=== PATIENT | male | born 1945 | race Two or more races ===

== ENCOUNTER → 2020-08-01 10:05 | Outpatient (BNVA) | payer MEDICARE, SELFPAY | PROVIDERS: PCP Family Medicine; Referring Provider Family Medicine; Visit Provider Surgery | DX: K42.9 Umbilical hernia without obstruction or gangrene (principal) | CPT/HCPCS: 99203; 99214 ==

== ENCOUNTER 2020-08-23 08:37 | Day surgery (SDC) | payer MEDICARE, SELFPAY ==
[2020-08-21 21:08] VITALS: BMI 26.6
--- NOTE | 2020-08-22 12:29 | HO.ANESPROP2 ---
Documented by User: Melani Agrawal 08/22/20 13:40 HPI - Anesthesia Eval Consult details Narrative: 74yo M for Umbilical hernia repair [facility] Past Medical History Medical History (Updated 08/22/20 @ 13:40 by Melani Agrawal) Arthritis Asthma COPD (chronic obstructive pulmonary disease) GERD (gastroesophageal reflux disease) History of prostate cancer HTN (hypertension) Family History Family History Mother History of breast cancer, Onset Age: 87 Father History of asthma Surgical History Surgical History History of arthroscopy of left shoulder History of colonoscopy History of prostate surgery History of removal of cyst History of tonsillectomy and adenoidectomy Social History Social History (Updated 08/23/20 @ 09:55 by Michelle Elizabeth) Alcohol intake: former Smoking Status: Current every day smoker Packs Per Day: 0.33 Cigarettes Per Day: 6.6 Smoked in Last 30 Days: Yes Patient Interested in Nicotine Replacement: No Use of substances other than those prescribed or required for medical reasons: No Advance Directives: No Advance Directives Information Provided: No Advance Directives on File: No Meds Allergies Allergy/AdvReac Type Severity Reaction Status Date / Time lisinopril [LISINOPRIL] Allergy Severe Angioedema Verified 08/23/20 09:46 leflunomide Allergy Unknown Unknown Verified 08/23/20 09:46 LAITH inhibitors AdvReac Unknown angioedema Uncoded 08/23/20 09:46 Home Medications Medication Instructions Recorded Confirmed Type albuterol sulfate 90 mcg/actuation 2 puff INHALATION Q4H PRN 08/01/20 08/21/20 History aerosol inhaler amlodipine 5 mg tablet 5 mg PO DAILY 08/01/20 08/21/20 History atorvastatin 40 mg tablet 40 mg PO BEDTIME 08/01/20 08/21/20 History cholecalciferol (vitamin D3) 25 25 mcg PO DAILY 08/01/20 08/21/20 History mcg (1,000 unit) tablet docusate sodium 100 mg capsule 100 mg PO BID 08/01/20 08/21/20 History fluticasone propionate 220 2 puff INHALATION BID 08/01/20 08/21/20 History mcg/actuation HFA aerosol inhaler hydroxychloroquine 200 mg tablet 200 mg PO BID 08/01/20 08/21/20 History melatonin 3 mg tablet 3 mg PO BEDTIME PRN 08/01/20 08/21/20 History omeprazole 20 mg capsule,delayed 20 mg PO QAM 08/01/20 08/21/20 History release oxycodone 5 mg tablet 5 mg PO BID PRN 08/01/20 08/21/20 History prednisone 5 mg tablet 5 mg PO DAILY 08/01/20 08/21/20 History sennosides 8.6 mg tablet 17.2 mg PO BEDTIME PRN 08/01/20 08/21/20 History sulfasalazine 500 mg 1,000 mg PO BID 08/01/20 08/21/20 History tablet,delayed release tofacitinib 10 mg tablet 10 mg PO BID 08/01/20 08/21/20 History umeclidinium 62.5 mcg/actuation 1 inh INHALATION BEDTIME 08/01/20 08/21/20 History blister powder for inhalation Exam Exam Date and Time: August 22, 2020 1229 Height,Weight and Vital Signs: Height 5 ft 6 in Weight 74.843 kg Assessment and Plan Assessment Anesthesia Assessment: Chart Reviewed Documented by User: Michelle Elizabeth 08/23/20 10:36 [facility] Past Medical History Medical History (Updated 08/22/20 @ 13:40 by Melani Agrawal) Arthritis Asthma COPD (chronic obstructive pulmonary disease) GERD (gastroesophageal reflux disease) History of prostate cancer HTN (hypertension) Family History Family History Mother History of breast cancer, Onset Age: 87 Father History of asthma Family history of problems with anesthesia: No Surgical History Surgical History History of arthroscopy of left shoulder History of colonoscopy History of prostate surgery History of removal of cyst History of tonsillectomy and adenoidectomy History of Problems with Anesthesia: No Social History Social History (Updated 08/23/20 @ 09:55 by Michelle Elizabeth) Alcohol intake: former Smoking Status: Current every day smoker Packs Per Day: 0.33 Cigarettes Per Day: 6.6 Smoked in Last 30 Days: Yes Patient Interested in Nicotine Replacement: No Use of substances other than those prescribed or required for medical reasons: No Advance Directives: No Advance Directives Information Provided: No Advance Directives on File: No Meds Allergies Allergy/AdvReac Type Severity Reaction Status Date / Time lisinopril [LISINOPRIL] Allergy Severe Angioedema Verified 08/23/20 09:46 leflunomide Allergy Unknown Unknown Verified 08/23/20 09:46 LAITH inhibitors AdvReac Unknown angioedema Uncoded 08/23/20 09:46 Home Medications Medication Instructions Recorded Confirmed Type albuterol sulfate 90 mcg/actuation 2 puff INHALATION Q4H PRN 08/01/20 08/21/20 History aerosol inhaler amlodipine 5 mg tablet 5 mg PO DAILY 08/01/20 08/21/20 History atorvastatin 40 mg tablet 40 mg PO BEDTIME 08/01/20 08/21/20 History cholecalciferol (vitamin D3) 25 25 mcg PO DAILY 08/01/20 08/21/20 History mcg (1,000 unit) tablet docusate sodium 100 mg capsule 100 mg PO BID 08/01/20 08/21/20 History fluticasone propionate 220 2 puff INHALATION BID 08/01/20 08/21/20 History mcg/actuation HFA aerosol inhaler hydroxychloroquine 200 mg tablet 200 mg PO BID 08/01/20 08/21/20 History melatonin 3 mg tablet 3 mg PO BEDTIME PRN 08/01/20 08/21/20 History omeprazole 20 mg capsule,delayed 20 mg PO QAM 08/01/20 08/21/20 History release oxycodone 5 mg tablet 5 mg PO BID PRN 08/01/20 08/21/20 History prednisone 5 mg tablet 5 mg PO DAILY 08/01/20 08/21/20 History sennosides 8.6 mg tablet 17.2 mg PO BEDTIME PRN 08/01/20 08/21/20 History sulfasalazine 500 mg 1,000 mg PO BID 08/01/20 08/21/20 History tablet,delayed release tofacitinib 10 mg tablet 10 mg PO BID 08/01/20 08/21/20 History umeclidinium 62.5 mcg/actuation 1 inh INHALATION BEDTIME 08/01/20 08/21/20 History blister powder for inhalation Exam Height,Weight and Vital Signs: Vital Signs Temp Pulse Resp BP Pulse Ox 08/23/20 08:57 98.6 F 71 16 132/75 96 Airway Mallampati Class: II TM Dist: >3cm Neck ROM: Full Loose/Missing/Broken Teeth: Yes (Only few teeth-mostly broken) Heart: RRR+?systolic murmur Lungs: CTAB Assessment and Plan Assessment Anesthesia Assessment: Anesthesia Plan Discussed and Chart Reviewed Final Anesthetic Review NPO: Yes ASA Class: III Final Preanesthetic Review: No Changes in Pt Med Stat, Meds/Allgs Chart Reviewed, Consent Obtained/Reviewed and Anes Risks/Benef Reviewed Patient Risk: Intermediate Procedure Risk: Low Anesthetic Plan Disposition: Standard PACU
[2020-08-23] VITALS (15 sets, daily range): BP systolic 124–159; BP diastolic 73–95; PULSE 68–76; RESP 14–16; TEMP 36.9–37; O2SAT 93–96
[2020-08-23] MEDS: ceFAZolin Sodium/Dextrose,Iso 2 GM/50 ML PIGGYBACK IV (09:38)
[2020-08-23] MEDS: Lactated Ringers 1,000 ML 100 ML IVCONT (09:39)
--- NOTE | 2020-08-23 10:01 | MHC.SHP ---
Pre-Procedural Eval Section B Chief Complaint: Umbilical Hernia Without Obstruction or Gangrene Allergies: Allergies Allergy/AdvReac Type Severity Reaction Status Date / Time lisinopril [LISINOPRIL] Allergy Severe Angioedema Verified 08/23/20 09:46 leflunomide Allergy Unknown Unknown Verified 08/23/20 09:46 LAITH inhibitors AdvReac Unknown angioedema Uncoded 08/23/20 09:46 Plan Patient has been examined and remains a candidate for the planned procedure
--- NOTE | 2020-08-23 10:57 | PM.OP ---
Brief Operative Note Date of procedure: 08/23/20 Pre-op diagnosis: umbilical hernia Post-op diagnosis: same Procedure: repair of umbilical hernia with mesh Surgeon: Fantasma Neves MD Anesthesia: [facility] Medical Management Trainer: Aga Silva Estimated blood loss (mL): 5 Pathology: none sent Condition: stable Disposition: PACU
[2020-08-23] MEDS: fentaNYL citrate/PF 100 MCG/2 ML VIAL 25 MCG IVPUSH ×4 (11:12→11:40)
[2020-08-23] MEDS: Acetaminophen 325 MG TABLET 650 MG PO (11:41)
[2020-08-23] MEDS: oxyCODONE HCl Immed Release 5 MG TABLET PO ×2 (11:42→12:53)
--- NOTE | 2020-08-23 11:59 | OP_ITS ---
SURGEON: Fantasma Neves MD INDICATIONS: The patient is a 74-year-old male with a large reducible mass in the umbilicus, consistent with an umbilical hernia. The defect measured about almost 3 cm. He wanted to proceed with repair because of symptoms. He understood technique of repair with mesh and he was aware of the risks, benefits, and alternatives. PREOPERATIVE DIAGNOSIS: Umbilical hernia. POSTOPERATIVE DIAGNOSIS: Umbilical hernia. PROCEDURE PERFORMED: Repair of umbilical hernia with Ventralex mesh. ESTIMATED BLOOD LOSS: COMPLICATIONS: ANESTHESIA: ASSISTANTS: Aga Silva PA-C. SPECIMENS: DESCRIPTION OF PROCEDURE: He was brought to the operating room and placed supine on the table under general anesthesia via laryngeal mask airway. The abdomen was prepped and draped in usual sterile fashion. A surgical time-out was done. The patient received cefazolin 2 g IV preoperatively. A small supraumbilical curvilinear incision was made in the skin using blade #15 after infiltrated using lidocaine 1%. This was carried down to full-thickness skin and subcutaneous fat down to the fascia. We then proceeded to gently dissect the umbilicus off the hernia sac with sharp dissection using Metzenbaum scissors. We lifted the umbilicus as a flap and continued to separate the entire hernia off this. The entire sac visualized, proceeded to dissect down to the fascial defect. This was a circular defect about 3 cm in diameter. We continued to separate the entire sac and its contents off the fascial edges until I was able to completely reduce this. The underside of the fascial defect was clear of any adhesions. I therefore used a medium-sized Ventralex mesh. This was positioned under the abdominal wall and was flattened. It was secured to the fascial edge using Prolene straps on each side with Prolene 2-0 sutures. The Prolene straps were trimmed. I closed the fascial defect with a running Maxon 1 stitch. The umbilicus was tacked down to the fascia using Dexon 3-0 stitch to re-create the dimple. The subcutaneous layer was reapposed with Dexon 3-0 sutures. The skin closure achieved with Dexon 4-0 subcuticular running stitch. Steri-Strips and dressings were applied. The incision was infiltrated with Marcaine 0.5% for postop analgesia. The procedure was completed. The patient tolerated procedure well. There were no complications noted. Initial and final counts of sponges and instruments were correct. Estimated blood loss was minimal. The patient was extubated without difficulty and transferred to recovery room with stable vital signs. MD SIDDHARTH Shelton/MARYA / [phone]
[2020-08-23] MEDS: fentaNYL citrate/PF 100 MCG/2 ML VIAL 50 MCG IVPUSH ×2 (12:26→12:31)
--- NOTE | 2020-08-23 13:44 | HO.POSTANES ---
Post Anesthesia Evaluation Post Anesthesia Evaluation Vital Signs: Vital Signs Temp Pulse Resp BP Pulse Ox 08/23/20 13:06 75 16 150/81 H 95 08/23/20 12:51 76 16 152/83 H 95 08/23/20 12:36 75 16 139/75 95 08/23/20 12:31 73 16 146/85 H 94 08/23/20 12:26 70 16 150/91 H 94 08/23/20 12:09 68 16 142/88 H 94 08/23/20 11:55 69 16 159/95 H 94 08/23/20 11:35 16 08/23/20 11:27 14 08/23/20 11:21 70 15 141/80 H 93 08/23/20 11:17 70 14 138/79 94 08/23/20 11:12 14 08/23/20 11:11 68 16 133/73 93 08/23/20 11:01 98.4 F 72 15 124/77 93 08/23/20 08:57 98.6 F 71 16 132/75 96 Anesthesia: General LMA Mental Status: Awake Pain Control: Satisfactory Nausea/Vomiting: None Hydration: Adequate Anesthesia-Related Issues: No Anes. Related Issues
== END 2020-08-23 13:50 | disposition home or self-care (01) ==
PROVIDERS: PCP Family Medicine; Visit Provider Surgery
PROC: (CPT 49585; principal; 2020-08-23 10:30)
DX: K42.9 Umbilical hernia without obstruction or gangrene (principal); I10 Essential (primary) hypertension; J44.9 Chronic obstructive pulmonary disease, unspecified; E78.5 Hyperlipidemia, unspecified; K21.9 Gastro-esophageal reflux disease without esophagitis; Z79.51 Long term (current) use of inhaled steroids; Z79.52 Long term (current) use of systemic steroids; Z79.899 Other long term (current) drug therapy; F17.210 Nicotine dependence, cigarettes, uncomplicated; Z85.46 Personal history of malignant neoplasm of prostate; Z88.8 Allergy status to other drugs, medicaments and biological substances
CPT/HCPCS: 49585; C1781; J0690; J1100; J2250; J2405; J3010

== ENCOUNTER → 2020-09-02 09:05 | Outpatient (BNVA) | payer MEDICARE, SELFPAY | PROVIDERS: PCP Family Medicine; Visit Provider Surgery | DX: Z09 Encounter for follow-up examination after completed treatment for conditions other than malignant neoplasm (principal); Z87.19 Personal history of other diseases of the digestive system | CPT/HCPCS: 99212 ==

== ENCOUNTER 2020-09-09 09:57 | Emergency (ER) | payer MEDICARE, SELFPAY ==
[2020-09-09 11:25] VITALS: BP 141/83; PULSE 89; RESP 16; O2SAT 97; BMI 24.7
[2020-09-09 11:31] VITALS: TEMP 36.7
--- NOTE | 2020-09-09 11:35 | ED_ITS ---
HPI - Extremity Problem General Chief complaint: Extremity Problem Stated complaint: shoulder pain,no inj Time Seen by Provider: 09/09/20 11:24 Source: patient Mode of arrival: ambulatory Limitations: no limitations History of Present Illness HPI Narrative: 74-year-old male with a past history of arthritis on daily 5 mg of prednisone, asthma, COPD, GERD, history of prostate cancer, hypertension here with left shoulder pain for the last 2 days. The patient tells me he has chronic left shoulder pain secondary to arthritis. He has oxycodone 5 mg at home which he takes as needed for pain. He tells me he took a dose this morning but continued to have pain. 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 He tells me he is here for a coritsone injection which typically helps his pain. No injury or trauma MD Complaint: extremity pain Onset (ago): day(s) Pain Consistency: constant Location: left Quality: aching Radiation: none Relieving factors: nothing Exacerbating factors: nothing Associated symptoms: denies other symptoms Related Data Home Medications Medication Instructions Recorded Confirmed albuterol sulfate 90 mcg/actuation 2 puff INHALATION Q4H PRN 08/01/20 08/21/20 aerosol inhaler amlodipine 5 mg tablet 5 mg PO DAILY 08/01/20 08/21/20 atorvastatin 40 mg tablet 40 mg PO BEDTIME 08/01/20 08/21/20 cholecalciferol (vitamin D3) 25 25 mcg PO DAILY 08/01/20 08/21/20 mcg (1,000 unit) tablet docusate sodium 100 mg capsule 100 mg PO BID 08/01/20 08/21/20 fluticasone propionate 220 2 puff INHALATION BID 08/01/20 08/21/20 mcg/actuation HFA aerosol inhaler hydroxychloroquine 200 mg tablet 200 mg PO BID 08/01/20 08/21/20 melatonin 3 mg tablet 3 mg PO BEDTIME PRN 08/01/20 08/21/20 omeprazole 20 mg capsule,delayed 20 mg PO QAM 08/01/20 08/21/20 release prednisone 5 mg tablet 5 mg PO DAILY 08/01/20 08/21/20 sennosides 8.6 mg tablet 17.2 mg PO BEDTIME PRN 10/01/20 10/21/20 sulfasalazine 500 mg 1,000 mg PO BID 08/01/20 08/21/20 tablet,delayed release tofacitinib 10 mg tablet 10 mg PO BID 08/01/20 08/21/20 umeclidinium 62.5 mcg/actuation 1 inh INHALATION BEDTIME 08/01/20 08/21/20 blister powder for inhalation Previous Rx's Medication Instructions Recorded alendronate 70 mg tablet 70 mg PO QWEEK #12 tab 08/20/20 oxycodone-acetaminophen [Percocet] 1 - 2 tab PO Q4-6H PRN #30 tab 08/23/20 cyclobenzaprine 10 mg PO TID PRN #10 tab 09/09/20 Allergies Allergy/AdvReac Type Severity Reaction Status Date / Time lisinopril [LISINOPRIL] Allergy Severe Angioedema Verified 08/23/20 09:46 leflunomide Allergy Unknown Unknown Verified 08/23/20 09:46 LAITH inhibitors AdvReac Unknown angioedema Uncoded 08/23/20 09:46 Review of Systems Review of Systems: Yes all other systems are reviewed and are negative Constitutional: Constitutional: Reports no additional constitutional complaints, Denies body ache(s), Denies chills, Denies fever(s), Denies headache(s) and Denies weakness Eyes: Eyes: Reports no additional eye complaints and Denies change in vision ENT: Reports system reviewed and no additional complaints, except as documented, Denies dizziness, Denies headache(s), Denies nasal congestion, Denies nasal discharge and Denies neck pain Cardiovascular: Cardiovascular: Reports no additional cardiovascular complaints, Denies chest pain, Denies leg edema and Denies dyspnea Respiratory: Respiratory: Reports no additional respiratory complaints, Denies cough and Denies dyspnea Gastrointestinal: Gastrointestinal: Reports no additional gastrointestinal complaints, Denies abdominal pain, Denies diarrhea, Denies nausea and Denies vomiting Genitourinary: Genitourinary: Denies urinary incontinence Musculoskeletal: Musculoskeletal: Reports no additional musculoskeletal complaints, Denies back pain, Reports arthralgias, Reports joint swelling, Reports limited range of motion, Denies neck pain, Denies numbness and Denies tingling Integumentary/Breasts: Skin/Breast: Reports system reviewed and no additional complaints, except as docu and Denies rash Neurologic: Reports system reviewed and no additional complaints, except as documented, Denies Abnormal speech present, Denies dizziness, Denies headache(s), Denies numbness, Denies tingling and Denies weakness PMFSH Past Medical History Attestation statement: The following information was validated with the patient. Source: obtained from family and nursing notes reviewed Medical History Arthritis Asthma COPD (chronic obstructive pulmonary disease) GERD (gastroesophageal reflux disease) History of prostate cancer HTN (hypertension) Surgical History History of arthroscopy of left shoulder History of colonoscopy History of prostate surgery History of removal of cyst History of tonsillectomy and adenoidectomy Family History Family History Mother History of breast cancer, Onset Age: 87 Father History of asthma Social History Social History Alcohol intake: former Smoking Status: Current every day smoker Packs Per Day: 0.33 Cigarettes Per Day: 6.6 Smoked in Last 30 Days: No Use of substances other than those prescribed or required for medical reasons: No Advance Directives: No Advance Directives Information Provided: Yes Physical Exam Vital Signs: Vital Signs: Last Vital Signs Temp 98.1 F 09/09/20 11:31 Pulse 89 09/09/20 11:25 Resp 16 09/09/20 11:25 BP 141/83 H 09/09/20 11:25 Pulse Ox 97 09/09/20 11:25 Body Mass Index 24.7 Const: General: cooperative, healthy appearing, comfortable and no acute distress Orientation/consciousness: patient oriented x3 Limitations: no limitations HENMT: Head: Yes normal to inspection Ears: hearing grossly normal bilaterally General nose exam: Normal external nose present Face and sinus: Yes normal facial exam Mouth: Normal oral and palatal mucosa present Throat: Yes posterior oropharynx normal Eyes: General: appearance normal, both eyes and all related structures Pupils: Equal, round and reactive pupils present Neck: Neck: Yes normal visual inspection Chest: Chest palpation & inspection: normal inspection of the chest Resp: Effort & Inspection: normal respiratory effort Auscultation: clear to auscultation bilaterally Cardio: Rate: regular rate Rhythm: regular rhythm Peripheral pulses: Peripheral pulses 2+ throughout GI: Inspection: Yes normal to inspection Palpation (GI): Soft to palpation and nontender Auscultation: normal bowel sounds Back/Spine/Pelvis: Thoracic/Lumbar Spine: thoracic and lumbar spine normal to inspection Skin: General skin exam: no rashes or lesions noted Neuro: General: patient oriented x3, no focal motor deficits and normal sensation to monofilament Cranial nerves: Yes Equal, round and reactive pupils present Cognition (Neuro): normal cognition Speech: No Abnormal speech present Gait exam (Neuro): Normal gait present Motor exam (neuro): 5/5 motor strength present throughout Extrem: Other: anterior left shoulder pain with no obvious swelling, warmth or redness. The patient has pain with abduction of the left shoulder. No weakness. No reports of numbness or tingling. Neurovascularly intact distally General: Yes normal to inspection Course Course Course Narrative: exam is consistent with arthritic flare of the left shoulder. There is no injury or trauma the patient has pain with palpation and movement of the extremity. Unrelieved with his prednisone and oxycodone at home. Patient is here seeking a cortisone injection. I did explain to him that we cannot do that here in the emergency department. He already has an outpatient appointment this week with rheumatology for an injection. I discussed with him that he can take 2 tablets of his oxycodone at home as he has enough supply. Will add Flexeril. We discussed supportive care at home. Reviewed worrisome signs and symptoms of when to return to the emergency department. Comfortable with discharge home. Discharge Plan Discharge Clinical Impression: Arthritis Patient Disposition: Home, Self-Care Instructions: Arthritis (ED) Additional Instructions: ice the area Gentle stretching You may take 2 tablets of her oxycodone at home every 4-6 hours. We will start to also on some Flexeril. Keep your appointment this Wednesday with your process control board operator Prescriptions: New cyclobenzaprine 10 mg tablet 10 mg PO TID PRN (Reason: muscle spasm) Qty: 10 RF: 0 No Action alendronate 70 mg tablet 70 mg PO QWEEK Qty: 12 RF: 1 oxycodone-acetaminophen [Percocet] 5-325 mg tablet 1 - 2 tab PO Q4-6H PRN (Reason: pain) Qty: 30 RF: 0 Referrals: Daisha Crane MD [Primary Care Provider] - 2 days Interventions: ED Discharge Assessment Last Done: 09/09/20 11:52 Discharge Date/Time: 09/09/20 12:05
== END 2020-09-09 12:05 | disposition home or self-care (01) ==
PROVIDERS: Emergency Provider Emergency Medicine; PCP Family Medicine
DX: M19.012 Primary osteoarthritis, left shoulder (principal); M25.512 Pain in left shoulder; I10 Essential (primary) hypertension; Z79.899 Other long term (current) drug therapy
CPT/HCPCS: 99283; 99284

== ENCOUNTER → 2020-09-13 09:06 | Outpatient (BNVA) | payer MEDICARE, SELFPAY | PROVIDERS: PCP Family Medicine; Referring Provider Family Medicine; Visit Provider Student in an Organized Health Care Education/Training Program | DX: M05.9 Rheumatoid arthritis with rheumatoid factor, unspecified (principal); M25.512 Pain in left shoulder; M10.9 Gout, unspecified; M81.0 Age-related osteoporosis without current pathological fracture; Z79.52 Long term (current) use of systemic steroids; Z79.899 Other long term (current) drug therapy | CPT/HCPCS: 20610; 99212 ==

== ENCOUNTER 2020-09-24 09:44 | Outpatient (REF) | payer MEDICARE, SELFPAY ==
--- NOTE | 2020-09-24 09:50 | XR_ITS ---
EXAMINATION: XR SHOULDER, LEFT CLINICAL INFORMATION: Rheumatoid arthritis COMPARISON: Previous x-ray September 2010 TECHNIQUE: AP external rotation, Grashey, scapular Y, and axillary views of the left shoulder. FINDINGS: The bones are osteopenic. No fracture or dislocation is seen. There are small osteophytes at the glenohumeral joint. There is joint space narrowing and osteophyte formation at the acromioclavicular joint. The humeral head appears slightly high with respect to the glenoid and there are cystic changes in the greater tuberosity questionable for for rotator cuff disease. Findings are similar to September 2010 exam. Soft tissues are unremarkable. XR/XR shoulder LT min 2V IMPRESSION: Mild arthritis. High humeral head questionable for rotator cuff disease.
== END 2020-09-24 09:45 | disposition home or self-care (01) ==
LOC: HO.XRAY 09:44
PROVIDERS: PCP Family Medicine; Visit Provider Student in an Organized Health Care Education/Training Program
DX: M05.9 Rheumatoid arthritis with rheumatoid factor, unspecified (principal)
CPT/HCPCS: 73030

== ENCOUNTER → 2020-10-23 13:51 | Outpatient (BNVA) | payer MEDICARE, SELFPAY | PROVIDERS: PCP Family Medicine; Visit Provider Surgery | DX: L02.31 Cutaneous abscess of buttock (principal) | CPT/HCPCS: 10061; 99212 ==

== ENCOUNTER 2020-10-31 08:50 | Outpatient (REF) | payer MEDICARE, SELFPAY ==
--- NOTE | 2020-10-31 08:52 | MR_ITS ---
EXAMINATION: MRI LEFT SHOULDER WITHOUT CONTRAST CLINICAL INFORMATION: Left shoulder pain. COMPARISON: Radiograph dated 09/24/2020 TECHNIQUE: MR images of the shoulder were obtained on a 1.5 Shantal high-field strength scanner without intravenous contrast material. FINDINGS: ROTATOR CUFF: An insertional tear of the supraspinatus tendon measures 1.3 cm AP, involving its posterior fibers to a greater extent. This tear is likely articular sided with delamination and retraction of the articular sided fibers up to 1.3 cm . The tear involves up to three quarters of the tendon thickness. There is mild infraspinatus tendinosis without a discrete tear. Intramuscular edema signal infraspinatus at the myotendinous junction. Teres minor is normal. A chronic, articular sided partial tear of the subscapularis tendon is estimated to measure 1.3 x 1.0 cm in area and involves approximately one third to one half of the overall tendon cross-section. There is mild atrophy of the subscapularis muscle with grade 1 fatty replacement. Grade 1 fatty replacement is also present at the infraspinatus and supraspinatus myotendinous junctions. As noted above, there is intramuscular edema signal within the infraspinatus near the level of the glenohumeral joint line. BICEPS: Chronically torn and distally retracted. CORACOACROMIAL ARCH: The undersurface of the acromion is remodeled as result of prior acromioplasty. Scar tissue is present in the subacromial subdeltoid bursa. There is mild to moderate and acromioclavicular osteoarthritis. No subacromial spur. LABRUM/CAPSULE: Capsule undersurface fraying is present at the superior labrum. No tears. GLENOHUMERAL JOINT/MARROW: Small marginal osteophytes are present at the humeral head and glenoid, more pronounced inferiorly. There is mild nonuniform chondral thinning at the glenoid superiorly. Subcortical cystic change and cortical irregularity are present humeral head superiorly and posteriorly. MR/MR shoulder LT wo con IMPRESSION: 1. A 1.3 x 1.3 cm partial-thickness articular sided tear of the supraspinatus tendon involving three quarters of the tendon thickness. 2. 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 3. Mild edema signal within the infraspinatus muscle along the margin of the myotendinous junction, potentially due to a strain. 4. Chronically torn and distally retracted biceps tendon 4. Mild to moderate acromioclavicular osteoarthritis and more mild glenohumeral osteoarthritis
== END 2020-10-31 08:51 | disposition home or self-care (01) ==
LOC: HO.MRI 08:50
PROVIDERS: Visit Provider Student in an Organized Health Care Education/Training Program
DX: M67.912 Unspecified disorder of synovium and tendon, left shoulder (principal)
CPT/HCPCS: 73221

== ENCOUNTER → 2020-11-15 10:41 | Outpatient (BNVA) | payer MEDICARE, SELFPAY | PROVIDERS: PCP Family Medicine; Visit Provider Orthopaedic Surgery | DX: M75.42 Impingement syndrome of left shoulder (principal) | CPT/HCPCS: 99202 ==

== ENCOUNTER → 2020-11-20 08:54 | Outpatient (BNVA) | payer MEDICARE, SELFPAY | PROVIDERS: PCP Family Medicine; Visit Provider Surgery | DX: L02.91 Cutaneous abscess, unspecified (principal) | CPT/HCPCS: 99212 ==

== ENCOUNTER 2020-12-31 09:00 | Outpatient (RCR) | payer MEDICARE, SELFPAY ==
--- NOTE | 2020-12-05 11:32 | MHC.PT.EP ---
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 FUNCTIONAL LIMITATIONS INCLUDE DECR PERF OF > SH HEIGHT ADLs, LIFTING, CARRYING, SLEEPING, AND MORE PHYS DEMANDING ADLs. Pt WOULD BENEFIT FROM PT TO ADDRESS THE ABOVE OBJECTIVE FINDINGS AND IMPROVE SELF-SX MGMT. Frequency and Duration: The patient will be seen 2 x wk X 4 wks Short Term Goals: Pt'S PAIN DECR TO 2-3/10 W REG ADLs IN 2 WKS Pt DEMON INDEP SELF CORRECT OF POSTURE IN 2 WKS Outpatient Phlebotomist Goals: Pt INDEP W HEP ADDRESSING ROM AND STRENGTH AND SELF-SX MGMT TECHN IN 4 WKS Pt DEMON INCR ADL AND ACTIVITY BRANDI EVIDENT IN IMPROVED SPADI SCORE BY 15 POINTS (AT EVAL 88/130) IN 4 WKS Treatment Plan: Modalities to reduce pain, spasms and effusion. Manual therapy to restore motion and function. Therapeutic exercise to improve strength and flexibility. Neuromuscular re-education for posture and balance. Therapeutic activities to return to functional activities of daily living. Electronically signed by: Mariah Blount, PT Please sign and return to therapist. Thank you for your referral.
== END 2021-06-02 08:30 | disposition home or self-care (01) ==
LOC: HO.PT 09:00
PROVIDERS: PCP Family Medicine; Visit Provider Orthopaedic Surgery
DX: M75.42 Impingement syndrome of left shoulder (principal)
CPT/HCPCS: 97110; 97162

== ENCOUNTER 2020-12-31 10:05 | Outpatient (REF) | payer MEDICARE, SELFPAY ==
--- NOTE | ~2020-12-31 | XR_ITS ---
EXAMINATION: XR SHOULDER, RIGHT CLINICAL INFORMATION: Rheumatoid arthritis with rheumatoid factor COMPARISON: None TECHNIQUE: AP external rotation, Grashey, scapular Y, and axillary views of the right shoulder. FINDINGS: There is mild hypertrophic changes along the lateral humeral head and enthesophytes along the acromion hypertrophic spurring along the AC joint. No loose bodies, acute fracture or dislocation seen. There are several disease seen on the humeral head and neck right the osteopenia. XR/XR shoulder RT min 2V IMPRESSION: Mild degenerative changes along the AC joint spur lateral acromion and lateral humeral head.
== END 2020-12-31 10:06 | disposition home or self-care (01) ==
LOC: HO.XRAY 10:05
PROVIDERS: PCP Family Medicine; Visit Provider Student in an Organized Health Care Education/Training Program
DX: M05.9 Rheumatoid arthritis with rheumatoid factor, unspecified (principal)
CPT/HCPCS: 73030

== ENCOUNTER 2021-01-02 09:04 | Outpatient (REF) | payer MEDICARE, SELFPAY ==
[2021-01-02 09:51] LABS: MANUAL DIFF FLAG NO
[2021-01-02 09:57] LABS: Basophils Percent Auto 0.4 % (0-2); Eosinophils Absolute Auto 0.1 X10*3/uL (0.0-0.4); Eosinophils Percent Auto 0.9 % (0-4); Hematocrit 39.5 % (42-52); Hemoglobin 12.6 g/dl (14.0-18.0); Imm Gran Abs Auto 0.05 X10*3/uL (0.00-0.03); Imm Gran Pct Auto 0.5 % (0.0-0.4); Lymphocytes Absolute Auto 1.2 X10*3/uL (1.2-4.9); Lymphocytes Percent Auto 11.6 % (20-40); Mean Corpuscular HGB Conc 31.9 g/dl (31.0-36.0); Mean Corpuscular Hemoglobin 28.3 pg (27.0-33.0); Mean Corpuscular Volume 88.6 fL (80-98); Mean Platelet Volume 9.3 fL (9.4-12.4); Monocytes Absolute Auto 0.7 X10*3/uL (0.1-1.2); Monocytes Percent Auto 6.5 % (2-11); Neutrophils Absolute Auto 8.4 X10*3/uL (2.0-8.3); Neutrophils Percent Auto 80.1 % (45-73); Platelet Count 305 X10*3/uL (160-400); Red Blood Count 4.46 X10*6/uL (4.60-5.80); Red Cell Distribution Width 18.2 % (11.0-16.0); White Blood Count 10.5 X10*3/uL (4.8-10.8)
[2021-01-02 10:25] LABS: Alanine Aminotransferase 18 U/L (0-40); Albumin Level 4.3 g/dL (3.5-5.0); Alkaline Phosphatase 123 U/L (39-117); Anion Gap 13 (12-20); Aspartate Amino Transferase 13 U/L (5-37); Bilirubin Total 0.4 mg/dL (0.0-1.0); Blood Urea Nitrogen 7 mg/dL (9-16); C Reactive Protein 4.83 mg/dL (< or = 0.50); Calcium 9.4 mg/dL (8.4-10.2); Carbon Dioxide 23 mmol/L (22-29); Chloride 106 mmol/L (96-108); Estimated Glomerular Filt Rate > 60; Glucose Random 144 mg/dL (60-115); Potassium 3.8 mmol/L (3.3-5.1); Sodium 138 mmol/L (135-145); Total Protein 7.2 g/dL (6.5-8.0)
[2021-01-02 10:53] LABS: Erythrocyte Sedimentation Rate 51 MM/HR (0-15)
== END 2021-01-02 09:05 | disposition home or self-care (01) ==
LOC: HO.LAB 09:04
PROVIDERS: PCP Family Medicine; Visit Provider Student in an Organized Health Care Education/Training Program
DX: M05.9 Rheumatoid arthritis with rheumatoid factor, unspecified (principal)
CPT/HCPCS: 36415; 80053; 85025; 85652; 86140

== ENCOUNTER 2021-01-21 08:45 | Day surgery (SDC) | payer MEDICARE, SELFPAY ==
--- NOTE | 2021-01-20 08:56 | P.CONAN_ITS ---
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) Osteoporosis (Acute) Seropositive rheumatoid arthritis (Acute) Umbilical hernia (Acute) Past Medical History Medical History Abscess Arthritis Asthma COPD (chronic obstructive pulmonary disease) GERD (gastroesophageal reflux disease) History of prostate cancer HTN (hypertension) 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 Osteoporosis Seropositive rheumatoid arthritis Family History Family History Mother History of breast cancer, Onset Age: 87 Father History of asthma Surgical History Surgical History History of arthroscopy of left shoulder History of back surgery History of colonoscopy History of prostate surgery History of removal of cyst History of tonsillectomy and adenoidectomy Hx of eye surgery Social History Social History (Updated 01/21/21 @ 10:31 by Michelle Elizabeth) Alcohol intake: former Smoking Status: Current every day smoker Packs Per Day: 0.33 Cigarettes Per Day: 6.6 Smoked in Last 30 Days: Yes Use of substances other than those prescribed or required for medical reasons: No Advance Directives: No Advance Directives Information Provided: Yes Meds Allergies Allergy/AdvReac Type Severity Reaction Status Date / Time lisinopril [LISINOPRIL] Allergy Severe Angioedema Verified 01/21/21 10:24 leflunomide Allergy Unknown Unknown Verified 01/21/21 10:24 LAITH inhibitors AdvReac Unknown angioedema Uncoded 08/23/20 09:46 Home Medications Medication Instructions Recorded Confirmed Last Taken Type albuterol sulfate 90 mcg/actuation 2 puff INHALATION Q4H PRN 08/01/20 11/20/20 08/23/20 07:30 History aerosol inhaler atorvastatin 40 mg tablet 40 mg PO BEDTIME 08/01/20 11/20/20 Unknown History cholecalciferol (vitamin D3) 25 25 mcg PO DAILY 10/01/20 01/20/21 Unknown History mcg (1,000 unit) tablet docusate sodium 100 mg capsule 100 mg PO BID 08/01/20 11/20/20 Unknown History fluticasone propionate 220 2 puff INHALATION BID 08/01/20 11/20/20 Unknown History mcg/actuation HFA aerosol inhaler melatonin 3 mg tablet 3 mg PO BEDTIME PRN 08/01/20 11/20/20 Unknown History omeprazole 20 mg capsule,delayed 20 mg PO QAM 08/01/20 11/20/20 08/23/20 07:30 History release sennosides 8.6 mg tablet 17.2 mg PO BEDTIME PRN 08/01/20 11/20/20 Unknown History umeclidinium 62.5 mcg/actuation 1 inh INHALATION BEDTIME 08/01/20 11/20/20 Unknown History blister powder for inhalation amlodipine 5 mg tablet 10 mg PO DAILY tab 12/04/20 Unknown History Exam Exam Date and Time: January 20, 2021 0856 Pertinent Lab Results Pertinent Lab Results: Laboratory Tests 01/02/21 01/02/21 09:25 09:25 WBC 10.5 Hgb 12.6 L Hct 39.5 L Plt Count 305 Sodium 138 Potassium 3.8 Chloride 106 Carbon Dioxide 23 BUN 7 L Creatinine 0.67 Assessment and Plan Assessment Anesthesia Assessment: Chart Reviewed Documented by User: Michelle Elizabeth 01/21/21 10:34 [facility] Past Medical History Medical History Abscess Arthritis Asthma COPD (chronic obstructive pulmonary disease) GERD (gastroesophageal reflux disease) History of prostate cancer HTN (hypertension) 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 Osteoporosis Seropositive rheumatoid arthritis Family History Family History Mother History of breast cancer, Onset Age: 87 Father History of asthma Family history of problems with anesthesia: No Surgical History Surgical History History of arthroscopy of left shoulder History of back surgery History of colonoscopy History of prostate surgery History of removal of cyst History of tonsillectomy and adenoidectomy Hx of eye surgery History of Problems with Anesthesia: No Social History Social History (Updated 01/21/21 @ 10:31 by Michelle Elizabeth) Alcohol intake: former Smoking Status: Current every day smoker Packs Per Day: 0.33 Cigarettes Per Day: 6.6 Smoked in Last 30 Days: Yes Use of substances other than those prescribed or required for medical reasons: No Advance Directives: No Advance Directives Information Provided: Yes Meds Allergies Allergy/AdvReac Type Severity Reaction Status Date / Time lisinopril [LISINOPRIL] Allergy Severe Angioedema Verified 01/21/21 10:24 leflunomide Allergy Unknown Unknown Verified 01/21/21 10:24 LAITH inhibitors AdvReac Unknown angioedema Uncoded 08/23/20 09:46 Home Medications Medication Instructions Recorded Confirmed Last Taken Type albuterol sulfate 90 mcg/actuation 2 puff INHALATION Q4H PRN 08/01/20 11/20/20 08/23/20 07:30 History aerosol inhaler atorvastatin 40 mg tablet 40 mg PO BEDTIME 08/01/20 11/20/20 Unknown History cholecalciferol (vitamin D3) 25 25 mcg PO DAILY 08/01/20 11/20/20 Unknown History mcg (1,000 unit) tablet docusate sodium 100 mg capsule 100 mg PO BID 08/01/20 11/20/20 Unknown History fluticasone propionate 220 2 puff INHALATION BID 08/01/20 11/20/20 Unknown History mcg/actuation HFA aerosol inhaler melatonin 3 mg tablet 3 mg PO BEDTIME PRN 08/01/20 11/20/20 Unknown History omeprazole 20 mg capsule,delayed 20 mg PO QAM 08/01/20 11/20/20 08/23/20 07:30 History release sennosides 8.6 mg tablet 17.2 mg PO BEDTIME PRN 08/01/20 11/20/20 Unknown History umeclidinium 62.5 mcg/actuation 1 inh INHALATION BEDTIME 08/01/20 11/20/20 Unknown History blister powder for inhalation amlodipine 5 mg tablet 10 mg PO DAILY tab 12/04/20 Unknown History Exam Airway Mallampati Class: II TM Dist: >3cm Neck ROM: Full Loose/Missing/Broken Teeth: Yes (Most missing. Only 5 teeth on top) Heart: RRR Lungs: Occ wheeze Assessment and Plan Assessment Anesthesia Assessment: Anesthesia Plan Discussed and Chart Reviewed Final Anesthetic Review NPO: Yes ASA Class: II Final Preanesthetic Review: No Changes in Pt Med Stat, Meds/Allgs Chart Reviewed, Consent Obtained/Reviewed and Anes Risks/Benef Reviewed Patient Risk: Intermediate Procedure Risk: Low Assessment/Block/Sedation in SS: Assess/Block/Sedation-SS Anesthetic Plan Anesthetic Plan: MAC: Disposition: Standard PACU
[2021-01-20 11:05] VITALS: BMI 27.6
[2021-01-21 10:30] VITALS: BP 135/80; PULSE 77; RESP 16; TEMP 37; O2SAT 97; BMI 27.6
--- NOTE | 2021-01-21 10:36 | P.CONAN_ITS ---
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) Osteoporosis (Acute) Seropositive rheumatoid arthritis (Acute) Past Medical History Medical History Abscess Arthritis Asthma COPD (chronic obstructive pulmonary disease) GERD (gastroesophageal reflux disease) History of prostate cancer HTN (hypertension) 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 user Osteoporosis Seropositive rheumatoid arthritis Family History Family History Mother History of breast cancer, Onset Age: 87 Father History of asthma Family history of problems with anesthesia: No Surgical History Surgical History History of arthroscopy of left shoulder History of back surgery History of colonoscopy History of prostate surgery History of removal of cyst History of tonsillectomy and adenoidectomy Hx of eye surgery History of Problems with Anesthesia: No Social History Social History (Updated 01/21/21 @ 10:31 by Michelle Elizabeth) Alcohol intake: former Smoking Status: Current every day smoker Packs Per Day: 0.33 Cigarettes Per Day: 6.6 Smoked in Last 30 Days: Yes Use of substances other than those prescribed or required for medical reasons: No Advance Directives: No Advance Directives Information Provided: Yes Meds Allergies Allergy/AdvReac Type Severity Reaction Status Date / Time lisinopril [LISINOPRIL] Allergy Severe Angioedema Verified 01/21/21 10:24 leflunomide Allergy Unknown Unknown Verified 01/21/21 10:24 LAITH inhibitors AdvReac Unknown angioedema Uncoded 08/23/20 09:46 Active Medications: Current Medications Generic Name Dose Route Start Last Admin Trade Name Freq PRN Reason Stop Dose Admin Albuterol Sulfate 2.5 mg 01/21/21 10:13 Albuterol Sulfate (0.083%) 2.5 Mg/3 Ml Vial.Neb INHALE ONCE PRN Shortness of Breath/Wheezing Lactated Ringer's 1,000 mls @ 100 mls/hr 03/23/21 10:15 Lr IVCONT .Q10H RHYS Home Medications Medication Instructions Recorded Confirmed Last Taken Type albuterol sulfate 90 mcg/actuation 2 puff INHALATION Q4H PRN 08/01/20 11/20/20 08/23/20 07:30 History aerosol inhaler atorvastatin 40 mg tablet 40 mg PO BEDTIME 08/01/20 11/20/20 Unknown History cholecalciferol (vitamin D3) 25 25 mcg PO DAILY 08/01/20 11/20/20 Unknown History mcg (1,000 unit) tablet docusate sodium 100 mg capsule 100 mg PO BID 08/01/20 11/20/20 Unknown History fluticasone propionate 220 2 puff INHALATION BID 08/01/20 11/20/20 Unknown History mcg/actuation HFA aerosol inhaler melatonin 3 mg tablet 3 mg PO BEDTIME PRN 08/01/20 11/20/20 Unknown History omeprazole 20 mg capsule,delayed 20 mg PO QAM 08/01/20 11/20/20 08/23/20 07:30 History release sennosides 8.6 mg tablet 17.2 mg PO BEDTIME PRN 08/01/20 11/20/20 Unknown History umeclidinium 62.5 mcg/actuation 1 inh INHALATION BEDTIME 08/01/20 11/20/20 Unknown History blister powder for inhalation amlodipine 5 mg tablet 10 mg PO DAILY tab 12/04/20 01/21/21 07:30 History Exam Exam Date and Time: January 21, 2021 1036 Height,Weight and Vital Signs: Height 5 ft 6 in Weight 77.564 kg Last Vital Signs Temp 98.6 F 01/21/21 10:30 Pulse 77 01/21/21 10:30 Resp 16 01/21/21 10:30 BP 135/80 01/21/21 10:30 Pulse Ox 97 01/21/21 10:30 Airway Mallampati Class: II TM Dist: >3cm Neck ROM: Full Loose/Missing/Broken Teeth: Yes (Most missing. Only 5 teeth on top) Heart: RRR Lungs: Occ wheeze Assessment and Plan Assessment Anesthesia Assessment: Anesthesia Plan Discussed and Chart Reviewed Final Anesthetic Review NPO: Yes ASA Class: II Final Preanesthetic Review: No Changes in Pt Med Stat, Meds/Allgs Chart Reviewed, Consent Obtained/Reviewed and Anes Risks/Benef Reviewed Patient Risk: Intermediate Procedure Risk: Low Assessment/Block/Sedation in SS: Assess/Block/Sedation-SS Anesthetic Plan Anesthetic Plan: MAC: Disposition: Standard PACU
[2021-01-21] MEDS: Lactated Ringers 1,000 ML 100 ML IVCONT (10:42)
--- NOTE | 2021-01-21 11:10 | MHC.SHP ---
Pre-Procedural Eval Section A The patient is an INPATIENT: No Changes since office visit: No Cold of Flu in the past 2 weeks, No New Medical Problems, No Changes in Medication and No Patient answered all questions The History & Physical has been completed within 30 days and I have reviewed it.: Yes Section B Chief Complaint: polyps Allergies: Allergies Allergy/AdvReac Type Severity Reaction Status Date / Time lisinopril [LISINOPRIL] Allergy Severe Angioedema Verified 01/21/21 10:24 leflunomide Allergy Unknown Unknown Verified 01/21/21 10:24 LAITH inhibitors AdvReac Unknown angioedema Uncoded 08/23/20 09:46 Plan I have reviewed the history and physical and performed a pertinent physical examination on my patient. No changes have occurred unless specified.
[2021-01-21 11:41] VITALS: BP 99/61; PULSE 78; RESP 14; TEMP 36.4; O2SAT 94
--- NOTE | 2021-01-21 11:43 | PM.OP ---
Brief Operative Note Date of Service: 01/21/21 Pre-op diagnosis: screening Post-op diagnosis: same (colon polyps) Surgeon: Og Rodríguez Anesthesia: MAC Estimated blood loss (mL): 2 Condition: stable Disposition: PACU
[2021-01-21 11:56] VITALS: BP 122/69; PULSE 73; RESP 16; O2SAT 94
[2021-01-21 12:11] VITALS: BP 126/72; PULSE 66; RESP 18; O2SAT 96
--- NOTE | 2021-01-21 12:25 | OP_ITS ---
SURGEON: Og Rodríguez MD INDICATIONS: Personal history of colon polyps, colon cancer screening. PREOPERATIVE DIAGNOSIS: POSTOPERATIVE DIAGNOSIS: PROCEDURE PERFORMED: Colonoscopy to the terminal ileum with snare polypectomy and biopsy. ESTIMATED BLOOD LOSS: COMPLICATIONS: ANESTHESIA: ASSISTANTS: SPECIMENS: MEDICATIONS: Monitored anesthesia care. DESCRIPTION OF PROCEDURE: History and physical performed. The risks and benefits of the procedure were explained to the patient. Informed consent was obtained. The patient was placed in the left lateral decubitus position. A digital rectal exam was performed and was found to be normal. The Olympus pediatric video colonoscope was introduced into the rectum and advanced to the cecum without difficulty. The cecum was identified by transillumination, palpation, and identification of ileocecal valve. Examination was performed and the scope was removed. He tolerated the procedure well and was taken to recovery area in stable condition. FINDINGS: The terminal ileum was not examined. There was some liquid stool in the cecum, limiting the examination. This was washed and suctioned. Abdominal wall pressure was used to assist in advancement of the scope due to looping in the sigmoid. At the splenic flexure, was a 6 mm polyp, which was removed with a snare and recovered via suction. A second polyp at about 25 cm, measured less than 5 mm and was removed with biopsy forceps. There were multiple hyperplastic appearing polyps in the rectum, which were not biopsied. IMPRESSION: Colon polyps. RECOMMENDATION: Follow up biopsy results. MD MISSY Greco/MARYA / [id number]
[2021-01-21 12:26] VITALS: BP 137/76; PULSE 71; RESP 20; TEMP 36.7; O2SAT 98
== END 2021-01-21 12:54 | disposition home or self-care (01) ==
PROVIDERS: PCP Family Medicine; Visit Provider Internal Medicine Gastroenterology
PROC: 0DJD8ZZ Inspection of Lower Intestinal Tract, Via Natural or Artificial Opening Endoscopic (ICD-10-PCS; CPT 45378; principal; 2021-01-21 10:20)
DX: Z12.11 Encounter for screening for malignant neoplasm of colon (principal); Z86.010 Personal history of colon polyps; D12.3 Benign neoplasm of transverse colon; K63.5 Polyp of colon; K59.00 Constipation, unspecified; K21.9 Gastro-esophageal reflux disease without esophagitis; J44.9 Chronic obstructive pulmonary disease, unspecified; I10 Essential (primary) hypertension; M81.0 Age-related osteoporosis without current pathological fracture; M05.9 Rheumatoid arthritis with rheumatoid factor, unspecified; Z79.51 Long term (current) use of inhaled steroids; Z79.899 Other long term (current) drug therapy; Z88.8 Allergy status to other drugs, medicaments and biological substances; F17.210 Nicotine dependence, cigarettes, uncomplicated; Z85.46 Personal history of malignant neoplasm of prostate
CPT/HCPCS: 45385; 45380; 88305

== ENCOUNTER → 2021-02-11 09:46 | Outpatient (BNVA) | payer MEDICARE, SELFPAY | PROVIDERS: PCP Family Medicine; Visit Provider Orthopaedic Surgery | DX: M75.42 Impingement syndrome of left shoulder (principal) | CPT/HCPCS: 20610; 99212; J1040 ==

== ENCOUNTER 2021-04-18 12:23 | Outpatient (REF) | payer MEDICARE, SELFPAY ==
[2021-04-18 14:48] LABS: MANUAL DIFF FLAG NO
[2021-04-18 14:57] LABS: Basophils Absolute Auto 0.1 X10*3/uL (0.0-0.2); Basophils Percent Auto 0.4 % (0-2); Eosinophils Percent Auto 0.1 % (0-4); Hematocrit 40.7 % (42-52); Hemoglobin 13.1 g/dl (14.0-18.0); Imm Gran Abs Auto 0.05 X10*3/uL (0.00-0.03); Imm Gran Pct Auto 0.4 % (0.0-0.4); Lymphocytes Absolute Auto 1.6 X10*3/uL (1.2-4.9); Lymphocytes Percent Auto 11.2 % (20-40); Mean Corpuscular HGB Conc 32.2 g/dl (31.0-36.0); Mean Corpuscular Hemoglobin 27.6 pg (27.0-33.0); Mean Corpuscular Volume 85.9 fL (80-98); Mean Platelet Volume 9.9 fL (9.4-12.4); Monocytes Absolute Auto 0.6 X10*3/uL (0.1-1.2); Monocytes Percent Auto 4.4 % (2-11); Neutrophils Absolute Auto 11.7 X10*3/uL (2.0-8.3); Neutrophils Percent Auto 83.5 % (45-73); Platelet Count 349 X10*3/uL (160-400); Red Blood Count 4.74 X10*6/uL (4.60-5.80); Red Cell Distribution Width 17.7 % (11.0-16.0)
[2021-04-18 15:27] LABS: Alanine Aminotransferase 30 U/L (0-40); Albumin Level 4.5 g/dL (3.5-5.0); Alkaline Phosphatase 142 U/L (39-117); Anion Gap 16 (12-20); Aspartate Amino Transferase 20 U/L (5-37); Bilirubin Total 0.6 mg/dL (0.0-1.0); Blood Urea Nitrogen 10 mg/dL (9-16); C Reactive Protein 2.29 mg/dL (< or = 0.50); Carbon Dioxide 23 mmol/L (22-29); Chloride 105 mmol/L (96-108); Estimated Glomerular Filt Rate > 60; Glucose Random 119 mg/dL (60-115); Potassium 4.2 mmol/L (3.3-5.1); Sodium 140 mmol/L (135-145); Total Protein 7.5 g/dL (6.5-8.0)
[2021-04-18 15:37] LABS: Erythrocyte Sedimentation Rate 28 MM/HR (0-15)
[2021-04-22 20:37] LABS: Vitamin D 25-OH, D2 <4 ng/mL; Vitamin D 25-OH, D3 27 ng/mL; Vitamin D 25-OH, Total 27 ng/mL (30-100)
== END 2021-04-18 12:24 | disposition home or self-care (01) ==
LOC: HO.LAB 12:23
PROVIDERS: PCP Family Medicine; Visit Provider Student in an Organized Health Care Education/Training Program
DX: M05.9 Rheumatoid arthritis with rheumatoid factor, unspecified (principal); M81.0 Age-related osteoporosis without current pathological fracture; F17.210 Nicotine dependence, cigarettes, uncomplicated; Z79.899 Other long term (current) drug therapy; Z79.891 Long term (current) use of opiate analgesic; Z79.52 Long term (current) use of systemic steroids
CPT/HCPCS: 36415; 80053; 82306; 84550; 85025; 85652; 86140; 99212

== ENCOUNTER → 2021-06-20 10:17 | Outpatient (BNVA) | payer MEDICARE, SELFPAY | PROVIDERS: PCP Family Medicine; Visit Provider Nurse Practitioner Family | DX: M05.9 Rheumatoid arthritis with rheumatoid factor, unspecified (principal); M81.0 Age-related osteoporosis without current pathological fracture; R01.1 Cardiac murmur, unspecified; R07.9 Chest pain, unspecified; Z79.52 Long term (current) use of systemic steroids | CPT/HCPCS: 99212 ==

== ENCOUNTER 2021-07-20 11:44 | Emergency (ER) | payer MEDICARE, SELFPAY ==
--- NOTE | 2021-07-20 | ECG_ITS ---
Test Reason : CP Blood Pressure : / mmHG Vent. Rate : 075 BPM Atrial Rate : 075 BPM P-R Int : 154 ms QRS Dur : 088 ms QT Int : 402 ms P-R-T Axes : 026 011 081 degrees QTc Int : 448 ms Normal sinus rhythm Nonspecific T wave abnormality Abnormal ECG When compared with ECG of 15-MAR-2018 10:32, Premature atrial complexes are no longer Present Referred By: Generic ED Physician Electronically Signed By:ASAD DANIELS
--- NOTE | ~2021-07-20 | US_ITS ---
EXAMINATION: US VENOUS ULTRASOUND WITH DOPPLER LOWER EXTREMITY, BILATERAL CLINICAL INFORMATION: Bilateral leg swelling. COMPARISON: None TECHNIQUE: Ultrasound of the deep veins is performed from the hip to the calf with compression sonography and color and pulse Doppler assessment. Spectral analysis with color-flow imaging is performed. FINDINGS: RIGHT: There is normal venous compression and respiratory variation and augmented flow. The visualized common femoral vein, superficial femoral vein, profunda femoral vein, popliteal vein, and the trifurcation region shows no evidence of deep venous thrombosis. There is no significant popliteal fossa cyst. Right peroneal vein is not visualized. LEFT: There is normal venous compression and respiratory variation and augmented flow. The visualized common femoral vein, superficial femoral vein, profunda femoral vein, popliteal vein, and the trifurcation region shows no evidence of deep venous thrombosis. There is no significant popliteal fossa cyst. If the patient's symptoms persist, followup ultrasound in 5 days 7 days might be of value to exclude proximal propagation from a non-visualized calf vein. US/US venous duplex LE BI IMPRESSION: No DVT demonstrated in bilateral lower extremity.
--- NOTE | ~2021-07-20 | CT_ITS ---
EXAMINATION: CT CHEST PE STUDY CLINICAL INFORMATION: Shortness of breath. Chest pain. Elevated d-dimer. Rule out PE COMPARISON: Bilateral lower extremity venous Doppler ultrasound dated 07/20/2021. Chest x-ray dated 07/20/2021. CT scan of the chest dated 08/20/2011. TECHNIQUE: Prior to contrast administration, localization images were obtained. After the administration of 65 and mL of intravenous Omnipaque 350, multidetector CT volume acquisition of the chest was performed. 3-D postprocessing was performed with multiplanar reconstructions and MIP images obtained at the acquisition workstation under concurrent physician supervision. This CT examination was performed using dose optimization techniques as appropriate, variously including the following: *Automated exposure control *Adjustment of mA and/or kV according to patient size (this includes techniques or standardized protocols for targeted exams where dose is matched to indication/reason for exam; i.e. extremities or head) *Use of iterative reconstruction technique DLP: 300 mGy-cm. FINDINGS: Pulmonary arteries: The bolus timing on this study was acceptable for visualization of the pulmonary arterial tree. There are no intraluminal pulmonary arterial filling defects present to suggest pulmonary embolism in the main pulmonary artery, right and left main pulmonary artery, lobar and segmental branches. Lungs: Mild biapical pleural-based reticular nodular opacities consistent with scarring noted. Scattered areas of predominantly dependent atelectasis seen in both lungs, predominantly in the lower lobes. No significant pulmonary nodules, masses, pleural effusion or pneumothorax. The central airways are patent. Aorta and heart: The heart is normal in size. No evidence of elevated right heart pressures seen. 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 Descending aorta at the same level measures 3.1 cm and the aortic arch just beyond the takeoff of the left subclavian artery measures 3.3 cm. There is mild atherosclerotic calcification of the aorta and branch vessels, including coronary arteries. There is no pericardial effusion Lymphatic structures: There is no lymphadenopathy. Upper abdomen: Limited evaluation of the upper abdominal viscera demonstrates bilateral benign-appearing thin-walled fluid attenuation measuring renal cysts, incompletely included, measuring 3.4 x 3.3 cm on the left side and 1.7 cm in diameter on the right side. Small 1.3 cm accessory splenule is seen along the inferior margin of the splenic hilum. Included portions of the pancreatic body and tail are mildly atrophic. There is a 1.5 x 1.1 cm low-attenuation mass in the right adrenal gland with mean attenuation values of -42 Hounsfield units, consistent with a benign myelolipoma or lipid rich adenoma. Included portions of solid organs in the upper abdomen otherwise unremarkable. There is some fullness at the GE junction, likely representing a small hiatal hernia. Bones: Moderate vertebral spondylosis is seen in the thoracolumbar spine. No suspicious focal findings. CT/CT angio chest PE protocol IMPRESSION: 1. No evidence of pulmonary embolism. 2. Mildly aneurysmal ascending aorta with maximal AP diameter of 4.4 cm. 3. Bilateral renal cysts, incompletely included. 4. 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 VTE: Negative
--- NOTE | ~2021-07-20 | XR_ITS ---
EXAMINATION: XR CHEST CLINICAL INFORMATION: Chest pain COMPARISON: Previous chest x-ray March 2018 TECHNIQUE: 2 views of the chest were obtained. FINDINGS: The cardiac and mediastinal contours are stable. There is biapical pleural thickening that is stable. The lungs are otherwise clear. There is no pleural effusion or pneumothorax. There are degenerative changes of the spine. XR/XR chest 2V IMPRESSION: No evidence for acute disease in the chest.
[2021-07-20 12:10] VITALS: BP 132/74; PULSE 83; RESP 16; TEMP 36.4; O2SAT 98; BMI 27.6
[2021-07-20 12:10] LABS: MANUAL DIFF FLAG NO
[2021-07-20 12:11] LABS: Basophils Percent Auto 0.3 % (0-2); Eosinophils Absolute Auto 0.1 X10*3/uL (0.0-0.4); Eosinophils Percent Auto 0.7 % (0-4); Hematocrit 43.1 % (42-52); Hemoglobin 13.5 g/dl (14.0-18.0); Imm Gran Abs Auto 0.04 X10*3/uL (0.00-0.03); Imm Gran Pct Auto 0.3 % (0.0-0.4); Lymphocytes Absolute Auto 1.9 X10*3/uL (1.2-4.9); Lymphocytes Percent Auto 15.8 % (20-40); Mean Corpuscular HGB Conc 31.3 g/dl (31.0-36.0); Mean Corpuscular Hemoglobin 27.1 pg (27.0-33.0); Mean Corpuscular Volume 86.4 fL (80-98); Mean Platelet Volume 9.6 fL (9.4-12.4); Monocytes Absolute Auto 0.6 X10*3/uL (0.1-1.2); Monocytes Percent Auto 4.8 % (2-11); Neutrophils Absolute Auto 9.6 X10*3/uL (2.0-8.3); Neutrophils Percent Auto 78.1 % (45-73); Platelet Count 285 X10*3/uL (160-400); Red Blood Count 4.99 X10*6/uL (4.60-5.80); Red Cell Distribution Width 18.8 % (11.0-16.0); White Blood Count 12.2 X10*3/uL (4.8-10.8)
[2021-07-20 12:36] LABS: Anion Gap 15 (12-20); Blood Urea Nitrogen 9 mg/dL (9-16); Calcium 9.9 mg/dL (8.4-10.2); Carbon Dioxide 25 mmol/L (22-29); Chloride 105 mmol/L (96-108); Creatinine Clr Calc Pharmacy 85.9; Estimated Glomerular Filt Rate > 60; Glucose Random 143 mg/dL (60-115); Potassium 4.3 mmol/L (3.3-5.1); Sodium 141 mmol/L (135-145)
[2021-07-20 12:42] LABS: Troponin-I High Sensitivity < 3.5 ng/L (<3.5-35.0)
--- NOTE | 2021-07-20 12:47 | ED_ITS ---
HPI - General Adult General Chief complaint: Back Pain/Injury Stated complaint: UPPER SIDE AND CHEST PAIN Time Seen by Provider: 07/20/21 12:33 Source: patient Mode of arrival: ambulatory Limitations: no limitations History of Present Illness HPI narrative: 75 yo male with past medical history of RA (on plaquenil, rasuvo, sulfasalazine and oral prednisone 5mg daily), COPD, GERD, HTN, osteoporosis here with complaints of left upper back pain for 2 weeks now radiating to left chest x 1 week. Intermittent. Occurs at rest and with movement, worsened with deep breathing and movement of left arm. No SOB, cough, fevers, chills, abdominal pain, vomiting, diarrhea. Does reports bilateral leg swelling with pain. Related Data Home Medications Medication Instructions Recorded Confirmed albuterol sulfate 90 mcg/actuation 2 puff INHALATION Q4H PRN 08/01/20 04/18/21 aerosol inhaler atorvastatin 40 mg tablet 40 mg PO BEDTIME 08/01/20 04/18/21 cholecalciferol (vitamin D3) 25 25 mcg PO DAILY 08/01/20 04/18/21 mcg (1,000 unit) tablet docusate sodium 100 mg capsule 100 mg PO BID 08/01/20 04/18/21 (Colace) fluticasone propionate 220 2 puff INHALATION BID 08/01/20 04/18/21 mcg/actuation HFA aerosol inhaler melatonin 3 mg tablet 3 mg PO BEDTIME PRN 08/01/20 04/18/21 omeprazole 20 mg capsule,delayed 20 mg PO QAM 08/01/20 04/18/21 release sennosides 8.6 mg tablet 17.2 mg PO BEDTIME PRN 08/01/20 04/18/21 umeclidinium 62.5 mcg/actuation 1 inh INHALATION BEDTIME 08/01/20 04/18/21 blister powder for inhalation (Incruse Ellipta) amlodipine 5 mg tablet 10 mg PO DAILY tab 12/04/20 04/18/21 Previous Rx's Medication Instructions Recorded oxycodone-acetaminophen 5 mg-325 1 - 2 tab PO Q4-6H PRN #30 tab 08/23/20 mg tablet (Percocet) cyclobenzaprine 10 mg tablet 10 mg PO TID PRN #10 tab 09/09/20 sulfasalazine 500 mg 1,000 mg PO Q12H #120 tab 12/12/20 tablet,delayed release alendronate 70 mg tablet 70 mg PO QWEEK #12 tab 02/04/21 prednisone 5 mg tablet 5 mg PO DAILY #30 tab 04/18/21 hydroxychloroquine 200 mg tablet 200 mg PO BID #60 tab 05/27/21 methotrexate (PF) 25 mg/0.5 mL 25 mg SUBCUT QWEEK #2 ml 07/01/21 subcutaneous auto-injector (Rasuvo (PF)) cyclobenzaprine 5 mg tablet 5 mg PO TID PRN #10 tab 07/20/21 lidocaine 5 % topical patch 1 patch TOPICAL DAILY #15 ea 07/20/21 (Lidoderm) Allergies Allergy/AdvReac Type Severity Reaction Status Date / Time lisinopril [LISINOPRIL] Allergy Severe Angioedema Verified 06/20/21 11:36 LAITH inhibitors AdvReac Unknown angioedema Uncoded 06/20/21 11:36 Review of Systems Review of Systems: Yes all other systems are reviewed and are negative Constitutional: Constitutional: Reports no additional constitutional complaints, Denies body ache(s), Denies chills, Denies fever(s), Denies headache(s) and Denies weakness Eyes: Eyes: Reports no additional eye complaints and Denies change in vision ENT: Reports system reviewed and no additional complaints, except as documented, Denies dizziness, Denies headache(s), Denies nasal congestion, Denies nasal discharge and Denies neck pain Cardiovascular: Cardiovascular: Reports no additional cardiovascular complaints, Reports chest pain, Reports leg edema and Denies dyspnea Respiratory: Respiratory: Reports no additional respiratory complaints, Denies cough and Denies dyspnea Gastrointestinal: Gastrointestinal: Reports no additional gastrointestinal complaints, Denies abdominal pain, Denies diarrhea, Denies nausea and Denies vomiting Genitourinary: Genitourinary: Denies urinary incontinence Musculoskeletal: Musculoskeletal: Reports no additional musculoskeletal complaints, Reports back pain, Denies arthralgias, Denies joint swelling, Denies neck pain, Denies numbness and Denies tingling Integumentary/Breasts: Skin/Breast: Reports system reviewed and no additional complaints, except as docu and Denies rash Neurologic: Reports system reviewed and no additional complaints, except as documented, Denies Abnormal speech present, Denies dizziness, Denies headache(s), Denies numbness, Denies tingling and Denies weakness [facility] Past Medical History Attestation statement: The following information was validated with the patient. 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 Osteoporosis Seropositive rheumatoid arthritis Surgical History History of arthroscopy of left shoulder History of back surgery History of colonoscopy History of prostate surgery History of removal of cyst History of tonsillectomy and adenoidectomy Hx of eye surgery Family History Family History Mother History of breast cancer, Onset Age: 87 Father History of asthma Social History Social History Alcohol intake: former Cigarette Packs Per Day: 0.33 Cigarettes Per Day: 6.6 Years Smoked: 58 e-Cigarette/Vaping Use: Never Used Advance Directives: No Advance Directives Information Provided: No Gender identity: Male Physical Exam Vital Signs: Vital Signs: Last Vital Signs Temp 97.6 F 07/20/21 12:10 Pulse 83 07/20/21 12:10 Resp 16 07/20/21 12:10 BP 132/74 07/20/21 12:10 Pulse Ox 98 07/20/21 12:10 Body Mass Index 27.6 Const: General: cooperative, healthy appearing, comfortable and no acute distress Orientation/consciousness: patient oriented x3 Limitations: no limitations HENMT: Head: Yes normal to inspection Ears: hearing grossly normal bilaterally General nose exam: Normal external nose present Face and sin us: Yes normal facial exam Mouth: Normal oral and palatal mucosa present Throat: Yes posterior oropharynx normal Eyes: General: appearance normal, both eyes and all related structures Pupils: Equal, round and reactive pupils present Neck: Neck: Yes normal visual inspection Chest: Other: left chest tender to palp, left posterior tender to palp with no deformity, swelling or pain Chest palpation & inspection: normal inspection of the chest Resp: Effort & Inspection: normal respiratory effort Auscultation: clear to auscultation bilaterally Cardio: Rate: regular rate Rhythm: regular rhythm Peripheral pulses: Peripheral pulses 2+ throughout GI: Inspection: Yes normal to inspection Palpation (GI): Soft to palpation and nontender Auscultation: normal bowel sounds Back/Spine/Pelvis: Thoracic/Lumbar Spine: thoracic and lumbar spine normal to inspection Skin: General skin exam: no rashes or lesions noted Neuro: General: patient oriented x3, no focal motor deficits and normal sensation to monofilament Cranial nerves: Yes Equal, round and reactive pupils present Cognition (Neuro): normal cognition Speech: No Abnormal speech present Gait exam (Neuro): Normal gait present Motor exam (neuro): 5/5 motor strength present throughout Extrem: Other: bilateral 2+ pitting edema with no warmth or redness, +pain General: Yes normal to inspection Course Course Course Narrative: 75 yo male here with complaints of left-sided back and posterior shoulder pain with radiation to the left chest for several weeks. No other complaints with the exception of bilateral lower extremity swelling which is pitting and painful. Will check chest x-ray, labs, EKG, COVID screen, venous ultrasound bilateral. 1640-labs are unremarkable with the exception of a mildly elevated D-dimer. Chronic leukocytosis due to prednisone use. a CT scan of the chest was done which was unremarkable. Ultrasound negative. All other labs unremarkable. Likely musculoskeletal. Patient had improvement with a low-dose muscle relaxant, medicated patch and Tylenol. Reviewed worrisome signs and symptoms of when to return to the emergency department. Comfortable discharge home. Medical Decision Making MDM Narrative Medical decision making narrative: ACS, PE, MStrain -less likely ACS with negative troponin and EKG with symptoms greater than 2 weeks Medical Records Medical records reviewed: Yes I reviewed the patient's medical records. Lab Data Lab results reviewed: Yes I reviewed the patient's lab results. Result diagrams: 07/20/21 12:05 07/20/21 12:05 Labs: Lab Results 07/20/21 07/20/21 07/20/21 Range/Units 12:05 12:05 12:05 WBC 12.2 H (4.8-10.8) X10*3/uL RBC 4.99 (4.60-5.80) X10*6/uL Hgb 13.5 L (14.0-18.0) g/dl Hct 43.1 (42-52) % MCV 86.4 (80-98) fL MCH 27.1 (27.0-33.0) pg MCHC 31.3 (31.0-36.0) g/dl RDW 18.8 H (11.0-16.0) % Plt Count 285 (160-400) X10*3/uL MPV 9.6 (9.4-12.4) fL Immature Gran % (Auto) 0.3 (0.0-0.4) % Neut % (Auto) 78.1 H (45-73) % Lymph % (Auto) 15.8 L (20-40) % [place] % (Auto) 4.8 (2-11) % Eos % (Auto) 0.7 (0-4) % Baso % (Auto) 0.3 (0-2) % Lymph # (Auto) 1.9 (1.2-4.9) X10*3/uL [place] # (Auto) 0.6 (0.1-1.2) X10*3/uL Eos # (Auto) 0.1 (0.0-0.4) X10*3/uL Baso # (Auto) 0.0 (0.0-0.2) X10*3/uL Abs Immat Gran (auto) 0.04 H (0.00-0.03) X10*3/uL Absolute Neuts (auto) 9.6 H (2.0-8.3) X10*3/uL Absolute Nucleated RBC 0.000 (0.0-0.012) X10*3/uL Nucleated RBC % (auto) 0.0 (0.0-0.2) /100WBC PT (9.9-13.0) SEC INR (0.9-1.1) D-Dimer NG/ML Sodium 141 (135-145) mmol/L Potassium 4.3 (3.3-5.1) mmol/L Chloride 105 (96-108) mmol/L Carbon Dioxide 25 (22-29) mmol/L Anion Gap 15 (12-20) BUN 9 (9-16) mg/dL Creatinine 0.75 (0.5-1.4) mg/dL Estim Creat Clear Calc 85.9 Estimated GFR > 60 Random Glucose 143 H (60-115) mg/dL Calcium 9.9 (8.4-10.2) mg/dL Total Bilirubin 0.5 (0.0-1.0) mg/dL Direct Bilirubin 0.2 (0.0-0.5) mg/dL AST 26 (5-37) U/L ALT 45 H (0-40) U/L Alkaline Phosphatase 121 H (39-117) U/L Troponin I High Sens < 3.5 (<3.5-35.0) ng/L Total Protein 7.2 (6.5-8.0) g/dL Albumin 4.5 (3.5-5.0) g/dL Lipase 17 (8-78) U/L COVID-19 (SHAHRIAR) (Negative) COVID-19 Clin Com 07/20/21 07/20/21 Range/Units 12:34 13:00 WBC (4.8-10.8) X10*3/uL RBC (4.60-5.80) X10*6/uL Hgb (14.0-18.0) g/dl Hct (42-52) % MCV (80-98) fL MCH (27.0-33.0) pg MCHC (31.0-36.0) g/dl RDW (11.0-16.0) % Plt Count (160-400) X10*3/uL MPV (9.4-12.4) fL Immature Gran % (Auto) (0.0-0.4) % Neut % (Auto) (45-73) % Lymph % (Auto) (20-40) % [place] % (Auto) (2-11) % Eos % (Auto) (0-4) % Baso % (Auto) (0-2) % Lymph # (Auto) (1.2-4.9) X10*3/uL [place] # (Auto) (0.1-1.2) X10*3/uL Eos # (Auto) (0.0-0.4) X10*3/uL Baso # (Auto) (0.0-0.2) X10*3/uL Abs Immat Gran (auto) (0.00-0.03) X10*3/uL Absolute Neuts (auto) (2.0-8.3) X10*3/uL Absolute Nucleated RBC (0.0-0.012) X10*3/uL Nucleated RBC % (auto) (0.0-0.2) /100WBC PT 12.1 (9.9-13.0) SEC INR 1.1 (0.9-1.1) D-Dimer 1037 NG/ML Sodium (135-145) mmol/L Potassium (3.3-5.1) mmol/L Chloride (96-108) mmol/L Carbon Dioxide (22-29) mmol/L Anion Gap (12-20) BUN (9-16) mg/dL Creatinine (0.5-1.4) mg/dL Estim Creat Clear Calc Estimated GFR Random Glucose (60-115) mg/dL Calcium (8.4-10.2) mg/dL Total Bilirubin (0.0-1.0) mg/dL Direct Bilirubin (0.0-0.5) mg/dL AST (5-37) U/L ALT (0-40) U/L Alkaline Phosphatase (39-117) U/L Troponin I High Sens (<3.5-35.0) ng/L Total Protein (6.5-8.0) g/dL Albumin (3.5-5.0) g/dL Lipase (8-78) U/L COVID-19 ([facility]AHRIAR) Negative (Negative) COVID-19 Clin Com See Note Imaging Data Chest x-ray: Attestation: I personally reviewed and interpreted this imaging study as follows: Radiologist's impression: [place] [id number] XRay Report Signed Patient: Patrice Jenkins MR#: [id number] : 1945 Acct:[id number] Age/Sex: 75 / M ADM Date: 07/20/21 Loc: HO.ED Attending Dr: Ordering Physician: Paradise Phelps MD Date of Service: 07/20/21 Procedure(s): XR chest 2V Accession Number(s): [id number] cc: Paradise Phelps MD~ EXAMINATION: XR CHEST CLINICAL INFORMATION: Chest pain COMPARISON: Previous chest x-ray March 2018 TECHNIQUE: 2 views of the chest were obtained. FINDINGS: The cardiac and mediastinal contours are stable. There is biapical pleural thickening that is stable. The lungs are otherwise clear. There is no pleural effusion or pneumothorax. There are degenerative changes of the spine. XR/XR chest 2V IMPRESSION: No evidence for acute disease in the chest. Venous US: Attestation: I personally reviewed and interpreted this imaging study as follows: Radiologist's impression: [address] [id number] Ultrasound Report Signed Patient: Patrice Jenkins MR#: [id number] : 1945 Acct:[id number] Age/Sex: 75 / M ADM Date: 07/20/21 Loc: HO.ED Attending Dr: Ordering Physician: Lissy Phelps NP Date of Service: 07/20/21 Procedure(s): US venous duplex [facility] Accession Number(s): [id number] cc: Lissy Phelps NP~ EXAMINATION:? US VENOUS ULTRASOUND WITH DOPPLER LOWER EXTREMITY, BILATERAL CLINICAL INFORMATION:? Bilateral leg swelling. COMPARISON:? None TECHNIQUE: Ultrasound of the deep veins is performed from the hip to the calf with compression sonography and color and pulse Doppler assessment. Spectral analysis with color-flow imaging is performed. FINDINGS: RIGHT: There is normal venous compression and respiratory variation and augmented flow. The visualized common femoral vein, superficial femoral vein, profunda femoral vein, popliteal vein, and the trifurcation region shows no evidence of deep venous thrombosis. ? There is no significant popliteal fossa cyst. Right peroneal vein is not visualized. LEFT: There is normal venous compression and respiratory variation and augmented flow. The visualized common femoral vein, superficial femoral vein, profunda femoral vein, popliteal vein, and the trifurcation region shows no evidence of deep venous thrombosis. ? There is no significant popliteal fossa cyst. If the patient's symptoms persist, followup ultrasound in 5 days 7 days might be of value to exclude proximal propagation from a non-visualized calf vein. US/US venous duplex LE IMPRESSION: No DVT demonstrated in bilateral lower extremity. CT scan - chest: Attestation: I personally reviewed and interpreted this imaging study as follows: Radiologist's impression: FINDINGS: Pulmonary arteries: The bolus timing on this study was acceptable for visualization of the pulmonary arterial tree. There are no intraluminal pulmonary arterial filling defects present to suggest pulmonary embolism in the main pulmonary artery, right and left main pulmonary artery, lobar and segmental branches. Lungs: Mild biapical pleural-based reticular nodular opacities consistent with scarring noted. Scattered areas of predominantly dependent atelectasis seen in both lungs, predominantly in the lower lobes. No significant pulmonary nodules, masses, pleural effusion or pneumothorax. The central airways are patent. Aorta and heart: The heart is normal in size. No evidence of elevated right heart pressures seen. 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 Descending aorta at the same level measures 3.1 cm and the aortic arch just beyond the takeoff of the left subclavian artery measures 3.3 cm. There is mild atherosclerotic calcification of the aorta and branch vessels, including coronary arteries. There is no pericardial effusion Lymphatic structures: There is no lymphadenopathy. Upper abdomen: Limited evaluation of the upper abdominal viscera demonstrates bilateral benign-appearing thin-walled fluid attenuation measuring renal cysts, incompletely included, measuring 3.4 x 3.3 cm on the left side and 1.7 cm in diameter on the right side. Small 1.3 cm accessory splenule is seen along the inferior margin of the splenic hilum. Included portions of the pancreatic body and tail are mildly atrophic. There is a 1.5 x 1.1 cm low-attenuation mass in the right adrenal gland with mean attenuation values of -42 Hounsfield units, consistent with a benign myelolipoma or lipid rich adenoma. Included portions of solid organs in the upper abdomen otherwise unremarkable. There is some fullness at the GE junction, likely representing a small hiatal hernia. Bones: Moderate vertebral spondylosis is seen in the thoracolumbar spine. No suspicious focal findings. CT/CT angio chest PE protocol IMPRESSION: ? 1. No evidence of pulmonary embolism. 2. Mildly aneurysmal ascending aorta with maximal AP diameter of 4.4 cm. 3. Bilateral renal cysts, incompletely included. 4. 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 ? VTE: Negative ECG Data Attestation: I personally reviewed and interpreted this ECG as follows: Interpretation: Normal sinus rhythm with a rate of 75, normal IL, normal QRS, QTC 448 Discharge Plan Discharge Clinical Impression: Chest pain, atypical Patient Disposition: Home, Self-Care Instructions: Chest Wall Pain (ED) Additional Instructions: Heat or ice Gentle stretching Follow-up with primary care doctor as needed Your CT scan showed a dilated aorta and several kidney cyst. You can discuss this with your primary care Prescriptions: New cyclobenzaprine 5 mg tablet 5 mg PO TID PRN (Reason: muscle spasm) Qty: 10 RF: 0 lidocaine [Lidoderm] 5 % adhesive patch,medicated 1 patch topical DAILY Qty: 15 RF: 0 No Action amlodipine 5 mg tablet 10 mg PO DAILY RF: 0 sulfasalazine 500 mg tablet,delayed release (DR/EC) 1,000 mg PO Q12H Qty: 120 RF: 3 alendronate 70 mg tablet 70 mg PO QWEEK Qty: 12 RF: 1 hydroxychloroquine 200 mg tablet 200 mg PO BID Qty: 60 RF: 5 Rasuvo (PF) 25 mg/0.5 mL auto-injector 25 mg subcut QWEEK Qty: 2 RF: 2 oxycodone-acetaminophen [Percocet] 5-325 mg tablet 1 - 2 tab PO Q4-6H PRN (Reason: pain) Qty: 30 RF: 0 cyclobenzaprine 10 mg tablet 10 mg PO TID PRN (Reason: muscle spasm) Qty: 10 RF: 0 atorvastatin 40 mg tablet 40 mg PO BEDTIME RF: 0 cholecalciferol (vitamin D3) 25 mcg (1,000 unit) tablet 25 mcg PO DAILY RF: 0 albuterol sulfate 90 mcg/actuation HFA aerosol inhaler 2 puff inhalation Q4H PRN (Reason: dyspnea) RF: 0 omeprazole 20 mg capsule,delayed release(DR/EC) 20 mg PO QAM RF: 0 melatonin 3 mg tablet 3 mg PO BEDTIME PRN (Reason: insomnia) RF: 0 sennosides 8.6 mg tablet 17.2 mg PO BEDTIME PRN (Reason: constipation) RF: 0 fluticasone propionate 220 mcg/actuation HFA aerosol inhaler 2 puff inhalation BID RF: 0 Incruse Ellipta 62.5 mcg/actuation blister with device 1 inh inhalation BEDTIME RF: 0 docusate sodium [Colace] 100 mg capsule 100 mg PO BID RF: 0 prednisone 5 mg tablet 5 mg PO DAILY Qty: 30 RF: 4 Referrals: Daisha Crane MD [Primary Care Provider] - 2 days Print Language: Vietnamese
[2021-07-20 12:54] LABS: COVID-19 Test Negative (Negative)
[2021-07-20 13:07] LABS: Alanine Aminotransferase 45 U/L (0-40); Albumin Level 4.5 g/dL (3.5-5.0); Alkaline Phosphatase 121 U/L (39-117); Aspartate Amino Transferase 26 U/L (5-37); Bilirubin Direct 0.2 mg/dL (0.0-0.5); Bilirubin Total 0.5 mg/dL (0.0-1.0); Lipase 17 U/L (8-78); Total Protein 7.2 g/dL (6.5-8.0)
[2021-07-20 13:14] LABS: INTERNATIONAL NORM RATIO 1.1 (0.9-1.1); Prothrombin Time 12.1 SEC (9.9-13.0)
[2021-07-20 13:17] LABS: D Dimer 1037 NG/ML
[2021-07-20] MEDS: iohexoL 350 MG/ML 100 ML INFUS..BTL IV (15:28)
[2021-07-20 16:00] VITALS: BP 113/78; PULSE 89; RESP 18; O2SAT 98
[2021-07-20] MEDS: Cyclobenzaprine HCl 5 MG TABLET PO (16:49)
[2021-07-20] MEDS: Acetaminophen 325 MG TABLET 650 MG PO (16:49)
[2021-07-20] MEDS: Lidocaine 4 % Patch ADH..PATCH 1 PATCH TRANSDERMA (16:49)
== END 2021-07-20 16:57 | disposition home or self-care (01) ==
PROVIDERS: Nurse Practitioner Family; Emergency Provider Emergency Medicine Emergency Medical Services; PCP Family Medicine
DX: R07.89 Other chest pain (principal); R60.0 Localized edema; Z20.822 Contact with and (suspected) exposure to COVID-19; Z79.899 Other long term (current) drug therapy; F17.210 Nicotine dependence, cigarettes, uncomplicated; Z71.6 Tobacco abuse counseling
CPT/HCPCS: 36415; 71046; 71275; 80048; 80076; 83690; 84484; 85025; 85379; 85610; 87635; 93005; 93970; 99284; Q9967

== ENCOUNTER → 2021-08-08 08:49 | Outpatient (BNVA) | payer MEDICARE, SELFPAY | PROVIDERS: PCP Family Medicine; Visit Provider Nurse Practitioner Family | DX: M05.9 Rheumatoid arthritis with rheumatoid factor, unspecified (principal); R07.9 Chest pain, unspecified; R01.1 Cardiac murmur, unspecified; Z79.52 Long term (current) use of systemic steroids | CPT/HCPCS: 99212 ==

== ENCOUNTER 2021-08-19 10:36 | Outpatient (REF) | payer MEDICARE, SELFPAY ==
[2021-08-19 10:44] LABS: MANUAL DIFF FLAG NO
[2021-08-19 11:28] LABS: Basophils Percent Auto 0.2 % (0-2); Eosinophils Absolute Auto 0.1 X10*3/uL (0.0-0.4); Eosinophils Percent Auto 0.3 % (0-4); Hematocrit 41.5 % (42-52); Hemoglobin 13.1 g/dl (14.0-18.0); Imm Gran Abs Auto 0.15 X10*3/uL (0.00-0.03); Imm Gran Pct Auto 0.9 % (0.0-0.4); Lymphocytes Absolute Auto 2.2 X10*3/uL (1.2-4.9); Lymphocytes Percent Auto 14.1 % (20-40); Mean Corpuscular HGB Conc 31.6 g/dl (31.0-36.0); Mean Corpuscular Hemoglobin 27.2 pg (27.0-33.0); Mean Corpuscular Volume 86.3 fL (80-98); Mean Platelet Volume 9.7 fL (9.4-12.4); Monocytes Absolute Auto 0.5 X10*3/uL (0.1-1.2); Monocytes Percent Auto 3.3 % (2-11); Neutrophils Absolute Auto 12.9 X10*3/uL (2.0-8.3); Neutrophils Percent Auto 81.2 % (45-73); Platelet Count 295 X10*3/uL (160-400); Red Blood Count 4.81 X10*6/uL (4.60-5.80); Red Cell Distribution Width 19.3 % (11.0-16.0); White Blood Count 15.9 X10*3/uL (4.8-10.8)
[2021-08-19 11:49] LABS: Alanine Aminotransferase 27 U/L (0-40); Albumin Level 4.5 g/dL (3.5-5.0); Alkaline Phosphatase 128 U/L (39-117); Anion Gap 20 (12-20); Aspartate Amino Transferase 13 U/L (5-37); Bilirubin Total 0.5 mg/dL (0.0-1.0); Blood Urea Nitrogen 9 mg/dL (9-16); C Reactive Protein 0.11 mg/dL (< or = 0.50); Calcium 10.2 mg/dL (8.4-10.2); Carbon Dioxide 22 mmol/L (22-29); Chloride 101 mmol/L (96-108); Estimated Glomerular Filt Rate > 60; Glucose Random 192 mg/dL (60-115); Potassium 4.2 mmol/L (3.3-5.1); Sodium 139 mmol/L (135-145); Total Protein 7.5 g/dL (6.5-8.0); Uric Acid 4.7 mg/dL (3.4-7.0)
[2021-08-19 12:17] LABS: Erythrocyte Sedimentation Rate 12 MM/HR (0-15)
== END 2021-08-19 10:37 | disposition home or self-care (01) ==
LOC: HO.LAB 10:36
PROVIDERS: PCP Family Medicine; Visit Provider Nurse Practitioner Family
DX: M05.9 Rheumatoid arthritis with rheumatoid factor, unspecified (principal)
CPT/HCPCS: 36415; 80053; 84550; 85025; 85652; 86140

== ENCOUNTER → 2021-08-25 13:18 | Outpatient (BNVA) | payer MEDICARE, SELFPAY | PROVIDERS: PCP Family Medicine; Visit Provider Nurse Practitioner Family | DX: M05.9 Rheumatoid arthritis with rheumatoid factor, unspecified (principal); M81.0 Age-related osteoporosis without current pathological fracture; R00.1 Bradycardia, unspecified; I10 Essential (primary) hypertension; F17.210 Nicotine dependence, cigarettes, uncomplicated; Z88.8 Allergy status to other drugs, medicaments and biological substances; Z79.52 Long term (current) use of systemic steroids; Z79.899 Other long term (current) drug therapy | CPT/HCPCS: 99212 ==

== ENCOUNTER 2021-08-27 11:35 | Outpatient (REF) | payer MEDICARE, SELFPAY ==
[2021-08-27 13:57] LABS: Erythrocyte Sedimentation Rate 32 MM/HR (0-15)
[2021-08-28 09:33] LABS: HBS Num1 2.21 mIU/mL (0-7.99); HBc Num1 0.09 S/CO (0.00-0.79); HBsAGNum1 0.14 S/CO (0.00-0.99); Hepatitis B Core Antibody Nonreactive (Nonreactive); Hepatitis B Surface Antigen Negative (Negative); ~HepC Num1 0.12 S/CO (0.00-0.79); ~Hepatitis B Surface Antibody NONREACTIVE (Nonreactive); ~Hepatitis C Antibody Nonreactive (Nonreactive)
[2021-08-29 06:51] LABS: Hepatitis A Antibody IgM 0.25 Index (0-0.79); ~Hepatitis A Antibody IgM Nonreactive (Nonreactive)
[2021-08-29 18:22] LABS: TS Negative Control Passed; TS Panel A 0; TS Panel B 0; TS Positive Control Passed; TSpotTB Negative (Negative)
== END 2021-08-27 11:36 | disposition home or self-care (01) ==
LOC: HO.LAB 11:35
PROVIDERS: PCP Student in an Organized Health Care Education/Training Program; Visit Provider Nurse Practitioner Family
DX: M05.9 Rheumatoid arthritis with rheumatoid factor, unspecified (principal)
CPT/HCPCS: 36415; 85652; 86140; 86481; 86704; 86706; 86709; 86803; 87340

== ENCOUNTER → 2021-09-04 09:06 | Outpatient (BNVA) | payer MEDICARE, SELFPAY | PROVIDERS: PCP Family Medicine; Referring Provider Nurse Practitioner Family; Visit Provider Internal Medicine Cardiovascular Disease | DX: R07.9 Chest pain, unspecified (principal); R01.1 Cardiac murmur, unspecified | CPT/HCPCS: 99202 ==

== ENCOUNTER 2021-09-05 23:56 | Emergency (ER) | payer MEDICARE, SELFPAY ==
--- NOTE | ~2021-09-05 | XR_ITS ---
EXAMINATION: XR SHOULDER, RIGHT XR ELBOW, RIGHT XR FOREARM, RIGHT XR HAND WRIST, RIGHT CLINICAL INFORMATION: FOOSH pain to forearm, shoulder, elbow, hand COMPARISON: Shoulder radiograph dated 12/31/2020. TECHNIQUE: 3 views of the right shoulder. AP and lateral views of the right elbow. AP and lateral views of the right forearm. 3 views of the right hand and wrist. FINDINGS: Right shoulder: Moderate acromioclavicular and glenohumeral osteoarthritis. There is cephalad migration of the humeral head which suggests a chronic rotator cuff tear. Bones are osteopenic. No acute fracture or malalignment. Punctate focus of calcific tendinitis in the region of the pectoralis major insertion on the proximal humerus. Degenerative spondylosis in the cervical spine. Right elbow: Minimal osteoarthritis is characterized by small marginal osteophytes. Joint are spaces well-preserved. No fracture or malalignment. No joint effusion. Soft tissues are unremarkable. Right forearm: There is a transverse, comminuted distal radial fracture at the level of metaphysis with dorsal displacement of the distal fragments. No appreciable ulnar fracture. Remainder of the radius and ulna are intact. Soft tissues are swollen at the wrist. Right hand and wrist: Again seen is the mild comminuted transverse distal radial metaphyseal fracture with dorsal displacement and foreshortening of the distal fracture fragments. There is posttraumatic positive ulnar variance. No additional acute fractures are identified. Old healed fifth metacarpal fracture. Minimal osteoarthritis in the interphalangeal joints. XR/XR hand wrist RT IMPRESSION: Transverse distal radial metaphyseal fracture with dorsal displacement of the distal fracture fragments. No additional fractures in the right shoulder, elbow, forearm and hand/wrist. Moderate acromioclavicular and glenohumeral osteoarthrosis. Relative cephalad migration of the humeral head raises the possibility of a chronic rotator cuff tear.
--- NOTE | ~2021-09-05 | XR_ITS ---
EXAMINATION: XR WRIST, RIGHT CLINICAL INFORMATION: R WRIST POST REDUCTION COMPARISON: 09/06/2021 TECHNIQUE: PA, lateral, and oblique views of the right wrist. FINDINGS: Alignment of the comminuted transverse distal radial metaphyseal fracture is markedly improved status post splinting and reduction. There is slight persistent dorsal tilt of the distal radial articular surface. There has been estimation of mild positive ulnar variance. No appreciable ulnar fractures. Soft tissues are swollen. XR/XR wrist RT min 3V IMPRESSION: Markedly improved alignment of the distal radial fracture status post splinting and closed reduction.
--- NOTE | ~2021-09-05 | XR_ITS ---
EXAMINATION: XR SHOULDER, RIGHT XR ELBOW, RIGHT XR FOREARM, RIGHT XR HAND WRIST, RIGHT CLINICAL INFORMATION: FOOSH pain to forearm, shoulder, elbow, hand COMPARISON: Shoulder radiograph dated 12/31/2020. TECHNIQUE: 3 views of the right shoulder. AP and lateral views of the right elbow. AP and lateral views of the right forearm. 3 views of the right hand and wrist. FINDINGS: Right shoulder: Moderate acromioclavicular and glenohumeral osteoarthritis. There is cephalad migration of the humeral head which suggests a chronic rotator cuff tear. Bones are osteopenic. No acute fracture or malalignment. Punctate focus of calcific tendinitis in the region of the pectoralis major insertion on the proximal humerus. Degenerative spondylosis in the cervical spine. Right elbow: Minimal osteoarthritis is characterized by small marginal osteophytes. Joint are spaces well-preserved. No fracture or malalignment. No joint effusion. Soft tissues are unremarkable. Right forearm: There is a transverse, comminuted distal radial fracture at the level of metaphysis with dorsal displacement of the distal fragments. No appreciable ulnar fracture. Remainder of the radius and ulna are intact. Soft tissues are swollen at the wrist. Right hand and wrist: Again seen is the mild comminuted transverse distal radial metaphyseal fracture with dorsal displacement and foreshortening of the distal fracture fragments. There is posttraumatic positive ulnar variance. No additional acute fractures are identified. Old healed fifth metacarpal fracture. Minimal osteoarthritis in the interphalangeal joints. XR/XR shoulder RT min 2V IMPRESSION: Transverse distal radial metaphyseal fracture with dorsal displacement of the distal fracture fragments. No additional fractures in the right shoulder, elbow, forearm and hand/wrist. Moderate acromioclavicular and glenohumeral osteoarthrosis. Relative cephalad migration of the humeral head raises the possibility of a chronic rotator cuff tear.
--- NOTE | ~2021-09-05 | XR_ITS ---
EXAMINATION: XR SHOULDER, RIGHT XR ELBOW, RIGHT XR FOREARM, RIGHT XR HAND WRIST, RIGHT CLINICAL INFORMATION: FOOSH pain to forearm, shoulder, elbow, hand COMPARISON: Shoulder radiograph dated 12/31/2020. TECHNIQUE: 3 views of the right shoulder. AP and lateral views of the right elbow. AP and lateral views of the right forearm. 3 views of the right hand and wrist. FINDINGS: Right shoulder: Moderate acromioclavicular and glenohumeral osteoarthritis. There is cephalad migration of the humeral head which suggests a chronic rotator cuff tear. Bones are osteopenic. No acute fracture or malalignment. Punctate focus of calcific tendinitis in the region of the pectoralis major insertion on the proximal humerus. Degenerative spondylosis in the cervical spine. Right elbow: Minimal osteoarthritis is characterized by small marginal osteophytes. Joint are spaces well-preserved. No fracture or malalignment. No joint effusion. Soft tissues are unremarkable. Right forearm: There is a transverse, comminuted distal radial fracture at the level of metaphysis with dorsal displacement of the distal fragments. No appreciable ulnar fracture. Remainder of the radius and ulna are intact. Soft tissues are swollen at the wrist. Right hand and wrist: Again seen is the mild comminuted transverse distal radial metaphyseal fracture with dorsal displacement and foreshortening of the distal fracture fragments. There is posttraumatic positive ulnar variance. No additional acute fractures are identified. Old healed fifth metacarpal fracture. Minimal osteoarthritis in the interphalangeal joints. XR/XR forearm RT 2V IMPRESSION: Transverse distal radial metaphyseal fracture with dorsal displacement of the distal fracture fragments. No additional fractures in the right shoulder, elbow, forearm and hand/wrist. Moderate acromioclavicular and glenohumeral osteoarthrosis. Relative cephalad migration of the humeral head raises the possibility of a chronic rotator cuff tear.
[2021-09-06] VITALS (12 sets, daily range): BP systolic 133–157; BP diastolic 82–92; PULSE 83–105; RESP 14–18; TEMP 36.7; O2SAT 96–99; BMI 27.4
--- NOTE | 2021-09-06 00:08 | ED.EXTPRO ---
HPI - Extremity Problem General Chief complaint: Extremity Problem Stated complaint: wrist pain Time Seen by Provider: 09/06/21 00:03 Source: patient Mode of arrival: ambulatory Limitations: no limitations History of Present Illness HPI Narrative: 75-year-old male past history of arthritis on daily 5 mg of prednisone, asthma, COPD, GERD, history of prostate cancer, hypertension presents to emergency department with right-sided hand pain, elbow pain, shoulder pain x1 hour. Patient states he got into a verbal altercation with a neighbor, he states that he tripped and fell back onto an open hand. He states he immediately started having pain to his right upper extremity. He states that the pain is a 10/10, he describes as constant, and throbbing. He states he has never had pain like this before. He states he is unable to move his right hand, or wrist. When he fell, he did not hit his head. He is right-hand dominant. Patient is not on blood thinners. Patient denies chest pain, shortness of breath, fevers, chills, paresthesias, numbness, tingling. MD Complaint: extremity pain, extremity swelling and joint swelling Onset (ago): hour(s) (1) Pain Consistency: constant Location: right Severity scale (1-10): >10 Quality: stabbing Radiation: none Relieving factors: nothing Exacerbating factors: range of motion Associated symptoms: denies other symptoms Related Data Home Medications Medication Instructions Recorded Confirmed albuterol sulfate 90 mcg/actuation 2 puff INHALATION Q4H PRN 08/01/20 09/04/21 aerosol inhaler atorvastatin 40 mg tablet 40 mg PO BEDTIME 08/01/20 09/04/21 cholecalciferol (vitamin D3) 25 25 mcg PO DAILY 08/01/20 09/04/21 mcg (1,000 unit) tablet docusate sodium 100 mg capsule 100 mg PO BID 08/01/20 09/04/21 (Colace) fluticasone propionate 220 2 puff INHALATION BID 08/01/20 09/04/21 mcg/actuation HFA aerosol inhaler melatonin 3 mg tablet 3 mg PO BEDTIME PRN 08/01/20 09/04/21 omeprazole 20 mg capsule,delayed 20 mg PO QAM 08/01/20 09/04/21 release sennosides 8.6 mg tablet 17.2 mg PO BEDTIME PRN 08/01/20 09/04/21 umeclidinium 62.5 mcg/actuation 1 inh INHALATION BEDTIME 08/01/20 09/04/21 blister powder for inhalation (Incruse Ellipta) amlodipine 5 mg tablet 10 mg PO DAILY tab 12/04/20 09/04/21 Previous Rx's Medication Instructions Recorded oxycodone-acetaminophen 5 mg-325 1 - 2 tab PO Q4-6H PRN #30 tab 08/23/20 mg tablet (Percocet) cyclobenzaprine 10 mg tablet 10 mg PO TID PRN #10 tab 09/09/20 prednisone 5 mg tablet 5 mg PO DAILY #30 tab 04/18/21 cyclobenzaprine 5 mg tablet 5 mg PO TID PRN #10 tab 07/20/21 lidocaine 5 % topical patch 1 patch TOPICAL DAILY #15 ea 07/20/21 (Lidoderm) alendronate 70 mg tablet 70 mg PO QWEEK #12 tab 07/21/21 folic acid 1 mg tablet 1 mg PO DAILY #90 tab 08/08/21 adalimumab 40 mg/0.4 mL See Rx Instructions SUBCUT 09/02/21 subcutaneous pen kit (Humira(CF) .COMPLEX #2 ea Pen) methotrexate (PF) 25 mg/0.5 mL 25 mg (0.5 mL) SUBCUT QWEEK #2 ml 09/03/21 subcutaneous auto-injector (Rasuvo (PF)) morphine 15 mg immediate release 15 mg PO Q6H PRN #10 tab 09/06/21 tablet Allergies Allergy/AdvReac Type Severity Reaction Status Date / Time lisinopril [LISINOPRIL] Allergy Severe Angioedema Verified 08/25/21 13:35 LAITH inhibitors AdvReac Unknown angioedema Uncoded 08/25/21 13:35 Review of Systems Review of Systems: Constitutional : No Weight loss, No Fever, No Chills, No Fatigue, No Malaise Eyes: No Eye Pain, No Swelling, No Redness Cardiovascular : No Chest Pain, No SOB, No Dyspnea on Exertion, No Orthopnea, No Edema, No Palpitations Respiratory : No Cough, No Sputum, No Wheezing Gastrointestinal : No Nausea, No Vomiting, No Diarrhea, No Constipation, No abdominal Pain, No Hematochezia, No Melena Genitourinary : No Dysuria, No Urinary Frequency, No Hematuria, Musculoskeletal : + joint pain, No Myalgias, + Joint Swelling, + right wrist deformity Skin : No Skin Lesions, No rash Neuro : No Weakness, No Numbness, No Dizziness, No Headache All other systems reviewed and are negative [facility] Past Medical History Attestation statement: The following information was validated with the patient. 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 Osteoporosis Seropositive rheumatoid arthritis Surgical History History of arthroscopy of left shoulder History of back surgery History of colonoscopy History of prostate surgery History of removal of cyst History of tonsillectomy and adenoidectomy Hx of eye surgery Family History Family History Mother History of breast cancer, Onset Age: 87 Father History of asthma Social History Social History Alcohol intake: former Cigarette Packs Per Day: 0.33 Cigarettes Per Day: 6.6 Years Smoked: 58 e-Cigarette/Vaping Use: Never Used Advance Directives: No Advance Directives Information Provided: No Gender identity: Male Physical Exam Vital Signs: Vital Signs: Last Vital Signs Temp 98.0 F 09/06/21 00:11 Pulse 91 09/06/21 03:18 Resp 14 09/06/21 03:18 BP 138/85 09/06/21 03:18 Pulse Ox 96 09/06/21 03:18 Oxygen Flow Rate 4 09/06/21 03:18 Body Mass Index 27.4 Appearance: Alert.? Oriented X3.? No acute distress.? Head: Atraumatic, normocephalic, no step-offs or deformities. Eyes: Pupils equal, round and reactive to light.? ENT: Pharynx normal.? Neck: Normal inspection.? Neck supple.? CVS: Normal heart rate and rhythm.? Pulses normal.? Respiratory: No respiratory distress.? Breath sounds normal.? Abdomen: Soft and nontender.? Skin: Skin warm and dry.? Normal skin color.? Normal skin turgor.? Extremities: No lower extremity edema.? + pain to palpation over right hand, wrist, elbow, shoulder + Swelling and dorsal angulation to right wrist. + limited range of motion to right hand, wrist, elbow, shoulder due to pain. Bilateral radial pulses 2+ equal and bilateral. Capillary refill less than 2 seconds. Neuro: Oriented X 3.? No motor deficit.? No sensory deficit. Sensation, and motor intact to bilateral upper and lower extremities. Course Reevaluation(s) Reevaluation #1: Lab show no acute infection, baseline normocytic anemia is noted, no acute electrolyte abnormalities, coags normal. Xrays show a transverse distal radial metaphyseal fracture with dorsal displacement. A hematoma block will be attempted, as well as manual reduction at the bedside. Time: 01:03 Reevaluation #2: Patient did not tolerate hematoma block, conscious sedation will be done at the bedside using propofol. Time: 02:37 Reevaluation #3: A time out was done at the bedside followed by conscious sedation at the bedside with using propafol 60 mg. Respiratory and nursing at the bedside. Fx were hyperexageratted with traction and counter traction was able to reduce. Patient tolerated procedure well. Vital signs were stable throughout the entire procedure. Patient was placed in a right sugar-tong splint. Post reduction film ordered. Post reduction patients sensory and motor intact, capillary refill <2, patient able to wiggle fingers Time: 03:00 Additional Reevaluation(s): 0426 TT to Miracle PAIZ who states post reduction films look good. She would like him to have outpatient ortho follow up. He is safe for DC home with Ortho follow up this week. He has been advised to return to the emergency department with new or worsening symptoms. MDM - Extremity (Nontraumatic) MDM Narrative Medical decision making narrative: 0008 75-year-old male past history of arthritis on daily 5 mg of prednisone, asthma, COPD, GERD, hx of prostate cancer, HTN presents to emergency department with 10/10 right-sided wrist, hand, elbow, shoulder pain status post fall an hour prior to his arrival. Patient states he fell on an open outstretched hand. He did not hit his head, or lose consciousness when he fell. Patient is not on blood thinners. Patient denies numbness, tingling, chest pain, shortness of breath. Upon physical examination there is pain to palpation over right hand, wrist, elbow, shoulder. There is also swelling and dorsal angulation to right wrist. Limited range of motion to right hand, wrist, elbow, shoulder due to pain. Bilateral radial pulses 2+ equal and bilateral. Capillary refill less than 2 seconds. Sensory and motor intact to bilateral upper extremities. Head is normocephalic, atraumatic. Lungs are clear to auscultation. S1-S2 appreciated. Abdomen soft nontender nondistended. Plan at this time is to obtain plain films to rule out fracture. Patient will be medicated with morphine for pain. Lab Data Result diagrams: 09/06/21 00:20 09/06/21 00:20 Labs: Lab Results 09/06/21 09/06/21 09/06/21 Range/Units 00:20 00:20 00:20 WBC 11.8 H (4.8-10.8) X10*3/uL RBC 4.86 (4.60-5.80) X10*6/uL Hgb 13.1 L (14.0-18.0) g/dl Hct 41.4 L (42.0-52.0) % MCV 85.2 (80.0-98.0) fL MCH 27.0 (27.0-33.0) pg MCHC 31.6 (31.0-36.0) g/dl RDW 18.7 H (11.0-16.0) % Plt Count 309 (160-400) X10*3/uL MPV 9.7 (9.4-12.4) fL Immature Gran % (Auto) 0.6 H (0.0-0.4) % Neut % (Auto) 60.3 (45-73) % Lymph % (Auto) 30.7 (20-40) % [place] % (Auto) 7.4 (2-11) % Eos % (Auto) 0.8 (0-4) % Baso % (Auto) 0.2 (0-2) % Lymph # (Auto) 3.6 (1.2-4.9) X10*3/uL [place] # (Auto) 0.9 (0.1-1.2) X10*3/uL Eos # (Auto) 0.1 (0.0-0.4) X10*3/uL Baso # (Auto) 0.0 (0.0-0.2) X10*3/uL Abs Immat Gran (auto) 0.07 H (0.00-0.03) X10*3/uL Absolute Neuts (auto) 7.1 (2.0-8.3) x10*3/uL Absolute Nucleated RBC 0.000 (0.0-0.012) X10*3/uL Nucleated RBC % (auto) 0.0 (0.0-0.2) /100WBC PT 10.6 (9.9-13.0) SEC INR 0.9 (0.9-1.1) Sodium 141 (135-145) mmol/L Potassium 3.7 (3.3-5.1) mmol/L Chloride 105 (96-108) mmol/L Carbon Dioxide 24 (22-29) mmol/L Anion Gap 16 (12-20) BUN 14 D (9-16) mg/dL Creatinine 0.76 (0.5-1.4) mg/dL Estim Creat Clear Calc 84.6 Estimated GFR > 60 Random Glucose 120 H D (60-115) mg/dL Calcium 9.9 (8.4-10.2) mg/dL Total Bilirubin 0.6 (0.0-1.0) mg/dL AST 13 (5-37) U/L ALT 21 (0-40) U/L Alkaline Phosphatase 117 (39-117) U/L Total Protein 7.4 (6.5-8.0) g/dL Albumin 4.4 (3.5-5.0) g/dL Imaging Data Right hand/wrist, forearm, elbow, shoulder xray: Attestation: I personally reviewed and interpreted this imaging study as follows: Radiologist's impression: XR/XR elbow RT 2V IMPRESSION: Transverse distal radial metaphyseal fracture with dorsal displacement of the distal fracture fragments. ? No additional fractures in the right shoulder, elbow, forearm and hand/wrist. ? Moderate acromioclavicular and glenohumeral osteoarthrosis. Relative cephalad migration of the humeral head raises the possibility of a chronic rotator cuff tear. Discharge Plan Discharge Clinical Impression: Colles' fracture Qualifiers: Encounter type: initial encounter Fracture type: closed Laterality: right Qualified Code(s): S52.531A - Colles' fracture of right radius, initial encounter for closed fracture Elbow pain Qualifiers: Laterality: right Qualified Code(s): M25.521 - Pain in right elbow Shoulder pain Qualifiers: Chronicity: acute Laterality: right Qualified Code(s): M25.511 - Pain in right shoulder Fall Qualifiers: Encounter type: initial encounter Qualified Code(s): W19.XXXA - Unspecified fall, initial encounter Patient Disposition: Home, Self-Care Instructions: Wrist Fracture in Adults (ED), Fall Prevention (ED), Shoulder Pain (ED) Additional Instructions: Take your medications as prescribed. You may also take tylenol extra strength (2 pills every 4-6 hours) as needed for pain Follow-up with your primary care provider this week and orthopedics Return to the emergency department with new or worsening symptoms. In case of emergency call 911 [place] rolando medicamentos seg?n lo prescrito. Puedes tambien gopi tylenol Seguimiento con freeman proveedor de atenci?n primaria esta semana y ortopedia Regrese al departamento de emergencias con s?ntomas nuevos o que empeoran. En ivis de emergencia llame al 911 Prescriptions: New morphine 15 mg tablet 15 mg PO Q6H PRN (Reason: pain) Qty: 10 RF: 0 No Action amlodipine 5 mg tablet 10 mg PO DAILY RF: 0 alendronate 70 mg tablet 70 mg PO QWEEK Qty: 12 RF: 1 Humira(CF) Pen 40 mg/0.4 mL pen injector kit See Rx Instructions subcut .COMPLEX Qty: 2 RF: 2 Rasuvo (PF) 25 mg/0.5 mL auto-injector 25 mg subcut QWEEK Qty: 2 RF: 2 oxycodone-acetaminophen [Percocet] 5-325 mg tablet 1 - 2 tab PO Q4-6H PRN (Reason: pain) Qty: 30 RF: 0 cyclobenzaprine 10 mg tablet 10 mg PO TID PRN (Reason: muscle spasm) Qty: 10 RF: 0 cyclobenzaprine 5 mg tablet 5 mg PO TID PRN (Reason: muscle spasm) Qty: 10 RF: 0 lidocaine [Lidoderm] 5 % adhesive patch,medicated 1 patch topical DAILY Qty: 15 RF: 0 atorvastatin 40 mg tablet 40 mg PO BEDTIME RF: 0 cholecalciferol (vitamin D3) 25 mcg (1,000 unit) tablet 25 mcg PO DAILY RF: 0 albuterol sulfate 90 mcg/actuation HFA aerosol inhaler 2 puff inhalation Q4H PRN (Reason: dyspnea) RF: 0 omeprazole 20 mg capsule,delayed release(DR/EC) 20 mg PO QAM RF: 0 melatonin 3 mg tablet 3 mg PO BEDTIME PRN (Reason: insomnia) RF: 0 sennosides 8.6 mg tablet 17.2 mg PO BEDTIME PRN (Reason: constipation) RF: 0 fluticasone propionate 220 mcg/actuation HFA aerosol inhaler 2 puff inhalation BID RF: 0 Incruse Ellipta 62.5 mcg/actuation blister with device 1 inh inhalation BEDTIME RF: 0 docusate sodium [Colace] 100 mg capsule 100 mg PO BID RF: 0 prednisone 5 mg tablet 5 mg PO DAILY Qty: 30 RF: 4 folic acid 1 mg tablet 1 mg PO DAILY Qty: 90 RF: 1 Referrals: Cedric Lujan MD [Physician] - 2 days Stand Alone Forms: Work/School Release Print Language: Tajik
[2021-09-06] MEDS: Morphine Sulfate 4 MG/ML CARTRIDGE IVPUSH ×2 (00:17→01:38)
[2021-09-06 00:25] LABS: MANUAL DIFF FLAG NO
--- NOTE | 2021-09-06 00:34 | PC.NURSE ---
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 PT C/O RIGHT ARM/WRIST/HAND PAIN. IV PLACED TO LAC, LABS DRAWN TO LAB AND X-RAY IN ROOM FOR EVAL. PT MEDICATED WITH MORPHINE PER EMAR FOR PAIN. WILL CONTINUE TO MONITOR PT.
[2021-09-06 00:36] LABS: Basophils Percent Auto 0.2 % (0-2); Eosinophils Absolute Auto 0.1 X10*3/uL (0.0-0.4); Eosinophils Percent Auto 0.8 % (0-4); Hematocrit 41.4 % (42.0-52.0); Hemoglobin 13.1 g/dl (14.0-18.0); Imm Gran Abs Auto 0.07 X10*3/uL (0.00-0.03); Imm Gran Pct Auto 0.6 % (0.0-0.4); Lymphocytes Absolute Auto 3.6 X10*3/uL (1.2-4.9); Lymphocytes Percent Auto 30.7 % (20-40); Mean Corpuscular HGB Conc 31.6 g/dl (31.0-36.0); Mean Corpuscular Volume 85.2 fL (80.0-98.0); Mean Platelet Volume 9.7 fL (9.4-12.4); Monocytes Absolute Auto 0.9 X10*3/uL (0.1-1.2); Monocytes Percent Auto 7.4 % (2-11); Neutrophils Absolute Auto 7.1 x10*3/uL (2.0-8.3); Neutrophils Percent Auto 60.3 % (45-73); Platelet Count 309 X10*3/uL (160-400); Red Blood Count 4.86 X10*6/uL (4.60-5.80); Red Cell Distribution Width 18.7 % (11.0-16.0); White Blood Count 11.8 X10*3/uL (4.8-10.8)
[2021-09-06 00:46] LABS: INTERNATIONAL NORM RATIO 0.9 (0.9-1.1); Prothrombin Time 10.6 SEC (9.9-13.0)
[2021-09-06 00:48] LABS: Alanine Aminotransferase 21 U/L (0-40); Albumin Level 4.4 g/dL (3.5-5.0); Alkaline Phosphatase 117 U/L (39-117); Anion Gap 16 (12-20); Aspartate Amino Transferase 13 U/L (5-37); Bilirubin Total 0.6 mg/dL (0.0-1.0); Blood Urea Nitrogen 14 mg/dL (9-16); Calcium 9.9 mg/dL (8.4-10.2); Carbon Dioxide 24 mmol/L (22-29); Chloride 105 mmol/L (96-108); Creatinine Clr Calc Pharmacy 84.6; Estimated Glomerular Filt Rate > 60; Glucose Random 120 mg/dL (60-115); Potassium 3.7 mmol/L (3.3-5.1); Sodium 141 mmol/L (135-145); Total Protein 7.4 g/dL (6.5-8.0)
[2021-09-06] MEDS: Lidocaine HCl 1 % 20 ML VIAL 5 ML SUBCUT ×2 (01:15→01:16)
--- NOTE | 2021-09-06 02:45 | PC.NURSE ---
PROCEDURE STARTED AT THIS TIME. PT RECEIVED 60MG OF DIPROVAN IVP PER EMAR. MD WAS ABLE TO REDUCE THE ARM BACK IN PLACE. PT TOLERATED WELL. VS OBTAINED. SEE PROCEDURE INFORMATION. SPLINT APPLIED TO ARM. PT TOLERATED PROCEDURE WELL. PT REMAINS ON MONITOR. PT IN NAD.
[2021-09-06] MEDS: propofoL 200 MG/20 ML VIAL 80 MG IVPUSH (02:58)
== END 2021-09-06 05:08 | disposition home or self-care (01) ==
PROVIDERS: Physician Assistant; Emergency Provider Emergency Medicine Emergency Medical Services
DX: S52.531A Colles' fracture of right radius, initial encounter for closed fracture (principal); M25.521 Pain in right elbow; M25.511 Pain in right shoulder; M79.601 Pain in right arm; I10 Essential (primary) hypertension; F17.210 Nicotine dependence, cigarettes, uncomplicated; W01.0XXA Fall on same level from slipping, tripping and stumbling without subsequent striking against object, initial encounter; Y93.9 Activity, unspecified; Y92.9 Unspecified place or not applicable; Y99.9 Unspecified external cause status; Z71.6 Tobacco abuse counseling; Z79.899 Other long term (current) drug therapy
CPT/HCPCS: 36415; 73030; 73070; 73090; 73110; 73130; 80053; 85025; 85610; 96374; 96375; 96376; 99152; 99284; 99285; J2270

== ENCOUNTER 2021-09-09 07:23 | Outpatient (REF) | payer MEDICARE, SELFPAY ==
--- NOTE | ~2021-09-09 | XR_ITS ---
EXAMINATION: XR WRIST, RIGHT CLINICAL INFORMATION: Wrist pain COMPARISON: 09/06/2021 TECHNIQUE: PA, lateral, and oblique views of the right wrist. FINDINGS: The osseous detail is partially obscured by overlying splint. Again noted is markedly improved positioning of radial fracture fragments compared to 09/06/2021 at 12:23 AM. There is mild residual displacement of the distal radial fragments with approximately 0.3 cm of cortical bone offset noted anteriorly. There is 20 degrees dorsal tilt of the radial articular surface. Carpal bones are intact and have normal alignment on the PA view. The alignment is more difficult to evaluate on the lateral due to slight oblique positioning on this projection. There is an old, healed fracture of the fifth metacarpal. XR/XR wrist RT min 3V IMPRESSION: Currently, no evidence of healing of the mildly displaced transverse fracture of the distal radial metaphysis. There is no significant change in positioning of fragments compared to the postreduction radiographs from 09/06/2021.
== END 2021-09-09 07:24 | disposition home or self-care (01) ==
LOC: HO.HOSX 07:23
PROVIDERS: Visit Provider Physician Assistant
DX: S52.501A Unspecified fracture of the lower end of right radius, initial encounter for closed fracture (principal)
CPT/HCPCS: 73110; 99202

== ENCOUNTER → 2021-09-15 06:56 | Outpatient (REF) | payer MEDICARE, SELFPAY ==
--- NOTE | 2021-09-15 07:09 | CA_ITS ---
Transthoracic Echocardiogram Patient (Last, First, Middle): Patrice Jenkins, Gender: Male Date of : 1945 Age: 75 Procedure Date: 09/15/2021 Procedure Type: Transthoracic Echocardiogram Location: OP Height: 167.64 cm Weight: 77.57 kg BSA: 1.87 m2 Heart Rate: bpm BP: 120 / 80 mmHg Cvt Rn: VH/CP Referring MD: Judah Gregorio MD Symptoms: R01.1 - Cardiac murmur, unspecified Study Quality: Fair ECG Rhythm: Sinus Conclusions: - The left ventricular systolic function is normal. The visually estimated ejection fraction is between 60-65%. - Suspect bicuspid aortic valve with fusion of left and non coronary cusps. No significant stenosis or regurgitation. - There is mild aortic annular dilatation measuring 4.00 cm and mild dilatation of the ascending aorta measuring 4.30 cm. Findings Left Ventricle Normal left ventricular cavity size. There is mildly increased left ventricular wall thickness. The left ventricular systolic function is normal. The visually estimated ejection fraction is between 60-65%. There is no evidence of regional wall motion abnormalities. E/E prime ratio is between 8 and 15 consistent with indeterminate filling pressures. Evidence suggests grade I (mild) diastolic dysfunction. Right Ventricle Normal right ventricular cavity size and systolic function. Atria Both atria are normal in size. Aortic Valve There is no aortic valve stenosis. The peak aortic velocity is 2.27 m/s with a calculated peak gradient of 21 mmHg. The mean gradient is 12 mmHg. The aortic valve area is 2.65 cm2. There is no aortic valve regurgitation. Suspect bicuspid aortic valve with fusion of left and non-coronary cusps. Mitral Valve The mitral valve appears normal. There is trace mitral valve regurgitation. There is no mitral valve stenosis. Pulmonic Valve The pulmonic valve was not well visualized. Tricuspid Valve Normal tricuspid valve structure. There is trace tricuspid valve regurgitation. The pulmonary artery systolic pressure is normal. Great Vessels There is mild aortic annular dilatation measuring 4.00 cm and mild dilatation of the ascending aorta measuring 4.30 cm. Aortic arch measures 3.4cm. Venous The inferior vena cava is normal in size and collapses greater than 50% with inspiration. Pericardium/Pleural There is no evidence of pericardial effusion. Prior Study Comparison No prior study available for comparison. Measurements 2D Linear Measurements IVSd: 1.08 0.6-0.9/0.6-1.0 cm LVIDd: 4.76 3.9-5.3/4.2-5.9 cm LVIDd Index: 2.55 2.4-3.2/2.2-3.1 cm/m2 LVIDs: 3.49 2.0-3.6 cm LVPWd: 1.00 0.7-1.1 cm Ao Root: 4.00 2.1-3.5 cm LA Diam: 3.20 2.7-3.8/3.0-4.0 cm LAIDs Index: 1.71 1.5-2.3 cm/m2 LV Mass: 220.65 67-162/88-224 g LV Mass Index: 117.99 43-95/49-115 g/m2 LVOT Diam: 2.80 3.0+(-)1.3 cm Mitral Valve MV Pk E: 0.81 MV PK A: 1.15 MV Decel Time: 277.00 E/A: 0.70 E'Lateral: 6.31 E'Medial: 5.44 E/E' Med: 14.90 E/E' Lat: 12.80 PHT: 81.00 MVA PHT: 2.72 Decel Haines: 2.93 Aortic Valve AoV Pk Aston: 2.27 AoV Mn Aston: 1.64 AoV VTI: 0.46 AoV Pk Grad: 21.00 Aov Mn Grad: 12.00 RANULFO Cont.VTI: 2.65 LVOT LVOT Pk Aston: 0.93 LVOT Mn Aston: 0.65 LVOT VTI: 0.20 LVOT Pk Grad: 3.00 LVOT Mn Grad: 2.00 LVOT Diam: 2.80 LVOT Area: 6.16 Diastolic Function MV Pk E: 0.81 MV Pk A: 1.15 E/A: 0.70 E'Medial: 5.44 E/E' Med: 14.90 E' Laterial: 6.31 E/E' Lat: 12.80 Right Ventricle TAPSE (mm): 20.00 TVS' Aston: 14.00 Tricuspid Valve TR Pk Aston: 2.13 TR Pk Grad: 18.00 Great Vessels Aorta Ao Root-2D: 4.00 2.0-3.7 cm Ao Annulus: 4.00 1.4-2.6 cm Ao Asc: 4.30 2.1-3.4 cm Ao Arch: 3.40 Updated in Other Vendor System with Status of Final Volodymyr Curran MD electronically signed on 09/15/2021 9:33:28 AM with status of Final
== END ==
LOC: HO.CARD 06:56
PROVIDERS: PCP Family Medicine; Visit Provider Internal Medicine Cardiovascular Disease
DX: R01.1 Cardiac murmur, unspecified (principal)
CPT/HCPCS: 93306

== ENCOUNTER 2021-09-15 12:10 | Day surgery (SDC) | payer MEDICARE, SELFPAY ==
[2021-09-15] VITALS (8 sets, daily range): BP systolic 111–121; BP diastolic 64–74; PULSE 77–85; RESP 16–22; TEMP 36.7–37.2; O2SAT 92–98; BMI 27.6
--- NOTE | ~2021-09-15 | FL_ITS ---
EXAMINATION: XR FLUOROSCOPY WITH IMAGES CLINICAL INFORMATION: Open reduction internal fixation right radius. COMPARISON: 09/09/2021 wrist films. TECHNIQUE: Fluoroscopy performed by Dr. Nanette Canchola Fluoroscopy time: 38.9 seconds DAP: 65545.6 uGy Images: 3 FINDINGS: Imaging shows placement of a plate and screw device overlying the distal radial fracture with 8 screws present. FL/FL guidance in OR IMPRESSION: Fluoroscopy and spot films provided during open reduction internal fixation.
--- NOTE | 2021-09-15 13:02 | MHC.SHP ---
Pre-Procedural Eval Section A Date of Service: 09/15/21 The patient is an INPATIENT: No Changes since office visit: No Cold of Flu in the past 2 weeks, No New Medical Problems, No Changes in Medication and No Patient answered all questions The History & Physical has been completed within 30 days and I have reviewed it.: Yes Section B Chief Complaint: radius fx Allergies: Allergies Allergy/AdvReac Type Severity Reaction Status Date / Time lisinopril [LISINOPRIL] Allergy Severe Angioedema Verified 09/15/21 12:48 LAITH inhibitors AdvReac Unknown angioedema Uncoded 08/25/21 13:35 Exam Surgical H&P Exam: Significant Findings: Neurological Exam Comment: He has numbness in all the fingers of the right hand. Plan Diagnosis/Plan: Change (Patient with numbness in the fingers of the right hand. Indicated procedures: Right distal radius fracture ORIF and right carpal tunnel release) I have reviewed the history and physical and performed a pertinent physical examination on my patient. No changes have occurred unless specified.
--- NOTE | 2021-09-15 13:30 | MHC.SHP ---
Pre-Procedural Eval Section A Date of Service: 09/15/21 The patient is an INPATIENT: No Changes since office visit: No Cold of Flu in the past 2 weeks, No New Medical Problems, No Changes in Medication and No Patient answered all questions The History & Physical has been completed within 30 days and I have reviewed it.: Yes Section B Chief Complaint: radius fx Allergies: Allergies Allergy/AdvReac Type Severity Reaction Status Date / Time lisinopril [LISINOPRIL] Allergy Severe Angioedema Verified 09/15/21 12:48 LAITH inhibitors AdvReac Unknown angioedema Uncoded 08/25/21 13:35 Plan I have reviewed the history and physical and performed a pertinent physical examination on my patient. No changes have occurred unless specified.
--- NOTE | 2021-09-15 13:31 | P.OP_ITS ---
Operative Note Operative Note Date of Service: 09/15/21 Narrative: Operative Note Narrative: Preop diagnosis: 1. Right Distal radius fracture 2. Right carpal tunnel syndrome Postop diagnosis: Same Procedure: 1. Right Distal radius fracture open reduction internal fixation, extra- articular 2. Right carpal tunnel release Surgeon: Nanette Canchola MD Anesthesia: General plus regional block Findings: Distal radius fracture, extra-articular with dorsal comminution Implants: A 3 hole Accu Med standard volar locking plate, with 5 X 2.3 mm locking pegs/screws, and 3 3.5 mm cortical screws Tourniquet time: 74 minutes EBL: 5.0 ml Specimen: None Drains: None Complications: None Disposition: Brought to the recovery room in stable condition Plan: Follow-up in 10-14 days for wound check, suture removal and postop radiographs The patient will be placed in either a short-arm cast or a volar wrist splint. Encouraged no lifting of anything heavier than a cell phone. Please encourage active and passive range of motion of the digits. Follow-up at 4-5 weeks postop for repeat radiographs. Indications: The patient is a 75 year old man with a right distal radius fracture and dense numbness in all of the digits of his right hand consistent with carpal tunnel syndrome. The risks and benefits of operative treatment, including but not limited to risk of damage to blood vessels, nerves, tendons, infection, recurrence, persistent pain or numbness, incomplete resolution of preoperative symptoms, or need for further surgery were discussed with the patient and they wished to proceed with surgery. Procedure: Once consent was obtained patient was brought back to the operating suite and placed in the operating table in a supine position. A regional block was performed by the anesthesia team. Perioperative antibiotics and anesthesia was administered by the anesthesia team. A tourniquet was applied to the proximal aspect of the right upper extremity and the limb was prepped and draped in a standard surgical fashion. The limb was elevated exsanguinated with Esmarch bandage and the tourniquet inflated to 250 mm of mercury for a total tourniquet time of 74minutes. A 1.5 cm longitudinal incision was made centered over the right carpal tunnel. The incision was made through the skin to the subcutaneous tissues using a #15 blade. Dissection was made down to the level of the transverse carpal ligament with care being taken to protect the palmar cutaneous nerve. Once the transverse carpal ligament was clearly visualized, a longitudinal incision was made in the transverse carpal ligament 1st using a #15 blade, then using tenotomy scissors under direct visualization. Care was taken to look for and protect the motor branch of the median nerve when seen in this area. Once satisfied with our carpal tunnel release the wound was irrigated with normal saline. The skin edges were then reapproximated with some 5 0 Prolene suture material. Our attention was then turned to our distal radius fracture. The FluoroScan was used throughout the case to assess our reduction, and facilitate implant placement. He was noted to have a bit of a rash circumferential that was beneath his preoperative dressing and splint. No evidence of infection. Due to a longitudinal area of the rash right over the FCR tendon, I made an 8 cm longitudinal incision about a cm ulnar to and in line with the distal aspect of the flexor carpi radialis tendon. The incision was made through the skin to the subcutaneous tissue using a 15. Blade. Then carefully dissected down to flexor carpi radialis tendon she tenotomy scissors. The FCR tendon sheath was then incised longitudinally using tenotomy scissors under direct visualization. The FCR tendon was then retracted ulnarly. I then made a longitudinal incision in the volar forearm fascia through the floor of FCR tendon sheath using tenotomy scissors under direct visualization. I identified the interval between the radial artery and the flexor tendons. This interval was developed further with my index finger, releasing some of the muscular fibers of the flexor pollicis longus. A dull weatlander retractor was then placed. I then created an ulnarly based flap of the pronator quadratus by releasing the radial and distal edges using a 15. Blade. A Raymond elevator was used to elevate the pronator quadratus from the volar surface of the distal radius. This then revealed to us our distal radius fracture. An open reduction was then performed on our distal radius fracture. I then placed a short standard 3 hole Accu Med volar locking plate on the volar surface of the distal radius. I placed a single K-wire through the distal aspect of the plate and into the distal radius. This was assessed using fluoroscopic images. I was satisfied with the placement of our plate. I then placed 5 X 2.3 mm locking screws/pegs in the distal aspect of the plate and distal radius by 1st drilling bicortically with a 1.8 mm drill bit, measuring with a depth gauge, and placing the appropriate length locking screws/pegs. The placement of our plate and screws was then assessed again using fluoroscopic images. The once satisfied with the placement of the volar locking plate and screws on the distal aspect of the distal radius, the plate was then reduced to the shaft of the radius. I then placed 3 3.5 mm cortical screws to the proximal aspect of the plate and into the shaft of the radius. This was done by 1st drilling bicortically with a 2.8 mm drill bit, measuring with a depth gauge, and placing the appropriate length screw. Final radiographs were then obtained. The DRUJ was assessed and found to be stable on exam. I was satisfied with our reduction and placement of all implants. At this point the wound was irrigated with normal saline. The pronator quadratus was reduced back over the volar locking plate using some 4-0 Vicryl suture material. The tourniquet was then deflated and hemostasis was obtained with a brief period of local pressure and bipolar monopolar electrocautery. The subcutaneous layer was then reapproximated using some 4-0 Vicryl suture, and the skin edges were reapproximated using some 5 0 Prolene suture. The wound was then infiltrated with some 1% lidocaine with epinephrine postop pain control. A sterile dressing and a short dorsal splint allowing for active flexion and extension of the digits was applied. The patient appears to have tolerated the procedure well and with no complications. All digits were well vascularized conclusion of the case.
--- NOTE | 2021-09-15 13:40 | HO.ANESPROP2 ---
HPI - Anesthesia Eval Consult details Narrative: 75 yo male patient for ORIF Right radial fracture PMFSH Active Problems Active Problems: All Active Problems (Updated 09/09/21 @ 13:17 by Miracle Mccall PA-C) Fracture of right distal radius (Acute) Chest pain (Acute) Cardiac murmur (Acute) Umbilical hernia (Acute) Rotator cuff impingement syndrome of left shoulder (Acute) Abscess (Acute) [facility] systemic steroid user (Acute) Osteoporosis (Acute) Seropositive rheumatoid arthritis (Acute) Past Medical History Medical History Abscess Arthritis Asthma COPD (chronic obstructive pulmonary disease) GERD (gastroesophageal reflux disease) History of prostate cancer 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 Osteoporosis Seropositive rheumatoid arthritis Family History Family History Mother History of breast cancer, Onset Age: 87 Father History of asthma Family history of problems with anesthesia: No Surgical History Surgical History History of arthroscopy of left shoulder History of back surgery History of colonoscopy History of prostate surgery History of removal of cyst History of tonsillectomy and adenoidectomy Hx of eye surgery History of Problems with Anesthesia: No Social History Social History Alcohol intake: former Patient Tobacco Use Status: Current everyday Tobacco user Tobacco use type: Cigarette Cigarette Packs Per Day: 0.33 Cigarettes Per Day: 7 Years Smoked: 60 Smoked in Last 30 Days: Yes e-Cigarette/Vaping Use: Never Used Use of substances other than those prescribed or required for medical reasons: No Are you DNR?: No Advance Directives: No Advance Directives Information Provided: Yes Gender identity: Male Meds Allergies Allergy/AdvReac Type Severity Reaction Status Date / Time lisinopril [LISINOPRIL] Allergy Severe Angioedema Verified 09/15/21 12:48 LAITH inhibitors AdvReac Unknown angioedema Uncoded 08/25/21 13:35 Home Medications Medication Instructions Recorded Confirmed Last Taken Type albuterol sulfate 90 mcg/actuation 2 puff INHALATION Q4H PRN 08/01/20 09/04/21 08/23/20 07:30 History aerosol inhaler atorvastatin 40 mg tablet 40 mg PO BEDTIME 08/01/20 09/04/21 Unknown History cholecalciferol (vitamin D3) 25 25 mcg PO DAILY 08/01/20 09/04/21 Unknown History mcg (1,000 unit) tablet docusate sodium 100 mg capsule 100 mg PO BID 08/01/20 09/04/21 Unknown History (Colace) fluticasone propionate 220 2 puff INHALATION BID 08/01/20 09/04/21 Unknown History mcg/actuation HFA aerosol inhaler melatonin 3 mg tablet 3 mg PO BEDTIME PRN 08/01/20 09/04/21 Unknown History omeprazole 20 mg capsule,delayed 20 mg PO QAM 08/01/20 09/04/21 09/15/21 11:30 History release sennosides 8.6 mg tablet 17.2 mg PO BEDTIME PRN 08/01/20 09/04/21 Unknown History umeclidinium 62.5 mcg/actuation 1 inh INHALATION BEDTIME 08/01/20 09/04/21 Unknown History blister powder for inhalation (Incruse Ellipta) amlodipine 5 mg tablet 10 mg PO DAILY tab 12/04/20 09/04/21 09/15/21 11:30 History Exam Exam Date and Time: September 15, 2021 1340 Height,Weight and Vital Signs: Height 5 ft 6 in Weight 77.564 kg Last Vital Signs Temp 98.9 F 09/15/21 13:11 Pulse 84 09/15/21 13:11 Resp 16 09/15/21 13:11 BP 115/64 09/15/21 13:11 Pulse Ox 97 09/15/21 13:11 Pertinent Lab Results Pertinent Lab Results: Labs reviewed Narrative Narrative: Date of Service: 07/20/21 Procedure(s): XR chest 2V EXAMINATION: XR CHEST FINDINGS: The cardiac and mediastinal contours are stable. There is biapical pleural thickening that is stable. The lungs are otherwise clear. There is no pleural effusion or pneumothorax. There are degenerative changes of the spine. IMPRESSION: No evidence for acute disease in the chest. Date of Service: 07/20/21 Procedure(s): ECG 12 lead EKG Test Reason : CP ? Normal sinus rhythm.75 Nonspecific T wave abnormality Abnormal ECG When compared with ECG of 15-MAR-2018 10:32, Premature atrial complexes are no longer Present Airway Mallampati Class: III TM Dist: >3cm Neck ROM: Full Loose/Missing/Broken Teeth: Yes (Only 4 teeth top. Somebroken) Heart: RRR + murmur Lungs: CTAB Assessment and Plan Assessment Anesthesia Assessment: Anesthesia Plan Discussed and Chart Reviewed Final Anesthetic Review Family History of Problems with Anesthesia: No History of Problems with Anesthesia: No NPO: Yes ASA Class: III Final Preanesthetic Review: No Changes in Pt Med Stat, Meds/Allgs Chart Reviewed, Consent Obtained/Reviewed and Anes Risks/Benef Reviewed Patient Risk: Intermediate Procedure Risk: Low Assessment/Block/Sedation in SS: Assess/Block/Sedation-SS Anesthetic Plan Anesthetic Plan: GA and Regional Block (Right supraclavicular brachial plexus block) Disposition: Standard PACU
[2021-09-15] MEDS: Lactated Ringers 1,000 ML 50 ML IVCONT (14:00)
--- NOTE | 2021-09-15 19:02 | PC.NURSE ---
09/15/2021 DR Canchola called and she spoke with Josemanuel Schuster Tasia-Op Director. to send prescription to [facility].
== END 2021-09-15 17:45 | disposition home or self-care (01) ==
PROVIDERS: Visit Provider Orthopaedic Surgery
PROC: (CPT 25607; principal; 2021-09-15 13:10)
DX: S52.551A Other extraarticular fracture of lower end of right radius, initial encounter for closed fracture (principal); W03.XXXA Other fall on same level due to collision with another person, initial encounter; Y93.89 Activity, other specified; Y92.038 Other place in apartment as the place of occurrence of the external cause; Y99.8 Other external cause status; G56.01 Carpal tunnel syndrome, right upper limb; I10 Essential (primary) hypertension; J44.9 Chronic obstructive pulmonary disease, unspecified; M81.0 Age-related osteoporosis without current pathological fracture; M05.9 Rheumatoid arthritis with rheumatoid factor, unspecified; Z79.52 Long term (current) use of systemic steroids; Z88.8 Allergy status to other drugs, medicaments and biological substances; F17.210 Nicotine dependence, cigarettes, uncomplicated; Z79.899 Other long term (current) drug therapy
CPT/HCPCS: 25607; 64721; C1713; C1769; J0690; J2250; J2405; J3010

== ENCOUNTER 2021-09-30 08:51 | Outpatient (REF) | payer MEDICARE, SELFPAY ==
--- NOTE | ~2021-09-30 | XR_ITS ---
EXAMINATION: XR WRIST, RIGHT CLINICAL INFORMATION: Pain in the right wrist. COMPARISON: Right wrist 09/09/2021. TECHNIQUE: Three views of the right wrist. FINDINGS: Orthopedic plate and screw transfixing fracture of the distal radius. Fracture line remains partially radiolucent at the dorsum of the bone. There is endosteal healing at the volar side of the radius.There is improved alignment of fracture fragments since prior study 09/09/2020 which was a preoperative exam of the wrist. XR/XR wrist RT min 3V IMPRESSION: Status post ORIF distal radial fracture. Fracture line remains partially radiolucent. There is evidence of partial endosteal healing .
== END 2021-09-30 08:52 | disposition home or self-care (01) ==
LOC: HO.HOSX 08:51
PROVIDERS: Visit Provider Orthopaedic Surgery
DX: S52.501D Unspecified fracture of the lower end of right radius, subsequent encounter for closed fracture with routine healing (principal)
CPT/HCPCS: 73110; 99212

== ENCOUNTER → 2021-10-13 07:07 | Outpatient (REF) | payer MEDICARE, SELFPAY ==
--- NOTE | ~2021-10-13 | NM_ITS ---
Myocardial perfusion study Indication: Chest pain to evaluate for myocardial ischemia Technique: The patient was brought in for a Lexiscan perfusion study on 10/13/2021. Patient performed low-level exercise and was injected 0.4 mg of Lexiscan intravenously. Within a minute of injection, 25 mCi of sestamibi was given intravenously. Images were obtained using the SPECT gamma camera interlaced with the gating device. Images were obtained in supine position. Resting perfusion study was performed on 10/15/2021. Patient was administered 25 mCi of sestamibi intravenously at rest. Images were then obtained in supine position. Images obtained with and without the DLP 92 mGy-cm. Images were processed with the software and compared side to side in short axis, horizontal long axis and vertical long axis views. Findings: Images were suboptimal due to arms down during imaging The stress perfusion study showed non attenuated images show nonspecific reduction uptake in the basal septum which is small and mild intensity in mildly reduced uptake in the basal lateral wall of the LV is mildly reduced uptake in the basal inferior wall of the LV with moderate intensity attenuation corrected images show normal uptake of radiotracer in all segments of myocardium. The gated study shows normal LV systolic function with calculated LVEF of 71%. LV cavity is normal in size. The gated study shows normal systolic wall thickening and contraction of segments. Resting study shows attenuated corrected images show normal uptake of radiotracer in all segments of LV myocardium. Gating at rest reveals normal systolic wall motion with ejection fraction at 63%. The findings are consistent with likely normal myocardial perfusion. NM/NM cardiolite stress test Impression: 1. Myocardial perfusion imaging study shows likely normal myocardial perfusion 2. Gated LVEF is 63% 3. Transient ischemic dilatation not present EKG is nondiagnostic for ischemia
--- NOTE | 2021-10-13 08:18 | CA_ITS ---
Acquisition Time: 2021-10-13 08:22:18 Total Exercise Time: 00:02:00 Test Indications: Chest Pain Medications: Protocol: LEXISCAN Max HR: 090 BPM 61% of Pred: 146 BPM Max BP: 130/070 mmHG Max Work Load: 1.0 METS Pharmacological stress test with Lexiscan injection, while sitting and kicking his legs, without anginal symptoms, without arrythmia, with normotensive response to injection, with nondiagnostic EKG for ischemia. In recovery he reported having abdominal cramping that was treated with Aminophylline 75mg IVP to reverse Lexiscan with resolution of symptom. Nuclear images pending. Test reviewed with Dr Silver. Referred By: Judah Gregorio Overread By: AARON HURST
== END ==
LOC: HO.CARD 07:07
PROVIDERS: Visit Provider Internal Medicine Cardiovascular Disease
DX: R07.9 Chest pain, unspecified (principal)
CPT/HCPCS: 78452; 93017; A9500; J0280; J2785

== ENCOUNTER → 2021-11-06 10:24 | Outpatient (BNVA) | payer MEDICARE, SELFPAY | PROVIDERS: PCP Family Medicine; Visit Provider Nurse Practitioner Family | DX: M05.9 Rheumatoid arthritis with rheumatoid factor, unspecified (principal); S52.501A Unspecified fracture of the lower end of right radius, initial encounter for closed fracture; R01.1 Cardiac murmur, unspecified; Z79.52 Long term (current) use of systemic steroids | CPT/HCPCS: 99212 ==

== ENCOUNTER 2021-11-11 07:18 | Outpatient (REF) | payer MEDICARE, SELFPAY ==
--- NOTE | ~2021-11-11 | XR_ITS ---
EXAMINATION: XR WRIST, RIGHT CLINICAL INFORMATION: Right wrist pain COMPARISON: Right wrist 09/09/2021. TECHNIQUE: PA, lateral, and oblique views of the right wrist. FINDINGS: There is volar plate and screws for an old healed distal radial fracture. The fracture fragment is in alignment and still visualized. Callus formation is seen along the volar aspect of volar plate distal radius.. XR/XR wrist RT min 3V IMPRESSION: ORIF for distal radial fracture. The fracture line is still visualized. There is a hypertrophic bone formation volar aspect volar plate of distal radius.
== END 2021-11-11 07:19 | disposition home or self-care (01) ==
LOC: HO.HOSX 07:18
PROVIDERS: Visit Provider Physician Assistant
DX: S52.501D Unspecified fracture of the lower end of right radius, subsequent encounter for closed fracture with routine healing (principal)
CPT/HCPCS: 73110; 99212

== ENCOUNTER 2021-12-09 07:41 | Outpatient (REF) | payer MEDICARE, SELFPAY ==
--- NOTE | ~2021-12-09 | XR_ITS ---
EXAMINATION: XR WRIST, RIGHT CLINICAL INFORMATION: Right wrist pain. COMPARISON: 09/09/2021 TECHNIQUE: PA, lateral, oblique, and scaphoid views of the right wrist. FINDINGS: Volar plate and screw fixation construct is unchanged. There is increased osseous bridging at the distal radial fracture with increased callus formation. Hypertrophic bone is again seen at the volar aspect of the fixation plate. Posttraumatic positive ulnar variance (5 mm). Soft tissues are swollen at the wrist. Alignment is unchanged. Mild osteoarthritis at the 1st CMC joint. Old healed 5th metacarpal fracture. XR/XR wrist RT min 3V IMPRESSION: Progressive healing of the distal radial fracture without significant change in alignment.
== END 2021-12-09 07:42 | disposition home or self-care (01) ==
LOC: HO.HOSX 07:41
PROVIDERS: Visit Provider Physician Assistant
DX: S52.501D Unspecified fracture of the lower end of right radius, subsequent encounter for closed fracture with routine healing (principal); F17.210 Nicotine dependence, cigarettes, uncomplicated; X58.XXXD Exposure to other specified factors, subsequent encounter
CPT/HCPCS: 73110; 99212

== ENCOUNTER 2021-12-17 08:54 | Outpatient (REF) | payer MEDICARE, SELFPAY ==
[2021-12-17 09:13] LABS: MANUAL DIFF FLAG NO
[2021-12-17 09:33] LABS: Basophils Absolute Auto 0.1 X10*3/uL (0.0-0.2); Basophils Percent Auto 0.5 % (0-2); Eosinophils Absolute Auto 0.3 X10*3/uL (0.0-0.4); Hematocrit 38.4 % (42.0-52.0); Hemoglobin 12.1 g/dl (14.0-18.0); Imm Gran Abs Auto 0.07 X10*3/uL (0.00-0.03); Imm Gran Pct Auto 0.5 % (0.0-0.4); Lymphocytes Absolute Auto 2.9 X10*3/uL (1.2-4.9); Lymphocytes Percent Auto 21.8 % (20-40); Mean Corpuscular HGB Conc 31.5 g/dl (31.0-36.0); Mean Corpuscular Hemoglobin 27.4 pg (27.0-33.0); Mean Corpuscular Volume 86.9 fL (80.0-98.0); Mean Platelet Volume 9.9 fL (9.4-12.4); Monocytes Absolute Auto 0.9 X10*3/uL (0.1-1.2); Monocytes Percent Auto 6.8 % (2-11); Neutrophils Absolute Auto 9.1 x10*3/uL (2.0-8.3); Neutrophils Percent Auto 68.4 % (45-73); Platelet Count 282 X10*3/uL (160-400); Red Blood Count 4.42 X10*6/uL (4.60-5.80); White Blood Count 13.4 X10*3/uL (4.8-10.8)
[2021-12-17 09:55] LABS: Alanine Aminotransferase 9 U/L (0-40); Albumin Level 4.3 g/dL (3.5-5.0); Alkaline Phosphatase 108 U/L (39-117); Anion Gap 13 (12-20); Aspartate Amino Transferase 11 U/L (5-37); Bilirubin Total 0.4 mg/dL (0.0-1.0); Blood Urea Nitrogen 7 mg/dL (9-16); C Reactive Protein 0.15 mg/dL (< or = 0.50); Calcium 9.8 mg/dL (8.4-10.2); Carbon Dioxide 25 mmol/L (22-29); Chloride 105 mmol/L (96-108); Estimated Glomerular Filt Rate > 60; Glucose Random 108 mg/dL (60-115); Potassium 3.7 mmol/L (3.3-5.1); Sodium 139 mmol/L (135-145); Total Protein 7.4 g/dL (6.5-8.0)
[2021-12-17 10:17] LABS: Erythrocyte Sedimentation Rate 23 MM/HR (0-15)
== END 2021-12-17 08:55 | disposition home or self-care (01) ==
LOC: HO.LAB 08:54
PROVIDERS: PCP Family Medicine; Visit Provider Nurse Practitioner Family
DX: M05.9 Rheumatoid arthritis with rheumatoid factor, unspecified (principal)
CPT/HCPCS: 36415; 80053; 85025; 85652; 86140

== ENCOUNTER → 2021-12-24 13:44 | Outpatient (BNVA) | payer MEDICARE, SELFPAY | PROVIDERS: PCP Family Medicine; Visit Provider Orthopaedic Surgery | DX: Z13.89 Encounter for screening for other disorder (principal) ==

== ENCOUNTER 2022-01-09 08:59 | Outpatient (REF) | payer MEDICARE, SELFPAY ==
--- NOTE | ~2022-01-09 | CT_ITS ---
EXAMINATION: CT WRIST WITHOUT CONTRAST, RIGHT CLINICAL INFORMATION: Pain. Right wrist fracture. COMPARISON: Multiple priors, most recent right wrist radiographs dated 12/09/2021. TECHNIQUE: Contiguous axial CT images of the right wrist were obtained without contrast. Multiplanar reformats were provided and reviewed. This CT examination was performed using dose optimization techniques as appropriate, variously including the following: *Automated exposure control *Adjustment of mA and/or kV according to patient size (this includes techniques or standardized protocols for targeted exams where dose is matched to indication/reason for exam; i.e. extremities or head) *Use of iterative reconstruction technique DLP: 107.00 mGy-cm. FINDINGS: Redemonstration of a volar stabilization plate with fixation screws at the distal radius. No hardware fracture. No perihardware lucency to suggest loosening or infection. Redemonstration of a comminuted and mildly displaced distal radial fracture in unchanged anatomic alignment. The dominant fracture line is predominantly transverse within the distal radial metaphysis. There is persistent cortical step off along the ulnar aspect of the fracture line measuring up to 0.3 cm. The fracture line is predominantly persistent with areas of partial osseous bridging along the radial and posterior cortical surface. Osseous bridging involves approximately 10% of the fracture line. The persistent fracture gap measures up to 0.2 cm. There is surrounding new bone/callus formation. No new fracture or dislocation. Mild widening of the scapholunate interval, which could indicate an underlying scapholunate ligament injury. No concerning lytic or blastic osseous lesion. No abnormal soft tissue mass or fluid collection. The visualized flexor and extensor tendons are grossly intact, evaluation is limited on CT examination. CT/CT wrist RT wo con IMPRESSION: Redemonstration of a distal radial volar stabilization plate and fixation screws without evidence of hardware complication. Distal radial fracture in unchanged anatomic alignment with minimal osseous bridging along the radial and posterior aspect of the fracture. This likely involves approximately 10% of the fracture line. The persistent fracture gap measures up to 0.2 cm. Mild widening of the scapholunate interval, which could indicate an underlying scapholunate ligament injury.
== END 2022-01-09 09:00 | disposition home or self-care (01) ==
LOC: HO.CT 08:59
PROVIDERS: Visit Provider Physician Assistant
DX: S52.501A Unspecified fracture of the lower end of right radius, initial encounter for closed fracture (principal)
CPT/HCPCS: 73200

== ENCOUNTER → 2022-02-04 11:04 | Outpatient (BNVA) | payer OTHER, SELFPAY | PROVIDERS: PCP Family Medicine; Visit Provider Nurse Practitioner Family | DX: M05.9 Rheumatoid arthritis with rheumatoid factor, unspecified (principal); M81.0 Age-related osteoporosis without current pathological fracture; R01.1 Cardiac murmur, unspecified; Z79.52 Long term (current) use of systemic steroids; S52.501D Unspecified fracture of the lower end of right radius, subsequent encounter for closed fracture with routine healing | CPT/HCPCS: 99212 ==

== ENCOUNTER 2022-03-04 08:18 | Outpatient (REF) | payer MEDICARE, SELFPAY ==
[2022-03-04 08:34] LABS: MANUAL DIFF FLAG NO
[2022-03-04 09:08] LABS: Basophils Absolute Auto 0.1 X10*3/uL (0.0-0.2); Basophils Percent Auto 0.6 % (0-2); Eosinophils Absolute Auto 0.2 X10*3/uL (0.0-0.4); Eosinophils Percent Auto 1.9 % (0-4); Hematocrit 37.4 % (42.0-52.0); Hemoglobin 11.3 g/dl (14.0-18.0); Imm Gran Abs Auto 0.05 X10*3/uL (0.00-0.03); Imm Gran Pct Auto 0.5 % (0.0-0.4); Lymphocytes Percent Auto 28.5 % (20-40); Mean Corpuscular HGB Conc 30.2 g/dl (31.0-36.0); Mean Corpuscular Hemoglobin 25.8 pg (27.0-33.0); Mean Corpuscular Volume 85.4 fL (80.0-98.0); Mean Platelet Volume 9.7 fL (9.4-12.4); Monocytes Absolute Auto 0.8 X10*3/uL (0.1-1.2); Neutrophils Absolute Auto 6.3 x10*3/uL (2.0-8.3); Neutrophils Percent Auto 60.5 % (45-73); Platelet Count 281 X10*3/uL (160-400); Red Blood Count 4.38 X10*6/uL (4.60-5.80); White Blood Count 10.5 X10*3/uL (4.8-10.8)
[2022-03-04 09:28] LABS: Alanine Aminotransferase 14 U/L (0-40); Albumin Level 4.5 g/dL (3.5-5.0); Alkaline Phosphatase 102 U/L (39-117); Anion Gap 15 (12-20); Aspartate Amino Transferase 13 U/L (5-37); Bilirubin Total 0.6 mg/dL (0.0-1.0); Blood Urea Nitrogen 9 mg/dL (9-16); C Reactive Protein 0.11 mg/dL (< or = 0.50); Calcium 10.2 mg/dL (8.4-10.2); Carbon Dioxide 23 mmol/L (22-29); Chloride 105 mmol/L (96-108); Estimated Glomerular Filt Rate > 60; Glucose Random 106 mg/dL (60-115); Potassium 4.1 mmol/L (3.3-5.1); Sodium 139 mmol/L (135-145); Total Protein 7.7 g/dL (6.5-8.0)
[2022-03-04 09:55] LABS: Erythrocyte Sedimentation Rate 22 MM/HR (0-15)
== END 2022-03-04 08:19 | disposition home or self-care (01) ==
LOC: HO.LAB 08:18
PROVIDERS: PCP Family Medicine; Visit Provider Nurse Practitioner Family
DX: M05.9 Rheumatoid arthritis with rheumatoid factor, unspecified (principal)
CPT/HCPCS: 36415; 80053; 85025; 85652; 86140

== ENCOUNTER → 2022-03-11 10:22 | Outpatient (BNVA) | payer MEDICARE, SELFPAY | PROVIDERS: PCP Family Medicine; Referring Provider Family Medicine; Visit Provider Internal Medicine Cardiovascular Disease | DX: I77.810 Thoracic aortic ectasia (principal); I10 Essential (primary) hypertension; Q23.1 Congenital insufficiency of aortic valve | CPT/HCPCS: 99212 ==

== ENCOUNTER 2022-03-17 08:52 | Outpatient (REF) | payer MEDICARE, SELFPAY ==
--- NOTE | ~2022-03-17 | MM_ITS ---
EXAMINATION: BONE DENSITOMETRY CLINICAL INDICATION: Age-related osteoporosis without current pathological fracture. COMPARISON: Previous BD dated 11/20/2019 and baseline BD dated 10/21/2017. TECHNIQUE: Using a [employer] DXA System (software version: 13.1) manufactured by [employer], dual-energy x-ray absorptiometry was performed of the lumbar spine and left hip. The images are of good technical quality. Summary results are attached. FINDINGS: AP SPINE L1-L3 (excluding L4): The data of L1-L4 has been changed to exclude the L3 and L4 vertebral bodies, because degenerative changes at this level may cause overestimation of lumbar spine density. Current: BMD 1.155 g/cm2, Z-score 0.2, T-score -0.5, normal, 4.1% increase from previous, 2.8% increase from baseline (<5% change is not significant). Prior: BMD 1.110 g/cm2. Baseline: BMD 1.123 g/cm2. LEFT FEMUR, NECK: Current: BMD 0.847 g/cm2, Z-score -0.3, T-score -1.7, osteopenia. Prior: BMD 0.835 g/cm2. Baseline: BMD 0.856 g/cm2. LEFT FEMUR, TOTAL: Current: BMD 0.956 g/cm2, Z-score -0.1, T-score -1.0, normal, 3.7% increase from previous, 2.6% increase from baseline (<5% change is not significant). Prior: BMD 0.922 g/cm2. Baseline: BMD 0.932 g/cm2. IDENTIFIED RISK FACTORS: Rheumatoid arthritis, tobacco use (current smoker), history of fracture (adult), glucocorticoids (chronic), thiazide. HISTORY OF FRACTURE: Wrist. MEDICATIONS: Calcium supplements or multivitamin, vitamin D. MM/XR DEXA axial skeleton IMPRESSION: 1. DIAGNOSIS: Osteopenia based on the lowest T-score value of -1.7 in the femoral neck applying World Health Organization criteria. 2. 10-YEAR FRACTURE RISK PREDICTION, FRAX: Major osteoporotic fracture (clinical spine, forearm, hip or shoulder) 13.6%. Hip fracture 6.5%. 3. Treatment Recommendations: NOF guidelines recommend consideration for treatment in postmenopausal women and men age 50 and older presenting with the following: -A hip or vertebral (clinical or morphometric) fracture. -T-score less than or equal to -2.5 at the femoral neck or spine after appropriate evaluation to exclude secondary causes. -Low bone mass at the hip or spine and a 10-year fracture probability by FRAX of greater than or equal to 3% for hip fracture or greater than or equal to 20% for major osteoporotic fracture based on the [place] adapted WHO algorithm. 4. Other Recommendations: All treatment decisions require clinical judgment and consideration of individual patient factors, including patient preferences, comorbidities, previous drug use, risk factors not captured in the FRAX model (e.g. frailty, falls, vitamin D deficiency, increased bone turnover, interval significant decline in bone density) and possible under or overestimation of fracture risk by FRAX. Additional medical evaluation for secondary cause of low bone mineral density may be appropriate. FUTURE SCAN RECOMMENDATION: People with diagnosed cases of osteoporosis or at high risk for fracture should have regular bone mineral density tests. For patients eligible for Medicare, routine testing is allowed once every 2 years. The testing frequency can be increased to one year for patients who have rapidly progressing disease, those who are receiving or discontinuing medical therapy to restore bone mass, or have additional risk factors.
== END 2022-03-17 08:53 | disposition home or self-care (01) ==
LOC: HO.MAMMO 08:52
PROVIDERS: PCP Family Medicine; Visit Provider Nurse Practitioner Family
DX: Z13.820 Encounter for screening for osteoporosis (principal); M85.859 Other specified disorders of bone density and structure, unspecified thigh; M81.0 Age-related osteoporosis without current pathological fracture; Z79.899 Other long term (current) drug therapy; F17.200 Nicotine dependence, unspecified, uncomplicated; M06.9 Rheumatoid arthritis, unspecified; E27.49 Other adrenocortical insufficiency; Z87.81 Personal history of (healed) traumatic fracture
CPT/HCPCS: 77080

== ENCOUNTER → 2022-04-08 10:44 | Outpatient (BNVA) | payer MEDICARE, SELFPAY | PROVIDERS: PCP Family Medicine; Visit Provider Surgery | DX: L72.0 Epidermal cyst (principal) | CPT/HCPCS: 99212 ==

== ENCOUNTER → 2022-04-15 12:39 | Outpatient (BNVA) | payer OTHER, SELFPAY | PROVIDERS: PCP Family Medicine; Visit Provider Nurse Practitioner Family | DX: M05.9 Rheumatoid arthritis with rheumatoid factor, unspecified (principal); M81.0 Age-related osteoporosis without current pathological fracture; R01.1 Cardiac murmur, unspecified; Z79.52 Long term (current) use of systemic steroids; Z79.899 Other long term (current) drug therapy; Z87.81 Personal history of (healed) traumatic fracture | CPT/HCPCS: 99212 ==

== ENCOUNTER 2022-04-30 11:22 | Outpatient (REF) | payer OTHER, SELFPAY | END 2022-04-30 11:23 | disposition home or self-care (01) | LOC: HO.LAB 11:22 | PROVIDERS: PCP Family Medicine; Visit Provider Surgery | DX: L72.0 Epidermal cyst (principal) | CPT/HCPCS: 11403; 88304 ==

== ENCOUNTER 2022-06-08 07:49 | Outpatient (REF) | payer OTHER, SELFPAY ==
--- NOTE | ~2022-06-08 | XR_ITS ---
EXAMINATION: XR WRIST, RIGHT CLINICAL INFORMATION: Pain. COMPARISON: CT wrist dated 01/09/2022 and radiographs dated 12/09/2021. TECHNIQUE: PA, lateral, and oblique views of the right wrist. FINDINGS: There is bony demineralization. There is a healed fracture of the distal right radius, with intact orthopedic fixator plate and fixator screws. There is chronic periosteal thickening at the lateral aspect of the distal right radius. No acute fracture or dislocation is seen. The proximal and distal carpal rows are intact. A degenerative calcification is again seen adjacent to the triquetrum. There is stable flattening of the ulnar styloid. No soft tissue swelling, gas or foreign body is seen. XR/XR wrist RT min 3V IMPRESSION: The previously demonstrated distal right radial fracture appears healed in the interim. No hardware failure or loosening is noted.
== END 2022-06-08 07:50 | disposition home or self-care (01) ==
LOC: HO.HOSX 07:49
PROVIDERS: Visit Provider Physician Assistant
DX: S52.501A Unspecified fracture of the lower end of right radius, initial encounter for closed fracture (principal)
CPT/HCPCS: 73110; 99212

== ENCOUNTER 2022-06-12 07:45 | Outpatient (REF) | payer OTHER, SELFPAY ==
[2022-06-12 07:59] LABS: MANUAL DIFF FLAG NO
[2022-06-12 08:10] LABS: Basophils Absolute Auto 0.1 X10*3/uL (0.0-0.2); Basophils Percent Auto 0.5 % (0-2); Eosinophils Absolute Auto 0.3 X10*3/uL (0.0-0.4); Eosinophils Percent Auto 3.1 % (0-4); Hematocrit 36.8 % (42.0-52.0); Hemoglobin 11.6 g/dl (14.0-18.0); Imm Gran Abs Auto 0.04 X10*3/uL (0.00-0.03); Imm Gran Pct Auto 0.4 % (0.0-0.4); Lymphocytes Absolute Auto 2.7 X10*3/uL (1.2-4.9); Lymphocytes Percent Auto 26.8 % (20-40); Mean Corpuscular HGB Conc 31.5 g/dl (31.0-36.0); Mean Corpuscular Hemoglobin 25.9 pg (27.0-33.0); Mean Corpuscular Volume 82.1 fL (80.0-98.0); Mean Platelet Volume 9.5 fL (9.4-12.4); Monocytes Percent Auto 9.8 % (2-11); Neutrophils Absolute Auto 6.1 x10*3/uL (2.0-8.3); Neutrophils Percent Auto 59.4 % (45-73); Platelet Count 261 X10*3/uL (160-400); Red Blood Count 4.48 X10*6/uL (4.60-5.80); White Blood Count 10.2 X10*3/uL (4.8-10.8)
[2022-06-12 08:22] LABS: Alanine Aminotransferase 12 U/L (0-40); Albumin Level 4.3 g/dL (3.5-5.0); Alkaline Phosphatase 124 U/L (39-117); Anion Gap 14 (12-20); Aspartate Amino Transferase 14 U/L (5-37); Bilirubin Total 0.5 mg/dL (0.0-1.0); Blood Urea Nitrogen 8 mg/dL (9-16); C Reactive Protein 0.32 mg/dL (< or = 0.50); Calcium 9.2 mg/dL (8.4-10.2); Carbon Dioxide 24 mmol/L (22-29); Chloride 105 mmol/L (96-108); Estimated Glomerular Filt Rate > 60; Glucose Random 99 mg/dL (60-115); Potassium 3.8 mmol/L (3.3-5.1); Sodium 139 mmol/L (135-145); Total Protein 7.3 g/dL (6.5-8.0)
[2022-06-12 08:50] LABS: Erythrocyte Sedimentation Rate 22 MM/HR (0-15)
== END 2022-06-12 07:46 | disposition home or self-care (01) ==
LOC: HO.LAB 07:45
PROVIDERS: PCP Family Medicine; Visit Provider Nurse Practitioner Family
DX: M05.9 Rheumatoid arthritis with rheumatoid factor, unspecified (principal)
CPT/HCPCS: 36415; 80053; 85025; 85652; 86140

== ENCOUNTER 2022-06-13 10:09 | Emergency (ER) | payer OTHER, SELFPAY ==
--- NOTE | ~2022-06-13 | CT_ITS ---
EXAMINATION: CT cervical spine wo con, CT head/brain wo con INDICATION INFORMATION: Reason for Exam Neck pain COMPARISON: CT brain 08/09/2017 TECHNIQUE: Separate noncontrast CT examinations of the head and cervical spine were performed. Coronal and sagittal images were created for each examination at the technologist workstation. This CT examination was performed using dose optimization techniques as appropriate, variously including the following: *Automated exposure control *Adjustment of mA and/or kV according to patient size (this includes techniques or standardized protocols for targeted exams where dose is matched to indication/reason for exam; i.e. extremities or head) *Use of iterative reconstruction technique DLP: 1037 mGy-cm FINDINGS: Head: No acute osseous or soft tissue abnormality. The mastoid air cells and visualized portions of the paranasal sinuses are well aerated. There is no evidence of acute intracranial hemorrhage or territorial infarction. No abnormal mass effect or midline shift is seen. Lim to white matter differentiation is well preserved. No extra-axial fluid collections are identified. No hydrocephalus. Proportional prominence of the ventricles and sulcal spaces is consistent with mild volume loss. Patchy periventricular and deep white matter hypoattenuation is consistent with moderate small vessel ischemic changes. Cervical spine: There is no evidence of acute cervical spine fracture. Congenital nonunion of the posterior arch of C1. Vertebral bodies remain normal in height. Alignment is maintained. Moderate multilevel degenerative disc disease with loss of disc space height and facet arthropathy. No pre- or paravertebral soft tissue abnormality is identified. Biapical pleural-parenchymal scarring. The thyroid gland is unremarkable. CT/CT cervical spine wo con IMPRESSION: 1. No acute intracranial abnormality. 2. No cervical spine fracture or traumatic malalignment.
[2022-06-13 10:12] VITALS: BP 132/69; PULSE 78; RESP 18; TEMP 36.6; O2SAT 97; BMI 26.8
--- NOTE | 2022-06-13 12:46 | ECG_ITS ---
Test Reason : cp Blood Pressure : / mmHG Vent. Rate : 078 BPM Atrial Rate : 078 BPM P-R Int : 192 ms QRS Dur : 084 ms QT Int : 384 ms P-R-T Axes : 024 010 037 degrees QTc Int : 437 ms Sinus rhythm with Premature atrial complexes Nonspecific ST abnormality Abnormal ECG When compared with ECG of 20-JUL-2021 11:55, Premature atrial complexes are now Present Referred By: Sherrill Winter Electronically Signed By:ASAD DANIELS
[2022-06-13] MEDS: diazePAM 2 MG TABLET 5 MG PO (12:59)
--- NOTE | 2022-06-13 13:07 | ED.GENADULT ---
HPI - General Adult General Chief complaint: Headache Stated complaint: severe migraines Time Seen by Provider: 06/13/22 12:24 Source: patient Mode of arrival: ambulatory History of Present Illness HPI narrative: 76-year-old male with past medical history arthritis, asthma, COPD, GERD, HTN, osteoporosis, rheumatoid arthritis, presenting to the ED complaining of posterior head/neck pain since last night at 03:00AM. Reports woke up with the pain which then prohibited him from sleeping. States pain worse with movement and palpation. Also reports intermittent left-sided chest pain radiating down LUE yesterday, denies symptoms at present. Denies taking anticoagulation. Denies vision change/loss, nausea, vomiting, fall/head trauma, back pain, numbness, tingling, weakness Onset (ago): hour(s) Related Data Home Medications Medication Instructions Recorded Confirmed albuterol sulfate 90 mcg/actuation 2 puff inhalation Q4H PRN dyspnea 08/01/20 04/15/22 aerosol inhaler atorvastatin 40 mg tablet 40 mg PO BEDTIME 08/01/20 04/15/22 cholecalciferol (vitamin D3) 25 25 mcg PO DAILY 08/01/20 04/15/22 mcg (1,000 unit) tablet docusate sodium 100 mg capsule 100 mg PO BID 08/01/20 04/15/22 (Colace) fluticasone propionate 220 2 puff inhalation BID 08/01/20 04/15/22 mcg/actuation HFA aerosol inhaler melatonin 3 mg tablet 3 mg PO BEDTIME PRN insomnia 08/01/20 04/15/22 omeprazole 20 mg capsule,delayed 20 mg PO QAM 08/01/20 04/15/22 release sennosides 8.6 mg tablet 17.2 mg PO BEDTIME PRN constipation 08/01/20 04/15/22 umeclidinium 62.5 mcg/actuation 1 inh inhalation BEDTIME 08/01/20 04/15/22 blister powder for inhalation (Incruse Ellipta) amlodipine 5 mg tablet 10 mg PO DAILY 12/04/20 04/15/22 olopatadine 0.1 % eye drops 1 drp ophthalmic (eye) QID 03/11/22 04/15/22 Previous Rx's Medication Instructions Recorded oxycodone-acetaminophen 5 mg-325 1 tab PO Q4H PRN pain (scale score 09/15/21 mg tablet (Percocet) 7-10) #30 tabs alendronate 70 mg tablet 70 mg PO QWEEK #12 tabs 01/12/22 folic acid 1 mg tablet 1 mg PO DAILY #90 tabs 01/19/22 carvedilol 3.125 mg tablet 3.125 mg PO BID #60 tabs 03/11/22 adalimumab 40 mg/0.4 mL See Rx Instructions subcut 05/07/22 subcutaneous pen kit (Humira(CF) .COMPLEX #2 ea Pen) prednisone 1 mg tablet 1 mg PO DAILY #30 tabs 05/13/22 methotrexate (PF) 25 mg/0.5 mL 25 mg (0.5 mL) subcut QWEEK #2 mL 06/10/22 subcutaneous auto-injector (Rasuvo (PF)) acetaminophen 500 mg tablet 500 mg PO Q6H PRN fever or pain 06/13/22 (Tylenol Extra Strength) #14 tabs cyclobenzaprine 5 mg tablet 5 mg PO Q8H PRN pain (scale score 06/13/22 7-10) 5 days #14 tabs lidocaine 5 % topical patch 1 patch topical DAILY PRN pain #30 06/13/22 (Lidoderm) ea Allergies Allergy/AdvReac Type Severity Reaction Status Date / Time lisinopril [LISINOPRIL] Allergy Severe Angioedema Verified 06/08/22 11:01 LIATH inhibitors AdvReac Unknown angioedema Uncoded 06/08/22 11:01 Review of Systems Review of Systems: Constitutional: No Fever, No Chills, No Night Sweats, No Fatigue, No Malaise ENT/Mouth: No Hearing loss, No Ear Pain, No Nasal Congestion, No sore throat, No Rhinorrhea, No Swallowing Difficulty Eyes: No Eye Pain, No Swelling, No Redness, No Discharge, No Vision Changes Cardiovascular: + Chest Pain (yesterday), No SOB, No Edema, No Palpitations Respiratory: No Cough, No Sputum, No Dyspnea Gastrointestinal: No Nausea, No Vomiting, No Diarrhea, No Constipation, No Abdominal pain Genitourinary: No Dysuria, No Urinary Frequency, No Hematuria, No Urinary Incontinence/retention, No Flank Pain, No Urinary Flow Changes Musculoskeletal: + neck pain, No Myalgias, No Joint Swelling Skin: No Skin Lesions, No rash Neuro: No Weakness, No Numbness, No Paresthesias, No Loss of Consciousness, No Dizziness, + Headache Yes all other systems are reviewed and are negative Constitutional: Constitutional: Reports as per HPI Neurologic: Denies Abnormal speech present FOR[facility]LY [facility] Past Medical History Attestation statement: The following information was validated with the patient. Medical History Abscess Arthritis Asthma COPD (chronic obstructive pulmonary disease) Epidermal inclusion cyst GERD (gastroesophageal reflux disease) History of prostate cancer HTN (hypertension) detention systemic steroid user Osteoporosis Seropositive rheumatoid arthritis Surgical History History of arthroscopy of left shoulder History of back surgery History of colonoscopy History of prostate surgery History of removal of cyst History of tonsillectomy and adenoidectomy Hx of eye surgery Family History Family History Mother History of breast cancer, Onset Age: 87 Father History of asthma Social History Social History Alcohol intake: former Patient Tobacco Use Status: Current everyday Tobacco user Tobacco use type: Cigarette Cigarette Packs Per Day: 0.33 Cigarettes Per Day: 7 Years Smoked: 60 +/- e-Cigarette/Vaping Use: Never Used Advance Directives: No Advance Directives Information Provided: No Current occupational status: retired Current occupation: [employer] Gender identity: Male Physical Exam ED Vital Signs: Vital Signs - 24 hr 06/13/22 10:12 06/13/22 15:49 Temperature 97.9 F Pulse Rate 78 85 Respiratory Rate 18 16 Blood Pressure 132/69 136/76 Pulse Oximetry 97 96 Oxygen Delivery Method Room Air Room Air BMI result Body Mass Index 26.8 Const General: cooperative, healthy appearing and no acute distress Orientation/consciousness: patient oriented x3 Limitations: no limitations HENMT Head: Yes normal to inspection and Yes atraumatic Ears: hearing grossly normal bilaterally General nose exam: Normal external nose present Face and sinus: Yes normal facial exam Mouth: Normal oral and palatal mucosa present Throat: Yes posterior oropharynx normal, Yes tonsils normal, Yes uvula midline, No peritonsillar mass and No uvular edema Eyes General: appearance normal, both eyes and all related structures EOM: EOMs intact bilaterally Neck Other: No midline cervical spinous tenderness/step-off. Bilateral paraspinal tenderness and trapezius muscle tenderness. Limited neck ROM secondary to pain Neck: Yes normal visual inspection, Yes no meningeal signs, Yes supple and No anterior neck swelling Resp Effort & Inspection: normal respiratory effort, no respiratory distress and no stridor Auscultation: clear to auscultation bilaterally, no crackles and no wheezes Cardio Rate: regular rate Heart sounds: S1 normal heart sound present and S2 normal heart sound present Peripheral pulses: Peripheral pulses 2+ throughout GI Inspection: Yes normal to inspection Palpation (GI): Soft to palpation, nontender, no guarding and not rigid Back/Spine/Pelvis Other: No midline thoracic/lumbar spinous tenderness/step-off or deformity Skin Rashes: no rashes Wounds: no wounds Neuro General: patient oriented x3, tone normal, moves all extremities, no meningeal signs, no focal motor deficits and CN's II-XI intact bilaterally Cranial nerves: Yes CN's II-XII intact bilaterally and Yes Bilaterally intact EOM present Cognition (Neuro): normal cognition Speech: No Abnormal speech present Gait exam (Neuro): Normal gait present Motor exam (neuro): 5/5 motor strength present throughout, Pronator motor function not present and no tremor noted Extrem General: Yes normal to inspection Course Course Course Narrative: -1554--no leukocytosis. H&H at baseline. Labs otherwise reassuring, troponin negative CT head/brain wo con/CT cervical spine wo con IMPRESSION: 1.? No acute intracranial abnormality. ? 2.? No cervical spine fracture or traumatic malalignment. -on re-evaluation patient reports minimal improvement after p.o. Valium, reports he has a high pain tolerance, will give Tylenol, Lidoderm patch, and Flexeril -1700--on re-evaluation patient reports symptomatic improvement after medications given. Feels comfortable for discharge home at this time Medical Decision Making MDM Narrative Medical decision making narrative: 76-year-old male with past medical history arthritis, asthma, COPD, GERD, HTN, osteoporosis, rheumatoid arthritis, presenting to the ED complaining of posterior head/neck pain since last night at 03:00AM. On exam vital signs stable, NAD, nontoxic appearing, no midline spinous tenderness or red flag symptoms, no focal neuro deficits. + paraspinal tenderness. Concern for occult fracture vs MSK pain/spasming. Rule out ACS. Lower suspicion for cervical dissection/aneurysm or SAH Plan: EKG, labs, head/C-spine CT, p.o. Valium, re-evaluate Medical Records Medical records reviewed: Yes I reviewed the patient's medical records. Lab Data Lab results reviewed: Yes I reviewed the patient's lab results. Result diagrams: 06/13/22 13:58 06/13/22 13:58 Labs: Lab Results 06/13/22 06/13/22 06/13/22 Range/Units 13:58 13:58 13:58 WBC 10.8 (4.8-10.8) X10*3/uL RBC 4.52 L (4.60-5.80) X10*6/uL Hgb 11.8 L (14.0-18.0) g/dl Hct 37.2 L (42.0-52.0) % MCV 82.3 (80.0-98.0) fL MCH 26.1 L (27.0-33.0) pg MCHC 31.7 (31.0-36.0) g/dl RDW 20.3 H (11.0-16.0) % Plt Count 228 (160-400) X10*3/uL MPV 9.5 (9.4-12.4) fL Immature Gran % (Auto) 0.3 (0.0-0.4) % Neut % (Auto) 70.0 (45-73) % Lymph % (Auto) 19.8 L (20-40) % Dade % (Auto) 7.9 (2-11) % Eos % (Auto) 1.6 (0-4) % Baso % (Auto) 0.4 (0-2) % Lymph # (Auto) 2.1 (1.2-4.9) X10*3/uL Dade # (Auto) 0.9 (0.1-1.2) X10*3/uL Eos # (Auto) 0.2 (0.0-0.4) X10*3/uL Baso # (Auto) 0.0 (0.0-0.2) X10*3/uL Abs Immat Gran (auto) 0.03 (0.00-0.03) X10*3/uL Absolute Neuts (auto) 7.6 (2.0-8.3) x10*3/uL Absolute Nucleated RBC 0.000 (0.0-0.012) X10*3/uL Nucleated RBC % (auto) 0.0 (0.0-0.2) /100WBC Sodium 140 (135-145) mmol/L Potassium 4.0 (3.3-5.1) mmol/L Chloride 105 (96-108) mmol/L Carbon Dioxide 23 (22-29) mmol/L Anion Gap 16 (12-20) BUN 11 (9-16) mg/dL Creatinine 0.68 (0.5-1.4) mg/dL Estim Creat Clear Calc 86.0 Estimated GFR > 60 Random Glucose 93 (60-115) mg/dL Calcium 9.2 (8.4-10.2) mg/dL Magnesium 1.9 (1.6-2.6) mg/dL Total Bilirubin 0.7 (0.0-1.0) mg/dL Direct Bilirubin 0.3 (0.0-0.5) mg/dL AST 13 (5-37) U/L ALT 13 (0-40) U/L Alkaline Phosphatase 134 H (39-117) U/L Troponin I High Sens < 3.5 (<3.5-35.0) ng/L Total Protein 7.3 (6.5-8.0) g/dL Albumin 4.3 (3.5-5.0) g/dL COVID-19 ([facility]) (Negative) COVID-19 Clin Com 06/13/22 Range/Units 13:58 WBC (4.8-10.8) X10*3/uL RBC (4.60-5.80) X10*6/uL Hgb (14.0-18.0) g/dl Hct (42.0-52.0) % MCV (80.0-98.0) fL MCH (27.0-33.0) pg MCHC (31.0-36.0) g/dl RDW (11.0-16.0) % Plt Count (160-400) X10*3/uL MPV (9.4-12.4) fL Immature Gran % (Auto) (0.0-0.4) % Neut % (Auto) (45-73) % Lymph % (Auto) (20-40) % Dade % (Auto) (2-11) % Eos % (Auto) (0-4) % Baso % (Auto) (0-2) % Lymph # (Auto) (1.2-4.9) X10*3/uL Dade # (Auto) (0.1-1.2) X10*3/uL Eos # (Auto) (0.0-0.4) X10*3/uL Baso # (Auto) (0.0-0.2) X10*3/uL Abs Immat Gran (auto) (0.00-0.03) X10*3/uL Absolute Neuts (auto) (2.0-8.3) x10*3/uL Absolute Nucleated RBC (0.0-0.012) X10*3/uL Nucleated RBC % (auto) (0.0-0.2) /100WBC Sodium (135-145) mmol/L Potassium (3.3-5.1) mmol/L Chloride (96-108) mmol/L Carbon Dioxide (22-29) mmol/L Anion Gap (12-20) BUN (9-16) mg/dL Creatinine (0.5-1.4) mg/dL Estim Creat Clear Calc Estimated GFR Random Glucose (60-115) mg/dL Calcium (8.4-10.2) mg/dL Magnesium (1.6-2.6) mg/dL Total Bilirubin (0.0-1.0) mg/dL Direct Bilirubin (0.0-0.5) mg/dL AST (5-37) U/L ALT (0-40) U/L Alkaline Phosphatase (39-117) U/L Troponin I High Sens (<3.5-35.0) ng/L Total Protein (6.5-8.0) g/dL Albumin (3.5-5.0) g/dL COVID-19 ([facility]) Negative (Negative) COVID-19 Clin Com See Note ECG Data Attestation: I personally reviewed and interpreted this ECG as follows: Interpretation: EKG sinus rhythm with PACs at a rate of 78. QTC 437. No STEMI Discharge Plan Discharge Clinical Impression: Acute neck pain, Atypical chest pain Patient Disposition: Home, Self-Care Instructions: Noncardiac Chest Pain (ED), Acute Neck Pain (ED) Additional Instructions: Your blood work and imaging studies were reassuring today in the emergency department. Your pain is likely musculoskeletal Flexeril is a muscle relaxer, take at night as it makes you drowsy, do not drive, drink alcohol, or operate machinery while taking it Lidoderm patches are numbing patches, apply to painful area In addition take Tylenol at home If symptoms persist or worsen, pain becomes unbearable, you developed urinary retention or incontinence, or weakness return to the ED Dinah an?lisis de merlin y estudios de im?genes fueron tranquilizadores hoy en el departamento de emergencias. Es probable que freeman dolor sea musculoesquel?servando Flexeril es un relajante muscular, t?bello por la noche ya que te adormece, no conduzcas, bebas alcohol ni operes maquinaria mientras lo vane. Los parches de Lidoderm son parches anest?sicos, se aplican en el ?dayami dolorida Adem?s jasen Tylenol en casa Si los s?ntomas persisten o empeoran, el dolor se vuelve insoportable, desarroll? retenci?n urinaria o incontinencia, o debilidad, regrese al servicio de urgencias. Prescriptions: New acetaminophen [Tylenol Extra Strength] 500 mg tablet 500 mg PO Q6H PRN (Reason: fever or pain) Qty: 14 0RF lidocaine [Lidoderm] 5 % adhesive patch,medicated 1 patch topical DAILY MDD remove after 12 hours PRN (Reason: pain) Qty: 30 0RF Rx Instructions: leave on most painful area for up to 12 hrs cyclobenzaprine 5 mg tablet 5 mg PO Q8H PRN (Reason: pain (scale score 7-10)) 5 Days Qty: 14 0RF No Action amlodipine 5 mg tablet 10 mg PO DAILY alendronate 70 mg tablet 70 mg PO QWEEK Qty: 12 1RF Hold Instructions: Doctor's Order folic acid 1 mg tablet 1 mg PO DAILY Qty: 90 1RF Humira(CF) Pen 40 mg/0.4 mL pen injector kit See Rx Instructions subcut .COMPLEX Qty: 2 1RF Hold Instructions: Doctor's Order Rx Instructions: inject one - 40 mg/0.4 mL pen every 2 weeks subcut prednisone 1 mg tablet 1 mg PO DAILY Qty: 30 0RF Rasuvo (PF) 25 mg/0.5 mL auto-injector 25 mg subcut QWEEK Qty: 2 1RF Hold Instructions: Doctor's Order oxycodone-acetaminophen [Percocet] 5-325 mg tablet 1 tab PO Q4H PRN (Reason: pain (scale score 7-10)) Qty: 30 0RF atorvastatin 40 mg tablet 40 mg PO BEDTIME cholecalciferol (vitamin D3) 25 mcg (1,000 unit) tablet 25 mcg PO DAILY albuterol sulfate 90 mcg/actuation HFA aerosol inhaler 2 puff inhalation Q4H PRN (Reason: dyspnea) omeprazole 20 mg capsule,delayed release(DR/EC) 20 mg PO QAM melatonin 3 mg tablet 3 mg PO BEDTIME PRN (Reason: insomnia) sennosides 8.6 mg tablet 17.2 mg PO BEDTIME PRN (Reason: constipation) fluticasone propionate 220 mcg/actuation HFA aerosol inhaler 2 puff inhalation BID Incruse Ellipta 62.5 mcg/actuation blister with device 1 inh inhalation BEDTIME docusate sodium [Colace] 100 mg capsule 100 mg PO BID olopatadine 0.1 % drops 1 drp ophthalmic (eye) QID carvedilol 3.125 mg tablet 3.125 mg PO BID Qty: 60 4RF Rx Instructions: must administer with a meal/food Referrals: Daisha Crane MD [Primary Care Provider] - Print Language: [place] African
[2022-06-13 14:06] LABS: MANUAL DIFF FLAG NO
[2022-06-13 14:08] LABS: Basophils Percent Auto 0.4 % (0-2); Eosinophils Absolute Auto 0.2 X10*3/uL (0.0-0.4); Eosinophils Percent Auto 1.6 % (0-4); Hematocrit 37.2 % (42.0-52.0); Hemoglobin 11.8 g/dl (14.0-18.0); Imm Gran Abs Auto 0.03 X10*3/uL (0.00-0.03); Imm Gran Pct Auto 0.3 % (0.0-0.4); Lymphocytes Absolute Auto 2.1 X10*3/uL (1.2-4.9); Lymphocytes Percent Auto 19.8 % (20-40); Mean Corpuscular HGB Conc 31.7 g/dl (31.0-36.0); Mean Corpuscular Hemoglobin 26.1 pg (27.0-33.0); Mean Corpuscular Volume 82.3 fL (80.0-98.0); Mean Platelet Volume 9.5 fL (9.4-12.4); Monocytes Absolute Auto 0.9 X10*3/uL (0.1-1.2); Monocytes Percent Auto 7.9 % (2-11); Neutrophils Absolute Auto 7.6 x10*3/uL (2.0-8.3); Platelet Count 228 X10*3/uL (160-400); Red Blood Count 4.52 X10*6/uL (4.60-5.80); Red Cell Distribution Width 20.3 % (11.0-16.0); White Blood Count 10.8 X10*3/uL (4.8-10.8)
[2022-06-13 14:22] LABS: Alanine Aminotransferase 13 U/L (0-40); Albumin Level 4.3 g/dL (3.5-5.0); Alkaline Phosphatase 134 U/L (39-117); Anion Gap 16 (12-20); Aspartate Amino Transferase 13 U/L (5-37); Bilirubin Direct 0.3 mg/dL (0.0-0.5); Bilirubin Total 0.7 mg/dL (0.0-1.0); Blood Urea Nitrogen 11 mg/dL (9-16); Calcium 9.2 mg/dL (8.4-10.2); Carbon Dioxide 23 mmol/L (22-29); Chloride 105 mmol/L (96-108); Estimated Glomerular Filt Rate > 60; Glucose Random 93 mg/dL (60-115); Magnesium 1.9 mg/dL (1.6-2.6); Sodium 140 mmol/L (135-145); Total Protein 7.3 g/dL (6.5-8.0)
[2022-06-13 14:23] LABS: COVID-19 Test Negative (Negative)
[2022-06-13 14:29] LABS: Troponin-I High Sensitivity < 3.5 ng/L (<3.5-35.0)
[2022-06-13] MEDS: Cyclobenzaprine HCl 10 MG TABLET PO (15:46)
[2022-06-13] MEDS: Acetaminophen 325 MG TABLET 650 MG PO (15:46)
[2022-06-13] MEDS: Lidocaine 4 % Patch ADH..PATCH 1 PATCH TRANSDERMA (15:47)
[2022-06-13 15:49] VITALS: BP 136/76; PULSE 85; RESP 16; O2SAT 96
== END 2022-06-13 17:19 | disposition home or self-care (01) ==
PROVIDERS: Physician Assistant; Emergency Provider Student in an Organized Health Care Education/Training Program; PCP Family Medicine
DX: M54.2 Cervicalgia (principal); R07.89 Other chest pain; I10 Essential (primary) hypertension; M05.9 Rheumatoid arthritis with rheumatoid factor, unspecified; F17.210 Nicotine dependence, cigarettes, uncomplicated; Z79.899 Other long term (current) drug therapy; Z79.52 Long term (current) use of systemic steroids; Z20.822 Contact with and (suspected) exposure to COVID-19
CPT/HCPCS: 36415; 70450; 72125; 80048; 80076; 83735; 84484; 85025; 87635; 93005; 99284

== ENCOUNTER 2022-07-15 08:24 | Outpatient (REF) | payer OTHER, SELFPAY ==
--- NOTE | ~2022-07-15 | XR_ITS ---
EXAMINATION: XR WRIST, RIGHT CLINICAL INFORMATION: Pain in the right wrist COMPARISON: Prior examinations most recent 06/08/2022 TECHNIQUE: PA, lateral, and oblique views of the right wrist. FINDINGS: Screw fixation again noted over the volar aspect of the distal radius. Hardware intact There is persistent deformity of the distal radius related to prior fracture. Fracture line remains faintly visible on the AP projection. XR/XR wrist RT min 3V IMPRESSION: Stable appearance of the right wrist status post orthopedic fixation for distal radius fracture. No change in appearance of the fracture.
== END 2022-07-15 08:25 | disposition home or self-care (01) ==
LOC: HO.HOSX 08:24
PROVIDERS: Visit Provider Orthopaedic Surgery
DX: S52.501D Unspecified fracture of the lower end of right radius, subsequent encounter for closed fracture with routine healing (principal)
CPT/HCPCS: 20550; 73110; 99212; J1100

== ENCOUNTER → 2022-07-16 11:31 | Outpatient (BNVA) | payer OTHER, SELFPAY | PROVIDERS: PCP Family Medicine; Visit Provider Student in an Organized Health Care Education/Training Program | DX: M05.9 Rheumatoid arthritis with rheumatoid factor, unspecified (principal); M81.0 Age-related osteoporosis without current pathological fracture; D64.9 Anemia, unspecified; F17.210 Nicotine dependence, cigarettes, uncomplicated; Z79.52 Long term (current) use of systemic steroids | CPT/HCPCS: 99212 ==

== ENCOUNTER 2022-07-17 08:17 | Outpatient (REF) | payer OTHER, SELFPAY ==
--- NOTE | ~2022-07-17 | XR_ITS ---
EXAMINATION: XR ANKLE, RIGHT XR FOOT, RIGHT CLINICAL INFORMATION: Pain and swelling. COMPARISON: None TECHNIQUE: AP, lateral, and mortise views of the right ankle. AP, lateral, and oblique views of the right foot. FINDINGS: There is bony demineralization. The ankle mortise is intact. No fracture, dislocation or right ankle joint effusion is seen. Boehler's angle is normal. There is a small posterior calcaneal spur. No focal soft tissue swelling, gas or foreign body is seen. XR/XR foot LT 2V IMPRESSION: 1. No fracture, dislocation or right ankle joint effusion is seen. 2. There is a small posterior calcaneal spur. EXAMINATION: XR ANKLE, LEFT XR FOOT, LEFT CLINICAL INFORMATION: Pain and swelling. COMPARISON: Radiographs dated 11/20/2016 and 10/09/2014. TECHNIQUE: AP, lateral, and mortise views of the left ankle. AP, lateral, and oblique views of the left foot. FINDINGS: There is bony demineralization. The ankle mortise is intact. No fracture, dislocation or left ankle joint effusion is seen. There is a small posterior calcaneal spur. There is mild osteoarthritic change of the first metatarsophalangeal joint. There is mild bunion and bunionette formation. No focal soft tissue swelling, gas or foreign body is seen. IMPRESSION: 1. No fracture, dislocation or left ankle joint effusion is seen. 2. 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 3. There is mild left bunion and bunionette formation.
--- NOTE | ~2022-07-17 | XR_ITS ---
EXAMINATION: XR ANKLE, RIGHT XR FOOT, RIGHT CLINICAL INFORMATION: Pain and swelling. COMPARISON: None TECHNIQUE: AP, lateral, and mortise views of the right ankle. AP, lateral, and oblique views of the right foot. FINDINGS: There is bony demineralization. The ankle mortise is intact. No fracture, dislocation or right ankle joint effusion is seen. Boehler's angle is normal. There is a small posterior calcaneal spur. No focal soft tissue swelling, gas or foreign body is seen. XR/XR ankle RT min 3V IMPRESSION: 1. No fracture, dislocation or right ankle joint effusion is seen. 2. There is a small posterior calcaneal spur. EXAMINATION: XR ANKLE, LEFT XR FOOT, LEFT CLINICAL INFORMATION: Pain and swelling. COMPARISON: Radiographs dated 11/20/2016 and 10/09/2014. TECHNIQUE: AP, lateral, and mortise views of the left ankle. AP, lateral, and oblique views of the left foot. FINDINGS: There is bony demineralization. The ankle mortise is intact. No fracture, dislocation or left ankle joint effusion is seen. There is a small posterior calcaneal spur. There is mild osteoarthritic change of the first metatarsophalangeal joint. There is mild bunion and bunionette formation. No focal soft tissue swelling, gas or foreign body is seen. IMPRESSION: 1. No fracture, dislocation or left ankle joint effusion is seen. 2. 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 3. There is mild left bunion and bunionette formation.
--- NOTE | ~2022-07-17 | XR_ITS ---
EXAMINATION: XR ANKLE, RIGHT XR FOOT, RIGHT CLINICAL INFORMATION: Pain and swelling. COMPARISON: None TECHNIQUE: AP, lateral, and mortise views of the right ankle. AP, lateral, and oblique views of the right foot. FINDINGS: There is bony demineralization. The ankle mortise is intact. No fracture, dislocation or right ankle joint effusion is seen. Boehler's angle is normal. There is a small posterior calcaneal spur. No focal soft tissue swelling, gas or foreign body is seen. XR/XR foot RT 2V IMPRESSION: 1. No fracture, dislocation or right ankle joint effusion is seen. 2. There is a small posterior calcaneal spur. EXAMINATION: XR ANKLE, LEFT XR FOOT, LEFT CLINICAL INFORMATION: Pain and swelling. COMPARISON: Radiographs dated 11/20/2016 and 10/09/2014. TECHNIQUE: AP, lateral, and mortise views of the left ankle. AP, lateral, and oblique views of the left foot. FINDINGS: There is bony demineralization. The ankle mortise is intact. No fracture, dislocation or left ankle joint effusion is seen. There is a small posterior calcaneal spur. There is mild osteoarthritic change of the first metatarsophalangeal joint. There is mild bunion and bunionette formation. No focal soft tissue swelling, gas or foreign body is seen. IMPRESSION: 1. No fracture, dislocation or left ankle joint effusion is seen. 2. 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 3. There is mild left bunion and bunionette formation.
--- NOTE | ~2022-07-17 | XR_ITS ---
EXAMINATION: XR ANKLE, RIGHT XR FOOT, RIGHT CLINICAL INFORMATION: Pain and swelling. COMPARISON: None TECHNIQUE: AP, lateral, and mortise views of the right ankle. AP, lateral, and oblique views of the right foot. FINDINGS: There is bony demineralization. The ankle mortise is intact. No fracture, dislocation or right ankle joint effusion is seen. Boehler's angle is normal. There is a small posterior calcaneal spur. No focal soft tissue swelling, gas or foreign body is seen. XR/XR ankle LT min 3V IMPRESSION: 1. No fracture, dislocation or right ankle joint effusion is seen. 2. There is a small posterior calcaneal spur. EXAMINATION: XR ANKLE, LEFT XR FOOT, LEFT CLINICAL INFORMATION: Pain and swelling. COMPARISON: Radiographs dated 11/20/2016 and 10/09/2014. TECHNIQUE: AP, lateral, and mortise views of the left ankle. AP, lateral, and oblique views of the left foot. FINDINGS: There is bony demineralization. The ankle mortise is intact. No fracture, dislocation or left ankle joint effusion is seen. There is a small posterior calcaneal spur. There is mild osteoarthritic change of the first metatarsophalangeal joint. There is mild bunion and bunionette formation. No focal soft tissue swelling, gas or foreign body is seen. IMPRESSION: 1. No fracture, dislocation or left ankle joint effusion is seen. 2. 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 3. There is mild left bunion and bunionette formation.
[2022-07-17 08:45] LABS: MANUAL DIFF FLAG NO
[2022-07-17 09:07] LABS: Basophils Absolute Auto 0.1 X10*3/uL (0.0-0.2); Basophils Percent Auto 0.4 % (0-2); Eosinophils Absolute Auto 0.1 X10*3/uL (0.0-0.4); Eosinophils Percent Auto 0.8 % (0-4); Hematocrit 36.7 % (42.0-52.0); Hemoglobin 11.4 g/dl (14.0-18.0); Imm Gran Abs Auto 0.08 X10*3/uL (0.00-0.03); Imm Gran Pct Auto 0.6 % (0.0-0.4); Lymphocytes Absolute Auto 3.1 X10*3/uL (1.2-4.9); Lymphocytes Percent Auto 24.1 % (20-40); Mean Corpuscular HGB Conc 31.1 g/dl (31.0-36.0); Mean Corpuscular Volume 83.6 fL (80.0-98.0); Mean Platelet Volume 9.5 fL (9.4-12.4); Monocytes Percent Auto 7.8 % (2-11); Neutrophils Absolute Auto 8.6 x10*3/uL (2.0-8.3); Neutrophils Percent Auto 66.3 % (45-73); Platelet Count 301 X10*3/uL (160-400); Red Blood Count 4.39 X10*6/uL (4.60-5.80); Red Cell Distribution Width 20.3 % (11.0-16.0)
[2022-07-17 09:20] LABS: Appearance Urine Clear; Color Urine Dark Yellow; Glucose Urine UA Negative (Negative); Leukocyte Esterase Urine Small (1+) (Negative); Nitrite Urine Positive (Negative); Specific Gravity - Urine 1.015 (1.005-1.025); UMIC TRIGGER UA YES; Urine Blood Negative (Negative); Urine Ketones Trace mg/dL (Negative); Urine Protein Negative (Neg-Trace)
[2022-07-17 09:26] LABS: Bacteria Urine 4+ (None Seen); Hyaline Casts Urine 0-2 /LPF (0-2); RBC Urine 0-2 /HPF (0-2); Squamous Epithelial Cell Urine 0-2 /HPF (0-2)
[2022-07-17 09:37] LABS: Alanine Aminotransferase 14 U/L (0-40); Albumin Level 4.5 g/dL (3.5-5.0); Alkaline Phosphatase 122 U/L (39-117); Anion Gap 18 (12-20); Aspartate Amino Transferase 14 U/L (5-37); Bilirubin Total 0.5 mg/dL (0.0-1.0); Blood Urea Nitrogen 12 mg/dL (9-16); C Reactive Protein 0.68 mg/dL (< or = 0.50); Calcium 9.5 mg/dL (8.4-10.2); Carbon Dioxide 24 mmol/L (22-29); Chloride 104 mmol/L (96-108); Estimated Glomerular Filt Rate > 60; Glucose Random 95 mg/dL (60-115); Iron 48 mcg/dL (45-160); Percent Iron Saturation 11 % (15-50); Potassium 3.8 mmol/L (3.3-5.1); Sodium 142 mmol/L (135-145); Total Iron Binding Capacity 434 mcg/dL (228-428); Total Protein 7.5 g/dL (6.5-8.0); Unsaturated Iron Binding 386 ug/dL; Uric Acid 4.4 mg/dL (3.4-7.0)
[2022-07-17 09:39] LABS: Creatinine Urine 127.27 mg/dL; Protein/Creatinine Ratio, Ur 0.13 (<0.2); Total Protein Urine Random 16 mg/dL (<12)
[2022-07-17 09:47] LABS: Erythrocyte Sedimentation Rate 25 MM/HR (0-15)
[2022-07-17 09:52] LABS: Ferritin 8 ng/mL (20-250)
[2022-07-17 10:27] LABS: Folate 9.9 ng/mL (> or = 4.0); Vitamin B12 371 pg/mL (200-900)
[2022-07-20 11:17] LABS: Complement C3 154 mg/dL (82-185)
[2022-07-20 23:21] LABS: Anti DNA DS Antibody <1 IU/mL; Antibody to SS-A Antigen <1.0 NEG AI (<1.0 NEG); Antibody to SS-B Antigen <1.0 NEG AI (<1.0 NEG); SM/Ribonucleoprotein Ab <1.0 NEG AI (<1.0 NEG); Smith Protein <1.0 NEG AI (<1.0 NEG)
[2022-07-21 02:57] LABS: Transferrin 328 mg/dL (188-341)
[2022-07-21 13:46] LABS: Prot Elec - Albumin 4.1 g/dL (3.8-4.8); Prot Elec - Alpha1 0.3 g/dL (0.2-0.3); Prot Elec - Beta 1 0.6 g/dL (0.4-0.6); Prot Elec - Beta 2 0.6 g/dL (0.2-0.5); Prot Elec - Gamma 0.9 g/dL (0.8-1.7); Prot Elec - Total Protein 7.4 g/dL (6.1-8.1)
[2022-07-21 15:21] LABS: Anti Nuclear Antibody Screen NEGATIVE (NEGATIVE)
[2022-07-22 07:52] LABS: IgA 481 mg/dL (70-320); IgG 960 mg/dL (600-1540); IgM 64 mg/dL (50-300)
[2022-07-22 14:16] LABS: Histone Antibody <1.0 U (<1.0)
[2022-08-02 03:17] LABS: Adalimumab Drug Level 8.5 mcg/mL; Anti-Adalimumab Antibody <10 AU (<10)
== END 2022-07-17 08:18 | disposition home or self-care (01) ==
LOC: HO.LAB 08:17
PROVIDERS: PCP Family Medicine; Visit Provider Student in an Organized Health Care Education/Training Program
DX: M25.572 Pain in left ankle and joints of left foot (principal); M25.571 Pain in right ankle and joints of right foot; D64.9 Anemia, unspecified; Z79.899 Other long term (current) drug therapy
CPT/HCPCS: 73610; 73620; 80053; 80145; 81001; 82607; 82728; 82746; 82784; 83516; 83520; 83540; 84156; 84165; 84466; 84550; 85025; 85652; 86038; 86039; 86140; 86160; 86225; 86235; 86334

== ENCOUNTER → 2022-08-04 08:03 | Outpatient (BNVA) | payer OTHER, SELFPAY | PROVIDERS: PCP Family Medicine; Visit Provider Student in an Organized Health Care Education/Training Program | DX: M05.9 Rheumatoid arthritis with rheumatoid factor, unspecified (principal); M81.0 Age-related osteoporosis without current pathological fracture; D64.9 Anemia, unspecified; M25.471 Effusion, right ankle; M25.472 Effusion, left ankle; Z79.52 Long term (current) use of systemic steroids; F17.210 Nicotine dependence, cigarettes, uncomplicated | CPT/HCPCS: 99212 ==

== ENCOUNTER → 2022-08-05 13:44 | Outpatient (BNVA) | payer OTHER, SELFPAY | PROVIDERS: PCP Family Medicine; Referring Provider Family Medicine; Visit Provider Nurse Practitioner Family | DX: Q23.1 Congenital insufficiency of aortic valve (principal); R01.1 Cardiac murmur, unspecified; I10 Essential (primary) hypertension; I77.810 Thoracic aortic ectasia | CPT/HCPCS: 99212 ==

== ENCOUNTER → 2022-08-28 09:51 | Outpatient (REF) | payer OTHER, SELFPAY ==
[2022-08-28 10:12] LABS: MANUAL DIFF FLAG NO
--- NOTE | 2022-08-28 10:13 | CA_ITS ---
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 Normal LV systolic function with impaired relaxation filling pattern 2. Bicuspid aortic valve with trivial aortic regurgitation 3. Moderately dilated ascending aorta at 4.6 cm 4. Normal RV systolic pressure 5. No gross pericardial effusion Findings Left Ventricle Normal left ventricular size, thickness, and systolic function. The visually estimated ejection fraction is between 55-60%. Spectral Doppler is indicative of an impaired relaxation filling pattern. E/E prime ratio is between 8 and 15 consistent with indeterminate filling pressures. Right Ventricle Normal right ventricular cavity size and systolic function. Atria The left atrium is likely dilated. There is no evidence of interatrial shunt. The right atrium is normal in size. Aortic Valve There is a bicuspid aortic valve. There is mild thickening of the aortic valve. There is no aortic valve stenosis. There is trace (trivial) aortic valve regurgitation. Mitral Valve Normal mitral valve structure and function. There is no mitral valve regurgitation. There is no mitral valve stenosis. Pulmonic Valve The pulmonic valve is likely normal. There is trace pulmonic valve regurgitation. Tricuspid Valve Normal tricuspid valve structure. There is trace tricuspid valve regurgitation. The right ventricular systolic pressure is normal. The right ventricular systolic pressure is 25 mmHg. Normal right atrial pressure. There is no evidence of pulmonary hypertension. Great Vessels The pulmonary artery was not well visualized. There is moderate dilatation of the ascending aorta measuring 4.60 cm. Venous The inferior vena cava is normal in size and collapses greater than 50% with inspiration. Pericardium/Pleural There is no evidence of pericardial effusion. Prior Study Comparison Changes noted compared to prior study dated: 09/15/2021. Ascending aorta is further dilated at 4.6 cm. Consider thoracic CTA to evaluate ascending aorta Measurements 2D Linear Measurements IVSd: 1.21 0.6-0.9/0.6-1.0 cm LVIDd: 4.67 3.9-5.3/4.2-5.9 cm LVIDd Index: 2.50 2.4-3.2/2.2-3.1 cm/m2 LVIDs: 3.18 2.0-3.6 cm LVPWd: 0.95 0.7-1.1 cm LA Diam: 2.40 2.7-3.8/3.0-4.0 cm LAIDs Index: 1.28 1.5-2.3 cm/m2 LV Mass: 225.73 67-162/88-224 g LV Mass Index: 120.71 43-95/49-115 g/m2 LVOT Diam: 2.60 3.0+(-)1.3 cm 2D Systolic Function EF 4C: 58.00 >55% EF 2C: 55.00 >55% EF BiP: 56.20 >55% Mitral Valve MV Pk E: 0.61 MV PK A: 0.87 MV Decel Time: 294.00 E/A: 0.70 E'Lateral: 5.55 E'Medial: 3.81 E/E' Med: 16.00 E/E' Lat: 11.00 PHT: 86.00 MVA PHT: 2.56 Decel White: 2.07 Aortic Valve AoV Pk Aston: 1.91 AoV Mn Aston: 1.25 AoV VTI: 0.40 AoV Pk Grad: 15.00 Aov Mn Grad: 7.00 RANULFO Cont.VTI: 2.59 LVOT LVOT Pk Aston: 0.92 LVOT Mn Aston: 0.60 LVOT VTI: 0.20 LVOT Pk Grad: 3.00 LVOT Mn Grad: 2.00 LVOT Diam: 2.60 LVOT Area: 5.31 Diastolic Function MV Pk E: 0.61 MV Pk A: 0.87 E/A: 0.70 E'Medial: 3.81 E/E' Med: 16.00 E' Laterial: 5.55 E/E' Lat: 11.00 Right Ventricle TAPSE (mm): 21.60 TVS' Aston: 9.03 Tricuspid Valve TR Pk Aston: 2.36 TR Pk Grad: 22.00 RA Press: 3.00 RVSP: 25.00 Great Vessels Aorta Sinus of Valsalva: 4.41 2.0-3.5 cm Ao Asc: 4.60 2.1-3.4 cm Updated in Other Vendor System with Status of Final Washington Silver MD electronically signed on 08/29/2022 12:10:12 PM with status of Final
[2022-08-28 10:34] LABS: Basophils Percent Auto 0.3 % (0-2); Eosinophils Percent Auto 0.3 % (0-4); Hematocrit 37.2 % (42.0-52.0); Hemoglobin 11.6 g/dl (14.0-18.0); Imm Gran Abs Auto 0.05 X10*3/uL (0.00-0.03); Imm Gran Pct Auto 0.5 % (0.0-0.4); Lymphocytes Absolute Auto 1.7 X10*3/uL (1.2-4.9); Lymphocytes Percent Auto 16.9 % (20-40); Mean Corpuscular HGB Conc 31.2 g/dl (31.0-36.0); Mean Corpuscular Hemoglobin 25.8 pg (27.0-33.0); Mean Corpuscular Volume 82.9 fL (80.0-98.0); Mean Platelet Volume 9.5 fL (9.4-12.4); Monocytes Absolute Auto 0.3 X10*3/uL (0.1-1.2); Monocytes Percent Auto 3.2 % (2-11); Neutrophils Absolute Auto 7.7 x10*3/uL (2.0-8.3); Neutrophils Percent Auto 78.8 % (45-73); Platelet Count 304 X10*3/uL (160-400); Red Blood Count 4.49 X10*6/uL (4.60-5.80); White Blood Count 9.8 X10*3/uL (4.8-10.8)
[2022-08-28 10:40] LABS: Estimated Average Glucose 140 mg/dL; Hemoglobin A1c % 6.5 %
[2022-08-28 11:02] LABS: Alanine Aminotransferase 15 U/L (0-40); Albumin Level 4.6 g/dL (3.5-5.0); Alkaline Phosphatase 112 U/L (39-117); Anion Gap 17 (12-20); Aspartate Amino Transferase 15 U/L (5-37); Bilirubin Total 0.5 mg/dL (0.0-1.0); Blood Urea Nitrogen 9 mg/dL (9-16); C Reactive Protein 0.05 mg/dL (< or = 0.50); Calcium 10.1 mg/dL (8.4-10.2); Carbon Dioxide 21 mmol/L (22-29); Chloride 105 mmol/L (96-108); Cholesterol 161 mg/dL; Estimated Glomerular Filt Rate > 60; Glucose Random 183 mg/dL (60-115); HDL Cholesterol 62 mg/dL; LDL Cholesterol Calculated 70 mg/dl; Potassium 4.2 mmol/L (3.3-5.1); Sodium 139 mmol/L (135-145); Total Protein 7.6 g/dL (6.5-8.0); Triglycerides 145 mg/dL
[2022-08-28 11:24] LABS: Erythrocyte Sedimentation Rate 16 MM/HR (0-15)
[2022-08-31 21:27] LABS: Immunoglobulin A 463 mg/dL (70-320)
[2022-08-31 22:17] LABS: Transglutaminase Ab IgG <1.0 U/mL
[2022-09-02 14:26] LABS: Endomysial IgA Antibody Negative (Negative)
== END ==
LOC: HO.CARD 09:51
PROVIDERS: Absent Provider Student in an Organized Health Care Education/Training Program; PCP Family Medicine; Visit Provider Nurse Practitioner Family
DX: R01.1 Cardiac murmur, unspecified (principal); Q23.1 Congenital insufficiency of aortic valve; D64.9 Anemia, unspecified; E11.9 Type 2 diabetes mellitus without complications; E78.5 Hyperlipidemia, unspecified; Z79.52 Long term (current) use of systemic steroids
CPT/HCPCS: 36415; 80053; 80061; 82784; 83036; 85025; 85652; 86140; 86231; 86364; 93306; 99211

== ENCOUNTER → 2022-09-04 08:28 | Outpatient (BNVA) | payer OTHER, SELFPAY | PROVIDERS: PCP Family Medicine; Visit Provider Student in an Organized Health Care Education/Training Program | DX: M05.9 Rheumatoid arthritis with rheumatoid factor, unspecified (principal); M81.0 Age-related osteoporosis without current pathological fracture; D64.9 Anemia, unspecified; F17.210 Nicotine dependence, cigarettes, uncomplicated; Z51.81 Encounter for therapeutic drug level monitoring; Z79.899 Other long term (current) drug therapy; Z79.52 Long term (current) use of systemic steroids | CPT/HCPCS: 99212 ==

== ENCOUNTER 2022-10-01 07:21 | Outpatient (REF) | payer OTHER, SELFPAY ==
--- NOTE | ~2022-10-01 | MR_ITS ---
EXAMINATION: MR WRIST WITHOUT AND WITH CONTRAST, RIGHT CLINICAL INFORMATION: Right wrist pain and swelling. Fracture with subsequent surgery. COMPARISON: Multiple priors, most recent right wrist radiographs dated 07/15/[address] dated 01/09/2022. TECHNIQUE: MRI of the wrist was performed before and after the intravenous administration of 8 mL Gadavist on a high-field scanner. FINDINGS: TRIANGULAR FIBROCARTILAGE: Diffuse attenuation of the triangular fibrocartilage complex with near complete absence of the ulnar attachments, consistent with chronic full-thickness tearing. Moderate distal radial ulnar joint effusion with synovitis. INTRINSIC LIGAMENTS: Probable focal full-thickness tear through the scapholunate ligament with minimal joint space widening. Intact lunotriquetral ligament. TENDONS/MEDIAN NERVE: Fluid within the extensor carpi ulnaris tendon sheath as well as increased intrasubstance T2 signal and slight irregularity, consistent with tendinosis, longitudinal partial tearing, and tenosynovitis. No transverse tendon tear or tendon retraction. ARTICULAR CARTILAGE/BONE: Prominent artifact within the distal radius consistent with the volar stabilization plate and fixation screws. Healed distal radial fracture in near anatomic alignment. No significant marrow edema or enhancement to suggest hardware complication. Borderline ulnar positive variance with widening of the distal radial ulnar joint, likely posttraumatic. Degenerative cystic change within the ulnar styloid. No evidence of acute fracture. Degenerative cysts scattered throughout the carpal bones. Articular cartilage thinning with tiny marginal osteophytes at the triscaphe and 1st carpometacarpal joints. JOINT FLUID/SOFT TISSUES: Moderate distal radial ulnar joint effusion with synovitis. Small pisotriquetral joint effusion. MR/MR wrist RT wo/w con IMPRESSION: 1. Post-surgical change consistent with volar stabilization of the distal radius. No evidence of hardware complication. Borderline ulnar positive variance with widening of the distal radial ulnar joint, likely posttraumatic. 2. 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 Moderate distal radial ulnar joint effusion with synovitis. 3. Probable focal full-thickness tear through the scapholunate ligament with minimal joint space widening. 4. Extensor carpi ulnaris tendinosis, tenosynovitis, and longitudinal partial tearing. No transverse tendon tear or tendon retraction. 5. 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 Small pisotriquetral joint effusion.
== END 2022-10-01 07:22 | disposition home or self-care (01) ==
LOC: HO.MRI 07:21
PROVIDERS: Visit Provider Student in an Organized Health Care Education/Training Program
DX: M65.9 Synovitis and tenosynovitis, unspecified (principal)
CPT/HCPCS: 73223; A9585

== ENCOUNTER 2022-10-06 06:49 | Outpatient (REF) | payer OTHER, SELFPAY ==
[2022-10-06 07:46] LABS: Anion Gap 14 (12-20); Blood Urea Nitrogen 9 mg/dL (9-16); Calcium 9.5 mg/dL (8.4-10.2); Carbon Dioxide 23 mmol/L (22-29); Chloride 104 mmol/L (96-108); Estimated Glomerular Filt Rate > 60; Glucose Random 113 mg/dL (60-115); Potassium 4.1 mmol/L (3.3-5.1); Sodium 137 mmol/L (135-145)
== END 2022-10-06 06:50 | disposition home or self-care (01) ==
LOC: HO.LAB 06:49
PROVIDERS: PCP Family Medicine; Visit Provider Nurse Practitioner Family
DX: R07.9 Chest pain, unspecified (principal); I10 Essential (primary) hypertension; I77.810 Thoracic aortic ectasia
CPT/HCPCS: 36415; 80048

== ENCOUNTER 2022-10-08 08:27 | Outpatient (REF) | payer OTHER, SELFPAY ==
--- NOTE | ~2022-10-08 | CT_ITS ---
EXAMINATION: CT ANGIOGRAM CHEST CLINICAL INFORMATION: Thoracic aortic ectasia. COMPARISON: CT angiogram chest 07/20/2021. TECHNIQUE: Multiple axial images were obtained through the chest after the administration of 70 mL of Omnipaque 350 intravenous contrast. Additional 2-D coronal and sagittal reformatted images and axial 3-D maximum intensity projection MIP images are generated on the CT workstation. This CT examination was performed using dose optimization techniques as appropriate, variously including the following: *Automated exposure control *Adjustment of mA and/or kV according to patient size (this includes techniques or standardized protocols for targeted exams where dose is matched to indication/reason for exam; i.e. extremities or head) *Use of iterative reconstruction technique DLP: 139 mGy-cm FINDINGS: VASCULAR FINDINGS: Once again seen is mild aneurysmal dilatation of the ascending aorta with maximal transverse dimension of 4.3 cm (previously 4.4 cm). When measurements are made perpendicular to a center line, the maximal dimension at the sinuses of Valsalva is 4.7 cm and maximal dimension of the ascending aorta is 4.2 cm. No aortic dissection is seen. Tricuspid aortic valve is present. Coronary artery calcifications are seen. Three-vessel normal branching pattern of the great vessels is seen which are widely patent. Although not carried out for evaluation of the pulmonary arteries or pulmonary veins, no abnormality is seen. The small visualized portion of the abdominal aorta is unremarkable with some minimal calcific plaque. Celiac and SMA are patent. Ostial calcification noted right renal artery. Left renal artery widely patent. NONVASCULAR FINDINGS: Lungs: The lungs are clear with no evidence of inflammation or nodules. Mediastinum: Heart size normal. Coronary calcifications are seen. No mediastinal or hilar lymphadenopathy. Pleura: There is no pleural effusion. No pleural mass or thickening. Axilla: No lymphadenopathy. Upper Abdomen: Benign bilateral small Bosniak class I renal cysts are present which need no further imaging or follow-up. There is a small 9 mm fat density benign right adrenal adenoma versus benign myelolipoma, unchanged. Left adrenal gland appears normal. Osseous Structures: Unremarkable. CT/CT angio chest aorta IMPRESSION: There is aneurysmal dilatation of the ascending aorta with dimensions at the sinuses of Valsalva of 4.7 cm and in the ascending aorta of about 4.2 cm. No significant interval change when compared to the July 2021. Other incidental findings as described above. Fleischner guidelines were followed.
[2022-10-08] MEDS: iohexoL 350 MG/ML 100 ML INFUS..BTL IV (09:18)
== END 2022-10-08 08:28 | disposition home or self-care (01) ==
LOC: HO.CT 08:27
PROVIDERS: PCP Family Medicine; Visit Provider Nurse Practitioner Family
DX: I77.810 Thoracic aortic ectasia (principal)
CPT/HCPCS: 71275; Q9967

== ENCOUNTER → 2022-10-28 10:00 | Outpatient (BNVA) | payer OTHER, SELFPAY | PROVIDERS: PCP Family Medicine; Visit Provider Orthopaedic Surgery | DX: M05.70 Rheumatoid arthritis with rheumatoid factor of unspecified site without organ or systems involvement (principal); M81.0 Age-related osteoporosis without current pathological fracture; S52.501A Unspecified fracture of the lower end of right radius, initial encounter for closed fracture; X58.XXXA Exposure to other specified factors, initial encounter; Y93.9 Activity, unspecified; Y92.9 Unspecified place or not applicable; Y99.8 Other external cause status; I10 Essential (primary) hypertension; Z79.899 Other long term (current) drug therapy | CPT/HCPCS: 99212 ==

== ENCOUNTER → 2022-10-30 07:53 | Outpatient (BNVA) | payer OTHER, SELFPAY | PROVIDERS: PCP Family Medicine; Visit Provider Student in an Organized Health Care Education/Training Program | DX: M05.9 Rheumatoid arthritis with rheumatoid factor, unspecified (principal); Z51.81 Encounter for therapeutic drug level monitoring; M81.0 Age-related osteoporosis without current pathological fracture; F17.210 Nicotine dependence, cigarettes, uncomplicated; Z79.52 Long term (current) use of systemic steroids; Z79.899 Other long term (current) drug therapy | CPT/HCPCS: 20610; 99202 ==

== ENCOUNTER 2022-11-16 09:13 | Emergency (ER) | payer OTHER, SELFPAY ==
--- NOTE | ~2022-11-16 | XR_ITS ---
EXAMINATION: XR WRIST, RIGHT CLINICAL INFORMATION: Wrist pain COMPARISON: Wrist radiographs 07/15/2022 TECHNIQUE: 4 view of the right wrist. FINDINGS: Again noted is a plate and screw device overlying the distal radius on its ventral surface with associated distal radial fracture. Hardware appears intact. No new fractures are seen. Mild degenerative changes present at the radiocarpal joint XR/XR wrist RT 2V IMPRESSION: Unchanged appearance of distal radial fracture with plate and screw device.
[2022-11-16 09:35] VITALS: BP 163/112; PULSE 75; RESP 18; TEMP 36.6; O2SAT 98; BMI 28.4
--- NOTE | 2022-11-16 10:19 | ED.EXTPRO ---
HPI - Extremity Problem General Chief complaint: Extremity Injury, Upper Stated complaint: r hand swelling pain Time Seen by Provider: 11/16/22 10:18 Source: patient and digital marketing assistant Mode of arrival: ambulatory Limitations: language barrier History of Present Illness HPI Narrative: Patient is a 77 year old assigned male at with a history of RA presenting to the emergency department today with right wrist pain. Patient states that his right wrist has been hurting since last night. Patient denies any dizziness, lightheadedness, abdominal pain, nausea, vomiting, fever, chills, blurry vision, double vision, loss of vision, chest pain, difficulty breathing, shortness of breath, back pain, night sweats, pain with urination, increased urinary frequency, increased urinary urgency, blood in his urine or stool, syncope or a near syncopal episode, recent trauma or falls, bowel incontinence, bladder incontinence, bowel retention, bladder retention, or any other complaints at this time. MD Complaint: extremity pain Onset (ago): day(s) (1) Pain Consistency: constant Location: right and upper extremity Severity scale (1-10): 3 Relieving factors: nothing Exacerbating factors: nothing Associated symptoms: denies other symptoms Related Data Home Medications Medication Instructions Recorded Confirmed albuterol sulfate 90 mcg/actuation 2 puff inhalation Q4H PRN dyspnea 08/01/20 08/05/22 aerosol inhaler atorvastatin 40 mg tablet 40 mg PO BEDTIME 08/01/20 08/05/22 cholecalciferol (vitamin D3) 25 25 mcg PO DAILY 08/01/20 08/05/22 mcg (1,000 unit) tablet docusate sodium 100 mg capsule 100 mg PO BID 08/01/20 08/05/22 (Colace) fluticasone propionate 220 2 puff inhalation BID 08/01/20 08/05/22 mcg/actuation HFA aerosol inhaler melatonin 3 mg tablet 3 mg PO BEDTIME PRN insomnia 08/01/20 08/05/22 omeprazole 20 mg capsule,delayed 20 mg PO QAM 08/01/20 08/05/22 release sennosides 8.6 mg tablet 17.2 mg PO BEDTIME PRN constipation 08/01/20 08/05/22 umeclidinium 62.5 mcg/actuation 1 inh inhalation BEDTIME 08/01/20 08/05/22 blister powder for inhalation (Incruse Ellipta) olopatadine 0.1 % eye drops 1 drp ophthalmic (eye) QID 03/11/22 08/05/22 oxycodone 5 mg tablet 5 mg PO Q12H PRN pain 08/04/22 08/05/22 folic acid 1 mg tablet 1 mg PO DAILY 10/30/22 loteprednol etabonate 0.5 % eye 0 drp ophthalmic (eye) 10/30/22 drops,suspension Previous Rx's Medication Instructions Recorded acetaminophen 500 mg tablet 500 mg PO Q6H PRN fever or pain 06/13/22 (Tylenol Extra Strength) #14 tabs lidocaine 5 % topical patch 1 patch topical DAILY PRN pain #30 06/13/22 (Lidoderm) ea carvedilol 3.125 mg tablet 3.125 mg PO BID #60 tabs 07/01/22 tocilizumab 162 mg/0.9 mL 162 mg (0.9 mL) subcut Q2W #1.8 mL 08/04/22 subcutaneous pen injector (Actemra ACTPen) amlodipine 5 mg tablet 5 mg PO DAILY #30 tabs 08/05/22 alendronate 70 mg tablet 70 mg PO QWEEK #12 tabs 09/04/22 prednisone 5 mg tablet 10 mg PO DAILY #60 tabs 10/13/22 methotrexate (PF) 25 mg/0.5 mL 25 mg (0.5 mL) subcut QWEEK #2 mL 10/15/22 subcutaneous auto-injector (Rasuvo (PF)) Allergies Allergy/AdvReac Type Severity Reaction Status Date / Time lisinopril [LISINOPRIL] Allergy Severe Angioedema Verified 10/30/22 08:09 MARLO inhibitors AdvReac Unknown angioedema Uncoded 10/30/22 08:09 Review of Systems Constitutional: Constitutional: Reports no additional constitutional complaints, Denies chills, Denies fever(s) and Denies night sweats Eyes: Eyes: Reports no additional eye complaints, Denies blurry vision, Denies change in vision, Denies diplopia, Denies eye discharge, Denies loss of vision and Denies eye pain ENT: Denies dizziness Cardiovascular: Cardiovascular: Reports no additional cardiovascular complaints, Denies chest pain, Denies lightheadedness, Denies Loss of Consciousness and Denies dyspnea Respiratory: Respiratory: Reports no additional respiratory complaints and Denies dyspnea Gastrointestinal: Gastrointestinal: Reports no additional gastrointestinal complaints, Denies abdominal pain, Denies melena, Denies hematochezia, Denies change in bowel habits and Denies change in stool character Genitourinary: Genitourinary: Reports no additional male genitourinary complaints, Denies hematuria, Denies oliguria, Denies difficulty urinating, Denies dysuria, Denies urinary frequency, Denies urinary hesitancy, Denies urinary incontinence and Denies urinary urgency Musculoskeletal: Musculoskeletal: Reports no additional musculoskeletal complaints, Denies numbness and Denies tingling Comments: right wrist pain Neurologic: Denies dizziness, Denies loss of vision, Denies numbness and Denies tingling Psychiatric: Psychiatric: Reports no additional psychiatric complaints Endocrine: Endocrine: Reports no additional endocrine complaints Hematologic/Lymphatic: Hematologic/Lymphatic: Reports no additional hematologic/lymphatic complaints Allergic/Immunologic: Allergic/Immunologic: Reports no additional allergic/immunologic complaints PMF Past Medical History Attestation statement: The following information was validated with the patient. 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 Osteoporosis Seropositive rheumatoid arthritis Surgical History History of arthroscopy of left shoulder History of back surgery History of colonoscopy History of prostate surgery History of removal of cyst History of tonsillectomy and adenoidectomy Hx of eye surgery Family History Family History Mother History of breast cancer, Onset Age: 87 Father History of asthma Social History Social History Alcohol intake: never Patient Tobacco Use Status: Current everyday Tobacco user Tobacco use type: Cigarette Cigarette Packs Per Day: 0.33 Cigarettes Per Day: 7 Years Smoked: 60 +/- e-Cigarette/Vaping Use: Never Used Current occupational status: retired Current occupation: Rt handed Gender identity: Male Physical Exam Vital Signs: Vital Signs: Last Vital Signs Temp 98.2 F 11/16/22 10:40 Pulse 75 11/16/22 10:40 Resp 18 11/16/22 09:35 BP 159/94 H 11/16/22 10:40 Pulse Ox 97 11/16/22 10:40 O2 Del Method 11/16/22 10:40 BMI result Body Mass Index 28.4 Const: General: cooperative, no acute distress, alert and awake Nutritional Appearance: well nourished Orientation/consciousness: patient oriented x3 Limitations: no limitations HEENT: Head: Yes normal to inspection and Yes atraumatic Ears: hearing grossly normal bilaterally and external ears normal General nose exam: Normal external nose present, no nasal discharge noted and no epistaxis Face and sinus: Yes normal facial exam, No abrasion and No laceration Mouth: Normal oral and palatal mucosa present, no drooling and no muffled voice Eyes: General: appearance normal, both eyes and all related structures Periorbital: periorbital findings normal Eyelids: Yes eyelids normal Conjunctivae: conjunctivae normal Pupils: Equal, round and reactive pupils present EOM: EOMs intact bilaterally Neck: Neck: Yes normal visual inspection, Yes full ROM and Yes no lymphadenopathy Chest: Chest palpation & inspection: normal inspection of the chest Resp: Effort & Inspection: normal respiratory effort and able to speak in complete sentences Auscultation: clear to auscultation bilaterally Cardio: Rate: regular rate Rhythm: regular rhythm GI: Inspection: Yes normal to inspection Neuro: General: patient oriented x3 and moves all extremities Cranial nerves: Yes Equal, round and reactive pupils present Cognition (Neuro): normal cognition Motor exam (neuro): 5/5 motor strength present throughout Sensory Exam: Normal double simultaneous stimulation for sensation Coordination: [id number] test normal Extrem: General: Yes normal to inspection, Yes full ROM and Yes capillary refill normal Psych: Appearance: grossly normal Mental Status: mental status grossly normal Affect: normal affect Attitude: cooperative Thought process: Normal thought process present Thought content: Normal thought content present Insight: Good insight present (Psych) Medications Administered Discontinued Medications Generic Name Dose Route Start Last Admin Trade Name Freq PRN Reason Stop Dose Admin Ketorolac Tromethamine 15 mg 11/16/22 10:31 11/16/22 10:44 Ketorolac Tromethamine 15 Mg/Ml Vial IM 11/16/22 10:32 15 mg ONCE ONE Administration Medical Decision Making Medical Decision Making MDM Narrative: Patient is a 77 year old assigned male at with a history of RA presenting to the emergency department today with right wrist pain. Patient's physical exam was unremarkable. Patient's right wrist x-ray showed no acute process. Patient's current presentation is most consistent with an RA flare. I explained my physical exam findings as well as all test results to the patient. I answered all questions asked by the patient. Patient received IM toradol and his right wrist was wrapped with an marlo bandage which he stated helped his symptoms significantly. I stressed the importance of the patient taking his medication as prescribed. I stressed the importance of the patient following up with his primary care provider. I stressed the importance of the patient returning to the emergency department immediately if his symptoms were to worsen or if he were to develop any dizziness, shortness of breath, difficulty breathing, chest pain, blurry vision, loss of vision, nausea, vomiting, abdominal pain, fever, chills, back pain, or any other complaints. Patient verbalized agreement and understanding with this treatment plan and discharge. Differential Diagnosis Differential Diagnoses: The differential diagnosis associated with the presentation includes right wrist pain, RA flare Radiology Impression Discussion of test interpretation with radiology: I have reviewed the radiologist's reading. Radiologist Impression: My interpretation is in agreement with the radiologist's impression of this imaging study. EXAMINATION: XR WRIST, RIGHT CLINICAL INFORMATION: Wrist pain? COMPARISON: Wrist radiographs 07/15/2022? TECHNIQUE: 4 view of the right wrist. FINDINGS: Again noted is a plate and screw device overlying the distal radius on its ventral surface with associated distal radial fracture. Hardware appears intact. No new fractures are seen. Mild degenerative changes present at the radiocarpal joint? XR/XR wrist RT 2V IMPRESSION: Unchanged appearance of distal radial fracture with plate and screw device. Dictated By: Vikash Estrada MD Signed By: Electronically signed by Vikash Estrada MD 11/16/22 1057 Procedures Orthopedic Splinting/Casting Injury #1: Side: right Upper Extremity Injury Location: wrist Upper Extremity Immobilizer: Marlo wrap Discharge Plan Discharge Clinical Impression: Arthritis Patient Disposition: Home, Self-Care Instructions: Rheumatoid Arthritis (ED) Additional Instructions: Follow up with your primary care provider and your private duty nurse. Return to the emergency department immediately if your symptoms worsen or if you develop any dizziness, shortness of breath, difficulty breathing, chest pain, blurry vision, loss of vision, nausea, vomiting, abdominal pain, fever, chills, back pain, or any other complaints. Prescriptions: No Action carvedilol 3.125 mg tablet 3.125 mg PO BID Qty: 60 4RF Rx Instructions: must administer with a meal/food prednisone 5 mg tablet 10 mg PO DAILY Qty: 60 1RF Rasuvo (PF) 25 mg/0.5 mL auto-injector 25 mg subcut QWEEK Qty: 2 1RF Hold Instructions: Doctor's Order acetaminophen [Tylenol Extra Strength] 500 mg tablet 500 mg PO Q6H PRN (Reason: fever or pain) Qty: 14 0RF lidocaine [Lidoderm] 5 % adhesive patch,medicated 1 patch topical DAILY MDD remove after 12 hours PRN (Reason: pain) Qty: 30 0RF Rx Instructions: leave on most painful area for up to 12 hrs atorvastatin 40 mg tablet 40 mg PO BEDTIME cholecalciferol (vitamin D3) 25 mcg (1,000 unit) tablet 25 mcg PO DAILY albuterol sulfate 90 mcg/actuation HFA aerosol inhaler 2 puff inhalation Q4H PRN (Reason: dyspnea) omeprazole 20 mg capsule,delayed release(DR/EC) 20 mg PO QAM melatonin 3 mg tablet 3 mg PO BEDTIME PRN (Reason: insomnia) sennosides 8.6 mg tablet 17.2 mg PO BEDTIME PRN (Reason: constipation) fluticasone propionate 220 mcg/actuation HFA aerosol inhaler 2 puff inhalation BID Incruse Ellipta 62.5 mcg/actuation blister with device 1 inh inhalation BEDTIME docusate sodium [Colace] 100 mg capsule 100 mg PO BID olopatadine 0.1 % drops 1 drp ophthalmic (eye) QID amlodipine 5 mg tablet 5 mg PO DAILY Qty: 30 5RF loteprednol etabonate 0.5 % drops,suspension 0 drp ophthalmic (eye) folic acid 1 mg tablet 1 mg PO DAILY oxycodone 5 mg tablet 5 mg PO Q12H PRN (Reason: pain) Actemra ACTPen 162 mg/0.9 mL pen injector 162 mg subcut Q2W Qty: 1.8 3RF alendronate 70 mg tablet 70 mg PO QWEEK Qty: 12 1RF Hold Instructions: Doctor's Order Referrals: Daisha Crane MD [Primary Care Provider] - Interventions: ED Discharge Assessment Last Done: 11/16/22 10:48 Discharge Date/Time: 11/16/22 10:56 Print Language: Japanese
[2022-11-16 10:40] VITALS: BP 159/94; PULSE 75; TEMP 36.8; O2SAT 97
--- NOTE | 2022-11-16 10:42 | PC.NURSE ---
THE PT IS NOT HAVING A CVA. THIS RN WAS UNABLE TO GET OUT OF THE CHART.
[2022-11-16] MEDS: Ketorolac Tromethamine 15 MG/ML VIAL IM (10:44)
== END 2022-11-16 10:56 | disposition home or self-care (01) ==
PROVIDERS: Emergency Provider Emergency Medicine; PCP Family Medicine
DX: M05.731 Rheumatoid arthritis with rheumatoid factor of right wrist without organ or systems involvement (principal); I10 Essential (primary) hypertension; E78.5 Hyperlipidemia, unspecified; Z79.52 Long term (current) use of systemic steroids; Z79.02 Long term (current) use of antithrombotics/antiplatelets; Z79.899 Other long term (current) drug therapy
CPT/HCPCS: 73100; 96372; 99284; J1885

== ENCOUNTER 2022-11-16 11:05 | Outpatient (REF) | payer OTHER, SELFPAY ==
[2022-11-16 11:22] LABS: MANUAL DIFF FLAG NO
[2022-11-16 12:11] LABS: Basophils Percent Auto 0.3 % (0-2); Eosinophils Absolute Auto 0.1 X10*3/uL (0.0-0.4); Eosinophils Percent Auto 0.5 % (0-4); Hemoglobin 12.4 g/dl (14.0-18.0); Imm Gran Abs Auto 0.08 X10*3/uL (0.00-0.03); Imm Gran Pct Auto 0.6 % (0.0-0.4); Lymphocytes Absolute Auto 1.6 X10*3/uL (1.2-4.9); Lymphocytes Percent Auto 11.8 % (20-40); Mean Corpuscular Hemoglobin 25.6 pg (27.0-33.0); Mean Corpuscular Volume 82.6 fL (80.0-98.0); Mean Platelet Volume 9.6 fL (9.4-12.4); Monocytes Absolute Auto 0.4 X10*3/uL (0.1-1.2); Monocytes Percent Auto 3.3 % (2-11); Neutrophils Percent Auto 83.5 % (45-73); Platelet Count 275 X10*3/uL (160-400); Red Blood Count 4.84 X10*6/uL (4.60-5.80); Red Cell Distribution Width 21.1 % (11.0-16.0); White Blood Count 13.2 X10*3/uL (4.8-10.8)
[2022-11-16 12:48] LABS: Alanine Aminotransferase 28 U/L (0-40); Albumin Level 4.8 g/dL (3.5-5.0); Alkaline Phosphatase 67 U/L (39-117); Anion Gap 13 (12-20); Aspartate Amino Transferase 17 U/L (5-37); Bilirubin Total 0.9 mg/dL (0.0-1.0); Blood Urea Nitrogen 10 mg/dL (9-16); C Reactive Protein < 0.04 mg/dL (< or = 0.50); Calcium 9.8 mg/dL (8.4-10.2); Carbon Dioxide 25 mmol/L (22-29); Chloride 104 mmol/L (96-108); Cholesterol 177 mg/dL; Estimated Glomerular Filt Rate > 60; Glucose Random 128 mg/dL (60-115); HDL Cholesterol 69 mg/dL; LDL Cholesterol Calculated 75 mg/dl; Potassium 4.1 mmol/L (3.3-5.1); Sodium 138 mmol/L (135-145); Total Protein 7.4 g/dL (6.5-8.0); Triglycerides 168 mg/dL
[2022-11-16 13:05] LABS: Erythrocyte Sedimentation Rate 4 MM/HR (0-15)
== END 2022-11-16 11:06 | disposition home or self-care (01) ==
LOC: HO.LAB 11:05
PROVIDERS: PCP Family Medicine; Visit Provider Student in an Organized Health Care Education/Training Program
DX: M05.9 Rheumatoid arthritis with rheumatoid factor, unspecified (principal); E78.5 Hyperlipidemia, unspecified
CPT/HCPCS: 36415; 80053; 80061; 85025; 85652; 86140

== ENCOUNTER → 2022-12-11 12:43 | Outpatient (BNVA) | payer OTHER, SELFPAY | PROVIDERS: PCP Family Medicine; Visit Provider Nurse Practitioner Family | DX: Z01.810 Encounter for preprocedural cardiovascular examination (principal); M05.70 Rheumatoid arthritis with rheumatoid factor of unspecified site without organ or systems involvement; I10 Essential (primary) hypertension; Q23.1 Congenital insufficiency of aortic valve; I77.810 Thoracic aortic ectasia | CPT/HCPCS: 93005; 99212 ==

== ENCOUNTER → 2023-01-06 13:41 | Outpatient (BNVA) | payer OTHER, SELFPAY | PROVIDERS: Visit Provider Orthopaedic Surgery | DX: M65.9 Synovitis and tenosynovitis, unspecified (principal) | CPT/HCPCS: 99212 ==

== ENCOUNTER 2023-02-15 08:24 | Outpatient (REF) | payer OTHER, SELFPAY ==
[2023-02-15 08:37] LABS: MANUAL DIFF FLAG NO
[2023-02-15 08:51] LABS: Basophils Absolute Auto 0.1 X10*3/uL (0.0-0.2); Basophils Percent Auto 0.6 % (0-2); Eosinophils Absolute Auto 0.2 X10*3/uL (0.0-0.4); Eosinophils Percent Auto 2.5 % (0-4); Hematocrit 39.9 % (42.0-52.0); Imm Gran Abs Auto 0.06 X10*3/uL (0.00-0.03); Imm Gran Pct Auto 0.6 % (0.0-0.4); Lymphocytes Absolute Auto 2.4 X10*3/uL (1.2-4.9); Mean Corpuscular HGB Conc 30.1 g/dl (31.0-36.0); Mean Corpuscular Hemoglobin 25.6 pg (27.0-33.0); Mean Corpuscular Volume 85.1 fL (80.0-98.0); Mean Platelet Volume 9.1 fL (9.4-12.4); Monocytes Absolute Auto 0.5 X10*3/uL (0.1-1.2); Monocytes Percent Auto 5.7 % (2-11); Neutrophils Percent Auto 64.6 % (45-73); Platelet Count 237 X10*3/uL (160-400); Red Blood Count 4.69 X10*6/uL (4.60-5.80); Red Cell Distribution Width 20.9 % (11.0-16.0); White Blood Count 9.3 X10*3/uL (4.8-10.8)
[2023-02-15 09:28] LABS: Alanine Aminotransferase 26 U/L (0-40); Albumin Level 4.6 g/dL (3.5-5.0); Alkaline Phosphatase 65 U/L (39-117); Anion Gap 13 (12-20); Aspartate Amino Transferase 16 U/L (5-37); Bilirubin Total 0.8 mg/dL (0.0-1.0); Blood Urea Nitrogen 9 mg/dL (9-16); C Reactive Protein < 0.10 mg/dL (< or = 0.50); Calcium 9.6 mg/dL (8.4-10.2); Carbon Dioxide 24 mmol/L (22-29); Chloride 107 mmol/L (96-108); Estimated Glomerular Filt Rate > 60; Glucose Random 165 mg/dL (60-115); Sodium 140 mmol/L (135-145); Total Protein 6.9 g/dL (6.5-8.0)
[2023-02-15 09:31] LABS: Erythrocyte Sedimentation Rate 2 MM/HR (0-15)
== END 2023-02-15 08:25 | disposition home or self-care (01) ==
LOC: HO.LAB 08:24
PROVIDERS: Visit Provider Student in an Organized Health Care Education/Training Program
DX: Z51.81 Encounter for therapeutic drug level monitoring (principal); Z79.899 Other long term (current) drug therapy
CPT/HCPCS: 36415; 80053; 85025; 85652; 86140

== ENCOUNTER → 2023-02-19 10:50 | Outpatient (BNVA) | payer OTHER, SELFPAY | PROVIDERS: PCP Family Medicine; Visit Provider Student in an Organized Health Care Education/Training Program | DX: M10.09 Idiopathic gout, multiple sites (principal); M05.9 Rheumatoid arthritis with rheumatoid factor, unspecified; M81.0 Age-related osteoporosis without current pathological fracture; Z79.52 Long term (current) use of systemic steroids; Z72.0 Tobacco use; Z51.81 Encounter for therapeutic drug level monitoring; Z79.899 Other long term (current) drug therapy | CPT/HCPCS: 20610; 99212 ==

== ENCOUNTER 2023-04-01 04:26 | Emergency (ER) | payer OTHER, SELFPAY ==
--- NOTE | ~2023-04-01 | CT_ITS ---
EXAMINATION: CT ABDOMEN AND PELVIS WITHOUT CONTRAST CLINICAL INFORMATION: Right-sided pain COMPARISON: 08/09/2017 TECHNIQUE: Multidetector volumetric imaging was performed from the superior aspect of the liver through the pubic symphysis. Sagittal and coronal reformatted images were obtained on the technologist's workstation. This CT examination was performed using dose optimization techniques as appropriate, variously including the following: *Automated exposure control *Adjustment of mA and/or kV according to patient size (this includes techniques or standardized protocols for targeted exams where dose is matched to indication/reason for exam; i.e. extremities or head) *Use of iterative reconstruction technique DLP: 551 mGy-cm FINDINGS: LUNG BASES: The visualized lung bases are unremarkable. LIVER, GALLBLADDER, AND BILIARY TREE: The liver is normal in size, shape, and attenuation. No focal hepatic lesion or biliary ductal dilatation is identified on this noncontrast exam. The gallbladder is unremarkable with no evidence of radiopaque gallstones, gallbladder wall thickening, or obvious pericholecystic inflammatory changes. PANCREAS: Unremarkable. SPLEEN: Unremarkable. ADRENAL GLANDS: Small low-density right adrenal nodule favors a lipid rich adenoma. Left adrenal gland is unremarkable. KIDNEYS AND URETERS: No hydronephrosis or obstructing calculus bilaterally. Bilateral renal cysts noted; no follow-up recommended. BLADDER: Unremarkable. GASTROINTESTINAL TRACT: Mild colonic diverticulosis. No evidence of bowel obstruction. There is prominent submucosal fat within some segments of the colon which may be seen as sequelae of prior inflammation. The appendix is unremarkable. No free fluid or free air is seen. ABDOMINAL WALL: No significant hernia is appreciated. LYMPH NODES: Normal. VASCULAR: There is atherosclerotic calcification along the aorta and iliac arteries. PELVIC VISCERA: Unremarkable. OSSEOUS STRUCTURES: Degenerative changes are present in the spine. 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 CT/CT abdomen pelvis wo IV con IMPRESSION: No acute findings identified in the abdomen/pelvis.
[2023-04-01 04:46] VITALS: BMI 28.4
[2023-04-01 04:54] LABS: Basophils Percent Auto 0.5 % (0-2); Eosinophils Absolute Auto 0.1 X10*3/uL (0.0-0.4); Eosinophils Percent Auto 1.9 % (0-4); Hematocrit 39.3 % (42.0-52.0); Hemoglobin 12.2 g/dl (14.0-18.0); Imm Gran Abs Auto 0.02 X10*3/uL (0.00-0.03); Imm Gran Pct Auto 0.5 % (0.0-0.4); Lymphocytes Absolute Auto 2.3 X10*3/uL (1.2-4.9); Lymphocytes Percent Auto 52.6 % (20-40); MANUAL DIFF FLAG SCAN; Mean Corpuscular Hemoglobin 25.8 pg (27.0-33.0); Mean Corpuscular Volume 83.1 fL (80.0-98.0); Mean Platelet Volume 8.4 fL (9.4-12.4); Monocytes Absolute Auto 0.9 X10*3/uL (0.1-1.2); Monocytes Percent Auto 20.3 % (2-11); Neutrophils Percent Auto 24.2 % (45-73); Platelet Count 134 X10*3/uL (160-400); Red Blood Count 4.73 X10*6/uL (4.60-5.80); Red Cell Distribution Width 20.5 % (11.0-16.0); SCAN SMEAR FLAG 1; White Blood Count 4.3 X10*3/uL (4.8-10.8)
[2023-04-01 05:00] VITALS: BP 130/79; PULSE 82; RESP 16; TEMP 37.3; O2SAT 98
[2023-04-01 05:03] LABS: Appearance Urine Clear; Color Urine Yellow; Glucose Urine UA Negative (Negative); Leukocyte Esterase Urine Small (1+) (Negative); Nitrite Urine Negative (Negative); UMIC TRIGGER UACC YES; Urine Blood Negative (Negative); Urine Ketones Negative (Negative); Urine Protein Trace mg/dL (Neg-Trace)
[2023-04-01 05:14] LABS: Bacteria Urine None Seen (None Seen); Hyaline Casts Urine 0-2 /LPF (0-2); RBC Urine 0-2 /HPF (0-2); Squamous Epithelial Cell Urine 0-2 /HPF (0-2); UACC Culture Trigger YES; WBC Urine 0-5 /HPF (0-5)
[2023-04-01 05:16] LABS: SLIDE REVIEW VERIFIED
[2023-04-01 05:17] LABS: Alanine Aminotransferase 29 U/L (0-40); Albumin Level 4.2 g/dL (3.5-5.0); Alkaline Phosphatase 55 U/L (39-117); Anion Gap 14 (12-20); Aspartate Amino Transferase 17 U/L (5-37); Bilirubin Direct 0.3 mg/dL (0.0-0.5); Blood Urea Nitrogen 5 mg/dL (9-16); Calcium 9.7 mg/dL (8.4-10.2); Carbon Dioxide 22 mmol/L (22-29); Chloride 107 mmol/L (96-108); Creatinine Clr Calc Pharmacy 90.5; Estimated Glomerular Filt Rate > 60; Glucose Random 112 mg/dL (60-115); Lipase 21 U/L (8-78); Potassium 3.5 mmol/L (3.3-5.1); Sodium 139 mmol/L (135-145); Total Protein 6.5 g/dL (6.5-8.0)
[2023-04-01 06:11] VITALS: BP 125/66; PULSE 85; RESP 16; TEMP 37.6; O2SAT 97
--- NOTE | 2023-04-01 06:40 | ED.ABDPAIN ---
HPI - Abdominal Pain General Chief Complaint: Abdominal Pain Stated Complaint: rlq pain,since yesterday per ems Time Seen by Provider: 04/01/23 06:32 Source: patient Mode of arrival: ambulatory Limitations: no limitations History of Present Illness HPI narrative: 77 yo male with history of rheumatoid arthritis, HTN, iron deficiency, hyperlipidemia, umbilical hernia, gout presents to the ER for evaluation of worsening right-sided abdominal pain that started yesterday. He states the pain is his entire abdomen but more on the right side. It comes and goes. It is cramping in nature. He states it is at maximum severity and 9/10 and can also be sharp. He denies any associated nausea, vomiting, diarrhea. He states his last bowel movement was yesterday morning and he had to strain to have a bowel movement. He is on Colace at home. He denies any urinary symptoms, including burning, frequency, urgency, hematuria. No fever or chills. No chest pain or shortness of breath. MD elicited complaint: abdominal pain Onset (ago): day(s) (1) Pain Consistency: intermittent Location: RUQ and RLQ Severity: severe Pain scale (0-10): 9 Quality: cramping and sharp Radiation: none Migration to: no migration Exacerbating factors: nothing Relieving factors: nothing Associated symptoms: constipation Related Data Home Medications Medication Instructions Recorded Confirmed albuterol sulfate 90 mcg/actuation 2 puff inhalation Q4H PRN dyspnea 08/01/20 01/06/23 aerosol inhaler atorvastatin 40 mg tablet 40 mg PO BEDTIME 08/01/20 01/06/23 cholecalciferol (vitamin D3) 25 25 mcg PO DAILY 08/01/20 01/06/23 mcg (1,000 unit) tablet docusate sodium 100 mg capsule 100 mg PO BID 08/01/20 01/06/23 (Colace) fluticasone propionate 220 2 puff inhalation BID 08/01/20 01/06/23 mcg/actuation HFA aerosol inhaler melatonin 3 mg tablet 3 mg PO BEDTIME PRN insomnia 08/01/20 01/06/23 omeprazole 20 mg capsule,delayed 20 mg PO QAM 08/01/20 01/06/23 release sennosides 8.6 mg tablet 17.2 mg PO BEDTIME PRN constipation 08/01/20 01/06/23 umeclidinium 62.5 mcg/actuation 1 inh inhalation BEDTIME 08/01/20 01/06/23 blister powder for inhalation (Incruse Ellipta) olopatadine 0.1 % eye drops 1 drp ophthalmic (eye) QID 03/11/22 01/06/23 oxycodone 5 mg tablet 5 mg PO Q12H PRN pain 08/04/22 01/06/23 loteprednol etabonate 0.5 % eye 1 drp ophthalmic (eye) TID 10/30/22 01/06/23 drops,suspension Previous Rx's Medication Instructions Recorded acetaminophen 500 mg tablet 500 mg PO Q6H PRN fever or pain 06/13/22 (Tylenol Extra Strength) #14 tabs lidocaine 5 % topical patch 1 patch topical DAILY PRN pain #30 06/13/22 (Lidoderm) ea carvedilol 6.25 mg tablet 6.25 mg PO BID #60 tabs 12/11/22 folic acid 1 mg tablet 1 mg PO QAM #90 tabs 12/22/22 amlodipine 5 mg tablet 5 mg PO DAILY 90 days #90 tabs 01/13/23 alendronate 70 mg tablet 70 mg PO QWEEK #12 tabs 02/09/23 prednisone 10 mg tablet See Rx Instructions PO .COMPLEX 02/19/23 #30 tabs methotrexate (PF) 25 mg/0.5 mL 25 mg (0.5 mL) subcut QWEEK #2 mL 02/25/23 subcutaneous auto-injector (Rasuvo (PF)) dicyclomine 10 mg capsule 10 mg PO QID PRN abdominal pain 04/01/23 #20 caps polyethylene glycol 3350 17 gram 17 g PO DAILY PRN constipation #30 04/01/23 oral powder packet (Miralax) ea tocilizumab 162 mg/0.9 mL 162 mg (0.9 mL) subcut Q2W #1.8 mL 04/01/23 subcutaneous pen injector (Actemra ACTPen) Allergies Allergy/AdvReac Type Severity Reaction Status Date / Time lisinopril [LISINOPRIL] Allergy Severe Angioedema Verified 04/01/23 04:48 LAITH Inhibitors AdvReac Severe Angioedema Verified 04/01/23 04:48 Review of Systems Review of Systems Yes all other systems are reviewed and are negative PMFSH Past Medical History Medical History Abscess Arthritis Ascending aorta dilation Asthma COPD (chronic obstructive pulmonary disease) Epidermal inclusion cyst GERD (gastroesophageal reflux disease) History of prostate cancer 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 Osteoporosis Seropositive rheumatoid arthritis Surgical History History of arthroscopy of left shoulder History of back surgery History of colonoscopy History of open reduction and internal fixation (ORIF) procedure History of prostate surgery History of removal of cyst History of tonsillectomy and adenoidectomy Hx of eye surgery Hx of umbilical hernia repair Family History Family History Mother History of breast cancer, Onset Age: 87 Father History of asthma Social History Social History Alcohol intake: never Patient Tobacco Use Status: Current everyday Tobacco user Tobacco use type: Cigarette Cigarette Packs Per Day: 0.5 Cigarettes Per Day: 10 Years Smoked: 60 +/- e-Cigarette/Vaping Use: Never Used Advance Directives: No Advance Directives Information Provided: Yes Current occupational status: retired Current occupation: Rt handed Gender identity: Male Physical Exam ED Vital Signs: Vital Signs - 24 hr 04/01/23 05:00 04/01/23 06:11 04/01/23 08:07 Temperature 99.2 F 99.6 F 99.3 F Pulse Rate 82 85 78 Respiratory Rate 16 16 16 Blood Pressure 130/79 125/66 120/71 Pulse Oximetry 98 97 95 Oxygen Delivery Method Room Air Room Air Room Air BMI result Body Mass Index 28.4 Appearance: Alert. Oriented X3. No acute distress, awoken from sleep Head: normocephalic, atraumatic. Eyes: Pupils equal, round and reactive to light. ENT: Pharynx normal. No tonsillar swelling or exudate. Neck: Normal inspection. Neck supple. CVS: Normal heart rate and rhythm. Pulses normal. Respiratory: No respiratory distress. Breath sounds normal. Abdomen: Soft with tenderness of the RUQ and RLQ, no rebound or guarding, normal active +BS x4 Skin: Skin warm and dry. Normal skin color. Normal skin turgor. No rashes. Extremities: No lower extremity edema. No joint swelling. Neuro/psych: Oriented X 3. No motor deficit. No sensory deficit. CN II-XII intact. Normal speech and cognition. Medical Decision Making Medical Decision Making [facility] Narrative: 77 yo male with history of rheumatoid arthritis, HTN, iron deficiency, hyperlipidemia, umbilical hernia, gout presents to the ER for evaluation of worsening right-sided abdominal pain that started yesterday. He has some tenderness on the right side of his abdomen that the upper and lower quadrants but has no rebound or guarding. His bowel sounds are normal. His abdomen is soft. Lab workup today is unremarkable. His CT scan today was normal. Given his history of constipation and straining to have bowel yesterday, his pain is most likely constipation. interpreter for the deaf used to discuss results and impression. Will start him on Bentyl for abdominal pain and MiraLax for constipation. He was encouraged follow-up with primary care doctor, increase oral hydration and fiber intake. He is stable for discharge home Differential Diagnosis Differential Diagnoses: The differential diagnosis associated with the presentation includes Acute cholecystitis, acute appendicitis, constipation, diverticulitis, colitis Admission/Observation Consideration of admission/observation: Escalation of care including admission/observation considered 77-year-old with right-sided abdominal pain and tenderness, initial concern for cholecystitis and/or appendicitis Lab Data [facility] Lab Attestation statement: I reviewed the patient's lab results. Stable anemia, leukopenia, thrombocytopenia, normal renal function, LFTs are normal. 04/01/23 04:50 04/01/23 04:50 Labs: Lab Results 04/01/23 04/01/23 04/01/23 Range/Units 04:50 04:50 04:56 WBC 4.3 L (4.8-10.8) X10*3/uL RBC 4.73 (4.60-5.80) X10*6/uL Hgb 12.2 L (14.0-18.0) g/dl Hct 39.3 L (42.0-52.0) % MCV 83.1 (80.0-98.0) fL MCH 25.8 L (27.0-33.0) pg MCHC 31.0 (31.0-36.0) g/dl RDW 20.5 H (11.0-16.0) % Plt Count 134 L D (160-400) X10*3/uL MPV 8.4 L (9.4-12.4) fL Immature Gran % (Auto) 0.5 H (0.0-0.4) % Neut % (Auto) 24.2 L (45-73) % Lymph % (Auto) 52.6 H (20-40) % Routt % (Auto) 20.3 H (2-11) % Eos % (Auto) 1.9 (0-4) % Baso % (Auto) 0.5 (0-2) % Lymph # (Auto) 2.3 (1.2-4.9) X10*3/uL Routt # (Auto) 0.9 (0.1-1.2) X10*3/uL Eos # (Auto) 0.1 (0.0-0.4) X10*3/uL Baso # (Auto) 0.0 (0.0-0.2) X10*3/uL Abs Immat Gran (auto) 0.02 (0.00-0.03) X10*3/uL Absolute Neuts (auto) 1.0 L (2.0-8.3) x10*3/uL Absolute Nucleated RBC 0.000 (0.0-0.012) X10*3/uL Nucleated RBC % (auto) 0.0 (0.0-0.2) /100WBC Smear Tech's Comments VERIFIED Sodium 139 (135-145) mmol/L Potassium 3.5 (3.3-5.1) mmol/L Chloride 107 (96-108) mmol/L Carbon Dioxide 22 (22-29) mmol/L Anion Gap 14 (12-20) BUN 5 L (9-16) mg/dL Creatinine 0.70 (0.5-1.4) mg/dL Estim Creat Clear Calc 90.5 Estimated GFR > 60 Random Glucose 112 (60-115) mg/dL Calcium 9.7 (8.4-10.2) mg/dL Total Bilirubin 1.0 (0.0-1.0) mg/dL Direct Bilirubin 0.3 (0.0-0.5) mg/dL AST 17 (5-37) U/L ALT 29 (0-40) U/L Alkaline Phosphatase 55 (39-117) U/L Total Protein 6.5 (6.5-8.0) g/dL Albumin 4.2 (3.5-5.0) g/dL Lipase 21 (8-78) U/L Urine Color Yellow Urine Appearance Clear Urine pH 7.0 (5.0-9.0) Ur Specific Foley 1.010 (1.005-1.025) Urine Protein Trace (Neg-Trace) mg/dL Urine Glucose (UA) Negative (Negative) mg/dL Urine Ketones Negative (Negative) mg/dL Urine Blood Negative (Negative) Urine Nitrite Negative (Negative) Ur Leukocyte Esterase Small (1+) H (Negative) Urine RBC 0-2 (0-2) /HPF Urine WBC 0-5 (0-5) /HPF Ur Squamous Epith Cells 0-2 (0-2) /HPF Urine Bacteria None Seen (None Seen) Hyaline Casts 0-2 (0-2) /LPF Independent Interpretation I performed an independent interpretation of an: CT Scan Interpretation: CT scan without any evidence of acute appendicitis or cholecystitis, agree with radiologist read. Radiology Impression Discussion of test interpretation with radiology: I have reviewed the radiologist's reading. Radiologist Impression: CT/CT abdomen pelvis wo IV con IMPRESSION: No acute findings identified in the abdomen/pelvis. External Record Review External record reviewed: Office record, Outpatient record, Prior outpatient labs and Prior outpatient radiology Prescription Management I considered prescription management with: Pain Medication Chronic Conditions Patient?s care impacted by: Hypertension Medications Administered Discontinued Medications Generic Name Dose Route Start Last Admin Trade Name Freq PRN Reason Stop Dose Admin Ketorolac Tromethamine 30 mg 04/01/23 07:45 04/01/23 08:08 Ketorolac Tromethamine 30 Mg/Ml Vial IM 04/01/23 07:46 30 mg ONCE ONE Administration Critical Care Time Critical Care Time Critical Care Time: No Discharge Plan Discharge Clinical Impression: Constipation Patient Disposition: Home, Self-Care Instructions: Constipation (DC) Additional Instructions: Your lab workup today was normal. Your CT scan was normal. Your pain is most likely due to constipation. Recommend taking the prescribed medication as needed for cramping pains. Start the prescribed Miralax once per day Continue colace as you are Follow up with your PCP as well as GI doctor if pain persists. If you develop new or worsening symptoms call 911 or come back to the ER for further evaluation. Freeman an?lisis de laboratorio de hoy fue normal. Freeman tomograf?a computarizada fue normal. Lo m?s probable es que freeman dolor se deba al estre?imiento. Recomiende gopi el medicamento recetado seg?n sea necesario para los tremaine de calambres. Comience el Miralax recetado brian vez al d?a sigue colace anh estas Rinku un seguimiento con freeman PCP y con freeman m?dico gastrointestinal si el dolor persiste. Si desarrolla s?ntomas nuevos o que empeoran, llame al 911 o regrese a la holley de emergencias para brian evaluaci?n adicional. Prescriptions: New dicyclomine 10 mg capsule 10 mg PO QID PRN (Reason: abdominal pain) Qty: 20 0RF polyethylene glycol 3350 [Miralax] 17 gram powder in packet 17 g PO DAILY PRN (Reason: constipation) Qty: 30 0RF No Action folic acid 1 mg tablet 1 mg PO QAM Qty: 90 1RF amlodipine 5 mg tablet 5 mg PO DAILY 90 Days Qty: 90 3RF alendronate 70 mg tablet 70 mg PO QWEEK Qty: 12 1RF Hold Instructions: Doctor's Order Rasuvo (PF) 25 mg/0.5 mL auto-injector 25 mg subcut QWEEK Qty: 2 2RF Hold Instructions: Doctor's Order Actemra ACTPen 162 mg/0.9 mL pen injector 162 mg subcut Q2W Qty: 1.8 2RF acetaminophen [Tylenol Extra Strength] 500 mg tablet 500 mg PO Q6H PRN (Reason: fever or pain) Qty: 14 0RF lidocaine [Lidoderm] 5 % adhesive patch,medicated 1 patch topical DAILY MDD remove after 12 hours PRN (Reason: pain) Qty: 30 0RF Rx Instructions: leave on most painful area for up to 12 hrs atorvastatin 40 mg tablet 40 mg PO BEDTIME cholecalciferol (vitamin D3) 25 mcg (1,000 unit) tablet 25 mcg PO DAILY albuterol sulfate 90 mcg/actuation HFA aerosol inhaler 2 puff inhalation Q4H PRN (Reason: dyspnea) omeprazole 20 mg capsule,delayed release(DR/EC) 20 mg PO QAM melatonin 3 mg tablet 3 mg PO BEDTIME PRN (Reason: insomnia) sennosides 8.6 mg tablet 17.2 mg PO BEDTIME PRN (Reason: constipation) fluticasone propionate 220 mcg/actuation HFA aerosol inhaler 2 puff inhalation BID Incruse Ellipta 62.5 mcg/actuation blister with device 1 inh inhalation BEDTIME docusate sodium [Colace] 100 mg capsule 100 mg PO BID olopatadine 0.1 % drops 1 drp ophthalmic (eye) QID loteprednol etabonate 0.5 % drops,suspension 1 drp ophthalmic (eye) TID carvedilol 6.25 mg tablet 6.25 mg PO BID Qty: 60 5RF Rx Instructions: must administer with a meal/food prednisone 10 mg tablet See Rx Instructions PO .COMPLEX Qty: 30 1RF Rx Instructions: Take 4 tabs by mouth once daily with breakfast for 3 days then 3 tabs daily for 3 days then 2 tabs daily for 3 days and 1 tab daily for 3 days then stop oxycodone 5 mg tablet 5 mg PO Q12H PRN (Reason: pain) Referrals: Daisha Crane MD [Primary Care Provider] - Interventions: ED Discharge Assessment Last Done: 04/01/23 08:28 Discharge Date/Time: 04/01/23 08:28 Print Language: Kosovan
[2023-04-01 08:07] VITALS: BP 120/71; PULSE 78; RESP 16; TEMP 37.4; O2SAT 95
[2023-04-01] MEDS: Ketorolac Tromethamine 30 MG/ML VIAL IM (08:08)
== END 2023-04-01 08:28 | disposition home or self-care (01) ==
PROVIDERS: Emergency Provider Emergency Medicine Emergency Medical Services; PCP Family Medicine
DX: K59.00 Constipation, unspecified (principal); R07.81 Pleurodynia; F17.210 Nicotine dependence, cigarettes, uncomplicated; Z71.6 Tobacco abuse counseling; Z79.899 Other long term (current) drug therapy
CPT/HCPCS: 36415; 74176; 80048; 80076; 81001; 83690; 85025; 87086; 87088; 87186; 96372; 99283; 99284; J1885

== ENCOUNTER 2023-05-18 11:24 | Emergency (ER) | payer OTHER, SELFPAY ==
[2023-05-18 11:32] VITALS: BP 140/70; PULSE 60; O2SAT 94
[2023-05-18 11:34] VITALS: BP 136/77; PULSE 58; RESP 13; TEMP 36.6; O2SAT 96
[2023-05-18 11:37] VITALS: BMI 29.1
--- NOTE | 2023-05-18 14:06 | ED_ITS ---
HPI - General Adult General Chief complaint: Wound/Laceration Stated complaint: umbilical hernia per ems Time Seen by Provider: 05/18/23 13:08 Source: patient Mode of arrival: ambulatory History of Present Illness HPI narrative: 77-year-old male who comes in with complaint of daily a.m. drainage of umbilical area without nausea, vomiting, fever, chills and continues to pass flatus and have stools. Patient states that he had an umbilical hernia repair at the site. He denies having followed up with surgery. Related Data Home Medications Medication Instructions Recorded Confirmed albuterol sulfate 90 mcg/actuation 2 puff inhalation Q4H PRN dyspnea 08/01/20 01/06/23 aerosol inhaler atorvastatin 40 mg tablet 40 mg PO BEDTIME 08/01/20 01/06/23 cholecalciferol (vitamin D3) 25 25 mcg PO DAILY 08/01/20 01/06/23 mcg (1,000 unit) tablet docusate sodium 100 mg capsule 100 mg PO BID 08/01/20 01/06/23 (Colace) fluticasone propionate 220 2 puff inhalation BID 08/01/20 01/06/23 mcg/actuation HFA aerosol inhaler melatonin 3 mg tablet 3 mg PO BEDTIME PRN insomnia 08/01/20 01/06/23 omeprazole 20 mg capsule,delayed 20 mg PO QAM 08/01/20 01/06/23 release sennosides 8.6 mg tablet 17.2 mg PO BEDTIME PRN constipation 08/01/20 01/06/23 umeclidinium 62.5 mcg/actuation 1 inh inhalation BEDTIME 08/01/20 01/06/23 blister powder for inhalation (Incruse Ellipta) olopatadine 0.1 % eye drops 1 drp ophthalmic (eye) QID 03/11/22 01/06/23 oxycodone 5 mg tablet 5 mg PO Q12H PRN pain 08/04/22 01/06/23 loteprednol etabonate 0.5 % eye 1 drp ophthalmic (eye) TID 10/30/22 01/06/23 drops,suspension Previous Rx's Medication Instructions Recorded acetaminophen 500 mg tablet 500 mg PO Q6H PRN fever or pain 06/13/22 (Tylenol Extra Strength) #14 tabs lidocaine 5 % topical patch 1 patch topical DAILY PRN pain #30 06/13/22 (Lidoderm) ea folic acid 1 mg tablet 1 mg PO QAM #90 tabs 12/22/22 amlodipine 5 mg tablet 5 mg PO DAILY 90 days #90 tabs 01/13/23 alendronate 70 mg tablet 70 mg PO QWEEK #12 tabs 02/09/23 methotrexate (PF) 25 mg/0.5 mL 25 mg (0.5 mL) subcut QWEEK #2 mL 02/25/23 subcutaneous auto-injector (Rasuvo (PF)) dicyclomine 10 mg capsule 10 mg PO QID PRN abdominal pain 04/01/23 #20 caps polyethylene glycol 3350 17 gram 17 g PO DAILY PRN constipation #30 04/01/23 oral powder packet (Miralax) ea tocilizumab 162 mg/0.9 mL 162 mg (0.9 mL) subcut Q2W #1.8 mL 04/01/23 subcutaneous pen injector (Actemra ACTPen) cefuroxime axetil 250 mg tablet 250 mg PO BID #14 tabs 04/05/23 carvedilol 6.25 mg tablet 6.25 mg PO BID 90 days #180 tabs 05/07/23 prednisone 10 mg tablet See Rx Instructions PO .COMPLEX 05/17/23 #30 tabs Allergies Allergy/AdvReac Type Severity Reaction Status Date / Time lisinopril [LISINOPRIL] Allergy Severe Angioedema Verified 04/01/23 04:48 LAITH Inhibitors AdvReac Severe Angioedema Verified 04/01/23 04:48 Review of Systems Review of Systems: Pertinent positives and negatives as stated in the [facility] Past Medical History Source: nursing notes reviewed Medical History Abscess Arthritis Ascending aorta dilation Asthma COPD (chronic obstructive pulmonary disease) Epidermal inclusion cyst GERD (gastroesophageal reflux disease) History of prostate cancer 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 Osteoporosis Seropositive rheumatoid arthritis Surgical History History of arthroscopy of left shoulder History of back surgery History of colonoscopy History of open reduction and internal fixation (ORIF) procedure History of prostate surgery History of removal of cyst History of tonsillectomy and adenoidectomy Hx of eye surgery Hx of umbilical hernia repair Family History Family History Mother History of breast cancer, Onset Age: 87 Father History of asthma Social History Social History Alcohol intake: never Patient Tobacco Use Status: Current everyday Tobacco user Tobacco use type: Cigarette Cigarette Packs Per Day: 0.5 Cigarettes Per Day: 10 Years Smoked: 60 +/- e-Cigarette/Vaping Use: Never Used Advance Directives: No Advance Directives Information Provided: No Current occupational status: retired Current occupation: Rt handed Gender identity: Male Physical Exam ED Vital Signs: Vital Signs - 24 hr 05/18/23 11:34 Temperature 97.9 F Pulse Rate 58 Respiratory Rate 13 Blood Pressure 136/77 Pulse Oximetry 96 Oxygen Delivery Method Room Air BMI result Body Mass Index 29.1 VITAL SIGNS: Reviewed. GENERAL: Well developed, well nourished, in no acute distress. HEAD: Normocephalic/atraumatic EYES: PERRLA, EOMI EARS: Ext canals without abnormality NOSE: Nares patent bilateral OROPHARYNX: no oral lesions noted, posterior pharynx clear NECK: Supple, no adenopathy LUNGS: Normal breath sounds. No adventitious sounds or accessory muscle use. SpO2<96> CARDIOVASCULAR: Regular rate and rhythm without noted murmurs ABDOMEN: Soft, there is a small eschar which overlies an area that feels then but not fluctuant, there is no surrounding erythema or induration, non-distended with bowel sounds. MUSCULOSKELETAL: No tenderness, deformities, or effusions noted on gross inspection. EXTREMITIES: No cyanosis, clubbing or edema. SKIN: Inspection of the skin reveals no rashes NEUROLOGIC: Alert and oriented x 4. Strength and sensation to light touch were grossly intact x 4. Medical Decision Making Medical Decision Making MDM Narrative: 77-year-old male with history and clinical presentation consistent with possible eschar over prior surgical site does not appear to be a hernia, no obstructive symptoms, patient appears well, I did review patient's visit history with surgery and it appears that he had an umbilical hernia on 09/2020. There is no clinical findings to suggest cellulitis or infection at this site but patient states he has what appears to be poop that comes out in the morning. This suggests the possibility of fistula as patient is already hemodynamically stable, afebrile I will refer him over to the general surgery office. Discharge Plan Discharge Clinical Impression: Umbilical abnormality Patient Disposition: Home, Self-Care Instructions: Chronic Wounds (ED), Warm Compress or Soak (ED) Additional Instructions: 1. Reanudar todos los medicamentos caseros seg?n lo prescrito. 2. Llame a la derivaci?n de cirug?a general que se le proporcion? esta tarde para programar brian liz para brian reevaluaci?n. 3. Rinku un seguimiento con freeman proveedor de atenci?n primaria tambi?n esta tarde. Regrese a la holley de emergencias si los s?ntomas empeoran. 1. Resume all home medications as prescribed. 2. Please call the general surgery referral that you have been provided this afternoon to schedule an appointment for re-evaluation. 3. Follow-up with your primary care provider this afternoon as well. Return to the ER for any worsening symptoms. Prescriptions: No Action folic acid 1 mg tablet 1 mg PO QAM Qty: 90 1RF amlodipine 5 mg tablet 5 mg PO DAILY 90 Days Qty: 90 3RF alendronate 70 mg tablet 70 mg PO QWEEK Qty: 12 1RF Hold Instructions: Doctor's Order Rasuvo (PF) 25 mg/0.5 mL auto-injector 25 mg subcut QWEEK Qty: 2 2RF Hold Instructions: Doctor's Order Actemra ACTPen 162 mg/0.9 mL pen injector 162 mg subcut Q2W Qty: 1.8 2RF carvedilol 6.25 mg tablet 6.25 mg PO BID 90 Days Qty: 180 3RF Rx Instructions: must administer with a meal/food prednisone 10 mg tablet See Rx Instructions PO .COMPLEX Qty: 30 0RF Rx Instructions: 4 daily for 3 days, 3 daily for 3 days, 2 daily for 3 days, then one daily for 3 days acetaminophen [Tylenol Extra Strength] 500 mg tablet 500 mg PO Q6H PRN (Reason: fever or pain) Qty: 14 0RF lidocaine [Lidoderm] 5 % adhesive patch,medicated 1 patch topical DAILY MDD remove after 12 hours PRN (Reason: pain) Qty: 30 0RF Rx Instructions: leave on most painful area for up to 12 hrs dicyclomine 10 mg capsule 10 mg PO QID PRN (Reason: abdominal pain) Qty: 20 0RF polyethylene glycol 3350 [Miralax] 17 gram powder in packet 17 g PO DAILY PRN (Reason: constipation) Qty: 30 0RF cefuroxime axetil 250 mg tablet 250 mg PO BID Qty: 14 0RF atorvastatin 40 mg tablet 40 mg PO BEDTIME cholecalciferol (vitamin D3) 25 mcg (1,000 unit) tablet 25 mcg PO DAILY albuterol sulfate 90 mcg/actuation HFA aerosol inhaler 2 puff inhalation Q4H PRN (Reason: dyspnea) omeprazole 20 mg capsule,delayed release(DR/EC) 20 mg PO QAM melatonin 3 mg tablet 3 mg PO BEDTIME PRN (Reason: insomnia) sennosides 8.6 mg tablet 17.2 mg PO BEDTIME PRN (Reason: constipation) fluticasone propionate 220 mcg/actuation HFA aerosol inhaler 2 puff inhalation BID Incruse Ellipta 62.5 mcg/actuation blister with device 1 inh inhalation BEDTIME docusate sodium [Colace] 100 mg capsule 100 mg PO BID olopatadine 0.1 % drops 1 drp ophthalmic (eye) QID loteprednol etabonate 0.5 % drops,suspension 1 drp ophthalmic (eye) TID oxycodone 5 mg tablet 5 mg PO Q12H PRN (Reason: pain) Referrals: Daisha Crane MD [Primary Care Provider] - Abdiel Corea MD [Physician] - (77M had umbilical hernia surgery and now complains of drainage. No cellulitis, no drainage I noted, no obstructive symptoms.......?cutaneous fistula) Print Language: Amharic
== END 2023-05-18 14:38 | disposition home or self-care (01) ==
PROVIDERS: Emergency Provider Student in an Organized Health Care Education/Training Program; PCP Family Medicine
DX: K42.9 Umbilical hernia without obstruction or gangrene (principal)
CPT/HCPCS: 99283

== ENCOUNTER 2023-05-19 11:37 | Outpatient (REF) | payer OTHER, SELFPAY | END 2023-05-19 11:38 | disposition home or self-care (01) | LOC: HO.HHCLNP 11:37 | PROVIDERS: Visit Provider Internal Medicine | DX: L02.216 Cutaneous abscess of umbilicus (principal) | CPT/HCPCS: 87070; 87073; 87077; 87186; 87205 ==

== ENCOUNTER 2023-05-25 08:12 | Outpatient (REF) | payer OTHER, SELFPAY ==
[2023-05-25 08:37] LABS: MANUAL DIFF FLAG NO
[2023-05-25 08:52] LABS: Basophils Percent Auto 0.3 % (0-2); Eosinophils Absolute Auto 0.1 X10*3/uL (0.0-0.4); Eosinophils Percent Auto 1.3 % (0-4); Hematocrit 39.3 % (42.0-52.0); Imm Gran Abs Auto 0.09 X10*3/uL (0.00-0.03); Imm Gran Pct Auto 0.9 % (0.0-0.4); Lymphocytes Absolute Auto 4.3 X10*3/uL (1.2-4.9); Lymphocytes Percent Auto 42.7 % (20-40); Mean Corpuscular HGB Conc 30.5 g/dl (31.0-36.0); Mean Corpuscular Hemoglobin 26.3 pg (27.0-33.0); Mean Corpuscular Volume 86.2 fL (80.0-98.0); Mean Platelet Volume 8.9 fL (9.4-12.4); Monocytes Absolute Auto 0.7 X10*3/uL (0.1-1.2); Monocytes Percent Auto 6.8 % (2-11); NRBC Pct Auto 0.2 /100WBC (0.0-0.2); Neutrophils Absolute Auto 4.8 x10*3/uL (2.0-8.3); Platelet Count 178 X10*3/uL (160-400); Red Blood Count 4.56 X10*6/uL (4.60-5.80); Red Cell Distribution Width 20.2 % (11.0-16.0)
[2023-05-25 09:28] LABS: Alanine Aminotransferase 29 U/L (0-40); Albumin Level 3.5 g/dL (3.5-5.0); Alkaline Phosphatase 60 U/L (39-117); Anion Gap 10 (12-20); Aspartate Amino Transferase 19 U/L (5-37); Bilirubin Total 0.6 mg/dL (0.0-1.0); Blood Urea Nitrogen 9 mg/dL (9-16); C Reactive Protein < 0.04 mg/dL (< or = 0.50); Calcium 9.8 mg/dL (8.4-10.2); Carbon Dioxide 27 mmol/L (22-29); Chloride 105 mmol/L (96-108); Estimated Glomerular Filt Rate > 60; Glucose Random 136 mg/dL (60-115); Potassium 3.4 mmol/L (3.3-5.1); Sodium 139 mmol/L (135-145); Total Protein 6.6 g/dL (6.5-8.0); Uric Acid 4.2 mg/dL (3.4-7.0)
[2023-05-25 09:37] LABS: Erythrocyte Sedimentation Rate 2 MM/HR (0-15)
== END 2023-05-25 08:13 | disposition home or self-care (01) ==
LOC: HO.LAB 08:12
PROVIDERS: PCP Family Medicine; Visit Provider Student in an Organized Health Care Education/Training Program
DX: M05.9 Rheumatoid arthritis with rheumatoid factor, unspecified (principal)
CPT/HCPCS: 36415; 80053; 84550; 85025; 85652; 86140

== ENCOUNTER 2023-05-27 08:47 | Outpatient (AMB) | payer OTHER, SELFPAY ==
--- NOTE | 2023-05-27 08:51 | A.OFFVIS_ITS ---
Intake Vital Signs 05/27/23 08:53 Height 5 ft 6 in Weight 175 lb BMI 28.2 BP 138/76 Blood Pressure Location Lt brachial Position Sitting Respiration 14 Pulse 62 Pulse Source Pulse Oximeter Temp 98.1 F Temp Source Temporal Artery Scan Pulse Oximetry (%) 99 Oxygen Delivery Method Room Air Intake Visit Reasons: RA/gout Sports Therapist Required: Yes Sports Therapist Name: Luigi [id number] Allergies lisinopril [LISINOPRIL] Allergy (Severe, Verified 05/27/23 08:56) Angioedema LAITH Inhibitors Adverse Reaction (Severe, Verified 05/27/23 08:56) Angioedema Medication List - Last Reconciled 05/27/23 by Minnie Santillan MD acetaminophen (Tylenol Extra Strength) 500 mg PO Q6H PRN albuterol sulfate 90 mcg/actuation 2 puffs inhalation Q4H PRN alendronate 70 mg PO QWEEK amlodipine 5 mg PO DAILY 90 days atorvastatin 40 mg PO BEDTIME carvedilol 6.25 mg PO BID 90 days cefuroxime axetil 250 mg PO BID cholecalciferol (vitamin D3) 25 mcg PO DAILY dicyclomine 10 mg PO QID PRN docusate sodium (Colace) 100 mg PO BID fluticasone propionate 220 mcg/actuation 2 puffs inhalation BID folic acid 1 mg PO QAM lidocaine 5% (Lidoderm) 1 patch topical DAILY PRN MDD remove after 12 hours loteprednol etabonate 0.5% 1 drp ophthalmic (eye) TID melatonin 3 mg PO BEDTIME PRN methotrexate (PF) (Rasuvo (PF)) 25 mg (0.5 mL) subcut QWEEK olopatadine 0.1% 1 drp ophthalmic (eye) QID omeprazole 20 mg PO QAM oxycodone 5 mg PO Q12H PRN polyethylene glycol 3350 (Miralax) 17 grams PO DAILY PRN prednisone 4 daily for 3 days, 3 daily for 3 days, 2 daily for 3 days, then one daily for 3 days sennosides 17.2 mg PO BEDTIME PRN tocilizumab (Actemra ACTPen) 162 mg (0.9 mL) subcut Q2W umeclidinium 62.5 mcg/actuation (Incruse Ellipta) 1 inh inhalation BEDTIME HPI HPI Comments History of Present Illness Details 77yoM presents for follow up seropositive rheumatoid arthritis (RF++ CCP++) who presents for follow-up. 1-2 weeks ago he started having pain and swelling of his ankles. He started a prednisone taper with resolution of his symptoms. He is currently on prednisone 10 mg daily. Compliant with his other meds. 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5 Cigarettes Per Day: 10 Years Smoked: 60 +/- e-Cigarette/Vaping Use: Never Used Current occupational status: retired Current occupation: Rt handed Gender identity: Male Review of Systems Musc Denies arthralgias, Denies joint swelling, Denies limited range of motion and Denies stiffness Physical Exam Vital Signs: Last Vital Signs Temp 98.1 F 05/27/23 08:53 Pulse 62 05/27/23 08:53 Resp 14 05/27/23 08:53 BP 138/76 05/27/23 08:53 Pulse Ox 99 05/27/23 08:53 Oxygen Delivery Method Room Air 05/27/23 08:53 BMI result Body Mass Index 28.2 Const General: cooperative, healthy appearing and acute distress moderate Nutritional Appearance: average body habitus Orientation/consciousness: patient oriented x3 Limitations: ambulation with cane HEENT Head: Yes normocephalic and Yes atraumatic Resp Effort & Inspection: normal respiratory effort and able to speak in complete sentences Cardio Rhythm: regular rhythm Skin General skin exam: no rashes or lesions noted Neuro General: patient oriented x3 Extrem Other: Unchanged Swelling of his right wrist ulnar styloid without tenderness or limitation of movement Normal range of motion of both shoulders No active synovitis Negative MCP and MTP squeeze test bilaterally Assessment & Plan Assessment & Plan (1) Seropositive rheumatoid arthritis: Comment: Plaquenil - June 2016- July 2020 Oral methotrexate 2017, GI upset Arava- July 2018- November 2018, ineffective Xeljanz- June 2018- November 2018, unclear what happened Sulfasalazine- November 2018- July 2020 Rasuvo- March 2020- present Humira -August 2021- August 2022 (secondary nonresponse) Actemra September 2022 Prednisone throughout Code(s): M05.9 - Rheumatoid arthritis with rheumatoid factor, unspecified Plan: Seropositive rheumatoid arthritis (RF++ CCP++) recent flare well controlled with prednisone taper. No active synovitis on exam today. Continue Rasuvo 25 mg weekly + Actemra every other week. Keep prednisone 10 mg daily until next visit. Will consider further tapering next visit Chest CTA 10/2022 showed no evidence of ILD T-spot and Hepatitis panel -ve 2020,. 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 Advised on the risk factor of steroids including but not limited to gastric irritation, elevated blood pressure, elevated blood sugar, weight gain, osteoporosis, risk of GI hemorrhage, cushingoid features. Patient was advised to follow-up with her PCP routinely regarding monitoring blood pressure and blood sugar as well as to take an OTC proton pump inhibitor to prevent gastric irritation. (3) Osteoporosis: Code(s): M81.0 - Age-related osteoporosis without current pathological fracture Qualifiers: Osteoporosis type: age-related Presence of current pathological fracture: without current pathological fracture Qualified Code(s): M81.0 - Age- related osteoporosis without current pathological fracture Plan: DEXA from November 2019 with osteopenia but high FRAX score. Patient started on Fosamax in November 2019, tolerating medications. His repeat DEXA scan in 2021 shows mild insignificant improvement.?This was stopped sometime this year in preparation for his dental implants. Patient already has his dental implants. Fosamax restarted 09/2022. Will repeat DEXA in the fall of 2023 (4) Tobacco abuse disorder: Code(s): Z72.0 - Tobacco use Plan: Patient has been smoking since age 16. Currently he smokes half a pack a day. He denies any respiratory symptoms. 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 Patient fully aware. Advised patient to seek medical care vance if patient has an infection and advised patient to stop the medication until the infection is resolved.? Side effects of methotrexate were discussed with the patient in detail including oral ulcers, elevated LFTs, abdominal discomfort, and possible pancytopenia is. Will monitor patient for side effects with frequent lab work. Advised patient to take folic acid daily to prevent complications of methotrexate. Plan I spent 26 minutes reviewing patient's chart, evaluating patient, ordering diagnostic workup, counseling patient and documenting in the chart Orders: Orders Comprehensive Met. Panel 3 Months M05.9 - Rheumatoid arthritis with rheumatoid factor, unspecified C Reactive Protein 3 Months M05.9 - Rheumatoid arthritis with rheumatoid factor, unspecified Complete Blood Count Auto Diff 3 Months M05.9 - Rheumatoid arthritis with rheumatoid factor, unspecified Erythrocyte Sedimentation Rate 3 Months M05.9 - Rheumatoid arthritis with rheumatoid factor, unspecified Uric Acid 3 Months M10.9 - Gout, unspecified Medications: Changed From prednisone 4 daily for 3 days, 3 daily for 3 days, 2 daily for 3 days, then one daily for 3 days 30 tabs 0RF M10.09 - Idiopathic gout, multiple sites To prednisone 10 mg PO DAILY 90 tabs 0RF M10.09 - Idiopathic gout, multiple sites Coding Level of Care Code Est Pt Level 4 (48247) Diagnoses Seropositive rheumatoid arthritis 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
[2023-05-27 08:53] VITALS: BP 138/76; PULSE 62; RESP 14; TEMP 36.7; O2SAT 99; BMI 28.2
== END 2023-05-27 09:31 | disposition home or self-care (01) ==
PROVIDERS: PCP Family Medicine; Visit Provider Student in an Organized Health Care Education/Training Program
DX: M05.79 Rheumatoid arthritis with rheumatoid factor of multiple sites without organ or systems involvement (principal); M81.0 Age-related osteoporosis without current pathological fracture; Z79.899 Other long term (current) drug therapy
CPT/HCPCS: 99214

== ENCOUNTER → 2023-05-27 08:47 | Outpatient (BNVA) | payer OTHER, SELFPAY | PROVIDERS: Visit Provider Student in an Organized Health Care Education/Training Program | DX: M05.9 Rheumatoid arthritis with rheumatoid factor, unspecified (principal); M81.0 Age-related osteoporosis without current pathological fracture; Z79.52 Long term (current) use of systemic steroids; Z72.0 Tobacco use; Z51.81 Encounter for therapeutic drug level monitoring; Z79.899 Other long term (current) drug therapy | CPT/HCPCS: 99212 ==

== ENCOUNTER 2023-06-09 09:43 | Outpatient (AMB) | payer OTHER, SELFPAY ==
--- NOTE | 2023-06-09 09:46 | MHC.OFFVIS ---
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 Operator Required: Yes Dumper Bailer Operator Language: Emr Implementation Specialist Name: Minnie Information Interpreted: non-clinical & clinical Accompanied by: Self / Same As Patient Allergies lisinopril [LISINOPRIL] Allergy (Severe, Verified 06/09/23 10:02) Angioedema LAITH Inhibitors Adverse Reaction (Severe, Verified 06/09/23 10:02) Angioedema Medication List - Last Reconciled 06/09/23 by Fantasma Neves MD acetaminophen (Tylenol Extra Strength) 500 mg PO Q6H PRN albuterol sulfate 90 mcg/actuation 2 puffs inhalation Q4H PRN alendronate 70 mg PO QWEEK amlodipine 5 mg PO DAILY 90 days atorvastatin 40 mg PO BEDTIME carvedilol 6.25 mg PO BID 90 days cefuroxime axetil 250 mg PO BID cholecalciferol (vitamin D3) 25 mcg PO DAILY dicyclomine 10 mg PO QID PRN docusate sodium (Colace) 100 mg PO BID fluticasone propionate 220 mcg/actuation 2 puffs inhalation BID folic acid 1 mg PO QAM lidocaine 5% (Lidoderm) 1 patch topical DAILY PRN MDD remove after 12 hours loteprednol etabonate 0.5% 1 drp ophthalmic (eye) TID melatonin 3 mg PO BEDTIME PRN methotrexate (PF) (Rasuvo (PF)) 25 mg (0.5 mL) subcut QWEEK olopatadine 0.1% 1 drp ophthalmic (eye) QID omeprazole 20 mg PO QAM oxycodone 5 mg PO Q12H PRN polyethylene glycol 3350 (Miralax) 17 grams PO DAILY PRN prednisone 10 mg PO DAILY sennosides 17.2 mg PO BEDTIME PRN tocilizumab (Actemra ACTPen) 162 mg (0.9 mL) subcut Q2W umeclidinium 62.5 mcg/actuation (Incruse Ellipta) 1 inh inhalation BEDTIME HPI Umbilical abscess HPI Details 77 year old male referred for an umbilical abscess. He says that he had noticed some scanty drainage on the area along with some pain about a month ago. He says he went to the ER at some point because of this. He says that he was prescribed antibiotics. He says the area may have dried up already. He denies any GI complaints He does have a history of skin abscess in various areas of his body. He also has history of hernia repair on the umbilicus with a mesh in 2019. 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5 Cigarettes Per Day: 10 Years Smoked: 60 +/- e-Cigarette/Vaping Use: Never Used Current occupational status: retired Current occupation: Rt handed Gender identity: Male Review of Systems Const Denies chills and Denies fever(s) Resp Denies cough GI Denies abdominal pain Denies difficulty urinating Musc Details: Describes pain on both feet and swelling, difficulty with movement and walking Reports abnormal gait and Reports limited range of motion Neuro Reports abnormal gait Physical Exam Vital Signs: Last Vital Signs BP 140/74 H 06/09/23 09:56 Const General: comfortable and no acute distress Orientation/consciousness: patient oriented x3 Neck Neck: Yes no lymphadenopathy Resp Auscultation: clear to auscultation bilaterally Cardio Rhythm: regular rhythm GI Other: No fluctuant area on the umbilicus, no cellulitis, no recurrent hernia although there is note of crusting within the umbilicus along with what appears to be an old non absorbable stitch with a knot Palpation (GI): Soft to palpation, nontender and no guarding Neuro General: patient oriented x3 Assessment & Plan Assessment & Plan (1) Abscess, umbilical: Code(s): L02.216 - Cutaneous abscess of umbilicus Plan: He apparently had drainage on the umbilicus along with pain and he had been on antibiotics. This seems to have dried up Examination shows a not absorbable stitch along with a large knot. I was able to cut this with scissors and removed this. He may have had a suture granuloma from this. I told him that he can change his bandage every day. I can see him in the office in about a month to see how this is healing. There is no drainable abscess or any if drainage at this time. Coding Level of Care Code Est Pt Level 3 (70480) Diagnoses Abscess, umbilical L02.216
[2023-06-09 09:56] VITALS: BP 140/74
== END 2023-06-09 10:04 | disposition home or self-care (01) ==
PROVIDERS: PCP Family Medicine; Referring Provider Internal Medicine; Visit Provider Surgery
DX: L02.216 Cutaneous abscess of umbilicus (principal)
CPT/HCPCS: 99213

== ENCOUNTER → 2023-06-09 09:43 | Outpatient (BNVA) | payer OTHER, SELFPAY | PROVIDERS: PCP Family Medicine; Referring Provider Internal Medicine; Visit Provider Surgery | DX: Z18.89 Other specified retained foreign body fragments (principal); L98.8 Other specified disorders of the skin and subcutaneous tissue | CPT/HCPCS: 99212 ==

== ENCOUNTER 2023-06-17 08:43 | Outpatient (REF) | payer OTHER, SELFPAY ==
[2023-06-17 11:11] LABS: MANUAL DIFF FLAG NO
[2023-06-17 11:34] LABS: Basophils Percent Auto 0.3 % (0-2); Eosinophils Absolute Auto 0.2 X10*3/uL (0.0-0.4); Eosinophils Percent Auto 2.4 % (0-4); Hematocrit 39.9 % (42.0-52.0); Hemoglobin 12.2 g/dl (14.0-18.0); Imm Gran Abs Auto 0.06 X10*3/uL (0.00-0.03); Imm Gran Pct Auto 0.6 % (0.0-0.4); Lymphocytes Absolute Auto 3.6 X10*3/uL (1.2-4.9); Lymphocytes Percent Auto 36.6 % (20-40); Mean Corpuscular HGB Conc 30.6 g/dl (31.0-36.0); Mean Corpuscular Hemoglobin 26.8 pg (27.0-33.0); Mean Corpuscular Volume 87.7 fL (80.0-98.0); Mean Platelet Volume 10.3 fL (9.4-12.4); Monocytes Absolute Auto 0.9 X10*3/uL (0.1-1.2); Monocytes Percent Auto 9.3 % (2-11); Neutrophils Absolute Auto 4.9 x10*3/uL (2.0-8.3); Neutrophils Percent Auto 50.8 % (45-73); Platelet Count 198 X10*3/uL (160-400); Red Blood Count 4.55 X10*6/uL (4.60-5.80); White Blood Count 9.7 X10*3/uL (4.8-10.8)
[2023-06-17 11:58] LABS: Alanine Aminotransferase 26 U/L (0-40); Albumin Level 4.4 g/dL (3.5-5.0); Alkaline Phosphatase 74 U/L (39-117); Anion Gap 13 (12-20); Aspartate Amino Transferase 18 U/L (5-37); Bilirubin Direct 0.3 mg/dL (0.0-0.5); Bilirubin Total 0.7 mg/dL (0.0-1.0); Blood Urea Nitrogen 9 mg/dL (9-16); Calcium 9.7 mg/dL (8.4-10.2); Carbon Dioxide 27 mmol/L (22-29); Chloride 107 mmol/L (96-108); Cholesterol 155 mg/dL; Estimated Glomerular Filt Rate > 60; Glucose Random 98 mg/dL (60-115); HDL Cholesterol 55 mg/dL; LDL Cholesterol Calculated 67 mg/dl; Potassium 3.8 mmol/L (3.3-5.1); Sodium 143 mmol/L (135-145); Total Protein 6.9 g/dL (6.5-8.0); Triglycerides 166 mg/dL
[2023-06-17 12:13] LABS: Vitamin B12 502 pg/mL (200-900)
[2023-06-17 12:16] LABS: Ferritin 18 ng/mL (20-250)
[2023-06-17 13:10] LABS: Creatinine Urine 35.17 mg/dL
== END 2023-06-17 08:44 | disposition home or self-care (01) ==
LOC: HO.HHCL 08:43
PROVIDERS: Visit Provider Family Medicine
DX: D64.9 Anemia, unspecified (principal); E78.5 Hyperlipidemia, unspecified; E11.9 Type 2 diabetes mellitus without complications
CPT/HCPCS: 36415; 80048; 80061; 80076; 82043; 82607; 82728; 85025

== ENCOUNTER 2023-07-07 09:15 | Outpatient (AMB) | payer OTHER, SELFPAY ==
[2023-07-07 09:16] VITALS: BP 142/68; PULSE 77
--- NOTE | 2023-07-07 09:16 | MHC.OFFVIS ---
Intake Vital Signs 07/07/23 09:16 Height 5 ft 6 in BP 142/68 H Blood Pressure Location Lt brachial Position Sitting Pulse 77 Intake Visit Reasons: one month follow-up umbilical abscess Intake Note: This patient presents for a one month follow-up assessment for umbilical abscess. Patient c/o; reports no redness or drainage at this time. Flat Examiner Required: Yes Flat Examiner Language: Safety And Skill Based Pay Manager Name: Minnie Information Interpreted: non-clinical & clinical Accompanied by: Self / Same As Patient Allergies lisinopril [LISINOPRIL] Allergy (Severe, Verified 07/07/23 09:17) Angioedema LAITH Inhibitors Adverse Reaction (Severe, Verified 07/07/23 09:17) Angioedema Medication List - Last Reconciled 07/07/23 by Fantasma Neves MD acetaminophen (Tylenol Extra Strength) 500 mg PO Q6H PRN albuterol sulfate 90 mcg/actuation 2 puffs inhalation Q4H PRN alendronate 70 mg PO QWEEK amlodipine 5 mg PO DAILY 90 days atorvastatin 40 mg PO BEDTIME carvedilol 6.25 mg PO BID 90 days cefuroxime axetil 250 mg PO BID cholecalciferol (vitamin D3) 25 mcg PO DAILY dicyclomine 10 mg PO QID PRN docusate sodium (Colace) 100 mg PO BID fluticasone propionate 220 mcg/actuation 2 puffs inhalation BID folic acid 1 mg PO QAM lidocaine 5% (Lidoderm) 1 patch topical DAILY PRN MDD remove after 12 hours loteprednol etabonate 0.5% 1 drp ophthalmic (eye) TID melatonin 3 mg PO BEDTIME PRN methotrexate (PF) (Rasuvo (PF)) 25 mg (0.5 mL) subcut QWEEK olopatadine 0.1% 1 drp ophthalmic (eye) QID omeprazole 20 mg PO QAM oxycodone 5 mg PO Q12H PRN polyethylene glycol 3350 (Miralax) 17 grams PO DAILY PRN prednisone 10 mg PO DAILY sennosides 17.2 mg PO BEDTIME PRN tocilizumab (Actemra ACTPen) 162 mg (0.9 mL) subcut Q2W umeclidinium 62.5 mcg/actuation (Incruse Ellipta) 1 inh inhalation BEDTIME HPI one month follow-up umbilical abscess HPI Details He is here for follow-up for umbilical discharge. I had seen him last month and was noted to have what appeared to be a suture granuloma. I had cut a stitch that was sticking out from his umbilicus from a previous umbilical hernia repair in 2019. He says that this umbilical discharge and redness had resolved. He denies any complaints with this at this time. [facility] Medical History Abscess Abscess, umbilical Arthritis Ascending aorta dilation Asthma COPD (chronic obstructive pulmonary disease) Epidermal inclusion cyst GERD (gastroesophageal reflux disease) History of prostate cancer HTN (hypertension) long-term systemic steroid user Osteoporosis Seropositive rheumatoid arthritis Surgical History History of arthroscopy of left shoulder History of back surgery History of colonoscopy History of open reduction and internal fixation (ORIF) procedure History of prostate surgery History of removal of cyst History of tonsillectomy and adenoidectomy Hx of eye surgery Hx of umbilical hernia repair Family History Mother History of breast cancer, Onset Age: 87 Father History of asthma Social History Alcohol intake: never Patient Tobacco Use Status: Current everyday Tobacco user Tobacco use type: Cigarette Cigarette Packs Per Day: 0.5 Cigarettes Per Day: 10 Years Smoked: 60 +/- e-Cigarette/Vaping Use: Never Used Current occupational status: retired Current occupation: [employer] Gender identity: Male Review of Systems Const Denies chills and Denies fever(s) Card Denies chest pain, Denies dyspnea and Reports dyspnea on exertion Resp Denies cough, Denies dyspnea and Reports dyspnea on exertion GI Denies hematochezia and Denies change in bowel habits Denies hematuria and Denies difficulty urinating Musc Reports back pain, Reports myalgias, Reports arthralgias and Reports limited range of motion Neuro Denies focal weakness and Denies convulsions Psych Denies depression and Denies mood swings Physical Exam Const General: comfortable and no acute distress Orientation/consciousness: patient oriented x3 Neck Neck: Yes no lymphadenopathy Resp Auscultation: clear to auscultation bilaterally Cardio Rhythm: regular rhythm GI Other: No redness, no drainage, no induration on the umbilicus Palpation (GI): Soft to palpation, nontender and no guarding Neuro General: patient oriented x3 Assessment & Plan Assessment & Plan (1) Abscess, umbilical: Code(s): L02.216 - Cutaneous abscess of umbilicus Plan: The redness and discharge have resolved. He feels well and denies any problems with this umbilicus at this time. He does have multiple medical problems including severe arthritis. He can follow up on a p.r.n. basis. Coding Level of Care Code Est Pt Level 2 (05599) Diagnoses Abscess, umbilical L02.216
== END 2023-07-07 09:26 | disposition home or self-care (01) ==
PROVIDERS: PCP Family Medicine; Visit Provider Surgery
DX: L02.216 Cutaneous abscess of umbilicus (principal)
CPT/HCPCS: 99212

== ENCOUNTER → 2023-07-07 09:15 | Outpatient (BNVA) | payer OTHER, SELFPAY | PROVIDERS: PCP Family Medicine; Visit Provider Surgery | DX: Z48.817 Encounter for surgical aftercare following surgery on the skin and subcutaneous tissue (principal); Z87.2 Personal history of diseases of the skin and subcutaneous tissue | CPT/HCPCS: 99212 ==

== ENCOUNTER 2023-08-11 08:24 | Outpatient (REF) | payer OTHER, SELFPAY | END 2023-08-11 08:25 | disposition home or self-care (01) | LOC: HO.LAB 08:24 | PROVIDERS: PCP Family Medicine; Visit Provider Student in an Organized Health Care Education/Training Program | DX: M05.9 Rheumatoid arthritis with rheumatoid factor, unspecified (principal); M10.9 Gout, unspecified | CPT/HCPCS: 36415; 80053; 84550; 85025; 85652; 86140 ==

== ENCOUNTER 2023-08-12 10:10 | Outpatient (AMB) | payer OTHER, SELFPAY ==
[2023-08-12 10:18] VITALS: BP 116/74; PULSE 65; TEMP 36.3; O2SAT 95; BMI 28.9
--- NOTE | 2023-08-12 10:18 | MHC.OFFVIS ---
Intake Vital Signs 08/12/23 10:18 Height 5 ft 6 in Weight 178 lb 12.718 oz BMI 28.9 BP 116/74 Blood Pressure Location Rt brachial Position Sitting Pulse 65 Pulse Source Pulse Oximeter Temp 97.3 F Temp Source Skin Pulse Oximetry (%) 95 Oxygen Delivery Method Room Air Intake Visit Reasons: RA Intake Note: Pt seen today for RA follow up and test results. c/o francine wrist pain and swelling Loan Underwriter Required: Yes Loan Underwriter Language: Forging Operator Name: Philly Aguilarfrancisco COOL Information Interpreted: clinical only Accompanied by: Self / Same As Patient Allergies lisinopril [LISINOPRIL] Allergy (Severe, Verified 08/12/23 10:24) Angioedema LAITH Inhibitors Adverse Reaction (Severe, Verified 08/12/23 10:24) Angioedema Medication List - Last Reconciled 08/12/23 by Minnie Santillan MD acetaminophen (Tylenol Extra Strength) 500 mg PO Q6H PRN albuterol sulfate 90 mcg/actuation 2 puffs inhalation Q4H PRN alendronate 70 mg PO QWEEK amlodipine 5 mg PO DAILY 90 days atorvastatin 40 mg PO BEDTIME carvedilol 6.25 mg PO BID 90 days cefuroxime axetil 250 mg PO BID cholecalciferol (vitamin D3) 25 mcg PO DAILY dicyclomine 10 mg PO QID PRN docusate sodium (Colace) 100 mg PO BID fluticasone propionate 220 mcg/actuation 2 puffs inhalation BID folic acid 1 mg PO QAM lidocaine 5% (Lidoderm) 1 patch topical DAILY PRN MDD remove after 12 hours loteprednol etabonate 0.5% 1 drp ophthalmic (eye) TID melatonin 3 mg PO BEDTIME PRN metformin ER 500 mg PO DAILY methotrexate (PF) (Rasuvo (PF)) 25 mg (0.5 mL) subcut QWEEK olopatadine 0.1% 1 drp ophthalmic (eye) QID omeprazole 20 mg PO QAM oxycodone 5 mg PO Q12H PRN polyethylene glycol 3350 (Miralax) 17 grams PO DAILY PRN prednisone 10 mg PO DAILY sennosides 17.2 mg PO BEDTIME PRN tocilizumab (Actemra ACTPen) 162 mg (0.9 mL) subcut Q2W umeclidinium 62.5 mcg/actuation (Incruse Ellipta) 1 inh inhalation BEDTIME HPI HPI Comments History of Present Illness Details 77yoM presents for follow up seropositive rheumatoid arthritis (RF++ CCP++) who presents for follow-up. On Rasuvo 25 mg every week and Actemra 162 mg every other week. On prednisone 10 mg daily. States that last week he had 4 days of bilateral wrist pain and swelling that self-resolved. He did not increase the prednisone dose. 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 Osteoporosis Seropositive rheumatoid arthritis History of prostate cancer Arthritis GERD (gastroesophageal reflux disease) COPD (chronic obstructive pulmonary disease) Asthma HTN (hypertension) Surgical History History of open reduction and internal fixation (ORIF) procedure Hx of umbilical hernia repair Hx of eye surgery History of back surgery History of colonoscopy History of removal of cyst History of tonsillectomy and adenoidectomy History of arthroscopy of left shoulder History of prostate surgery Family History Mother History of breast cancer, Onset Age: 87 Father History of asthma Social History Alcohol intake: never Patient Tobacco Use Status: Current everyday Tobacco user Tobacco use type: Cigarette Cigarettes Per Day: 7 Years Smoked: 60 +/- e-Cigarette/Vaping Use: Never Used Current occupational status: retired Current occupation: Rt handed Gender identity: Male Review of Systems [facility] Denies arthralgias, Denies joint swelling, Denies limited range of motion and Denies stiffness Physical Exam Vital Signs: Last Vital Signs Temp 97.3 F 08/12/23 10:18 Pulse 65 08/12/23 10:18 BP 116/74 08/12/23 10:18 Pulse Ox 95 08/12/23 10:18 Oxygen Delivery Method Room Air 08/12/23 10:18 BMI result Body Mass Index 28.9 Const Other: Highly cushingoid General: cooperative, healthy appearing and comfortable Nutritional Appearance: average body habitus Orientation/consciousness: patient oriented x3 Limitations: ambulation with cane HEENT Head: Yes normocephalic and Yes atraumatic Resp Effort & Inspection: normal respiratory effort and able to speak in complete sentences Cardio Rhythm: regular rhythm Skin General skin exam: no rashes or lesions noted Neuro General: patient oriented x3 Extrem Other: Unchanged Swelling of his right wrist ulnar styloid without tenderness or limitation of movement Normal range of motion of both shoulders No active synovitis Negative MCP and MTP squeeze test bilaterally Bilateral lower limb pitting edema Assessment & Plan Assessment & Plan (1) Seropositive rheumatoid arthritis: Comment: ++RF++CCP Plaquenil - June 2016- July 2020 Oral methotrexate 2017, GI upset Arava- July 2018- November 2018, ineffective Xeljanz- June 2018- November 2018, unclear what happened Sulfasalazine- November 2018- July 2020 Rasuvo- March 2020- present Humira -August 2021- August 2022 (secondary nonresponse) Actemra September 2022 effective Prednisone throughout Code(s): M05.9 - Rheumatoid arthritis with rheumatoid factor, unspecified Plan: This is a 77-year-old male with seropositive RA who presents for follow up. On Actemra 162 mg every other week, Rasuvo 25 mg subcutaneously once weekly and prednisone 10 mg daily. On exam today patient is doing well with no active synovitis. States however that last week he was having bilateral wrist pain and swelling that self-resolved. Continue Rasuvo 25 mg weekly + Actemra every other week. Reduce prednisone to 7.5 mg daily for 1 month then remain on 5 mg daily. If patient gets recurrent joint pain and swelling, will consider adding other CsDMARDs Chest CTA 10/2022 showed no evidence of ILD T-spot and Hepatitis panel -ve 2020,. Labs before next visit in 3 months (2) intermediate systemic steroid user: Code(s): Z79.52 - terminal make up operator (current) use of systemic steroids Plan: Patient on long-term steroid therapy. Advised on the risk factor of steroids including but not limited to gastric irritation, elevated blood pressure, elevated blood sugar, weight gain, osteoporosis, risk of GI hemorrhage, cushingoid features. Patient was advised to follow-up with her PCP routinely regarding monitoring blood pressure and blood sugar as well as to take an OTC proton pump inhibitor to prevent gastric irritation. (3) Osteoporosis: Code(s): M81.0 - Age-related osteoporosis without current pathological fracture Qualifiers: Osteoporosis type: age-related Presence of current pathological fracture: without current pathological fracture Qualified Code(s): M81.0 - Age-related osteoporosis without current pathological fracture Plan: DEXA from November 2019 with osteopenia but high FRAX score. Patient started on Fosamax in November 2019, tolerating medications. His repeat DEXA scan in 2021 shows mild insignificant improvement.?This was stopped sometime this year in preparation for his dental implants. Patient already has his dental implants. Fosamax restarted 09/2022. Will repeat DEXA in the fall of 2023 (4) Tobacco abuse disorder: Code(s): Z72.0 - Tobacco use Plan: Patient has been smoking since age 16. Currently he smokes half a pack a day. He denies any respiratory symptoms. Chest CTA showed no evidence of lung nodules or fibrosis. I discussed with patient the association of smoking with high rheumatoid arthritis disease activity. Patient continues to smoke (5) Encounter for monitoring tocilizumab therapy: Code(s): Z51.81 - Encounter for therapeutic drug level monitoring; Z79.899 - Other prison (current) drug therapy Plan: Side effects of tocilizumab were discussed with the patient in detail including increased risk of infection, ?possible increased risk of solid and skin tumors. Patient fully aware. Advised patient to seek medical care vance if patient has an infection and advised patient to stop the medication until the infection is resolved.? Side effects of methotrexate were discussed with the patient in detail including oral ulcers, elevated LFTs, abdominal discomfort, and possible pancytopenia is. Will monitor patient for side effects with frequent lab work. Advised patient to take folic acid daily to prevent complications of methotrexate. (6) Immunization counseling: Code(s): Z71.85 - Encounter for immunization safety counseling Plan: Advised patient to get the new COVID booster and flu vaccines for this season. Advised patient to hold Rasuvo 1 dose after vaccination and continue Actemra throughout Plan I spent 38 minutes reviewing patient's chart, evaluating patient, ordering diagnostic workup, counseling patient and documenting in the chart Orders: Orders Complete Blood Count Auto Diff 3 Months M05.9 - Rheumatoid arthritis with rheumatoid factor, unspecified Hepatitis A,B,C Profile 3 Months Z11.59 - Encounter for screening for other viral diseases C Reactive Protein 3 Months M05.9 - Rheumatoid arthritis with rheumatoid factor, unspecified Comprehensive Met. 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
== END 2023-08-12 10:48 | disposition home or self-care (01) ==
PROVIDERS: PCP Family Medicine; Visit Provider Student in an Organized Health Care Education/Training Program
DX: M05.79 Rheumatoid arthritis with rheumatoid factor of multiple sites without organ or systems involvement (principal); Z79.52 Long term (current) use of systemic steroids; M81.0 Age-related osteoporosis without current pathological fracture; Z51.81 Encounter for therapeutic drug level monitoring; Z79.899 Other long term (current) drug therapy
CPT/HCPCS: 99214

== ENCOUNTER → 2023-08-12 10:10 | Outpatient (BNVA) | payer OTHER, SELFPAY | PROVIDERS: PCP Family Medicine; Visit Provider Student in an Organized Health Care Education/Training Program | DX: M05.9 Rheumatoid arthritis with rheumatoid factor, unspecified (principal); M81.0 Age-related osteoporosis without current pathological fracture; F17.210 Nicotine dependence, cigarettes, uncomplicated; Z79.52 Long term (current) use of systemic steroids; Z79.899 Other long term (current) drug therapy | CPT/HCPCS: 99212 ==

== ENCOUNTER → 2023-08-25 09:24 | Outpatient (REF) | payer OTHER, SELFPAY ==
--- NOTE | 2023-08-25 09:28 | CA_ITS ---
Transthoracic Echocardiogram Patient (Last, First, Middle): Patrice Jenkins, Gender: Male Date of : 1945 Age: 77 Procedure Date: 08/25/2023 Procedure Type: Transthoracic Echocardiogram Location: OP Height: 167.64 cm Weight: 80.74 kg BSA: 1.90 m2 Heart Rate: bpm BP: 136 / 67 mmHg Caustic Room Operator: MARIO ALBERTO Referring MD: Sharon Guardado LIME KILN TENDER-C Aprn: Washington Silver MD Symptoms: I77.810 - Thoracic aortic ectasia Study Quality: Fair ECG Rhythm: Sinus Conclusions: - 1. Normal LV ejection fraction of 60 65% with mild LVH with impaired relaxation filling pattern 2. Fibrocalcific aortic valve changes noted 3. Moderately dilated ascending aorta at 4.6 cm 4. Normal RV systolic pressure 5. No gross pericardial effusion Findings Left Ventricle Normal left ventricular size and systolic function. There is mildly increased left ventricular wall thickness. The visually estimated ejection fraction is between 60-65%. Spectral Doppler is indicative of an impaired relaxation filling pattern. E/E prime ratio is between 8 and 15 consistent with indeterminate filling pressures. Right Ventricle Normal right ventricular cavity size and systolic function. Atria The left atrium is normal in size. Interatrial shunt cannot be excluded. The right atrium is normal in size. Aortic Valve The aortic valve was not well visualized. There is mild calcification of the aortic valve. There is no aortic valve stenosis. There is no aortic valve regurgitation. Mitral Valve The mitral valve was not well visualized. There is trace mitral valve regurgitation. There is no mitral valve stenosis. Pulmonic Valve The pulmonic valve was not well visualized. Tricuspid Valve Likely normal tricuspid valve structure and function. There is trace tricuspid valve regurgitation. The right ventricular systolic pressure is normal. The right ventricular systolic pressure is 20 mmHg. Normal right atrial pressure. There is no evidence of pulmonary hypertension. Great Vessels The pulmonary artery was not well visualized. There is moderate dilatation of the ascending aorta measuring 4.60 cm. Venous The inferior vena cava is normal in size and collapses greater than 50% with inspiration. Pericardium/Pleural There is no evidence of pericardial effusion. Prior Study Comparison No significant change compared to prior study dated: 08/28/2022. Measurements 2D Linear Measurements IVSd: 1.30 0.6-0.9/0.6-1.0 cm LVIDd: 4.34 3.9-5.3/4.2-5.9 cm LVIDd Index: 2.28 2.4-3.2/2.2-3.1 cm/m2 LVIDs: 2.84 2.0-3.6 cm LVPWd: 1.12 0.7-1.1 cm LA Diam: 2.50 2.7-3.8/3.0-4.0 cm LAIDs Index: 1.32 1.5-2.3 cm/m2 LV Mass: 236.26 67-162/88-224 g LV Mass Index: 124.35 43-95/49-115 g/m2 LVOT Diam: 2.60 3.0+(-)1.3 cm 2D Systolic Function EF 4C: 61.80 >55% EF 2C: 61.60 >55% EF BiP: 61.90 >55% Mitral Valve MV Pk E: 0.59 MV PK A: 0.95 MV Decel Time: 334.00 E/A: 0.60 E'Lateral: 4.35 E'Medial: 3.05 E/E' Med: 19.40 E/E' Lat: 13.60 PHT: 98.00 MVA PHT: 2.24 Decel Yates: 1.77 Aortic Valve AoV Pk Aston: 2.07 AoV Mn Aston: 1.35 AoV VTI: 0.48 AoV Pk Grad: 17.00 Aov Mn Grad: 9.00 RANULFO Cont.VTI: 2.35 LVOT LVOT Pk Aston: 0.82 LVOT Mn Aston: 0.56 LVOT VTI: 0.21 LVOT Pk Grad: 3.00 LVOT Mn Grad: 1.00 LVOT Diam: 2.60 LVOT Area: 5.31 Diastolic Function MV Pk E: 0.59 MV Pk A: 0.95 E/A: 0.60 E'Medial: 3.05 E/E' Med: 19.40 E' Laterial: 4.35 E/E' Lat: 13.60 Right Ventricle TAPSE (mm): 22.10 TVS' Aston: 10.80 Tricuspid Valve TR Pk Aston: 2.08 TR Pk Grad: 17.00 RA Press: 3.00 RVSP: 20.00 Great Vessels Aorta Sinus of Valsalva: 4.40 2.0-3.5 cm Ao Asc: 4.60 2.1-3.4 cm Updated in Other Vendor System with Status of Final Washington Silver MD electronically signed on 08/25/2023 4:54:59 PM with status of Final
== END ==
LOC: HO.CARD 09:24
PROVIDERS: PCP Family Medicine; Visit Provider Nurse Practitioner Family
DX: I77.810 Thoracic aortic ectasia (principal); Q23.1 Congenital insufficiency of aortic valve
CPT/HCPCS: 93306

== ENCOUNTER → 2023-08-25 09:28 | Outpatient (BNV) | payer OTHER, SELFPAY | PROVIDERS: PCP Family Medicine; Visit Provider Internal Medicine Cardiovascular Disease | DX: I35.8 Other nonrheumatic aortic valve disorders (principal) | CPT/HCPCS: 93306 ==

== ENCOUNTER 2023-09-10 08:44 | Outpatient (AMB) | payer OTHER, SELFPAY ==
[2023-09-10 09:02] VITALS: BP 114/72; PULSE 70; BMI 28.0
--- NOTE | 2023-09-10 09:02 | MHC.OFFVIS ---
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 Shoes Required: No Allergies lisinopril [LISINOPRIL] Allergy (Severe, Verified 09/10/23 09:05) Angioedema LAITH Inhibitors Adverse Reaction (Severe, Verified 09/10/23 09:05) Angioedema Medication List - Last Reconciled 09/10/23 by DEBBIE Mckenzie acetaminophen (Tylenol Extra Strength) 500 mg PO Q6H PRN albuterol sulfate 90 mcg/actuation 2 puffs inhalation Q4H PRN alendronate 70 mg PO QWEEK amlodipine 5 mg PO DAILY 90 days atorvastatin 40 mg PO BEDTIME carvedilol 6.25 mg PO BID 90 days cholecalciferol (vitamin D3) 25 mcg PO DAILY dicyclomine 10 mg PO QID PRN docusate sodium (Colace) 100 mg PO BID fluticasone propionate 220 mcg/actuation 2 puffs inhalation BID folic acid 1 mg PO QAM loteprednol etabonate 0.5% 1 drp ophthalmic (eye) TID melatonin 3 mg PO BEDTIME PRN metformin ER 500 mg PO DAILY olopatadine 0.1% 1 drp ophthalmic (eye) QID omeprazole 20 mg PO QAM oxycodone 5 mg PO Q12H PRN polyethylene glycol 3350 (Miralax) 17 grams PO DAILY PRN prednisone Take 3 tabs by mouth once daily for 1 month, then remain on 2 tabs daily Rasuvo (PF) (methotrexate (PF)) 25 mg (0.5 mL) subcut QWEEK NS sennosides 17.2 mg PO BEDTIME PRN tocilizumab (Actemra ACTPen) 162 mg (0.9 mL) subcut Q2W umeclidinium 62.5 mcg/actuation (Incruse Ellipta) 1 inh inhalation BEDTIME HPI f/u after echo HPI Details Patrice is a 77-year-old male with past medical history of hypertension, smoking, rheumatoid arthritis, bicuspid aortic valve without stenosis or regurgitation, dilated ascending aorta presents for follow-up after recent echo. Today he reports that he has been feeling well since his last visit in December 2022. He denies having any chest discomfort at rest or with activity. No shortness of breath, palpitations, presyncope, syncope, PND, orthopnea or edema. He is taking his meds as directed. He says he does only light physical activity.. 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 Osteoporosis Seropositive rheumatoid arthritis History of prostate cancer Arthritis GERD (gastroesophageal reflux disease) COPD (chronic obstructive pulmonary disease) Asthma HTN (hypertension) Surgical History History of open reduction and internal fixation (ORIF) procedure Hx of umbilical hernia repair Hx of eye surgery History of back surgery History of colonoscopy History of removal of cyst History of tonsillectomy and adenoidectomy History of arthroscopy of left shoulder History of prostate surgery Family History Mother History of breast cancer, Onset Age: 87 Father History of asthma Social History Alcohol intake: never Patient Tobacco Use Status: Current everyday Tobacco user Tobacco use type: Cigarette Cigarettes Per Day: 7 Years Smoked: 60 +/- e-Cigarette/Vaping Use: Never Used Current occupational status: retired Current occupation: Rt handed Gender identity: Male Review of Systems Const All systems reviewed & are unremarkable except as noted in HPI and below ENT Denies dizziness Card Denies chest pain, Denies chest pain at rest, Denies chest pain with activity, Denies rapid heart rate, Denies pedal edema, Denies edema, Denies leg edema, Denies lightheadedness, Denies palpitations, Denies dyspnea, Denies dyspnea on exertion and Denies orthopnea Resp Denies cough, Denies dyspnea and Denies dyspnea on exertion GI Denies hematochezia and Denies change in stool character Musc Denies abnormal gait, Denies limited range of motion, Denies muscle cramps, Denies muscle weakness, Denies numbness, Denies radiating pain into limb, Denies stiffness and Denies tingling Neuro Denies abnormal gait, Denies dizziness, Denies numbness and Denies tingling Endo Denies palpitations Physical Exam Vital Signs: Last Vital Signs Pulse 70 09/10/23 09:02 BP 114/72 09/10/23 09:02 BMI result Body Mass Index 28.0 Const General: cooperative, healthy appearing, comfortable and no acute distress Orientation/consciousness: patient oriented x3 Neck Neck: Yes normal visual inspection Resp Effort & Inspection: normal respiratory effort Auscultation: clear to auscultation bilaterally, no crackles, no rales, no rhonchi and no wheezes Cardio Jugular venous distension: no JVD Rate: regular rate Rhythm: regular rhythm Heart sounds: S1 normal heart sound present, S2 normal heart sound present, no murmurs and no rubs Skin General skin exam: no rashes or lesions noted Neuro General: patient oriented x3 Extrem General: Yes normal to inspection and No no pedal edema Psych Appearance: grossly normal Mental Status: mental status grossly normal Speech and movement: Normal speech and movement present Assessment & Plan Assessment & Plan (1) Ascending aorta dilatation: Code(s): I77.810 - Thoracic aortic ectasia Plan: Hx of dilated ascending aorta. Echo done 08/28/22 shows moderate dilation of ascending aorta at 4.6 cm. He then had a CTA of chest showing sinus of valsalva dilated at 4.7 cm and ascending aorta dilated at 4.2 cm. Repeat echocardiogram done 08/25/2023 shows EF 60-65%, dilated ascending aorta 4.6 cm. Overall no change in the last year. Today he reports feeling well with no concerning symptoms. Instructed on no heavy lifting. BP well controlled. No med changes made today. Plan for repeat echo 1 yr from last. Cardiology follow-up after echo results are available (2) Bicuspid aortic valve: Code(s): Q23.1 - Congenital insufficiency of aortic valve Plan: Known hx of Bicuspid aortic valve without stenosis or regurgitation. Followed by echocardiograms. Last echo 08/25/2023 shows mild calcification of the aortic valve, no regurgitation or stenosis. Repeat echo as above (3) Edema of both ankles: Code(s): M25.471 - Effusion, right ankle; M25.472 - Effusion, left ankle Plan: Leg edema resolved with reduction in amlodipine dose. (4) HTN (hypertension): Code(s): I10 - Essential (primary) hypertension Plan: Well controlled at this time. Continue amlodipine and carvedilol. Orders: Orders CA echo transthoracic complete 11 Months I77.810 - Thoracic aortic ectasia, Q23.1 - Congenital insufficiency of aortic valve Coding Level of Care Code Est Pt Level 3 (69663) Diagnoses Ascending aorta dilatation I77.810 Bicuspid aortic valve Q23.1 Edema of both ankles M25.471; M25.472 HTN (hypertension) I10 Time Spent (min) 22
== END 2023-09-10 09:22 | disposition home or self-care (01) ==
PROVIDERS: PCP Family Medicine; Visit Provider Nurse Practitioner Family
DX: I77.810 Thoracic aortic ectasia (principal); Q23.1 Congenital insufficiency of aortic valve; M25.471 Effusion, right ankle; M25.472 Effusion, left ankle; I10 Essential (primary) hypertension
CPT/HCPCS: 99213

== ENCOUNTER → 2023-09-10 08:44 | Outpatient (BNVA) | payer OTHER, SELFPAY | PROVIDERS: PCP Family Medicine; Visit Provider Nurse Practitioner Family | DX: I77.810 Thoracic aortic ectasia (principal); I10 Essential (primary) hypertension; Q23.1 Congenital insufficiency of aortic valve; M25.471 Effusion, right ankle; M25.472 Effusion, left ankle | CPT/HCPCS: 99212 ==

== ENCOUNTER 2023-11-11 10:20 | Outpatient (REF) | payer OTHER, SELFPAY ==
[2023-11-11 10:40] LABS: MANUAL DIFF FLAG NO
[2023-11-11 11:02] LABS: Basophils Percent Auto 0.5 % (0-2); Eosinophils Absolute Auto 0.2 X10*3/uL (0.0-0.4); Eosinophils Percent Auto 2.4 % (0-4); Hematocrit 37.1 % (42.0-52.0); Hemoglobin 11.7 g/dl (14.0-18.0); Imm Gran Abs Auto 0.04 X10*3/uL (0.00-0.03); Imm Gran Pct Auto 0.5 % (0.0-0.4); Lymphocytes Absolute Auto 1.7 X10*3/uL (1.2-4.9); Lymphocytes Percent Auto 19.6 % (20-40); Mean Corpuscular HGB Conc 31.5 g/dl (31.0-36.0); Mean Corpuscular Hemoglobin 26.8 pg (27.0-33.0); Mean Corpuscular Volume 85.1 fL (80.0-98.0); Mean Platelet Volume 10.3 fL (9.4-12.4); Monocytes Absolute Auto 0.8 X10*3/uL (0.1-1.2); Monocytes Percent Auto 9.3 % (2-11); Neutrophils Absolute Auto 5.8 x10*3/uL (2.0-8.3); Neutrophils Percent Auto 67.7 % (45-73); Platelet Count 190 X10*3/uL (160-400); Red Blood Count 4.36 X10*6/uL (4.60-5.80); Red Cell Distribution Width 19.6 % (11.0-16.0); White Blood Count 8.6 X10*3/uL (4.8-10.8)
[2023-11-11 11:29] LABS: Alanine Aminotransferase 21 U/L (0-40); Albumin Level 4.3 g/dL (3.5-5.0); Alkaline Phosphatase 57 U/L (39-117); Anion Gap 14 (12-20); Aspartate Amino Transferase 24 U/L (5-37); Bilirubin Total 0.9 mg/dL (0.0-1.0); Blood Urea Nitrogen 10 mg/dL (9-16); C Reactive Protein < 0.04 mg/dL (< or = 0.50); Calcium 9.8 mg/dL (8.4-10.2); Carbon Dioxide 24 mmol/L (22-29); Chloride 106 mmol/L (96-108); Estimated Glomerular Filt Rate > 60; Glucose Random 138 mg/dL (60-115); Potassium 3.8 mmol/L (3.3-5.1); Sodium 140 mmol/L (135-145); Total Protein 6.9 g/dL (6.5-8.0)
[2023-11-11 11:41] LABS: Erythrocyte Sedimentation Rate 2 MM/HR (0-15)
[2023-11-11 11:58] LABS: HBS Num1 0.47 mIU/mL (0-7.99); HBc Num1 0.07 S/CO (0.00-0.79); Hepatitis B Core Antibody Nonreactive (Nonreactive); Hepatitis B Surface Antigen Negative (Negative); ~HepC Num1 0.09 S/CO (0.00-0.79); ~Hepatitis A Antibody IgM Nonreactive (Nonreactive); ~Hepatitis B Surface Antibody NONREACTIVE (Nonreactive); ~Hepatitis C Antibody Nonreactive (Nonreactive)
[2023-11-13 21:33] LABS: TS Negative Control Passed; TS Panel A 0; TS Panel B 3; TS Positive Control Passed; TSpotTB Negative (Negative)
== END 2023-11-11 10:21 | disposition home or self-care (01) ==
LOC: HO.LAB 10:20
PROVIDERS: PCP Family Medicine; Visit Provider Student in an Organized Health Care Education/Training Program
DX: M05.9 Rheumatoid arthritis with rheumatoid factor, unspecified (principal); Z11.7 Encounter for testing for latent tuberculosis infection; Z11.59 Encounter for screening for other viral diseases; Z72.89 Other problems related to lifestyle
CPT/HCPCS: 36415; 80053; 85025; 85652; 86140; 86481; 86704; 86706; 86709; 86803; 87340

== ENCOUNTER 2023-11-18 09:31 | Outpatient (AMB) | payer OTHER, SELFPAY ==
[2023-11-18 09:35] VITALS: BP 100/60; PULSE 70; BMI 26.9
--- NOTE | 2023-11-18 09:35 | A.OFFVIS_ITS ---
Intake Vital Signs 11/18/23 09:35 Height 5 ft 6 in Weight 166 lb 10.711 oz BMI 26.9 BP 100/60 Blood Pressure Location Rt brachial Position Sitting Pulse 70 Pulse Source Pulse Oximeter Intake Visit Reasons: RA Intake Note: Pt last seen 08/12/23 presents today for follow up and test results. Patient reports left wrist is inflamed for a few days and reports pain and the right wrist gets inflamed and has been going on for a few weeks. Shingle Carrier Required: No Shingle Carrier Name: Refusal signed Accompanied by: Daughter Allergies lisinopril [LISINOPRIL] Allergy (Severe, Verified 11/18/23 09:41) Angioedema LAITH Inhibitors Adverse Reaction (Severe, Verified 11/18/23 09:41) Angioedema Medication List - Last Reconciled 11/18/23 by Minnie Santillan MD acetaminophen (Tylenol Extra Strength) 500 mg PO Q6H PRN albuterol sulfate 90 mcg/actuation 2 puffs inhalation Q4H PRN amlodipine 5 mg PO DAILY 90 days atorvastatin 40 mg PO BEDTIME carvedilol 6.25 mg PO BID 90 days cholecalciferol (vitamin D3) 25 mcg PO DAILY dicyclomine 10 mg PO QID PRN docusate sodium (Colace) 100 mg PO BID fluticasone propionate 220 mcg/actuation 2 puffs inhalation BID folic acid 1 mg PO QAM loteprednol etabonate 0.5% 1 drp ophthalmic (eye) TID melatonin 3 mg PO BEDTIME PRN metformin ER 500 mg PO DAILY olopatadine 0.1% 1 drp ophthalmic (eye) QID omeprazole 20 mg PO QAM oxycodone 5 mg PO Q12H PRN polyethylene glycol 3350 (Miralax) 17 grams PO DAILY PRN prednisone Take 3 tabs daily x5 days then 2 tabs daily for 2 weeks then remain on 1 tab day Rasuvo (PF) (methotrexate (PF)) 25 mg (0.5 mL) subcut QWEEK NS sennosides 17.2 mg PO BEDTIME PRN tocilizumab (Actemra ACTPen) 162 mg (0.9 mL) subcut Q2W umeclidinium 62.5 mcg/actuation (Incruse Ellipta) 1 inh inhalation BEDTIME HPI HPI Comments History of Present Illness Details 78yoM presents for follow up seropositive rheumatoid arthritis (RF++ CCP++) who presents for follow-up. On Rasuvo 25 mg every week and Actemra 162 mg every other week. Patient tapered down to prednisone to 5 mg daily but as soon as he did that he started having bilateral wrist swelling and pain. He called our office and I asked patient to bump it up to 10 mg daily with resolution of his left wrist pain and swelling but he continues to have right wrist swelling. He self discontinued alendronate due to GI upset. 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 Osteoporosis Seropositive rheumatoid arthritis History of prostate cancer Arthritis GERD (gastroesophageal reflux disease) COPD (chronic obstructive pulmonary disease) Asthma HTN (hypertension) Surgical History History of open reduction and internal fixation (ORIF) procedure Hx of umbilical hernia repair Hx of eye surgery History of back surgery History of colonoscopy History of removal of cyst History of tonsillectomy and adenoidectomy History of arthroscopy of left shoulder History of prostate surgery Family History Mother History of breast cancer, Onset Age: 87 Father History of asthma Social History Alcohol intake: never Patient Tobacco Use Status: Current everyday Tobacco user Tobacco use type: Cigarette Cigarettes Per Day: 7 Years Smoked: 60 +/- e-Cigarette/Vaping Use: Never Used Current occupational status: retired Current occupation: Rt handed Gender identity: Male Review of Systems [facility] [place] Reports arthralgias, Reports joint swelling and Reports stiffness Physical Exam Vital Signs: Last Vital Signs Pulse 70 11/18/23 09:35 BP 100/60 11/18/23 09:35 BMI result Body Mass Index 26.9 Const General: cooperative, healthy appearing and comfortable Nutritional Appearance: average body habitus Orientation/consciousness: patient oriented x3 Limitations: ambulation with cane HEENT Head: Yes normocephalic and Yes atraumatic Resp Effort & Inspection: normal respiratory effort and able to speak in complete sentences Cardio Rhythm: regular rhythm Skin General skin exam: no rashes or lesions noted Neuro General: patient oriented x3 Extrem Other: Significant right ulnar styloid swelling with some erythema, exquisitely tender to palpation Bilateral ankle tenderness without significant swelling No active synovitis otherwise Negative MCP and MTP squeeze test bilaterally Bilateral lower limb pitting edema Assessment & Plan Assessment & Plan (1) Seropositive rheumatoid arthritis: Comment: ++RF++CCP Plaquenil - June 2016- July 2020 Oral methotrexate 2017, GI upset Arava- July 2018- November 2018, ineffective Xeljanz- June 2018- November 2018, unclear what happened Sulfasalazine- November 2018- July 2020 Rasuvo- March 2020- present Humira -August 2021- August 2022 (secondary nonresponse) Actemra September 2022 effective Prednisone throughout Code(s): M05.9 - Rheumatoid arthritis with rheumatoid factor, unspecified Plan: This is a 77-year-old male with seropositive RA who presents for follow up. On Actemra 162 mg every other week, Rasuvo 25 mg subcutaneously once weekly. Once prednisone was lowered to 5 mg daily he started having bilateral wrist swelling. Left wrist swelling improved with increasing prednisone to 10 mg daily but he continues to have significant right ECU tenosynovitis. Increase prednisone to 30 mg daily for 5 days then 20 mg daily for 2 weeks then remain on 10 mg daily. Advised patient to follow-up with hand surgeon if the right ECU swelling does not improve I would like to restart hydroxychloroquine, will refer patient to Ophthalmology for a baseline hydroxychloroquine screening. If patient is cleared. Will start hydroxychloroquine Continue Rasuvo 25 mg weekly + Actemra every other week. Chest CTA 10/2022 showed no evidence of ILD T-spot and Hepatitis panel -ve 11/2023,. Labs before next visit in 3 months (2) MCC systemic steroid user: Code(s): Z79.52 - MCC (current) use of systemic steroids Plan: Patient on long-term steroid therapy. Advised on the risk factor of steroids including but not limited to gastric irritation, elevated blood pressure, elevated blood sugar, weight gain, osteoporosis, risk of GI hemorrhage, cushingoid features. Patient was advised to follow-up with her PCP routinely regarding monitoring blood pressure and blood sugar. (3) Osteoporosis: Code(s): M81.0 - Age-related osteoporosis without current pathological fracture Qualifiers: Osteoporosis type: age-related Presence of current pathological fracture: without current pathological fracture Qualified Code(s): M81.0 - Age- related osteoporosis without current pathological fracture Plan: DEXA from November 2019 with osteopenia but high FRAX score. Patient started on Fosamax in November 2019, tolerating medications. His repeat DEXA scan in 2021 shows mild insignificant improvement.? Alendronate was stopped sometime 2021 in preparation for his dental implants. Patient already has his dental implants. Fosamax restarted 09/2022. Discontinue 11/2023 due to GI upset.. Will repeat DEXA in 03/2024 (4) Tobacco abuse disorder: Code(s): Z72.0 - Tobacco use Plan: Patient has been smoking since age 16. Currently he smokes half a pack a day. He denies any respiratory symptoms. Chest CTA showed no evidence of lung nodules or fibrosis. I discussed with patient the association of smoking with high rheumatoid arthritis disease activity. 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 Patient fully aware. Advised patient to seek medical care vance if patient has an infection and advised patient to stop the medication until the infection is resolved.? Side effects of methotrexate were discussed with the patient in detail including oral ulcers, elevated LFTs, abdominal discomfort, and possible pancytopenia is. Will monitor patient for side effects with frequent lab work. Advised patient to take folic acid daily to prevent complications of methotrexate. Plan I spent 38 minutes reviewing patient's chart, evaluating patient, ordering diagnostic workup, counseling patient and documenting in the chart Orders: Orders XR DEXA axial skeleton 03/01/24 M81.0 - Age-related osteoporosis without current pathological fracture Complete Blood Count Auto Diff 3 Months M05.9 - Rheumatoid arthritis with rheumatoid factor, unspecified Comprehensive Met. 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 Medications: New prednisone Take 3 tabs daily x5 days then 2 tabs daily for 2 weeks then remain on 1 tab day 100 tabs 1RF Discontinued prednisone Discontinued Reason: Doctor's Order Take 3 tabs by mouth once daily for 1 month, then remain on 2 tabs daily 210 tabs 1RF prednisone Discontinued Reason: Doctor's Order 10 mg (2 x 5 mg) PO DAILY 60 tabs 1RF Coding Level of Care Code Est Pt Level 5 (16492) Diagnoses 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
== END 2023-11-18 10:15 | disposition home or self-care (01) ==
PROVIDERS: PCP Family Medicine; Visit Provider Student in an Organized Health Care Education/Training Program
DX: M05.79 Rheumatoid arthritis with rheumatoid factor of multiple sites without organ or systems involvement (principal); Z79.52 Long term (current) use of systemic steroids; M81.0 Age-related osteoporosis without current pathological fracture; Z72.0 Tobacco use; Z51.81 Encounter for therapeutic drug level monitoring; Z79.899 Other long term (current) drug therapy
CPT/HCPCS: 99214

== ENCOUNTER → 2023-11-18 09:31 | Outpatient (BNVA) | payer OTHER, SELFPAY | PROVIDERS: PCP Family Medicine; Visit Provider Student in an Organized Health Care Education/Training Program | DX: M05.9 Rheumatoid arthritis with rheumatoid factor, unspecified (principal); M81.0 Age-related osteoporosis without current pathological fracture; Z79.52 Long term (current) use of systemic steroids; Z72.0 Tobacco use; Z51.81 Encounter for therapeutic drug level monitoring; Z79.899 Other long term (current) drug therapy | CPT/HCPCS: 99212 ==

== ENCOUNTER 2024-02-16 09:55 | Outpatient (REF) | payer OTHER, SELFPAY ==
[2024-02-16 10:10] LABS: MANUAL DIFF FLAG NO
[2024-02-16 10:45] LABS: Basophils Percent Auto 0.2 % (0-2); Eosinophils Absolute Auto 0.1 X10*3/uL (0.0-0.4); Eosinophils Percent Auto 0.6 % (0-4); Hematocrit 36.9 % (42.0-52.0); Hemoglobin 11.4 g/dl (14.0-18.0); Imm Gran Abs Auto 0.07 X10*3/uL (0.00-0.03); Imm Gran Pct Auto 0.6 % (0.0-0.4); Lymphocytes Absolute Auto 2.1 X10*3/uL (1.2-4.9); Lymphocytes Percent Auto 18.7 % (20-40); Mean Corpuscular HGB Conc 30.9 g/dl (31.0-36.0); Mean Corpuscular Volume 84.1 fL (80.0-98.0); Monocytes Absolute Auto 0.6 X10*3/uL (0.1-1.2); Monocytes Percent Auto 5.1 % (2-11); Neutrophils Absolute Auto 8.4 x10*3/uL (2.0-8.3); Neutrophils Percent Auto 74.8 % (45-73); Platelet Count 205 X10*3/uL (160-400); Red Blood Count 4.39 X10*6/uL (4.60-5.80); Red Cell Distribution Width 20.5 % (11.0-16.0); White Blood Count 11.2 X10*3/uL (4.8-10.8)
[2024-02-16 11:20] LABS: Alanine Aminotransferase 40 U/L (0-40); Alkaline Phosphatase 83 U/L (39-117); Anion Gap 12 (12-20); Aspartate Amino Transferase 19 U/L (5-37); Bilirubin Total 0.6 mg/dL (0.0-1.0); Blood Urea Nitrogen 13 mg/dL (9-16); C Reactive Protein < 0.04 mg/dL (< or = 0.50); Calcium 9.6 mg/dL (8.4-10.2); Carbon Dioxide 21 mmol/L (22-29); Chloride 104 mmol/L (96-108); Cholesterol 115 mg/dL (<200); Estimated Glomerular Filt Rate > 60; Glucose Random 204 mg/dL (60-115); HDL Cholesterol 41 mg/dL (>40); LDL Cholesterol Calculated 33 mg/dL (<100); Potassium 3.7 mmol/L (3.3-5.1); Sodium 133 mmol/L (135-145); Total Protein 6.4 g/dL (6.5-8.0); Triglycerides 205 mg/dL (<150)
[2024-02-16 11:43] LABS: Erythrocyte Sedimentation Rate 2 MM/HR (0-15)
== END 2024-02-16 09:56 | disposition home or self-care (01) ==
LOC: HO.LAB 09:55
PROVIDERS: Absent Provider Family Medicine; PCP Family Medicine; Visit Provider Student in an Organized Health Care Education/Training Program
DX: E11.9 Type 2 diabetes mellitus without complications (principal); M05.9 Rheumatoid arthritis with rheumatoid factor, unspecified
CPT/HCPCS: 36415; 80053; 80061; 85025; 85652; 86140

== ENCOUNTER 2024-02-23 09:51 | Outpatient (AMB) | payer OTHER, SELFPAY ==
--- NOTE | 2024-02-23 09:52 | MHC.OFFVIS ---
Vital Signs 02/23/24 09:55 Height 5 ft 6 in Weight 166 lb 10.711 oz BMI 26.9 BP 134/78 Blood Pressure Location Rt brachial Position Sitting Pulse 96 Pulse Source Pulse Oximeter Pulse Oximetry (%) 99 Oxygen Delivery Method Room Air Intake Visit Reasons: Follow up RA, RA Allergies lisinopril [LISINOPRIL] Allergy (Severe, Verified 11/18/23 09:41) Angioedema LAITH Inhibitors Adverse Reaction (Severe, Verified 11/18/23 09:41) Angioedema Medication List - Last Reconciled 02/23/24 by Minnie Santillan MD acetaminophen (Tylenol Extra Strength) 500 mg PO Q6H PRN albuterol sulfate 90 mcg/actuation 2 puffs inhalation Q4H PRN amlodipine 5 mg PO QPM atorvastatin 40 mg PO BEDTIME carvedilol 6.25 mg PO BID 90 days cholecalciferol (vitamin D3) 25 mcg PO DAILY docusate sodium (Colace) 100 mg PO BID fluticasone propionate 220 mcg/actuation 2 puffs inhalation BID folic acid 1 mg PO QAM loteprednol etabonate 0.5% 1 drp ophthalmic (eye) TID melatonin 3 mg PO BEDTIME PRN metformin ER 500 mg PO DAILY olopatadine 0.1% 1 drp ophthalmic (eye) QID omeprazole 20 mg PO QAM oxycodone 5 mg PO Q12H PRN polyethylene glycol 3350 (Miralax) 17 grams PO DAILY PRN prednisone 10 mg PO DAILY Rasuvo (PF) (methotrexate (PF)) 25 mg (0.5 mL) subcut QWEEK NS sennosides 17.2 mg PO BEDTIME PRN tocilizumab (Actemra ACTPen) 162 mg (0.9 mL) subcut Q2W umeclidinium 62.5 mcg/actuation (Incruse Ellipta) 1 inh inhalation BEDTIME HPI Comments Details: 78yoM presents for follow up seropositive rheumatoid arthritis (RF++ CCP++) who presents for follow-up. On Rasuvo 25 mg every week and Actemra 162 mg every other week. He is on prednisone 10 mg daily. Lowering prednisone to 5 mg resulted in a flare. He has been doing well with no active synovitis. 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 steroid user Osteoporosis Seropositive rheumatoid arthritis History of prostate cancer Arthritis GERD (gastroesophageal reflux disease) COPD (chronic obstructive pulmonary disease) Asthma HTN (hypertension) Surgical History History of open reduction and internal fixation (ORIF) procedure Hx of umbilical hernia repair Hx of eye surgery History of back surgery History of colonoscopy History of removal of cyst History of tonsillectomy and adenoidectomy History of arthroscopy of left shoulder History of prostate surgery Family History Mother History of breast cancer, Onset Age: 87 Father History of asthma Social History Alcohol intake: never Patient Tobacco Use Status: Current everyday Tobacco user Tobacco use type: Cigarette Cigarettes Per Day: 7 Years Smoked: 60 +/- e-Cigarette/Vaping Use: Never Used Current occupational status: retired Current occupation: Rt handed Gender identity: Male Review of Systems [facility] Reports back pain, Denies arthralgias and Denies stiffness Physical Exam Vital Signs: Last Vital Signs Pulse 96 02/23/24 09:55 BP 134/78 02/23/24 09:55 Pulse Ox 99 02/23/24 09:55 Oxygen Delivery Method Room Air 02/23/24 09:55 BMI result Body Mass Index 26.9 Const Other: Mildly cushingoid General: cooperative, healthy appearing and comfortable Nutritional Appearance: average body habitus Orientation/consciousness: patient oriented x3 Limitations: ambulation with cane HEENT Head: Yes normocephalic and Yes atraumatic Resp Effort & Inspection: normal respiratory effort and able to speak in complete sentences Cardio Rhythm: regular rhythm Skin General skin exam: no rashes or lesions noted Neuro General: patient oriented x3 Extrem Other: Mild boggy swelling of right ulnar styloid but no erythema warmth or tenderness No active synovitis otherwise Bilateral pitting edema of legs Assessment & Plan Assessment & Plan (1) Seropositive rheumatoid arthritis: Comment: ++RF++CCP Plaquenil - June 2016- July 2020 Oral methotrexate 2017, GI upset Arava- July 2018- November 2018, ineffective Xeljanz- June 2018- November 2018, unclear what happened Sulfasalazine- November 2018- July 2020 Rasuvo- March 2020- present Humira -August 2021- August 2022 (secondary nonresponse) Actemra September 2022 effective Prednisone throughout Code(s): M05.9 - Rheumatoid arthritis with rheumatoid factor, unspecified Category: Medical Plan: This is a 78-year-old male with seropositive RA who presents for follow up. On Actemra 162 mg every other week, Rasuvo 25 mg subcutaneously once weekly, and prednisone 10 mg daily. He is doing quite well on this combination with no active synovitis. Inflammatory markers are normal. Medications are well tolerated with no side effects. There were multiple attempts to try and for the prednisone however lowering it below 10 mg results in a flare. I would like to restart hydroxychloroquine, will refer patient to Ophthalmology for a baseline hydroxychloroquine screening. If patient is cleared. Will start hydroxychloroquine Continue Rasuvo 25 mg weekly + Actemra every other week. Prednisone 10 mg daily Chest CTA 10/2022 showed no evidence of ILD T-spot and Hepatitis panel -ve 11/2023,. 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 Advised on the risk factor of steroids including but not limited to gastric irritation, elevated blood pressure, elevated blood sugar, weight gain, osteoporosis, risk of GI hemorrhage, cushingoid features. Patient was advised to follow-up with her PCP routinely regarding monitoring blood pressure and blood sugar. (3) Osteoporosis: Code(s): M81.0 - Age-related osteoporosis without current pathological fracture Category: Medical Qualifiers: Osteoporosis type: age-related Presence of current pathological fracture: without current pathological fracture Qualified Code(s): M81.0 - Age-related osteoporosis without current pathological fracture Plan: DEXA from November 2019 with osteopenia but high FRAX score. Patient started on Fosamax in November 2019, tolerating medications. His repeat DEXA scan in 2021 shows mild insignificant improvement.? Alendronate was stopped sometime 2021 in preparation for his dental implants. Patient already has his dental implants. Fosamax restarted 09/2022. Discontinue 11/2023 due to GI upset.. Will repeat DEXA in 03/2024 (4) Tobacco abuse disorder: Code(s): Z72.0 - Tobacco use Category: Medical Plan: Patient has been smoking since age 16. Currently he smokes half a pack a day. He denies any respiratory symptoms. Chest CTA showed no evidence of lung nodules or fibrosis. I discussed with patient the association of smoking with high rheumatoid arthritis disease activity. Patient continues to smoke (5) Encounter for monitoring tocilizumab therapy: Code(s): Z51.81 - Encounter for therapeutic drug level monitoring; Z79.899 - Other terminal clerk (current) drug therapy Category: Medical Plan: Side effects of tocilizumab were discussed with the patient in detail including increased risk of infection, ?possible increased risk of solid and skin tumors. Patient fully aware. Advised patient to seek medical care vance if patient has an infection and advised patient to stop the medication until the infection is resolved.? Side effects of methotrexate were discussed with the patient in detail including oral ulcers, elevated LFTs, abdominal discomfort, and possible pancytopenia is. Will monitor patient for side effects with frequent lab work. Advised patient to take folic acid daily to prevent complications of methotrexate. Plan I spent 38 minutes reviewing patient's chart, evaluating patient, ordering diagnostic workup, counseling patient and documenting in the chart Orders: Orders Complete Blood Count Auto Diff 3 Months M05.9 - Rheumatoid arthritis with rheumatoid factor, unspecified Erythrocyte Sedimentation Rate 3 Months M05.9 - Rheumatoid arthritis with rheumatoid factor, unspecified Comprehensive Met. Panel 3 Months M05.9 - Rheumatoid arthritis with rheumatoid factor, unspecified C Reactive Protein 3 Months M05.9 - Rheumatoid arthritis with rheumatoid factor, unspecified Coding Level of Care Code Est Pt Level 5 (41107) Complex EM visit Add On G2211 Diagnoses Seropositive rheumatoid arthritis M05.9 senior living systemic steroid user Z79.52 Age-related osteoporosis without current pathological fracture M81.0 Osteoporosis type: age-related Presence of current pathological fracture: without current pathological fracture Tobacco abuse disorder Z72.0 Encounter for monitoring tocilizumab therapy Z51.81; Z79.899
[2024-02-23 09:55] VITALS: BP 134/78; PULSE 96; O2SAT 99; BMI 26.9
== END 2024-02-23 10:15 | disposition home or self-care (01) ==
PROVIDERS: PCP Family Medicine; Visit Provider Student in an Organized Health Care Education/Training Program
DX: M05.79 Rheumatoid arthritis with rheumatoid factor of multiple sites without organ or systems involvement (principal); Z79.52 Long term (current) use of systemic steroids; M81.0 Age-related osteoporosis without current pathological fracture; Z72.0 Tobacco use; Z51.81 Encounter for therapeutic drug level monitoring; Z79.899 Other long term (current) drug therapy
CPT/HCPCS: 99214; G2211

== ENCOUNTER → 2024-02-23 09:51 | Outpatient (BNVA) | payer OTHER, SELFPAY | PROVIDERS: PCP Family Medicine; Visit Provider Student in an Organized Health Care Education/Training Program | DX: M05.9 Rheumatoid arthritis with rheumatoid factor, unspecified (principal); M81.0 Age-related osteoporosis without current pathological fracture; Z51.81 Encounter for therapeutic drug level monitoring; F17.210 Nicotine dependence, cigarettes, uncomplicated; Z79.52 Long term (current) use of systemic steroids; Z79.899 Other long term (current) drug therapy | CPT/HCPCS: 99212 ==

== ENCOUNTER 2024-03-30 09:42 | Outpatient (REF) | payer OTHER, SELFPAY ==
--- NOTE | ~2024-03-30 | MM_ITS ---
EXAMINATION: BONE DENSITOMETRY CLINICAL INDICATION: Age-related osteoporosis without current pathological fracture. COMPARISON: Previous BD dated 03/17/2022 and baseline BD dated 10/21/2017. TECHNIQUE: Using a [employer] DXA System (software version: 13.1) manufactured by [employer], dual-energy x-ray absorptiometry was performed of the lumbar spine and left hip. The images are of good technical quality. Summary results are attached. FINDINGS: LEFT FEMUR, NECK: Current: BMD 0.849 g/cm2, Z-score -0.2, T-score -1.7, osteopenia. Prior: BMD 0.847 g/cm2. Baseline: BMD 0.856 g/cm2. LEFT FEMUR, TOTAL: Current: BMD 0.944 g/cm2, Z-score -0.1, T-score -1.1, osteopenia, 1.3% decrease from previous, 1.3% increase from baseline (<5% change is not significant). Prior: BMD 0.956 g/cm2. Baseline: BMD 0.932 g/cm2. AP SPINE L1-L2 (excluding L3 and L4): The data of L1-L4 has been changed to exclude the L3 and L4 vertebral bodies, because degenerative sclerosis at these levels may cause overestimation of lumbar spine density. Current: BMD 1.093 g/cm2, Z-score -0.1, T-score -0.9, normal, 2.1% increase from previous, 1.0% increase from baseline (<5% change is not significant). Prior: BMD 1.071 g/cm2. Baseline: BMD 1.082 g/cm2. IDENTIFIED RISK FACTORS: Rheumatoid arthritis, current smoker, history of fracture (adult), glucocorticoids. HISTORY OF FRACTURE: Wrist. MEDICATIONS: Multivitamin. MM/XR DEXA axial skeleton IMPRESSION: 1. DIAGNOSIS: Osteopenia based on the lowest T-score value of -1.7 in the femoral neck applying World Health Organization criteria. 2. 10-YEAR FRACTURE RISK PREDICTION, FRAX: Major osteoporotic fracture (clinical spine, forearm, hip or shoulder) 14.2%. Hip fracture 7.2%. 3. Treatment Recommendations: NOF guidelines recommend consideration for treatment in postmenopausal women and men age 50 and older presenting with the following: -A hip or vertebral (clinical or morphometric) fracture. -T-score less than or equal to -2.5 at the femoral neck or spine after appropriate evaluation to exclude secondary causes. -Low bone mass at the hip or spine and a 10-year fracture probability by FRAX of greater than or equal to 3% for hip fracture or greater than or equal to 20% for major osteoporotic fracture based on the [place] adapted WHO algorithm. 4. Other Recommendations: All treatment decisions require clinical judgment and consideration of individual patient factors, including patient preferences, comorbidities, previous drug use, risk factors not captured in the FRAX model (e.g. frailty, falls, vitamin D deficiency, increased bone turnover, interval significant decline in bone density) and possible under or overestimation of fracture risk by FRAX. Additional medical evaluation for secondary cause of low bone mineral density may be appropriate. FUTURE SCAN RECOMMENDATION: People with diagnosed cases of osteoporosis or at high risk for fracture should have regular bone mineral density tests. For patients eligible for Medicare, routine testing is allowed once every 2 years. The testing frequency can be increased to one year for patients who have rapidly progressing disease, those who are receiving or discontinuing medical therapy to restore bone mass, or have additional risk factors.
== END 2024-03-30 09:43 | disposition home or self-care (01) ==
LOC: HO.MAMMO 09:42
PROVIDERS: PCP Internal Medicine; Visit Provider Student in an Organized Health Care Education/Training Program
DX: Z13.820 Encounter for screening for osteoporosis (principal); M81.0 Age-related osteoporosis without current pathological fracture
CPT/HCPCS: 77080

== ENCOUNTER 2024-05-19 08:04 | Outpatient (REF) | payer OTHER, SELFPAY ==
[2024-05-19 09:39] LABS: MANUAL DIFF FLAG NO
[2024-05-19 10:24] LABS: Basophils Percent Auto 0.3 % (0-2); Eosinophils Absolute Auto 0.1 X10*3/uL (0.0-0.4); Eosinophils Percent Auto 1.1 % (0-4); Hematocrit 36.7 % (42.0-52.0); Imm Gran Abs Auto 0.04 X10*3/uL (0.00-0.03); Imm Gran Pct Auto 0.6 % (0.0-0.4); Lymphocytes Absolute Auto 2.3 X10*3/uL (1.2-4.9); Lymphocytes Percent Auto 31.3 % (20-40); Mean Corpuscular Hemoglobin 26.1 pg (27.0-33.0); Mean Platelet Volume 9.4 fL (9.4-12.4); Monocytes Absolute Auto 0.4 X10*3/uL (0.1-1.2); Monocytes Percent Auto 6.1 % (2-11); Neutrophils Absolute Auto 4.4 x10*3/uL (2.0-8.3); Neutrophils Percent Auto 60.6 % (45-73); Platelet Count 170 X10*3/uL (160-400); Red Blood Count 4.22 X10*6/uL (4.60-5.80); Red Cell Distribution Width 20.9 % (11.0-16.0); White Blood Count 7.2 X10*3/uL (4.8-10.8)
[2024-05-19 11:02] LABS: Erythrocyte Sedimentation Rate 2 MM/HR (0-15)
[2024-05-19 11:52] LABS: Sodium 140 mmol/L (135-145)
[2024-05-19 11:53] LABS: Alanine Aminotransferase 35 U/L (0-40); Anion Gap 15 (12-20); Aspartate Amino Transferase 24 U/L (5-37); Bilirubin Total 0.8 mg/dL (0.0-1.0); Blood Urea Nitrogen 7 mg/dL (9-16); C Reactive Protein < 0.04 mg/dL (< or = 0.50); Calcium 9.3 mg/dL (8.4-10.2); Carbon Dioxide 23 mmol/L (22-29); Chloride 106 mmol/L (96-108); Estimated Glomerular Filt Rate > 60; Glucose Random 113 mg/dL (60-115); Total Protein 5.9 g/dL (6.5-8.0)
[2024-05-19 11:54] LABS: Albumin Level 3.9 g/dL (3.5-5.0); Alkaline Phosphatase 78 U/L (39-117)
== END 2024-05-19 08:05 | disposition home or self-care (01) ==
LOC: HO.LAB 08:04
PROVIDERS: PCP Family Medicine; Visit Provider Student in an Organized Health Care Education/Training Program
DX: M05.9 Rheumatoid arthritis with rheumatoid factor, unspecified (principal)
CPT/HCPCS: 36415; 80053; 85025; 85652; 86140

== ENCOUNTER 2024-05-23 09:53 | Outpatient (AMB) | payer OTHER, SELFPAY ==
[2024-05-23 10:07] VITALS: BP 132/62; PULSE 65; O2SAT 97; BMI 27.0
--- NOTE | 2024-05-23 10:07 | MHC.OFFVIS ---
Vital Signs 05/23/24 10:07 Height 5 ft 6 in Weight 167 lb 1.766 oz BMI 27.0 BP 132/62 Blood Pressure Location Rt brachial Position Sitting Pulse 65 Pulse Source Pulse Oximeter Pulse Oximetry (%) 97 Oxygen Delivery Method Room Air Intake Visit Reasons: RA/cm Intake Note: Patient last seen on 02/23/24 present today for follow up and test results. Accompanied by: QUALITY ASSURANCE INTERN Allergies lisinopril [LISINOPRIL] Allergy (Severe, Verified 05/23/24 10:10) Angioedema LAITH Inhibitors Adverse Reaction (Severe, Verified 05/23/24 10:10) Angioedema Medication List - Last Reconciled 05/23/24 by Minnie Santillan MD acetaminophen (Tylenol Extra Strength) 500 mg PO Q6H PRN albuterol sulfate 90 mcg/actuation 2 puffs inhalation Q4H PRN amlodipine 5 mg PO QPM atorvastatin 40 mg PO BEDTIME carvedilol 6.25 mg PO BID 90 days cholecalciferol (vitamin D3) 25 mcg PO DAILY docusate sodium (Colace) 100 mg PO BID fluticasone propionate 220 mcg/actuation 2 puffs inhalation BID folic acid 1 mg PO QAM loteprednol etabonate 0.5% 1 drp ophthalmic (eye) TID melatonin 3 mg PO BEDTIME PRN metformin ER 500 mg PO DAILY olopatadine 0.1% 1 drp ophthalmic (eye) QID omeprazole 20 mg PO QAM oxycodone 5 mg PO Q12H PRN polyethylene glycol 3350 (Miralax) 17 grams PO DAILY PRN prednisone Take 2 tabs daily for 1 week then remain on 1 tab daily Rasuvo (PF) (methotrexate (PF)) 25 mg (0.5 mL) subcut QWEEK NS sennosides 17.2 mg PO BEDTIME PRN tocilizumab (Actemra ACTPen) 162 mg (0.9 mL) subcut Q2W umeclidinium 62.5 mcg/actuation (Incruse Ellipta) 1 inh inhalation BEDTIME HPI Comments Details: 78yoM presents for follow up seropositive rheumatoid arthritis (RF++ CCP++) who presents for follow-up. On Rasuvo 25 mg every week and Actemra 162 mg every other week. And prednisone 10 mg daily. A few weeks ago patient started having flare-up of his RA that necessitated increasing his prednisone to 30 mg daily. He is now down to 10 mg daily. He states that he has significant swelling of both his legs. He has bilateral shoulder stiffness worse on the right, he is also having low back pain that is nonradiating. 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 Osteoporosis Seropositive rheumatoid arthritis History of prostate cancer Arthritis GERD (gastroesophageal reflux disease) COPD (chronic obstructive pulmonary disease) Asthma HTN (hypertension) Surgical History History of open reduction and internal fixation (ORIF) procedure Hx of umbilical hernia repair Hx of eye surgery History of back surgery History of colonoscopy History of removal of cyst History of tonsillectomy and adenoidectomy History of arthroscopy of left shoulder History of prostate surgery Family History Mother History of breast cancer, Onset Age: 87 Father History of asthma Social History Alcohol intake: never Patient Tobacco Use Status: Current everyday Tobacco user Tobacco use type: Cigarette Cigarettes Per Day: 7 Years Smoked: 60 +/- e-Cigarette/Vaping Use: Never Used Current occupational status: retired Current occupation: Rt handed Gender identity: Male Review of Systems [facility] [place] Reports back pain, Denies arthralgias, Reports joint swelling, Reports limited range of motion and Denies stiffness Physical Exam Vital Signs: Last Vital Signs Pulse 65 05/23/24 10:07 BP 132/62 05/23/24 10:07 Pulse Ox 97 05/23/24 10:07 Oxygen Delivery Method Room Air 05/23/24 10:07 BMI result Body Mass Index 27.0 Const Other: Mildly cushingoid General: cooperative, healthy appearing and comfortable Nutritional Appearance: average body habitus Orientation/consciousness: patient oriented x3 Limitations: ambulation with cane HEENT Head: Yes normocephalic and Yes atraumatic Resp Effort & Inspection: normal respiratory effort and able to speak in complete sentences Cardio Rhythm: regular rhythm Skin General skin exam: no rashes or lesions noted Neuro General: patient oriented x3 Extrem Other: Mild boggy swelling of right ulnar styloid but no erythema warmth or tenderness Mild bilateral shoulder pain and stiffness with full abduction, slightly worse on the right No active synovitis otherwise Bilateral 3+ pitting edema of the legs all the way up to the mid palmer Office Procedures Joint Injection/Drain Joint Injection/Drain Primary Site: right shoulder Prep: site was prepped using sterile technique and ethochloride spray was applied Injected: 40 mg of, Kenalog, with 1 mL of, 1% plain lidocaine and in the subcromial space Approach Used: posterolateral Procedure: The patient tolerated the procedure well Coding Details: With patient's consent. The right shoulder was prepped ChloraPrep and alcohol. The subacromial space was injected with 40 mg of triamcinolone and 1 cc of lidocaine. Patient tolerated the procedure well no apparent immediate side effects. - Large joint Procedure code (CPT) selection complete Assessment & Plan Assessment & Plan (1) Seropositive rheumatoid arthritis: Comment: ++RF++CCP Plaquenil - June 2016- July 2020 Oral methotrexate 2017, GI upset Arava- July 2018- November 2018, ineffective Xeljanz- June 2018- November 2018, unclear what happened Sulfasalazine- November 2018- July 2020 Rasuvo- March 2020- present Humira -August 2021- August 2022 (secondary nonresponse) Actemra September 2022 effective Prednisone throughout Code(s): M05.9 - Rheumatoid arthritis with rheumatoid factor, unspecified Category: Medical Plan: This is a 78-year-old male with seropositive RA who presents for follow up. On Actemra 162 mg every other week, Rasuvo 25 mg subcutaneously once weekly, and prednisone 10 mg daily. He is doing quite well on this combination with no active synovitis. Inflammatory markers are normal. Medications are well tolerated with no side effects. His symptoms today are more related to degenerative arthritis. Mostly affecting his right shoulder. With patient's consent, right shoulder was injected with Kenalog today. Advised patient to monitor his blood sugars closely the coming 2-3 days There were multiple attempts to try and for the prednisone however lowering it below 10 mg results in a flare. I would like to restart hydroxychloroquine, will refer patient to Ophthalmology for a baseline hydroxychloroquine screening. If patient is cleared. Will start hydroxychloroquine. It does not look like patient was scheduled. We will re-attempt to schedule him with Ophthalmology Continue Rasuvo 25 mg weekly + Actemra every other week. Prednisone 10 mg daily Chest CTA 10/2022 showed no evidence of ILD T-spot and Hepatitis panel -ve 11/2023,. 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 Advised on the risk factor of steroids including but not limited to gastric irritation, elevated blood pressure, elevated blood sugar, weight gain, osteoporosis, risk of GI hemorrhage, cushingoid features. Patient was advised to follow-up with her PCP routinely regarding monitoring blood pressure and blood sugar. (3) Osteoporosis: Code(s): M81.0 - Age-related osteoporosis without current pathological fracture Category: Medical Qualifiers: Osteoporosis type: age-related Presence of current pathological fracture: without current pathological fracture Qualified Code(s): M81.0 - Age-related osteoporosis without current pathological fracture Plan: DEXA from November 2019 with osteopenia but high FRAX score. Patient started on Fosamax in November 2019, tolerating medications. His repeat DEXA scan in 2021 shows mild insignificant improvement.? Alendronate was stopped sometime 2021 in preparation for his dental implants. Patient already has his dental implants. Fosamax restarted 09/2022. Discontinued 11/2023 due to GI upset.. Repeat DEXA/2023 did not show any significant improvement. Patient needs a stronger antiresorptive such as Reclast or Fosamax. Check borne turnover markers and vitamin-D level. We will discuss further next visit. (4) Tobacco abuse disorder: Code(s): Z72.0 - Tobacco use Category: Medical Plan: Patient has been smoking since age 16. Currently he smokes half a pack a day. He denies any respiratory symptoms. Chest CTA showed no evidence of lung nodules or fibrosis. I discussed with patient the association of smoking with high rheumatoid arthritis disease activity. Patient continues to smoke (5) Encounter for monitoring tocilizumab therapy: Code(s): Z51.81 - Encounter for therapeutic drug level monitoring; Z79.899 - Other intermediate (current) drug therapy Category: Medical Plan: Side effects of tocilizumab were discussed with the patient in detail including increased risk of infection, ?possible increased risk of solid and skin tumors. Patient fully aware. Advised patient to seek medical care vance if patient has an infection and advised patient to stop the medication until the infection is resolved.? Side effects of methotrexate were discussed with the patient in detail including oral ulcers, elevated LFTs, abdominal discomfort, and possible pancytopenia is. Will monitor patient for side effects with frequent lab work. Advised patient to take folic acid daily to prevent complications of methotrexate. (6) 3+ pitting edema: Code(s): R60.9 - Edema, unspecified Category: Medical Plan: Significant pitting edema of lower extremities. May be related to recent increase in prednisone dose. Think patient should see his pharmacy affairs assistant soon to adjust his medicines Plan I spent 46 minutes reviewing patient's chart, evaluating patient, ordering diagnostic workup, counseling patient and documenting in the chart Orders: Orders AMB Joint Injection/Aspiration Today M19.011 - Primary osteoarthritis, right shoulder Complete Blood Count Auto Diff 3 Months M05.9 - Rheumatoid arthritis with rheumatoid factor, unspecified Comprehensive Met. Panel 3 Months M05.9 - Rheumatoid arthritis with rheumatoid factor, unspecified C Reactive Protein 3 Months M05.9 - Rheumatoid arthritis with rheumatoid factor, unspecified Collagen Type I C-Telopeptide 3 Months M81.0 - Age-related osteoporosis without current pathological fracture Phosphorus 3 Months M81.0 - Age-related osteoporosis without current pathological fracture Parathyroid Hormone Intact 3 Months M81.0 - Age-related osteoporosis without current pathological fracture Erythrocyte Sedimentation Rate 3 Months M05.9 - Rheumatoid arthritis with rheumatoid factor, unspecified Protein Electrophoresis, Serum 3 Months M81.0 - Age-related osteoporosis without current pathological fracture TSH reflex Free T4 3 Months M81.0 - Age-related osteoporosis without current pathological fracture Vitamin D 25-OH Total 3 Months E55.9 - Vitamin D deficiency, unspecified Coding Level of Care Code Est Pt Level 5 (58219) Complex EM visit Add On G2211 Diagnoses Seropositive rheumatoid arthritis M05.9 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
== END 2024-05-23 10:46 | disposition home or self-care (01) ==
PROVIDERS: PCP Family Medicine; Visit Provider Student in an Organized Health Care Education/Training Program
DX: M05.79 Rheumatoid arthritis with rheumatoid factor of multiple sites without organ or systems involvement (principal); Z79.52 Long term (current) use of systemic steroids; M81.0 Age-related osteoporosis without current pathological fracture; Z72.0 Tobacco use; Z51.81 Encounter for therapeutic drug level monitoring; Z79.899 Other long term (current) drug therapy; R60.9 Edema, unspecified; M25.511 Pain in right shoulder
CPT/HCPCS: 20610; 99215

== ENCOUNTER → 2024-05-23 09:53 | Outpatient (BNVA) | payer OTHER, SELFPAY | PROVIDERS: PCP Family Medicine; Visit Provider Student in an Organized Health Care Education/Training Program | DX: M05.9 Rheumatoid arthritis with rheumatoid factor, unspecified (principal); M19.011 Primary osteoarthritis, right shoulder; M81.0 Age-related osteoporosis without current pathological fracture; R60.9 Edema, unspecified; Z72.0 Tobacco use; Z79.52 Long term (current) use of systemic steroids; Z79.899 Other long term (current) drug therapy | CPT/HCPCS: 20610; 99212; J2003; J3301 ==

== ENCOUNTER 2024-05-30 10:03 | Outpatient (AMB) | payer OTHER, SELFPAY ==
--- NOTE | 2024-05-30 10:21 | A.OFFVIS_ITS ---
Vital Signs 05/30/24 10:22 Height 5 ft 6 in Weight 161 lb 6.054 oz BMI 26.0 BP 134/62 Blood Pressure Location Lt brachial Position Sitting Pulse 68 Pulse Source Monitor Intake Visit Reasons: f/u Edema per PCP Supervisor Blasting Required: Yes Allergies lisinopril [LISINOPRIL] Allergy (Severe, Verified 05/30/24 10:25) Angioedema LAITH Inhibitors Adverse Reaction (Severe, Verified 05/30/24 10:25) Angioedema Medication List - Last Reconciled 05/30/24 by DEBBIE Mckenzie acetaminophen (Tylenol Extra Strength) 500 mg PO Q6H PRN albuterol sulfate 90 mcg/actuation 2 puffs inhalation Q4H PRN atorvastatin 40 mg PO BEDTIME carvedilol 6.25 mg PO BID 90 days cholecalciferol (vitamin D3) 25 mcg PO DAILY docusate sodium (Colace) 100 mg PO BID fluticasone propionate 220 mcg/actuation 2 puffs inhalation BID folic acid 1 mg PO QAM hydrochlorothiazide 12.5 mg PO DAILY icosapent ethyl grams PO loteprednol etabonate 0.5% 1 drp ophthalmic (eye) TID melatonin 3 mg PO BEDTIME PRN metformin ER 500 mg PO DAILY olopatadine 0.1% 1 drp ophthalmic (eye) QID omeprazole 20 mg PO QAM oxycodone 5 mg PO Q12H PRN polyethylene glycol 3350 (Miralax) 17 grams PO DAILY PRN prednisone Take 2 tabs daily for 1 week then remain on 1 tab daily Rasuvo (PF) (methotrexate (PF)) 25 mg (0.5 mL) subcut QWEEK NS sennosides 17.2 mg PO BEDTIME PRN tocilizumab (Actemra ACTPen) 162 mg (0.9 mL) subcut Q2W umeclidinium 62.5 mcg/actuation (Incruse Ellipta) 1 inh inhalation BEDTIME HPI HPI f/u Edema per PCP: Details: Patrice is a 78-year-old male with past medical history of hypertension, smoking, rheumatoid arthritis, bicuspid aortic valve without stenosis or regurgitation, dilated ascending aorta who was sent for follow-up by his PCP due to leg edema. Today he reports that he has had foot swelling for approximately 2 months. He was taken off amlodipine approximately a week ago and he is noticing a slight improvement in his leg swelling. He has been on prednisone for rheumatoid arthritis flare. He denies other changes in his medications. He tries to avoid salt in his diet. His breathing has been comfortable with no recent change. No PND, orthopnea, cough, recent illness. He denies having any chest discomfort at rest or with activity. No palpitations, presyncope, syncope, falls. He is taking his meds as directed. Family member present. 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 Osteoporosis Seropositive rheumatoid arthritis History of prostate cancer Arthritis GERD (gastroesophageal reflux disease) COPD (chronic obstructive pulmonary disease) Asthma HTN (hypertension) Surgical History History of open reduction and internal fixation (ORIF) procedure Hx of umbilical hernia repair Hx of eye surgery History of back surgery History of colonoscopy History of removal of cyst History of tonsillectomy and adenoidectomy History of arthroscopy of left shoulder History of prostate surgery Family History Mother History of breast cancer, Onset Age: 87 Father History of asthma Social History Alcohol intake: never Patient Tobacco Use Status: Current everyday Tobacco user Tobacco use type: Cigarette Cigarettes Per Day: 7 Years Smoked: 60 +/- e-Cigarette/Vaping Use: Never Used Current occupational status: retired Current occupation: Rt handed Gender identity: Male Review of Systems Const All systems reviewed & are unremarkable except as noted in HPI and below Reports weight loss ENT Denies dizziness Card Denies chest pain, Denies chest pain at rest, Denies chest pain with activity, Denies rapid heart rate, Reports pedal edema, Denies edema, Reports leg edema, Denies lightheadedness, Denies palpitations, Denies dyspnea, Denies dyspnea on exertion and Denies orthopnea Resp Denies cough, Denies dyspnea and Denies dyspnea on exertion GI Denies hematochezia and Denies change in stool character Musc Denies abnormal gait, Denies limited range of motion, Denies muscle cramps, Denies muscle weakness, Denies numbness, Denies radiating pain into limb, Denies stiffness and Denies tingling Neuro Denies abnormal gait, Denies dizziness, Denies numbness and Denies tingling Endo Denies palpitations Physical Exam Vital Signs: Last Vital Signs Pulse 68 05/30/24 10:22 BP 134/62 05/30/24 10:22 BMI result Body Mass Index 26.0 Const General: cooperative, healthy appearing, comfortable and no acute distress Orientation/consciousness: patient oriented x3 Neck Neck: Yes normal visual inspection Resp Effort & Inspection: normal respiratory effort Auscultation: clear to auscultation bilaterally, no crackles, no rales, no rhonchi and no wheezes Cardio Jugular venous distension: no JVD Rate: regular rate Rhythm: regular rhythm Heart sounds: S1 normal heart sound present, S2 normal heart sound present, no murmurs and no rubs Skin General skin exam: no rashes or lesions noted Neuro General: patient oriented x3 Extrem Other: pillow top feet with 3 +edema, soft ankle edema into distal lower leg, sock markings Psych Appearance: grossly normal Mental Status: mental status grossly normal Speech and movement: Normal speech and movement present Office Procedures EKG Details: Sinus rhythm with sinus arrhythmia, PACs, QTC 391 milliseconds, rate 68. [id number], Complete Assessment & Plan Assessment & Plan (1) Edema of both ankles: Code(s): M25.471 - Effusion, right ankle; M25.472 - Effusion, left ankle Category: Medical Plan: History of leg edema with higher dose amlodipine use. He did have improvement in his swelling when his amlodipine was reduced to 5 mg daily. He now reports that he has been having foot and ankle swelling for the last 2 months. Tells me his amlodipine was stopped last week. He is already noticing some improvement in this symptom. On exam he does not appear fluid overloaded elsewhere. His weight in fact is down 17 lb since his last visit in September. His last echo does show a normal EF, impaired relaxation. He is on hydrochlorothiazide. He is on prednisone which can contribute to some mild edema. Will have him check labs today including BMP and BNP. If BNP is elevated then plan to change hydrochlorothiazide to low-dose Lasix. Gave him a pair of compression stockings from our office stock. Instructed on leg elevation, compression stocking use, low-salt diet. Will plan to update his echo prior to his next visit. Cardiology follow-up as planned for September 2024. (2) Ascending aorta dilatation: Code(s): I77.810 - Thoracic aortic ectasia Category: Medical Plan: Hx of dilated ascending aorta. Echo done 08/28/22 shows moderate dilation of ascending aorta at 4.6 cm. He then had a CTA of chest showing sinus of valsalva dilated at 4.7 cm and ascending aorta dilated at 4.2 cm. Repeat echocardiogram done 08/25/2023 shows EF 60-65%, dilated ascending aorta 4.6 cm. Overall no change in the last year. Today he reports feeling well. His only complaint is of the foot and ankle swelling. Instructed on no heavy lifting. BP well controlled. No med changes made today. Plan for repeat echo 1 yr from last. Cardiology follow-up after echo results are available (3) Bicuspid aortic valve: Code(s): Q23.1 - Congenital insufficiency of aortic valve Category: Medical Plan: Known hx of Bicuspid aortic valve without stenosis or regurgitation. Followed by echocardiograms. Last echo 08/25/2023 shows mild calcification of the aortic valve, no regurgitation or stenosis. Repeat echo as above (4) HTN (hypertension): Code(s): I10 - Essential (primary) hypertension Category: Medical Plan: Well controlled at this time. Continue hydrochlorothiazide and carvedilol. Plan Time spent on chart review, documentation, interview and assessment Orders: Orders B Type Natriuretic Peptide Today R60.9 - Edema, unspecified Basic Metabolic Panel Today R60.9 - Edema, unspecified Coding Level of Care Code Est Pt Level 4 (71248) Diagnoses Edema of both ankles M25.471; M25.472 Ascending aorta dilatation I77.810 Bicuspid aortic valve Q23.1 HTN (hypertension) I10 CPT Codes EKG - CPT: 31891-[id number], Complete ([id number]) Time Spent (min) 30
[2024-05-30 10:22] VITALS: BP 134/62; PULSE 68; BMI 26.0
== END 2024-05-30 10:56 | disposition home or self-care (01) ==
PROVIDERS: PCP Family Medicine; Visit Provider Nurse Practitioner Family
DX: M25.471 Effusion, right ankle (principal); M25.472 Effusion, left ankle; I77.810 Thoracic aortic ectasia; Q23.1 Congenital insufficiency of aortic valve; I10 Essential (primary) hypertension
CPT/HCPCS: 93010; 99214

== ENCOUNTER 2024-05-30 10:03 | Outpatient (REF) | payer OTHER, SELFPAY ==
[2024-05-30 12:53] LABS: Anion Gap 13 (12-20); Blood Urea Nitrogen 10 mg/dL (9-16); Calcium 10.3 mg/dL (8.4-10.2); Carbon Dioxide 26 mmol/L (22-29); Chloride 101 mmol/L (96-108); Estimated Glomerular Filt Rate > 60; Glucose Random 128 mg/dL (60-115); Sodium 136 mmol/L (135-145)
[2024-05-30 12:58] LABS: B Type Natriuretic Peptide 98 pg/mL (<100)
== END 2024-05-30 10:04 | disposition home or self-care (01) ==
LOC: HO.LAB 10:03
PROVIDERS: PCP Family Medicine; Visit Provider Nurse Practitioner Family
DX: R60.9 Edema, unspecified (principal); M25.471 Effusion, right ankle; M25.472 Effusion, left ankle; I77.810 Thoracic aortic ectasia; Q23.1 Congenital insufficiency of aortic valve; I10 Essential (primary) hypertension
CPT/HCPCS: 36415; 80048; 83880; 93005; 99212

== ENCOUNTER 2024-07-24 11:06 | Outpatient (REF) | payer OTHER, SELFPAY ==
--- NOTE | ~2024-07-24 | MR_ITS ---
EXAMINATION: MRI RIGHT SHOULDER WITHOUT CONTRAST CLINICAL INFORMATION: M25.511 - Pain in right shoulder COMPARISON: Radiographs 09/06/2021 TECHNIQUE: MRI of the shoulder without contrast is performed on a 1.5 Shantal high-field scanner. FINDINGS: ROTATOR CUFF: The supraspinatus tendon is completely torn and retracted beyond the apex of the humeral head. Complete or near-complete tear of the subscapularis tendon. Infraspinatus tendinosis. Moderate supraspinatus and subscapularis muscle atrophy with mild fatty infiltration. BICEPS: The biceps tendon is completely torn and retracted. CORACOACROMIAL ARCH: The undersurface of the acromion is chronically remodeled by the superiorly subluxed humeral head with lateral spurring and chronic ossifications at the deltoid attachment. Mild acromioclavicular osteoarthritis. LABRUM/CAPSULE: Blunting/fraying of the superior labrum. GLENOHUMERAL JOINT/MARROW: Degenerative spurring and marrow changes along the greater tuberosity and the lesser tuberosity. Small joint effusion. Small marginal osteophytes of the glenoid rim. ADDITIONAL FINDINGS: None. MR/MR shoulder RT wo con IMPRESSION: 1. Completely torn and retracted supraspinatus tendon with moderate muscle atrophy and mild fatty infiltration. 2. Complete or near-complete tear of the subscapularis tendon with moderate muscle atrophy and mild fatty infiltration. 3. Completely torn and retracted biceps tendon. 4. Superior subluxation of the humeral head with chronic remodeling of the undersurface of the acromion. 5. Mild acromioclavicular and glenohumeral osteoarthritis. Electronically signed by: Sammy Ornelas MD 07/24/2024 02:32 PM EDT
== END 2024-07-24 11:07 | disposition home or self-care (01) ==
LOC: HO.MRI 11:06
PROVIDERS: PCP Family Medicine; Visit Provider Student in an Organized Health Care Education/Training Program
DX: M25.511 Pain in right shoulder (principal)
CPT/HCPCS: 73221

== ENCOUNTER 2024-07-27 09:24 | Outpatient (AMB) | payer OTHER, SELFPAY ==
--- NOTE | 2024-07-27 09:30 | A.OFFVIS_ITS ---
Vital Signs 07/27/24 09:33 Height 5 ft 6 in Weight 161 lb BMI 26.0 Handedness Right Intake Visit Reasons: New Prob - right shoulder pain Intake Note: Patrice is a 78 year old right hand dominant male who presets today for a evaluation of his right shoulder pain, last Kenalog inj 05/23/24. Patient reports he got a injection from rheumatology which didn't give him relief. he mentions that his pain has been getting worse after his injection. Regional Director Of Admissions Services: Regional Director Of Admissions Present ([place] ([id number])) Allergies lisinopril [LISINOPRIL] Allergy (Severe, Verified 07/27/24 09:32) Angioedema LAITH Inhibitors Adverse Reaction (Severe, Verified 07/27/24 09:32) Angioedema HPI HPI New Prob - right shoulder pain: Details: 78-year-old right hand dominant male, who is Malawian speaking, presents in the office today for an evaluation of right shoulder pain. The patient was seen by Dr. Santillan, Rheumatology on 05/23/24 and received a 40 mg kenalog injection in the right shoulder. While in the office today, the patient reports worsening right shoulder pain since receiving a kenalog injection, which provided no relief. The patient has a medical history of seropositive rheumatoid arthritis and diabetes mellitus. The patient is on long-term steroid therapy, prednisone 10 mg PO daily. 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 Osteoporosis Seropositive rheumatoid arthritis History of prostate cancer Arthritis GERD (gastroesophageal reflux disease) COPD (chronic obstructive pulmonary disease) Asthma HTN (hypertension) Surgical History History of open reduction and internal fixation (ORIF) procedure Hx of umbilical hernia repair Hx of eye surgery History of back surgery History of colonoscopy History of removal of cyst History of tonsillectomy and adenoidectomy History of arthroscopy of left shoulder History of prostate surgery Family History Mother History of breast cancer, Onset Age: 87 Father History of asthma Social History Alcohol intake: never Patient Tobacco Use Status: Current everyday Tobacco user Tobacco use type: Cigarette Cigarettes Per Day: 7 Years Smoked: 60 +/- e-Cigarette/Vaping Use: Never Used Current occupational status: retired Current occupation: Rt handed Gender identity: Male Review of Systems Const All systems reviewed & are unremarkable except as noted in HPI and below Physical Exam Vital Signs: BMI result Body Mass Index 26.0 Const General: cooperative, healthy appearing and no acute distress Resp Effort & Inspection: normal respiratory effort and able to speak in complete sentences Cardio Rate: regular rate Peripheral pulses: Peripheral pulses 2+ throughout GI Palpation (GI): Soft to palpation Skin Lesions: no lesions Rashes: no rashes Extrem Other: Right shoulder: Forward flexion and abduction to 80 degrees. Pain with crossbody reach. Unable to perform empty can and drop arm due to weakness. Able to reach the back pocket. NVI. Assessment & Plan Assessment & Plan (1) Rotator cuff arthropathy of left shoulder: Code(s): M12.812 - Other specific arthropathies, not elsewhere classified, left shoulder Category: Medical (2) Arthritis of shoulder region, left: Code(s): M19.012 - Primary osteoarthritis, left shoulder Category: Medical Plan 78-year-old right hand dominant male, who is Mal[place]ian speaking, presents in the office today for an evaluation of right shoulder pain. The patient was seen by Dr. Santillan, Rheumatology on 05/23/24 and received a 40 mg kenalog injection in the right shoulder. While in the office today, the patient reports worsening right shoulder pain since receiving a kenalog injection, which provided no relief. The patient has a medical history of seropositive rheumatoid arthritis and diabetes mellitus. The patient is on long-term steroid therapy, prednisone 10 mg PO daily. We briefly discussed the role of surgical intervention, which would be a reverse total shoulder arthroplasty; however, we would like to defer at this time. Indication would be for pain and not necessarily to improve motion. He will receive a glenohumeral joint injection at the hospital under imaging guidance. He will give a solid 4 weeks after receiving the injection to see if it helps to alleviate any of his pain. He was supplied with my business card today and will contact the office via telephone should she continue to have pain. We may discuss further surgical intervention at that time. Follow-up will be PRN, or sooner if needed. MRI of the right shoulder, obtained on 07/24/24, revealed: 1. Completely torn and retracted supraspinatus tendon with moderate muscle atrophy and mild fatty infiltration. 2. Complete or near-complete tear of the subscapularis tendon with moderate muscle atrophy and mild fatty infiltration. 3. Completely torn and retracted biceps tendon. 4. Superior subluxation of the humeral head with chronic remodeling of the undersurface of the acromion. 5. Mild acromioclavicular and glenohumeral osteoarthritis. Patient Instructions: Scribed by Carol Espitia medical laboratory scientist, for Miracle Mccall PA-C on 07/27/24 at 9:50 am EST. Coding Level of Care Code New Pt Level 4 (28818) Diagnoses Rotator cuff arthropathy of left shoulder M12.812 Arthritis of shoulder region, left M19.012
[2024-07-27 09:33] VITALS: BMI 26.0
== END 2024-07-27 09:59 | disposition home or self-care (01) ==
PROVIDERS: PCP Family Medicine; Visit Provider Physician Assistant
DX: M19.011 Primary osteoarthritis, right shoulder (principal); M12.811 Other specific arthropathies, not elsewhere classified, right shoulder
CPT/HCPCS: 99214

== ENCOUNTER → 2024-07-27 09:24 | Outpatient (BNVA) | payer OTHER, SELFPAY | PROVIDERS: PCP Family Medicine; Visit Provider Physician Assistant | DX: M19.012 Primary osteoarthritis, left shoulder (principal) | CPT/HCPCS: 99212 ==

== ENCOUNTER → 2024-08-10 09:43 | Outpatient (REF) | payer OTHER, SELFPAY ==
--- NOTE | 2024-08-10 09:45 | CA_ITS ---
Transthoracic Echocardiogram Patient (Last, First, Middle): Patrice Jenkins, Gender: Male Date of : 1945 Age: 78 Procedure Date: 08/10/2024 Procedure Type: Transthoracic Echocardiogram Location: OP Height: 167.64 cm Weight: 73.48 kg BSA: 1.83 m2 Heart Rate: bpm BP: 138 / 66 mmHg Graduate Research Assistant: TO Referring MD: Sharon Guardado HAND KISS SETTERSveta Symptoms: I77.810 - Thoracic aortic ectasia Study Quality: Fair Conclusions: - 1. Normal LV ejection fraction of 60 65% with mild LVH with impaired relaxation filling pattern and elevated filling pressures 2. Normal cardiac valvular Dopplers 3. Moderately dilated ascending aorta at 4.7 cm 4. Normal RV systolic pressure 5. No gross pericardial effusion Findings Left Ventricle Normal left ventricular size, thickness, and systolic function. The visually estimated ejection fraction is between 60-65%. Spectral Doppler is indicative of an impaired relaxation filling pattern. E/E prime ratio is >15, consistent with elevated filling pressures. Right Ventricle Normal right ventricular cavity size and systolic function. Atria The left atrium is normal in size. There is no evidence of interatrial shunt. The right atrium is normal in size. Aortic Valve Normal aortic valve structure and function. There is mild calcification of the aortic valve. There is no aortic valve stenosis. There is no aortic valve regurgitation. Mitral Valve Normal mitral valve structure and function. There is trace mitral valve regurgitation. There is no mitral valve stenosis. Pulmonic Valve The pulmonic valve is likely normal. Tricuspid Valve Normal tricuspid valve structure. There is trace tricuspid valve regurgitation. The right ventricular systolic pressure is normal. The right ventricular systolic pressure is 21 mmHg. Normal right atrial pressure. There is no evidence of pulmonary hypertension. Great Vessels The pulmonary artery was not well visualized. There is moderate dilatation of the ascending aorta measuring 4.70 cm. Venous The inferior vena cava is normal in size and collapses greater than 50% with inspiration. Pericardium/Pleural There is no evidence of pericardial effusion. Prior Study Comparison No significant change compared to prior study dated: 08/25/2023. Measurements 2D Linear Measurements IVSd: 1.32 0.6-0.9/0.6-1.0 cm LVIDd: 4.52 3.9-5.3/4.2-5.9 cm LVIDd Index: 2.47 2.4-3.2/2.2-3.1 cm/m2 LVIDs: 3.33 2.0-3.6 cm LVPWd: 1.20 0.7-1.1 cm LA Diam: 3.00 2.7-3.8/3.0-4.0 cm LAIDs Index: 1.64 1.5-2.3 cm/m2 LV Mass: 266.83 67-162/88-224 g LV Mass Index: 145.81 43-95/49-115 g/m2 LVOT Diam: 2.70 3.0+(-)1.3 cm 2D Systolic Function EF 4C: 59.20 >55% EF 2C: 66.90 >55% EF BiP: 62.70 >55% Mitral Valve MV Pk E: 0.56 MV PK A: 0.90 MV Decel Time: 224.00 E/A: 0.60 E'Lateral: 3.70 E'Medial: 2.61 E/E' Med: 21.50 E/E' Lat: 15.20 PHT: 65.00 MVA PHT: 3.38 Decel [place]: 2.51 Aortic Valve AoV Pk Aston: 1.87 AoV Mn Aston: 1.26 AoV VTI: 0.36 AoV Pk Grad: 14.00 Aov Mn Grad: 7.00 RANULFO Cont.VTI: 3.05 LVOT LVOT Pk Aston: 0.77 LVOT Mn Aston: 0.55 LVOT VTI: 0.19 LVOT Pk Grad: 2.00 LVOT Mn Grad: 1.00 LVOT Diam: 2.70 LVOT Area: 5.73 Diastolic Function MV Pk E: 0.56 MV Pk A: 0.90 E/A: 0.60 E'Medial: 2.61 E/E' Med: 21.50 E' Laterial: 3.70 E/E' Lat: 15.20 Right Ventricle TAPSE (mm): 22.00 TVS' Aston: 12.40 Tricuspid Valve TR Pk Aston: 2.10 TR Pk Grad: 18.00 RA Press: 3.00 RVSP: 21.00 Great Vessels Aorta Sinus of Valsalva: 4.56 2.0-3.5 cm Ao Asc: 4.70 2.1-3.4 cm Ao Arch: 3.40 Updated in Other Vendor System with Status of Final Washington Silver MD electronically signed on 08/11/2024 4:25:57 PM with status of Final
== END ==
LOC: HO.CARD 09:43
PROVIDERS: PCP Family Medicine; Visit Provider Nurse Practitioner Family
DX: I77.810 Thoracic aortic ectasia (principal); Q23.1 Congenital insufficiency of aortic valve
CPT/HCPCS: 93306

== ENCOUNTER → 2024-08-10 09:45 | Outpatient (BNV) | payer OTHER, SELFPAY | PROVIDERS: PCP Family Medicine; Visit Provider Internal Medicine Cardiovascular Disease | DX: I35.8 Other nonrheumatic aortic valve disorders (principal); I77.810 Thoracic aortic ectasia | CPT/HCPCS: 93306 ==

== ENCOUNTER 2024-08-16 12:38 | Outpatient (REF) | payer OTHER, SELFPAY ==
--- NOTE | ~2024-08-16 | FL_ITS ---
RIGHT SHOULDER FLUOROSCOPIC GUIDED INTRA-ARTICULAR STEROID INJECTION INDICATIONS: Right shoulder pain. Orthopedic surgery requests intra-articular right shoulder steroid injection PROCEDURE: Risks and benefits and possible complications were discussed with the patient and the consent form was signed. The patient was placed supine on the fluoroscopy table. The right shoulder was prepped and draped in normal sterile fashion. 1% buffered lidocaine was used for anesthesia. A 22-gauge spinal needle was used to access the shoulder joint. Intra-articular position of the needle within the shoulder joint was verified using 3 cc of Omnipaque 300. A total of 40 mg Depo-Medrol and 5 mL 1% lidocaine was then injected into the shoulder joint. The needle was then removed and a Band-Aid was applied to the injection site. The patient tolerated the procedure well. There were no immediate complications. FL/FL arthrogram shoulder RT IMPRESSION: Successful fluoroscopic guided intra-articular right shoulder steroid injection. The procedure was performed by ta Trevino PA-C, and directly supervised by Dr. Baig. Electronically signed by: Nba Baig MD 08/17/2024 04:46 PM EDT
== END 2024-08-16 12:39 | disposition home or self-care (01) ==
LOC: HO.XRAY 12:38
PROVIDERS: PCP Family Medicine; Visit Provider Physician Assistant
DX: M19.011 Primary osteoarthritis, right shoulder (principal)
CPT/HCPCS: 23350; 73040

== ENCOUNTER → 2024-08-16 12:40 | Outpatient (BNV) | payer OTHER, SELFPAY | PROVIDERS: PCP Family Medicine; Visit Provider Radiology Diagnostic Radiology | DX: M25.511 Pain in right shoulder (principal) | CPT/HCPCS: 23350; 73040 ==

== ENCOUNTER 2024-08-23 09:01 | Outpatient (REF) | payer OTHER, SELFPAY ==
[2024-08-23 09:34] LABS: MANUAL DIFF FLAG NO
[2024-08-23 10:33] LABS: Basophils Absolute Auto 0.1 X10*3/uL (0.0-0.2); Basophils Percent Auto 0.5 % (0-2); Eosinophils Absolute Auto 0.1 X10*3/uL (0.0-0.4); Eosinophils Percent Auto 1.4 % (0-4); Hematocrit 34.5 % (42.0-52.0); Hemoglobin 10.9 g/dl (14.0-18.0); Imm Gran Abs Auto 0.09 X10*3/uL (0.00-0.03); Imm Gran Pct Auto 0.9 % (0.0-0.4); Lymphocytes Absolute Auto 2.4 X10*3/uL (1.2-4.9); Lymphocytes Percent Auto 23.1 % (20-40); Mean Corpuscular HGB Conc 31.6 g/dl (31.0-36.0); Mean Corpuscular Hemoglobin 27.5 pg (27.0-33.0); Mean Corpuscular Volume 86.9 fL (80.0-98.0); Mean Platelet Volume 9.6 fL (9.4-12.4); Monocytes Absolute Auto 0.7 X10*3/uL (0.1-1.2); Monocytes Percent Auto 6.8 % (2-11); Neutrophils Absolute Auto 6.9 x10*3/uL (2.0-8.3); Neutrophils Percent Auto 67.3 % (45-73); Platelet Count 218 X10*3/uL (160-400); Red Blood Count 3.97 X10*6/uL (4.60-5.80); Red Cell Distribution Width 19.8 % (11.0-16.0); White Blood Count 10.3 X10*3/uL (4.8-10.8)
[2024-08-23 11:40] LABS: Erythrocyte Sedimentation Rate 2 MM/HR (0-15)
[2024-08-23 11:43] LABS: Parathyroid Hormone Intact 57.3 pg/mL (8.7-77.1)
[2024-08-23 11:59] LABS: Alanine Aminotransferase 42 U/L (0-40); Alkaline Phosphatase 67 U/L (39-117); Anion Gap 11 (12-20); Aspartate Amino Transferase 42 U/L (5-37); Bilirubin Total 0.7 mg/dL (0.0-1.0); Blood Urea Nitrogen 8 mg/dL (9-16); C Reactive Protein < 0.04 mg/dL (< or = 0.50); Calcium 9.8 mg/dL (8.4-10.2); Carbon Dioxide 26 mmol/L (22-29); Chloride 105 mmol/L (96-108); Estimated Glomerular Filt Rate > 60; Glucose Random 123 mg/dL (60-115); Phosphorus 2.9 mg/dL (2.7-4.5); Potassium 3.2 mmol/L (3.3-5.1); Sodium 139 mmol/L (135-145)
[2024-08-23 12:14] LABS: TSH reflex Free T4 1.02 uIU/mL (0.32-4.0); Vitamin D 25-OH Total 35.5 ng/mL (>30)
[2024-08-25 13:33] LABS: Prot Elec - Albumin 3.8 g/dL (3.8-4.8); Prot Elec - Alpha1 0.2 g/dL (0.2-0.3); Prot Elec - Alpha2 0.5 g/dL (0.5-0.9); Prot Elec - Beta 1 0.4 g/dL (0.4-0.6); Prot Elec - Beta 2 0.3 g/dL (0.2-0.5); Prot Elec - Gamma 0.5 g/dL (0.8-1.7); Prot Elec - Total Protein 5.7 g/dL (6.1-8.1)
[2024-08-29 21:18] LABS: Collagen Type I C-Telopeptide 85 pg/mL (see note)
== END 2024-08-23 09:02 | disposition home or self-care (01) ==
LOC: HO.LAB 09:01
PROVIDERS: PCP Family Medicine; Visit Provider Student in an Organized Health Care Education/Training Program
DX: M05.9 Rheumatoid arthritis with rheumatoid factor, unspecified (principal); M81.0 Age-related osteoporosis without current pathological fracture; E55.9 Vitamin D deficiency, unspecified; R05.9 Cough, unspecified
CPT/HCPCS: 36415; 80053; 82306; 82523; 83970; 84100; 84165; 84443; 85025; 85652; 86140

== ENCOUNTER 2024-08-24 12:48 | Outpatient (AMB) | payer OTHER, SELFPAY ==
[2024-08-24 12:54] VITALS: BP 132/70; PULSE 71; O2SAT 97; BMI 26.1
--- NOTE | 2024-08-24 12:54 | MHC.OFFVIS ---
Vital Signs 08/24/24 12:54 Height 5 ft 6 in Weight 161 lb 9.581 oz BMI 26.1 BP 132/70 Blood Pressure Location Lt brachial Position Sitting Pulse 71 Pulse Source Pulse Oximeter Pulse Oximetry (%) 97 Oxygen Delivery Method Room Air Intake Visit Reasons: RA/cm Intake Note: Patient is here to follow up on RA and lab review, he was last seen on 05/23/24. Human Geography Faculty Member Services: Human Geography Faculty Member Offered & Declined Accompanied by: RESIN MAKER Allergies lisinopril [LISINOPRIL] Allergy (Severe, Verified 08/24/24 13:02) Angioedema LAITH Inhibitors Adverse Reaction (Severe, Verified 08/24/24 13:02) Angioedema Medication List - Last Reconciled 08/24/24 by Minnie Santillan MD acetaminophen (Tylenol Extra Strength) 500 mg PO Q6H PRN albuterol sulfate 90 mcg/actuation 2 puffs inhalation Q4H PRN atorvastatin 40 mg PO BEDTIME carvedilol 6.25 mg PO BID 90 days cholecalciferol (vitamin D3) 25 mcg PO DAILY docusate sodium (Colace) 100 mg PO BID fluticasone propionate 220 mcg/actuation 2 puffs inhalation BID folic acid 1 mg PO QAM hydrochlorothiazide 12.5 mg PO DAILY icosapent ethyl grams PO loteprednol etabonate 0.5% 1 drp ophthalmic (eye) TID melatonin 3 mg PO BEDTIME PRN metformin ER 500 mg PO DAILY olopatadine 0.1% 1 drp ophthalmic (eye) QID omeprazole 20 mg PO QAM oxycodone 5 mg PO Q12H PRN polyethylene glycol 3350 (Miralax) 17 grams PO DAILY PRN prednisone 10 mg PO DAILY Rasuvo (PF) (methotrexate (PF)) 25 mg (0.5 mL) subcut QWEEK NS sennosides 17.2 mg PO BEDTIME PRN tocilizumab (Actemra ACTPen) INJECT 162MG (1 PEN) UNDER THE SKIN EVERY 2 WEEKS umeclidinium 62.5 mcg/actuation (Incruse Ellipta) 1 inh inhalation BEDTIME HPI Comments Details: 78yoM presents for follow up seropositive rheumatoid arthritis (RF++ CCP++) who presents for follow-up. On Rasuvo 25 mg every week and Actemra 162 mg every other week. And prednisone 10 mg daily. Patient states that he continues to have right shoulder pain. I did a right shoulder MRI which showed a complete tear of rotator cuff. I referred patient to orthopedics. He had an ultrasound guided shoulder injection on 08/16. He states that it was not helpful. He was advised by Orthopedics to re-evaluate in one-month. states that he feels well otherwise. He denies any recent illnesses. 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 Osteoporosis Seropositive rheumatoid arthritis History of prostate cancer Arthritis GERD (gastroesophageal reflux disease) COPD (chronic obstructive pulmonary disease) Asthma HTN (hypertension) Surgical History History of open reduction and internal fixation (ORIF) procedure Hx of umbilical hernia repair Hx of eye surgery History of back surgery History of colonoscopy History of removal of cyst History of tonsillectomy and adenoidectomy History of arthroscopy of left shoulder History of prostate surgery Family History Mother History of breast cancer, Onset Age: 87 Father History of asthma Social History Alcohol intake: never Patient Tobacco Use Status: Current everyday Tobacco user Tobacco use type: Cigarette Cigarettes Per Day: 7 Years Smoked: 60 +/- e-Cigarette/Vaping Use: Never Used Current occupational status: retired Current occupation: Rt handed Gender identity: Male Review of Systems [facility] [place] pain, Denies arthralgias, Reports limited range of motion and Denies stiffness Physical Exam Vital Signs: Last Vital Signs Pulse 71 08/24/24 12:54 BP 132/70 08/24/24 12:54 Pulse Ox 97 08/24/24 12:54 Oxygen Delivery Method Room Air 08/24/24 12:54 BMI result Body Mass Index 26.1 Const Other: Mildly cushingoid General: cooperative, healthy appearing and comfortable Nutritional Appearance: average body habitus Orientation/consciousness: patient oriented x3 Limitations: ambulation with cane HEENT Head: Yes normocephalic and Yes atraumatic Resp Effort & Inspection: normal respiratory effort and able to speak in complete sentences Cardio Rhythm: regular rhythm Skin General skin exam: no rashes or lesions noted Neuro General: patient oriented x3 Extrem Other: Subtle boggy swelling of right ulnar styloid but no erythema warmth or tenderness Significantly reduced right shoulder abduction No active synovitis otherwise Bilateral 3+ pitting edema of the legs all the way up to the mid palmer Assessment & Plan Assessment & Plan (1) Seropositive rheumatoid arthritis: Comment: ++RF++CCP Plaquenil - June 2016- July 2020 Oral methotrexate 2017, GI upset Arava- July 2018- November 2018, ineffective Xeljanz- June 2018- November 2018, unclear what happened Sulfasalazine- November 2018- July 2020 Rasuvo- March 2020- present Humira -August 2021- August 2022 (secondary nonresponse) Actemra September 2022 effective Prednisone throughout Code(s): M05.9 - Rheumatoid arthritis with rheumatoid factor, unspecified Category: Medical Plan: This is a 78-year-old male with seropositive RA who presents for follow up. On Actemra 162 mg every other week, Rasuvo 25 mg subcutaneously once weekly, and prednisone 10 mg daily. He is doing quite well on this combination with no active synovitis. Inflammatory markers are normal. Medications are well tolerated with no side effects. His right shoulder symptomatology is related to complete rotator cuff tear. There were multiple attempts to try and for the prednisone however lowering it below 10 mg results in a flare. I would like to restart hydroxychloroquine, there was significant delay to get an appointment with Ophthalmology. He was finally cleared by Ophthalmology to start hydroxychloroquine. Start hydroxychloroquine 400 mg daily x5 days a week and 200 mg daily x2 days a week Continue Rasuvo 25 mg weekly + Actemra every other week. Prednisone 10 mg daily. Most recent set of labs showed mild transaminitis. Patient has been on methotrexate for years with normal liver enzymes. No recent history of infection or alcohol consumption. Repeat LFTs in 1 month. If still elevated, I will lower methotrexate Chest CTA 10/2022 showed no evidence of ILD T-spot and Hepatitis panel -ve 11/2023,. 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 Advised on the risk factor of steroids including but not limited to gastric irritation, elevated blood pressure, elevated blood sugar, weight gain, osteoporosis, risk of GI hemorrhage, cushingoid features. Patient was advised to follow-up with her PCP routinely regarding monitoring blood pressure and blood sugar. (3) Osteoporosis: Code(s): M81.0 - Age-related osteoporosis without current pathological fracture Category: Medical Qualifiers: Osteoporosis type: age-related Presence of current pathological fracture: without current pathological fracture Qualified Code(s): M81.0 - Age-related osteoporosis without current pathological fracture Plan: DEXA from November 2019 with osteopenia but high FRAX score. Patient started on Fosamax in November 2019, tolerating medications. His repeat DEXA scan in 2021 shows mild insignificant improvement.? Alendronate was stopped sometime 2021 in preparation for his dental implants. Patient already has his dental implants. Fosamax restarted 09/2022. Discontinue 11/2023 due to GI upset.. Repeat DEXA in 03/2024 showed osteopenia but continues to have a high FRAX score. Patient needs to be started on antiresorptive therapy. I think Reclast infusion would be appropriate. I will discuss further next visit (4) Tobacco abuse disorder: Code(s): Z72.0 - Tobacco use Category: Medical Plan: Patient has been smoking since age 16. Currently he smokes half a pack a day. He denies any respiratory symptoms. Chest CTA showed no evidence of lung nodules or fibrosis. I discussed with patient the association of smoking with high rheumatoid arthritis disease activity. Patient continues to smoke (5) Encounter for monitoring tocilizumab therapy: Code(s): Z51.81 - Encounter for therapeutic drug level monitoring; Z79.899 - Other intermodal dispatcher (current) drug therapy Category: Medical Plan: Side effects of tocilizumab were discussed with the patient in detail including increased risk of infection, ?possible increased risk of solid and skin tumors. Patient fully aware. Advised patient to seek medical care vance if patient has an infection and advised patient to stop the medication until the infection is resolved.? Side effects of methotrexate were discussed with the patient in detail including oral ulcers, elevated LFTs, abdominal discomfort, and possible pancytopenia is. Will monitor patient for side effects with frequent lab work. Advised patient to take folic acid daily to prevent complications of methotrexate. Plan I spent 45 minutes reviewing patient's chart, evaluating patient, ordering diagnostic workup, counseling patient and documenting in the chart Orders: Orders Complete Blood Count Auto Diff 3 Months M05.9 - Rheumatoid arthritis with rheumatoid factor, unspecified Comprehensive Met. Panel 3 Months M05.9 - Rheumatoid arthritis with rheumatoid factor, unspecified Erythrocyte Sedimentation Rate 3 Months M05.9 - Rheumatoid arthritis with rheumatoid factor, unspecified Comprehensive Met. Panel 1 Month R74.01 - Elevation of levels of liver transaminase levels C Reactive Protein 3 Months M05.9 - Rheumatoid arthritis with rheumatoid factor, unspecified Medications: New hydroxychloroquine Take 1 tab twice daily x5 days a week and 1 tab daily x2 days a week 144 tabs 0RF M05.9 - Rheumatoid arthritis with rheumatoid factor, unspecified Changed From prednisone Take 2 tabs daily for 1 week then remain on 1 tab daily 90 tabs 0RF To prednisone 10 mg PO DAILY 90 tabs 0RF Coding Level of Care Code Est Pt Level 4 (75510) Complex EM visit Add On G2211 Diagnoses Seropositive rheumatoid arthritis M05.9 assisted systemic steroid user Z79.52 Age-related osteoporosis without current pathological fracture M81.0 Osteoporosis type: age-related Presence of current pathological fracture: without current pathological fracture Tobacco abuse disorder Z72.0 Encounter for monitoring tocilizumab therapy Z51.81; Z79.899
== END 2024-08-24 13:25 | disposition home or self-care (01) ==
PROVIDERS: PCP Family Medicine; Visit Provider Student in an Organized Health Care Education/Training Program
DX: M05.79 Rheumatoid arthritis with rheumatoid factor of multiple sites without organ or systems involvement (principal); Z79.52 Long term (current) use of systemic steroids; M81.0 Age-related osteoporosis without current pathological fracture; Z72.0 Tobacco use; Z51.81 Encounter for therapeutic drug level monitoring; Z79.899 Other long term (current) drug therapy
CPT/HCPCS: 99215; G2211

== ENCOUNTER → 2024-08-24 12:48 | Outpatient (BNVA) | payer OTHER, SELFPAY | PROVIDERS: PCP Family Medicine; Visit Provider Student in an Organized Health Care Education/Training Program | DX: M05.9 Rheumatoid arthritis with rheumatoid factor, unspecified (principal); M81.0 Age-related osteoporosis without current pathological fracture; R74.01 Elevation of levels of liver transaminase levels; F17.210 Nicotine dependence, cigarettes, uncomplicated; Z51.81 Encounter for therapeutic drug level monitoring; Z79.52 Long term (current) use of systemic steroids; Z79.899 Other long term (current) drug therapy | CPT/HCPCS: 99212 ==

== ENCOUNTER 2024-09-15 08:00 | Outpatient (REF) | payer OTHER, SELFPAY ==
[2024-09-15 11:08] LABS: MANUAL DIFF FLAG NO
[2024-09-15 11:23] LABS: Basophils Percent Auto 0.4 % (0-2); Eosinophils Absolute Auto 0.2 X10*3/uL (0.0-0.4); Eosinophils Percent Auto 1.5 % (0-4); Hematocrit 35.8 % (42.0-52.0); Imm Gran Abs Auto 0.04 X10*3/uL (0.00-0.03); Imm Gran Pct Auto 0.4 % (0.0-0.4); Lymphocytes Absolute Auto 3.8 X10*3/uL (1.2-4.9); Lymphocytes Percent Auto 33.7 % (20-40); Mean Corpuscular HGB Conc 30.7 g/dl (31.0-36.0); Mean Corpuscular Volume 87.7 fL (80.0-98.0); Mean Platelet Volume 9.9 fL (9.4-12.4); Monocytes Absolute Auto 0.9 X10*3/uL (0.1-1.2); Monocytes Percent Auto 8.1 % (2-11); Neutrophils Absolute Auto 6.3 x10*3/uL (2.0-8.3); Neutrophils Percent Auto 55.9 % (45-73); Platelet Count 202 X10*3/uL (160-400); Red Blood Count 4.08 X10*6/uL (4.60-5.80); Red Cell Distribution Width 19.5 % (11.0-16.0); White Blood Count 11.3 X10*3/uL (4.8-10.8)
[2024-09-15 12:05] LABS: Folate 10.1 ng/mL (> or = 4.0); Vitamin B12 414 pg/mL (200-900)
[2024-09-15 12:17] LABS: Creatinine Urine 107.16 mg/dL; Microalbum/Creatinine Ratio Ur 18.6 ug/mg cr (<30)
[2024-09-15 12:34] LABS: Alanine Aminotransferase 33 U/L (0-40); Alkaline Phosphatase 64 U/L (39-117); Anion Gap 10 (12-20); Aspartate Amino Transferase 33 U/L (5-37); Bilirubin Direct 0.3 mg/dL (0.0-0.5); Bilirubin Total 0.8 mg/dL (0.0-1.0); Blood Urea Nitrogen 10 mg/dL (9-16); Carbon Dioxide 28 mmol/L (22-29); Chloride 102 mmol/L (96-108); Cholesterol 103 mg/dL (<200); Estimated Glomerular Filt Rate > 60; Glucose Random 88 mg/dL (60-115); HDL Cholesterol 38 mg/dL (>40); Iron 25 mcg/dL (45-160); LDL Cholesterol Calculated 39 mg/dL (<100); Percent Iron Saturation 8 % (15-50); Potassium 3.5 mmol/L (3.3-5.1); Sodium 136 mmol/L (135-145); Total Iron Binding Capacity 295 mcg/dL (228-428); Total Protein 5.8 g/dL (6.5-8.0); Triglycerides 134 mg/dL (<150); Unsaturated Iron Binding 270 ug/dL
[2024-09-15 13:00] LABS: Ferritin 12 ng/mL (20-250); TSH reflex Free T4 1.48 uIU/mL (0.32-4.0)
== END 2024-09-15 08:01 | disposition home or self-care (01) ==
LOC: HO.HHCL 08:00
PROVIDERS: Family Medicine; Visit Provider Student in an Organized Health Care Education/Training Program
DX: D64.9 Anemia, unspecified (principal); R74.01 Elevation of levels of liver transaminase levels; E11.9 Type 2 diabetes mellitus without complications; E78.5 Hyperlipidemia, unspecified
CPT/HCPCS: 36415; 80053; 80061; 80076; 82043; 82248; 82570; 82607; 82728; 82746; 83540; 84443; 85025

== ENCOUNTER 2024-10-09 07:59 | Outpatient (REF) | payer OTHER, SELFPAY ==
[2024-10-09 12:09] LABS: Anion Gap 14 (12-20); Blood Urea Nitrogen 10 mg/dL (9-16); Calcium 10.1 mg/dL (8.4-10.2); Carbon Dioxide 27 mmol/L (22-29); Chloride 103 mmol/L (96-108); Estimated Glomerular Filt Rate > 60; Glucose Random 80 mg/dL (60-115); Potassium 3.7 mmol/L (3.3-5.1); Sodium 140 mmol/L (135-145)
[2024-10-09 12:43] LABS: Alanine Aminotransferase 33 U/L (0-40); Albumin Level 4.2 g/dL (3.5-5.0); Alkaline Phosphatase 48 U/L (39-117); Aspartate Amino Transferase 33 U/L (5-37); Bilirubin Direct 0.3 mg/dL (0.0-0.5); Bilirubin Total 0.9 mg/dL (0.0-1.0); Cholesterol 104 mg/dL (<200); HDL Cholesterol 37 mg/dL (>40); Iron 48 mcg/dL (45-160); LDL Cholesterol Calculated 43 mg/dL (<100); Percent Iron Saturation 15 % (15-50); Total Iron Binding Capacity 331 mcg/dL (228-428); Total Protein 6.3 g/dL (6.5-8.0); Triglycerides 122 mg/dL (<150); Unsaturated Iron Binding 283 ug/dL
[2024-10-09 12:46] LABS: Ferritin 18 ng/mL (20-250); TSH reflex Free T4 2.09 uIU/mL (0.32-4.0)
== END 2024-10-09 08:00 | disposition home or self-care (01) ==
LOC: HO.HHCL 07:59
PROVIDERS: Visit Provider Family Medicine
DX: E11.9 Type 2 diabetes mellitus without complications (principal); Z13.89 Encounter for screening for other disorder
CPT/HCPCS: 36415; 80048; 80061; 80076; 82728; 83540; 84443

== ENCOUNTER 2024-11-03 08:36 | Outpatient (REF) | payer OTHER, SELFPAY ==
[2024-11-03 08:56] LABS: MANUAL DIFF FLAG NO
[2024-11-03 09:07] LABS: Basophils Absolute Auto 0.1 X10*3/uL (0.0-0.2); Basophils Percent Auto 0.5 % (0-2); Eosinophils Absolute Auto 0.3 X10*3/uL (0.0-0.4); Eosinophils Percent Auto 2.7 % (0-4); Hematocrit 34.8 % (42.0-52.0); Hemoglobin 10.7 g/dl (14.0-18.0); Imm Gran Abs Auto 0.03 X10*3/uL (0.00-0.03); Imm Gran Pct Auto 0.3 % (0.0-0.4); Lymphocytes Absolute Auto 3.5 X10*3/uL (1.2-4.9); Lymphocytes Percent Auto 37.2 % (20-40); Mean Corpuscular HGB Conc 30.7 g/dl (31.0-36.0); Mean Corpuscular Hemoglobin 26.2 pg (27.0-33.0); Mean Corpuscular Volume 85.1 fL (80.0-98.0); Mean Platelet Volume 9.7 fL (9.4-12.4); Monocytes Absolute Auto 0.9 X10*3/uL (0.1-1.2); Neutrophils Absolute Auto 4.7 x10*3/uL (2.0-8.3); Neutrophils Percent Auto 50.3 % (45-73); Platelet Count 188 X10*3/uL (160-400); Red Blood Count 4.09 X10*6/uL (4.60-5.80); Red Cell Distribution Width 19.5 % (11.0-16.0); White Blood Count 9.4 X10*3/uL (4.8-10.8)
[2024-11-03 09:40] LABS: Alanine Aminotransferase 27 U/L (0-40); Albumin Level 4.1 g/dL (3.5-5.0); Alkaline Phosphatase 56 U/L (39-117); Anion Gap 9 (12-20); Aspartate Amino Transferase 31 U/L (5-37); Bilirubin Total 0.8 mg/dL (0.0-1.0); Blood Urea Nitrogen 9 mg/dL (9-16); C Reactive Protein < 0.04 mg/dL (< or = 0.50); Calcium 8.9 mg/dL (8.4-10.2); Carbon Dioxide 26 mmol/L (22-29); Chloride 106 mmol/L (96-108); Estimated Glomerular Filt Rate > 60; Glucose Random 138 mg/dL (60-115); Potassium 3.2 mmol/L (3.3-5.1); Sodium 138 mmol/L (135-145); Total Protein 6.2 g/dL (6.5-8.0)
[2024-11-03 09:43] LABS: Erythrocyte Sedimentation Rate 2 MM/HR (0-15)
== END 2024-11-03 08:37 | disposition home or self-care (01) ==
LOC: HO.LAB 08:36
PROVIDERS: PCP Family Medicine; Visit Provider Student in an Organized Health Care Education/Training Program
DX: M05.9 Rheumatoid arthritis with rheumatoid factor, unspecified (principal)
CPT/HCPCS: 36415; 80053; 85025; 85652; 86140

== ENCOUNTER 2024-11-09 10:51 | Outpatient (AMB) | payer OTHER, SELFPAY ==
--- NOTE | 2024-11-09 10:51 | A.OFFVIS_ITS ---
Vital Signs 11/09/24 10:52 Height 5 ft 6 in Weight 162 lb 4.163 oz BMI 26.2 BP 132/70 Blood Pressure Location Lt brachial Position Sitting Pulse 73 Pulse Source Pulse Oximeter Intake Visit Reasons: RA Intake Note: Patient present today for RA office visit. 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 Accompanied by: SEWING MACHINES SALESPERSON Allergies lisinopril [LISINOPRIL] Allergy (Severe, Verified 11/09/24 10:57) Angioedema LAITH Inhibitors Adverse Reaction (Severe, Verified 11/09/24 10:57) Angioedema Medication List - Last Reconciled 11/09/24 by Minnie Santillan MD acetaminophen (Tylenol Extra Strength) 500 mg PO Q6H PRN albuterol sulfate 90 mcg/actuation 2 puffs inhalation Q4H PRN atorvastatin 40 mg PO BEDTIME carvedilol 6.25 mg PO BID 90 days cholecalciferol (vitamin D3) 25 mcg PO DAILY docusate sodium (Colace) 100 mg PO BID fluticasone propionate 220 mcg/actuation 2 puffs inhalation BID folic acid 1 mg PO QAM hydrochlorothiazide 12.5 mg PO DAILY hydroxychloroquine orally; Take 1 tab twice daily x5 days a week and 1 tab daily x2 days a week icosapent ethyl grams PO loteprednol etabonate 0.5% 1 drp ophthalmic (eye) TID melatonin 3 mg PO BEDTIME PRN metformin ER 500 mg PO DAILY olopatadine 0.1% 1 drp ophthalmic (eye) QID omeprazole 20 mg PO QAM oxycodone 5 mg PO Q12H PRN polyethylene glycol 3350 (Miralax) 17 grams PO DAILY PRN prednisone 10 mg PO DAILY Rasuvo (PF) (methotrexate (PF)) 25 mg (0.5 mL) subcut QWEEK NS sennosides 17.2 mg PO BEDTIME PRN tocilizumab (Actemra ACTPen) INJECT 162MG (1 PEN) UNDER THE SKIN EVERY 2 WEEKS umeclidinium 62.5 mcg/actuation (Incruse Ellipta) 1 inh inhalation BEDTIME HPI Comments Details: 79yoM presents for follow up seropositive rheumatoid arthritis (RF++ CCP++) who presents for follow-up. On Rasuvo 25 mg every week hydroxychloroquine and Actemra 162 mg every other week. And prednisone 10 mg daily. He states that he has been doing well overall, denies any joint pain or swelling except for right shoulder pain and significantly limited range of motion, he has an appointment with Orthopedics next week, he is hopeful that surgery will be offered. [facility] Medical History Abscess, umbilical Ascending aorta dilation Epidermal inclusion cyst Abscess [facility] systemic steroid user Osteoporosis Seropositive rheumatoid arthritis History of prostate cancer Arthritis GERD (gastroesophageal reflux disease) COPD (chronic obstructive pulmonary disease) Asthma HTN (hypertension) Surgical History History of open reduction and internal fixation (ORIF) procedure Hx of umbilical hernia repair Hx of eye surgery History of back surgery History of colonoscopy History of removal of cyst History of tonsillectomy and adenoidectomy History of arthroscopy of left shoulder History of prostate surgery Family History Mother History of breast cancer, Onset Age: 87 Father History of asthma Social History Alcohol intake: never Patient Tobacco Use Status: Current everyday Tobacco user Tobacco use type: Cigarette Cigarettes Per Day: 7 Years Smoked: 60 +/- e-Cigarette/Vaping Use: Never Used Current occupational status: retired Current occupation: Rt handed Gender identity: Male Review of Systems [place] Denies arthralgias, Reports limited range of motion and Denies stiffness Physical Exam Vital Signs: Last Vital Signs Pulse 73 11/09/24 10:52 BP 132/70 11/09/24 10:52 BMI result Body Mass Index 26.2 Const Other: Mildly cushingoid General: cooperative, healthy appearing and comfortable Nutritional Appearance: average body habitus Orientation/consciousness: patient oriented x3 Limitations: ambulation with cane HEENT Head: Yes normocephalic and Yes atraumatic Resp Effort & Inspection: normal respiratory effort and able to speak in complete sentences Cardio Rhythm: regular rhythm Skin General skin exam: no rashes or lesions noted Neuro General: patient oriented x3 Extrem Other: Subtle boggy swelling of right ulnar styloid but no erythema warmth or tenderness Significantly reduced right shoulder abduction No active synovitis otherwise Trace pitting edema today Assessment & Plan Assessment & Plan (1) Seropositive rheumatoid arthritis: Comment: ++RF++CCP Plaquenil - June 2016- July 2020 Oral methotrexate 2017, GI upset Arava- July 2018- November 2018, ineffective Xeljanz- June 2018- November 2018, unclear what happened Sulfasalazine- November 2018- July 2020 Rasuvo- March 2020- present Humira -August 2021- August 2022 (secondary nonresponse) Actemra September 2022 effective Prednisone throughout Hydroxychloroquine added 08/2024 Code(s): M05.9 - Rheumatoid arthritis with rheumatoid factor, unspecified Category: Medical Plan: This is a 79-year-old male with seropositive RA who presents for follow up. On Actemra 162 mg every other week, hydroxychloroquine Rasuvo 25 mg subcutaneously once weekly, and prednisone 10 mg daily. He is doing quite well on this combination with no active synovitis. Inflammatory markers are normal. Medications are well tolerated with no side effects. There were multiple attempts to try and for the prednisone however lowering it below 10 mg results in a flare. I started hydroxychloroquine last visit in an attempt to lower prednisone, patient states that he will see orthopedics next week and hoping that right shoulder replacement surgery would be offered. Under normal circumstances I would have started tapering his prednisone to 7.5 mg daily for up one-month then lower it further to 5 mg daily but if surgery is planned soon I would like to keep his inflammatory arthritis fully controlled. At This time I will keep prednisone at 10 mg a day Continue hydroxychloroquine 200 mg Twice daily x5 days a week and 200 mg daily x2 days a week Chest CTA 10/2022 showed no evidence of ILD T-spot and Hepatitis panel -ve 11/2023,. 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 Advised on the risk factor of steroids including but not limited to gastric irritation, elevated blood pressure, elevated blood sugar, weight gain, osteoporosis, risk of GI hemorrhage, cushingoid features. Patient was advised to follow-up with her PCP routinely regarding monitoring blood pressure and blood sugar. (3) Osteoporosis: Code(s): M81.0 - Age-related osteoporosis without current pathological fracture Category: Medical Qualifiers: Osteoporosis type: age-related Presence of current pathological fracture: without current pathological fracture Qualified Code(s): M81.0 - Age- related osteoporosis without current pathological fracture Plan: DEXA from November 2019 with osteopenia but high FRAX score. Patient started on Fosamax in November 2019, tolerating medications. His repeat DEXA scan in 2021 shows mild insignificant improvement.? Alendronate was stopped sometime 2021 in preparation for his dental implants. Patient already has his dental implants. Fosamax restarted 09/2022. Discontinue 11/2023 due to GI upset.. Repeat DEXA in 03/2024 showed osteopenia but continues to have a high FRAX score. I think Reclast infusion would be appropriate, to be discussed further next visit (4) Tobacco abuse disorder: Code(s): Z72.0 - Tobacco use Category: Medical Plan: Patient has been smoking since age 16. Currently he smokes half a pack a day. He denies any respiratory symptoms. Chest CTA showed no evidence of lung nodules or fibrosis. I discussed with patient the association of smoking with high rheumatoid arthritis disease activity. Patient continues to smoke (5) Encounter for monitoring tocilizumab therapy: Code(s): Z51.81 - Encounter for therapeutic drug level monitoring; Z79.899 - Other alf (current) drug therapy Category: Medical Plan: Side effects of tocilizumab were discussed with the patient in detail including increased risk of infection, ?possible increased risk of solid and skin tumors. Patient fully aware. Advised patient to seek medical care vance if patient has an infection and advised patient to stop the medication until the infection is resolved.? Side effects of methotrexate were discussed with the patient in detail including oral ulcers, elevated LFTs, abdominal discomfort, and possible pancytopenia is. Will monitor patient for side effects with frequent lab work. Advised patient to take folic acid daily to prevent complications of methotrexate. (6) Preoperative examination: Code(s): Z01.818 - Encounter for other preprocedural examination Category: Medical Plan: From Rheumatology standpoint, his RA is well controlled and patient can proceed with shoulder replacement provided PCP and cardiology clearance. Hold Actemra 2 weeks before the procedure hold Rasuvo 1 week before the procedure. Both can be resumed 1-2 weeks postop if wound is healing reasonably well with no signs of infection Hydroxychloroquine and prednisone are to be continued all through Patient will need stress dose steroids perioperatively (per anesthesiologist) (7) Iron deficiency anemia: Code(s): D50.9 - Iron deficiency anemia, unspecified Category: Medical Qualifiers: Iron deficiency anemia type: other iron deficiency Qualified Code(s): D50.8 - Other iron deficiency anemias Plan: Follow-up with PCP Plan I spent 45 minutes reviewing patient's chart, evaluating patient, ordering diagnostic workup, counseling patient and documenting in the chart Orders: Orders Complete Blood Count Auto Diff 4 Months M05.9 - Rheumatoid arthritis with rheumatoid factor, unspecified, Z79.52 - [facility] (current) use of systemic steroids C Reactive Protein 4 Months M05.9 - Rheumatoid arthritis with rheumatoid factor, unspecified, Z79.52 - [facility] (current) use of systemic steroids Comprehensive Met. 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
[2024-11-09 10:52] VITALS: BP 132/70; PULSE 73; BMI 26.2
== END 2024-11-09 11:42 | disposition home or self-care (01) ==
PROVIDERS: PCP Family Medicine; Visit Provider Student in an Organized Health Care Education/Training Program
DX: M05.79 Rheumatoid arthritis with rheumatoid factor of multiple sites without organ or systems involvement (principal); Z79.52 Long term (current) use of systemic steroids; M81.0 Age-related osteoporosis without current pathological fracture; Z72.0 Tobacco use; Z51.81 Encounter for therapeutic drug level monitoring; Z79.899 Other long term (current) drug therapy; Z01.818 Encounter for other preprocedural examination; D50.8 Other iron deficiency anemias
CPT/HCPCS: 99215; G2211

== ENCOUNTER → 2024-11-09 10:51 | Outpatient (BNVA) | payer OTHER, SELFPAY | PROVIDERS: PCP Family Medicine; Visit Provider Student in an Organized Health Care Education/Training Program | DX: Z01.818 Encounter for other preprocedural examination (principal); M05.9 Rheumatoid arthritis with rheumatoid factor, unspecified; M81.0 Age-related osteoporosis without current pathological fracture; Z72.0 Tobacco use; D50.8 Other iron deficiency anemias; Z51.81 Encounter for therapeutic drug level monitoring; Z79.899 Other long term (current) drug therapy; Z79.52 Long term (current) use of systemic steroids | CPT/HCPCS: 99212 ==

== ENCOUNTER 2024-11-10 08:51 | Outpatient (AMB) | payer OTHER, SELFPAY ==
[2024-11-10 09:17] VITALS: BP 122/52; PULSE 70; BMI 25.7
--- NOTE | 2024-11-10 09:17 | MHC.OFFVIS ---
Vital Signs 11/10/24 09:17 Height 5 ft 6 in Weight 159 lb 2.78 oz BMI 25.7 BP 122/52 L Blood Pressure Location Lt brachial Position Sitting Pulse 70 Pulse Source Monitor Intake Visit Reasons: 1 year f/u Transportation Refrigeration Technician Required: Yes Transportation Refrigeration Technician Language: Tajik Allergies lisinopril [LISINOPRIL] Allergy (Severe, Verified 11/10/24 09:23) Angioedema LAITH Inhibitors Adverse Reaction (Severe, Verified 11/10/24 09:23) Angioedema Medication List - Last Reconciled 11/10/24 by DEBBIE Mckenzie acetaminophen (Tylenol Extra Strength) 500 mg PO Q6H PRN albuterol sulfate 90 mcg/actuation 2 puffs inhalation Q4H PRN atorvastatin 40 mg PO BEDTIME carvedilol 6.25 mg PO BID 90 days cholecalciferol (vitamin D3) 25 mcg PO DAILY docusate sodium (Colace) 100 mg PO BID fluticasone furoate 200 mcg/actuation (Arnuity Ellipta) 1 inh inhalation DAILY fluticasone propionate 220 mcg/actuation 2 puffs inhalation BID folic acid 1 mg PO QAM hydrochlorothiazide 12.5 mg PO DAILY hydroxychloroquine orally; Take 1 tab twice daily x5 days a week and 1 tab daily x2 days a week icosapent ethyl grams PO loteprednol etabonate 0.5% 1 drp ophthalmic (eye) TID melatonin 3 mg PO BEDTIME PRN metformin ER 500 mg PO DAILY olopatadine 0.1% 1 drp ophthalmic (eye) QID omeprazole 20 mg PO QAM oxycodone 5 mg PO Q12H PRN polyethylene glycol 3350 (Miralax) 17 grams PO DAILY PRN prednisone 10 mg PO DAILY Rasuvo (PF) (methotrexate (PF)) 25 mg (0.5 mL) subcut QWEEK NS sennosides 17.2 mg PO BEDTIME PRN tocilizumab (Actemra ACTPen) INJECT 162MG (1 PEN) UNDER THE SKIN EVERY 2 WEEKS umeclidinium 62.5 mcg/actuation (Incruse Ellipta) 1 inh inhalation BEDTIME HPI HPI 1 year f/u: Details: Patrice is a 79-year-old male with past medical history of hypertension, smoking, rheumatoid arthritis, bicuspid aortic valve without stenosis or regurgitation, dilated ascending aorta who presents for follow-up. Today he reports that he has been doing well since his last visit in May. He says that his prior leg edema has resolved. His breathing has been comfortable with no recent change. No PND, orthopnea, cough, recent illness. He is reporting some anterior chest discomfort, vaguely described. It does occur randomly when he is at rest. No palpitations, presyncope, syncope, falls. He is taking his meds as directed. He ambulates with a cane. He tells me that he is seeing the orthopedic doctor next week to discuss shoulder replacement. Family member present. Certified arch pad cementer used. 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 Osteoporosis Seropositive rheumatoid arthritis History of prostate cancer Arthritis GERD (gastroesophageal reflux disease) COPD (chronic obstructive pulmonary disease) Asthma HTN (hypertension) Surgical History History of open reduction and internal fixation (ORIF) procedure Hx of umbilical hernia repair Hx of eye surgery History of back surgery History of colonoscopy History of removal of cyst History of tonsillectomy and adenoidectomy History of arthroscopy of left shoulder History of prostate surgery Family History Mother History of breast cancer, Onset Age: 87 Father History of asthma Social History Alcohol intake: never Patient Tobacco Use Status: Current everyday Tobacco user Tobacco use type: Cigarette Cigarettes Per Day: 7 Years Smoked: 60 +/- e-Cigarette/Vaping Use: Never Used Current occupational status: retired Current occupation: Rt handed Gender identity: Male Review of Systems Const All systems reviewed & are unremarkable except as noted in HPI and below ENT Denies dizziness Card Reports chest pain, Reports chest pain at rest, Denies chest pain with activity, Denies rapid heart rate, Denies pedal edema, Denies edema, Denies leg edema, Denies lightheadedness, Denies palpitations, Denies dyspnea, Denies dyspnea on exertion and Denies orthopnea Resp Denies cough, Denies dyspnea and Denies dyspnea on exertion GI Denies hematochezia and Denies change in stool character Musc Details: walks slow with cane Reports abnormal gait, Denies limited range of motion, Denies muscle cramps, Denies muscle weakness, Denies numbness, Denies radiating pain into limb, Denies stiffness and Denies tingling Neuro Reports abnormal gait, Denies dizziness, Denies numbness and Denies tingling Endo Denies palpitations Physical Exam Vital Signs: Last Vital Signs Pulse 70 11/10/24 09:17 BP 122/52 L 11/10/24 09:17 BMI result Body Mass Index 25.7 Const Other: appears older than stated age General: cooperative, comfortable and no acute distress Orientation/consciousness: patient oriented x3 Neck Neck: Yes normal visual inspection Resp Effort & Inspection: normal respiratory effort Auscultation: clear to auscultation bilaterally, no rales, no rhonchi and no wheezes Cardio Jugular venous distension: no JVD Rate: regular rate Rhythm: regular rhythm Heart sounds: S1 normal heart sound present, S2 normal heart sound present, no murmurs and no rubs Neuro General: patient oriented x3 Extrem General: Yes normal to inspection and No no pedal edema Psych Appearance: grossly normal Mental Status: mental status grossly normal Speech and movement: Normal speech and movement present Office Procedures EKG Details: Today, read by me, SR with PACs and fusion beats, nonspecific ST/ T wave abn, rate 70, QTc 438ms [id number], Complete Assessment & Plan Assessment & Plan (1) Ascending aorta dilatation: Code(s): I77.810 - Thoracic aortic ectasia Category: Medical Plan: Hx of dilated ascending aorta. Echo done 08/28/22 shows moderate dilation of ascending aorta at 4.6 cm. He then had a CTA of chest showing sinus of valsalva dilated at 4.7 cm and ascending aorta dilated at 4.2 cm. Repeat echocardiogram done 08/25/2023 shows EF 60-65%, dilated ascending aorta 4.6 cm. Last echo done 08/10/2024 shows EF 60-65%, dilated ascending aorta 4.7 cm. Today he reports feeling well overall. He does have discomfort in his right shoulder and tells me he is hoping to have a shoulder replacement in the near future. Will further evaluate his ascending aorta with a repeat CTA of the chest. Plan to call him with results. I do not not see any prior ultrasound to assess for abdominal aortic aneurysm. Since he is preop will perform this screening. Instructed on no heavy lifting. BP well controlled. No med changes made today. Cardiology follow-up 4-6 weeks, sooner if needed (2) Bicuspid aortic valve: Code(s): Q23.1 - Congenital insufficiency of aortic valve Category: Medical Plan: Prior notes indicate a hx of Bicuspid aortic valve without stenosis or regurgitation. Followed by echocardiograms. Last echo 08/25/2023 shows mild calcification of the aortic valve, no regurgitation or stenosis. Echocardiogram 08/10/2024 is showing normal aortic valve structure and function with no stenosis or regurgitation. It is unclear to me if he truly has a bicuspid aortic valve or not. (3) Chest discomfort: Code(s): R07.89 - Other chest pain Category: Medical Plan: Reports of chest discomfort occurring at rest. He is mostly sedentary. Episodes lasting a few minutes and resolving. No known triggers or alleviating factors. States this is a new symptom for him. Recent echo with no regional wall motion abnormality. Last nuclear stress test done 10/15/2021 showing normal myocardial perfusion imaging. He is hoping to have shoulder surgery in the near future. Will update his nuclear stress test. He will not be able to walk on a treadmill as ambulates with a cane. (4) HTN (hypertension): Code(s): I10 - Essential (primary) hypertension Category: Medical Plan: Well controlled at this time. Continue hydrochlorothiazide and carvedilol. (5) Preop cardiovascular exam: Code(s): Z01.810 - Encounter for preprocedural cardiovascular examination Category: Medical Plan: Preop for orthopedic surgery. Cardiac testing planned as above. (6) Edema of both ankles: Code(s): M25.471 - Effusion, right ankle; M25.472 - Effusion, left ankle Category: Medical Plan: Resolved. Was most likely related to amlodipine use. Plan Time spent on chart review, documentation, interview and assessment Orders: Orders CT angio chest aorta Today I77.810 - Thoracic aortic ectasia CA lexiscan stress w kellie Today I77.810 - Thoracic aortic ectasia, R07.89 - Other chest pain, Z01.818 - Encounter for other preprocedural examination NM cardiolite stress test Today Q23.1 - Congenital insufficiency of aortic valve, R07.89 - Other chest pain, Z01.818 - Encounter for other preprocedural examination US abdominal aortic aneurysm Today I77.810 - Thoracic aortic ectasia Coding Level of Care Code Est Pt Level 4 (96467) Complex EM visit Add On G2211 Diagnoses Ascending aorta dilatation I77.810 Bicuspid aortic valve Q23.1 Chest discomfort R07.89 HTN (hypertension) I10 Preop cardiovascular exam Z01.810 Edema of both ankles M25.471; M25.472 CPT Codes EKG - CPT: [id number], Complete ([id number]) Time Spent (min) 34
== END 2024-11-10 10:16 | disposition home or self-care (01) ==
PROVIDERS: PCP Family Medicine; Visit Provider Nurse Practitioner Family
DX: I77.810 Thoracic aortic ectasia (principal); Q23.1 Congenital insufficiency of aortic valve; R07.89 Other chest pain; I10 Essential (primary) hypertension; Z01.810 Encounter for preprocedural cardiovascular examination; M25.471 Effusion, right ankle; M25.472 Effusion, left ankle
CPT/HCPCS: 93010; 99214; G2211

== ENCOUNTER → 2024-11-10 08:51 | Outpatient (BNVA) | payer OTHER, SELFPAY | PROVIDERS: PCP Family Medicine; Visit Provider Nurse Practitioner Family | DX: Z01.810 Encounter for preprocedural cardiovascular examination (principal); I77.810 Thoracic aortic ectasia; I10 Essential (primary) hypertension; R07.89 Other chest pain; Q23.1 Congenital insufficiency of aortic valve; M25.471 Effusion, right ankle; M25.472 Effusion, left ankle | CPT/HCPCS: 93005; 99212 ==

== ENCOUNTER 2024-11-23 08:49 | Outpatient (AMB) | payer OTHER, SELFPAY ==
--- NOTE | 2024-11-23 08:51 | A.OFFVIS_ITS ---
Intake Visit Reasons: OV - Right Shoulder OA - s/p Arthrogram 08/2024 Intake Note: Patrice is a 79 year old right hand dominant, Guyanese Speaking, male who presents today for a follow up of his Right Shoulder OA.HX of RA+ & DM Injection administered to the right shoulder 05/23/[address] Santillan in Rheumatology which provided no relief. Right Shoulder Arthrogram done 08/16/24, ordered by Miracle Mccall who also discussed the possibility of TSA but patient deferred at that time. MRI of the right shoulder, obtained on 07/24/24, revealed: 1. Completely torn and retracted supraspinatus tendon with moderate muscle atrophy and mild fatty infiltration. 2. Complete or near-complete tear of the subscapularis tendon with moderate muscle atrophy and mild fatty infiltration. 3. Completely torn and retracted biceps tendon. 4. Superior subluxation of the humeral head with chronic remodeling of the undersurface of the acromion. 5. Mild acromioclavicular and glenohumeral osteoarthritis. Allergies lisinopril [LISINOPRIL] Allergy (Severe, Verified 11/10/24 09:23) Angioedema LAITH Inhibitors Adverse Reaction (Severe, Verified 11/10/24 09:23) Angioedema HPI HPI OV - Right Shoulder OA - s/p Arthrogram 08/2024: Details: Patrice is a 79 year old right hand dominant, Guyanese Speaking, male who presents today for a follow up of his Right Shoulder OA.HX of RA+ & DM Injection administered to the right shoulder 05/23/[address] Santillan in Rheumatology which provided no relief. Right Shoulder Arthrogram done 08/16/24, ordered by Miracle Mccall who also discussed the possibility of TSA but patient deferred at that time. He states injections have not really helped him overall. He describes difficulty with overhead activities or lifting. He states when he does not use it the pain is okay. 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 Osteoporosis Seropositive rheumatoid arthritis History of prostate cancer Arthritis GERD (gastroesophageal reflux disease) COPD (chronic obstructive pulmonary disease) Asthma HTN (hypertension) Surgical History History of open reduction and internal fixation (ORIF) procedure Hx of umbilical hernia repair Hx of eye surgery History of back surgery History of colonoscopy History of removal of cyst History of tonsillectomy and adenoidectomy History of arthroscopy of left shoulder History of prostate surgery Family History Mother History of breast cancer, Onset Age: 87 Father History of asthma Social History Alcohol intake: never Patient Tobacco Use Status: Current everyday Tobacco user Tobacco use type: Cigarette Cigarettes Per Day: 7 Years Smoked: 60 +/- e-Cigarette/Vaping Use: Never Used Current occupational status: retired Current occupation: Rt handed Gender identity: Male Physical Exam Extrem Other: Passive range of motion intact with active abduction to 60 degrees with her sca pular recruitment required to get his hand to his mouth. Positive drop-arm test. Results Reviewed Results Reviewed: I personally reviewed the MR images. MRI of the right shoulder, obtained on 07/24/24, revealed: 1. Completely torn and retracted supraspinatus tendon with moderate muscle atrophy and mild fatty infiltration. 2. Complete or near-complete tear of the subscapularis tendon with moderate muscle atrophy and mild fatty infiltration. 3. Completely torn and retracted biceps tendon. 4. Superior subluxation of the humeral head with chronic remodeling of the undersurface of the acromion. 5. Mild acromioclavicular and glenohumeral osteoarthritis. Assessment & Plan Assessment & Plan (1) Rotator cuff tear arthropathy of right shoulder: Code(s): M75.101 - Unspecified rotator cuff tear or rupture of right shoulder, not specified as traumatic; M12.811 - Other specific arthropathies, not elsewhere classified, right shoulder Category: Medical Plan: This is a 79-year-old gentleman with multiple medical problems including significant cardiac history who has rotator cuff arthropathy of the right shoulder. He does have pain when he uses it and I reviewed his diagnosis and treatment options with him. I do not recommend surgery given his comorbidities. I do not think it is justifiable. I do think he could benefit from injections although he has not and does not want a pursue more of these at this time. I think the other option is referral to pain management for consideration of periarticular injections and/or nerve injections around the shoulder joint and/or nerve stimulators. This is the option he would like to pursue and I recommend this. A referral was made to pain management. He can see me at any time should he like. Orders: Referrals Pain Management Referral M12.811 - Other specific arthropathies, not elsewhere classified, right shoulder, M75.101 - Unspecified rotator cuff tear or rupture of right shoulder, not specified as traumatic Coding Level of Care Code Est Pt Level 4 (82500) Diagnoses Rotator cuff tear arthropathy of right shoulder M75.101; M12.811
== END 2024-11-23 09:07 | disposition home or self-care (01) ==
PROVIDERS: PCP Family Medicine; Visit Provider Orthopaedic Surgery
DX: M75.101 Unspecified rotator cuff tear or rupture of right shoulder, not specified as traumatic (principal); M12.811 Other specific arthropathies, not elsewhere classified, right shoulder
CPT/HCPCS: 99214

== ENCOUNTER → 2024-11-23 08:49 | Outpatient (BNVA) | payer OTHER, SELFPAY | PROVIDERS: PCP Family Medicine; Visit Provider Orthopaedic Surgery | DX: M75.101 Unspecified rotator cuff tear or rupture of right shoulder, not specified as traumatic (principal); M12.811 Other specific arthropathies, not elsewhere classified, right shoulder | CPT/HCPCS: 99212 ==

== ENCOUNTER 2024-12-01 08:07 | Outpatient (REF) | payer OTHER, SELFPAY ==
--- NOTE | ~2024-12-01 | US_ITS ---
EXAMINATION: US ABDOMEN ANEURYSM SCREENING HISTORY: I77.810 - Thoracic aortic ectasia TECHNIQUE: Ultrasound of the abdominal aorta was performed with color flow and spectral imaging. COMPARISON: Correlation is made with a CT of the abdomen without contrast dated 04/01/2023. FINDINGS: Real-time grayscale ultrasound imaging was performed and reviewed. Proximal abdominal aorta measures 2.1 x 2.0 cm Mid abdominal aorta measures 2.0 x 2.4 cm Distal abdominal aorta measures 1.7 x 1.7cm. Left proximal iliac artery measures 0.9 x 1.1 cm. Right proximal iliac artery measures 1.2 x 1.2cm. US/US abdominal aortic aneurysm IMPRESSION: No evidence of an abdominal aortic aneurysm. Electronically signed by: Connor Higuera MD 12/01/2024 09:04 AM CARMEL
--- OUTSIDE RECORDS SUMMARY | 2024-12-01 08:10 | XMS_ITS | Encounter Summary ---
Author Organization [employer] Address [address] [facility] [address] [place] [address] Care Team Providers Care Infection Prevention Specialist Name Role Phone Daisha Crane MD Primary Care Provider [phone]- [phone] Lisa Liao PharmD Unavailable [phone]- [phone] Alissa Santillan MD Unavailable Sharon Guardado Unavailable Reason for Visit * Reason Onset Date Comments Med Refill 11/21/2024 Encounter Details Date Type Department Care Team (Late st Contact Info) Description 11/21/2024 Refill [facility] [address] [place], [place] [phone] Daisha Crane MD [address] [place], [place] [phone] Pain Social History Tobacco Use Types Packs/Day Years Used Date Smoking Tobacco: Every Day Cigarettes Passive Smoke Exposure: Current Smokeless Tobacco: Never Depression Answer Date Recorded Patient Health Questionnaire-9 Score 0 04/06/2024 Patient Health Questionnaire-9 Score 0 04/06/2024 Last PHQ-9: Questionnaire Data Not on file 0 04/06/2024 Housing Stability Answer Date Recorded What is your housing situation today? I have filippo sharma 04/06/[address] you li ve. Do you have problems with any of the following? None of the above 04/06/2024 Food Insecurity Answer Date Recorded Within the past 12 months, y ou worried that your food would run out before you got money to buy more: Never True 04/06/2024 Within the past 12 months,th e food you bought just didn't last and you didn't have enough money to get more: Never True 04/2024 Transportation Answer Date Recorded In the past 12 months, has l ack of transportation kept you from medical appts, meetings, work or from getting things needed for daily living? No 04/06/2024 Utilities Answer Date Recorded In the past 12 months, has t he electric, gas, oil or water company threatened to shut off services in your home? 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 Pt last picked up 19 day supply of oxycodone 10/31/24. Earliest fill date 11/19/24. Upcoming appt with FISHING MANAGER 12/15/24. Refill appropriate. Queued. * Telephone Encounter - Marissa Sanders - 11/21/2024 10:04 AM EST TC from pt requesting medication refill. Medications needing refill : oxyCODONE (Roxicodone) 5 MG immediate release tablet To be sent to: [facility] documented in this encounter Plan of Treatment Upcoming Encounters Date Type Department Care Team (Late st Contact Info) Description 12/15/2024 9:30 AM EST Clinical Support [facility] [address] [place] [address] Loyda Banda, SO [address] [place], [place] [phone] 01/22/2025 9:00 AM EDT Medication Management [facility] [address] [place] [address] Lisa Liao PharmD [address] [place] [address] documented as of this encounter Goals Goal Patient Goal Type Associated Problems Recent Progress Patient-Stated? Author Blood Pressure < 140/90 Blood Pressure 110/50(2024 9:20 AM EST) No Lisa Anguiano PharmAj Hemoglobin A1c < 8 Result Component 6.9( 10:06 AM EST) No Lisa Anguiano PharmD documented as of this encounter Visit Diagnoses Diagnosis Pain Generalized pain documented in this encounter Additional Health Concerns Assessment Noted Time PHQ-9 Depression Total Score: 0 04/06/20 24 9:11 AM EDT documented as of this encounter Care Teams Infection Prevention Specialist Relationship Specialty Start Date End Date Daisha Crane MD [address] [place] [address] PCP - General Family Medicine 11/01/18 Lisa Liao PharmD [address] [place] [address] Pharmacist Internal Medicine 04/06/23 Alissa Santillan MD [address] [place] [address] Rheumatology 11/09/24 Sharon Guarddao [address] [place] [address] Cardiology 11/13/24 documented as of this encounter
--- OUTSIDE RECORDS SUMMARY | 2024-12-01 08:10 | XMS_ITS | Encounter Summary ---
Author Organization [employer] Address [address] [facility] [address] [place] [address] Care Team Providers Care Diploma Maker Name Role Phone Daisha Crane MD Primary Care Provider +- [phone] Lisa Liao PharmD Unavailable Alissa Santillan MD Unavailable Sharon Guardado Unavailable Cedric Lujan MD Unavailable Reason for Visit * Reason Comments Med Refill Encounter Details Date Type Department Care Team (Late st Contact Info) Description 11/21/2024 Refill [facility] [address] [place], [place] [phone] Cara Whitfield MD [address] [place], [place] [phone] Pain Social History Tobacco Use Types Packs/Day [...] AM EDT documented as of this encounter Plan of Treatment Upcoming Encounters Date Type Department Care Team (Late st Contact Info) Description 12/15/2024 9:30 AM EST Clinical Support [facility] [address] [place] [address] Loyda Banda RN [address] [place] [address] 01/22/2025 9:00 AM EDT Medication Management [address] [address] Lisa Liao, PharmD [address] [place] [phone] documented as of this encounter Goals Goal Patient Goal Type Associated Problems Recent Progress Patient-Stated? Author Blood Pressure < 140/90 Blood Pressure 110/50(2024 9:20 AM EST) No Daveys-Idalmis Donaldsonsa, PharmD Hemoglobin A1c < 8 Result Component 6.9( 10:06 AM EST) No DaveysLisa Diaz, PharmD documented as of this encounter Visit Diagnoses Diagnosis Pain Generalized pain documented in this encounter Additional Health Concerns Assessment Noted Time PHQ-9 Depression Total Score: 0 04/06/20 9:11 AM EDT documented as of this encounter Care Teams Diploma Maker Relationship Specialty Start Date End Date Daisha Craen MD [address] [place] [address] PCP - General Family Medicine 11/01/18 Lisa Liao, GenevaD [address] [place] [address] Pharmacist Internal Medicine 04/06/23 Alissa Santillan MD [address] [place] [address] Rheumatology 11/09/24 Sharon Guardado [address] [place] [address] Cardiology 11/13/24 Cedric Lujan MD [address] [place] [address] Orthopaedic Surgery 11/23/24 documented as of this encounter
--- OUTSIDE RECORDS SUMMARY | 2024-12-01 08:10 | XMS_ITS | Encounter Summary ---
Author Organization [employer] Address [address] [facility] [address]t [place] [address] Care Team Providers Care Plastic Products Sales Representative Name Role Phone Daisha Crane MD Primary Care Provider [phone]- [phone] Lisa Liao PharmD Unavailable Alissa Santillan MD Unavailable Sahron Guardado Unavailable Reason for Visit * Reason Comments Med Refill Encounter Details Date Type Department Care Team (Late st Contact Info) Description 11/21/2024 Refill [facility] [address] [place], [place] [phone] Daisha Crane MD [address] [place] [address] Simple chronic bronchitis (CMS/HCC) Social History Tobacco Use Types Packs/Day Years [...] Description 12/15/2024 9:30 AM EST Clinical Support [address] [address] Loyda Banda, SO [address] [place] [address] 01/22/2025 9:00 AM EDT Medication Management [address] [address] Lisa Liao, PharmD [address] [place] [address] documented as of this encounter Goals Goal Patient Goal Type Associated Problems Recent Progress Patient-Stated? Author Blood Pressure < 140/90 Blood Pressure 110/50(2024 9:20 AM EST) No Daveys-Lisa Donaldson, PharmD Hemoglobin A1c < 8 Result Component 6.9( 10:06 AM EST) No Lisa Anguiano, PharmD documented as of this encounter Visit Diagnoses Diagnosis Simple chronic bronchitis (CMS/HCC) Simple chronic bronchitis documented in this encounter Additional Health Concerns Assessment Noted Time PHQ-9 Depression Total Score: 0 04/06/20 9:11 AM EDT documented as of this encounter Care Teams Plastic Products Sales Representative Relationship Specialty Start Date End Date Daisha Crane MD [address] [place] [address] PCP - General Family Medicine 11/01/18 Lisa Liao PharmD [address] [place] [address] Pharmacist Internal Medicine 04/06/23 Alissa Santillan MD [address] [place] [address] Rheumatology 11/09/24 Sharon Guardado [address] [place] [address] Cardiology 11/13/24 documented as of this encounter
--- OUTSIDE RECORDS SUMMARY | 2024-12-01 08:11 | XMS_ITS | Encounter Summary ---
Author Organization [employer] [facility] Address [address] 7t [place] [address] Care Team Providers Care Dipper Operator Name Role Phone Daisha Crane MD Primary Care Provider +1- [phone] Lisa Liao PharmD Unavailable +1- [phone] Alissa Santillan MD Unavailable Sharon Guardado Unavailable Reason for Visit * Reason Onset Date Comments Med Refill 11/24/2022 Encounter Details Date Type Department Care Team (Late st Contact Info) Description 11/24/2022 Telephone [facility] MEDICINE 230 [place], [place] [phone] Daisha Crane MD 230 [place], [place] [phone] Med Refill Social History Tobacco Use Types Packs/Day Years Used Date Smoking Tobacco: Never Assessed Depression Answer Date Recorded Patient Health Questionnaire-9 [...] not to disclose 2021 10:16 AM EDT COVID-19 Exposure Response Date Recorded In the last 10 days, have yo u been in contact with someone who was confirmed or suspected to have Coronavirus/COVID-19? No / Unsure 04/06/2023 9:48 AM EDT documented as of this encounter Miscellaneous Notes * Telephone Encounter - Christianne Hampton - 11/24/2022 2:54 PM EST Tc from pt requesting a med refill on oxycodone 5mg Please contact at [phone] documented in this encounter Plan of Treatment Upcoming Encounters Date Type Department Care Team (Late st Contact Info) Description 12/15/2024 9:30 AM EST Clinical Support [address] [address] Loyda Banda RN 505 [place] [address] 01/22/2025 9:00 AM EDT Medication Management [address] [address] Lisa Liao, PharmD 230 [place] [address] documented as of this encounter Goals Goal Patient Goal Type Associated Problems Recent Progress Patient-Stated? Author Blood Pressure < 140/90 Blood Pressure 110/50(2024 9:20 AM EST) No Lisa Anguiano PharmD Hemoglobin A1c < 8 Result Component 6.9( 10:06 AM EST) No Lisa Anguiano PharmD documented as of this encounter Visit Diagnoses Not on filedocumented in this encounter Additional Health Concerns Assessment Noted Time PHQ-9 Depression Total Score: 0 11/23/19 10:39 AM EST documented as of this encounter Care Teams Dipper Operator Relationship Specialty Start Date End Date Daisha Crane MD 230 [place] [address] PCP - General Family Medicine 11/01/18 Lisa Liao PharmD 230 [place] [address] Pharmacist Internal Medicine 04/06/23 Alissa Santillan MD [address] [place] [address] Rheumatology 11/09/24 Sharon Guardado [address] 3rd [place] [address] Cardiology 11/13/24 documented as of this encounter
--- OUTSIDE RECORDS SUMMARY | 2024-12-01 08:11 | XMS_ITS | Encounter Summary ---
Author Organization [employer] [facility] Address [address] [facility] 7t [place] [address] Care Team Providers Care Coordinate Measuring Equipment Operator Name Role Phone Daisha Crane MD Primary Care Provider +1- [phone] Lisa Liao PharmD Unavailable Alissa Santillan MD Unavailable Sharon Guardado Unavailable Cedric Lujan MD Unavailable Reason for Visit * Reason Onset Date Comments Med Refill 07/07/2023 Encounter Details Date Type Department Care Team (Late st Contact Info) Description 07/07/2023 Telephone [facility] 230 [place], [place] [phone] Daisha Crane MD 230 [place], [place] [phone] Med Refill Social History Tobacco Use Types Packs/Day Years Used Date Smoking Tobacco: Every Day Cigarettes Passive Smoke Exposure: Current Smokeless Tobacco: Never Depression Answer Date Recorded Patient Health Questionnaire-9 Score 0 11/23/2022 Depression Answer Date Recorded Patient Health Questionnaire-2 Score 0 11/23/2022 Sex and Gender Information Value Date Recorded Sex Assigned at Male 08/31/2022 10:16 AM EDT Legal Sex Male 10:16 AM EDT Gender Identity Male 08/31/2022 10:16 AM EDT Sexual Orientation Choose not to disclose 2021 10:16 AM EDT documented as of this encounter Miscellaneous Notes * Telephone Encounter - Richa Landin - 07/07/2023 1:42 PM EDT Tc from pt requesting med refill on oxyCODONE (Roxicodone) 5 MG immediate release tablet Please sent to [facility] - [place], [place] - [address] [place] [address] documented in this encounter Plan of Treatment Upcoming Encounters Date Type Department Care Team (Late st Contact Info) Description 12/15/2024 9:30 AM EST Clinical Support [facility] [address] [place] [address] Loyda Banda RN 505 [place], [place] [phone] 01/22/2025 9:00 AM EDT Medication Management [facility] [address] [place] [address] Lisa Liao PharmD [address] [place] [address] documented as of this encounter Goals Goal [...] Time PHQ-9 Depression Total Score: 0 11/23/19 23 10:39 AM EST documented as of this encounter Care Teams Coordinate Measuring Equipment Operator Relationship Specialty Start Date End Date Daisha Crane MD [address] [place] [address] PCP - General Family Medicine 11/01/18 Lisa Liao PharmD [address] [place] [address] Pharmacist Internal Medicine 04/06/23 Alissa Santillan MD [address] [place] [address] Rheumatology 11/09/24 Sharon Guardado [address] 3rd [place] [address] Cardiology 11/13/24 Cedric Lujan MD [address] [place] [address] Orthopaedic Surgery 11/23/24 documented as of this encounter
--- OUTSIDE RECORDS SUMMARY | 2024-12-01 08:11 | XMS_ITS | Encounter Summary ---
Author Organization [employer] Address [address] [facility] [address] [facility] 7t [place] [address] Care Team Providers Care Major Assembly Lineman Name Role Phone Daisha Crane MD Primary Care Provider +1- [phone] Lisa Liao PharmD Unavailable [phone]- [phone] Alissa Santillan MD Unavailable Sharon Guardado Unavailable Reason for Visit * Reason Onset Date Comments Med Refill 07/31/2024 Encounter Details Date Type Department Care Team (Late st Contact Info) Description 07/31/2024 Telephone [facility] MEDICINE 230 [place], [place] [phone] Daisha Crane MD 230 [place], [place] [phone] Med Refill Social History Tobacco Use Types [...] * Telephone Encounter - Christianne Hampton - 07/31/2024 9:19 AM EDT Tc from pt requesting a refill for oxyCODONE (Roxicodone) 5 MG immediate release tablet documented in this encounter Plan of Treatment Upcoming Encounters Date Type Department Care Team (Late st Contact Info) Description 12/15/2024 9:30 AM EST Clinical Support [facility] MEDICINE [address] [place] [address] Loyda Banda RN 505 [place] [address] 01/22/2025 9:00 AM EDT Medication Management [facility] MEDICINE [address] [place] [address] Lisa Liao PharmD [address] [place] [address] documented as of this encounter Goals Goal Patient Goal Type Associated Problems Recent Progress Patient-Stated? Author Blood Pressure < 140/90 Blood Pressure 110/50(2024 9:20 AM EST) No Lisa Anguiano PharmD Hemoglobin A1c < 8 Result Component 6.9( 4 10:06 AM EST) No Lisa Anguiano PharmD documented as of this encounter Visit Diagnoses Not on filedocumented in this encounter Additional Health Concerns Assessment Noted Time PHQ-9 Depression Total Score: 0 04/06/20 24 9:11 AM EDT documented as of this encounter Care Teams Major Assembly Lineman Relationship Specialty Start Date End Date Daisha Crane MD 230 [place] [address] PCP - General Family Medicine 11/01/18 Lisa Liao PharmD 230 [place] [address] Pharmacist Internal Medicine 04/06/23 Alissa Santillan MD [address] [place] [address] Rheumatology 11/09/24 Sharon Guardado [address] 3rd [place] [address] Cardiology 11/13/24 documented as of this encounter
--- OUTSIDE RECORDS SUMMARY | 2024-12-01 08:11 | XMS_ITS | Encounter Summary ---
Author Organization [employer] Address [address] [facility] 7t [place] [address] Care Team Providers Care Central Scheduler Name Role Phone Daisha Crane MD Primary Care Provider +1- [phone] Lisa Liao PharmD Unavailable [phone] Encounter Details Date Type Department Care Team (Late st Contact Info) Description 11/03/2024 Orders Only GENERIC EXTERNAL DATA DEPARTMENT Provider, Generic External Data Social History Tobacco Use Types Packs/Day Years [...] Description 12/15/2024 9:30 AM EST Clinical Support [facility] MEDICINE [address] [place] [address] Loyda Banda, SO 505 [place] [address] 01/22/2025 9:00 AM EDT Medication Management [facility] MEDICINE [address] [place] [address] Lisa Liao PharmD [address] [place] [address] documented as of this encounter Goals Goal Patient Goal Type Associated Problems Recent Progress Patient-Stated? Author Blood Pressure < 140/90 Blood Pressure 110/50(2024 9:20 AM EST) No Lisa Anguiano, PharmD Hemoglobin A1c < 8 Result Component 6.9( 10:06 AM EST) No Lisa Anguiano PharmD documented as of this encounter Procedures Procedure Name Priority Date/Time Associated Diagnosis Comments CBC WITH AUTO DIFFERENTIAL Routine 11/03/2024 8:55 AM EST SED RATE BY MODIFIED WESTERGREN Routine 11/03/2024 8:55 AM EST documented in this encounter Results * Sed Rate by Modified Westergren (11/03/2024 8:55 AM EST) Erythrocyte Sedimentation Rate 2 0 - 15 MM/HR [facility] Comment:Patients with polycy themia and many hemoglobin abnormalitiesmay have depressed sed rates whereas patients with anemiamay have elevated sed rates. 11/03/2024 8:55 AM EST 11/03/2024 8:55 AM EST us Generic External Data Provider LAB BLOOD ORDERAB LES Final Result [facility] [address] [place] [address] [phone] * (ABNORMAL) CBC auto differential (11/03/2024 8:55 AM EST) White Blood Count 9.4 4.8 - 10.8 X10*3/uL [facility] Red Blood Count 4.09(L) 4.60 - 5.80 X10*6/uL [facility] Hemoglobin 10.7(L) 14.0 - 18.0 g/dl [facility] Hematocrit 34.8(L) 42.0 - 52.0 % [facility] Mean Corpuscular Volume 85.1 80.0 - 98.0 fL [facility] Mean Corpuscular Hemoglobin 26.2(L) 27.0 - 33.0 pg [facility] Mean Corpuscular HGB Conc 30.7(L) 31.0 - 36.0 g/dl [facility] Red Cell Distribution Width 19.5(H) 11.0 - 16.0 % [facility] Platelet Count 188 160 - 400 X10*3/uL [facility] Mean Platelet Volume 9.7 9.4 - 12.4 fL [facility] Neutrophils Percent Auto 50.3 45 - 73 % [facility] Imm Gran Pct Auto 0.3 0.0 - 0.4 % [facility] Lymphocytes Percent Auto 37.2 20 - 40 % [facility] Monocytes Percent Auto 9.0 2 - 11 % [facility] Eosinophils Percent Auto 2.7 0 - 4 % [facility] Basophils Percent Auto 0.5 0 - 2 % [facility] NRBC Pct Auto 0.0 0.0 - 0.2 /100WBC [facility] Neutrophils Absolute Auto 4.7 2.0 - 8.3 x10*3/uL [facility] Imm Gran Abs Auto 0.03 0.00 - 0.03 X10*3/uL [facility] Lymphocytes Absolute Auto 3.5 1.2 - 4.9 X10*3/uL [facility] Monocytes Absolute Auto 0.9 0.1 - 1.2 X10*3/uL [facility] Eosinophils Absolute Auto 0.3 0.0 - 0.4 X10*3/uL [facility] Basophils Absolute Auto 0.1 0.0 - 0.2 X10*3/uL [facility] NRBC Abs Auto 0.000 0.0 - 0.012 X10*3/uL [facility] 11/03/2024 8:55 AM EST 11/03/2024 8:55 AM EST us Generic External Data Provider LAB BLOOD ORDERAB LES Final Result Performing Organization Address City/State/[facility] Co de Phone Number [facility] [address] [place] [address] [phone] documented in this encounter Visit Diagnoses Not on filedocumented in this encounter Additional Health Concerns Assessment Noted Time PHQ-9 Depression Total Score: 0 04/06/20 24 9:11 AM EDT documented as of this encounter Care Teams Central Scheduler Relationship Specialty Start Date End Date Daisha Crane MD 230 [place] [address] PCP - General Family Medicine 11/01/18 Lisa Liao, GenevaD 230 [place] [address] Pharmacist Internal Medicine 04/06/23 documented as of this encounter
--- OUTSIDE RECORDS SUMMARY | 2024-12-01 08:11 | XMS_ITS | Encounter Summary ---
Author Organization [employer] Address [address] [facility] 7t [place] [address] Care Team Providers Care Surfboard Maker Name Role Phone Dasiha Crane MD Primary Care Provider [phone]- [phone] Lisa Liao PharmD Unavailable Alissa Santillan MD Unavailable Sharon Guardado Unavailable Cedric Lujan MD Unavailable Reason for Visit * Reason Onset Date Comments Med Refill 07/04/2024 Encounter Details Date Type Department Care Team (Late st Contact Info) Description 07/04/2024 Telephone [facility] MEDICINE 230 [place], [place] [phone] Daisha Crane MD 230 [place], [place] [phone] Med Refill Social History Tobacco Use Types [...] encounter Miscellaneous Notes * Telephone Encounter - Carlos Eduardo Orantes - 07/04/2024 10:34 AM EDT TC from pt requesting medication refill. Medications needing refill : oxyCODONE (Roxicodone) 5 MG immediate release tablet To be sent to: [facility] - [place], [place] - [address] [place] [address] documented in this encounter Plan of Treatment Upcoming Encounters Date Type Department Care Team ([facility] st Contact Info) Description 12/15/2024 9:30 AM EST Clinical Support [address] [address] Loyda Banda RN 505 [place] [address] 01/22/2025 9:00 AM EDT Medication Management [address] [address] Lisa Liao, PharmD 230 [place] [address] documented as of this encounter Goals Goal [...] documented as of this encounter Care Teams Surfboard Maker Relationship Specialty Start Date End Date Daisha Crane MD 230 [place] [address] PCP - General Family Medicine 11/01/18 Lisa Liao, Nidia 230 [place] [address] Pharmacist Internal Medicine 04/06/23 Alissa Santillan MD [address] [place] [address] Rheumatology 11/09/24 Sharon Guardado [address] 3rd [place] [address] Cardiology 11/13/24 Cedric Lujan MD [address] [place] [address] Orthopaedic Surgery 11/23/24 documented as of this encounter
--- OUTSIDE RECORDS SUMMARY | 2024-12-01 08:11 | XMS_ITS | Encounter Summary ---
Author Organization [employer] [facility] Address [address] [facility] 7t [place] [address] Care Team Providers Care Delinquency Counselor Name Role Phone Daisha Crane MD Primary Care Provider [phone]- [phone] Lisa Liao PharmD Unavailable [phone] Alissa Santillan MD Unavailable Sharon Guardado Unavailable Cedric Lujan MD Unavailable Encounter Details Date Type Department Care Team (Late st Contact Info) Description 10/14/2022 Orders Only [facility] 230 [place], [place] [phone] Daisha Crane MD 230 [place], [place] [phone] Social History Tobacco Use Types Packs/Day Years Used Date Smoking Tobacco: Never Assessed Sex and Gender Information Value Date Recorded [...] Description 12/15/2024 9:30 AM EST Clinical Support [facility] MEDICINE 230 [place], [place] [phone] Loyda Banda RN 505 [place], [place] [phone] 01/22/2025 9:00 AM EDT Medication Management [facility] MEDICINE 230 [place] [address] Lisa Liao, PharmD 230 [place] [address] documented as of this encounter Visit Diagnoses Not on filedocumented in this encounter Care Teams Delinquency Counselor Relationship Specialty Start Date End Date Daisha Crane MD 230 [place] [address] PCP - General Family Medicine 11/01/18 Lisa Liao, PharmD 230 [place] [address] Pharmacist Internal Medicine 04/06/23 Alissa Santillan MD [address] [place] [address] Rheumatology 11/09/24 Sharon Guardado [address] 3rd [place] [address] Cardiology 11/13/24 Cedric Lujan MD [address] [place] [address] Orthopaedic Surgery 11/23/24 documented as of this encounter
--- OUTSIDE RECORDS SUMMARY | 2024-12-01 08:11 | XMS_ITS | Encounter Summary ---
Author Organization [employer] [facility] Address [address] [facility] 7t [place] [address] Care Team Providers Care Laboratory Mechanic Helper Name Role Phone Daisha Crane MD Primary Care Provider Lisa Liao PharmD Unavailable Alissa Santillan MD Unavailable Sharon Guardado Unavailable Cedric Lujan MD Unavailable Reason for Visit * Reason Comments Med Refill Encounter Details Date Type Department Care Team (Late st Contact Info) Description 07/21/2023 Refill [facility] MEDICINE 230 [place], [place] [phone] Daisha Crane MD 230 [place], [place] [phone] Pulmonary emphysema, unspecified emphysema type (CMS/HCC) (Primary Dx) Social History Tobacco Use Types Packs/Day Years [...] Description 12/15/2024 9:30 AM EST Clinical Support [address] [address] Loyda Banda, SO 505 [place] [address] 01/22/2025 9:00 AM EDT Medication Management [facility] MEDICINE [address] [place] [address] Lisa Liao PharmD [address] [place] [address] documented as of this encounter Goals Goal Patient Goal Type Associated Problems Recent Progress Patient-Stated? Author Blood Pressure < 140/90 Blood Pressure 110/50(2024 9:20 AM EST) No Lisa Anguiano PharmD Hemoglobin A1c < 8 Result Component 6.9( 10:06 AM EST) No Lisa Anguiano PharmD documented as of this encounter Visit Diagnoses Diagnosis Pulmonary emphysema, unspecified emphysema type (CMS/HCC)- Primary documented in this encounter Additional Health Concerns Assessment Noted Time PHQ-9 Depression Total Score: 0 11/23/19 23 10:39 AM EST documented as of this encounter Care Teams Laboratory Mechanic Helper Relationship Specialty Start Date End Date Daisha Crane MD [address] [place] [address] PCP - General Family Medicine 11/01/18 Lisa Liao PharmD [address] [place] [address] Pharmacist Internal Medicine 04/06/23 Alissa Santillan MD [address] [place] [address] Rheumatology 11/09/24 Sharon Guardado [address] 3rd [place] [address] Cardiology 11/13/24 Cedric Lujan MD [address] [facility] [place] [address] Orthopaedic Surgery 11/23/24 documented as of this encounter
--- OUTSIDE RECORDS SUMMARY | 2024-12-01 08:11 | XMS_ITS | Encounter Summary ---
Author Organization [employer] [facility] Address [address] [facility] 7t [place] [address] Care Team Providers Care Tomb Maker Helper Name Role Phone Daisha Crane MD Primary Care Provider + [phone] Lisa Liao PharmD Unavailable [phone] Alissa Santillan MD Unavailable Sharon Guardado Unavailable Cedric Lujan MD Unavailable Encounter Details Date Type Department Care Team (Late st Contact Info) Description 11/19/2022 Orders Only [facility] MEDICINE [address] [place] [phone] Radha Johnson LPN Social History Tobacco Use Types Packs/Day Years [...] Description 12/15/2024 9:30 AM EST Clinical Support [facility] MEDICINE 230 [place] [address] Loyda Banda RN 505 [place] [address] 01/22/2025 9:00 AM EDT Medication Management [facility] MEDICINE 230 [place] [address] Lisa Liao, PharmD [address] [place] [address] documented as of this encounter Visit Diagnoses Not on filedocumented in this encounter Care Teams Tomb Maker Helper Relationship Specialty Start Date End Date Daisha Crane MD [address] [place] [address] PCP - General Family Medicine 11/01/18 Lisa Liao, PharmD [address] [place] [address] Pharmacist Internal Medicine 04/06/23 Alissa Santillan MD [address] [place] [address] Rheumatology 11/09/24 Sharon Guardado [address]rd [place] [address] Cardiology 11/13/24 Cedric Lujan MD [address] [place] [address] Orthopaedic Surgery 11/23/24 documented as of this encounter
--- OUTSIDE RECORDS SUMMARY | 2024-12-01 08:11 | XMS_ITS | Encounter Summary ---
Author Organization [employer] [facility] Address [address] [facility] 7t [place] [address] Care Team Providers Care Commercial Director Name Role Phone Daisha Crane MD Primary Care Provider +1- [phone] Lisa Liao PharmD Unavailable Alissa Santillan MD Unavailable Sharon Guardado Unavailable Cedric Lujan MD Unavailable Encounter Details Date Type Department Care Team (Late st Contact Info) Description 10/22/2022 Orders Only [facility] 230 [place], [place] [phone] Radha Johnson LPN Social History Tobacco Use [...] Clinical Support [facility] MEDICINE 230 [place], [place] [phone] Loyda Banda RN 505 [place], [place] [phone] 01/22/2025 9:00 AM EDT Medication Management [facility] MEDICINE 230 [place], [place] [phone] Lisa Liao, PharmD 230 [place] [address] documented as of this encounter Visit Diagnoses Not on filedocumented in this encounter Care Teams Commercial Director Relationship Specialty Start Date End Date Daisha Crane MD 230 [place] [address] PCP - General Family Medicine 11/01/18 Lisa Liao, PharmD 230 [place] [address] Pharmacist Internal Medicine 04/06/23 Alissa Santillan MD [address] [place] [address] Rheumatology 11/09/24 Sharon Guardado [address]rd [place] [address] Cardiology 11/13/24 Cedric Lujan MD [address] [place] [address] Orthopaedic Surgery 11/23/24 documented as of this encounter
--- OUTSIDE RECORDS SUMMARY | 2024-12-01 08:11 | XMS_ITS | Encounter Summary ---
Author Organization [employer] Address [address] [facility] 7t [place] [address] Care Team Providers Care Assembly Line Upholsterer Name Role Phone Daisha Crane MD Primary Care Provider +1- [phone] Lisa Liao PharmD Unavailable Alissa Santillan MD Unavailable Sharon Guardado Unavailable Cedric Lujan MD Unavailable Reason for Visit * Reason Comments Med Refill Encounter Details Date Type Department Care Team (Late st Contact Info) Description 11/26/2024 Refill [facility] [address] [place], [place] [phone] Daisha Crane MD 230 [place], [place] [phone] Constipation, unspecified constipation type Social History Tobacco Use Types Packs/Day Years [...] Description 12/15/2024 9:30 AM EST Clinical Support [facility] MEDICINE [address] [place] [address] Loyda Banda RN 505 [place] [address] 01/22/2025 9:00 AM EDT Medication Management [address] [address] Lisa Liao, PharmD [address] [place] [address] documented as of this encounter Goals Goal Patient Goal Type Associated Problems Recent Progress Patient-Stated? Author Blood Pressure < 140/90 Blood Pressure 110/50(2024 9:20 AM EST) No DaveysLisa Diaz, PharmD Hemoglobin A1c < 8 Result Component 6.9( 10:06 AM EST) No Lisa Anguiano, PharmD documented as of this encounter Visit Diagnoses Diagnosis Constipation, unspecified constipation type documented in this encounter Additional Health Concerns Assessment Noted Time PHQ-9 Depression Total Score: 0 06/06/20 24 9:11 AM EDT documented as of this encounter Care Teams Assembly Line Upholsterer Relationship Specialty Start Date End Date Daisha Crane MD 230 [place] [address] PCP - General Family Medicine 11/01/18 Lisa Liao, GenevaD 230 [place] [address] Pharmacist Internal Medicine 04/06/23 Alissa Santillan MD [address] [place] [address] Rheumatology 11/09/24 Sharon Guardado [address]rd [place] [address] Cardiology 11/13/24 Cedric Lujan MD [address] [place] [address] Orthopaedic Surgery 11/23/24 documented as of this encounter
--- OUTSIDE RECORDS SUMMARY | 2024-12-01 08:11 | XMS_ITS | Encounter Summary ---
Author Organization [employer] Address 75 [facility] 7t [place] [address] Care Team Providers Care Supervisor Compounding And Finishing Name Role Phone Daisha Crane MD Primary Care Provider +1- [phone] Lisa Liao PharmD Unavailable Alissa Santillan MD Unavailable Sharon Guardado Unavailable Cedric Lujan MD Unavailable Reason for Visit * Reason Onset Date Comments Durable Medical Equipment 08/21/2024 Encounter Details Date Type Department Care Team (Late st Contact Info) Description 08/21/2024 Telephone [facility] 230 [place], [place] [phone] Daisha Crane MD 230 [place], [place] [phone] Durable Medical Equipment Social History Tobacco Use Types Packs/Day Years [...] encounter Miscellaneous Notes * Telephone Encounter - Chandra Carreno - 08/21/2024 9:48 AM EDT TC from pt and NUCLEAR ENGINEER called in states L&C got wrong script . Request was not for pullups , pt wasrequesting Nilo NUCLEAR ENGINEER [phone] documented in this encounter Plan of Treatment Upcoming Encounters Date Type Department Care Team (Late st Contact Info) Description 12/15/2024 9:30 AM EST Clinical Support [facility] [address] [place] [address] Loyda Banda, SO 505 [place] [address] 01/22/2025 9:00 AM EDT Medication Management [facility] [address] [place] [address] Lisa Liao, PharmD 230 [place] [address] documented as of this encounter Goals Goal [...] documented as of this encounter Care Teams Supervisor Compounding And Finishing Relationship Specialty Start Date End Date Daisha Crane MD 230 [place] [address] PCP - General Family Medicine 11/01/18 Lisa Liao, GenevaD 230 [place] [address] Pharmacist Internal Medicine 04/06/23 Alissa Santillan MD [address] [place] [address] Rheumatology 11/09/24 Sharon Guardado [address] 3rd [place] [address] Cardiology 11/13/24 Cedric Lujan MD [address] [place] [address] Orthopaedic Surgery 11/23/24 documented as of this encounter
--- OUTSIDE RECORDS SUMMARY | 2024-12-01 08:11 | XMS_ITS | Encounter Summary ---
Author Organization [employer] Address 75 [facility] 7t [place] [address] Care Team Providers Care Brand Planner Name Role Phone Daisha Crane MD Primary Care Provider +1- [phone] Lisa Liao PharmD Unavailable Alissa Santillan MD Unavailable Sharon Guardado Unavailable Cedric Lujan MD Unavailable Reason for Visit * Reason Onset Date Comments Med Refill 06/05/2024 Encounter Details Date Type Department Care Team (Late st Contact Info) Description 06/05/2024 Telephone [facility] 230 [place], [place] [phone] Daisha Crane MD 230 [place], [place] [phone] Med Refill Social History Tobacco Use Types [...] encounter Miscellaneous Notes * Telephone Encounter - Tara Rice - 06/05/2024 9:02 AM EDT TC from pt requesting medication refill. Medications needing refill : oxyCODONE (Roxicodone) 5 MG immediate release tablet To be sent to: [facility] - [place], [place] - [address] [place] [address] documented in this encounter Plan of Treatment Upcoming Encounters Date Type Department Care Team ([facility] st Contact Info) Description 12/15/2024 9:30 AM EST Clinical Support [address] [address] Loyda Banda RN 505 [place] [address] 01/22/2025 9:00 AM EDT Medication Management [address] [address] Lisa Liao, PharmD 230 [place] [address] documented as of this encounter Goals Goal [...] documented as of this encounter Care Teams Brand Planner Relationship Specialty Start Date End Date Daisha Crane MD 230 [place] [address] PCP - General Family Medicine 11/01/18 Lisa Liao, Nidia 230 [place] [address] Pharmacist Internal Medicine 04/06/23 Alissa Santillan MD [address] [place] [address] Rheumatology 11/09/24 Sharon Guardado [address] 3rd [place] [address] Cardiology 11/13/24 Cedric Lujan MD [address] [place] [address] Orthopaedic Surgery 11/23/24 documented as of this encounter"
--- OUTSIDE RECORDS SUMMARY | 2024-12-01 08:11 | XMS_ITS | Encounter Summary ---
Author Organization [employer] Address 75 [facility] 7t [place] [address] Care Team Providers Care Flooring Salesperson Name Role Phone Daisha Crane MD Primary Care Provider +1- [phone] Lisa Liao PharmD Unavailable Alissa Santillan MD Unavailable Sharon Guardado Unavailable Cedric Lujan MD Unavailable Reason for Visit * Reason Onset Date Comments Durable Medical Equipment 08/08/2024 Encounter Details Date Type Department Care Team (Late st Contact Info) Description 08/08/2024 Telephone [facility] 230 [place], [place] [phone] Daisha Crane MD 230 [place], [place] [phone] Durable Medical Equipment Social History Tobacco Use [...] encounter Miscellaneous Notes * Telephone Encounter - Philly Palacios - 08/08/2024 10:41 AM EDT Tc from pt regarding DME. Pt was advised by L&C to contact PCP. L&C only received script for cane. Pt needs bed pads and pull ups size large. documented in this encounter Plan of Treatment Upcoming Encounters Date Type Department Care Team (Late st Contact Info) Description 12/15/2024 9:30 AM EST Clinical Support [facility] [address] [place] [address] Loyda Banda, SO 505 [place] [address] 01/22/2025 9:00 AM EDT Medication Management [facility] [address] [place] [address] Lisa Liao, PharmD 230 [place] [address] documented as of this encounter Goals Goal [...] documented as of this encounter Care Teams Flooring Salesperson Relationship Specialty Start Date End Date Daisha Crane MD 230 [place] [address] PCP - General Family Medicine 11/01/18 Lisa Liao, GenevaD 230 [place] [address] Pharmacist Internal Medicine 04/06/23 Alissa Santillan MD [address] [place] [address] Rheumatology 11/09/24 Sharon Guardado [address] 3rd [place] [address] Cardiology 11/13/24 Cedric Lujan MD [address] [place] [address] Orthopaedic Surgery 11/23/24 documented as of this encounter
--- OUTSIDE RECORDS SUMMARY | 2024-12-01 08:11 | XMS_ITS | Encounter Summary ---
Author Organization [employer] Address 75 [facility] 7t [place] [address] Care Team Providers Care Co Teacher Name Role Phone Daisha Crane MD Primary Care Provider +- [phone] Lisa Liao PharmD Unavailable Alissa Santillan MD Unavailable Sharon Guardado Unavailable Cedric Lujan MD Unavailable Reason for Visit * Reason Comments Med Refill Encounter Details Date Type Department Care Team (Late st Contact Info) Description 11/26/2024 Refill [facility] 230 [place], [place] [phone] Cara Whitfield MD 230 [place], [place] [phone] Constipation, unspecified constipation type Social History Tobacco [...] Description 12/15/2024 9:30 AM EST Clinical Support [address] [address] Loyda Banda RN 505 [place] [address] 01/22/2025 9:00 AM EDT Medication Management [address] [address] Lisa Liao, PharmD [address] [place] [address] documented as of this encounter Goals Goal [...] documented as of this encounter Care Teams Co Teacher Relationship Specialty Start Date End Date Daisha Crane MD 230 [place] [address] PCP - General Family Medicine 11/01/18 Lisa Liao PharmD 230 [place] [address] Pharmacist Internal Medicine 04/06/23 Alissa Santillan MD [address] [place] [address] Rheumatology 11/09/24 Sharon Guardado [address] 3rd [place] [address] Cardiology 11/13/24 Cedric Lujan MD [address] [place] [address] Orthopaedic Surgery 11/23/24 documented as of this encounter
--- OUTSIDE RECORDS SUMMARY | 2024-12-01 08:11 | XMS_ITS | Encounter Summary ---
Author Organization [employer] [facility] Address 75 [facility] 7t [place] [address] Care Team Providers Care Political Theory Professor Name Role Phone Daisha Crane MD Primary Care Provider +- [phone] Lisa Liao PharmD Unavailable +1- [phone] Alissa Santillan MD Unavailable Sharon Guardado Unavailable Cedric Lujan MD Unavailable Encounter Details Date Type Department Care Team (Late st Contact Info) Description 12/16/2022 Orders Only [facility] 505 [place], [place] [phone] Jenn Polk LPN Social History Tobacco Use Types Packs/Day [...] suspected to have Coronavirus/COVID-19? No / Unsure 11/23/2022 10:27 AM EST documented as of this encounter Plan of Treatment Upcoming Encounters Date Type Department Care Team (Late Contact Info) Description 12/15/2024 9:30 AM EST Clinical Support [facility] 230 [place] [address] Loyda Banda, RN 505 [place] [address] 01/22/2025 9:00 AM EDT Medication Management [facility] 230 [place] [address] Lisa Liao, Nidia 230 [place] [address] documented as of this encounter Visit Diagnoses Not on filedocumented in this encounter Additional Health Concerns Assessment Noted Time PHQ-9 Depression Total Score: 0 11/23/19 10:39 AM EST documented as of this encounter Care Teams Political Theory Professor Relationship Specialty Start Date End Date Daisha Crane MD [address] [place] [address] PCP - General Family Medicine 11/01/18 Lisa Liao, PharmD [address] [place] [address] Pharmacist Internal Medicine 04/06/23 Alissa Santillan MD [address] [place] [address] Rheumatology 11/09/24 Sharon Guardado [address] 3rd [place] [address] Cardiology 11/13/24 Cedric Lujan MD [address] [place] [address] Orthopaedic Surgery 11/23/24 documented as of this encounter
--- OUTSIDE RECORDS SUMMARY | 2024-12-01 08:11 | XMS_ITS | Encounter Summary ---
Author Organization [employer] Address 75 [facility] 7t [place] [address] Care Team Providers Care Fluxer Name Role Phone Daisha Crane MD Primary Care Provider +1- [phone] Lisa Liao PharmD Unavailable +1 [phone] Alissa Santillan MD Unavailable Sharno Guardado Unavailable Encounter Details Date Type Department Care Team (Latest Contact Info) Description 11/13/2024 Travel Social History Tobacco Use Types Packs/Day Years [...] t he electric, gas, oil or water [employer] threatened to shut off services in your [...] Description 12/15/2024 9:30 AM EST Clinical Support [facility]INE [address] [place] [address] Loyda Banda RN 505 [place] [address] 01/22/2025 9:00 AM EDT Medication Management [address] [address] Lisa Liao PharmD [address] [place] [address] documented as of this encounter Goals Goal Patient Goal Type Associated Problems Recent Progress Patient-Stated? Author Blood Pressure < 140/90 Blood Pressure 110/50(2024 9:20 AM EST) No Daveys-Sarayl saurav, Lisa, PharmD Hemoglobin A1c < 8 Result Component 6.9( 10:06 AM EST) No Daveys-Lisa Donaldson, PharmD documented as of this encounter Visit Diagnoses Not on filedocumented in this encounter Additional Health Concerns Assessment Noted Time PHQ-9 Depression Total Score: 0 04/06/20 9:11 AM EDT documented as of this encounter Care Teams Fluxer Relationship Specialty Start Date End Date Daisha Crane MD [address] [place] [address] PCP - General Family Medicine 11/01/18 Lisa Liao, PharmD [address] [place] [address] Pharmacist Internal Medicine 04/06/23 Alissa Santillan MD [address] [place] [address] Rheumatology 11/09/24 Sharon Guardado [address] 3rd [place] [address] Cardiology 11/13/24 documented as of this encounter
--- OUTSIDE RECORDS SUMMARY | 2024-12-01 08:11 | XMS_ITS | Encounter Summary ---
Author Organization [employer] [facility] Address [address] [facility] 7t [place] [address] Care Team Providers Care Volunteer Patient Representative Name Role Phone Daisha Crane MD Primary Care Provider +1- [phone] Lisa Liao PharmD Unavailable Alissa Santillan MD Unavailable Sharon Guardado Unavailable Cedric Lujan MD Unavailable Encounter Details Date Type Department Care Team (Late st Contact Info) Description 12/08/2022 Abstract [facility]INE 230 [place], [place] [phone] Daisha Crane MD 230 [place], [place] [phone] Social History Tobacco Use Types Packs/Day Years [...] Description 12/15/2024 9:30 AM EST Clinical Support [address] [address] Loyda Banda, RN 505 [place] [address] 01/22/2025 9:00 AM EDT Medication Management [address] [address] Lisa Liao, PharmAj [address] [place] [address] documented as of this encounter Procedures Procedure Name Priority Date/Time Associated Diagnosis Comments COLONOSCOPY Routine 12/21/2020 documented in this encounter Results * Colonoscopy (12/21/2020) Colonoscopy tubular adenoma with Dr. Rodríguez us Historical Provider HEALTH MAINTENANCE Final Result documented in this encounter Visit Diagnoses Not on filedocumented in this encounter Additional Health Concerns Assessment Noted Time PHQ-9 Depression Total Score: 0 11/23/19 10:39 AM EST documented as of this encounter Care Teams Volunteer Patient Representative Relationship Specialty Start Date End Date Daisha Crane MD [address] [place] [address] PCP - General Family Medicine 11/01/18 Lisa Liao, PharmD [address] [place] [address] Pharmacist Internal Medicine 04/06/23 Alissa Santillan MD [address] [place] [address] Rheumatology 11/09/24 Sharon Guradado [address] 3rd [place] [address] Cardiology 11/13/24 Cedric Lujan MD [address] [place] [address] Orthopaedic Surgery 11/23/24 documented as of this encounter
--- OUTSIDE RECORDS SUMMARY | 2024-12-01 08:11 | XMS_ITS | Encounter Summary ---
Author Organization [employer] [facility] Address 75 [facility] 7t [place] [address] Care Team Providers Care Glaze Wiper Name Role Phone Daisha Crane MD Primary Care Provider +1- [phone] Lisa Liao PharmD Unavailable Alissa Santillan MD Unavailable Sharon Guardado Unavailable Cedric Lujan MD Unavailable Encounter Details Date Type Department Care Team (Late st Contact Info) Description 10/28/2022 Telephone [facility] MEDICINE [address] [place] [phone] Daisha Crane MD 230 [place], [place] [phone] Social History Tobacco Use Types Packs/Day Years [...] Description 12/15/2024 9:30 AM EST Clinical Support [facility] MEDICINE [address] [place] [address] Loyda Banda RN 505 [place] [address] 01/22/2025 9:00 AM EDT Medication Management [facility]INE 230 [place] [address] Lisa Liao, PharmD 230 [place] [address] documented as of this encounter Visit Diagnoses Not on filedocumented in this encounter Care Teams Glaze Wiper Relationship Specialty Start Date End Date Daisha Crane MD 230 [place] [address] PCP - General Family Medicine 11/01/18 Lisa Liao, GenevaD 230 [place] [address] Pharmacist Internal Medicine 04/06/23 Alissa Santillan MD [address] [place] [address] Rheumatology 11/09/24 Sharon Guardado [address] 3rd [place] [address] Cardiology 11/13/24 Cedric Lujan MD [address] [place] [address] Orthopaedic Surgery 11/23/24 documented as of this encounter
--- OUTSIDE RECORDS SUMMARY | 2024-12-01 08:11 | XMS_ITS | Encounter Summary ---
Author Organization [employer] Address 75 [facility] 7t [place] [address] Care Team Providers Care Head Turning Machine Operator Name Role Phone Daisha Crane MD Primary Care Provider +1- [phone] Lisa Liao PharmD Unavailable [phone] Alissa Santillan MD Unavailable Sharon Guardado Unavailable Cedric Lujan MD Unavailable Encounter Details Date Type Department Care Team (Late st Contact Info) Description 10/30/2024 Telephone [facility] PEDS [address] [place], [place] [phone] Daisha Crane MD 230 [place], [place] [phone] Social History Tobacco Use Types Packs/Day Years [...] Clinical Support [facility] MEDICINE [address] [place] [address] Loyda Banda, SO 505 [place] [address] 01/22/2025 9:00 AM EDT Medication Management [address] [address] Lisa Liao, PharmD [address] [place] [address] documented as of this encounter Goals Goal Patient Goal Type Associated Problems Recent Progress Patient-Stated? Author Blood Pressure < 140/90 Blood Pressure 110/50(2024 9:20 AM EST) No Piers-Idalmis Donaldsonsa, PharmD Hemoglobin A1c < 8 Result Component 6.9( 10:06 AM EST) No Daveys-Sarayl Idalmis mgsa, PharmD documented as of this encounter Visit Diagnoses Not on filedocumented in this encounter Additional Health Concerns Assessment Noted Time PHQ-9 Depression Total Score: 0 04/06/20 9:11 AM EDT documented as of this encounter Care Teams Head Turning Machine Operator Relationship Specialty Start Date End Date Daisha Crane MD 230 [place] [address] PCP - General Family Medicine 11/01/18 Lisa Liao, GenevaD 230 [place] [address] Pharmacist Internal Medicine 04/06/23 Alissa Santillan MD [address] [place] [address] Rheumatology 11/09/24 Sharon Guardado [address] 3rd [place] [address] Cardiology 11/13/24 Cedric Lujan MD [address] [place] [address] Orthopaedic Surgery 11/23/24 documented as of this encounter
--- OUTSIDE RECORDS SUMMARY | 2024-12-01 08:11 | XMS_ITS | Clinical Summary ---
Author Organization [address] [facility] Address [address] [place] [address] Care Team Providers Care Commission Specialist Name Role Phone Daisha Crane MD Primary Care Provider [phone] Lisa Liao PharmD Unavailable Alissa Santillan MD Unavailable Sharon Guardado Unavailable Cedric Lujan MD Unavailable Allergies Active Allergy Reactions Criticality Noted Date Comments Marlo Inhibitors Angioedema,Swelling High 12/04/2010 Lisinopril Swelling 07/16/2023 Medications Humira Pen 40 MG/0.4ML Pen-injector Kit pen-injector As directed 022 Active carvedilol (Coreg) 6.25 MG tablet TAKE 1 TABLET BY MOUTH TWICE DAILY IN THE MORNING AND IN THE EVENING WITH FOOD 023 Active Rasuvo 25 MG/0.5ML solution auto-injector As directed 023 Active Actemra ACTPen 162 MG/0.9ML solution auto-injector As directed 023 Active predniSONE (Deltasone) 10 MG tablet 023 Active FREESTYLE LITE test stripIndication s:Type 2 diabetes mellitus without complication, unspecified whether termite inspector insulin use ([facility]) TEST BLOOD SUGAR TWICE DAILY 50 strip 11 024 Active omeprazole (PriLOSEC) [address] capsuleIndicati ons:Gastroesoph ageal reflux disease without esophagitis TAKE 1 CAPSULE ON PACKAGE EVERY MORNING BEFORE A MEAL 90 capsule 3 Active TRUEplus Lancets 33G miscIndications :Type 2 diabetes mellitus without complication, without long-term current use of insulin (CMS/HCC) Test daily blood glucose 100 each Active naloxone (Narcan) 4 mg/0.1 mL nasal sprayIndication s:Rheumatoid arthritis involving multiple sites with positive rheumatoid factor (CMS/HCC) May repeat every 2-3 minutes if needed, alternating nostrils, until medical assistance becomes available. 2 each Active folic acid (Folvite) 1 MG tabletIndicatio ns:Rheumatoid arthritis involving multiple sites with positive rheumatoid factor (CMS/HCC) Take 1 tablet (1,000 mcg) by mouth in the morning. 90 tablet 3 024 Active metFORMIN XR (Glucophage-XR) 500 MG 24 hr tabletIndicatio ns:Type 2 diabetes mellitus without complication, without long-term current use of insulin (CMS/HCC) Take 1 tablet by mouth twice daily. Do not crush, chew, or split. 180 tablet 3 024 Active melatonin 3 MG tabletIndicatio ns:Primary insomnia TAKE 1 TABLET BY MOUTH AT BEDTIME NEEDED FOR SLEEP 30 tablet 11 Active fluticasone furoate (Arnuity Ellipta) 200 MCG/ACT inhalerIndicati ons:Chronic obstructive pulmonary disease, unspecified COPD type ([facility]) INHALE 1 PUFF BY MOUTH EVERY DAY AT THE SAME TIME IN THE MORNING. RINSE MOUTH AFTER USING. 1 each Active hydroCHLOROthia zide 12.5 MG tabletIndicatio ns:Hypertension , unspecified type Take 1 tablet by mouth once daily in the morning 90 tablet 3 024 Active Icosapent Ethyl (Vascepa) 1 g capsuleIndicati ons:Dyslipidemi a Take 2 capsules (2 g) by mouth with breakfast and with evening meal. 360 capsule 3 024 Active hydroxychloroqu ine (Plaquenil) 200 MG tabletIndicatio ns:Rheumatoid arthritis involving multiple sites with positive rheumatoid factor (CMS/HCC) TAKE 1 TABLET BY MOUTH TWICE DAILY ON ON WEDNESDAY THROUGH WEDNESDAY OF EACH WEEK AND TAKE 1 TABLET BY MOUTH EVERY DAY ON WEDNESDAY AND JOHNNIE 10/24/2 024 Active albuterol (Ventolin HFA) 108 (90 Base) MCG/ACT inhalerIndicati ons:Mild intermittent asthma without complication INHALE 2 PUFFS BY MOUTH EVERY 4 HOURS NEEDED FOR WHEEZING OR SHORTNESS OF BREATH 18 g 024 Active cholecalciferol (Vitamin D-3) 25 MCG tabletIndicatio ns:Vitamin D deficiency TAKE 1 TABLET BY MOUTH EVERY MORNING 90 tablet 024 Active clotrimazole (Lotrimin) 1 % cream APPLY TOPICALLY TO SKIN AND TOENAILS DAILY FOR 12 WEEKS 024 Active atorvastatin (Lipitor) 40 MG tabletIndicatio ns:Dyslipidemia TAKE 1 TABLET BY MOUTH AT BEDTIME 90 tablet 3 025 Active Incruse Ellipta 62.5 MCG/ACT aerosol powderIndicatio ns:Simple chronic bronchitis (CMS/HCC) INHALE 1 PUFF BY MOUTH EVERY DAY AT THE SAME TIME 30 each 5 025 Active oxyCODONE (Roxicodone) 5 MG immediate release tabletIndicatio ns:Pain Take 1 tablet (5 mg) by mouth every 8 (eight) hours if needed for severe pain. 56 tablet 025 Active docusate sodium (Colace) 100 MG capsuleIndicati ons:Constipatio n, unspecified constipation type TAKE 1 CAPSULE BY MOUTH TWICE DAILY IN THE MORNING AND IN THE EVENING 180 capsule 1 025 Active senna (Senokot) 8.6 MG tabletIndicatio ns:Constipation , unspecified constipation type TAKE 2 TABLETS BY MOUTH EVERY DAY IN THE EVENING NEEDED FOR CONSTIPATION 180 tablet 1 025 Active Umeclidinium [place] (Incruse Ellipta) 62.5 MCG/ACT aerosol powderIndicatio ns:Simple chronic bronchitis (CMS/HCC) Inhale 6.25 mcg Once per day. INHALE 1 PUFF EVERY DAY AT THE SAME TIME 30 each 5 024 2024 Discontinued docusate sodium (Colace) 100 MG capsuleIndicati ons:Constipatio n, unspecified constipation type TAKE 1 CAPSULE BY MOUTH TWICE DAILY IN THE MORNING AND IN THE EVENING 180 capsule 1 024 2024 Discontinued senna (Senokot) 8.6 MG tabletIndicatio ns:Constipation , unspecified constipation type TAKE 2 TABLETS BY MOUTH EVERY DAY IN THE EVENING NEEDED FOR CONSTIPATION 180 tablet 1 024 2024 Discontinued(R eorder (will not trigger notification to Pharmacy)) oxyCODONE (Roxicodone) 5 MG immediate release tabletIndicatio ns:Pain TAKE 1 TABLET BY MOUTH EVERY 8 HOURS NEEDED FOR SEVERE PAIN 56 tablet 024 2024 Discontinued(R eorder (will not trigger notification to Pharmacy)) atorvastatin (Lipitor) 40 MG tabletIndicatio ns:Dyslipidemia TAKE 1 TABLET BY MOUTH AT BEDTIME 30 tablet 024 2024 Discontinued(R eorder (will not trigger notification to Pharmacy)) Active Problems Patient Care Coordination No te Formatting of this note migh t be different from the original. Enrolled in [facility] DM and HTN clinic with Lisa Liao PharmD, [facility] [employer]sembl[employer] Installer: Denise, member services number [phone] Sample Washer Agency: [facility] Problem Noted Date Diagnosed Date Transaminitis 09/04/2024 Overview (09/04/2024): -ordered labs 09/04/24 Assessment & Plan (09/04/2024 5:00 PM EST): -ordered labs 09/04/24 custodial (current) use of opiate analgesic 08/03 Neuropathic pain, leg, bilateral 07/31/2024 Chronic right shoulder pain 07/24/2024 Overview (11/23/2024): MRI ordered by Dr. Jones of rheumatology 07/21/24 MR/MR shoulder RT wo con IMPRESSION: 1. Completely torn and retracted supraspinatus tendon with moderate muscle atrophy and mild fatty infiltration. 2. Complete or near-complete tear of the subscapularis tendon with moderate muscle atrophy and mild fatty infiltration. 3. Completely torn and retracted biceps tendon. 4. Superior subluxation of the humeral head with chronic remodeling of the undersurface of the acromion. 5. Mild acromioclavicular and glenohumeral osteoarthritis. -seen by ortho 07/31/24 Miracle Mccall PA-C discussed the role of surgical intervention, which would be a reverse total shoulder arthroplasty; however, we would like to defer at this time. Indication would be for pain and not necessarily to improve motion. He will receive a glenohumeral joint injection at the hospital under imaging guidance. He will give a solid 4 weeks after receiving the injection to see if it helps to alleviate any of his pain. -he reports no change in pain 1 month after shot -seen by Dr. Cedric Lujan 11/23/24 Assessment & Plan (09/04/2024 4:57 PM EST): MRI ordered by Dr. Jones of rheumatology 07/21/24 MR/MR shoulder RT wo con IMPRESSION: 1. Completely torn and retracted supraspinatus tendon with moderate muscle atrophy and mild fatty infiltration. 2. Complete or near-complete tear of the subscapularis tendon with moderate muscle atrophy and mild fatty infiltration. 3. Completely torn and retracted biceps tendon. 4. Superior subluxation of the humeral head with chronic remodeling of the undersurface of the acromion. 5. Mild acromioclavicular and glenohumeral osteoarthritis. -seen by ortho 07/31/24 Miracle Mccall PA-C discussed the role of surgical intervention, which would be a reverse total shoulder arthroplasty; however, we would like to defer at this time. Indication would be for pain and not necessarily to improve motion. He will receive a glenohumeral joint injection at the hospital under imaging guidance. He will give a solid 4 weeks after receiving the injection to see if it helps to alleviate any of his pain. -he reports no change in pain 1 month after shot Neuropathy of both feet 04/06/2024 Overview (04/06/2024): -decreased sensation to filament on foot exam 04/06/2024 -advised caution and to wear sandals in the house Assessment & Plan (04/06/2024 9:58 AM EDT): -decreased sensation to filament on foot exam 04/06/2024 -advised caution and to wear sandals in the house Enlarged and hypertrophic nails 04/06/2024 Overview (09/04/2024): -referral placed to Podiatry 04/06/[address] Daniels, he was not happy with with visit. He would like referral to [facility] , new referral placed 09/04/24 Assessment & Plan (09/04/2024 4:56 PM EST): -referral placed to Podiatry 04/06/[address] Daniels, he was not happy with with visit. He would like referral to [facility] , new referral placed 09/04/24 Assessment & Plan (04/06/2024 9:55 AM EDT): -referral placed to Podiatry 04/06/2024 Other specified health status 06/03/2023 Overview (09/04/2024): -next physical exam due after 09/04/2025 -eye care facilitated by [facility] and [facility] -dental home is [facility] [place]. -healthcare Proxy completed and filed 04/06/2024. Assessment & Plan (09/04/2024 5:02 PM EST): -next physical exam due after 09/04/2025 -eye care facilitated by [facility] and [facility] -dental home is [facility] [place]. -healthcare Proxy completed and filed 04/06/2024. Assessment & Plan (04/06/2024 9:51 AM EDT): -next physical exam due after 06/04/2024. -eye care facilitated by [facility]. -dental home is [facility] [place]. -healthcare Proxy completed and filed 04/06/2024. Assessment & Plan (06/04/2023 9:45 AM EDT): -next physical exam due after 06/04/2024. -eye care facilitated by [facility]. -dental home is [facility] [place]. Ascending aorta dilation 04/06/2023 Overview (09/04/2024): Followed by Sharon LEWIS for [facility]. Seen 05/30/24 -Hx of dilated ascending aorta. Echo done 08/28/22 shows moderate dilation of ascending aorta at 4.6 cm. He then had a CTA of chest showing sinus of valsalva dilated at 4.7 cm and ascending aorta dilated at 4.2 cm. Repeat echocardiogram done 08/25/2023 shows EF 60-65%, dilated ascending aorta 4.6 cm. Overall no change in 2023. Assessment & Plan (09/04/2024 4:56 PM EST): Followed by Sharon LEWIS for [facility]. Seen 05/30/24 -Hx of dilated ascending aorta. Echo done 08/28/22 shows moderate dilation of ascending aorta at 4.6 cm. He then had a CTA of chest showing sinus of valsalva dilated at 4.7 cm and ascending aorta dilated at 4.2 cm. Repeat echocardiogram done 08/25/2023 shows EF 60-65%, dilated ascending aorta 4.6 cm. Overall no change in 2023. Bicuspid aortic valve 04/06/2023 Overview (11/13/2024): -Followed by Sharon LEWIS for [facility]. -Known hx of Bicuspid aortic valve without stenosis or regurgitation. Followed by echocardiograms. Last echo 08/25/2023 shows mild calcification of the aortic valve, no regurgitation or stenosis. Repeat echo ordered 2023. -Sharon LEWIS for [facility] 11/2024 Prior notes indicate a hx of Bicuspid aortic valve without stenosis or regurgitation. Followed by echocardiograms. Last echo 08/25/2023 shows mild calcification of the aortic valve, no regurgitation or stenosis. Echocardiogram 08/10/2024 is showing normal aortic valve structure and function with no stenosis or regurgitation. It is unclear to me if he truly has a bicuspid aortic valve or not. -CT angio chest aorta ordered 11/2024 Leg edema 04/06/2023 Overview (05/31/2024): Followed by Sharon LEWIS for [facility] 05/30/24. History of leg edema with higher dose amlodipine use. He did have improvement in his swelling when his amlodipine was reduced to 5 mg daily and then discontinued. -echo does show a normal EF, impaired relaxation. He is on hydrochlorothiazide. He is on prednisone which can contribute to some mild edema. BMP and BNP ordered 05/30/24. If BNP is elevated then plan to change hydrochlorothiazide to low-dose Lasix. -given compression stockings 05/30/24 -continue leg elevation, compression stocking use, low-salt diet. Cardiology follow-up as planned for September 2024. GERD (gastroesophageal reflux disease) 3 oil heaterman systemic steroid user 04/06/2023 Osteoporosis 04/06/2023 Overview (04/06/2024): DEXA from November 2019 with osteopenia but high FRAX score. Patient started on Fosamax in November 2019, tolerating medications. His repeat DEXA scan in 2021 shows mild insignificant improvement.? Alendronate was stopped sometime 2021 in preparation for his dental implants. Patient already has his dental implants. Fosamax restarted 09/2022. Discontinue 11/2023 due to GI upset.. DEXA scan done 03/30/2024 which showed osteopenia based on the lowest T-score value of -1.7 in the femoral neck applying World Health Organization criteria. Assessment & Plan (09/04/2024 4:56 PM EST): DEXA from November 2019 with osteopenia but high FRAX score. Patient started on Fosamax in November 2019, tolerating medications. His repeat DEXA scan in 2021 shows mild insignificant improvement.? Alendronate was stopped sometime 2021 in preparation for his dental implants. Patient already has his dental implants. Fosamax restarted 09/2022. Discontinue 11/2023 due to GI upset.. DEXA scan done 03/30/2024 which showed osteopenia based on the lowest T-score value of -1.7 in the femoral neck applying World Health Organization criteria. Assessment & Plan (04/06/2024 9:37 AM EDT): DEXA from November 2019 with osteopenia but high FRAX score. Patient started on Fosamax in November 2019, tolerating medications. His repeat DEXA scan in 2021 shows mild insignificant improvement.? Alendronate was stopped sometime 2021 in preparation for his dental implants. Patient already has his dental implants. Fosamax restarted 09/2022. Discontinue 11/2023 due to GI upset.. DEXA scan done 03/30/2024 which showed osteopenia based on the lowest T-score value of -1.7 in the femoral neck applying World Health Organization criteria. Anemia 11/20/2022 Overview (09/04/2024): Lab Results Component Value Date FERRITIN 18 (L) 06/17/2023 HGB 10.9 (L) 08/23/2024 HGB 11.0 (L) 05/19/2024 HGB 13.6 03/25/2021 HEMATOCRIT 41.2 03/25/2021 -ordered labs 09/04/24 Assessment & Plan (09/04/2024 4:59 PM EST): Lab Results Component Value Date FERRITIN 18 (L) 06/17/2023 HGB 10.9 (L) 08/23/2024 HGB 11.0 (L) 05/19/2024 HGB 13.6 03/25/2021 HEMATOCRIT 41.2 03/25/2021 -ordered labs 09/04/24 Assessment & Plan (06/04/2023 9:36 AM EDT): Ferritin was 12 on 03/2021. Increase iron rich foods. Hgb was nml at 13.6 Assessment & Plan (11/20/2022 10:20 AM EST): Ferritin was 12 on 03/2021. Increase iron rich foods. Hgb was nml at 13.6 Tobacco dependence 11/20/2022 Overview (09/04/2024): -Cigg/day: 7 -Age started: 15 -Total years smokin -Pack year history: 19 Encouraged smoking cessation resources such as pharmacomtherapy, [facility] smoking cessation group, and [facility] pharmacy smoking cessation clinic Discussed USPSTF recommends annual lung cancer screening with low dose CT in people who meet the following criteria: -ages 50 to 80 years. -have a 20 pack-year smoking history. -currently smoke cigarettes or quit within the past 15 years. -LDCT: Referring to program for cancer screening for lungs 04/06/2024, rereferred 09/04/24 Assessment & Plan (09/04/2024 5:00 PM EST): -Cigg/day: 7 -Age started: 15 -Total years smokin -Pack year history: 19 Encouraged smoking cessation resources such as pharmacomtherapy, [facility] smoking cessation group, and [facility] pharmacy smoking cessation clinic Discussed USPSTF recommends annual lung cancer screening with low dose CT in people who meet the following criteria: -ages 50 to 80 years. -have a 20 pack-year smoking history. -currently smoke cigarettes or quit within the past 15 years. -LDCT: Referring to program for cancer screening for lungs 04/06/2024, rereferred 09/04/24 Assessment & Plan (04/06/2024 9:37 AM EDT): -Cigg/day: 7 -Age started: 15 -Total years smokin -Pack year history: 19 Encouraged smoking cessation resources such as pharmacomtherapy, [facility] smoking cessation group, and [facility] pharmacy smoking cessation clinic Discussed USPSTF recommends annual lung cancer screening with low dose CT in people who meet the following criteria: -ages 50 to 80 years. -have a 20 pack-year smoking history. -currently smoke cigarettes or quit within the past 15 years. -LDCT: Referring to program for cancer screening for lungs 04/06/2024. Assessment & Plan (06/04/2023 9:40 AM EDT): Cessation encouraged Referring to program for cancer screening for lungs 05/18/22. Assessment & Plan (11/20/2022 10:21 AM EST): Cessation encouraged Referring to program for cancer screening for lungs 05/18/22. Rheumatoid arthritis involvi ng multiple sites with positive rheumatoid factor 11/20/2022 Overview (11/09/2024): Seen by veterans adviser Dr. Minnie Santillan 05/23/24 -On Actemra 162 mg every other week, Rasuvo 25 mg subcutaneously once weekly, and prednisone 10 mg daily. -He is doing quite well on this combination with no active synovitis. Inflammatory markers are normal. Medications are well tolerated with no side effects. -There were multiple attempts to try and for the prednisone however lowering it below 10 mg results in a flare. - he has restarted hydroxychloroquine, and is followed by optho -Chest CTA 10/2022 showed no evidence of ILD -T-spot and Hepatitis panel -vl 11/2023,. -Rheumatology note from 11/09/24 reviewed: On Actemra 162 mg every other week, hydroxychloroquine Rasuvo 25 mg subcutaneously once weekly, and prednisone 10 mg daily. He is doing quite well on this combination with no active synovitis. Inflammatory markers are normal. Medications are well tolerated with no side effects. There were multiple attempts to try and for the prednisone however lowering it below 10 mg results in a flare. I started hydroxychloroquine last visit in an attempt to lower prednisone, patient states that he will see orthopedics next week and hoping that right shoulder replacement surgery would be offered. Under normal circumstances I would have started tapering his prednisone to 7.5 mg daily for up one- month then lower it further to 5 mg daily but if surgery is planned soon I would like to keep his inflammatory arthritis fully controlled. At This time I will keep prednisone at 10 mg a day Continue hydroxychloroquine 200 mg Twice daily x5 days a week and 200 mg daily x2 days a week Assessment & Plan (09/04/2024 5:00 PM EST): Seen by veterans adviser Dr. Minnie Santillan 05/23/24 -On Actemra 162 mg every other week, Rasuvo 25 mg subcutaneously once weekly, and prednisone 10 mg daily. -He is doing quite well on this combination with no active synovitis. Inflammatory markers are normal. Medications are well tolerated with no side effects. -There were multiple attempts to try and for the prednisone however lowering it below 10 mg results in a flare. - he has restarted hydroxychloroquine, and is followed by optho -Chest CTA 10/2022 showed no evidence of ILD -T-spot and Hepatitis panel -vl 11/2023,. -Rheumatology note from 08/24/24 reviewed Assessment & Plan (04/06/2024 9:51 AM EDT): Followed by veterans adviser. Per note 11/18/23:On Actemra 162 mg every other week, Rasuvo 25 mg subcutaneously once weekly. Once prednisone was lowered to 5 mg daily he started having bilateral wrist swelling. Left wrist swelling improved with increasing prednisone to 10 mg daily but he continues to have significant right ECU tenosynovitis. Increase prednisone to 30 mg daily for 5 days then 20 mg daily for 2 weeks then remain on 10 mg daily. 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 If patient is cleared. Will start hydroxychloroquine Continue Rasuvo 25 mg weekly + Actemra every other week. Chest CTA 10/2022 showed no evidence of ILD T-spot and Hepatitis panel -ve 11/2023,. Labs before next visit in 3 months via rheumatology Seen by veterans adviser Dr. Minnie Santillan 02/23/24 -On Actemra 162 mg every other week, Rasuvo 25 mg subcutaneously once weekly, and prednisone 10 mg daily. -He is doing quite well on this combination with no active synovitis. Inflammatory markers are normal. Medications are well tolerated with no side effects. -There were multiple attempts to try and for the prednisone however lowering it below 10 mg results in a flare. - he would like to restart hydroxychloroquine, will refer patient to Ophthalmology for a baseline hydroxychloroquine screening. If patient is cleared. Will start hydroxychloroquine -Chest CTA 10/2022 showed no evidence of ILD -T-spot and Hepatitis panel -ve 11/2023,. Assessment & Plan (06/04/2023 9:39 AM EDT): -Followed by veterans adviser Dr. Fisher. -Currently on prednisone 2 mg daily -med rec to make sure we have correct meds on file -Continue Oxycodone 5mg BID as needed for pain -Did not tolerate Methotrexate, then Leflunomide 20mg daily but then d/c due to rash Assessment & Plan (11/20/2022 10:23 AM EST): -Followed by veterans adviser Dr. Fisher. -Currently on prednisone 2 mg daily -med rec to make sure we have correct meds on file -Continue Oxycodone 5mg BID as needed for pain -Did not tolerate Methotrexate, then Leflunomide 20mg daily but then d/c due to rash Heart murmur 10/13/2022 Overview (11/13/2024): Seen by cardiology on 09/04/2021 c/w aortic stenosis on exam, echo, stress test ordered. Will request results. -LEXICAN on 10/13/2021. Nuclear image pending -Echo on 09/15/2021 had EF of 60-65%. Suspect bicuspid aortic valve with fusion of the left and non-coronary cusps. No significant stenosis or regurgitation. Mild aortic annular dilatation measuring 4cm and ascending aorta 4.3cm Strap Folding Machine Operator Nanette Leonard seen in April 2022. Followed by Sharon AREVALOC for [facility] 05/30/24. History of leg edema with higher dose amlodipine use. He did have improvement in his swelling when his amlodipine was reduced to 5 mg daily and then discontinued. -echo does show a normal EF, impaired relaxation. He is on hydrochlorothiazide. He is on prednisone which can contribute to some mild edema. BMP and BNP ordered 05/30/24. If BNP is elevated then plan to change hydrochlorothiazide to low-dose Lasix. -given compression stockings 05/30/24 -continue leg elevation, compression stocking use, low-salt diet. Cardiology follow-up as planned for September 2024. -Sharon AREVALOC for [facility] 11/2024 Thoracic aortic ectasia Category: Medical Plan: Hx of dilated ascending aorta. Echo done 08/28/22 shows moderate dilation of ascending aorta at 4.6 cm. He then had a CTA of chest showing sinus of valsalva dilated at 4.7 cm and ascending aorta dilated at 4.2 cm. Repeat echocardiogram done 08/25/2023 shows EF 60-65%, dilated ascending aorta 4.6 cm. Last echo done 08/10/2024 shows EF 60-65%, dilated ascending aorta 4.7 cm. Today he reports feeling well overall. He does have discomfort in his right shoulder and tells me he is hoping to have a shoulder replacement in the near future. Will further evaluate his ascending aorta with a repeat CTA of the chest. Plan to call him with results. I do not not see any prior ultrasound to assess for abdominal aortic aneurysm. Since he is preop will perform this screening. Instructed on no heavy lifting. BP well controlled. No med changes made today. Cardiology follow- up 4-6 weeks, sooner if needed (2) Bicuspid aortic valve: Code(s): Q23.1 - Congenital insufficiency of aortic valve Category: Medical Plan: Prior notes indicate a hx of Bicuspid aortic valve without stenosis or regurgitation. Followed by echocardiograms. Last echo 08/25/2023 shows mild calcification of the aortic valve, no regurgitation or stenosis. Echocardiogram 08/10/2024 is showing normal aortic valve structure and function with no stenosis or regurgitation. It is unclear to me if he truly has a bicuspid aortic valve or not. (3) Chest discomfort: Code(s): R07.89 - Other chest pain Category: Medical Plan: Reports of chest discomfort occurring at rest. He is mostly sedentary. Episodes lasting a few minutes and resolving. No known triggers or alleviating factors. States this is a new symptom for him. Recent echo with no regional wall motion abnormality. Last nuclear stress test done 10/15/2021 showing normal myocardial perfusion imaging. He is hoping to have shoulder surgery in the near future. Will update his nuclear stress test. He will not be able to walk on a treadmill as ambulates with a cane. (4) HTN (hypertension): Code(s): I10 - Essential (primary) hypertension Category: Medical Plan: Well controlled at this time. Continue hydrochlorothiazide and carvedilol. (5) Preop cardiovascular exam: Code(s): Z01.810 - Encounter for preprocedural cardiovascular examination Category: Medical Plan: Preop for orthopedic surgery. Cardiac testing planned as above. (6) Edema of both ankles: Code(s): M25.471 - Effusion, right ankle; M25.472 - Effusion, left ankle Category: Medical Plan: Resolved. Was most likely related to amlodipine use. Plan Time spent on chart review, documentation, interview and assessment Orders: Orders CT angio chest aorta Today I77.810 - Thoracic aortic ectasia CA lexiscan stress w kellie Today I77.810 - Thoracic aortic ectasia, R07.89 - Other chest pain, Z01.818 - Encounter for other preprocedural examination NM cardiolite stress test Today Q23.1 - Congenital insufficiency of aortic valve, R07.89 - Other chest pain, Z01.818 - Encounter for other preprocedural examination US abdominal aortic aneurysm Today I77.810 - Thoracic aortic ectasia Assessment & Plan (09/04/2024 4:55 PM EST): Seen by cardiology on 09/04/2021 c/w aortic stenosis on exam, echo, stress test ordered. Will request results. -LEXICAN on 10/13/2021. Nuclear image pending -Echo on 09/15/2021 had EF of 60-65%. Suspect bicuspid aortic valve with fusion of the left and non-coronary cusps. No significant stenosis or regurgitation. Mild aortic annular dilatation measuring 4cm and ascending aorta 4.3cm Strap Folding Machine Operator Nanette Leonard seen in April 2022. Followed by Sharon LEWIS for [facility] 05/30/24. History of leg edema with higher dose amlodipine use. He did have improvement in his swelling when his amlodipine was reduced to 5 mg daily and then discontinued. -echo does show a normal EF, impaired relaxation. He is on hydrochlorothiazide. He is on prednisone which can contribute to some mild edema. BMP and BNP ordered 05/30/24. If BNP is elevated then plan to change hydrochlorothiazide to low-dose Lasix. -given compression stockings 05/30/24 -continue leg elevation, compression stocking use, low-salt diet. Cardiology follow-up as planned for September 2024. Assessment & Plan (04/06/2024 9:53 AM EDT): Seen by cardiology on 09/04/2021 c/w aortic stenosis on exam, echo, stress test ordered. Will request results. -LEXICAN on 10/13/2021. Nuclear image pending -Echo on 09/15/2021 had EF of 60-65%. Suspect bicuspid aortic valve with fusion of the left and non-coronary cusps. No significant stenosis or regurgitation. Mild aortic annular dilatation measuring 4cm and ascending aorta 4.3cm Strap Folding Machine Operator Nanette Leonard seen in April 2022. Assessment & Plan (06/04/2023 9:41 AM EDT): Seen by cardiology on 09/04/2021 c/w aortic stenosis on exam, echo, stress test ordered. Will request results. -LEXICAN on 10/13/2021. Nuclear image pending -Echo on 09/15/2021 had EF of 60-65%. Suspect bicuspid aortic valve with fusion of the left and non-coronary cusps. No significant stenosis or regurgitation. Mild aortic annular dilatation measuring 4cm and ascending aorta 4.3cm Strap Folding Machine Operator Nanette Leonard seen in April 2022. Assessment & Plan (11/20/2022 10:25 AM EST): Seen by cardiology on 09/04/2021 c/w aortic stenosis on exam, echo, stress test ordered. Will request results. -LEXICAN on 10/13/2021. Nuclear image pending -Echo on 09/15/2021 had EF of 60-65%. Suspect bicuspid aortic valve with fusion of the left and non-coronary cusps. No significant stenosis or regurgitation. Mild aortic annular dilatation measuring 4cm and ascending aorta 4.3cm Strap Folding Machine Operator Nanette Leonard seen in April 2022. Currently on Rasuvo 25mg weekly, Humeria. Prednisone 2mg daily. -decreased it to 1 mg daily. T2DM (type 2 diabetes mellitus) 10/13/2022 Overview (11/09/2024): Diabetes is controlled. Lab Results Component Value Date HGBA1C 6.9 (A) 09/04/2024 HGBA1C 7.0 (HH) 04/06/2024 HGBA1C 7.1 (A) 02/08/2024 Lab Results Component Value Date CREATININE 0.70 08/23/2024 EGFR >60 08/23/2024 MICROALBCREU 17.0 06/17/2023 LDLCHOLCAL 33 02/16/2024 -Marlo/Arb: none ALLERGY TO MARLO -Statin therapy: atorvastatin 40mg -Diabetic eye exam: -Diabetic foot exam: 04/06/2024, referred to Podiatry 04/06/2024. -Continue lifestyle modifications Assessment & Plan (09/04/2024 4:57 PM EST): Diabetes is controlled. - Lab Results Component Value Date HGBA1C 6.9 (A) 09/04/2024 HGBA1C 7.0 (HH) 04/06/2024 HGBA1C 7.1 (A) 02/08/2024 Lab Results Component Value Date CREATININE 0.70 08/23/2024 EGFR >60 08/23/2024 MICROALBCREU 17.0 06/17/2023 LDLCHOLCAL 33 02/16/2024 -Marlo/Arb: none ALLERGY TO MARLO -Statin therapy: atorvastatin 40mg -Diabetic eye exam: -Diabetic foot exam: 04/06/2024, referred to Podiatry 04/06/2024. -Continue lifestyle modifications Assessment & Plan (04/06/2024 9:42 AM EDT): Diabetes is controlled. Lab Results Component Value Date HGBA1C 7.1 (A) 02/08/2024 HGBA1C 8.0 (A) 07/16/2023 HGBA1C 7.6 (H) 04/21/2023 - Lab Results Component Value Date CREATININE 0.77 02/16/2024 EGFR >60 02/16/2024 MICROALBCREU 17.0 06/17/2023 LDLCHOLCAL 33 02/16/2024 -Marlo/Arb: none -Statin therapy: atorvastatin 40mg -Diabetic eye exam: -Diabetic foot exam: 04/06/2024, referred to Podiatry 04/06/2024. -Continue lifestyle modifications Assessment & Plan (06/03/2023 9:23 AM EDT): Diabetes is controlled. - Lab Results Component Value Date HGBA1C 7.6 (H) 04/21/2023 HGBA1C 7.0 (H) 03/25/2021 -No results found for: POCA1C - Lab Results Component Value Date CREATININE 0.75 05/25/2023 -Changes: -Marlo/Arb: -Statin therapy: -Diabetic eye exam: -Diabetic foot exam: -Continue lifestyle modifications -Continue current medications Assessment & Plan (11/20/2022 10:19 AM EST): Well controlled. Diagnosed on 04/2021 based on A1c of 7.0 on 03/25/21 and glucose of 144 on 01/02/2021. A1c 6.3% on 05/18/2022 A1c 7.2% on 05/15/2021 -Dietary changes discussed. -Rx BS monitor and supplies -Blood pressure is at goal of <140/90 per JNC 8 guidelines. -Continue atorvastatin 40mg qhs -Yearly foot exam due -Urine microalbumin/creatine ratio goal of <35ug/mg/cr ordered -Yearly ophthalmologic exam done. -Flu shot and pneumovax are up-to-date. -Importance of low-fat, low cholesterol, ADA diet discussed. Importance of moderate physical activity discussed. Secondary hyperparathyroidism 02/05/2022 Overview (09/04/2024): Labs on 03/2021 had a PTH of 66 and Vitamin D of 26. Continue Vitamin D supplementation. Assessment & Plan (09/04/2024 4:59 PM EST): Labs on 03/2021 had a PTH of 66 and Vitamin D of 26. Continue Vitamin D supplementation. Assessment & Plan (04/06/2024 9:52 AM EDT): Labs on 03/2021 had a PTH of 66 and Vitamin D of 26. Continue Vitamin D supplementation. Assessment & Plan (06/04/2023 9:39 AM EDT): Labs on 03/2021 had a PTH of 66 and Vitamin D of 26. Continue Vitamin D supplementation. Assessment & Plan (11/20/2022 10:24 AM EST): Labs on 03/2021 had a PTH of 66 and Vitamin D of 26. Continue Vitamin D supplementation. Backache 08/03/2013 Tubular adenoma of colon 08/03/2013 Overview (11/23/2022): Hx tubular adenoma on colonoscopies 02/03/13 and 01/[address] Rodríguez. Repeat Dec 21 2020, next due in 5 years, 12/2025 Assessment & Plan (04/06/2024 9:53 AM EDT): Hx tubular adenoma on colonoscopies 02/03/13 and 01/[address] Rodríguez. Repeat b 2020, next due in 5 years, 12/2025 Assessment & Plan (06/04/2023 9:40 AM EDT): Hx tubular adenoma on colonoscopies 02/03/13 and 01/[address] Rodríguez. Repeat Dec 21 2020, next due in 5 years, 12/2025 Assessment & Plan (11/23/2022 11:12 AM EST): Hx tubular adenoma on colonoscopies 02/03/13 and 01/[address] Rodríguez. Repeat Dec 21 2020, next due in 5 years, 12/2025 Elevated levels of transaminase & lactic acid de hydrogenase 05/18/2012 HTN (hypertension) 05/05/2012 Overview (09/04/2024): Amlodipine 5mg discontinued by CDTM 05/22/24 due to noted edema Continue hydrochlorothiazide 12.5mg once daily and carvedilol 6.25mg Was seen by cardiology 05/30/24 and plan above noted to continue Work on lifestyle modifications, especially smoking cessation Assessment & Plan (09/04/2024 4:55 PM EST): Amlodipine 5mg discontinued by CDTM 05/22/24 due to noted edema Continue hydrochlorothiazide 12.5mg once daily and carvedilol 6.25mg Was seen by cardiology 05/30/24 and plan above noted to continue Work on lifestyle modifications, especially smoking cessation Assessment & Plan (04/06/2024 9:49 AM EDT): Continue amlodipine 10 mg qd. Continue carvedilol 3.125mg. Work on lifestyle modifications, especially smoking cessation Assessment & Plan (06/04/2023 9:38 AM EDT): Continue amlodipine 10 mg qd. Continue carvedilol 3.125mg. Work on lifestyle modifications, especially smoking cessation Assessment & Plan (11/20/2022 10:19 AM EST): Continue amlodipine 10 mg qd. Continue carvedilol 3.125mg. Work on lifestyle modifications, especially smoking cessation Chronic obstructive lung disease 05/05/2012 Overview (09/04/2024): - PFTS 2009 revealed moderate severe obstructive airway disorder with no significant change with bronchodilator therapy. - Continue Incruse Ellipta Flovent and albuterol prn. - tobacco cessation encouraged Assessment & Plan (09/04/2024 4:54 PM EST): - PFTS 2009 revealed moderate severe obstructive airway disorder with no significant change with bronchodilator therapy. - Continue Incruse Ellipta Flovent and albuterol prn. - tobacco cessation encouraged Assessment & Plan (04/06/2024 9:49 AM EDT): - PFTS 2009 revealed moderate severe obstructive airway disorder with no significant change with bronchodilator therapy. - Continue Incruse Ellipta Flovent and albuterol prn. - tobacco cessation encouraged Assessment & Plan (06/04/2023 9:38 AM EDT): - PFTS 2009 revealed moderate severe obstructive airway disorder with no significant change with bronchodilator therapy. - Continue Incruse Ellipta Flovent and albuterol prn. - tobacco cessation encouraged Assessment & Plan (11/20/2022 10:22 AM EST): - PFTS 2009 revealed moderate severe obstructive airway disorder with no significant change with bronchodilator therapy. - Continue Incruse Ellipta Flovent and albuterol prn. - tobacco cessation encouraged Dyslipidemia 05/05/2012 Overview (05/22/2024): Lab Results Component Value Date CHOL 115 02/16/2024 CHOL 155 06/17/2023 CHOL 177 11/16/2022 TRIG 205 (H) 02/16/2024 TRIG 166 06/17/2023 TRIG 168 11/16/2022 HDL 41 02/16/2024 HDL 55 06/17/2023 HDL 69 11/16/2022 LDLCHOLCAL 33 02/16/2024 LDLCHOLCAL 67 06/17/2023 LDLCHOLCAL 75 11/16/2022 -continue lifestyle modification -Vascepa 2 grams twice daily started by [facility] 05/22/24 Assessment & Plan (09/04/2024 5:03 PM EST): Lab Results Component Value Date CHOL 115 02/16/2024 CHOL 155 06/17/2023 CHOL 177 11/16/2022 TRIG 205 (H) 02/16/2024 TRIG 166 06/17/2023 TRIG 168 11/16/2022 HDL 41 02/16/2024 HDL 55 06/17/2023 HDL 69 11/16/2022 LDLCHOLCAL 33 02/16/2024 LDLCHOLCAL 67 06/17/2023 LDLCHOLCAL 75 11/16/2022 -continue lifestyle modification -Vascepa 2 grams twice daily started by [facility] 05/22/24 Assessment & Plan (04/06/2024 9:52 AM EDT): Lab Results Component Value Date CHOL 115 02/16/2024 CHOL 155 06/17/2023 CHOL 177 11/16/2022 TRIG 205 (H) 02/16/2024 TRIG 166 06/17/2023 TRIG 168 11/16/2022 HDL 41 02/16/2024 HDL 55 06/17/2023 HDL 69 11/16/2022 LDLCHOLCAL 33 02/16/2024 LDLCHOLCAL 67 06/17/2023 LDLCHOLCAL 75 11/16/2022 -continue lifestyle modification Assessment & Plan (06/03/2023 9:23 AM EDT): Lab Results Component Value Date CHOLESTEROL 141 03/25/2021 LDLCHOL 65 03/25/2021 TRIG 168 11/16/2022 HDLCHOL 57 03/25/2021 CHOLHDLRAT 2.5 03/25/2021 -continue lifestyle modifications History of prostate cancer 05/05/2012 Resolved Problems Problem Noted Date Diagnosed Date Resolved Date Skin tags, multiple acquired 04/06/2024 08/01/2024 Overview (04/06/2024): -new referral placed to Dermatology 04/06/2024 Assessment & Plan (04/06/2024 9:56 AM EDT): -new referral placed to Dermatology 04/06/2024 Personal history of colonic polyps 06/04/2023 03/30/2024 Abscess of umbilicus 05/18/2023 024 Assessment & Plan (05/18/2023 10:39 AM EDT): Pt with a Hx of umbilical hernia s/p repair by Dr Neves 2 years ago. With c/o pain and persistent purulent and bloody discharge from his umbilicus for months, On exam he is tender to palpation over his umbilicus and has active yellowish discharge. ( Culture obtained ) Plan: ER evaluation. Pt needs a CT to find out how deep the abscess is . He will likely require broad spectrum IV antibiotics and surgical consultation. Pt agreeable with plan to be transported to [facility] via ambulance . Case discussed with provider at [facility] ER Cutaneous skin tags 05/18/2023 03/30/20 24 Assessment & Plan (05/18/2023 10:39 AM EDT): Numerous on his neck would like to have them removed Will refer to Dr Gregory Umbilical abnormality 04/06/20232023 Epidermal inclusion cyst 04/06/2023 Fracture of right distal radius 04/06/2023 03/30/2024 Gout 04/06/2023 04/06/2024 Iron deficiency 04/06/2023 03/30/2024 Pain in right shoulder 04/06/202303/30 Rotator cuff impingement syn drome of left shoulder 04/06/2023 08/01/2024 Tenosynovitis of right wrist 04/06/2023 03/30/2024 Tobacco abuse disorder 04/06/202303/30 Umbilical hernia 04/06/2023 04/06/2024 Chest pain 04/06/2023 03/30/2024 Candidiasis 11/20/2022 03/30/2024 Overview (11/20/2022): Treated 05/18/22 with fluconazole 1 tab, and clotrimazole cream. -Has not had labs done with me yet. Assessment & Plan (11/20/2022 10:18 AM EST): Treated 05/18/22 with fluconazole 1 tab, and clotrimazole cream. -Has not had labs done with me yet. Leukocytosis 11/20/2022 03/30/2024 Overview (11/20/2022): White count was 12.7 then 14 Possibly due to prednisone in setting of tobacco use. - Re-check 05/22. Assessment & Plan (06/04/2023 9:39 AM EDT): White count was 12.7 then 14 Possibly due to prednisone in setting of tobacco use. - Re-check 05/22. Assessment & Plan (11/20/2022 10:21 AM EST): White count was 12.7 then 14 Possibly due to prednisone in setting of tobacco use. - Re-check 05/22. Leg swelling 11/20/2022 03/30/2024 Overview (11/20/2022): Likely fromalmlodipine, not noticed on exam. No evidence of hypervolemia. Assessment & Plan (06/04/2023 9:39 AM EDT): Likely fromalmlodipine, not noticed on exam. No evidence of hypervolemia. Assessment & Plan (11/20/2022 10:24 AM EST): Likely fromalmlodipine, not noticed on exam. No evidence of hypervolemia. Abscess 03/15/2019 03/30/2024 Overview (06/04/2023): Umbilical hernia in 09/2020 S/P I&D with surgery no evidence of infection -Serous drainage. -Seen in ER on 05/18/22 and referred to general surgery due to concern that he may have a fistula. Assessment & Plan (06/04/2023 9:38 AM EDT): Umbilical hernia in 09/2020 S/P I&D with surgery no evidence of infection -Serous drainage. -Seen in ER on 05/18/22 and referred to general surgery due to concern that he may have a fistula. Assessment & Plan (11/20/2022 10:26 AM EST): S/P I&D with surgery no evidence of infection -Serous drainage. -Redressed this 05/18/22. Generalized abdominal pain 01/26/2018 1 11/04/2023 Benign hypertension 08/09/2015 03/30/20 24 Elevated aspartate aminotransferase level 08/09/2015 04/06/2024 Alcohol dependence 05/05/2012 4 Failure to thrive (child) 05/05/2012 Encounters Date Type Department Care Team Description 11/26/2024 Refill [facility] [address] [place] [address] Cara Whitfield MD Constipation, unspecified constipation type 11/26/2024 Refill [facility] [address] [place] [address] Daisha Crane MD Constipation, unspecified constipation type 11/21/2024 Refill [facility] [address] [place] [address] Daisha Crane MD Simple chronic bronchitis ([facility]) 11/21/2024 Refill [facility] [address] [place] [address] Cara Whitfield MD Pain 11/21/2024 Refill [facility] [address] [place] [address] Daisha Crane MD Pain 11/13/2024 Travel 11/03/2024 Orders Only GENERIC EXTERNAL DATA DEPARTMENT Provider, Generic External Data 10/30/2024 Telephone [facility] [address] [place] [address] Daisha Crane MD 10/27/2024 Refill [facility] [address] [place] [address] Tanika Arenas ANP Dyslipidemia 10/26/2024 Refill [facility] [address] [place] [address] Daisha Crane MD Pain 10/25/2024 Refill [facility] MED[facility]INE [address] [place] [phone] Daisha Crane MD Vitamin D deficiency 10/09/2024 Orders Only [facility] [address] [place] [address] Daisha Crane MD 09/27/2024 Refill [facility] [address] [place] [address] Daisha Crane MD Dyslipidemia 09/26/2024 Orders Only [facility] [address] [place] [phone] Daisha Crane MD Type 2 diabetes mellitus with hyperglycemia, without long-term current use of insulin ([facility]) (Primary Dx); Hypertension, unspecified type 09/26/2024 Telephone [facility] [address] [place] [phone] Daisha Crane MD 09/26/2024 Travel 09/25/2024 Refill [facility] [address] [place] [address] Loyda Banda RN Pain 09/25/2024 Telephone [facility] [address] [place] [address] Daisha Crane MD Med Refill 09/18/2024 Refill [facility] [address] [place], [place] [phone] Daisha Crane MD Pain; Mild intermittent asthma without complication 09/11/2024 10:00 AM EST Telemedicine [facility] [address] [place] [address] Loyda Banda RN Chronic right shoulder pain 09/11/2024 Travel 09/06/2024 Telephone [facility] [address] [place] [address] Marilee Lan [place] Lung Cancer Screening 09/04/2024 9:45 AM EST Office Visit [facility] [address] [place] [address] Daisha Crane MD Type 2 diabetes mellitus without complication, unspecified whether penitentiary insulin use (CMS/HCC) (Primary Dx); Primary hypertension; Rheumatoid arthritis involving multiple sites with positive rheumatoid factor (CMS/HCC); Chronic right shoulder pain; Enlarged and hypertrophic nails; Heart murmur; Anemia, unspecified type; Dyslipidemia; Transaminitis; Encounter for immunization; Tobacco dependence; Pulmonary emphysema, unspecified emphysema type (CMS/HCC); Ascending aorta dilation (CMS/HCC); History of prostate cancer; oil heaterman (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) use of opiate analgesic; Osteoporosis, unspecified osteoporosis type, unspecified pathological fracture presence; Secondary hyperparathyroidism (CMS/HCC); Other specified health status 09/04/[address] [address] [place] Durable Medical Equipment 09/04/2024 Travel from Last 3 Months Immunizations Name Administration Dates Next Due Hep A, Adult 12/02/2009,05/20/2009 Hep B, adult 12/02/2009,08/08/2009,05/20/2009 Influenza High-dose Quadriva lent Preservative Free 08/17/2023,10/01/2020 Influenza injectable quadriv alent IIV4 with preservative 08/26/2016,07/15/2015 Influenza injectable quadriv alent preservative free 09/28/2022,08/20/2021,08/10/2019,07/23 Influenza, High Dose Seasona l, Preservative Free 07/11/2024,08/01/2018,08/11/2017 Influenza, IIV3, injectable 09/18/2020,1 ,08/08/2009,08/23,10/26/2006,08/11/2005,10/23/2004 ,08/14/2003,08/23/2002,10/01/2001 Influenza, Split (incl. jamshid fied surface antigen) 08/03/2013,09/13/2012 Influenza, Unspecified 09/28/2022 Influenza, seasonal, injecta ble, preservative free 11/10/2018 Moderna Covid-19 Vaccine 12+ 05/18/2022, 11/26/2021,01/23/2021,12/26 Pfizer Covid-19 Vaccine 12+ 09/04/2024 Pfizer Covid-19 Vaccine 12+ Bivalent 06/04/2023 Pneumococcal Conjugate PCV 13 05/15/2016 Pneumococcal Conjugate PCV 20 08/17/2023 Pneumococcal Polysaccharide PPSV23 08/11/2017,,10/30/2002 RSV Bivalent 04/11/2024 TD (adult), 2 Lf tetanus tox oid, preservative free, adsorbed 02/01/2007,08/01/2003,11/01/1995 Tdap 06/04/2023,05/18/2012 Zoster, Recombinant 05/10/2020,12/25/2019 Zoster, live 05/15/2016 Social History Tobacco Use Types Packs/Day Years Used Date Smoking Tobacco: Every Day Cigarettes Passive Smoke Exposure: Current Smokeless Tobacco: Never Tobacco Cessation:Ready to Q uit: Not Asked; Counseling Given: Not Answered Depression Answer Date Recorded Patient Health Questionnaire-9 [...] not to disclose 2021 10:16 AM EDT Last Filed Vital Signs Vital Sign Reading Time Taken Comments Blood Pressure 110/50 11/13/2024 9:20 AM EST Pulse 70 11/13/2024 9:20 AM EST Temperature 36.3 ??C (97.3 ??F) 09/04/2024 10:[address] Respiratory Rate 18 09/04/2024 10:04 AM EST Oxygen Saturation 98% 09/04/2024 10:04 AM EST Inhaled Oxygen Concentration - - Weight 73 kg (161 lb) 09/04/2024 10:04 AM EST Height 167.6 cm (5' 6 ) 09/04/2024 10:04 AM EST Body Mass Index 25.99 09/04/2024 10:04 AM EST Plan of Treatment Upcoming Encounters Date Type Department Care Team (Late st Contact Info) Description 12/15/2024 9:30 AM EST Clinical Support [facility] MED[facility]INE [address] [place] [id number] Loyda Banda, RN [address] [place] [address] 01/22/2025 9:00 AM EDT Medication Management [facility] [address] [place] [phone] Lisa Liao, PharmD [address] [place] [address] Health Maintenance Due Date Last Done Comments Diabetes: Hemoglobin A1C 03/04/2025 024, 04/06/2024, 02/08/2024, Additional history exists Depression Screening 04/06/2025 04/06/2024, 04/06/20 24 Diabetes: Foot Exam 04/06/2025 04/06/2024, 04/06/2024, 04/06/2024 SDOH Screening 04/06/2025 04/06/2024 Eye Exam 05/13/2025 05/13/2023, 05/01, 05/13/2023, Additional history exists Alcohol/Substance Use Screening 09/04/2025 09/04/2024 Tobacco Screening 09/04/2025 09/04/2024 Diabetes: Urine Protein Screening 09/15/2025 09/15/2024, 06/17/2023 Lipid Panel 10/09/2025 10/09/2024, 01/30, 06/17/2023, Additional history exists DTaP/Tdap/Td Vaccines (3 - Td or Tdap) 06/04/2033 06/04/2023, 05/18/2012, 02/01/2007, Additional history exists Hepatitis A Vaccines Completed 12/02/2009, 05/20/20 09 Hepatitis B Vaccines Completed 12/02/2009, 08/08/2009, 05/20/2009 Zoster Vaccines Completed 05/10/2020, 12/03, 05/15/2016 Colonoscopy Discontinued 12/21/2020 Colorectal Cancer Screening Discontinued Pneumococcal Vaccine: 50+ Years Completed 08/17/2023, 08/11/2017, 05/15/2016, Additional history exists Hepatitis C Screening Completed 11/11/2023, 014 RSV Patients and Patients Aged 60 years or older Completed 04/11/2024 Influenza Vaccine Completed 07/11/2024, , 09/28/2022, Additional history exists COVID-19 Vaccine Completed 09/04/2024, 01/2023, 05/18/2022, Additional history exists CT Colonography Discontinued FIT DNA/Cologuard Discontinued FIT Discontinued FOBT Discontinued HIB Vaccines Aged Out No longer eligi ble based on patient's age to complete this topic HPV Vaccines Aged Out No longer eligi ble based on patient's age to complete this topic IPV Vaccines Aged Out No longer eligi ble based on patient's age to complete this topic Meningococcal Vaccine Aged Out No oscar louisa eligible based on patient's age to complete this topic RSV under 20 months Aged Out No longe r eligible based on patient's age to complete this topic Rotavirus Vaccines Aged Out No longer eligible based on patient's age to complete this topic Sigmoidoscopy Discontinued Goals Goal Patient Goal Type Associated Problems Recent Progress Patient-Stated? Author Blood Pressure < 140/90 Blood Pressure 110/50(2024 9:20 AM EST) No Lisa Anguiano PharmD Hemoglobin A1c < 8 Result Component 6.9( 10:06 AM EST) No Daveys-Lisa Donaldson PharmD Procedures Procedure Name Priority Date/Time Associated Diagnosis Comments SED RATE BY MODIFIED WESTERGREN Routine 11/03/2024 8:55 AM EST CBC WITH AUTO DIFFERENTIAL Routine 11/03/2024 8:55 AM EST BASIC METABOLIC PANEL Routine 10/09/2024 8:05 AM EST HEPATIC FUNCTION PANEL Routine 10/09/2024 8:05 AM EST Transaminitis LIPID PANEL, STANDARD Routine 10/09/2024 8:05 AM EST Dyslipidemia TSH W/REFLEX TO FT4 Routine 10/09/2024 8 :05 AM EST Anemia, unspecified type IRON AND TOTAL IRON BINDING CAPACITY Routine 10/09/2024 8:05 AM EST Anemia, unspecified type FERRITIN Routine 10/09/2024 8:05 AM EST Anemia, unspecified type ALBUMIN, RANDOM URINE W/CREATININE Routine 09/15/2024 8:03 AM EST Type 2 diabetes mellitus without complication, unspecified whether termite inspector insulin use ([facility]) VITAMIN B12 Routine 09/15/2024 8:03 AM EST Anemia, unspecified type FOLATE, SERUM Routine 09/15/2024 8:03 AM EST Anemia, unspecified type CBC WITH AUTO DIFFERENTIAL Routine 09/15/2024 8:03 AM EST Anemia, unspecified type POCT GLYCATED HEMOGLOBIN, TOTAL Routine 09/04/2024 10:06 AM EST Type 2 diabetes mellitus without complication, unspecified whether penitentiary insulin use (CMS/HCC) POCT GLUCOSE Routine 09/04/2024 10:06 AM EST Type 2 diabetes mellitus without complication, unspecified whether penitentiary insulin use (CMS/HCC) HEPATITIS PANEL, GENERAL Routine 11/11/2023 10:39 AM EST HM COLONOSCOPY Routine 12/21/2020 from Last 3 Months or Most Recently Relevant to Health Maintenance Results * (ABNORMAL) CBC auto differential (11/03/2024 8:55 AM EST) Only the most recent of2 resultswithin the time period is included. White Blood Count 9.4 4.8 - 10.8 X10*3/uL [facility] Red Blood Count 4.09(L) 4.60 - 5.80 X10*6/uL [facility] Hemoglobin 10.7(L) 14.0 - 18.0 g/dl [facility] Hematocrit 34.8(L) 42.0 - 52.0 % [facility] Mean Corpuscular Volume 85.1 80.0 - 98.0 fL [facility] Mean Corpuscular Hemoglobin 26.2(L) 27.0 - 33.0 pg [facility] Mean Corpuscular HGB Conc 30.7(L) 31.0 - 36.0 g/dl [facility] Red Cell Distribution Width 19.5(H) 11.0 - 16.0 % [facility] Platelet Count 188 160 - 400 X10*3/uL [facility] Mean Platelet Volume 9.7 9.4 - 12.4 fL [facility] Neutrophils Percent Auto 50.3 45 - 73 % [facility] Imm Gran Pct Auto 0.3 0.0 - 0.4 % [facility] Lymphocytes Percent Auto 37.2 20 - 40 % [facility] Monocytes Percent Auto 9.0 2 - 11 % [facility] Eosinophils Percent Auto 2.7 0 - 4 % [facility] Basophils Percent Auto 0.5 0 - 2 % [facility] NRBC Pct Auto 0.0 0.0 - 0.2 /100WBC [facility] Neutrophils Absolute Auto 4.7 2.0 - 8.3 x10*3/uL [facility] Imm Gran Abs Auto 0.03 0.00 - 0.03 X10*3/uL [facility] Lymphocytes Absolute Auto 3.5 1.2 - 4.9 X10*3/uL [facility] Monocytes Absolute Auto 0.9 0.1 - 1.2 X10*3/uL [facility] Eosinophils Absolute Auto 0.3 0.0 - 0.4 X10*3/uL [facility] Basophils Absolute Auto 0.1 0.0 - 0.2 X10*3/uL [facility] NRBC Abs Auto 0.000 0.0 - 0.012 X10*3/uL [facility] 11/03/2024 8:55 AM EST 11/03/2024 8:55 AM EST us Generic External Data Provider LAB BLOOD ORDERAB LES Final Result [facility] [address] [place] [phone] * Sed Rate by Garth Bailon (11/03/2024 8:55 AM EST) Erythrocyte Sedimentation Rate 2 0 - 15 MM/HR [facility] Comment:Patients with polycy themia and many hemoglobin abnormalitiesmay have depressed sed rates whereas patients with anemiamay have elevated sed rates. 11/03/2024 8:55 AM EST 11/03/2024 8:55 AM EST us Generic External Data Provider LAB BLOOD ORDERAB LES Final Result Performing Organization Address [facility] Co de Phone Number [facility] [address] [place] [phone] * TSH with Reflex to Free T4 (10/09/2024 8:05 AM EST) TSH reflex Free T4 2.09 0.32 - 4.0 uIU/mL [facility] Blood 10/09/2024 8:05 AM EST 10/09/2024 11:50 AM EST us Daisha Crane MD LAB BLOOD ORDERABLES Final Result Performing Organization Address [facility] Co de Phone Number [facility] [address] [place] [phone] * Iron And Total Iron Binding Capacity (10/09/2024 8:05 AM EST) Iron 48 45 - 160 mcg/dL [facility] Total Iron Binding Capacity 331 228 - 428 mcg/dL [facility] Percent Iron Saturation 15 15 - 50 % [facility] Unsaturated Iron Binding 283 ug/dL [facility] Blood Venous blood specimen / Unknown 10/09/2024 8:05 AM EST 10/09/2024 11:50 AM EST us Daisha Crane MD LAB BLOOD ORDERABLES Final Result Performing Organization Address [facility] Co de Phone Number [facility] [address] [place] [phone] * (ABNORMAL) Ferritin (10/09/2024 8:05 AM EST) Ferritin 18(L) 20 - 250 ng/mL [facility] Blood Venous blood specimen / Unknown 10/09/2024 8:05 AM EST 10/09/2024 11:50 AM EST Diasha Crane MD LAB BLOOD ORDERABLES Final Result Performing Organization Address City/[facility]/ZIP Co de Phone Number [facility] [address] [place] [phone] * (ABNORMAL) Hepatic Function Panel (10/09/2024 8:05 AM EST) Bilirubin, Total 0.9 0.0 - 1.0 mg/dL [facility] Bilirubin, Direct 0.3 0.0 - 0.5 mg/dL [facility] Aspartate Amino Transferase 33 5 - 37 U/L [facility] Alanine Aminotransferase 33 0 - 40 U/L [facility] Total Protein 6.3(L) 6.5 - 8.0 g/dL [facility] Albumin Level 4.2 3.5 - 5.0 g/dL [facility] Alkaline Phosphatase 48 39 - 117 U/L [facility] Blood Venous blood specimen / Unknown 10/09/2024 8:05 AM EST 10/09/2024 11:50 AM EST Daisha Crane MD LAB BLOOD ORDERABLES Final Result Performing Organization Address [facility] Co de Phone Number [facility] [address] [place] [phone] * (ABNORMAL) Lipid Panel, Standard (10/09/2024 8:05 AM EST) Triglycerides 122 <150 mg/dL [facility] Comment:Desirable Triglyceri de: less than 150 mg/dLBorderline High Triglyceride 150-199 mg/dLHigh Triglyceride: 200-499 mg/dLVery High Triglyceride: greater than or equal to 5OO mg/dL Cholesterol 104 <200 mg/dL [facility] Comment:Desirable Cholestero l: less than 200 mg/dLBorderline High Cholesterol: 200-239 mg/dLHigh Cholesterol: greater than 239 mg/dL LDL Cholesterol Calculated 43 <100 mg/dL [facility] Comment:Desirable LDL: less than 100 mg/dLNear Optimal/Above Optimal LDL: 110- 129 mg/dLBorderline High LDL: 130-159 mg/dLHigh LDL: 160-189 mg/dLVery High LDL: greater than or equal to 190 mg/dL HDL Cholesterol 37(L) >40 mg/dL [facility] Comment:Desirable HDL: great er than 40 mg/dL Note: This HDL assay may give artificially low results in patients with liver disease. Blood Venous blood specimen / Unknown 10/09/2024 8:05 AM EST 10/09/2024 11:50 AM EST Daisha Crane MD LAB BLOOD ORDERABLES Final Result [facility] [address] [place] [phone] * Basic Metabolic Panel (10/09/2024 8:05 AM EST) Sodium 140 135 - 145 mmol/L [facility] Potassium 3.7 3.3 - 5.1 mmol/L [facility] Chloride 103 96 - 108 mmol/L [facility] Carbon Dioxide 27 22 - 29 mmol/L [facility] Anion Gap 14 12 - 20 [facility] Urea Nitrogen (BUN) 10 9 - 16 mg/dL [facility] Creatinine, Serum 0.75 0.5 - 1.4 mg/dL [facility] Estimated Glomerular Filt Rate >60 [facility] Comment:Chronic Kidney Disea se: Estimated GFR < 60 mL/min/1.76v4Yssrac Kidney Disease: Estimated GFR < 15 mL/min/1.73m2 Glucose 80 60 - 115 mg/dL [facility] Calcium 10.1 8.4 - 10.2 mg/dL [facility] 10/09/2024 8:05 AM EST 10/09/2024 11:24 AM EST Daisha Crane MD LAB BLOOD ORDERABLES Final Result Performing Organization Address [facility] Co de Phone Number [facility] [address] [place] [phone] * Albumin, Random Urine W/Creatinine (09/15/2024 8:03 AM EST) Creatinine, Urine 107.16 mg/dL [facility] Microalbumin Urine 20.0 mg/L [facility] Microalbum Creatinine Ratio Ur 18.6 <30 ug/mg cr [facility] Comment:Albumin/Creatinine R atio Reference Ranges: Normal: < 30 ug/mg creatinine Microalbuminuria: 30 - 300 ug/mg creatinineClinical Albuminuria: > 300 ug/mg creatinine Urine 09/15/2024 8:03 AM EST 09/15/2024 11:09 AM EST Daisha Crane MD LAB URINE ORDERABLES Final Result Performing Organization Address [facility] de Phone Number [facility] [address] [place] [phone] * Folate, Serum (09/15/2024 8:03 AM EST) Folate 10.1 > or = 4.0 ng/mL [facility] Comment:Reference Values:> o r = 4.0 ng/mL< 4.0 ng/mL suggests folate deficiency Methotrexate, aminopterin and folinic acid(leucovorin) are chemotherapeutic agents whose molecularstructures are similar to folate; therefore, the Architectfolate assay cannot be used for patients using these drugs. Blood Venous blood specimen / Unknown 09/15/2024 8:03 AM EST 09/15/2024 11:03 AM EST Daisha Crane MD LAB BLOOD ORDERABLES Final Result Performing Organization Address [facility] Co de Phone Number [facility] [address] [place] [phone] * Vitamin B12 (09/15/2024 8:03 AM EST) [facility] Vitamin B12 414 200 - 900 pg/mL [facility] Comment:NORMAL 200-900 PG/ML INDETERMINATE 160-199 PG/ML DEFICIENT < 160 PG/ML Blood Venous blood specimen / Unknown 09/15/2024 8:03 AM EST 09/15/2024 11:03 AM EST Daisha Crane MD LAB BLOOD ORDERABLES Final Result [facility] [address] [place] [phone] * (ABNORMAL) POCT HGB A1C (09/04/2024 10:06 AM EST) [facility] Hemoglobin A1C 6.9(A) 4.0 - 6.0 % QC Media Lot # [id number] Lot# Expiration Date Blood 09/04/2024 10:0 6 AM EST Daisha Crane MD POINT OF CARE TEST ENTER/E DIT ORDERABLES Final Result * POCT Glucose (09/04/2024 10:06 AM EST) [facility] Glucose Blood, POC 185 60 - 200 mg/dL Comment:Random QC Media Lot # [id number] Lot# Expiration Date ,025 Blood Capillary blood specimen / Unknown 09/04/2024 10:06 AM EST Daisha Crane MD POINT OF CARE TEST ENTER/E DIT ORDERABLES Final Result * Hepatitis Panel, General (11/11/2023 10:39 AM EST) [facility] Hepatitis A IgM Nonreactive Nonreactive [facility] Comment:IgM antibodies to WAGONER V not detected; does not exclude earlyacute or recovered HAV infection. ~Hepatitis B Surface Antibody NONREACTIVE Nonreactive [facility] Comment:Nonreactive: < 8.00 mIU/mL Hepatitis B Core Antibody Nonreactive Nonreactive [facility] Hepatitis C Antibody Nonreactive Nonreactive [facility] Comment:Antibodies to HCV no t detected; does not exclude early acuteHCV infection. Hepatitis B Surface Ag Negative Negative [facility] 11/11/2023 10:3 9 AM EST 11/11/2023 10:39 AM EST Generic External Data Provider LAB BLOOD ORDERAB LES Final Result Performing Organization Address City/State/[facility] Co de Phone Number [facility] [address] [place] [phone] * Colonoscopy (12/21/2020) Colonoscopy tubular adenoma with Dr. Rodríguez Historical Provider HEALTH MAINTENANCE Final Result from Last 3 Months or Most Recently Relevant to Health Maintenance Insurance [facility] Advance Directives Documents on File Type Date Recorded Patient Senior [employer] Advance Directives and Living Will 04/06/2024 Health Care Proxy 04/06/24 Care Teams Commission Specialist Relationship Specialty Start Date End Date Daisha Crane MD [address] [place] [address] PCP - General Family Medicine 11/01/18 Lisa Liao, GenevaD [address] [place] [address] Pharmacist Internal Medicine 04/06/23 Alissa Santillan MD [address] [place] [address] Rheumatology 11/09/24 Sharon Guardado [address] [place] [address] Cardiology 11/13/24 Cedric Lujan MD [address] [place] [address] Orthopaedic Surgery 11/23/24
--- OUTSIDE RECORDS SUMMARY | 2024-12-01 08:11 | XMS_ITS | Encounter Summary ---
Author Organization [employer] Address [address] [facility] 7t [place] [address] Care Team Providers Care Modeler Name Role Phone Daisha Crane MD Primary Care Provider +1- [phone] Lisa Liao PharmD Unavailable +1- [phone] Alissa Santillan MD Unavailable Sharon Guardado Unavailable Reason for Visit * Reason Onset Date Comments Med Refill 08/02/2023 Encounter Details Date Type Department Care Team (Late st Contact Info) Description 08/02/2023 Telephone [facility] [address] [place], [place] [phone] Daisha Crane MD [address] [place], [place] [phone] Med Refill Social History Tobacco Use Types [...] * Telephone Encounter - Christianne Hampton - 08/02/2023 9:56 AM EDT Tc from pt requesting a med refill for oxyCODONE (Roxicodone) 5 MG immediate release tablet documented in this encounter Plan of Treatment Upcoming Encounters Date Type Department Care Team (Late st Contact Info) Description 12/15/2024 9:30 AM EST Clinical Support [facility] [address] [place] [phone] Loyda Banda RN [address] [place] [address] 01/22/2025 9:00 AM EDT Medication Management [facility] [address] [place] [phone] Lisa Liao PharmD [address] [place] [phone] documented as of this encounter Goals Goal [...] documented as of this encounter Care Teams Modeler Relationship Specialty Start Date End Date Daisha Crane MD [address] [place] [address] PCP - General Family Medicine 11/01/18 Lisa Liao PharmD [address] [place] [address] Pharmacist Internal Medicine 04/06/23 Alissa Santillan MD [address] [place] [address] Rheumatology 11/09/24 Sharon Guardado [address]rd [place] [address] Cardiology 11/13/24 documented as of this encounter
--- OUTSIDE RECORDS SUMMARY | 2024-12-01 08:11 | XMS_ITS | Encounter Summary ---
Author Organization [employer] [facility] Address [address] [facility] 7t [place] [address] Care Team Providers Care Mobile Device Developer Name Role Phone Daisha Crane MD Primary Care Provider + [phone] Lisa Liao PharmD Unavailable [phone]- [phone] Alissa Santillan MD Unavailable Sharon Guardado Unavailable Cedric Lujan MD Unavailable Encounter Details Date Type Department Care Team (Latest Contact Info) Description 03/10/2019 Abstract [facility] CONVERSION[facility] Dental, Provider, DDS Social History Tobacco Use Types Packs/Day Years [...] Description 12/15/2024 9:30 AM EST Clinical Support [facility] [address] [place] [address] [phone] Loyda Banda RN [address] [place], [place] [phone] 01/22/2025 9:00 AM EDT Medication Management [facility] [address] [place], [place] [phone] Lisa Liao, PharmD [address] [place], [place] [phone] documented as of this encounter Visit Diagnoses Not on filedocumented in this encounter Care Teams Mobile Device Developer Relationship Specialty Start Date End Date Daisha Crane MD [address] [place] [address] PCP - General Family Medicine 11/01/18 Lisa Liao, GenevaD [address] [place] [address] Pharmacist Internal Medicine 04/06/23 Alissa Santillan MD [address] [place] [address] Rheumatology 11/09/24 Sharon Guardado [address] [place] [address] Cardiology 11/13/24 Cedric Lujan MD [address] [place] [address] Orthopaedic Surgery 11/23/24 documented as of this encounter
--- OUTSIDE RECORDS SUMMARY | 2024-12-01 08:12 | XMS_ITS | Encounter Summary ---
Author Organization [employer] [facility] Address [address] [facility] 7t [place] [address] Care Team Providers Care Outside Salesperson Name Role Phone Daisha Crane MD Primary Care Provider +1- [phone] Lisa Liao PharmD Unavailable Alissa Santillan MD Unavailable Sharon Guardado Unavailable Cedric Lujan MD Unavailable Reason for Visit * Reason Onset Date Comments Med Refill 06/07/2023 Encounter Details Date Type Department Care Team (Late st Contact Info) Description 06/07/2023 Telephone [facility] [address] [place], [place] [phone] Hiram Palma MD [address] [place], [place] [phone] Med Refill Social History Tobacco Use Types [...] * Telephone Encounter - Richa Landin - 06/07/2023 9:38 AM EDT Tc from pt requesting med refill on oxyCODONE (Roxicodone) 5 MG immediate release tablet Please sent to [facility] - [place], [place] - [address] [place] [address] documented in this encounter Plan of Treatment Upcoming Encounters Date Type Department Care Team (Late st Contact Info) Description 12/15/2024 9:30 AM EST Clinical Support [facility] [address] [place] [phone] Loyda Banda RN [address] [place] [address] 01/22/2025 9:00 AM EDT Medication Management [facility] [address] [place] [phone] Lisa Liao PharmD [address] [place] [phone] documented as of this encounter Goals Goal Patient Goal Type Associated Problems Recent Progress Patient-Stated? Author Blood Pressure < 140/90 Blood Pressure 110/50( 025 9:20 AM EST) No Lisa Anguiano PharmD documented as of this encounter Visit Diagnoses Not on filedocumented in this encounter Additional Health Concerns Assessment Noted Time PHQ-9 Depression Total Score: 0 11/23/19 23 10:39 AM EST documented as of this encounter Care Teams Outside Salesperson Relationship Specialty Start Date End Date Daisha Crane MD [address] [place] [phone] PCP - General Family Medicine 11/01/18 Lisa Liao PharmD [address] [place] [phone] Pharmacist Internal Medicine 04/06/[address] Alissa [address] [place] [address] Rheumatology 11/09/24 Sharon Guardado [address] [place] [address] Cardiology 11/13/24 Cedric Lujan MD [address] [place] [address] Orthopaedic Surgery 11/23/24 documented as of this encounter
--- OUTSIDE RECORDS SUMMARY | 2024-12-01 08:12 | XMS_ITS | Encounter Summary ---
Author Organization [employer] Address [address] [facility] 7t [place] [address] Care Team Providers Care Hand Rug Cleaner Name Role Phone Daisha Crane MD Primary Care Provider +- [phone] Lisa Liao PharmD Unavailable [phone]- [phone] Alissa Santillan MD Unavailable Sharon Guardado Unavailable Cedric Lujan MD Unavailable Encounter Details Date Type Department Care Team (Late st Contact Info) Description 11/18/2023 Telephone [facility] [address] [place], [place] [phone] Daisha Crane MD [address] [place], [place] [phone] Social History Tobacco Use Types Packs/Day Years Used Date Smoking Tobacco: Every Day Cigarettes Passive Smoke Exposure: Current Smokeless Tobacco: Never Depression Answer Date Recorded Patient Health Questionnaire-9 Score 0 11/23/2022 Housing Stability Answer Date Recorded What is your housing situation today? I have filippo sharma 08/17/[address] you li ve. Do you have problems with any of the following? None of the above 08/17/2023 Food Insecurity Answer Date Recorded Within the past 12 months, y ou worried that your food would run out before you got money to buy more: Never True 08/17/2023 Within the past 12 months,th e food you bought just didn't last and you didn't have enough money to get more: Never True Transportation Answer Date Recorded In the past 12 months, has l ack of transportation kept you from medical appts, meetings, work or from getting things needed for daily living? No 08/17/2023 Utilities Answer Date Recorded In the past 12 months, has t he electric, gas, oil or water company threatened to shut off services in your home? No 08/17/2023 Depression Answer Date Recorded Patient Health Questionnaire-2 [...] 9:30 AM EST Clinical Support [facility] [address] [place] [phone] Loyda Banda RN [address] [place] [address] 01/22/2025 9:00 AM EDT Medication Management [address] [phone] Lisa Liao PharmD [address] [place] [phone] documented as of this encounter Goals Goal [...] documented as of this encounter Care Teams Hand Rug Cleaner Relationship Specialty Start Date End Date Daisha Crane MD [address] [place] [phone] PCP - General Family Medicine 11/01/18 Lisa Liao, GenevaD [address] [place] [address] Pharmacist Internal Medicine 04/06/23 Alissa Santillan MD [address] [place] [address] Rheumatology 11/09/24 Sharon Guardado [address] [place] [address] Cardiology 11/13/24 Cedric Lujan MD [address] [place] [address] Orthopaedic Surgery 11/23/24 documented as of this encounter
--- OUTSIDE RECORDS SUMMARY | 2024-12-01 08:12 | XMS_ITS | Encounter Summary ---
Author Organization [facility] Address [address] [facility] 7t [place] [address] Care Team Providers Care Aircraft De Icer Installer Name Role Phone Daisha Crane MD Primary Care Provider +1- [phone] Lisa Liao PharmD Unavailable Alissa Santillan MD Unavailable Sharon Guardado Unavailable Cedric Lujan MD Unavailable Reason for Visit * Reason Onset Date Comments Med Refill 03/15/2023 Encounter Details Date Type Department Care Team (Late st Contact Info) Description 03/15/2023 Telephone [facility] 230 [place], [place] [phone] Daisha Crane MD 230 [place], [place] [phone] Med Refill Social History Tobacco Use Types [...] encounter Miscellaneous Notes * Telephone Encounter - Keren Todd - 03/15/2023 1:33 PM EDT TC from pt requesting med refill for medication oxyCODONE (Roxicodone) 5 MG immediate release tablet. documented in this encounter Plan of Treatment Upcoming Encounters Date Type Department Care Team (Late st Contact Info) Description 12/15/2024 9:30 AM EST Clinical Support [facility] [address] [place] [address] Loyda Banda RN 505 [place] [address] 01/22/2025 9:00 AM EDT Medication Management [facility] [address] [place] [address] Lisa Liao PharmD [address] [place] [address] documented as of this encounter Visit Diagnoses Not on filedocumented in this encounter Additional Health Concerns Assessment Noted Time PHQ-9 Depression Total Score: 0 11/23/19 10:39 AM EST documented as of this encounter Care Teams Aircraft De Icer Installer Relationship Specialty Start Date End Date Daisha Crane MD [address] [place] [address] PCP - General Family Medicine 11/01/18 Lisa Liao, PharmD [address] [place] [address] Pharmacist Internal Medicine 04/06/23 Alissa Santillan MD [address] [place] [address] Rheumatology 11/09/24 Sharon Guardado [address] 3rd [place] [address] Cardiology 11/13/24 Cedric Lujan MD [address] [place] [address] Orthopaedic Surgery 11/23/24 documented as of this encounter
--- OUTSIDE RECORDS SUMMARY | 2024-12-01 08:12 | XMS_ITS | Encounter Summary ---
Author Organization [employer] Address [address] [facility] 7t [place] [address] Care Team Providers Care Metal Tank Builder Name Role Phone Daisha Crane MD Primary Care Provider + [phone] Lisa Liao PharmD Unavailable +1- [phone] Alissa Santillan MD Unavailable Sharon Guardado Unavailable Cedric Lujan MD Unavailable Reason for Visit * Reason Comments Med Refill Encounter Details Date Type Department Care Team (Late st Contact Info) Description 02/07/2024 Refill [facility] 230 [place], [place] [phone] Tanika Arenas ANP 230 [place], [place] [phone] Dyslipidemia Social History Tobacco Use Types Packs/Day Years [...] Description 12/15/2024 9:30 AM EST Clinical Support [address] [address] Loyda Banda RN 505 [place] [address] 01/22/2025 9:00 AM EDT Medication Management [address] [address] Lisa Liao PharmD [address] [place] [address] documented as of this encounter Goals Goal Patient Goal Type Associated Problems Recent Progress Patient-Stated? Author Blood Pressure < 140/90 Blood Pressure 110/50(2024 9:20 AM EST) No Daveys-Lisa Donaldson, PharmD Hemoglobin A1c < 8 Result Component 6.9( 10:06 AM EST) No Lisa Anguiano, PharmD documented as of this encounter Visit Diagnoses Diagnosis Dyslipidemia Other and unspecified hyperlipidemia documented in this encounter Additional Health Concerns Assessment Noted Time PHQ-9 Depression Total Score: 0 11/23/19 10:39 AM EST documented as of this encounter Care Teams Metal Tank Builder Relationship Specialty Start Date End Date Daisha Crane MD [address] [place] [address] PCP - General Family Medicine 11/01/18 Lisa Liao, Nidia [address] [place] [address] Pharmacist Internal Medicine 04/06/23 Alissa Santillan MD [address] [place] [address] Rheumatology 11/09/24 Sharon Guardado [address] 3rd [place] [address] Cardiology 11/13/24 Cedric Lujan MD [address] [place] [address] Orthopaedic Surgery 11/23/24 documented as of this encounter
--- OUTSIDE RECORDS SUMMARY | 2024-12-01 08:12 | XMS_ITS | Encounter Summary ---
Author Organization [facility] Address 75 [facility] 7t [place] [address] Care Team Providers Care Food Preparation Worker Name Role Phone Daisha Crane MD Primary Care Provider +- [phone] Lisa Liao PharmD Unavailable Alissa Santillan MD Unavailable Sharon Guardado Unavailable Cedric Lujan MD Unavailable Encounter Details Date Type Department Care Team (Late st Contact Info) Description 03/15/2023 Orders Only [facility] 505 [place], [place] [phone] Jenn Polk LPN Social History Tobacco Use [...] 12/15/2024 9:30 AM EST Clinical Support [facility] MED[facility]INE 230 [place], [place] [phone] Loyda Banda, RN 505 [place] [address] 01/22/2025 9:00 AM EDT Medication Management [facility] MED[facility]INE 230 [place] [address] Lisa Liao, PharmD 230 [place] [address] documented as of this encounter Visit Diagnoses Not on filedocumented in this encounter Additional Health Concerns Assessment Noted Time PHQ-9 Depression Total Score: 0 11/23/19 10:39 AM EST documented as of this encounter Care Teams Food Preparation Worker Relationship Specialty Start Date End Date Daisha Crane MD 230 [place] [address] PCP - General Family Medicine 11/01/18 Lisa Liao, PharmD 230 [place] [address] Pharmacist Internal Medicine 04/06/23 Alissa Santillan MD [address] [place] [address] Rheumatology 11/09/24 Sharon Guardado [address] 3rd [place] [address] Cardiology 11/13/24 Cedric Lujan MD [address] [place] [address] Orthopaedic Surgery 11/23/24 documented as of this encounter
--- OUTSIDE RECORDS SUMMARY | 2024-12-01 08:12 | XMS_ITS | Encounter Summary ---
Author Organization [employer] Address 75 [facility] 7t [place] [address] Care Team Providers Care Bead Trimmer Name Role Phone Daisha Crane MD Primary Care Provider +- [phone] Lisa Liao PharmD Unavailable [phone] Alissa Santillan MD Unavailable Sharon Guardado Unavailable Cedric Lujan MD Unavailable Reason for Visit * Reason Comments Med Refill Encounter Details Date Type Department Care Team (Late st Contact Info) Description 09/03/2023 Refill [facility] 230 [place], [place] [phone] Key Gregory MD 230 [place], [place] [phone] Tinea versicolor Social History Tobacco Use Types Packs/Day Years [...] Clinical Support [facility] [address] [place] [address] Loyda Banda RN 505 [place] [address] 01/22/2025 9:00 AM EDT Medication Management [address] [address] Lisa Liao, PharmD [address] [place] [address] documented as of this encounter Goals Goal Patient Goal Type Associated Problems Recent Progress Patient-Stated? Author Blood Pressure < 140/90 Blood Pressure 110/50(2024 9:20 AM EST) No Daveys-Lisa Donaldson, PharmD Hemoglobin A1c < 8 Result Component 6.9( 10:06 AM EST) No Lisa Anguiano, PharmD documented as of this encounter Visit Diagnoses Diagnosis Tinea versicolor Pityriasis versicolor documented in this encounter Additional Health Concerns Assessment Noted Time PHQ-9 Depression Total Score: 0 11/23/19 10:39 AM EST documented as of this encounter Care Teams Bead Trimmer Relationship Specialty Start Date End Date Daisha Crane MD 230 [place] [address] PCP - General Family Medicine 11/01/18 Lisa Liao, GenevaD 230 [place] [address] Pharmacist Internal Medicine 04/06/23 Alissa Santillan MD [address] [place] [address] Rheumatology 11/09/24 Sharon Guardado [address] 3rd [place] [address] Cardiology 11/13/24 Cedric Lujan MD [address] [place] [address] Orthopaedic Surgery 11/23/24 documented as of this encounter
--- OUTSIDE RECORDS SUMMARY | 2024-12-01 08:12 | XMS_ITS | Encounter Summary ---
Author Organization [facility] Address [address] [facility] 7t [place] [address] Care Team Providers Care Brim Pouncing Machine Operator Name Role Phone Daisha Crane MD Primary Care Provider +1- [phone] Lisa Liao PharmD Unavailable Alissa Santillan MD Unavailable Sharon Guardado Unavailable Cedric Lujan MD Unavailable Encounter Details Date Type Department Care Team (Late st Contact Info) Description 06/01/2023 Abstract [facility] MEDICINE [address] [place] [address] [phone] Daisha Crane MD 230 [place], [place] [phone] Social History Tobacco Use Types Packs/Day Years [...] 9:30 AM EST Clinical Support [facility]INE 230 [place] [address] Loyda Banda, SO 505 [place] [address] 01/22/2025 9:00 AM EDT Medication Management [facility]INE 230 [place] [address] Lisa Liao PharmD 230 [place] [address] documented as of this encounter Goals Goal [...] documented as of this encounter Care Teams Brim Pouncing Machine Operator Relationship Specialty Start Date End Date Daisha Crane MD 230 [place] [address] PCP - General Family Medicine 11/01/18 Lisa Liao, PharmD [address] [place] [address] Pharmacist Internal Medicine 04/06/23 Alissa Santillan MD [address] [place] [address] Rheumatology 11/09/24 Sharon Guardado [address] 3rd [place] [address] Cardiology 11/13/24 Cedric Lujan MD [address] [place] [address] Orthopaedic Surgery 11/23/24 documented as of this encounter
--- OUTSIDE RECORDS SUMMARY | 2024-12-01 08:12 | XMS_ITS | Encounter Summary ---
Author Organization [employer] Address [address] [facility] 7t [place] [address] Care Team Providers Care Vitamin Manager Name Role Phone Daisha Crane MD Primary Care Provider +- [phone] Lisa Liao PharmD Unavailable Alissa Santillan MD Unavailable Sharon Guardado Unavailable Cedric Lujan MD Unavailable Reason for Visit * Reason Comments Med Refill Encounter Details Date Type Department Care Team (Late st Contact Info) Description 02/06/2024 Refill [facility] 230 [place], [place] [phone] Lisa Liao, PharmD 230 [place] [address] Social History Tobacco Use Types Packs/Day Years [...] encounter Miscellaneous Notes * Telephone Encounter - Lisa Liao PharmD - 02/18/2024 7:42 AM EDT Refill provided by PCP documented in this encounter Plan of Treatment Upcoming Encounters Date Type Department Care Team (Late st Contact Info) Description 12/15/2024 9:30 AM EST Clinical Support [facility] [address] [place] [address] Loyda Banda RN 505 [place] [address] 01/22/2025 9:00 AM EDT Medication Management [facility] [address] [place] [address] Lisa Liao PharmD [address] [place] [address] documented as of this encounter Goals Goal Patient Goal Type Associated Problems Recent Progress Patient-Stated? Author Blood Pressure < 140/90 Blood Pressure 110/50(2024 9:20 AM EST) No Lisa Anguiano PharmD Hemoglobin A1c < 8 Result Component 6.9( 10:06 AM EST) No Piers-Gambl e, Lisa, PharmD documented as of this encounter Visit Diagnoses Not on filedocumented in this encounter Additional Health Concerns Assessment Noted Time PHQ-9 Depression Total Score: 0 11/23/19 23 10:39 AM EST documented as of this encounter Care Teams Vitamin Manager Relationship Specialty Start Date End Date Daisha Crane MD 230 [place] [address] PCP - General Family Medicine 11/01/18 Lisa Liao, PharmD 230 [place] [address] Pharmacist Internal Medicine 04/06/23 Alissa Santillan MD [address] [place] [address] Rheumatology 11/09/24 Sharon Guardado [address] 3rd [place] [address] Cardiology 11/13/24 Cedric Lujan MD [address] [place] [address] Orthopaedic Surgery 11/23/24 documented as of this encounter
--- OUTSIDE RECORDS SUMMARY | 2024-12-01 08:12 | XMS_ITS | Encounter Summary ---
Author Organization [employer] Address [address] [facility] 7t [place] [address] Care Team Providers Care Business Center Manager Name Role Phone Daisha Crane MD Primary Care Provider +- [phone] Lisa Liao PharmD Unavailable Alissa Santillan MD Unavailable Sharon Guardado Unavailable Cedric Lujan MD Unavailable Reason for Visit * Reason Onset Date Comments Med Refill 11/24/2023 Encounter Details Date Type Department Care Team (Late st Contact Info) Description 11/24/2023 Telephone [facility] 230 [place], [place] [phone] Daisha Crane MD 230 [place], [place] [phone] Med Refill Social History Tobacco Use Types Packs/Day Years Used Date Smoking Tobacco: Every Day Cigarettes Passive Smoke Exposure: Current Smokeless Tobacco: Never Depression Answer Date Recorded Patient Health Questionnaire-9 Score 0 11/23/2022 Housing Stability Answer Date Recorded What is your housing situation today? I have filippo zachary 08/17/[address] you li [...] * Telephone Encounter - Tara Rice - 11/24/2023 9:19 AM EST TC from pt requesting medication refill. Medications needing refill : oxyCODONE (Roxicodone) 5 MG immediate release tablet To be sent to: [facility] - [place], [place] - [address] [place] [address] documented in this encounter Plan of Treatment Upcoming Encounters Date Type Department Care Team (Late st Contact Info) Description 12/15/2024 9:30 AM EST Clinical Support [facility] [address] [place] [address] Loyda Banda RN 505 [place] [address] 01/22/2025 9:00 AM EDT Medication Management [facility] [address] [place] [address] Lisa Liao PharmAj 230 [place] [address] documented as of this encounter Goals Goal Patient Goal Type Associated Problems Recent Progress Patient-Stated? Author Blood Pressure < 140/90 Blood Pressure 110/50(2024 9:20 AM EST) No PierLisa Trammell PharmD Hemoglobin A1c < 8 Result Component 6.9( 4 10:06 AM EST) No Lisa Anguiano PharmD documented as of this encounter Visit Diagnoses Not on filedocumented in this encounter Additional Health Concerns Assessment Noted Time PHQ-9 Depression Total Score: 0 11/23/19 23 10:39 AM EST documented as of this encounter Care Teams Business Center Manager Relationship Specialty Start Date End Date Daisha Crane MD 230 [place] [address] PCP - General Family Medicine 11/01/18 Lisa Liao PharmD 230 [place] [address] Pharmacist Internal Medicine 04/06/23 Alissa Santillan MD [address] [place] [address] Rheumatology 11/09/24 Sharon Guardado [address] 3rd [place] [address] Cardiology 11/13/24 Cedric Lujan MD [address] [place] [address] Orthopaedic Surgery 11/23/24 documented as of this encounter
--- OUTSIDE RECORDS SUMMARY | 2024-12-01 08:12 | XMS_ITS | Encounter Summary ---
Author Organization [facility] Address [address] [facility] 7t [place] [address] Care Team Providers Care Assistant Broker Name Role Phone Daisha Crane MD Primary Care Provider + [phone] Lisa Liao PharmD Unavailable Alissa Santillan MD Unavailable Sharon Guardado Unavailable Cedric Lujan MD Unavailable Encounter Details Date Type Department Care Team (Late st Contact Info) Description 03/05/2023 Orders Only [facility]INE [address] [place] [address] [phone] Radha Johnson LPN Social History Tobacco Use [...] 9:30 AM EST Clinical Support [facility] 230 [place] [address] Loyda Banda RN 505 [place] [address] 01/22/2025 9:00 AM EDT Medication Management [facility] 230 [place] [address] Lisa Liao, PharmD 230 [place] [address] documented as of this encounter Visit Diagnoses Not on filedocumented in this encounter Additional Health Concerns Assessment Noted Time PHQ-9 Depression Total Score: 0 11/23/19 10:39 AM EST documented as of this encounter Care Teams Assistant Broker Relationship Specialty Start Date End Date Daisha Crane MD 230 [place] [address] PCP - General Family Medicine 11/01/18 Lisa Liao, PharmD 230 [place] [address] Pharmacist Internal Medicine 04/06/23 Alissa Santillan MD [address] [place] [address] Rheumatology 11/09/24 Sharon Guardado [address] 3rd [place] [address] Cardiology 11/13/24 Cedric Lujan MD [address] [place] [address] Orthopaedic Surgery 11/23/24 documented as of this encounter
--- OUTSIDE RECORDS SUMMARY | 2024-12-01 08:12 | XMS_ITS | Encounter Summary ---
Author Organization [employer] Address [address] [facility] 7t [place] [address] Care Team Providers Care Transfer And Pumphouse Operator Name Role Phone Daisha Crane MD Primary Care Provider +- [phone] Lisa Liao PharmD Unavailable +1- [phone] Alissa Santillan MD Unavailable Sharon Guardado Unavailable Cedric Lujan MD Unavailable Reason for Visit * Reason Comments Med Refill Encounter Details Date Type Department Care Team (Late st Contact Info) Description 08/31/2023 Refill [facility] 230 [place], [place] [phone] Key Gregory MD 230 [place], [place] [phone] Tinea versicolor Social History Tobacco Use Types [...] Description 12/15/2024 9:30 AM EST Clinical Support [facility] [address] [place] [address] Loyda Banda RN 505 [place] [address] 01/22/2025 9:00 AM EDT Medication Management [address] [address] Lisa Liao, PharmD [address] [place] [address] documented as of this encounter Goals Goal [...] documented as of this encounter Care Teams Transfer And Pumphouse Operator Relationship Specialty Start Date End Date Daisha Crane MD 230 [place] [address] PCP - General Family Medicine 11/01/18 Lisa Liao, GenevaD 230 [place] [address] Pharmacist Internal Medicine 04/06/23 Alissa Santillan MD [address] [place] [address] Rheumatology 11/09/24 Sharon Guardado [address] 3rd [place] [address] Cardiology 11/13/24 Cedric Lujan MD [address] [place] [address] Orthopaedic Surgery 11/23/24 documented as of this encounter
== END 2024-12-01 08:08 | disposition home or self-care (01) ==
LOC: HO.US 08:07
PROVIDERS: PCP Family Medicine; Visit Provider Nurse Practitioner Family
DX: I77.810 Thoracic aortic ectasia (principal)
CPT/HCPCS: 76706

== ENCOUNTER → 2024-12-01 08:09 | Outpatient (BNV) | payer OTHER, SELFPAY | PROVIDERS: PCP Family Medicine; Visit Provider Radiology Diagnostic Radiology | DX: I77.810 Thoracic aortic ectasia (principal) | CPT/HCPCS: 76706 ==

== ENCOUNTER → 2024-12-07 08:15 | Outpatient (BNVA) | payer OTHER, SELFPAY | PROVIDERS: PCP Family Medicine; Visit Provider Registered Nurse Emergency | DX: M25.511 Pain in right shoulder (principal); M75.101 Unspecified rotator cuff tear or rupture of right shoulder, not specified as traumatic; M12.811 Other specific arthropathies, not elsewhere classified, right shoulder; G89.29 Other chronic pain | CPT/HCPCS: 99202 ==

== ENCOUNTER → 2024-12-20 08:00 | Outpatient (REF) | payer OTHER, SELFPAY ==
--- NOTE | 2024-12-20 08:03 | CA_ITS ---
Acquisition Time: 2024-12-20 08:26:05 Total Exercise Time: 00:02:00 Test Indications: PREOP Medications: SEE H&P Protocol: LEXISCAN Max HR: 85 BPM 59% of Pred: 143 BPM Max BP: 132/70 mmHG Max Work Load: 1.0 METS Pharmacologic stress test with Lexiscan, while pt kicked his legs, with reports of abdominal discomfort, with frequent isolated PACs and PVCs and ventricular couplets, with normotensive response to injection. Nondiagnostic EKG for ischemia. In recovery, pt treated with IVP Aminophylline 75 mg to reverse Lexiscan, after which pt feeling back to baseline. Nuclear images pending. Test reviewed with Dr. Curran. Referred By: Sharon Guardado Electronically Signed By: Enio Batista
--- OUTSIDE RECORDS SUMMARY | 2024-12-20 08:06 | XMS_ITS | Patient Health Record ---
Author Organization [facility] Address [address] [place] [address] Care Team Providers Care Hot Knife Cutter Name Role Phone Daisha Crane MD Primary Care Provider Og Jacobs Jr Unavailable ALLERGIES Allergen (clinical drug ingredient) Drug/Non Drug Allergy documented on EMR Reaction Allergy Type Onset Date Status lisinopril Lisinopril Unknown Drug Allergy Activ e REASON FOR REFERRAL No Information MEDICATIONS Medication SIG (Take, Route, Frequency, Duration) Notes Start Date End Date Status MiraLax (colon prep) 8.3 oun ce ((238) grams mixed with Gatorade or Crystal Light orally begin at 5:00 p.m. the day before the procedure for 1 day 01/13/2021 Active Senna Active ProAir HFA 108 (90 Base) MCG/ACT 2 puffs as needed Inhalation every 4 hrs Active Narcan Active Vitamin D3 Active Folic Acid 1 MG 1 tablet Orally Once a day Active Albuterol Sulfate Ac tive Flovent HFA 220 MCG/ACT 1 puff Inhalatio n Twice a day Active Colace Active Multi Vitamin/Minerals Orally Active Atorvastatin Calcium Active Dulcolax (colon prep) 5 MG take at 3:00 p.m and 7:00p.m. Orally two tablets twice a day for one day for 1 day 01/13/2021 Active amLODIPine Besylate 2.5 MG 1 tablet Oral ly Once a day Active Xeljanz Active MiraLax (colon prep) 8.3 oun ce ((238) grams mixed with Gatorade or Crystal Light orally begin at 5:00 p.m. the day before the procedure for 1 day 01/13/2021 Active oxyCODONE HCl 5 MG 1 capsule as needed Orally every 6 hrs/prn Active sulfaSALAzine Active Omeprazole 20 MG 1 capsule Orally Onc e a day Active Incruse Ellipta Acti ve Hydroxychloroquine Sulfate Active Melatonin Active IMMUNIZATIONS Vaccine Route Administration Date Status Comme nts Influenza Unknown 09/18/2020 Administered SOCIAL HISTORY Tobacco Use: Social History Observation Description Date Details (start date - stop date) Current Smoker NA - NA Sex Assigned At : Social History Observation Description Sex Assigned At Unknown Tobacco Use/Smoking Question Answer Notes Patient is a current smoker How often do you smoke cigarettes? every day How many cigarettes a day do you smoke? 6-10 How soon after you wake up d o you smoke your first cigarette? 6-30 minutes Are you interested in quitting? Thinking about q uitting Alcohol Screen Question Answer Notes Did you have a drink containing alcohol in the p ast year? No Points 0 Interpretation Negative PROBLEMS Problem Type ICD Code Onset Dates Problem Status W/U Status Risk SNOMED Code Notes Problem Gastroesophageal reflux disease without esophagitis (K21.9) Active confirmed 581444090 Problem Colon cancer screening (Z12.11) Active confirmed 719650288 Problem Personal history of colonic polyps (Z86.010) Active confirmed 746006808 PLAN OF TREATMENT Future Test Test Name Order Date COLONOSCOPY 11/06/2015 COLONOSCOPY 01/13/2021 Insurance Providers Payer Name Payer Address Payer Phone Subscriber Number Group Number Insured Name Patient Relationship to Insured Coverage Start Date Coverage End Date [facility] [address] [place] [address] [id number] CORA KELLY Self - patient is the insured MEDICAL (GENERAL) HISTORY Medical History History ICD Code 12/15/2006 Colonoscopy 02/14/2010 Colonoscopy Colon Polyps/Tubular adenomas Hypertension Hyperlipidemia Asthma Low back pain Reflux rheumatoid arthritis Surgical History Surgery Date(Month/Year) back surgery prostatectomy for prostate cancer umbilical hernia repair
== END ==
LOC: HO.CARD 08:00
PROVIDERS: PCP Family Medicine; Visit Provider Nurse Practitioner Family
DX: Z01.818 Encounter for other preprocedural examination (principal); R07.89 Other chest pain; I77.810 Thoracic aortic ectasia; Q23.1 Congenital insufficiency of aortic valve
CPT/HCPCS: 78452; 93017; A9500; J0280; J2785

== ENCOUNTER → 2024-12-20 08:03 | Outpatient (BNV) | payer OTHER, SELFPAY | PROVIDERS: PCP Family Medicine | DX: I49.1 Atrial premature depolarization (principal); I49.3 Ventricular premature depolarization | CPT/HCPCS: 78452; 93016; 93018 ==

== ENCOUNTER 2025-01-02 08:33 | Outpatient (REF) | payer OTHER, SELFPAY ==
--- NOTE | ~2025-01-02 | CT_ITS ---
EXAMINATION: CT ANGIOGRAM CHEST CLINICAL INFORMATION: Thoracic aortic ectasia. COMPARISON: October 08, 2022 TECHNIQUE: Multiple axial images were obtained through the chest after the administration of 70 mL of Omnipaque 350 intravenous contrast. Extensive vascular post-processing including two-dimensional and three-dimensional reformatted images were created and reviewed on an independent workstation. This CT examination was performed using dose optimization techniques as appropriate, variously including the following: *Automated exposure control *Adjustment of mA and/or kV according to patient size (this includes techniques or standardized protocols for targeted exams where dose is matched to indication/reason for exam; i.e. extremities or head) *Use of iterative reconstruction technique. DLP: 151 mGy centimeter. FINDINGS: Limited by patient's motion artifact. Ascending thoracic aorta diameter: 4.6 cm. No intimal flap. No IV contrast extravasation. Thoracic aortic arch diameter: 2.3 cm. No intimal flap. No IV contrast extravasation. Descending thoracic aorta diameter: 2.9 cm. No IV contrast extravasation. No intimal flap. Mixed plaques extending from the thoracic aortic arch to the descending segment. Calcified plaques in the origin of the great branches. The vertebral arteries are orientating from the subclavian arteries. Ancillary findings: Pulmonary patchy groundglass in the periphery of the lower lung lobes likely atelectasis. No consolidation pleural effusion or pneumothorax. No bronchiectasis. No honeycombing. Respiratory where is patent. Calcified plaques in the coronary arteries. No gross pericardial effusion. Cystic lesions both kidneys. Tiny cholelithiasis. Multilevel cervical thoracic spondylosis. 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 Overall stable. Fleischner guidelines were followed. Electronically signed by: Bishnu Duran MD 01/02/2025 03:39 PM EST
--- OUTSIDE RECORDS SUMMARY | 2025-01-02 09:00 | XMS_ITS | Encounter Summary ---
Author Organization [employer] Address 75 [facility] 7t [place] [address] Care Team Providers Care Stacker Attendant Name Role Phone Daisha Crane MD Primary Care Provider +- [phone] Lisa Liao PharmD Unavailable Alissa Santillan MD Unavailable Sharon Guardado Unavailable Cedric Lujan MD Unavailable Reason for Visit * Reason Comments Med Refill Encounter Details Date Type Department Care Team (Late st Contact Info) Description 11/21/2024 Refill [facility]S [address] [place], [place] [phone] Cara Whitfield MD [address] [place], [place] [phone] Pain Social History Tobacco Use Types Packs/Day [...] Care Team (Late st Contact Info) Description 01/22/2025 9:00 AM EDT Medication Management [facility] MEDICINE [address] [place] [address] Lisa Liao PharmD [address] [place] [address] 02/26/2025 11:00 AM EDT Telemedicine [facility] PEDS 505 [place] [address] Loyda Banda, RN 505 [place] [address] 03/07/2025 10:15 AM EDT Office Visit [facility] [address] [place] [address] Daisha rCane MD [address] [place], [place] [phone] documented as of this encounter Goals Goal Patient Goal Type Associated Problems Recent Progress Patient-Stated? Author Blood Pressure < 140/90 Blood Pressure 110/50(2024 9:20 AM EST) No Lisa Anguiano PharmAj Hemoglobin A1c < 8 Result Component 6.9(11/04/202 4 10:06 AM EST) No Lisa Anguiano PharmD documented as of this encounter Visit Diagnoses Diagnosis Pain Generalized pain documented in this encounter Additional Health Concerns Assessment Noted Time PHQ-9 Depression Total Score: 0 04/06/20 24 9:11 AM EDT documented as of this encounter Care Teams Stacker Attendant Relationship Specialty Start Date End Date Daisha Crane MD [address] [place] [address] PCP - General Family Medicine 11/01/18 Lisa Liao, PharmD 230 [place] [address] Pharmacist Internal Medicine 04/06/23 Alissa Santillan MD [address] [place] [address] Rheumatology 11/09/24 Sharon Guardado [address] 3rd [place] [address] Cardiology 11/13/24 Cedric Lujan MD [address] [place] [address] Orthopaedic Surgery 11/23/24 documented as of this encounter
--- OUTSIDE RECORDS SUMMARY | 2025-01-02 09:00 | XMS_ITS | Encounter Summary ---
Author Organization [employer] Address 75 [facility] 7t [place] [address] Care Team Providers Care 3D Animator Name Role Phone Daisha Crane MD Primary Care Provider +1- [phone] Lisa Liao PharmD Unavailable +[phone] Alissa Santillan MD Unavailable Sharon Guardado Unavailable Cedric Lujan MD Unavailable Reason for Visit * Reason Onset Date Comments Durable Medical Equipment 08/21/2024 Encounter Details Date Type Department Care Team (Late st Contact Info) Description 08/21/2024 Telephone [facility] MEDICINE 230 [place], [place] [phone] Daisha Crane MD 230 [place], [place] [phone] Durable Medical Equipment Social History Tobacco Use [...] 9:48 AM EDT TC from pt and OIL DELIVERER called in states L&C got wrong script . Request was not for pullups , pt wasrequesting Nilo OIL DELIVERER [phone] documented in this encounter Plan of Treatment Upcoming Encounters Date Type Department Care Team (Late st Contact Info) Description 01/22/2025 9:00 AM EDT Medication Management [facility] MEDICINE 230 [place] [address] Lisa Liao, PharmD 230 [place] [address] 02/26/2025 11:00 AM EDT Telemedicine [facility] MED [facility] PEDS 505 [place] [address] Loyda Banda, RN 505 [place] [address] 03/07/2025 10:15 AM EDT Office Visit [facility] MED[facility]INE 230 [place] [address] Daisha Crane MD 230 [place] [address] documented as of this encounter Goals Goal [...] documented as of this encounter Care Teams 3D Animator Relationship Specialty Start Date End Date Daisha Crane MD [address] [place] [address] PCP - General Family Medicine 11/01/18 Lisa Liao, PharmD 230 [place] [address] Pharmacist Internal Medicine 04/06/23 Alissa Santillan MD [address] [place] [address] Rheumatology 11/09/24 Sharon Guardado [address] 3rd [place] [address] Cardiology 11/13/24 Cedric Lujan MD [address] [place] [address] Orthopaedic Surgery 11/23/24 documented as of this encounter
--- OUTSIDE RECORDS SUMMARY | 2025-01-02 09:00 | XMS_ITS | Encounter Summary ---
Author Organization [employer] [facility] Address 75 [facility] 7t [place] [address] Care Team Providers Care Sed Special Education Teacher Name Role Phone Daisha Crane MD Primary Care Provider +1- [phone] Lisa Liao PharmD Unavailable Alissa Santillan MD Unavailable Sharon Guardado Unavailable Cedric Lujan MD Unavailable Reason for Visit * Reason Onset Date Comments Med Refill 07/07/2023 Encounter Details Date Type Department Care Team (Late st Contact Info) Description 07/07/[address] [facility] MEDICINE 230 [place], [place] [phone] Daisha Crane MD 230 [place], [place] [phone] Med Refill Social History Tobacco Use Types [...] MG immediate release tablet Please sent to [facility] - [place], [place] - [address] [place] [address] documented in this encounter Plan of Treatment Upcoming Encounters Date Type Department Care Team (Late st Contact Info) Description 01/22/2025 9:00 AM EDT Medication Management [facility] MEDICINE [address] [place] [address] Lisa Liao, PharmD [address] [place] [address] 02/26/2025 11:00 AM EDT Telemedicine [facility] MED & PEDS 505 [place], [place] [phone] Loyda Banda RN 505 [place] [address] 03/07/2025 10:15 AM EDT Office Visit [facility] MEDICINE [address] [place] [address] Daisha Crane MD [address] [place] [address] documented as of this encounter Goals Goal [...] documented as of this encounter Care Teams Sed Special Education Teacher Relationship Specialty Start Date End Date Daisha Crane MD [address] [place] [address] PCP - General Family Medicine 11/01/18 Lisa Liao, GenevaD 230 [place] [address] Pharmacist Internal Medicine 04/06/23 Alissa Santillan MD [address] [place] [address] Rheumatology 11/09/24 Sharon Guardado [address] 3rd [place] [address] Cardiology 11/13/24 Cedric Lujan MD [address] [place] [address] Orthopaedic Surgery 11/23/24 documented as of this encounter
--- OUTSIDE RECORDS SUMMARY | 2025-01-02 09:00 | XMS_ITS | Encounter Summary ---
Author Organization [employer] [facility] Address 75 [facility] 7t [place] [address] Care Team Providers Care Outside Operator Name Role Phone Daisha Crane MD Primary Care Provider Lisa Liao PharmD Unavailable Alissa Santillan MD Unavailable Sharon Guardado Unavailable Cedric Lujan MD Unavailable Reason for Visit * Reason Comments Med Refill Encounter Details Date Type Department Care Team (Late st Contact Info) Description 07/21/2023 Refill [facility] MEDICINE 230 [place], [place] [phone] Daisha Crane MD 230 [place], [place] [phone] Pulmonary emphysema, unspecified emphysema type (CMS/HCC) (Primary [...] Description 01/22/2025 9:00 AM EDT Medication Management [facility] MEDICINE [address] [place] [address] Lisa Liao PharmD [address] [place] [address] 02/26/2025 11:00 AM EDT Telemedicine [facility] CHC MED & PEDS 505 [place] [address] Loyda Banda, SO 505 [place], [place] 03/07/2025 10:15 AM EDT Office Visit [facility] MEDICINE [address] [place] [address] Daisha Crane MD [address] [place] [address] documented as of this encounter Goals Goal [...] as of this encounter Care Teams Outside Operator Relationship Specialty Start Date End Date Daisha Crane MD [address] [place] [address] PCP - General Family Medicine 11/01/18 Lisa Liao PharmD [address] [place] [address] Pharmacist Internal Medicine 04/06/23 Alissa Santillan MD [address] [place] [address] Rheumatology 11/09/24 Sharon Guardado [address] 3rd Floor [place] [address] Cardiology 11/13/24 Cedric Lujan MD [address] [place] [address] Orthopaedic Surgery 11/23/24 documented as of this encounter
--- OUTSIDE RECORDS SUMMARY | 2025-01-02 09:00 | XMS_ITS | Encounter Summary ---
Author Organization [employer] Address 75 [facility] 7t [place] [address] Care Team Providers Care Steamboat Pilot Name Role Phone Daisha Crane MD Primary Care Provider +1- [phone] Lisa Liao PharmD Unavailable Alissa Santillan MD Unavailable Sharon Guardado Unavailable Cedric Lujan MD Unavailable Reason for Visit * Reason Onset Date Comments Med Refill 06/05/2024 Encounter Details Date Type Department Care Team (Late st Contact Info) Description 06/05/2024 Telephone [facility] MEDICINE 230 [place], [place] [phone] Daisha Crane MD 230 [place], [place] [phone] Med Refill Social History Tobacco Use Types [...] immediate release tablet To be sent to: [facility] - [place], [place] - [address] [place] [address] documented in this encounter Plan of Treatment Upcoming Encounters Date Type Department Care Team ([facility] st Contact Info) Description 01/22/2025 9:00 AM EDT Medication Management [facility] MEDICINE 230 [place] [address] Lisa Liao, PharmD 230 [place] [address] 02/26/2025 11:00 AM EDT Telemedicine [facility] CHC MED & PEDS 505 [place] [address] Loyda Banda, RN 505 [place] [address] 03/07/2025 10:15 AM EDT Office Visit [facility] MEDICINE 230 [place] [address] Daisha Crane MD 230 [place] [address] documented as of this encounter Goals Goal [...] documented as of this encounter Care Teams Steamboat Pilot Relationship Specialty Start Date End Date Daisha Crane MD 230 [place] [address] PCP - General Family Medicine 11/01/18 Lisa Liao, PharmD 230 [place] [address] Pharmacist Internal Medicine 04/06/23 Alissa Santillan MD [address] [place] [address] Rheumatology 11/09/24 Sharon Guardado [address] 3rd [place] [address] Cardiology 11/13/24 Cedric Lujan MD [address] [place] [address] Orthopaedic Surgery 11/23/24 documented as of this encounter
--- OUTSIDE RECORDS SUMMARY | 2025-01-02 09:01 | XMS_ITS | Encounter Summary ---
Author Organization [employer] [facility] Address 75 [facility] 7t [place] [address] Care Team Providers Care Police Lieutenant Patrol Name Role Phone Daisha Crane MD Primary Care Provider +1- [phone] Lisa Liao PharmD Unavailable Alissa Santillan MD Unavailable Sharon Guardado Unavailable Cedric Lujan MD Unavailable Encounter Details Date Type Department Care Team (Late st Contact Info) Description 06/01/2023 Abstract [facility] MEDICINE [address] [place] [address] [phone] Daisha Crane MD 230 [place], [place] [phone] Social History Tobacco Use Types Packs/Day Years [...] Medication Management [facility] MEDICINE [address] [place] [address] Lisa Liao, PharmD 230 [place] [address] 02/26/2025 11:00 AM EDT Telemedicine [facility] CHC MED & PEDS 505 [place] [address] Loyda Banda, RN 505 [place], [place] 03/07/2025 10:15 AM EDT Office Visit [facility] MEDICINE 230 [place] [address] Daisha Crane MD [address] [place] [address] documented as of this encounter Goals Goal Patient Goal Type Associated Problems Recent Progress Patient-Stated? Author Blood Pressure < 140/90 Blood Pressure 110/50( 025 9:20 AM EST) No Lisa Anguiano, PharmD documented as of this encounter Visit Diagnoses Not on filedocumented in this encounter Additional Health Concerns Assessment Noted Time PHQ-9 Depression Total Score: 0 11/23/19 10:39 AM EST documented as of this encounter Care Teams Police Lieutenant Patrol Relationship Specialty Start Date End Date Daisha Crane MD [address] [place] [address] PCP - General Family Medicine 11/01/18 Lisa Liao, PharmD [address] [place] [address] Pharmacist Internal Medicine 04/06/23 Alissa Santillan MD [address] [place] [address] Rheumatology 11/09/24 Sharon Guardado [address] 3rd [place] [address] Cardiology 11/13/24 Cedric Lujan MD [address] [place] [address] Orthopaedic Surgery 11/23/24 documented as of this encounter
--- OUTSIDE RECORDS SUMMARY | 2025-01-02 09:01 | XMS_ITS | Encounter Summary ---
Author Organization [employer] Address 75 [facility] 7t [place] [address] Care Team Providers Care Rubber Goods Supervisor Name Role Phone Daisha Crane MD Primary Care Provider +- [phone] Lisa Liao PharmD Unavailable Alissa Santillan MD Unavailable Sharon Guardado Unavailable Cedric Lujan MD Unavailable Reason for Visit * Reason Comments Med Refill Encounter Details Date Type Department Care Team (Late st Contact Info) Description 02/06/2024 Refill [facility] MEDICINE 230 [place], [place] [phone] Lisa Liao, PharmD 230 [place] [address] Social History Tobacco Use Types Packs/Day Years Used Date Smoking Tobacco: Every Day Cigarettes Passive Smoke Exposure: Current Smokeless Tobacco: Never Depression Answer Date Recorded Patient Health Questionnaire-9 Score 0 11/23/2022 Housing Stability Answer Date Recorded What is your housing situation today? I have filippodipika sharma 08/17/[address] you [...] Description 01/22/2025 9:00 AM EDT Medication Management [facility] MEDICINE [address] [place] [address] Lisa Liao PharmD [address] [place] [address] 02/26/2025 11:00 AM EDT Telemedicine [facility] CH[facility] MED & PEDS 505 [place] [address] Loyda Banda, SO 505 [place] [address] 03/07/2025 10:15 AM EDT Office Visit [facility] MEDICINE [address] [place] [address] Daisha Crane MD [address] [place] [address] documented as of this encounter Goals Goal [...] documented as of this encounter Care Teams Rubber Goods Supervisor Relationship Specialty Start Date End Date Daisha Crane MD [address] [place] [address] PCP - General Family Medicine 11/01/18 Lisa Liao PharmD [address] [place] [address] Pharmacist Internal Medicine 04/06/23 Alissa Santillan MD [address] [place] [address] Rheumatology 11/09/24 Sharon Guardado [address] 3rd [place] [address] Cardiology 11/13/24 Cedric Lujan MD [address] [place] [address] Orthopaedic Surgery 11/23/24 documented as of this encounter
--- OUTSIDE RECORDS SUMMARY | 2025-01-02 09:01 | XMS_ITS | Encounter Summary ---
Author Organization [employer] Address 75 [facility] 7t [place] [address] Care Team Providers Care Textiles Printer Name Role Phone Daisha Crane MD Primary Care Provider +1- [phone] Lisa Liao PharmD Unavailable +1- [phone] Alissa Santillan MD Unavailable Sharon Guardado Unavailable Cedric Lujan MD Unavailable Reason for Visit * Reason Comments controlled substance treatment Encounter Details Date Type Department Care Team (Latest Contact Info) Description 12/15/2024 9:30 AM EST Clinical Support [facility] MEDICINE 230 [place] [address] Loyda Banda, SO 505 [place], [place] [phone] Chronic right shoulder pain Social History Tobacco Use Types Packs/Day Years [...] AM EDT documented as of this encounter Progress Notes * Loyda Banda RN - 12/15/2024 9:30 AM EST S: SOA ENGINEER [place]. Prescribed Oxycodone 5mg PO q8h PRN. States has been taking as prescribed. Pt denies ETOH/street drug/marijuana use. States smokes a pack of cigarettes/ 3 days. States not interested in quitting right now. Currently rates pain a 9/10 and states medication is usually 50% effective at alleviating pain. States took medication this morning. Current pain sites are L back, R shoulder. Pt reports also using Tylenol arthritis PRN for pain. .Chronic pain group pamphlet given, patient not interested at this time., might be in the future. No questions/ concerns at this time. O: PRESS CLEANER verified today. Rx last filled 11/22/24. Pill count performed. Patient has 8 pills at this time, 0 expected. Medication is not overused by patient. Last PCP visit was 09/04/24. .BPI updated today. Pain severity score of (7), activity interference score of (5). Previous BPI completed (06/21/24) with pain severity score of (6.5), activity interference score of (3.5). Utox performed, positive for OXY only, as expected. 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 P: Patient to continue taking medication only as prescribed; Next SOA ENGINEER RV appointment scheduled for 02/26/25 @ 11am. Appt reminder given. F/U sooner PRN. Patient verbalized understanding and agreed to plan. documented in this encounter Plan of Treatment Upcoming Encounters Date Type Department Care Team (Late st Contact Info) Description 01/22/2025 9:00 AM EDT Medication Management [facility] MEDICINE [address] [place] [address] Lisa Liao, PharmD 230 [place] [address] 02/26/2025 11:00 AM EDT Telemedicine [facility] CHC MED & PEDS 505 [place], [place] [phone] Loyda Banda RN [address] [place], [place] [phone] 03/07/2025 10:15 AM EDT Office Visit [facility] MEDICINE 230 [place] [address] Daisha Crane MD [address] [place], [place] [phone] documented as of this encounter Goals Goal Patient Goal Type Associated Problems Recent Progress Patient-Stated? Author Blood Pressure < 140/90 Blood Pressure 110/50(2024 9:20 AM EST) No Lisa Anguiano, PharmD Hemoglobin A1c < 8 Result Component 6.9( 10:06 AM EST) No DaveysLisa Diaz, PharmD documented as of this encounter Procedures Procedure Name Priority Date/Time Associated Diagnosis Comments POCT SAUNDRA-14 URINE DRUG SCREEN Routine 12/15/2024 10:01 AM EST Chronic right shoulder pain documented in this encounter Results * POCT SAUNDRA-14 Urine Drug Screen (12/15/2024 10:01 AM EST) Oxycodone Screen, Urine Positive Urine Urine specimen obtained by clean catch procedure / Unknown 12/15/2024 10:01 AM EST Loyda Perez, RN - 12/15/2024 10:01 AM EST .UTOX cup Lot#[id number] Exp. 06/20/26 Internal Pass Control Daisha Crane MD POINT OF CARE TEST ENTER/E DIT ORDERABLES Final Result documented in this encounter Visit Diagnoses Diagnosis Chronic right shoulder pain Pain in joint, shoulder region documented in this encounter Additional Health Concerns Assessment Noted Time PHQ-9 Depression Total Score: 0 04/06/20 24 9:11 AM EDT documented as of this encounter Care Teams Textiles Printer Relationship Specialty Start Date End Date Daisha Crane MD [address] [place] [address] PCP - General Family Medicine 11/01/18 Lisa Liao, PharmD [address] [place] [address] Pharmacist Internal Medicine 04/06/23 Alissa Santillan MD [address] [place] [address] Rheumatology 11/09/24 Sharon Guardado [address] 3rd [place] [address] Cardiology 11/13/24 Cedric Lujan MD [address] [place] [address] Orthopaedic Surgery 11/23/24 documented as of this encounter
--- OUTSIDE RECORDS SUMMARY | 2025-01-02 09:01 | XMS_ITS | Encounter Summary ---
Author Organization [employer] [facility] Address 75 [facility] 7t [place] [address] Care Team Providers Care Last Puller Name Role Phone Daisha Crane MD Primary Care Provider +1- [phone] Lisa Liao PharmD Unavailable [phone] Alissa Santillan MD Unavailable Sharon Guardado Unavailable Cedric Lujan MD Unavailable Encounter Details Date Type Department Care Team (Late st Contact Info) Description 10/22/2022 Orders Only [facility] 230 [place], [place] [phone] Radha Johnson LPN Social History Tobacco Use [...] Description 01/22/2025 9:00 AM EDT Medication Management [facility] MEDICINE 230 [place], [place] [phone] Lisa Liao, PharmD 230 [place], [place] [phone] 02/26/2025 11:00 AM EDT Telemedicine [facility] MED & PEDS 505 [place] [address] Loyda Banda, RN 505 [place] [address] 03/07/2025 10:15 AM EDT Office Visit [facility] MEDICINE 230 [place] [address] Daisha Crane MD [address] [place] [address] documented as of this encounter Visit Diagnoses Not on filedocumented in this encounter Care Teams Last Puller Relationship Specialty Start Date End Date Daisha Crane MD 230 [place] [address] PCP - General Family Medicine 11/01/18 Lisa Liao, PharmD [address] [place] [address] Pharmacist Internal Medicine 04/06/23 Alissa Santillan MD [address] [place] [address] Rheumatology 11/09/24 Sharon Guardado [address] 3rd [place] [address] Cardiology 11/13/24 Cedric Lujan MD [address] [place] [address] Orthopaedic Surgery 11/23/24 documented as of this encounter
--- OUTSIDE RECORDS SUMMARY | 2025-01-02 09:01 | XMS_ITS | Encounter Summary ---
Author Organization [employer] Address 75 [facility] 7t [place] [address] Care Team Providers Care Manager Functional Name Role Phone Daisha Crane MD Primary Care Provider + [phone] Lisa Liao PharmD Unavailable [phone] Alissa Santillan MD Unavailable Sharon Guardado Unavailable Cedric Lujan MD Unavailable Reason for Visit * Reason Comments Med Refill Encounter Details Date Type Department Care Team (Late st Contact Info) Description 09/03/2023 Refill [facility] MEDICINE 230 [place], [place] [phone] Key Gregory MD 230 [place], [place] [phone] Tinea versicolor Social History Tobacco Use Types [...] Description 01/22/2025 9:00 AM EDT Medication Management [facility] MEDICINE [address] [place] [address] Lisa Liao PharmD [address] [place] [address] 02/26/2025 11:00 AM EDT Telemedicine [facility] MED & PEDS 505 [place] [address] Loyda Banda, SO 505 [place] [address] 03/07/2025 10:15 AM EDT Office Visit [facility] MEDICINE [address] [place] [address] Daisha Crane MD 230 [place] [address] documented as of this encounter Goals Goal [...] documented as of this encounter Care Teams Manager Functional Relationship Specialty Start Date End Date Daisha Crane MD 230 [place] [address] PCP - General Family Medicine 11/01/18 Lisa Liao, GenevaD 230 [place] [address] Pharmacist Internal Medicine 04/06/23 Alissa Santillan MD [address] [place] [address] Rheumatology 11/09/24 Sharon Guardado [address] 3rd [place] [address] Cardiology 11/13/24 Cedric Lujan MD [address] [place] [address] Orthopaedic Surgery 11/23/24 documented as of this encounter
--- OUTSIDE RECORDS SUMMARY | 2025-01-02 09:01 | XMS_ITS | Encounter Summary ---
Author Organization [facility] Address [address] [facility] 7t [place] [address] Care Team Providers Care Cartographic Drafter Name Role Phone Daisha Crane MD Primary Care Provider + [phone] Lisa Liao PharmD Unavailable Alissa Santillan MD Unavailable Sharon Guardado Unavailable Cedric Lujan MD Unavailable Encounter Details Date Type Department Care Team (Latest Contact Info) Description 03/10/2019 Abstract [facility] CONVERSIONS Dental, Provider, DDS Social History [...] Description 01/22/2025 9:00 AM EDT Medication Management [facility] MEDICINE 230 [place], [place] [phone] Lisa Liao, PharmD 230 [place], [place] [phone] 02/26/2025 11:00 AM EDT Telemedicine [facility] MED [facility] PEDS 505 [place], [place] [phone] Loyda Banda, RN 505 [place] [address] 03/07/2025 10:15 AM EDT Office Visit [facility] MED[facility]INE [address] [place] [address] Daisha Crane MD [address] [place] [address] documented as of this encounter Visit Diagnoses Not on filedocumented in this encounter Care Teams Cartographic Drafter Relationship Specialty Start Date End Date Daisha Crane MD [address] [place] [address] PCP - General Family Medicine 11/01/18 Lisa Liao, PharmD [address] [place] [address] Pharmacist Internal Medicine 04/06/23 Alissa Santillan MD [address] [place] [address] Rheumatology 11/09/24 Sharon Guardado [address] 3rd [place] [address] Cardiology 11/13/24 Cedric Lujan MD [address] [place] [address] Orthopaedic Surgery 11/23/24 documented as of this encounter
--- OUTSIDE RECORDS SUMMARY | 2025-01-02 09:01 | XMS_ITS | Patient Health Record ---
Author Organization [facility] Address [address] [place] [address] Care Team Providers Care Conflict Resolution Professional Name Role Phone Daisha Crane MD Primary Care Provider Og Jacobs Jr Unavailable [phone] ALLERGIES Allergen (clinical drug ingredient) Drug/Non Drug Allergy documented on EMR Reaction Allergy Type Onset Date Status Lisinopril Unknown Drug Allergy Active REASON FOR REFERRAL No Information MEDICATIONS Medication [...] W/U Status Risk SNOMED Code Notes Problem Colon cancer screening (Z12.11) Active confirmed 072996640 Problem Personal history of colonic polyps (Z86.010) Active confirmed 536628551 Problem Gastroesophageal reflux disease without esophagitis (K21.9) Active confirmed 989797045 PLAN OF TREATMENT Future Test Test Name Order Date COLONOSCOPY 11/06/2015 COLONOSCOPY 01/13/2021 Insurance Providers Payer Name Payer Address Payer Phone Subscriber Number Group Number Insured Name Patient Relationship to Insured Coverage Start Date Coverage End Date [facility] [address] [place] [address] [id number] CORA KELLY Self - patient is the insured MEDICAL (GENERAL) HISTORY Medical History History ICD Code 12/15/2006 Colonoscopy 02/14/2010 Colonoscopy Colon Polyps/Tubular adenomas Hypertension Hyperlipidemia Asthma Low back pain Reflux rheumatoid arthritis Surgical History Surgery Date(Month/Year) back surgery prostatectomy for prostate cancer umbilical hernia repair
--- OUTSIDE RECORDS SUMMARY | 2025-01-02 09:01 | XMS_ITS | Encounter Summary ---
Author Organization [employer] Address [address] [facility] 7t [place] [address] Care Team Providers Care Senior Accounting Clerk Name Role Phone Daisha Crane MD Primary Care Provider +1- [phone] Lisa Liao PharmD Unavailable Alissa Santillan MD Unavailable Sharon Guardado Unavailable Cedric Lujan MD Unavailable Reason for Visit * Reason Onset Date Comments Durable Medical Equipment 08/08/2024 Encounter Details Date Type Department Care Team (Late st Contact Info) Description 08/08/2024 Telephone [facility] MEDICINE 230 [place], [place] [phone] Daisha Crane MD 230 [place], [place] [phone] Durable Medical Equipment Social History Tobacco Use [...] Description 01/22/2025 9:00 AM EDT Medication Management [facility] MEDICINE 230 [place] [address] Lisa Liao, PharmD 230 [place] [address] 02/26/2025 11:00 AM EDT Telemedicine [facility] MED & PEDS 505 [place] [address] Loyda Banda, RN 505 [place] [address] 03/07/2025 10:15 AM EDT Office Visit [facility] MEDICINE 230 [place] [address] Daisha Crane MD 230 [place] [address] documented as of this encounter Goals Goal [...] documented as of this encounter Care Teams Senior Accounting Clerk Relationship Specialty Start Date End Date Daisha Crane MD 230 [place] [address] PCP - General Family Medicine 11/01/18 Lisa Liao, PharmD 230 [place] [address] Pharmacist Internal Medicine 04/06/23 Alissa Santillan MD [address] [place] [address] Rheumatology 11/09/24 Sharon Guardado [address] 3rd [place] [address] Cardiology 11/13/24 Cedric Lujan MD [address] [place] [address] Orthopaedic Surgery 11/23/24 documented as of this encounter
--- OUTSIDE RECORDS SUMMARY | 2025-01-02 09:01 | XMS_ITS | Encounter Summary ---
Author Organization [employer] Address 75 [facility] 7t [place] [address] Care Team Providers Care Webfocus Developer Name Role Phone Daisha Crane MD Primary Care Provider +1- [phone] Lisa Liao PharmD Unavailable [phone] Alissa Santillan MD Unavailable Sharon Guardado Unavailable Cedric Lujan MD Unavailable Reason for Visit * Reason Onset Date Comments May Recalls 12/15/2024 Encounter Details Date Type Department Care Team (Late st Contact Info) Description 12/15/2024 Telephone [facility] MEDICINE 230 [place], [place] [phone] Daisha Crane MD 230 [place], [place] [phone] May Recalls Social History Tobacco Use Types Packs/Day Years [...] encounter Miscellaneous Notes * Telephone Encounter - Zoraida Orantes [place] - 12/15/2024 2:54 PM EST ..T/C- Bender Machine and Patient made a Follow Up appointment with Viv Martinez for March. Appointment reminder sent via mail. documented in this encounter Plan of Treatment Upcoming Encounters Date Type Department Care Team (Late st Contact Info) Description 01/22/2025 9:00 AM EDT Medication Management [facility] MEDICINE 230 [place] [address] Lisa Liao, PharmD 230 [place] [address] 02/26/2025 11:00 AM EDT Telemedicine [facility] MED & PEDS 505 [place] [address] Loyda Banda, RN 505 [place] [address] 03/07/2025 10:15 AM EDT Office Visit [facility] MEDICINE 230 [place] [address] Daisha Crane MD 230 [place] [address] documented as of this encounter Goals Goal [...] documented as of this encounter Care Teams Webfocus Developer Relationship Specialty Start Date End Date Daisha Crane MD 230 [place] [address] PCP - General Family Medicine 11/01/18 Lisa Liao, PharmD 230 [place] [address] Pharmacist Internal Medicine 04/06/23 Alissa Santillan MD [address] [place] [address] Rheumatology 11/09/24 Sharon Guardado [address] 3rd [place] [address] Cardiology 11/13/24 Cedric Lujan MD [address] [place] [address] Orthopaedic Surgery 11/23/24 documented as of this encounter
--- OUTSIDE RECORDS SUMMARY | 2025-01-02 09:01 | XMS_ITS | Encounter Summary ---
Author Organization [employer] Address 75 [facility] 7t [place] [address] Care Team Providers Care Dishing Machine Operator Name Role Phone Daisha Crane MD Primary Care Provider + [phone] Lisa Liao PharmD Unavailable +1- [phone] Alissa Santillan MD Unavailable Sharon Guardado Unavailable Cedric Lujan MD Unavailable Reason for Visit * Reason Comments Med Refill Encounter Details Date Type Department Care Team (Late st Contact Info) Description 02/07/2024 Refill [facility] 230 [place], [place] [phone] Tanika Arenas ANP 230 [place], [place] [phone] Dyslipidemia Social History Tobacco Use Types Packs/Day [...] Description 01/22/2025 9:00 AM EDT Medication Management [facility] [address] [place] [address] Lisa Liao PharmD [address] [place] [address] 02/26/2025 11:00 AM EDT Telemedicine [facility] MED [facility] PEDS 505 [place] [address] Loyda Banda, RN 505 [place] [address] 03/07/2025 10:15 AM EDT Office Visit [facility] [address] [place] [address] Daisha Crane MD 230 [place] [address] documented as of this encounter Goals Goal Patient Goal Type Associated Problems Recent Progress Patient-Stated? Author Blood Pressure < 140/90 Blood Pressure 110/50(2024 9:20 AM EST) No Lisa Anguiano, PharmAj Hemoglobin A1c < 8 Result Component 6.9( 10:06 AM EST) No Lisa Anguiano PharmD documented as of this encounter Visit Diagnoses Diagnosis Dyslipidemia Other and unspecified hyperlipidemia documented in this encounter Additional Health Concerns Assessment Noted Time PHQ-9 Depression Total Score: 0 11/23/19 23 10:39 AM EST documented as of this encounter Care Teams Dishing Machine Operator Relationship Specialty Start Date End Date Daisha Crane MD 230 [place] [address] PCP - General Family Medicine 11/01/18 Lisa Liao, GenevaD 230 [place] [address] Pharmacist Internal Medicine 04/06/23 Alissa Santillan MD [address] [place] [address] Rheumatology 11/09/24 Sharon Guardado [address] 3rd [place] [address] Cardiology 11/13/24 Cedric Lujan MD [address] [place] [address] Orthopaedic Surgery 11/23/24 documented as of this encounter
--- OUTSIDE RECORDS SUMMARY | 2025-01-02 09:01 | XMS_ITS | Encounter Summary ---
Author Organization [facility] Address [address] [facility] 7t [place] [address] Care Team Providers Care Transit Authority Police Officer Name Role Phone Daisha Crane MD Primary Care Provider +1- [phone] Lisa Liao PharmD Unavailable Alissa Santillan MD Unavailable Sharon Guardado Unavailable Cedric Lujan MD Unavailable Encounter Details Date Type Department Care Team (Late st Contact Info) Description 12/08/2022 Abstract [facility] MEDICINE 230 [place], [place] [phone] Daisha Crane MD 230 [place], [place] [phone] Social History Tobacco Use Types Packs/Day Years [...] Description 01/22/2025 9:00 AM EDT Medication Management [facility] MEDICINE [address] [place] [address] Lisa Liao, PharmAj 230 [place] [address] 02/26/2025 11:00 AM EDT Telemedicine [facility] CHC MED & PEDS 505 [place], [place] [phone] Loyda Banda, SO 505 [place] [address] 03/07/2025 10:15 AM EDT Office Visit [facility] MEDICINE [address] [place] [address] Daisha Crane MD [address] [place] [address] documented as of this encounter Procedures Procedure [...] documented as of this encounter Care Teams Transit Authority Police Officer Relationship Specialty Start Date End Date Daisha Crane MD [address] [place] [address] PCP - General Family Medicine 11/01/18 Lisa Liao, PharmD [address] [place] [address] Pharmacist Internal Medicine 04/06/23 Alissa Santillan MD [address] [place] [address] Rheumatology 11/09/24 Sharon Guardado [address] 3rd Floor [place] [address] Cardiology 11/13/24 Cedric Lujan MD [address] [place] [address] Orthopaedic Surgery 11/23/24 documented as of this encounter
--- OUTSIDE RECORDS SUMMARY | 2025-01-02 09:01 | XMS_ITS | Encounter Summary ---
Author Organization [employer] [facility] Address 75 [facility] 7t [place] [address] Care Team Providers Care Care Advocate Name Role Phone Daisha Crane MD Primary Care Provider +1- [phone] Lisa Liao PharmD Unavailable Alissa Santillan MD Unavailable Sharon Guardado Unavailable Cedric Lujan MD Unavailable Reason for Visit * Reason Onset Date Comments Med Refill 06/07/2023 Encounter Details Date Type Department Care Team (Late st Contact Info) Description 06/07/2023 Telephone [facility] MEDICINE 230 [place], [place] [phone] Hiram Palma MD 230 [place], [place] [phone] Med Refill Social History Tobacco Use Types [...] MG immediate release tablet Please sent to [facility] - [place], [place] - [address] [place] [address] documented in this encounter Plan of Treatment Upcoming Encounters Date Type Department Care Team (Late st Contact Info) Description 01/22/2025 9:00 AM EDT Medication Management [facility] MEDICINE [address] [place] [address] Lisa Liao PharmD [address] [place] [address] 02/26/2025 11:00 AM EDT Telemedicine [facility] MED & PEDS 505 [place] [address] Loyda Banda RN 505 [place] [address] 03/07/2025 10:15 AM EDT Office Visit [facility] MEDICINE [address] [place] [address] Daisha Crane MD [address] [place] [address] documented as of this encounter Goals Goal [...] documented as of this encounter Care Teams Care Advocate Relationship Specialty Start Date End Date Daisha Crane MD [address] [place] [address] PCP - General Family Medicine 11/01/18 Lisa Liao, PharmD 230 [place] [address] Pharmacist Internal Medicine 04/06/23 Alissa Santillan MD [address] [place] [address] Rheumatology 11/09/24 Sharon Guardado [address] 3rd [place] [address] Cardiology 11/13/24 Cedric Lujan MD [address] [place] [address] Orthopaedic Surgery 11/23/24 documented as of this encounter
--- OUTSIDE RECORDS SUMMARY | 2025-01-02 09:01 | XMS_ITS | Encounter Summary ---
Author Organization [employer] [facility] Address 75 [facility] 7t [place] [address] Care Team Providers Care Jewelry Sales Representative Name Role Phone Daisha Crane MD Primary Care Provider +1- [phone] Lisa Liao PharmD Unavailable Alissa Santillan MD Unavailable Sharon Guardado Unavailable Cedric Lujan MD Unavailable Encounter Details Date Type Department Care Team (Late st Contact Info) Description 10/14/2022 Orders Only [facility] 230 [place], [place] [phone] Daisha Crane MD 230 [place], [place] [phone] Social History Tobacco Use Types Packs/Day Years [...] Description 01/22/2025 9:00 AM EDT Medication Management [facility] MEDICINE 230 [place] [address] Lisa Liao, PharmD 230 [place] [address] 02/26/2025 11:00 AM EDT Telemedicine [facility] CHC MED & PEDS 505 [place] [address] Loyda Banda, SO 505 [place] [address] 03/07/2025 10:15 AM EDT Office Visit [facility] MEDICINE 230 [place] [address] Daisha Crane MD 230 [place] [address] documented as of this encounter Visit Diagnoses Not on filedocumented in this encounter Care Teams Jewelry Sales Representative Relationship Specialty Start Date End Date Daisha Crane MD [address] [place] [address] PCP - General Family Medicine 11/01/18 Lisa Liao, PharmD [address] [place] [address] Pharmacist Internal Medicine 04/06/23 Alissa Santillan MD [address] [place] [address] Rheumatology 11/09/24 Sharon Guardado [address] 3rd [place] [address] Cardiology 11/13/24 Cedric Lujan MD [address] [place] [address] Orthopaedic Surgery 11/23/24 documented as of this encounter
--- OUTSIDE RECORDS SUMMARY | 2025-01-02 09:01 | XMS_ITS | Encounter Summary ---
Author Organization [employer] [facility] Address [address] [facility] 7t [place] [address] Care Team Providers Care Bread Packer Name Role Phone Daisha Crane MD Primary Care Provider +- [phone] Lisa Liao PharmD Unavailable +1- [phone] Alissa Santillan MD Unavailable Sharon Guardado Unavailable Cedric Lujan MD Unavailable Encounter Details Date Type Department Care Team (Late Contact Info) Description 12/16/2022 Orders Only [facility] CHC MED & PEDS 505 [place], [place] [phone] Jenn Polk LPN Social History Tobacco Use [...] Department Care Team (Late Contact Info) Description 01/22/2025 9:00 AM EDT Medication Management [facility] MEDICINE 230 [place] [address] Lisa Liao, GenevaD 230 [place] [address] 02/26/2025 11:00 AM EDT Telemedicine [facility] CHC MED & PEDS 505 [place] [address] Loyda Banda, SO 505 [place] [address] 03/07/2025 10:15 AM EDT Office Visit [facility] MEDICINE 230 [place] [address] Daisha Crane MD 230 [place] [address] documented as of this encounter Visit Diagnoses Not on filedocumented in this encounter Additional Health Concerns Assessment Noted Time PHQ-9 Depression Total Score: 0 11/23/19 10:39 AM EST documented as of this encounter Care Teams Bread Packer Relationship Specialty Start Date End Date Daisha Crane MD 230 [place] [address] PCP - General Family Medicine 11/01/18 Lisa Liao, PharmD [address] [place] [address] Pharmacist Internal Medicine 04/06/23 Alissa Santillan MD [address] [place] [address] Rheumatology 11/09/24 Sharon Guardado [address] 3rd [place] [address] Cardiology 11/13/24 Cedric Lujan MD [address] [place] [address] Orthopaedic Surgery 11/23/24 documented as of this encounter
--- OUTSIDE RECORDS SUMMARY | 2025-01-02 09:01 | XMS_ITS | Encounter Summary ---
Author Organization [employer] Address [address] [facility] 7t [place] [address] Care Team Providers Care Boiler Testing Technician Name Role Phone Daisha Crane MD Primary Care Provider +1- [phone] Lisa Liao PharmD Unavailable Alissa Santillan MD Unavailable Sharon Guardado Unavailable Cedric Lujan MD Unavailable Reason for Visit * Reason Onset Date Comments Med Refill 07/04/2024 Encounter Details Date Type Department Care Team (Late st Contact Info) Description 07/04/2024 Telephone [facility] MEDICINE 230 [place], [place] [phone] Daisha Crane MD 230 [place], [place] [phone] Med Refill Social History Tobacco Use Types [...] immediate release tablet To be sent to: [facility] - [place], [place] - [address] [place] [address] documented in this encounter Plan of Treatment Upcoming Encounters Date Type Department Care Team ([facility] st Contact Info) Description 01/22/2025 9:00 AM EDT Medication Management [facility] MEDICINE 230 [place] [address] Lisa Liao, PharmD 230 [place] [address] 02/26/2025 11:00 AM EDT Telemedicine [facility] MED & PEDS 505 [place] [address] Loyda Banda, RN 505 [place] [address] 03/07/2025 10:15 AM EDT Office Visit [facility] MEDICINE 230 [place] [address] Daisha Crane MD 230 [place] [address] documented as of this encounter Goals Goal [...] documented as of this encounter Care Teams Boiler Testing Technician Relationship Specialty Start Date End Date Daisha Crane MD 230 [place] [address] PCP - General Family Medicine 11/01/18 Lisa Liao, PharmD 230 [place] [address] Pharmacist Internal Medicine 04/06/23 Alissa Santillan MD [address] [place] [address] Rheumatology 11/09/24 Sharon Guardado [address] 3rd [place] [address] Cardiology 11/13/24 Cedric Lujan MD [address] [place] [address] Orthopaedic Surgery 11/23/24 documented as of this encounter
--- OUTSIDE RECORDS SUMMARY | 2025-01-02 09:01 | XMS_ITS | Encounter Summary ---
Author Organization [employer] [facility] Address [address] [facility] 7t [place] [address] Care Team Providers Care Installation Superintendent Name Role Phone Daisha Crane MD Primary Care Provider +1- [phone] Lisa Liao PharmD Unavailable Alissa Santillan MD Unavailable Sharon Guardado Unavailable Cedric Lujan MD Unavailable Encounter Details Date Type Department Care Team (Late st Contact Info) Description 11/19/[address] [facility] MEDICINE 230 [place], [place] [phone] Radha Johnson LPN Social History Tobacco Use [...] Description 01/22/2025 9:00 AM EDT Medication Management [facility] MEDICINE 230 [place], [place] [phone] Lisa Liao, PharmD 230 [place], [place] [phone] 02/26/2025 11:00 AM EDT Telemedicine [facility] MED [facility] PEDS 505 [place] [address] Loyda Banda, RN 505 [place] [address] 03/07/2025 10:15 AM EDT Office Visit [facility] MEDICINE 230 [place] [address] Daisha Crane MD 230 [place] [address] documented as of this encounter Visit Diagnoses Not on filedocumented in this encounter Care Teams Installation Superintendent Relationship Specialty Start Date End Date Daisha Crane MD [address] [place] [address] PCP - General Family Medicine 11/01/18 Lisa Liao, PharmD [address] [place] [address] Pharmacist Internal Medicine 04/06/23 Alissa Santillan MD [address] [place] [address] Rheumatology 11/09/24 Sharon Guardado [address] 3rd [place] [address] Cardiology 11/13/24 Cedric Lujan MD [address] [place] [address] Orthopaedic Surgery 11/23/24 documented as of this encounter
--- OUTSIDE RECORDS SUMMARY | 2025-01-02 09:01 | XMS_ITS | Encounter Summary ---
Author Organization [employer] Address [address] [address] [facility] [address] [place] [address] Care Team Providers Care Sap Administrator Name Role Phone Daisha Crane MD Primary Care Provider +- [phone] Lisa Liao PharmD Unavailable +1- [phone] Alissa Santillan MD Unavailable Sharon Guardado Unavailable Cedric Lujan MD Unavailable Reason for Visit * Reason Onset Date Comments Referral 12/04/2024 Encounter Details Date Type Department Care Team (Late st Contact Info) Description 12/04/[address] [facility] MEDICINE [address] [place], [place] [phone] Daisha Crane MD [address] [place], [place] [phone] Referral Social History Tobacco Use Types Packs/Day Years [...] Telephone Encounter - Marjorie Vieyra RN - 12/04/2024 10:57 AM EST Telephone call placed to [facility] regarding below message. They stated below information is false, Dr Santillan out of office. Dr Velarde is covering this pt's scripts. Just sent him prednisone. He never asked for refill on actemra from their office. They will send refill request to Dr Velarde now. * Telephone Encounter - Sarah Sanders - 12/04/2024 10:43 AM EST Pt daughter walked in requesting a script for actemra due to office systems technology instructor prescribing this injection but office systems technology instructor retired so pt is requesting this script due to pt in pain. documented in this encounter Plan of Treatment Upcoming Encounters Date Type Department Care Team (Late st Contact Info) Description 01/22/2025 9:00 AM EDT Medication Management [facility] MEDICINE [address] [place] [address] Lisa Liao, PharmD [address] [place] [address] 02/26/2025 11:00 AM EDT Telemedicine [facility] MED & PEDS [address] [place] [address] Loyda Banda, SO [address] [place], [place] 03/07/2025 10:15 AM EDT Office Visit [facility] MEDICINE [address] [place] [address] Daisha Crane MD [address] [place] [address] documented as of this encounter Goals Goal [...] documented as of this encounter Care Teams Sap Administrator Relationship Specialty Start Date End Date Daisha Crane MD [address] [place] [phone] PCP - General Family Medicine 11/01/18 Lisa Liao, PharmD [address] [place] [phone] Pharmacist Internal Medicine 04/06/23 Alissa Santillan MD [address] [place] [address] Rheumatology 11/09/24 Sharon Guardado [address] [place] [address] Cardiology 11/13/24 Cedric Lujan MD [address] [place] [address] Orthopaedic Surgery 11/23/24 documented as of this encounter
--- OUTSIDE RECORDS SUMMARY | 2025-01-02 09:01 | XMS_ITS | Encounter Summary ---
Author Organization [facility] Address [address] [facility] [address] [place] [address] Care Team Providers Care Rawhide Trimmer Name Role Phone Daisha Crane MD Primary Care Provider [phone]- [phone] Lisa Liao PharmD Unavailable Alissa Santillan MD Unavailable Sharon Guardado Unavailable Cedric Lujan MD Unavailable Encounter Details Date Type Department Care Team (Late st Contact Info) Description 10/28/2022 Telephone [facility] MEDICINE [address] [place] [address] [phone] Daisha Crane MD [address] [place] [phone] Social History Tobacco Use Types Packs/Day Years [...] 9:00 AM EDT Medication Management [facility] MEDICINE [address] [place] [phone] Lisa Liao, PharmD [address] [place], [place] [phone] 02/26/2025 11:00 AM EDT Telemedicine [facility] MED & PEDS [address] [place] [address] Loyda Banda, SO [address] [place] [address] 03/07/2025 10:15 AM EDT Office Visit [facility] MEDICINE [address] [place] [address] Daisha Crane MD [address] [place] [address] documented as of this encounter Visit Diagnoses Not on filedocumented in this encounter Care Teams Rawhide Trimmer Relationship Specialty Start Date End Date Daisha Crane MD [address] [place] [address] PCP - General Family Medicine 11/01/18 Lisa Liao, PharmD [address] [place] [phone] Pharmacist Internal Medicine 04/06/23 Alissa Santillan MD [address] [place] [address] Rheumatology 11/09/24 Sharon Guardado [address] [place] [address] Cardiology 11/13/24 Cedric Lujan MD [address] [place] [address] Orthopaedic Surgery 11/23/24 documented as of this encounter
--- OUTSIDE RECORDS SUMMARY | 2025-01-02 09:01 | XMS_ITS | Clinical Summary ---
Author Organization [employer] [facility] Address [address] [place] [address] Care Team Providers Care Television Producer Name Role Phone Daisha Crane MD Primary Care Provider [phone] Lisa Liao PharmD Unavailable [phone] Alissa Santillan MD Unavailable Sharon Guardado Unavailable [...] 2 diabetes mellitus without complication, unspecified whether long filler cigar roller machine insulin use ([facility]) TEST BLOOD SUGAR TWICE DAILY 50 strip [...] obstructive pulmonary disease, unspecified COPD type ([facility]) INHALE 1 PUFF BY MOUTH EVERY DAY [...] SAME TIME 30 each 5 025 Active docusate sodium (Colace) 100 MG capsuleIndicati ons:Constipatio n, unspecified constipation type TAKE 1 CAPSULE BY MOUTH TWICE DAILY IN THE MORNING AND IN THE EVENING 180 capsule 1 025 Active senna (Senokot) 8.6 MG tabletIndicatio ns:Constipation , unspecified constipation type TAKE 2 TABLETS BY MOUTH EVERY DAY IN THE EVENING NEEDED FOR CONSTIPATION 180 tablet 1 025 Active oxyCODONE (Roxicodone) 5 MG immediate release tabletIndicatio ns:Pain Take 1 tablet (5 mg) by mouth every 8 (eight) hours if needed for severe pain. 56 tablet 025 Active oxyCODONE (Roxicodone) 5 MG immediate release tabletIndicatio ns:Pain Take 1 tablet (5 mg) by mouth every 8 (eight) hours if needed for severe pain. 56 tablet 025 2024 Discontinued(R eorder (will not trigger notification to Pharmacy)) Active Problems Patient Care Coordination No te Formatting of this note migh t be different from the original. Enrolled in [facility] DM and HTN clinic with Lisa Liao, GenevaD, [facility] [employer] Sales Engineer: Denise, member services number [phone] [employer] Agency: [facility] Problem Noted Date Diagnosed Date Transaminitis 09/04/2024 Overview (09/04/2024): -ordered labs 09/04/24 Assessment & Plan (09/04/2024 5:00 PM EST): -ordered labs 09/04/24 [facility] (current) use of opiate analgesic 08/03 Neuropathic [...] with visit. He would like referral to [facility] , new referral placed 09/04/24 Assessment & Plan (09/04/2024 4:56 PM EST): -referral placed to Podiatry 04/06/[address] Daniels, he was not happy with with visit. He would like referral to [facility] , new referral placed 09/04/24 Assessment & Plan (04/06/2024 9:55 AM EDT): -referral placed to Podiatry 04/06/2024 Other specified health status 06/03/2023 Overview (09/04/2024): -next physical exam due after 09/04/2025 -eye care facilitated by [facility] and [facility] -dental home is [facility] [place]. -healthcare Proxy completed and filed 04/06/2024. Assessment & Plan (09/04/2024 5:02 PM EST): -next physical exam due after 09/04/2025 -eye care facilitated by [facility] and [facility] -dental home is [facility] [place]. -healthcare Proxy completed and filed 04/06/2024. Assessment & Plan (04/06/2024 9:51 AM EDT): -next physical exam due after 06/04/2024. -eye care facilitated by [facility]. -dental home is [facility] [place]. -healthcare Proxy completed and filed 04/06/2024. Assessment & Plan (06/04/2023 9:45 AM EDT): -next physical exam due after 06/04/2024. -eye care facilitated by [facility]. -dental home is [facility] [place]. Ascending aorta dilation 04/06/2023 Overview (12/01/2024): Followed by Sharon Guardado MONONITROTOLUENE OPERATOR-C for [facility]. Seen 05/30/24 -Hx of dilated ascending aorta. Echo done 08/28/22 shows moderate dilation of ascending aorta at 4.6 cm. He then had a CTA of chest showing sinus of valsalva dilated at 4.7 cm and ascending aorta dilated at 4.2 cm. Repeat echocardiogram done 08/25/2023 shows EF 60-65%, dilated ascending aorta 4.6 cm. Overall no change in 2023. -US 11/30/24 US/US abdominal aortic aneurysm IMPRESSION: No evidence of an abdominal aortic aneurysm. Assessment & Plan (09/04/2024 4:56 PM EST): Followed by Sharon Guardado MONONITROTOLUENE OPERATOR-C for [facility]. Seen 05/30/24 -Hx of dilated [...] Overview (11/13/2024): -Followed by Sharon LEWIS for [facility]. -Known hx of Bicuspid aortic valve without stenosis or regurgitation. Followed by echocardiograms. Last echo 08/25/2023 shows mild calcification of the aortic valve, no regurgitation or stenosis. Repeat echo ordered 2023. -Sharon AREVALOC for [facility] 11/2024 Prior notes indicate a [...] Overview (05/31/2024): Followed by Sharon LEWIS for [facility] 05/30/24. History of leg edema [...] September 2024. GERD (gastroesophageal reflux disease) 3 [facility] systemic steroid user 04/06/2023 Osteoporosis 04/06/2023 Overview [...] as pharmacomtherapy, [facility] smoking cessation group, and [facility] pharmacy smoking cessation clinic Discussed USPSTF recommends [...] as pharmacomtherapy, [facility] smoking cessation group, and [facility] pharmacy smoking cessation clinic Discussed USPSTF recommends [...] Encouraged smoking cessation resources such as pharmacomtherapy, [facility] smoking cessation group, and [facility] pharmacy smoking cessation clinic Discussed USPSTF recommends [...] rheumatoid factor 11/20/2022 Overview (11/09/2024): Seen by edge setter Dr. Minnie Santillan 05/23/24 -On Actemra 162 [...] Plan (09/04/2024 5:00 PM EST): Seen by edge setter Dr. Minnie Santillan 05/23/24 -On Actemra 162 [...] Plan (04/06/2024 9:51 AM EDT): Followed by edge setter. Per note 11/18/23:On Actemra 162 mg every [...] the right ECU swelling does not improve Body Liner would like to restart hydroxychloroquine, will refer patient to Ophthalmology for a baseline hydroxychloroquine screening. If patient is cleared. Will start hydroxychloroquine Continue Rasuvo 25 mg weekly + Actemra every other week. Chest CTA 10/2022 showed no evidence of ILD T-spot and Hepatitis panel -ve 11/2023,. Labs before next visit in 3 months via rheumatology Seen by edge setter Dr. Minnie Santillan 02/23/24 -On Actemra 162 [...] Plan (06/04/2023 9:39 AM EDT): -Followed by edge setter Dr. Fisher. -Currently on prednisone 2 mg daily -med rec to make sure we have correct meds on file -Continue Oxycodone 5mg BID as needed for pain -Did not tolerate Methotrexate, then Leflunomide 20mg daily but then d/c due to rash Assessment & Plan (11/20/2022 10:23 AM EST): -Followed by edge setter Dr. Fisher. -Currently on prednisone 2 mg daily -med rec to make sure we have correct meds on file -Continue Oxycodone 5mg BID as needed for pain -Did not tolerate Methotrexate, then Leflunomide 20mg daily but then d/c due to rash Heart murmur 10/13/2022 Overview (12/24/2024): Seen by cardiology on 09/04/2021 c/w aortic stenosis on exam, echo, stress test ordered. Will request results. -LEXICAN on 10/13/2021. Nuclear image pending -Echo on 09/15/2021 had EF of 60-65%. Suspect bicuspid aortic valve with fusion of the left and non-coronary cusps. No significant stenosis or regurgitation. Mild aortic annular dilatation measuring 4cm and ascending aorta 4.3cm Pocket And Pulley Machine Operator Nanette Leonard seen in April 2022. Followed by Sharon Guardado NP-C for [facility] 05/30/24. History of leg edema [...] follow-up as planned for September 2024. -Sharon Guardado NP-C for [facility] 11/2024 Thoracic aortic ectasia Category: [...] Z01.818 - Encounter for other preprocedural examination NM/NM cardiolite stress test 12/20/24 Impression: 1. Myocardial perfusion imaging study shows normal myocardial perfusion. 2. Gated LVEF is 68% during stress and 63% during rest. 3. Transient ischemic dilatation not present. EKG component of the test reported separately. US abdominal aortic aneurysm Today I77.810 - [...] dilatation measuring 4cm and ascending aorta 4.3cm Pocket And Pulley Machine Operator Nanette Leonard seen in April 2022. Followed by Sharon LEWIS for [facility] 05/30/24. History of leg edema [...] dilatation measuring 4cm and ascending aorta 4.3cm Pocket And Pulley Machine Operator Nanette Leonard seen in April [...] dilatation measuring 4cm and ascending aorta 4.3cm Pocket And Pulley Machine Operator Nanette Leonard seen in April [...] dilatation measuring 4cm and ascending aorta 4.3cm Pocket And Pulley Machine Operator Nanette Leonard seen in April [...] -Vascepa 2 grams twice daily started by CDTM 05/22/24 Assessment & Plan (09/04/2024 5:03 PM EST): Lab Results Component Value Date CHOL 115 02/16/2024 CHOL 155 06/17/2023 CHOL 177 11/16/2022 TRIG 205 (H) 02/16/2024 TRIG 166 06/17/2023 TRIG 168 11/16/2022 HDL 41 02/16/2024 HDL 55 06/17/2023 HDL 69 11/16/2022 LDLCHOLCAL 33 02/16/2024 LDLCHOLCAL 67 06/17/2023 LDLCHOLCAL 75 11/16/2022 -continue lifestyle modification -Vascepa 2 grams twice daily started by CDTM 05/22/24 Assessment & Plan (04/06/2024 9:52 AM [...] agreeable with plan to be transported to [facility] via ambulance . Case discussed with provider at [facility] ER Cutaneous skin tags 05/18/2023 03/30/20 Assessment & Plan (05/18/2023 10:39 AM EDT): [...] aminotransferase level 08/09/2015 04/06/2024 Alcohol dependence 05/05/2012 Failure to thrive (child) 05/05/2012 Encounters Date Type Department Care Team Description 12/20/2024 Orders Only [facility] External Provider, [facility] Heart murmur (Primary Dx) 12/15/2024 9:30 AM EST Clinical Support [facility] [address] [place] [address] Loyda Banda RN Chronic right shoulder pain 12/15/2024 Telephone [facility] [address] [place] [address] Daisha Crane MD May Recalls 12/15/2024 Refill [facility] [address] [place] [address] Loyda Banda RN Pain 12/15/2024 Travel 12/04/2024 Telephone [facility] [address] [place] [address] Daisha Crane MD Referral 11/26/2024 Refill [facility] [address] [place] [address] Cara Whitfield MD Constipation, unspecified constipation type 11/26/2024 Refill [facility] [address] [place] [address] Daisha Crane MD Constipation, unspecified constipation type 11/21/2024 Refill [facility] [address] [place] [address] Daisha Crane MD Simple chronic bronchitis ([facility]/HCC) 11/21/2024 Refill [facility] [address] [place] [address] Cara Whitfield MD Pain 11/21/2024 Refill [facility] [address] [place] [address] Daisha Crane MD Pain 11/13/2024 Travel 11/03/2024 Orders Only GENERIC EXTERNAL DATA DEPARTMENT Provider, Generic External Data Ascending aorta dilation (CMS/HCC) (Primary Dx) 10/30/2024 Telephone [facility] [address], [place] [phone] Daisha Crane MD 10/27/2024 Refill [facility] [address] [place] [address] Tanika Arenas ANP Dyslipidemia 10/26/2024 Refill [facility] [address], [place] [phone] Daisha Crane MD Pain 10/25/2024 Refill [facility] [address], [place] [phone] Daisha Crane MD Vitamin D deficiency 10/09/2024 Orders Only [facility] [address], [place] [phone] Daisha Crane MD from Last 3 Months Immunizations Name Administration [...] housing situation today? I have filippodipika sharma 04/06/[address] you [...] 9:00 AM EDT Medication Management [facility] [address] [place] [id number] Lisa Liao, PharmD [address] [place] [address] 02/26/2025 11:00 AM EDT Telemedicine [facility] [address] [place] [address] Loyda Banda, SO [address] [place] [address] 03/07/2025 10:15 AM EDT Office Visit [facility] [address] [place] [phone] Daisha Crane MD [address] [place] [address] Health Maintenance Due Date Last Done Comments Diabetes: Hemoglobin A1C 12/05/202409/04/2 024, 04/06/2024, 02/08/2024, Additional history exists Depression [...] 10:06 AM EST) No Lisa Anguiano PharmD Procedures Procedure Name Priority Date/Time Associated Diagnosis Comments STRESS TEST WITH MYOCARDIAL PERFUSION Routine 12/20/2024 8:16 AM EST POCT SAUNDRA-14 URINE DRUG SCREEN Routine 12/15/2024 10:01 AM EST Chronic right shoulder pain US ABDOMINAL AORTIC ANEURYSM Routine 12/01/2024 8:37 AM EST SED RATE BY MODIFIED WESTERGREN [...] 2 diabetes mellitus without complication, unspecified whether fci insulin use (CMS/HCC) POCT GLYCATED HEMOGLOBIN, TOTAL Routine 09/04/2024 10:06 AM EST Type 2 diabetes mellitus without complication, unspecified whether fci insulin use (CMS/HCC) HEPATITIS PANEL, GENERAL Routine 11/11/2023 10:39 AM EST HM COLONOSCOPY Routine 12/21/2020 from Last 3 Months or Most Recently Relevant to Health Maintenance Results * Stress test with myocardial perfusion (12/20/2024 8:16 AM EST) 12/20/2024 8:16 AM EST Narrative [facility] IMAGING - 12/24/2024 2:57 PM EST ? [facility] ?[address] ?[place] [address] ?Nuclear Medicine Report ? Signed ? Patient: Patrice Jenkins ?MR#: [id number] ?? [id number] ? : 1945 ?Acct:[id number] ? Age/Sex: 79 / M ?ADM Date: 12/20/24 ? Loc: HO.CARD ? Attending Dr: Sharon LEWIS ? Ordering Physician: Sharon Guardado ?? Date of Service: 12/20/24 ?? Procedure(s): NM cardiolite stress test ?? Accession Number(s): [id number] ? cc: Daisha Crane MD; Sharon Guardado ? Lexiscan Myocardial perfusion study ? Indication: ?? Preoperative cardiovascular evaluation ? Technique: ? The patient was brought in for a Lexiscan perfusion study on 12/20/2024 ?? and was injected 0.4 mg of Lexiscan intravenously. Within a minute of ?? this injection 25 mCi of sestamibi was given intravenously. Images were ?? obtained using the SPECT gamma camera interlaced with the gating ?? device. Images were obtained in supine position. ? Resting perfusion study was performed on 12/21/2024. Patient was ?? administered 25 mCi of sestamibi intravenously at rest. Images were ?? then obtained in supine position. Total DLP 87 mGy-cm. ? Images were processed with the software and compared side to side in ?? short axis, horizontal long axis and vertical long axis views. ? Findings: ? Raw aquisition reviewed. Arms by the patient's side. ? The stress perfusion study showed ??no significant perfusion ?? abnormality. Both uncorrected as well as CT attenuation corrected ?? images were reviewed. The gated study shows normal LV systolic function ?? with calculated LVEF of 68%. LV cavity is normal in size. The gated ?? study shows normal ??wall thickening and contraction of segments. ? Resting study shows no significant perfusion abnormality. Gating at ?? rest reveals normal wall motion with ejection fraction at 63%. ? The findings are consistent with no clear reversible or fixed perfusion ?? abnormality. ? NM/NM cardiolite stress test ?? Impression: ? 1. ??Myocardial perfusion imaging study shows normal myocardial ?? perfusion. ?? 2. ??Gated LVEF is 68% during stress and 63% during rest. ?? 3. Transient ischemic dilatation not present. ? EKG component of the test reported separately. ? Electronically signed by: ??Volodymyr Curran MD ??12/24/2024 02:54 ?? PM EST ? Dictated By: ?Volodymyr Curran MD ? Signed By: ?<Electronically signed by Volodymyr Curran MD in OV> ?12/24/24 1454 ? DD/ 0816 ? TD/TT: 12/21/24 1215 ? Weight Guesser: ? Procedure Note Radha, Image - 12/24/[address] [address] Nuclear Medicine Report Signed Patient: Patrice JenkinsMR#: [id number] : 7Acct:[id number] Age/Sex: 79 / MADM Date: 12/20/24 Loc: [facility] Attending Dr: Sharon Guardado MONONITROTOLUENE OPERATOR-C Ordering Physician: Sharon Guardado Date of Service: 12/20/24 Procedure(s): NM cardiolite stress test Accession Number(s): [id number] cc: Daisha Crane MD; Sharon Guardado Lexiscan Myocardial perfusion study Indication: Preoperative cardiovascular evaluation Technique: The patient was brought in for a Lexiscan perfusion study on 12/20/2024 and was injected 0.4 mg of Lexiscan intravenously. Within a minute of this injection 25 mCi of sestamibi was given intravenously. Images were obtained using the SPECT gamma camera interlaced with the gating device. Images were obtained in supine position. Resting perfusion study was performed on 12/21/2024. Patient was administered 25 mCi of sestamibi intravenously at rest. Images were then obtained in supine position. Total DLP 87 mGy-cm. Images were processed with the software and compared side to side in short axis, horizontal long axis and vertical long axis views. Findings: Raw aquisition reviewed. Arms by the patient's side. The stress perfusion study showed no significant perfusion abnormality. Both uncorrected as well as CT attenuation corrected images were reviewed. The gated study shows normal LV systolic function with calculated LVEF of 68%. LV cavity is normal in size. The gated study shows normal wall thickening and contraction of segments. Resting study shows no significant perfusion abnormality. Gating at rest reveals normal wall motion with ejection fraction at 63%. The findings are consistent with no clear reversible or fixed perfusion abnormality. NM/NM cardiolite stress test Impression: 1. Myocardial perfusion imaging study shows normal myocardial perfusion. 2. Gated LVEF is 68% during stress and 63% during rest. 3. Transient ischemic dilatation not present. EKG component of the test reported separately. Electronically signed by: Volodymyr Curran MD 12/24/2024 02:54 PM EST Dictated By: Volodymyr Curran MD Signed By: <Electronically signed by Volodymyr Curran MD inOV> 12/24/24 1454 DD/ 0816 TD/TT: 12/21/24 1215 Weight Guesser: [facility] External Provider CV STRE SS PROCEDURES Final Result [facility] IMAGING [address] [place] [address] * POCT SAUNDRA-14 Urine Drug Screen (12/15/2024 10:01 AM EST) Oxycodone Screen, Urine Positive Urine Urine specimen obtained by clean catch procedure / Unknown 12/15/2024 10:01 AM EST Narrative Loyda Banda RN - 12/15/2024 10:01 AM EST .UTOX cup Lot#[id number] Exp. 06/20/26 Internal Pass Control Daisha Crane MD POINT OF CARE TEST ENTER/E DIT ORDERABLES Final Result * US ABDOMINAL AORTIC ANEURYSM (12/01/2024 8:37 AM EST) Anatomical Region Laterality Modality Abdomen Ultrasound 12/01/2024 8:37 AM EST Narrative 12/01/2024 9:07 AM EST ? [facility] ?[address] ?[place] [address] ? Ultrasound Report ? Signed ? Patient: Patrice Jenkins ?MR#: [id number] ?? [id number] ? : 1945 ?Acct:[id number] ? Age/Sex: 79 / M ?ADM Date: 12/01/24 ? Loc: HO.US ? Attending Dr: Sharon LEWIS ? Ordering Physician: Sharon Guardado ?? Date of Service: 12/01/24 ?? Procedure(s): US abdominal aortic aneurysm ?? Accession Number(s): [id number] ? cc: Daisha Crane MD; Sharon Guardado ? EXAMINATION: ??US ABDOMEN ANEURYSM SCREENING ? HISTORY: ??I77.810 - Thoracic aortic ectasia ? TECHNIQUE: Ultrasound of the abdominal aorta was performed with color ?? flow and spectral imaging. ? COMPARISON: Correlation is made with a CT of the abdomen without ?? contrast dated 04/01/2023. ? FINDINGS: ? Real-time grayscale ultrasound imaging was performed and reviewed. ? Proximal abdominal aorta measures 2.1 x 2.0 cm ?? Mid abdominal aorta measures 2.0 x 2.4 cm ?? Distal abdominal aorta measures 1.7 x 1.7cm. ?? Left proximal iliac artery measures 0.9 x 1.1 cm. ?? Right proximal iliac artery measures 1.2 x 1.2cm. ? US/US abdominal aortic aneurysm ?? IMPRESSION: ?? No evidence of an abdominal aortic aneurysm. ? Electronically signed by: ??Connor Higuera MD ??12/01/2024 09:04 AM EST ?? RP ? Dictated By: ?Connor Higuera MD ? Signed By: ?<Electronically signed by Connor Higuera MD in OV> ?12/01/24 0904 ? DD/ 0837 ? TD/TT: 12/01/24 0842 ? Weight Guesser: ? 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 COMPARISON: Correlation is made with a CT of the abdomen without contrast dated 04/01/2023. FINDINGS: Real-time grayscale ultrasound imaging was performed and reviewed. Proximal abdominal aorta measures 2.1 x 2.0 cm Mid abdominal aorta measures 2.0 x 2.4 cm Distal abdominal aorta measures 1.7 x 1.7cm. Left proximal iliac artery measures 0.9 x 1.1 cm. Right proximal iliac artery measures 1.2 x 1.2cm. US/US abdominal aortic aneurysm IMPRESSION: No evidence of an abdominal aortic aneurysm. Electronically signed by: Connor Higuera MD 12/01/2024 09:04 AM EST Dictated By: Connor Higuera MD Signed By: <Electronically signed by Connor Higuera MD in OV> 12/01/24 0904 DD/ TD/TT: 12/01/2442 Weight Guesser: us [facility] External Provider IMG US PROCEDURES Final Result * (ABNORMAL) CBC auto differential (11/03/2024 8:55 AM EST) White Blood Count 9.4 4.8 - 10.8 X10*3/uL [facility] Red Blood Count 4.09(L) 4.60 - 5.80 X10*6/uL [facility] Hemoglobin 10.7(L) 14.0 - 18.0 g/dl [facility] Hematocrit 34.8(L) 42.0 - 52.0 % [facility] Mean Corpuscular Volume 85.1 80.0 - 98.0 fL [facility] Mean Corpuscular Hemoglobin 26.2(L) 27.0 - 33.0 pg [facility] Mean Corpuscular HGB Conc 30.7(L) 31.0 - 36.0 g/dl [facility] Red Cell Distribution Width 19.5(H) 11.0 - 16.0 % [facility] Platelet Count 188 160 - 400 X10*3/uL [facility] Mean Platelet Volume 9.7 9.4 - 12.4 fL [facility] Neutrophils Percent Auto 50.3 45 - 73 % [facility] Imm Gran Pct Auto 0.3 0.0 - 0.4 % [facility] Lymphocytes Percent Auto 37.2 20 - 40 % [facility] Monocytes Percent Auto 9.0 2 - 11 % [facility] Eosinophils Percent Auto 2.7 0 - 4 % [facility] Basophils Percent Auto 0.5 0 - 2 % [facility] NRBC Pct Auto 0.0 0.0 - 0.2 /100WBC [facility] Neutrophils Absolute Auto 4.7 2.0 - 8.3 x10*3/uL [facility] Imm Gran Abs Auto 0.03 0.00 - 0.03 X10*3/uL [facility] Lymphocytes Absolute Auto 3.5 1.2 - 4.9 X10*3/uL [facility] Monocytes Absolute Auto 0.9 0.1 - 1.2 X10*3/uL [facility] Eosinophils Absolute Auto 0.3 0.0 - 0.4 X10*3/uL [facility] Basophils Absolute Auto 0.1 0.0 - 0.2 X10*3/uL [facility] NRBC Abs Auto 0.000 0.0 - 0.012 X10*3/uL [facility] [facility] 11/03/2024 8:55 AM EST 11/03/2024 8:55 AM EST us Generic External Data Provider LAB BLOOD ORDERAB LES Final Result Performing Organization Address [facility]/ZIP Co de Phone Number [facility] [address] [place] [phone] * Sed Rate by Modified Medardoren (11/03/2024 8:55 AM EST) Pathologist [facility] Erythrocyte Sedimentation Rate 2 0 - 15 MM/HR [facility] Comment:Patients with polycy themia and many hemoglobin abnormalitiesmay have depressed sed rates whereas patients with anemiamay have elevated sed rates. 11/03/2024 8:55 AM EST 11/03/2024 8:55 AM EST us Generic External Data Provider LAB BLOOD ORDERAB LES Final Result Performing Organization Address [facility] Co de Phone Number [facility] [address] [place] [phone] * TSH with Reflex to Free T4 (10/09/2024 8:05 AM EST) TSH reflex Free T4 2.09 0.32 - 4.0 uIU/mL [facility] Blood 10/09/2024 8:05 AM EST 10/09/2024 11:50 AM EST Daisha Crane MD LAB BLOOD ORDERABLES Final Result Performing Organization Address [facility] de Phone Number [facility] [address] [place] [address] [phone] * Iron And Total Iron Binding Capacity (10/09/2024 8:05 AM EST) Pathologist [facility] Iron 48 45 - 160 mcg/dL [facility] Total Iron Binding Capacity 331 228 - 428 mcg/dL [facility] Percent Iron Saturation 15 15 - 50 % [facility] Unsaturated Iron Binding 283 ug/dL [facility] Blood Venous blood specimen / Unknown 10/09/2024 8:05 AM EST 10/09/2024 11:50 AM EST Daisha Crane MD LAB BLOOD ORDERABLES Final Result Performing Organization Address [facility] de Phone Number [facility] [address] [place] [phone] * (ABNORMAL) Ferritin (10/09/2024 8:05 AM EST) Pathologist [facility] Ferritin 18(L) 20 - 250 ng/mL [facility] Blood Venous blood specimen / Unknown 10/09/2024 8:05 AM EST 10/09/2024 11:50 AM EST Daisha Crane MD LAB BLOOD ORDERABLES Final Result Performing Organization Address [facility] de Phone Number [facility] [address] [place] [address] [phone] * (ABNORMAL) Hepatic Function Panel (10/09/2024 8:05 AM EST) Bilirubin, Total 0.9 0.0 - 1.0 mg/dL [facility] Bilirubin, Direct 0.3 0.0 - 0.5 mg/dL [facility] Aspartate Amino Transferase 33 5 - 37 U/L [facility] Alanine Aminotransferase 33 0 - 40 U/L [facility] Total Protein 6.3(L) 6.5 - 8.0 g/dL [facility] Albumin Level 4.2 3.5 - 5.0 g/dL [facility] Alkaline Phosphatase 48 39 - 117 U/L [facility] Blood Venous blood specimen / Unknown 10/09/2024 8:05 AM EST 10/09/2024 11:50 AM EST us Daisha Crane MD LAB BLOOD ORDERABLES Final Result [facility] [address] [place] [address] [phone] * (ABNORMAL) Lipid Panel, Standard (10/09/2024 8:05 AM EST) Pathologist [facility] Triglycerides 122 <150 mg/dL [facility] Comment:Desirable Triglyceri de: less than 150 mg/dLBorderline High Triglyceride 150-199 mg/dLHigh Triglyceride: 200-499 mg/dLVery High Triglyceride: greater than or equal to 5OO mg/dL Cholesterol 104 <200 mg/dL [facility] Comment:Desirable Cholestero l: less than 200 mg/dLBorderline High Cholesterol: 200-239 mg/dLHigh Cholesterol: greater than 239 mg/dL LDL Cholesterol Calculated 43 <100 mg/dL [facility] Comment:Desirable LDL: less than 100 mg/dLNear Optimal/Above Optimal LDL: 110- 129 mg/dLBorderline High LDL: 130-159 mg/dLHigh LDL: 160-189 mg/dLVery High LDL: greater than or equal to 190 mg/dL HDL Cholesterol 37(L) >40 mg/dL [facility] Comment:Desirable HDL: great er than 40 mg/dL Note: This HDL assay may give artificially low results in patients with liver disease. Blood Venous blood specimen / Unknown 10/09/2024 8:05 AM EST 10/09/2024 11:50 AM EST Daisha Crane MD LAB BLOOD ORDERABLES Final Result Performing Organization Address [facility] Co de Phone Number [facility] [address] [place] [phone] * Basic Metabolic Panel (10/09/2024 8:05 AM EST) Sodium 140 135 - 145 mmol/L [facility] Potassium 3.7 3.3 - 5.1 mmol/L [facility] Chloride 103 96 - 108 mmol/L [facility] Carbon Dioxide 27 22 - 29 mmol/L [facility] Anion Gap 14 12 - 20 [facility] Urea Nitrogen (BUN) 10 9 - 16 mg/dL [facility] Creatinine, Serum 0.75 0.5 - 1.4 mg/dL [facility] Estimated Glomerular Filt Rate >60 [facility] Comment:Chronic Kidney Disea se: Estimated GFR < 60 mL/min/1.13g4Vpwmrs Kidney Disease: Estimated GFR < 15 mL/min/1.73m2 Glucose 80 60 - 115 mg/dL [facility] Calcium 10.1 8.4 - 10.2 mg/dL [facility] 10/09/2024 8:05 AM EST 10/09/2024 11:24 AM EST Daisha Crane MD LAB BLOOD ORDERABLES Final Result Performing Organization Address [facility]/ZIP Co de Phone Number [facility] [address] [place] [phone] * Albumin, Random Urine W/Creatinine (09/15/2024 8:03 AM EST) Creatinine, Urine 107.16 mg/dL [facility] Microalbumin Urine 20.0 mg/L [facility] Microalbum Creatinine Ratio Ur 18.6 <30 ug/mg cr [facility] Comment:Albumin/Creatinine R atio Reference Ranges: Normal: < 30 ug/mg creatinine Microalbuminuria: 30 - 300 ug/mg creatinineClinical Albuminuria: > 300 ug/mg creatinine Urine 09/15/2024 8:03 AM EST 09/15/2024 11:09 AM EST Daisha Crane MD LAB URINE ORDERABLES Final Result Performing Organization Address [facility] de Phone Number [facility] [address] [place] [address] [phone] * (ABNORMAL) POCT HGB A1C (09/04/2024 10:06 AM EST) Hemoglobin A1C 6.9(A) 4.0 - 6.0 % QC Media Lot # [id number] Lot# Expiration Date Blood 09/04/2024 10:0 6 AM EST Daisha Crane MD POINT OF CARE TEST ENTER/E DIT ORDERABLES Final Result * Hepatitis Panel, General (11/11/2023 10:39 AM EST) Hepatitis A IgM Nonreactive Nonreactive [facility] Comment:IgM antibodies to WAGONER V not detected; does not exclude earlyacute or recovered HAV infection. ~Hepatitis B Surface Antibody NONREACTIVE Nonreactive [facility] Comment:Nonreactive: < 8.00 mIU/mL Hepatitis B Core Antibody Nonreactive Nonreactive [facility] Hepatitis C Antibody Nonreactive Nonreactive [facility] Comment:Antibodies to HCV no t detected; does not exclude early acuteHCV infection. Hepatitis B Surface Ag Negative Negative [facility] 11/11/2023 10:3 9 AM EST 11/11/2023 10:39 AM EST Generic External Data Provider LAB BLOOD ORDERAB LES Final Result Performing Organization Address City/[facility]/ZIP Co de Phone Number [facility] [address] [place] [phone] * Colonoscopy (12/21/2020) Colonoscopy tubular adenoma with Dr. 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
--- OUTSIDE RECORDS SUMMARY | 2025-01-02 09:01 | XMS_ITS | Encounter Summary ---
Author Organization [employer] Address [address] [facility] 7t [place] [address] Care Team Providers Care Electrical Prospecting Engineer Name Role Phone Daisha Crane MD Primary Care Provider +1- [phone] Lisa Liao PharmD Unavailable [phone] Alissa Santillan MD Unavailable Sharon Guardado Unavailable Cedric Lujan MD Unavailable Encounter Details Date Type Department Care Team (Late st Contact Info) Description 10/30/2024 Telephone [facility] [address] [place], [place] [phone] Daisha Crane MD [address] [place], [place] [phone] Social History Tobacco Use Types Packs/Day Years [...] Description 01/22/2025 9:00 AM EDT Medication Management [facility] [address] [place] [phone] Lisa Liao PharmD [address] [place] [phone] 02/26/2025 11:00 AM EDT Telemedicine [facility] [address] [place] [address] Loyda Banda, RN [address] [place] [address] 03/07/2025 10:15 AM EDT Office Visit [facility] [address] [place] [address] Daisha Crane MD [address] [place] [address] documented as of this encounter Goals Goal Patient Goal Type Associated Problems Recent Progress Patient-Stated? Author Blood Pressure < 140/90 Blood Pressure 110/50(2024 9:20 AM EST) No Lisa Anguiano, PharmAj Hemoglobin A1c < 8 Result Component 6.9(11/04/202 4 10:06 AM EST) Lisa Cadet PharmD documented as of this encounter Visit Diagnoses Not on filedocumented in this encounter Additional Health Concerns Assessment Noted Time PHQ-9 Depression Total Score: 0 04/06/20 24 9:11 AM EDT documented as of this encounter Care Teams Electrical Prospecting Engineer Relationship Specialty Start Date End Date Daisha Crane MD [address] [place] [address] PCP - General Family Medicine 11/01/18 Lisa Liao, PharmD [address] [place] [address] Pharmacist Internal Medicine 04/06/23 Alissa Santillan MD [address] [place] [address] Rheumatology 11/09/24 Sharon Guardado [address] [place] [address] Cardiology 11/13/24 Cedric Lujan MD [address] [place] [address] Orthopaedic Surgery 11/23/24 documented as of this encounter
--- OUTSIDE RECORDS SUMMARY | 2025-01-02 09:02 | XMS_ITS | Encounter Summary ---
Author Organization [employer] Address [address] [facility] 7t [place] [address] Care Team Providers Care Electorate Officer Name Role Phone Daisha Crane MD Primary Care Provider +- [phone] Lisa Liao PharmD Unavailable Alissa Santillan MD Unavailable Sharon Guardado Unavailable Cedric Lujan MD Unavailable Reason for Visit * Reason Onset Date Comments Med Refill 11/24/2023 Encounter Details Date Type Department Care Team (Late st Contact Info) Description 11/24/2023 Telephone [facility] [address] [place], [place] [phone] Daisha Crane MD [address] [place], [place] [phone] Med Refill Social History Tobacco Use Types [...] immediate release tablet To be sent to: [facility] - [place], [place] - [address] [address] documented in this encounter Plan of Treatment Upcoming Encounters Date Type Department Care Team ([facility] st Contact Info) Description 01/22/2025 9:00 AM EDT Medication Management [facility] [address] [place] [address] Lisa Liao, PharmD [address] [place] [address] 02/26/2025 11:00 AM EDT Telemedicine [facility] [address] [place] [address] Loyda Banda, SO [address] [place] [address] 03/07/2025 10:15 AM EDT Office Visit [facility] [address] [place] [address] Daisha Crane MD [address] [place] [address] documented as of this encounter Goals Goal Patient Goal Type Associated Problems Recent Progress Patient-Stated? Author Blood Pressure < 140/90 Blood Pressure 110/50(2024 9:20 AM EST) No Lisa Anguiano PharmD Hemoglobin A1c < 8 Result Component 6.9( 10:06 AM EST) No Lisa Anguiano PharmAj documented as of this encounter Visit Diagnoses Not on filedocumented in this encounter Additional Health Concerns Assessment Noted Time PHQ-9 Depression Total Score: 0 11/23/19 10:39 AM EST documented as of this encounter Care Teams Electorate Officer Relationship Specialty Start Date End Date Daisha Crane MD [address] [place] [address] PCP - General Family Medicine 11/01/18 Lisa Liao, PharmD [address] [place] [address] Pharmacist Internal Medicine 04/06/23 Alissa Santillan MD [address] [place] [address] Rheumatology 11/09/24 Sharon Guardado [address]rd [place] [address] Cardiology 11/13/24 Cedric Lujan MD [address] [place] [address] Orthopaedic Surgery 11/23/24 documented as of this encounter
--- OUTSIDE RECORDS SUMMARY | 2025-01-02 09:02 | XMS_ITS | Encounter Summary ---
Author Organization [employer] [facility] Address [address] [facility] 7t [place] [address] Care Team Providers Care Loss Prevention Investigator Name Role Phone Daisha Crane MD Primary Care Provider [phone]- [phone] Lisa Liao PharmD Unavailable [phone] Alissa Santillan MD Unavailable Sharon Guardado Unavailable Cedric Lujan MD Unavailable Encounter Details Date Type Department Care Team (Late st Contact Info) Description 03/15/2023 Orders Only [facility] [address] [place], [place] [phone] Jenn Polk LPN Social History Tobacco Use [...] Description 01/22/2025 9:00 AM EDT Medication Management [facility] [address] [place], [place] [phone] Lisa Liao, PharmD [address] [place], [place] [phone] 02/26/2025 11:00 AM EDT Telemedicine [facility] [address] [place] [address] Loyda Banda, RN [address] [place], [place] 03/07/2025 10:15 AM EDT Office Visit [facility] [address] [place] [address] Daisha Crane MD [address] [place] [address] documented as of this encounter Visit Diagnoses Not on filedocumented in this encounter Additional Health Concerns Assessment Noted Time PHQ-9 Depression Total Score: 0 11/23/19 10:39 AM EST documented as of this encounter Care Teams Loss Prevention Investigator Relationship Specialty Start Date End Date Daisha Crane MD [address] [place] [address] PCP - General Family Medicine 11/01/18 Lisa Liao, PharmD [address] [place] [address] Pharmacist Internal Medicine 04/06/23 Alissa Santillan MD [address] [place] [address] Rheumatology 11/09/24 Sharon Guardado [address]rd [place] [address] Cardiology 11/13/24 Cedric Lujan MD [address] [place] [address] Orthopaedic Surgery 11/23/24 documented as of this encounter
--- OUTSIDE RECORDS SUMMARY | 2025-01-02 09:02 | XMS_ITS | Encounter Summary ---
Author Organization [employer] Address [address] [facility] 7t [place] [address] Care Team Providers Care Dorr Operator Name Role Phone Daisha Crane MD Primary Care Provider +- [phone] Lisa Liao PharmD Unavailable [phone]- [phone] Alissa Santillan MD Unavailable Sharon Guardado Unavailable Cedric Lujan MD Unavailable Encounter Details Date Type Department Care Team (Late st Contact Info) Description 12/20/2024 Orders Only [facility] External Provider, [facility] Heart murmur (Primary Dx) Social History Tobacco Use Types [...] Description 01/22/2025 9:00 AM EDT Medication Management [facility] [address] [place] [phone] Lisa Liao PharmD [address] [place] [address] 02/26/2025 11:00 AM EDT Telemedicine [facility] [address] [place] [address] Loyda Banda, SO [address] [place] [address] 03/07/2025 10:15 AM EDT Office Visit [facility] [address] [place] [address] Daisha Crane MD [address] [place] [address] documented as of this encounter Goals Goal [...] MYOCARDIAL PERFUSION Routine 12/20/2024 8:16 AM EST documented in this encounter Results * Stress test with myocardial perfusion (12/20/2024 8:16 AM EST) 12/20/2024 8:16 AM EST Narrative [facility] - 12/24/2024 2:57 PM EST ? [facility] ?[address] ?[place] [address] ?Nuclear Medicine Report ? Signed ? Patient: Patrice Jenkins ?MR#: [id number] ?? [id number] ? : 1945 ?Acct:[id number] ? Age/Sex: 79 / M ?ADM Date: 12/20/24 ? Loc: HO.CARD ? Attending Dr: Sharon LEWIS ? Ordering Physician: Sharon Guardado ?? Date of Service: 12/20/24 ?? Procedure(s): NM cardiolite stress test ?? Accession Number(s): [id number] ? cc: Daisha Crane MD; Sharon Guardado [...] DD/ 0816 ? TD/TT: 12/21/24 1215 ? Embedded Nurse: ? Procedure Note Donlynette, Image - 12/24/2024 [place] [address] Nuclear Medicine Report Signed Patient: Patrice JenkinsMR#: [id number] : 7Acct:[id number] Age/Sex: 79 / MADM Date: 12/20/24 Loc: [facility] Attending Dr: Sharon LEWIS Ordering Physician: Sharon Guardado Date of Service: 12/20/24 Procedure(s): NM cardiolite stress test Accession Number(s): [id number] cc: Daisha Crane MD; Sharon Guardado [employer] [...] by: Volodymyr Curran MD 12/24/2024 02:54 PM [facility] Dictated By: Volodymyr Curran MD Signed By: <Electronically signed by Volodymyr Curran MD inOV> 12/24/24 1454 DD/ 0816 TD/TT: 12/21/24 1215 Embedded Nurse: [facility] External Provider CV STRE SS PROCEDURES Final Result [facility] [address] [place] [address] documented in this encounter Visit Diagnoses Diagnosis Heart murmur- Primary Undiagnosed cardiac murmurs documented in this encounter Additional Health Concerns Assessment Noted Time PHQ-9 Depression Total Score: 0 04/06/20 24 9:11 AM EDT documented as of this encounter Care Teams Dorr Operator Relationship Specialty Start Date End Date Daisha Crane MD [address] [place] [address] PCP - General Family Medicine 11/01/18 Lisa Liao, GenevaD [address] [place] [address] Pharmacist Internal Medicine 04/06/23 Alissa Santillan MD [address] [place] [address] Rheumatology 11/09/24 Sharon Guardado [address]rd [place] [address] Cardiology 11/13/24 Cedric Lujan MD [address] [place] [address] Orthopaedic Surgery 11/23/24 documented as of this encounter
--- OUTSIDE RECORDS SUMMARY | 2025-01-02 09:02 | XMS_ITS | Encounter Summary ---
Author Organization [employer] Address [address] [facility] 7t [place] [address] Care Team Providers Care Mold Cooler Name Role Phone Daisha Crane MD Primary Care Provider +1- [phone] Lisa LiaoD Unavailable +1- [phone] Alissa Santillan MD Unavailable Sharon Guardado Unavailable Cedric Lujan MD Unavailable Encounter Details Date Type Department Care Team (Latest Contact Info) Description 12/15/2024 Travel Social History Tobacco Use Types Packs/Day [...] Description 01/22/2025 9:00 AM EDT Medication Management [facility] [address] [place] [phone] Lisa Liao, PharmD [address] [place] [address] 02/26/2025 11:00 AM EDT Telemedicine [facility] [address] [place], [place] [phone] Loyda Banda, SO [address] [place], [place] [phone] 03/07/2025 10:15 AM EDT Office Visit [facility] [address] [place] [address] Daisha Crane MD [address] [place], [place] [phone] documented as of this encounter Goals Goal [...] documented as of this encounter Care Teams Mold Cooler Relationship Specialty Start Date End Date Daisha Crane MD [address] [place] [address] PCP - General Family Medicine 11/01/18 Lisa Liao PharmD [address] [place] [address] Pharmacist Internal Medicine 04/06/23 Alissa Santillan MD [address] [place] [address] Rheumatology 11/09/24 Sharon Guardado [address] [place] [address] Cardiology 11/13/24 Cedric Lujan MD [address] [place] [address] Orthopaedic Surgery 11/23/24 documented as of this encounter
--- OUTSIDE RECORDS SUMMARY | 2025-01-02 09:02 | XMS_ITS | Encounter Summary ---
Author Organization [employer] Address [address] [facility] 7t [place] [address] Care Team Providers Care Oracle Bpm Consultant Name Role Phone Daisha Crane MD Primary Care Provider + [phone] Lisa Liao PharmD Unavailable [phone]- [phone] Alissa Santillan MD Unavailable Sharon Guardado Unavailable Cedric Lujan MD Unavailable Encounter Details Date Type Department Care Team (Late st Contact Info) Description 12/15/2024 Refill [facility] [address] [place], [place] [phone] Loyda Banda, SO [address] [place] [address] Pain Social History Tobacco Use Types Packs/Day [...] encounter Miscellaneous Notes * Telephone Encounter - Loyda Banda RN - 12/15/2024 9:36 AM EST .What CREDIT CARD CLERK Tier would you like this patient to be? Tier 1 = HIGH RISK, Monthly CREDIT CARD CLERK visits Tier 2 = MODerate RISK, Q3 Month visits Tier 3 = LOW RISK = Q4-6 month visits documented in this encounter Plan of Treatment Upcoming Encounters Date Type Department Care Team (Late st Contact Info) Description 01/22/2025 9:00 AM EDT Medication Management [facility] [address] [place] [address] Lisa Liao, PharmD [address] [place] [address] 02/26/2025 11:00 AM EDT Telemedicine [facility] [address] [place] [address] Loyda Banda, RN [address] [place] [address] 03/07/2025 10:15 AM EDT Office Visit [facility] [address] [place] [address] Daisha Crane MD [address] [place] [address] documented as of this encounter Goals Goal [...] documented as of this encounter Care Teams Oracle Bpm Consultant Relationship Specialty Start Date End Date Daisha Crane MD [address] [place] [address] PCP - General Family Medicine 11/01/18 Lisa Liao, PharmD [address] [place] [address] Pharmacist Internal Medicine 04/06/23 Alissa Santillan MD [address] [place] [address] Rheumatology 11/09/24 Sharon Guardado [address]rd [place] [address] Cardiology 11/13/24 Cedric Lujan MD [address] [place] [address] Orthopaedic Surgery 11/23/24 documented as of this encounter
--- OUTSIDE RECORDS SUMMARY | 2025-01-02 09:02 | XMS_ITS | Encounter Summary ---
Author Organization [employer] Address [address] [facility] 7t [place] [address] Care Team Providers Care Blasting Machine Operator Name Role Phone Daisha Crane MD Primary Care Provider + [phone] Lisa Liao PharmD Unavailable [phone]- [phone] Alissa Santillan MD Unavailable Sharon Guardado Unavailable Cedric Lujan MD Unavailable Reason for Visit * Reason Comments Med Refill Encounter Details Date Type Department Care Team (Late st Contact Info) Description 08/31/2023 Refill [facility] MEDICINE 230 [place], [place] [phone] Key Gregory MD 230 [place], [place] [phone] Tinea versicolor Social History Tobacco Use Types [...] Description 01/22/2025 9:00 AM EDT Medication Management [facility] MEDICINE [address] [place] [address] Lisa Liao PharmD [address] [place] [address] 02/26/2025 11:00 AM EDT Telemedicine [facility] MED & PEDS 505 [place] [address] Loyda Banda, SO 505 [place] [address] 03/07/2025 10:15 AM EDT Office Visit [facility] MEDICINE [address] [place] [address] Daisha Crane MD 230 [place] [address] documented as of this encounter Goals Goal [...] documented as of this encounter Care Teams Blasting Machine Operator Relationship Specialty Start Date End Date Daisha Crane MD 230 [place] [address] PCP - General Family Medicine 11/01/18 Lisa Liao, GenevaD 230 [place] [address] Pharmacist Internal Medicine 04/06/23 Alissa Santillan MD [address] [place] [address] Rheumatology 11/09/24 Sharon Guardado [address] 3rd [place] [address] Cardiology 11/13/24 Cedric Lujan MD [address] [place] [address] Orthopaedic Surgery 11/23/24 documented as of this encounter
--- OUTSIDE RECORDS SUMMARY | 2025-01-02 09:02 | XMS_ITS | Encounter Summary ---
Author Organization [employer] [facility] Address [address] [facility] 7t [place] [address] Care Team Providers Care Town Marshal Name Role Phone Daisha Crane MD Primary Care Provider +1- [phone] Lisa Liao PharmD Unavailable [phone] Alissa Santillan MD Unavailable Sharon Guardado Unavailable Cedric Lujan MD Unavailable Encounter Details Date Type Department Care Team (Late st Contact Info) Description 03/05/2023 Orders Only [facility] MEDICINE 230 [place], [place] [phone] Radha Johnson LPN Social History Tobacco Use [...] Description 01/22/2025 9:00 AM EDT Medication Management [facility] MEDICINE 230 [place], [place] [phone] Lisa Liao, PharmD 230 [place], [place] [phone] 02/26/2025 11:00 AM EDT Telemedicine [facility] CH[facility] MED & PEDS 505 [place] [address] Loyda Banda, RN 505 [place], [place] 03/07/2025 10:15 AM EDT Office Visit [facility] MEDICINE 230 [place] [address] Daisha Crane MD [address] [place] [address] documented as of this encounter Visit Diagnoses Not on filedocumented in this encounter Additional Health Concerns Assessment Noted Time PHQ-9 Depression Total Score: 0 11/23/19 10:39 AM EST documented as of this encounter Care Teams Town Marshal Relationship Specialty Start Date End Date Daisha Crane MD 230 [place] [address] PCP - General Family Medicine 11/01/18 Lisa Liao, GenevaD [address] [place] [address] Pharmacist Internal Medicine 04/06/23 Alissa Santillan MD [address] [place] [address] Rheumatology 11/09/24 Sharon Guardado [address] 3rd [place] [address] Cardiology 11/13/24 Cedric Lujan MD [address] [place] [address] Orthopaedic Surgery 11/23/24 documented as of this encounter
--- OUTSIDE RECORDS SUMMARY | 2025-01-02 09:02 | XMS_ITS | Encounter Summary ---
Author Organization [employer] [facility] Address [address] [facility] 7t [place] [address] Care Team Providers Care Bag Valver Name Role Phone Daisha Crane MD Primary Care Provider +1- [phone] Lisa Liao PharmD Unavailable Alissa Santillan MD Unavailable Sharon Guardado Unavailable Cedric Lujan MD Unavailable Reason for Visit * Reason Onset Date Comments Med Refill 03/15/2023 Encounter Details Date Type Department Care Team (Late st Contact Info) Description 03/15/2023 Telephone [facility] MEDICINE 230 [place], [place] [phone] Daisha Crane MD 230 [place], [place] [phone] Med Refill Social History Tobacco Use Types [...] 9:00 AM EDT Medication Management [facility] MEDICINE [address] [place] [address] Lisa Liao PharmD [address] [place] [address] 02/26/2025 11:00 AM EDT Telemedicine [facility] CH[facility] MED & PEDS 505 [place], [place] [phone] Loyda Banda, RN 505 [place] [address] 03/07/2025 10:15 AM EDT Office Visit [facility] MEDICINE [address] [place] [address] Daisha Crane MD [address] [place] [address] documented as of this encounter Visit Diagnoses Not on filedocumented in this encounter Additional Health Concerns Assessment Noted Time PHQ-9 Depression Total Score: 0 11/23/19 23 10:39 AM EST documented as of this encounter Care Teams Bag Valver Relationship Specialty Start Date End Date Daisha Crane MD [address] [place] [address] PCP - General Family Medicine 11/01/18 Lisa Liao, PharmD [address] [place] [address] Pharmacist Internal Medicine 04/06/23 Alissa Santillan MD [address] [place] [address] Rheumatology 11/09/24 Sharon Guardado [address] 3rd [place] [address] Cardiology 11/13/24 Cedric Lujan MD [address] [place] [address] Orthopaedic Surgery 11/23/24 documented as of this encounter
--- OUTSIDE RECORDS SUMMARY | 2025-01-02 09:02 | XMS_ITS | Encounter Summary ---
Author Organization [employer] Address 75 [facility] 7t [place] [address] Care Team Providers Care Tape Recorder Mechanic Name Role Phone Daisha Crane MD Primary Care Provider +- [phone] Lisa Liao PharmD Unavailable [phone]- [phone] Alissa Santillan MD Unavailable Sharon Guardado Unavailable Cedric Lujan MD Unavailable Encounter Details Date Type Department Care Team (Late st Contact Info) Description 11/18/2023 Telephone [facility] MEDICINE 230 [place], [place] [phone] Daisha Crane MD 230 [place], [place] [phone] Social History Tobacco Use Types Packs/Day Years [...] Description 01/22/2025 9:00 AM EDT Medication Management [facility] MEDICINE [address] [place] [address] Lisa Liao PharmD [address] [place] [address] 02/26/2025 11:00 AM EDT Telemedicine [facility] CH[facility] MED & PEDS 505 [place], [place] [phone] Loyda Banda, SO 505 [place] [address] 03/07/2025 10:15 AM EDT Office Visit [facility] MEDICINE [address] [place] [address] Daisha Crane MD 230 [place] [address] documented as of this encounter Goals Goal [...] documented as of this encounter Care Teams Tape Recorder Mechanic Relationship Specialty Start Date End Date Daisha Crane MD 230 [place] [address] PCP - General Family Medicine 11/01/18 Lisa Liao, PharmD 230 [place] [address] Pharmacist Internal Medicine 04/06/23 Alissa Santillan MD [address] [place] [address] Rheumatology 11/09/24 Sharon Guardado [address] 3rd [place] [address] Cardiology 11/13/24 Cedric Lujan MD [address] [place] [address] Orthopaedic Surgery 11/23/24 documented as of this encounter
[2025-01-02] MEDS: iohexoL 350 MG/ML 100 ML INFUS..BTL IV (09:34)
[2025-01-02 12:50] LABS: Creatinine POC 0.9 mg/dL (0.5-1.4); GFR POC > 60
== END 2025-01-02 08:34 | disposition home or self-care (01) ==
LOC: HO.CT 08:33
PROVIDERS: PCP Family Medicine; Visit Provider Nurse Practitioner Family
DX: I77.810 Thoracic aortic ectasia (principal)
CPT/HCPCS: 71275; 82565; Q9967

== ENCOUNTER → 2025-01-02 08:35 | Outpatient (BNV) | payer OTHER, SELFPAY | PROVIDERS: PCP Family Medicine; Visit Provider Radiology Diagnostic Radiology | DX: I71.21 Aneurysm of the ascending aorta, without rupture (principal) | CPT/HCPCS: 71275 ==

== ENCOUNTER 2025-01-11 08:42 | Outpatient (AMB) | payer OTHER, SELFPAY ==
[2025-01-11 09:01] VITALS: BP 114/52; PULSE 65; BMI 25.5
--- NOTE | 2025-01-11 09:01 | A.OFFVIS_ITS ---
Vital Signs 01/11/25 09:01 Height 5 ft 6 in Weight 157 lb 13.616 oz BMI 25.5 BP 114/52 L Blood Pressure Location Lt brachial Position Sitting Pulse 65 Pulse Source Pulse Oximeter Intake Visit Reasons: f/u after testing Game Artist Required: No Allergies lisinopril [LISINOPRIL] Allergy (Severe, Verified 01/11/25 09:04) Angioedema LAITH Inhibitors Adverse Reaction (Severe, Verified 01/11/25 09:04) Angioedema Medication List - Last Reconciled 01/11/25 by DEBBIE Mckenzie acetaminophen (Tylenol Extra Strength) 500 mg PO Q6H PRN albuterol sulfate 90 mcg/actuation 2 puffs inhalation Q4H PRN atorvastatin 40 mg PO BEDTIME carvedilol 6.25 mg PO BID 90 days cholecalciferol (vitamin D3) 25 mcg PO DAILY docusate sodium (Colace) 100 mg PO BID fluticasone furoate 200 mcg/actuation (Arnuity Ellipta) 1 inh inhalation DAILY fluticasone propionate 220 mcg/actuation 2 puffs inhalation BID folic acid 1 mg PO QAM hydrochlorothiazide 12.5 mg PO DAILY hydroxychloroquine orally; Take 1 tab twice daily x5 days a week and 1 tab daily x2 days a week icosapent ethyl grams PO loteprednol etabonate 0.5% 1 drp ophthalmic (eye) TID melatonin 3 mg PO BEDTIME PRN metformin ER 500 mg PO DAILY olopatadine 0.1% 1 drp ophthalmic (eye) QID omeprazole 20 mg PO QAM oxycodone 5 mg PO Q12H PRN polyethylene glycol 3350 (Miralax) 17 grams PO DAILY PRN prednisone 10 mg PO DAILY Rasuvo (PF) (methotrexate (PF)) 25 mg (0.5 mL) subcut QWEEK NS sennosides 17.2 mg PO BEDTIME PRN tocilizumab (Actemra ACTPen) 162 mg (0.9 mL) subcut Q2W umeclidinium 62.5 mcg/actuation (Incruse Ellipta) 1 inh inhalation BEDTIME HPI HPI f/u after testing: Details: Patrice is a 79-year-old male with past medical history of hypertension, smoking, rheumatoid arthritis, bicuspid aortic valve without stenosis or regurgitation, dilated ascending aorta who presents for follow-up after recent CT scan of the chest, ultrasound of the abdominal aorta and nuclear stress test.. Today he reports that he has been doing well since his last visit in November. He says that he did see the orthopedic surgeon and they are not going to do surgery on his shoulder. They do not feel he is a good candidate for it. He is now following with the pain management Clinic to control his pain symptom. His breathing has been comfortable with no recent change. No PND, orthopnea, edema. no chest discomfort at rest or with activities. No palpitations, presyncope, syncope, falls. He is taking his meds as directed. He ambulates with a cane and admits to being mostly sedentary. Daughter present and she is assisting with Pashto translation at their request. 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 Osteoporosis Seropositive rheumatoid arthritis History of prostate cancer Arthritis GERD (gastroesophageal reflux disease) COPD (chronic obstructive pulmonary disease) Asthma HTN (hypertension) Surgical History History of open reduction and internal fixation (ORIF) procedure Hx of umbilical hernia repair Hx of eye surgery History of back surgery History of colonoscopy History of removal of cyst History of tonsillectomy and adenoidectomy History of arthroscopy of left shoulder History of prostate surgery Family History Mother History of breast cancer, Onset Age: 87 Father History of asthma Social History Alcohol intake: never Patient Tobacco Use Status: Current everyday Tobacco user Tobacco use type: Cigarette Cigarettes Per Day: 7 Years Smoked: 60 +/- e-Cigarette/Vaping Use: Never Used Current occupational status: retired Current occupation: Rt [employer] Gender identity: Male Review of Systems Const All systems reviewed & are unremarkable except as noted in HPI and below ENT Denies dizziness Card Denies chest pain, Denies chest pain at rest, Denies chest pain with activity, Denies rapid heart rate, Denies pedal edema, Denies edema, Denies leg edema, Denies lightheadedness, Denies palpitations, Denies dyspnea, Denies dyspnea on exertion and Denies orthopnea Resp Denies cough, Denies dyspnea and Denies dyspnea on exertion GI Denies hematochezia and Denies change in stool character Musc Denies abnormal gait, Denies limited range of motion, Denies muscle cramps, Denies muscle weakness, Denies numbness, Denies radiating pain into limb, Denies stiffness and Denies tingling Neuro Denies abnormal gait, Denies dizziness, Denies numbness and Denies tingling Endo Denies palpitations Physical Exam Vital Signs: Last Vital Signs Pulse 65 01/11/25 09:01 BP 114/52 L 01/11/25 09:01 BMI result Body Mass Index 25.5 Const Other: appears older than stated age General: cooperative, comfortable and no acute distress Orientation/consciousness: patient oriented x3 Neck Neck: Yes normal visual inspection Resp Effort & Inspection: normal respiratory effort Auscultation: clear to auscultation bilaterally, no rales, no rhonchi and no wheezes Cardio Jugular venous distension: no JVD Rate: regular rate Rhythm: regular rhythm Heart sounds: S1 normal heart sound present, S2 normal heart sound present, no murmurs and no rubs Neuro General: patient oriented x3 Extrem General: Yes normal to inspection and No no pedal edema Psych Appearance: grossly normal Mental Status: mental status grossly normal Speech and movement: Normal speech and movement present Assessment & Plan Assessment & Plan (1) Ascending aorta dilatation: Code(s): I77.810 - Thoracic aortic ectasia Category: Medical Plan: Hx of dilated ascending aorta. Echo done 08/28/22 and 08/25/23 showed moderate dilation of ascending aorta at 4.6 cm. Last echo done 08/10/2024 shows EF 60- 65%, dilated ascending aorta 4.7 cm. CTA of the chest done on 01/02/2025 shows ascending aorta 4.6 cm, overall stable. He had an abdominal ultrasound to assess for abdominal aortic aneurysm on 12/01/24 which showed no aneurysm. Blood pressure is well controlled. He is on statin therapy. Instructed on no heavy lifting. No med changes made today. Repeat echocardiogram in 1 year. Cardiology follow-up 1 year, sooner if needed. (2) Bicuspid aortic valve: Code(s): Q23.1 - Congenital insufficiency of aortic valve Category: Medical Plan: Prior notes indicate a hx of Bicuspid aortic valve without stenosis or regurgitation. Followed by echocardiograms. Echo 08/25/2023 shows mild calcification of the aortic valve, no regurgitation or stenosis. Echocardiogram 08/10/2024 is showing normal aortic valve structure and function with no stenosis or regurgitation. It is unclear to me if he truly has a bicuspid aor tic valve or not. Repeat echo in 1 year. (3) Chest discomfort: Code(s): R07.89 - Other chest pain Category: Medical Plan: Prior reports of atypical chest discomfort. He has no known CAD. Nuclear stress test done 10/15/2021 showing normal myocardial perfusion imaging. Repeat nuclear stress test done 12/20/2024 showed normal myocardial perfusion imaging. (4) HTN (hypertension): Code(s): I10 - Essential (primary) hypertension Category: Medical Plan: Well controlled at this time. Continue hydrochlorothiazide and carvedilol. (5) Edema of both ankles: Code(s): M25.471 - Effusion, right ankle; M25.472 - Effusion, left ankle Category: Medical Plan: Resolved. Was most likely related to amlodipine use. Plan Time spent on chart review, documentation, interview and assessment Orders: Orders CA echo transthoracic complete 12/31/25 I77.810 - Thoracic aortic ectasia, Q23.1 - Congenital insufficiency of aortic valve Coding Level of Care Code Est Pt Level 4 (53335) Diagnoses Ascending aorta dilatation I77.810 Bicuspid aortic valve Q23.1 Chest discomfort R07.89 HTN (hypertension) I10 Edema of both ankles M25.471; M25.472 Time Spent (min) 28
--- OUTSIDE RECORDS SUMMARY | 2025-01-11 09:27 | XMS_ITS | Encounter Summary ---
Author Organization [facility] Address [address] [facility] 7t [place] [address] Care Team Providers Care Obiee Report Developer Name Role Phone Daisha Crane MD Primary Care Provider +1- [phone] Lisa Liao PharmD Unavailable Alissa Santillan MD Unavailable Sharon Guardado Unavailable Cedric Lujan MD Unavailable Reason for Visit * Reason Onset Date Comments Med Refill 07/07/2023 Encounter Details Date Type Department Care Team (Late st Contact Info) Description 07/07/[address] [facility] MEDICINE 230 [place], [place] [phone] Daisha Crane MD 230 [place], [place] [phone] Med Refill Social History Tobacco Use Types [...] Please sent to [facility] - [place], [place] - [address] [place] [address] documented in this encounter Plan of Treatment Upcoming Encounters Date Type Department Care Team (Late st Contact Info) Description 01/22/2025 9:00 AM EDT Medication Management [facility] MEDICINE [address] [place] [address] Lisa Liao, PharmD [address] [place] [address] 02/26/2025 11:00 AM EDT Telemedicine [facility] MED & PEDS 505 [place], [place] [phone] Loyda Banda RN 505 [place] [address] 03/07/2025 10:15 AM EDT Office Visit [facility] MEDICINE [address] [place] [address] Daisha Crane MD [address] [place] [address] documented as of this encounter Goals Goal [...] documented as of this encounter Care Teams Obiee Report Developer Relationship Specialty Start Date End Date Daisha Crane MD [address] [place] [address] PCP - General Family Medicine 11/01/18 Lisa Liao, GenevaD 230 [place] [address] Pharmacist Internal Medicine 04/06/23 Alissa Santillan MD [address] [place] [address] Rheumatology 11/09/24 Sharon Guardado [address] 3rd [place] [address] Cardiology 11/13/24 Cedric Lujan MD [address] [place] [address] Orthopaedic Surgery 11/23/24 documented as of this encounter
--- OUTSIDE RECORDS SUMMARY | 2025-01-11 09:27 | XMS_ITS | Encounter Summary ---
Author Organization [employer] Address [address] [facility] 7t [place] [address] Care Team Providers Care Film Historian Name Role Phone Daisha Crane MD Primary Care Provider +1- [phone] Lisa Liao PharmD Unavailable [phone] Alissa Santillan MD Unavailable Sharon Guardado Unavailable Cedric Lujan MD Unavailable Reason for Visit * Reason Onset Date Comments Med Refill 07/04/2024 Encounter Details Date Type Department Care Team (Late st Contact Info) Description 07/04/2024 Telephone [facility] MEDICINE 230 [place], [place] [phone] Daisha Crane MD 230 [place], [place] [phone] Med Refill Social History Tobacco Use Types [...] immediate release tablet To be sent to: [facility] - [place], [place] - [address] [place] [address] documented in this encounter Plan of Treatment Upcoming Encounters Date Type Department Care Team ([facility] st Contact Info) Description 01/22/2025 9:00 AM EDT Medication Management [facility] MEDICINE 230 [place] [address] Lisa Liao, PharmD 230 [place] [address] 02/26/2025 11:00 AM EDT Telemedicine [facility] MED & PEDS 505 [place] [address] Loyda Banda, RN [address] [place] [address] 03/07/2025 10:15 AM EDT Office Visit [facility] MEDICINE 230 [place] [address] Daisha Crane MD [address] [place] [address] documented as of this encounter Goals Goal [...] documented as of this encounter Care Teams Film Historian Relationship Specialty Start Date End Date Daisha Crane MD 230 [place] [address] PCP - General Family Medicine 11/01/18 Lisa Liao, PharmD 230 [place] [address] Pharmacist Internal Medicine 04/06/23 Alissa Santillan MD [address] [place] [address] Rheumatology 11/09/24 Sharon Guardado [address] 3rd [place] [address] Cardiology 11/13/24 Cedric Lujan MD [address] [place] [address] Orthopaedic Surgery 11/23/24 documented as of this encounter
--- OUTSIDE RECORDS SUMMARY | 2025-01-11 09:27 | XMS_ITS | Encounter Summary ---
Author Organization [employer] Address 75 [facility] 7t [place] [address] Care Team Providers Care Author'S Agent Name Role Phone Daisha Crane MD Primary Care Provider +1- [phone] Lisa Liao PharmD Unavailable [phone] Alissa Santillan MD Unavailable Sharon Guardado Unavailable Cedric Lujan MD Unavailable Reason for Visit * Reason Onset Date Comments Med Refill 06/05/2024 Encounter Details Date Type Department Care Team (Late st Contact Info) Description 06/05/2024 Telephone [facility] MEDICINE 230 [place], [place] [phone] Daisha Crane MD [address] [place], [place] [phone] Med Refill Social History Tobacco Use Types [...] immediate release tablet To be sent to: [facility] - [place], [place] - [address] [place] [address] documented in this encounter Plan of Treatment Upcoming Encounters Date Type Department Care Team ([facility] st Contact Info) Description 01/22/2025 9:00 AM EDT Medication Management [facility] MEDICINE 230 [place] [address] Lisa Liao, PharmD 230 [place] [address] 02/26/2025 11:00 AM EDT Telemedicine [facility] CHC MED & PEDS 505 [place] [address] Loyda Banda, RN 505 [place] [address] 03/07/2025 10:15 AM EDT Office Visit [facility] MEDICINE 230 [place] [address] Daisha Crane MD [address] [place] [address] documented as of this encounter Goals Goal [...] documented as of this encounter Care Teams Author'S Agent Relationship Specialty Start Date End Date Daisha Crane MD [address] [place] [address] PCP - General Family Medicine 11/01/18 Lisa Liao, PharmD [address] [place] [address] Pharmacist Internal Medicine 04/06/23 Alissa Santillan MD [address] [place] [address] Rheumatology 11/09/24 Sharon Guardado [address] 3rd [place] [address] Cardiology 11/13/24 Cedric Lujan MD [address] [place] [address] Orthopaedic Surgery 11/23/24 documented as of this encounter
--- OUTSIDE RECORDS SUMMARY | 2025-01-11 09:27 | XMS_ITS | Encounter Summary ---
Author Organization [employer] Address [address] [facility] 7t [place] [address] Care Team Providers Care Customer Field Representative Name Role Phone Daisha Crane MD Primary Care Provider +- [phone] Lisa Liao PharmD Unavailable Alissa Santillan MD Unavailable Sharon Guardado Unavailable Cedric Lujan MD Unavailable Reason for Visit * Reason Comments Med Refill Encounter Details Date Type Department Care Team (Late st Contact Info) Description 11/21/2024 Refill [facility] [address] [place], [place] [phone] Cara Whitfield MD [address] [place], [place] [phone] Pain Social History Tobacco Use Types Packs/Day [...] 01/22/2025 9:00 AM EDT Medication Management [facility] MEDICINE [address] [place] [address] Lisa Liao PharmD [address] [place] [address] 02/26/2025 11:00 AM EDT Telemedicine [facility] [address] [place] [address] Loyda Banda, RN 505 [place] [address] 03/07/2025 10:15 AM EDT Office Visit [facility]INE [address] [place] [address] Daisha Crane MD [address] [place], [place] [phone] documented as of this encounter Goals Goal [...] documented as of this encounter Care Teams Customer Field Representative Relationship Specialty Start Date End Date Daisha Crane MD [address] [place] [address] PCP - General Family Medicine 11/01/18 Lisa Liao, PharmD [address] [place] [address] Pharmacist Internal Medicine 04/06/23 Alissa Santillan MD [address] [place] [address] Rheumatology 11/09/24 Sharon Guardado [address] 3rd [place] [address] Cardiology 11/13/24 Cedric Lujan MD [address] [place] [address] Orthopaedic Surgery 11/23/24 documented as of this encounter
--- OUTSIDE RECORDS SUMMARY | 2025-01-11 09:27 | XMS_ITS | Encounter Summary ---
Author Organization [employer] Address [address] [facility] 7t [place] [address] Care Team Providers Care Clinical Science Liaison Name Role Phone Daisha Crane MD Primary Care Provider +1- [phone] Lisa Liao PharmD Unavailable Alissa Santillan MD Unavailable Sharon Guardado Unavailable Cedric Lujan MD Unavailable Reason for Visit * Reason Onset Date Comments Durable Medical Equipment 08/08/2024 Encounter Details Date Type Department Care Team (Late st Contact Info) Description 08/08/2024 Telephone [facility] [address] [place], [place] [phone] Daisha Crane MD [address] [place], [place] [phone] Durable Medical Equipment Social History Tobacco Use [...] Description 01/22/2025 9:00 AM EDT Medication Management [facility] [address] [place] [address] Lisa Liao, PharmD [address] [place] [address] 02/26/2025 11:00 AM EDT Telemedicine [facility] 505 [place] [address] Loyda Banda, RN 505 [place] [address] 03/07/2025 10:15 AM EDT Office Visit [facility] [address] [place] [address] Daisha Crane MD [address] [place] [address] documented as of this encounter Goals Goal [...] documented as of this encounter Care Teams Clinical Science Liaison Relationship Specialty Start Date End Date Daisha Crane MD [address] [place] [address] PCP - General Family Medicine 11/01/18 Lisa Liao, PharmD [address] [place] [address] Pharmacist Internal Medicine 04/06/23 Alissa Santillan MD [address] [place] [address] Rheumatology 11/09/24 Sharon Guardado [address]rd [place] [address] Cardiology 11/13/24 Cedric Lujan MD [address] [place] [address] Orthopaedic Surgery 11/23/24 documented as of this encounter
--- OUTSIDE RECORDS SUMMARY | 2025-01-11 09:27 | XMS_ITS | Encounter Summary ---
Author Organization [employer] Address 75 [facility] 7t [place] [address] Care Team Providers Care Build Engineer Name Role Phone Daisha Crane MD Primary Care Provider +1- [phone] Lisa Liao PharmD Unavailable Alissa Santillan MD Unavailable Sharon Guardado Unavailable Cedric Lujan MD Unavailable Reason for Visit * Reason Onset Date Comments Durable Medical Equipment 08/21/2024 Encounter Details Date Type Department Care Team (Late st Contact Info) Description 08/21/2024 Telephone [facility] [address] [place], [place] [phone] Daisha Crane MD [address] [place], [place] [phone] Durable Medical Equipment Social History Tobacco Use [...] 9:48 AM EDT TC from pt and [facility] called in states L&C got wrong script . Request was not for pullups , pt wasrequesting Nilo [facility]IST [phone] documented in this encounter Plan of Treatment Upcoming Encounters Date Type Department Care Team (Late st Contact Info) Description 01/22/2025 9:00 AM EDT Medication Management [facility] [address] [place] [address] Lisa Liao, PharmD 230 [place] [address] 02/26/2025 11:00 AM EDT Telemedicine [facility] PEDS [address] [place] [address] Loyda Banda, RN 505 [place] [address] 03/07/2025 10:15 AM EDT Office Visit [facility] [address] [place] [address] Daisha Crane MD [address] [place] [address] documented as of this encounter Goals Goal [...] documented as of this encounter Care Teams Build Engineer Relationship Specialty Start Date End Date Daisha Crane MD [address] [place] [address] PCP - General Family Medicine 11/01/18 Lisa Liao, PharmD [address] [place] [address] Pharmacist Internal Medicine 04/06/23 Alissa Santillan MD [address] [place] [address] Rheumatology 11/09/24 Sharon Guardado [address] 3rd [place] [address] Cardiology 11/13/24 Cedric Lujan MD [address] [place] [address] Orthopaedic Surgery 11/23/24 documented as of this encounter
--- OUTSIDE RECORDS SUMMARY | 2025-01-11 09:27 | XMS_ITS | Encounter Summary ---
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) Social History Tobacco Use Types Packs/Day [...] EDT Medication Management [facility] [address] [place] [address] Lisa Liao, Nidia [address] [place] [address] 02/26/2025 11:00 AM EDT Telemedicine [facility] PEDS [address] [place] [address] Loyda Banda, SO 505 [place] [address] 03/07/2025 10:15 AM EDT Office Visit [facility] [address] [place] [address] Daisha Crane MD [address] [place] [address] documented as of this encounter Goals Goal Patient Goal Type Associated Problems Recent Progress Patient-Stated? Author Blood Pressure < 140/90 Blood Pressure 110/50(2024 9:20 AM EST) No Piers-Lisa Donaldson PharmD Hemoglobin A1c < 8 Result Component 6.9( 4 10:06 AM EST) No Lisa Anguiano PharmD documented as of this encounter Visit Diagnoses Diagnosis Rheumatoid arthritis involving multiple sites with positive rheumatoid factor ([facility]) documented in this encounter Additional Health Concerns Assessment Noted Time PHQ-9 Depression Total Score: 0 04/06/20 24 9:11 AM EDT documented as of this encounter Care Teams Ground Water Contractor Relationship Specialty Start Date End Date Daisha Crane MD [address] [place] [address] PCP - General Family Medicine 11/01/18 Lisa Liao PharmD [address] [place] [address] Pharmacist Internal Medicine 04/06/23 Alissa Santillan MD [address] [place] [address] Rheumatology 11/09/24 Sharon Guardado [address]rd [place] [address] Cardiology 11/13/24 Cedric Lujan MD [address] [place] [address] Orthopaedic Surgery 11/23/24 documented as of this encounter
--- OUTSIDE RECORDS SUMMARY | 2025-01-11 09:27 | XMS_ITS | Encounter Summary ---
Author Organization [employer] [facility] Address [address] [facility] 7t [place] [address] Care Team Providers Care Vp Organizational Development Name Role Phone Daisha Crane MD Primary Care Provider Lisa Liao PharmD Unavailable Alissa Santillan MD Unavailable Sharon Guardado Unavailable Cedric Lujan MD Unavailable Reason for Visit * Reason Comments Med Refill Encounter Details Date Type Department Care Team (Late st Contact Info) Description 07/21/2023 Refill [facility] MEDICINE [address] [place], [place] [phone] Daisha Crane MD [address] [place], [place] [phone] Pulmonary emphysema, unspecified emphysema type (CMS/HCC) (Primary [...] Description 01/22/2025 9:00 AM EDT Medication Management [facility] MED[facility]INE [address] [place] [address] Lisa Liao PharmD [address] [place] [address] 02/26/2025 11:00 AM EDT Telemedicine [facility] MED & PEDS 505 [place] [address] Loyda Banda, SO [address] [place], [place] 03/07/2025 10:15 AM EDT Office Visit [facility] MED[facility]INE [address] [place] [address] Daisha Crane MD [address] [place] [address] documented as of this encounter Goals Goal [...] documented as of this encounter Care Teams Vp Organizational Development Relationship Specialty Start Date End Date Daisha Crane MD [address] [place] [address] PCP - General Family Medicine 11/01/18 Lisa Liao PharmD [address] [place] [address] Pharmacist Internal Medicine 04/06/23 Alissa Santillan MD [address] [place] [address] Rheumatology 11/09/24 Sharon Guardado [address] 3[address] Floor [place] [address] Cardiology 11/13/24 Cedric Lujan MD [address] [place] [address] Orthopaedic Surgery 11/23/24 documented as of this encounter
--- OUTSIDE RECORDS SUMMARY | 2025-01-11 09:28 | XMS_ITS | Encounter Summary ---
Author Organization [employer] [facility] Address 75 [facility] 7t [place] [address] Care Team Providers Care Station Installer And Repairer Name Role Phone Daisha Crane MD Primary Care Provider +1- [phone] Lisa Liao PharmD Unavailable Alissa Santillan MD Unavailable Sharon Guardado Unavailable Cedric Lujan MD Unavailable Encounter Details Date Type Department Care Team (Late st Contact Info) Description 10/28/2022 Telephone [facility] [address] [place] [address] [phone] Daisha Crane MD [address] [place] [address] [phone] Social History Tobacco Use Types Packs/Day Years [...] AM EDT Medication Management [facility] [address] [place] [address] Lisa Liao, PharmD 230 [place], [place] [phone] 02/26/2025 11:00 AM EDT Telemedicine [facility] MED [facility] PEDS 505 [place] [address] Loyda Banda, SO [address] [place] [address] 03/07/2025 10:15 AM EDT Office Visit [facility] 230 [place] [address] Daisha Crane MD 230 [place] [address] documented as of this encounter Visit Diagnoses Not on filedocumented in this encounter Care Teams Station Installer And Repairer Relationship Specialty Start Date End Date Daisha Crane MD 230 [place] [address] PCP - General Family Medicine 11/01/18 Lisa Liao, PharmD [address] [place] [address] Pharmacist Internal Medicine 04/06/23 Alissa Santillan MD [address] [place] [address] Rheumatology 11/09/24 Sharon Guardado [address] 3rd [place] [address] Cardiology 11/13/24 Cedric Lujan MD [address] [place] [address] Orthopaedic Surgery 11/23/24 documented as of this encounter
--- OUTSIDE RECORDS SUMMARY | 2025-01-11 09:28 | XMS_ITS | Clinical Summary ---
Author Organization [employer] [facility] Address [address] [place] [address] Care Team Providers Care Sr. Payroll Manager Name Role Phone Daisha Crane MD Primary Care Provider [phone] Lisa Liao PharmD Unavailable Alissa Santillan MD [...] 2 diabetes mellitus without complication, unspecified whether parts counterman insulin use ([facility]) TEST BLOOD SUGAR TWICE DAILY 50 strip 11 024 Active omeprazole (PriLOSEC) [address] capsuleIndicati ons:Gastroesoph ageal reflux disease without esophagitis TAKE 1 CAPSULE ON PACKAGE EVERY MORNING BEFORE A MEAL 90 capsule 3 024 Active TRUEplus Lancets 33G miscIndications :Type 2 diabetes mellitus without complication, without long-term current use of insulin ([facility]) Test daily blood glucose 100 each 11 Active folic acid (Folvite) 1 MG tabletIndicatio ns:Rheumatoid arthritis involving multiple sites with positive rheumatoid factor ([facility]) Take 1 tablet (1,000 mcg) by mouth in the morning. 90 tablet 3 024 Active metFORMIN XR (Glucophage-XR) 500 MG 24 hr tabletIndicatio ns:Type 2 diabetes mellitus without complication, without long-term current use of insulin ([facility]) Take 1 tablet by mouth twice daily. Do not crush, chew, or split. 180 tablet 3 024 Active melatonin 3 MG tabletIndicatio ns:Primary insomnia TAKE 1 TABLET BY MOUTH AT BEDTIME NEEDED FOR SLEEP 30 tablet 11 Active fluticasone furoate (Arnuity Ellipta) 200 MCG/ACT inhalerIndicati ons:Chronic obstructive pulmonary disease, unspecified COPD type ([facility]) INHALE 1 PUFF BY MOUTH EVERY [...] involving multiple sites with positive rheumatoid factor ([facility]) TAKE 1 TABLET BY MOUTH TWICE DAILY ON ON WEDNESDAY THROUGH WEDNESDAY OF EACH WEEK AND TAKE 1 TABLET BY MOUTH EVERY DAY ON WEDNESDAY AND Wednesday Active albuterol (Ventolin HFA) 108 (90 Base) [...] MORNING AND IN THE EVENING 180 capsule 025 Active senna (Senokot) 8.6 MG tabletIndicatio ns:Constipation , unspecified constipation type TAKE 2 TABLETS BY MOUTH EVERY DAY IN THE EVENING NEEDED FOR CONSTIPATION 180 tablet 1 025 Active oxyCODONE (Roxicodone) 5 MG immediate release tabletIndicatio ns:Pain Take 1 tablet (5 mg) by mouth every 8 (eight) hours if needed for severe pain. 56 tablet 025 Active naloxone (Narcan) 4 mg/0.1 mL nasal sprayIndication s:Rheumatoid arthritis involving multiple sites with positive rheumatoid factor (CMS/HCC) FOR SUSPECTED OPIOID OVERDOSE. SPRAY 0.1mL IN ONE NOSTRIL. REPEAT IN ALTERNATE NOSTRIL 2-3 MINUTES IF NEEDED. SEEK MEDICAL ATTENTION IMMEDIATELY EVEN IF PATIENT RESPONDS. 2 each 025 Active naloxone (Narcan) 4 mg/0.1 mL nasal sprayIndication s:Rheumatoid arthritis involving multiple sites with positive rheumatoid factor (CMS/HCC) May repeat every 2-3 minutes if needed, alternating nostrils, until medical assistance becomes available. 2 each 024 2024 Discontinued oxyCODONE (Roxicodone) 5 MG immediate release tabletIndicatio [...] be different from the original. Enrolled in [facility] DM and HTN clinic with Lisa Liao, GenevaD, [facility] Tuber Machine Operator: Denise, member services number [phone] Review Scheduling Coordinator Agency: [email or web address] ([employer]) [facility] Problem Noted Date Diagnosed Date Transaminitis 09/04/2024 Overview (09/04/2024): -ordered labs 09/04/24 Assessment & Plan (09/04/2024 5:00 PM EST): -ordered labs 09/04/24 [facility] (current) use of opiate analgesic 08/03 Neuropathic [...] with visit. He would like referral to [facility] , new referral placed 09/04/24 Assessment & Plan (09/04/2024 4:56 PM EST): -referral placed to Podiatry 04/06/[address] Daniels, he was not happy with with visit. He would like referral to [facility] , new referral placed 09/04/24 Assessment & Plan (04/06/2024 9:55 AM EDT): -referral placed to Podiatry 04/06/2024 Other specified health status 06/03/2023 Overview (09/04/2024): -next physical exam due after 09/04/2025 -eye care facilitated by [facility] and [facility] -dental home is [facility] [place]. -healthcare Proxy completed and filed 04/06/2024. Assessment & Plan (09/04/2024 5:02 PM EST): -next physical exam due after 09/04/2025 -eye care facilitated by [facility] and [facility] -dental home is [facility] [place]. -healthcare Proxy completed and filed 04/06/2024. Assessment & Plan (04/06/2024 9:51 AM EDT): -next physical exam due after 06/04/2024. -eye care facilitated by [facility]. -dental home is [facility] [place]. -healthcare Proxy completed and filed 04/06/2024. Assessment & Plan (06/04/2023 9:45 AM EDT): -next physical exam due after 06/04/2024. -eye care facilitated by [facility]. -dental home is [facility] [place]. Ascending aorta dilation 04/06/2023 Overview (01/02/2025): Followed by Sharon LEWIS for [facility]. Seen 05/30/24 -Hx of dilated [...] No evidence of an abdominal aortic aneurysm. 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 Overall stable. Assessment & Plan (09/04/2024 4:56 PM EST): Followed by Sharon Guardado NP-C for [facility]. Seen 05/30/24 -Hx of dilated [...] valve 04/06/2023 Overview (11/13/2024): -Followed by Sharon Guardado NP-C for [facility]. -Known hx of Bicuspid aortic valve without stenosis or regurgitation. Followed by echocardiograms. Last echo 08/25/2023 shows mild calcification of the aortic valve, no regurgitation or stenosis. Repeat echo ordered 2023. -Sharon Guardado REFRACTORY MANAGER-C for [facility] 11/2024 Prior notes indicate a [...] edema 04/06/2023 Overview (05/31/2024): Followed by Sharon Guardado NP-C for [facility] 05/30/24. History of leg edema [...] for September 2024. GERD (gastroesophageal reflux disease) [facility] systemic steroid user 04/06/2023 Osteoporosis 04/06/2023 Overview [...] as pharmacomtherapy, [facility] cessation [facility], and [facility] pharmacy smoking cessation clinic Discussed USPSTF [...] as pharmacomtherapy, [facility] smoking [facility] group, and [facility] pharmacy smoking cessation clinic Discussed USPSTF [...] as pharmacomtherapy, [facility] smoking cessation group, and [facility] pharmacy smoking cessation clinic Discussed USPSTF [...] rheumatoid factor 11/20/2022 Overview (11/09/2024): Seen by records and information manager Dr. Minnie Santillan 05/23/24 -On Actemra 162 [...] Plan (09/04/2024 5:00 PM EST): Seen by records and information manager Dr. Minnie Santillan 05/23/24 -On Actemra 162 [...] Plan (04/06/2024 9:51 AM EDT): Followed by records and information manager. 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 If patient is cleared. Will start hydroxychloroquine Continue Rasuvo 25 mg weekly + Actemra every other week. Chest CTA 10/2022 showed no evidence of ILD T-spot and Hepatitis panel -ve 11/2023,. Labs before next visit in 3 months via rheumatology Seen by records and information manager Dr. Minnie Santillan 02/23/24 -On Actemra 162 [...] Plan (06/04/2023 9:39 AM EDT): -Followed by records and information manager Dr. Fisher. -Currently on prednisone 2 mg daily -med rec to make sure we have correct meds on file -Continue Oxycodone 5mg BID as needed for pain -Did not tolerate Methotrexate, then Leflunomide 20mg daily but then d/c due to rash Assessment & Plan (11/20/2022 10:23 AM EST): -Followed by records and information manager Dr. Fisher. -Currently on prednisone 2 mg daily -med rec to make sure we have correct meds on file -Continue Oxycodone 5mg BID as needed for pain -Did not tolerate Methotrexate, then Leflunomide 20mg daily but then d/c due to rash Heart murmur 10/13/2022 Overview (12/24/2024): Seen by cardiology on 09/04/2021 c/w aortic stenosis on exam, echo, stress test ordered. Will request results. -MARK on 10/13/2021. Nuclear image pending -Echo on 09/15/2021 had EF of 60-65%. Suspect bicuspid aortic valve with fusion of the left and non-coronary cusps. No significant stenosis or regurgitation. 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 Followed by Sharon LEWIS for [facility] 05/30/24. History of leg edema [...] planned for September 2024. -Sharon AREVALOC for [facility] 11/2024 Thoracic aortic ectasia Category: [...] echo, stress test ordered. Will request results. -LEXINES on 10/13/2021. Nuclear image pending -Echo on 09/15/2021 had EF of 60-65%. Suspect bicuspid aortic valve with fusion of the left and non-coronary cusps. No significant stenosis or regurgitation. 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 Followed by Sharon LEWIS for [facility] 05/30/24. History of leg edema [...] echo, stress test ordered. Will request results. -MARK on 10/13/2021. Nuclear image pending -Echo on 09/15/2021 had EF of 60-65%. Suspect bicuspid aortic valve with fusion of the left and non-coronary cusps. No significant stenosis or regurgitation. 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 Assessment [...] dilatation measuring 4cm and ascending aorta 4.3cm [employer] Nanette Leonard seen in April 2022. Assessment [...] dilatation measuring 4cm and ascending aorta 4.3cm [employer] Nanette Leonard seen in April 2022. Currently [...] -Vascepa 2 grams twice daily started by CD 05/22/24 Assessment & Plan (09/04/2024 5:03 PM EST): Lab Results Component Value Date CHOL 115 02/16/2024 CHOL 155 06/17/2023 CHOL 177 11/16/2022 TRIG 205 (H) 02/16/2024 TRIG 166 06/17/2023 TRIG 168 11/16/2022 HDL 41 02/16/2024 HDL 55 06/17/2023 HDL 69 11/16/2022 LDLCHOLCAL 33 02/16/2024 LDLCHOLCAL 67 06/17/2023 LDLCHOLCAL 75 11/16/2022 -continue lifestyle modification -Vascepa 2 grams twice daily started by [facility] 05/22/24 Assessment & Plan (04/06/2024 9:52 AM [...] agreeable with plan to be transported to [facility] via ambulance . Case discussed with provider at [facility] ER Cutaneous skin tags 05/18/2023 03/30/20 24 [...] Encounters Date Type Department Care Team Description 01/09/2025 Refill [facility] MEDICINE [address] [place] [phone] Daisha Crane MD Rheumatoid arthritis involving multiple sites with positive rheumatoid factor ([facility]) 01/08/2025 Refill [facility] MEDICINE [address] [place] [phone] Daisha Crane MD Pain 01/02/2025 Orders Only GENERIC EXTERNAL DATA DEPARTMENT Provider, Generic External Data 12/20/2024 Orders Only [facility] External Provider, [facility] Heart murmur (Primary Dx) 12/15/2024 9:30 AM EST Clinical Support [facility] [address] [place] [address] Loyda Banda, no bake molder right shoulder pain 12/15/2024 Telephone [facility] [address] [place] [phone] Daisha Crane MD May Recalls 12/15/2024 Refill [facility] [address] [place] [address] Loyda Banda RN Pain 12/15/2024 Travel 12/04/2024 Telephone [facility] MEDICINE [address] [place] [address] Daisha Crane MD Referral 11/26/2024 Refill [facility] [address] [place] [address] Cara Whitfield MD Constipation, unspecified constipation type 11/26/2024 Refill [facility] [address] [place] [address] Daisha Crane MD Constipation, unspecified constipation type 11/21/2024 Refill [facility] [address] [place] [address] Daisha Crane MD Simple chronic bronchitis ([facility]) 11/21/2024 Refill [facility] [address] [place] [address] Cara Whitfield MD Pain 11/21/2024 Refill [facility] [address] [place] [address] Daisha Crane MD Pain 11/13/2024 Travel 11/03/2024 Orders Only GENERIC EXTERNAL DATA DEPARTMENT Provider, Generic External Data Ascending aorta dilation ([facility]) (Primary Dx) 10/30/2024 Telephone [facility] [address] [place] [address] Daisha Crane MD 10/27/2024 Refill [facility] [address] [place] [address] Tanika Arenas ANP Dyslipidemia 10/26/2024 Refill [facility] [address] [place] [address] Daisha Crane MD Pain 10/25/2024 Refill [facility] [address] [place] [address] Daisha Crane MD Vitamin D deficiency from Last 3 Months Immunizations Name Administration [...] 01/22/2025 9:00 AM EDT Medication Management [facility] [address] [place] [address] Lisa Liao, PharmD [address] [place] [address] 02/26/2025 11:00 AM EDT Telemedicine [facility] [address] [place], [place] [phone] Loyda Banda, RN [address] [place] [address] 03/07/2025 10:15 AM EDT Office Visit [facility] [address] [place] [address] Daisha Crane MD [address] [place], [place] [phone] Health Maintenance Due Date Last Done Comments [...] 02/01/2007, Additional history exists Hepatitis A Vaccines Aged Out 12/02/2009, 05/20/20 09 No longer eligible based on patient's age to complete this topic Hepatitis B Vaccines Completed 12/02/2009, 08/08/2009, 05/20/2009 [...] 6.9( 10:06 AM EST) No Lisa Anguiano, Nidia Procedures Procedure Name Priority Date/Time Associated Diagnosis Comments CTA CHEST W AND WO CONTRAST Routine 01/02/2025 9:04 AM EST POCT CREATININE GFR Routine 01/02/2025 9 :03 AM EST STRESS TEST WITH MYOCARDIAL PERFUSION Routine 12/20/2024 8:16 AM EST POCT SAUNDRA-14 URINE DRUG SCREEN Routine 12/15/2024 10:01 AM EST Chronic right shoulder pain US ABDOMINAL AORTIC ANEURYSM Routine 12/01/2024 8:37 AM EST SED RATE BY MODIFIED WESTERGREN Routine 11/03/2024 8:55 AM EST CBC WITH AUTO DIFFERENTIAL Routine 11/03/2024 8:55 AM EST LIPID PANEL, STANDARD Routine 10/09/2024 8:05 AM EST Dyslipidemia ALBUMIN, RANDOM URINE W/CREATININE Routine 09/15/2024 8:03 AM EST Type 2 diabetes mellitus without complication, unspecified whether custodial insulin use (CMS/HCC) POCT GLYCATED HEMOGLOBIN, TOTAL Routine 09/04/2024 10:06 AM EST Type 2 diabetes mellitus without complication, unspecified whether custodial insulin use (CMS/HCC) HEPATITIS PANEL, GENERAL Routine 11/11/2023 10:39 AM EST HM COLONOSCOPY Routine 12/21/2020 from Last 3 Months or Most Recently Relevant to Health Maintenance Results * CTA Chest w/ and w/o Contrast (01/02/2025 9:04 AM EST) Anatomical Region Laterality Modality Body, Chest Computed Tomogra phy 01/02/2025 9:04 AM EST Narrative 01/02/2025 3:42 PM EST ? [facility] ?[address] ?[place] [address] ? CT Scan Report ? Signed ? Patient: Patrice Jenkins ?MR#: [id number] ?? [id number] ? : 1945 ?Acct:[id number] ? Age/Sex: 79 / M ?ADM Date: 03/04/25 ? Loc: HO.CT ? Attending Dr: Sharon LEWIS ? Ordering Physician: Sharon Guardado ?? Date of Service: 01/02/25 ?? Procedure(s): CT angio chest aorta ?? Accession Number(s): [id number] ? cc: Daisha Crane MD; Sharon Guardado ? Report Number: ?? [id number]: Total DLP = ??151.00 mGy-cm ?? EXAMINATION: ?? CT ANGIOGRAM CHEST ? CLINICAL INFORMATION: ?? Thoracic aortic ectasia. ? COMPARISON: ?? October 08, 2022 ? TECHNIQUE: ?? Multiple axial images were obtained through the chest after the ?? administration of 70 mL of Omnipaque 350 intravenous contrast. ?? Extensive vascular post-processing including two-dimensional and ?? three-dimensional reformatted images were created and reviewed on an ?? independent workstation. ? This CT examination was performed using dose optimization techniques as ?? appropriate, variously including the following: ?? *Automated exposure control ?? *Adjustment of mA and/or kV according to patient size (this includes ?? techniques or standardized protocols for targeted exams where dose is ?? matched to indication/reason for exam; i.e. extremities or head) ?? *Use of iterative reconstruction technique. ?? DLP: 151 mGy centimeter. ? FINDINGS: ?? Limited by patient's motion artifact. ? Ascending thoracic aorta diameter: 4.6 cm. No intimal flap. No IV ?? contrast extravasation. ?? Thoracic aortic arch diameter: 2.3 cm. No intimal flap. No IV contrast ?? extravasation. ?? Descending thoracic aorta diameter: 2.9 cm. No IV contrast ?? extravasation. No intimal flap. ? Mixed plaques extending from the thoracic aortic arch to the descending ?? segment. ?? Calcified plaques in the origin of the great branches. ?? The vertebral arteries are orientating from the subclavian arteries. ? Ancillary findings: ?? Pulmonary patchy groundglass in the periphery of the lower lung lobes ?? likely atelectasis. ?? No consolidation pleural effusion or pneumothorax. No bronchiectasis. ?? No honeycombing. Respiratory where is patent. ?? Calcified plaques in the coronary arteries. ?? No gross pericardial effusion. ?? Cystic lesions both kidneys. Tiny cholelithiasis. ?? Multilevel cervical thoracic spondylosis. ? CT/CT angio chest aorta ?? IMPRESSION: ?? 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 Overall stable. ? Fleischner guidelines were followed. ? Electronically signed by: ??Bishnu Duran MD ??01/02/2025 03:39 PM ?? EST RP ? Dictated By: ?Bishnu uLna MD ? Signed By: ?<Electronically signed by Bishnu Vieyra MD in OV> ? 01/02/25 1539 ? DD/ ? TD/TT: 01/02/25929 ? Disability Liaison Officer: ? Procedure Note Tiffani Garcia - 01/02/[address] [place] [address] [address] Scan Report Signed Patient: Patrice JenkinsMR#: [id number] : 1945cct:[id number] Age/Sex: 79 / MADM Date: 01/02/25 Loc: HO.CT Attending Dr: Sharon LEWIS Ordering Physician: Sharon Guardado Date of Service: 01/02/25 Procedure(s): CT angio chest aorta Accession Number(s): [id number] cc: Daisha Crane MD; Sharon Guardado Report Number: [id number]: Total DLP = 151.00 mGy-cm EXAMINATION: CT ANGIOGRAM CHEST CLINICAL INFORMATION: Thoracic aortic ectasia. COMPARISON: October 08, 2022 TECHNIQUE: Multiple axial images were obtained through the chest after the administration of 70 mL of Omnipaque 350 intravenous contrast. Extensive vascular post-processing including two-dimensional and three-dimensional reformatted images were created and reviewed on an independent workstation. This CT examination was performed using dose optimization techniques as appropriate, variously including the following: *Automated exposure control *Adjustment of mA and/or kV according to patient size (this includes techniques or standardized protocols for targeted exams where dose is matched to indication/reason for exam; i.e. extremities or head) *Use of iterative reconstruction technique. DLP: 151 mGy centimeter. FINDINGS: Limited by patient's motion artifact. Ascending thoracic aorta diameter: 4.6 cm. No intimal flap. No IV contrast extravasation. Thoracic aortic arch diameter: 2.3 cm. No intimal flap. No IV contrast extravasation. Descending thoracic aorta diameter: 2.9 cm. No IV contrast extravasation. No intimal flap. Mixed plaques extending from the thoracic aortic arch to the descending segment. Calcified plaques in the origin of the great branches. The vertebral arteries are orientating from the subclavian arteries. Ancillary findings: Pulmonary patchy groundglass in the periphery of the lower lung lobes likely atelectasis. No consolidation pleural effusion or pneumothorax. No bronchiectasis. No honeycombing. Respiratory where is patent. Calcified plaques in the coronary arteries. No gross pericardial effusion. Cystic lesions both kidneys. Tiny cholelithiasis. Multilevel cervical thoracic spondylosis. 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 Overall stable. Fleischner guidelines were followed. Electronically signed by: Bishnu Duran MD 01/02/2025 03:39 PM EST Dictated By: Bishnu Luna MD Signed By: <Electronically signed by Bishnu Vieyra MDin OV> 01/02/25 1539 DD/ 0904 TD/TT: 01/02/25 09 Disability Liaison Officer: [facility] External Provider IMG CT PROCEDURES Final Result * POCT Creatinine GFR (01/02/2025 9:03 AM EST) POCT Creatinine 0.9 0.5 - 1.4 mg/dL [facility] GFR POC >60 [facility] Comment:Chronic Kidney Disea se: Estimated GFR < 60 mL/min/[id number] Kidney Disease: Estimated GFR < 15 mL/min/1.73m2 01/02/2025 9:03 AM EST 01/02/2025 12:48 PM EST Narrative [facility] - 01/02/2025 12:50 PM EST [id number] us Generic External Data Provider LAB POINT OF CARE TEST DOCKED DEVICE ORDERABLES Final Result [facility] [address] [place] [address] [phone] * Stress test with myocardial perfusion (12/20/2024 8:16 AM EST) 12/20/2024 8:16 AM EST Narrative [facility] - 12/24/2024 2:57 PM EST ? [facility] ?[address] ?[place] [address] ?Nuclear Medicine Report ? Signed ? Patient: Patrice Jenkins ?MR#: [id number] ?? [id number] ? : 1945 ?Acct:[id number] ? Age/Sex: 79 / M ?ADM Date: 12/20/24 ? Loc: HO.CARD ? Attending Dr: Sharon LEWIS ? Ordering Physician: Sharon Guardado ?? Date of Service: 12/20/24 ?? Procedure(s): NM cardiolite stress test ?? Accession Number(s): [id number] ? cc: Daisha Crane MD; Sharon Guardado [...] ??Volodymyr Curran MD ??12/24/2024 02:54 ?? PM [facility] ? Dictated By: ?Volodymyr Curran MD ? Signed By: ?<Electronically signed by Volodymyr Curran MD in OV> ?12/24/24 1454 ? DD/ 0816 ? TD/TT: 12/21/24 1215 ? Disability Liaison Officer: ? Procedure Note Tiffani Garcia - 12/24/2024 [place] [address] Nuclear Medicine Report Signed Patient: Patrice Jenkins#: [id number] : 1945cct:[id number] Age/Sex: 79 / MADM Date: 12/20/24 Loc: [facility] Attending Dr: Sharon LEWIS Ordering Physician: Sharon Guardado Date of Service: 12/20/24 Procedure(s): NM cardiolite stress test Accession Number(s): [id number] cc: Daisha Crane MD; Sharon Guardado Lexiscan [...] 12/24/24 1454 DD/ 0816 TD/TT: 12/21/24 1215 Disability Liaison Officer: us [facility] External Provider CV STRE SS PROCEDURES Final Result [facility] [address] [place] [phone] * POCT SAUNDRA-14 Urine Drug Screen (12/15/2024 10:01 AM EST) Oxycodone Screen, Urine Positive Urine Urine specimen obtained by clean catch procedure / Unknown 12/15/2024 10:01 AM EST Narrative Loyda Banda RN - 12/15/2024 10:01 AM EST .[employer] cup Lot#[id number] Exp. 06/20/26 Internal Pass Control us Daisha Crane MD POINT OF CARE TEST ENTER/E DIT ORDERABLES Final Result * US ABDOMINAL AORTIC ANEURYSM (12/01/2024 8:37 AM EST) Anatomical Region Laterality Modality Abdomen Ultrasound 12/01/2024 8:37 AM EST Narrative 12/01/2024 9:07 AM EST ? [facility] ?[address] ?[place] [address] ? Ultrasound Report ? Signed ? Patient: Patrice Jenkins ?MR#: [id number] ?? [id number] ? : 1945 ?Acct:[id number] ? Age/Sex: 79 / M ?ADM Date: 12/01/24 ? Loc: HO.US ? Attending Dr: Sharon LEWIS ? Ordering Physician: Sharon Guardado ?? Date of Service: 12/01/24 ?? Procedure(s): US abdominal aortic aneurysm ?? Accession Number(s): [id number] ? cc: Daisha Crane MD; Sharon Guardado [...] by Connor Higuera MD in OV> ?12/01/24 09 ? DD/ 0837 ? TD/TT: 12/01/24 0842 ? Disability Liaison Officer: ? Procedure Note Donfrancoter, Image - 12/01/[address] [address] Ultrasound Report Signed Patient: Patrice JenkinsMR#: [id number] : [id number] Age/Sex: 79 / MADM Date: 12/01/24 Loc: HO.US Attending Dr: Sharon LEWIS Ordering Physician: Sharon Guardado Date of Service: 12/01/24 Procedure(s): US abdominal aortic aneurysm Accession Number(s): [id number] cc: Daisha Crane MD; Sharon Guardado EXAMINATION: [...] Higuera MD in OV> 12/01/24 0904 DD/ 0837 TD/TT: 12/01/24 0842 Disability Liaison Officer: us [facility] External Provider IMG US PROCEDURES Final Result * (ABNORMAL) CBC auto differential (11/03/2024 8:55 AM EST) White Blood Count 9.4 4.8 - 10.8 X10*3/uL [facility] Red Blood Count 4.09(L) 4.60 - 5.80 X10*6/uL [facility] Hemoglobin 10.7(L) 14.0 - 18.0 g/dl [facility] Hematocrit 34.8(L) 42.0 - 52.0 % [facility] Mean Corpuscular Volume 85.1 80.0 - 98.0 fL [facility] Mean Corpuscular Hemoglobin 26.2(L) 27.0 - 33.0 pg [facility] Mean Corpuscular HGB Conc 30.7(L) 31.0 - 36.0 g/dl [facility] Red Cell Distribution Width 19.5(H) 11.0 - 16.0 % [facility] Platelet Count 188 160 - 400 X10*3/uL [facility] Mean Platelet Volume 9.7 9.4 - 12.4 fL [facility] Neutrophils Percent Auto 50.3 45 - 73 % [facility] Imm Gran Pct Auto 0.3 0.0 - 0.4 % [facility] Lymphocytes Percent Auto 37.2 20 - 40 % [facility] Monocytes Percent Auto 9.0 2 - 11 % [facility] Eosinophils Percent Auto 2.7 0 - 4 % [facility] Basophils Percent Auto 0.5 0 - 2 % [facility] NRBC Pct Auto 0.0 0.0 - 0.2 /100WBC [facility] Neutrophils Absolute Auto 4.7 2.0 - 8.3 x10*3/uL [facility] Imm Gran Abs Auto 0.03 0.00 - 0.03 X10*3/uL [facility] Lymphocytes Absolute Auto 3.5 1.2 - 4.9 X10*3/uL [facility] Monocytes Absolute Auto 0.9 0.1 - 1.2 X10*3/uL [facility] Eosinophils Absolute Auto 0.3 0.0 - 0.4 X10*3/uL [facility] Basophils Absolute Auto 0.1 0.0 - 0.2 X10*3/uL [facility] NRBC Abs Auto 0.000 0.0 - 0.012 X10*3/uL [facility] 11/03/2024 8:55 AM EST 11/03/2024 8:55 AM EST Generic External Data Provider LAB BLOOD ORDERAB LES Final Result Performing Organization Address City/[facility] Co de Phone Number [facility] [address] [place] [phone] * Sed Rate by Modified Adamaris (11/03/2024 8:55 AM EST) Erythrocyte Sedimentation Rate 2 0 - 15 MM/HR [facility] Comment:Patients with polycy themia and many hemoglobin abnormalitiesmay have depressed sed rates whereas patients with anemiamay have elevated sed rates. 11/03/2024 8:55 AM EST 11/03/2024 8:55 AM EST Generic External Data Provider LAB BLOOD ORDERAB LES Final Result Performing Organization Address [facility] Co de Phone Number [facility] [address] [place] [phone] * (ABNORMAL) Lipid Panel, Standard (10/09/2024 8:05 AM EST) Triglycerides 122 <150 mg/dL [facility] Comment:Desirable Triglyceri de: less than 150 mg/dLBorderline High Triglyceride 150-199 mg/dLHigh Triglyceride: 200-499 mg/dLVery High Triglyceride: greater than or equal to 5OO mg/dL Cholesterol 104 <200 mg/dL [facility] Comment:Desirable Cholestero l: less than 200 mg/dLBorderline High Cholesterol: 200-239 mg/dLHigh Cholesterol: greater than 239 mg/dL LDL Cholesterol Calculated 43 <100 mg/dL [facility] Comment:Desirable LDL: less than 100 mg/dLNear Optimal/Above Optimal LDL: 110- 129 mg/dLBorderline High LDL: 130-159 mg/dLHigh LDL: 160-189 mg/dLVery High LDL: greater than or equal to 190 mg/dL HDL Cholesterol 37(L) >40 mg/dL [facility] Comment:Desirable HDL: great er than 40 mg/dL Note: This HDL assay may give artificially low results in patients with liver disease. Blood Venous blood specimen / Unknown 10/09/2024 8:05 AM EST 10/09/2024 11:50 AM EST Daisha Crane MD LAB BLOOD ORDERABLES Final Result Performing Organization Address [facility] Co de Phone Number [facility] [address] [place] [phone] * Albumin, Random Urine W/Creatinine (09/15/2024 8:03 AM EST) Creatinine, Urine 107.16 mg/dL [facility] Microalbumin Urine 20.0 mg/L [facility] Microalbum Creatinine Ratio Ur 18.6 <30 ug/mg cr [facility] Comment:Albumin/Creatinine R atio Reference Ranges: Normal: < 30 ug/mg creatinine Microalbuminuria: 30 - 300 ug/mg creatinineClinical Albuminuria: > 300 ug/mg creatinine Urine 09/15/2024 8:03 AM EST 09/15/2024 11:09 AM EST Daisha Crane MD LAB URINE ORDERABLES Final Result Performing Organization Address [facility] Co de Phone Number [facility] [address] [place] [phone] * (ABNORMAL) POCT HGB A1C (09/04/2024 10:06 AM EST) Hemoglobin A1C 6.9(A) 4.0 - 6.0 % QC Media Lot # [id number] Lot# Expiration Date [id number] Blood 09/04/2024 10:0 6 AM EST Daisha Crane MD POINT OF CARE TEST ENTER/E DIT ORDERABLES Final Result * Hepatitis Panel, General (11/11/2023 10:39 AM EST) Hepatitis A IgM Nonreactive Nonreactive [facility] Comment:IgM antibodies to WAGONER V not detected; does not exclude earlyacute or recovered HAV infection. ~Hepatitis B Surface Antibody NONREACTIVE Nonreactive [facility] Comment:Nonreactive: < 8.00 mIU/mL Hepatitis B Core Antibody Nonreactive Nonreactive [facility] Hepatitis C Antibody Nonreactive Nonreactive [facility] Comment:Antibodies to HCV no t detected; does not exclude early acuteHCV infection. Hepatitis B Surface Ag Negative Negative [facility] 11/11/2023 10:3 9 AM EST 11/11/2023 10:39 AM EST Generic External Data Provider LAB BLOOD ORDERAB LES Final Result Performing Organization Address City/State/[facility] Co de Phone Number [facility] [address] [place] [phone] * Colonoscopy (12/21/2020) Colonoscopy tubular adenoma with Dr. Rodríguez Historical Provider HEALTH MAINTENANCE Final Result from Last 3 Months or Most Recently Relevant to Health Maintenance Insurance [facility] [place] Advance Directives Documents on File Type Date Recorded Patient Steel Rule Inspector Expl anation Advance Directives and Living Will 04/06/2024 Health Care Proxy 04/06/24 Care Teams Sr. Payroll Manager Relationship Specialty Start Date End Date Angelina, MD Daisha [address] [place] [address] PCP - General Family Medicine 11/01/18 Lisa Laio, GenevaD [address] [place] [address] Pharmacist Internal Medicine 04/06/23 Alissa Santillan MD [address] [place] [address] Rheumatology 11/09/24 Sharon Guardado [address]rd [place] [address] Cardiology 11/13/24 Cedric Lujan MD [address] [place] [address] Orthopaedic Surgery 11/23/24
--- OUTSIDE RECORDS SUMMARY | 2025-01-11 09:28 | XMS_ITS | Encounter Summary ---
Author Organization [employer] Address [address] [facility] 7t [place] [address] Care Team Providers Care Airline Attendant Name Role Phone Daisha Crane MD Primary Care Provider +1- [phone] Lisa Liao PharmD Unavailable Alissa Santillan MD Unavailable Sharon Guardado Unavailable Cedric Lujan MD Unavailable Encounter Details Date Type Department Care Team (Late st Contact Info) Description 10/30/2024 Telephone [facility] [address] [place], [place] [phone] Daisha Crane MD [address] [place], [place] [phone] Social History Tobacco Use Types Packs/Day Years [...] Description 01/22/2025 9:00 AM EDT Medication Management [facility] [address] [place] [address] Lisa Liao PharmD [address] [place] [address] 02/26/2025 11:00 AM EDT Telemedicine [facility] [address] [place] [address] Loyda Banda, RN [address] [place] [address] 03/07/2025 10:15 AM EDT Office Visit [facility] [address] [place] [address] Daisha Crane MD [address] [place] [address] documented as of this encounter Goals Goal [...] documented as of this encounter Care Teams Airline Attendant Relationship Specialty Start Date End Date Daisha Crane MD [address] [place] [address] PCP - General Family Medicine 11/01/18 Lisa Liao, PharmD [address] [place] [address] Pharmacist Internal Medicine 04/06/23 Alissa Santillan MD [address] [place] [address] Rheumatology 11/09/24 Sharon Guardado [address] 3rd [place] [address] Cardiology 11/13/24 Cedric Lujan MD [address] [place] [address] Orthopaedic Surgery 11/23/24 documented as of this encounter
--- OUTSIDE RECORDS SUMMARY | 2025-01-11 09:28 | XMS_ITS | Encounter Summary ---
Author Organization [employer] [facility] Address [address] [facility] 7t [place] [address] Care Team Providers Care Qualified Craft Worker Electrician Name Role Phone Daisha Crane MD Primary Care Provider +- [phone] Lisa Liao PharmD Unavailable [phone]- [phone] Alissa Santillan MD Unavailable Sharon Guardado Unavailable Cedric Lujan MD Unavailable Encounter Details Date Type Department Care Team (Late Contact Info) Description 12/16/2022 Orders Only [facility] [address] [place], [place] [phone] Jenn Polk LPN Social History Tobacco Use [...] 01/22/2025 9:00 AM EDT Medication Management [facility] [address] [place] [address] Lisa Liao, GenevaD [address] [place] [address] 02/26/2025 11:00 AM EDT Telemedicine [facility] [address] [place] [address] Loyda Banda, SO [address] [place] [address] 03/07/2025 10:15 AM EDT Office Visit [facility] [address] [place] [address] Daisha Crane MD [address] [place] [address] documented as of this encounter Visit Diagnoses Not on filedocumented in this encounter Additional Health Concerns Assessment Noted Time PHQ-9 Depression Total Score: 0 11/23/19 10:39 AM EST documented as of this encounter Care Teams Qualified Craft Worker Electrician Relationship Specialty Start Date End Date Daisha Crane MD [address] [place] [address] PCP - General Family Medicine 11/01/18 Lisa Liao, PharmD [address] [place] [address] Pharmacist Internal Medicine 04/06/23 Alissa Santillan MD [address] [place] [address] Rheumatology 11/09/24 Sharon Guardado [address] [place] [address] Cardiology 11/13/24 Cedric Lujan MD [address] [place] [address] Orthopaedic Surgery 11/23/24 documented as of this encounter
--- OUTSIDE RECORDS SUMMARY | 2025-01-11 09:28 | XMS_ITS | Encounter Summary ---
Author Organization [employer] [facility] Address [address] [facility] 7t [place] [address] Care Team Providers Care Slip Caster Name Role Phone Daisha Crane MD Primary Care Provider +1- [phone] Lisa Liao PharmD Unavailable Alissa Santillan MD Unavailable Sharon Guardado Unavailable Cedric Lujan MD Unavailable Encounter Details Date Type Department Care Team (Late st Contact Info) Description 11/19/2022 Orders Only [facility] [address] [place], [place] [phone] Radha Johnson LPN Social History Tobacco Use [...] Description 01/22/2025 9:00 AM EDT Medication Management [facility] [address] [place], [place] [phone] Lisa Liao, PharmD 230 [place], [place] [phone] 02/26/2025 11:00 AM EDT Telemedicine [facility] [address] [place] [address] Loyda Banda, RN 505 [place] [address] 03/07/2025 10:15 AM EDT Office Visit [facility] [address] [place] [address] Daisha Crane MD [address] [place] [address] documented as of this encounter Visit Diagnoses Not on filedocumented in this encounter Care Teams Slip Caster Relationship Specialty Start Date End Date Daisha Crane MD [address] [place] [address] PCP - General Family Medicine 11/01/18 Lisa Liao, PharmD [address] [place] [address] Pharmacist Internal Medicine 04/06/23 Alissa Santillan MD [address] [place] [address] Rheumatology 11/09/24 Sharon Guardado [address]rd [place] [address] Cardiology 11/13/24 Cedric Lujan MD [address] [place] [address] Orthopaedic Surgery 11/23/24 documented as of this encounter
--- OUTSIDE RECORDS SUMMARY | 2025-01-11 09:28 | XMS_ITS | Encounter Summary ---
Author Organization [facility] Address [address] [facility] 7t [place] [address] Care Team Providers Care Pediatric Nurse Name Role Phone Daisha Crane MD Primary Care Provider +1- [phone] Lisa Liao PharmD Unavailable [phone] Alissa Santillan MD Unavailable Sharon Guardado Unavailable Cedric Lujan MD Unavailable Encounter Details Date Type Department Care Team (Late st Contact Info) Description 10/14/2022 Orders Only [facility] [address] [place], [place] [phone] Daisha Crane MD [address] [place], [place] [phone] Social History Tobacco Use Types Packs/Day Years [...] Description 01/22/2025 9:00 AM EDT Medication Management [facility] [address] [place] [address] Lisa Liao, PharmD 230 [place] [address] 02/26/2025 11:00 AM EDT Telemedicine [facility]S [address] [place] [address] Loyda Banda, SO [address] [place] [address] 03/07/2025 10:15 AM EDT Office Visit [facility] [address] [place] [address] Daisha Crane MD [address] [place] [address] documented as of this encounter Visit Diagnoses Not on filedocumented in this encounter Care Teams Pediatric Nurse Relationship Specialty Start Date End Date Daisha Crane MD [address] [place] [address] PCP - General Family Medicine 11/01/18 Lisa Liao, PharmD [address] [place] [address] Pharmacist Internal Medicine 04/06/23 Alissa Santillan MD [address] [place] [address] Rheumatology 11/09/24 Sharon Guardado [address] 3rd [place] [address] Cardiology 11/13/24 Cedric Lujan MD [address] [place] [address] Orthopaedic Surgery 11/23/24 documented as of this encounter
--- OUTSIDE RECORDS SUMMARY | 2025-01-11 09:28 | XMS_ITS | Encounter Summary ---
Author Organization [employer] Address [address] [facility] 7t [place] [address] Care Team Providers Care Certified Substance Abuse Counselor Name Role Phone Daisha Crane MD Primary Care Provider +- [phone] Lisa Liao PharmD Unavailable Alissa Santillan MD Unavailable Sharon Guardado Unavailable Cedric Lujan MD Unavailable Reason for Visit * Reason Comments Med Refill Encounter Details Date Type Department Care Team (Late st Contact Info) Description 02/06/2024 Refill [facility] MED[facility] 230 [place], [place] [phone] Lisa Liao, PharmD [address] [place] [address] Social History Tobacco Use Types Packs/Day Years [...] Description 01/22/2025 9:00 AM EDT Medication Management [facility] MED[facility] [address] [place] [address] Lisa Liao PharmD [address] [place] [address] 02/26/2025 11:00 AM EDT Telemedicine [facility] MED [facility] PEDS 505 [place] [address] Loyda Banda, SO 505 [place] [address] 03/07/2025 10:15 AM EDT Office Visit [facility] [address] [place] [address] Daisha Crane MD [address] [place] [address] documented as of this encounter Goals Goal [...] documented as of this encounter Care Teams Certified Substance Abuse Counselor Relationship Specialty Start Date End Date Daisha Crane MD 230 [place] [address] PCP - General Family Medicine 11/01/18 Lisa Liao PharmD [address] [place] [address] Pharmacist Internal Medicine 04/06/23 Alissa Santillan MD [address] [place] [address] Rheumatology 11/09/24 Sharon Guardado [address] 3rd [place] [address] Cardiology 11/13/24 Cedric Lujan MD [address] [place] [address] Orthopaedic Surgery 11/23/24 documented as of this encounter
--- OUTSIDE RECORDS SUMMARY | 2025-01-11 09:28 | XMS_ITS | Patient Health Record ---
Author Organization [facility] Address [address] [place] [address] Care Team Providers Care Template Maker Name Role Phone Daisha Crane MD Primary Care Provider Og Jacobs Jr Unavailable [phone] Allergies Allergen (clinical drug ingredient) Drug/Non Drug Allergy documented on EMR Reaction Allergy Type Onset Date Status lisinopril Lisinopril Unknown Drug Allergy Activ e Reason For Referral No Information Medications Medication SIG (Take, Route, Frequency, Duration) Notes [...] Acti ve Hydroxychloroquine Sulfate Active Melatonin Active Immunizations Vaccine Route Administration Date Status Comme nts Influenza Unknown 09/18/2020 Administered Social History Tobacco Use: Social History Observation Description Date Details (start date - stop date) Current Smoker NA - NA Tobacco Use/Smoking Question Answer Notes Patient is [...] ast year? No Points 0 Interpretation Negative Problems Problem Type SNOMED Code ICD Code Onset Dates Problem Status W/U Status Risk Notes Problem 495766841 Colon cancer screening (Z12.11) Active confirmed Problem 412950921 Personal history of colonic polyps (Z86.010) Active confirmed Problem 591424893 Gastroesophageal reflux disease without esophagitis (K21.9) Active confirmed Plan Of Treatment Future Test Test Name Order Date COLONOSCOPY 11/06/2015 COLONOSCOPY 01/13/2021 Insurance Providers Payer Name Payer Address Payer Phone Subscriber Number Group Number Insured Name Patient Relationship to Insured Coverage Start Date Coverage End Date [facility] [address] [place] [address] [id number] CORA KELLY Self - patient is the insured Medical (General) History Medical History History ICD Code 12/15/2006 Colonoscopy 02/14/2010 Colonoscopy Colon Polyps/Tubular adenomas Hypertension Hyperlipidemia Asthma Low back pain Reflux rheumatoid arthritis Surgical History Surgery Date(Month/Year) back surgery prostatectomy for prostate cancer umbilical hernia repair
--- OUTSIDE RECORDS SUMMARY | 2025-01-11 09:28 | XMS_ITS | Encounter Summary ---
Author Organization [facility] Address [address] [facility] 7t [place] [address] Care Team Providers Care Open Die Inspector Name Role Phone Daisha Crane MD Primary Care Provider +1- [phone] Lisa Liao PharmD Unavailable [phone] Alissa Santillan MD Unavailable Sharon Guardado Unavailable Cedric Lujan MD Unavailable Encounter Details Date Type Department Care Team (Late st Contact Info) Description 10/22/2022 Orders Only [facility] [address] [place], [place] [phone] Radha Johnson LPN Social History Tobacco Use [...] Description 01/22/2025 9:00 AM EDT Medication Management [facility] [address] [place], [place] [phone] Lisa Liao, PharmD 230 [place], [place] [phone] 02/26/2025 11:00 AM EDT Telemedicine [facility]EDS 505 [place] [address] Loyda Banda, RN 505 [place] [address] 03/07/2025 10:15 AM EDT Office Visit [facility] 230 [place] [address] Daisha Crane MD 230 [place] [address] documented as of this encounter Visit Diagnoses Not on filedocumented in this encounter Care Teams Open Die Inspector Relationship Specialty Start Date End Date Daisha Crane MD [address] [place] [address] PCP - General Family Medicine 11/01/18 Lisa Liao, PharmD [address] [place] [address] Pharmacist Internal Medicine 04/06/23 Alissa Santillan MD [address] [place] [address] Rheumatology 11/09/24 Sharon Guardado [address] 3rd [place] [address] Cardiology 11/13/24 Cedric Lujan MD [address] [place] [address] Orthopaedic Surgery 11/23/24 documented as of this encounter
--- OUTSIDE RECORDS SUMMARY | 2025-01-11 09:28 | XMS_ITS | Encounter Summary ---
Author Organization [employer] [facility] Address [address] [facility] 7t [place] [address] Care Team Providers Care Precision Farming Specialist Name Role Phone Daisha Crane MD Primary Care Provider + [phone] Lisa Liao PharmD Unavailable Alissa Santillan MD Unavailable Sharon Guardado Unavailable Cedric Lujan MD Unavailable Encounter Details Date Type Department Care Team (Latest Contact Info) Description 03/10/2019 Abstract [facility] CONVERSION[facility] Dental, Provider, DDS Social History [...] Description 01/22/2025 9:00 AM EDT Medication Management [facility] MED[facility] [address] [place], [place] [phone] Lisa Liao, PharmD 230 [place], [place] [phone] 02/26/2025 11:00 AM EDT Telemedicine [facility] PEDS [address] [place], [place] [phone] Loyda Banda, RN 505 [place] [address] 03/07/2025 10:15 AM EDT Office Visit [facility] [address] [place] [address] Daisha Crane MD [address] [place] [address] documented as of this encounter Visit Diagnoses Not on filedocumented in this encounter Care Teams Precision Farming Specialist Relationship Specialty Start Date End Date Daisha Crane MD [address] [place] [address] PCP - General Family Medicine 11/01/18 Lisa Liao, PharmD [address] [place] [address] Pharmacist Internal Medicine 04/06/23 Alissa Santillan MD [address] [place] [address] Rheumatology 11/09/24 Sharon Guardado [address]rd [place] [address] Cardiology 11/13/24 Cedric Lujan MD [address] [place] [address] Orthopaedic Surgery 11/23/24 documented as of this encounter
--- OUTSIDE RECORDS SUMMARY | 2025-01-11 09:28 | XMS_ITS | Encounter Summary ---
Author Organization [employer] Address [address] [facility] 7t [place] [address] Care Team Providers Care Die Storage Clerk Name Role Phone Daisha Crane MD Primary Care Provider + [phone] Lisa Liao PharmD Unavailable [phone]- [phone] Alissa Santillan MD Unavailable Sharon Guardado Unavailable Cedric Lujan MD Unavailable Reason for Visit * Reason Comments Med Refill Encounter Details Date Type Department Care Team (Late st Contact Info) Description 02/07/2024 Refill [facility] 230 [place], [place] [phone] Tanika Arenas ANP 230 [place], [place] [phone] Dyslipidemia Social History Tobacco Use Types Packs/Day [...] Description 01/22/2025 9:00 AM EDT Medication Management [facility] MED[facility] [address] [place] [address] Lisa Liao PharmD [address] [place] [address] 02/26/2025 11:00 AM EDT Telemedicine [facility] PEDS [address] [place] [address] Loyda Banda, RN 505 [place] [address] 03/07/2025 10:15 AM EDT Office Visit [facility] [address] [place] [address] Daisha Crane MD 230 [place] [address] documented as of this encounter Goals Goal [...] documented as of this encounter Care Teams Die Storage Clerk Relationship Specialty Start Date End Date Daisha Crane MD [address] [place] [address] PCP - General Family Medicine 11/01/18 Lisa Liao, GenevaD [address] [place] [address] Pharmacist Internal Medicine 04/06/23 Alissa Santillan MD [address] [place] [address] Rheumatology 11/09/24 Sharon Guardado [address] 3rd [place] [address] Cardiology 11/13/24 Cedric Lujan MD [address] [place] [address] Orthopaedic Surgery 11/23/24 documented as of this encounter
--- OUTSIDE RECORDS SUMMARY | 2025-01-11 09:28 | XMS_ITS | Encounter Summary ---
Author Organization [employer] [facility] Address 75 [facility] 7t [place] [address] Care Team Providers Care It Technician Name Role Phone Daisha Crane MD Primary Care Provider +1- [phone] Lisa Liao PharmD Unavailable Alissa Santillan MD Unavailable Sharon Guardado Unavailable Cedric Lujan MD Unavailable Encounter Details Date Type Department Care Team (Late st Contact Info) Description 12/08/2022 Abstract [facility] MEDICINE 230 [place], [place] [phone] Daisha Crane MD 230 [place], [place] [phone] Social History Tobacco Use Types Packs/Day Years [...] EDT Medication Management [facility] [address] [place] [address] Lisa Liao, PharmAj 230 [place] [address] 02/26/2025 11:00 AM EDT Telemedicine [facility]EDS 505 [place], [place] [phone] Loyda Banda, SO 505 [place] [address] 03/07/2025 10:15 AM EDT Office Visit [facility] [address] [place] [address] Daisha Crane MD [address] [place] [address] documented as of this encounter Procedures Procedure [...] documented as of this encounter Care Teams It Technician Relationship Specialty Start Date End Date Daisha Crane MD [address] [place] [address] PCP - General Family Medicine 11/01/18 Lisa Liao, PharmD [address] [place] [address] Pharmacist Internal Medicine 04/06/23 Alissa Santillan MD [address] [place] [address] Rheumatology 11/09/24 Sharon Guardado [address] 3rd Floor [place] [address] Cardiology 11/13/24 Cedric Lujan MD [address] [place] [address] Orthopaedic Surgery 11/23/24 documented as of this encounter
--- OUTSIDE RECORDS SUMMARY | 2025-01-11 09:29 | XMS_ITS | Encounter Summary ---
Author Organization [employer] Address 75 [facility] 7t [place] [address] Care Team Providers Care Shell Reprint Operator Name Role Phone Daisha Crane MD Primary Care Provider +- [phone] Lisa Liao PharmD Unavailable +1- [phone] Alissa Santillan MD Unavailable Sharon Guardado Unavailable Cedric Lujan MD Unavailable Encounter Details Date Type Department Care Team (Late st Contact Info) Description 11/18/2023 Telephone [facility] MEDICINE 230 [place], [place] [phone] Daisha Crane MD 230 [place], [place] [phone] Social History Tobacco Use Types Packs/Day Years [...] Description 01/22/2025 9:00 AM EDT Medication Management [facility] MEDICINE [address] [place] [address] Lisa Liao PharmD [address] [place] [address] 02/26/2025 11:00 AM EDT Telemedicine [facility] MED & PEDS 505 [place], [place] [phone] Loyda Banda, SO 505 [place] [address] 03/07/2025 10:15 AM EDT Office Visit [facility] MED[facility]INE [address] [place] [address] Daisha Crane MD 230 [place] [address] documented as of this encounter Goals Goal [...] documented as of this encounter Care Teams Shell Reprint Operator Relationship Specialty Start Date End Date Daisha Crane MD 230 [place] [address] PCP - General Family Medicine 11/01/18 Lisa Liao, PharmD 230 [place] [address] Pharmacist Internal Medicine 04/06/23 Alissa Santillan MD [address] [place] [address] Rheumatology 11/09/24 Sharon Guardado [address] 3rd [place] [address] Cardiology 11/13/24 Cedric Lujan MD [address] [place] [address] Orthopaedic Surgery 11/23/24 documented as of this encounter
--- OUTSIDE RECORDS SUMMARY | 2025-01-11 09:29 | XMS_ITS | Encounter Summary ---
Author Organization [employer] Address 75 [facility] 7t [place] [address] Care Team Providers Care Tube Laser Operator Name Role Phone Daisha Crane MD Primary Care Provider +1- [phone] Lisa Liao PharmD Unavailable +1- [phone] Alissa Santillan MD Unavailable Sharon Guardado Unavailable Cedric Lujan MD Unavailable Reason for Visit * Reason Comments controlled substance treatment Encounter Details Date Type Department Care Team (Latest Contact Info) Description 12/15/2024 9:30 AM EST Clinical Support [facility] MEDICINE 230 [place] [address] Loyda Banda, SO 505 [place], [place] [phone] Chronic right shoulder pain Social History Tobacco [...] RN - 12/15/2024 9:30 AM EST S: MAKE UP ARRANGER [place]. Prescribed Oxycodone 5mg PO q8h PRN. [...] No questions/ concerns at this time. O: SHIRT SORTER verified today. Rx last filled 11/22/24. Pill [...] positive for OXY only, as expected. 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 P: Patient to continue taking medication only as prescribed; Next MAKE UP ARRANGER RV appointment scheduled for 02/26/25 @ 11am. Appt reminder given. F/U sooner PRN. Patient verbalized understanding and agreed to plan. documented in this encounter Plan of Treatment Upcoming Encounters Date Type Department Care Team (Late st Contact Info) Description 01/22/2025 9:00 AM EDT Medication Management [facility] MEDICINE [address] [place] [address] Lisa Liao, PharmD 230 [place] [address] 02/26/2025 11:00 AM EDT Telemedicine [facility] MED & PEDS 505 [place], [place] [phone] Loyda Banda RN 505 [place], [place] [phone] 03/07/2025 10:15 AM EDT Office Visit [facility] MEDICINE 230 [place] [address] Daisha Crane MD 230 [place], [place] [phone] documented as of this encounter Goals Goal [...] - 12/15/2024 10:01 AM EST .UTOX cup Lot#[id number] Exp. 06/20/26 Internal Pass Control Daisha Crane MD POINT OF CARE TEST ENTER/E DIT ORDERABLES Final Result documented in this encounter Visit Diagnoses Diagnosis Chronic right shoulder pain Pain in joint, shoulder region documented in this encounter Additional Health Concerns Assessment Noted Time PHQ-9 Depression Total Score: 0 04/06/20 24 9:11 AM EDT documented as of this encounter Care Teams Tube Laser Operator Relationship Specialty Start Date End Date Daisha Crane MD 230 [place] [address] PCP - General Family Medicine 11/01/18 Lisa Liao, PharmD [address] [place] [address] Pharmacist Internal Medicine 04/06/23 Alissa Santillan MD [address] [place] [address] Rheumatology 11/09/24 Sharon Guardado [address] 3rd [place] [address] Cardiology 11/13/24 Cedric Lujan MD [address] [place] [address] Orthopaedic Surgery 11/23/24 documented as of this encounter
--- OUTSIDE RECORDS SUMMARY | 2025-01-11 09:29 | XMS_ITS | Encounter Summary ---
Author Organization [employer] Address 75 [facility] 7t [place] [address] Care Team Providers Care Reed Cleaner Name Role Phone Daisha Crane MD Primary Care Provider +- [phone] Lisa Liao PharmD Unavailable Alissa Santillan MD Unavailable Sharon Guardado Unavailable Cedric Lujan MD Unavailable Reason for Visit * Reason Onset Date Comments Med Refill 11/24/2023 Encounter Details Date Type Department Care Team (Late st Contact Info) Description 11/24/2023 Telephone [facility] MEDICINE 230 [place], [place] [phone] Daisha Crane MD 230 [place], [place] [phone] Med Refill Social History Tobacco Use Types [...] immediate release tablet To be sent to: [facility] - [place], [place] - [address] [place] [address] documented in this encounter Plan of Treatment Upcoming Encounters Date Type Department Care Team ([facility] st Contact Info) Description 01/22/2025 9:00 AM EDT Medication Management [facility] MEDICINE 230 [place] [address] Lisa Liao, PharmD 230 [place] [address] 02/26/2025 11:00 AM EDT Telemedicine [facility] CH[facility] MED & PEDS 505 [place] [address] Loyda Banda, SO 505 [place] [address] 03/07/2025 10:15 AM EDT Office Visit [facility] MEDICINE 230 [place] [address] Daisha Crane MD 230 [place] [address] documented as of this encounter Goals Goal [...] documented as of this encounter Care Teams Reed Cleaner Relationship Specialty Start Date End Date Daisha Crane MD 230 [place] [address] PCP - General Family Medicine 11/01/18 Lisa Liao, PharmD 230 [place] [address] Pharmacist Internal Medicine 04/06/23 Alissa Santillan MD [address] [place] [address] Rheumatology 11/09/24 Sharon Guardado [address] 3rd [place] [address] Cardiology 11/13/24 Cedric Lujan MD [address] [place] [address] Orthopaedic Surgery 11/23/24 documented as of this encounter
--- OUTSIDE RECORDS SUMMARY | 2025-01-11 09:29 | XMS_ITS | Encounter Summary ---
Author Organization [employer] [facility] Address 75 [facility] 7t [place] [address] Care Team Providers Care Oil Dispenser Name Role Phone Daisha Crane MD Primary Care Provider +1- [phone] Lisa Liao PharmD Unavailable Alissa Santillan MD Unavailable Sharon Guardado Unavailable Cedric Lujan MD Unavailable Reason for Visit * Reason Onset Date Comments Med Refill 06/07/2023 Encounter Details Date Type Department Care Team (Late st Contact Info) Description 06/07/2023 Telephone [facility] MEDICINE 230 [place], [place] [phone] Hiram Pal[place] MD 230 [place], [place] [phone] Med Refill Social History Tobacco Use Types [...] MG immediate release tablet Please sent to [facility] - [place], [place] - [address] [place] [address] documented in this encounter Plan of Treatment Upcoming Encounters Date Type Department Care Team (Late st Contact Info) Description 01/22/2025 9:00 AM EDT Medication Management [facility] MEDICINE [address] [place] [address] Lisa Liao PharmD [address] [place] [address] 02/26/2025 11:00 AM EDT Telemedicine [facility] MED & PEDS 505 [place] [address] Loyda Banda RN 505 [place] [address] 03/07/2025 10:15 AM EDT Office Visit [facility] [address] [place] [address] Daisha Crane MD [address] [place] [address] documented as of this encounter Goals Goal [...] documented as of this encounter Care Teams Oil Dispenser Relationship Specialty Start Date End Date Daisha Crane MD [address] [place] [address] PCP - General Family Medicine 11/01/18 Lisa Liao, PharmD 230 [place] [address] Pharmacist Internal Medicine 04/06/23 Alissa Santillan MD [address] [place] [address] Rheumatology 11/09/24 Sharon Guardado [address] 3rd [place] [address] Cardiology 11/13/24 Cedric Lujan MD [address] [place] [address] Orthopaedic Surgery 11/23/24 documented as of this encounter
--- OUTSIDE RECORDS SUMMARY | 2025-01-11 09:29 | XMS_ITS | Encounter Summary ---
Author Organization [employer] Address 75 [facility] 7t [place] [address] Care Team Providers Care Clean Energy Policy Analyst Name Role Phone Daisha Crane MD Primary Care Provider +1- [phone] Lisa Liao PharmD Unavailable +1- [phone] Alissa Santillan MD Unavailable Sharon Guardado Unavailable Cedric Lujan MD Unavailable Encounter Details Date Type Department Care Team (Late st Contact Info) Description 12/20/2024 Orders Only [facility] External Provider, [facility] Heart murmur (Primary Dx) Social [...] 01/22/2025 9:00 AM EDT Medication Management [facility] [address] [place] [address] Lisa Liao PharmD [address] [place] [address] 02/26/2025 11:00 AM EDT Telemedicine [facility] 505 [place] [address] Loyda Banda, SO 505 [place] [address] 03/07/2025 10:15 AM EDT Office Visit [facility] [address] [place] [address] Daisha Crane MD 230 [place] [address] documented as of this encounter Goals Goal [...] AM EST) 12/20/2024 8:16 AM EST Narrative [facility] IMAGING - 12/24/2024 2:57 PM EST ? [facility] ?[address] ?[place] [address] ?Nuclear Medicine Report ? Signed ? Patient: Patrice Jenkins ?MR#: [id number] ?? [id number] ? : 1945 ?Acct:[id number] ? Age/Sex: 79 / M ?ADM Date: 12/20/24 ? Loc: HO.CARD ? Attending Dr: Sharon LEWIS ? Ordering Physician: Sharon Guardado ?? Date of Service: 12/20/24 ?? Procedure(s): NM cardiolite stress test ?? Accession Number(s): [id number] ? cc: Daisha Crane MD; Sharon Guardado [...] DD/ 0816 ? TD/TT: 12/21/24 1215 ? Mercerizing Range Feeder: ? Procedure Note Donlynette, Image - 12/24/2024 [place] [address] Nuclear Medicine Report Signed Patient: Patrice JenkinsMR#: [id number] : 7Acct:[id number] Age/Sex: 79 / MADM Date: 12/20/24 Loc: [facility] Attending Dr: Sharon LEWIS Ordering Physician: Sharon Guardado Date of Service: 12/20/24 Procedure(s): NM cardiolite stress test Accession Number(s): [id number] cc: Daisha Crane MD; Sharon Guardado [employer] [...] by: Volodymyr Curran MD 12/24/2024 02:54 PM [facility] Dictated By: Volodymyr Curran MD Signed By: <Electronically signed by Volodymyr Curran MD inOV> 12/24/24 1454 DD/ 0816 TD/TT: 12/21/24 1215 Mercerizing Range Feeder: [facility] External Provider CV STRE SS PROCEDURES Final Result [facility] [address] [place] [address] documented in this encounter Visit Diagnoses Diagnosis Heart murmur- Primary Undiagnosed cardiac murmurs documented in this encounter Additional Health Concerns Assessment Noted Time PHQ-9 Depression Total Score: 0 04/06/20 24 9:11 AM EDT documented as of this encounter Care Teams Clean Energy Policy Analyst Relationship Specialty Start Date End Date Daisha Crane MD [address] [place] [address] PCP - General Family Medicine 11/01/18 Lisa Liao, GenevaD 230 [place] [address] Pharmacist Internal Medicine 04/06/23 Alissa Santillan MD [address] [place] [address] Rheumatology 11/09/24 Sharon Guardado [address] 3rd [place] [address] Cardiology 11/13/24 Cedric Lujan MD [address] [place] [address] Orthopaedic Surgery 11/23/24 documented as of this encounter
--- OUTSIDE RECORDS SUMMARY | 2025-01-11 09:29 | XMS_ITS | Encounter Summary ---
Author Organization [employer] Address 75 [facility] 7t [place] [address] Care Team Providers Care Health Informatics Instructor Name Role Phone Daisha Crane MD Primary Care Provider +- [phone] Lisa Liao PharmD Unavailable +1- [phone] Alissa Santillan MD Unavailable Sharon Guardado Unavailable Cedric Lujan MD Unavailable Reason for Visit * Reason Comments Med Refill Encounter Details Date Type Department Care Team (Late st Contact Info) Description 08/31/2023 Refill [facility] MEDICINE 230 [place], [place] [phone] Key Gregory MD 230 [place], [place] [phone] Tinea versicolor Social History Tobacco Use Types [...] Description 01/22/2025 9:00 AM EDT Medication Management [facility] MEDICINE [address] [place] [address] Lisa Liao PharmD [address] [place] [address] 02/26/2025 11:00 AM EDT Telemedicine [facility] MED & PEDS 505 [place] [address] Loyda Banda, SO 505 [place] [address] 03/07/2025 10:15 AM EDT Office Visit [facility] MEDICINE [address] [place] [address] Daisha Crane MD 230 [place] [address] documented as of this encounter Goals Goal [...] documented as of this encounter Care Teams Health Informatics Instructor Relationship Specialty Start Date End Date Daisha Crane MD 230 [place] [address] PCP - General Family Medicine 11/01/18 Lisa Liao, GenevaD 230 [place] [address] Pharmacist Internal Medicine 04/06/23 Alissa Santillan MD [address] [place] [address] Rheumatology 11/09/24 Sharon Guardado [address] 3rd [place] [address] Cardiology 11/13/24 Cedric Lujan MD [address] [place] [address] Orthopaedic Surgery 11/23/24 documented as of this encounter
--- OUTSIDE RECORDS SUMMARY | 2025-01-11 09:29 | XMS_ITS | Encounter Summary ---
Author Organization [employer] Address 75 [facility] 7t [place] [address] Care Team Providers Care Hitting Coach Name Role Phone Daisha Crane MD Primary Care Provider +1- [phone] Lisa Liao PharmD Unavailable Alissa Santillan MD Unavailable Sharon Guardado Unavailable Cedric Lujan MD Unavailable Reason for Visit * Reason Onset Date Comments May Recalls 12/15/2024 Encounter Details Date Type Department Care Team (Late st Contact Info) Description 12/15/2024 Telephone [facility] MEDICINE 230 [place], [place] [phone] Daisha Crane MD 230 [place], [place] [phone] May Recalls Social History Tobacco Use Types [...] [place] - 12/15/2024 2:54 PM EST ..T/C- Television Director and Patient made a Follow Up appointment with Viv Martinez for March. Appointment reminder sent via mail. documented in this encounter Plan of Treatment Upcoming Encounters Date Type Department Care Team (Late st Contact Info) Description 01/22/2025 9:00 AM EDT Medication Management [facility] MEDICINE 230 [place] [address] Lisa Liao, PharmD 230 [place] [address] 02/26/2025 11:00 AM EDT Telemedicine [facility] MED & PEDS 505 [place] [address] Loyda Banda, RN 505 [place] [address] 03/07/2025 10:15 AM EDT Office Visit [facility] MEDICINE 230 [place] [address] Daisha Crane MD 230 [place] [address] documented as of this encounter Goals Goal [...] documented as of this encounter Care Teams Hitting Coach Relationship Specialty Start Date End Date Daisha Crane MD 230 [place] [address] PCP - General Family Medicine 11/01/18 Lisa Liao, PharmD 230 [place] [address] Pharmacist Internal Medicine 04/06/23 Alissa Santillan MD [address] [place] [address] Rheumatology 11/09/24 Sharon Guardado [address] 3rd [place] [address] Cardiology 11/13/24 Cedric Lujan MD [address] [place] [address] Orthopaedic Surgery 11/23/24 documented as of this encounter
--- OUTSIDE RECORDS SUMMARY | 2025-01-11 09:29 | XMS_ITS | Encounter Summary ---
Author Organization [employer] Address 75 [facility] 7t [place] [address] Care Team Providers Care Priest Name Role Phone Daisha Crane MD Primary Care Provider +1- [phone] Lisa LiaoD Unavailable +1- [phone] Alissa Santillan MD Unavailable Sharon Guardado Unavailable [...] 9:00 AM EDT Medication Management [facility] MEDICINE [address] [place] [address] Lisa Liao, PharmD 230 [place] [address] 02/26/2025 11:00 AM EDT Telemedicine [facility] CH[facility] MED & PEDS 505 [place], [place] [phone] Loyda Banda, SO 505 [place], [place] [phone] 03/07/2025 10:15 AM EDT Office Visit [facility] MEDICINE [address] [place] [address] Daisha Crane MD 230 [place], [place] [phone] documented as of this encounter Goals Goal [...] documented as of this encounter Care Teams Priest Relationship Specialty Start Date End Date Daisha Crane MD 230 [place] [address] PCP - General Family Medicine 11/01/18 Lisa Liao PharmD 230 [place] [address] Pharmacist Internal Medicine 04/06/23 Alissa Santillan MD [address] [place] [address] Rheumatology 11/09/24 Sharon Guardado [address] 3rd [place] [address] Cardiology 11/13/24 Cedric Lujan MD [address] [place] [address] Orthopaedic Surgery 11/23/24 documented as of this encounter
--- OUTSIDE RECORDS SUMMARY | 2025-01-11 09:29 | XMS_ITS | Encounter Summary ---
Author Organization [employer] [facility] Address 75 [facility] 7t [place] [address] Care Team Providers Care Methods Analyst Data Processing Name Role Phone Daisha Crane MD Primary Care Provider +1- [phone] Lisa Liao PharmD Unavailable Alissa Santillan MD Unavailable Sharon Guardado Unavailable Cedric Lujan MD Unavailable Encounter Details Date Type Department Care Team (Late st Contact Info) Description 03/05/2023 Orders Only [facility] MEDICINE 230 [place], [place] [phone] Radha Johnson LPN Social History Tobacco Use [...] Description 01/22/2025 9:00 AM EDT Medication Management [facility] MEDICINE 230 [place], [place] [phone] Lisa Liao, PharmD 230 [place], [place] [phone] 02/26/2025 11:00 AM EDT Telemedicine [facility] MED & PEDS 505 [place] [address] Loyda Banda, RN 505 [place] [address] 03/07/2025 10:15 AM EDT Office Visit [facility] MEDICINE 230 [place] [address] Daisha Crane MD 230 [place] [address] documented as of this encounter Visit Diagnoses Not on filedocumented in this encounter Additional Health Concerns Assessment Noted Time PHQ-9 Depression Total Score: 0 11/23/19 10:39 AM EST documented as of this encounter Care Teams Methods Analyst Data Processing Relationship Specialty Start Date End Date Daisha Crane MD 230 [place] [address] PCP - General Family Medicine 11/01/18 Lisa Liao, GenevaD [address] [place] [address] Pharmacist Internal Medicine 04/06/23 Alissa Santillan MD [address] [place] [address] Rheumatology 11/09/24 Sharon Guardado [address] 3rd [place] [address] Cardiology 11/13/24 Cedric Lujan MD [address] [place] [address] Orthopaedic Surgery 11/23/24 documented as of this encounter
--- OUTSIDE RECORDS SUMMARY | 2025-01-11 09:29 | XMS_ITS | Encounter Summary ---
Author Organization [employer] Address 75 [facility] 7t [place] [address] Care Team Providers Care Industrial Engineering Professor Name Role Phone Daisha Crane MD Primary Care Provider +1- [phone] Lisa Liao PharmD Unavailable Alissa Snatillan MD Unavailable Sharon Guardado Unavailable Cedric Lujan MD Unavailable Reason for Visit * Reason Onset Date Comments Med Refill 01/08/2025 Encounter Details Date Type Department Care Team (Late st Contact Info) Description 01/08/2025 Refill [facility] MEDICINE 230 [place], [place] [phone] Daisha Crane MD 230 [place], [place] [phone] Pain Social History Tobacco Use Types Packs/Day [...] encounter Miscellaneous Notes * Telephone Encounter - Hiral Kingston - 01/08/2025 9:20 AM EDT TC from pt requesting medication refill. Medications needing refill : oxyCODONE (Roxicodone) 5 MG immediate release tablet To be sent to: [facility] - [place], [place] - [address] [place] [address] documented in this encounter Plan of Treatment Upcoming Encounters Date Type Department Care Team ([facility] st Contact Info) Description 01/22/2025 9:00 AM EDT Medication Management [facility] MEDICINE 230 [place] [address] Lisa Liao, PharmD 230 [place] [address] 02/26/2025 11:00 AM EDT Telemedicine [facility] MED [facility] PEDS 505 [place] [address] Loyda Banda, RN 505 [place] [address] 03/07/2025 10:15 AM EDT Office Visit [facility] MEDICINE 230 [place] [address] Daisha Crane MD 230 [place] [address] documented as of this encounter Goals Goal [...] documented as of this encounter Care Teams Industrial Engineering Professor Relationship Specialty Start Date End Date Daisha Crane MD 230 [place] [address] PCP - General Family Medicine 11/01/18 Lisa Liao, PharmD 230 [place] [address] Pharmacist Internal Medicine 04/06/23 Alissa Santillan MD [address] [place] [address] Rheumatology 11/09/24 Sharon Guardado [address] 3rd [place] [address] Cardiology 11/13/24 Cedric Lujan MD [address] [place] [address] Orthopaedic Surgery 11/23/24 documented as of this encounter
--- OUTSIDE RECORDS SUMMARY | 2025-01-11 09:29 | XMS_ITS | Encounter Summary ---
Author Organization [employer] [facility] Address [address] [facility] 7t [place] [address] Care Team Providers Care Pocket Setter Name Role Phone Daisha Crane MD Primary Care Provider +1- [phone] Lisa Liao PharmD Unavailable Alissa Santillan MD Unavailable Sharon Guardado Unavailable Cedric Lujan MD Unavailable Encounter Details Date Type Department Care Team (Late st Contact Info) Description 06/01/2023 Abstract [facility] MEDICINE [address] [place] [address] [phone] Daisha Crane MD [address] [place], [place] [phone] Social History Tobacco Use Types Packs/Day Years [...] 9:00 AM EDT Medication Management [facility] MED[facility]INE [address] [place] [address] Lisa Liao, PharmD 230 [place] [address] 02/26/2025 11:00 AM EDT Telemedicine [facility] MED & PEDS 505 [place] [address] Loyda Banda, RN 505 [place], [place] 03/07/2025 10:15 AM EDT Office Visit [facility] MEDICINE 230 [place] [address] Daisha Crane MD [address] [place] [address] documented as of this encounter Goals Goal [...] documented as of this encounter Care Teams Pocket Setter Relationship Specialty Start Date End Date Daisha Crane MD [address] [place] [address] PCP - General Family Medicine 11/01/18 Lisa Liao, PharmD [address] [place] [address] Pharmacist Internal Medicine 04/06/23 Alissa Santillan MD [address] [place] [address] Rheumatology 11/09/24 Sharon Guardado [address] 3rd [place] [address] Cardiology 11/13/24 Cedric Lujan MD [address] [place] [address] Orthopaedic Surgery 11/23/24 documented as of this encounter
--- OUTSIDE RECORDS SUMMARY | 2025-01-11 09:29 | XMS_ITS | Encounter Summary ---
Author Organization [employer] [facility] Address [address] [facility] 7t [place] [address] Care Team Providers Care Design Verification Engineer Name Role Phone Daisha Crane MD Primary Care Provider +1- [phone] Lisa Liao PharmD Unavailable Alissa Santillan MD Unavailable Sharon Guardado Unavailable Cedric Lujan MD Unavailable Encounter Details Date Type Department Care Team (Late st Contact Info) Description 03/15/2023 Orders Only [facility] CH[facility] MED & PEDS 505 [place], [place] [phone] Jenn Polk LPN Social History Tobacco Use [...] Medication Management [facility] MEDICINE 230 [place], [place] [phone] Lisa Liao, PharmD 230 [place], [place] [phone] 02/26/2025 11:00 AM EDT Telemedicine [facility] MED & PEDS 505 [place] [address] Loyda Banda, RN 505 [place], [place] 03/07/2025 10:15 AM EDT Office Visit [facility] MEDICINE 230 [place] [address] Daisha Crane MD 230 [place] [address] documented as of this encounter Visit Diagnoses Not on filedocumented in this encounter Additional Health Concerns Assessment Noted Time PHQ-9 Depression Total Score: 0 11/23/19 10:39 AM EST documented as of this encounter Care Teams Design Verification Engineer Relationship Specialty Start Date End Date Daisha Crane MD 230 [place] [address] PCP - General Family Medicine 11/01/18 Lisa Liao, PharmD [address] [place] [address] Pharmacist Internal Medicine 04/06/23 Alissa Santillan MD [address] [place] [address] Rheumatology 11/09/24 Sharon Guardado [address] 3rd [place] [address] Cardiology 11/13/24 Cedric Lujan MD [address] [place] [address] Orthopaedic Surgery 11/23/24 documented as of this encounter
--- OUTSIDE RECORDS SUMMARY | 2025-01-11 09:29 | XMS_ITS | Encounter Summary ---
Author Organization [employer] Address [address] [facility] 7t [place] [address] Care Team Providers Care Underground Roof Bolter Name Role Phone Daisha Crane MD Primary Care Provider + [phone] Lisa Liao PharmD Unavailable +1- [phone] Alissa Santillan MD Unavailable Sharon Guardado Unavailable Cedric Lujan MD Unavailable Encounter Details Date Type Department Care Team (Late st Contact Info) Description 12/15/2024 Refill [facility] CH[facility] MED & PEDS 505 [place], [place] [phone] Loyda Banda, SO 505 [place] [address] Pain Social History Tobacco Use Types Packs/Day Years Used Date Smoking Tobacco: Every Day Cigarettes Passive Smoke Exposure: Current Smokeless Tobacco: Never Depression Answer Date Recorded Patient Health Questionnaire-9 Score 0 04/06/2024 Patient Health Questionnaire-9 Score 0 04/06/2024 Last PHQ-9: Questionnaire Data Not on file 0 04/06/2024 Housing Stability Answer Date Recorded What is your housing situation today? I have filippo sahrma 04/06/[address] you li [...] RN - 12/15/2024 9:36 AM EST .What FELT HAT STEAMER Tier would you like this patient to be? Tier 1 = HIGH RISK, Monthly FELT HAT STEAMER visits Tier 2 = MODerate RISK, Q3 Month visits Tier 3 = LOW RISK = Q4-6 month visits documented in this encounter Plan of Treatment Upcoming Encounters Date Type Department Care Team (Late st Contact Info) Description 01/22/2025 9:00 AM EDT Medication Management [facility] MEDICINE 230 [place] [address] Lisa Liao, PharmD 230 [place] [address] 02/26/2025 11:00 AM EDT Telemedicine [facility] CH[facility] MED & PEDS 505 [place] [address] Loyda Banda, RN 505 [place] [address] 03/07/2025 10:15 AM EDT Office Visit [facility] MED[facility]INE 230 [place] [address] Daisha Crane MD 230 [place] [address] documented as of this encounter Goals Goal [...] documented as of this encounter Care Teams Underground Roof Bolter Relationship Specialty Start Date End Date Daisha Crane MD 230 [place] [address] PCP - General Family Medicine 11/01/18 Lisa Liao, PharmD 230 [place] [address] Pharmacist Internal Medicine 04/06/23 Alissa Santillan MD [address] [place] [address] Rheumatology 11/09/24 Sharon Guardado [address] 3rd [place] [address] Cardiology 11/13/24 Cedric Lujan MD [address] [place] [address] Orthopaedic Surgery 11/23/24 documented as of this encounter
--- OUTSIDE RECORDS SUMMARY | 2025-01-11 09:29 | XMS_ITS | Encounter Summary ---
Author Organization [employer] [facility] Address [address] [facility] 7t [place] [address] Care Team Providers Care Fisher Lobster Name Role Phone Daisha Crane MD Primary Care Provider +1- [phone] Lisa Liao PharmD Unavailable Alissa Santillan MD Unavailable Sharon Guardado Unavailable Cedric Lujan MD Unavailable Reason for Visit * Reason Onset Date Comments Med Refill 03/15/2023 Encounter Details Date Type Department Care Team (Late st Contact Info) Description 03/15/2023 Telephone [facility] MEDICINE 230 [place], [place] [phone] Daisha Crane MD 230 [place], [place] [phone] Med Refill Social History Tobacco Use Types [...] Description 01/22/2025 9:00 AM EDT Medication Management [facility] MEDICINE [address] [place] [address] Lisa Liao PharmD [address] [place] [address] 02/26/2025 11:00 AM EDT Telemedicine [facility] CHC MED & PEDS 505 [place], [place] [phone] Loyda Banda, RN 505 [place] [address] 03/07/2025 10:15 AM EDT Office Visit [facility] MEDICINE [address] [place] [address] Daisha Crane MD [address] [place] [address] documented as of this encounter Visit Diagnoses Not on filedocumented in this encounter Additional Health Concerns Assessment Noted Time PHQ-9 Depression Total Score: 0 11/23/19 23 10:39 AM EST documented as of this encounter Care Teams Fisher Lobster Relationship Specialty Start Date End Date Daisha Crane MD [address] [place] [address] PCP - General Family Medicine 11/01/18 Lisa Liao, PharmD [address] [place] [address] Pharmacist Internal Medicine 04/06/23 Alissa Santillan MD [address] [place] [address] Rheumatology 11/09/24 Sharon Guardado [address] 3rd [place] [address] Cardiology 11/13/24 Cedric Lujan MD [address] [place] [address] Orthopaedic Surgery 11/23/24 documented as of this encounter
--- OUTSIDE RECORDS SUMMARY | 2025-01-11 09:29 | XMS_ITS | Encounter Summary ---
Author Organization [employer] Address [address] [facility] 7t [place] [address] Care Team Providers Care Locksmith Apprentice Name Role Phone Daisha Crane MD Primary Care Provider +1- [phone] Lisa Liao PharmD Unavailable +1- [phone] Alissa Santillan MD Unavailable Sharon Guardado Unavailable Cedric Lujan MD Unavailable Encounter Details Date Type Department Care Team (Late st Contact Info) Description 01/02/2025 Orders Only GENERIC EXTERNAL DATA DEPARTMENT [...] Description 01/22/2025 9:00 AM EDT Medication Management [facility] MEDICINE [address] [place] [address] Lisa Liao PharmD [address] [place] [address] 02/26/2025 11:00 AM EDT Telemedicine [facility] CHC MED & PEDS 505 [place] [address] Loyda Banda, RN 505 [place], [place] [phone] 03/07/2025 10:15 AM EDT Office Visit [facility] MEDICINE [address] [place] [address] Daisha Crane MD 230 [place] [address] documented as of this encounter Goals Goal [...] GFR Routine 01/02/2025 9 :03 AM EST documented in this encounter Results * CTA Chest w/ and w/o Contrast (01/02/2025 9:04 AM EST) Anatomical Region Laterality Modality Body, Chest Computed Tomogra phy 01/02/2025 9:04 AM EST Narrative 01/02/2025 3:42 PM EST ? [facility] ?[address] ?[place] [address] ? CT Scan Report ? Signed ? Patient: Patrice Jenkins ?MR#: [id number] ?? [id number] ? : 1945 ?Acct:[id number] ? Age/Sex: 79 / M ?ADM Date: 01/02/25 ? Loc: HO.CT ? Attending Dr: Sharon LEWIS ? Ordering Physician: Sharon Guardado ?? Date of Service: 01/02/25 ?? Procedure(s): CT angio chest aorta ?? Accession Number(s): [id number] ? cc: Daisha Crane MD; Sharon Guardado ? Report Number: ?? [id number]: Total DLP = ??151.00 mGy-cm ?? EXAMINATION: [...] Duran MD ??01/02/2025 03:39 PM ?? EST ? Dictated By: ?Bishnu Luna MD ? Signed By: ?<Electronically signed by Bishnu Vieyra MD in OV> ? 01/02/25 1539 ? DD/ 0904 ? TD/TT: 01/02/25 0930 ? Lead Teller: ? Procedure Note Radha, Image - 01/02/[address] [address] [address] Scan Report Signed Patient: Patrice Jenkins#: [id number] : 7Acct:[id number] Age/Sex: 79 / MADM Date: 01/02/25 Loc: HO.CT Attending Dr: Sharon Guardado TESTING PROJECTS ADMINISTRATOR-Zaria Ordering Physician: Sharon Guardado Date of Service: 01/02/25 Procedure(s): CT angio chest aorta Accession Number(s): [id number] cc: Daisha Crane MD; Sharon Guardado Report Number: [id number]: Total DLP = 151.00 mGy-cm EXAMINATION: CT [...] Bishnu Vieyra MDin OV> 01/02/25 1539 DD/ 3 TD/TT: 01/02/25929 Lead Teller: us [facility] External Provider IMG CT PROCEDURES Final Result * POCT Creatinine GFR (01/02/2025 9:03 AM EST) POCT Creatinine 0.9 0.5 - 1.4 mg/dL [facility] GFR POC >60 [facility] Comment:Chronic Kidney Disea se: Estimated GFR < 60 mL/min/1.93k0Hkzqlx Kidney Disease: Estimated GFR < 15 mL/min/1.73m2 01/02/2025 9:03 AM EST 01/02/2025 12:48 PM EST Narrative [facility] - 01/02/2025 12:50 PM EST [id number] Generic External Data Provider LAB POINT OF CARE TEST DOCKED DEVICE ORDERABLES Final Result [facility] [address] [place] [address] [phone] documented in this encounter Visit Diagnoses Not on filedocumented in this encounter Additional Health Concerns Assessment Noted Time PHQ-9 Depression Total Score: 0 04/06/20 24 9:11 AM EDT documented as of this encounter Care Teams Locksmith Apprentice Relationship Specialty Start Date End Date Daisha Crane MD 230 [place] [address] PCP - General Family Medicine 11/01/18 Lisa Liao, Nidia 230 [place] [address] Pharmacist Internal Medicine 04/06/23 Alissa Santillan MD [address] [place] [address] Rheumatology 11/09/24 Sharon Guardado [address] 3rd [place] [address] Cardiology 11/13/24 Cedric Lujan MD [address] [place] [address] Orthopaedic Surgery 11/23/24 documented as of this encounter
--- OUTSIDE RECORDS SUMMARY | 2025-01-11 09:29 | XMS_ITS | Encounter Summary ---
Author Organization [employer] Address [address] [facility] 7t [place] [address] Care Team Providers Care Retanner Name Role Phone Daisha Crane MD Primary Care Provider +- [phone] Lisa Liao PharmD Unavailable +1- [phone] Alissa Santillan MD Unavailable Sharon Guardado Unavailable Cedric Lujan MD Unavailable Reason for Visit * Reason Comments Med Refill Encounter Details Date Type Department Care Team (Late st Contact Info) Description 09/03/2023 Refill [facility] MEDICINE 230 [place], [place] [phone] Key Gregory MD 230 [place], [place] [phone] Tinea versicolor Social History Tobacco Use Types [...] Description 01/22/2025 9:00 AM EDT Medication Management [facility] MEDICINE [address] [place] [address] Lisa Liao PharmD [address] [place] [address] 02/26/2025 11:00 AM EDT Telemedicine [facility] CHC MED & PEDS 505 [place] [address] Loyda Banda, SO 505 [place] [address] 03/07/2025 10:15 AM EDT Office Visit [facility] MEDICINE [address] [place] [address] Daisha Crane MD 230 [place] [address] documented as of this encounter Goals Goal [...] documented as of this encounter Care Teams Retanner Relationship Specialty Start Date End Date Daisha Crane MD 230 [place] [address] PCP - General Family Medicine 11/01/18 Lisa Liao, GenevaD 230 [place] [address] Pharmacist Internal Medicine 04/06/23 Alissa Santillan MD [address] [place] [address] Rheumatology 11/09/24 Sharon Guardado [address] 3rd [place] [address] Cardiology 11/13/24 Cedric Lujan MD [address] [place] [address] Orthopaedic Surgery 11/23/24 documented as of this encounter
== END 2025-01-11 09:25 | disposition home or self-care (01) ==
LOC: HO.HCS 08:43
PROVIDERS: PCP Family Medicine; Visit Provider Nurse Practitioner Family
DX: I77.810 Thoracic aortic ectasia (principal); Q23.1 Congenital insufficiency of aortic valve; R07.89 Other chest pain; I10 Essential (primary) hypertension; M25.471 Effusion, right ankle; M25.472 Effusion, left ankle
CPT/HCPCS: 99214

== ENCOUNTER → 2025-01-11 08:42 | Outpatient (BNVA) | payer OTHER, SELFPAY | PROVIDERS: PCP Family Medicine; Visit Provider Nurse Practitioner Family | DX: I10 Essential (primary) hypertension (principal); I77.810 Thoracic aortic ectasia; Q23.1 Congenital insufficiency of aortic valve; R07.89 Other chest pain; M25.471 Effusion, right ankle; M25.472 Effusion, left ankle; Z87.891 Personal history of nicotine dependence | CPT/HCPCS: 99212 ==

== ENCOUNTER 2025-02-06 06:08 | Outpatient (REF) | payer OTHER, SELFPAY ==
--- NOTE | ~2025-02-06 | FL_ITS ---
EXAMINATION: XR FLUOROSCOPY WITH IMAGES CLINICAL INFORMATION: Right shoulder pain. COMPARISON: 08/16/2024. TECHNIQUE: Fluoroscopy provided to: Dr. Angeles Fluoroscopy time: 13.9 seconds DAP: 0.6996 Gycm2 Images: 2 FINDINGS: 2 spot images right shoulder obtained during pain management injection. Please refer to full procedural report for details. FL/FL guidance in treatment room IMPRESSION: Fluoroscopic guidance. Electronically signed by: Nba Baig MD 02/06/2025 12:21 PM EDT
--- OUTSIDE RECORDS SUMMARY | 2025-02-06 06:11 | XMS_ITS | Encounter Summary ---
Author Organization [employer] Address [address] [facility] 7t [place] [address] Care Team Providers Care Whipped Topping Mixer Name Role Phone Daisha Crane MD Primary Care Provider +- [phone] Lisa Liao PharmD Unavailable Alissa Santillan MD Unavailable Sharon Guardado Unavailable Cedric Lujan MD Unavailable Reason for Visit * Reason Comments Med Refill Encounter Details Date Type Department Care Team (Late st Contact Info) Description 02/06/2024 Refill [facility] MEDICINE 230 [place], [place] [phone] Lisa Liao, PharmD 230 [place] [address] Social History Tobacco Use Types Packs/Day Years [...] Care Team (Late st Contact Info) Description 02/26/2025 11:00 AM EDT Telemedicine [facility] CHC MED & PEDS 505 [place] [address] Loyda Banda, SO 505 [place] [address] 03/07/2025 10:15 AM EDT Office Visit [facility] MEDICINE 230 [place] [address] Daisha Crane MD 230 [place] [address] documented as of this encounter Goals Goal Patient Goal Type Associated Problems Recent Progress Patient-Stated? Author Blood Pressure < 140/90 Blood Pressure 110/56(2024 9:11 AM EDT) No Lisa Anguiano PharmD Hemoglobin A1c < 8 Result Component 6.9( 10:06 AM EST) No Lisa Anguiano PharmD documented as of this encounter Visit Diagnoses Not on filedocumented in this encounter Additional Health Concerns Assessment Noted Time PHQ-9 Depression Total Score: 0 11/23/19 23 10:39 AM EST documented as of this encounter Care Teams Whipped Topping Mixer Relationship Specialty Start Date End Date Daisha Crane MD 230 [place] [address] PCP - General Family Medicine 11/01/18 Lisa Liao, GenevaD 230 [place] [address] Pharmacist Internal Medicine 04/06/23 02/02/25 Alissa Santillan MD [address] [place] [address] Rheumatology 11/09/24 Sharon Guardado [address] 3rd [place] [address] Cardiology 11/13/24 Cedric Lujan MD [address] [place] [address] Orthopaedic Surgery 11/23/24 documented as of this encounter
--- OUTSIDE RECORDS SUMMARY | 2025-02-06 06:11 | XMS_ITS | Encounter Summary ---
Author Organization [employer] Address 75 [facility] 7t [place] [address] Care Team Providers Care Sand Mill Operator Name Role Phone Daisha Crane MD Primary Care Provider +- [phone] Lisa Liao PharmD Unavailable Alissa Santillan MD Unavailable Sharon Guardado Unavailable Cedric Lujan MD Unavailable Reason for Visit * Reason Onset Date Comments Med Refill 11/24/2023 Encounter Details Date Type Department Care Team (Late st Contact Info) Description 11/24/2023 Telephone [facility] MEDICINE 230 [place], [place] [phone] Daisha Crane MD 230 [place], [place] [phone] Med Refill Social History Tobacco Use Types [...] release tablet To be sent to: [facility] - [place], [place] - [address] [place] [address] documented in this encounter Plan of Treatment Upcoming Encounters Date Type Department Care Team ([facility] st Contact Info) Description 02/26/2025 11:00 AM EDT Telemedicine [facility] CHC MED & PEDS 505 [place] [address] Loyda Banda RN 505 [place] [address] 03/07/2025 10:15 AM EDT Office Visit [facility] MEDICINE 230 [place] [address] Daisha Crane MD 230 [place] [address] documented as of this encounter Goals Goal [...] documented as of this encounter Care Teams Sand Mill Operator Relationship Specialty Start Date End Date Daisha Crane MD 230 [place] [address] PCP - General Family Medicine 11/01/18 Lisa Liao PharmD 230 [place] [address] Pharmacist Internal Medicine 04/06/23 02/02/25 Alissa Santillan MD [address] [place] [address] Rheumatology 11/09/24 Sharon Guardado [address] 3rd [place] [address] Cardiology 11/13/24 Cedric Lujan MD [address] [place] [address] Orthopaedic Surgery 11/23/24 documented as of this encounter
--- OUTSIDE RECORDS SUMMARY | 2025-02-06 06:11 | XMS_ITS | Encounter Summary ---
Author Organization [employer] [facility] Address 75 [facility] 7t [place] [address] Care Team Providers Care Dramatic Agent Name Role Phone Daisha Crane MD Primary Care Provider + [phone] Lisa Liao PharmD Unavailable +1- [phone] Alissa Santillan MD Unavailable Shaorn Guardado Unavailable Cedric Lujan MD Unavailable Encounter Details Date Type Department Care Team (Latest Contact Info) Description 03/10/2019 Abstract [facility] Dental, Provider, DDS Social History Tobacco [...] Info) Description 02/26/2025 11:00 AM EDT Telemedicine [facility] CH[facility] MED & PEDS 505 [place], [place] [phone] Loyda Banda, SO 505 [place] [address] 03/07/2025 10:15 AM EDT Office Visit [facility] MEDICINE 230 [place], [place] [phone] Daisha Crane MD 230 [place], [place] [phone] documented as of this encounter Visit Diagnoses Not on filedocumented in this encounter Care Teams Dramatic Agent Relationship Specialty Start Date End Date Daisha Crane MD 230 [place] [address] PCP - General Family Medicine 11/01/18 Lisa Liao, GenevaD 230 [place] [address] Pharmacist Internal Medicine 04/06/23 02/02/25 Alissa Santillan MD [address] [place] [address] Rheumatology 11/09/24 Sharon Guardado [address] 3rd [place] [address] Cardiology 11/13/24 Cedric Lujan MD [address] [place] [address] Orthopaedic Surgery 11/23/24 documented as of this encounter
--- OUTSIDE RECORDS SUMMARY | 2025-02-06 06:11 | XMS_ITS | Encounter Summary ---
Author Organization [employer] [facility] Address [address] [facility] 7t [place] [address] Care Team Providers Care Power Nut Runner Operator Name Role Phone Daisha Crane MD Primary Care Provider +1- [phone] Lisa Liao PharmD Unavailable Alissa Santillan MD Unavailable Sharon Guardado Unavailable Cedric Lujan MD Unavailable Encounter Details Date Type Department Care Team (Late Contact Info) Description 06/01/2023 Abstract [facility] MEDICINE 230 [place], [place] [phone] Daisha Crane MD 230 [place], [place] [phone] Social History Tobacco Use Types Packs/Day Years [...] Department Care Team (Late Contact Info) Description 02/26/2025 11:00 AM EDT Telemedicine [facility] CH[facility] MED & PEDS 505 [place] [address] Loyda Banda, RN 505 [place] [address] 03/07/2025 10:15 AM EDT Office Visit [facility] MEDICINE 230 [place] [address] Daisha Crane MD 230 [place] [address] documented as of this encounter Goals Goal Patient Goal Type Associated Problems Recent Progress Patient-Stated? Author Blood Pressure < 140/90 Blood Pressure 110/56( 025 9:11 AM EDT) No Lisa Anguiano, PharmD documented as of this encounter Visit Diagnoses Not on filedocumented in this encounter Additional Health Concerns Assessment Noted Time PHQ-9 Depression Total Score: 0 11/23/19 10:39 AM EST documented as of this encounter Care Teams Power Nut Runner Operator Relationship Specialty Start Date End Date Daisha Crane MD 230 [place] [address] PCP - General Family Medicine 11/01/18 Lisa Liao, PharmD [address] [place] [address] Pharmacist Internal Medicine 04/06/23 02/02/25 Alissa Santillan MD [address] [place] [address] Rheumatology 11/09/24 Sharon Guardado [address]rd [place] [address] Cardiology 11/13/24 Cedric Lujan MD [address] [place] [address] Orthopaedic Surgery 11/23/24 documented as of this encounter
--- OUTSIDE RECORDS SUMMARY | 2025-02-06 06:11 | XMS_ITS | Clinical Summary ---
Author Organization [facility] Address [address] [place] [address] Care Team Providers Care Landscape Manager Name Role Phone Daisha Crane MD Primary Care Provider [phone] Alissa Santillan MD Unavailable Sharon Guardado Unavailable [...] predniSONE (Deltasone) 10 MG tablet 023 Active omeprazole (PriLOSEC) [address] capsuleIndicati ons:Gastroesoph ageal reflux disease without esophagitis TAKE 1 CAPSULE ON PACKAGE EVERY MORNING BEFORE A MEAL 90 capsule 3 024 Active TRUEplus Lancets 33G miscIndications :Type 2 diabetes mellitus without complication, without long-term current use of insulin ([facility]) Test daily blood glucose 100 each 11 024 Active folic acid (Folvite) 1 MG tabletIndicatio [...] ons:Chronic obstructive pulmonary disease, unspecified COPD type (CMS/HCC) INHALE 1 PUFF BY MOUTH EVERY [...] MOUTH EVERY DAY ON WEDNESDAY AND Wednesday 024 Active clotrimazole (Lotrimin) 1 % cream APPLY TOPICALLY TO SKIN AND TOENAILS DAILY FOR 12 WEEKS Active atorvastatin (Lipitor) 40 MG tabletIndicatio ns:Dyslipidemia TAKE 1 TABLET BY MOUTH AT BEDTIME 90 tablet Active Incruse Ellipta 62.5 MCG/ACT aerosol powderIndicatio [...] FOR CONSTIPATION 180 tablet 1 025 Active naloxone (Narcan) 4 mg/0.1 mL nasal sprayIndication s:Rheumatoid arthritis involving multiple sites with positive rheumatoid factor ([facility]) FOR SUSPECTED OPIOID OVERDOSE. SPRAY 0.1mL IN ONE NOSTRIL. REPEAT IN ALTERNATE NOSTRIL 2-3 MINUTES IF NEEDED. SEEK MEDICAL ATTENTION IMMEDIATELY EVEN IF PATIENT RESPONDS. 2 each 025 Active cholecalciferol (Vitamin D-3) 25 MCG tabletIndicatio ns:Vitamin D deficiency TAKE 1 TABLET BY MOUTH EVERY MORNING 90 tablet 025 Active albuterol (Ventolin HFA) 108 (90 Base) MCG/ACT inhalerIndicati ons:Mild intermittent asthma without complication INHALE 2 PUFFS BY MOUTH EVERY 4 HOURS NEEDED FOR WHEEZING OR SHORTNESS OF BREATH 18 g 025 Active oxyCODONE (Roxicodone) 5 MG immediate release tabletIndicatio ns:Pain Take 1 tablet (5 mg) by mouth every 8 (eight) hours if needed for severe pain. 56 tablet 025 Active FREESTYLE LITE test stripIndication s:Type 2 diabetes mellitus without complication, unspecified whether terminologist insulin use ([facility]) TEST BLOOD SUGAR TWICE DAILY 50 strip 11 025 Active prednisoLONE acetate (Pred-Forte) 1 % ophthalmic suspension INSTILL 1 DROP IN THE AFFECTED EYE FOUR TIMES DAILY. START AFTER PROCEDURE AND USE FOR 4 DAYS DIRECTED THEN STOP 025 Active FREESTYLE LITE test stripIndication s:Type 2 diabetes mellitus without complication, unspecified whether terminologist insulin use ([facility]) TEST BLOOD SUGAR TWICE DAILY 50 strip 11 024 2024 Discontinued naloxone (Narcan) 4 mg/0.1 mL nasal sprayIndication s:Rheumatoid arthritis involving multiple sites with positive rheumatoid factor ([facility]) May repeat every 2-3 minutes if needed, alternating nostrils, until medical assistance becomes available. 2 each 024 2024 Discontinued albuterol (Ventolin HFA) 108 (90 Base) MCG/ACT inhalerIndicati ons:Mild intermittent asthma without complication INHALE 2 PUFFS BY MOUTH EVERY 4 HOURS NEEDED FOR WHEEZING OR SHORTNESS OF BREATH 18 g 024 2024 Discontinued(R eorder (will not trigger notification to Pharmacy)) cholecalciferol (Vitamin D-3) 25 MCG tabletIndicatio ns:Vitamin D deficiency TAKE 1 TABLET BY MOUTH EVERY MORNING 90 tablet 024 2024 Discontinued oxyCODONE (Roxicodone) 5 MG [...] be different from the original. Enrolled in [facility] DM and HTN clinic with Lisa Liao, [place], [facility] [employer] Teacher: Denise, member services number [phone] Sustainability Specialist Agency: 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 He would like referral to [place] [facility] , new referral placed 09/04/24 Assessment & Plan (09/04/2024 4:56 PM EST): -referral placed to Podiatry 04/06/[address] Daniels, he was not happy with with visit. He would like referral to [place] [facility] , new referral placed 09/04/24 Assessment & Plan (04/06/2024 9:55 AM EDT): -referral placed to Podiatry 04/06/2024 Other specified health status 06/03/2023 Overview (09/04/2024): -next physical exam due after 09/04/2025 -eye care facilitated by [facility] -dental home is [facility] [place]. -healthcare Proxy completed and filed 04/06/2024. Assessment & Plan (09/04/2024 5:02 PM EST): -next physical exam due after 09/04/2025 -eye care facilitated by [facility] -dental home is [facility] [place]. -healthcare Proxy completed and filed 04/06/2024. Assessment & Plan (04/06/2024 9:51 AM EDT): -next physical exam due after 06/04/2024. -eye care facilitated by [facility]. -dental home is [facility] [place]. -healthcare Proxy completed and filed 04/06/2024. Assessment & Plan (06/04/2023 9:45 AM EDT): -next physical exam due after 06/04/2024. -eye care facilitated by [facility]. -dental home is [facility] [place]. Ascending aorta dilation 04/06/2023 Overview (01/15/2025): Followed by Sharon AREVALOC for [facility] Cardiovascular Specialty. Seen 01/14/25. -Hx of dilated ascending aorta. Echo done 08/28/22 shows moderate dilation of ascending aorta at 4.6 cm. He then had a CTA of chest showing sinus of valsalva dilated at 4.7 cm and ascending aorta dilated at 4.2 cm. -echocardiogram done 08/25/2023 shows EF 60-65%, dilated ascending aorta 4.6 cm. Overall no change in 2023. -echocardiogram done 08/10/2024 shows EF 60-65%, dilated ascending aorta 4.7 cm. -US 11/30/24 US/US abdominal aortic aneurysm IMPRESSION: No evidence of an abdominal aortic aneurysm. 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 Overall stable. Assessment & Plan (09/04/2024 4:56 PM EST): Followed by Sharon Guardado BUSINESS APPLICATIONS SPECIALISTHoustonC for [facility] Cardiovascular Specialty. Seen 05/30/24 -Hx of dilated [...] 04/06/2023 Overview (11/13/2024): -Followed by Sharon Guardado BUSINESS APPLICATIONS SPECIALIST-C for [facility] Cardi[facility]. -Known hx of Bicuspid aortic valve without stenosis or regurgitation. Followed by echocardiograms. Last echo 08/25/2023 shows mild calcification of the aortic valve, no regurgitation or stenosis. Repeat echo ordered 2023. -Sharon Guardado BUSINESS APPLICATIONS SPECIALIST-C for [facility] 11/2024 Prior notes indicate a [...] 04/06/2023 Overview (05/31/2024): Followed by Sharon Guardado BUSINESS APPLICATIONS SPECIALIST-C for [facility] Cardi[facility] 05/30/24. History of leg edema [...] September 2024. GERD (gastroesophageal reflux disease) 3 correction systemic steroid user 04/06/2023 Osteoporosis 04/06/2023 Overview [...] as pharmacomtherapy, [facility] smoking cessation group, and [facility] pharmacy smoking cessation clinic Discussed USPSTF recommends [...] as pharmacomtherapy, [facility] smoking cessation group, and [facility] pharmacy smoking cessation clinic Discussed USPSTF recommends [...] as pharmacomtherapy, [facility] smoking cessation group, and [facility] pharmacy smoking cessation clinic Discussed USPSTF recommends [...] rheumatoid factor 11/20/2022 Overview (11/09/2024): Seen by digital archivist Dr. Minnie Santillan 05/23/24 -On Actemra 162 [...] Plan (09/04/2024 5:00 PM EST): Seen by digital archivist Dr. Minnie Santillan 05/23/24 -On Actemra 162 [...] Plan (04/06/2024 9:51 AM EDT): Followed by digital archivist. 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 If patient is cleared. Will start hydroxychloroquine Continue Rasuvo 25 mg weekly + Actemra every other week. Chest CTA 10/2022 showed no evidence of ILD T-spot and Hepatitis panel -ve 11/2023,. Labs before next visit in 3 months via rheumatology Seen by digital archivist Dr. Minnie Santillan 02/23/24 -On Actemra 162 [...] Plan (06/04/2023 9:39 AM EDT): -Followed by digital archivist Dr. Fisher. -Currently on prednisone 2 mg daily -med rec to make sure we have correct meds on file -Continue Oxycodone 5mg BID as needed for pain -Did not tolerate Methotrexate, then Leflunomide 20mg daily but then d/c due to rash Assessment & Plan (11/20/2022 10:23 AM EST): -Followed by digital archivist Dr. Fisher. -Currently on prednisone 2 mg [...] dilatation measuring 4cm and ascending aorta 4.3cm Exercise Instructor Nanette Leonard seen in April 2022. Followed by Sharon AREVALOC for [facility] Cardi[facility] Specialty 05/30/24. History of leg edema [...] follow-up as planned for September 2024. -Sharon LEWIS for [facility] Cardi[facility]ty 11/2024 Thoracic aortic ectasia Category: [...] dilatation measuring 4cm and ascending aorta 4.3cm Exercise Instructor Nanette Leonard seen in April 2022. Followed by Sharon LEWIS for [facility] Cardiovascular Specialty 05/30/24. History of leg edema [...] dilatation measuring 4cm and ascending aorta 4.3cm Exercise Instructor Nanette Leonard seen in April 2022. Assessment [...] dilatation measuring 4cm and ascending aorta 4.3cm Exercise Instructor Nanette Leonard seen in April 2022. Assessment [...] dilatation measuring 4cm and ascending aorta 4.3cm Exercise Instructor Nanette Leonard seen in April 2022. Currently [...] lung disease 05/05/2012 Overview (09/04/2024): - PFTS 2010 revealed moderate severe obstructive airway disorder with [...] agreeable with plan to be transported to [facility] via ambulance . Case discussed with provider at [facility] ER Cutaneous skin tags 05/18/2023 03/30/20 Assessment [...] Encounters Date Type Department Care Team Description 02/04/2025 Refill [facility] [address] [place] [address] Daisha Crane MD Type 2 diabetes mellitus without complication, unspecified whether correction insulin use ([facility]) 02/02/2025 Travel 01/23/2025 Refill [facility] [address] [place] [address] Daisha Crane MD Pain 01/18/2025 Refill [facility] [address] [place] [address] Daisha Crane MD Mild intermittent asthma without complication 01/17/2025 Refill [facility] [address] [place] [address] Cara Whitfield MD Vitamin D deficiency 01/09/2025 Refill [facility] [address] [place] [address] Daisha Crane MD Rheumatoid arthritis involving multiple sites with positive rheumatoid factor ([facility]) 01/08/2025 Refill [facility] [address] [place] [address] Daisha Crane MD Pain 01/02/2025 Orders Only GENERIC EXTERNAL DATA DEPARTMENT Provider, Generic External Data 12/20/2024 Orders Only [facility] External Provider, [facility] Heart murmur (Primary Dx) 12/15/2024 9:30 AM EST Clinical Support [facility] [address] [place] [address] Loyda Banda tile sorter right shoulder pain 12/15/2024 Telephone [facility] [address] [place] [address] Daisha Crane MD May Recalls 12/15/2024 Refill [facility] [address] [place] [address] Loyda Banda RN Pain 12/15/2024 Travel 12/04/2024 Telephone [facility] [address] [place] [address] Daisha Crane MD Referral 11/26/2024 Refill [facility] [address] [place] [address] Cara Whitfield MD Constipation, unspecified constipation type 11/26/2024 Refill [facility] [address] [place] [address] Daisha Crane MD Constipation, unspecified constipation type 11/21/2024 Refill [facility] [address], [place] [phone] Daisha Crane MD Simple chronic bronchitis ([facility]) 11/21/2024 Refill [facility] [address], [place] [phone] Cara Whitfield MD Pain 11/21/2024 Refill [facility] [address] [place] [address] Daisha Crane MD Pain 11/13/2024 Travel from Last 3 Months Immunizations Name [...] Sign Reading Time Taken Comments Blood Pressure 110/56 02/02/2025 9:11 AM EDT Pulse 62 02/02/2025 9:11 AM EDT Temperature 36.3 ??C (97.3 ??F) 09/04/2024 10:04 [...] EDT Telemedicine [facility] [address] [place] [address] Loyda Banda, RN [address] [place] [address] 03/07/2025 10:15 AM EDT Office Visit [facility] [address] [place] [address] Daisha Crane MD [address] [place] [address] Health Maintenance Due Date Last Done Comments [...] AORTIC ANEURYSM Routine 12/01/2024 8:37 AM EST LIPID PANEL, STANDARD Routine 10/09/2024 8:05 AM EST Dyslipidemia ALBUMIN, RANDOM URINE W/CREATININE Routine 09/15/2024 8:03 AM EST Type 2 diabetes mellitus without complication, unspecified whether terminologist insulin use (CMS/HCC) POCT GLYCATED HEMOGLOBIN, TOTAL Routine 09/04/2024 10:06 AM EST Type 2 diabetes mellitus without complication, unspecified whether correction insulin use (CMS/HCC) HEPATITIS PANEL, GENERAL Routine 11/11/2023 10:39 AM EST HM COLONOSCOPY Routine 12/21/2020 from Last 3 Months or Most Recently Relevant to Health Maintenance Results * CTA Chest w/ and w/o Contrast (01/02/2025 9:04 AM EST) Anatomical Region Laterality Modality Body, Chest Computed Tomogra phy 01/02/2025 9:04 AM EST Narrative 01/02/2025 3:42 PM EST ? [facility] ?[address] ?[place] [address] ? CT Scan Report ? Signed ? Patient: Patrice Jenkins ?MR#: [id number] ?? [id number] ? : 1945 ?Acct:[id number] ? Age/Sex: 79 / M ?ADM Date: 01/02/25 ? Loc: HO.CT ? Attending Dr: Sharon LEWIS ? Ordering Physician: Sharon Guardado ?? Date of Service: 01/02/25 ?? Procedure(s): CT angio chest aorta ?? Accession Number(s): [id number] ? cc: Daisha Crane MD; Sharon Guardado ? Report Number: ?? [id number]: Total DLP = ??151.00 mGy-cm ?? EXAMINATION: [...] DD/ 0904 ? TD/TT: 01/02/25 0930 ? Certified Medical Assistant: ? Procedure Note Radha, Image - 01/02/[address] [place] [address] [address] Scan Report Signed Patient: Patrice JenkinsMR#: [id number] : 7Acct:[id number] Age/Sex: 79 / MADM Date: 01/02/25 Loc: HO.CT Attending Dr: Sharon LEWIS Ordering Physician: Sharon Guardado Date of Service: 01/02/25 Procedure(s): CT angio chest aorta Accession Number(s): [id number] cc: Daisha Crane MD; Sharon Guardado Report Number: [id number]: Total DLP = 151.00 mGy-cm EXAMINATION: CT [...] OV> 01/02/25 1539 DD/ 0904 TD/TT: 01/02/25 0930 Certified Medical Assistant: [facility] External Provider IMG CT PROCEDURES Final Result * POCT Creatinine GFR (01/02/2025 9:03 AM EST) POCT Creatinine 0.9 0.5 - 1.4 mg/dL [facility] GFR POC >60 [facility] Comment:Chronic Kidney Disea se: Estimated GFR < 60 mL/min/1.42w4Oyrdux Kidney Disease: Estimated GFR < 15 mL/min/1.73m2 01/02/2025 9:03 AM EST 01/02/2025 12:48 PM EST Narrative [facility] - 01/02/2025 12:50 PM EST [id number] us Generic External Data Provider LAB POINT OF CARE TEST DOCKED DEVICE ORDERABLES Final Result [facility] [address] [place] [address] [phone] * Stress test with myocardial perfusion (12/20/2024 8:16 AM EST) 12/20/2024 8:16 AM EST Narrative [facility] - 12/24/2024 2:57 PM EST ? [facility] ?[address] ?[place] [address] ?Nuclear Medicine Report ? Signed ? Patient: Patrice Jenkins ?MR#: [id number] ?? [id number] ? : 1945 ?Acct:[id number] ? Age/Sex: 79 / M ?ADM Date: 12/20/24 ? Loc: HO.CARD ? Attending Dr: Sharon Guardado NP-C ? Ordering Physician: Sharon Guardado ?? Date of Service: 12/20/24 ?? Procedure(s): NM cardiolite stress test ?? Accession Number(s): [id number] ? cc: Daisha Crane MD; Sharon Guardado NP-C ? Lexiscan Myocardial perfusion study ? Indication: [...] test reported separately. ? Electronically signed by: ??Voldoymyr Curran MD ??12/24/2024 02:54 ?? PM EST ? Dictated By: ?Volodymyr Curran MD ? Signed By: ?<Electronically signed by Volodymyr Curran MD in OV> ?12/24/24 1454 ? DD/ 0816 ? TD/TT: 12/21/24 1215 ? Certified Medical Assistant: ? Procedure Note Radha, Image - 12/24/[address] [address] Nuclear Medicine Report Signed Patient: Patrice JenkinsMR#: [id number] : 7Acct:[id number] Age/Sex: 79 / MADM Date: 12/20/24 Loc: [facility]EL[facility]ET Attending Dr: Sharon Guardado BUSINESS APPLICATIONS SPECIALIST-C Ordering Physician: Sharon Guardado BUSINESS APPLICATIONS SPECIALIST-C Date of Service: 12/20/24 Procedure(s): NM cardiolite stress test Accession Number(s): [id number] cc: Daisha Crane MD; Sharon Guardado Lexiscan [...] by: Volodymyr Curran MD 12/24/2024 02:54 PM [facility] Dictated By: Volodymyr Curran MD Signed By: <Electronically signed by Volodymyr Curran MD inOV> 12/24/24 1454 DD/ 0816 TD/TT: 12/21/24 1215 Certified Medical Assistant: [facility] External Provider CV STRE SS PROCEDURES Final Result [facility] [address] [place] [address] * POCT SAUNDRA-14 Urine Drug Screen (12/15/2024 10:01 AM EST) Oxycodone Screen, Urine Positive Urine Urine specimen obtained by clean catch procedure / Unknown 12/15/2024 10:01 AM EST Narrative Loyda Banda RN - 12/15/2024 10:01 AM EST .UTOX cup Lot#[id number] Exp. 06/20/26 Internal Pass Control Daisha Crane MD POINT OF CARE TEST ENTER/E DIT ORDERABLES Final Result * US ABDOMINAL AORTIC ANEURYSM (12/01/2024 8:37 AM EST) Anatomical Region Laterality Modality Abdomen Ultrasound 12/01/2024 8:37 AM EST Narrative 12/01/2024 9:07 AM EST ? [facility] ?[address] ?[place] [address] ? Ultrasound Report ? Signed ? Patient: Patrice Jenkins ?MR#: [id number] ?? [id number] ? : 1945 ?Acct:[id number] ? Age/Sex: 79 / M ?ADM Date: 12/01/24 ? Loc: HO.US ? Attending Dr: Sharon LEWIS ? Ordering Physician: Sharon Guardado ?? Date of Service: 12/01/24 ?? Procedure(s): US abdominal aortic aneurysm ?? Accession Number(s): [id number] ? cc: Daisha Crane MD; Sharon Guardado [...] ??Connor Higuera MD ??12/01/2024 09:04 AM EST ? Dictated By: ?Connor Higuera MD ? Signed By: ?<Electronically signed by Connor Higuera MD in OV> ?12/01/24 0904 ? DD/ 0837 ? TD/TT: 12/01/24 0842 ? Certified Medical Assistant: ? Procedure Note Donfrancoter, Image - 12/01/2024 [place] [address] Ultrasound Report Signed Patient: Patrice JenkinsMR#: [id number] : 1945cct:[id number] Age/Sex: 79 / MADM Date: 12/01/24 Loc: HO.US Attending Dr: Sharon LEWIS Ordering Physician: Sharon Guardado Date of Service: 12/01/24 Procedure(s): US abdominal aortic aneurysm Accession Number(s): [id number] cc: Daisha Crane MD; Sharon Guardado EXAMINATION: [...] signed by Connor Higuera MD in OV> 12/01/2404 DD/ TD/TT: 12/01/24841 Certified Medical Assistant: [facility] External Provider IMG US PROCEDURES Final Result * (ABNORMAL) Lipid Panel, Standard (10/09/2024 8:05 AM EST) Triglycerides 122 <150 mg/dL [facility] Comment:Desirable Triglyceri de: less than 150 mg/dLBorderline High Triglyceride 150-199 mg/dLHigh Triglyceride: 200-499 mg/dLVery High Triglyceride: greater than or equal to 5OO mg/dL Cholesterol 104 <200 mg/dL [facility] Comment:Desirable Cholestero l: less than 200 mg/dLBorderline High Cholesterol: 200-239 mg/dLHigh Cholesterol: greater than 239 mg/dL LDL Cholesterol Calculated 43 <100 mg/dL [facility] Comment:Desirable LDL: less than 100 mg/dLNear Optimal/Above Optimal LDL: 110- 129 mg/dLBorderline High LDL: 130-159 mg/dLHigh LDL: 160-189 mg/dLVery High LDL: greater than or equal to 190 mg/dL HDL Cholesterol 37(L) >40 mg/dL [facility] Comment:Desirable HDL: great er than 40 mg/dL Note: This HDL assay may give artificially low results in patients with liver disease. Blood Venous blood specimen / Unknown 10/09/2024 8:05 AM EST 10/09/2024 11:50 AM EST Daisha Crane MD LAB BLOOD ORDERABLES Final Result [facility] [address] [place] [address] [phone] * Albumin, Random Urine W/Creatinine (09/15/2024 8:03 AM EST) Creatinine, Urine 107.16 mg/dL [facility] Microalbumin Urine 20.0 mg/L [facility] Microalbum Creatinine Ratio Ur 18.6 <30 ug/mg cr [facility] Comment:Albumin/Creatinine R atio Reference Ranges: Normal: < 30 ug/mg creatinine Microalbuminuria: 30 - 300 ug/mg creatinineClinical Albuminuria: > 300 ug/mg creatinine Urine 09/15/2024 8:03 AM EST 09/15/2024 11:09 AM EST Daisha Crane MD LAB URINE ORDERABLES Final Result Performing Organization Address City/State/[facility] Co de Phone Number [facility] [address] [place] [phone] * (ABNORMAL) POCT HGB A1C (09/04/2024 10:06 AM EST) Pathologist [facility] Hemoglobin A1C 6.9(A) 4.0 - 6.0 % QC Media Lot # [id number] Lot# Expiration Date Blood 09/04/2024 10:0 6 AM EST us Daisha Crane MD POINT OF CARE TEST ENTER/E DIT ORDERABLES Final Result * Hepatitis Panel, General (11/11/2023 10:39 AM EST) Pathologist [facility] Hepatitis A IgM Nonreactive Nonreactive [facility] Comment:IgM antibodies to WAGONER V not detected; does not exclude earlyacute or recovered HAV infection. ~Hepatitis B Surface Antibody NONREACTIVE Nonreactive [facility] Comment:Nonreactive: < 8.00 mIU/mL Hepatitis B Core Antibody Nonreactive Nonreactive [facility] Hepatitis C Antibody Nonreactive Nonreactive [facility] Comment:Antibodies to HCV no t detected; does not exclude early acuteHCV infection. Hepatitis B Surface Ag Negative Negative [facility] 11/11/2023 10:3 9 AM EST 11/11/2023 10:39 AM EST us Generic External Data Provider LAB BLOOD ORDERAB LES Final Result [facility] [address] [place] [address] [phone] * Hm Colonoscopy (12/21/2020) Colonoscopy tubular adenoma with Dr. Rodríguez us Historical Provider HEALTH MAINTENANCE Final Result from Last 3 Months or Most Recently Relevant to Health Maintenance Insurance [facility] Advance Directives Documents on File Type Date Recorded Patient Planning Director Expl anation Advance Directives and Living Will 04/06/2024 Health Care Proxy 04/06/24 Care Teams Landscape Manager Relationship Specialty Start Date End Date Royce, MD Daisha [address] [place] [address] PCP - General Family Medicine 11/01/18 Alissa Santillan MD [address] [place] [address] Rheumatology 11/09/24 Sharon Guardado [address] [place] [address] Cardiology 11/13/24 Cedric Lujan MD [address] [place] [address] Orthopaedic Surgery 11/23/24
--- OUTSIDE RECORDS SUMMARY | 2025-02-06 06:11 | XMS_ITS | Encounter Summary ---
Author Organization [employer] Address [address] [facility] 7t [place] [address] Care Team Providers Care Chief Crew Scheduler Name Role Phone Daisha Crane MD Primary Care Provider +- [phone] Lisa Liao PharmD Unavailable Alissa Santillan MD Unavailable Sharon Guardado Unavailable Cedric Lujan MD Unavailable Reason for Visit * Reason Comments Med Refill Encounter Details Date Type Department Care Team (Late st Contact Info) Description 09/03/2023 Refill [facility] 230 [place], [place] [phone] Key Gergory MD 230 [place], [place] [phone] Tinea versicolor Social History Tobacco Use Types [...] Info) Description 02/26/2025 11:00 AM EDT Telemedicine [facility] MED & PEDS 505 [place] [address] Loyda Banad, RN 505 [place] [address] 03/07/2025 10:15 AM EDT Office Visit [facility] [address] [place] [address] Daisha Crane MD 230 [place] [address] documented as of this encounter Goals Goal Patient Goal Type Associated Problems Recent Progress Patient-Stated? Author Blood Pressure < 140/90 Blood Pressure 110/56(2024 9:11 AM EDT) No Piers-Gambl e, Lisa, PharmD Hemoglobin A1c < 8 Result Component 6.9( 10:06 AM EST) No Piers-Gambl eIdalmissa, PharmD documented as of this encounter Visit Diagnoses Diagnosis Tinea versicolor Pityriasis versicolor documented in this encounter Additional Health Concerns Assessment Noted Time PHQ-9 Depression Total Score: 0 11/23/19 10:39 AM EST documented as of this encounter Care Teams Chief Crew Scheduler Relationship Specialty Start Date End Date Daisha Crane MD 230 [place] [address] PCP - General Family Medicine 11/01/18 Lisa Liao, GenevaD 230 [place] [address] Pharmacist Internal Medicine 04/06/23 02/02/25 Alissa Santillan MD [address] [place] [address] Rheumatology 11/09/24 Sharon Guardado [address] 3rd [place] [address] Cardiology 11/13/24 Cedric Lujan MD [address] [place] [address] Orthopaedic Surgery 11/23/24 documented as of this encounter
--- OUTSIDE RECORDS SUMMARY | 2025-02-06 06:11 | XMS_ITS | Encounter Summary ---
Author Organization [facility] Address [address] [facility] 7t h Floor [address] Care Team Providers Care Power Plant Superintendent Name Role Phone Daisha Crane MD Primary Care Provider +1- [phone] Lisa Liao PharmD Unavailable Alissa Santillan MD Unavailable Sharon Guardado Unavailable Cedric Lujan MD Unavailable Encounter Details Date Type Department Care Team (Late st Contact Info) Description 12/08/2022 Abstract [facility] 230 [place], [place] [phone] Daisha Crane MD 230 [place], [place] [phone] Social History Tobacco Use Types Packs/Day Years [...] Info) Description 02/26/2025 11:00 AM EDT Telemedicine [facility] 505 [place] [address] Loyda Banda, RN 505 [place], [place] 03/07/2025 10:15 AM EDT Office Visit [facility] [address] [place] [address] Daisha Crane MD 230 [place] [address] documented as of this encounter Procedures Procedure [...] as of this encounter Care Teams Power Plant Superintendent Relationship Specialty Start Date End Date Daisha Crane MD [address] [place] [address] PCP - General Family Medicine 11/01/18 Lisa Liao, PharmD [address] [place] [address] Pharmacist Internal Medicine 04/06/23 02/02/25 Alissa Santillan MD [address] [place] [address] Rheumatology 11/09/24 Sharon Guardado [address] 3rd [place] [address] Cardiology 11/13/24 Cedric Lujan MD [address] [place] [address] Orthopaedic Surgery 11/23/24 documented as of this encounter
--- OUTSIDE RECORDS SUMMARY | 2025-02-06 06:11 | XMS_ITS | Encounter Summary ---
Author Organization [facility] Address 75 [facility] 7t [place] [address] Care Team Providers Care Pipe Washer Name Role Phone Daisha Crane MD Primary Care Provider Lisa Liao PharmD Unavailable Alissa Santillan MD Unavailable Sharon Guardado Unavailable Cedric Lujan MD Unavailable Encounter Details Date Type Department Care Team (Late st Contact Info) Description 10/22/2022 Orders Only [facility] 230 [place], [place] [phone] Radha Johnson LPN Social History Tobacco Use [...] Info) Description 02/26/2025 11:00 AM EDT Telemedicine [facility] CH[facility] MED & PEDS 505 [place], [place] [phone] Loyad Banda, SO 505 [place], [place] [phone] 03/07/2025 10:15 AM EDT Office Visit [facility] MEDICINE 230 [place], [place] [phone] Daisha Crane MD 230 [place] [address] documented as of this encounter Visit Diagnoses Not on filedocumented in this encounter Care Teams Pipe Washer Relationship Specialty Start Date End Date Daisha Crane MD 230 [place] [address] PCP - General Family Medicine 11/01/18 Lisa Liao, [place]D 230 [place] [address] Pharmacist Internal Medicine 04/06/23 02/02/25 Alissa Santillan MD [address] [place] [address] Rheumatology 11/09/24 Sharon Guardado [address] 3rd [place] [address] Cardiology 11/13/24 Cedric Lujan MD [address] [place] [address] Orthopaedic Surgery 11/23/24 documented as of this encounter
--- OUTSIDE RECORDS SUMMARY | 2025-02-06 06:11 | XMS_ITS | Encounter Summary ---
Author Organization [email or web address] [facility] Address 75 [facility] 7t [place] [address] Care Team Providers Care Winding Department Supervisor Name Role Phone Daisha Crane MD Primary Care Provider +1- [phone] Lisa Liao PharmD Unavailable Alissa Santillan MD Unavailable Sharon Guardado Unavailable Cedric Lujan MD Unavailable Reason for Visit * Reason Onset Date Comments Med Refill 06/07/2023 Encounter Details Date Type Department Care Team (Late st Contact Info) Description 06/07/2023 Telephone [facility] MEDICINE 230 [place], [place] [phone] Hiram Palma MD 230 [place], [place] [phone] Med Refill Social History Tobacco Use Types [...] MG immediate release tablet Please sent to [facility] - [place], [place] - [address] [place] [address] documented in this encounter Plan of Treatment Upcoming Encounters Date Type Department Care Team (Late st Contact Info) Description 02/26/2025 11:00 AM EDT Telemedicine [facility] CH[facility] MED & PEDS 505 [place] [address] Loyda Banda, SO 505 [place] [address] 03/07/2025 10:15 AM EDT Office Visit [facility] MEDICINE [address] [place] [address] Daisha Crane MD [address] [place] [address] documented as of this encounter Goals Goal Patient Goal Type Associated Problems Recent Progress Patient-Stated? Author Blood Pressure < 140/90 Blood Pressure 110/56( 025 9:11 AM EDT) No Lisa Anguiano PharmD documented as of this encounter Visit Diagnoses Not on filedocumented in this encounter Additional Health Concerns Assessment Noted Time PHQ-9 Depression Total Score: 0 11/23/19 23 10:39 AM EST documented as of this encounter Care Teams Winding Department Supervisor Relationship Specialty Start Date End Date Daisha Crane MD [address] [place] [address] PCP - General Family Medicine 11/01/18 Lisa Liao, GenevaD [address] [place] [address] Pharmacist Internal Medicine 04/06/23 02/02/25 Alissa Santillan MD [address] [place] [address] Rheumatology 11/09/24 Sharon Guardado [address] 3rd [place] [address] Cardiology 11/13/24 Cedric Lujan MD [address] [place] [address] Orthopaedic Surgery 11/23/24 documented as of this encounter
--- OUTSIDE RECORDS SUMMARY | 2025-02-06 06:11 | XMS_ITS | Encounter Summary ---
Author Organization [employer] [facility] Address 75 [facility] 7t [place] [address] Care Team Providers Care Manager Shift Name Role Phone Daisha Crane MD Primary Care Provider +1- [phone] Lisa Liao PharmD Unavailable [phone] Alissa Santillan MD Unavailable Sharon Guardado Unavailable Cedric Lujan MD Unavailable Encounter Details Date Type Department Care Team (Late st Contact Info) Description 10/28/2022 Telephone [facility] 230 [place], [place] [phone] Daisha Crane MD 230 [place], [place] [phone] Social History Tobacco Use Types Packs/Day Years [...] 02/26/2025 11:00 AM EDT Telemedicine [facility] 505 [place] [address] Loyda Banda, SO 505 [place] [address] 03/07/2025 10:15 AM EDT Office Visit [facility] 230 [place] [address] Daisha Crane MD 230 [place] [address] documented as of this encounter Visit Diagnoses Not on filedocumented in this encounter Care Teams Manager Shift Relationship Specialty Start Date End Date Daisha Crane MD 230 [place] [address] PCP - General Family Medicine 11/01/18 Lisa Liao, GenevaD 230 [place] [address] Pharmacist Internal Medicine 04/06/23 02/02/25 Alissa Santillan MD [address] [place] [address] Rheumatology 11/09/24 Sharon Guardado [address] 3rd [place] [address] Cardiology 11/13/24 Cedric Lujan MD [address] [place] [address] Orthopaedic Surgery 11/23/24 documented as of this encounter
--- OUTSIDE RECORDS SUMMARY | 2025-02-06 06:11 | XMS_ITS | Encounter Summary ---
Author Organization [employer] Address 75 [facility] 7t [place] [address] Care Team Providers Care Pin Sticker Name Role Phone Daisha Crane MD Primary Care Provider +1- [phone] Alissa Santillan MD Unavailable Sharon Guardado Unavailable Cedric Lujan MD Unavailable Reason for Visit * Reason Comments Med Refill Encounter Details Date Type Department Care Team (Late st Contact Info) Description 02/04/2025 Refill [facility] MEDICINE 230 [place], [place] [phone] Daisha Crane MD 230 [place], [place] [phone] Type 2 diabetes mellitus without complication, unspecified whether half-way insulin use ([facility]) Social History Tobacco Use Types Packs/Day Years [...] Info) Description 02/26/2025 11:00 AM EDT Telemedicine [facility] MED & PEDS 505 [place] [address] Loyda Banda, SO 505 [place] [address] 03/07/2025 10:15 AM EDT Office Visit [facility] MEDICINE 230 [place] [address] Daisha Crane MD 230 [place], [place] [phone] documented as of this encounter Goals Goal Patient Goal Type Associated Problems Recent Progress Patient-Stated? Author Blood Pressure < 140/90 Blood Pressure 110/56(2024 9:11 AM EDT) No Lisa Anguiano PharmAj Hemoglobin A1c < 8 Result Component 6.9( 10:06 AM EST) No Lisa Anguiano PharmAj documented as of this encounter Visit Diagnoses Diagnosis Type 2 diabetes mellitus without complication, unspecified whether exterminator helper insulin use ([facility]) documented in this encounter Additional Health Concerns Assessment Noted Time PHQ-9 Depression Total Score: 0 04/06/20 24 9:11 AM EDT documented as of this encounter Care Teams Pin Sticker Relationship Specialty Start Date End Date Daisha Crane MD 230 [place] [address] PCP - General Family Medicine 11/01/18 Alissa Santillan MD [address] [place] [address] Rheumatology 11/09/24 Sharon Guardado [address] 3rd [place] [address] Cardiology 11/13/24 Cedric Lujan MD [address] [place] [address] Orthopaedic Surgery 11/23/24 documented as of this encounter
--- OUTSIDE RECORDS SUMMARY | 2025-02-06 06:11 | XMS_ITS | Encounter Summary ---
Author Organization [employer] [facility] Address 75 [facility] 7t [place] [address] Care Team Providers Care Hat Body Sorter Name Role Phone Daisha Crane MD Primary Care Provider +- [phone] Lisa Liao PharmD Unavailable +1- [phone] Alissa Santillan MD Unavailable Sharon Guardado Unavailable Cedric Lujan MD Unavailable Encounter Details Date Type Department Care Team (Late Contact Info) Description 12/16/[address] [facility] MED & PEDS 505 [place], [place] [phone] Jenn Polk LPN Social History Tobacco Use [...] Upcoming Encounters Date Type Department Care Team ([facility] Contact Info) Description 02/26/2025 11:00 AM EDT Telemedicine [facility] 505 [place] [address] Loyda Banda, RN 505 [place] [address] 03/07/2025 10:15 AM EDT Office Visit [facility] MED[facility] 230 [place] [address] Daisha Crane MD 230 [place] [address] documented as of this encounter Visit Diagnoses Not on filedocumented in this encounter Additional Health Concerns Assessment Noted Time PHQ-9 Depression Total Score: 0 11/23/19 10:39 AM EST documented as of this encounter Care Teams Hat Body Sorter Relationship Specialty Start Date End Date Daisha Crane MD 230 [place] [address] PCP - General Family Medicine 11/01/18 Lisa Liao, GenevaD [address] [place] [address] Pharmacist Internal Medicine 04/06/23 02/02/25 Alissa Santillan MD [address] [place] [address] Rheumatology 11/09/24 Sharon Guardado [address] 3rd [place] [address] Cardiology 11/13/24 Cedric Lujan MD [address] [place] [address] Orthopaedic Surgery 11/23/24 documented as of this encounter
--- OUTSIDE RECORDS SUMMARY | 2025-02-06 06:11 | XMS_ITS | Encounter Summary ---
Author Organization [employer] Address 75 [facility] 7t [place] [address] Care Team Providers Care Retail Sales Associate Name Role Phone Daisha Crane MD Primary Care Provider +1- [phone] Lisa Liao PharmD Unavailable [phone] Alissa Santillan MD Unavailable Sharon Guardado Unavailable Cedric Lujan MD Unavailable Reason for Visit * Reason Onset Date Comments Med Refill 06/05/2024 Encounter Details Date Type Department Care Team (Late st Contact Info) Description 06/05/2024 Telephone [facility] MEDICINE 230 [place], [place] [phone] Daisha Crane MD 230 [place], [place] [phone] Med Refill Social History Tobacco Use Types [...] immediate release tablet To be sent to: [facility] - [place], [place] - [address] [place] [address] documented in this encounter Plan of Treatment Upcoming Encounters Date Type Department Care Team ([facility] st Contact Info) Description 02/26/2025 11:00 AM EDT Telemedicine [facility] CH[facility] MED & PEDS 505 [place] [address] Loyda Banda RN 505 [place] [address] 03/07/2025 10:15 AM EDT Office Visit [facility] MEDICINE 230 [place] [address] Daisha Crane MD 230 [place] [address] documented as of this encounter Goals Goal [...] documented as of this encounter Care Teams Retail Sales Associate Relationship Specialty Start Date End Date Daisha Crane MD 230 [place] [address] PCP - General Family Medicine 11/01/18 Lisa Liao PharmD 230 [place] [address] Pharmacist Internal Medicine 04/06/23 02/02/25 Alissa Santillan MD [address] [place] [address] Rheumatology 11/09/24 Sharon Guardado [address] 3rd [place] [address] Cardiology 11/13/24 Cedric Lujan MD [address] [place] [address] Orthopaedic Surgery 11/23/24 documented as of this encounter
--- OUTSIDE RECORDS SUMMARY | 2025-02-06 06:11 | XMS_ITS | Encounter Summary ---
Author Organization [employer] Address 75 [facility] 7t [place] [address] Care Team Providers Care Changer Fixer Name Role Phone Daisha Crane MD Primary Care Provider +1- [phone] Lisa LiaoD Unavailable +1- [phone] Alissa Santillan MD Unavailable Sharon Guardado Unavailable Cedric Lujan MD Unavailable Encounter Details Date Type Department Care Team (Latest Contact Info) Description 02/02/2025 Travel Social History Tobacco Use Types Packs/Day [...] [facility] 505 [place], [place] [phone] Loyda Banda, SO 505 [place], [place] [phone] 03/07/2025 10:15 AM EDT Office Visit [facility] MED[facility]INE 230 [place] [address] Daisha Crane MD 230 [place] [address] documented as of this encounter Goals Goal Patient Goal Type Associated Problems Recent Progress Patient-Stated? Author Blood Pressure < 140/90 Blood Pressure 110/56(2024 9:11 AM EDT) No Daveys-Idalmis Donaldsonsa, PharmD Hemoglobin A1c < 8 Result Component 6.9( 10:06 AM EST) No Daveys-Madalyn mg, Lisa, PharmD documented as of this encounter Visit Diagnoses Not on filedocumented in this encounter Additional Health Concerns Assessment Noted Time PHQ-9 Depression Total Score: 0 04/06/20 24 9:11 AM EDT documented as of this encounter Care Teams Changer Fixer Relationship Specialty Start Date End Date Daisha Crane MD 230 [place] [address] PCP - General Family Medicine 11/01/18 Lisa Liao, PharmD 230 [place] [address] Pharmacist Internal Medicine 04/06/23 02/02/25 Alissa Santillan MD [address] [place] [address] Rheumatology 11/09/24 Sharon Guardado [address] 3rd [place] [address] Cardiology 11/13/24 Cedric Lujan MD [address] [place] [address] Orthopaedic Surgery 11/23/24 documented as of this encounter
--- OUTSIDE RECORDS SUMMARY | 2025-02-06 06:11 | XMS_ITS | Patient Health Record ---
Author Organization [facility] Address [address] [place] [address] Care Team Providers Care Breeder Hen Service Technician Name Role Phone Daisha Crane MD Primary Care Provider Og Jacobs Jr Unavailable Allergies Allergen (clinical drug ingredient) Drug/Non Drug [...] Problem Status W/U Status Risk Notes Problem 012027898 Colon cancer screening (Z12.11) Active confirmed Problem 120647165 Personal history of colonic polyps (Z86.010) Active confirmed Problem [id number] Gastroesophageal reflux disease without esophagitis (K21.9) Active confirmed Plan Of Treatment Future Test Test Name Order Date COLONOSCOPY 11/06/2015 COLONOSCOPY 01/13/2021 Insurance Providers Payer Name Payer Address Payer Phone Subscriber Number Group Number Insured Name Patient Relationship to Insured Coverage Start Date Coverage End Date [facility] [address] [place] [phone] [id number] CORA KELLY Self - patient is the insured Medical (General) History Medical History History ICD Code 12/15/2006 Colonoscopy 02/14/2010 Colonoscopy Colon Polyps/Tubular adenomas Hypertension Hyperlipidemia Asthma Low back pain Reflux rheumatoid arthritis Surgical History Surgery Date(Month/Year) back surgery prostatectomy for prostate cancer umbilical hernia repair
--- OUTSIDE RECORDS SUMMARY | 2025-02-06 06:11 | XMS_ITS | Encounter Summary ---
Author Organization [employer] Address 75 [facility] 7t [place] [address] Care Team Providers Care Industrial Waste Inspector Name Role Phone Daisha Crane MD Primary Care Provider +1- [phone] Lisa Liao PharmD Unavailable Alissa Santillan MD Unavailable Sharon Guardado Unavailable Cedric Lujan MD Unavailable Reason for Visit * Reason Onset Date Comments Med Refill 07/04/2024 Encounter Details Date Type Department Care Team (Late st Contact Info) Description 07/04/[address] [facility] MEDICINE 230 [place], [place] [phone] Daisha Crane MD 230 [place], [place] [phone] Med Refill Social History Tobacco Use Types [...] be sent to: [facility] - [place], [place] - [address] [place] [address] documented in this encounter Plan of Treatment Upcoming Encounters Date Type Department Care Team ([facility] st Contact Info) Description 02/26/2025 11:00 AM EDT Telemedicine [facility] CHC MED & PEDS 505 [place] [address] Loyda Banda RN 505 [place] [address] 03/07/2025 10:15 AM EDT Office Visit [facility] MEDICINE 230 [place] [address] Daisha Crane MD 230 [place] [address] documented as of this encounter Goals Goal [...] as of this encounter Care Teams Industrial Waste Inspector Relationship Specialty Start Date End Date Daisha Crane MD 230 [place] [address] PCP - General Family Medicine 11/01/18 Lisa Liao PharmD 230 [place] [address] Pharmacist Internal Medicine 04/06/23 02/02/25 Alissa Santillan MD [address] [place] [address] Rheumatology 11/09/24 Sharon Guardado [address] 3rd [place] [address] Cardiology 11/13/24 Cedric Lujan MD [address] [place] [address] Orthopaedic Surgery 11/23/24 documented as of this encounter
--- OUTSIDE RECORDS SUMMARY | 2025-02-06 06:11 | XMS_ITS | Encounter Summary ---
Author Organization [employer] [facility] Address 75 [facility] 7t [place] [address] Care Team Providers Care Assembler Dc Field Yoke Name Role Phone Daisha Crane MD Primary Care Provider +1- [phone] Lisa Liao PharmD Unavailable Alissa Santillan MD Unavailable Sharon Guardado Unavailable Cedric Lujan MD Unavailable Reason for Visit * Reason Onset Date Comments Med Refill 03/15/2023 Encounter Details Date Type Department Care Team (Late st Contact Info) Description 03/15/2023 Telephone [facility] MEDICINE 230 [place], [place] [phone] Daisha Crane MD 230 [place], [place] [phone] Med Refill Social History Tobacco Use Types [...] Info) Description 02/26/2025 11:00 AM EDT Telemedicine [facility] CHC MED & PEDS 505 [place] [address] Loyda Banda, RN 505 [place] [address] 03/07/2025 10:15 AM EDT Office Visit [facility] MEDICINE 230 [place] [address] Daisha Crane MD 230 [place] [address] documented as of this encounter Visit Diagnoses Not on filedocumented in this encounter Additional Health Concerns Assessment Noted Time PHQ-9 Depression Total Score: 0 11/23/19 10:39 AM EST documented as of this encounter Care Teams Assembler Dc Field Yoke Relationship Specialty Start Date End Date Daisha Crane MD 230 [place] [address] PCP - General Family Medicine 11/01/18 Lisa Liao, GenevaD 230 [place] [address] Pharmacist Internal Medicine 04/06/23 02/02/25 Alissa Santillan MD [address] [place] [address] Rheumatology 11/09/24 Sharon Guardado [address] 3rd [place] [address] Cardiology 11/13/24 Cedric Lujan MD [address] [place] [address] Orthopaedic Surgery 11/23/24 documented as of this encounter
--- OUTSIDE RECORDS SUMMARY | 2025-02-06 06:11 | XMS_ITS | Encounter Summary ---
Author Organization [employer] Address 75 [facility] 7t [place] [address] Care Team Providers Care French Instructor Name Role Phone Daisha Crane MD Primary Care Provider +1- [phone] Lisa Liao PharmD Unavailable +[phone] Alissa Santillan MD Unavailable Sharon Guardado Unavailable Cedric Lujan MD Unavailable Encounter Details Date Type Department Care Team (Late st Contact Info) Description 10/30/2024 Telephone [facility] CHC MED & PEDS [address] [place], [place] [phone] Daisha Crane MD 230 [place], [place] [phone] Social History Tobacco Use Types Packs/Day Years [...] Info) Description 02/26/2025 11:00 AM EDT Telemedicine [facility] CHC MED & PEDS 505 [place] [address] Loyda Banda, SO 505 [place] [address] 03/07/2025 10:15 AM EDT Office Visit [facility] MEDICINE 230 [place] [address] Daisha Crane MD 230 [place] [address] documented as of this encounter Goals Goal [...] documented as of this encounter Care Teams French Instructor Relationship Specialty Start Date End Date Cesario Craneie, MD 230 [place] [address] PCP - General Family Medicine 11/01/18 Lisa Liao, GenevaD 230 [place] [address] Pharmacist Internal Medicine 04/06/23 02/02/25 Alissa Santillan MD [address] [place] [address] Rheumatology 11/09/24 Sharon Guardado [address] 3rd [place] [address] Cardiology 11/13/24 Cedric Lujan MD [address] [place] [address] Orthopaedic Surgery 11/23/24 documented as of this encounter
--- OUTSIDE RECORDS SUMMARY | 2025-02-06 06:11 | XMS_ITS | Encounter Summary ---
Author Organization [employer] [facility] Address [address] [facility] 7t [place] [address] Care Team Providers Care Harness Preparer Name Role Phone Daisha Crane MD Primary Care Provider + [phone] Lisa Liao PharmD Unavailable +1- [phone] Alissa Santillan MD Unavailable Sharon Guardado Unavailable Cedric Lujan MD Unavailable Encounter Details Date Type Department Care Team (Late st Contact Info) Description 03/15/2023 Orders Only [facility] MED & PEDS 505 [place] [address] Jenn Polk LPN Social History Tobacco Use [...] Info) Description 02/26/2025 11:00 AM EDT Telemedicine [facility] MED & PEDS 505 [place] [address] Loyda Banda, RN 505 [place] [address] 03/07/2025 10:15 AM EDT Office Visit [facility] MEDICINE 230 [place] [address] Daisha Crane MD 230 [place] [address] documented as of this encounter Visit Diagnoses Not on filedocumented in this encounter Additional Health Concerns Assessment Noted Time PHQ-9 Depression Total Score: 0 11/23/19 10:39 AM EST documented as of this encounter Care Teams Harness Preparer Relationship Specialty Start Date End Date Daisha Crane MD 230 [place] [address] PCP - General Family Medicine 11/01/18 Lisa Liao, GenevaD 230 [place] [address] Pharmacist Internal Medicine 04/06/23 02/02/25 Alissa Santillan MD [address] [place] [address] Rheumatology 11/09/24 Sharon Guardado [address] 3rd [place] [address] Cardiology 11/13/24 Cedric Lujan MD [address] [place] [address] Orthopaedic Surgery 11/23/24 documented as of this encounter
--- OUTSIDE RECORDS SUMMARY | 2025-02-06 06:11 | XMS_ITS | Encounter Summary ---
Author Organization [employer] [facility] Address 75 [facility] 7t [place] [address] Care Team Providers Care Telephonic Case Manager Name Role Phone Daisha Crane MD Primary Care Provider +- [phone] Lisa Liao PharmD Unavailable Alissa Santillan MD Unavailable Sharon Guardado Unavailable Cedric Lujan MD Unavailable Encounter Details Date Type Department Care Team (Late st Contact Info) Description 03/05/2023 Orders Only [facility] MEDICINE 230 [place] [address] Radha Johnson LPN Social History Tobacco Use [...] Info) Description 02/26/2025 11:00 AM EDT Telemedicine [facility] CHC MED & PEDS 505 [place] [address] Loyda Banda, RN 505 [place] [address] 03/07/2025 10:15 AM EDT Office Visit [facility] MEDICINE 230 [place] [address] Daisha Crane MD 230 [place] [address] documented as of this encounter Visit Diagnoses Not on filedocumented in this encounter Additional Health Concerns Assessment Noted Time PHQ-9 Depression Total Score: 0 11/23/19 10:39 AM EST documented as of this encounter Care Teams Telephonic Case Manager Relationship Specialty Start Date End Date Daisha Crane MD 230 [place] [address] PCP - General Family Medicine 11/01/18 Lisa Liao, GenevaD [address] [place] [address] Pharmacist Internal Medicine 04/06/23 02/02/25 Alissa Santillan MD [address] [place] [address] Rheumatology 11/09/24 Sharon Guardado [address] 3rd [place] [address] Cardiology 11/13/24 Cedric Lujan MD [address] [place] [address] Orthopaedic Surgery 11/23/24 documented as of this encounter
--- OUTSIDE RECORDS SUMMARY | 2025-02-06 06:11 | XMS_ITS | Encounter Summary ---
Author Organization [employer] Address 75 [facility] 7t [place] [address] Care Team Providers Care Hand Profiler Name Role Phone Daisha Crane MD Primary Care Provider +- [phone] Lisa Liao PharmD Unavailable Alissa Santillan MD Unavailable Sharon Guardado Unavailable Cedric Lujan MD Unavailable Reason for Visit * Reason Comments Med Refill Encounter Details Date Type Department Care Team (Late st Contact Info) Description 08/31/[address] [facility] MEDICINE 230 [place], [place] [phone] Key Gregory MD 230 [place], [place] [phone] Tinea versicolor Social History Tobacco Use Types [...] 11:00 AM EDT Telemedicine [facility] CHC MED & PEDS 505 [place] [address] Loyda Banda, RN 505 [place] [address] 03/07/2025 10:15 AM EDT Office Visit [facility] MEDICINE 230 [place] [address] Daisha Crane MD 230 [place] [address] documented as of this encounter Goals Goal [...] as of this encounter Care Teams Hand Profiler Relationship Specialty Start Date End Date Daisha Crane MD 230 [place] [address] PCP - General Family Medicine 11/01/18 Lisa Liao, GenevaD 230 [place] [address] Pharmacist Internal Medicine 04/06/23 02/02/25 Alissa Santillan MD [address] [place] [address] Rheumatology 11/09/24 Sharon Guardado [address] 3rd [place] [address] Cardiology 11/13/24 Cedric Lujan MD [address] [place] [address] Orthopaedic Surgery 11/23/24 documented as of this encounter
--- OUTSIDE RECORDS SUMMARY | 2025-02-06 06:11 | XMS_ITS | Encounter Summary ---
Author Organization [employer] Address 75 [facility] 7t [place] [address] Care Team Providers Care Road Patcher Name Role Phone Daisha Crane MD Primary Care Provider +- [phone] Lisa Liao PharmD Unavailable Alissa Santillan MD Unavailable Sharon Guardado Unavailable Cedric Lujan MD Unavailable Reason for Visit * Reason Comments Med Refill Encounter Details Date Type Department Care Team (Late st Contact Info) Description 11/21/2024 Refill [facility] CHC MED & PEDS [address] [place], [place] [phone] Cara Whitfield MD 230 [place], [place] [phone] Pain Social History Tobacco Use Types Packs/Day [...] EDT Telemedicine [facility] CHC MED & PEDS 505 [place] [address] Loyda Banda RN 505 [place] [address] 03/07/2025 10:15 AM EDT Office Visit [facility] MEDICINE 230 [place] [address] Daisha Crane MD 230 [place], [place] [phone] documented as of this encounter Goals Goal Patient Goal Type Associated Problems Recent Progress Patient-Stated? Author Blood Pressure < 140/90 Blood Pressure 110/56(2024 9:11 AM EDT) No Daveys-Lisa Donaldson, PharmD Hemoglobin A1c < 8 Result Component 6.9( 10:06 AM EST) No Daveys-Lisa Donaldson, PharmD documented as of this encounter Visit Diagnoses Diagnosis Pain Generalized pain documented in this encounter Additional Health Concerns Assessment Noted Time PHQ-9 Depression Total Score: 0 04/06/20 24 9:11 AM EDT documented as of this encounter Care Teams Road Patcher Relationship Specialty Start Date End Date Daisha Crane MD 230 [place] [address] PCP - General Family Medicine 11/01/18 Lisa Liao, GenevaD 230 [place] [address] Pharmacist Internal Medicine 04/06/23 02/02/25 Alissa Santillan MD [address] [place] [address] Rheumatology 11/09/24 Sharon Guardado [address] 3rd [place] [address] Cardiology 11/13/24 Cedric Lujan MD [address] [place] [address] Orthopaedic Surgery 11/23/24 documented as of this encounter
--- OUTSIDE RECORDS SUMMARY | 2025-02-06 06:11 | XMS_ITS | Encounter Summary ---
Author Organization [facility] Address 75 [facility] 7t [place] [address] Care Team Providers Care Escrow Clerk Name Role Phone Daisha Crane MD Primary Care Provider Lisa Liao PharmD Unavailable Alissa Santillan MD Unavailable Sharon Guardado Unavailable Cedric Lujan MD Unavailable Reason for Visit * Reason Comments Med Refill Encounter Details Date Type Department Care Team (Late st Contact Info) Description 07/21/2023 Refill [facility] MEDICINE 230 [place], [place] [phone] Daisha Crane MD 230 [place], [place] [phone] Pulmonary emphysema, unspecified emphysema type (CMS/HCC) (Primary [...] Info) Description 02/26/2025 11:00 AM EDT Telemedicine [facility] CHC MED & PEDS 505 [place] [address] Loyda Banda, RN 505 [place], [place] 03/07/2025 10:15 AM EDT Office Visit [facility] MEDICINE [address] [place] [address] Daisha Crane MD [address] [place] [address] documented as of this encounter Goals Goal [...] documented as of this encounter Care Teams Escrow Clerk Relationship Specialty Start Date End Date Daisha Crane MD [address] [place] [address] PCP - General Family Medicine 11/01/18 Lisa Liao, PharmD [address] [place] [address] Pharmacist Internal Medicine 04/06/23 02/02/25 Alissa Santillan MD [address] [place] [address] Rheumatology 11/09/24 Sharon Guardado [address] 3rd [place] [address] Cardiology 11/13/24 Cedric Lujan MD [address] [place] [address] Orthopaedic Surgery 11/23/24 documented as of this encounter
--- OUTSIDE RECORDS SUMMARY | 2025-02-06 06:11 | XMS_ITS | Encounter Summary ---
Author Organization [employer] Address 75 [facility] 7t [place] [address] Care Team Providers Care Turn Out Worker Name Role Phone Daisha Crane MD Primary Care Provider +1- [phone] Lisa Liao PharmD Unavailable Alissa Santillan MD Unavailable Sharon Guardado Unavailable Cedric Lujan MD Unavailable Reason for Visit * Reason Onset Date Comments Durable Medical Equipment 08/08/2024 Encounter Details Date Type Department Care Team (Late st Contact Info) Description 08/08/2024 Telephone [facility] MEDICINE 230 [place], [place] [phone] Daisha Crane MD 230 [place], [place] [phone] Durable Medical Equipment Social History Tobacco Use [...] Info) Description 02/26/2025 11:00 AM EDT Telemedicine [facility] CHC MED & PEDS 505 [place] [address] Loyda Banda RN 505 [place] [address] 03/07/2025 10:15 AM EDT Office Visit [facility] MEDICINE 230 [place] [address] Daisha Crane MD 230 [place] [address] documented as of this encounter Goals Goal [...] documented as of this encounter Care Teams Turn Out Worker Relationship Specialty Start Date End Date Daisha Crane MD 230 [place] [address] PCP - General Family Medicine 11/01/18 Lisa Liao PharmD 230 [place] [address] Pharmacist Internal Medicine 04/06/23 02/02/25 Alissa Santillan MD [address] [place] [address] Rheumatology 11/09/24 Sharon Guardado [address] 3rd [place] [address] Cardiology 11/13/24 Cedric Lujan MD [address] [place] [address] Orthopaedic Surgery 11/23/24 documented as of this encounter
--- OUTSIDE RECORDS SUMMARY | 2025-02-06 06:11 | XMS_ITS | Encounter Summary ---
Author Organization [employer] Address 75 [facility] 7t [place] [address] Care Team Providers Care Ring Sorter Name Role Phone Daisha Crane MD Primary Care Provider +- [phone] Lisa Liao PharmD Unavailable +1- [phone] Alissa Santillan MD Unavailable Sharon Guardado Unavailable Cedric Lujan MD Unavailable Encounter Details Date Type Department Care Team (Late st Contact Info) Description 11/18/2023 Telephone [facility] MEDICINE 230 [place], [place] [phone] Daisha Crane MD 230 [place], [place] [phone] Social History Tobacco Use Types Packs/Day Years [...] Upcoming Encounters Date Type Department Care Team ([facility] st Contact Info) Description 02/26/2025 11:00 AM EDT Telemedicine [facility] CHC MED & PEDS 505 [place] [address] Loyda Banda, SO 505 [place] [address] 03/07/2025 10:15 AM EDT Office Visit [facility] MEDICINE 230 [place] [address] Daisha Crane MD 230 [place] [address] documented as of this encounter Goals Goal [...] documented as of this encounter Care Teams Ring Sorter Relationship Specialty Start Date End Date Daisha Crane MD 230 [place] [address] PCP - General Family Medicine 11/01/18 Lisa Liao, GenevaD 230 [place] [address] Pharmacist Internal Medicine 04/06/23 02/02/25 Alissa Santillan MD [address] [place] [address] Rheumatology 11/09/24 Sharon Guardado [address]rd [place] [address] Cardiology 11/13/24 Cedric Lujan MD [address] [place] [address] Orthopaedic Surgery 11/23/24 documented as of this encounter
--- OUTSIDE RECORDS SUMMARY | 2025-02-06 06:11 | XMS_ITS | Encounter Summary ---
Author Organization [employer] [facility] Address 75 [facility] 7t [place] [address] Care Team Providers Care Contour Path Tape Mill Operator Name Role Phone Daisha Crane MD Primary Care Provider +1- [phone] Lisa Lioa PharmD Unavailable lAissa Santillan MD Unavailable Sharon Guardado Unavailable Cedric Lujan MD Unavailable Encounter Details Date Type Department Care Team (Late st Contact Info) Description 10/14/2022 Orders Only [facility] 230 [place], [place] [phone] Daisha Crane MD 230 [place], [place] [phone] Social History Tobacco Use Types Packs/Day Years [...] Info) Description 02/26/2025 11:00 AM EDT Telemedicine [facility] CHC MED & PEDS 505 [place], [place] [phone] Loyda aBnda, RN 505 [place], [place] [phone] 03/07/2025 10:15 AM EDT Office Visit [facility] MEDICINE 230 [place] [address] Daisha Crane MD 230 [place] [address] documented as of this encounter Visit Diagnoses Not on filedocumented in this encounter Care Teams Contour Path Tape Mill Operator Relationship Specialty Start Date End Date Daisha Crane MD 230 [place] [address] PCP - General Family Medicine 11/01/18 Lisa Liao, GenevaD 230 [place] [address] Pharmacist Internal Medicine 04/06/23 02/02/25 Alissa Santillan MD [address] [place] [address] Rheumatology 11/09/24 Sharon Guardado [address] 3rd [place] [address] Cardiology 11/13/24 Cedric Lujan MD [address] [place] [address] Orthopaedic Surgery 11/23/24 documented as of this encounter
--- OUTSIDE RECORDS SUMMARY | 2025-02-06 06:11 | XMS_ITS | Encounter Summary ---
Author Organization [facility] Address 75 [facility] 7t [place] [address] Care Team Providers Care Office Helper Clerical Name Role Phone Daisha Crane MD Primary Care Provider +1- [phone] Lisa Liao PharmD Unavailable +[phone] Alissa Santillan MD Unavailable Sharon Guardado Unavailable Cedric Lujan MD Unavailable Reason for Visit * Reason Onset Date Comments Med Refill 07/07/2023 Encounter Details Date Type Department Care Team (Late st Contact Info) Description 07/07/2023 Telephone [facility] MEDICINE 230 [place], [place] [phone] Daisha Crane MD 230 [place], [place] [phone] Med Refill Social History Tobacco Use Types [...] MG immediate release tablet Please sent to [facility] [place], [place] - [address] [place] [address] documented in this encounter Plan of Treatment Upcoming Encounters Date Type Department Care Team (Late st Contact Info) Description 02/26/2025 11:00 AM EDT Telemedicine [facility] CHC MED & PEDS 505 [place] [address] Loyda Banda, SO 505 [place], [place] [phone] 03/07/2025 10:15 AM EDT Office Visit [facility] MEDICINE 230 [place] [address] Daisha Crane MD [address] [place] [address] documented as of this encounter Goals Goal Patient Goal Type Associated Problems Recent Progress Patient-Stated? Author Blood Pressure < 140/90 Blood Pressure 110/56(2024 9:11 AM EDT) No Lisa Anguiano, PharmD Hemoglobin A1c < 8 Result Component 6.9( 10:06 AM EST) No Lisa Anguiano PharmD documented as of this encounter Visit Diagnoses Not on filedocumented in this encounter Additional Health Concerns Assessment Noted Time PHQ-9 Depression Total Score: 0 11/23/19 23 10:39 AM EST documented as of this encounter Care Teams Office Helper Clerical Relationship Specialty Start Date End Date Daisha Crane MD [address] [place] [phone] PCP - General Family Medicine 11/01/18 Lisa Liao, PharmD [address] [place] [phone] Pharmacist Internal Medicine 04/06/23 02/02/25 Alissa Santillan MD [address] [place] [address] Rheumatology 11/09/24 Sharon Guardado [address] 3rd [place] [address] Cardiology 11/13/24 Cedric Lujan MD [address] [place] [address] Orthopaedic Surgery 11/23/24 documented as of this encounter
--- OUTSIDE RECORDS SUMMARY | 2025-02-06 06:11 | XMS_ITS | Encounter Summary ---
Author Organization [employer] Address 75 [facility] 7t [place] [address] Care Team Providers Care Filer Finish Name Role Phone Daisha Crane MD Primary Care Provider + [phone] Lisa Liao PharmD Unavailable +1- [phone] Alissa Santillan MD Unavailable Sharon Guardado Unavailable Cedric Lujan MD Unavailable Reason for Visit * Reason Comments Med Refill Encounter Details Date Type Department Care Team (Late st Contact Info) Description 02/07/2024 Refill [facility] MEDICINE 230 [place], [place] [phone] Tanika Arenas ANP 230 [place], [place] [phone] Dyslipidemia Social History Tobacco Use Types Packs/Day [...] Upcoming Encounters Date Type Department Care Team ([facility] st Contact Info) Description 02/26/2025 11:00 AM EDT Telemedicine [facility] CHC MED & PEDS 505 [place] [address] Loyda Banda RN 505 [place] [address] 03/07/2025 10:15 AM EDT Office Visit [facility] MEDICINE 230 [place] [address] Daisha Crane MD [address] [place] [address] documented as of this encounter Goals Goal [...] documented as of this encounter Care Teams Filer Finish Relationship Specialty Start Date End Date Daisha Crane MD [address] [place] [address] PCP - General Family Medicine 11/01/18 Lisa Liao, Nidia 230 [facility] [place] [address] Pharmacist Internal Medicine 04/06/23 02/02/25 Alissa Santillan MD [address] [place] [address] Rheumatology 11/09/24 Sharon Guardado [address]rd [place] [address] Cardiology 11/13/24 Cedric Lujan MD [address] [place] [address] Orthopaedic Surgery 11/23/24 documented as of this encounter
--- OUTSIDE RECORDS SUMMARY | 2025-02-06 06:11 | XMS_ITS | Encounter Summary ---
Author Organization [employer] Address 75 [facility] 7t [place] [address] Care Team Providers Care Wood Carving Lathe Operator Name Role Phone Daisha Crane MD Primary Care Provider +1- [phone] Lisa Liao PharmD Unavailable Alissa Santillan MD Unavailable Sharon Guardado Unavailable Cedric Lujan MD Unavailable Reason for Visit * Reason Onset Date Comments Durable Medical Equipment 08/21/2024 Encounter Details Date Type Department Care Team (Late st Contact Info) Description 08/21/2024 Telephone [facility] MEDICINE 230 [place], [place] [phone] Daisha Crane MD 230 [place], [place] [phone] Durable Medical Equipment Social History Tobacco Use [...] 9:48 AM EDT TC from pt and OUTBOUND TELEMARKETER called in states L&C got wrong script . Request was not for pullups , [facility]ing [facility] OUTBOUND TELEMARKETER [phone] documented in this encounter Plan of Treatment Upcoming Encounters Date Type Department Care Team (Late st Contact Info) Description 02/26/2025 11:00 AM EDT Telemedicine [facility] CHC MED & PEDS 505 [place] [address] Loyda Banda RN 505 [place] [address] 03/07/2025 10:15 AM EDT Office Visit [facility] MEDICINE 230 [place], [place] [phone] Daisha Crane MD [address] [place] [address] documented as of this encounter Goals Goal [...] documented as of this encounter Care Teams Wood Carving Lathe Operator Relationship Specialty Start Date End Date Daisha Crane MD 230 [place] [address] PCP - General Family Medicine 11/01/18 Lisa Liao PharmD 230 [place] [address] Pharmacist Internal Medicine 04/06/23 02/02/25 Alissa Santillan MD [address] [place] [address] Rheumatology 11/09/24 Sharon Guardado [address]rd [place] [address] Cardiology 11/13/24 Cedric Lujan MD [address] [place] [address] Orthopaedic Surgery 11/23/24 documented as of this encounter
--- OUTSIDE RECORDS SUMMARY | 2025-02-06 06:11 | XMS_ITS | Encounter Summary ---
Author Organization [facility] Address 75 [facility] 7t [place] [address] Care Team Providers Care Client Support Consultant Name Role Phone Daisha Crane MD Primary Care Provider +- [phone] Lisa Liao PharmD Unavailable Alissa Santillan MD Unavailable Sharon Guardado Unavailable Cedric Lujan MD Unavailable Encounter Details Date Type Department Care Team (Late st Contact Info) Description 11/19/2022 Orders Only [facility] MEDICINE 230 [place] [address] Radha Johnson LPN Social History Tobacco Use [...] Info) Description 02/26/2025 11:00 AM EDT Telemedicine [facility] CHC MED & PEDS 505 [place] [address] Loyda Banda, RN 505 [place] [address] 03/07/2025 10:15 AM EDT Office Visit [facility] MEDICINE 230 [place] [address] Daisha Crane MD 230 [place] [address] documented as of this encounter Visit Diagnoses Not on filedocumented in this encounter Care Teams Client Support Consultant Relationship Specialty Start Date End Date Daisha Crane MD 230 [place] [address] PCP - General Family Medicine 11/01/18 Lisa Liao, GenevaD 230 [place] [address] Pharmacist Internal Medicine 04/06/23 02/02/25 Alissa Santillan MD [address] [place] [address] Rheumatology 11/09/24 Sharon Guardado [address] 3rd [place] [address] Cardiology 11/13/24 Cedric Lujan MD [address] [place] [address] Orthopaedic Surgery 11/23/24 documented as of this encounter
== END 2025-02-06 06:09 | disposition home or self-care (01) ==
LOC: CF 06:08
PROVIDERS: Visit Provider Anesthesiology
DX: Z13.89 Encounter for screening for other disorder (principal)

== ENCOUNTER 2025-02-09 08:09 | Outpatient (AMB) | payer OTHER, SELFPAY ==
--- OUTSIDE RECORDS SUMMARY | 2025-02-09 08:15 | XMS_ITS | Encounter Summary ---
Author Organization [employer] [facility] Address [address] [facility] 7t [place] [address] Care Team Providers Care Autocad Technician Name Role Phone Daisha Crane MD Primary Care Provider +1- [phone] Lisa Liao PharmD Unavailable Alissa Santillan MD Unavailable Sharon Guardado Unavailable Cedric Lujan MD Unavailable Rory Angeles MD Unavailable Reason for Visit * Reason Onset Date Comments Durable Medical Equipment 08/08/2024 Encounter Details Date Type Department Care Team (Late st Contact Info) Description 08/08/2024 Telephone [facility] MEDICINE [address] [place], [place] [phone] Daisha Crane MD 230 [place], [place] [phone] Durable Medical Equipment Social History Tobacco Use [...] the past 12 months, has t he [employer], gas, oil or water company threatened to [...] 02/26/2025 11:00 AM EDT Telemedicine [facility] MED & PEDS 505 [place] [address] Loyda Banda RN 505 [place] [address] 03/07/2025 10:15 AM EDT Office Visit [facility] MEDICINE 230 [place] [address] Daisha Crane MD 230 [place] [address] documented as of this encounter Goals Goal [...] documented as of this encounter Care Teams Autocad Technician Relationship Specialty Start Date End Date Daisha Crane MD 230 [place] [address] PCP - General Family Medicine 11/01/18 Lisa iLao PharmD 230 [place] [address] Pharmacist Internal Medicine 04/06/23 02/02/25 Alissa Santillan MD [address] [place] [address] Rheumatology 11/09/24 Sharon Guardado [address] 3rd [place] [address] Cardiology 11/13/24 Cedric Lujan MD [address] [place] [address] Orthopaedic Surgery 11/23/24 Rory Angeles MD [address] [place] [address] Pain Medicine 02/06/25 documented as of this encounter
--- OUTSIDE RECORDS SUMMARY | 2025-02-09 08:15 | XMS_ITS | Encounter Summary ---
Author Organization [facility] Address [address] [facility] 7t [place] [address] Care Team Providers Care Clean Rice Broker Name Role Phone Daisha Crane MD Primary Care Provider Lisa Liao PharmD Unavailable Alissa Santillan MD Unavailable Sharon Guardado Unavailable Cedric Lujan MD Unavailable Rory Angeles MD Unavailable Encounter Details Date Type Department Care Team (Latest Contact Info) Description 03/10/2019 Abstract [facility] CONVERSIONS Dental, Provider, DDS Social History Tobacco [...] Info) Description 02/26/2025 11:00 AM EDT Telemedicine [facility] CH[facility] MED & PEDS 505 [place], [place] [phone] Loyda Banda, SO 505 [place] [address] 03/07/2025 10:15 AM EDT Office Visit [facility] MEDICINE 230 [place], [place] [phone] Daisha Crane MD 230 [place] [address] documented as of this encounter Visit Diagnoses Not on filedocumented in this encounter Care Teams Clean Rice Broker Relationship Specialty Start Date End Date Daisha Crane MD 230 [place] [address] PCP - General Family Medicine 11/01/18 Lisa Liao, GenevaD 230 [place] [address] Pharmacist Internal Medicine 04/06/23 02/02/25 Alissa Santillan MD [address] [place] [address] Rheumatology 11/09/24 Sharon Guardado [address] 3rd [place] [address] Cardiology 11/13/24 Cedric Lujan MD [address] [place] [address] Orthopaedic Surgery 11/23/24 Rory Angeles MD [address] [place] [address] Pain Medicine 02/06/25 documented as of this encounter
--- OUTSIDE RECORDS SUMMARY | 2025-02-09 08:15 | XMS_ITS | Encounter Summary ---
Author Organization [employer] Address [address] [facility] 7t [place] [address] Care Team Providers Care Physical Medicine Specialist Name Role Phone Daisha Crane MD Primary Care Provider +1- [phone] Lisa Liao PharmD Unavailable Alissa Santillan MD Unavailable Sharon Guardado Unavailable Cedric Lujan MD Unavailable Rory Angeles MD Unavailable Encounter Details Date Type Department Care Team (Late st Contact Info) Description 10/30/2024 Telephone [facility] CHC MED & PEDS [address] [place], [place] [phone] Daisha Crane MD 230 [place], [place] [phone] Social History Tobacco Use Types Packs/Day Years [...] Info) Description 02/26/2025 11:00 AM EDT Telemedicine [facility] CHC MED & PEDS 505 [place] [address] Loyda Banda, SO 505 [place] [address] 03/07/2025 10:15 AM EDT Office Visit [facility] MEDICINE 230 [place] [address] Daisha Crane MD 230 [place] [address] documented as of this encounter Goals Goal [...] documented as of this encounter Care Teams Physical Medicine Specialist Relationship Specialty Start Date End Date Daisha Crane MD 230 [place] [address] PCP - General Family Medicine 11/01/18 Lisa Liao, GenevaD 230 [place] [address] Pharmacist Internal Medicine 04/06/23 02/02/25 Alissa Santillan MD [address] [place] [address] Rheumatology 11/09/24 Sharon Guardado [address] 3rd [place] [address] Cardiology 11/13/24 Cedric Lujan MD [address] [place] [address] Orthopaedic Surgery 11/23/24 Rory Angeles MD [address] [place] [address] Pain Medicine 02/06/25 documented as of this encounter
--- OUTSIDE RECORDS SUMMARY | 2025-02-09 08:15 | XMS_ITS | Encounter Summary ---
Author Organization [employer] Address 75 [facility] 7t [place] [address] Care Team Providers Care Communications Advisor Name Role Phone Daisha Crane MD Primary Care Provider +1- [phone] Alissa Santillan MD Unavailable Sharon Guardado Unavailable Cedric Lujan MD Unavailable Reason for Visit * Reason Comments Med Refill Encounter Details Date Type Department Care Team (Late st Contact Info) Description 02/04/2025 Refill [facility] MEDICINE 230 [place], [place] [phone] Daisha Crane MD 230 [place], [place] [phone] Type 2 diabetes mellitus without complication, unspecified whether care home insulin use ([facility]) Social History Tobacco Use Types Packs/Day Years [...] Info) Description 02/26/2025 11:00 AM EDT Telemedicine [facility] CHC MED & PEDS 505 [place] [address] Loyda Banda, SO 505 [place] [address] 03/07/2025 10:15 AM EDT Office Visit [facility] MEDICINE 230 [place] [address] Daisha Crane MD 230 [place], [place] [phone] documented as of this encounter Goals Goal Patient Goal Type Associated Problems Recent Progress Patient-Stated? Author Blood Pressure < 140/90 Blood Pressure 110/56(2024 9:11 AM EDT) No Lisa Anguiano PharmAj Hemoglobin A1c < 8 Result Component 6.9( 10:06 AM EST) No Lisa Anguiano PharmAj documented as of this encounter Visit Diagnoses Diagnosis Type 2 diabetes mellitus without complication, unspecified whether care home insulin use ([facility]) documented in this encounter Additional Health Concerns Assessment Noted Time PHQ-9 Depression Total Score: 0 04/06/20 24 9:11 AM EDT documented as of this encounter Care Teams Communications Advisor Relationship Specialty Start Date End Date Daisha Crane MD 230 [place] [address] PCP - General Family Medicine 11/01/18 Alissa Santillan MD [address] [place] [address] Rheumatology 11/09/24 Sharon Guardado [address] 3rd [place] [address] Cardiology 11/13/24 Cedric Lujan MD [address] [place] [address] Orthopaedic Surgery 11/23/24 documented as of this encounter
--- OUTSIDE RECORDS SUMMARY | 2025-02-09 08:15 | XMS_ITS | Encounter Summary ---
Author Organization [employer] Address [address] [facility] 7t [place] [address] Care Team Providers Care Retail Manager Name Role Phone Daisha Crane MD Primary Care Provider Lisa Liao PharmD Unavailable [phone] Alissa Santillan MD Unavailable Sharon Guardado Unavailable Cedric Lujan MD Unavailable Rory Angeles MD Unavailable Reason for Visit * Reason Comments Med Refill Encounter Details Date Type Department Care Team (Late st Contact Info) Description 11/21/2024 Refill [facility] MED [facility] PEDS [address] [place], [place] [phone] Cara Whitfield MD 230 [place], [place] [phone] Pain Social History Tobacco Use Types Packs/Day [...] Info) Description 02/26/2025 11:00 AM EDT Telemedicine [facility] MED & PEDS 505 [place] [address] Loyda Banda, RN 505 [place] [address] 03/07/2025 10:15 AM EDT Office Visit [facility] 230 [place] [address] Daisha Crane MD 230 [place] [address] documented as of this encounter Goals Goal [...] as of this encounter Care Teams Retail Manager Relationship Specialty Start Date End Date Daisha Crane MD 230 [place] [address] PCP - General Family Medicine 11/01/18 Lisa Liao, GenevaD 230 [place] [address] Pharmacist Internal Medicine 04/06/23 02/02/25 Alissa Santillan MD [address] [place] [address] Rheumatology 11/09/24 Sharon Guardado [address] 3rd [place] [address] Cardiology 11/13/24 Cedric Lujan MD [address] [place] [address] Orthopaedic Surgery 11/23/24 Rory Angeles MD [address] [place] [address] Pain Medicine 02/06/25 documented as of this encounter
--- OUTSIDE RECORDS SUMMARY | 2025-02-09 08:15 | XMS_ITS | Encounter Summary ---
Author Organization [employer] [facility] Address [address] [facility] 7t [place] [address] Care Team Providers Care Environmental Remediation Specialist Name Role Phone Daisha Crane MD Primary Care Provider +1- [phone] Lisa Liao PharmD Unavailable Alissa Santillan MD Unavailable Sharon Guardado Unavailable Cedric Lujan MD Unavailable Rory Angeles MD Unavailable Reason for Visit * Reason Comments Med Refill Encounter Details Date Type Department Care Team (Late st Contact Info) Description 07/21/2023 Refill [facility] MEDICINE 230 [place], [place] [phone] Daisha Crane MD 230 [place], [place] [phone] Pulmonary emphysema, unspecified emphysema type (CMS/HCC) (Primary [...] Info) Description 02/26/2025 11:00 AM EDT Telemedicine [facility] CH[facility] MED & PEDS 505 [place] [address] Loyda Banda, RN 505 [place], [place] 03/07/2025 10:15 AM EDT Office Visit [facility] MEDICINE 230 [place] [address] Daisha Crane MD 230 [place], [place] documented as of this encounter Goals Goal [...] documented as of this encounter Care Teams Environmental Remediation Specialist Relationship Specialty Start Date End Date Daisha Crane MD [address] [place] [address] PCP - General Family Medicine 11/01/18 Lisa Liao, PharmD [address] [place] [address] Pharmacist Internal Medicine 04/06/23 02/02/25 Alissa Santillan MD [address] [place] [address] Rheumatology 11/09/24 Sharon Guardado [address] 3rd [place] [address] Cardiology 11/13/24 Cedric Lujan MD [address] [place] [address] Orthopaedic Surgery 11/23/24 Rory Angeles MD [address] [place] [address] Pain Medicine 02/06/25 documented as of this encounter
--- OUTSIDE RECORDS SUMMARY | 2025-02-09 08:15 | XMS_ITS | Encounter Summary ---
Author Organization [employer] [facility] Address [address] [facility] 7t [place] [address] Care Team Providers Care Sanitizer Name Role Phone Daisha Crane MD Primary Care Provider +1- [phone] Lisa Liao PharmD Unavailable Alissa Santillan MD Unavailable Sharon Guardado Unavailable Cedric Lujan MD Unavailable Rory Angeles MD Unavailable Reason for Visit * Reason Onset Date Comments Med Refill 06/05/2024 Encounter Details Date Type Department Care Team (Late st Contact Info) Description 06/05/2024 Telephone [facility] MEDICINE 230 [place], [place] [phone] Daisha Crane MD 230 [place], [place] [phone] Med Refill Social History Tobacco Use Types [...] the past 12 months, has t he [employer], gas, oil or water [employer] threatened to shut off services in your [...] immediate release tablet To be sent to: [facility] - [place], [place] - [address] [place] [address] documented in this encounter Plan of Treatment Upcoming Encounters Date Type Department Care Team ([facility] st Contact Info) Description 02/26/2025 11:00 AM EDT Telemedicine [facility] CHC MED & PEDS 505 [place] [address] Loyda Banda RN 505 [place] [address] 03/07/2025 10:15 AM EDT Office Visit [facility] MEDICINE 230 [place] [address] Daisha Crane MD 230 [place] [address] documented as of this encounter Goals Goal [...] documented as of this encounter Care Teams Sanitizer Relationship Specialty Start Date End Date Daisha Crane MD 230 [place] [address] PCP - General Family Medicine 11/01/18 Lisa Liao PharmD [address] [place] [address] Pharmacist Internal Medicine 04/06/23 02/02/25 Alissa Santillan MD [address] [place] [address] Rheumatology 11/09/24 Sharon Guardado [address] 3rd [place] [address] Cardiology 11/13/24 Cedric Lujan MD [address] [place] [address] Orthopaedic Surgery 11/23/24 Rory Angeles MD [address] [place] [address] Pain Medicine 02/06/25 documented as of this encounter
--- OUTSIDE RECORDS SUMMARY | 2025-02-09 08:15 | XMS_ITS | Encounter Summary ---
Author Organization [facility] Address [address] [facility] 7t [place] [address] Care Team Providers Care Potato Chip Maker Name Role Phone Daisha Crane MD Primary Care Provider +1- [phone] Lisa Liao PharmD Unavailable Alissa Santillan MD Unavailable Sharon Guardado Unavailable Cedric Lujan MD Unavailable Rory Angeles MD Unavailable Reason for Visit * Reason Onset Date Comments Durable Medical Equipment 08/21/2024 Encounter Details Date Type Department Care Team (Late st Contact Info) Description 08/21/2024 Telephone [facility] MEDICINE 230 [place], [place] [phone] Daisha Crane MD 230 [place], [place] [phone] Durable Medical Equipment Social History Tobacco Use [...] the past 12 months, has t he [employer], gas, oil or water [employer] threatened to shut off services in your [...] 9:48 AM EDT TC from pt and CAR SANDER called in states L&C got wrong script . Request was not for pullups , pt wasrequesting Nilo CAR SANDER [phone] documented in this encounter Plan of Treatment Upcoming Encounters Date Type Department Care Team (Late st Contact Info) Description 02/26/2025 11:00 AM EDT Telemedicine [facility] CHC MED & PEDS 505 [place] [address] Loyda Banda RN [address] [place] [address] 03/07/2025 10:15 AM EDT Office Visit [facility] MEDICINE 230 [place] [address] Daisha Crane MD 230 [place] [address] documented as of this encounter Goals Goal [...] documented as of this encounter Care Teams Potato Chip Maker Relationship Specialty Start Date End Date Daisha Crane MD 230 [place] [address] PCP - General Family Medicine 11/01/18 Lisa Liao PharmD 230 [place] [address] Pharmacist Internal Medicine 04/06/23 02/02/25 Alissa Santillan MD [address] [place] [address] Rheumatology 11/09/24 Sharon Guardado [address] 3rd [place] [address] Cardiology 11/13/24 Cedric Lujan MD [address] [place] [address] Orthopaedic Surgery 11/23/24 Rory Angeles MD [address] [place] [address] Pain Medicine 02/06/25 documented as of this encounter
--- OUTSIDE RECORDS SUMMARY | 2025-02-09 08:15 | XMS_ITS | Encounter Summary ---
Author Organization [employer] [facility] Address [address] [facility] 7t [place] [address] Care Team Providers Care Evaluation Specialist Name Role Phone Daisha Crane MD Primary Care Provider +1- [phone] Lisa Liao PharmD Unavailable Alissa Santillan MD Unavailable Sharon Guardado Unavailable Cedric Lujan MD Unavailable Rory Angeles MD Unavailable Reason for Visit * Reason Onset Date Comments Med Refill 07/04/2024 Encounter Details Date Type Department Care Team (Late st Contact Info) Description 07/04/2024 Telephone [facility] MEDICINE 230 [place], [place] [phone] Daisha Crane MD 230 [place], [place] [phone] Med Refill Social History Tobacco Use Types [...] the past 12 months, has t he [employer], gas, oil or water [employer] threatened to shut off services in your [...] immediate release tablet To be sent to: [facility] - [place], [place] - [address] [place] [address] documented in this encounter Plan of Treatment Upcoming Encounters Date Type Department Care Team ([facility] st Contact Info) Description 02/26/2025 11:00 AM EDT Telemedicine [facility] MED & PEDS 505 [place] [address] Loyda Banda RN 505 [place] [address] 03/07/2025 10:15 AM EDT Office Visit [facility] MEDICINE 230 [place] [address] Daisha Crane MD 230 [place] [address] documented as of this encounter Goals Goal [...] documented as of this encounter Care Teams Evaluation Specialist Relationship Specialty Start Date End Date Daisha Crane MD 230 [place] [address] PCP - General Family Medicine 11/01/18 Lisa Liao PharmD [address] [place] [address] Pharmacist Internal Medicine 04/06/23 02/02/25 Alissa Santillan MD [address] [place] [address] Rheumatology 11/09/24 Sharon Guardado [address] 3rd [place] [address] Cardiology 11/13/24 Cedric Lujan MD [address] [place] [address] Orthopaedic Surgery 11/23/24 Rory Angeles MD [address] [place] [address] Pain Medicine 02/06/25 documented as of this encounter
--- OUTSIDE RECORDS SUMMARY | 2025-02-09 08:15 | XMS_ITS | Encounter Summary ---
Author Organization [employer] [facility] Address [address] [facility] 7t [place] [address] Care Team Providers Care Die Attaching Machine Tender Name Role Phone Daisha Crane MD Primary Care Provider +1- [phone] Lisa Liao PharmD Unavailable [phone] Alissa Santillan MD Unavailable Sharon Guardado Unavailable Cedric Lujan MD Unavailable Rory Angeles MD Unavailable Reason for Visit * Reason Onset Date Comments Med Refill 07/07/2023 Encounter Details Date Type Department Care Team (Late st Contact Info) Description 07/07/2023 Telephone [facility] MEDICINE 230 [place], [place] [phone] Daisha Crane MD 230 [place], [place] [phone] Med Refill Social History Tobacco Use Types [...] MG immediate release tablet Please sent to [facility] - [place], [place] - [address] [place] [address] documented in this encounter Plan of Treatment Upcoming Encounters Date Type Department Care Team (Late st Contact Info) Description 02/26/2025 11:00 AM EDT Telemedicine [facility] MED & PEDS 505 [place] [address] Loyda Banda RN 505 [place], [place] 03/07/2025 10:15 AM EDT Office Visit [facility] MEDICINE 230 [place] [address] Daisha Crane MD 230 [place] [address] documented as of this encounter Goals Goal [...] as of this encounter Care Teams Die Attaching Machine Tender Relationship Specialty Start Date End Date Daisha Crane MD [address] [place] [address] PCP - General Family Medicine 11/01/18 Lisa Liao, PharmD [address] [place] [address] Pharmacist Internal Medicine 04/06/23 02/02/25 Alissa Santillan MD [address] [place] [address] Rheumatology 11/09/24 Sharon Guardado [address]rd [place] [address] Cardiology 11/13/24 Cedric Lujan MD [address] [place] [address] Orthopaedic Surgery 11/23/24 Rory Angeles MD [address] [place] [address] Pain Medicine 02/06/25 documented as of this encounter
--- OUTSIDE RECORDS SUMMARY | 2025-02-09 08:15 | XMS_ITS | Clinical Summary ---
Author Organization [employer] Address [address] [facility] 7[address] [place] [address] Care Team Providers Care Hand Clerical Verifier Name Role Phone Daisha Crane MD Primary Care Provider [phone] Alissa Santillan MD Unavailable Sharon Guardado Unavailable Cedric Lujan MD Unavailable Rory Angeles MD Unavailable Allergies Active Allergy Reactions Criticality [...] 023 Active omeprazole (PriLOSEC) [address] Burkett ons:Gastroesoph ageal reflux disease without esophagitis TAKE 1 CAPSULE ON PACKAGE EVERY MORNING BEFORE A MEAL 90 capsule 3 024 Active TRUEplus Lancets 33G miscIndications :Type 2 diabetes mellitus without complication, without long-term current use of insulin ([facility]) Test daily blood glucose 100 each 11 06/06/2 024 Active folic acid (Folvite) 1 MG tabletIndicatio ns:Rheumatoid arthritis involving multiple sites with positive rheumatoid factor (CMS/HCC) Take 1 tablet (1,000 mcg) by mouth in the morning. 90 tablet 3 Active metFORMIN XR (Glucophage-XR) 500 MG 24 hr tabletIndicatio ns:Type 2 diabetes mellitus without complication, without long-term current use of insulin (CMS/HCC) Take 1 tablet by mouth twice daily. Do not crush, chew, or split. 180 tablet 3 Active melatonin 3 MG tabletIndicatio ns:Primary insomnia [...] and with evening meal. 360 capsule 3 Active hydroxychloroqu ine (Plaquenil) 200 MG tabletIndicatio ns:Rheumatoid arthritis involving multiple sites with positive rheumatoid factor (CMS/HCC) TAKE 1 TABLET BY MOUTH TWICE DAILY ON ON WEDNESDAY THROUGH WEDNESDAY OF EACH WEEK AND TAKE 1 TABLET BY MOUTH EVERY DAY ON WEDNESDAY AND Wednesday Active clotrimazole (Lotrimin) 1 % cream APPLY [...] involving multiple sites with positive rheumatoid factor ([facility]) FOR SUSPECTED OPIOID OVERDOSE. SPRAY 0.1mL IN [...] diabetes mellitus without complication, unspecified whether long wall shear operator insulin use ([facility]) TEST BLOOD SUGAR TWICE DAILY 50 strip 11 025 Active prednisoLONE acetate (Pred-Forte) 1 % ophthalmic suspension INSTILL 1 DROP IN THE AFFECTED EYE FOUR TIMES DAILY. START AFTER PROCEDURE AND USE FOR 4 DAYS DIRECTED THEN STOP 025 Active FREESTYLE LITE test stripIndication s:Type 2 diabetes mellitus without complication, unspecified whether snf insulin use ([facility]) TEST BLOOD SUGAR TWICE DAILY 50 strip 11 024 2024 Discontinued albuterol (Ventolin HFA) 108 [...] be different from the original. Enrolled in 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 He would like referral to [facility] , new referral placed 09/04/24 Assessment & Plan (09/04/2024 4:56 PM EST): -referral placed to Podiatry 04/06/[address] Daniels, he was not happy with with visit. He would like referral to [facility] , new referral placed 09/04/24 Assessment & Plan (04/06/2024 9:55 AM EDT): -referral placed to Podiatry 04/06/2024 Other specified health status 06/03/2023 Overview (09/04/2024): -next physical exam due after 09/04/2025 -eye care facilitated by [facility] -dental home is [facility] in [place]. -healthcare Proxy completed and filed 04/06/2024. Assessment & Plan (09/04/2024 5:02 PM EST): -next physical exam due after 09/04/2025 -eye care facilitated by [facility] -dental home is [facility] in [place]. -healthcare Proxy completed and filed 04/06/2024. Assessment & Plan (04/06/2024 9:51 AM EDT): -next physical exam due after 06/04/2024. -eye care facilitated by [facility]. -dental home is [facility] [place]. -healthcare Proxy completed and filed 04/06/2024. Assessment & Plan (06/04/2023 9:45 AM EDT): -next physical exam due after 06/04/2024. -eye care facilitated by [facility]. -dental home is [facility] [place]. 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 Seen 01/14/25. -Hx of dilated [...] (09/04/2024 4:56 PM EST): Followed by Sharon AREVALOC for [facility]. Seen 05/30/24 -Hx of dilated [...] valve 04/06/2023 Overview (11/13/2024): -Followed by Sharon AREVALOC for [facility]. -Known hx of Bicuspid aortic valve without stenosis or regurgitation. Followed by echocardiograms. Last echo 08/25/2023 shows mild calcification of the aortic valve, no regurgitation or stenosis. Repeat echo ordered 2023. -Sharon Guardado NP-C for [facility] 11/2024 Prior notes indicate a [...] Overview (05/31/2024): Followed by Sharon LEWIS for [facility] 05/30/24. History of leg edema [...] for September 2024. GERD (gastroesophageal reflux disease) group home systemic steroid user 04/06/2023 Osteoporosis 04/06/2023 Overview [...] as pharmacomtherapy, [facility] smoking cessation group, and [facility] pharmacy smoking cessation clinic Discussed USPSTF [...] as pharmacomtherapy, [facility] smoking cessation group, and [facility] pharmacy smoking cessation clinic Discussed USPSTF [...] as pharmacomtherapy, [facility] smoking cessation group, and [facility] pharmacy smoking cessation clinic Discussed USPSTF [...] rheumatoid factor 11/20/2022 Overview (11/09/2024): Seen by art specialist Dr. Minnie Santillan 05/23/24 -On Actemra 162 [...] Plan (09/04/2024 5:00 PM EST): Seen by art specialist Dr. Minnie Santillan 05/23/24 -On Actemra 162 [...] Plan (04/06/2024 9:51 AM EDT): Followed by art specialist. Per note 11/18/23:On Actemra 162 mg every [...] the right ECU swelling does not improve Sanitary Engineer would like to restart hydroxychloroquine, will refer patient to Ophthalmology for a baseline hydroxychloroquine screening. If patient is cleared. Will start hydroxychloroquine Continue Rasuvo 25 mg weekly + Actemra every other week. Chest CTA 10/2022 showed no evidence of ILD T-spot and Hepatitis panel -ve 11/2023,. Labs before next visit in 3 months via rheumatology Seen by art specialist Dr. Minnie Santillan 02/23/24 -On Actemra 162 [...] Plan (06/04/2023 9:39 AM EDT): -Followed by art specialist Dr. Fisher. -Currently on prednisone 2 mg daily -med rec to make sure we have correct meds on file -Continue Oxycodone 5mg BID as needed for pain -Did not tolerate Methotrexate, then Leflunomide 20mg daily but then d/c due to rash Assessment & Plan (11/20/2022 10:23 AM EST): -Followed by art specialist Dr. Fisher. -Currently on prednisone 2 mg [...] dilatation measuring 4cm and ascending aorta 4.3cm Goods Layer Nanette Leonard seen in April 2022. Followed by Sharon LEWIS for [facility] 05/30/24. History of leg edema [...] planned for September 2024. -Sharon LEWIS for [facility] 11/2024 Thoracic aortic ectasia Category: [...] dilatation measuring 4cm and ascending aorta 4.3cm Goods Layer Nanette Leonard seen in April 2022. Followed by Sharon LEWIS for [facility] 05/30/24. History of leg edema [...] dilatation measuring 4cm and ascending aorta 4.3cm Goods Layer Nanette Leonard seen in April 2022. Assessment [...] dilatation measuring 4cm and ascending aorta 4.3cm Goods Layer Nanette Leonard seen in April 2022. Assessment [...] dilatation measuring 4cm and ascending aorta 4.3cm Goods Layer Nanette Leonard seen in April 2022. Currently [...] Plan (11/20/2022 10:22 AM EST): - PFTS 2010 revealed moderate severe obstructive [...] -Vascepa 2 grams twice daily started by [facility] 05/22/24 Assessment & Plan (09/04/2024 5:03 PM EST): Lab Results Component Value Date CHOL 115 02/16/2024 CHOL 155 06/17/2023 CHOL 177 11/16/2022 TRIG 205 (H) 02/16/2024 TRIG 166 06/17/2023 TRIG 168 11/16/2022 HDL 41 02/16/2024 HDL 55 06/17/2023 HDL 69 11/16/2022 LDLCHOLCAL 33 02/16/2024 LDLCHOLCAL 67 06/17/2023 LDLCHOLCAL 75 11/16/2022 -continue lifestyle modification -Vascepa 2 grams twice daily started by [facility] 05/22/24 Assessment & Plan (04/06/2024 9:52 AM [...] agreeable with plan to be transported to [facility] via ambulance . Case discussed with provider at [facility] ER Cutaneous skin tags 05/18/2023 03/30/20 24 [...] Type Department Care Team Description 02/04/[address] [facility] [address] [place] [address] Daisha Crane MD Type 2 diabetes mellitus without complication, unspecified whether long wall shear operator insulin use ([facility]) 02/02/2025 Travel 01/23/[address] [facility] [address] [place] [address] Daisha Crane MD Pain 01/18/[address] [facility] [address] [place] [address] Daisha Crane MD Mild intermittent asthma without complication 01/17/[address] [facility] [address] [place] [phone] Cara Whitfield MD Vitamin D deficiency 01/09/[address] [facility] [address] [place] [phone] Daisha Crane MD Rheumatoid arthritis involving multiple sites with positive rheumatoid factor ([facility]) 01/08/[address] [facility] [address] [place] [address] Daisha Crane MD Pain 01/02/2025 Orders Only GENERIC EXTERNAL DATA DEPARTMENT Provider, Generic External Data 12/20/2024 Orders Only [facility] External Provider, [facility] Heart murmur (Primary Dx) 12/15/2024 9:30 AM EST Clinical Support [facility] [address] [place] [phone] Loyda Banda, bag loader right shoulder pain 12/15/[address] [facility] [address] [place] [phone] Daisha Crane MD May Recalls 12/15/2024 Refill [facility] [address] [place] [address] Loyda Banda, RN Pain 12/15/2024 Travel 12/04/[address] [facility] [address] [place] [address] Daisha Crane MD Referral 11/26/[address] [facility] [address] [place] [address] Cara Whitfield MD Constipation, unspecified constipation type 11/26/2024 Refill [facility] [address] [place] [address] Daisha Crane MD Constipation, unspecified constipation type 11/21/[address] [facility] [address] [place] [address] Daisha Crane MD Simple chronic bronchitis ([facility]) 11/21/[address] [facility] [address] [place] [address] Cara Whitfield MD Pain 11/21/[address] [facility] [address] [place] [address] Daisha Crane MD Pain 11/13/2024 Travel from [...] [facility] [address] [place] [address] Loyda Banda, RN [address] [place] [address] 03/07/2025 10:15 AM EDT Office Visit [facility] [address] [place] [address] Daisha Crane MD [address] [place], [place] [phone] Health Maintenance Due Date Last Done Comments [...] diabetes mellitus without complication, unspecified whether long wall shear operator insulin use (CMS/HCC) POCT GLYCATED HEMOGLOBIN, TOTAL Routine 09/04/2024 10:06 AM EST Type 2 diabetes mellitus without complication, unspecified whether long wall shear operator insulin use (CMS/HCC) HEPATITIS PANEL, GENERAL Routine 11/11/2023 10:39 AM EST HM COLONOSCOPY Routine 12/21/2020 from Last 3 Months or Most Recently Relevant to Health Maintenance Results * CTA Chest w/ and w/o Contrast (01/02/2025 9:04 AM EST) Anatomical Region Laterality Modality Body, Chest Computed Tomogra phy 01/02/2025 9:04 AM EST Narrative 01/02/2025 3:42 PM EST ? [facility] ?[address] ?[place] [address] ? CT Scan Report ? Signed ? Patient: Patrice Jenkins ?MR#: [id number] ?? [id number] ? : 1945 ?Acct:[id number] ? Age/Sex: 79 / M ?ADM Date: 03/04/25 ? Loc: HO.CT ? Attending Dr: Sharon LEWIS ? Ordering Physician: Sharon Guardado ?? Date of Service: 01/02/25 ?? Procedure(s): CT angio chest aorta ?? Accession Number(s): [id number] ? cc: Daisha Crane MD; Sharon Guardado ? Report Number: ?? [id number]: Total DLP = ??151.00 mGy-cm ?? EXAMINATION: [...] ?? EST RP ? Dictated By: ?Bishnu Luna MD ? Signed By: ?<Electronically signed by Bishnu Vieyra MD in OV> ? 01/02/25 1539 ? DD/ 0904 ? TD/TT: 01/02/25 0930 ? Electrical Instrument Maker: ? Procedure Note Donfrancoter, Image - 01/02/[address] [address] [address] Scan Report Signed Patient: Patrice JenkinsMR#: [id number] : 7Acct:[id number] Age/Sex: 79 / MADM Date: 01/02/25 Loc: HO.CT Attending Dr: Sharon LEWIS Ordering Physician: Sharon Guardado Date of Service: 01/02/25 Procedure(s): CT angio chest aorta Accession Number(s): [id number] cc: Daisha Crane MD; Sharon Guardado Report Number: [id number]: Total DLP = 151.00 mGy-cm EXAMINATION: CT [...] 01/02/25 1539 DD/ 0904 TD/TT: 01/02/25 0930 Electrical Instrument Maker: [facility] External Provider IMG CT PROCEDURES Final Result * POCT Creatinine GFR (01/02/2025 9:03 AM EST) POCT Creatinine 0.9 0.5 - 1.4 mg/dL [facility] GFR POC >60 [facility] Comment:Chronic Kidney Disea se: Estimated GFR < 60 mL/min/1.25z0Pjhyqa Kidney Disease: Estimated GFR < 15 mL/min/1.73m2 01/02/2025 9:03 AM EST 01/02/2025 12:48 PM EST Narrative [facility] - 01/02/2025 12:50 PM EST [id number] Generic External Data Provider LAB POINT OF CARE TEST DOCKED DEVICE ORDERABLES Final Result [facility] [address] [place] [address] [phone] * Stress test with myocardial perfusion (12/20/2024 8:16 AM EST) 12/20/2024 8:16 AM EST Narrative [facility] - 12/24/2024 2:57 PM EST ? [facility] ?[address] ?[place] [address] ?Nuclear Medicine Report ? Signed ? Patient: Patrice Jenkins ?MR#: [id number] ?? [id number] ? : 1945 ?Acct:[id number] ? Age/Sex: 79 / M ?ADM Date: 12/20/24 ? Loc: HO.CARD ? Attending Dr: Sharon LEWIS ? Ordering Physician: Sharon Guardado ?? Date of Service: 12/20/24 ?? Procedure(s): NM cardiolite stress test ?? Accession Number(s): [id number] ? cc: Daisha Crane MD; Sharon Guardado [...] DD/ 0816 ? TD/TT: 12/21/24 1215 ? Electrical Instrument Maker: ? Procedure Note Radha, Image - 12/24/2024 [place] [address] Nuclear Medicine Report Signed Patient: Patrice JenkinsMR#: [id number] : 1945cct:[id number] Age/Sex: 79 / MADM Date: 12/20/24 Loc: VELVET Attending Dr: Sharon LEWIS Ordering Physician: Sharon Guardado Date of Service: 12/20/24 Procedure(s): NM cardiolite stress test Accession Number(s): [id number] cc: Daisha Crane MD; Sharon Guardado Lexiscan [...] 12/24/24 1454 DD/ 0816 TD/TT: 12/21/24 1215 Electrical Instrument Maker: us [facility] External Provider CV STRE SS PROCEDURES Final Result [facility] [address] [place] [phone] * POCT SAUNDRA-14 Urine Drug Screen (12/15/2024 10:01 AM EST) Oxycodone Screen, Urine Positive Urine Urine specimen obtained by clean catch procedure / Unknown 12/15/2024 10:01 AM EST Narrative Loyda Banda RN - 12/15/2024 10:01 AM EST .UTOX cup Lot#[id number] Exp. 06/20/26 Internal Pass Control us Daisha Crane MD POINT OF CARE TEST ENTER/E DIT ORDERABLES Final Result * US ABDOMINAL AORTIC ANEURYSM (12/01/2024 8:37 AM EST) Anatomical Region Laterality Modality Abdomen Ultrasound 12/01/2024 8:37 AM EST Narrative 12/01/2024 9:07 AM EST ? [facility] ?[address] ?[place] [address] ? Ultrasound Report ? Signed ? Patient: Patrice Jenkins ?MR#: [id number] ?? [id number] ? : 1945 ?Acct:[id number] ? Age/Sex: 79 / M ?ADM Date: 12/01/24 ? Loc: HO.US ? Attending Dr: Sharon LEWIS ? Ordering Physician: Sharon Guardado ?? Date of Service: 12/01/24 ?? Procedure(s): US abdominal aortic aneurysm ?? Accession Number(s): [id number] ? cc: Daisha Crane MD; Sharon Guardado [...] DD/ 0837 ? TD/TT: 12/01/24 0842 ? Electrical Instrument Maker: ? Procedure Note Donfrancoter, Image - 12/01/2024 [place] [address] Ultrasound Report Signed Patient: Patrice JenkinsMR#: [id number] : 7Acct:[id number] Age/Sex: 79 / MADM Date: 12/01/24 Loc: HO.US Attending Dr: Sharon LEWIS Ordering Physician: Sharon Guardado Date of Service: 12/01/24 Procedure(s): US abdominal aortic aneurysm Accession Number(s): [id number] cc: Daisha Crane MD; Sharon Guardado EXAMINATION: [...] MD in OV> 12/01/2404 DD/ TD/TT: 12/01/24841 Electrical Instrument Maker: [facility] External Provider IMG US PROCEDURES Final Result * (ABNORMAL) Lipid Panel, Standard (10/09/2024 8:05 AM EST) Triglycerides 122 <150 mg/dL [facility] Comment:Desirable Triglyceri de: less than 150 mg/dLBorderline High Triglyceride 150-199 mg/dLHigh Triglyceride: 200-499 mg/dLVery High Triglyceride: greater than or equal to 5OO mg/dL Cholesterol 104 <200 mg/dL [facility] Comment:Desirable Cholestero l: less than 200 mg/dLBorderline High Cholesterol: 200-239 mg/dLHigh Cholesterol: greater than 239 mg/dL LDL Cholesterol Calculated 43 <100 mg/dL [facility] Comment:Desirable LDL: less than 100 mg/dLNear Optimal/Above Optimal LDL: 110- 129 mg/dLBorderline High LDL: 130-159 mg/dLHigh LDL: 160-189 mg/dLVery High LDL: greater than or equal to 190 mg/dL HDL Cholesterol 37(L) >40 mg/dL [facility] Comment:Desirable HDL: great er than 40 mg/dL Note: This HDL assay may give artificially low results in patients with liver disease. Blood Venous blood specimen / Unknown 10/09/2024 8:05 AM EST 10/09/2024 11:50 AM EST us Daisha Crane MD LAB BLOOD ORDERABLES Final Result [facility] [address] [place] [phone] * Albumin, Random Urine W/Creatinine (09/15/2024 8:03 AM EST) Creatinine, Urine 107.16 mg/dL [facility] Microalbumin Urine 20.0 mg/L [facility] Microalbum Creatinine Ratio Ur 18.6 <30 ug/mg cr [facility] Comment:Albumin/Creatinine R atio Reference Ranges: Normal: < 30 ug/mg creatinine Microalbuminuria: 30 - 300 ug/mg creatinineClinical Albuminuria: > 300 ug/mg creatinine Urine 09/15/2024 8:03 AM EST 09/15/2024 11:09 AM EST Daisha Crane MD LAB URINE ORDERABLES Final Result [facility] [address] [place] [address] [phone] * (ABNORMAL) POCT HGB A1C (09/04/2024 10:06 AM EST) Hemoglobin A1C 6.9(A) 4.0 - 6.0 % QC Media Lot # [id number] Lot# Expiration Date Blood 09/04/2024 10:0 6 AM EST Daisha Crane MD POINT OF CARE TEST ENTER/E DIT ORDERABLES Final Result * Hepatitis Panel, General (11/11/2023 10:39 AM EST) Hepatitis A IgM Nonreactive Nonreactive [facility] Comment:IgM antibodies to WAGONER V not detected; does not exclude earlyacute or recovered HAV infection. ~Hepatitis B Surface Antibody NONREACTIVE Nonreactive [facility] Comment:Nonreactive: < 8.00 mIU/mL Hepatitis B Core Antibody Nonreactive Nonreactive [facility] Hepatitis C Antibody Nonreactive Nonreactive [facility] Comment:Antibodies to HCV no t detected; does not exclude early acuteHCV infection. Hepatitis B Surface Ag Negative Negative [facility] 11/11/2023 10:3 9 AM EST 11/11/2023 10:39 AM EST Generic External Data Provider LAB BLOOD ORDERAB LES Final Result [facility] [address] [place] [address] [phone] * Hm Colonoscopy (12/21/2020) Colonoscopy tubular adenoma with Dr. 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 Advance Directives and Living Will 04/06/2024 Health Care Proxy 04/06/24 Care Teams Hand Clerical Verifier Relationship Specialty Start Date End Date [place], [place] Daisha [address] [place] [address] PCP - General Family Medicine 11/01/18 Alissa Santillan MD [address] [place] [address] Rheumatology 11/09/24 Sharon Guardado [address] 3[address] Floor [place] [address] Cardiology 11/13/24 Cedric Lujan MD [address] [place] [address] Orthopaedic Surgery 11/23/24 Rory Angeles MD [address] [place] [address] Pain Medicine 02/06/25
--- OUTSIDE RECORDS SUMMARY | 2025-02-09 08:16 | XMS_ITS | Encounter Summary ---
Author Organization [employer] [facility] Address [address] [facility] 7t [place] [address] Care Team Providers Care Aircraft Engine Installer Name Role Phone Daisha Crane MD Primary Care Provider [phone] Lisa Liao PharmD Unavailable Alissa Santillan MD Unavailable Sharon Guardado Unavailable Cedric Lujan MD Unavailable Rory Angeles MD Unavailable Encounter Details Date Type Department Care Team (Late st Contact Info) Description 10/28/2022 Telephone [facility] MED[facility] [address] [place], [place] [phone] Daisha Crane MD [address], [place] [phone] Social History Tobacco Use Types Packs/Day Years [...] Info) Description 02/26/2025 11:00 AM EDT Telemedicine [facility] [address] [place], [place] [phone] Loyda Banda, SO [address] [place] [address] 03/07/2025 10:15 AM EDT Office Visit [facility] [address] [place] [address] Daisha Crane MD [address] [place] [address] documented as of this encounter Visit Diagnoses Not on filedocumented in this encounter Care Teams Aircraft Engine Installer Relationship Specialty Start Date End Date Daisha Crane MD [address] [place] [address] PCP - General Family Medicine 11/01/18 Lisa Liao, PharmD [address] [place] [phone] Pharmacist Internal Medicine 04/06/23 02/02/25 Alissa Santillan MD [address] [place] [address] Rheumatology 11/09/24 Sharon Guardado [address] [place] [address] Cardiology 11/13/24 Cedric Lujan MD [address] [place] [address] Orthopaedic Surgery 11/23/24 Rory Angeles MD [address] [place] [address] Pain Medicine 02/06/25 documented as of this encounter
--- OUTSIDE RECORDS SUMMARY | 2025-02-09 08:16 | XMS_ITS | Encounter Summary ---
Author Organization [facility] Address [address] [facility] 7t [place] [address] Care Team Providers Care Cable Braider Name Role Phone Daisha Crane MD Primary Care Provider +1- [phone] Lisa Liao PharmD Unavailable Alissa Santillan MD Unavailable Sharon Guardado Unavailable Cedric Lujan MD Unavailable Rory Angeles MD Unavailable Encounter Details Date Type Department Care Team (Late st Contact Info) Description 12/08/2022 Abstract [facility] MEDICINE 230 [place], [place] [phone] Daisha Crane MD 230 [place], [place] [phone] Social History Tobacco Use Types Packs/Day Years [...] Info) Description 02/26/2025 11:00 AM EDT Telemedicine [facility] CHC MED & PEDS 505 [place] [address] Loyda Banda, RN 505 [place], [place] 03/07/2025 10:15 AM EDT Office Visit [facility] MEDICINE 230 [place] [address] Daisha Crane MD 230 [place] [address] documented as of this encounter Procedures Procedure [...] documented as of this encounter Care Teams Cable Braider Relationship Specialty Start Date End Date Daisha Crane MD 230 [place] [address] PCP - General Family Medicine 11/01/18 Lisa Liao, GenevaD [address] [place] [address] Pharmacist Internal Medicine 04/06/23 02/02/25 Alissa Santillan MD [address] [place] [address] Rheumatology 11/09/24 Sharon Guardado [address] 3rd [place] [address] Cardiology 11/13/24 Cedric Lujan MD [address] [place] [address] Orthopaedic Surgery 11/23/24 Rory Angeles MD [address] [place] [address] Pain Medicine 02/06/25 documented as of this encounter
--- OUTSIDE RECORDS SUMMARY | 2025-02-09 08:16 | XMS_ITS | Encounter Summary ---
Author Organization [facility] Address [address] [facility] 7t [place] [address] Care Team Providers Care Assessment Rn Name Role Phone Daisha Crane MD Primary Care Provider +- [phone] Lisa Liao PharmD Unavailable +1- [phone] Alissa Santillan MD Unavailable Sharon Guardado Unavailable Cedric Lujan MD Unavailable Rory Angeles MD Unavailable Encounter Details Date Type Department Care Team (Late st Contact Info) Description 12/16/2022 Orders Only [facility] CHC MED & PEDS 505 [place], [place] [phone] Jenn Polk LPN Social History Tobacco Use [...] Info) Description 02/26/2025 11:00 AM EDT Telemedicine [facility] CHC MED & PEDS [address] [place] [address] Loyda Banda, SO [address] [place] [address] 03/07/2025 10:15 AM EDT Office Visit [facility] MEDICINE 230 [place] [address] Daisha Crane MD 230 [place] [address] documented as of this encounter Visit Diagnoses Not on filedocumented in this encounter Additional Health Concerns Assessment Noted Time PHQ-9 Depression Total Score: 0 11/23/19 10:39 AM EST documented as of this encounter Care Teams Assessment Rn Relationship Specialty Start Date End Date Daisha Crane MD 230 [place] [address] PCP - General Family Medicine 11/01/18 Lisa Liao, GenevaD 230 [place] [address] Pharmacist Internal Medicine 04/06/23 02/02/25 Alissa Santillan MD [address] [place] [address] Rheumatology 11/09/24 Sharon Guardado [address] 3rd [place] [address] Cardiology 11/13/24 Cedric Lujan MD [address] [place] [address] Orthopaedic Surgery 11/23/24 Rory Angeles MD [address] [place] [address] Pain Medicine 02/06/25 documented as of this encounter
--- OUTSIDE RECORDS SUMMARY | 2025-02-09 08:16 | XMS_ITS | Encounter Summary ---
Author Organization [facility] Address [address] [facility] 7t [place] [address] Care Team Providers Care Jailer/Training Officer Name Role Phone Daisha Crane MD Primary Care Provider + [phone] Lisa Liao PharmD Unavailable Alissa Santillan MD Unavailable Sharon Guardado Unavailable Cedric Lujan MD Unavailable Rory Angeles MD Unavailable Encounter Details Date Type Department Care Team (Late st Contact Info) Description 11/19/2022 Orders Only [facility] MEDICINE 230 [place], [place] [phone] Radha Johnson LPN Social History Tobacco Use [...] Info) Description 02/26/2025 11:00 AM EDT Telemedicine [facility] CHC MED & PEDS 505 [place], [place] [phone] Loyda Banda, SO 505 [place] [address] 03/07/2025 10:15 AM EDT Office Visit [facility] MEDICINE 230 [place] [address] Daisha Crane MD [address] [place] [address] documented as of this encounter Visit Diagnoses Not on filedocumented in this encounter Care Teams Jailer/Training Officer Relationship Specialty Start Date End Date Daisha Crane MD [address] [place] [address] PCP - General Family Medicine 11/01/18 Lisa Liao, GenevaD [address] [place] [address] Pharmacist Internal Medicine 04/06/23 02/02/25 Alissa Santillan MD [address] [place] [address] Rheumatology 11/09/24 Sharon Guardado [address] 3rd [place] [address] Cardiology 11/13/24 Cedric Lujan MD [address] [place] [address] Orthopaedic Surgery 11/23/24 Rory Angeles MD [address] [place] [address] Pain Medicine 02/06/25 documented as of this encounter
--- OUTSIDE RECORDS SUMMARY | 2025-02-09 08:16 | XMS_ITS | Encounter Summary ---
Author Organization [employer] Address [address] [facility] 7t [place] [address] Care Team Providers Care Mechanical Maintenance Engineer Name Role Phone Daisha Crane MD Primary Care Provider + [phone] Lisa Liao PharmD Unavailable Alissa Santillan MD Unavailable Sharon Guardado Unavailable Cedric Lujan MD Unavailable Rory Angeles MD Unavailable Reason for Visit * Reason Comments Med Refill Encounter Details Date Type Department Care Team (Late st Contact Info) Description 02/07/2024 Refill [facility] MEDICINE 230 [place], [place] [phone] Tanika Arenas ANP 230 [place], [place] [phone] Dyslipidemia Social History Tobacco Use Types Packs/Day [...] Info) Description 02/26/2025 11:00 AM EDT Telemedicine [facility] CHC MED & PEDS 505 [place] [address] Loyda Banda RN 505 [place] [address] 03/07/2025 10:15 AM EDT Office Visit [facility] MEDICINE 230 [place] [address] Daisha Crane MD 230 [place] [address] documented as of this encounter Goals Goal [...] documented as of this encounter Care Teams Mechanical Maintenance Engineer Relationship Specialty Start Date End Date Daisha Crane MD 230 [facility] [place] [address] PCP - General Family Medicine 11/01/18 Lisa Liao, Nidia [address] [facility] [place] [address] Pharmacist Internal Medicine 04/06/23 02/02/25 Alissa Santillan MD [address] [place] [address] Rheumatology 11/09/24 Sharon Guardado [address] 3rd [place] [address] Cardiology 11/13/24 Cedric Lujan MD [address] [place] [address] Orthopaedic Surgery 11/23/24 Rory Angeles MD [address] [place] [address] Pain Medicine 02/06/25 documented as of this encounter
--- OUTSIDE RECORDS SUMMARY | 2025-02-09 08:16 | XMS_ITS | Encounter Summary ---
Author Organization [employer] [facility] Address [address] [facility] 7t [place] [address] Care Team Providers Care Casing Grader Name Role Phone Daisha Crane MD Primary Care Provider +1- [phone] Lisa Liao PharmD Unavailable Alissa Santillan MD Unavailable Sharon Guardado Unavailable eCdric Lujan MD Unavailable Rory Angeles MD Unavailable Reason for Visit * Reason Onset Date Comments Med Refill 03/15/2023 Encounter Details Date Type Department Care Team (Late st Contact Info) Description 03/15/2023 Telephone [facility] MEDICINE 230 [place], [place] [phone] Daisha Crane MD 230 [place], [place] [phone] Med Refill Social History Tobacco Use Types [...] 02/26/2025 11:00 AM EDT Telemedicine [facility] CHC MED & PEDS 505 [place] [address] Loyda Banda RN [address] [place] [address] 03/07/2025 10:15 AM EDT Office Visit [facility] MEDICINE 230 [place] [address] Daisha Crane MD 230 [place] [address] documented as of this encounter Visit Diagnoses Not on filedocumented in this encounter Additional Health Concerns Assessment Noted Time PHQ-9 Depression Total Score: 0 11/23/19 23 10:39 AM EST documented as of this encounter Care Teams Casing Grader Relationship Specialty Start Date End Date Daisha Crane MD 230 [place] [address] PCP - General Family Medicine 11/01/18 Lisa Liao, GenevaD 230 [place] [address] Pharmacist Internal Medicine 04/06/23 02/02/25 Alissa Santillan MD [address] [place] [address] Rheumatology 11/09/24 Sharon Guardado [address] 3rd [place] [address] Cardiology 11/13/24 Cedric Lujan MD [address] [place] [address] Orthopaedic Surgery 11/23/24 Rory Angeles MD [address] [place] [address] Drive [address] [place] [address] Pain Medicine 02/06/25 documented as of this encounter
--- OUTSIDE RECORDS SUMMARY | 2025-02-09 08:16 | XMS_ITS | Encounter Summary ---
Author Organization [employer] Address [address] [facility] 7t [place] [address] Care Team Providers Care Chip Mixer Name Role Phone Daisha Crane MD Primary Care Provider + [phone] Lisa Liao PharmD Unavailable [phone] Alissa Santillan MD Unavailable Sharon Guardado Unavailable Cedric Lujan MD Unavailable Rory Angeles MD Unavailable Reason for Visit * Reason Comments Med Refill Encounter Details Date Type Department Care Team (Late st Contact Info) Description 09/03/2023 Refill [facility] MEDICINE 230 [place], [place] [phone] Key Gregory MD 230 [place], [place] [phone] Tinea versicolor Social History Tobacco Use Types [...] [facility] 505 [place] [address] Loyda Banda RN 505 [place] [address] 03/07/2025 10:15 AM EDT Office Visit [facility] MEDICINE 230 [place] [address] Daisha Crane MD 230 [place] [address] documented as of this encounter Goals Goal [...] documented as of this encounter Care Teams Chip Mixer Relationship Specialty Start Date End Date Saint Robert, MD Daisha 230 [place] [address] PCP - General Family Medicine 11/01/18 Lisa Liao PharmD 230 [place] [address] Pharmacist Internal Medicine 04/06/23 02/02/25 Alissa Santillan MD [address] [place] [address] Rheumatology 11/09/24 Sharon Guardado [address] 3rd [place] [address] Cardiology 11/13/24 Cedric Lujan MD [address] [place] [address] Orthopaedic Surgery 11/23/24 Rory Angeles MD [address] [place] [address] Pain Medicine 02/06/25 documented as of this encounter
--- OUTSIDE RECORDS SUMMARY | 2025-02-09 08:16 | XMS_ITS | Encounter Summary ---
Author Organization [employer] Address [address] [facility] 7t [place] [address] Care Team Providers Care Environmental Studies Faculty Member Name Role Phone Daisha Crane MD Primary Care Provider +- [phone] Lisa Liao PharmD Unavailable Alissa Santillan MD Unavailable Sharon Guardado Unavailable Cedric Lujan MD Unavailable Rory Angeles MD Unavailable Reason for Visit * Reason Onset Date Comments Med Refill 11/24/2023 Encounter Details Date Type Department Care Team (Late st Contact Info) Description 11/24/2023 Telephone [facility] MEDICINE 230 [place], [place] [phone] Daisha Crane MD 230 [place], [place] [phone] Med Refill Social History Tobacco Use Types [...] immediate release tablet To be sent to: [facility] - [place], [place] - [address] [place] [address] documented in this encounter Plan of Treatment Upcoming Encounters Date Type Department Care Team ([facility] st Contact Info) Description 02/26/2025 11:00 AM EDT Telemedicine [facility] CHC MED & PEDS 505 [place] [address] Loyda Banda RN 505 [place] [address] 03/07/2025 10:15 AM EDT Office Visit [facility] MEDICINE 230 [place] [address] Daisha Crane MD 230 [place] [address] documented as of this encounter Goals Goal [...] as of this encounter Care Teams Environmental Studies Faculty Member Relationship Specialty Start Date End Date Daisha Crane MD 230 [place] [address] PCP - General Family Medicine 11/01/18 Lisa Liao, Nidia 230 [place] [address] Pharmacist Internal Medicine 04/06/23 02/02/25 Alissa Santillan MD [address] [place] [address] Rheumatology 11/09/24 Sharon Guardado [address] 3rd [place] [address] Cardiology 11/13/24 Cedric uLjan MD [address] [place] [address] Orthopaedic Surgery 11/23/24 Rory Angeles MD [address] [place] [address] Pain Medicine 02/06/25 documented as of this encounter
--- OUTSIDE RECORDS SUMMARY | 2025-02-09 08:16 | XMS_ITS | Encounter Summary ---
Author Organization [employer] [facility] Address [address] [facility] 7t [place] [address] Care Team Providers Care Pet Caretaker Name Role Phone Daisha Crane MD Primary Care Provider +1- [phone] Lisa Liao PharmD Unavailable Alissa Santillan MD Unavailable Sharon Guardado Unavailable Cedric Lujan MD Unavailable Rory Angeles MD Unavailable Reason for Visit * Reason Onset Date Comments Med Refill 06/07/2023 Encounter Details Date Type Department Care Team (Late st Contact Info) Description 06/07/2023 Telephone [facility] MEDICINE 230 [place], [place] [phone] Hiram Palma MD 230 [place], [place] [phone] Med Refill Social History Tobacco Use Types [...] encounter Miscellaneous Notes * Telephone Encounter - Ahiritza Dsouza Landin - 06/07/2023 9:38 AM EDT Tc from pt requesting med refill on oxyCODONE (Roxicodone) 5 MG immediate release tablet Please sent to [facility] - [place], [place] - [address] [place] [address] documented in this encounter Plan of Treatment Upcoming Encounters Date Type Department Care Team (Late st Contact Info) Description 02/26/2025 11:00 AM EDT Telemedicine [facility] CHC MED & PEDS 505 [place], [place] [phone] Loyda Banda RN 505 [place] [address] 03/07/2025 10:15 AM EDT Office Visit [facility] MEDICINE 230 [place] [address] Daisha Crane MD [address] [place] [address] documented as of this encounter Goals Goal [...] documented as of this encounter Care Teams Pet Caretaker Relationship Specialty Start Date End Date Daisha Crane MD [address] [place] [address] PCP - General Family Medicine 11/01/18 Lisa Liao, GenevaD [address] [place] [address] Pharmacist Internal Medicine 04/06/23 02/02/25 Alissa Santillan MD [address] [place] [address] Rheumatology 11/09/24 Sharon Guardado [address] 3rd [place] [address] Cardiology 11/13/24 Cedric Lujan MD [address] [place] [address] Orthopaedic Surgery 11/23/24 Rory Angeles MD [address] [place] [address] Pain Medicine 02/06/25 documented as of this encounter
--- OUTSIDE RECORDS SUMMARY | 2025-02-09 08:16 | XMS_ITS | Encounter Summary ---
Author Organization [employer] Address [address] [facility] 7t [place] [address] Care Team Providers Care Disk And Tape Machine Tender Name Role Phone Daisha Crane MD Primary Care Provider + [phone] Lisa Liao PharmD Unavailable Alissa Santillan MD Unavailable Sharon Guardado Unavailable Cedric Lujan MD Unavailable Rory Angeles MD Unavailable Reason for Visit * Reason Comments Med Refill Encounter Details Date Type Department Care Team (Late st Contact Info) Description 02/06/2024 Refill [facility] MEDICINE 230 [place], [place] [phone] Lisa Liao, PharmD 230 [place], [place] [phone] Social History Tobacco Use Types Packs/Day Years [...] Info) Description 02/26/2025 11:00 AM EDT Telemedicine [facility] CHC MED & PEDS 505 [place] [address] Loyda Banda, RN 505 [place] [address] 03/07/2025 10:15 AM EDT Office Visit [facility] MEDICINE 230 [place] [address] Daisha Crane MD 230 [place] [address] documented as of this encounter Goals Goal Patient Goal Type Associated Problems Recent Progress Patient-Stated? Author Blood Pressure < 140/90 Blood Pressure 110/56(2024 9:11 AM EDT) Lisa Cadet PharmD Hemoglobin A1c < 8 Result Component 6.9(11/04/202 4 10:06 AM EST) Lisa Cadet PharmD documented as of this encounter Visit Diagnoses Not on filedocumented in this encounter Additional Health Concerns Assessment Noted Time PHQ-9 Depression Total Score: 0 11/23/19 10:39 AM EST documented as of this encounter Care Teams Disk And Tape Machine Tender Relationship Specialty Start Date End Date Daisha Crane MD 230 [place] [address] PCP - General Family Medicine 11/01/18 Lisa Liao, PharmD 230 [place] [address] Pharmacist Internal Medicine 04/06/23 02/02/25 Alissa Santillan MD [address] [place] [address] Rheumatology 11/09/24 Sharon Guardado [address] 3rd [place] [address] Cardiology 11/13/24 Cedric Lujan MD [address] [place] [address] Orthopaedic Surgery 11/23/24 Rory Angeles MD [address] [place] [address] Pain Medicine 02/06/25 documented as of this encounter
--- OUTSIDE RECORDS SUMMARY | 2025-02-09 08:16 | XMS_ITS | Encounter Summary ---
Author Organization [facility] Address [address] [facility] 7t [place] [address] Care Team Providers Care Recoating Machine Operator Name Role Phone Daisha Crane MD Primary Care Provider + [phone] Lisa Liao PharmD Unavailable Alissa Santillan MD Unavailable Sharon Guardado Unavailable Cedric Lujan MD Unavailable Rory Angeles MD Unavailable Encounter Details Date Type Department Care Team (Late st Contact Info) Description 03/05/2023 Orders Only [facility] MEDICINE 230 [place], [place] [phone] Radha Johnson LPN Social History Tobacco Use [...] [facility] 505 [place], [place] [phone] Loyda Banda, SO 505 [place] [address] 03/07/2025 10:15 AM EDT Office Visit [facility] MEDICINE 230 [place] [address] Daisha Crane MD 230 [place] [address] documented as of this encounter Visit Diagnoses Not on filedocumented in this encounter Additional Health Concerns Assessment Noted Time PHQ-9 Depression Total Score: 0 11/23/19 10:39 AM EST documented as of this encounter Care Teams Recoating Machine Operator Relationship Specialty Start Date End Date Daisha Crane MD 230 [place] [address] PCP - General Family Medicine 11/01/18 Lisa Liao, GenevaD [address] [place] [address] Pharmacist Internal Medicine 04/06/23 02/02/25 Alissa Santillan MD [address] [place] [address] Rheumatology 11/09/24 Sharon Guardado [address] 3rd [place] [address] Cardiology 11/13/24 Cedric Lujan MD [address] [place] [address] Orthopaedic Surgery 11/23/24 Rory Angeles MD [address] [place] [address] Pain Medicine 02/06/25 documented as of this encounter
--- OUTSIDE RECORDS SUMMARY | 2025-02-09 08:16 | XMS_ITS | Encounter Summary ---
Author Organization [facility] Address [address] [facility] 7t [place] [address] Care Team Providers Care Production Material Coordinator Name Role Phone Daisha Crane MD Primary Care Provider + [phone] Lisa Liao PharmD Unavailable Alissa Santillan MD Unavailable Sharon Guardado Unavailable Cedric Lujan MD Unavailable Rory Angeles MD Unavailable Encounter Details Date Type Department Care Team (Late st Contact Info) Description 10/22/2022 Orders Only [facility] [address] [place] [address] Radha Johnson LPN Social History Tobacco Use [...] 02/26/2025 11:00 AM EDT Telemedicine [facility] CHC MED & PEDS 505 [place], [place] [phone] Loyda Banda, RN 505 [place], [place] [phone] 03/07/2025 10:15 AM EDT Office Visit [facility] MEDICINE 230 [place] [address] Daisha Crane MD 230 [place] [address] documented as of this encounter Visit Diagnoses Not on filedocumented in this encounter Care Teams Production Material Coordinator Relationship Specialty Start Date End Date Daisha Crane MD 230 [place] [address] PCP - General Family Medicine 11/01/18 Lisa Liao, Nidia 230 [place] [address] Pharmacist Internal Medicine 04/06/23 02/02/25 Alissa Santillan MD [address] [place] [address] Rheumatology 11/09/24 Sharon Guardado [address] 3rd [place] [address] Cardiology 11/13/24 Cedric Lujan MD [address] [place] [address] Orthopaedic Surgery 11/23/24 Rory Angeles MD [address] [place] [address] Pain Medicine 02/06/25 documented as of this encounter
--- OUTSIDE RECORDS SUMMARY | 2025-02-09 08:16 | XMS_ITS | Encounter Summary ---
Author Organization [employer] Address [address] [facility] 7t [place] [address] Care Team Providers Care Nonprofit Director Name Role Phone Daisha Crane MD Primary Care Provider +1- [phone] Lisa Liao PharmD Unavailable Alissa Santillan MD Unavailable Sharon Guardado Unavailable Cedric Lujan MD Unavailable Rory Angeles MD Unavailable Encounter Details Date Type Department Care Team (Late st Contact Info) Description 11/18/2023 Telephone [facility] MEDICINE 230 [place], [place] [phone] Daisha Crane MD 230 [place], [place] [phone] Social History Tobacco Use Types Packs/Day Years [...] Description 02/26/2025 11:00 AM EDT Telemedicine [facility] CHC MED & PEDS 505 [place] [address] Loyda Banda, RN 505 [place] [address] 03/07/2025 10:15 AM EDT Office Visit [facility] MEDICINE [address] [place] [address] Daisha Crane MD [address] [place] [address] documented as of this encounter Goals Goal [...] documented as of this encounter Care Teams Nonprofit Director Relationship Specialty Start Date End Date Daisha Crane MD 230 [place] [address] PCP - General Family Medicine 11/01/18 Lisa Liao, GenevaD 230 [place] [address] Pharmacist Internal Medicine 04/06/23 02/02/25 Alissa Santillan MD [address] [place] [address] Rheumatology 11/09/24 Sharon Guardado [address] 3rd [place] [address] Cardiology 11/13/24 Cedric Lujan MD [address] [place] [address] Orthopaedic Surgery 11/23/24 Rory Angeles MD [address] [place] [address] Pain Medicine 02/06/25 documented as of this encounter
--- OUTSIDE RECORDS SUMMARY | 2025-02-09 08:16 | XMS_ITS | Encounter Summary ---
Author Organization [facility] Address [address] [facility] 7t [place] [address] Care Team Providers Care Diffusion Operator Name Role Phone Daisha Crane MD Primary Care Provider + [phone] Lisa Liao PharmD Unavailable +1- [phone] Alissa Santillan MD Unavailable Sharon Guardado Unavailable Cedric Lujan MD Unavailable Rory Angeles MD Unavailable Encounter Details Date Type Department Care Team (Late st Contact Info) Description 03/15/2023 Orders Only [facility] MED & PEDS 505 [place] [address] Jenn Polk LPN Social History Tobacco Use [...] Info) Description 02/26/2025 11:00 AM EDT Telemedicine [facility] MED & PEDS 505 [place] [address] Loyda Banda, RN 505 [place] [address] 03/07/2025 10:15 AM EDT Office Visit [facility] 230 [place] [address] Daisha Crane MD 230 [place] [address] documented as of this encounter Visit Diagnoses Not on filedocumented in this encounter Additional Health Concerns Assessment Noted Time PHQ-9 Depression Total Score: 0 11/23/19 10:39 AM EST documented as of this encounter Care Teams Diffusion Operator Relationship Specialty Start Date End Date Daisha Crane MD 230 [place] [address] PCP - General Family Medicine 11/01/18 Lisa Liao, GenevaD [address] [place] [address] Pharmacist Internal Medicine 04/06/23 02/02/25 Alissa Santillan MD [address] [place] [address] Rheumatology 11/09/24 Sharon Guardado [address] 3rd [place] [address] Cardiology 11/13/24 Cedric Lujan MD [address] [place] [address] Orthopaedic Surgery 11/23/24 Rory Angeles MD [address] [place] [address] Pain Medicine 02/06/25 documented as of this encounter
--- OUTSIDE RECORDS SUMMARY | 2025-02-09 08:16 | XMS_ITS | Encounter Summary ---
Author Organization [employer] Address [address] [facility] 7t [place] [address] Care Team Providers Care Ethnology Professor Name Role Phone Daisha Crane MD Primary Care Provider + [phone] Lisa Liao PharmD Unavailable [phone] Alissa Santillan MD Unavailable Sharon Guardado Unavailable Cedric Lujan MD Unavailable Rory Angeles MD Unavailable Reason for Visit * Reason Comments Med Refill Encounter Details Date Type Department Care Team (Late st Contact Info) Description 08/31/2023 Refill [facility] 230 [place], [place] [phone] Key Gregory MD 230 [place], [place] [phone] Tinea versicolor Social History Tobacco Use Types [...] Info) Description 02/26/2025 11:00 AM EDT Telemedicine [facility]ED[facility] 505 [place] [address] Loyda Banda RN 505 [place] [address] 03/07/2025 10:15 AM EDT Office Visit [facility] 230 [place] [address] Daisha Crane MD 230 [place] [address] documented as of this encounter Goals Goal [...] documented as of this encounter Care Teams Ethnology Professor Relationship Specialty Start Date End Date Erie, MD Daisha 230 [place] [address] PCP - General Family Medicine 11/01/18 Lisa Liao PharmD 230 [place] [address] Pharmacist Internal Medicine 04/06/23 02/02/25 Alissa Santillan MD [address] [place] [address] Rheumatology 11/09/24 Sharon Guardado [address] 3rd [place] [address] Cardiology 11/13/24 Cedric Lujan MD [address] [place] [address] Orthopaedic Surgery 11/23/24 Rory Angeles MD [address] [place] [address] Pain Medicine 02/06/25 documented as of this encounter
--- OUTSIDE RECORDS SUMMARY | 2025-02-09 08:16 | XMS_ITS | Encounter Summary ---
Author Organization [employer] [facility] Address [address] [facility] 7t [place] [address] Care Team Providers Care Cheesemaker Helper Name Role Phone Daisha Crane MD Primary Care Provider +1- [phone] Lisa Liao PharmD Unavailable Alissa Santillan MD Unavailable Sharon Guardado Unavailable Cedric Lujan MD Unavailable Rory Angeles MD Unavailable Encounter Details Date Type Department Care Team (Late st Contact Info) Description 10/14/2022 Orders Only [facility] 230 [place], [place] [phone] Daisha Crane MD 230 [place], [place] [phone] Social History Tobacco Use Types Packs/Day Years [...] Info) Description 02/26/2025 11:00 AM EDT Telemedicine [facility] MED [facility] PEDS 505 [place] [address] Loyda Banda, SO 505 [place] [address] 03/07/2025 10:15 AM EDT Office Visit [facility] 230 [place] [address] Daisha Crane MD 230 [place] [address] documented as of this encounter Visit Diagnoses Not on filedocumented in this encounter Care Teams Cheesemaker Helper Relationship Specialty Start Date End Date Daisha Crane MD 230 [place] [address] PCP - General Family Medicine 11/01/18 Lisa Liao, PharmD [address] [place] [address] Pharmacist Internal Medicine 04/06/23 02/02/25 Alissa Santillan MD [address] [place] [address] Rheumatology 11/09/24 Sharon Guardado [address] 3rd [place] [address] Cardiology 11/13/24 Cedric Lujan MD [address] [place] [address] Orthopaedic Surgery 11/23/24 Rory Angeles MD [address] [place] [address] Pain Medicine 02/06/25 documented as of this encounter
--- OUTSIDE RECORDS SUMMARY | 2025-02-09 08:16 | XMS_ITS | Encounter Summary ---
Author Organization [facility] Address 75 [facility] 7t [place] [address] Care Team Providers Care Manufacturing Clerk Name Role Phone Daisha Crane MD Primary Care Provider +1- [phone] Lisa Liao PharmD Unavailable Alissa Santillan MD Unavailable Sharon Guardado Unavailable Cedric Lujan MD Unavailable Rory Angeles MD Unavailable Encounter Details Date Type Department Care Team (Late st Contact Info) Description 06/01/2023 Abstract [facility] 230 [place], [place] [phone] Daisha Crane MD 230 [place], [place] [phone] Social History Tobacco Use Types Packs/Day Years [...] Info) Description 02/26/2025 11:00 AM EDT Telemedicine [facility] MED & PEDS 505 [place] [address] Loyda Banda, RN [address] [place] [address] 03/07/2025 10:15 AM EDT Office Visit [facility] 230 [place] [address] Daisha Crane MD 230 [place] [address] documented as of this encounter Goals Goal [...] documented as of this encounter Care Teams Manufacturing Clerk Relationship Specialty Start Date End Date Daisha Crane MD [address] [place] [address] PCP - General Family Medicine 11/01/18 Lisa Liao, PharmD [address] [place] [address] Pharmacist Internal Medicine 04/06/23 02/02/25 Alissa Santillan MD [address] [place] [address] Rheumatology 11/09/24 Sharon Guardado [address] 3rd [place] [address] Cardiology 11/13/24 Cedric Lujan MD [address] [place] [address] Orthopaedic Surgery 11/23/24 Rory Anegles MD [address] [place] [address] [address] [place] [address] Pain Medicine 02/06/25 documented as of this encounter
[2025-02-09 08:37] VITALS: BP 140/81; PULSE 73; O2SAT 97; BMI 25.0
--- NOTE | 2025-02-09 08:37 | A.OFFVIS_ITS ---
Vital Signs 02/09/25 08:37 Height 5 ft 6 in Weight 155 lb BMI 25.0 BP 140/81 H Blood Pressure Location Lt brachial Position Sitting Pulse 73 Pulse Source Pulse Oximeter Pulse Oximetry (%) 97 Oxygen Delivery Method Room Air Intake Visit Reasons: RIGHT DIAGNOSTIC SUPRASCAPULAR NERVE BLOCK Intake Note: Pain today 9/10 Coil Connector Required: No Accompanied by: Other Relationship Allergies lisinopril [LISINOPRIL] Allergy (Severe, Verified 02/09/25 08:38) Angioedema LAITH Inhibitors Adverse Reaction (Severe, Verified 02/09/25 08:38) Angioedema HPI Comments Details: Patient presents back to the office today for follow-up, 3 days status post right diagnostic suprascapular nerve block Reports no improvement in his pain in the hours after the procedure. Pain today is rated as a 9/10. Worse with movement, tender to palpation. Most significant area of pain is over humeral head and glenohumeral joint Prior: Patrice is a very pleasant 79-year-old male who presents to the office today for evaluation and management of his right shoulder pain He was referred here by Orthopedics, ruled out for total shoulder replacement surgery due to history of diabetes, COPD and dilated aorta. Recent MRI reviewed, results as per below He reports he has been suffering with right shoulder pain for several months. He denies inciting injury, fall, trauma. States the pain just started out of the blue and has been progressively getting worse Reports significant difficulty with range of motion to that are. Significant pain of the right shoulder. Unable to tolerate physical therapy secondary to the pain. He has tried Tylenol, nonsteroidal anti-inflammatory medications, heat and ice all without improvement. Currently prescribed opioids which provides minimal benefit. He has had injections in the past with provided relief. Most recent injections approximately 1 year ago with no relief Pain today is rated a 9/10, constant and worse at night In terms of muscle damage condition is described as dull, aching, throbbing, shooting, tight, squeezing Pain is negatively impacting patient's enjoyment of life, general activity, mood care for himself, ability to perform activities of daily living Denies implantable devices, pacemaker or defibrillator Denies current use of anticoagulants [facility] Medical History Abscess, umbilical Ascending aorta dilation Epidermal inclusion cyst Abscess half-way systemic steroid user Osteoporosis Seropositive rheumatoid arthritis History of prostate cancer Arthritis GERD (gastroesophageal reflux disease) COPD (chronic obstructive pulmonary disease) Asthma HTN (hypertension) Surgical History History of open reduction and internal fixation (ORIF) procedure Hx of umbilical hernia repair Hx of eye surgery History of back surgery History of colonoscopy History of removal of cyst History of tonsillectomy and adenoidectomy History of arthroscopy of left shoulder History of prostate surgery Family History Mother History of breast cancer, Onset Age: 87 Father History of asthma Social History Alcohol intake: never Patient Tobacco Use Status: Current everyday Tobacco user Tobacco use type: Cigarette Cigarettes Per Day: 7 Years Smoked: 60 +/- e-Cigarette/Vaping Use: Never Used Current occupational status: retired Current occupation: [employer] Gender identity: Male Review of Systems Const All systems reviewed & are unremarkable except as noted in HPI and below Physical Exam Vital Signs: Last Vital Signs Pulse 73 02/09/25 08:37 BP 140/81 H 02/09/25 08:37 Pulse Ox 97 02/09/25 08:37 Oxygen Delivery Method Room Air 02/09/25 08:37 BMI result Body Mass Index 25.0 General: awake, alert, oriented. Answers questions appropriately. Fully engaged in examination. Skin: warm, dry, intact HEENT: Normocephalic. Hearing intact. Cardiac: External chest normal in appearance. Respiratory: No cough, audible wheezing or stridor. Abdomen: without gross distension. MS: No obvious swelling or deformities. Right shoulder: Tenderness over humeral head and glenohumeral joint. Significantly decreased range of motion. Neurological: Oriented to person, place, time and situation. Thought process intact. No gait abnormalities appreciated. Psychiatric: Appropriate mood and affect. Good judgment and insight. Results Reviewed Results Reviewed: 07/24/24 MR/MR shoulder RT wo con IMPRESSION: 1. Completely torn and retracted supraspinatus tendon with moderate muscle atrophy and mild fatty infiltration. 2. Complete or near-complete tear of the subscapularis tendon with moderate muscle atrophy and mild fatty infiltration. 3. Completely torn and retracted biceps tendon. 4. Superior subluxation of the humeral head with chronic remodeling of the undersurface of the acromion. 5. Mild acromioclavicular and glenohumeral osteoarthritis. Assessment & Plan Assessment & Plan (1) Rotator cuff tear arthropathy of right shoulder: Code(s): M75.101 - Unspecified rotator cuff tear or rupture of right shoulder, not specified as traumatic; M12.811 - Other specific arthropathies, not elsewhere classified, right shoulder Category: Medical (2) Chronic right shoulder pain: Code(s): M25.511 - Pain in right shoulder; G89.29 - Other chronic pain Category: Medical Plan Patient presented to the office today for follow-up, 3 days status post right diagnostic suprascapular nerve block Reports no improvement in pain in the hours after the injection Patient considering 2nd opinion with orthopedics though not ready to proceed at this time. He is unable tolerate physical therapy secondary to pain. No improvement with [id number]-[id number] medications, nonsteroidal anti-inflammatory medications, heat, ice, prescription medications. Discussed options for treatment including diagnostic interventional testing, epidural steroid injections, peripheral nerve stimulation with Sprint, RFA and more permanent neuromodulation. Informational pamphlets provided. We will schedule for fluoroscopy guided right diagnostic interscalene block with local anesthetic. If good results will plan for right interscalene sprint PNS, if negative results will refer to [facility] for 2nd opinion. All questions and concerns have been answered and patient agrees with the plan. Follow up after injections, sooner if needed. Coding Level of Care Code Est Pt Level 3 (53364) Complex EM visit Add On G2211 Diagnoses Rotator cuff tear arthropathy of right shoulder M75.101; M12.811 Chronic right shoulder pain M25.511; G89.29
== END 2025-02-09 09:14 | disposition home or self-care (01) ==
LOC: HO.PMC 08:09
PROVIDERS: PCP Family Medicine; Visit Provider Nurse Practitioner Family
DX: M75.101 Unspecified rotator cuff tear or rupture of right shoulder, not specified as traumatic (principal); M12.811 Other specific arthropathies, not elsewhere classified, right shoulder; M25.511 Pain in right shoulder; G89.29 Other chronic pain
CPT/HCPCS: 99213; G2211

== ENCOUNTER → 2025-02-09 08:09 | Outpatient (BNVA) | payer OTHER, SELFPAY | PROVIDERS: PCP Family Medicine; Visit Provider Nurse Practitioner Family | DX: M75.101 Unspecified rotator cuff tear or rupture of right shoulder, not specified as traumatic (principal); M12.811 Other specific arthropathies, not elsewhere classified, right shoulder; M25.511 Pain in right shoulder; G89.29 Other chronic pain | CPT/HCPCS: 99212 ==

== ENCOUNTER 2025-02-22 09:31 | Outpatient (REF) | payer OTHER, SELFPAY ==
--- OUTSIDE RECORDS SUMMARY | 2025-02-22 10:30 | XMS_ITS | Encounter Summary ---
Author Organization [employer] [facility] Address 75 [facility] 7t [place] [address] Care Team Providers Care Tube Cutter Operator Name Role Phone Daisha Crane MD Primary Care Provider +1- [phone] Lisa Liao PharmD Unavailable Alissa Santillan MD Unavailable Sharon Guardado Unavailable Cedric Lujan MD Unavailable Rory Angeles MD Unavailable Reason for Visit * Reason Onset Date Comments Med Refill 07/04/2024 Encounter Details Date Type Department Care Team (Late st Contact Info) Description 07/04/[address] [facility] MEDICINE 230 [place], [place] [phone] Daisha Crane MD 230 [place], [place] [phone] Med Refill Social History Tobacco Use Types [...] the past 12 months, has t he [employer], gas, oil or water [employer] threatened to shut off services in your [...] immediate release tablet To be sent to: [facility] - [place], [place] - [address] [place] [address] documented in this encounter Plan of Treatment Upcoming Encounters Date Type Department Care Team ([facility] st Contact Info) Description 02/26/2025 11:00 AM EDT Telemedicine [facility] MED & PEDS 505 [place] [address] Loyda Banda RN 505 [place] [address] 03/07/2025 10:15 AM EDT Office Visit [facility] MEDICINE 230 [place] [address] Daisha Crane MD 230 [place] [address] documented as of this encounter Goals Goal [...] as of this encounter Care Teams Tube Cutter Operator Relationship Specialty Start Date End Date Daisha Crane MD 230 [place] [address] PCP - General Family Medicine 11/01/18 Lisa Liao PharmD [address] [place] [address] Pharmacist Internal Medicine 04/06/23 02/02/25 Alissa Santillan MD [address] [place] [address] Rheumatology 11/09/24 Sharon Guardado [address] 3rd [place] [address] Cardiology 11/13/24 Cedric Lujan MD [address] [place] [address] Orthopaedic Surgery 11/23/24 Rory Angeles MD [address] [place] [address] Pain Medicine 02/06/25 documented as of this encounter
--- OUTSIDE RECORDS SUMMARY | 2025-02-22 10:30 | XMS_ITS | Encounter Summary ---
Author Organization [employer] Address 75 [facility] 7t [place] [address] Care Team Providers Care Cadmium Plater Name Role Phone Daisha Crane MD Primary Care Provider +1- [phone] Lisa Liao PharmD Unavailable Alissa Santillan MD Unavailable Sharon Guardado Unavailable Cedric Lujan MD Unavailable Rory Angeles MD Unavailable Encounter Details Date Type Department Care Team (Late st Contact Info) Description 10/30/2024 Telephone [facility] MED & PEDS [address] [place], [place] [phone] Daisha Crane MD 230 [place], [place] [phone] Social History Tobacco Use Types Packs/Day Years [...] Info) Description 02/26/2025 11:00 AM EDT Telemedicine [facility] MED & PEDS 505 [place] [address] Loyda Banda, SO 505 [place] [address] 03/07/2025 10:15 AM EDT Office Visit [facility] MEDICINE 230 [place] [address] Daisha Crane MD 230 [place] [address] documented as of this encounter Goals Goal [...] documented as of this encounter Care Teams Cadmium Plater Relationship Specialty Start Date End Date Daisha Crane MD 230 [place] [address] PCP - General Family Medicine 11/01/18 Lisa Liao, GenevaD 230 [place] [address] Pharmacist Internal Medicine 04/06/23 02/02/25 Alissa Santillan MD [address] [place] [address] Rheumatology 11/09/24 Sharon Guardado [address] 3rd [place] [address] Cardiology 11/13/24 Cedric Lujan MD [address] [place] [address] Orthopaedic Surgery 11/23/24 Rory Angeles MD [address] [place] [address] Pain Medicine 02/06/25 documented as of this encounter
--- OUTSIDE RECORDS SUMMARY | 2025-02-22 10:30 | XMS_ITS | Encounter Summary ---
Author Organization [employer] [facility] Address [address] [facility] 7t [place] [address] Care Team Providers Care Customs Consultant Name Role Phone Daisha Crane MD Primary Care Provider +1- [phone] Lisa Liao PharmD Unavailable [phone] Alissa Santillan MD Unavailable Sharon Guardado Unavailable Cedric Lujan MD Unavailable Rory Angeles MD Unavailable Reason for Visit * Reason Onset Date Comments Durable Medical Equipment 08/08/2024 Encounter Details Date Type Department Care Team (Late st Contact Info) Description 08/08/2024 Telephone [facility] MEDICINE 230 [place], [place] [phone] Daisha Crane MD 230 [place], [place] [phone] Durable Medical Equipment Social History Tobacco Use [...] the past 12 months, has t he [employer], gas, oil or water company threatened to [...] Description 02/26/2025 11:00 AM EDT Telemedicine [facility] MED & PEDS 505 [place] [address] Loyda Banda RN 505 [place] [address] 03/07/2025 10:15 AM EDT Office Visit [facility]INE 230 [place] [address] Daisha Crane MD 230 [place] [address] documented as of this encounter Goals Goal [...] documented as of this encounter Care Teams Customs Consultant Relationship Specialty Start Date End Date Daisha Crane MD 230 [place] [address] PCP - General Family Medicine 11/01/18 Lisa Liao PharmD 230 [place] [address] Pharmacist Internal Medicine 04/06/23 02/02/25 Alissa Santillan MD [address] [place] [address] Rheumatology 11/09/24 Sharon Guardado [address] 3rd [place] [address] Cardiology 11/13/24 Cedric Lujan MD [address] [place] [address] Orthopaedic Surgery 11/23/24 Rory Angeles MD [address] [place] [address] Pain Medicine 02/06/25 documented as of this encounter
--- OUTSIDE RECORDS SUMMARY | 2025-02-22 10:30 | XMS_ITS | Encounter Summary ---
Author Organization [employer] [facility] Address 75 [facility] 7t [place] [address] Care Team Providers Care Cylinder Die Machine Operator Name Role Phone Daisha Crane MD Primary Care Provider +1- [phone] Lisa Liao PharmD Unavailable Alissa Santillan MD Unavailable Sharon Guardado Unavailable Cedric Lujan MD Unavailable Rory Angeles MD Unavailable Reason for Visit * Reason Onset Date Comments Med Refill 07/07/2023 Encounter Details Date Type Department Care Team (Late st Contact Info) Description 07/07/2023 Telephone [facility] MEDICINE 230 [place], [place] [phone] Daisha Crane MD 230 [place], [place] [phone] Med Refill Social History Tobacco Use Types [...] MG immediate release tablet Please sent to [facility] - [place], [place] - [address] [place] [address] documented in this encounter Plan of Treatment Upcoming Encounters Date Type Department Care Team (Late st Contact Info) Description 02/26/2025 11:00 AM EDT Telemedicine [facility] MED & PEDS 505 [place] [address] Loyda Banda RN 505 [place], [place] 03/07/2025 10:15 AM EDT Office Visit [facility] MEDICINE 230 [place] [address] Daisha Crane MD 230 [place] [address] documented as of this encounter Goals Goal [...] documented as of this encounter Care Teams Cylinder Die Machine Operator Relationship Specialty Start Date End Date Daisha Crane MD [address] [place] [address] PCP - General Family Medicine 11/01/18 Lisa Liao, PharmD [address] [place] [address] Pharmacist Internal Medicine 04/06/23 02/02/25 Alissa Santillan MD [address] [place] [address] Rheumatology 11/09/24 Sharon Guardado [address]rd [place] [address] Cardiology 11/13/24 Cedric Lujan MD [address] [place] [address] Orthopaedic Surgery 11/23/24 Rory Angeles MD [address] [place] [address] Pain Medicine 02/06/25 documented as of this encounter
--- OUTSIDE RECORDS SUMMARY | 2025-02-22 10:30 | XMS_ITS | Encounter Summary ---
Author Organization [employer] [facility] Address 75 [facility] 7t [place] [address] Care Team Providers Care Chemical Plant Operator Name Role Phone Daisha Crane MD Primary Care Provider +1- [phone] Lisa Liao PharmD Unavailable [phone] Alissa Santillan MD Unavailable Sharon Guardado Unavailable Cedric Lujan MD Unavailable Rory Angeles MD Unavailable Reason for Visit * Reason Onset Date Comments Med Refill 06/05/2024 Encounter Details Date Type Department Care Team (Late st Contact Info) Description 06/05/2024 Telephone [facility] 230 [place], [place] [phone] Daisha Crane MD 230 [place], [place] [phone] Med Refill Social History Tobacco Use Types [...] the past 12 months, has t he [employer], gas, oil or water [employer] threatened to shut off services in your [...] immediate release tablet To be sent to: [facility] - [place], [place] - [address] [place] [address] documented in this encounter Plan of Treatment Upcoming Encounters Date Type Department Care Team ([facility] st Contact Info) Description 02/26/2025 11:00 AM EDT Telemedicine [facility]S 505 [place] [address] Loyda Banda RN 505 [place] [address] 03/07/2025 10:15 AM EDT Office Visit [facility] 230 [place] [address] Daisha Crane MD 230 [place] [address] documented as of this encounter Goals Goal [...] documented as of this encounter Care Teams Chemical Plant Operator Relationship Specialty Start Date End Date Daisha Crane MD 230 [place] [address] PCP - General Family Medicine 11/01/18 Lisa Liao PharmD [address] [place] [address] Pharmacist Internal Medicine 04/06/23 02/02/25 Alissa Santillan MD [address] [place] [address] Rheumatology 11/09/24 Sharon Guardado [address] 3rd [place] [address] Cardiology 11/13/24 Cedric Lujan MD [address] [place] [address] Orthopaedic Surgery 11/23/24 Rory Angeles MD [address] [place] [address] Pain Medicine 02/06/25 documented as of this encounter
--- OUTSIDE RECORDS SUMMARY | 2025-02-22 10:30 | XMS_ITS | Encounter Summary ---
Author Organization [employer] [facility] Address [address] [facility] 7t [place] [address] Care Team Providers Care Clinical Application Consultant Name Role Phone Daisha Crane MD Primary Care Provider +1- [phone] Lisa Liao PharmD Unavailable Alissa Santillan MD Unavailable Sharon Guardado Unavailable Cedric Lujan MD Unavailable Rory Angeles MD Unavailable Reason for Visit * Reason Comments Med Refill Encounter Details Date Type Department Care Team (Late st Contact Info) Description 07/21/2023 Refill [facility] 230 [place], [place] [phone] Daisha Crane MD 230 [place], [place] [phone] Pulmonary emphysema, unspecified emphysema type (CMS/HCC) (Primary [...] Info) Description 02/26/2025 11:00 AM EDT Telemedicine [facility] [address] [place] [address] Loyda Banda, RN 505 [place], [place] 03/07/2025 10:15 AM EDT Office Visit [facility] 230 [place] [address] Daisha Crane MD 230 [place], [place] documented as of this encounter Goals [...] as of this encounter Care Teams Clinical Application Consultant Relationship Specialty Start Date End Date Daisha Crane MD [address] [place] [address] PCP - General Family Medicine 11/01/18 Lisa Liao, PharmD [address] [place] [address] Pharmacist Internal Medicine 04/06/23 02/02/25 Alissa Santillan MD [address] [place] [address] Rheumatology 11/09/24 Sharon Guardado [address] 3rd [place] [address] Cardiology 11/13/24 Cedric Lujan MD [address] [place] [address] Orthopaedic Surgery 11/23/24 Rory Angeles MD [address] [place] [address] Pain Medicine 02/06/25 documented as of this encounter
--- OUTSIDE RECORDS SUMMARY | 2025-02-22 10:30 | XMS_ITS | Encounter Summary ---
Author Organization [employer] Address [address] [facility] 7t [place] [address] Care Team Providers Care Cut Press Operator Name Role Phone Daisha Crane MD Primary Care Provider Lisa Liao PharmD Unavailable [phone] Alissa Santillan MD Unavailable Sharon Guardado Unavailable Cedric Lujan MD Unavailable Rory Angeles MD Unavailable Reason for Visit * Reason Comments Med Refill Encounter Details Date Type Department Care Team (Late st Contact Info) Description 11/21/2024 Refill [facility] [address] [place], [place] [phone] Cara Whitfield MD 230 [place], [place] [phone] Pain Social History Tobacco Use Types Packs/Day [...] Info) Description 02/26/2025 11:00 AM EDT Telemedicine [facility] [address] [place] [address] Loyda Banda, RN 505 [place] [address] 03/07/2025 10:15 AM EDT Office Visit [facility] 230 [place] [address] Daisha Crane MD 230 [place] [address] documented as of this encounter Goals Goal [...] documented as of this encounter Care Teams Cut Press Operator Relationship Specialty Start Date End Date Daisha Crane MD 230 [place] [address] PCP - General Family Medicine 11/01/18 Lisa Liao, GenevaD 230 [place] [address] Pharmacist Internal Medicine 04/06/23 02/02/25 Alissa Santillan MD [address] [place] [address] Rheumatology 11/09/24 Sharon Guardado [address] 3rd [place] [address] Cardiology 11/13/24 Cedric Lujan MD [address] [place] [address] Orthopaedic Surgery 11/23/24 Rory Angeles MD [address] [place] [address] Pain Medicine 02/06/25 documented as of this encounter
--- OUTSIDE RECORDS SUMMARY | 2025-02-22 10:31 | XMS_ITS | Encounter Summary ---
Author Organization [employer] [facility] Address [address] [facility] 7t [place] [address] Care Team Providers Care Lead Web Developer Name Role Phone Daisha Crane MD Primary Care Provider [phone]- [phone] Lisa Liao PharmD Unavailable Alissa Santillan MD Unavailable Sharon Guardado Unavailable Cedric Lujan MD Unavailable Rory Angeles MD Unavailable Encounter Details Date Type Department Care Team (Late st Contact Info) Description 10/14/2022 Orders Only [facility] 230 [place], [place] [phone] Daisha Crane MD 230 [place], [place] [phone] Social History Tobacco Use Types Packs/Day Years [...] Info) Description 02/26/2025 11:00 AM EDT Telemedicine [facility] 505 [place] [address] Loyda Banda, SO 505 [place] [address] 03/07/2025 10:15 AM EDT Office Visit [facility] 230 [place] [address] Daisha Crane MD 230 [place] [address] documented as of this encounter Visit Diagnoses Not on filedocumented in this encounter Care Teams Lead Web Developer Relationship Specialty Start Date End Date Daisha Crane MD 230 [place] [address] PCP - General Family Medicine 11/01/18 Lisa Liao, PharmD [address] [place] [address] Pharmacist Internal Medicine 04/06/23 02/02/25 Alissa Santillan MD [address] [place] [address] Rheumatology 11/09/24 Sharon Guardado [address] 3rd [place] [address] Cardiology 11/13/24 Cedric Lujan MD [address] [place] [address] Orthopaedic Surgery 11/23/24 Rory Angeles MD [address] [place] [address] Pain Medicine 02/06/25 documented as of this encounter
--- OUTSIDE RECORDS SUMMARY | 2025-02-22 10:31 | XMS_ITS | Encounter Summary ---
Author Organization [employer] Address [address] [facility] 7t [place] [address] Care Team Providers Care Blending Kettle Tender Name Role Phone Daisha Crane MD Primary Care Provider + [phone] Lisa Liao PharmD Unavailable Alissa Santillan MD Unavailable Sharon Guardado Unavailable Cedric Lujan MD Unavailable Rory Angeles MD Unavailable Reason for Visit * Reason Comments Med Refill Encounter Details Date Type Department Care Team (Late st Contact Info) Description 02/07/2024 Refill [facility] 230 [place], [place] [phone] Tanika Arenas ANP 230 [place], [place] [phone] Dyslipidemia Social History Tobacco Use Types Packs/Day [...] Info) Description 02/26/2025 11:00 AM EDT Telemedicine [facility] 505 [place] [address] Loyda Banda RN 505 [place] [address] 03/07/2025 10:15 AM EDT Office Visit [facility] 230 [place] [address] Daisha Crane MD 230 [place] [address] documented as of this encounter Goals Goal [...] documented as of this encounter Care Teams Blending Kettle Tender Relationship Specialty Start Date End Date Daisha Crane MD 230 [facility] [place] [address] PCP - General Family Medicine 11/01/18 Lisa Liao, Nidia [address] [facility] [place] [address] Pharmacist Internal Medicine 04/06/23 02/02/25 Alissa Santillan MD [address] [place] [address] Rheumatology 11/09/24 Sharon Guardado [address] 3rd [place] [address] Cardiology 11/13/24 Cedric Lujan MD [address] [place] [address] Orthopaedic Surgery 11/23/24 Rory Angeles MD [address] [place] [address] Pain Medicine 02/06/25 documented as of this encounter
--- OUTSIDE RECORDS SUMMARY | 2025-02-22 10:31 | XMS_ITS | Encounter Summary ---
Author Organization [employer] [facility] Address [address] [facility] 7t [place] [address] Care Team Providers Care Instrument Repair Specialist Name Role Phone Daisha Crane MD Primary Care Provider [phone]- [phone] Lisa Liao PharmD Unavailable Alissa Santillan MD Unavailable Sharon Guardado Unavailable Cedric Lujan MD Unavailable Rory Angeles MD Unavailable Encounter Details Date Type Department Care Team (Late st Contact Info) Description 10/28/2022 Telephone [facility] 230 [place], [place] [phone] Daisha Crane MD 230 [place], [place] [phone] Social History Tobacco Use Types Packs/Day Years [...] Info) Description 02/26/2025 11:00 AM EDT Telemedicine [facility] 505 [place], [place] [phone] Loyda Banda, SO 505 [place] [address] 03/07/2025 10:15 AM EDT Office Visit [facility] 230 [place] [address] Daisha Crane MD 230 [place] [address] documented as of this encounter Visit Diagnoses Not on filedocumented in this encounter Care Teams Instrument Repair Specialist Relationship Specialty Start Date End Date Daisha Crane MD 230 [place] [address] PCP - General Family Medicine 11/01/18 Lisa Liao, PharmD [address] [place] [address] Pharmacist Internal Medicine 04/06/23 02/02/25 Alissa Santillan MD [address] [place] [address] Rheumatology 11/09/24 Sharon Guardado [address] [place] [address] Cardiology 11/13/24 Cedric Lujan MD [address] [place] [address] Orthopaedic Surgery 11/23/24 Rory Angeles MD [address] [place] [address] Pain Medicine 02/06/25 documented as of this encounter
--- OUTSIDE RECORDS SUMMARY | 2025-02-22 10:31 | XMS_ITS | Encounter Summary ---
Author Organization [employer] Address [address] [facility] 7t [place] [address] Care Team Providers Care Underground Production Foreperson Name Role Phone Daisha Crane MD Primary Care Provider +- [phone] Lisa Liao PharmD Unavailable [phone] Alissa Santillan MD Unavailable Sharon Guardado Unavailable Cedric Lujan MD Unavailable Rory Angeles MD Unavailable Reason for Visit * Reason Onset Date Comments Med Refill 11/24/2023 Encounter Details Date Type Department Care Team (Late st Contact Info) Description 11/24/2023 Telephone [facility] [address] [place], [place] [phone] Daisha Crane MD 230 [place], [place] [phone] Med Refill Social History Tobacco Use Types [...] immediate release tablet To be sent to: [facility] - [place], [place] - [address] [place] [address] documented in this encounter Plan of Treatment Upcoming Encounters Date Type Department Care Team ([facility] st Contact Info) Description 02/26/2025 11:00 AM EDT Telemedicine [facility] 505 [place] [address] Loyda Banda RN 505 [place] [address] 03/07/2025 10:15 AM EDT Office Visit [facility] [address] [place] [address] Daisha Crane MD 230 [place] [address] documented as of this encounter Goals Goal [...] as of this encounter Care Teams Underground Production Foreperson Relationship Specialty Start Date End Date Daisha Craen MD 230 [place] [address] PCP - General Family Medicine 11/01/18 Lisa Liao, Nidia 230 [place] [address] Pharmacist Internal Medicine 04/06/23 02/02/25 Alissa Santillan MD [address] [place] [address] Rheumatology 11/09/24 Sharon Guardado [address] 3rd [place] [address] Cardiology 11/13/24 Cedric Lujan MD [address] [place] [address] Orthopaedic Surgery 11/23/24 Rory Angeles MD [address] [place] [address] Pain Medicine 02/06/25 documented as of this encounter
--- OUTSIDE RECORDS SUMMARY | 2025-02-22 10:31 | XMS_ITS | Clinical Summary ---
Author Organization [employer] Address [address] [facility] [address] [place] [address] Care Team Providers Care Choirmaster Name Role Phone Daisha Crane MD Primary Care Provider [phone] Alissa Santillan MD Unavailable Sharon Guardado Unavailable Cedric Lujan MD Unavailable Rory Angeles MD Unavailable Allergies Active Allergy Reactions Criticality Noted Date Comments Marlo Inhibitors Angioedema,Swelling High 12/04/2010 Lisinopril Swelling 07/16/2023 Medications Humira Pen 40 MG/0.4ML Pen-injector Kit pen-injector As directed 07/09/20 22 Active carvedilol (Coreg) 6.25 MG tablet TAKE 1 TABLET BY MOUTH TWICE DAILY IN THE MORNING AND IN THE EVENING WITH FOOD 03/18/20 23 Active Rasuvo 25 MG/0.5ML solution auto-injector As directed 03/08/20 23 Active Actemra ACTPen 162 MG/0.9ML solution auto-injector As directed 03/08/20 23 Active predniSONE (Deltasone) 10 MG tablet 05/27/20 23 Active TRUEplus Lancets 33G miscIndications :Type 2 diabetes mellitus without complication, without long-term current use of insulin ([facility]) Test daily blood glucose 100 each 11 04/06/20 24 Active folic acid (Folvite) 1 MG tabletIndicatio ns:Rheumatoid arthritis involving multiple sites with positive rheumatoid factor (CMS/HCC) Take 1 tablet (1,000 mcg) by mouth in the morning. 90 tablet 3 04/06/20 24 Active metFORMIN XR (Glucophage-XR) 500 MG 24 hr tabletIndicatio ns:Type 2 diabetes mellitus without complication, without long-term current use of insulin (CMS/HCC) Take 1 tablet by mouth twice daily. Do not crush, chew, or split. 180 tablet 3 04/06/20 24 Active melatonin 3 MG tabletIndicatio ns:Primary insomnia TAKE 1 TABLET BY MOUTH AT BEDTIME NEEDED FOR SLEEP 30 tablet 11 06/01/20 24 Active fluticasone furoate (Arnuity Ellipta) 200 MCG/ACT inhalerIndicati ons:Chronic obstructive pulmonary disease, unspecified COPD type (CMS/HCC) INHALE 1 PUFF BY MOUTH EVERY DAY AT THE SAME TIME IN THE MORNING. RINSE MOUTH AFTER USING. 1 each 11 06/01/20 24 Active hydroCHLOROthia zide 12.5 MG tabletIndicatio ns:Hypertension , unspecified type Take 1 tablet by mouth once daily in the morning 90 tablet 3 06/23/20 24 Active Icosapent Ethyl (Vascepa) 1 g capsuleIndicati ons:Dyslipidemi a Take 2 capsules (2 g) by mouth with breakfast and with evening meal. 360 capsule 3 08/18/20 24 Active hydroxychloroqu ine (Plaquenil) 200 MG tabletIndicatio ns:Rheumatoid arthritis involving multiple sites with positive rheumatoid factor (CMS/HCC) TAKE 1 TABLET BY MOUTH TWICE DAILY ON ON WEDNESDAY THROUGH WEDNESDAY OF EACH WEEK AND TAKE 1 TABLET BY MOUTH EVERY DAY ON WEDNESDAY AND Wednesday08/24/20 24 Active clotrimazole (Lotrimin) 1 % cream APPLY TOPICALLY TO SKIN AND TOENAILS DAILY FOR 12 WEEKS 10/04/20 24 Active atorvastatin (Lipitor) 40 MG tabletIndicatio ns:Dyslipidemia TAKE 1 TABLET BY MOUTH AT BEDTIME 90 tablet 3 11/13/19 25 Active Incruse Ellipta 62.5 MCG/ACT aerosol powderIndicatio ns:Simple chronic bronchitis (CMS/HCC) INHALE 1 PUFF BY MOUTH EVERY DAY AT THE SAME TIME 30 each 5 11/22/19 25 Active docusate sodium (Colace) 100 MG capsuleIndicati ons:Constipatio n, unspecified constipation type TAKE 1 CAPSULE BY MOUTH TWICE DAILY IN THE MORNING AND IN THE EVENING 180 capsule 1 11/27/19 25 Active senna (Senokot) 8.6 MG tabletIndicatio ns:Constipation , unspecified constipation type TAKE 2 TABLETS BY MOUTH EVERY DAY IN THE EVENING NEEDED FOR CONSTIPATION 180 tablet 1 11/27/19 25 Active naloxone (Narcan) 4 mg/0.1 mL nasal sprayIndication s:Rheumatoid arthritis involving multiple sites with positive rheumatoid factor ([facility]) FOR SUSPECTED OPIOID OVERDOSE. SPRAY 0.1mL IN ONE NOSTRIL. REPEAT IN ALTERNATE NOSTRIL 2-3 MINUTES IF NEEDED. SEEK MEDICAL ATTENTION IMMEDIATELY EVEN IF PATIENT RESPONDS. 2 each 01/11/20 25 Active cholecalciferol (Vitamin D-3) 25 MCG tabletIndicatio ns:Vitamin D deficiency TAKE 1 TABLET BY MOUTH EVERY MORNING 90 tablet 01/18/20 25 Active albuterol (Ventolin HFA) 108 (90 Base) MCG/ACT inhalerIndicati ons:Mild intermittent asthma without complication INHALE 2 PUFFS BY MOUTH EVERY 4 HOURS NEEDED FOR WHEEZING OR SHORTNESS OF BREATH 18 g 01/19/20 25 Active oxyCODONE (Roxicodone) 5 MG immediate release tabletIndicatio ns:Pain Take 1 tablet (5 mg) by mouth every 8 (eight) hours if needed for severe pain. 56 tablet 01/24/20 25 Active FREESTYLE LITE test stripIndication s:Type 2 diabetes mellitus without complication, unspecified whether fpc insulin use ([facility]) TEST BLOOD SUGAR TWICE DAILY 50 strip 11 02/06/20 25 Active prednisoLONE acetate (Pred-Forte) 1 % ophthalmic suspension INSTILL 1 DROP IN THE AFFECTED EYE FOUR TIMES DAILY. START AFTER PROCEDURE AND USE FOR 4 DAYS DIRECTED THEN STOP 01/27/20 25 Active omeprazole (PriLOSEC) [address] capsuleIndicati ons:Gastroesoph ageal reflux disease without esophagitis TAKE 1 CAPSULE BY MOUTH EVERY MORNING BEFORE A MEAL 90 capsule 3 02/14/20 25 Active FREESTYLE LITE test stripIndication s:Type 2 diabetes mellitus without complication, unspecified whether fpc insulin use ([facility]) TEST BLOOD SUGAR TWICE DAILY 50 strip 11 02/29/20 24 2024 Discontinued omeprazole (PriLOSEC) [address] capsuleIndicati ons:Gastroesoph ageal reflux disease without esophagitis TAKE 1 CAPSULE ON PACKAGE EVERY MORNING BEFORE A MEAL 90 capsule 3 03/13/20 24 2024 Discontinued Active Problems Patient Care Coordination No te Formatting of this note migh t be different from the original. 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 He would like referral to [facility] , new referral placed 09/04/24 Assessment & Plan (09/04/2024 4:56 PM EST): -referral placed to Podiatry 04/06/[address] Daniels, he was not happy with with visit. He would like referral to [facility] , new referral placed 09/04/24 Assessment & Plan (04/06/2024 9:55 AM EDT): -referral placed to Podiatry 04/06/2024 Other specified health status 06/03/2023 Overview (09/04/2024): -next physical exam due after 09/04/2025 -eye care facilitated by [facility] and [facility] -dental home is [facility] [place]. -healthcare Proxy completed and filed 04/06/2024. Assessment & Plan (09/04/2024 5:02 PM EST): -next physical exam due after 09/04/2025 -eye care facilitated by [facility] and [facility] -dental home is [facility] [place]. -healthcare Proxy completed and filed 04/06/2024. Assessment & Plan (04/06/2024 9:51 AM EDT): -next physical exam due after 06/04/2024. -eye care facilitated by [facility]. -dental home is [facility] [place]. -healthcare Proxy completed and filed 04/06/2024. Assessment & Plan (06/04/2023 9:45 AM EDT): -next physical exam due after 06/04/2024. -eye care facilitated by [facility]. -dental home is [facility] [place]. Ascending aorta dilation 04/06/2023 Overview (01/15/2025): Followed by Sharon LEWIS for [facility]. Seen 01/14/25. -Hx of dilated [...] EST): Followed by Sharon Guardado NP-C for [facility]. Seen 05/30/24 -Hx of dilated [...] (11/13/2024): -Followed by Sharon Guardado NP-C for [facility]. -Known hx of Bicuspid aortic valve without stenosis or regurgitation. Followed by echocardiograms. Last echo 08/25/2023 shows mild calcification of the aortic valve, no regurgitation or stenosis. Repeat echo ordered 2023. -Sharon AREVALOC for [facility] 11/2024 Prior notes indicate a [...] Overview (05/31/2024): Followed by Sharon LEWIS for [facility] 05/30/24. History of leg edema [...] for September 2024. 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 Minnie Santillan 05/23/24 -On Actemra 162 [...] Plan (09/04/2024 5:00 PM EST): Seen by curb and gutter laborer Dr. Minnie Santillan 05/23/24 -On Actemra 162 [...] Plan (04/06/2024 9:51 AM EDT): Followed by curb and gutter laborer. Per note 11/18/23:On Actemra 162 mg every [...] the right ECU swelling does not improve Marble Installer Supervisor would like to restart hydroxychloroquine, will refer patient to Ophthalmology for a baseline hydroxychloroquine screening. If patient is cleared. Will start hydroxychloroquine Continue Rasuvo 25 mg weekly + Actemra every other week. Chest CTA 10/2022 showed no evidence of ILD T-spot and Hepatitis panel -ve 11/2023,. Labs before next visit in 3 months via rheumatology Seen by curb and gutter laborer Dr. Minnie Santillan 02/23/24 -On Actemra 162 [...] Plan (06/04/2023 9:39 AM EDT): -Followed by curb and gutter laborer Dr. Fisher. -Currently on prednisone 2 mg daily -med rec to make sure we have correct meds on file -Continue Oxycodone 5mg BID as needed for pain -Did not tolerate Methotrexate, then Leflunomide 20mg daily but then d/c due to rash Assessment & Plan (11/20/2022 10:23 AM EST): -Followed by curb and gutter laborer Dr. Fisher. -Currently on prednisone 2 mg [...] dilatation measuring 4cm and ascending aorta 4.3cm Crew Supervisor Nanette Leonard seen in April 2022. Followed by Sharon AREVALOC for [facility] 05/30/24. History of leg edema [...] planned for September 2024. -Sharon AREVALOC for [facility] 11/2024 Thoracic aortic ectasia Category: [...] dilatation measuring 4cm and ascending aorta 4.3cm Crew Supervisor Nanette Leonard seen in April 2022. Followed by Sharon LEWIS for [facility] 05/30/24. History of leg edema [...] dilatation measuring 4cm and ascending aorta 4.3cm Crew Supervisor Nanette Winter seen in April 2022. Assessment & Plan [...] dilatation measuring 4cm and ascending aorta 4.3cm Crew Supervisor Nanette Winter seen in April 2022. Assessment & Plan [...] dilatation measuring 4cm and ascending aorta 4.3cm Crew Supervisor Nanette Winter seen in April 2022. Currently on Rasuvo [...] -Vascepa 2 grams twice daily started by [facility] 05/22/24 Assessment & Plan (04/06/2024 9:52 AM [...] agreeable with plan to be transported to [facility] via ambulance . Case discussed with provider at [facility] ER Cutaneous skin tags 05/18/2023 03/30/20 24 [...] Encounters Date Type Department Care Team Description 02/12/2025 Refill [facility] [address] [place] [address] Daisha Crane MD Gastroesophageal reflux disease without esophagitis 02/09/2025 Telephone [facility] [address] [place] [address] Daisha Crane MD DME 02/04/2025 Refill [facility] MEDICINE [address] [place] [address] Daisha Crane MD Type 2 diabetes mellitus without complication, unspecified whether fpc insulin use ([facility]) 02/02/2025 Travel 01/23/2025 Refill [facility] [address] [place] [address] Daisha Crane MD Pain 01/18/2025 Refill [facility] [address] [place] [address] Daisha Crane MD Mild intermittent asthma without complication 01/17/2025 Refill [facility] [address] [place] [address] Cara Whitfield MD Vitamin D deficiency 01/09/2025 Refill [facility] [address] [place] [address] Daisha Crane MD Rheumatoid arthritis involving multiple sites with positive rheumatoid factor ([facility]) 01/08/2025 Refill [facility] [address] [place] [address] Daisha Crane MD Pain 01/02/2025 Orders Only GENERIC EXTERNAL DATA DEPARTMENT Provider, Generic External Data 12/20/2024 Orders Only [facility] External Provider, [facility] Heart murmur (Primary Dx) 12/15/2024 9:30 AM EST Clinical Support [facility] [address] [place] [address] Loyda Banda, lining ironer right shoulder pain 12/15/2024 Telephone [facility] [address] [place] [phone] Daisha Crane MD May Recalls 12/15/2024 Refill [facility] [address] [place] [address] Loyda Banda RN Pain 12/15/2024 Travel 12/04/2024 Telephone [facility] [address] [place] [address] Daisha Crane MD Referral 11/26/2024 Refill [facility] [address] [place] [address] Cara Whitfield MD Constipation, unspecified constipation type 11/26/2024 Refill [facility] [address] [place] [address] Daisha Crane MD Constipation, unspecified constipation type from Last 3 Months Immunizations Name Administration [...] Description 02/26/2025 11:00 AM EDT Telemedicine [facility] [address] [place] [address] Loyda Banda, RN [address] [place] [address] 03/07/2025 10:15 AM EDT Office Visit [facility] [address] [facility] [place] [place] [address] Daisha Crane MD [address] [place] [address] Health Maintenance Due Date Last Done Comments [...] Result Component 6.9( 10:06 AM EST) No Lias Anguiano PharmD Procedures Procedure Name Priority Date/Time [...] 2 diabetes mellitus without complication, unspecified whether fpc insulin use ([facility]) POCT GLYCATED HEMOGLOBIN, TOTAL Routine 09/04/2024 10:06 AM EST Type 2 diabetes mellitus without complication, unspecified whether manager intermediate insulin use (CMS/HCC) HEPATITIS PANEL, GENERAL Routine 11/11/2023 10:39 AM EST HM COLONOSCOPY Routine 12/21/2020 from Last 3 Months or Most Recently Relevant to Health Maintenance Results * CTA Chest w/ and w/o Contrast (01/02/2025 9:04 AM EST) Anatomical Region Laterality Modality Body, Chest Computed Tomogra phy 01/02/2025 9:04 AM EST Narrative 01/02/2025 3:42 PM EST ? [facility] ?[address] ?[place] [address] ? CT Scan Report ? Signed ? Patient: Patrice Jenkins ?MR#: [id number] ?? [id number] ? : 1945 ?Acct:[id number] ? Age/Sex: 79 / M ?ADM Date: 01/02/25 ? Loc: HO.CT ? Attending Dr: Sharon LEWIS ? Ordering Physician: Sharon Guardado ?? Date of Service: 01/02/25 ?? Procedure(s): CT angio chest aorta ?? Accession Number(s): [id number] ? cc: Daisha Crane MD; Sharon Guardado ? Report Number: ?? [id number]: Total DLP = ??151.00 mGy-cm ?? EXAMINATION: [...] DD/ 0904 ? TD/TT: 01/02/25 0930 ? Animal Shelter Worker: ? Procedure Note Tiffani Garcia - 01/02/[address] [address] [address] Scan Report Signed Patient: Konrad JarrellPatriceMR#: [id number] : 7Acct:[id number] Age/Sex: 79 / MADM Date: 01/02/25 Loc: HO.CT Attending Dr: Sharon LEWIS Ordering Physician: Sharon Guardado Date of Service: 01/02/25 Procedure(s): CT angio chest aorta Accession Number(s): [id number] cc: Daisha Crane MD; Sharon Guardado Report Number: [id number]: Total DLP = 151.00 mGy-cm EXAMINATION: CT [...] Bishnu Duran MD 01/02/2025 03:39 PM EST RP Dictated By: Bishnu Luna MD Signed By: <Electronically signed by Bishnu Vieyra MDin OV> 01/02/25 1539 DD/ 0904 TD/TT: 01/02/25 0930 Animal Shelter Worker: us [facility] External Provider IMG CT PROCEDURES Final Result * POCT Creatinine GFR (01/02/2025 9:03 AM EST) POCT Creatinine 0.9 0.5 - 1.4 mg/dL [facility] GFR POC >60 [facility] Comment:Chronic Kidney Disea se: Estimated GFR < 60 mL/min/1.61q5Fkiwso Kidney Disease: Estimated GFR < 15 mL/min/1.73m2 01/02/2025 9:03 AM EST 01/02/2025 12:48 PM EST Narrative [facility] - 01/02/2025 12:50 PM EST [id number] Generic External Data Provider LAB POINT OF CARE TEST DOCKED DEVICE ORDERABLES Final Result [facility] [address] [place] [phone] * Stress test with myocardial perfusion (12/20/2024 8:16 AM EST) 12/20/2024 8:16 AM EST Narrative [facility] - 12/24/2024 2:57 PM EST ? [facility] ?[address] ?[place] [address] ?Nuclear Medicine Report ? Signed ? Patient: Patrice Jenkins ?MR#: [id number] ?? [id number] ? : 1945 ?Acct:[id number] ? Age/Sex: 79 / M ?ADM Date: 02/19/25 ? Loc: HO.CARD ? Attending Dr: Sharon LEWIS ? Ordering Physician: Sharon Guardado ?? Date of Service: 12/20/24 ?? Procedure(s): NM cardiolite stress test ?? Accession Number(s): [id number] ? cc: Daisha Crane MD; Sharon Guardado [...] Curran MD ??12/24/2024 02:54 ?? PM EST RP ? Dictated By: ?Volodymyr Curran MD ? Signed By: ?<Electronically signed by Volodymyr Curran MD in OV> ?12/24/244 ? DD/ ? TD/TT: 12/21/24 1215 ? Animal Shelter Worker: ? Procedure Note Donotkallieinterpreter, Image - 12/24/2024 [place] [address] Nuclear Medicine Report Signed Patient: Patrice JenkinsMR#: [id number] : 1945cct:[id number] Age/Sex: 79 / MADM Date: 12/20/24 Loc: VELVET Attending Dr: Sharon LEWIS Ordering Physician: Sharon Guardado Date of Service: 12/20/24 Procedure(s): NM cardiolite stress test Accession Number(s): [id number] cc: Daisha Crane MD; Sharon Guardado Lexiscan [...] Volodymyr Curran MD 12/24/2024 02:54 PM EST RP Dictated By: Volodymyr Curran MD Signed By: <Electronically signed by Volodymyr Curran MD inOV> 12/24/24 1454 DD/ 0816 TD/TT: 12/21/24 1215 Animal Shelter Worker: [facility] External Provider CV STRE SS PROCEDURES Final Result Performing Organization Address City/State/[facility] Co de Phone Number [facility] [address] [place] [phone] * POCT SAUNDRA-14 Urine Drug Screen (12/15/2024 10:01 AM EST) Oxycodone Screen, Urine Positive Urine Urine specimen obtained by clean catch procedure / Unknown 12/15/2024 10:01 AM EST Narrative Loyda Banda RN - 12/15/2024 10:01 AM EST .UTOX cup Lot#[id number] Exp. 06/20/26 Internal Pass Control Daisha Crane MD POINT OF CARE TEST ENTER/E DIT ORDERABLES Final Result * US ABDOMINAL AORTIC ANEURYSM (12/01/2024 8:37 AM EST) Anatomical Region Laterality Modality Abdomen Ultrasound 12/01/2024 8:37 AM EST Narrative 12/01/2024 9:07 AM EST ? [facility] ?[address] ?[place] [address] ? Ultrasound Report ? Signed ? Patient: Patrice Jenkins ?MR#: [id number] ?? [id number] ? : 1945 ?Acct:[id number] ? Age/Sex: 79 / M ?ADM Date: /31/25 ? Loc: HO.US ? Attending Dr: Sharon LEWIS ? Ordering Physician: Sharon Guardado ?? Date of Service: 12/01/24 ?? Procedure(s): US abdominal aortic aneurysm ?? Accession Number(s): [id number] ? cc: Daisha Crane MD; Sharon Guardado [...] DD/ 0837 ? TD/TT: 12/01/24 0842 ? Animal Shelter Worker: ? Procedure Note Radha, Image - 12/01/[address] [address] Ultrasound Report Signed Patient: Patrice JenkinsMR#: [id number] : 7Acct:[id number] Age/Sex: 79 / MADM Date: 12/01/24 Loc: HO.US Attending Dr: Sharon Guardado HOUSEMAN-Zaria Ordering Physician: Sharon Guardado Date of Service: 12/01/24 Procedure(s): US abdominal aortic aneurysm Accession Number(s): [id number] cc: Daisha Crane MD; Sharon Guardado HOUSEMAN-C EXAMINATION: US ABDOMEN ANEURYSM SCREENING HISTORY: I77.810 [...] Connor Higuera MD 12/01/2024 09:04 AM EST RP Dictated By: Connor Higuera MD Signed By: <Electronically signed by Connor Higuera MD in OV> 12/01/24 0904 DD/ 0837 TD/TT: 12/01/24 0842 Animal Shelter Worker: [facility] External Provider IMG US PROCEDURES Final Result * (ABNORMAL) Lipid Panel, Standard (10/09/2024 8:05 AM EST) Triglycerides 122 <150 mg/dL [facility] Comment:Desirable Triglyceri de: less than 150 mg/dLBorderline High Triglyceride 150-199 mg/dLHigh Triglyceride: 200-499 mg/dLVery High Triglyceride: greater than or equal to 5OO mg/dL Cholesterol 104 <200 mg/dL [facility] Comment:Desirable Cholestero l: less than 200 mg/dLBorderline High Cholesterol: 200-239 mg/dLHigh Cholesterol: greater than 239 mg/dL LDL Cholesterol Calculated 43 <100 mg/dL [facility] Comment:Desirable LDL: less than 100 mg/dLNear Optimal/Above Optimal LDL: 110- 129 mg/dLBorderline High LDL: 130-159 mg/dLHigh LDL: 160-189 mg/dLVery High LDL: greater than or equal to 190 mg/dL HDL Cholesterol 37(L) >40 mg/dL [facility] Comment:Desirable HDL: great er than 40 mg/dL Note: This HDL assay may give artificially low results in patients with liver disease. Blood Venous blood specimen / Unknown 10/09/2024 8:05 AM EST 10/09/2024 11:50 AM EST Daisha Crane MD LAB BLOOD ORDERABLES Final Result Performing Organization Address [facility] Co de Phone Number [facility] [address] [place] [phone] * Albumin, Random Urine W/Creatinine (09/15/2024 8:03 AM EST) Creatinine, Urine 107.16 mg/dL [facility] Microalbumin Urine 20.0 mg/L [facility] Microalbum Creatinine Ratio Ur 18.6 <30 ug/mg cr [facility] Comment:Albumin/Creatinine R atio Reference Ranges: Normal: < 30 ug/mg creatinine Microalbuminuria: 30 - 300 ug/mg creatinineClinical Albuminuria: > 300 ug/mg creatinine Urine 09/15/2024 8:03 AM EST 09/15/2024 11:09 AM EST Daisha Crane MD LAB URINE ORDERABLES Final Result Performing Organization Address [facility] Co de Phone Number [facility] [address] [place] [phone] * (ABNORMAL) POCT HGB A1C (09/04/2024 10:06 AM EST) Hemoglobin A1C 6.9(A) 4.0 - 6.0 % QC Media Lot # [id number] Lot# Expiration Date Blood 09/04/2024 10:0 6 AM EST Daisha Crane MD POINT OF CARE TEST ENTER/E DIT ORDERABLES Final Result * Hepatitis Panel, General (11/11/2023 10:39 AM EST) Hepatitis A IgM Nonreactive Nonreactive [facility] Comment:IgM antibodies to WAGONER V not detected; does not exclude earlyacute or recovered HAV infection. ~Hepatitis B Surface Antibody NONREACTIVE Nonreactive [facility] Comment:Nonreactive: < 8.00 mIU/mL Hepatitis B Core Antibody Nonreactive Nonreactive [facility] Hepatitis C Antibody Nonreactive Nonreactive [facility] Comment:Antibodies to HCV no t detected; does not exclude early acuteHCV infection. Hepatitis B Surface Ag Negative Negative [facility] 11/11/2023 10:3 9 AM EST 11/11/2023 10:39 AM EST Generic External Data Provider LAB BLOOD ORDERAB LES Final Result Performing Organization Address City/State/[facility] Co de Phone Number [facility] [address] [place] [phone] * Colonoscopy (12/21/2020) Colonoscopy tubular adenoma with Dr. Rodríguez Historical Provider HEALTH MAINTENANCE Final Result from Last 3 Months or Most Recently Relevant to Health Maintenance Insurance [facility] Advance Directives Documents on File Type Date Recorded Patient Blogs Manager Expl anation Advance Directives and Living Will 04/06/2024 Health Care Proxy 04/06/24 Care Teams Choirmaster Relationship Specialty Start Date End Date Shiloh, MD Daisha [address] [place] [address] PCP - General Family Medicine 11/01/18 Alissa Santillan MD [address] [place] [address] Rheumatology 11/09/24 Sharon Guardado [address] 3rd [place] [address] Cardiology 11/13/24 Cedric Lujan MD [address] [place] [address] Orthopaedic Surgery 11/23/24 Rory Angeles MD [address] [place] [address] Pain Medicine 02/06/25
--- OUTSIDE RECORDS SUMMARY | 2025-02-22 10:31 | XMS_ITS | Encounter Summary ---
Author Organization [employer] [facility] Address [address] [facility] 7t [place] [address] Care Team Providers Care Pesticide Chemist Name Role Phone Daisha Crane MD Primary Care Provider +1- [phone] Lisa Liao PharmD Unavailable Alissa Santillan MD Unavailable Sharon Guardado Unavailable Cedric Lujan MD Unavailable Rory Angeles MD Unavailable Reason for Visit * Reason Onset Date Comments Med Refill 03/15/2023 Encounter Details Date Type Department Care Team (Late st Contact Info) Description 03/15/2023 Telephone [facility] 230 [place], [place] [phone] Daisha Crane MD 230 [place], [place] [phone] Med Refill Social History Tobacco Use Types [...] encounter Miscellaneous Notes * Telephone Encounter - Keern Todd - 03/15/2023 1:33 PM EDT TC from pt requesting med refill for medication oxyCODONE (Roxicodone) 5 MG immediate release tablet. documented in this encounter Plan of Treatment Upcoming Encounters Date Type Department Care Team (Late st Contact Info) Description 02/26/2025 11:00 AM EDT Telemedicine [facility] 505 [place] [address] Loyda Banda RN 505 [place] [address] 03/07/2025 10:15 AM EDT Office Visit [facility] 230 [place] [address] Daisha Crane MD 230 [place] [address] documented as of this encounter Visit Diagnoses Not on filedocumented in this encounter Additional Health Concerns Assessment Noted Time PHQ-9 Depression Total Score: 0 11/23/19 23 10:39 AM EST documented as of this encounter Care Teams Pesticide Chemist Relationship Specialty Start Date End Date Daisha Crane MD 230 [place] [address] PCP - General Family Medicine 11/01/18 Lisa Liao, GenevaD 230 [place] [address] Pharmacist Internal Medicine 04/06/23 02/02/25 Alissa Santillan MD [address] [place] [address] Rheumatology 11/09/24 Sharon Guardado [address] 3rd [place] [address] Cardiology 11/13/24 Cedric Lujan MD [address] [place] [address] Orthopaedic Surgery 11/23/24 Rory Angeles MD [address] [place] [address] Drive [address] [place] [address] Pain Medicine 02/06/25 documented as of this encounter
--- OUTSIDE RECORDS SUMMARY | 2025-02-22 10:31 | XMS_ITS | Encounter Summary ---
Author Organization [employer] Address 75 [facility] 7t [place] [address] Care Team Providers Care Snowblower Mechanic Name Role Phone Daisha Crane MD Primary Care Provider +1- [phone] Alissa Santillan MD Unavailable Sharon Guardado Unavailable Cedric Lujan MD Unavailable Rory Angeles MD Unavailable Reason for Visit * Reason Onset Date Comments DME 02/09/2025 Encounter Details Date Type Department Care Team (Late st Contact Info) Description 02/09/2025 Telephone [facility] 230 [place], [place] [phone] Daisha Crane MD 230 [place], [place] [phone] DME Social History Tobacco Use Types Packs/Day Years [...] encounter Miscellaneous Notes * Telephone Encounter - Shaina Benjamin - 02/22/2025 9:16 AM EDT Tc from pt REAM CUTTER regarding message below. REAM CUTTER stated that they haven't receive any DME Hao You (REAM CUTTER) at [phone] (Urdu) * Telephone Encounter - Soo De La Rosa [place] - 02/09/2025 3:05 PM EDT ...DME for Disposable underpads/bedpads from Naomi placed on PCP desk for signature. documented in this encounter Plan of Treatment Upcoming Encounters Date Type Department Care Team (Late st Contact Info) Description 02/26/2025 11:00 AM EDT Telemedicine [facility] 505 [place] [address] Lodya Banda, RN 505 [place] [address] 03/07/2025 10:15 AM EDT Office Visit [facility] 230 [place] [address] Daisha Crane MD 230 [place] [address] documented as of this encounter Goals Goal Patient Goal Type Associated Problems Recent Progress Patient-Stated? Author Blood Pressure < 140/90 Blood Pressure 110/56(2024 9:11 AM EDT) No Piers-Gambl eIdalmissa, PharmD Hemoglobin A1c < 8 Result Component 6.9( 10:06 AM EST) No Piers-Gambl e, Lisa, PharmD documented as of this encounter Visit Diagnoses Not on filedocumented in this encounter Additional Health Concerns Assessment Noted Time PHQ-9 Depression Total Score: 0 04/06/20 24 9:11 AM EDT documented as of this encounter Care Teams Snowblower Mechanic Relationship Specialty Start Date End Date Daisha Crane MD 230 [place] [address] PCP - General Family Medicine 11/01/18 Alissa Santillan MD [address] [place] [address] Rheumatology 11/09/24 Sharon Guardado [address] 3rd [place] [address] Cardiology 11/13/24 Cedric Lujan MD [address] [place] [address] Orthopaedic Surgery 11/23/24 Rory Angeles MD [address] [place] [address] Pain Medicine 02/06/25 documented as of this encounter
--- OUTSIDE RECORDS SUMMARY | 2025-02-22 10:31 | XMS_ITS | Encounter Summary ---
Author Organization [employer] [facility] Address [address] [facility] 7t [place] [address] Care Team Providers Care Supervisor Cellars Name Role Phone Daisha Crane MD Primary Care Provider + [phone] Lisa Liao PharmD Unavailable Alissa Santillan MD Unavailable Sharon Guardado Unavailable Cedric Lujan MD Unavailable Rory Angeles MD Unavailable Encounter Details Date Type Department Care Team (Late st Contact Info) Description 03/05/2023 Orders Only [facility] 230 [place], [place] [phone] Radha Johnson LPN Social History Tobacco Use [...] Telemedicine [facility] 505 [place], [place] [phone] Loyda Banda, SO 505 [place] [address] 03/07/2025 10:15 AM EDT Office Visit [facility] 230 [place] [address] Daisha Crane MD 230 [place] [address] documented as of this encounter Visit Diagnoses Not on filedocumented in this encounter Additional Health Concerns Assessment Noted Time PHQ-9 Depression Total Score: 0 11/23/19 10:39 AM EST documented as of this encounter Care Teams Supervisor Cellars Relationship Specialty Start Date End Date Daisha Crane MD 230 [place] [address] PCP - General Family Medicine 11/01/18 Lisa Liao, GenevaD [address] [place] [address] Pharmacist Internal Medicine 04/06/23 02/02/25 Alissa Santillan MD [address] [place] [address] Rheumatology 11/09/24 Sharon Guardado [address] 3rd [place] [address] Cardiology 11/13/24 Cedric Lujan MD [address] [place] [address] Orthopaedic Surgery 11/23/24 Rory Angeles MD [address] [place] [address] Pain Medicine 02/06/25 documented as of this encounter
--- OUTSIDE RECORDS SUMMARY | 2025-02-22 10:31 | XMS_ITS | Encounter Summary ---
Author Organization [facility] [facility] Address 75 [facility] 7t [place] [address] Care Team Providers Care Grades 9 Through 12 Teacher Name Role Phone Daisha Crane MD Primary Care Provider + [phone] Lisa Liao PharmD Unavailable Alissa Santillan MD Unavailable Sharon Guardado Unavailable Cedric Lujan MD Unavailable Rory Angeles MD Unavailable Encounter Details Date Type Department Care Team (Late st Contact Info) Description 11/19/2022 Orders Only [facility] 230 [place], [place] [phone] Radha Johnson LPN Social History Tobacco Use [...] Description 02/26/2025 11:00 AM EDT Telemedicine [facility] 505 [place], [place] [phone] Loyda Banda, SO 505 [place] [address] 03/07/2025 10:15 AM EDT Office Visit [facility] 230 [place] [address] Daisha Crane MD [address] [place] [address] documented as of this encounter Visit Diagnoses Not on filedocumented in this encounter Care Teams Grades 9 Through 12 Teacher Relationship Specialty Start Date End Date Daisha Crane MD [address] [place] [address] PCP - General Family Medicine 11/01/18 Lisa Liao, GenevaD [address] [place] [address] Pharmacist Internal Medicine 04/06/23 02/02/25 Alissa Santillan MD [address] [place] [address] Rheumatology 11/09/24 Sharon Guardado [address] 3rd [place] [address] Cardiology 11/13/24 Cedric Lujan MD [address] [place] [address] Orthopaedic Surgery 11/23/24 Rory Angeles MD [address] [place] [address] Pain Medicine 02/06/25 documented as of this encounter
--- OUTSIDE RECORDS SUMMARY | 2025-02-22 10:31 | XMS_ITS | Encounter Summary ---
Author Organization [facility] Address [address] [facility] 7t [place] [address] Care Team Providers Care Smoke Jumper Name Role Phone Daisha Crane MD Primary Care Provider +1- [phone] Lisa Liao PharmD Unavailable Alissa Santillan MD Unavailable Sharon Guardado Unavailable Cedric Lujan MD Unavailable Rory Angeles MD Unavailable Reason for Visit * Reason Onset Date Comments Med Refill 06/07/2023 Encounter Details Date Type Department Care Team (Late st Contact Info) Description 06/07/2023 Telephone [facility] 230 [place], [place] [phone] Hiram Palma MD 230 [place], [place] [phone] Med Refill Social History Tobacco Use Types [...] MG immediate release tablet Please sent to [facility] [place], [place] - [address] [place] [address] documented in this encounter Plan of Treatment Upcoming Encounters Date Type Department Care Team (Late st Contact Info) Description 02/26/2025 11:00 AM EDT Telemedicine [facility] 505 [place], [place] [phone] Loyda Banda RN 505 [place] [address] 03/07/2025 10:15 AM EDT Office Visit [facility] 230 [place] [address] Daisha Crane MD [address] [place] [address] documented as of this encounter Goals Goal [...] documented as of this encounter Care Teams Smoke Jumper Relationship Specialty Start Date End Date Daisha Crane MD [address] [place] [address] PCP - General Family Medicine 11/01/18 Lisa Liao, GenevaD [address] [place] [address] Pharmacist Internal Medicine 04/06/23 02/02/25 Alissa Santillan MD [address] [place] [address] Rheumatology 11/09/24 Sharon Guardado [address] 3rd [place] [address] Cardiology 11/13/24 Cedric Lujan MD [address] [place] [address] Orthopaedic Surgery 11/23/24 Rory Angeles MD [address] [place] [address] Pain Medicine 02/06/25 documented as of this encounter
--- OUTSIDE RECORDS SUMMARY | 2025-02-22 10:31 | XMS_ITS | Encounter Summary ---
Author Organization [employer] Address [address] [facility] 7t [place] [address] Care Team Providers Care Icu Specialist Name Role Phone Daisha Crane MD Primary Care Provider + [phone] Lisa Liao PharmD Unavailable Alissa Santillan MD Unavailable Sharon Guardado Unavailable Cedric Lujan MD Unavailable Rory Angeles MD Unavailable Reason for Visit * Reason Comments Med Refill Encounter Details Date Type Department Care Team (Late st Contact Info) Description 09/03/2023 Refill [facility] 230 [place], [place] [phone] Key Gregory MD 230 [place], [place] [phone] Tinea versicolor Social History Tobacco Use Types [...] Description 02/26/2025 11:00 AM EDT Telemedicine [facility] 505 [place] [address] Loyda Banda RN 505 [place] [address] 03/07/2025 10:15 AM EDT Office Visit [facility] 230 [place] [address] Daisha Crane MD 230 [place] [address] documented as of this encounter Goals Goal [...] documented as of this encounter Care Teams Icu Specialist Relationship Specialty Start Date End Date [place], MD Daisha 230 [place] [address] PCP - General Family Medicine 11/01/18 Lisa Liao PharmD 230 [place] [address] Pharmacist Internal Medicine 04/06/23 02/02/25 Alissa Santillan MD [address] [place] [address] Rheumatology 11/09/24 Sharon Guardado [address] 3rd [place] [address] Cardiology 11/13/24 Cedric Lujan MD [address] [place] [address] Orthopaedic Surgery 11/23/24 Rory Angeles MD [address] [place] [address] Pain Medicine 02/06/25 documented as of this encounter
--- OUTSIDE RECORDS SUMMARY | 2025-02-22 10:31 | XMS_ITS | Encounter Summary ---
Author Organization [employer] Address [address] [facility] 7t [place] [address] Care Team Providers Care Product Mgmt Dev Manager Name Role Phone Daisha Crane MD Primary Care Provider + [phone] Lisa Liao PharmD Unavailable Alissa Santillan MD Unavailable Sharon Guardado Unavailable Cedric Lujan MD Unavailable Rory Angeles MD Unavailable Reason for Visit * Reason Comments Med Refill Encounter Details Date Type Department Care Team (Late st Contact Info) Description 08/31/2023 Refill [facility] 230 [place], [place] [phone] Key Gregory MD 230 [place], [place] [phone] Tinea versicolor Social History Tobacco Use Types [...] 02/26/2025 11:00 AM EDT Telemedicine [facility] 505 [place] [address] Loyda Banda RN 505 [place] [address] 03/07/2025 10:15 AM EDT Office Visit [facility] 230 [place] [address] Daisha Crane MD 230 [place] [address] documented as of this encounter Goals Goal [...] documented as of this encounter Care Teams Product Mgmt Dev Manager Relationship Specialty Start Date End Date [place], MD Daisha 230 [place] [address] PCP - General Family Medicine 11/01/18 Lisa Liao PharmD 230 [place] [address] Pharmacist Internal Medicine 04/06/23 02/02/25 Alissa Santillan MD [address] [place] [address] Rheumatology 11/09/24 Sharon Guardado [address] 3rd [place] [address] Cardiology 11/13/24 Cedric Lujan MD [address] [place] [address] Orthopaedic Surgery 11/23/24 Rory Angeles MD [address] [place] [address] Pain Medicine 02/06/25 documented as of this encounter
--- OUTSIDE RECORDS SUMMARY | 2025-02-22 10:31 | XMS_ITS | Encounter Summary ---
Author Organization [facility] Address [address] [facility] 7t [place] [address] Care Team Providers Care Vice President Education Name Role Phone Daisha Crane MD Primary Care Provider +1- [phone] Lisa Liao PharmD Unavailable Alissa Santillan MD Unavailable Sharon Guardado Unavailable Cedric Lujan MD Unavailable Rory Angeles MD Unavailable Encounter Details Date Type Department Care Team (Late st Contact Info) Description 12/08/2022 Abstract [facility] 230 [place], [place] [phone] Daisha Crane MD 230 [place], [place] [phone] Social History Tobacco Use Types Packs/Day Years [...] Info) Description 02/26/2025 11:00 AM EDT Telemedicine [facility] [place] [address] Loyda Banda, RN 505 [place], [place] 03/07/2025 10:15 AM EDT Office Visit [facility] 230 [place] [address] Daisha Crane MD 230 [place] [address] documented as of this encounter Procedures Procedure [...] documented as of this encounter Care Teams Vice President Education Relationship Specialty Start Date End Date Daisha Crane MD 230 [place] [address] PCP - General Family Medicine 11/01/18 Lisa Liao, GenevaD [address] [place] [address] Pharmacist Internal Medicine 04/06/23 02/02/25 Alissa Santillan MD [address] [place] [address] Rheumatology 11/09/24 Sharon Guardado [address] [place] [address] Cardiology 11/13/24 Cedric Lujan MD [address] [place] [address] Orthopaedic Surgery 11/23/24 Rory Angeles MD [address] [place] [address] Pain Medicine 02/06/25 documented as of this encounter
--- OUTSIDE RECORDS SUMMARY | 2025-02-22 10:31 | XMS_ITS | Encounter Summary ---
Author Organization [employer] Address 75 [facility] 7t [place] [address] Care Team Providers Care Order Booker Name Role Phone Daisha Crane MD Primary Care Provider + [phone] Lisa Liao PharmD Unavailable Alissa Santillan MD Unavailable Sharon Guardado Unavailable Cedric Lujan MD Unavailable Rory Angeles MD Unavailable Reason for Visit * Reason Comments Med Refill Encounter Details Date Type Department Care Team (Late st Contact Info) Description 02/06/2024 Refill [facility] 230 [place], [place] [phone] Lisa Liao, PharmD 230 [place], [place] [phone] Social History Tobacco Use Types Packs/Day Years [...] [facility] 505 [place] [address] Loyda Banda, RN 505 [place] [address] 03/07/2025 10:15 AM EDT Office Visit [facility] 230 [place] [address] Daisah Crane MD 230 [place] [address] documented as of this encounter Goals Goal [...] documented as of this encounter Care Teams Order Booker Relationship Specialty Start Date End Date Daisha Crane MD 230 [place] [address] PCP - General Family Medicine 11/01/18 Lisa Liao, PharmD 230 [place] [address] Pharmacist Internal Medicine 04/06/23 02/02/25 Alissa Santillan MD [address] [place] [address] Rheumatology 11/09/24 Sharon Guardado [address] 3rd [place] [address] Cardiology 11/13/24 Cedric Lujan MD [address] [place] [address] Orthopaedic Surgery 11/23/24 Rory Angeles MD [address] [place] [address] Pain Medicine 02/06/25 documented as of this encounter
--- OUTSIDE RECORDS SUMMARY | 2025-02-22 10:31 | XMS_ITS | Encounter Summary ---
Author Organization [employer] [facility] Address 75 [facility] 7t [place] [address] Care Team Providers Care Online Merchandising Coordinator Name Role Phone Daisha Crane MD Primary Care Provider + [phone] Lisa Liao PharmD Unavailable +1- [phone] Alissa Santillan MD Unavailable Shaorn Guardado Unavailable Cedric Lujan MD Unavailable Rory Angeles MD Unavailable Encounter Details Date Type Department Care Team (Late st Contact Info) Description 03/15/2023 Orders Only [facility] 505 [place] [address] Jenn Polk LPN Social History Tobacco Use [...] Description 02/26/2025 11:00 AM EDT Telemedicine [facility] 505 [place] [address] Loyda Banda, RN 505 [place] [address] 03/07/2025 10:15 AM EDT Office Visit [facility] 230 [place] [address] Daisha Crane MD 230 [place] [address] documented as of this encounter Visit Diagnoses Not on filedocumented in this encounter Additional Health Concerns Assessment Noted Time PHQ-9 Depression Total Score: 0 11/23/19 10:39 AM EST documented as of this encounter Care Teams Online Merchandising Coordinator Relationship Specialty Start Date End Date Daisha Crane MD 230 [place] [address] PCP - General Family Medicine 11/01/18 Lisa Liao, GenevaD [address] [place] [address] Pharmacist Internal Medicine 04/06/23 02/02/25 Alissa Santillan MD [address] [place] [address] Rheumatology 11/09/24 Sharon Guardado [address]rd [place] [address] Cardiology 11/13/24 Cedric Lujan MD [address] [place] [address] Orthopaedic Surgery 11/23/24 Rory Angeles MD [address] [place] [address] Pain Medicine 02/06/25 documented as of this encounter
--- OUTSIDE RECORDS SUMMARY | 2025-02-22 10:31 | XMS_ITS | Encounter Summary ---
Author Organization [facility] Address [address] [facility] 7t [place] [address] Care Team Providers Care Cost Clerk Name Role Phone Daisha Crane MD Primary Care Provider +1- [phone] Lisa Liao PharmD Unavailable Alissa Santillan MD Unavailable Sharon Guardado Unavailable Cedric Lujan MD Unavailable Rory Angeles MD Unavailable Encounter Details Date Type Department Care Team (Late st Contact Info) Description 06/01/2023 Abstract [facility] 230 [place], [place] [phone] Daisha Crane MD 230 [place], [place] [phone] Social History Tobacco Use Types Packs/Day Years [...] Info) Description 02/26/2025 11:00 AM EDT Telemedicine [facility] 505 [place] [address] Loyda Banda, RN [address] [place] [address] 03/07/2025 10:15 AM EDT Office Visit [facility] 230 [place] [address] Daisha Crane MD 230 [place] [address] documented as of this encounter Goals Goal [...] documented as of this encounter Care Teams Cost Clerk Relationship Specialty Start Date End Date Daisha Crane MD [address] [place] [address] PCP - General Family Medicine 11/01/18 Lisa Liao, PharmD [address] [place] [address] Pharmacist Internal Medicine 04/06/23 02/02/25 Alissa Santillan MD [address] [place] [address] Rheumatology 11/09/24 Sharon Guardado [address] 3rd [place] [address] Cardiology 11/13/24 Cedric Lujan MD [address] [place] [address] Orthopaedic Surgery 11/23/24 Rory Angeles MD [address] [place] [address] Drive [address] [place] [address] Pain Medicine 02/06/25 documented as of this encounter
--- OUTSIDE RECORDS SUMMARY | 2025-02-22 10:31 | XMS_ITS | Encounter Summary ---
Author Organization [employer] [facility] Address [address] [facility] 7t [place] [address] Care Team Providers Care Electronics Utility Worker Name Role Phone Daisha Crane MD Primary Care Provider + [phone] Lisa Liao PharmD Unavailable Alissa Santillan MD Unavailable Sharon Guardado Unavailable Cedric Lujan MD Unavailable Rory Angeles MD Unavailable Encounter Details Date Type Department Care Team (Late st Contact Info) Description 10/22/2022 Orders Only [facility] [address] [place] [address] Radha Johnson LPN Social History Tobacco Use [...] [facility] 505 [place], [place] [phone] Loyda Banda, RN 505 [place], [place] [phone] 03/07/2025 10:15 AM EDT Office Visit [facility] 230 [place] [address] Daisha Crane MD 230 [place] [address] documented as of this encounter Visit Diagnoses Not on filedocumented in this encounter Care Teams Electronics Utility Worker Relationship Specialty Start Date End Date Daisha Crane MD 230 [place] [address] PCP - General Family Medicine 11/01/18 Lisa Liao, Nidia 230 [place] [address] Pharmacist Internal Medicine 04/06/23 02/02/25 Alissa Santillan MD [address] [place] [address] Rheumatology 11/09/24 Sharon Guardado [address] 3rd [place] [address] Cardiology 11/13/24 Cedric Lujan MD [address] [place] [address] Orthopaedic Surgery 11/23/24 Rory Angeles MD [address] [place] [address] Pain Medicine 02/06/25 documented as of this encounter
--- OUTSIDE RECORDS SUMMARY | 2025-02-22 10:31 | XMS_ITS | Encounter Summary ---
Author Organization [employer] Address [address] [facility] 7t [place] [address] Care Team Providers Care Quality Inspector Name Role Phone Daisha Crane MD Primary Care Provider +- [phone] Lisa Liao PharmD Unavailable Alissa Santillan MD Unavailable Sharon Guardado Unavailable Cedric Lujan MD Unavailable Rory Angeles MD Unavailable Encounter Details Date Type Department Care Team (Late st Contact Info) Description 11/18/2023 Telephone [facility] [address] [place], [place] [phone] Daisha Crane MD [address] [place], [place] [phone] Social History Tobacco Use Types Packs/Day Years [...] [facility] [address] [place] [address] Loyda Banda, RN [address] [place] [address] 03/07/2025 10:15 AM EDT Office Visit [facility] [address] [place] [address] Daisha Crane MD [address] [place] [id number] documented as of this encounter Goals Goal [...] documented as of this encounter Care Teams Quality Inspector Relationship Specialty Start Date End Date Daisha Crane MD [address] [place] [address] PCP - General Family Medicine 11/01/18 Lisa Liao, GenevaD [address] [place] [address] Pharmacist Internal Medicine 04/06/23 02/02/25 Alissa Santillan MD [address] [place] [address] Rheumatology 11/09/24 Sharon Guardado [address] 3rd [place] [address] Cardiology 11/13/24 Cedric Lujan MD [address] [place] [address] Orthopaedic Surgery 11/23/24 Rory Angeles MD [address] [place] [address] Pain Medicine 02/06/25 documented as of this encounter
--- OUTSIDE RECORDS SUMMARY | 2025-02-22 10:31 | XMS_ITS | Encounter Summary ---
Author Organization [employer] [facility] Address [address] [facility] 7t [place] [address] Care Team Providers Care Business Development Representative Name Role Phone Daisha Crane MD Primary Care Provider + [phone] Lisa Liao PharmD Unavailable Alissa Santillan MD Unavailable Sharon Guardado Unavailable Cedric Lujan MD Unavailable Rory Angeles MD Unavailable Encounter Details Date Type Department Care Team (Latest Contact Info) Description 03/10/2019 Abstract [facility] CONVERSIONS Dental, Provider, DDS Social [...] Description 02/26/2025 11:00 AM EDT Telemedicine [facility] MED [facility] PEDS [address] [place], [place] [phone] Loyda Banda, SO [address] [place] [address] 03/07/2025 10:15 AM EDT Office Visit [facility] MEDICINE [address] [place], [place] [phone] Daisha Crane MD [address] [place] [address] documented as of this encounter Visit Diagnoses Not on filedocumented in this encounter Care Teams Business Development Representative Relationship Specialty Start Date End Date Daisha Crane MD [address] [place] [address] PCP - General Family Medicine 11/01/18 Lisa Liao, GenevaD [address] [place] [address] Pharmacist Internal Medicine 04/06/23 02/02/25 Alissa Santillan MD [address] [place] [address] Rheumatology 11/09/24 Sharon Guardado [address] 3rd [place] [address] Cardiology 11/13/24 Cedric Lujan MD [address] [place] [address] Orthopaedic Surgery 11/23/24 Rory Angeles MD [address] [place] [address] Pain Medicine 02/06/25 documented as of this encounter
--- OUTSIDE RECORDS SUMMARY | 2025-02-22 10:31 | XMS_ITS | Encounter Summary ---
Author Organization [employer] [facility] Address [address] [facility] 7t [place] [address] Care Team Providers Care Piece Meat Trimmer Name Role Phone Daisha Crane MD Primary Care Provider +- [phone] Lisa Liao PharmD Unavailable [phone]- [phone] Alissa Santillan MD Unavailable Sharon Guardado Unavailable Cedric Lujan MD Unavailable Rory Angeles MD Unavailable Encounter Details Date Type Department Care Team (Late st Contact Info) Description 12/16/[address] [facility] MED & PEDS [address] [place], [place] [phone] Jenn Polk LPN Social History Tobacco Use [...] Info) Description 02/26/2025 11:[address] [facility] MED [facility]S [address] [facility] [place] [address] Loyda Banda, SO [address] [facility] [place] [address] 03/07/2025 10:15 AM EDT Office Visit [facility] MEDICINE [address] [place] [address] Daisha Crane MD [address] [place] [address] documented as of this encounter Visit Diagnoses Not on filedocumented in this encounter Additional Health Concerns Assessment Noted Time PHQ-9 Depression Total Score: 0 11/23/19 10:39 AM EST documented as of this encounter Care Teams Piece Meat Trimmer Relationship Specialty Start Date End Date Daisha Crane MD [address] [place] [address] PCP - General Family Medicine 11/01/18 Lisa Liao, GenevaD [address] [place] [address] Pharmacist Internal Medicine 04/06/23 02/02/25 Alissa Santillan MD [address] [place] [address] Rheumatology 11/09/24 Sharon Guardado [address] 3rd [place] [address] Cardiology 11/13/24 Cedric Lujan MD [address] [place] [address] Orthopaedic Surgery 11/23/24 Rory Angeles MD [address] [place] [address] Pain Medicine 02/06/25 documented as of this encounter
[2025-02-22 11:13] LABS: MANUAL DIFF FLAG NO
[2025-02-22 11:32] LABS: Basophils Percent Auto 0.5 % (0-2); Eosinophils Absolute Auto 0.1 X10*3/uL (0.0-0.4); Eosinophils Percent Auto 1.6 % (0-4); Hematocrit 33.2 % (42.0-52.0); Imm Gran Abs Auto 0.03 X10*3/uL (0.00-0.03); Imm Gran Pct Auto 0.4 % (0.0-0.4); Lymphocytes Absolute Auto 1.6 X10*3/uL (1.2-4.9); Mean Corpuscular HGB Conc 30.1 g/dl (31.0-36.0); Mean Corpuscular Hemoglobin 25.1 pg (27.0-33.0); Mean Corpuscular Volume 83.4 fL (80.0-98.0); Mean Platelet Volume 10.2 fL (9.4-12.4); Monocytes Absolute Auto 0.4 X10*3/uL (0.1-1.2); Monocytes Percent Auto 5.8 % (2-11); Neutrophils Absolute Auto 5.1 x10*3/uL (2.0-8.3); Neutrophils Percent Auto 69.7 % (45-73); Platelet Count 205 X10*3/uL (160-400); Red Blood Count 3.98 X10*6/uL (4.60-5.80); Red Cell Distribution Width 20.1 % (11.0-16.0); White Blood Count 7.4 X10*3/uL (4.8-10.8)
[2025-02-22 11:42] LABS: Alanine Aminotransferase 40 U/L (0-40); Albumin Level 4.3 g/dL (3.5-5.0); Alkaline Phosphatase 50 U/L (39-117); Anion Gap 12 (12-20); Aspartate Amino Transferase 40 U/L (5-37); Bilirubin Total 0.8 mg/dL (0.0-1.0); Blood Urea Nitrogen 8 mg/dL (9-16); C Reactive Protein < 0.04 mg/dL (< or = 0.50); Calcium 9.8 mg/dL (8.4-10.2); Carbon Dioxide 27 mmol/L (22-29); Chloride 104 mmol/L (96-108); Cholesterol 108 mg/dL (<200); Estimated Glomerular Filt Rate > 60; Glucose Random 112 mg/dL (60-115); HDL Cholesterol 41 mg/dL (>40); LDL Cholesterol Calculated 38 mg/dL (<100); Potassium 3.8 mmol/L (3.3-5.1); Sodium 139 mmol/L (135-145); Total Protein 6.6 g/dL (6.5-8.0); Triglycerides 149 mg/dL (<150)
[2025-02-22 12:06] LABS: HBS Num1 0.79 mIU/mL (0-7.99); HBsAGNum1 0.35 S/CO (0.00-0.99); Hepatitis B Core Antibody Nonreactive (Nonreactive); Hepatitis B Surface Antigen Negative (Negative); ~HepC Num1 0.09 S/CO (0.00-0.79); ~Hepatitis A Antibody IgM Nonreactive (Nonreactive); ~Hepatitis B Surface Antibody NONREACTIVE (Nonreactive); ~Hepatitis C Antibody Nonreactive (Nonreactive)
[2025-02-22 12:11] LABS: Erythrocyte Sedimentation Rate 2 MM/HR (0-15)
[2025-02-25 07:29] LABS: TS Negative Control Passed; TS Panel A 0; TS Panel B 0; TS Positive Control Passed; TSpotTB Negative (Negative)
== END 2025-02-22 09:32 | disposition home or self-care (01) ==
LOC: HO.HHCL 09:31
PROVIDERS: Visit Provider Student in an Organized Health Care Education/Training Program
DX: M05.9 Rheumatoid arthritis with rheumatoid factor, unspecified (principal)
CPT/HCPCS: 36415; 80053; 80061; 85025; 85652; 86140; 86481; 86704; 86706; 86709; 86803; 87340

== ENCOUNTER 2025-03-27 06:20 | Outpatient (REF) | payer OTHER, SELFPAY | END 2025-03-27 06:21 | disposition home or self-care (01) | LOC: CF 06:20 | PROVIDERS: Visit Provider Anesthesiology | DX: M19.031 Primary osteoarthritis, right wrist (principal); M05.9 Rheumatoid arthritis with rheumatoid factor, unspecified; M25.511 Pain in right shoulder; G89.29 Other chronic pain; M75.101 Unspecified rotator cuff tear or rupture of right shoulder, not specified as traumatic; M12.811 Other specific arthropathies, not elsewhere classified, right shoulder; Z79.52 Long term (current) use of systemic steroids; Z51.81 Encounter for therapeutic drug level monitoring; Z79.631 Long term (current) use of antimetabolite agent; Z79.899 Other long term (current) drug therapy | CPT/HCPCS: 20605; 64415; 99212; J2003; J2795; J3300 ==

== ENCOUNTER 2025-03-27 07:03 | Outpatient (AMB) | payer OTHER, SELFPAY ==
--- OUTSIDE RECORDS SUMMARY | 2025-03-27 07:05 | XMS_ITS | Encounter Summary ---
Author Organization [employer] Address [address] [facility] 7t [place] [address] Care Team Providers Care Physician Extender Name Role Phone Daisha Crane MD Primary Care Provider +1- [phone] Lisa Liao PharmD Unavailable [phone] Alissa Santillan MD Unavailable Sharon Guardado Unavailable Cedric Lujan MD Unavailable Rory Angeles MD Unavailable Jairon Crawford OD Unavailable Reason for Visit * Reason Comments Med Refill Encounter Details Date Type Department Care Team (Late st Contact Info) Description 11/21/2024 Refill [facility] MED [facility] P[facility]S [address] [place], [place] [phone] Cara Whitfield MD [address] [place], [place] [phone] Pain Social History Tobacco Use Types Packs/Day [...] Care Team (Late st Contact Info) Description 05/14/2025 11:00 AM EDT Telemedicine [facility] MED & PEDS [address] [place] [address] Loyda Banda, SO [address] [place] [address] documented as of this encounter Goals Goal Patient Goal Type Associated Problems Recent Progress Patient-Stated? Author Blood Pressure < 140/90 Blood Pressure 129/69(2024 10:12 AM EDT) No Piers-Gambl e, Lisa, PharmD Hemoglobin A1c < 8 Result Component 6.4( 10:40 AM EDT) No Piers-Gambl e, Lisa, PharmD documented as of this encounter Visit Diagnoses Diagnosis Pain Generalized pain documented in this encounter Additional Health Concerns Assessment Noted Time PHQ-9 Depression Total Score: 0 04/06/20 24 9:11 AM EDT documented as of this encounter Care Teams Physician Extender Relationship Specialty Start Date End Date Daisha Crane MD [address] [place] [address] PCP - General Family Medicine 11/01/18 Lisa Liao, GenevaD [address] [place] [address] Pharmacist Internal Medicine 04/06/23 02/02/25 Alissa Santillan MD [address] [place] [address] Rheumatology 11/09/24 Sharon Guardado [address] 3rd [place] [address] Cardiology 11/13/24 Cedric Lujan MD [address] [place] [address] Orthopaedic Surgery 11/23/24 Rory Angeles MD [address] [place] [address] Pain Medicine 02/06/25 Jairon Crawford OD [facility] [address] [place] [address] Optometry 03/07/25 documented as of this encounter
--- NOTE | 2025-03-27 07:26 | A.OFFVIS_ITS ---
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 Osteoporosis Seropositive rheumatoid arthritis History of prostate cancer Arthritis GERD (gastroesophageal reflux disease) COPD (chronic obstructive pulmonary disease) Asthma HTN (hypertension) Surgical History History of open reduction and internal fixation (ORIF) procedure Hx of umbilical hernia repair Hx of eye surgery History of back surgery History of colonoscopy History of removal of cyst History of tonsillectomy and adenoidectomy History of arthroscopy of left shoulder History of prostate surgery Family History Mother History of breast cancer, Onset Age: 87 Father History of asthma Social History Alcohol intake: never Patient Tobacco Use Status: Current everyday Tobacco user Tobacco use type: Cigarette Cigarettes Per Day: 7 Years Smoked: 60 +/- e-Cigarette/Vaping Use: Never Used Current occupational status: retired Current occupation: Rt handed Gender identity: Male Physical Exam Vital Signs: Last Vital Signs Pulse 66 03/27/25 07:27 Resp 18 03/27/25 07:27 BP 143/67 H 03/27/25 07:27 Pulse Ox 99 03/27/25 07:27 Oxygen Delivery Method Room Air 03/27/25 07:27 Assessment & Plan Assessment & Plan (1) Chronic right shoulder pain: Code(s): M25.511 - Pain in right shoulder; G89.29 - Other chronic pain Category: Medical (2) Rotator cuff tear arthropathy of right shoulder: Code(s): M75.101 - Unspecified rotator cuff tear or rupture of right shoulder, not specified as traumatic; M12.811 - Other specific arthropathies, not elsewhere classified, right shoulder Category: Medical Plan Diagnostic right interscalene brachial plexus block. Patrice is very pleasant 79 years old gentleman who came today to the operating room to receive diagnostic interscalene nerve block. He is suffering from right shoulder osteoarthritis and rheumatoid arthritis, suprascapular nerve block resulted in no pain improvement. He was positioned supine on the stretcher with the pillow under his upper back. His neck was extended and the head was turned to the left side. The right side of the neck was prepped with ChloraPrep and draped with self adhesive sterile utility towels. After that sterilely draped ultrasound probe was brought over the operating field and image of the anterior and medial scalene muscles and brachial plexus in between them in interscalene groove was demonstrated on the screen. After that 22 gauge echo stim 80 mm needle was inserted extra anatomically and under direct ultrasound vision was advanced to were the brachial plexus. Injection of the saline demonstrated the spread of the saline in the vicinity of the 5th and 6th branches of the brachial plexus. After that injection of the 6 cc of ropivacaine was performed into the needle. The spread of the medication was observed live, the aspiration was negative. The patient tolerated the procedure well, after needle was removed Band-Aid was applied. He went home without immediate complications. Orders: Orders US guide needle placement Today G89.29 - Other chronic pain, M25.511 - Pain in right shoulder Coding Level of Care Code Procedure Only Diagnoses Chronic right shoulder pain M25.511; G89.29 Rotator cuff tear arthropathy of right shoulder M75.101; M12.811
[2025-03-27 07:27] VITALS: BP 143/67; PULSE 66; RESP 18; O2SAT 99
== END 2025-03-27 08:24 | disposition home or self-care (01) ==
PROVIDERS: PCP Family Medicine; Visit Provider Anesthesiology
DX: M25.511 Pain in right shoulder (principal); G89.29 Other chronic pain; M75.101 Unspecified rotator cuff tear or rupture of right shoulder, not specified as traumatic; M12.811 Other specific arthropathies, not elsewhere classified, right shoulder
CPT/HCPCS: 64415; 76942

== ENCOUNTER 2025-03-27 09:45 | Outpatient (AMB) | payer OTHER, SELFPAY ==
--- NOTE | 2025-03-27 10:01 | MHC.OFFVIS ---
Vital Signs 03/27/25 10:09 Height 5 ft 6 in Weight 154 lb 5.177 oz BMI 24.9 BP 142/80 H Blood Pressure Location Lt brachial Position Sitting Respiration 18 Pulse 71 Pulse Source Pulse Oximeter Pulse Oximetry (%) 98 Oxygen Delivery Method Room Air Intake Visit Reasons: RA Intake Note: Patient presents for RA follow up. Remote Sensing Scientist Required: Yes Remote Sensing Scientist Language: Director Marketing Communications Services: Remote Sensing Scientist Present Remote Sensing Scientist Name: Kyung [id number] Information Interpreted: non-clinical & clinical Allergies lisinopril [LISINOPRIL] Allergy (Severe, Verified 03/27/25 10:07) Angioedema LAITH Inhibitors Adverse Reaction (Severe, Verified 03/27/25 10:07) Angioedema Medication List - Last Reconciled 03/27/25 by Laura Velarde MD acetaminophen (Tylenol Extra Strength) 500 mg PO Q6H PRN albuterol sulfate 90 mcg/actuation 2 puffs inhalation Q4H PRN atorvastatin 40 mg PO BEDTIME carvedilol 6.25 mg PO BID 90 days cholecalciferol (vitamin D3) 25 mcg PO DAILY docusate sodium (Colace) 100 mg PO BID fluticasone furoate 200 mcg/actuation (Arnuity Ellipta) 1 inh inhalation DAILY fluticasone propionate 220 mcg/actuation 2 puffs inhalation BID folic acid 1 mg PO QAM hydrochlorothiazide 12.5 mg PO DAILY hydroxychloroquine 200 mg orally ; Take 1 tab twice daily x5 days a week and 1 tab daily x2 days a week; icosapent ethyl grams PO loteprednol etabonate 0.5% 1 drp ophthalmic (eye) TID melatonin 3 mg PO BEDTIME PRN metformin ER 500 mg PO DAILY olopatadine 0.1% 1 drp ophthalmic (eye) QID omeprazole 20 mg PO QAM oxycodone 5 mg PO Q12H PRN polyethylene glycol 3350 (Miralax) 17 grams PO DAILY PRN prednisolone acetate 1% drps ophthalmic (eye) prednisone 10 mg PO DAILY Rasuvo (PF) (methotrexate (PF)) 25 mg (0.5 mL) subcut QWEEK NS sennosides 17.2 mg PO BEDTIME PRN tocilizumab (Actemra ACTPen) 162 mg (0.9 mL) subcut Q2W umeclidinium 62.5 mcg/actuation (Incruse Ellipta) 1 inh inhalation BEDTIME HPI Comments Details: Patient is a 79-year-old male with COPD, hyperlipidemia, hypertension complicated by coronary artery disease, diabetes, bilateral rotator cuff arthropathies, osteopenia with high FRAX index seropositive rheumatoid arthritis here today for follow up Interval History: Patient last seen 11/09/[address] Santillan. At that time he was following up for seropositive rheumatoid arthritis on methotrexate subcutaneous 25 mg every week, hydroxychloroquine, Actemra 162 mg every other week and prednisone 10 mg daily. He reported doing well overall except for right shoulder pain for which he followed up with ortho. The plan was to decrease his prednisone but given his upcoming surgery this was postponed Currently seeing ortho Got a nerve block for his right shoulder done 2 days ago with ortho Doing well overall Right wrist pain and swelling (Of note has a history of fall with fracture and subsequent surgical intervention on the right distal radius Rheumatologic History: ++RF++CCP Plaquenil - June 2016- July 2020 Oral methotrexate 2017, GI upset Arava- July 2018- November 2018, ineffective Xeljanz- June 2018- November 2018, unclear what happened Sulfasalazine- November 2018- July 2020 Rasuvo- March 2020- present Humira -August 2021- August 2022 (secondary nonresponse) Actemra September 2022 effective Prednisone throughout Hydroxychloroquine added 08/2024 Current Rheumatology Medication(s): Prednisone 10 mg daily Actemra 162 mg every other week Rasuvo/methotrexate 25 mg sc weekly Folic acid 1mg daily PFSH Medical History Abscess, umbilical Ascending aorta dilation Epidermal inclusion cyst Abscess snf systemic steroid user Osteoporosis Seropositive rheumatoid arthritis History of prostate cancer Arthritis GERD (gastroesophageal reflux disease) COPD (chronic obstructive pulmonary disease) Asthma HTN (hypertension) Surgical History History of open reduction and internal fixation (ORIF) procedure Hx of umbilical hernia repair Hx of eye surgery History of back surgery History of colonoscopy History of removal of cyst History of tonsillectomy and adenoidectomy History of arthroscopy of left shoulder History of prostate surgery Family History Mother History of breast cancer, Onset Age: 87 Father History of asthma Social History Alcohol intake: never Patient Tobacco Use Status: Current everyday Tobacco user Tobacco use type: Cigarette Cigarettes Per Day: 7 Years Smoked: 60 +/- e-Cigarette/Vaping Use: Never Used Current occupational status: retired Current occupation: [employer] Gender identity: Male Review of Systems Const Details: Review of Systems Constitutional: Denies fever, chills, weight loss ENT: Denies vision changes, eye pain or eye redness, dental caries, dry mouth GI: Denies nausea, vomiting, diarrhea, abdominal pain, change in BM Pulm: Denies SOB, TORRE, hemoptysis, wheezing Cards: Denies chest pain, palpitations Skin: Denies Raynaud's, rash, nail changes, photosensitivity, COLD REDUCTION ROLLER: Denies headaches, weakness, paresthesias, recurrent falls MSK: as per HPI All other systems reviewed and are unremarkable except noted above Physical Exam Vital Signs: Last Vital Signs Pulse 71 03/27/25 10:09 Resp 18 03/27/25 10:09 BP 142/80 H 03/27/25 10:09 Pulse Ox 98 03/27/25 10:09 Oxygen Delivery Method Room Air 03/27/25 10:09 BMI result Body Mass Index 24.9 Vital signs reviewed Physical Examination CONSTITUITIONAL Patient alert and cooperative. Well appearing and in no apparent painful distress HEENT Conjunctiva and sclera clear. CHEST/RESPIRATORY SYSTEM Normal respiratory effort and able to speak in complete sentences. CARDIAC SYSTEM Regular rate and rhythm. MSK Hands: ?Able to make a fist. No synovitis noted to the MCPs, PIPs or DIPs. ?No tenderness to palpation of these joints. Prominent herbeden's nodes noted Wrists: ?right wrist with swelling. No TTP of the wrist joint proper but the medial intercarpal joints Elbows: Full range of motion without pain. No tenderness, weakness, swelling, increased warmth or erythema. Shoulders: Did not examine due to recent procedure Knees: ?Full range of motion. ?No tenderness, swelling, increased warmth or erythema.?No effusion or crepitations Ankles: Full range of motion. ?No tenderness, swelling, increased warmth or erythema.? Feet: ?Negative squeeze test. ?No tenderness to palpation or swelling of the MTPs. Tender points:?No tenderness to palpation of the bilateral trapezius, supraspinatus, greater trochanters, anterior costochondral junctions, bilateral gluteal areas, bilateral suboccipital muscle insertions SKIN Skin intact without rashes. Office Procedures AMB Joint Injection/Aspiration Joint Injection/Aspiration Details: Procedure was explained to the patient and consent was obtained. ? The area of interest was identified and confirmed with patient. ?This was subsequently cleaned with chlorhexidine x3. ? The area was then anesthetized using ethyl chloride spray. 40 mg Kenalog with 1 cc 1% lidocaine was injected without issue. ?Minimal to no bleeding. ?Patient tolerated procedure. Primary Site: other (right wrist) Prep: site was prepped using aseptic technique and ethochloride spray was applied Injected: 40 mg of, Kenalog, with 1 mL of, 1% plain lidocaine and in the joint Procedure: The patient tolerated the procedure well Coding 81560 - Medium joint Procedure code (CPT) selection complete Office Meds lidocaine (PF) 10 mg/mL (1 %) injection solution Performing Provider: Laura Velarde MD Performing Location: [facility] Administered by: Laura Velarde MD on 03/27/25 13:04 Dose Route Admin Location Dispensed Lot Number Expiration Date [facility] Registered Occupational Therapist 1 mL Infiltration right wrist 2 mL [id number] 12/30/26 34266-867-13 [facility] Kenalog 40 mg/mL suspension for injection Performing Provider: Laura Velarde MD Performing Location: [facility] Administered by: Laura Velared MD on 03/27/25 13:04 Dose Route Admin Location Dispensed Lot Number Expiration Date [facility] Registered Occupational Therapist 40 mg intra-articular right wrist 1 mL [id number] 05/01/26 [address]-8 [employer] Results Reviewed Results Reviewed: Laboratory Tests 02/22/25 09:33 WBC 7.4 RBC 3.98 L Hgb 10.0 L Hct 33.2 L Plt Count 205 ESR 2 Sodium 139 Potassium 3.8 Chloride 104 Carbon Dioxide 27 BUN 8 L Creatinine 0.71 Total Bilirubin 0.8 AST 40 H ALT 40 Alkaline Phosphatase 50 C-Reactive Protein < 0.04 Triglycerides 149 Cholesterol 108 LDL Cholesterol, Calc 38 HDL Cholesterol 41 MR Right Wrist 10/2022 FINDINGS: TRIANGULAR FIBROCARTILAGE: Diffuse attenuation of the triangular fibrocartilage complex with near complete absence of the ulnar attachments, consistent with chronic full-thickness tearing. Moderate distal radial ulnar joint effusion with synovitis. INTRINSIC LIGAMENTS: Probable focal full-thickness tear through the scapholunate ligament with minimal joint space widening. Intact lunotriquetral ligament. TENDONS/MEDIAN NERVE: Fluid within the extensor carpi ulnaris tendon sheath as well as increased intrasubstance T2 signal and slight irregularity, consistent with tendinosis, longitudinal partial tearing, and tenosynovitis. No transverse tendon tear or tendon retraction. ARTICULAR CARTILAGE/BONE: Prominent artifact within the distal radius consistent with the volar stabilization plate and fixation screws. Healed distal radial fracture in near anatomic alignment. No significant marrow edema or enhancement to suggest hardware complication. Borderline ulnar positive variance with widening of the distal radial ulnar joint, likely posttraumatic. Degenerative cystic change within the ulnar styloid. No evidence of acute fracture. Degenerative cysts scattered throughout the carpal bones. Articular cartilage thinning with tiny marginal osteophytes at the triscaphe and 1st carpometacarpal joints. JOINT FLUID/SOFT TISSUES: Moderate distal radial ulnar joint effusion with synovitis. Small pisotriquetral joint effusion. IMPRESSION: 1. Post-surgical change consistent with volar stabilization of the distal radius. No evidence of hardware complication. Borderline ulnar positive variance with widening of the distal radial ulnar joint, likely posttraumatic. 2. 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 Moderate distal radial ulnar joint effusion with synovitis. 3. Probable focal full-thickness tear through the scapholunate ligament with minimal joint space widening. 4. Extensor carpi ulnaris tendinosis, tenosynovitis, and longitudinal partial tearing. No transverse tendon tear or tendon retraction. 5. 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 Small pisotriquetral joint effusion. Assessment & Plan Assessment & Plan (1) Seropositive rheumatoid arthritis: Comment: ++RF++CCP Plaquenil - June 2016- July 2020 Oral methotrexate 2017, GI upset Arava- July 2018- November 2018, ineffective Xeljanz- June 2018- November 2018, unclear what happened Sulfasalazine- November 2018- July 2020 Rasuvo- March 2020- present Humira -August 2021- August 2022 (secondary nonresponse) Actemra September 2022 effective Prednisone throughout Hydroxychloroquine added 08/2024 Code(s): M05.9 - Rheumatoid arthritis with rheumatoid factor, unspecified Category: Medical Plan: #Seropositive RA Patient is a 79-year-old male with seropositive rheumatoid arthritis here today for follow up, Currently on several therapies including SC methotrexate, Actemra, prednisone 10 mg and hydroxychloroquine. His right wrist does have some evidence of synovitis despite all of these therapies. But his wrists has a combination of osteo, rheumatoid and post surgical arthritic changes. Status post steroid injection to intercarpal joint. We will try to decrease his prednisone from 10 mg to 7.5 mg. He is already having osteopenic changes to his bones from this snf prednisone use. 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 systemic steroid user: Code(s): Z79.52 - snf (current) use of systemic steroids Category: Medical Plan: #Long-term Use of Steroids Discussed with patient the risks and benefits of steroid for managing the rheumatic condition Benefits include: - Reduced pain, improved mobility, increased participation in activities, and decreased progression of disease Risks include: - GI upset, potential ultrasound worsening or formation (especially in patients > 65 years old), elevated blood pressure/worsening hypertension, elevated blood sugar/worsening diabetes control, worsening of bone density, elevated lipids/worsening triglycerides, cataract formation, weight gain Recommended using proton pump inhibitors (PPIs) for the duration of steroid use to reduce the risk of gastric ulcers and vitamin-D daily to reduce the risk of osteoporosis Labs checked: ?A1c, T spot, hepatitis-B and C serologies Pneumocystis jiroveci prophylaxis: ?Patient with risk factors including steroids greater than 50 mg for more than 30 days, age greater than 60 years, and lung involvement from underlying rheumatic disease requires prophylaxis and will be given so (3) Encounter for monitoring tocilizumab therapy: Code(s): Z51.81 - Encounter for therapeutic drug level monitoring; Z79.899 - Other keno terminal operator (current) drug therapy Category: Medical Plan: #Long-term Use of Tocilizumab Discussed the risks and benefits of tocilizumab with the management of this patient's rheumatic condition. ? Benefits include decreased pain, improved mortality, improved quality of life Risks include LFT abnormalities, elevated triglycerides, GI perforations Contraindicated in a patient with history of diverticulitis Monitoring: ?CBC, CMP, triglycerides (4) Encounter for methotrexate monitoring: Code(s): Z51.81 - Encounter for therapeutic drug level monitoring; Z79.631 - snf (current) use of antimetabolite agent Plan: #Long-term Current Use of Methotrexate Discussed with patient the benefits and risks of methotrexate for managing their rheumatic condition Benefits include reduced pain, reduced mortality, maintenance of remission and reduction of flares Risks include oral ulcers, photosensitivity, hepatotoxicity, hematologic toxicity, pneumonitis, flu-like symptoms (especially day after administration), nodulosis, lymphomas ? Limit alcohol and avoid Bactrim ? Monitoring: ?CBC, BMP, LFTs every 3-4 months and hepatitis serologies as needed Plan I spent 36 minutes reviewing the record and labs, taking a history, examining the patient, discussing the treatment plan, ordering diagnostic work up and documenting in the medical record Orders: Orders Complete Blood Count Auto Diff 3 Months M05.9 - Rheumatoid arthritis with rheumatoid factor, unspecified C Reactive Protein 3 Months M05.9 - Rheumatoid arthritis with rheumatoid factor, unspecified Lipid Panel 3 Months M05.9 - Rheumatoid arthritis with rheumatoid factor, unspecified Erythrocyte Sedimentation Rate 3 Months M05.9 - Rheumatoid arthritis with rheumatoid factor, unspecified Comprehensive Met. Panel 3 Months M05.9 - Rheumatoid arthritis with rheumatoid factor, unspecified AMB Joint Injection/Aspiration Today M19.031 - Primary osteoarthritis, right wrist Medications: New prednisone 7.5 mg (1.5 x 5 mg) PO DAILY 90 days 135 tabs 1RF M05.9 - Rheumatoid arthritis with rheumatoid factor, unspecified Refilled hydroxychloroquine 200 mg orally ; Take 1 tab twice daily x5 days a week and 1 tab daily x2 days a week; 144 tabs 1RF M05.9 - Rheumatoid arthritis with rheumatoid factor, unspecified folic acid 1 mg PO QAM 90 tabs 1RF tocilizumab (Actemra ACTPen) 162 mg (0.9 mL) subcut Q2W 1.8 mL 5RF M05.9 - Rheumatoid arthritis with rheumatoid factor, unspecified Rasuvo (PF) (methotrexate (PF)) 25 mg (0.5 mL) subcut QWEEK 2 mL 3RF NS M05.9 - Rheumatoid arthritis with rheumatoid factor, unspecified Discontinued prednisone Discontinued Reason: Doctor's Order 10 mg PO DAILY 90 tabs 1RF M05.9 - Rheumatoid arthritis with rheumatoid factor, unspecified Coding Level of Care Code Est Pt Level 4 (96029) Complex EM visit Add On G2211 Diagnoses Seropositive rheumatoid arthritis M05.9 snf systemic steroid user Z79.52 Encounter for monitoring tocilizumab therapy Z51.81; Z79.899 Encounter for methotrexate monitoring Z51.81; Z79.631 CPT Codes Coding - 66313 Medium joint: 32152 - Medium joint ([id number])
[2025-03-27 10:09] VITALS: BP 142/80; PULSE 71; RESP 18; O2SAT 98; BMI 24.9
== END 2025-03-27 10:56 | disposition home or self-care (01) ==
LOC: HO.RHE 09:45
PROVIDERS: PCP Family Medicine; Visit Provider Student in an Organized Health Care Education/Training Program
DX: M05.79 Rheumatoid arthritis with rheumatoid factor of multiple sites without organ or systems involvement (principal); Z79.52 Long term (current) use of systemic steroids; Z51.81 Encounter for therapeutic drug level monitoring; Z79.899 Other long term (current) drug therapy; Z79.631 Long term (current) use of antimetabolite agent; M19.031 Primary osteoarthritis, right wrist
CPT/HCPCS: 20605; 99214

== ENCOUNTER 2025-03-30 08:47 | Outpatient (AMB) | payer OTHER, SELFPAY ==
--- OUTSIDE RECORDS SUMMARY | 2025-03-30 08:50 | XMS_ITS | Encounter Summary ---
Author Organization [employer] Address [address] [place] [address] Care Team Providers Care Member Service Representative Name Role Phone Daisha Crane MD Primary Care Provider [phone] Lisa Liao PharmD Unavailable Alissa Santillan MD Unavailable Sharon Guardado Unavailable Cedric Lujan MD Unavailable Rory Angeles MD Unavailable Jairon Crawford OD Unavailable Reason for Visit * Reason Comments Med Refill Encounter Details Date Type Department Care Team (Late st Contact Info) Description 11/21/[address] [facility] [address] [place], [place] [phone] Cara Whitfield MD [address] [place], [place] [phone] Pain Social History Tobacco Use Types Packs/Day [...] Info) Description 05/14/2025 11:00 AM EDT Telemedicine [facility] [address] [place] [address] Loyda Banda, SO [address] [place] [address] documented as of this encounter Goals Goal [...] documented as of this encounter Care Teams Member Service Representative Relationship Specialty Start Date End Date Daisha Crane MD [address] [place] [id number] PCP - General Family Medicine 11/01/18 Lisa Liao, GenevaD [address] [place] [address] Pharmacist Internal Medicine 04/06/23 02/02/25 Alissa Santillan MD [address] [place] [address] Rheumatology 11/09/24 Sharon Guardado [address] [place] [address] Cardiology 11/13/24 Cedric Lujan MD [address] [place] [address] Orthopaedic Surgery 11/23/24 Rory Angeles MD [address] [place] [address] Pain Medicine 02/06/25 Jairon Crawford OD [facility] [address] [place] [address] Optometry 03/07/25 Laura Velarde MD Rheumatology 03/28/25 documented as of this encounter
--- NOTE | 2025-03-30 08:51 | A.OFFVIS_ITS ---
Vital Signs 03/30/25 08:55 Height 5 ft 6 in Weight 154 lb BMI 24.9 BP 130/63 Blood Pressure Location Lt brachial Position Sitting Pulse 70 Pulse Source Pulse Oximeter Pulse Oximetry (%) 98 Oxygen Delivery Method Room Air Intake Visit Reasons: RIGHT DIAGNOSTIC INTERSCALENE NB Intake Note: Pain today 7/10 Child Care Coordinator Required: No Accompanied by: Other Relationship Allergies lisinopril [LISINOPRIL] Allergy (Severe, Verified 03/30/25 08:55) Angioedema LAITH Inhibitors Adverse Reaction (Severe, Verified 03/30/25 08:55) Angioedema HPI Comments Details: The patient is a 79-year-old male presenting with right shoulder pain three days status post right diagnostic interscalene nerve block. Prior to intervention, the shoulder pain was severe, consistently rated at 9/10 out of 10. Three days ago, a right diagnostic interscalene nerve block was performed, yielding significant temporary relief, with pain dropping to 3 out of 10. However, as anticipated, the relief was short-lived and lasted only a few hours before returning to its previous severity levels. A stimulator device is being considered for longer-term relief in light of the positive response to the nerve block. - Onset: Chronic - Timing: Present prior to intervention; temporary relief post-block - Quality and Character: Severe - Primary Location: Right shoulder - Exacerbating Factors: Natural course post-medication - Relieving Factors: Interscalene nerve block brought temporary relief - Activities/Functions Interfered: Not detailed but implied impact - Affect: Not explicitly discussed - Analgesia: Pain decreased from 9-10/10 to 3/10 post-interscalene nerve block; considering stimulator for longer-term relief - Adverse Effects: None reported - Activities of Daily Living: Pain impacts daily function despite temporary relief - Aberrant Drug Related Behaviors: None noted [facility] Medical History Abscess, umbilical Ascending aorta dilation Epidermal inclusion cyst Abscess intermediate card tender systemic steroid user Osteoporosis Seropositive rheumatoid arthritis History of prostate cancer Arthritis GERD (gastroesophageal reflux disease) COPD (chronic obstructive pulmonary disease) Asthma HTN (hypertension) Surgical History History of open reduction and internal fixation (ORIF) procedure Hx of umbilical hernia repair Hx of eye surgery History of back surgery History of colonoscopy History of removal of cyst History of tonsillectomy and adenoidectomy History of arthroscopy of left shoulder History of prostate surgery Family History Mother History of breast cancer, Onset Age: 87 Father History of asthma Social History Alcohol intake: never Patient Tobacco Use Status: Current everyday Tobacco user Tobacco use type: Cigarette Cigarettes Per Day: 7 Years Smoked: 60 +/- e-Cigarette/Vaping Use: Never Used Current occupational status: retired Current occupation: [employer] Gender identity: Male Review of Systems Const Details: - Musculoskeletal: Reports severe right shoulder pain; Denies any other musculoskeletal symptoms Physical Exam Vital Signs: Last Vital Signs Pulse 70 03/30/25 08:55 BP 130/63 03/30/25 08:55 Pulse Ox 98 03/30/25 08:55 Oxygen Delivery Method Room Air 03/30/25 08:55 BMI result Body Mass Index 24.9 General: awake, alert, oriented. Answers questions appropriately. Fully engaged in examination. Skin: warm, dry, intact HEENT: Normocephalic. Hearing intact. Cardiac: External chest normal in appearance. Respiratory: No cough, audible wheezing or stridor. Abdomen: without gross distension. MS: No obvious swelling or deformities. Right shoulder: Tenderness over humeral head and glenohumeral joint. Significantly decreased range of motion. Neurological: Oriented to person, place, time and situation. Thought process intact. No gait abnormalities appreciated. Psychiatric: Appropriate mood and affect. Good judgment and insight. Results Reviewed Results Reviewed: 07/24/24 MR/MR shoulder RT wo con IMPRESSION: 1. Completely torn and retracted supraspinatus tendon with moderate muscle atrophy and mild fatty infiltration. 2. Complete or near-complete tear of the subscapularis tendon with moderate muscle atrophy and mild fatty infiltration. 3. Completely torn and retracted biceps tendon. 4. Superior subluxation of the humeral head with chronic remodeling of the undersurface of the acromion. 5. Mild acromioclavicular and glenohumeral osteoarthritis. Assessment & Plan Assessment & Plan (1) Chronic right shoulder pain: Code(s): M25.511 - Pain in right shoulder; G89.29 - Other chronic pain Category: Medical (2) Rotator cuff tear arthropathy of right shoulder: Code(s): M75.101 - Unspecified rotator cuff tear or rupture of right shoulder, not specified as traumatic; M12.811 - Other specific arthropathies, not elsewhere classified, right shoulder Category: Medical Plan - Intervention: Right diagnostic interscalene nerve block performed with temporary 70% reduction in pain The patient's chronic right shoulder pain is planned to be further addressed through [employer] temporary peripheral nerve stimulator, given the successful temporary relief provided by the diagnostic interscalene nerve block indicating potential efficacy for this approach. Insurance pre-approval will be secured for further intervention, and once obtained, the neurostimulator will be placed in the same location as the nerve block within an eight-week duration for enhanced pain management. During the visit, we discussed the patient?s positive response to the recent diagnostic interscalene nerve block which provided a marked reduction of shoulder pain by 70% for several hours. Based on this outcome, I advised potentially proceeding with a neurostimulator temporary placement to achieve longer-term relief of his chronic pain. We reviewed the benefits of the stimulator, which include prolonged pain relief potentially allowing the patient to better manage daily activities and reduce reliance on medications. We dis cussed the requirements for obtaining insurance approval, the implantation process, and expected follow-up. The patient expressed understanding and agreement to proceed, pending insurance authorization. Upon approval, he will be contacted to schedule the procedure. Patient was informed and verbally consented to the use of an ambient scribe for clinic note documentation during this visit. Patient Instructions: - Await a call for scheduling the procedure pending insurance approval - Contact our office if shoulder pain becomes significantly worse - Maintain regular daily activities as tolerable - Follow any new instructions provided at your next appointment Coding Level of Care Code Est Pt Level 3 (38718) Complex EM visit Add On G2211 Diagnoses Chronic right shoulder pain M25.511; G89.29 Rotator cuff tear arthropathy of right shoulder M75.101; M12.811
[2025-03-30 08:55] VITALS: BP 130/63; PULSE 70; O2SAT 98; BMI 24.9
== END 2025-03-30 09:20 | disposition home or self-care (01) ==
PROVIDERS: PCP Family Medicine; Visit Provider Registered Nurse Emergency
DX: M25.511 Pain in right shoulder (principal); G89.29 Other chronic pain; M75.101 Unspecified rotator cuff tear or rupture of right shoulder, not specified as traumatic; M12.811 Other specific arthropathies, not elsewhere classified, right shoulder
CPT/HCPCS: 99213; G2211

== ENCOUNTER → 2025-03-30 08:47 | Outpatient (BNVA) | payer OTHER, SELFPAY | PROVIDERS: PCP Family Medicine; Visit Provider Registered Nurse Emergency | DX: M25.511 Pain in right shoulder (principal); M75.101 Unspecified rotator cuff tear or rupture of right shoulder, not specified as traumatic; M12.811 Other specific arthropathies, not elsewhere classified, right shoulder; G89.29 Other chronic pain | CPT/HCPCS: 99212 ==

== ENCOUNTER 2025-06-26 06:10 | Outpatient (REF) | payer OTHER, SELFPAY ==
--- OUTSIDE RECORDS SUMMARY | 2025-06-26 06:15 | XMS_ITS | Encounter Summary ---
Author Organization [employer] Address [address] [facility] 7t [place] [address] Care Team Providers Care Tobacco Stripper Name Role Phone Daisha Crane MD Primary Care Provider + [phone] Lisa Liao PharmD Unavailable Alissa Santillan MD Unavailable Sharon Guardado Unavailable Cedric Lujan MD Unavailable Rory Anegles MD Unavailable Jairon Crawford OD Unavailable Encounter Details Date Type Department Care Team (Late st Contact Info) Description 10/22/2022 Orders Only [facility] [address] [place], [place] [phone] Radha Johnson LPN Social History Tobacco Use [...] Care Team (Late st Contact Info) Description 07/20/2025 9:00 AM EDT Clinical Support [facility] [address] [place], [place] [phone] Loyda Banda RN [address] [place], [place] [phone] documented as of this encounter Visit Diagnoses Not on filedocumented in this encounter Care Teams Tobacco Stripper Relationship Specialty Start Date End Date Daisha Crane MD [address] [place] [address] PCP - General Family Medicine 11/01/18 Lisa Liao, GenevaD [address] [place] [address] Pharmacist Internal Medicine 04/06/23 02/02/25 Alissa Santillan MD [address] [place] [address] Rheumatology 11/09/24 Sharon Guardado [address] 3rd [place] [address] Cardiology 11/13/24 Cedric Lujan MD [address] [place] [address] Orthopaedic Surgery 11/23/24 Rory Angeles MD [address] [place] [address] Pain Medicine 02/06/25 Jairon Crawford OD [facility] [address] [place] [address] Optometry 03/07/25 Laura Velarde MD Rheumatology 03/28/25 documented as of this encounter
--- OUTSIDE RECORDS SUMMARY | 2025-06-26 06:15 | XMS_ITS | Encounter Summary ---
Author Organization [email or web address] Address [address] [facility] 7t [place] [address] Care Team Providers Care Procurement Cost Coordinator Name Role Phone Daisha Crane MD Primary Care Provider +1- [phone] Lisa Liao PharmD Unavailable Alissa Santillan MD Unavailable Sharon Guardado Unavailable Cedric Lujan MD Unavailable Rory Angeles MD Unavailable Jairon Crawford OD Unavailable Encounter Details Date Type Department Care Team (Late st Contact Info) Description 10/30/2024 Telephone [facility] [address] [place], [place] [phone] Daisha Crane MD [address] [place], [place] [phone] Social History Tobacco Use Types Packs/Day Years [...] the past 12 months, has t he official.fm, gas, oil or water [employer] threatened to shut off services in your [...] Description 07/20/2025 9:00 AM EDT Clinical Support [facility] 230 [place] [address] Loyda Banda RN [address] [place] [address] documented as of this encounter Goals Goal [...] documented as of this encounter Care Teams Procurement Cost Coordinator Relationship Specialty Start Date End Date Daisha Crane MD [address] [place] [address] PCP - General Family Medicine 11/01/18 Lisa Liao, Nidia [address] [place] [address] Pharmacist Internal Medicine 04/06/23 02/02/25 Alissa Santillan MD [address] [place] [address] Rheumatology 11/09/24 Sharon Guardado [address] 3rd [place] [address] Cardiology 11/13/24 Cedric Lujan MD [address] [place] [address] Orthopaedic Surgery 11/23/24 Rory Angeles MD [address] [place] [address] Pain Medicine 02/06/25 Jairon Crawford OD [facility] [address] [place] [address] Optometry 03/07/25 Laura Velarde MD Rheumatology 03/28/25 documented as of this encounter
--- OUTSIDE RECORDS SUMMARY | 2025-06-26 06:15 | XMS_ITS | Encounter Summary ---
Author Organization [employer] Address [address] [facility] 7t [place] [address] Care Team Providers Care Dobby Loom Chain Pegger Name Role Phone Daisha Crane MD Primary Care Provider +1- [phone] Lisa Liao PharmD Unavailable Alissa Santillan MD Unavailable Sharon Guardado Unavailable Cedric Lujan MD Unavailable Rory Angeles MD Unavailable Jairon Crawford OD Unavailable Encounter Details Date Type Department Care Team (Late st Contact Info) Description 12/16/2022 Orders Only [facility] [address] [place], [place] [phone] Jenn Polk LPN Social History Tobacco Use [...] 07/20/2025 9:00 AM EDT Clinical Support [facility] [address] [place] [address] Loyda Banda, RN [address] [place] [address] documented as of this encounter Visit Diagnoses Not on filedocumented in this encounter Additional Health Concerns Assessment Noted Time PHQ-9 Depression Total Score: 0 11/23/19 10:39 AM EST documented as of this encounter Care Teams Dobby Loom Chain Pegger Relationship Specialty Start Date End Date Daisha Crane MD 230 [place] [address] PCP - General Family Medicine 11/01/18 Lisa Liao PharmD [address] [place] [address] Pharmacist Internal Medicine 04/06/23 02/02/25 Alissa Santillan MD [address] [place] [address] Rheumatology 11/09/24 Sharon Guardado [address] 3rd [place] [address] Cardiology 11/13/24 Cedric Lujan MD [address] [place] [address] Orthopaedic Surgery 11/23/24 Rory Angeles MD [address] [place] [address] Pain Medicine 02/06/25 Jairon Crawford OD [facility] [address] [place] [address] Optometry 03/07/25 Laura Velarde MD Rheumatology 03/28/25 documented as of this encounter
--- OUTSIDE RECORDS SUMMARY | 2025-06-26 06:15 | XMS_ITS | Encounter Summary ---
Author Organization [employer] Address [address] [facility] 7t [place] [address] Care Team Providers Care Pediatric Nurse Practitioner Name Role Phone Daisha Crane MD Primary Care Provider +1- [phone] Lisa Liao PharmD Unavailable Alissa Santillan MD Unavailable Sharon Guardado Unavailable Cedric Lujan MD Unavailable Rory Angeles MD Unavailable Jairon Crawford OD Unavailable Encounter Details Date Type Department Care Team (Late st Contact Info) Description 10/28/2022 Telephone [facility] [address] [place] [phone] Daisha Crane MD 230 [place], [place] [phone] Social History Tobacco Use Types Packs/Day Years [...] Description 07/20/2025 9:00 AM EDT Clinical Support [facility] [address] [place] [address] [phone] Loyda Banda, RN [address] [place] [address] documented as of this encounter Visit Diagnoses Not on filedocumented in this encounter Care Teams Pediatric Nurse Practitioner Relationship Specialty Start Date End Date Daisha Crane MD 230 [place] [address] PCP - General Family Medicine 11/01/18 Lisa Liao, GenevaD [address] [place] [address] Pharmacist Internal Medicine 04/06/23 02/02/25 Alissa Santillan MD [address] [place] [address] Rheumatology 11/09/24 Sharon Guardado [address] 3rd [place] [address] Cardiology 11/13/24 Cedric Lujan MD [address] [place] [address] Orthopaedic Surgery 11/23/24 Rory Angeles MD [address] [place] [address] Pain Medicine 02/06/25 Jairon Crawford OD [facility] [address] [place] [address] Optometry 03/07/25 Laura Velarde MD Rheumatology 03/28/25 documented as of this encounter
--- OUTSIDE RECORDS SUMMARY | 2025-06-26 06:15 | XMS_ITS | Encounter Summary ---
Author Organization [employer] Address [address] [place] [address] 7t [place] [address] Care Team Providers Care Eyelet Row Marker Name Role Phone Daisha Crane MD Primary Care Provider +1- [phone] Lisa Liao PharmD Unavailable Alissa Santillan MD Unavailable Sharon Guardado Unavailable Cedric Lujan MD Unavailable Rory Angeles MD Unavailable Jairon Crawford OD Unavailable Reason for Visit * Reason Onset Date Comments Med Refill 06/07/2023 Encounter Details Date Type Department Care Team (Late st Contact Info) Description 06/07/2023 Telephone [facility] 230 [place], [place] [phone] Hiram Palma MD [address] [place], [place] [phone] Med Refill Social History Tobacco Use Types [...] MG immediate release tablet Please sent to [facility] - [place], [place] - [address] [place] [address] documented in this encounter Plan of Treatment Upcoming Encounters Date Type Department Care Team (Late st Contact Info) Description 07/20/2025 9:00 AM EDT Clinical Support [facility] 230 [place] [address] Loyda Banda RN 505 [place] [address] documented as of this encounter Goals Goal Patient Goal Type Associated Problems Recent Progress Patient-Stated? Author Blood Pressure < 140/90 Blood Pressure 129/69( 025 10:12 AM EDT) No Lisa Anguiano, PharmD documented as of this encounter Visit Diagnoses Not on filedocumented in this encounter Additional Health Concerns Assessment Noted Time PHQ-9 Depression Total Score: 0 11/23/19 23 10:39 AM EST documented as of this encounter Care Teams Eyelet Row Marker Relationship Specialty Start Date End Date Daisha Crane MD 230 [place] [address] PCP - General Family Medicine 11/01/18 Lisa Liao, PharmD [address] [place] [address] Pharmacist Internal Medicine 04/06/23 02/02/25 Alissa Santillan MD [address] [facility] [address] [place] [address] Rheumatology 11/09/24 Sharon Guardado [address] 3rd [place] [address] Cardiology 11/13/24 Cedric Lujan MD [address] [place] [address] Orthopaedic Surgery 11/23/24 Rory Angeles MD [address] [place] [address] Pain Medicine 02/06/25 Jairon Crawford OD [facility] [address] [place] [address] Optometry 03/07/25 Laura Velarde MD Rheumatology 03/28/25 documented as of this encounter
--- OUTSIDE RECORDS SUMMARY | 2025-06-26 06:15 | XMS_ITS | Encounter Summary ---
Author Organization [employer] Address [address] [facility] 7t [place] [address] Care Team Providers Care Assistant Track Coach Name Role Phone Daisha Crane MD Primary Care Provider + [phone] Lisa Liao PharmD Unavailable Alissa Santillan MD Unavailable Sharon Guardado Unavailable Cedric Lujan MD Unavailable Rory Angeles MD Unavailable Jairon Crawford OD Unavailable Encounter Details Date Type Department Care Team (Latest Contact Info) Description 03/10/2019 Abstract [facility] CONVERSIONS Dental, Provider, DDS Social History [...] Description 07/20/2025 9:00 AM EDT Clinical Support [facility] 230 [place], [place] [phone] Loyda Banda RN 505 [place], [place] [phone] documented as of this encounter Visit Diagnoses Not on filedocumented in this encounter Care Teams Assistant Track Coach Relationship Specialty Start Date End Date Daisha Crane MD [address] [place] [address] PCP - General Family Medicine 11/01/18 Lisa Liao, Nidia [address] [place] [address] Pharmacist Internal Medicine 04/06/23 02/02/25 Alissa Santillan MD [address] [place] [address] Rheumatology 11/09/24 Sharon Guardado [address] 3rd [place] [address] Cardiology 11/13/24 Cedric Lujan MD [address] [place] [address] Orthopaedic Surgery 11/23/24 Rory Angeles MD [address] [place] [address] Pain Medicine 02/06/25 Jairon Crawford OD [facility] [address] [place] [address] Optometry 03/07/25 Laura Velarde MD Rheumatology 03/28/25 documented as of this encounter
--- OUTSIDE RECORDS SUMMARY | 2025-06-26 06:15 | XMS_ITS | Encounter Summary ---
Author Organization [employer] Address [address] [facility] 7t [place] [address] Care Team Providers Care Route Delivery Manager Name Role Phone Daisha Crane MD Primary Care Provider +- [phone] Lisa Liao PharmD Unavailable [phone] Alissa Santillan MD Unavailable Sharon Guardado Unavailable Cedric Lujan MD Unavailable Rory Angeles MD Unavailable Jairon Crawford OD Unavailable Encounter Details Date Type Department Care Team (Late st Contact Info) Description 11/18/2023 Telephone [facility] 230 [place], [place] [phone] Daisha Crane MD 230 [place], [place] [phone] Social History Tobacco Use Types Packs/Day Years [...] Description 07/20/2025 9:00 AM EDT Clinical Support [facility] 230 [place] [address] Loyda Banda RN 505 [place] [address] documented as of this encounter Goals Goal Patient Goal Type Associated Problems Recent Progress Patient-Stated? Author Blood Pressure < 140/90 Blood Pressure 129/69(2024 10:12 AM EDT) No Piers-Gambroxana mg, Lisa, PharmD Hemoglobin A1c < 8 Result Component 6.4( 10:40 AM EDT) No Daveys-Gambl e, Lisa, PharmD documented as of this encounter Visit Diagnoses Not on filedocumented in this encounter Additional Health Concerns Assessment Noted Time PHQ-9 Depression Total Score: 0 11/23/19 23 10:39 AM EST documented as of this encounter Care Teams Route Delivery Manager Relationship Specialty Start Date End Date Daisha Crane MD [address] [place] [address] PCP - General Family Medicine 11/01/18 Lisa Liao, PharmD [address] [place] [address] Pharmacist Internal Medicine 04/06/23 02/02/25 Alissa Santillan MD [address] [place] [address] Rheumatology 11/09/24 Sharon Guardado [address] 3rd [place] [address] Cardiology 11/13/24 Cedric Lujan MD [address] [place] [address] Orthopaedic Surgery 11/23/24 Rory Angeles MD [address] [place] [address] Pain Medicine 02/06/25 Jairon Crawford OD [facility] [address] [place] [address] Optometry 03/07/25 Laura Velarde MD Rheumatology 03/28/25 documented as of this encounter
--- OUTSIDE RECORDS SUMMARY | 2025-06-26 06:15 | XMS_ITS | Encounter Summary ---
Author Organization [email or web address] Address [address] [place] [address] 7t [place] [address] Care Team Providers Care Operations Professional Name Role Phone Daisha Crane MD Primary Care Provider +1- [phone] Lisa Liao PharmD Unavailable Alissa Santillan MD Unavailable Sharon Guardado Unavailable Cedric Lujan MD Unavailable Rory Angeles MD Unavailable Jairon Crawford OD Unavailable Reason for Visit * Reason Comments Med Refill Encounter Details Date Type Department Care Team (Late st Contact Info) Description 07/21/2023 Refill [facility] 230 [place], [place] [phone] Daisha Crane MD [address] [place], [place] [phone] Pulmonary emphysema, unspecified emphysema type (CMS/HCC) (Primary [...] Description 07/20/2025 9:00 AM EDT Clinical Support [facility] [address] [facility] [place] [address] Loyda Banda RN 505 [place] [address] documented as of this encounter Goals Goal Patient Goal Type Associated Problems Recent Progress Patient-Stated? Author Blood Pressure < 140/90 Blood Pressure 129/69(2024 10:12 AM EDT) No Lisa Anguiano PharmD Hemoglobin A1c < 8 Result Component 6.4( 10:40 AM EDT) No Lisa Anguiano PharmAj documented as of this encounter Visit Diagnoses Diagnosis Pulmonary emphysema, unspecified emphysema type (CMS/HCC)- Primary documented in this encounter Additional Health Concerns Assessment Noted Time PHQ-9 Depression Total Score: 0 11/23/19 10:39 AM EST documented as of this encounter Care Teams Operations Professional Relationship Specialty Start Date End Date Daisha Crane MD [address] [place] [address] PCP - General Family Medicine 11/01/18 Lisa Liao, PharmD [address] [place] [address] Pharmacist Internal Medicine 04/06/23 02/02/25 Alissa Santillan MD [address] [place] [address] Rheumatology 11/09/24 Sharon Guardado [address] 3rd [place] [address] Cardiology 11/13/24 Cedric Lujan MD [address] [place] [address] Orthopaedic Surgery 11/23/24 Rory Angeles MD [address] [place] [address] Pain Medicine 02/06/25 Jairon Crawford OD [facility] [address] [place] [address] Optometry 03/07/25 Laura Velarde MD Rheumatology 03/28/25 documented as of this encounter
--- OUTSIDE RECORDS SUMMARY | 2025-06-26 06:15 | XMS_ITS | Encounter Summary ---
Author Organization [employer] Address 75 [facility] 7t [place] [address] Care Team Providers Care Internet Marketing Manager Name Role Phone Daisha Crane MD Primary Care Provider +1- [phone] Alissa Santillan MD Unavailable Sharon Guardado Unavailable Cedric Lujan MD Unavailable Rory Angeles MD Unavailable Jairon Crawford OD Unavailable Reason for Visit * Reason Comments Med Refill Encounter Details Date Type Department Care Team (Late st Contact Info) Description 05/15/2025 Refill [facility] PEDS [address] [place], [place] [phone] Daisha Crane MD [address] [place], [place] [phone] Pain Social History Tobacco Use Types Packs/Day Years Used Date Smoking Tobacco: Every Day Cigarettes Passive Smoke Exposure: Current Smokeless Tobacco: Never Depression Answer Date Recorded Patient Health Questionnaire-9 Score 7 03/07/2025 Patient Health Questionnaire-9 Score 7 03/07/2025 Last PHQ-9: Questionnaire Data Not on file 0 03/07/2025 Housing Stability Answer Date Recorded What is [...] Answer Date Recorded Patient Health Questionnaire-2 Score 1 03/07/2025 Internet Access Answer Date Recorded Internet Access Q1 No 03/07/2025 Internet Access Q2 I do not want or need it 05/2025 Sex and Gender Information Value Date Recorded [...] Description 07/20/2025 9:00 AM EDT Clinical Support [facility]ICINE [address] [place] [address] Loyda Banda RN 505 [place] [address] documented as of this encounter Goals Goal [...] Assessment Noted Time PHQ-9 Depression Total Score: 7 03/07/20 25 10:43 AM EDT documented as of this encounter Care Teams Internet Marketing Manager Relationship Specialty Start Date End Date Daisha Crane MD 230 [place] [address] PCP - General Family Medicine 11/01/18 Alissa Santillan MD [address] [place] [address] Rheumatology 11/09/24 Sharon Guardado [address] 3rd [place] [address] Cardiology 11/13/24 Cedric Lujan MD [address] [place] [address] Orthopaedic Surgery 11/23/24 Rory Angeles MD [address] [place] [address] Pain Medicine 02/06/25 Jairon Crawford OD [facility] [address] [place] [address] Optometry 03/07/25 Laura Velarde MD Rheumatology 03/28/25 documented as of this encounter
--- OUTSIDE RECORDS SUMMARY | 2025-06-26 06:15 | XMS_ITS | Encounter Summary ---
Author Organization [employer] Address 75 [facility] 7t [place] [address] Care Team Providers Care Beef Pusher Name Role Phone Daisha Crane MD Primary Care Provider +1- [phone] Lisa Liao PharmD Unavailable Alissa Santillan MD Unavailable Sharon Guardado Unavailable Cedric Lujan MD Unavailable Rory Angeles MD Unavailable Jairon Crawford OD Unavailable Reason for Visit * Reason Comments Med Refill Encounter Details Date Type Department Care Team (Late st Contact Info) Description 02/07/2024 Refill [facility] MED[facility]INE 230 [place], [place] [phone] Tanika Arenas ANP [address] [place], [place] [phone] Dyslipidemia Social History Tobacco Use Types Packs/Day [...] Description 07/20/2025 9:00 AM EDT Clinical Support [facility] 230 [place] [address] Loyda Banda RN 505 [place] [address] documented as of this encounter Goals Goal Patient Goal Type Associated Problems Recent Progress Patient-Stated? Author Blood Pressure < 140/90 Blood Pressure 129/69(2024 10:12 AM EDT) No Daveys-Madalyn mg, Lisa, PharmD Hemoglobin A1c < 8 Result Component 6.4( 10:40 AM EDT) No Piers-Gambl saurav, Lisa, PharmD documented as of this encounter Visit Diagnoses Diagnosis Dyslipidemia Other and unspecified hyperlipidemia documented in this encounter Additional Health Concerns Assessment Noted Time PHQ-9 Depression Total Score: 0 11/23/19 10:39 AM EST documented as of this encounter Care Teams Beef Pusher Relationship Specialty Start Date End Date Daisha Crane MD 230 [place] [address] PCP - General Family Medicine 11/01/18 Lisa Liao, PharmD 230 [place] [address] Pharmacist Internal Medicine 04/06/23 02/02/25 Alissa Santillan MD [address] [place] [address] Rheumatology 11/09/24 Sharon Guardado [address] 3rd [place] [address] Cardiology 11/13/24 Cedric Lujan MD [address] [place] [address] Orthopaedic Surgery 11/23/24 Rory Angeles MD [address] [place] [address] Pain Medicine 02/06/25 Jairon Crawford OD [facility] [address] [place] [address] Optometry 03/07/25 Laura Velarde MD Rheumatology 03/28/25 documented as of this encounter
--- OUTSIDE RECORDS SUMMARY | 2025-06-26 06:15 | XMS_ITS | Encounter Summary ---
Author Organization [employer] Address 75 [facility] 7t [place] [address] Care Team Providers Care Academic Affairs Specialist Name Role Phone Daisha Crane MD Primary Care Provider +1- [phone] Lisa Liao PharmD Unavailable [phone] Alissa Santillan MD Unavailable Sharon Guardado Unavailable Cedric Lujan MD Unavailable Rory Angeles MD Unavailable Jairon Crawford OD Unavailable Reason for Visit * Reason Comments Med Refill Encounter Details Date Type Department Care Team (Late st Contact Info) Description 11/21/2024 Refill [facility] MED & PEDS [address] [place], [place] [phone] Cara Whitfield MD 230 [place], [place] [phone] Pain Social History Tobacco Use Types Packs/Day [...] Description 07/20/2025 9:00 AM EDT Clinical Support [facility] MEDICINE 230 [place] [address] Loyda Banda RN 505 [place] [address] documented as of this encounter Goals Goal [...] documented as of this encounter Care Teams Academic Affairs Specialist Relationship Specialty Start Date End Date Daisha Crane MD 230 [place] [address] PCP - General Family Medicine 11/01/18 Lisa Liao, Nidia 230 [place] [address] Pharmacist Internal Medicine 04/06/23 02/02/25 Alissa Santillan MD [address] [place] [address] Rheumatology 11/09/24 Sharon Guardado [address] 3rd [place] [address] Cardiology 11/13/24 Cedric Lujan MD [address] [place] [address] Orthopaedic Surgery 11/23/24 Rory Angeles MD [address] [place] [address] Pain Medicine 02/06/25 Jairon Crawford OD [facility] [address] [place] [address] Optometry 03/07/25 Laura Velarde MD Rheumatology 03/28/25 documented as of this encounter
--- OUTSIDE RECORDS SUMMARY | 2025-06-26 06:15 | XMS_ITS | Encounter Summary ---
Author Organization [employer] Address 75 [facility] 7t [place] [address] Care Team Providers Care Support Teacher Name Role Phone Daisha Crane MD Primary Care Provider + [phone] Lisa Liao PharmD Unavailable Alissa Santillan MD Unavailable Sharon Guardado Unavailable Cedric Lujan MD Unavailable Rory Angeles MD Unavailable Jairon Crawford OD Unavailable Encounter Details Date Type Department Care Team (Late st Contact Info) Description 11/19/2022 Orders Only [facility] MEDICINE [address] [place] [phone] Radha Johnson LPN Social History Tobacco Use [...] Description 07/20/2025 9:00 AM EDT Clinical Support [facility] MEDICINE [address] [place] [address] Loyda Banda, RN 505 [place] [address] documented as of this encounter Visit Diagnoses Not on filedocumented in this encounter Care Teams Support Teacher Relationship Specialty Start Date End Date Daisha Crane MD 230 [place] [address] PCP - General Family Medicine 11/01/18 Lisa Liao, PharmD 230 [place] [address] Pharmacist Internal Medicine 04/06/23 02/02/25 Alissa Santillan MD [address] [place] [address] Rheumatology 11/09/24 Sharon Guardado [address] 3rd [place] [address] Cardiology 11/13/24 Cedric Lujan MD [address] [place] [address] Orthopaedic Surgery 11/23/24 Rory Angeles MD [address] [place] [address] Pain Medicine 02/06/25 Jairon Crawford OD [facility] [address] [place] [address] Optometry 03/07/25 Laura Velarde MD Rheumatology 03/28/25 documented as of this encounter
--- OUTSIDE RECORDS SUMMARY | 2025-06-26 06:15 | XMS_ITS | Encounter Summary ---
Author Organization [employer] Address 75 [facility] 7t [place] [address] Care Team Providers Care Insurance Sales Associate Name Role Phone Daisha Crane MD Primary Care Provider +1- [phone] Lisa Liao PharmD Unavailable Alissa Santillan MD Unavailable Sharon Guardado Unavailable Cedric Lujan MD Unavailable Rory Angeles MD Unavailable Jairon Crawford OD Unavailable Reason for Visit * Reason Comments Med Refill Encounter Details Date Type Department Care Team (Late st Contact Info) Description 08/31/2023 Refill [facility] MEDICINE [address] [place], [place] [phone] Key Gregory MD 230 [place], [place] [phone] Tinea versicolor Social History Tobacco Use Types [...] Description 07/20/2025 9:00 AM EDT Clinical Support [facility] MEDICINE 230 [place] [address] Loyda Banda RN 505 [place] [address] documented as of this encounter Goals Goal [...] documented as of this encounter Care Teams Insurance Sales Associate Relationship Specialty Start Date End Date Daisha Crane MD 230 [place] [address] PCP - General Family Medicine 11/01/18 Lisa Liao, Nidia 230 [place] [address] Pharmacist Internal Medicine 04/06/23 02/02/25 Alissa Santillan MD [address] [place] [address] Rheumatology 11/09/24 Sharon Guardado [address] 3rd [place] [address] Cardiology 11/13/24 Cedric Lujan MD [address] [place] [address] Orthopaedic Surgery 11/23/24 Rory Angeles MD [address] [place] [address] Pain Medicine 02/06/25 Jairon Crawford OD [facility] [address] [place] [address] Optometry 03/07/25 Laura Velarde MD Rheumatology 03/28/25 documented as of this encounter
--- OUTSIDE RECORDS SUMMARY | 2025-06-26 06:15 | XMS_ITS | Encounter Summary ---
Author Organization [employer] Address 75 [facility] 7t [place] [address] Care Team Providers Care Construction Administrator Name Role Phone Daisha Crane MD Primary Care Provider + [phone] Lisa Liao PharmD Unavailable Alissa Santillan MD Unavailable Sharon Guardado Unavailable Cedric Lujan MD Unavailable Rory Angeles MD Unavailable Jairon Crawford OD Unavailable Encounter Details Date Type Department Care Team (Late st Contact Info) Description 03/15/2023 Orders Only [facility] CH[facility] MED & PEDS 505 [place], [place] [phone] Jenn Polk LPN Social History Tobacco Use [...] Description 07/20/2025 9:00 AM EDT Clinical Support [facility] MEDICINE 230 [place] [address] Loyda Banda, SO 505 [place] [address] documented as of this encounter Visit Diagnoses Not on filedocumented in this encounter Additional Health Concerns Assessment Noted Time PHQ-9 Depression Total Score: 0 11/23/19 10:39 AM EST documented as of this encounter Care Teams Construction Administrator Relationship Specialty Start Date End Date Daisha Crane MD 230 [place] [address] PCP - General Family Medicine 11/01/18 Lisa Liao, GenevaD [address] [place] [address] Pharmacist Internal Medicine 04/06/23 02/02/25 Alissa Santillan MD [address] [place] [address] Rheumatology 11/09/24 Sharon Guardado [address] 3rd [place] [address] Cardiology 11/13/24 Cedric Lujan MD [address] [place] [address] Orthopaedic Surgery 11/23/24 oRry Angeles MD [address] [place] [address] Pain Medicine 02/06/25 Jairon Crawford OD [facility] [address] [place] [address] Optometry 03/07/25 Laura Velarde MD Rheumatology 03/28/25 documented as of this encounter
--- OUTSIDE RECORDS SUMMARY | 2025-06-26 06:15 | XMS_ITS | Encounter Summary ---
Author Organization [employer] Address 75 [facility] 7t [place] [address] Care Team Providers Care Vessel Operator Name Role Phone Daisha Crane MD Primary Care Provider +1- [phone] Alissa Santillan MD Unavailable Sharon Guardado Unavailable Cedric Lujan MD Unavailable Rory Angeles MD Unavailable Jairon Crawford OD Unavailable Reason for Visit * Reason Onset Date Comments Med Refill 06/12/2025 Encounter Details Date Type Department Care Team (Late st Contact Info) Description 06/12/[address] [facility] MEDICINE 230 [place], [place] [phone] Daisha Crane MD 230 [place], [place] [phone] Med Refill Social History Tobacco Use Types [...] encounter Miscellaneous Notes * Telephone Encounter - Shamar Calixto - 06/12/2025 9:04 AM EDT TC from pt requesting medication refill. Medications needing refill : oxyCODONE (Roxicodone) 5 MG immediate release tablet To be sent to: [facility] - [place], [place] - 230 [facility] documented in this encounter Plan of Treatment Upcoming Encounters Date Type Department Care Team (Late st Contact Info) Description 07/20/2025 9:00 AM EDT Clinical Support [facility] MEDICINE 230 [place] [address] Loyda Banda, SO 505 [place] [address] documented as of this encounter Goals Goal Patient Goal Type Associated Problems Recent Progress Patient-Stated? Author Blood Pressure < 140/90 Blood Pressure 129/69(2024 10:12 AM EDT) No Lisa Anguiano, PharmD Hemoglobin A1c < 8 Result Component 6.4( 10:40 AM EDT) No Lisa Anguiano PharmD documented as of this encounter Visit Diagnoses Not on filedocumented in this encounter Additional Health Concerns Assessment Noted Time PHQ-9 Depression Total Score: 7 03/07/20 10:43 AM EDT documented as of this encounter Care Teams Vessel Operator Relationship Specialty Start Date End Date Daisha Crane MD [address] [place] [address] PCP - General Family Medicine 11/01/18 Alissa Santillan MD [address] [place] [address] Rheumatology 11/09/24 Sharon Guardado [address]rd [place] [address] Cardiology 11/13/24 Cedric Lujan MD [address] [place] [address] Orthopaedic Surgery 11/23/24 Rory Angeles MD [address] [place] [address] Pain Medicine 02/06/25 Jairon Crawford OD [facility] [address] [place] [address] Optometry 03/07/25 Laura Velarde MD Rheumatology 03/28/25 documented as of this encounter
--- OUTSIDE RECORDS SUMMARY | 2025-06-26 06:15 | XMS_ITS | Encounter Summary ---
Author Organization [employer] Address 75 [facility] 7t [place] [address] Care Team Providers Care Manager Electronic Name Role Phone Daisha Crane MD Primary Care Provider +1- [phone] Lisa Liao PharmD Unavailable +[phone] Alissa Santillan MD Unavailable Sharon Guardado Unavailable Cedric Lujan MD Unavailable Rory Angeles MD Unavailable Jairon Crawford OD Unavailable Encounter Details Date Type Department Care Team (Late st Contact Info) Description 10/14/2022 [facility] 230 [place], [place] [phone] Daisha Crane MD 230 [place], [place] [phone] Social History Tobacco Use Types Packs/Day Years [...] Description 07/20/2025 9:00 AM EDT Clinical Support [facility] MEDICINE 230 [place], [place] [phone] Loyda Banda, RN 505 [place] [address] documented as of this encounter Visit Diagnoses Not on filedocumented in this encounter Care Teams Manager Electronic Relationship Specialty Start Date End Date Daisha Crane MD 230 [place] [address] PCP - General Family Medicine 11/01/18 Lisa Liao, GenevaD 230 [place] [address] Pharmacist Internal Medicine 04/06/23 02/02/25 Alissa Santillan MD [address] [place] [address] Rheumatology 11/09/24 Sharon Guardado [address]rd [place] [address] Cardiology 11/13/24 Cedric Luajn MD [address] [place] [address] Orthopaedic Surgery 11/23/24 Rory Angeles MD [address] [place] [address] Pain Medicine 02/06/25 Jairon Crawford OD [facility] [address] [place] [address] Optometry 03/07/25 Laura Velarde MD Rheumatology 03/28/25 documented as of this encounter
--- OUTSIDE RECORDS SUMMARY | 2025-06-26 06:15 | XMS_ITS | Encounter Summary ---
Author Organization [employer] Address 75 [facility] 7t [place] [address] Care Team Providers Care Lines Tender Name Role Phone Daisha Crane MD Primary Care Provider +1- [phone] Lisa Liao PharmD Unavailable Alissa Santillan MD Unavailable Sharon Guardado Unavailable Cedric Lujan MD Unavailable Rory Angeles MD Unavailable Jairon Crawfrod OD Unavailable Reason for Visit * Reason Onset Date Comments Durable Medical Equipment 08/08/2024 Encounter Details Date Type Department Care Team (Late st Contact Info) Description 08/08/2024 Telephone [facility] MEDICINE 230 [place], [place] [phone] Daisha Crane MD 230 [place], [place] [phone] Durable Medical Equipment Social History Tobacco Use [...] AM EDT documented as of this encounter Functional Status * Over the past 2 weeks, how often have you been bothered by any of the following problems? Question Answer Date of Assessment Author Patient Health Questionnaire-2 Score 1 05/2025 10:43 AM Zoraida Ly [place] * Little interest or pleasure in doing things Answer Date of Assessment Author Several days 03/07/2025 10:43 AM Jaimie Ly [place] * Feeling down, depressed, or hopeless Answer Date of Assessment Author Not at all 03/07/2025 10:43 AM Jaimie Ly [place] * Trouble falling or staying asleep, or sleeping too much Answer Date of Assessment Author Nearly every day 03/07/2025 10:43 AM Zoraida Ly [place] * Feeling tired or having little energy Answer Date of Assessment Author Several days 03/07/2025 10:43 AM Jaimie Ly [place] * Poor appetite or overeating Answer Date of Assessment Author Several days 03/07/2025 10:43 AM Jaimie Ly [place] * Feeling bad about yourself - or that you are a failure or have let yourself or your family down Answer Date of Assessment Author Not at all 03/07/2025 10:43 AM Jaimie Ly MA * Trouble concentrating on things, such as reading the newspaper or watching television Answer Date of Assessment Author Several days 03/07/2025 10:43 AM Jaimie Ly MA * Moving or speaking so slowly that other people could have noticed? Or the opposite - being so fidgety or restless that you have been moving around a lot more than usual. Answer Date of Assessment Author Not at all 03/07/2025 10:43 AM Jaimie Ly MA * Thoughts that you would be better off or hurting yourself in some way Answer Date of Assessment Author Not at all 03/07/2025 10:43 AM Jaimie Ly MA * Patient Health Questionnaire-9 Score Answer Date of Assessment Author 7 03/07/2025 10:43 AM Jaimie Ly MA * Over the last 2 weeks, how often have you been bothered by any of the following problems? Question Answer Date of Assessment Author Feeling nervous, anxious, or on edge 0 05/2025 10:44 AM Zoraida Ly MA Not being able to stop or co ntrol worrying 1 03/07/2025 10:44 AM Zoraida Ly M A Worrying too much about diff erent things 0 03/07/2025 10:44 AM Zoraida Ly M A Trouble relaxing 0 03/07/2025 10:44 AM Zoraida Ly MA Being so restless that it is hard to sit still 0 03/07/2025 10:44 AM Zoraida Ly M A Becoming easily annoyed or irritable 0 05/2025 10:44 AM Zoraida Ly MA Feeling afraid as if somethi ng awful might happen 0 03/07/2025 10:44 AM Zoraida Ly M A JOSE-7 Total Score 1 03/07/2025 10:44 AM Zoraida Ly MA documented as of this encounter Miscellaneous Notes * Telephone Encounter - Philly Abadnte - 08/08/2024 10:41 AM EDT Tc from pt regarding DME. Pt was advised by [facility] to contact PCP. [facility] only received script for cane. Pt needs bed pads and pull ups size large. documented in this encounter Plan of Treatment Upcoming Encounters Date Type Department Care Team (Late st Contact Info) Description 07/20/2025 9:00 AM EDT Clinical Support [facility] MEDICINE 230 [place] [address] Loyda Banda RN 505 [place] [address] documented as of this encounter Goals Goal [...] documented as of this encounter Care Teams Lines Tender Relationship Specialty Start Date End Date Daisha Crane MD 230 [place] [address] PCP - General Family Medicine 11/01/18 Lisa Liao, PharmD [address] [place] [address] Pharmacist Internal Medicine 04/06/23 02/02/25 Alissa Santillan MD [address] [place] [address] Rheumatology 11/09/24 Sharon Guardado [address] 3rd [place] [address] Cardiology 11/13/24 Cedric Lujan MD [address] [place] [address] Orthopaedic Surgery 11/23/24 Rory Angeles MD [address] [place] [address] Pain Medicine 02/06/25 Jairon Crawford OD [facility] [address] [place] [address] Optometry 03/07/25 Laura Velarde MD Rheumatology 03/28/25 documented as of this encounter
--- OUTSIDE RECORDS SUMMARY | 2025-06-26 06:15 | XMS_ITS | Encounter Summary ---
Author Organization [employer] Address 75 [facility] 7t [place] [address] Care Team Providers Care Skiver Uppers Or Linings Name Role Phone Daisha Crane MD Primary Care Provider +1- [phone] Lisa Liao PharmD Unavailable Alissa Santillan MD Unavailable Sharon Guardado Unavailable Cedric Lujan MD Unavailable Rory Angeles MD Unavailable Jairon Crawford OD Unavailable Reason for Visit * Reason Comments Med Refill Encounter Details Date Type Department Care Team (Late st Contact Info) Description 09/03/2023 Refill [facility] MEDICINE 230 [place], [place] [phone] Key Gregory MD 230 [place], [place] [phone] Tinea versicolor Social History Tobacco Use Types [...] Description 07/20/2025 9:00 AM EDT Clinical Support [facility] MEDICINE 230 [place] [address] Loyda Banda RN [address] [place] [address] documented as of this encounter Goals Goal [...] documented as of this encounter Care Teams Skiver Uppers Or Linings Relationship Specialty Start Date End Date Daisha Crane MD 230 [place] [address] PCP - General Family Medicine 11/01/18 Lisa Liao, Nidia 230 [place] [address] Pharmacist Internal Medicine 04/06/23 02/02/25 Alissa Santillan MD [address] [place] [address] Rheumatology 11/09/24 Sharon Guardado [address] 3rd [place] [address] Cardiology 11/13/24 Cedric Lujan MD [address] [place] [address] Orthopaedic Surgery 11/23/24 Rory Angeles MD [address] [place] [address] Pain Medicine 02/06/25 Jairon Crawford OD [facility] [address] [place] [address] Optometry 03/07/25 Laura Velarde MD Rheumatology 03/28/25 documented as of this encounter
--- OUTSIDE RECORDS SUMMARY | 2025-06-26 06:15 | XMS_ITS | Encounter Summary ---
Author Organization [employer] Address [address] [facility] 7t [place] [address] Care Team Providers Care Director Social Welfare Name Role Phone Daisha Crane MD Primary Care Provider + [phone] Lisa Liao PharmD Unavailable Alissa Santillan MD Unavailable Sharon Guardado Unavailable Cedric Lujan MD Unavailable Rory Angeles MD Unavailable Jairon Crawford OD Unavailable Encounter Details Date Type Department Care Team (Late st Contact Info) Description 03/05/2023 Orders Only [facility] [address] [place] [address] [phone] Radha Johnson LPN Social History Tobacco Use [...] Description 07/20/2025 9:00 AM EDT Clinical Support [facility] [address] [place] [phone] Loyda Banda, RN [address] [place] [address] documented as of this encounter Visit Diagnoses Not on filedocumented in this encounter Additional Health Concerns Assessment Noted Time PHQ-9 Depression Total Score: 0 11/23/19 10:39 AM EST documented as of this encounter Care Teams Director Social Welfare Relationship Specialty Start Date End Date Daisha Crane MD [address] [place] [address] PCP - General Family Medicine 11/01/18 Lisa Liao, GenevaD [address] [place] [address] Pharmacist Internal Medicine 04/06/23 02/02/25 Alissa Santillan MD [address] [place] [address] Rheumatology 11/09/24 Sharon Guardado [address] 3rd [place] [address] Cardiology 11/13/24 Cedric Lujan MD [address] [place] [address] Orthopaedic Surgery 11/23/24 Rory Angeles MD [address] [place] [address] Pain Medicine 02/06/25 Jairon Crawford OD [facility] [address] [place] [address] Optometry 03/07/25 Laura Velarde MD Rheumatology 03/28/25 documented as of this encounter
--- OUTSIDE RECORDS SUMMARY | 2025-06-26 06:15 | XMS_ITS | Encounter Summary ---
Author Organization [employer] Address [address] [place] [address] 7t [place] [address] Care Team Providers Care Neuroscience Specialist Name Role Phone Daisha Crane MD Primary Care Provider +1- [phone] iLsa Liao PharmD Unavailable Alissa Santillan MD Unavailable Sharon Guardado Unavailable Cedric Lujan MD Unavailable Rory Angeles MD Unavailable Jairon Crawford OD Unavailable Encounter Details Date Type Department Care Team (Late st Contact Info) Description 06/01/2023 Abstract [facility] [address] [place], [place] [phone] Daisha Crane MD [address] [place], [place] [phone] Social History Tobacco Use Types Packs/Day Years [...] 9:00 AM EDT Clinical Support [facility] [address] [place] [address] Loyda Banda RN [address] [place] [address] documented as of this encounter Goals Goal [...] documented as of this encounter Care Teams Neuroscience Specialist Relationship Specialty Start Date End Date Daisha Crane MD [address] [place] [address] PCP - General Family Medicine 11/01/18 Lisa Liao, PharmD [address] [place] [address] Pharmacist Internal Medicine 04/06/23 02/02/25 Alissa Santillan MD [address] [place] [address] Rheumatology 11/09/24 Sharon Guardado [address] 3rd [place] [address] Cardiology 11/13/24 Cedric Lujan MD [address] [place] [address] Orthopaedic Surgery 11/23/24 Rory Angeles MD [address] [place] [address] Pain Medicine 02/06/25 Jairon Crawford, [facility] [address] [place] [address] Optometry 03/07/25 Laura Vlearde MD Rheumatology 03/28/25 documented as of this encounter
--- OUTSIDE RECORDS SUMMARY | 2025-06-26 06:15 | XMS_ITS | Encounter Summary ---
Author Organization [employer] Address [address] [place] [address] 7t [place] [address] Care Team Providers Care Floor Molder Name Role Phone Daisha Crane MD Primary Care Provider +1- [phone] Lisa Liao PharmD Unavailable [phone] Alissa Santillan MD Unavailable Sharon Guardado Unavailable Cedric Lujan MD Unavailable Rory Angeles MD Unavailable Jairon Crawford OD Unavailable Reason for Visit * Reason Onset Date Comments Med Refill 07/07/2023 Encounter Details Date Type Department Care Team (Late st Contact Info) Description 07/07/2023 Telephone [facility] [address] [place], [place] [phone] Daisha Crane MD [address] [place], [place] [phone] Med Refill Social History Tobacco Use Types [...] Miscellaneous Notes * Telephone Encounter - Richa Mendozales Landin - 07/07/2023 1:42 PM EDT Tc from pt requesting med refill on oxyCODONE (Roxicodone) 5 MG immediate release tablet Please sent to [facility] - [place], [place] - [address] [place] [address] documented in this encounter Plan of Treatment Upcoming Encounters Date Type Department Care Team (Late st Contact Info) Description 07/20/2025 9:00 AM EDT Clinical Support [facility] [address] [place] [address] Loyda Banda RN 505 [place] [address] documented as of this encounter Goals Goal [...] documented as of this encounter Care Teams Floor Molder Relationship Specialty Start Date End Date Daisha Crane MD [address] [place] [address] PCP - General Family Medicine 11/01/18 Lisa Liao PharmD [address] [place] [address] Pharmacist Internal Medicine 04/06/23 02/02/25 Alissa Santillan [address] [place] [address] Rheumatology 11/09/24 Sharon Guardado [address]rd [place] [address] Cardiology 11/13/24 Cedric Lujan MD [address] [place] [address] Orthopaedic Surgery 11/23/24 Rory Angeles MD [address] [place] [address] Pain Medicine 02/06/25 Jairon Crawford OD [facility] [address] [place] [address] Optometry 03/07/25 Laura Velarde MD Rheumatology 03/28/25 documented as of this encounter
--- OUTSIDE RECORDS SUMMARY | 2025-06-26 06:15 | XMS_ITS | Encounter Summary ---
Author Organization [employer] Address [address] [facility] 7t [place] [address] Care Team Providers Care Car Wash Attendant Automatic Name Role Phone Daisha Crane MD Primary Care Provider +1- [phone] Lisa Liao PharmD Unavailable Alissa Santillan MD Unavailable Sharon Guardado Unavailable Cedric Lujan MD Unavailable Rory Angeles MD Unavailable Jairon Crawford OD Unavailable Reason for Visit * Reason Onset Date Comments Med Refill 07/04/2024 Encounter Details Date Type Department Care Team (Late st Contact Info) Description 07/04/2024 Telephone [facility] 230 [place], [place] [phone] Daisha Crane MD 230 [place], [place] [phone] Med Refill Social History Tobacco Use Types [...] immediate release tablet To be sent to: [facility] - [place], [place] - [address] [place] [address] documented in this encounter Plan of Treatment Upcoming Encounters Date Type Department Care Team (Late st Contact Info) Description 07/20/2025 9:00 AM EDT Clinical Support [facility] 230 [place] [address] Loyda Banda RN 505 [place], [place] [phone] documented as of this encounter Goals Goal Patient Goal Type Associated Problems Recent Progress Patient-Stated? Author Blood Pressure < 140/90 Blood Pressure 129/69(2024 10:12 AM EDT) No Piers-Gambl e, Lisa, PharmD Hemoglobin A1c < 8 Result Component 6.4( 5 10:40 AM EDT) No Lisa Anguiano, PharmD documented as of this encounter Visit Diagnoses Not on filedocumented in this encounter Additional Health Concerns Assessment Noted Time PHQ-9 Depression Total Score: 0 04/06/20 24 9:11 AM EDT documented as of this encounter Care Teams Car Wash Attendant Automatic Relationship Specialty Start Date End Date Daisha Crane MD 230 [place] [address] PCP - General Family Medicine 11/01/18 Lisa Liao, PharmD [address] [place] [address] Pharmacist Internal Medicine 04/06/23 02/02/25 Alissa Santillan MD [address] [place] [address] Rheumatology 11/09/24 Sharon Guardado [address] 3rd [place] [address] Cardiology 11/13/24 Cedric Lujan MD [address] [place] [address] Orthopaedic Surgery 11/23/24 Rory Angeles MD [address] [place] [address] Pain Medicine 02/06/25 Jairon Crawford OD [facility] [address] [place] [address] Optometry 03/07/25 Laura Velarde MD Rheumatology 03/28/25 documented as of this encounter
--- OUTSIDE RECORDS SUMMARY | 2025-06-26 06:15 | XMS_ITS | Encounter Summary ---
Author Organization [employer] Address [address] [facility] 7t [place] [address] Care Team Providers Care Radiology Nurse Name Role Phone Daisha Crane MD Primary Care Provider +1- [phone] Lisa Liao PharmD Unavailable Alissa Santillan MD Unavailable Sharon Guardado Unavailable Cedric Lujan MD Unavailable Rory Angeles MD Unavailable Jairon Crawford OD Unavailable Reason for Visit * Reason Onset Date Comments Med Refill 11/24/2023 Encounter Details Date Type Department Care Team (Late st Contact Info) Description 11/24/2023 Telephone [facility] 230 [place], [place] [phone] Daisha Crane MD 230 [place], [place] [phone] Med Refill Social History Tobacco Use Types [...] immediate release tablet To be sent to: [facility] - [place], [place] - [address] [place] [address] documented in this encounter Plan of Treatment Upcoming Encounters Date Type Department Care Team ([facility] st Contact Info) Description 07/20/2025 9:00 AM EDT Clinical Support [facility] 230 [place] [address] Loyda Banda, SO 505 [place] [address] documented as of this encounter Goals Goal Patient Goal Type Associated Problems Recent Progress Patient-Stated? Author Blood Pressure < 140/90 Blood Pressure 129/69(2024 10:12 AM EDT) No Lisa Anguiano, PharmD Hemoglobin A1c < 8 Result Component 6.4( 10:40 AM EDT) No Lisa Anguiano, PharmD documented as of this encounter Visit Diagnoses Not on filedocumented in this encounter Additional Health Concerns Assessment Noted Time PHQ-9 Depression Total Score: 0 11/23/19 23 10:39 AM EST documented as of this encounter Care Teams Radiology Nurse Relationship Specialty Start Date End Date Daisha Crane MD [address] [place] [address] PCP - General Family Medicine 11/01/18 Lisa Liao, GenevaD [address] [place] [address] Pharmacist Internal Medicine 04/06/23 02/02/25 Alissa Santillan MD [address] [place] [address] Rheumatology 11/09/24 Sharon Guardado [address] 3rd [place] [address] Cardiology 11/13/24 Cedric Lujan MD [address] [place] [address] Orthopaedic Surgery 11/23/24 Rory Angeles MD [address] [place] [address] Pain Medicine 02/06/25 Jairon Crawford OD [facility] [address] [place] [address] Optometry 03/07/25 Laura Velarde MD Rheumatology 03/28/25 documented as of this encounter
--- OUTSIDE RECORDS SUMMARY | 2025-06-26 06:15 | XMS_ITS | Encounter Summary ---
Author Organization [employer] Address [address] [facility] 7t [place] [address] Care Team Providers Care Biological Lab Technician Name Role Phone Daisha Crane MD Primary Care Provider +1- [phone] Alissa Santillan MD Unavailable Sharon Guardado Unavailable Cedric Lujan MD Unavailable Rory Angeles MD Unavailable Jairon Crawford OD Unavailable Reason for Visit * Reason Onset Date Comments Med Refill 03/23/2025 Encounter Details Date Type Department Care Team (Late st Contact Info) Description 03/23/[address] [facility] MEDICINE 230 [place], [place] [phone] Daisha Crane MD 230 [place], [place] [phone] Med Refill Social History Tobacco Use Types [...] encounter Miscellaneous Notes * Telephone Encounter - Marissa Sanders - 03/23/2025 9:29 AM EDT TC from pt requesting medication refill. Medications needing refill : oxyCODONE (Roxicodone) 5 MG immediate release tablet To be sent to: [facility] - [place], [place] - [address] [facility] documented in this encounter Plan of Treatment Upcoming Encounters Date Type Department Care Team (Late st Contact Info) Description 07/20/2025 9:00 AM EDT Clinical Support [facility]INE [address] [place] [address] Loyda Banda, SO [address] [place] [address] documented as of this encounter Goals Goal Patient Goal Type Associated Problems Recent Progress Patient-Stated? Author Blood Pressure < 140/90 Blood Pressure 129/69(05/07/ 2025 10:12 AM EDT) No Lisa Anguiano PharmD Hemoglobin A1c < 8 Result Component 6.4( 5 10:40 AM EDT) No Lisa Anguiano PharmD documented as of this encounter Visit Diagnoses Not on filedocumented in this encounter Additional Health Concerns Assessment Noted Time PHQ-9 Depression Total Score: 7 03/07/20 25 10:43 AM EDT documented as of this encounter Care Teams Biological Lab Technician Relationship Specialty Start Date End Date Daisha Crane MD [address] [place] [address] PCP - General Family Medicine 11/01/18 Alissa Santillan MD [address] [place] [address] Rheumatology 11/09/24 Sharon Guardado [address] 3rd [place] [address] Cardiology 11/13/24 Cedric Lujan MD [address] [place] [address] Orthopaedic Surgery 11/23/24 Rory Angeles MD [address] [place] [address] Pain Medicine 02/06/25 Jairon Crawford OD [facility] [address] [place] [address] Optometry 03/07/25 Laura Velarde MD Rheumatology 03/28/25 documented as of this encounter
--- OUTSIDE RECORDS SUMMARY | 2025-06-26 06:15 | XMS_ITS | Encounter Summary ---
Author Organization [employer] Address [address] [facility] 7t [place] [address] Care Team Providers Care Director Of Curriculum Name Role Phone Daisha Crane MD Primary Care Provider +1- [phone] Lisa Liao PharmD Unavailable Alissa Santillan MD Unavailable Sharon Guardado Unavailable Cedric Lujan MD Unavailable Rory Angeles MD Unavailable Jairon Crawford OD Unavailable Reason for Visit * Reason Onset Date Comments Med Refill 06/05/2024 Encounter Details Date Type Department Care Team (Late st Contact Info) Description 06/05/2024 Telephone [facility] 230 [place], [place] [phone] Daisha Crane MD 230 [place], [place] [phone] Med Refill Social History Tobacco Use Types [...] immediate release tablet To be sent to: [facility] - [place], [place] - [address] [place] [address] documented in this encounter Plan of Treatment Upcoming Encounters Date Type Department Care Team (Late st Contact Info) Description 07/20/2025 9:00 AM EDT Clinical Support [facility] 230 [place] [address] Loyda Banda RN 505 [place], [place] [phone] documented as of this encounter Goals Goal [...] as of this encounter Care Teams Director Of Curriculum Relationship Specialty Start Date End Date Daisha Crane MD [address] [place] [address] PCP - General Family Medicine 11/01/18 Lisa Liao, PharmD [address] [place] [address] Pharmacist Internal Medicine 04/06/23 02/02/25 Alissa Santillan MD [address] [place] [address] Rheumatology 11/09/24 Sharon Guardado [address] 3rd [place] [address] Cardiology 11/13/24 Cedric Lujan MD [address] [place] [address] Orthopaedic Surgery 11/23/24 Rory Angeles MD [address] [place] [address] Pain Medicine 02/06/25 Jairon Crawford OD [facility] [address] [place] [address] Optometry 03/07/25 Laura Velarde MD Rheumatology 03/28/25 documented as of this encounter
--- OUTSIDE RECORDS SUMMARY | 2025-06-26 06:15 | XMS_ITS | Clinical Summary ---
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 90 tablet 3 024 Active hydroCHLOROthia zide 12.5 MG tabletIndicatio ns:Hypertension [...] DAY ON WEDNESDAY AND Wednesday 024 Active atorvastatin (Lipitor) 40 MG tabletIndicatio ns:Dyslipidemia TAKE 1 TABLET BY MOUTH AT BEDTIME 90 tablet 3 025 Active albuterol (Ventolin HFA) 108 (90 Base) MCG/ACT inhalerIndicati ons:Mild intermittent asthma without complication INHALE 2 PUFFS BY MOUTH EVERY 4 HOURS NEEDED FOR WHEEZING OR SHORTNESS OF BREATH 18 g 025 Active FREESTYLE LITE test stripIndication s:Type 2 diabetes mellitus without complication, unspecified whether terminal carman insulin use (CMS/HCC) TEST BLOOD SUGAR TWICE DAILY 50 strip 11 025 Active omeprazole (PriLOSEC) [address] capsuleIndicati ons:Gastroesoph ageal reflux disease without esophagitis TAKE 1 CAPSULE BY MOUTH EVERY MORNING BEFORE A MEAL 90 capsule 3 025 Active predniSONE (Deltasone) 10 MG tabletIndicatio ns: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 Active Methotrexate, PF, (Rasuvo) 25 MG/0.5ML solution auto-injectorIn dications:Rheum atoid arthritis involving multiple sites with positive rheumatoid factor (CMS/HCC) Inject under the skin. Active carvedilol (Coreg) 6.25 MG tabletIndicatio ns:Hypertension , unspecified type Take by mouth with breakfast and with evening meal. 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 SPRAY 0.1mL IN ONE NOSTRIL. REPEAT IN ALTERNATE NOSTRIL 2-3 MINUTES IF NEEDED. SEEK MEDICAL ATTENTION IMMEDIATELY EVEN IF PATIENT RESPONDS. 2 each 025 Active metFORMIN XR (Glucophage-XR) 500 MG 24 hr tabletIndicatio ns:Type 2 diabetes mellitus without complication, without long-term current use of insulin (CMS/HCC) TAKE 1 TABLET BY MOUTH TWICE DAILY IN THE MORNING AND IN THE EVENING DO NOT BREAK, CRUSH, DISSOLVE OR CHEW 180 tablet 3 025 Active TRUEplus Lancets 33G miscIndications :Type 2 diabetes mellitus without complication, without long-term current use of insulin (CMS/HCC) USE DIRECTED TO TEST BLOOD SUGAR TWICE DAILY 100 each 025 Active cholecalciferol (Vitamin D-3) 25 MCG tabletIndicatio ns:Vitamin D deficiency Take 1 tablet (25 mcg) by mouth in the morning. 90 tablet 025 Active docusate sodium (Colace) 100 MG capsuleIndicati ons:Constipatio n, unspecified constipation type TAKE 1 CAPSULE BY MOUTH TWICE DAILY IN THE MORNING AND IN THE EVENING 180 capsule Active senna (Senokot) 8.6 MG tabletIndicatio ns:Constipation , unspecified constipation type TAKE 2 TABLETS BY MOUTH EVERY DAY IN THE EVENING NEEDED FOR CONSTIPATION 180 tablet 025 Active Arnuity Ellipta 200 MCG/ACT inhalerIndicati ons:Chronic obstructive pulmonary disease, unspecified COPD type (CMS/HCC) INHALE 1 PUFF BY MOUTH EVERY DAY AT THE SAME TIME. RINSE MOUTH AFTER USING. 30 each Active melatonin 3 MG tabletIndicatio ns:Primary insomnia TAKE 1 TABLET BY MOUTH AT BEDTIME NEEDED FOR SLEEP 30 tablet Active Incruse Ellipta 62.5 MCG/ACT aerosol powderIndicatio ns:Simple chronic bronchitis (CMS/HCC) INHALE 1 PUFF BY MOUTH EVERY DAY AT THE SAME TIME RINSE MOUTH AFTER USING 30 each 025 Active oxyCODONE (Roxicodone) 5 MG immediate [...] be different from the original. Enrolled in [facility] DM and HTN clinic with Lisa Liao, GenevaD, [facility] Neurological Surgery Teacher: Denise, member services number [phone] Neurosurgery Research Director Agency: [facility], [facility] Problem Noted Date Diagnosed Date Transaminitis 09/04/2024 Overview (03/07/2025): Lab Results Component Value Date TOTALBILIRUB 0.9 10/09/2024 AST 33 10/09/2024 ALT 33 10/09/2024 ALT 30 03/25/2021 ALP 48 10/09/2024 HEPCAB Nonreactive 11/11/2023 HEPAIGM Nonreactive 11/11/2023 HEPBSURFAB NONREACTIVE 11/11/2023 HEPBCOREAB Nonreactive 11/11/2023 HEPBSURFACAG Negative 11/11/2023 FERRITIN 18 (L) 10/09/2024 Assessment & Plan (09/04/2024 5:00 PM EST): -ordered labs 09/04/24 terminal carman (current) use of opiate analgesic 08/03 Neuropathic [...] house Enlarged and hypertrophic nails 04/06/2024 Overview (03/07/2025): -referral placed to Podiatry 04/06/[address] Daniels, he was not happy with with visit. He would like referral to [facility] , new referral placed 09/04/24 -Saw Podiatry 11/07/24 Assessment & Plan (09/04/2024 4:56 PM EST): -referral placed to Podiatry 04/06/[address] Daniels, he was not happy with with visit. He would like referral to [facility] , new referral placed 09/04/24 Assessment & Plan (04/06/2024 9:55 AM EDT): -referral placed to Podiatry 04/06/2024 Other specified health status 06/03/2023 Overview (03/07/2025): -next physical exam due after 09/04/2025 -eye care facilitated by [facility] -dental home is [facility] in [place]. -healthcare Proxy completed and filed 04/06/2024. Assessment & Plan (09/04/2024 5:02 PM EST): -next physical exam due after 09/04/2025 -eye care facilitated by [facility] and [facility] -dental home is [facility] [place]. -healthcare Proxy completed and filed 04/06/2024. Assessment & Plan (04/06/2024 9:51 AM EDT): -next physical exam due after 06/04/2024. -eye care facilitated by [facility]. -dental home is [facility] [place]. -healthcare Proxy completed and filed 04/06/2024. Assessment & Plan (06/04/2023 9:45 AM EDT): -next physical exam due after 06/04/2024. -eye care facilitated by [facility]. -dental home is [facility] [place]. Ascending aorta dilation 04/06/2023 Overview (03/07/2025): Followed by Sharon LEWIS for [facility]. Seen 01/14/25. -Hx of dilated [...] PM EST): Followed by Sharon AREVALOC for [facility]. Seen 05/30/24 -Hx of dilated [...] in 2023. Bicuspid aortic valve 04/06/2023 Overview (03/07/2025): -Followed by Sharon AREVALOC for [facility]. -Known hx of Bicuspid aortic valve without stenosis or regurgitation. Followed by echocardiograms. Last echo 08/25/2023 shows mild calcification of the aortic valve, no regurgitation or stenosis. Repeat echo ordered 2023. -Sharon AREVALOC for [facility] 11/2024 Prior notes indicate a [...] not. 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 Overall stable Leg edema 04/06/2023 Overview (05/31/2024): Followed by Sharon LEWIS for [facility] 05/30/24. History of leg edema [...] September 2024. GERD (gastroesophageal reflux disease) 3 detention systemic steroid user 04/06/2023 Osteoporosis 04/06/2023 Overview (04/06/2024): DEXA from November 2019 with osteopenia but high FRAX score. Patient started on Fosamax in November 2019, tolerating medications. His repeat DEXA scan in 2021 shows mild insignificant improvement. Alendronate was stopped sometime 2021 in preparation [...] DEXA scan in 2021 shows mild insignificant improvement. Alendronate was stopped sometime 2021 in preparation [...] DEXA scan in 2021 shows mild insignificant improvement. Alendronate was stopped sometime 2021 in preparation for his dental implants. Patient already has his dental implants. Fosamax restarted 09/2022. Discontinue 11/2023 due to GI upset.. DEXA scan done 03/30/2024 which showed osteopenia based on the lowest T-score value of -1.7 in the femoral neck applying World Health Organization criteria. Anemia 11/20/2022 Overview (03/07/2025): Lab Results Component Value Date FERRITIN 18 (L) 10/09/2024 FERRITIN 18 (L) 06/17/2023 HGB 10.7 (L) 11/03/2024 HGB 11.0 (L) 09/15/2024 HGB 13.6 03/25/2021 HEMATOCRIT 41.2 03/25/2021 -ordered [...] as pharmacomtherapy, [facility], and [facility] pharmacy smoking cessation clinic Discussed [...] as pharmacomtherapy, [facility] smoking cessation group, and [facility] pharmacy smoking cessation clinic Discussed [...] as pharmacomtherapy, [facility] smoking cessation group, and [facility] pharmacy smoking cessation clinic Discussed [...] sites with positive rheumatoid factor 11/20/2022 Overview (03/28/2025): Seen by sap data architect Dr. Minnie Santillan 05/23/24 -On Actemra 162 [...] 200 mg daily x2 days a week -Dr. Shah note 03/27/25 - s/p steroid injection to right wrist - Decrease prednisone to 7.5mg daily - Methotrexate 25mg SC - Folic acid 1mg daily - Actemra 162mg SC - Hydroxychloroquine 300mg daily - RTC 3 months - Labs before visit: CBC, CMP, ESR, CRP Assessment & Plan (09/04/2024 5:00 PM EST): Seen by sap data architect Dr. Minnie Santillan 05/23/24 -On Actemra 162 [...] Plan (04/06/2024 9:51 AM EDT): Followed by sap data architect. Per note 11/18/23:On Actemra 162 mg every [...] the right ECU swelling does not improve Quality Rep would like to restart hydroxychloroquine, will refer patient to Ophthalmology for a baseline hydroxychloroquine screening. If patient is cleared. Will start hydroxychloroquine Continue Rasuvo 25 mg weekly + Actemra every other week. Chest CTA 10/2022 showed no evidence of ILD T-spot and Hepatitis panel -ve 11/2023,. Labs before next visit in 3 months via rheumatology Seen by sap data architect Dr. Minnie Santillan 02/23/24 -On Actemra 162 [...] Plan (06/04/2023 9:39 AM EDT): -Followed by sap data architect Dr. Fisher. -Currently on prednisone 2 mg daily -med rec to make sure we have correct meds on file -Continue Oxycodone 5mg BID as needed for pain -Did not tolerate Methotrexate, then Leflunomide 20mg daily but then d/c due to rash Assessment & Plan (11/20/2022 10:23 AM EST): -Followed by sap data architect Dr. Fisher. -Currently on prednisone 2 mg daily -med rec to make sure we have correct meds on file -Continue Oxycodone 5mg BID as needed for pain -Did not tolerate Methotrexate, then Leflunomide 20mg daily but then d/c due to rash Heart murmur 10/13/2022 Overview (03/07/2025): -Echo on 09/15/2021 had EF of 60-65%. Suspect bicuspid aortic valve with fusion of the left and non-coronary cusps. No significant stenosis or regurgitation. Mild aortic annular dilatation measuring 4cm and ascending aorta 4.3cm -[employer] Sales Representative Nanette Leonard seen in April 2022. - Now followed by Sharon Guardado NP-C for [facility] -History of leg edema with higher dose amlodipine use. He did have improvement in his swelling when his amlodipine was reduced to 5 mg daily and then discontinued. -echo does show a normal EF, impaired relaxation. He is on hydrochlorothiazide. He is on prednisone which can contribute to some mild edema. -given compression stockings 05/30/24 -Sharon Guardado NP-C for [facility] 11/2024 Hx of dilated ascending aorta. Echo done 08/28/22 shows moderate dilation of ascending aorta at 4.6 cm. He then had a CTA of chest showing sinus of valsalva dilated at 4.7 cm and ascending aorta dilated at 4.2 cm. Repeat echocardiogram done 08/25/2023 shows EF 60-65%, dilated ascending aorta 4.6 cm. Last echo done 08/10/2024 shows EF 60-65%, dilated ascending aorta 4.7 cm. Will further evaluate his ascending aorta with a repeat CTA of the chest. Prior notes indicate a hx of Bicuspid aortic valve without stenosis or regurgitation. Followed by echocardiograms. Last echo 08/25/2023 shows mild calcification of the aortic valve, no regurgitation or stenosis. Echocardiogram 08/10/2024 is showing normal aortic valve structure and function with no stenosis or regurgitation. It is unclear to me if he truly has a bicuspid aortic valve or not. Reports of chest discomfort occurring at rest. He is mostly sedentary. Episodes lasting a few minutes and resolving. No known triggers or alleviating factors. States this is a new symptom for him. Recent echo with no regional wall motion abnormality. Last nuclear stress test done 10/15/2021 showing normal myocardial perfusion imaging. NM/NM cardiolite stress test 12/20/24 Impression: Myocardial perfusion imaging study shows normal myocardial perfusion. Gated LVEF is 68% during stress and 63% during rest. Transient ischemic dilatation not present. Assessment & Plan (09/04/2024 4:55 PM EST): [...] dilatation measuring 4cm and ascending aorta 4.3cm [employer] Sales Representative Nanette Leonard seen in April 2022. Followed by Sharon LEWIS for [facility] 05/30/24. History of leg edema [...] dilatation measuring 4cm and ascending aorta 4.3cm [employer] Sales Representative Nanette Leonard seen in April 2022. Assessment [...] dilatation measuring 4cm and ascending aorta 4.3cm [employer] Sales Representative Nanette Leonard seen in April 2022. Assessment [...] dilatation measuring 4cm and ascending aorta 4.3cm [employer] Sales Representative Nanette Leonard seen in April 2022. Currently on Rasuvo 25mg weekly, Humeria. Prednisone 2mg daily. -decreased it to 1 mg daily. T2DM (type 2 diabetes mellitus) 10/13/2022 Overview (03/07/2025): Diabetes is controlled. Lab Results Component Value Date HGBA1C 6.4 (A) 03/07/2025 HGBA1C 6.9 (A) 09/04/2024 HGBA1C 7.0 (HH) 04/06/2024 Lab Results Component Value Date CREATININE 0.9 01/02/2025 EGFR >60 10/09/2024 MICROALBCREU 18.6 09/15/2024 MICROALBCREU 17.0 06/17/2023 LDLCHOLCAL 43 10/09/2024 -Marlo/Arb: none ALLERGY TO MARLO -Statin therapy: atorvastatin 40mg -Diabetic eye exam: Had appt Dec 2024 -Diabetic foot exam: Saw Podiatry 11/07/24, foot exam with me 03/07/25 -Continue lifestyle modifications Assessment & Plan (03/07/2025 1:37 PM EDT): Diabetes is controlled. Lab Results Component Value Date HGBA1C 6.4 (A) 03/07/2025 HGBA1C 6.9 (A) 09/04/2024 HGBA1C 7.0 (HH) 04/06/2024 Lab Results Component Value Date CREATININE 0.9 01/02/2025 EGFR >60 10/09/2024 MICROALBCREU 18.6 09/15/2024 MICROALBCREU 17.0 06/17/2023 LDLCHOLCAL 43 10/09/2024 -Marlo/Arb: none ALLERGY TO MARLO -Statin therapy: atorvastatin 40mg -Diabetic eye exam: Had appt Dec 2024 -Diabetic foot exam: Saw Podiatry 11/07/24, foot exam with me 03/07/25 -Continue lifestyle modifications Assessment & Plan (09/04/2024 [...] 08/03/2013 Tubular adenoma of colon 08/03/2013 Overview (03/07/2025): Hx tubular adenoma on colonoscopies 02/03/13 and [...] 2020, next due in 5 years, 12/2025 HTN (hypertension) 05/05/2012 Overview (09/04/2024): Amlodipine 5mg discontinued by CDTM 05/22/24 due to noted edema Continue hydrochlorothiazide 12.5mg once daily and carvedilol 6.25mg Was seen by cardiology 05/30/24 and plan above noted to continue Work on lifestyle modifications, especially smoking cessation Assessment & Plan (03/07/2025 1:45 PM EDT): Amlodipine 5mg discontinued by CDTM 05/22/24 due [...] - tobacco cessation encouraged Dyslipidemia 05/05/2012 Overview (03/07/2025): Lab Results Component Value Date CHOL 104 10/09/2024 CHOL 115 02/16/2024 CHOL 155 06/17/2023 TRIG 122 10/09/2024 TRIG 205 (H) 02/16/2024 TRIG 166 06/17/2023 HDL 37 (L) 10/09/2024 HDL 41 02/16/2024 HDL 55 06/17/2023 LDLCHOLCAL 43 10/09/2024 LDLCHOLCAL 33 02/16/2024 LDLCHOLCAL 67 06/17/2023 -continue lifestyle modification -Vascepa 2 grams twice [...] started by CD 05/22/24 Assessment & Plan (04/06/2024 9:52 AM [...] plan to be transported to [facility] via ambulance . Case discussed with provider at [facility] ER Cutaneous skin tags 05/18/2023 03/30/20 24 [...] Encounters Date Type Department Care Team Description 06/12/2025 Refill [facility] [address] [place] [address] Loyda Banda RN Pain 06/12/2025 Telephone [facility] MEDICINE [address] [place] [address] Daisha Crane MD Med Refill 05/15/2025 Refill [facility] [address] [place] [address] Daisha Craen MD Pain 05/15/2025 Refill [facility] [address] [place] [address] Loyda Banda RN Pain 05/14/2025 11:00 AM EDT Telemedicine [facility] [address] [place] [address] Loyda Banda, SO detention (current) use of opiate analgesic 05/14/2025 Telephone [facility] [address] [place] [address] Loyda Banda RN 05/14/2025 Travel 05/09/2025 Refill [facility] MED[facility] [address] [place] [address] Daisha Crane MD Constipation, unspecified constipation type; Chronic obstructive pulmonary disease, unspecified COPD type (CMS/HCC); Primary insomnia; Simple chronic bronchitis (CMS/HCC) 04/17/2025 Refill [facility] [address] [place] [address] Daisha Crane MD Pain 04/16/2025 Refill [facility] MED[facility] [address] [place] [address] Daisha Crane MD Type 2 diabetes mellitus without complication, without long-term current use of insulin ([facility]); Vitamin D deficiency 04/16/2025 Refill [facility] MED[facility] [address], [place] [phone] [facility] Vitamin D deficiency 04/10/2025 Refill [facility] MED[facility] [address], [place] [phone] Daisha Crane MD Type 2 diabetes mellitus without complication, without long-term current use of insulin ([facility]) from Last 3 Months Immunizations Immunization Administration Dates Next Due Hep A, Adult [...] free 11/10/2018 Moderna Covid-19 Vaccine 12+ 05/18/2022, 11/26/2021,01/23/2021,02/25 /2021 Pfizer Covid-19 Vaccine 12+ 09/04/2024 Pfizer Covid-19 Vaccine 12+ Bivalent 06/04/2023 Pneumococcal Conjugate PCV 13 05/15/2016 Pneumococcal Conjugate PCV 20 08/17/2023 Pneumococcal Polysaccharide PPSV23 08/11/2017,,10/30/2002 RSV Bivalent 04/11/2024 TD (adult), 2 Lf tetanus tox oid, preservative free, adsorbed 02/01/2007,08/01/2003,11/01/1995 Tdap 06/04/2023,05/18/2012 Zoster, Recombinant 05/10/2020,12/25/2019 Zoster, live 05/15/2016 Family History Medical History Relation Name Comments Breast cancer Mother Relation Name Status Comments Mother Social History Tobacco Use Types Packs/Day Years [...] Sign Reading Time Taken Comments Blood Pressure 129/69 03/07/2025 10:12 AM EDT Pulse 69 03/07/2025 10:12 AM EDT Temperature 36.2 C (97.1 F) 03/07/2025 10:12 AM EDT Respiratory Rate 17 03/07/2025 10:12 AM EDT Oxygen Saturation 99% 03/07/2025 10:12 AM EDT Inhaled Oxygen Concentration - - Weight 71.7 kg (158 lb) 03/07/2025 10:12 AM EDT Height 167.6 cm (5' 6 ) 03/07/2025 10:12 AM EDT Body Mass Index 25.5 03/07/2025 10:12 AM EDT Plan of Treatment Upcoming Encounters Date Type Department Care Team (Late st Contact Info) Description 07/20/2025 9:00 AM EDT Clinical Support [facility] MEDICINE [address] [place] [phone] Loyda Banda, RN [address] [place] [address] Health Maintenance Due Date Last Done Comments COVID-19 Vaccine ( season) 2025 09/04/2024, 06/04/2023, 05/18/2022, Additional history exists Eye Exam 05/13/2025 05/13/2023, 05/01, 05/13/2023, Additional history exists Influenza Vaccine (#1) 2025 , 08/17/2023, 09/28/2022, Additional history exists Alcohol/Substance Use Screening 09/04/2025 09/04/2024 Tobacco Screening 09/04/2025 09/04/2024 Diabetes: Hemoglobin A1C 09/07/2025 025, 09/04/2024, 04/06/2024, Additional history exists Diabetes: Urine Protein Screening 09/15/2025 09/15/2024, 06/17/2023 Lipid Panel 10/09/2025 10/09/2024, 01/30, 06/17/2023, Additional history exists Depression Screening 03/07/2026 03/07/2025, 03/07/20 25 Diabetes: Foot Exam 03/07/2026 03/07/2025, 03/07/2025, 03/07/2025, Additional history exists SDOH Screening 03/07/2026 03/07/2025 DTaP/Tdap/Td Vaccines (3 - Td or Tdap) [...] Aged 60 years or older Completed 04/11/2024 CT Colonography Discontinued FIT DNA/Cologuard Discontinued FIT Discontinued FOBT Discontinued HIB Vaccines Aged Out No longer eligi ble based on patient's age to complete this topic HPV Vaccines Aged Out No longer eligi ble based on patient's age to complete this topic IPV Vaccines Aged Out No longer eligi ble based on patient's age to complete this topic Meningococcal B Vaccine Aged Out No l onger eligible based on patient's age to complete [...] 10:40 AM EDT) No Lisa Anguiano PharmD Procedures Procedure Name Priority Date/Time Associated Diagnosis Comments POCT GLYCOSYLATED HEMOGLOBIN (HGB A1C) Routine 03/07/2025 10:40 AM EDT Type 2 diabetes mellitus with hyperglycemia, without long-term current use of insulin ([facility]) LIPID PANEL, STANDARD Routine 10/09/2024 8:05 AM EST Dyslipidemia ALBUMIN, RANDOM URINE W/CREATININE Routine 09/15/2024 8:03 AM EST Type 2 diabetes mellitus without complication, unspecified whether long-term insulin use ([facility]) HEPATITIS PANEL, GENERAL Routine 11/11/2023 10:39 AM EST HM COLONOSCOPY Routine 12/21/2020 from Last 3 Months or Most Recently Relevant to Health Maintenance Results * (ABNORMAL) POCT glycosylated hemoglobin (Hgb A1c) (03/07/2025 10:40 AM EDT) Hemoglobin A1C 6.4(A) 4.0 - 6.0 % QC Media Lot # [id number] Lot# Expiration Date Blood Capillary blood specimen / Unknown 03/07/2025 10:40 AM EDT us Daisha Crane MD POINT OF CARE TEST ENTER/E DIT ORDERABLES Final Result * (ABNORMAL) Lipid Panel, Standard (10/09/2024 8:05 AM EST) Triglycerides 122 <150 mg/dL [facility] Comment:Desirable Triglyceri de: less than 150 mg/dLBorderline High Triglyceride 150-199 mg/dLHigh Triglyceride: 200-499 mg/dLVery High Triglyceride: greater than or equal to 5OO mg/dL Cholesterol 104 <200 mg/dL [facility] Comment:Desirable Cholestero l: less than 200 mg/dLBorderline High Cholesterol: 200-239 mg/dLHigh Cholesterol: greater than 239 mg/dL LDL Cholesterol Calculated 43 <100 mg/dL [facility] Comment:Desirable LDL: less than 100 mg/dLNear Optimal/Above Optimal LDL: 110- 129 mg/dLBorderline High LDL: 130-159 mg/dLHigh LDL: 160-189 mg/dLVery High LDL: greater than or equal to 190 mg/dL HDL Cholesterol 37(L) >40 mg/dL [facility] Comment:Desirable HDL: great er than 40 mg/dL Note: This HDL assay may give artificially low results in patients with liver disease. Blood Venous blood specimen / Unknown 10/09/2024 8:05 AM EST 10/09/2024 11:50 AM EST Daisha Crane MD LAB BLOOD ORDERABLES Final Result Performing Organization Address City/[facility] Co de Phone Number [facility] [address] [place] [phone] * Albumin, Random Urine W/Creatinine (09/15/2024 8:03 AM EST) Creatinine, Urine 107.16 mg/dL [facility] Microalbumin Urine 20.0 mg/L [facility] [facility] Microalbum Creatinine Ratio Ur 18.6 <30 ug/mg cr [facility] Comment:Albumin/Creatinine R atio Reference Ranges: Normal: < 30 ug/mg creatinine Microalbuminuria: 30 - 300 ug/mg creatinineClinical Albuminuria: > 300 ug/mg creatinine Urine 09/15/2024 8:03 AM EST 09/15/2024 11:09 AM EST Daisha Crane MD LAB URINE ORDERABLES Final Result Performing Organization Address [facility] Co de Phone Number [facility] [address] [place] [phone] * Hepatitis Panel, General (11/11/2023 10:39 AM EST) Hepatitis A IgM Nonreactive Nonreactive [facility] Comment:IgM antibodies to WAGONER V not detected; does not exclude earlyacute or recovered HAV infection. ~Hepatitis B Surface Antibody NONREACTIVE Nonreactive [facility] Comment:Nonreactive: < 8.00 mIU/mL Hepatitis B Core Antibody Nonreactive Nonreactive [facility] Hepatitis C Antibody Nonreactive Nonreactive [facility] Comment:Antibodies to HCV no t detected; does not exclude early acuteHCV infection. Hepatitis B Surface Ag Negative Negative [facility] 11/11/2023 10:3 9 AM EST 11/11/2023 10:39 AM EST us Generic External Data Provider LAB BLOOD ORDERAB LES Final Result Performing Organization Address City/State/[facility] Co de Phone Number [facility] [address] [place] [phone] * Colonoscopy (12/21/2020) Colonoscopy tubular adenoma with Dr. Rodríguez Historical Provider HEALTH MAINTENANCE Final Result from Last 3 Months or Most Recently Relevant to Health Maintenance Insurance [facility] F[employer] OPTIONS (HMO D-SNP) [place] [id number] [facility] Advance Directives Documents on File Type Date Recorded Patient Administrative And Program Specialist Expl anation Advance Directives and Living Will 04/06/2024 Health Care Proxy 04/06/24 Care Teams Personal Banking Advisor Relationship Specialty Start Date End Date Aguada, MD Daisha [address] [place] [address] PCP - General Family Medicine 11/01/18 Alissa Santillan MD [address] [place] [address] Rheumatology 11/09/24 Sharon Guardado [address] 3rd [place] [address] Cardiology 11/13/24 Cedric Lujan MD [address] [place] [address] Orthopaedic Surgery 11/23/24 Rory Angeles MD [address] [place] [address] Pain Medicine 02/06/25 Jairon Crawford OD [facility] [address] [place], [place] [address] Optometry 03/07/25 Laura Velarde MD Rheumatology 03/28/25
--- OUTSIDE RECORDS SUMMARY | 2025-06-26 06:15 | XMS_ITS | Encounter Summary ---
Author Organization [employer] Address [address] [facility] 7t [place] [address] Care Team Providers Care Diver Pumper Name Role Phone Daisha Crane MD Primary Care Provider [phone]- [phone] Lisa Liao PharmD Unavailable Alissa Santillan MD Unavailable Sharon Guardado Unavailable Cedric Lujan MD Unavailable Rory Angeles MD Unavailable Jairon Crawford OD Unavailable Reason for Visit * Reason Comments Med Refill Encounter Details Date Type Department Care Team (Late st Contact Info) Description 02/06/2024 Refill [facility] [address] [place], [place] [phone] Lisa Liao, PharmD [address] [place], [place] [phone] Social History Tobacco Use Types Packs/Day Years [...] Description 07/20/2025 9:00 AM EDT Clinical Support [facility] [address] [place] [phone] Loyda Banda RN [address] [place], [place] [phone] documented as of this encounter Goals Goal [...] documented as of this encounter Care Teams Diver Pumper Relationship Specialty Start Date End Date Daisha Crane MD [address] [place] [address] PCP - General Family Medicine 11/01/18 Lisa Liao, GenevaD [address] [place] [address] Pharmacist Internal Medicine 04/06/23 02/02/25 Alissa Santillan MD [address] [place] [address] Rheumatology 11/09/24 Sharon Guardado [address] 3[address] [place] [address] Cardiology 11/13/24 Cedric Lujan MD [address] [place] [address] Orthopaedic Surgery 11/23/24 Rory Angeles MD [address] [place] [address] Pain Medicine 02/06/25 Jairon Crawford OD [facility] [address] [place] [address] Optometry 03/07/25 Laura Velarde MD Rheumatology 03/28/25 documented as of this encounter
--- OUTSIDE RECORDS SUMMARY | 2025-06-26 06:15 | XMS_ITS | Encounter Summary ---
Author Organization [employer] Address [address] [facility] 7t [place] [address] Care Team Providers Care Integrated Circuit Design Engineer Name Role Phone Daisha Crane MD Primary Care Provider [phone]- [phone] Lisa Liao PharmD Unavailable Alissa Santillan MD Unavailable Sharon Guardado Unavailable Cedric Lujan MD Unavailable Rory Angeles MD Unavailable Jairon Crawford OD Unavailable Encounter Details Date Type Department Care Team (Late st Contact Info) Description 12/08/2022 Abstract [facility] [address] [place], [place] [phone] Daisha Crane MD [address] [place], [place] [phone] Social History Tobacco Use Types Packs/Day Years [...] Description 07/20/2025 9:00 AM EDT Clinical Support [facility] [address] [place] [address] Loyda Banda, RN [address] [place] [address] documented as of this encounter Procedures Procedure [...] documented as of this encounter Care Teams Integrated Circuit Design Engineer Relationship Specialty Start Date End Date Daisha Crane MD [address] [place] [address] PCP - General Family Medicine 11/01/18 Lisa Liao PharmD [address] [place] [address] Pharmacist Internal Medicine 04/06/23 02/02/25 Alissa Santillan MD [address] [place] [address] Rheumatology 11/09/24 Sharon Guardado [address] [place] [address] Cardiology 11/13/24 Cedric Lujan MD [address] [place] [address] Orthopaedic Surgery 11/23/24 Rory Angeles MD [address] [place] [address] Pain Medicine 02/06/25 Jairon Crawford OD [facility] [address] [place] [address] Optometry 03/07/25 Laura Velarde MD Rheumatology 03/28/25 documented as of this encounter
--- OUTSIDE RECORDS SUMMARY | 2025-06-26 06:15 | XMS_ITS | Encounter Summary ---
Author Organization [employer] Address [address] [place] [address] 7t [place] [address] Care Team Providers Care Party Host Name Role Phone Daisha Crane MD Primary Care Provider +1- [phone] Lisa Liao PharmD Unavailable [phone] Alissa Santillan MD Unavailable Sharon Guardado Unavailable Cedric Lujan MD Unavailable Rory Angeles MD Unavailable Jairon Crawford OD Unavailable Reason for Visit * Reason Onset Date Comments Med Refill 03/15/2023 Encounter Details Date Type Department Care Team (Late st Contact Info) Description 03/15/2023 Telephone [facility] [address] [place], [place] [phone] Daisha Crane MD [address] [place], [place] [phone] Med Refill Social History Tobacco Use Types [...] Description 07/20/2025 9:00 AM EDT Clinical Support [facility] [address] [place] [address] Loyda Banda RN [address] [place] [address] documented as of this encounter Visit Diagnoses Not on filedocumented in this encounter Additional Health Concerns Assessment Noted Time PHQ-9 Depression Total Score: 0 11/23/19 10:39 AM EST documented as of this encounter Care Teams Party Host Relationship Specialty Start Date End Date Daisha Crane MD [address] [place] [address] PCP - General Family Medicine 11/01/18 Lisa Liao, GenevaD [address] [place] [address] Pharmacist Internal Medicine 04/06/23 02/02/25 Alissa Santillan MD [address] [place] [address] Rheumatology 11/09/24 Sharon Guardado [address] [place] [address] Cardiology 11/13/24 Cedric Lujan MD [address] [place] [address] Orthopaedic Surgery 11/23/24 Rory Angeles MD [address] [place] [address] Pain Medicine 02/06/25 Jairon Crawford OD [facility] [address] [place] [address] Optometry 03/07/25 Laura Velarde MD Rheumatology 03/28/25 documented as of this encounter
== END 2025-06-26 06:11 | disposition home or self-care (01) ==
LOC: CF 06:10
PROVIDERS: Visit Provider Anesthesiology
DX: M25.511 Pain in right shoulder (principal); G89.29 Other chronic pain; M75.101 Unspecified rotator cuff tear or rupture of right shoulder, not specified as traumatic; M12.811 Other specific arthropathies, not elsewhere classified, right shoulder
CPT/HCPCS: 64555; J2003

== ENCOUNTER 2025-06-26 10:02 | Outpatient (AMB) | payer OTHER, SELFPAY ==
[2025-06-26 10:09] VITALS: BP 113/65; PULSE 65; RESP 18; O2SAT 99
--- NOTE | 2025-06-26 10:09 | MHC.OFFVIS ---
Vital Signs 06/26/25 10:09 Weight 160 lb BP 113/65 Blood Pressure Location Lt brachial Position Sitting Respiration 18 Pulse 65 Pulse Source Pulse Oximeter Pulse Oximetry (%) 99 Oxygen Delivery Method Room Air Intake Visit Reasons: RIGHT INTERSCALENE SPRINT PNS TRIAL Special Population Paraprofessional Required: Yes Special Population Paraprofessional Name: family Allergies lisinopril (LISINOPRIL) Allergy (Severe, Verified 03/30/25 08:55) Angioedema LAITH Inhibitors Adverse Reaction (Severe, Verified 03/30/25 08:55) Angioedema PFSH Medical History Abscess, umbilical Ascending aorta dilation Epidermal inclusion cyst 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 Osteoporosis Seropositive rheumatoid arthritis History of prostate cancer Arthritis GERD (gastroesophageal reflux disease) COPD (chronic obstructive pulmonary disease) Asthma HTN (hypertension) Surgical History History of open reduction and internal fixation (ORIF) procedure Hx of umbilical hernia repair Hx of eye surgery History of back surgery History of colonoscopy History of removal of cyst History of tonsillectomy and adenoidectomy History of arthroscopy of left shoulder History of prostate surgery Family History Mother History of breast cancer, Onset Age: 87 Father History of asthma Social History Alcohol intake: never Patient Tobacco Use Status: Current everyday Tobacco user Tobacco use type: Cigarette Cigarettes Per Day: 7 Years Smoked: 60 +/- e-Cigarette/Vaping Use: Never Used Current occupational status: retired Current occupation: Rt handed Gender identity: Male Physical Exam Vital Signs: Last Vital Signs Pulse 65 06/26/25 10:09 Resp 18 06/26/25 10:09 BP 113/65 06/26/25 10:09 Pulse Ox 99 06/26/25 10:09 Oxygen Delivery Method Room Air 06/26/25 10:09 Assessment & Plan Assessment & Plan (1) Chronic right shoulder pain: Code(s): M25.511 - Pain in right shoulder; G89.29 - Other chronic pain Category: Medical (2) Rotator cuff tear arthropathy of right shoulder: Code(s): M75.101 - Unspecified rotator cuff tear or rupture of right shoulder, not specified as traumatic; M12.811 - Other specific arthropathies, not elsewhere classified, right shoulder Category: Medical Plan Right interscalene brachial plexus sprint PNS. Ibrahim is very pleasant 79 years old gentleman who came today to the operating room to receive diagnostic interscalene nerve block. He is suffering from right shoulder osteoarthritis and rheumatoid arthritis, suprascapular nerve block resulted in no pain improvement, significant improvement patient reported on diagnostic interscalene brachial plexus block. He was positioned supine on the stretcher with the pillow under his upper back. His neck was extended and the head was turned to the left side. The right side of the neck was prepped with ChloraPrep and draped with self adhesive sterile utility towels. After that sterilely draped ultrasound probe was brought over the operating field and image of the anterior and medial scalene muscles and brachial plexus in between them in interscalene groove was demonstrated on the screen. After that percutaneous sleeve and stimulating probe lead introduction system were assembled, inserted and advanced under ultrasound guidance to the echo image of the right brachial plexus. the introducer needle was delivered to a location in proximity to the nerve. Multiple stimulation parameters were used to deliver stimulation to the nerve in concert with stimulating at multiple positions around the nerve. The nerve target acquisition was confirmed noting generation of in the corresponding to the nerve being stimulated. Various electrical parameter combinations were tested, and the lead location was adjusted (physically relocated) until the patient indicated overlapping the distribution of the patient?s typical region of pain. The stimulating probe was removed from the introducer and a percutaneous lead was guided through the needle and delivered to a location in similar proximity to the nerve. Final location was verified with electrical stimulation. The introducer needle was removed, and the exposed end of the percutaneous lead was attached to an external stimulator unit. At the end of the case various electrical parameter combinations were again tested until the patient indicated paresthesia or muscle tension overlapping the distribution of the patient?s typical region of pain. After confirming that lead impedance was in the normal range, the external unit was detached, the needle was removed, and the lead was anchored at the skin. The leads were threaded into the connector block and electrical continuity and desired patient response was confirmed. The connector block was attached to the external stimulator unit. The site was covered with a sterile occlusive dressing and a image was taken to document final placement. Orders: Orders US guide needle placement Today G89.29 - Other chronic pain, M25.511 - Pain in right shoulder Coding Level of Care Code Procedure Only Diagnoses Chronic right shoulder pain M25.511; G89.29 Rotator cuff tear arthropathy of right shoulder M75.101; M12.811 Implantable Device Implantable Device Implantable Devices Qty Lockstitch Hemmer Implant Date Expiration Date Analgesic PENS system 1 [employer] 06/26/[address] [employer] 1 08/23/20 12/29/21 Orthopaedic bone screw, non-bioabsorbable, non-sterile 1 [employer] 09/15/21 Orthopaedic bone screw, non-bioabsorbable, non-sterile 1 [employer] 09/15/21 PLATE STD RT VOLAR DIST RADIUS 1 09/15/21 SCREW 3.5X14 NON LOCK HEXALOBE 1 09/15/21 SCREW PEG 2.3X18 LOCKING 1 09/15/21 SCREW PEG 2.3X20 LOCKING 3 09/15/21
== END 2025-06-26 11:11 | disposition home or self-care (01) ==
LOC: HO.PMCPRC 10:02
PROVIDERS: PCP Family Medicine; Visit Provider Anesthesiology
DX: M25.511 Pain in right shoulder (principal); G89.29 Other chronic pain; M75.101 Unspecified rotator cuff tear or rupture of right shoulder, not specified as traumatic; M12.811 Other specific arthropathies, not elsewhere classified, right shoulder
CPT/HCPCS: 64555

== ENCOUNTER 2025-07-04 09:00 | Outpatient (REF) | payer OTHER, SELFPAY ==
[2025-07-04 09:21] LABS: MANUAL DIFF FLAG NO
--- OUTSIDE RECORDS SUMMARY | 2025-07-04 09:40 | XMS_ITS | Clinical Summary ---
Author Organization [employer] Address [address] [facility] 7t [place] [address] Care Team Providers Care Mapping Supervisor Name Role Phone Daisha Crane MD Primary Care Provider +1- [phone] Alissa Santillan MD Unavailable Sharon Guardado Unavailable [...] 2 diabetes mellitus without complication, unspecified whether residential insulin use (CMS/HCC) TEST BLOOD SUGAR TWICE [...] be different from the original. Enrolled in [facility] DM and HTN clinic with Lisa Liao, GenevaD, [facility] In Flight Refueling Operator: Denise, member services number [phone] Welfare Officer Agency: [facility], [facility] Problem Noted Date Diagnosed Date Transaminitis 09/04/2024 Overview (03/07/2025): Lab Results Component Value Date TOTALBILIRUB 0.9 10/09/2024 AST 33 10/09/2024 ALT 33 10/09/2024 ALT 30 03/25/2021 ALP 48 10/09/2024 HEPCAB Nonreactive 11/11/2023 HEPAIGM Nonreactive 11/11/2023 HEPBSURFAB NONREACTIVE 11/11/2023 HEPBCOREAB Nonreactive 11/11/2023 HEPBSURFACAG Negative 11/11/2023 FERRITIN 18 (L) 10/09/2024 Assessment & Plan (09/04/2024 5:00 PM EST): -ordered labs 09/04/24 halfway (current) use of opiate analgesic 08/03 Neuropathic [...] with visit. He would like referral to [facility] , new referral placed 09/04/24 -Saw Podiatry 11/07/24 Assessment & Plan (09/04/2024 4:56 PM EST): -referral placed to Podiatry 04/06/[address] Daniels, he was not happy with with visit. He would like referral to [facility] , new referral placed 09/04/24 Assessment & Plan (04/06/2024 9:55 AM EDT): -referral placed to Podiatry 04/06/2024 Other specified health status 06/03/2023 Overview (03/07/2025): -next physical exam due after 09/04/2025 -eye care facilitated by [facility] -dental home is [facility] [place]. -healthcare Proxy completed and filed 04/06/2024. Assessment & Plan (09/04/2024 5:02 PM EST): -next physical exam due after 09/04/2025 -eye care facilitated by [facility] and [facility] -dental home is [facility] [place]. -healthcare Proxy completed and filed 04/06/2024. Assessment & Plan (04/06/2024 9:51 AM EDT): -next physical exam due after 06/04/2024. -eye care facilitated by [facility]. -dental home is [facility] [place]. -healthcare Proxy completed and filed 04/06/2024. Assessment & Plan (06/04/2023 9:45 AM EDT): -next physical exam due after 06/04/2024. -eye care facilitated by [facility]. -dental home is [facility] [place]. Ascending aorta dilation 04/06/2023 Overview (03/07/2025): Followed by Sharon LEWIS for [facility]. Seen 01/14/25. -Hx of dilated [...] PM EST): Followed by Sharon AREVALOC for [facility]. Seen 05/30/24 -Hx of dilated [...] Overview (03/07/2025): -Followed by Sharon AREVALOC for [facility]. -Known hx of Bicuspid aortic valve without stenosis or regurgitation. Followed by echocardiograms. Last echo 08/25/2023 shows mild calcification of the aortic valve, no regurgitation or stenosis. Repeat echo ordered 2023. -Sharon AREVALOC for [facility] 11/2024 Prior notes indicate a [...] Overview (05/31/2024): Followed by Sharon LEWIS for [facility] 05/30/24. History of leg edema [...] September 2024. 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 Minine Santillan 05/23/24 -On Actemra 162 mg every [...] Plan (09/04/2024 5:00 PM EST): Seen by band nailer Dr. Minnie Santillan 05/23/24 -On Actemra 162 [...] Plan (04/06/2024 9:51 AM EDT): Followed by band nailer. Per note 11/18/23:On Actemra 162 mg every [...] the right ECU swelling does not improve Supervisor Shuttle Preparation would like to restart hydroxychloroquine, will refer patient to Ophthalmology for a baseline hydroxychloroquine screening. If patient is cleared. Will start hydroxychloroquine Continue Rasuvo 25 mg weekly + Actemra every other week. Chest CTA 10/2022 showed no evidence of ILD T-spot and Hepatitis panel -ve 11/2023,. Labs before next visit in 3 months via rheumatology Seen by band nailer Dr. Minnie Santillan 02/23/24 -On Actemra 162 [...] Plan (06/04/2023 9:39 AM EDT): -Followed by band nailer Dr. Fisher. -Currently on prednisone 2 mg daily -med rec to make sure we have correct meds on file -Continue Oxycodone 5mg BID as needed for pain -Did not tolerate Methotrexate, then Leflunomide 20mg daily but then d/c due to rash Assessment & Plan (11/20/2022 10:23 AM EST): -Followed by band nailer Dr. Fisher. -Currently on prednisone 2 mg [...] dilatation measuring 4cm and ascending aorta 4.3cm -Dye Machine Tender Nanette Leonard seen in April 2022. - Now followed by Sharon Guardado NP-C for [facility] -History of leg edema with higher dose amlodipine use. He did have improvement in his swelling when his amlodipine was reduced to 5 mg daily and then discontinued. -echo does show a normal EF, impaired relaxation. He is on hydrochlorothiazide. He is on prednisone which can contribute to some mild edema. -given compression stockings 05/30/24 -Sharon Guardado NP-C for [facility] 11/2024 Hx of dilated ascending [...] dilatation measuring 4cm and ascending aorta 4.3cm Dye Machine Tender Nanette Leonard seen in April 2022. Followed by Sharon LEWIS for [facility] 05/30/24. History of leg edema [...] dilatation measuring 4cm and ascending aorta 4.3cm Dye Machine Tender Nanette Leonard seen in April 2022. Assessment [...] dilatation measuring 4cm and ascending aorta 4.3cm Dye Machine Tender Nanette Leonard seen in April 2022. Assessment [...] dilatation measuring 4cm and ascending aorta 4.3cm Dye Machine Tender Nanette Leonard seen in April 2022. Currently [...] agreeable with plan to be transported to [facility] via ambulance . Case discussed with provider at [facility] ER Cutaneous skin tags 05/18/2023 03/30/20 24 [...] Type Department Care Team Description 06/12/2025 Refill [facility] MED & PEDS [address] [place] [address] Loyda Banda RN Pain 06/12/2025 Telephone [facility] MEDICINE [address] [place] [address] Daisha Crane MD Med Refill 05/15/2025 Refill [facility] MED & PEDS [address] [place] [address] Daisha Crane MD Pain 05/15/2025 Refill [facility] MED [facility] PEDS [address] [place] [address] Loyda Banda RN Pain 05/14/2025 11:00 AM EDT Telemedicine [facility] MED & PEDS [address] [place] [address] Loyda Banda, SO halfway (current) use of opiate analgesic 05/14/2025 Telephone [facility] MED & PEDS [address] [place] [address] Loyda Banda RN 05/14/2025 Travel 05/09/2025 Refill [facility] MEDICINE [address] [place] [address] Daisha Crane MD Constipation, unspecified constipation type; Chronic obstructive pulmonary disease, unspecified COPD type (CMS/HCC); Primary insomnia; Simple chronic bronchitis (CMS/HCC) 04/17/2025 Refill [facility] MED & PEDS [address] [place] [address] Daisha Crane MD Pain 04/16/2025 Refill [facility] MEDICINE [address] [place] [address] Daisha Crane MD Type 2 diabetes mellitus without complication, without long-term current use of insulin ([facility]); Vitamin D deficiency 04/16/2025 Refill [facility] MEDICINE [address] [place], [place] [phone] [facility] Vitamin D deficiency 04/10/2025 Refill [facility] MEDICINE [address] [place], [place] [phone] Daisha Crane MD Type 2 diabetes mellitus without complication, without long-term current use of insulin ([facility]) from Last 3 Months Immunizations [...] 9:00 AM EDT Clinical Support [facility] MEDICINE [address] [place] [phone] Loyda Banda, RN [address] [place] [address] Health Maintenance Due Date Last Done Comments [...] hyperglycemia, without long-term current use of insulin (CMS/[facility]) LIPID PANEL, STANDARD Routine 10/09/2024 8:05 AM EST Dyslipidemia ALBUMIN, RANDOM URINE W/CREATININE Routine 09/15/2024 8:03 AM EST Type 2 diabetes mellitus without complication, unspecified whether meterman insulin use (CMS/[facility]) HEPATITIS PANEL, GENERAL Routine 11/11/2023 [...] 8:05 AM EST) Triglycerides 122 <150 mg/dL [facility] Comment:Desirable Triglyceri de: less than 150 mg/dLBorderline High Triglyceride 150-199 mg/dLHigh Triglyceride: 200-499 mg/dLVery High Triglyceride: greater than or equal to 5OO mg/dL Cholesterol 104 <200 mg/dL [facility] Comment:Desirable Cholestero l: less than 200 mg/dLBorderline High Cholesterol: 200-239 mg/dLHigh Cholesterol: greater than 239 mg/dL LDL Cholesterol Calculated 43 <100 mg/dL [facility] Comment:Desirable LDL: less than 100 mg/dLNear Optimal/Above Optimal LDL: 110- 129 mg/dLBorderline High LDL: 130-159 mg/dLHigh LDL: 160-189 mg/dLVery High LDL: greater than or equal to 190 mg/dL HDL Cholesterol 37(L) >40 mg/dL [facility] Comment:Desirable HDL: great er than 40 mg/dL Note: This HDL assay may give artificially low results in patients with liver disease. Blood Venous blood specimen / Unknown 10/09/2024 8:05 AM EST 10/09/2024 11:50 AM EST Daisha Crane MD LAB BLOOD ORDERABLES Final Result Performing Organization Address City/[facility] Co de Phone Number [facility] [address] [place] [phone] * Albumin, Random Urine W/Creatinine (09/15/2024 8:03 AM EST) Creatinine, Urine 107.16 mg/dL [facility] Microalbumin Urine 20.0 mg/L [facility] Microalbum Creatinine Ratio Ur 18.6 <30 ug/mg cr [facility] Comment:Albumin/Creatinine R atio Reference Ranges: Normal: < 30 ug/mg creatinine Microalbuminuria: 30 - 300 ug/mg creatinineClinical Albuminuria: > 300 ug/mg creatinine Urine 09/15/2024 8:03 AM EST 09/15/2024 11:09 AM EST Daisha Crane MD LAB URINE ORDERABLES Final Result Performing Organization Address [facility] Co de Phone Number [facility] [address] [place] [phone] * Hepatitis Panel, General (11/11/2023 10:39 AM EST) Hepatitis A IgM Nonreactive Nonreactive [facility] Comment:IgM antibodies to WAGONER V not detected; does not exclude earlyacute or recovered HAV infection. ~Hepatitis B Surface Antibody NONREACTIVE Nonreactive [facility] Comment:Nonreactive: < 8.00 mIU/mL Hepatitis B Core Antibody Nonreactive Nonreactive [facility] Hepatitis C Antibody Nonreactive Nonreactive [facility] Comment:Antibodies to HCV no t detected; does not exclude early acuteHCV infection. Hepatitis B Surface Ag Negative Negative [facility] 11/11/2023 10:3 9 AM EST 11/11/2023 10:39 AM EST us Generic External Data Provider LAB BLOOD ORDERAB LES Final Result Performing Organization Address City/State/[facility] Co de Phone Number [facility] [address] [place] [phone] * Colonoscopy (12/21/2020) Colonoscopy tubular adenoma with Dr. Rodríguez Historical Provider HEALTH MAINTENANCE Final Result from Last 3 Months or Most Recently Relevant to Health Maintenance Insurance [facility] ASSISTED OPTIONS (HMO D-SNP) CHENCHO ALLISON [id number] [facility] Advance Directives Documents on File Type Date Recorded Patient Hydraulic Elevator Constructor Expl anation Advance Directives and Living Will 04/06/2024 Health Care Proxy 04/06/24 Care Teams Mapping Supervisor Relationship Specialty Start Date End Date [place], MD Daisha [address] [place] [address] PCP - General Family Medicine 11/01/18 Alissa Santillan MD [address] [place] [address] Rheumatology 11/09/24 Sharon Guardado [address] 3rd [place] [address] Cardiology 11/13/24 Cedric Lujan MD [address] [place] [address] Orthopaedic Surgery 11/23/24 Rory Angeles MD [address] [place] [address] Pain Medicine 02/06/25 Jairon Crawford OD [facility] [address] [place], [place] [address] Optometry 03/07/25 Laura Velarde MD Rheumatology 03/28/25
--- OUTSIDE RECORDS SUMMARY | 2025-07-04 09:40 | XMS_ITS | Encounter Summary ---
Author Organization [employer] Address [address] [facility] 7t [place] [address] Care Team Providers Care Industrial Hygiene Technician Name Role Phone Daisha Crane MD Primary Care Provider +1- [phone] Lisa Liao PharmD Unavailable Alissa Santillan MD Unavailable Sharon Guardado Unavailable Cedric Lujan MD Unavailable Rory Angeles MD Unavailable Jairon Crawford OD Unavailable Encounter Details Date Type Department Care Team (Late st Contact Info) Description 12/16/2022 Orders Only [facility] MED & PEDS [address] [place], [place] [phone] Jenn Polk LPN Social History Tobacco Use [...] Description 07/20/2025 9:00 AM EDT Clinical Support [facility] MEDICINE [address] [place] [address] Loyda Banda, RN [address] [place] [address] documented as of this encounter Visit Diagnoses Not on filedocumented in this encounter Additional Health Concerns Assessment Noted Time PHQ-9 Depression Total Score: 0 11/23/19 10:39 AM EST documented as of this encounter Care Teams Industrial Hygiene Technician Relationship Specialty Start Date End Date Daisha Crane MD [address] [place] [address] PCP - General Family Medicine 11/01/18 Lisa Liao PharmD [address] [place] [address] Pharmacist Internal Medicine 04/06/23 02/02/25 Alissa Santillan MD [address] [place] [address] Rheumatology 11/09/24 Sharon Guardado [address] 3rd [place] [address] Cardiology 11/13/24 Cedric Lujan MD [address] [place] [address] Orthopaedic Surgery 11/23/24 Rory Angeles MD [address] [place] [address] Pain Medicine 02/06/25 Jairon Crawford OD [facility] [address] [place] [address] Optometry 03/07/25 Laura Velarde MD Rheumatology 03/28/25 documented as of this encounter
--- OUTSIDE RECORDS SUMMARY | 2025-07-04 09:40 | XMS_ITS | Encounter Summary ---
Author Organization [employer] Address [address] [facility] 7t [place] [address] Care Team Providers Care Buttonhole Marker Name Role Phone Daisha Crane MD Primary Care Provider +1- [phone] Alissa Santillan MD Unavailable Sharon Guardado Unavailable Cedric Lujan MD Unavailable Rory Angeles MD Unavailable Jairon Crawford OD Unavailable Reason for Visit * Reason Comments Med Refill Encounter Details Date Type Department Care Team (Late st Contact Info) Description 05/15/2025 Refill [facility] MED & PEDS [address] [place], [place] [phone] Daisha Crane MD [address] [place], [place] [phone] Pain Social History Tobacco Use Types Packs/Day [...] Clinical Support [facility] MEDICINE [address] [place] [phone] Loyda Banda RN [address] [place] [address] documented as of this encounter Goals Goal [...] documented as of this encounter Care Teams Buttonhole Marker Relationship Specialty Start Date End Date Daisha Crane MD [address] [place] [address] PCP - General Family Medicine 11/01/18 Alissa Santillan MD [address] [place] [address] Rheumatology 11/09/24 Sharon Guardado [address] 3[address] [place] [address] Cardiology 11/13/24 Cedric Lujan MD [address] [place] [address] Orthopaedic Surgery 11/23/24 Rory Angeles MD [address] [place] [address] Pain Medicine 02/06/25 Jairon Crawford OD [facility] [address] [place] [address] Optometry 03/07/25 Laura Velarde MD Rheumatology 03/28/25 documented as of this encounter
--- OUTSIDE RECORDS SUMMARY | 2025-07-04 09:40 | XMS_ITS | Encounter Summary ---
Author Organization [employer] Address [address] [facility] 7t [place] [address] Care Team Providers Care Care Transitions Nurse Name Role Phone Daisha Crane MD Primary Care Provider +1- [phone] Lisa Liao PharmD Unavailable Alissa Santillan MD Unavailable Sharon Guardado Unavailable Cedric Lujan MD Unavailable Rory Angeles MD Unavailable Jairon Crawford OD Unavailable Reason for Visit * Reason Onset Date Comments Med Refill 11/24/2023 Encounter Details Date Type Department Care Team (Late st Contact Info) Description 11/24/2023 Telephone [facility] MEDICINE [address] [place], [place] [phone] Daisha Crane MD [address] [place], [place] [phone] Med Refill Social History Tobacco Use Types [...] release tablet To be sent to: [facility] - [place], [place] - [address] [place] [address] documented in this encounter Plan of Treatment Upcoming Encounters Date Type Department Care Team ([facility] st Contact Info) Description 07/20/2025 9:00 AM EDT Clinical Support [facility] MEDICINE [address] [place] [address] Loyda Banda, SO [address] [place] [address] documented as of this encounter Goals Goal [...] as of this encounter Care Teams Care Transitions Nurse Relationship Specialty Start Date End Date Daisha Crane MD [address] [place] [address] PCP - General Family Medicine 11/01/18 Lisa Liao, GenevaD [address] [place] [address] Pharmacist Internal Medicine 04/06/23 02/02/25 Alissa Santillan MD [address] [place] [address] Rheumatology 11/09/24 Sharon Guardado [address] 3rd [place] [address] Cardiology 11/13/24 Cedric Lujan MD [address] [place] [address] Orthopaedic Surgery 11/23/24 Rory Angeles MD [address] [place] [address] Pain Medicine 02/06/25 Jairon Crawford OD [facility] [address] [place] [address] Optometry 03/07/25 Laura Velarde MD Rheumatology 03/28/25 documented as of this encounter
--- OUTSIDE RECORDS SUMMARY | 2025-07-04 09:40 | XMS_ITS | Encounter Summary ---
Author Organization [employer] Address [address] [facility] 7t [place] [address] Care Team Providers Care Motorcycle Deliverer Name Role Phone Daisha Crane MD Primary Care Provider +- [phone] Lisa Liao PharmD Unavailable Alissa Santillan MD Unavailable Sharon Guardado Unavailable Cedric Lujan MD Unavailable Rory Angeles MD Unavailable Jairon Crawford OD Unavailable Encounter Details Date Type Department Care Team (Late st Contact Info) Description 11/18/2023 Telephone [facility] MEDICINE [address] [place], [place] [phone] Daisha Craen MD [address] [place], [place] [phone] Social History Tobacco Use Types Packs/Day Years [...] Description 07/20/2025 9:00 AM EDT Clinical Support [facility] MEDICINE [address] [place] [address] Loyda Banda RN [address] [place] [address] documented as of this encounter Goals Goal [...] documented as of this encounter Care Teams Motorcycle Deliverer Relationship Specialty Start Date End Date Daisha Crane MD [address] [place] [address] PCP - General Family Medicine 11/01/18 Lisa Liao, PharmD [address] [place] [address] Pharmacist Internal Medicine 04/06/23 02/02/25 Alissa Santillan MD [address] [place] [address] Rheumatology 11/09/24 Sharon Guardado [address] 3rd [place] [address] Cardiology 11/13/24 Cedric Lujan MD [address] [place] [address] Orthopaedic Surgery 11/23/24 Rory Angeles MD [address] [place] [address] Pain Medicine 02/06/25 Jairon Crawford OD [facility] [address] [place] [address] Optometry 03/07/25 Laura Velarde MD Rheumatology 03/28/25 documented as of this encounter
--- OUTSIDE RECORDS SUMMARY | 2025-07-04 09:40 | XMS_ITS | Encounter Summary ---
Author Organization [employer] Address [address] [facility] 7t [place] [address] Care Team Providers Care Conveyor Line Battery Charger Name Role Phone Daisha Crane MD Primary Care Provider + [phone] Lisa Liao PharmD Unavailable Alissa Santillan MD Unavailable Sharon Guardado Unavailable Cedric Lujan MD Unavailable Rory Angeles MD Unavailable Jairon Crawford OD Unavailable Encounter Details Date Type Department Care Team (Late st Contact Info) Description 03/05/2023 Orders Only [facility] MEDICINE [address] [place] [phone] Radha Johnson LPN Social History Tobacco Use [...] Description 07/20/2025 9:00 AM EDT Clinical Support [facility] MEDICINE [address] [place] [phone] Loyda Banda, RN [address] [place] [address] documented as of this encounter Visit Diagnoses Not on filedocumented in this encounter Additional Health Concerns Assessment Noted Time PHQ-9 Depression Total Score: 0 11/23/19 10:39 AM EST documented as of this encounter Care Teams Conveyor Line Battery Charger Relationship Specialty Start Date End Date Daisha Crane MD [address] [place] [address] PCP - General Family Medicine 11/01/18 Lisa Liao, GenevaD [address] [place] [address] Pharmacist Internal Medicine 04/06/23 02/02/25 Alissa Santillan MD [address] [place] [address] Rheumatology 11/09/24 Sharon Guardado [address] 3rd [place] [address] Cardiology 11/13/24 Cedric Lujan MD [address] [place] [address] Orthopaedic Surgery 11/23/24 Rory Angeles MD [address] [place] [address] Pain Medicine 02/06/25 Jairon Crawford OD [facility] [address] [place] [address] Optometry 03/07/25 Laura Velarde MD Rheumatology 03/28/25 documented as of this encounter
--- OUTSIDE RECORDS SUMMARY | 2025-07-04 09:40 | XMS_ITS | Encounter Summary ---
Author Organization [employer] Address 75 [facility] 7t [place] [address] Care Team Providers Care Paint Roller Covermaker Name Role Phone Daisha Crane MD Primary Care Provider +1- [phone] Lisa Liao PharmD Unavailable Alissa Santillan MD Unavailable Sharon Guardado Unavailable Cedric Lujan MD Unavailable Rory Angeles MD Unavailable Jairon Crawford OD Unavailable Encounter Details Date Type Department Care Team (Late st Contact Info) Description 10/28/2022 Telephone [facility] MEDICINE [address] [place] [address] [phone] Daisha Crane MD 230 [place], [place] [phone] Social History Tobacco Use Types Packs/Day Years [...] Description 07/20/2025 9:00 AM EDT Clinical Support [facility] MEDICINE [address] [place] [address] [phone] Loyda Banda, RN 505 [place] [address] documented as of this encounter Visit Diagnoses Not on filedocumented in this encounter Care Teams Paint Roller Covermaker Relationship Specialty Start Date End Date Daisha Crane MD 230 [place] [address] PCP - General Family Medicine 11/01/18 Lisa Liao, GenevaD 230 [place] [address] Pharmacist Internal Medicine 04/06/23 02/02/25 Alissa Santillan MD [address] [place] [address] Rheumatology 11/09/24 Sharon Guardado [address] 3rd [place] [address] Cardiology 11/13/24 Cedric Lujan MD [address] [place] [address] Orthopaedic Surgery 11/23/24 Rory Angeles MD [address] [place] [address] Pain Medicine 02/06/25 Jairon Crawford OD [facility] [address] [place] [address] Optometry 03/07/25 Laura Velarde MD Rheumatology 03/28/25 documented as of this encounter
--- OUTSIDE RECORDS SUMMARY | 2025-07-04 09:40 | XMS_ITS | Encounter Summary ---
Author Organization [employer] Address [address] [place] [address] 7t [place] [address] Care Team Providers Care Crayon Molding Machine Operator Name Role Phone Daisha Crane MD Primary Care Provider +1- [phone] Lisa Liao PharmD Unavailable Alissa Santillan MD Unavailable Sharon Guardado Unavailable Cedric Lujan MD Unavailable Rory Angeles MD Unavailable Jairon Crawford OD Unavailable Reason for Visit * Reason Onset Date Comments Med Refill 06/07/2023 Encounter Details Date Type Department Care Team (Late st Contact Info) Description 06/07/2023 Telephone [facility] MEDICINE 230 [place], [place] [phone] Hiram Palma MD 230 [place], [place] [phone] Med Refill Social History Tobacco Use Types [...] MG immediate release tablet Please sent to [facility] - [place], [place] - [address] [place] [address] documented in this encounter Plan of Treatment Upcoming Encounters Date Type Department Care Team (Late st Contact Info) Description 07/20/2025 9:00 AM EDT Clinical Support [facility] MEDICINE 230 [place] [address] Loyda Banda RN 505 [place] [address] documented as of this encounter Goals Goal [...] documented as of this encounter Care Teams Crayon Molding Machine Operator Relationship Specialty Start Date End Date Daisha Crane MD 230 [place] [address] PCP - General Family Medicine 11/01/18 Lisa Liao, PharmD 230 [place] [address] Pharmacist Internal Medicine 04/06/23 02/02/25 Alissa Santillan MD [address] [facility] [place] [address] Rheumatology 11/09/24 Sharon Guardado [address] 3rd [place] [address] Cardiology 11/13/24 Cedric Lujan MD [address] [place] [address] Orthopaedic Surgery 11/23/24 Rory Angeles MD [address] [place] [address] Pain Medicine 02/06/25 Jairon Crawford OD [facility] [address] [place] [address] Optometry 03/07/25 Laura Velarde MD Rheumatology 03/28/25 documented as of this encounter
--- OUTSIDE RECORDS SUMMARY | 2025-07-04 09:40 | XMS_ITS | Encounter Summary ---
Author Organization [employer] Address 75 [facility] 7t [place] [address] Care Team Providers Care Probate Lawyer Name Role Phone Daisha Crane MD Primary Care Provider + [phone] Lisa Liao PharmD Unavailable [phone] Alissa Santillan MD Unavailable Sharon Guardado Unavailable Cedric Lujan MD Unavailable Rory Angeles MD Unavailable Jairon Crawford OD Unavailable Encounter Details Date Type Department Care Team (Latest Contact Info) Description 03/10/2019 Abstract [facility] CONVERSIONS Dental, Provider, DDS Social History Tobacco [...] 9:00 AM EDT Clinical Support [facility] MEDICINE 230 [place], [place] [phone] Loyda Banda RN 505 [place], [place] [phone] documented as of this encounter Visit Diagnoses Not on filedocumented in this encounter Care Teams Probate Lawyer Relationship Specialty Start Date End Date Daisha Crane MD 230 [place] [address] PCP - General Family Medicine 11/01/18 Lisa Liao, Nidia 230 [place] [address] Pharmacist Internal Medicine 04/06/23 02/02/25 Alissa Santillan MD [address] [place] [address] Rheumatology 11/09/24 Sharon Guardado [address] 3rd [place] [address] Cardiology 11/13/24 Cedric Lujan MD [address] [place] [address] Orthopaedic Surgery 11/23/24 Rory Angeles MD [address] [place] [address] Pain Medicine 02/06/25 Jairon Crawford OD [facility] [address] [place] [address] Optometry 03/07/25 Laura Velarde MD Rheumatology 03/28/25 documented as of this encounter
--- OUTSIDE RECORDS SUMMARY | 2025-07-04 09:40 | XMS_ITS | Encounter Summary ---
Author Organization [employer] Address 75 [facility] 7t [place] [address] Care Team Providers Care It Manager Name Role Phone Daisha Crane MD Primary Care Provider +1- [phone] Lisa Liao PharmD Unavailable Alissa Santillan MD Unavailable Sharon Guardado Unavailable Cedric Lujan MD Unavailable Rory Angeles MD Unavailable Jairon Crawford OD Unavailable Reason for Visit * Reason Comments Med Refill Encounter Details Date Type Department Care Team (Late st Contact Info) Description 11/21/[address] [facility]EDS [address] [place], [place] [phone] Cara Whitfield MD 230 [place], [place] [phone] Pain Social History Tobacco Use Types Packs/Day [...] Description 07/20/2025 9:00 AM EDT Clinical [address] [facility] MEDICINE 230 [place] [address] Loyda Banda RN 505 [place] [address] documented as of this encounter Goals Goal [...] as of this encounter Care Teams It Manager Relationship Specialty Start Date End Date Daisha Crane MD 230 [place] [address] PCP - General Family Medicine 11/01/18 Lisa Liao, Nidia 230 [place] [address] Pharmacist Internal Medicine 04/06/23 02/02/25 Alissa Santillan MD [address] [place] [address] Rheumatology 11/09/24 Sharon Guardado [address] 3rd [place] [address] Cardiology 11/13/24 Cedric Lujan MD [address] [place] [address] Orthopaedic Surgery 11/23/24 Rory Angeles MD [address] [place] [address] Pain Medicine 02/06/25 Jairon Crawford OD [facility] [address] [place] [address] Optometry 03/07/25 Laura Velarde MD Rheumatology 03/28/25 documented as of this encounter
--- OUTSIDE RECORDS SUMMARY | 2025-07-04 09:40 | XMS_ITS | Encounter Summary ---
Author Organization [employer] Address 75 [facility] 7t [place] [address] Care Team Providers Care Residential Nurse Name Role Phone Daisha Crane MD Primary Care Provider +1- [phone] Lisa Liao PharmD Unavailable Alissa Santillan MD Unavailable Sharon Guardado Unavailable Cedric Lujan MD Unavailable Rory Angeles MD Unavailable Jairon Crawford OD Unavailable Reason for Visit * Reason Comments Med Refill Encounter Details Date Type Department Care Team (Late st Contact Info) Description 08/31/2023 Refill [facility] MEDICINE 230 [place], [place] [phone] Key Gregory MD 230 [place], [place] [phone] Tinea versicolor Social History Tobacco Use Types [...] [facility] 230 [place] [address] Loyda Banda RN 505 [place] [address] documented as of this encounter Goals Goal [...] documented as of this encounter Care Teams Residential Nurse Relationship Specialty Start Date End Date Daisha Crane MD 230 [place] [address] PCP - General Family Medicine 11/01/18 Lisa Liao, Nidia 230 [place] [address] Pharmacist Internal Medicine 04/06/23 02/02/25 Alissa Santillan MD [address] [place] [address] Rheumatology 11/09/24 Sharon Guardado [address] 3rd [place] [address] Cardiology 11/13/24 Cedric Lujan MD [address] [place] [address] Orthopaedic Surgery 11/23/24 Rory Angeles MD [address] [place] [address] Pain Medicine 02/06/25 Jairon Crawford OD [facility] [address] [place] [address] Optometry 03/07/25 Laura Velarde MD Rheumatology 03/28/25 documented as of this encounter
--- OUTSIDE RECORDS SUMMARY | 2025-07-04 09:40 | XMS_ITS | Encounter Summary ---
Author Organization [employer] Address 75 [facility] 7t [place] [address] Care Team Providers Care Soliciting Freight Agent Name Role Phone Daisha Crane MD Primary Care Provider +1- [phone] Lisa Liao PharmD Unavailable Alissa Santillan MD Unavailable Sharon Guardado Unavailable Cedric Lujan MD Unavailable Rory Angelse MD Unavailable Jairon Crawford OD Unavailable Reason for Visit * Reason Onset Date Comments Med Refill 06/05/2024 Encounter Details Date Type Department Care Team (Late st Contact Info) Description 06/05/2024 Telephone [facility] MEDICINE 230 [place], [place] [phone] Daisha Crane MD 230 [place], [place] [phone] Med Refill Social History Tobacco Use Types [...] immediate release tablet To be sent to: [facility] - [place], [place] - [address] [place] [address] documented in this encounter Plan of Treatment Upcoming Encounters Date Type Department Care Team (Late st Contact Info) Description 07/20/2025 9:00 AM EDT Clinical Support [facility] MEDICINE 230 [place] [address] Loyda Banda RN 505 [place], [place] [phone] documented as of this encounter Goals Goal [...] documented as of this encounter Care Teams Soliciting Freight Agent Relationship Specialty Start Date End Date Daisha Crane MD 230 [place] [address] PCP - General Family Medicine 11/01/18 Lisa Liao, PharmD [address] [place] [address] Pharmacist Internal Medicine 04/06/23 02/02/25 Alissa Santillan MD [address] [place] [address] Rheumatology 11/09/24 Sharon Guardado [address] 3rd [place] [address] Cardiology 11/13/24 Cedric Lujan MD [address] [place] [address] Orthopaedic Surgery 11/23/24 Rory Angeles MD [address] [place] [address] Pain Medicine 02/06/25 Jairon Crawford OD [facility] [address] [place] [address] Optometry 03/07/25 Laura Velarde MD Rheumatology 03/28/25 documented as of this encounter
--- OUTSIDE RECORDS SUMMARY | 2025-07-04 09:40 | XMS_ITS | Encounter Summary ---
Author Organization [employer] Address [address] [place] [address] 7t [place] [address] Care Team Providers Care Barge Loader Name Role Phone Daisha Crane MD Primary Care Provider +1- [phone] Lisa Liao PharmD Unavailable Alissa Santillan MD Unavailable Sharon Guardado Unavailable Cedric Lujan MD Unavailable Rory Angeles MD Unavailable Jairon Crawford OD Unavailable Reason for Visit * Reason Onset Date Comments Med Refill 03/15/2023 Encounter Details Date Type Department Care Team (Late st Contact Info) Description 03/15/2023 Telephone [facility] MEDICINE 230 [place], [place] [phone] Daisha Crane MD 230 [place], [place] [phone] Med Refill Social History Tobacco Use Types [...] Description 07/20/2025 9:00 AM EDT Clinical Support [facility] MEDICINE 230 [place] [address] Loyda Banda RN 505 [place] [address] documented as of this encounter Visit Diagnoses Not on filedocumented in this encounter Additional Health Concerns Assessment Noted Time PHQ-9 Depression Total Score: 0 11/23/19 10:39 AM EST documented as of this encounter Care Teams Barge Loader Relationship Specialty Start Date End Date Daisha Crane MD 230 [place] [address] PCP - General Family Medicine 11/01/18 Lisa Liao, GenevaD 230 [place] [address] Pharmacist Internal Medicine 04/06/23 02/02/25 Alissa Santillan MD [address] [place] [address] Rheumatology 11/09/24 Sharon Guardado [address] 3rd [place] [address] Cardiology 11/13/24 Cedric Lujan MD [address] [place] [address] Orthopaedic Surgery 11/23/24 Rory Angeles MD [address] [place] [address] Pain Medicine 02/06/25 Jairon Crawford OD [facility] [address] [place] [address] Optometry 03/07/25 Laura Velarde MD Rheumatology 03/28/25 documented as of this encounter
--- OUTSIDE RECORDS SUMMARY | 2025-07-04 09:40 | XMS_ITS | Encounter Summary ---
Author Organization [employer] Address [address] [place] [address] 7t [place] [address] Care Team Providers Care Cmo & President Name Role Phone Daisha Crane MD Primary Care Provider +1- [phone] Lisa Liao PharmD Unavailable [phone] Alissa Santillan MD Unavailable Sharon Guardado Unavailable Cedric Lujan MD Unavailable Rory Angeles MD Unavailable Jairon Crawford OD Unavailable Encounter Details Date Type Department Care Team (Late st Contact Info) Description 06/01/2023 Abstract [facility] MEDICINE 230 [place], [place] [phone] Daisha Crane MD 230 [place], [place] [phone] Social History Tobacco Use Types Packs/Day Years [...] Clinical Support [facility] MEDICINE 230 [place] [address] Loyda Banda RN [address] [place] [address] documented as of this encounter Goals Goal [...] documented as of this encounter Care Teams Cmo & President Relationship Specialty Start Date End Date Daisha Crane MD 230 [place] [address] PCP - General Family Medicine 11/01/18 Lisa Liao, PharmD 230 [place] [address] Pharmacist Internal Medicine 04/06/23 02/02/25 Alissa Santillan MD [address] [place] [address] Rheumatology 11/09/24 Sharon Guardado [address] 3rd [place] [address] Cardiology 11/13/24 Cedric Lujan MD [address] [place] [address] Orthopaedic Surgery 11/23/24 Rory Angeles MD [address] [place] [address] Pain Medicine 02/06/25 Jairon Crawford, [facility] [address] [place] [address] Optometry 03/07/25 Laura Velarde MD Rheumatology 03/28/25 documented as of this encounter
--- OUTSIDE RECORDS SUMMARY | 2025-07-04 09:40 | XMS_ITS | Encounter Summary ---
Author Organization [employer] Address 75 [facility] 7t [place] [address] Care Team Providers Care Gardener Name Role Phone Daisha Crane MD Primary Care Provider +1- [phone] Lisa Liao PharmD Unavailable [phone] Alissa Santillan MD Unavailable Sharon Guardado Unavailable Cedric Lujan MD Unavailable Rory Angeles MD Unavailable Jairon Crawford OD Unavailable Reason for Visit * Reason Comments Med Refill Encounter Details Date Type Department Care Team (Late st Contact Info) Description 09/03/2023 Refill [facility] MEDICINE 230 [place], [place] [phone] Key Gregory MD 230 [place], [place] [phone] Tinea versicolor Social History Tobacco Use Types Packs/Day Years Used Date Smoking Tobacco: Every Day Cigarettes Passive Smoke Exposure: Current Smokeless Tobacco: Never Depression Answer Date Recorded Patient Health Questionnaire-9 Score 0 11/23/2022 Housing Stability Answer Date Recorded What is your housing situation today? I have iflippo sharma 08/17/[address] you [...] Description 07/20/2025 9:00 AM EDT Clinical Support [facility] MEDICINE 230 [place] [address] Loyda Banda RN 505 [place] [address] documented as of this encounter Goals Goal [...] documented as of this encounter Care Teams Gardener Relationship Specialty Start Date End Date Daisha Crane MD 230 [place] [address] PCP - General Family Medicine 11/01/18 Lisa Liao, Nidia 230 [place] [address] Pharmacist Internal Medicine 04/06/23 02/02/25 Alissa Santillan MD [address] [place] [address] Rheumatology 11/09/24 Sharon Guardado [address] 3rd [place] [address] Cardiology 11/13/24 Cedric Lujan MD [address] [place] [address] Orthopaedic Surgery 11/23/24 Rory Angeles MD [address] [place] [address] Pain Medicine 02/06/25 Jairon Crawford OD [facility] [address] [place] [address] Optometry 03/07/25 Laura Velarde MD Rheumatology 03/28/25 documented as of this encounter
--- OUTSIDE RECORDS SUMMARY | 2025-07-04 09:40 | XMS_ITS | Encounter Summary ---
Author Organization [employer] Address 75 [facility] 7t [place] [address] Care Team Providers Care Mapping Engineer Name Role Phone Daisha Crane MD Primary Care Provider +1- [phone] Lisa Liao PharmD Unavailable Alissa Santillan MD Unavailable Sahron Guardado Unavailable Cedric Lujan MD Unavailable Rory Angeles MD Unavailable Jairon Crawford OD Unavailable Encounter Details Date Type Department Care Team (Late st Contact Info) Description 10/30/2024 Telephone [facility] [address] [place], [place] [phone] Daisha Crane MD 230 [place], [place] [phone] Social History Tobacco Use Types Packs/Day Years [...] the past 12 months, has t he Property Partner, gas, oil or water Galenea threatened to shut off services in your [...] Description 07/20/2025 9:00 AM EDT Clinical Support [facility] MEDICINE 230 [place] [address] Loyda Banda RN 505 [place] [address] documented as of this encounter Goals Goal [...] documented as of this encounter Care Teams Mapping Engineer Relationship Specialty Start Date End Date Daisha Crane MD 230 [place] [address] PCP - General Family Medicine 11/01/18 Lisa Liao, Nidia 230 [place] [address] Pharmacist Internal Medicine 04/06/23 02/02/25 Alissa Santillan MD [address] [place] [address] Rheumatology 11/09/24 Sharon Guardado [address] 3rd [place] [address] Cardiology 11/13/24 Cedric Lujan MD [address] [place] [address] Orthopaedic Surgery 11/23/24 Rory Angeles MD [address] [place] [address] Pain Medicine 02/06/25 Jairon Crawford OD [facility] [address] [place] [address] Optometry 03/07/25 Laura Velarde MD Rheumatology 03/28/25 documented as of this encounter
--- OUTSIDE RECORDS SUMMARY | 2025-07-04 09:40 | XMS_ITS | Encounter Summary ---
Author Organization [employer] Address 75 [facility] 7t [place] [address] Care Team Providers Care Race Board Attendant Name Role Phone Daisha Crane MD Primary Care Provider +1- [phone] Lisa Liao PharmD Unavailable Alissa Santillan MD Unavailable Sharon Guardado Unavailable Cedric Lujan MD Unavailable Rory Angeles MD Unavailable Jairon Crawford OD Unavailable Encounter Details Date Type Department Care Team (Late st Contact Info) Description 12/08/2022 Abstract [facility] MEDICINE 230 [place], [place] [phone] Daisha Crane MD 230 [place], [place] [phone] Social History Tobacco Use Types Packs/Day Years [...] Description 07/20/2025 9:00 AM EDT Clinical Support [facility] MEDICINE 230 [place] [address] Loyda Banda, RN 505 [place] [address] documented as of this encounter Procedures Procedure [...] documented as of this encounter Care Teams Race Board Attendant Relationship Specialty Start Date End Date Daisha Crane MD 230 [place] [address] PCP - General Family Medicine 11/01/18 Lisa Liao PharmD 230 [place] [address] Pharmacist Internal Medicine 04/06/23 02/02/25 Alissa Santillan MD [address] [place] [address] Rheumatology 11/09/24 Sharon Guardado [address] 3rd [place] [address] Cardiology 11/13/24 Cedric Lujan MD [address] [place] [address] Orthopaedic Surgery 11/23/24 Rory Angeles MD [address] [place] [address] Pain Medicine 02/06/25 Jairon Crawford OD [facility] [address] [place] [address] Optometry 03/07/25 Laura Velarde MD Rheumatology 03/28/25 documented as of this encounter
--- OUTSIDE RECORDS SUMMARY | 2025-07-04 09:40 | XMS_ITS | Encounter Summary ---
Author Organization [employer] Address 75 [facility] 7t [place] [address] Care Team Providers Care Sanitor Name Role Phone Daisha Crane MD Primary Care Provider +1- [phone] Alissa Santillan MD Unavailable Sharon Guardado Unavailable Cedric Lujan MD Unavailable Rory Angeles MD Unavailable Jairon Crawford OD Unavailable Reason for Visit * Reason Onset Date Comments Med Refill 03/23/2025 Encounter Details Date Type Department Care Team (Late st Contact Info) Description 03/23/[address] [facility] MEDICINE 230 [place], [place] [phone] Daisha Crane MD 230 [place], [place] [phone] Med Refill Social History Tobacco Use Types [...] immediate release tablet To be sent to: [facility] - [place], [place] - [address] [facility] documented in this encounter Plan of Treatment Upcoming Encounters Date Type Department Care Team (Late st Contact Info) Description 07/20/2025 9:00 AM EDT Clinical Support [facility] MEDICINE 230 [place] [address] Loyda Banda, SO 505 [place] [address] documented as of this encounter Goals Goal [...] documented as of this encounter Care Teams Sanitor Relationship Specialty Start Date End Date Daisha Crane MD [address] [place] [address] PCP - General Family Medicine 11/01/18 Alissa Santillan MD [address] [place] [address] Rheumatology 11/09/24 Sharon Guardado [address] 3rd [place] [address] Cardiology 11/13/24 Cedric Lujan MD [address] [place] [address] Orthopaedic Surgery 11/23/24 Rory Angeles MD [address] [place] [address] Pain Medicine 02/06/25 Jairon Crawford OD [facility] [address] [place] [address] Optometry 03/07/25 Laura Velarde MD Rheumatology 03/28/25 documented as of this encounter
--- OUTSIDE RECORDS SUMMARY | 2025-07-04 09:40 | XMS_ITS | Encounter Summary ---
Author Organization [employer] Address [address] [facility] 7t [place] [address] Care Team Providers Care Coffee Shop Manager Name Role Phone Daisha Crane MD Primary Care Provider + [phone] Lisa Liao PharmD Unavailable Alissa Santillan MD Unavailable Sharon Guardado Unavailable Cedric Lujan MD Unavailable Rory Angeles MD Unavailable Jairon Crawford OD Unavailable Encounter Details Date Type Department Care Team (Late st Contact Info) Description 11/19/2022 Orders Only [facility] [address] [place] [address] [phone] Radha Johnson LPN Social History Tobacco Use [...] Description 07/20/2025 9:00 AM EDT Clinical Support [facility] [address] [place] [address] Loyda Banda, RN 505 [place] [address] documented as of this encounter Visit Diagnoses Not on filedocumented in this encounter Care Teams Coffee Shop Manager Relationship Specialty Start Date End Date Daisha Crane MD 230 [place] [address] PCP - General Family Medicine 11/01/18 Lisa Liao, PharmD 230 [place] [address] Pharmacist Internal Medicine 04/06/23 02/02/25 Alissa Santillan MD [address] [place] [address] Rheumatology 11/09/24 Sharon Guardado [address] 3rd [place] [address] Cardiology 11/13/24 Cedric Lujan MD [address] [place] [address] Orthopaedic Surgery 11/23/24 Rory Angeles MD [address] [place] [address] Pain Medicine 02/06/25 Jairon Crawford OD [facility] [address] [place] [address] Optometry 03/07/25 Laura Velarde MD Rheumatology 03/28/25 documented as of this encounter
--- OUTSIDE RECORDS SUMMARY | 2025-07-04 09:40 | XMS_ITS | Encounter Summary ---
Author Organization [employer] Address [address] [facility] 7t [place] [address] Care Team Providers Care Typing Office Worker Name Role Phone Daisha Crane MD Primary Care Provider + [phone] Lisa Liao PharmD Unavailable Alissa Santillan MD Unavailable Sharon Guardado Unavailable Cedric Lujan MD Unavailable Rory Angeles MD Unavailable Jairon Crawford OD Unavailable Encounter Details Date Type Department Care Team (Late st Contact Info) Description 10/22/2022 Orders Only [facility] 230 [place], [place] [phone] Radha Johnson LPN Social History Tobacco Use [...] 9:00 AM EDT Clinical Support [facility] 230 [place], [place] [phone] Loyda Banda RN 505 [place], [place] [phone] documented as of this encounter Visit Diagnoses Not on filedocumented in this encounter Care Teams Typing Office Worker Relationship Specialty Start Date End Date Daisha Crane MD 230 [place] [address] PCP - General Family Medicine 11/01/18 Lisa Liao, GenevaD 230 [place] [address] Pharmacist Internal Medicine 04/06/23 02/02/25 Alissa Santillan MD [address] [place] [address] Rheumatology 11/09/24 Sharon Guardado [address] 3rd [place] [address] Cardiology 11/13/24 Cedric Lujan MD [address] [place] [address] Orthopaedic Surgery 11/23/24 Rory Angeles MD [address] [place] [address] Pain Medicine 02/06/25 Jairon Crawford OD [facility] [address] [place] [address] Optometry 03/07/25 Laura Velarde MD Rheumatology 03/28/25 documented as of this encounter
--- OUTSIDE RECORDS SUMMARY | 2025-07-04 09:40 | XMS_ITS | Encounter Summary ---
Author Organization [email or web address] Address [address] [place] [address] 7t [place] [address] Care Team Providers Care Leadership Coach Name Role Phone Daisha Crane MD Primary Care Provider +1- [phone] Lisa Liao PharmD Unavailable Alissa Santillan MD Unavailable Sharon Guardado Unavailable Cedric Lujan MD Unavailable Rory Angeles MD Unavailable Jairon Crawford OD Unavailable Reason for Visit * Reason Comments Med Refill Encounter Details Date Type Department Care Team (Late st Contact Info) Description 07/21/2023 Refill [facility] 230 [place], [place] [phone] Daisha Crane MD 230 [place], [place] [phone] Pulmonary emphysema, unspecified emphysema type (CMS/HCC) (Primary [...] 9:00 AM EDT Clinical Support [facility] 230 [facility] [place] [address] Loyda Banda RN 505 [place] [address] documented as of this encounter Goals Goal [...] documented as of this encounter Care Teams Leadership Coach Relationship Specialty Start Date End Date Daisha Crane MD 230 [place] [address] PCP - General Family Medicine 11/01/18 Lisa Liao, PharmD 230 [place] [address] Pharmacist Internal Medicine 04/06/23 02/02/25 Alissa Santillan MD [address] [place] [address] Rheumatology 11/09/24 Sharon Guardado [address] 3rd [place] [address] Cardiology 11/13/24 Cedric Lujan MD [address] [place] [address] Orthopaedic Surgery 11/23/24 Rory Angeles MD [address] [place] [address] Pain Medicine 02/06/25 Jairon Crawford OD [facility] [address] [place] [address] Optometry 03/07/25 Laura Velarde MD Rheumatology 03/28/25 documented as of this encounter
--- OUTSIDE RECORDS SUMMARY | 2025-07-04 09:40 | XMS_ITS | Encounter Summary ---
Author Organization [employer] Address [address] [facility] 7t [place] [address] Care Team Providers Care Credit Card Specialist Name Role Phone Daisha Crane MD Primary Care Provider +1- [phone] Lisa Liao PharmD Unavailable Alissa Santillan MD Unavailable Sharon Guardado Unavailable Cedric Lujan MD Unavailable Rory Angeles MD Unavailable Jairon Crawford OD Unavailable Reason for Visit * Reason Onset Date Comments Med Refill 07/04/2024 Encounter Details Date Type Department Care Team (Late st Contact Info) Description 07/04/2024 Telephone [facility] 230 [place], [place] [phone] Daisha Crane MD 230 [place], [place] [phone] Med Refill Social History Tobacco Use Types [...] immediate release tablet To be sent to: [facility] - [place], [place] - [address] [place] [address] documented in this encounter Plan of Treatment Upcoming Encounters Date Type Department Care Team (Late st Contact Info) Description 07/20/2025 9:00 AM EDT Clinical Support [facility] 230 [place] [address] Loyda Banda RN 505 [place], [place] [phone] documented as of this encounter Goals Goal [...] documented as of this encounter Care Teams Credit Card Specialist Relationship Specialty Start Date End Date Daisha Crane MD 230 [place] [address] PCP - General Family Medicine 11/01/18 Lisa Liao, PharmD [address] [place] [address] Pharmacist Internal Medicine 04/06/23 02/02/25 Alissa Santillan MD [address] [place] [address] Rheumatology 11/09/24 Sharon Guardado [address] 3rd [place] [address] Cardiology 11/13/24 Cedric Lujan MD [address] [place] [address] Orthopaedic Surgery 11/23/24 Rory Angeles MD [address] [place] [address] Pain Medicine 02/06/25 Jairon Crawford OD [facility] [address] [place] [address] Optometry 03/07/25 Laura Velarde MD Rheumatology 03/28/25 documented as of this encounter
--- OUTSIDE RECORDS SUMMARY | 2025-07-04 09:40 | XMS_ITS | Encounter Summary ---
Author Organization [employer] Address [address] [place] [address] 7t [place] [address] Care Team Providers Care Ergonomics Technician Name Role Phone Daisha Crane MD Primary Care Provider +1- [phone] Lisa Liao PharmD Unavailable [phone] Alissa Santillan MD Unavailable Sharon Guardado Unavailable Cedric Lujan MD Unavailable Rory Angeles MD Unavailable Jairon Crawford OD Unavailable Reason for Visit * Reason Onset Date Comments Med Refill 07/07/2023 Encounter Details Date Type Department Care Team (Late st Contact Info) Description 07/07/2023 Telephone [facility] 230 [place], [place] [phone] Daisha Crane MD 230 [place], [place] [phone] Med Refill Social History Tobacco Use Types [...] MG immediate release tablet Please sent to [facility] - [place], [place] - [address] [place] [address] documented in this encounter Plan of Treatment Upcoming Encounters Date Type Department Care Team (Late st Contact Info) Description 07/20/2025 9:00 AM EDT Clinical Support [facility] 230 [place] [address] Loyda Banda RN 505 [place] [address] documented as of this encounter Goals Goal [...] documented as of this encounter Care Teams Ergonomics Technician Relationship Specialty Start Date End Date Daisha Crane MD [address] [place] [address] PCP - General Family Medicine 11/01/18 Lisa Liao PharmD [address] [place] [address] Pharmacist Internal Medicine 04/06/23 02/02/25 Alissa Santill[address] [place] [address] Rheumatology 11/09/24 Sharon Guardado [address] [place] [address] Cardiology 11/13/24 Cedric Lujan MD [address] [place] [address] Orthopaedic Surgery 11/23/24 Rory Angeles MD [address] [place] [address] Pain Medicine 02/06/25 Jairon Crawford OD [facility] [address] [place] [address] Optometry 03/07/25 Laura Velarde MD Rheumatology 03/28/25 documented as of this encounter
--- OUTSIDE RECORDS SUMMARY | 2025-07-04 09:40 | XMS_ITS | Encounter Summary ---
Author Organization [employer] Address [address] [facility] 7t [place] [address] Care Team Providers Care Client Support Representative Name Role Phone Daisha Crane MD Primary Care Provider +1- [phone] Lisa Liao PharmD Unavailable Alissa Santillan MD Unavailable Sharon Guardado Unavailable Cedric Lujan MD Unavailable Rory Angeles MD Unavailable Jairon Crawford OD Unavailable Reason for Visit * Reason Comments Med Refill Encounter Details Date Type Department Care Team (Late st Contact Info) Description 02/06/2024 Refill [facility] 230 [place], [place] [phone] Lisa Liao, PharmD 230 [place], [place] [phone] Social History Tobacco Use Types Packs/Day Years [...] Description 07/20/2025 9:00 AM EDT Clinical Support [facility] [address] [place] [address] Loyda Banda RN 505 [place], [place] [phone] documented as of this encounter Goals Goal [...] documented as of this encounter Care Teams Client Support Representative Relationship Specialty Start Date End Date Daisha Crane MD 230 [place] [address] PCP - General Family Medicine 11/01/18 Lisa Liao, GenevaD 230 [place] [address] Pharmacist Internal Medicine 04/06/23 02/02/25 Alissa Santillan MD [address] [place] [address] Rheumatology 11/09/24 Sharon Guardado [address] 3rd [place] [address] Cardiology 11/13/24 Cedric Lujan MD [address] [place] [address] Orthopaedic Surgery 11/23/24 Rory Angeles MD [address] [place] [address] Pain Medicine 02/06/25 Jairon Crawford OD [facility] [address] [place] [address] Optometry 03/07/25 Laura Velarde MD Rheumatology 03/28/25 documented as of this encounter
--- OUTSIDE RECORDS SUMMARY | 2025-07-04 09:40 | XMS_ITS | Encounter Summary ---
Author Organization [employer] Address [address] [facility] 7t [place] [address] Care Team Providers Care Cost Engineer Name Role Phone Daisha Crane MD Primary Care Provider +1- [phone] Alissa Santillan MD Unavailable Sharon Guardado Unavailable Cedric Lujan MD Unavailable Rory Angeles MD Unavailable Jairon Crawford OD Unavailable Reason for Visit * Reason Onset Date Comments Med Refill 06/12/2025 Encounter Details Date Type Department Care Team (Late st Contact Info) Description 06/12/2025 Telephone [facility] 230 [place], [place] [phone] Daisha Crane MD 230 [place], [place] [phone] Med Refill Social History Tobacco Use Types [...] immediate release tablet To be sent to: [facility] - [place], [place] - [address] [facility] documented in this encounter Plan of Treatment Upcoming Encounters Date Type Department Care Team (Late st Contact Info) Description 07/20/2025 9:00 AM EDT Clinical Support [facility] 230 [place] [address] Loyda Banda, SO 505 [place] [address] documented as of this encounter Goals Goal [...] as of this encounter Care Teams Cost Engineer Relationship Specialty Start Date End Date Daisha Crane MD [address] [place] [address] PCP - General Family Medicine 11/01/18 Alissa Santillan MD [address] [place] [address] Rheumatology 11/09/24 Sharon Guardado [address] 3rd [place] [address] Cardiology 11/13/24 Cedric Lujan MD [address] [place] [address] Orthopaedic Surgery 11/23/24 Rory Angeles MD [address] [place] [address] Pain Medicine 02/06/25 Jairon Crawford OD [facility] [address] [place] [address] Optometry 03/07/25 Laura Velarde MD Rheumatology 03/28/25 documented as of this encounter
--- OUTSIDE RECORDS SUMMARY | 2025-07-04 09:40 | XMS_ITS | Encounter Summary ---
Author Organization [employer] Address [address] [facility] 7t [place] [address] Care Team Providers Care Assembly Line Machine Operator Name Role Phone Daisha Crane MD Primary Care Provider + [phone] Lisa Liao PharmD Unavailable Alissa Santillan MD Unavailable Sharon Guardado Unavailable Cedric Lujan MD Unavailable Rory Angeles MD Unavailable Jairon Crawford OD Unavailable Encounter Details Date Type Department Care Team (Late st Contact Info) Description 03/15/2023 Orders Only [facility] 505 [place], [place] [phone] Jenn Polk LPN Social History Tobacco Use [...] Description 07/20/2025 9:00 AM EDT Clinical Support [facility] 230 [place] [address] Loyda Banda, SO 505 [place] [address] documented as of this encounter Visit Diagnoses Not on filedocumented in this encounter Additional Health Concerns Assessment Noted Time PHQ-9 Depression Total Score: 0 11/23/19 10:39 AM EST documented as of this encounter Care Teams Assembly Line Machine Operator Relationship Specialty Start Date End Date Daisha Crane MD 230 [place] [address] PCP - General Family Medicine 11/01/18 Lisa Liao, GenevaD [address] [place] [address] Pharmacist Internal Medicine 04/06/23 02/02/25 Alissa Santillan MD [address] [place] [address] Rheumatology 11/09/24 Sharon Guardado [address] 3rd [place] [address] Cardiology 11/13/24 Cedric Lujan MD [address] [place] [address] Orthopaedic Surgery 11/23/24 Rory Angeles MD [address] [place] [address] Pain Medicine 02/06/25 Jairon Crawford OD [facility] [address] [place] [address] Optometry 03/07/25 Laura Velarde MD Rheumatology 03/28/25 documented as of this encounter
--- OUTSIDE RECORDS SUMMARY | 2025-07-04 09:40 | XMS_ITS | Encounter Summary ---
Author Organization [employer] Address [address] [facility] 7t [place] [address] Care Team Providers Care Abrasive Grader Helper Name Role Phone Daisha Crane MD Primary Care Provider +1- [phone] Lisa Liao PharmD Unavailable Alissa Santillan MD Unavailable Sharon Guardado Unavailable Cedric Lujan MD Unavailable Rory Angeles MD Unavailable Jairon Crawford OD Unavailable Reason for Visit * Reason Comments Med Refill Encounter Details Date Type Department Care Team (Late st Contact Info) Description 02/07/2024 Refill [facility] 230 [place], [place] [phone] Tanika Arenas ANP 230 [place], [place] [phone] Dyslipidemia Social History Tobacco Use Types Packs/Day [...] 9:00 AM EDT Clinical Support [facility] 230 [place] [address] Loyda Banda RN 505 [place] [address] documented as of this encounter Goals Goal [...] documented as of this encounter Care Teams Abrasive Grader Helper Relationship Specialty Start Date End Date Daisha Crane MD 230 [place] [address] PCP - General Family Medicine 11/01/18 Lisa Liao, PharmD 230 [place] [address] Pharmacist Internal Medicine 04/06/23 02/02/25 Alissa Santillan MD [address] [place] [address] Rheumatology 11/09/24 Sharon Guardado [address] 3rd [place] [address] Cardiology 11/13/24 Cedric Lujan MD [address] [place] [address] Orthopaedic Surgery 11/23/24 Rory Angeles MD [address] [place] [address] Pain Medicine 02/06/25 Jairon Crawford OD [facility] [address] [place] [address] Optometry 03/07/25 Laura Velarde MD Rheumatology 03/28/25 documented as of this encounter
--- OUTSIDE RECORDS SUMMARY | 2025-07-04 09:40 | XMS_ITS | Encounter Summary ---
Author Organization [employer] Address [address] [facility] 7t [place] [address] Care Team Providers Care Semiconductor Testing Group Leader Name Role Phone Daisha Crane MD Primary Care Provider +1- [phone] Lisa Liao PharmD Unavailable Alissa Santillan MD Unavailable Sharon Guardado Unavailable Cedric Lujan MD Unavailable Rory Angeles MD Unavailable Jairon Crawford OD Unavailable Encounter Details Date Type Department Care Team (Late st Contact Info) Description 10/14/2022 [facility] Only [facility] 230 [place], [place] [phone] Daisha Crane MD 230 [place], [place] [phone] Social History Tobacco Use Types Packs/Day Years [...] Description 07/20/2025 9:00 AM EDT Clinical Support [facility] 230 [place], [place] [phone] Loyda Banda, RN 505 [place] [address] documented as of this encounter Visit Diagnoses Not on filedocumented in this encounter Care Teams Semiconductor Testing Group Leader Relationship Specialty Start Date End Date Daisha Crane MD 230 [place] [address] PCP - General Family Medicine 11/01/18 Lisa Liao, GenevaD 230 [place] [address] Pharmacist Internal Medicine 04/06/23 02/02/25 Alissa Santillan MD [address] [place] [address] Rheumatology 11/09/24 Sharon Guardado [address] 3rd [place] [address] Cardiology 11/13/24 Cedric Lujan MD [address] [place] [address] Orthopaedic Surgery 11/23/24 Rory Angeles MD [address] [place] [address] Pain Medicine 02/06/25 Jairon Crawford OD [facility] [address] [place] [address] Optometry 03/07/25 Laura Velarde MD Rheumatology 03/28/25 documented as of this encounter
[2025-07-04 10:17] LABS: Hematocrit 32.0 % (42.0-52.0); Hemoglobin 9.4 g/dl (14.0-18.0); Imm Gran Abs Auto 0.04 X10*3/uL (0.00-0.03); Imm Gran Pct Auto 0.4 % (0.0-0.4); Lymphocytes Absolute Auto 2.7 X10*3/uL (1.2-4.9); Mean Corpuscular HGB Conc 29.4 g/dl (31.0-36.0); Mean Corpuscular Hemoglobin 23.9 pg (27.0-33.0); Mean Corpuscular Volume 81.2 fL (80.0-98.0); NRBC Abs Auto 0.000 X10*3/uL (0.0-0.012); NRBC Pct Auto 0.0 /100WBC (0.0-0.2); Platelet Count 219 X10*3/uL (160-400); Red Blood Count 3.94 X10*6/uL (4.60-5.80); White Blood Count 9.5 X10*3/uL (4.8-10.8)
[2025-07-04 10:54] LABS: Albumin Level 4.5 g/dL (3.5-5.0); Alkaline Phosphatase 54 U/L (39-117); Anion Gap 14 (12-20); Aspartate Amino Transferase 38 U/L (5-37); Blood Urea Nitrogen 12 mg/dL (9-16); Calcium 9.6 mg/dL (8.4-10.2); Carbon Dioxide 24 mmol/L (22-29); Chloride 104 mmol/L (96-108); Cholesterol 97 mg/dL (<200); Estimated Glomerular Filt Rate > 60; HDL Cholesterol 35 mg/dL (>40); Potassium 3.6 mmol/L (3.3-5.1); Sodium 138 mmol/L (135-145); Total Protein 6.6 g/dL (6.5-8.0); Triglycerides 130 mg/dL (<150)
[2025-07-04 11:08] LABS: Alanine Aminotransferase 25 U/L (0-40)
== END 2025-07-04 09:01 | disposition home or self-care (01) ==
LOC: HO.LAB 09:00
PROVIDERS: PCP Family Medicine; Visit Provider Student in an Organized Health Care Education/Training Program
DX: Z13.6 Encounter for screening for cardiovascular disorders (principal); M05.9 Rheumatoid arthritis with rheumatoid factor, unspecified
CPT/HCPCS: 36415; 80053; 80061; 85025; 85652; 86140

== ENCOUNTER 2025-07-06 10:13 | Outpatient (AMB) | payer OTHER, SELFPAY ==
--- NOTE | 2025-07-06 10:24 | MHC.OFFVIS ---
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 Denies any untoward effects with the procedure. Patient denies any improvement in his pain, function or mobility since placement of the Sprint. He has been in contact with the representatives and is managing the device without difficulties. He did not bring the hand-held stimulation control to the appointment therefore I am unable to determine of stimulation he is using. Patient reports that he is able to feel stimulation but still suffering with significant right shoulder pain into the right upper arm. 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 Osteoporosis Seropositive rheumatoid arthritis History of prostate cancer Arthritis GERD (gastroesophageal reflux disease) COPD (chronic obstructive pulmonary disease) Asthma HTN (hypertension) Surgical History History of open reduction and internal fixation (ORIF) procedure Hx of umbilical hernia repair Hx of eye surgery History of back surgery History of colonoscopy History of removal of cyst History of tonsillectomy and adenoidectomy History of arthroscopy of left shoulder History of prostate surgery Family History Mother History of breast cancer, Onset Age: 87 Father History of asthma Social History Alcohol intake: never Patient Tobacco Use Status: Current everyday Tobacco user Tobacco use type: Cigarette Cigarettes Per Day: 7 Years Smoked: 60 +/- e-Cigarette/Vaping Use: Never Used Current occupational status: retired Current occupation: Rt handed Gender identity: Male Review of Systems Const Details: - Musculoskeletal: Reports severe right shoulder pain; Denies any other musculoskeletal symptoms Physical Exam Exam Exam: General: awake, alert, oriented. Answers questions appropriately. Fully engaged in examination. Skin: warm, dry, intact HEENT: Normocephalic. Hearing intact. Cardiac: External chest normal in appearance. Respiratory: No cough, audible wheezing or stridor. Abdomen: without gross distension. MS: No obvious swelling or deformities. Neurological: Oriented to person, place, time and situation. Thought process intact. No gait abnormalities appreciated. Psychiatric: Appropriate mood and affect. Good judgment and insight. Sprint dressing change: Existing dressing removed, Area cleansed with chloraprep. Site dry, clean without redness, swelling, warmth, bruising or drainage. Lead secure device removed. Area cleansed again with chloraprep, once dry skin barrier protectant wipe applied. New lead secure device applied, tegaderm applied. Patient tolerated procedure well. Vital Signs: Last Vital Signs Pulse 60 07/06/25 10:25 Resp 18 07/06/25 10:25 BP 137/62 07/06/25 10:25 Pulse Ox 97 07/06/25 10:25 Oxygen Delivery Method Room Air 07/06/25 10:25 Results Reviewed Results Reviewed: 07/24/24 MR/MR shoulder RT wo con IMPRESSION: 1. Completely torn and retracted supraspinatus tendon with moderate muscle atrophy and mild fatty infiltration. 2. Complete or near-complete tear of the subscapularis tendon with moderate muscle atrophy and mild fatty infiltration. 3. Completely torn and retracted biceps tendon. 4. Superior subluxation of the humeral head with chronic remodeling of the undersurface of the acromion. 5. Mild acromioclavicular and glenohumeral osteoarthritis. Assessment & Plan Assessment & Plan (1) Chronic right shoulder pain: Code(s): M25.511 - Pain in right shoulder; G89.29 - Other chronic pain Category: Medical (2) Rotator cuff tear arthropathy of right shoulder: Code(s): M75.101 - Unspecified rotator cuff tear or rupture of right shoulder, not specified as traumatic; M12.811 - Other specific arthropathies, not elsewhere classified, right shoulder Category: Medical Plan Patient presented to the office today follow up, one-week status post right interscalene sprint PNS placement. Lengthy discussion with patient and his daughter today regarding the expectations, advised that he may not feel improvement in his pain for at least 4 weeks after the procedure. He was advised to continue using and titrate his stimulation as tolerated. Continue to maintain close contact with the Sprint sales representative printing paper Follow up with our office in 1 week for dressing change. They are not comfortable changing it at home and given the location of the placement would prefer that the dressing changes are done in the office to avoid displacement of lead. All questions and concerns were answered, patient and daughter agree with the plan. Follow up in 1 week, sooner if needed Coding Level of Care Code Est Pt Level 3 (24171) Complex EM visit Add On G2211 Diagnoses Chronic right shoulder pain M25.511; G89.29 Rotator cuff tear arthropathy of right shoulder M75.101; M12.811
[2025-07-06 10:25] VITALS: BP 137/62; PULSE 60; RESP 18; O2SAT 97
--- OUTSIDE RECORDS SUMMARY | 2025-07-06 11:09 | XMS_ITS | Encounter Summary ---
Author Organization [employer] Address [address] [place] 7t [place] [address] Care Team Providers Care Metal Dresser Name Role Phone Daisha Crane MD Primary Care Provider [phone]- [phone] Lisa Liao PharmD Unavailable Alissa Santillan MD Unavailable Sharon Guardado Unavailable Cedric Lujan MD Unavailable Rory Angeles MD Unavailable Jairon Crawford OD Unavailable Reason for Visit * Reason Comments Med Refill Encounter Details Date Type Department Care Team (Late st Contact Info) Description 11/21/2024 Refill [facility] [address] [place], [place] [phone] Cara Whitfield MD [address] [place], [place] [phone] Pain Social History Tobacco Use Types Packs/Day [...] Description 07/20/2025 9:00 AM EDT Clinical Support [facility] MEDICINE [address] [place] [address] Loyda Banda RN [address] [place] [address] documented as of this encounter Goals Goal [...] as of this encounter Care Teams Metal Dresser Relationship Specialty Start Date End Date Daisha Crane MD [address] [place] [address] PCP - General Family Medicine 11/01/18 Lisa Liao, Nidia [address] [place] [address] Pharmacist Internal Medicine 04/06/23 02/02/25 Alissa Santillan MD [address] [place] [address] Rheumatology 11/09/24 Sharon Guardado [address] 3rd [place] [address] Cardiology 11/13/24 Cedric Lujan MD [address] [place] [address] Orthopaedic Surgery 11/23/24 Rory Angeles MD [address] [place] [address] Pain Medicine 02/06/25 Jairon Crawford OD [facility] [address] [place] [address] Optometry 03/07/25 Laura Velarde MD Rheumatology 03/28/25 documented as of this encounter
--- OUTSIDE RECORDS SUMMARY | 2025-07-06 11:09 | XMS_ITS | Encounter Summary ---
Author Organization [employer] Address [address] [facility] 7t [place] [address] Care Team Providers Care Residential Advisor Name Role Phone Daisha Crane MD Primary Care Provider [phone]- [phone] Lisa Liao PharmD Unavailable [phone] Alissa Santillan MD Unavailable Sharon Guardado Unavailable Cedric Lujan MD Unavailable Rory Angeles MD Unavailable Jairon Crawford OD Unavailable Reason for Visit * Reason Onset Date Comments Med Refill 07/04/2024 Encounter Details Date Type Department Care Team (Late st Contact Info) Description 07/04/2024 Telephone [facility] MEDICINE [address] [place], [place] [phone] Daisha Crane MD [address] [place], [place] [phone] Med Refill Social History Tobacco Use Types [...] release tablet To be sent to: [facility] - [place], [place] - [address] [place] [address] documented in this encounter Plan of Treatment Upcoming Encounters Date Type Department Care Team (Late st Contact Info) Description 07/20/2025 9:00 AM EDT Clinical Support [facility] MEDICINE [address] [place] [address] Loyda Banda RN [address] [place], [place] [phone] documented as of this encounter Goals Goal [...] as of this encounter Care Teams Residential Advisor Relationship Specialty Start Date End Date Daisha Crane MD [address] [place] [address] PCP - General Family Medicine 11/01/18 Lisa Liao, PharmD [address] [place] [address] Pharmacist Internal Medicine 04/06/23 02/02/25 Alissa Santillan MD [address] [place] [address] Rheumatology 11/09/24 Sharon Guarddao [address] 3rd [place] [address] Cardiology 11/13/24 Cedric Lujan MD [address] [place] [address] Orthopaedic Surgery 11/23/24 Rory Angeles MD [address] [place] [address] Pain Medicine 02/06/25 Jairon Crawford OD [facility] [address] [place] [address] Optometry 03/07/25 Laura Velarde MD Rheumatology 03/28/25 documented as of this encounter
--- OUTSIDE RECORDS SUMMARY | 2025-07-06 11:09 | XMS_ITS | Clinical Summary ---
Author Organization [employer] Address [address] [facility] 7t [place] [address] Care Team Providers Care Gear Inspector Name Role Phone Daisha Crane MD Primary Care Provider [phone]- [phone] Alissa Santillan MD Unavailable Sharon Guardado Unavailable [...] 2 diabetes mellitus without complication, unspecified whether [facility] insulin use (CMS/HCC) TEST BLOOD SUGAR TWICE [...] from the original. Enrolled in [facility] DM and HTN clinic with Lisa Liao, GenevaD, [facility] Elevated Work Platform Operator: Denise, member services number [phone] Electrical Maintenance Technician Agency: [facility], [facility] Problem Noted Date [...] with visit. He would like referral to [facility] , new referral placed 09/04/24 -Saw Podiatry 11/07/24 Assessment & Plan (09/04/2024 4:56 PM EST): -referral placed to Podiatry 04/06/[address] Daniels, he was not happy with with visit. He would like referral to [facility] , new referral placed 09/04/24 Assessment & Plan (04/06/2024 9:55 AM EDT): -referral placed to Podiatry 04/06/2024 Other specified health status 06/03/2023 Overview (03/07/2025): -next physical exam due after 09/04/2025 -eye care facilitated by [facility] -dental home is [facility] [place]. -healthcare Proxy completed and filed 04/06/2024. Assessment & Plan (09/04/2024 5:02 PM EST): -next physical exam due after 09/04/2025 -eye care facilitated by [facility] -dental home is [facility] [place]. -healthcare Proxy completed and filed 04/06/2024. Assessment & Plan (04/06/2024 9:51 AM EDT): -next physical exam due after 06/04/2024. -eye care facilitated by [facility]. -dental home is [facility] [place]. -healthcare Proxy completed and filed 04/06/2024. Assessment & Plan (06/04/2023 9:45 AM EDT): -next physical exam due after 06/04/2024. -eye care facilitated by [facility]. -dental home is [facility] [place]. 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 Seen 01/14/25. -Hx of dilated [...] PM EST): Followed by Sharon AREVALOC for [facility] Cardiovascular Specialty. Seen 05/30/24 -Hx of dilated [...] Overview (03/07/2025): -Followed by Sharon AREVALOC for [facility] Special[facility]. -Known hx of Bicuspid aortic valve without stenosis or regurgitation. Followed by echocardiograms. Last echo 08/25/2023 shows mild calcification of the aortic valve, no regurgitation or stenosis. Repeat echo ordered 2023. -Sharon AREVALOC for [facility] Cardiovascular Specialty 11/2024 Prior notes indicate a [...] Overview (05/31/2024): Followed by Sharon LEWIS for [facility] Cardi[facility] 05/30/24. History of leg edema [...] September 2024. GERD (gastroesophageal reflux disease) 3 long term care administrator systemic steroid user 04/06/2023 Osteoporosis 04/06/2023 Overview [...] as pharmacomtherapy, [facility] smoking cessation group, and [facility] pharmacy smoking cessation clinic Discussed USPSTF recommends [...] as pharmacomtherapy, [facility] smoking cessation group, and [facility] pharmacy smoking cessation clinic Discussed USPSTF recommends [...] as pharmacomtherapy, [facility] smoking cessation group, and [facility] pharmacy smoking cessation clinic Discussed USPSTF recommends [...] rheumatoid factor 11/20/2022 Overview (03/28/2025): Seen by retail assistant Dr. Minnie Santillan 05/23/24 -On Actemra 162 [...] Plan (09/04/2024 5:00 PM EST): Seen by retail assistant Dr. Minnie Santillan 05/23/24 -On Actemra 162 [...] Plan (04/06/2024 9:51 AM EDT): Followed by retail assistant. Per note 11/18/23:On Actemra 162 mg every [...] the right ECU swelling does not improve [facility] Specialist would like to restart hydroxychloroquine, will refer patient to Ophthalmology for a baseline hydroxychloroquine screening. If patient is cleared. Will start hydroxychloroquine Continue Rasuvo 25 mg weekly + Actemra every other week. Chest CTA 10/2022 showed no evidence of ILD T-spot and Hepatitis panel -ve 11/2023,. Labs before next visit in 3 months via rheumatology Seen by retail assistant Dr. Minnie Santillan 02/23/24 -On Actemra 162 [...] Plan (06/04/2023 9:39 AM EDT): -Followed by retail assistant Dr. Fisher. -Currently on prednisone 2 mg daily -med rec to make sure we have correct meds on file -Continue Oxycodone 5mg BID as needed for pain -Did not tolerate Methotrexate, then Leflunomide 20mg daily but then d/c due to rash Assessment & Plan (11/20/2022 10:23 AM EST): -Followed by retail assistant Dr. Fisher. -Currently on prednisone 2 mg [...] dilatation measuring 4cm and ascending aorta 4.3cm -Eligibility Examiner Nanette Leonard seen in April 2022. - Now followed by Sharon Guardado NP-C for [facility] Cardiovascular Specialty -History of leg edema with higher dose amlodipine use. He did have improvement in his swelling when his amlodipine was reduced to 5 mg daily and then discontinued. -echo does show a normal EF, impaired relaxation. He is on hydrochlorothiazide. He is on prednisone which can contribute to some mild edema. -given compression stockings 05/30/24 -Sharon Guardado NP-C for [facility] Cardiovascular Specialty 11/2024 Hx of dilated ascending [...] dilatation measuring 4cm and ascending aorta 4.3cm Eligibility Examiner Nanette Leonard seen in April 2022. Followed by Sharon LEWIS for [facility] Cardiovascular Specialty 05/30/24. History of leg edema [...] dilatation measuring 4cm and ascending aorta 4.3cm Eligibility Examiner Nanette Leonard seen in April 2022. Assessment [...] dilatation measuring 4cm and ascending aorta 4.3cm Eligibility Examiner Nanette Leonard seen in April 2022. Assessment [...] dilatation measuring 4cm and ascending aorta 4.3cm Eligibility Examiner Nanette Leonard seen in April 2022. Currently [...] agreeable with plan to be transported to [facility] via ambulance . Case discussed with provider at [facility] ER Cutaneous skin tags 05/18/2023 03/30/20 24 [...] Encounters Date Type Department Care Team Description 07/04/2025 Orders Only GENERIC EXTERNAL DATA DEPARTMENT Provider, Generic External Data 06/12/2025 Refill [facility] PEDS [address] [place] [address] Loyda Banda RN Pain 06/12/2025 Telephone [facility] [address] [place] [address] Daisha Crane MD Med Refill 05/15/2025 Refill [facility] [address] [place] [address] Daisha Crane MD Pain 05/15/2025 Refill [facility] [address] [place] [address] Loyda Banda RN Pain 05/14/2025 11:00 AM EDT Telemedicine [facility] [address] [place] [address] Loyda Banda RN long term care administrator (current) use of opiate analgesic 05/14/2025 Telephone [facility] [address] [place] [address] Loyda Banda RN 05/14/2025 Travel 05/09/2025 Refill [facility] [address] [place] [address] Daisha Crane MD Constipation, unspecified constipation type; Chronic obstructive pulmonary disease, unspecified COPD type (CMS/HCC); Primary insomnia; Simple chronic bronchitis (CMS/HCC) 04/17/2025 Refill [facility] [address] [place] [address] Daisha Crane MD Pain 04/16/2025 Refill [facility] [address] [place] [address] Daisha Crane MD Type 2 diabetes mellitus without complication, without long-term current use of insulin ([facility]); Vitamin D deficiency 04/16/2025 Refill [facility] [address] [place] [address] [facility] Vitamin D deficiency 04/10/2025 Refill [facility] [address] [place], [place] [phone] Daisha Crane MD Type 2 diabetes mellitus without complication, without long-term current use of insulin ([facility]) from Last 3 Months Immunizations Immunization Administration [...] Description 07/20/2025 9:00 AM EDT Clinical Support [facility] [address] [place] [address] Loyda Banda, RN [address] [place] [address] Health Maintenance Due Date Last Done Comments Eye Exam 05/13/2025 05/13/2023, 05/01, 05/13/2023, Additional history exists COVID-19 Vaccine ( season) 2025 09/04/2024, 06/04/2023, 05/18/2022, Additional history exists Influenza Vaccine (#1) 2025 , 08/17/2023, 09/28/2022, Additional history exists Alcohol/Substance Use Screening 09/04/2025 09/04/2024 Tobacco Screening 09/04/2025 09/04/2024 Diabetes: Hemoglobin A1C 09/07/2025 025, 09/04/2024, 04/06/2024, Additional history exists Diabetes: Urine Protein Screening 09/15/2025 09/15/2024, 06/17/2023 Depression Screening 03/07/2026 03/07/2025, 03/07/20 25 Diabetes: Foot Exam 03/07/2026 03/07/2025, 03/07/2025, 03/07/2025, Additional history exists SDOH Screening 03/07/2026 03/07/2025 Lipid Panel 07/04/2026 07/04/2025, 12/0 07/2024, 02/16/2024, Additional history exists DTaP/Tdap/Td Vaccines (3 - [...] Comments SED RATE BY MODIFIED WESTERGREN Routine 07/04/2025 9:18 AM EDT LIPID PANEL, STANDARD Routine 07/04/2025 9:18 AM EDT C-REACTIVE PROTEIN Routine 07/04/2025 9: 18 AM EDT COMPREHENSIVE METABOLIC PANEL Routine 07/04/2025 9:18 AM EDT CBC WITH AUTO DIFFERENTIAL Routine 07/04/2025 9:18 AM EDT POCT GLYCOSYLATED HEMOGLOBIN (HGB A1C) Routine 03/07/2025 10:40 AM EDT Type 2 diabetes mellitus with hyperglycemia, without long-term current use of insulin (CMS/HCC) ALBUMIN, RANDOM URINE W/CREATININE Routine 09/15/2024 8:03 AM EST Type 2 diabetes mellitus without complication, unspecified whether rodent exterminator insulin use (CMS/HCC) HEPATITIS PANEL, GENERAL Routine 11/11/2023 10:39 AM EST HM COLONOSCOPY Routine 12/21/2020 from Last 3 Months or Most Recently Relevant to Health Maintenance Results * (ABNORMAL) CBC auto differential (07/04/2025 9:18 AM EDT) White Blood Count 9.5 4.8 - 10.8 X10*3/uL [facility] Red Blood Count 3.94(L) 4.60 - 5.80 X10*6/uL [facility] Hemoglobin 9.4(L) 14.0 - 18.0 g/dl [facility] Hematocrit 32.0(L) 42.0 - 52.0 % [facility] Mean Corpuscular Volume 81.2 80.0 - 98.0 fL [facility] Mean Corpuscular Hemoglobin 23.9(L) 27.0 - 33.0 pg [facility] Mean Corpuscular HGB Conc 29.4(L) 31.0 - 36.0 g/dl [facility] Red Cell Distribution Width 20.6(H) 11.0 - 16.0 % [facility] Platelet Count 219 160 - 400 X10*3/uL [facility] Mean Platelet Volume 10.1 9.4 - 12.4 fL [facility] Neutrophils Percent Auto 55.5 45 - 73 % [facility] Imm Gran Pct Auto 0.4 0.0 - 0.4 % [facility] Lymphocytes Percent Auto 29.0 20 - 40 % [facility] Monocytes Percent Auto 12.8(H) 2 - 11 % [facility] Eosinophils Percent Auto 1.7 0 - 4 % [facility] Basophils Percent Auto 0.6 0 - 2 % [facility] NRBC Pct Auto 0.0 0.0 - 0.2 /100WBC [facility] Neutrophils Absolute Auto 5.2 2.0 - 8.3 x10*3/uL [facility] Imm Gran Abs Auto 0.04(H) 0.00 - 0.03 X10*3/uL [facility] Lymphocytes Absolute Auto 2.7 1.2 - 4.9 X10*3/uL [facility] Monocytes Absolute Auto 1.2 0.1 - 1.2 X10*3/uL [facility] Eosinophils Absolute Auto 0.2 0.0 - 0.4 X10*3/uL [facility] Basophils Absolute Auto 0.1 0.0 - 0.2 X10*3/uL [facility] NRBC Abs Auto 0.000 0.0 - 0.012 X10*3/uL [facility] 07/04/2025 9:18 AM EDT 07/04/2025 9:18 AM EDT Generic External Data Provider LAB BLOOD ORDERAB LES Final Result Performing Organization Address [facility]/ZIP Co de Phone Number [facility] [address] [place] [phone] * Sed Rate by Modified Samergren (07/04/2025 9:18 AM EDT) Erythrocyte Sedimentation Rate 2 0 - 15 MM/HR [facility] Comment:Patients with polycy themia and many hemoglobin abnormalitiesmay have depressed sed rates whereas patients with anemiamay have elevated sed rates. 07/04/2025 9:18 AM EDT 07/04/2025 9:18 AM EDT Generic External Data Provider LAB BLOOD ORDERAB LES Final Result Performing Organization Address [facility] Co de Phone Number [facility] [address] [place] [phone] * C-reactive Protein (07/04/2025 9:18 AM EDT) Pathologist [facility] C Reactive Protein <0.04 < or = 0.50 mg/dL [facility] 07/04/2025 9:18 AM EDT 07/04/2025 9:18 AM EDT Generic External Data Provider LAB BLOOD ORDERAB LES Final Result Performing Organization Address [facility]/ZIP Co de Phone Number [facility] [address] [place] [phone] * (ABNORMAL) Lipid Panel, Standard (07/04/2025 9:18 AM EDT) Triglycerides 130 <150 mg/dL [facility] Comment:Desirable Triglyceri de: less than 150 mg/dLBorderline High Triglyceride 150-199 mg/dLHigh Triglyceride: 200-499 mg/dLVery High Triglyceride: greater than or equal to 5OO mg/dL Cholesterol 97 <200 mg/dL [facility] Comment:Desirable Cholestero l: less than 200 mg/dLBorderline High Cholesterol: 200-239 mg/dLHigh Cholesterol: greater than 239 mg/dL LDL Cholesterol Calculated 36 <100 mg/dL [facility] Comment:Desirable LDL: less than 100 mg/dLNear Optimal/Above Optimal LDL: 110- 129 mg/dLBorderline High LDL: 130-159 mg/dLHigh LDL: 160-189 mg/dLVery High LDL: greater than or equal to 190 mg/dL HDL Cholesterol 35(L) >40 mg/dL [facility] Comment:Desirable HDL: great er than 40 mg/dL Note: This HDL assay may give artificially low results in patients with liver disease. 07/04/2025 9:18 AM EDT 07/04/2025 9:18 AM EDT us Generic External Data Provider LAB BLOOD ORDERAB LES Final Result [facility] [address] [place] [phone] * (ABNORMAL) Comprehensive Metabolic Panel (07/04/2025 9:18 AM EDT) Sodium 138 135 - 145 mmol/L [facility] Potassium 3.6 3.3 - 5.1 mmol/L [facility] Comment:Slight Hemolysis.Int erpret result with caution. Chloride 104 96 - 108 mmol/L [facility] Carbon Dioxide 24 22 - 29 mmol/L [facility] Anion Gap 14 12 - 20 [facility] Urea Nitrogen (BUN) 12 9 - 16 mg/dL [facility] Creatinine, Serum 0.74 0.5 - 1.4 mg/dL [facility] Estimated Glomerular Filt Rate >60 [facility] Comment:Chronic Kidney Disea se: Estimated GFR < 60 mL/min/[id number] Kidney Disease: Estimated GFR < 15 mL/min/1.73m2 Glucose 94 60 - 115 mg/dL [facility] Calcium 9.6 8.4 - 10.2 mg/dL [facility] Bilirubin, Total 0.8 0.0 - 1.0 mg/dL [facility] Aspartate Amino Transferase 38(H) 5 - 37 U/L [facility] Comment:Slight Hemolysis.Int erpret result with caution. Alanine Aminotransferase 25 0 - 40 U/L [facility] Total Protein 6.6 6.5 - 8.0 g/dL [facility] Albumin Level 4.5 3.5 - 5.0 g/dL [facility] Alkaline Phosphatase 54 39 - 117 U/L [facility] 07/04/2025 9:18 AM EDT 07/04/2025 9:18 AM EDT Generic External Data Provider LAB BLOOD ORDERAB LES Final Result Performing Organization Address City/State/[facility] Co de Phone Number [facility] [address] [place] [phone] * (ABNORMAL) POCT glycosylated hemoglobin (Hgb A1c) (03/07/2025 10:40 AM EDT) Hemoglobin A1C 6.4(A) 4.0 - 6.0 % QC Media Lot # [id number] Lot# Expiration Date Blood Capillary blood specimen / Unknown 03/07/2025 10:40 AM EDT Daisha Crane MD POINT OF CARE TEST ENTER/E DIT ORDERABLES Final Result * Albumin, Random Urine W/Creatinine (09/15/2024 8:03 AM EST) Creatinine, Urine 107.16 mg/dL [facility] Microalbumin Urine 20.0 mg/L [facility] Microalbum Creatinine Ratio Ur 18.6 <30 ug/mg cr [facility] Comment:Albumin/Creatinine R atio Reference Ranges: Normal: < 30 ug/mg creatinine Microalbuminuria: 30 - 300 ug/mg creatinineClinical Albuminuria: > 300 ug/mg creatinine Urine 09/15/2024 8:03 AM EST 09/15/2024 11:09 AM EST us Daisha Crane MD LAB URINE ORDERABLES Final Result [facility] [address] [place] [phone] * Hepatitis Panel, General (11/11/2023 10:39 AM EST) Hepatitis A IgM Nonreactive Nonreactive [facility] Comment:IgM antibodies to WAGONER V not detected; does not exclude earlyacute or recovered HAV infection. ~Hepatitis B Surface Antibody NONREACTIVE Nonreactive [facility] Comment:Nonreactive: < 8.00 mIU/mL Hepatitis B Core Antibody Nonreactive Nonreactive [facility] Hepatitis C Antibody Nonreactive Nonreactive [facility] Comment:Antibodies to HCV no t detected; does not exclude early acuteHCV infection. Hepatitis B Surface Ag Negative Negative [facility] 11/11/2023 10:3 9 AM EST 11/11/2023 10:39 AM EST us Generic External Data Provider LAB BLOOD ORDERAB LES Final Result Performing Organization Address City/[facility]/ZIP Co de Phone Number [facility] [address] [place] [phone] * Colonoscopy (12/21/2020) Colonoscopy tubular adenoma with Dr. Rodríguez Historical Provider HEALTH MAINTENANCE Final Result from Last 3 Months or Most Recently Relevant to Health Maintenance Insurance [facility] LONGTERM OPTIONS (HMO D-SNP) [facility] STANDARD Advance Directives Documents on File Type Date Recorded Patient Family Law Specialist Expl anation Advance Directives and Living Will 04/06/2024 Health Care Proxy 04/06/24 Care Teams Gear Inspector Relationship Specialty Start Date End Date [place], [place] Daisha [address] [place] [address] PCP - General Family Medicine 11/01/18 Alissa Santillan MD [address] [place] [address] Rheumatology 11/09/24 Sharon Guardado [address] [place] [address] Cardiology 11/13/24 Cedric Lujan MD [address] [place] [address] Orthopaedic Surgery 11/23/24 Rory Angeles MD [address] [place] [address] Pain Medicine 02/06/25 Jairon Crawford OD [facility] [address] [place] [address] Optometry 03/07/25 Laura Velarde MD Rheumatology 03/28/25
--- OUTSIDE RECORDS SUMMARY | 2025-07-06 11:09 | XMS_ITS | Encounter Summary ---
Author Organization [employer] Address [address] [place] [address] 7t [place] [address] Care Team Providers Care Nut Sheller Name Role Phone Daisha Crane MD Primary Care Provider +1- [phone] Lisa Liao PharmD Unavailable Alissa Santillan MD Unavailable Sharon Guardado Unavailable Cedric Lujan MD Unavailable Rory Angeles MD Unavailable Jairon Crawford OD Unavailable Reason for Visit * Reason Onset Date Comments Med Refill 07/07/2023 Encounter Details Date Type Department Care Team (Late st Contact Info) Description 07/07/2023 Telephone [facility] MEDICINE 230 [place], [place] [phone] Daisha Crane MD 230 [place], [place] [phone] Med Refill Social History Tobacco Use Types [...] MG immediate release tablet Please sent to [facility] - [place], [place] - [address] [place] [address] documented in this encounter Plan of Treatment Upcoming Encounters Date Type Department Care Team (Late st Contact Info) Description 07/20/2025 9:00 AM EDT Clinical Support [facility] MEDICINE 230 [place] [address] Loyda Banda RN 505 [place] [address] documented as of this encounter Goals Goal [...] documented as of this encounter Care Teams Nut Sheller Relationship Specialty Start Date End Date Daisha Crane MD [address] [place] [address] PCP - General Family Medicine 11/01/18 Lisa Liao PharmD [address] [place] [address] Pharmacist Internal Medicine 04/06/23 02/02/25 Alissa Santillan MD [address] [place] [address] Rheumatology 11/09/24 Sharon Guard[address]od [address] 3rd [place] [address] Cardiology 11/13/24 Cedric Lujan MD [address] [place] [address] Orthopaedic Surgery 11/23/24 Rory Angeles MD [address] [place] [address] Pain Medicine 02/06/25 Jairon Crawford OD [facility] [address] [place] [address] Optometry 03/07/25 Laura Velarde MD Rheumatology 03/28/25 documented as of this encounter
--- OUTSIDE RECORDS SUMMARY | 2025-07-06 11:09 | XMS_ITS | Encounter Summary ---
Author Organization [employer] Address [address] [facility] 7t [place] [address] Care Team Providers Care Hand Mixer Name Role Phone Daisha Crane MD Primary Care Provider +1- [phone] Lisa Liao PharmD Unavailable Alissa Santillan MD Unavailable Sharon Guardado Unavailable Cedric Lujan MD Unavailable Rory Angeles MD Unavailable Jairon Crawford OD Unavailable Reason for Visit * Reason Onset Date Comments Med Refill 06/05/2024 Encounter Details Date Type Department Care Team (Late st Contact Info) Description 06/05/2024 Telephone [facility] MEDICINE 230 [place], [place] [phone] Daisha Crane MD 230 [place], [place] [phone] Med Refill Social History Tobacco Use Types [...] immediate release tablet To be sent to: [facility] - [place], [place] - [address] [place] [address] documented in this encounter Plan of Treatment Upcoming Encounters Date Type Department Care Team (Late st Contact Info) Description 07/20/2025 9:00 AM EDT Clinical Support [facility] MEDICINE 230 [place] [address] Loyda Banda RN 505 [place], [place] [phone] documented as of this encounter Goals Goal [...] as of this encounter Care Teams Hand Mixer Relationship Specialty Start Date End Date Daisha Crane MD 230 [place] [address] PCP - General Family Medicine 11/01/18 Lisa Liao, PharmD [address] [place] [address] Pharmacist Internal Medicine 04/06/23 02/02/25 Alissa Santillan MD [address] [place] [address] Rheumatology 11/09/24 Sharon Guardado [address] 3rd [place] [address] Cardiology 11/13/24 Cedric Lujan MD [address] [place] [address] Orthopaedic Surgery 11/23/24 Rory Angeles MD [address] [place] [address] Pain Medicine 02/06/25 Jairon Crawford OD [facility] [address] [place] [address] Optometry 03/07/25 Laura Velarde MD Rheumatology 03/28/25 documented as of this encounter
--- OUTSIDE RECORDS SUMMARY | 2025-07-06 11:09 | XMS_ITS | Encounter Summary ---
Author Organization [employer] Address [address] [place] [address] 7t [place] [address] Care Team Providers Care Blue Line Operator Name Role Phone Daisha Crane MD Primary Care Provider +1- [phone] Lisa Liao PharmD Unavailable +[phone] Alissa Santillan MD Unavailable Sharon Guardado Unavailable Cedric Lujan MD Unavailable Rory Angeles MD Unavailable Jairon Crawford OD Unavailable Reason for Visit * Reason Comments Med Refill Encounter Details Date Type Department Care Team (Late st Contact Info) Description 07/21/2023 Refill [facility] MEDICINE 230 [place], [place] [phone] Daisha Crane MD 230 [place], [place] [phone] Pulmonary emphysema, unspecified emphysema type (CMS/HCC) (Primary [...] Description 07/20/2025 9:00 AM EDT Clinical Support [facility] MEDICINE 230 [facility] [place] [address] Loyda Banda RN 505 [place] [address] documented as of this encounter Goals Goal [...] documented as of this encounter Care Teams Blue Line Operator Relationship Specialty Start Date End Date Daisha Crane MD 230 [place] [address] PCP - General Family Medicine 11/01/18 Lisa Liao, PharmD 230 [place] [address] Pharmacist Internal Medicine 04/06/23 02/02/25 Alissa Santillan MD [address] [place] [address] Rheumatology 11/09/24 Sharon Guardado [address] 3rd [place] [address] Cardiology 11/13/24 Cedric Lujan MD [address] [place] [address] Orthopaedic Surgery 11/23/24 Rory Angeles MD [address] [place] [address] Pain Medicine 02/06/25 Jairon Crawford OD [facility] [address] [place] [address] Optometry 03/07/25 Laura Velarde MD Rheumatology 03/28/25 documented as of this encounter
--- OUTSIDE RECORDS SUMMARY | 2025-07-06 11:09 | XMS_ITS | Encounter Summary ---
Author Organization [employer] Address [address] [facility] 7t [place] [address] Care Team Providers Care Veneer Press Operator Name Role Phone Daisha Crane MD Primary Care Provider +1- [phone] Lisa Liao PharmD Unavailable [phone] Alissa Santillan MD Unavailable Sharon Guardado Unavailable Cedric Lujan MD Unavailable Rory Angeles MD Unavailable Jairon Crawford OD Unavailable Encounter Details Date Type Department Care Team (Late st Contact Info) Description 10/30/2024 Telephone [facility] [address] [place], [place] [phone] Daisha Crane MD 230 [place], [place] [phone] Social History Tobacco Use Types Packs/Day Years [...] the past 12 months, has t he [employer], gas, oil or water [employer] threatened to shut off services in your [...] Description 07/20/2025 9:00 AM EDT Clinical Support [facility] MEDICINE 230 [place] [address] Loyda Banda RN 505 [place] [address] documented as of this encounter Goals Goal [...] documented as of this encounter Care Teams Veneer Press Operator Relationship Specialty Start Date End Date Daisha Crane MD 230 [place] [address] PCP - General Family Medicine 11/01/18 Lisa Liao, Nidia 230 [place] [address] Pharmacist Internal Medicine 04/06/23 02/02/25 Alissa Santillan MD [address] [place] [address] Rheumatology 11/09/24 Sharon Guardado [address] 3rd [place] [address] Cardiology 11/13/24 Cedric Lujan MD [address] [place] [address] Orthopaedic Surgery 11/23/24 Rory Angeles MD [address] [place] [address] Pain Medicine 02/06/25 Jairon Crawford OD [facility] [address] [place] [address] Optometry 03/07/25 Laura Velarde MD Rheumatology 03/28/25 documented as of this encounter
--- OUTSIDE RECORDS SUMMARY | 2025-07-06 11:10 | XMS_ITS | Encounter Summary ---
Author Organization [employer] Address [address] [place] [address] 7t [place] [address] Care Team Providers Care Satellite Project Site Monitor Name Role Phone Daisha Crane MD Primary Care Provider +1- [phone] Lisa Liao PharmD Unavailable Alissa Santillan MD Unavailable Sharon Guardado Unavailable Cedric Lujan MD Unavailable Rory Angeles MD Unavailable Jairon Crawford OD Unavailable Reason for Visit * Reason Onset Date Comments Med Refill 03/15/2023 Encounter Details Date Type Department Care Team (Late st Contact Info) Description 03/15/2023 Telephone [facility] MEDICINE 230 [place], [place] [phone] Daisha Crane MD 230 [place], [place] [phone] Med Refill Social History Tobacco Use Types [...] 07/20/2025 9:00 AM EDT Clinical Support [facility] MEDICINE 230 [place] [address] Loyda Banda RN 505 [place] [address] documented as of this encounter Visit Diagnoses Not on filedocumented in this encounter Additional Health Concerns Assessment Noted Time PHQ-9 Depression Total Score: 0 11/23/19 10:39 AM EST documented as of this encounter Care Teams Satellite Project Site Monitor Relationship Specialty Start Date End Date Daisha Crane MD 230 [place] [address] PCP - General Family Medicine 11/01/18 Lisa Liao, GenevaD 230 [place] [address] Pharmacist Internal Medicine 04/06/23 02/02/25 Alissa Santillan MD [address] [place] [address] Rheumatology 11/09/24 Sharon Guardado [address] 3rd [place] [address] Cardiology 11/13/24 Cedric Lujan MD [address] [place] [address] Orthopaedic Surgery 11/23/24 Rory Angeles MD [address] [place] [address] Pain Medicine 02/06/25 Jairon Crawford OD [facility] [address] [place] [address] Optometry 03/07/25 Laura Velarde MD Rheumatology 03/28/25 documented as of this encounter
--- OUTSIDE RECORDS SUMMARY | 2025-07-06 11:10 | XMS_ITS | Encounter Summary ---
Author Organization [employer] Address [address] [facility] 7t [place] [address] Care Team Providers Care Insulation Cupola Operator Name Role Phone Daisha Crane MD Primary Care Provider +1- [phone] Lisa Liao PharmD Unavailable Alissa Santillan MD Unavailable Sharon Guardado Unavailable Cedric Lujan MD Unavailable Rory Angeles MD Unavailable Jairon Crawford OD Unavailable Encounter Details Date Type Department Care Team (Late st Contact Info) Description 10/14/2022 [facility] Only [place] 230 [place], [place] [phone] Daisha Crane MD 230 [place], [place] [phone] Social History Tobacco Use Types Packs/Day Years [...] Description 07/20/2025 9:00 AM EDT Clinical Support [facility] MEDICINE 230 [place], [place] [phone] Loyda Banda, RN 505 [place] [address] documented as of this encounter Visit Diagnoses Not on filedocumented in this encounter Care Teams Insulation Cupola Operator Relationship Specialty Start Date End Date Daisha Crane MD 230 [place] [address] PCP - General Family Medicine 11/01/18 Lisa Liao, GenevaD 230 [place] [address] Pharmacist Internal Medicine 04/06/23 02/02/25 Alissa Santillan MD [address] [place] [address] Rheumatology 11/09/24 Sharon Guardado [address] 3rd [place] [address] Cardiology 11/13/24 Cedric Lujan MD [address] [place] [address] Orthopaedic Surgery 11/23/24 Rory Angeles MD [address] [place] [address] Pain Medicine 02/06/25 Jairon Crawford OD [facility] [address] [place] [address] Optometry 03/07/25 Laura Velarde MD Rheumatology 03/28/25 documented as of this encounter
--- OUTSIDE RECORDS SUMMARY | 2025-07-06 11:10 | XMS_ITS | Encounter Summary ---
Author Organization [email or web address] Address [address] [facility] 7t [place] [address] Care Team Providers Care Patient Observer Name Role Phone Daisha Crane MD Primary Care Provider +1- [phone] Lisa Liao PharmD Unavailable [phone] Alissa Santillan MD Unavailable Sharon Guardado Unavailable Cedric Lujan MD Unavailable Rory Angeles MD Unavailable Jairon Crawford OD Unavailable Encounter Details Date Type Department Care Team (Late st Contact Info) Description 12/08/2022 Abstract [facility] MEDICINE 230 [place], [place] [phone] Daisha Crane MD 230 [place], [place] [phone] Social History Tobacco Use Types Packs/Day Years [...] 9:00 AM EDT Clinical Support [facility] MEDICINE 230 [place] [address] Loyda Banda, RN 505 [place] [address] documented as of this encounter Procedures Procedure [...] documented as of this encounter Care Teams Patient Observer Relationship Specialty Start Date End Date Daisha Crane MD 230 [place] [address] PCP - General Family Medicine 11/01/18 Lisa Liao PharmD 230 [place] [address] Pharmacist Internal Medicine 04/06/23 02/02/25 Alissa Santillan MD [address] [place] [address] Rheumatology 11/09/24 Sharon Guardado [address] 3rd [place] [address] Cardiology 11/13/24 Cedric Lujan MD [address] [place] [address] Orthopaedic Surgery 11/23/24 Rory Angeles MD [address] [place] [address] Pain Medicine 02/06/25 Jairon Crawford OD [facility] [address] [place] [address] Optometry 03/07/25 Laura Velarde MD Rheumatology 03/28/25 documented as of this encounter
--- OUTSIDE RECORDS SUMMARY | 2025-07-06 11:10 | XMS_ITS | Encounter Summary ---
Author Organization [employer] Address [address] [facility] 7t [place] [address] Care Team Providers Care Intelligence Support Officer Name Role Phone Daisha Crane MD Primary Care Provider + [phone] Lisa Liao PharmD Unavailable Alissa Santillan MD Unavailable Sharon Guardado Unavailable Cedric Lujan MD Unavailable Rory Angeles MD Unavailable Jairon Crawford OD Unavailable Encounter Details Date Type Department Care Team (Late st Contact Info) Description 10/22/2022 Orders Only [facility] 230 [place], [place] [phone] Radha Johnson LPN Social History Tobacco Use [...] [facility] MEDICINE 230 [place], [place] [phone] Loyda Banda RN 505 [place], [place] [phone] documented as of this encounter Visit Diagnoses Not on filedocumented in this encounter Care Teams Intelligence Support Officer Relationship Specialty Start Date End Date Daisha Crane MD 230 [place] [address] PCP - General Family Medicine 11/01/18 Lisa Liao, GenevaD 230 [place] [address] Pharmacist Internal Medicine 04/06/23 02/02/25 Alissa Santillan MD [address] [place] [address] Rheumatology 11/09/24 Sharon Guardado [address] 3rd [place] [address] Cardiology 11/13/24 Cedric Lujan MD [address] [place] [address] Orthopaedic Surgery 11/23/24 Rory Angeles MD [address] [place] [address] Pain Medicine 02/06/25 Jairon Crawford OD [facility] [address] [place] [address] Optometry 03/07/25 Laura Velarde MD Rheumatology 03/28/25 documented as of this encounter
--- OUTSIDE RECORDS SUMMARY | 2025-07-06 11:10 | XMS_ITS | Encounter Summary ---
Author Organization [employer] Address [address] [facility] 7t [place] [address] Care Team Providers Care Hr Payroll Coordinator Name Role Phone Daisha Crane MD Primary Care Provider +1- [phone] Lisa Liao PharmD Unavailable Alissa Santillan MD Unavailable Sharon Guardado Unavailable Cedric Lujan MD Unavailable oRry Angeles MD Unavailable Jairon Crawford OD Unavailable Reason for Visit * Reason Comments Med Refill Encounter Details Date Type Department Care Team (Late st Contact Info) Description 02/07/2024 Refill [facility] MEDICINE 230 [place], [place] [phone] Tanika Arenas ANP 230 [place], [place] [phone] Dyslipidemia Social History Tobacco Use Types Packs/Day [...] 07/20/2025 9:00 AM EDT Clinical Support [facility] MEDICINE 230 [place] [address] Loyda Banda RN 505 [place] [address] documented as of this encounter Goals Goal [...] documented as of this encounter Care Teams Hr Payroll Coordinator Relationship Specialty Start Date End Date Daisha Crane MD 230 [place] [address] PCP - General Family Medicine 11/01/18 Lisa Liao, PharmD 230 [place] [address] Pharmacist Internal Medicine 04/06/23 02/02/25 Alissa Santillan MD [address] [place] [address] Rheumatology 11/09/24 Sharon Guardado [address] 3rd [place] [address] Cardiology 11/13/24 Cedric Lujan MD [address] [place] [address] Orthopaedic Surgery 11/23/24 Rory Angeles MD [address] [place] [address] Pain Medicine 02/06/25 Jairon Crawford OD [facility] [address] [place] [address] Optometry 03/07/25 Laura Velarde MD Rheumatology 03/28/25 documented as of this encounter
--- OUTSIDE RECORDS SUMMARY | 2025-07-06 11:10 | XMS_ITS | Encounter Summary ---
Author Organization [employer] Address [address] [facility] 7t [place] [address] Care Team Providers Care Eyewear Manufacturing Supervisor Name Role Phone Daisha Crane MD Primary Care Provider +1- [phone] Lisa Liao PharmD Unavailable [phone] Alissa Santillan MD Unavailable Sharon Guardado Unavailable Cedric Lujan MD Unavailable Rory Angeles MD Unavailable Jairon Crawford OD Unavailable Reason for Visit * Reason Comments Med Refill Encounter Details Date Type Department Care Team (Late st Contact Info) Description 08/31/2023 Refill [facility] MEDICINE 230 [place], [place] [phone] Key Gregory MD 230 [place], [place] [phone] Tinea versicolor Social History Tobacco Use Types [...] Description 07/20/2025 9:00 AM EDT Clinical Support [facility] MEDICINE 230 [place] [address] Loyda Banda RN 505 [place] [address] documented as of this encounter Goals Goal [...] documented as of this encounter Care Teams Eyewear Manufacturing Supervisor Relationship Specialty Start Date End Date Daisha Crane MD 230 [place] [address] PCP - General Family Medicine 11/01/18 Lisa Liao, Nidia 230 [place] [address] Pharmacist Internal Medicine 04/06/23 02/02/25 Alissa Santillan MD [address] [place] [address] Rheumatology 11/09/24 Sharon Guardado [address] 3rd [place] [address] Cardiology 11/13/24 Cedric Lujan MD [address] [place] [address] Orthopaedic Surgery 11/23/24 Rory Angeles MD [address] [place] [address] Pain Medicine 02/06/25 Jairon Crawford OD [facility] [address] [place] [address] Optometry 03/07/25 Laura Velarde MD Rheumatology 03/28/25 documented as of this encounter
--- OUTSIDE RECORDS SUMMARY | 2025-07-06 11:10 | XMS_ITS | Encounter Summary ---
Author Organization [employer] Address 75 [facility] 7t [place] [address] Care Team Providers Care Internal Grinding Machine Operator Name Role Phone Daisha Crane MD Primary Care Provider + [phone] Lisa Liao PharmD Unavailable Alissa Santillan MD Unavailable Sharon Guardado Unavailable Cedric Lujan MD Unavailable Rory Angeles MD Unavailable Jairon Crawford OD Unavailable Encounter Details Date Type Department Care Team (Late st Contact Info) Description 11/19/2022 Orders Only [facility] MEDICINE [address] [place] [address] [phone] Radha Johnson LPN Social History Tobacco Use [...] 9:00 AM EDT Clinical Support [facility] MEDICINE [address] [place] [address] Loyda Banda, RN 505 [place] [address] documented as of this encounter Visit Diagnoses Not on filedocumented in this encounter Care Teams Internal Grinding Machine Operator Relationship Specialty Start Date End Date Daisha Crane MD 230 [place] [address] PCP - General Family Medicine 11/01/18 Lisa Liao, PharmD 230 [place] [address] Pharmacist Internal Medicine 04/06/23 02/02/25 Alissa Santillan MD [address] [place] [address] Rheumatology 11/09/24 Sharon Guardado [address] 3rd [place] [address] Cardiology 11/13/24 Cedric Lujan MD [address] [place] [address] Orthopaedic Surgery 11/23/24 Rory Angeles MD [address] [place] [address] Pain Medicine 02/06/25 Jairon Crawford OD [facility] [address] [place] [address] Optometry 03/07/25 Laura Velarde MD Rheumatology 03/28/25 documented as of this encounter
--- OUTSIDE RECORDS SUMMARY | 2025-07-06 11:10 | XMS_ITS | Encounter Summary ---
Author Organization [employer] Address 75 [facility] 7t [place] [address] Care Team Providers Care Tool Engineer Name Role Phone Daisha Crane MD Primary Care Provider +1- [phone] Lisa Liao PharmD Unavailable Alissa Santillan MD Unavailable Sharon Guardado Unavailable Cedric Lujan MD Unavailable Rory Angeles MD Unavailable Jairon Crawford OD Unavailable Reason for Visit * Reason Comments Med Refill Encounter Details Date Type Department Care Team (Late st Contact Info) Description 09/03/2023 Refill [facility] 230 [place], [place] [phone] Kye Gregory MD 230 [place], [place] [phone] Tinea versicolor Social History Tobacco Use Types [...] Description 07/20/2025 9:00 AM EDT Clinical Support [facility] 230 [place] [address] Loyda Banda RN 505 [place] [address] documented as of this encounter Goals Goal [...] documented as of this encounter Care Teams Tool Engineer Relationship Specialty Start Date End Date Daisha Crane MD 230 [place] [address] PCP - General Family Medicine 11/01/18 Lisa Liao, Nidia 230 [place] [address] Pharmacist Internal Medicine 04/06/23 02/02/25 Alissa Santillan MD [address] [place] [address] Rheumatology 11/09/24 Sharon Guardado [address] 3rd [place] [address] Cardiology 11/13/24 Cedric Lujan MD [address] [place] [address] Orthopaedic Surgery 11/23/24 Rory Angeles MD [address] [place] [address] Pain Medicine 02/06/25 Jairon Crawford OD [facility] [address] [place] [address] Optometry 03/07/25 Laura Velarde MD Rheumatology 03/28/25 documented as of this encounter
--- OUTSIDE RECORDS SUMMARY | 2025-07-06 11:10 | XMS_ITS | Encounter Summary ---
Author Organization [employer] Address 75 [facility] 7t [place] [address] Care Team Providers Care Aluminum Sheet Cutter Name Role Phone Daisha Crane MD Primary Care Provider +1- [phone] Alissa Santillan MD Unavailable Sharon Guardado Unavailable Cedric Lujan MD Unavailable Rory Angeles MD Unavailable Jairon Crawford OD Unavailable Reason for Visit * Reason Onset Date Comments Med Refill 03/23/2025 Encounter Details Date Type Department Care Team (Late st Contact Info) Description 03/23/2025 Telephone [facility] MEDICINE 230 [place], [place] [phone] Daisha Crane MD 230 [place], [place] [phone] Med Refill Social History Tobacco Use Types [...] immediate release tablet To be sent to: [facility] - [place], [place] - [address] [facility] documented in this encounter Plan of Treatment Upcoming Encounters Date Type Department Care Team (Late st Contact Info) Description 07/20/2025 9:00 AM EDT Clinical Support [facility] MEDICINE 230 [place] [address] Loyda Banda, SO 505 [place] [address] documented as of this encounter Goals Goal [...] documented as of this encounter Care Teams Aluminum Sheet Cutter Relationship Specialty Start Date End Date Daisha Crane MD [address] [place] [address] PCP - General Family Medicine 11/01/18 Alissa Santillan MD [address] [place] [address] Rheumatology 11/09/24 Sharon Guardado [address] 3rd [place] [address] Cardiology 11/13/24 Cedric Lujan MD [address] [place] [address] Orthopaedic Surgery 11/23/24 Rory Angeles MD [address] [place] [address] Pain Medicine 02/06/25 Jairon Crawford OD [facility] [address] [place] [address] Optometry 03/07/25 Laura Velarde MD Rheumatology 03/28/25 documented as of this encounter
--- OUTSIDE RECORDS SUMMARY | 2025-07-06 11:10 | XMS_ITS | Encounter Summary ---
Author Organization [employer] Address 75 [facility] 7t [place] [address] Care Team Providers Care Band Nailer Name Role Phone Daisha Crane MD Primary Care Provider +1- [phone] Alissa Santillan MD Unavailable Sharon Guardado Unavailable Cedric Lujan MD Unavailable Rory Angeles MD Unavailable Jairon Crawford OD Unavailable Reason for Visit * Reason Onset Date Comments Med Refill 06/12/2025 Encounter Details Date Type Department Care Team (Late st Contact Info) Description 06/12/2025 Telephone [facility] MEDICINE 230 [place], [place] [phone] Daisha Crane MD 230 [place], [place] [phone] Med Refill Social History Tobacco Use Types [...] immediate release tablet To be sent to: [facility] - [place], [place] - 230 [facility] documented in this encounter Plan of Treatment Upcoming Encounters Date Type Department Care Team (Late st Contact Info) Description 07/20/2025 9:00 AM EDT Clinical Support [facility] MEDICINE 230 [place] [address] Loyda Banda, SO 505 [place] [address] documented as of this encounter Goals Goal [...] documented as of this encounter Care Teams Band Nailer Relationship Specialty Start Date End Date Daisha Crane MD [address] [place] [address] PCP - General Family Medicine 11/01/18 Alissa Santillan MD [address] [place] [address] Rheumatology 11/09/24 Sharon Guardado [address] 3rd [place] [address] Cardiology 11/13/24 Cedric Lujan MD [address] [place] [address] Orthopaedic Surgery 11/23/24 Rory Angeles MD [address] [place] [address] Pain Medicine 02/06/25 Jairon Crawford OD [facility] [address] [place] [address] Optometry 03/07/25 Laura Velarde MD Rheumatology 03/28/25 documented as of this encounter
--- OUTSIDE RECORDS SUMMARY | 2025-07-06 11:10 | XMS_ITS | Encounter Summary ---
Author Organization [employer] Address 75 [facility] 7t [place] [address] Care Team Providers Care Correctional Officer Lieutenant Name Role Phone Daisha Crane MD Primary Care Provider +1- [phone] Lisa Liao PharmD Unavailable Alissa Santillan MD Unavailable Sharon Guardado Unavailable Cedric Lujan MD Unavailable Rory Angeles MD Unavailable Jairon Crawford OD Unavailable Encounter Details Date Type Department Care Team (Late st Contact Info) Description 11/18/2023 Telephone [facility] MEDICINE 230 [place], [place] [phone] Daisha Crane MD 230 [place], [place] [phone] Social History Tobacco Use Types Packs/Day Years [...] Description 07/20/2025 9:00 AM EDT Clinical Support [facility] MED[facility]INE 230 [place] [address] Loyda Banda RN 505 [place] [address] documented as of this encounter Goals Goal [...] documented as of this encounter Care Teams Correctional Officer Lieutenant Relationship Specialty Start Date End Date Daisha Crane MD [address] [place] [address] PCP - General Family Medicine 11/01/18 Lisa Liao, PharmD 230 [place] [address] Pharmacist Internal Medicine 04/06/23 02/02/25 Alissa Santillan MD [address] [place] [address] Rheumatology 11/09/24 Sharon Guardado [address] 3rd [place] [address] Cardiology 11/13/24 Cedric Lujan MD [address] [place] [address] Orthopaedic Surgery 11/23/24 Rory Angeles MD [address] [place] [address] Pain Medicine 02/06/25 Jairon Crawford OD [facility] [address] [place] [address] Optometry 03/07/25 Laura Velarde MD Rheumatology 03/28/25 documented as of this encounter
--- OUTSIDE RECORDS SUMMARY | 2025-07-06 11:10 | XMS_ITS | Encounter Summary ---
Author Organization [employer] Address 75 [facility] 7t [place] [address] Care Team Providers Care Car Dumper Operator Helper Name Role Phone Daisha Crane MD Primary Care Provider +1- [phone] Lisa Liao PharmD Unavailable Alissa Santillan MD Unavailable Sharon Guardado Unavailable Cedric Lujan MD Unavailable Rory Angeles MD Unavailable Jairon Crawford OD Unavailable Reason for Visit * Reason Onset Date Comments Med Refill 11/24/2023 Encounter Details Date Type Department Care Team (Late st Contact Info) Description 11/24/2023 Telephone [facility] MEDICINE 230 [place], [place] [phone] Daisha Crane MD 230 [place], [place] [phone] Med Refill Social History Tobacco Use Types [...] immediate release tablet To be sent to: [facility] - [place], [place] - [address] [place] [address] documented in this encounter Plan of Treatment Upcoming Encounters Date Type Department Care Team ([facility] st Contact Info) Description 07/20/2025 9:00 AM EDT Clinical Support [facility] MEDICINE 230 [place] [address] Loyda Banda, SO 505 [place] [address] documented as of this encounter Goals Goal [...] as of this encounter Care Teams Car Dumper Operator Helper Relationship Specialty Start Date End Date Daisha Crane MD 230 [place] [address] PCP - General Family Medicine 11/01/18 Lsia Liao, GenevaD 230 [place] [address] Pharmacist Internal Medicine 04/06/23 02/02/25 Alissa Santillan MD [address] [place] [address] Rheumatology 11/09/24 Sharon Guardado [address] 3rd [place] [address] Cardiology 11/13/24 Cedric Lujan MD [address] [place] [address] Orthopaedic Surgery 11/23/24 Rory Angeles MD [address] [place] [address] Pain Medicine 02/06/25 Jairon Crawford OD [facility] [address] [place] [address] Optometry 03/07/25 Laura Velarde MD Rheumatology 03/28/25 documented as of this encounter
--- OUTSIDE RECORDS SUMMARY | 2025-07-06 11:10 | XMS_ITS | Encounter Summary ---
Author Organization [employer] Address 75 [facility] 7t [place] [address] Care Team Providers Care Floor Surfacer Name Role Phone Daisha Crane MD Primary Care Provider +1- [phone] Alissa Santillan MD Unavailable Sharon Guardado Unavailable Cedric Lujan MD Unavailable Rory Angeles MD Unavailable Jairon Crawford OD Unavailable Reason for Visit * Reason Comments Med Refill Encounter Details Date Type Department Care Team (Late st Contact Info) Description 05/15/2025 Refill [facility]EDS [address] [place], [place] [phone] Daisha Crane MD 230 [place], [place] [phone] Pain Social History Tobacco Use Types Packs/Day [...] [facility] MEDICINE [address] [place] [phone] Loyda Banda RN 505 [place] [address] documented as of this encounter Goals Goal [...] as of this encounter Care Teams Floor Surfacer Relationship Specialty Start Date End Date Daisha Crane MD 230 [place] [address] PCP - General Family Medicine 11/01/18 Alissa Santillan MD [address] [place] [address] Rheumatology 11/09/24 Sharon Guardado [address] 3rd [place] [address] Cardiology 11/13/24 Cedric Lujan MD [address] [place] [address] Orthopaedic Surgery 11/23/24 Rory Angeles MD [address] [place] [address] Pain Medicine 02/06/25 Jairon Crawford OD [facility] [address] [place] [address] Optometry 03/07/25 Laura Velarde MD Rheumatology 03/28/25 documented as of this encounter
--- OUTSIDE RECORDS SUMMARY | 2025-07-06 11:10 | XMS_ITS | Encounter Summary ---
Author Organization [employer] Address 75 [facility] 7t [place] [address] Care Team Providers Care Casting Carrier Name Role Phone Daisha Crane MD Primary Care Provider +1- [phone] Lisa Liao PharmD Unavailable Alissa Santillan MD Unavailable Sharon Guardado Unavailable Cedric Lujan MD Unavailable Rory Angeles MD Unavailable Jairon Crawford OD Unavailable Encounter Details Date Type Department Care Team (Late st Contact Info) Description 10/28/2022 Telephone [facility] MEDICINE [address] [place] [address] [phone] Daisha Crane MD 230 [place], [place] [phone] Social History Tobacco Use Types Packs/Day Years [...] Description 07/20/2025 9:00 AM EDT Clinical Support [facility] MEDICINE 230 [place], [place] [phone] Loyda Banda, RN 505 [place] [address] documented as of this encounter Visit Diagnoses Not on filedocumented in this encounter Care Teams Casting Carrier Relationship Specialty Start Date End Date Daisha Crane MD 230 [place] [address] PCP - General Family Medicine 11/01/18 Lisa Liao, GenevaD 230 [place] [address] Pharmacist Internal Medicine 04/06/23 02/02/25 Alissa Santillan MD [address] [place] [address] Rheumatology 11/09/24 Sharon Guardado [address] 3rd [place] [address] Cardiology 11/13/24 Cedric Lujan MD [address] [place] [address] Orthopaedic Surgery 11/23/24 Rory Angeles MD [address] [place] [address] Pain Medicine 02/06/25 Jairon Crawford OD [facility] [address] [place] [address] Optometry 03/07/25 Laura Velarde MD Rheumatology 03/28/25 documented as of this encounter
--- OUTSIDE RECORDS SUMMARY | 2025-07-06 11:10 | XMS_ITS | Encounter Summary ---
Author Organization [employer] Address 75 [facility] 7t [place] [address] Care Team Providers Care Ladle Repairer Name Role Phone Daisha Crane MD Primary Care Provider + [phone] Lisa Liao PharmD Unavailable Alissa Santillan MD Unavailable Sharon Guardado Unavailable Cedric Lujan MD Unavailable Rory Angeles MD Unavailable Jairon Crawford OD Unavailable Encounter Details Date Type Department Care Team (Latest Contact Info) Description 03/10/2019 Abstract [facility] CONVERSIONS Dental, Provider, DDS Social History [...] Description 07/20/2025 9:00 AM EDT Clinical Support [facility] MEDICINE 230 [place], [place] [phone] Loyda Banda RN 505 [place], [place] [phone] documented as of this encounter Visit Diagnoses Not on filedocumented in this encounter Care Teams Ladle Repairer Relationship Specialty Start Date End Date Daisha Crane MD 230 [place] [address] PCP - General Family Medicine 11/01/18 Lisa Liao, Nidia 230 [place] [address] Pharmacist Internal Medicine 04/06/23 02/02/25 Alissa Santillan MD [address] [place] [address] Rheumatology 11/09/24 Sharon Guardado [address] 3rd [place] [address] Cardiology 11/13/24 Cedric Lujan MD [address] [place] [address] Orthopaedic Surgery 11/23/24 Rory Angeles MD [address] [place] [address] Pain Medicine 02/06/25 Jairon Crawford OD [facility] [address] [place] [address] Optometry 03/07/25 Laura Velarde MD Rheumatology 03/28/25 documented as of this encounter
--- OUTSIDE RECORDS SUMMARY | 2025-07-06 11:10 | XMS_ITS | Encounter Summary ---
Author Organization [employer] Address 75 [facility] 7t [place] [address] Care Team Providers Care Bioinformatics Software Engineer Name Role Phone Daisha Crane MD Primary Care Provider +1- [phone] Lisa Liao PharmD Unavailable Alissa Santillan MD Unavailable Sharon Guardado Unavailable Cedric Lujan MD Unavailable Rory Angeles MD Unavailable Jairon Crawford OD Unavailable Encounter Details Date Type Department Care Team (Late st Contact Info) Description 12/16/2022 Orders Only [facility] CH[facility] MED & PEDS [address] [place], [place] [phone] Jenn Polk LPN Social History Tobacco Use [...] Description 07/20/2025 9:00 AM EDT Clinical Support [facility] MEDICINE 230 [place] [address] Loyda Banda, RN [address] [place] [address] documented as of this encounter Visit Diagnoses Not on filedocumented in this encounter Additional Health Concerns Assessment Noted Time PHQ-9 Depression Total Score: 0 11/23/19 10:39 AM EST documented as of this encounter Care Teams Bioinformatics Software Engineer Relationship Specialty Start Date End Date Daisha Crane MD 230 [place] [address] PCP - General Family Medicine 11/01/18 Lisa Liao PharmD 230 [place] [address] Pharmacist Internal Medicine 04/06/23 02/02/25 Alissa Santillan MD [address] [place] [address] Rheumatology 11/09/24 Sharon Guardado [address] 3rd [place] [address] Cardiology 11/13/24 Cedric Lujan MD [address] [place] [address] Orthopaedic Surgery 11/23/24 Rory Angeles MD [address] [place] [address] Pain Medicine 02/06/25 Jairon Crawford OD [facility] [address] [place] [address] Optometry 03/07/25 Laura Velarde MD Rheumatology 03/28/25 documented as of this encounter
--- OUTSIDE RECORDS SUMMARY | 2025-07-06 11:10 | XMS_ITS | Encounter Summary ---
Author Organization [employer] Address [address] [place] [address] 7t [place] [address] Care Team Providers Care Preparation Room Worker Name Role Phone Daisha Crane MD Primary Care Provider +1- [phone] Lisa Liao PharmD Unavailable Alissa Santillan MD Unavailable Sharon Guardado Unavailable Cedric Lujan MD Unavailable Rory Angeles MD Unavailable Jairon Crawford OD Unavailable Reason for Visit * Reason Onset Date Comments Med Refill 06/07/2023 Encounter Details Date Type Department Care Team (Late st Contact Info) Description 06/07/2023 Telephone [facility] MEDICINE 230 [place], [place] [phone] Hiram [place] MD 230 [place], [place] [phone] Med Refill Social History Tobacco Use Types [...] MG immediate release tablet Please sent to [facility] - [place], [place] - [address] [place] [address] documented in this encounter Plan of Treatment Upcoming Encounters Date Type Department Care Team (Late st Contact Info) Description 07/20/2025 9:00 AM EDT Clinical Support [facility] MEDICINE 230 [place] [address] Loyda Banda RN 505 [place] [address] documented as of this encounter Goals Goal [...] documented as of this encounter Care Teams Preparation Room Worker Relationship Specialty Start Date End Date Daisha Crane MD 230 [place] [address] PCP - General Family Medicine 11/01/18 Lisa Liao, PharmD 230 [place] [address] Pharmacist Internal Medicine 04/06/23 02/02/25 Alissa Santillan MD [address] [facility] [address] [place] [address] Rheumatology 11/09/24 Sharon Guardado [address] 3rd [place] [address] Cardiology 11/13/24 Cedric Lujan MD [address] [place] [address] Orthopaedic Surgery 11/23/24 Rory Angeles MD [address] [place] [address] Pain Medicine 02/06/25 Jairon Crawford OD [facility] [address] [place] [address] Optometry 03/07/25 Laura Velarde MD Rheumatology 03/28/25 documented as of this encounter
--- OUTSIDE RECORDS SUMMARY | 2025-07-06 11:10 | XMS_ITS | Encounter Summary ---
Author Organization [employer] Address 75 [facility] 7t [place] [address] Care Team Providers Care Truck Driving Name Role Phone Daisha Crane MD Primary Care Provider + [phone] Lsia Liao PharmD Unavailable Alissa Santillan MD Unavailable Sharon Guardado Unavailable Cedric Lujan MD Unavailable Rory Angeles MD Unavailable Jairon Crawford OD Unavailable Encounter Details Date Type Department Care Team (Late st Contact Info) Description 03/15/2023 Orders Only [facility] CHC MED & PEDS 505 [place], [place] [phone] Jenn Polk LPN Social History Tobacco Use [...] Description 07/20/2025 9:00 AM EDT Clinical Support [facility] MEDICINE 230 [place] [address] Loyda Banda, SO 505 [place] [address] documented as of this encounter Visit Diagnoses Not on filedocumented in this encounter Additional Health Concerns Assessment Noted Time PHQ-9 Depression Total Score: 0 11/23/19 10:39 AM EST documented as of this encounter Care Teams Truck Driving Relationship Specialty Start Date End Date Daisha Crane MD 230 [place] [address] PCP - General Family Medicine 11/01/18 Lisa Liao, GenevaD [address] [place] [address] Pharmacist Internal Medicine 04/06/23 02/02/25 Alissa Santillan MD [address] [place] [address] Rheumatology 11/09/24 Sharon Guardado [address] 3rd [place] [address] Cardiology 11/13/24 Cedric Lujan MD [address] [place] [address] Orthopaedic Surgery 11/23/24 Rory Angeles MD [address] [place] [address] Pain Medicine 02/06/25 Jairon Crawford OD [facility] [address] [place] [address] Optometry 03/07/25 Laura Velarde MD Rheumatology 03/28/25 documented as of this encounter
--- OUTSIDE RECORDS SUMMARY | 2025-07-06 11:10 | XMS_ITS | Encounter Summary ---
Author Organization [employer] Address [address] [place] [address] 7t [place] [address] Care Team Providers Care Time Clock Inspector Name Role Phone Daisha Crane MD Primary Care Provider +1- [phone] Lisa Liao PharmD Unavailable Alissa Santillan MD Unavailable Sharon Guardado Unavailable Cedric Lujan MD Unavailable Rory Angeles MD Unavailable Jairon Crawford OD Unavailable Encounter Details Date Type Department Care Team (Late st Contact Info) Description 06/01/2023 Abstract [facility] MEDICINE 230 [place], [place] [phone] Daisha Crane MD 230 [place], [place] [phone] Social History Tobacco Use Types Packs/Day Years [...] 07/20/2025 9:00 AM EDT Clinical Support [facility] MEDICINE 230 [place] [address] Loyda Banda RN [address] [place] [address] documented as of this encounter Goals Goal [...] documented as of this encounter Care Teams Time Clock Inspector Relationship Specialty Start Date End Date Daisha Crane MD 230 [place] [address] PCP - General Family Medicine 11/01/18 Lisa Liao, PharmD 230 [place] [address] Pharmacist Internal Medicine 04/06/23 02/02/25 Alissa Santillan MD [address] [place] [address] Rheumatology 11/09/24 Sharon Guardado [address] 3rd [place] [address] Cardiology 11/13/24 Cedric Lujan MD [address] [place] [address] Orthopaedic Surgery 11/23/24 Rory Angeles MD [address] [place] [address] Pain Medicine 02/06/25 Jairon Crawford, [facility] [address] [place] [address] Optometry 03/07/25 Laura Velarde MD Rheumatology 03/28/25 documented as of this encounter
--- OUTSIDE RECORDS SUMMARY | 2025-07-06 11:10 | XMS_ITS | Encounter Summary ---
Author Organization [employer] Address 75 [facility] 7t [place] [address] Care Team Providers Care Heat Reader Name Role Phone Daisha Crane MD Primary Care Provider +1- [phone] Lisa Liao PharmD Unavailable Alissa Santillan MD Unavailable Sharon Guardado Unavailable Cedric Lujan MD Unavailable Rory Angeles MD Unavailable Jairon Crawford OD Unavailable Reason for Visit * Reason Comments Med Refill Encounter Details Date Type Department Care Team (Late st Contact Info) Description 02/06/2024 Refill [facility] MEDICINE 230 [place], [place] [phone] Lisa Liao, PharmD 230 [place], [place] [phone] Social History Tobacco Use Types Packs/Day Years [...] Description 07/20/2025 9:00 AM EDT Clinical Support [facility] MEDICINE [address] [place] [address] Loyda Banda RN 505 [place], [place] [phone] documented as of this encounter Goals Goal [...] documented as of this encounter Care Teams Heat Reader Relationship Specialty Start Date End Date Daisha Crane MD 230 [place] [address] PCP - General Family Medicine 11/01/18 Lisa Liao, GenevaD 230 [place] [address] Pharmacist Internal Medicine 04/06/23 02/02/25 Alissa Santillan MD [address] [place] [address] Rheumatology 11/09/24 Sharon Guardado [address] 3rd [place] [address] Cardiology 11/13/24 Cedric Lujan MD [address] [place] [address] Orthopaedic Surgery 11/23/24 Rory Angeles MD [address] [place] [address] Pain Medicine 02/06/25 Jairon Crawford OD [facility] [address] [place] [address] Optometry 03/07/25 Laura Velarde MD Rheumatology 03/28/25 documented as of this encounter
--- OUTSIDE RECORDS SUMMARY | 2025-07-06 11:10 | XMS_ITS | Encounter Summary ---
Author Organization [employer] Address [address] [facility] 7t [place] [address] Care Team Providers Care Ic Designer Custom Name Role Phone Daisha Crane MD Primary Care Provider + [phone] Lisa Liao PharmD Unavailable Alissa Santillan MD Unavailable Sharon Guardado Unavailable Cedric Lujan MD Unavailable Rory Angeles MD Unavailable Jairon Crawford OD Unavailable Encounter Details Date Type Department Care Team (Late st Contact Info) Description 03/05/2023 Orders Only [facility] [address] [place] [address] [phone] Radha Johnson LPN Social History Tobacco Use [...] AM EDT Clinical Support [facility] [address] [place] [phone] Loyda Banda, RN [address] [place] [address] documented as of this encounter Visit Diagnoses Not on filedocumented in this encounter Additional Health Concerns Assessment Noted Time PHQ-9 Depression Total Score: 0 11/23/19 10:39 AM EST documented as of this encounter Care Teams Ic Designer Custom Relationship Specialty Start Date End Date Daisha Crane MD [address] [place] [address] PCP - General Family Medicine 11/01/18 Lisa Liao, GenevaD [address] [place] [address] Pharmacist Internal Medicine 04/06/23 02/02/25 Alissa Santillan MD [address] [place] [address] Rheumatology 11/09/24 Sharon Guardado [address] 3rd [place] [address] Cardiology 11/13/24 Cedric Lujan MD [address] [place] [address] Orthopaedic Surgery 11/23/24 Rory Angeles MD [address] [place] [address] Pain Medicine 02/06/25 Jairon Crawford OD [facility] [address] [place] [address] Optometry 03/07/25 Laura Velarde MD Rheumatology 03/28/25 documented as of this encounter
--- OUTSIDE RECORDS SUMMARY | 2025-07-06 11:10 | XMS_ITS | Encounter Summary ---
Author Organization [employer] Address [address] [facility] 7t [place] [address] Care Team Providers Care Latent Fingerprint Examiner Name Role Phone Daisha Crane MD Primary Care Provider [phone]- [phone] Alissa Santillan MD Unavailable Sharon Guardado Unavailable Cedric Lujan MD Unavailable Rory Angeles MD Unavailable Jairon Crawford OD Unavailable Encounter Details Date Type Department Care Team (Late st Contact Info) Description 07/04/2025 Orders Only GENERIC EXTERNAL DATA [...] your housing situation today? I have filippo sharam 04/06/[address] you li [...] Clinical Support [facility] [address] [place] [phone] Loyda Banda, SO [address] [place] [address] documented as of this encounter Goals Goal Patient Goal Type Associated Problems Recent Progress Patient-Stated? Author Blood Pressure < 140/90 Blood Pressure 129/69(2024 10:12 AM EDT) No Lisa Anguiano, PharmD Hemoglobin A1c < 8 Result Component 6.4( 10:40 AM EDT) No Lisa Anguiano, PharmD documented as of this encounter Procedures Procedure Name Priority Date/Time Associated Diagnosis Comments CBC WITH AUTO DIFFERENTIAL Routine 07/04/2025 9:18 AM EDT SED RATE BY MODIFIED WESTERGREN Routine 07/04/2025 9:18 AM EDT C-REACTIVE PROTEIN Routine 07/04/2025 9: 18 AM EDT LIPID PANEL, STANDARD Routine 07/04/2025 9:18 AM EDT COMPREHENSIVE METABOLIC PANEL Routine 07/04/2025 9:18 AM EDT documented in this encounter Results * Sed Rate by Modified Medardoren (07/04/2025 9:18 AM EDT) Erythrocyte Sedimentation Rate 2 0 - 15 MM/HR [facility] Comment:Patients with polycy themia and many hemoglobin abnormalitiesmay have depressed sed rates whereas patients with anemiamay have elevated sed rates. 07/04/2025 9:18 AM EDT 07/04/2025 9:18 AM EDT us Generic External Data Provider LAB BLOOD ORDERAB LES Final Result [facility] [address] [place] [phone] * (ABNORMAL) Lipid Panel, Standard (07/04/2025 9:18 AM EDT) Triglycerides 130 <150 mg/dL [facility] Comment:Desirable Triglyceri de: less than 150 mg/dLBorderline High Triglyceride 150-199 mg/dLHigh Triglyceride: 200-499 mg/dLVery High Triglyceride: greater than or equal to 5OO mg/dL Cholesterol 97 <200 mg/dL [facility] Comment:Desirable Cholestero l: less than 200 mg/dLBorderline High Cholesterol: 200-239 mg/dLHigh Cholesterol: greater than 239 mg/dL LDL Cholesterol Calculated 36 <100 mg/dL [facility] Comment:Desirable LDL: less than 100 mg/dLNear Optimal/Above Optimal LDL: 110- 129 mg/dLBorderline High LDL: 130-159 mg/dLHigh LDL: 160-189 mg/dLVery High LDL: greater than or equal to 190 mg/dL HDL Cholesterol 35(L) >40 mg/dL [facility] Comment:Desirable HDL: great er than 40 mg/dL Note: This HDL assay may give artificially low results in patients with liver disease. 07/04/2025 9:18 AM EDT 07/04/2025 9:18 AM EDT us Generic External Data Provider LAB BLOOD ORDERAB LES Final Result Performing Organization Address [facility] Co de Phone Number [facility] [address] [place] [address] [phone] * C-reactive Protein (07/04/2025 9:18 AM EDT) Pathologist [facility] C Reactive Protein <0.04 < or = 0.50 mg/dL [facility] 07/04/2025 9:18 AM EDT 07/04/2025 9:18 AM EDT Generic External Data Provider LAB BLOOD ORDERAB LES Final Result Performing Organization Address [facility] de Phone Number [facility] [address] [place] [address] [phone] * (ABNORMAL) Comprehensive Metabolic Panel (07/04/2025 9:18 AM EDT) Pathologist [facility] Sodium 138 135 - 145 mmol/L [facility] Potassium 3.6 3.3 - 5.1 mmol/L [facility] Comment:Slight Hemolysis.Int erpret result with caution. Chloride 104 96 - 108 mmol/L [facility] Carbon Dioxide 24 22 - 29 mmol/L [facility] Anion Gap 14 12 - 20 [facility] Urea Nitrogen (BUN) 12 9 - 16 mg/dL [facility] Creatinine, Serum 0.74 0.5 - 1.4 mg/dL [facility] Estimated Glomerular Filt Rate >60 [facility] Comment:Chronic Kidney Disea se: Estimated GFR < 60 mL/min/[id number] Kidney Disease: Estimated GFR < 15 mL/min/1.73m2 Glucose 94 60 - 115 mg/dL [facility] Calcium 9.6 8.4 - 10.2 mg/dL [facility] Bilirubin, Total 0.8 0.0 - 1.0 mg/dL [facility] Aspartate Amino Transferase 38(H) 5 - 37 U/L [facility] Comment:Slight Hemolysis.Int erpret result with caution. Alanine Aminotransferase 25 0 - 40 U/L [facility] Total Protein 6.6 6.5 - 8.0 g/dL [facility] Albumin Level 4.5 3.5 - 5.0 g/dL [facility] Alkaline Phosphatase 54 39 - 117 U/L [facility] 07/04/2025 9:18 AM EDT 07/04/2025 9:18 AM EDT us Generic External Data Provider LAB BLOOD ORDERAB LES Final Result [facility] [address] [place] [address] [phone] * (ABNORMAL) CBC auto differential (07/04/2025 9:18 AM EDT) White Blood Count 9.5 4.8 - 10.8 X10*3/uL [facility] Red Blood Count 3.94(L) 4.60 - 5.80 X10*6/uL [facility] Hemoglobin 9.4(L) 14.0 - 18.0 g/dl [facility] Hematocrit 32.0(L) 42.0 - 52.0 % [facility] Mean Corpuscular Volume 81.2 80.0 - 98.0 fL [facility] Mean Corpuscular Hemoglobin 23.9(L) 27.0 - 33.0 pg [facility] Mean Corpuscular HGB Conc 29.4(L) 31.0 - 36.0 g/dl [facility] Red Cell Distribution Width 20.6(H) 11.0 - 16.0 % [facility] Platelet Count 219 160 - 400 X10*3/uL [facility] Mean Platelet Volume 10.1 9.4 - 12.4 fL [facility] Neutrophils Percent Auto 55.5 45 - 73 % [facility] Imm Gran Pct Auto 0.4 0.0 - 0.4 % [facility] Lymphocytes Percent Auto 29.0 20 - 40 % [facility] Monocytes Percent Auto 12.8(H) 2 - 11 % [facility] Eosinophils Percent Auto 1.7 0 - 4 % [facility] Basophils Percent Auto 0.6 0 - 2 % [facility] NRBC Pct Auto 0.0 0.0 - 0.2 /100WBC [facility] Neutrophils Absolute Auto 5.2 2.0 - 8.3 x10*3/uL [facility] Imm Gran Abs Auto 0.04(H) 0.00 - 0.03 X10*3/uL [facility] Lymphocytes Absolute Auto 2.7 1.2 - 4.9 X10*3/uL [facility] Monocytes Absolute Auto 1.2 0.1 - 1.2 X10*3/uL [facility] Eosinophils Absolute Auto 0.2 0.0 - 0.4 X10*3/uL [facility] Basophils Absolute Auto 0.1 0.0 - 0.2 X10*3/uL [facility] NRBC Abs Auto 0.000 0.0 - 0.012 X10*3/uL [facility] 07/04/2025 9:18 AM EDT 07/04/2025 9:18 AM EDT us Generic External Data Provider LAB BLOOD ORDERAB LES Final Result Performing Organization Address City/State/[facility] Co de Phone Number [facility] [address] [place] [phone] [phone] documented in this encounter Visit Diagnoses Not on filedocumented in this encounter Additional Health Concerns Assessment Noted Time PHQ-9 Depression Total Score: 7 03/07/20 25 10:43 AM EDT documented as of this encounter Care Teams Latent Fingerprint Examiner Relationship Specialty Start Date End Date Daisha Crane MD [address] [place] [phone] PCP - General Family Medicine 11/01/18 Alissa [address]illan MD [address] [place] [phone] Rheumatology 11/09/24 Sharon Guardado [address] [place] [address] Cardiology 11/13/24 Cedric Lujan MD [address] [place] [address] Orthopaedic Surgery 11/23/24 Rory Angeles MD [address] [place] [address] Pain Medicine 02/06/25 Jairon Crawford OD [facility] [address] [place] [address] Optometry 03/07/25 Laura Velarde MD Rheumatology 03/28/25 documented as of this encounter
== END 2025-07-06 11:17 | disposition home or self-care (01) ==
PROVIDERS: PCP Family Medicine; Visit Provider Registered Nurse Emergency
DX: M25.511 Pain in right shoulder (principal); G89.29 Other chronic pain; M75.101 Unspecified rotator cuff tear or rupture of right shoulder, not specified as traumatic; M12.811 Other specific arthropathies, not elsewhere classified, right shoulder
CPT/HCPCS: 99024

== ENCOUNTER → 2025-07-06 10:13 | Outpatient (BNVA) | payer OTHER, SELFPAY | PROVIDERS: PCP Family Medicine; Visit Provider Registered Nurse Emergency | DX: M25.511 Pain in right shoulder (principal); M75.101 Unspecified rotator cuff tear or rupture of right shoulder, not specified as traumatic; M12.811 Other specific arthropathies, not elsewhere classified, right shoulder; G89.29 Other chronic pain; Z98.890 Other specified postprocedural states | CPT/HCPCS: 99212 ==

== ENCOUNTER 2025-07-10 08:55 | Outpatient (AMB) | payer OTHER, SELFPAY ==
--- NOTE | 2025-07-10 09:22 | A.OFFVIS_ITS ---
Vital Signs 07/10/25 09:27 Height 5 ft 6 in Weight 157 lb 6.561 oz BMI 25.4 BP 132/62 Blood Pressure Location Lt brachial Position Sitting Pulse 60 Pulse Source Pulse Oximeter Pulse Oximetry (%) 98 Oxygen Delivery Method Room Air Intake Visit Reasons: RA Intake Note: Patient presents for RA follow up. Field Inspector Required: Yes Field Inspector Language: Quality Reviewer Services: Field Inspector Present Field Inspector Name: Aide Romo Information Interpreted: non-clinical & clinical Allergies lisinopril (LISINOPRIL) Allergy (Severe, Verified 07/10/25 09:27) Angioedema LAITH Inhibitors Adverse Reaction (Severe, Verified 07/10/25 09:27) Angioedema Medication List - Last Reconciled 07/10/25 by Laura Velarde MD acetaminophen (Tylenol Extra Strength) 500 mg PO Q6H PRN albuterol sulfate 90 mcg/actuation 2 puffs inhalation Q4H PRN atorvastatin 40 mg PO BEDTIME carvedilol 6.25 mg PO BID 90 days cholecalciferol (vitamin D3) 25 mcg PO DAILY docusate sodium (Colace) 100 mg PO BID fluticasone furoate 200 mcg/actuation (Arnuity Ellipta) 1 inh inhalation DAILY fluticasone propionate 220 mcg/actuation 2 puffs inhalation BID folic acid 1 mg PO QAM hydrochlorothiazide 12.5 mg PO DAILY hydroxychloroquine 200 mg orally ; Take 1 tab twice daily x5 days a week and 1 tab daily x2 days a week; icosapent ethyl grams PO loteprednol etabonate 0.5% 1 drp ophthalmic (eye) TID melatonin 3 mg PO BEDTIME PRN metformin ER 500 mg PO DAILY olopatadine 0.1% 1 drp ophthalmic (eye) QID omeprazole 20 mg PO QAM oxycodone 5 mg PO Q12H PRN polyethylene glycol 3350 (Miralax) 17 grams PO DAILY PRN prednisolone acetate 1% drps ophthalmic (eye) prednisone 5 mg PO DAILY 90 days Rasuvo (PF) (methotrexate (PF)) 25 mg (0.5 mL) subcut QWEEK NS sennosides 17.2 mg PO BEDTIME PRN tocilizumab (Actemra ACTPen) 162 mg (0.9 mL) subcut Q2W umeclidinium 62.5 mcg/actuation (Incruse Ellipta) 1 inh inhalation BEDTIME HPI Comments Details: Patient is a 79-year-old male with COPD, hyperlipidemia, hypertension complicated by coronary artery disease, diabetes, bilateral rotator cuff arthropathies, osteopenia with high FRAX index seropositive rheumatoid arthritis here today for follow up Interval History: Patient last seen 03/27/25 with me - On Actemra 162 every 2 weeks, Rasuvo/Mtx SC 25mg weekly, folic acid 1mg daily and prednisone 10mg daily - Doing well overall - Complained of Right wrist pain and swelling (Of note has a history of fall with fracture and subsequent surgical intervention on the right distal radius) - Received steroid injection of the right wrist - Prednisone decreased to 7.5mg Today, - On Actemra 162 every 2 weeks, Rasuvo/Mtx SC 25mg weekly, folic acid 1mg daily and prednisone 7.5mg daily - States that the injection helped but had return of the pain 1 week ago (injection helped for 4 months) but the pain is mild - Received a stimulator for his right shoulder (known rotator cuff and biceps tendon tear) but states there is no improvement in his pain - No prolonged AM stiffness Rheumatologic History: ++RF++CCP Plaquenil - June 2016- July 2020 Oral methotrexate 2017, GI upset Arava- July 2018- November 2018, ineffective Xeljanz- June 2018- November 2018, unclear what happened Sulfasalazine- November 2018- July 2020 Rasuvo- March 2020- present Humira -August 2021- August 2022 (secondary nonresponse) Actemra September 2022 effective Prednisone throughout Hydroxychloroquine added 08/2024 Current Rheumatology Medication(s): Prednisone 7.5 mg daily Actemra 162 mg every other week Rasuvo/methotrexate 25 mg sc weekly Folic acid 1mg daily [facility] Medical History Abscess, umbilical Ascending aorta dilation Epidermal inclusion cyst Abscess penitentiary systemic steroid user Osteoporosis Seropositive rheumatoid arthritis History of prostate cancer Arthritis GERD (gastroesophageal reflux disease) COPD (chronic obstructive pulmonary disease) Asthma HTN (hypertension) Surgical History History of open reduction and internal fixation (ORIF) procedure Hx of umbilical hernia repair Hx of eye surgery History of back surgery History of colonoscopy History of removal of cyst History of tonsillectomy and adenoidectomy History of arthroscopy of left shoulder History of prostate surgery Family History Mother History of breast cancer, Onset Age: 87 Father History of asthma Social History Alcohol intake: never Patient Tobacco Use Status: Current everyday Tobacco user Tobacco use type: Cigarette Cigarettes Per Day: 7 Years Smoked: 60 +/- e-Cigarette/Vaping Use: Never Used Current occupational status: retired Current occupation: [employer] Gender identity: Male Review of Systems Const Details: Review of Systems Constitutional: Denies fever, chills, weight loss ENT: Denies vision changes, eye pain or eye redness, dental caries, dry mouth GI: Denies nausea, vomiting, diarrhea, abdominal pain, change in BM Pulm: Denies SOB, TORRE, hemoptysis, wheezing Cards: Denies chest pain, palpitations Skin: Denies Raynaud's, rash, nail changes, photosensitivity, BALLOON MAKER: Denies headaches, weakness, paresthesias, recurrent falls MSK: as per HPI All other systems reviewed and are unremarkable except noted above Physical Exam Exam Exam: Vital signs reviewed Physical Examination CONSTITUITIONAL Patient alert and cooperative. Well appearing and in no apparent painful distress MSK Hands * Right Hand: Able to make a fist. No swelling or tenderness to palpation of the MCPs, PIPs or DIPs. No deformities noted. * Left Hand: Able to make a fist. No swelling or tenderness to palpation of the MCPs, PIPs or DIPs. No deformities noted. Wrists * Right Wrist: Decreased ROM to flexion and extension. No swelling or TTP * Left Wrist: Decreased ROM to flexion and extension. No swelling or TTP Elbows * Right Elbow: Full ROM. No swelling or TTP. No TTP of the medial epicondyle. No TTP of the lateral epicondyle * Left Elbow: Full ROM. No swelling or TTP. No TTP of the medial epicondyle. No TTP of the lateral epicondyle Shoulders * Right shoulder: Limited ROM. Cannot even initiate 15 degrees of abduction. No swelling noted. * Left shoulder: Decreased ROM up to 90 degrees abduction. No swelling noted. Knees * Right knee: Full ROM. No swelling noted. No TTP of the knee joint line. No TTP of pes anserine bursa * Left knee: Full ROM. No swelling noted. No TTP of the knee joint line. No TTP of pes anserine bursa. * Crepitations felt bilaterally Ankles * Right ankle: Good ankle dorsiflexion and plantar flexion. No swelling. No TTP of the ankle joint * Left ankle: Good ankle dorsiflexion and plantar flexion. No swelling. No TTP of the ankle joint Feet * Right foot: Negative squeeze test * Left foot: Negative squeeze test Tender points? * No tenderness to palpation of the bilateral trapezius, supraspinatus, anterior costochondral junctions, bilateral suboccipital muscle insertions SKIN No rashes Vital Signs: Last Vital Signs Pulse 60 07/10/25 09:27 BP 132/62 07/10/25 09:27 Pulse Ox 98 07/10/25 09:27 Oxygen Delivery Method Room Air 07/10/25 09:27 BMI result Body Mass Index 25.4 Results Reviewed Results Reviewed: Laboratory Tests 07/04/25 09:18 WBC 9.5 RBC 3.94 L Hgb 9.4 L Hct 32.0 L Plt Count 219 ESR 2 Sodium 138 Potassium 3.6 Chloride 104 Carbon Dioxide 24 BUN 12 Creatinine 0.74 AST 38 H ALT 25 C-Reactive Protein < 0.04 Laboratory Tests 02/22/25 09:33 Hepatitis A IgM Ab Nonreactive Hep Bs Antigen Negative Hep Bs Antibody NONREACTIVE Hep B Core Total Ab Nonreactive Hepatitis C Ab (EIA) Nonreactive TB Test (T-Spot) Com Negative Assessment & Plan Assessment & Plan (1) Seropositive rheumatoid arthritis: Comment: ++RF++CCP Plaquenil - June 2016- July 2020 Oral methotrexate 2017, GI upset Arava- July 2018- November 2018, ineffective Xeljanz- June 2018- November 2018, unclear what happened Sulfasalazine- November 2018- July 2020 Rasuvo- March 2020- present Humira -August 2021- August 2022 (secondary nonresponse) Actemra September 2022 effective Prednisone throughout Hydroxychloroquine added 08/2024 Code(s): M05.9 - Rheumatoid arthritis with rheumatoid factor, unspecified Category: Medical Plan: #Seropositive RA Patient is a 79-year-old male with seropositive rheumatoid arthritis here today for follow up, Currently on several therapies including SC methotrexate, Actemra, prednisone 7.5 mg and hydroxychloroquine. Right wrist without synovitis today. Decrease prednisone to 5mg Plan - Decrease prednisone to 5mg daily - Methotrexate 25mg SC - Folic acid 1mg daily - Actemra 162mg SC - Hydroxychloroquine 300mg daily - RTC 4 months - Labs before visit: CBC, CMP, ESR, CRP (2) penitentiary systemic steroid user: Code(s): Z79.52 - penitentiary (current) use of systemic steroids Category: Medical Plan: #Long-term Use of Steroids Discussed with patient the risks and benefits of steroid for managing the rheumatic condition Benefits include: - Reduced pain, improved mobility, increased participation in activities, and decreased progression of disease Risks include: - GI upset, potential ultrasound worsening or formation (especially in patients > 65 years old), elevated blood pressure/worsening hypertension, elevated blood sugar/worsening diabetes control, worsening of bone density, elevated lipids/worsening triglycerides, cataract formation, weight gain Recommended using proton pump inhibitors (PPIs) for the duration of steroid use to reduce the risk of gastric ulcers and vitamin-D daily to reduce the risk of osteoporosis Labs checked: ?A1c, T spot, hepatitis-B and C serologies Pneumocystis jiroveci prophylaxis: ?Patient with risk factors including steroids greater than 50 mg for more than 30 days, age greater than 60 years, and lung involvement from underlying rheumatic disease requires prophylaxis and will be given so (3) Encounter for monitoring tocilizumab therapy: Code(s): Z51.81 - Encounter for therapeutic drug level monitoring; Z79.899 - Other long term care administrator (current) drug therapy Category: Medical Plan: #Long-term Use of Tocilizumab Discussed the risks and benefits of tocilizumab with the management of this patient's rheumatic condition. ? Benefits include decreased pain, improved mortality, improved quality of life Risks include LFT abnormalities, elevated triglycerides, GI perforations Contraindicated in a patient with history of diverticulitis Monitoring: ?CBC, CMP, triglycerides (4) Encounter for methotrexate monitoring: Code(s): Z51.81 - Encounter for therapeutic drug level monitoring; Z79.631 - penitentiary (current) use of antimetabolite agent Plan: #Long-term Current Use of Methotrexate Discussed with patient the benefits and risks of methotrexate for managing their rheumatic condition Benefits include reduced pain, reduced mortality, maintenance of remission and reduction of flares Risks include oral ulcers, photosensitivity, hepatotoxicity, hematologic toxicity, pneumonitis, flu-like symptoms (especially day after administration), nodulosis, lymphomas ? Limit alcohol and avoid Bactrim ? Monitoring: ?CBC, BMP, LFTs every 3-4 months and hepatitis serologies as needed Plan I spent 40 minutes reviewing the record and labs, taking a history, examining the patient, discussing the treatment plan, filling out PT1 form for patient, ordering diagnostic work up and documenting in the medical record Medications: Changed From prednisone 7.5 mg (1.5 x 5 mg) PO DAILY 90 days 135 tabs 1RF M05.9 - Rheu matoid arthritis with rheumatoid factor, unspecified To prednisone 5 mg PO DAILY 90 tabs 1RF 90 days M05.9 - Rheumatoid arthritis with rheumatoid factor, unspecified Refilled Rasuvo (PF) (methotrexate (PF)) 25 mg (0.5 mL) subcut QWEEK 2 mL 3RF NS M05.9 - Rheumatoid arthritis with rheumatoid factor, unspecified folic acid 1 mg PO QAM 90 tabs 1RF hydroxychloroquine 200 mg orally ; Take 1 tab twice daily x5 days a week and 1 tab daily x2 days a week; 144 tabs 1RF M05.9 - Rheumatoid arthritis with rheumatoid factor, unspecified tocilizumab (Actemra ACTPen) 162 mg (0.9 mL) subcut Q2W 1.8 mL 5RF M05.9 - Rheumatoid arthritis with rheumatoid factor, unspecified Coding Level of Care Code Est Pt Level 5 (73989) Complex EM visit Add On G2211 Diagnoses Seropositive rheumatoid arthritis M05.9 superintendent terminal systemic steroid user Z79.52 Encounter for monitoring tocilizumab therapy Z51.81; Z79.899 Encounter for methotrexate monitoring Z51.81; Z79.631
[2025-07-10 09:27] VITALS: BP 132/62; PULSE 60; O2SAT 98; BMI 25.4
--- OUTSIDE RECORDS SUMMARY | 2025-07-10 10:07 | XMS_ITS | Encounter Summary ---
Author Organization [employer] Address 75 [facility] 7t [place] [address] Care Team Providers Care Test Eng Name Role Phone Daisha Crane MD Primary Care Provider +1- [phone] Lisa Liao PharmD Unavailable Alissa Santillan MD Unavailable Sharon Guardado Unavailable Cedric Lujan MD Unavailable Rory Angeles MD Unavailable Jairon Crawford OD Unavailable Reason for Visit * Reason Comments Med Refill Encounter Details Date Type Department Care Team (Late st Contact Info) Description 11/21/2024 Refill [facility] PEDS [address] [place], [place] [phone] Cara Whitfield MD [address] [place], [place] [phone] Pain Social History Tobacco Use Types Packs/Day [...] Description 07/20/2025 9:00 AM EDT Clinical Support [facility] MEDICINE [address] [place] [address] Loyda Banda RN [address] [place] [address] documented as of this encounter Goals Goal [...] documented as of this encounter Care Teams Test Eng Relationship Specialty Start Date End Date Daisha Crane MD [address] [place] [address] PCP - General Family Medicine 11/01/18 Lisa Liao, Nidia [address] [place] [address] Pharmacist Internal Medicine 04/06/23 02/02/25 Alissa Santillan MD [address] [place] [address] Rheumatology 11/09/24 Sharon Guardado [address] 3rd [place] [address] Cardiology 11/13/24 Cedric Lujan MD [address] [place] [address] Orthopaedic Surgery 11/23/24 Rory Angeles MD [address] [place] [address] Pain Medicine 02/06/25 Jairon Crawford OD [facility] [address] [place] [address] Optometry 03/07/25 Laura Velarde MD Rheumatology 03/28/25 documented as of this encounter
--- OUTSIDE RECORDS SUMMARY | 2025-07-10 10:07 | XMS_ITS | Encounter Summary ---
Author Organization [employer] Address 75 [facility] 7t [place] [address] Care Team Providers Care Textiles And Clothing Teacher Name Role Phone Daisha Crane MD Primary Care Provider +1- [phone] Alissa Santillan MD Unavailable Sharon Guardado Unavailable Cedric Lujan MD Unavailable Rory Angeles MD Unavailable Jairon Crawford OD Unavailable Reason for Visit * Reason Comments Med Refill Encounter Details Date Type Department Care Team (Late st Contact Info) Description 07/08/2025 Refill [facility] MEDICINE [address] [place], [place] [phone] Lisa Liao, PharmD [address] [place], [place] [phone] Hypertension, unspecified type Social History Tobacco Use Types Packs/Day [...] 07/20/2025 9:00 AM EDT Clinical Support [facility] MEDICINE [address] [place] [address] Loyda Banda RN 505 [place] [address] documented as of this encounter Goals Goal Patient Goal Type Associated Problems Recent Progress Patient-Stated? Author Blood Pressure < 140/90 Blood Pressure 129/69(2024 10:12 AM EDT) No Piers-Gambl e, Lisa, PharmD Hemoglobin A1c < 8 Result Component 6.4( 10:40 AM EDT) No Piers-Gambl e, Lisa, PharmD documented as of this encounter Visit Diagnoses Diagnosis Hypertension, unspecified type documented in this encounter Additional Health Concerns Assessment Noted Time PHQ-9 Depression Total Score: 7 03/07/20 25 10:43 AM EDT documented as of this encounter Care Teams Textiles And Clothing Teacher Relationship Specialty Start Date End Date Daisha Crane MD [address] [place] [address] PCP - General Family Medicine 11/01/18 Alissa Santillan MD [address] [place] [address] Rheumatology 11/09/24 Sharon Guardado [address] 3rd [place] [address] Cardiology 11/13/24 Cedric Lujan MD [address] [place] [address] Orthopaedic Surgery 11/23/24 Rory Angeles MD [address] [place] [address] Pain Medicine 02/06/25 Jairon Crawford OD [facility] [address] [place] [address] Optometry 03/07/25 Laura Velarde MD Rheumatology 03/28/25 documented as of this encounter
--- OUTSIDE RECORDS SUMMARY | 2025-07-10 10:07 | XMS_ITS | Encounter Summary ---
Author Organization [employer] Address [address] [place] [address] 7t [place] [address] Care Team Providers Care Iron And Steel Work Supervisor Name Role Phone Daisha Crane MD Primary Care Provider +1- [phone] Lisa Liao PharmD Unavailable Alissa Snatillan MD Unavailable Sharon Guardado Unavailable Cedric Lujan MD Unavailable Rory Angeles MD Unavailable Jairon Crawford OD Unavailable Reason for Visit * Reason Onset Date Comments Med Refill 07/07/2023 Encounter Details Date Type Department Care Team (Late st Contact Info) Description 07/07/2023 Telephone [facility] MEDICINE [address] [place], [place] [phone] Daisha Crane MD 230 [place], [place] [phone] Med Refill Social History Tobacco Use Types [...] MG immediate release tablet Please sent to [facility] - [place], [place] - [address] [place] [address] documented in this encounter Plan of Treatment Upcoming Encounters Date Type Department Care Team (Late st Contact Info) Description 07/20/2025 9:00 AM EDT Clinical Support [facility] MEDICINE [address] [place] [address] Loyda Banda RN 505 [place] [address] documented as of this encounter Goals Goal [...] documented as of this encounter Care Teams Iron And Steel Work Supervisor Relationship Specialty Start Date End Date Daisha Crane MD [address] [place] [address] PCP - General Family Medicine 11/01/18 Lisa Liao PharmD [address] [place] [address] Pharmacist Internal Medicine 04/06/23 02/02/25 Alissa Santillan [address] [place] [address] Rheumatology 11/09/24 Sharon Guardado [address] [place] [address] Cardiology 11/13/24 Cedric Lujan MD [address] [place] [address] Orthopaedic Surgery 11/23/24 Rory Angeles MD [address] [place] [address] Pain Medicine 02/06/25 Jairon Crawford OD [facility] [address] [place] [address] Optometry 03/07/25 Laura Velarde MD Rheumatology 03/28/25 documented as of this encounter
--- OUTSIDE RECORDS SUMMARY | 2025-07-10 10:07 | XMS_ITS | Encounter Summary ---
Author Organization [employer] Address 75 [facility] 7t [place] [address] Care Team Providers Care Sample Steamer Name Role Phone Daisha Crane MD Primary Care Provider +1- [phone] Lisa Liao PharmD Unavailable Alissa Santillan MD Unavailable Sharon Guardado Unavailable Cedric Lujan MD Unavailable Rory Angeles MD Unavailable Jairon Crawford OD Unavailable Encounter Details Date Type Department Care Team (Late st Contact Info) Description 10/30/2024 Telephone [facility] PEDS [address] [place], [place] [phone] Daisha Crane MD [address] [place], [place] [phone] Social History Tobacco Use Types Packs/Day Years [...] the past 12 months, has t he [employer] gas, oil or water [employer] threatened to shut off services in your [...] Description 07/20/2025 9:00 AM EDT Clinical Support [facility] 230 [place] [address] Loyda Banda RN [address] [place] [address] documented as of this encounter Goals Goal [...] documented as of this encounter Care Teams Sample Steamer Relationship Specialty Start Date End Date Daisha Crane MD [address] [place] [address] PCP - General Family Medicine 11/01/18 Lisa Liao, Nidia [address] [place] [address] Pharmacist Internal Medicine 04/06/23 02/02/25 Alissa Santillan MD [address] [place] [address] Rheumatology 11/09/24 Sharon Guardado [address] 3rd [place] [address] Cardiology 11/13/24 Cedric Lujan MD [address] [place] [address] Orthopaedic Surgery 11/23/24 Rory Angeles MD [address] [place] [address] Pain Medicine 02/06/25 Jairon Crawford OD [facility] [address] [place] [address] Optometry 03/07/25 Laura Velarde MD Rheumatology 03/28/25 documented as of this encounter
--- OUTSIDE RECORDS SUMMARY | 2025-07-10 10:07 | XMS_ITS | Encounter Summary ---
Author Organization [employer] Address 75 [facility] 7t [place] [address] Care Team Providers Care Vineyard Supervisor Name Role Phone Daisha Crane MD Primary Care Provider +1- [phone] Lisa Liao PharmD Unavailable Alissa Santillan MD Unavailable Sharon Guardado Unavailable Cedric Lujan MD Unavailable Rory Angeles MD Unavailable Jairon Crawford OD Unavailable Reason for Visit * Reason Onset Date Comments Med Refill 07/04/2024 Encounter Details Date Type Department Care Team (Late st Contact Info) Description 07/04/2024 Telephone [facility] MEDICINE [address] [place], [place] [phone] Daisha Crane MD 230 [place], [place] [phone] Med Refill Social History Tobacco Use Types [...] release tablet To be sent to: [facility] - [place], [place] - [address] [place] [address] documented in this encounter Plan of Treatment Upcoming Encounters Date Type Department Care Team (Late st Contact Info) Description 07/20/2025 9:00 AM EDT Clinical Support [facility] MEDICINE [address] [place] [address] Loyda Banda RN [address] [place], [place] [phone] documented as of this encounter Goals Goal [...] documented as of this encounter Care Teams Vineyard Supervisor Relationship Specialty Start Date End Date Daisha Crane MD [address] [place] [address] PCP - General Family Medicine 11/01/18 Lisa Liao, PharmD [address] [place] [address] Pharmacist Internal Medicine 04/06/23 02/02/25 Alissa Santillan MD [address] [place] [address] Rheumatology 11/09/24 Sharon Guardado [address] 3rd [place] [address] Cardiology 11/13/24 Cedric Lujan MD [address] [place] [address] Orthopaedic Surgery 11/23/24 Rory Angeles MD [address] [place] [address] Pain Medicine 02/06/25 Jairon Crawford OD [facility] [address] [place] [address] Optometry 03/07/25 Laura Velarde MD Rheumatology 03/28/25 documented as of this encounter
--- OUTSIDE RECORDS SUMMARY | 2025-07-10 10:07 | XMS_ITS | Encounter Summary ---
Author Organization [employer] Address 75 [facility] 7t [place] [address] Care Team Providers Care Mail Caller Name Role Phone Daisha Crane MD Primary Care Provider + [phone] Lisa Liao PharmD Unavailable Alissa Santillan MD Unavailable Sharon Guardado Unavailable Cedric Lujan MD Unavailable Rory Angeles MD Unavailable Jairon Crawford OD Unavailable Encounter Details Date Type Department Care Team (Latest Contact Info) Description 03/10/2019 Abstract [facility] CONVERSIONS Dental, Provider, DDS Social History [...] 9:00 AM EDT Clinical Support [facility] MEDICINE [address] [place], [place] [phone] Loyda Banda RN [address] [place], [place] [phone] documented as of this encounter Visit Diagnoses Not on filedocumented in this encounter Care Teams Mail Caller Relationship Specialty Start Date End Date Daisha Crane MD [address] [place] [address] PCP - General Family Medicine 11/01/18 Lisa Liao, Nidia [address] [place] [address] Pharmacist Internal Medicine 04/06/23 02/02/25 Alissa Santillan MD [address] [place] [address] Rheumatology 11/09/24 Sharon Guardado [address]rd [place] [address] Cardiology 11/13/24 Cedric Lujan MD [address] [place] [address] Orthopaedic Surgery 11/23/24 Rory Angeles MD [address] [place] [address] Pain Medicine 02/06/25 Jairon Crawford OD [facility] [address] [place] [address] Optometry 03/07/25 Laura Velarde MD Rheumatology 03/28/25 documented as of this encounter
--- OUTSIDE RECORDS SUMMARY | 2025-07-10 10:07 | XMS_ITS | Clinical Summary ---
Author Organization [employer] Address [address] [facility] 7t [place] [address] Care Team Providers Care Rod And Tube Straightener Name Role Phone Daisha Crane MD Primary Care Provider [phone] Alissa Santillan MD Unavailable Sharon Guardado Unavailable [...] the morning. 90 tablet 3 024 Active Icosapent Ethyl [...] complication, unspecified whether correction insulin use (CMS/HCC) TEST BLOOD SUGAR TWICE [...] complication, without long-term current use of insulin ([facility]) USE DIRECTED TO TEST BLOOD SUGAR TWICE DAILY 100 each 11 025 Active cholecalciferol (Vitamin D-3) 25 MCG [...] TIME RINSE MOUTH AFTER USING 30 each 5 025 Active oxyCODONE (Roxicodone) 5 MG immediate release tabletIndicatio ns:Pain Take 1 tablet (5 mg) by mouth every 8 (eight) hours if needed for severe pain. 56 tablet 025 Active hydroCHLOROthia zide 12.5 MG tabletIndicatio ns:Hypertension , unspecified type TAKE 1 TABLET BY MOUTH EVERY MORNING 90 tablet 3 025 Active hydroCHLOROthia zide 12.5 MG tabletIndicatio ns:Hypertension , unspecified type Take 1 tablet by mouth once daily in the morning 90 tablet 3 024 2024 Discontinued oxyCODONE (Roxicodone) 5 MG immediate release tabletIndicatio ns:Pain Take 1 tablet (5 mg) by mouth every 8 (eight) hours if needed for severe pain. 56 tablet 025 2024 Discontinued(R eorder (will not trigger notification to Pharmacy)) Active Problems Patient Care Coordination No te Formatting of this note migh t be different from the original. Enrolled in [facility] DM and HTN clinic with Lisa Liao, GenevaD, Formerly [facility] Transport Coordinator: Denise, member services number [phone] Tree Farmer Agency: [facility] Problem Noted Date Diagnosed Date Transaminitis 09/04/2024 Overview (03/07/2025): Lab Results Component Value Date TOTALBILIRUB 0.9 10/09/2024 AST 33 10/09/2024 ALT 33 10/09/2024 ALT 30 03/25/2021 ALP 48 10/09/2024 HEPCAB Nonreactive 11/11/2023 HEPAIGM Nonreactive 11/11/2023 HEPBSURFAB NONREACTIVE 11/11/2023 HEPBCOREAB Nonreactive 11/11/2023 HEPBSURFACAG Negative 11/11/2023 FERRITIN 18 (L) 10/09/2024 Assessment & Plan (09/04/2024 5:00 PM EST): -ordered labs 09/04/24 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 He would like referral to [facility] , new referral placed 09/04/24 -Saw Podiatry 11/07/24 Assessment & Plan (09/04/2024 4:56 PM EST): -referral placed to Podiatry 04/06/[address] Daniels, he was not happy with with visit. He would like referral to [facility] , new referral placed 09/04/24 Assessment & Plan (04/06/2024 9:55 AM EDT): -referral placed to Podiatry 04/06/2024 Other specified health status 06/03/2023 Overview (03/07/2025): -next physical exam due after 09/04/2025 -eye care facilitated by [facility] -dental home is [facility] in [place]. -healthcare Proxy completed and filed 04/06/2024. Assessment & Plan (09/04/2024 5:02 PM EST): -next physical exam due after 09/04/2025 -eye care facilitated by [facility] -dental home is [facility] in [place]. -healthcare Proxy completed and filed 04/06/2024. Assessment & Plan (04/06/2024 9:51 AM EDT): -next physical exam due after 06/04/2024. -eye care facilitated by [facility]. -dental home is [facility] [place]. -healthcare Proxy completed and filed 04/06/2024. Assessment & Plan (06/04/2023 9:45 AM EDT): -next physical exam due after 06/04/2024. -eye care facilitated by [facility]. -dental home is [facility] [place]. 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 Seen 01/14/25. -Hx of dilated [...] EST): Followed by Sharon Guardado NP-C for [facility]. Seen 05/30/24 -Hx of dilated [...] Overview (03/07/2025): -Followed by Sharon AREVALOC for [facility]. -Known hx of Bicuspid aortic valve without stenosis or regurgitation. Followed by echocardiograms. Last echo 08/25/2023 shows mild calcification of the aortic valve, no regurgitation or stenosis. Repeat echo ordered 2023. -Sharon Guardado NP-C for [facility] 11/2024 Prior notes indicate a [...] Overview (05/31/2024): Followed by Sharon LEWIS for [facility] 05/30/24. History of leg edema [...] for September 2024. GERD (gastroesophageal reflux disease) halfway systemic steroid user 04/06/2023 Osteoporosis 04/06/2023 Overview [...] pharmacomtherapy, [facility] smoking cessation group, and [facility] pharmacy smoking cessation clinic Discussed [...] pharmacomtherapy, [facility] smoking [facility], and [facility] pharmacy smoking cessation clinic Discussed [...] pharmacomtherapy, [facility] smoking cessation group, and [facility] pharmacy smoking cessation clinic Discussed [...] rheumatoid factor 11/20/2022 Overview (03/28/2025): Seen by cloth dyeing range tender Dr. Minnie Santillan 05/23/24 -On Actemra 162 [...] Plan (09/04/2024 5:00 PM EST): Seen by cloth dyeing range tender Dr. Minnie Santillan 05/23/24 -On Actemra 162 [...] Plan (04/06/2024 9:51 AM EDT): Followed by cloth dyeing range tender. 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 If patient is cleared. Will start hydroxychloroquine Continue Rasuvo 25 mg weekly + Actemra every other week. Chest CTA 10/2022 showed no evidence of ILD T-spot and Hepatitis panel -ve 11/2023,. Labs before next visit in 3 months via rheumatology Seen by cloth dyeing range tender Dr. Minnie Santillan 02/23/24 -On Actemra 162 [...] Plan (06/04/2023 9:39 AM EDT): -Followed by cloth dyeing range tender Dr. Fisher. -Currently on prednisone 2 mg daily -med rec to make sure we have correct meds on file -Continue Oxycodone 5mg BID as needed for pain -Did not tolerate Methotrexate, then Leflunomide 20mg daily but then d/c due to rash Assessment & Plan (11/20/2022 10:23 AM EST): -Followed by cloth dyeing range tender Dr. Fisher. -Currently on prednisone 2 mg [...] dilatation measuring 4cm and ascending aorta 4.3cm -Machine Welt Butter Nanette Leonard seen in April 2022. - Now followed by Sharon Guardado NP-C for [facility] -History of leg edema with higher dose amlodipine use. He did have improvement in his swelling when his amlodipine was reduced to 5 mg daily and then discontinued. -echo does show a normal EF, impaired relaxation. He is on hydrochlorothiazide. He is on prednisone which can contribute to some mild edema. -given compression stockings 05/30/24 -Sharon Guardado NP-C for [facility] 11/2024 Hx of dilated ascending [...] dilatation measuring 4cm and ascending aorta 4.3cm Machine [employer] Nanette Leonard seen in April 2022. Followed by Sharon LEWIS for [facility] 05/30/24. History of leg edema [...] dilatation measuring 4cm and ascending aorta 4.3cm [employer] Nanette Leonard seen in April 2022. Assessment [...] dilatation measuring 4cm and ascending aorta 4.3cm [employer] Nanette Leonard seen in April 2022. Assessment [...] dilatation measuring 4cm and ascending aorta 4.3cm Machine [employer] Nanette Leonard seen in April 2022. Currently [...] LDLCHOLCAL 43 10/09/2024 -Marlo/Arb: none ALLERGY TO MAROL -Statin therapy: atorvastatin 40mg -Diabetic eye exam: [...] agreeable with plan to be transported to [facility] via ambulance . Case discussed with provider at [facility] Cutaneous skin tags 05/18/2023 03/30/20 24 [...] 03/30/2024 Candidiasis 11/20/2022 03/30/2024 Overview (11/20/2022): Treated 7/18/22 with fluconazole 1 tab, and clotrimazole cream. [...] Encounters Date Type Department Care Team Description 07/08/2025 Refill [facility] [address] [place] [address] Lisa Liao, GenevaD Hypertension, unspecified type 07/04/2025 Orders Only GENERIC EXTERNAL DATA DEPARTMENT Provider, Generic External Data 06/12/2025 Refill [facility] [address] [place] [address] Loyda Banda, SO Pain 06/12/2025 Telephone [facility] [address] [place] [address] Daisha Crane MD Med Refill 05/15/2025 Refill [facility] [address] [place] [address] Daisha Crane MD Pain 05/15/2025 Refill [facility] [address] [place] [address] Loyda Banda, SO Pain 05/14/2025 11:00 AM EDT Telemedicine [facility] [address] [place] [address] Loyda Banda, RN 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); Primary insomnia; Simple chronic bronchitis ([facility]/HCC) 04/17/2025 Refill [facility] [address] [place] [address] Daisha Crane MD Pain 04/16/2025 Refill [facility] [address] [place] [address] Daisha Crane MD Type 2 diabetes mellitus without complication, without long-term current use of insulin ([facility]); Vitamin D deficiency 04/16/2025 Refill [facility] [address] [place] [address] [facility] Vitamin D deficiency 04/10/2025 Refill [facility] [address] [place] [address] Daisha Crane MD Type 2 diabetes mellitus without complication, without long-term current use of insulin ([facility]) from Last 3 Months Immunizations Immunization [...] 07/20/2025 9:00 AM EDT Clinical Support [facility] [address] [place] [address] Loyda Banda, SO [address] [place], [place] [phone] Health Maintenance Due Date Last Done Comments [...] 2 diabetes mellitus without complication, unspecified whether ad compositor insulin use (CMS/HCC) HEPATITIS PANEL, GENERAL Routine 11/11/2023 10:39 AM EST HM COLONOSCOPY Routine 12/21/2020 from Last 3 Months or Most Recently Relevant to Health Maintenance Results * (ABNORMAL) CBC auto differential (07/04/2025 9:18 AM EDT) White Blood Count 9.5 4.8 - 10.8 X10*3/uL [facility] Red Blood Count 3.94(L) 4.60 - 5.80 X10*6/uL [facility] Hemoglobin 9.4(L) 14.0 - 18.0 g/dl [facility] Hematocrit 32.0(L) 42.0 - 52.0 % [facility] Mean Corpuscular Volume 81.2 80.0 - 98.0 fL [facility] Mean Corpuscular Hemoglobin 23.9(L) 27.0 - 33.0 pg [facility] Mean Corpuscular HGB Conc 29.4(L) 31.0 - 36.0 g/dl [facility] Red Cell Distribution Width 20.6(H) 11.0 - 16.0 % [facility] Platelet Count 219 160 - 400 X10*3/uL [facility] Mean Platelet Volume 10.1 9.4 - 12.4 fL [facility] Neutrophils Percent Auto 55.5 45 - 73 % [facility] Imm Gran Pct Auto 0.4 0.0 - 0.4 % [facility] Lymphocytes Percent Auto 29.0 20 - 40 % [facility] Monocytes Percent Auto 12.8(H) 2 - 11 % [facility] Eosinophils Percent Auto 1.7 0 - 4 % [facility] Basophils Percent Auto 0.6 0 - 2 % [facility] NRBC Pct Auto 0.0 0.0 - 0.2 /100WBC [facility] Neutrophils Absolute Auto 5.2 2.0 - 8.3 x10*3/uL [facility] Imm Gran Abs Auto 0.04(H) 0.00 - 0.03 X10*3/uL [facility] Lymphocytes Absolute Auto 2.7 1.2 - 4.9 X10*3/uL [facility] Monocytes Absolute Auto 1.2 0.1 - 1.2 X10*3/uL [facility] Eosinophils Absolute Auto 0.2 0.0 - 0.4 X10*3/uL [facility] Basophils Absolute Auto 0.1 0.0 - 0.2 X10*3/uL [facility] NRBC Abs Auto 0.000 0.0 - 0.012 X10*3/uL [facility] 07/04/2025 9:18 AM EDT 07/04/2025 9:18 AM EDT us Generic External Data Provider LAB BLOOD ORDERAB LES Final Result Performing Organization Address [facility] Co de Phone Number [facility] [address] [place] [phone] * Sed Rate by Modified Adamaris (07/04/2025 9:18 AM EDT) Erythrocyte Sedimentation Rate 2 0 - 15 MM/HR [facility] Comment:Patients with polycy themia and many hemoglobin abnormalitiesmay have depressed sed rates whereas patients with anemiamay have elevated sed rates. 07/04/2025 9:18 AM EDT 07/04/2025 9:18 AM EDT us Generic External Data Provider LAB BLOOD ORDERAB LES Final Result Performing Organization Address [facility] Co de Phone Number [facility] [address] [place] [phone] * C-reactive Protein (07/04/2025 9:18 AM EDT) C Reactive Protein <0.04 < or = 0.50 mg/dL [facility] 07/04/2025 9:18 AM EDT 07/04/2025 9:18 AM EDT us Generic External Data Provider LAB BLOOD ORDERAB LES Final Result Performing Organization Address [facility] Co de Phone Number [facility] [address] [place] [phone] * (ABNORMAL) Lipid Panel, Standard (07/04/2025 9:18 AM EDT) Triglycerides 130 <150 mg/dL [facility] Comment:Desirable Triglyceri de: less than 150 mg/dLBorderline High Triglyceride 150-199 mg/dLHigh Triglyceride: 200-499 mg/dLVery High Triglyceride: greater than or equal to 5OO mg/dL Cholesterol 97 <200 mg/dL [facility] Comment:Desirable Cholestero l: less than 200 mg/dLBorderline High Cholesterol: 200-239 mg/dLHigh Cholesterol: greater than 239 mg/dL LDL Cholesterol Calculated 36 <100 mg/dL [facility] Comment:Desirable LDL: less than 100 mg/dLNear Optimal/Above Optimal LDL: 110- 129 mg/dLBorderline High LDL: 130-159 mg/dLHigh LDL: 160-189 mg/dLVery High LDL: greater than or equal to 190 mg/dL HDL Cholesterol 35(L) >40 mg/dL [facility] Comment:Desirable HDL: great er than 40 mg/dL Note: This HDL assay may give artificially low results in patients with liver disease. 07/04/2025 9:18 AM EDT 07/04/2025 9:18 AM EDT us Generic External Data Provider LAB BLOOD ORDERAB LES Final Result [facility] [address] [place] [phone] * (ABNORMAL) Comprehensive Metabolic Panel (07/04/2025 9:18 AM EDT) Sodium 138 135 - 145 mmol/L [facility] Potassium 3.6 3.3 - 5.1 mmol/L [facility] Comment:Slight Hemolysis.Int erpret result with caution. Chloride 104 96 - 108 mmol/L [facility] Carbon Dioxide 24 22 - 29 mmol/L [facility] Anion Gap 14 12 - 20 [facility] Urea Nitrogen (BUN) 12 9 - 16 mg/dL [facility] Creatinine, Serum 0.74 0.5 - 1.4 mg/dL [facility] Estimated Glomerular Filt Rate >60 [facility] Comment:Chronic Kidney Disea se: Estimated GFR < 60 mL/min/1.07y8Peazaf Kidney Disease: Estimated GFR < 15 mL/min/1.73m2 Glucose 94 60 - 115 mg/dL [facility] Calcium 9.6 8.4 - 10.2 mg/dL [facility] Bilirubin, Total 0.8 0.0 - 1.0 mg/dL [facility] Aspartate Amino Transferase 38(H) 5 - 37 U/L [facility] Comment:Slight Hemolysis.Int erpret result with caution. Alanine Aminotransferase 25 0 - 40 U/L [facility] Total Protein 6.6 6.5 - 8.0 g/dL [facility] Albumin Level 4.5 3.5 - 5.0 g/dL [facility] Alkaline Phosphatase 54 39 - 117 U/L [facility] 07/04/2025 9:18 AM EDT 07/04/2025 9:18 AM EDT us Generic External Data Provider LAB BLOOD ORDERAB LES Final Result [facility] [address] [place] [phone] * (ABNORMAL) POCT glycosylated hemoglobin (Hgb A1c) (03/07/2025 10:40 AM EDT) Hemoglobin A1C 6.4(A) 4.0 - 6.0 % QC Media Lot # [id number] Lot# Expiration Date Blood Capillary blood specimen / Unknown 03/07/2025 10:40 AM EDT us Daisha Crane MD POINT OF CARE TEST ENTER/E DIT ORDERABLES Final Result * Albumin, Random Urine W/Creatinine (09/15/2024 8:03 AM EST) Creatinine, Urine 107.16 mg/dL [facility] Microalbumin Urine 20.0 mg/L [facility] Microalbum Creatinine Ratio Ur 18.6 <30 ug/mg cr [facility] Comment:Albumin/Creatinine R atio Reference Ranges: Normal: < 30 ug/mg creatinine Microalbuminuria: 30 - 300 ug/mg creatinineClinical Albuminuria: > 300 ug/mg creatinine Urine 09/15/2024 8:03 AM EST 09/15/2024 11:09 AM EST Daisha Crane MD LAB URINE ORDERABLES Final Result Performing Organization Address City/[facility]/ZIP Co de Phone Number [facility] [address] [place] [address] [phone] * Hepatitis Panel, General (11/11/2023 10:39 AM EST) Hepatitis A IgM Nonreactive Nonreactive [facility] Comment:IgM antibodies to WAGONER V not detected; does not exclude earlyacute or recovered HAV infection. ~Hepatitis B Surface Antibody NONREACTIVE Nonreactive [facility] Comment:Nonreactive: < 8.00 mIU/mL Hepatitis B Core Antibody Nonreactive Nonreactive [facility] Hepatitis C Antibody Nonreactive Nonreactive [facility] Comment:Antibodies to HCV no t detected; does not exclude early acuteHCV infection. Hepatitis B Surface Ag Negative Negative [facility] 11/11/2023 10:3 9 AM EST 11/11/2023 10:39 AM EST us Generic External Data Provider LAB BLOOD ORDERAB LES Final Result [facility] [address] [place] [address] [phone] * Colonoscopy (12/21/2020) Colonoscopy tubular adenoma with Dr. Rodríguez Historical Provider HEALTH MAINTENANCE Final Result from Last 3 Months or Most Recently Relevant to Health Maintenance Insurance [facility] [place] [facility] ALF OPTIONS (HMO D-SNP) [facility] STANDARD * Guarantor: Patrice Jenkins Account Type Relation to Patient Date of Phone Billing Address Personal/Family Self [address] [facility] [place] Advance Directives Documents on File Type Date Recorded Patient Hooker Up Expl anation Advance Directives and Living Will 04/06/2024 Health Care Proxy 04/06/24 Care Teams Rod And Tube Straightener Relationship Specialty Start Date End Date Andrews, MD Daisha [address] [place] [address] PCP - General Family Medicine 11/01/18 Alissa Santillan MD [address] [place] [address] Rheumatology 11/09/24 Sharon Guardado [address] [place] [address] Cardiology 11/13/24 Cedric Lujan MD [address] [place] [address] Orthopaedic Surgery 11/23/24 Rory Angeles MD [address] [place] [address] Pain Medicine 02/06/25 Jairon Crawford OD [facility] [address] [place] [address] Optometry 03/07/25 Laura Velarde MD Rheumatology 03/28/25
--- OUTSIDE RECORDS SUMMARY | 2025-07-10 10:07 | XMS_ITS | Encounter Summary ---
Author Organization [employer] Address [address] [facility] [address] [place] [address] Care Team Providers Care Greens Planter Name Role Phone Daisha Crane MD Primary Care Provider [phone] Lisa Liao PharmD Unavailable Alissa Santillan MD Unavailable Sharon Guardado Unavailable Cedric Lujan MD Unavailable Rory Angeles MD Unavailable Jairon Crawford OD Unavailable Reason for Visit * Reason Onset Date Comments Med Refill 06/05/2024 Encounter Details Date Type Department Care Team (Late st Contact Info) Description 06/05/2024 Telephone [facility] [address] [place], [place] [phone] Daisha Crane MD [address] [place], [place] [phone] Med Refill Social History Tobacco Use Types [...] immediate release tablet To be sent to: [facility] - [place], [place] - [address] [place] [address] documented in this encounter Plan of Treatment Upcoming Encounters Date Type Department Care Team (Late st Contact Info) Description 07/20/2025 9:00 AM EDT Clinical Support [facility] [address] [place] [address] Loyda Banda RN [address] [place], [place] [phone] documented as of this encounter Goals Goal Patient Goal Type Associated Problems Recent Progress Patient-Stated? Author Blood Pressure < 140/90 Blood Pressure 129/69(2024 10:12 AM EDT) No Piers-Gambl e, Lisa, PharmD Hemoglobin A1c < 8 Result Component 6.4( 5 10:40 AM EDT) No Lisa Anguaino, PharmD documented as of this encounter Visit Diagnoses Not on filedocumented in this encounter Additional Health Concerns Assessment Noted Time PHQ-9 Depression Total Score: 0 04/06/20 24 9:11 AM EDT documented as of this encounter Care Teams Greens Planter Relationship Specialty Start Date End Date Daisha Crane MD [address] [place] [address] PCP - General Family Medicine 11/01/18 Lisa Liao, PharmD [address] [place] [phone] Pharmacist Internal Medicine 04/06/23 02/02/25 Alissa Santillan MD [address] [place] [address] Rheumatology 11/09/24 Sharon Guardado [address] [place] [address] Cardiology 11/13/24 Cedric Lujan MD [address] [place] [address] Orthopaedic Surgery 11/23/24 Rory Angeles MD [address] [place] [address] Pain Medicine 02/06/25 Jairon Crawford OD [facility] [address] [place] [address] Optometry 03/07/25 Laura Velarde MD Rheumatology 03/28/25 documented as of this encounter
--- OUTSIDE RECORDS SUMMARY | 2025-07-10 10:07 | XMS_ITS | Encounter Summary ---
Author Organization [employer] Address [address] [place] [address] 7t [place] [address] Care Team Providers Care Manager Office Services Name Role Phone Daisha Crane MD Primary Care Provider +1- [phone] Lisa Liao PharmD Unavailable Alissa Santillan MD Unavailable Sharon Guardado Unavailable Cedric Lujan MD Unavailable Rory Angeles MD Unavailable Jairon Crawford OD Unavailable Reason for Visit * Reason Comments Med Refill Encounter Details Date Type Department Care Team (Late st Contact Info) Description 07/21/2023 Refill [facility] 230 [place], [place] [phone] Daisha Crane MD 230 [place], [place] [phone] Pulmonary emphysema, unspecified emphysema type (CMS/HCC) (Primary [...] Description 07/20/2025 9:00 AM EDT Clinical Support [facility] 230 [facility] [place] [address] Loyda Banda RN 505 [place] [address] documented as of this encounter Goals Goal [...] as of this encounter Care Teams Manager Office Services Relationship Specialty Start Date End Date Daisha Crane MD 230 [place] [address] PCP - General Family Medicine 11/01/18 Lisa Liao, PharmD 230 [place] [address] Pharmacist Internal Medicine 04/06/23 02/02/25 Alissa Santillan MD [address] [place] [address] Rheumatology 11/09/24 Sharon Guardado [address] 3rd [place] [address] Cardiology 11/13/24 Cedric Lujan MD [address] [place] [address] Orthopaedic Surgery 11/23/24 Rory Angeles MD [address] [place] [address] Pain Medicine 02/06/25 Jairon Crawford OD [facility] [address] [place] [address] Optometry 03/07/25 Laura Velarde MD Rheumatology 03/28/25 documented as of this encounter
--- OUTSIDE RECORDS SUMMARY | 2025-07-10 10:08 | XMS_ITS | Encounter Summary ---
Author Organization [employer] Address 75 [facility] 7t [place] [address] Care Team Providers Care Stock Saw Operator Name Role Phone Daisha Crane MD Primary Care Provider +1- [phone] Lisa Liao PharmD Unavailable Alissa Santillan MD Unavailable Sharon Guardado Unavailable Cedric Lujan MD Unavailable Rory Angeles MD Unavailable Jairon Crawford OD Unavailable Encounter Details Date Type Department Care Team (Late st Contact Info) Description 12/08/2022 Abstract [facility] 230 [place], [place] [phone] Daisha Crane MD 230 [place], [place] [phone] Social History Tobacco Use Types Packs/Day Years [...] 07/20/2025 9:00 AM EDT Clinical Support [facility] 230 [place] [address] Loyda Banda, RN 505 [place] [address] documented as of this encounter Procedures Procedure [...] documented as of this encounter Care Teams Stock Saw Operator Relationship Specialty Start Date End Date Daisha Crane MD 230 [place] [address] PCP - General Family Medicine 11/01/18 Lisa Liao PharmD 230 [place] [address] Pharmacist Internal Medicine 04/06/23 02/02/25 Alissa Santillan MD [address] [place] [address] Rheumatology 11/09/24 Sharon Guardado [address] 3rd [place] [address] Cardiology 11/13/24 Cedric Lujan MD [address] [place] [address] Orthopaedic Surgery 11/23/24 Rory Angeles MD [address] [place] [address] Pain Medicine 02/06/25 Jairon Crawford OD [facility] [address] [place] [address] Optometry 03/07/25 Laura Velarde MD Rheumatology 03/28/25 documented as of this encounter
--- OUTSIDE RECORDS SUMMARY | 2025-07-10 10:08 | XMS_ITS | Encounter Summary ---
Author Organization [employer] Address 75 [facility] 7t [place] [address] Care Team Providers Care Division Supervisor Name Role Phone Daisha Crane MD Primary Care Provider + [phone] Lisa Liao PharmD Unavailable Alissa Santillan MD Unavailable Sharon Guardado Unavailable Cedric Lujan MD Unavailable Rory Angeles MD Unavailable Jairon Crawford OD Unavailable Encounter Details Date Type Department Care Team (Late st Contact Info) Description 03/15/2023 Orders Only [facility] 505 [place], [place] [phone] Jenn Polk LPN Social History Tobacco Use [...] 07/20/2025 9:00 AM EDT Clinical Support [facility] MED[facility]INE 230 [place] [address] Loyda Banda, SO 505 [place] [address] documented as of this encounter Visit Diagnoses Not on filedocumented in this encounter Additional Health Concerns Assessment Noted Time PHQ-9 Depression Total Score: 0 11/23/19 10:39 AM EST documented as of this encounter Care Teams Division Supervisor Relationship Specialty Start Date End Date Daisha Crane MD 230 [place] [address] PCP - General Family Medicine 11/01/18 Lisa Liao, GenevaD [address] [place] [address] Pharmacist Internal Medicine 04/06/23 02/02/25 Alissa Santillan MD [address] [place] [address] Rheumatology 11/09/24 Sharon Guardado [address] 3rd [place] [address] Cardiology 11/13/24 Cedric Lujan MD [address] [place] [address] Orthopaedic Surgery 11/23/24 Rory Angeles MD [address] [place] [address] Pain Medicine 02/06/25 Jairon Crawford OD [facility] [address] [place] [address] Optometry 03/07/25 Laura Velarde MD Rheumatology 03/28/25 documented as of this encounter
--- OUTSIDE RECORDS SUMMARY | 2025-07-10 10:08 | XMS_ITS | Encounter Summary ---
Author Organization [employer] Address 75 [facility] 7t [place] [address] Care Team Providers Care Nailing Machine Operator Name Role Phone Daisha Crane MD Primary Care Provider + [phone] Lisa Liao PharmD Unavailable [phone] Alissa Santillan MD Unavailable Sharon Guardado Unavailable Cedric Lujan MD Unavailable Rory Angeles MD Unavailable Jairon Crawford OD Unavailable Encounter Details Date Type Department Care Team (Late st Contact Info) Description 03/05/2023 Orders Only [facility] MEDICINE [address] [place] [address] [phone] Radha Johnson LPN Social History Tobacco Use [...] 07/20/2025 9:00 AM EDT Clinical Support [facility] MEDICINE [address] [place] [address] Loyda Banda, RN 505 [place] [address] documented as of this encounter Visit Diagnoses Not on filedocumented in this encounter Additional Health Concerns Assessment Noted Time PHQ-9 Depression Total Score: 0 11/23/19 10:39 AM EST documented as of this encounter Care Teams Nailing Machine Operator Relationship Specialty Start Date End Date Daisha Crane MD 230 [place] [address] PCP - General Family Medicine 11/01/18 Lisa Liao, GenevaD 230 [place] [address] Pharmacist Internal Medicine 04/06/23 02/02/25 Alissa Santillan MD [address] [place] [address] Rheumatology 11/09/24 Sharon Guardado [address] 3rd [place] [address] Cardiology 11/13/24 Cedric Lujan MD [address] [place] [address] Orthopaedic Surgery 11/23/24 Rory Angeles MD [address] [place] [address] Pain Medicine 02/06/25 Jairon Crawford OD [facility] [address] [place] [address] Optometry 03/07/25 Laura Velarde MD Rheumatology 03/28/25 documented as of this encounter
--- OUTSIDE RECORDS SUMMARY | 2025-07-10 10:08 | XMS_ITS | Encounter Summary ---
Author Organization [employer] Address 75 [facility] 7t [place] [address] Care Team Providers Care Cryptographic Vulnerability Analyst Name Role Phone Daisha Crane MD Primary Care Provider +1- [phone] Lisa Liao PharmD Unavailable Alissa Santillan MD Unavailable Sharon Guardado Unavailable Cedric Lujan MD Unavailable Rory Angeels MD Unavailable Jairon Crawford OD Unavailable Reason for Visit * Reason Comments Med Refill Encounter Details Date Type Department Care Team (Late st Contact Info) Description 09/03/2023 Refill [facility] MEDICINE 230 [place], [place] [phone] Key Gregory MD 230 [place], [place] [phone] Tinea versicolor Social History Tobacco Use Types [...] Description 07/20/2025 9:00 AM EDT Clinical Support [facility] MEDICINE 230 [place] [address] Loyda Banda RN 505 [place] [address] documented as of this encounter Goals Goal [...] documented as of this encounter Care Teams Cryptographic Vulnerability Analyst Relationship Specialty Start Date End Date Daisha Crane MD 230 [place] [address] PCP - General Family Medicine 11/01/18 Lisa Liao, Nidia 230 [place] [address] Pharmacist Internal Medicine 04/06/23 02/02/25 Alissa Santillan MD [address] [place] [address] Rheumatology 11/09/24 Sharon Guardado [address] 3rd [place] [address] Cardiology 11/13/24 Cedric Lujan MD [address] [place] [address] Orthopaedic Surgery 11/23/24 Rory Angeles MD [address] [place] [address] Pain Medicine 02/06/25 Jairon Crawford OD [facility] [address] [place] [address] Optometry 03/07/25 Laura Velarde MD Rheumatology 03/28/25 documented as of this encounter
--- OUTSIDE RECORDS SUMMARY | 2025-07-10 10:08 | XMS_ITS | Encounter Summary ---
Author Organization [employer] Address 75 [facility] 7t [place] [address] Care Team Providers Care Reverse Logistics Analyst Name Role Phone Daisha Crane MD Primary Care Provider +1- [phone] Lisa Liao PharmD Unavailable Alissa Santillan MD Unavailable Sharon Guardado Unavailable Cedric Lujan MD Unavailable Rory Angeles MD Unavailable Jairon Crawford OD Unavailable Reason for Visit * Reason Comments Med Refill Encounter Details Date Type Department Care Team (Late st Contact Info) Description 02/06/2024 Refill [facility] 230 [place], [place] [phone] Lisa Liao, PharmD 230 [place], [place] [phone] Social History Tobacco Use Types Packs/Day Years [...] 9:00 AM EDT Clinical Support [facility] MED[facility]INE [address] [place] [address] Loyda Banda RN 505 [place], [place] [phone] documented as of this encounter Goals Goal [...] documented as of this encounter Care Teams Reverse Logistics Analyst Relationship Specialty Start Date End Date Daisha Crane MD 230 [place] [address] PCP - General Family Medicine 11/01/18 Lisa Liao, GenevaD 230 [place] [address] Pharmacist Internal Medicine 04/06/23 02/02/25 Alissa Santillan MD [address] [place] [address] Rheumatology 11/09/24 Sharon Guardado [address] 3rd [place] [address] Cardiology 11/13/24 Cedric Lujan MD [address] [place] [address] Orthopaedic Surgery 11/23/24 Rory Angeles MD [address] [place] [address] Pain Medicine 02/06/25 Jairon Crawford OD [facility] [address] [place] [address] Optometry 03/07/25 Laura Velarde MD Rheumatology 03/28/25 documented as of this encounter
--- OUTSIDE RECORDS SUMMARY | 2025-07-10 10:08 | XMS_ITS | Encounter Summary ---
Author Organization [employer] Address 75 [facility] 7t [place] [address] Care Team Providers Care Fisher Trawl Line Name Role Phone Daisha Crane MD Primary Care Provider +1- [phone] Lisa Liao PharmD Unavailable Alissa Santillan MD Unavailable Sharon Guardado Unavailable Cedric Lujan MD Unavailable Rory Angeles MD Unavailable Jairon Crawford OD Unavailable Reason for Visit * Reason Comments Med Refill Encounter Details Date Type Department Care Team (Late st Contact Info) Description 08/31/2023 Refill [facility] MEDICINE 230 [place], [place] [phone] Key Gregory MD 230 [place], [place] [phone] Tinea versicolor Social History Tobacco Use Types [...] 07/20/2025 9:00 AM EDT Clinical Support [facility] MEDICINE 230 [place] [address] Loyda Banda RN 505 [place] [address] documented as of this encounter Goals Goal [...] as of this encounter Care Teams Fisher Trawl Line Relationship Specialty Start Date End Date Daisha Crane MD 230 [place] [address] PCP - General Family Medicine 11/01/18 Lisa Liao, Nidia 230 [place] [address] Pharmacist Internal Medicine 04/06/23 02/02/25 Alissa Santillan MD [address] [place] [address] Rheumatology 11/09/24 Sharon Guardado [address] 3rd [place] [address] Cardiology 11/13/24 Cedric Lujan MD [address] [place] [address] Orthopaedic Surgery 11/23/24 Rory Angeles MD [address] [place] [address] Pain Medicine 02/06/25 Jairon Crawford OD [facility] [address] [place] [address] Optometry 03/07/25 Laura Velarde MD Rheumatology 03/28/25 documented as of this encounter
--- OUTSIDE RECORDS SUMMARY | 2025-07-10 10:08 | XMS_ITS | Encounter Summary ---
Author Organization [employer] Address 75 [facility] 7t [place] [address] Care Team Providers Care Cloth Beamer Name Role Phone Daisha Crane MD Primary Care Provider + [phone] Lisa Liao PharmD Unavailable [phone] Alissa Santillan MD Unavailable Sharon Guardado Unavailable Cedric Lujan MD Unavailable Rory Angeles MD Unavailable Jairon Crawford OD Unavailable Encounter Details Date Type Department Care Team (Late st Contact Info) Description 10/22/2022 Orders Only [facility] 230 [place], [place] [phone] Radha Johnson LPN Social History Tobacco Use [...] EDT Clinical Support [facility] 230 [place], [place] [phone] Loyda Banda RN 505 [place], [place] [phone] documented as of this encounter Visit Diagnoses Not on filedocumented in this encounter Care Teams Cloth Beamer Relationship Specialty Start Date End Date Daisha Crane MD 230 [place] [address] PCP - General Family Medicine 11/01/18 Lisa Liao, GenevaD 230 [place] [address] Pharmacist Internal Medicine 04/06/23 02/02/25 Alissa Santillan MD [address] [place] [address] Rheumatology 11/09/24 Sharon Guardado [address] 3rd [place] [address] Cardiology 11/13/24 Cedric Lujan MD [address] [place] [address] Orthopaedic Surgery 11/23/24 Rory Angeles MD [address] [place] [address] Pain Medicine 02/06/25 Jairon Crawford OD [facility] [address] [place] [address] Optometry 03/07/25 Laura Velarde MD Rheumatology 03/28/25 documented as of this encounter
--- OUTSIDE RECORDS SUMMARY | 2025-07-10 10:08 | XMS_ITS | Encounter Summary ---
Author Organization [employer] Address 75 [facility] 7t [place] [address] Care Team Providers Care Foreign Collection Clerk Name Role Phone Daisha Crane MD Primary Care Provider +1- [phone] Lisa Liao PharmD Unavailable Alissa Santillan MD Unavailable Sharon Guardado Unavailable Cedric Lujan MD Unavailable Rory Angeles MD Unavailable Jairon Crawford OD Unavailable Encounter Details Date Type Department Care Team (Late st Contact Info) Description 10/28/2022 Telephone [facility] MEDICINE [address] [place] [address] [phone] Daisha Crane MD 230 [place], [place] [phone] Social History Tobacco Use Types Packs/Day Years [...] 07/20/2025 9:00 AM EDT Clinical Support [facility] MEDICINE [address] [place] [address] [phone] Loyda Banda, RN 505 [place] [address] documented as of this encounter Visit Diagnoses Not on filedocumented in this encounter Care Teams Foreign Collection Clerk Relationship Specialty Start Date End Date Daisha Crane MD 230 [place] [address] PCP - General Family Medicine 11/01/18 Lisa Liao, GenevaD 230 [place] [address] Pharmacist Internal Medicine 04/06/23 02/02/25 Alissa Santillan MD [address] [place] [address] Rheumatology 11/09/24 Sharon Guardado [address] 3rd [place] [address] Cardiology 11/13/24 Cedric Lujan MD [address] [place] [address] Orthopaedic Surgery 11/23/24 Rory Angeles MD [address] [place] [address] Pain Medicine 02/06/25 Jairon Crawford OD [facility] [address] [place] [address] Optometry 03/07/25 Laura Velarde MD Rheumatology 03/28/25 documented as of this encounter
--- OUTSIDE RECORDS SUMMARY | 2025-07-10 10:08 | XMS_ITS | Encounter Summary ---
Author Organization [employer] Address 75 [facility] 7t [place] [address] Care Team Providers Care Mill Stenciler Name Role Phone Daisha Crane MD Primary Care Provider +1- [phone] Alissa Santillan MD Unavailable Sharon Guardado Unavailable Cedric Lujan MD Unavailable Rory Angeles MD Unavailable Jairon Crawford OD Unavailable Reason for Visit * Reason Onset Date Comments Med Refill 03/23/2025 Encounter Details Date Type Department Care Team (Late st Contact Info) Description 03/23/2025 Telephone [facility] MED[facility]INE 230 [place], [place] [phone] Daisha Crane MD 230 [place], [place] [phone] Med Refill Social History Tobacco Use Types [...] immediate release tablet To be sent to: [facility] - [place], [place] - [address] [facility] documented in this encounter Plan of Treatment Upcoming Encounters Date Type Department Care Team (Late st Contact Info) Description 07/20/2025 9:00 AM EDT Clinical Support [facility]INE 230 [place] [address] Loyda Banda, SO 505 [place] [address] documented as of this encounter Goals Goal [...] documented as of this encounter Care Teams Mill Stenciler Relationship Specialty Start Date End Date Daisha Crane MD [address] [place] [address] PCP - General Family Medicine 11/01/18 Alissa Sanitllan MD [address] [place] [address] Rheumatology 11/09/24 Sharon Guardado [address] 3rd [place] [address] Cardiology 11/13/24 Cedric Lujan MD [address] [place] [address] Orthopaedic Surgery 11/23/24 Rory Angeles MD [address] [place] [address] Pain Medicine 02/06/25 Jairon Crawford OD [facility] [address] [place] [address] Optometry 03/07/25 Laura Velarde MD Rheumatology 03/28/25 documented as of this encounter
--- OUTSIDE RECORDS SUMMARY | 2025-07-10 10:08 | XMS_ITS | Encounter Summary ---
Author Organization [employer] Address [address] [place] [address] 7t [place] [address] Care Team Providers Care Meat Cooler Name Role Phone Daisha Crane MD Primary Care Provider +1- [phone] Lisa Liao PharmD Unavailable Alissa Santillan MD Unavailable Sharon Guardado Unavailable Cedric Lujan MD Unavailable Rory Angeles MD Unavailable Jairon Crawford OD Unavailable Reason for Visit * Reason Onset Date Comments Med Refill 06/07/2023 Encounter Details Date Type Department Care Team (Late st Contact Info) Description 06/07/2023 Telephone [facility] MEDICINE 230 [place], [place] [phone] Hiram Palma MD 230 [place], [place] [phone] Med Refill Social History Tobacco Use Types [...] MG immediate release tablet Please sent to [facility] - [place], [place] - [address] [place] [address] documented in this encounter Plan of Treatment Upcoming Encounters Date Type Department Care Team (Late st Contact Info) Description 07/20/2025 9:00 AM EDT Clinical Support [facility] MEDICINE 230 [place] [address] Loyda Banda RN 505 [place] [address] documented as of this encounter Goals Goal [...] documented as of this encounter Care Teams Meat Cooler Relationship Specialty Start Date End Date Daisha Crane MD 230 [place] [address] PCP - General Family Medicine 11/01/18 Lisa Liao, PharmD 230 [place] [address] Pharmacist Internal Medicine 04/06/23 02/02/25 Alissa Santillan MD [address] [facility] [address] [place] [address] Rheumatology 11/09/24 Sharon Guardado [address] 3rd [place] [address] Cardiology 11/13/24 Cedric Lujan MD [address] [place] [address] Orthopaedic Surgery 11/23/24 Rory Angeles MD [address] [place] [address] Pain Medicine 02/06/25 Jairon Crawford OD [facility] [address] [place] [address] Optometry 03/07/25 Laura Velarde MD Rheumatology 03/28/25 documented as of this encounter
--- OUTSIDE RECORDS SUMMARY | 2025-07-10 10:08 | XMS_ITS | Encounter Summary ---
Author Organization [employer] Address 75 [facility] 7t [place] [address] Care Team Providers Care Business Law Professor Name Role Phone Daisha Crane MD Primary Care Provider +1- [phone] Lisa Liao PharmD Unavailable +[phone] Alissa Santillan MD Unavailable Sharon Guardado Unavailable Cedric Lujan MD Unavailable Rory Angeles MD Unavailable Jairon Crawford OD Unavailable Encounter Details Date Type Department Care Team (Late st Contact Info) Description 10/14/2022 [facility] Only [facility] 230 [place], [place] [phone] Daisha Crane MD 230 [place], [place] [phone] Social History Tobacco Use Types Packs/Day Years [...] 9:00 AM EDT Clinical Support [facility] MEDICINE 230 [place], [place] [phone] Loyda Banda, RN 505 [place] [address] documented as of this encounter Visit Diagnoses Not on filedocumented in this encounter Care Teams Business Law Professor Relationship Specialty Start Date End Date Daisha Crane MD 230 [place] [address] PCP - General Family Medicine 11/01/18 Lisa Liao, GenevaD 230 [place] [address] Pharmacist Internal Medicine 04/06/23 02/02/25 Alissa Santillan MD [address] [place] [address] Rheumatology 11/09/24 Sharon Guardado [address] 3rd [place] [address] Cardiology 11/13/24 Cedric Lujan MD [address] [place] [address] Orthopaedic Surgery 11/23/24 Rory Angeles MD [address] [place] [address] Pain Medicine 02/06/25 Jairon Crawford OD [facility] [address] [address] Optometry 03/07/25 Laura Velarde MD Rheumatology 03/28/25 documented as of this encounter
--- OUTSIDE RECORDS SUMMARY | 2025-07-10 10:08 | XMS_ITS | Encounter Summary ---
Author Organization [email or web address] Address 75 [facility] 7t [place] [address] Care Team Providers Care Refrigeration Service Inspector Name Role Phone Daisha Crane MD Primary Care Provider +1- [phone] Alissa Santillan MD Unavailable Sharon Guardado Unavailable Cedric Lujan MD Unavailable Rory Angeles MD Unavailable Jairon Crawford OD Unavailable Reason for Visit * Reason Comments Med Refill Encounter Details Date Type Department Care Team (Late st Contact Info) Description 05/15/2025 Refill [facility] PEDS [address] [place], [place] [phone] Daisha Crane MD 230 [place], [place] [phone] Pain Social History Tobacco Use Types Packs/Day [...] Description 07/20/2025 9:00 AM EDT Clinical Support [facility] MEDICINE [address] [place] [address] Loyda Banda RN 505 [place] [address] documented as of this encounter Goals Goal [...] documented as of this encounter Care Teams Refrigeration Service Inspector Relationship Specialty Start Date End Date Daisha Crane MD 230 [place] [address] PCP - General Family Medicine 11/01/18 Alissa Santillan MD [address] [place] [address] Rheumatology 11/09/24 Sharon Guardado [address] 3rd [place] [address] Cardiology 11/13/24 Cedric Lujan MD [address] [place] [address] Orthopaedic Surgery 11/23/24 Rory Angeles MD [address] [place] [address] Pain Medicine 02/06/25 Jairon Crawford OD [facility] [address] [place] [address] Optometry 03/07/25 Laura Velarde MD Rheumatology 03/28/25 documented as of this encounter
--- OUTSIDE RECORDS SUMMARY | 2025-07-10 10:08 | XMS_ITS | Encounter Summary ---
Author Organization [employer] Address [address] [place] [address] 7t [place] [address] Care Team Providers Care Parimutuel Clerk Name Role Phone Daisha Crane MD Primary Care Provider +1- [phone] Lisa Liao PharmD Unavailable Alissa Santillan MD Unavailable Sharon Guardado Unavailable Cedric Lujan MD Unavailable Rory Angeles MD Unavailable Jairon Crawford OD Unavailable Encounter Details Date Type Department Care Team (Late st Contact Info) Description 06/01/[address] [facility] [address] [place], [place] [phone] Diasha Crane MD 230 [place], [place] [phone] Social History Tobacco Use Types Packs/Day Years [...] 07/20/2025 9:00 AM EDT Clinical Support [facility] 230 [place] [address] Loyda Banda RN [address] [place] [address] documented as of this encounter Goals Goal [...] documented as of this encounter Care Teams Parimutuel Clerk Relationship Specialty Start Date End Date Daisha Crane MD 230 [place] [address] PCP - General Family Medicine 11/01/18 Lisa Liao, PharmD 230 [place] [address] Pharmacist Internal Medicine 04/06/23 02/02/25 Alissa Santillan MD [address] [place] [address] Rheumatology 11/09/24 Sharon Guardado [address] 3rd [place] [address] Cardiology 11/13/24 Cedric Lujan MD [address] [place] [address] Orthopaedic Surgery 11/23/24 Rory Angeles MD [address] [place] [address] Pain Medicine 02/06/25 Jairon Crawford, [facility] [address] [place] [address] Optometry 03/07/25 Laura Velarde MD Rheumatology 03/28/25 documented as of this encounter
--- OUTSIDE RECORDS SUMMARY | 2025-07-10 10:08 | XMS_ITS | Encounter Summary ---
Author Organization [employer] Address [address] [facility] 7t [place] [address] Care Team Providers Care Skidway Worker Name Role Phone Daisha Crane MD Primary Care Provider +1- [phone] Alissa Santillan MD Unavailable Sharon Guardado Unavailable Cedric Lujan MD Unavailable Rory Angeles MD Unavailable Jairon Crawford OD Unavailable Reason for Visit * Reason Onset Date Comments Med Refill 06/12/2025 Encounter Details Date Type Department Care Team (Late st Contact Info) Description 06/12/2025 Telephone [facility] 230 [place], [place] [phone] Daisha Crane MD 230 [place], [place] [phone] Med Refill Social History Tobacco Use Types [...] release tablet To be sent to: [facility] - [place], [place] - 230 [facility] documented in this encounter Plan of Treatment Upcoming Encounters Date Type Department Care Team (Late st Contact Info) Description 07/20/2025 9:00 AM EDT Clinical Support [facility] 230 [place] [address] Loyda Banda, SO 505 [place] [address] documented as of this encounter Goals Goal [...] documented as of this encounter Care Teams Skidway Worker Relationship Specialty Start Date End Date Daisha Crane MD [address] [place] [address] PCP - General Family Medicine 11/01/18 Alissa Santillan MD [address] [place] [address] Rheumatology 11/09/24 Sharon Guardado [address] 3rd [place] [address] Cardiology 11/13/24 Cedric Lujan MD [address] [place] [address] Orthopaedic Surgery 11/23/24 Rory Angeles MD [address] [place] [address] Pain Medicine 02/06/25 Jairon Crawford [facility] [address] [place] [address] Optometry 03/07/25 Laura Velarde MD Rheumatology 03/28/25 documented as of this encounter
--- OUTSIDE RECORDS SUMMARY | 2025-07-10 10:08 | XMS_ITS | Encounter Summary ---
Author Organization [employer] Address 75 [facility] 7t [place] [address] Care Team Providers Care Furniture Painter Name Role Phone Daisha Crane MD Primary Care Provider +1- [phone] Lisa Liao PharmD Unavailable Alissa Santillan MD Unavailable Sharon Guardado Unavailable Cedric Lujan MD Unavailable Rory Angeles MD Unavailable Jairon Crawford OD Unavailable Encounter Details Date Type Department Care Team (Late st Contact Info) Description 11/18/[address] [facility] MED[facility]INE 230 [place], [place] [phone] Daisha Crane MD 230 [place], [place] [phone] Social History Tobacco Use Types Packs/Day Years [...] AM EDT Clinical Support [facility] 230 [place] [address] Loyda Banda RN 505 [place] [address] documented as of this encounter Goals Goal [...] documented as of this encounter Care Teams Furniture Painter Relationship Specialty Start Date End Date Daisha Crane MD [address] [place] [address] PCP - General Family Medicine 11/01/18 Lisa Liao, PharmD 230 [place] [address] Pharmacist Internal Medicine 04/06/23 02/02/25 Alissa Santillan MD [address] [place] [address] Rheumatology 11/09/24 Sharon Guardado [address] 3rd [place] [address] Cardiology 11/13/24 Cedric Lujan MD [address] [place] [address] Orthopaedic Surgery 11/23/24 Rory Angeles MD [address] [place] [address] Pain Medicine 02/06/25 Jairon Crawford OD [facility] [address] [place] [address] Optometry 03/07/25 Laura Velarde MD Rheumatology 03/28/25 documented as of this encounter
--- OUTSIDE RECORDS SUMMARY | 2025-07-10 10:08 | XMS_ITS | Encounter Summary ---
Author Organization [employer] Address [address] [facility] 7t [place] [address] Care Team Providers Care Sole Leveler Name Role Phone Daisha Crane MD Primary Care Provider +1- [phone] Lisa Liao PharmD Unavailable Alissa Santillan MD Unavailable Sharon Guardado Unavailable Cedric Lujan MD Unavailable Rory Angeles MD Unavailable Jairon Crawford OD Unavailable Reason for Visit * Reason Comments Med Refill Encounter Details Date Type Department Care Team (Late st Contact Info) Description 02/07/2024 Refill [facility] MED[facility]INE 230 [place], [place] [phone] Tanika Arenas ANP 230 [place], [place] [phone] Dyslipidemia Social History Tobacco Use Types Packs/Day [...] 9:00 AM EDT Clinical Support [facility] 230 [place] [address] Loyda Banda RN 505 [place] [address] documented as of this encounter Goals Goal [...] documented as of this encounter Care Teams Sole Leveler Relationship Specialty Start Date End Date Daisha Crane MD 230 [place] [address] PCP - General Family Medicine 11/01/18 Lisa Liao, PharmD 230 [place] [address] Pharmacist Internal Medicine 04/06/23 02/02/25 Alissa Santillan MD [address] [place] [address] Rheumatology 11/09/24 Sharon Guardado [address] 3rd [place] [address] Cardiology 11/13/24 Cedric Lujan MD [address] [place] [address] Orthopaedic Surgery 11/23/24 Rory Angeles MD [address] [place] [address] Pain Medicine 02/06/25 Jairon Crawford OD [facility] [address] [place] [address] Optometry 03/07/25 Laura Velarde MD Rheumatology 03/28/25 documented as of this encounter
--- OUTSIDE RECORDS SUMMARY | 2025-07-10 10:08 | XMS_ITS | Encounter Summary ---
Author Organization [employer] Address 75 [facility] 7t [place] [address] Care Team Providers Care Hogshead Hand Name Role Phone Daisha Crane MD Primary Care Provider +1- [phone] Lisa Liao PharmD Unavailable Alissa Santillan MD Unavailable Sharon Guardado Unavailable Cedric Lujan MD Unavailable Rory Angeles MD Unavailable Jairon Crawford OD Unavailable Reason for Visit * Reason Onset Date Comments Med Refill 11/24/2023 Encounter Details Date Type Department Care Team (Late st Contact Info) Description 11/24/2023 Telephone [facility]INE 230 [place], [place] [phone] Daisha Crane MD 230 [place], [place] [phone] Med Refill Social History Tobacco Use Types Packs/Day Years Used Date Smoking Tobacco: Every Day Cigarettes Passive Smoke Exposure: Current Smokeless Tobacco: Never Depression Answer Date Recorded Patient Health Questionnaire-9 Score 0 11/23/2022 Housing Stability Answer Date Recorded What is your housing situation today? I have filippo shrama 08/17/[address] you li [...] immediate release tablet To be sent to: [facility] - [place], [place] - [address] [place] [address] documented in this encounter Plan of Treatment Upcoming Encounters Date Type Department Care Team ([facility] st Contact Info) Description 07/20/2025 9:00 AM EDT Clinical Support [facility] 230 [place] [address] Loyda Banda, SO 505 [place] [address] documented as of this encounter Goals Goal [...] documented as of this encounter Care Teams Hogshead Hand Relationship Specialty Start Date End Date Daisha Crane MD 230 [place] [address] PCP - General Family Medicine 11/01/18 Lisa Liao, GenevaD 230 [place] [address] Pharmacist Internal Medicine 04/06/23 02/02/25 Alissa Santillan MD [address] [place] [address] Rheumatology 11/09/24 Sharon Guardado [address] 3rd [place] [address] Cardiology 11/13/24 Cedric Lujan MD [address] [place] [address] Orthopaedic Surgery 11/23/24 Rory Angeles MD [address] [place] [address] Pain Medicine 02/06/25 Jairon Crawford OD [facility] [address] [place] [address] Optometry 03/07/25 Laura Velarde MD Rheumatology 03/28/25 documented as of this encounter
--- OUTSIDE RECORDS SUMMARY | 2025-07-10 10:08 | XMS_ITS | Encounter Summary ---
Author Organization [employer] Address 75 [facility] 7t [place] [address] Care Team Providers Care Promotions Specialist Name Role Phone Daisha Crane MD Primary Care Provider +1- [phone] Lisa Liao PharmD Unavailable Alissa Santillan MD Unavailable Sharon Guardado Unavailable Cedric Lujan MD Unavailable Rory Angeles MD Unavailable Jairon Crawford OD Unavailable Encounter Details Date Type Department Care Team (Late st Contact Info) Description 12/16/2022 Orders Only [facility] [address] [place], [place] [phone] Jenn Polk LPN Social History Tobacco Use [...] Support [facility] 230 [place] [address] Loyda Banda, RN [address] [place] [address] documented as of this encounter Visit Diagnoses Not on filedocumented in this encounter Additional Health Concerns Assessment Noted Time PHQ-9 Depression Total Score: 0 11/23/19 10:39 AM EST documented as of this encounter Care Teams Promotions Specialist Relationship Specialty Start Date End Date Daisha Crane MD 230 [place] [address] PCP - General Family Medicine 11/01/18 Lisa Liao PharmD 230 [place] [address] Pharmacist Internal Medicine 04/06/23 02/02/25 Alissa Santillan MD [address] [place] [address] Rheumatology 11/09/24 Sharon Guardado [address] 3rd [place] [address] Cardiology 11/13/24 Cedric Lujan MD [address] [place] [address] Orthopaedic Surgery 11/23/24 Rory Angeles MD [address] [place] [address] Pain Medicine 02/06/25 Jairon Crawford OD [facility] [address] [place] [address] Optometry 03/07/25 Laura Velarde MD Rheumatology 03/28/25 documented as of this encounter
--- OUTSIDE RECORDS SUMMARY | 2025-07-10 10:08 | XMS_ITS | Encounter Summary ---
Author Organization [employer] Address [address] [place] [address] 7t [place] [address] Care Team Providers Care Drill Grinder Name Role Phone Daisha Crane MD Primary Care Provider +1- [phone] Lisa Liao PharmD Unavailable Alissa Santillan MD Unavailable Sharon Guardado Unavailable Cedric Lujan MD Unavailable Rory Angeles MD Unavailable Jairon Crawford OD Unavailable Reason for Visit * Reason Onset Date Comments Med Refill 03/15/2023 Encounter Details Date Type Department Care Team (Late st Contact Info) Description 03/15/2023 Telephone [facility] 230 [place], [place] [phone] Daisha Crane MD 230 [place], [place] [phone] Med Refill Social History Tobacco Use Types [...] Description 07/20/2025 9:00 AM EDT Clinical Support [facility] 230 [place] [address] Loyda Banda RN 505 [place] [address] documented as of this encounter Visit Diagnoses Not on filedocumented in this encounter Additional Health Concerns Assessment Noted Time PHQ-9 Depression Total Score: 0 11/23/19 10:39 AM EST documented as of this encounter Care Teams Drill Grinder Relationship Specialty Start Date End Date Daisha Crane MD 230 [place] [address] PCP - General Family Medicine 11/01/18 Lisa Liao, GenevaD 230 [place] [address] Pharmacist Internal Medicine 04/06/23 02/02/25 Alissa Santillan MD [address] [place] [address] Rheumatology 11/09/24 Sharon Guardado [address] 3rd [place] [address] Cardiology 11/13/24 Cedric Lujan MD [address] [place] [address] Orthopaedic Surgery 11/23/24 Rory Angeles MD [address] [place] [address] Pain Medicine 02/06/25 Jairon Crawford OD [facility] [address] [place] [address] Optometry 03/07/25 Laura Velarde MD Rheumatology 03/28/25 documented as of this encounter
--- OUTSIDE RECORDS SUMMARY | 2025-07-10 10:08 | XMS_ITS | Encounter Summary ---
Author Organization [employer] Address [address] [facility] 7t [place] [address] Care Team Providers Care Chemicals Fermentation Operator Name Role Phone Daisha Crane MD Primary Care Provider + [phone] Lisa Liao PharmD Unavailable Alissa Santillan MD Unavailable Sharon uGardado Unavailable Cedric Lujan MD Unavailable Rory Angeles MD Unavailable Jairon Crawford OD Unavailable Encounter Details Date Type Department Care Team (Late st Contact Info) Description 11/19/2022 Orders Only [facility] [address] [place] [phone] Radha Johnson LPN Social History Tobacco Use [...] Description 07/20/2025 9:00 AM EDT Clinical Support [facility] [address] [place] [phone] Loyda Banda, RN 505 [place] [address] documented as of this encounter Visit Diagnoses Not on filedocumented in this encounter Care Teams Chemicals Fermentation Operator Relationship Specialty Start Date End Date Daisha Crane MD 230 [place] [address] PCP - General Family Medicine 11/01/18 Lisa Liao, PharmD 230 [place] [address] Pharmacist Internal Medicine 04/06/23 02/02/25 Alissa Santillan MD [address] [place] [address] Rheumatology 11/09/24 Sharon Guardado [address] 3rd [place] [address] Cardiology 11/13/24 Cedric Lujan MD [address] [place] [address] Orthopaedic Surgery 11/23/24 Rory Angeles MD [address] [place] [address] Pain Medicine 02/06/25 Jairon Crawford OD [facility] [address] [place] [address] Optometry 03/07/25 Laura Velarde MD Rheumatology 03/28/25 documented as of this encounter
== END 2025-07-10 09:59 | disposition home or self-care (01) ==
LOC: HO.RHES 08:55
PROVIDERS: PCP Family Medicine; Visit Provider Student in an Organized Health Care Education/Training Program
DX: M05.79 Rheumatoid arthritis with rheumatoid factor of multiple sites without organ or systems involvement (principal); Z79.52 Long term (current) use of systemic steroids; Z51.81 Encounter for therapeutic drug level monitoring; Z79.899 Other long term (current) drug therapy; Z79.631 Long term (current) use of antimetabolite agent
CPT/HCPCS: 99215; G2211

== ENCOUNTER → 2025-07-10 08:55 | Outpatient (BNVA) | payer OTHER, SELFPAY | PROVIDERS: PCP Family Medicine; Visit Provider Student in an Organized Health Care Education/Training Program | DX: M05.9 Rheumatoid arthritis with rheumatoid factor, unspecified (principal); Z79.52 Long term (current) use of systemic steroids; Z51.81 Encounter for therapeutic drug level monitoring; Z79.899 Other long term (current) drug therapy; Z79.631 Long term (current) use of antimetabolite agent; M06.2 Rheumatoid bursitis | CPT/HCPCS: 99212 ==

== ENCOUNTER 2025-07-13 09:06 | Outpatient (AMB) | payer OTHER, SELFPAY ==
--- NOTE | 2025-07-13 09:07 | A.OFFVIS_ITS ---
Vital Signs 07/13/25 09:17 Height 5 ft 6 in Weight 156 lb BMI 25.2 BP 142/65 H Blood Pressure Location Rt brachial Position Sitting Respiration 16 Pulse 60 Pulse Source Pulse Oximeter Pulse Oximetry (%) 98 Oxygen Delivery Method Room Air Intake Visit Reasons: 1 Week Follow Up Intake Note: Dressing change, site looks clean. Silk Blocker Required: No Allergies lisinopril (LISINOPRIL) Allergy (Severe, Verified 07/13/25 09:20) Angioedema LAITH Inhibitors Adverse Reaction (Severe, Verified 07/13/25 09:20) Angioedema HPI Comments Details: Patient presents the office today for follow up and Sprint dressing change. He is two weeks status post right interscalene sprint PNS placement. Patient denies any improvement in his pain, function or mobility since placement of the Sprint. Using device without difficulty, stimulation at 50. Reports that he is able to feel stimulation but still suffering with significant right shoulder pain into the right upper arm. Taking tylenol and oxycodone as prescribed by pcp. 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 steroid user Osteoporosis Seropositive rheumatoid arthritis History of prostate cancer Arthritis GERD (gastroesophageal reflux disease) COPD (chronic obstructive pulmonary disease) Asthma HTN (hypertension) Surgical History History of open reduction and internal fixation (ORIF) procedure Hx of umbilical hernia repair Hx of eye surgery History of back surgery History of colonoscopy History of removal of cyst History of tonsillectomy and adenoidectomy History of arthroscopy of left shoulder History of prostate surgery Family History Mother History of breast cancer, Onset Age: 87 Father History of asthma Social History Alcohol intake: never Patient Tobacco Use Status: Current everyday Tobacco user Tobacco use type: Cigarette Cigarettes Per Day: 7 Years Smoked: 60 +/- e-Cigarette/Vaping Use: Never Used Current occupational status: retired Current occupation: [employer] Gender identity: Male Review of Systems Const All systems reviewed & are unremarkable except as noted in HPI and below Physical Exam Exam Exam: General: awake, alert, oriented. Answers questions appropriately. Fully engaged in examination. Skin: warm, dry, intact HEENT: Normocephalic. Hearing intact. Cardiac: External chest normal in appearance. Respiratory: No cough, audible wheezing or stridor. Abdomen: without gross distension. MS: No obvious swelling or deformities. Neurological: Oriented to person, place, time and situation. Thought process intact. No gait abnormalities appreciated. Psychiatric: Appropriate mood and affect. Good judgment and insight. Sprint dressing change: Existing dressing removed, Area cleansed with chloraprep. Site dry, clean without redness, swelling, warmth, bruising or drainage. Lead secure device removed. Area cleansed again with chloraprep, once dry skin barrier protectant wipe applied. New lead secure device applied, tegaderm applied. Patient tolerated procedure well. Vital Signs: Last Vital Signs Pulse 60 07/13/25 09:17 Resp 16 07/13/25 09:17 BP 142/65 H 07/13/25 09:17 Pulse Ox 98 07/13/25 09:17 Oxygen Delivery Method Room Air 07/13/25 09:17 BMI result Body Mass Index 25.2 Results Reviewed Results Reviewed: 07/24/24 MR/MR shoulder RT wo con IMPRESSION: 1. Completely torn and retracted supraspinatus tendon with moderate muscle atrophy and mild fatty infiltration. 2. Complete or near-complete tear of the subscapularis tendon with moderate muscle atrophy and mild fatty infiltration. 3. Completely torn and retracted biceps tendon. 4. Superior subluxation of the humeral head with chronic remodeling of the undersurface of the acromion. 5. Mild acromioclavicular and glenohumeral osteoarthritis. Assessment & Plan Assessment & Plan (1) Chronic right shoulder pain: Code(s): M25.511 - Pain in right shoulder; G89.29 - Other chronic pain Category: Medical (2) Rotator cuff tear arthropathy of right shoulder: Code(s): M75.101 - Unspecified rotator cuff tear or rupture of right shoulder, not specified as traumatic; M12.811 - Other specific arthropathies, not elsewhere classified, right shoulder Category: Medical Plan Patient presented to the office today follow up, two weeks status post right interscalene sprint PNS placement. Dressing changed as per above. Continue using and titrate his stimulation as tolerated. Follow up with our office in 1 week for dressing change. All questions and concerns were answered, patient and daughter agree with the plan. Follow up in 1 week, sooner if needed Coding Level of Care Code Est Pt Level 3 (91845) Complex EM visit Add On G2211 Diagnoses Chronic right shoulder pain M25.511; G89.29 Rotator cuff tear arthropathy of right shoulder M75.101; M12.811
[2025-07-13 09:17] VITALS: BP 142/65; PULSE 60; RESP 16; O2SAT 98; BMI 25.2
--- OUTSIDE RECORDS SUMMARY | 2025-07-13 09:57 | XMS_ITS | Encounter Summary ---
Author Organization [employer] Address 75 [facility] 7t [place] [address] Care Team Providers Care Mold Repairer Name Role Phone Daisha Crane MD Primary Care Provider +1- [phone] Lisa Liao PharmD Unavailable Alissa Santillan MD Unavailable Sharon Guardado Unavailable Cedric Lujan MD Unavailable Rory Angeles MD Unavailable Jairon Crawford OD Unavailable Reason for Visit * Reason Comments Med Refill Encounter Details Date Type Department Care Team (Late st Contact Info) Description 11/21/2024 Refill [facility] PEDS [address] [place], [place] [phone] Cara Whitfield MD 230 [place], [place] [phone] Pain Social History Tobacco Use Types Packs/Day [...] Clinical Support [facility] MEDICINE 230 [place] [address] Loyda Banda RN 505 [place] [address] documented as of this encounter Goals Goal [...] as of this encounter Care Teams Mold Repairer Relationship Specialty Start Date End Date Daisha Crane MD 230 [place] [address] PCP - General Family Medicine 11/01/18 Lisa Liao, Nidia 230 [place] [address] Pharmacist Internal Medicine 04/06/23 02/02/25 Alissa Santillan MD [address] [place] [address] Rheumatology 11/09/24 Sharon Guardado [address] 3rd [place] [address] Cardiology 11/13/24 Cedric Lujan MD [address] [place] [address] Orthopaedic Surgery 11/23/24 Rory Angeles MD [address] [place] [address] Pain Medicine 02/06/25 Jairon Crawford OD [facility] [address] [place] [address] Optometry 03/07/25 Laura Velarde MD Rheumatology 03/28/25 documented as of this encounter
--- OUTSIDE RECORDS SUMMARY | 2025-07-13 09:58 | XMS_ITS | Encounter Summary ---
Author Organization [employer] Address [address] [facility] 7t [place] [address] Care Team Providers Care Handbook Writer Name Role Phone Daisha Crane MD Primary Care Provider +1- [phone] Lisa Liao PharmD Unavailable Alissa Santillan MD Unavailable Sharon Guardado Unavailable Cedric Lujan MD Unavailable Rory Angeles MD Unavailable Jairon Crawford OD Unavailable Reason for Visit * Reason Comments Med Refill Encounter Details Date Type Department Care Team (Late st Contact Info) Description 02/06/2024 Refill [facility] MEDICINE 230 [place], [place] [phone] Lisa Liao, PharmD 230 [place], [place] [phone] Social History Tobacco Use Types Packs/Day Years [...] Description 07/20/2025 9:00 AM EDT Clinical Support [facility] [address] [place] [phone] Loyda Banda RN 505 [place], [place] [phone] documented as of this encounter Goals Goal [...] documented as of this encounter Care Teams Handbook Writer Relationship Specialty Start Date End Date Daisha Crane MD 230 [place] [address] PCP - General Family Medicine 11/01/18 Lisa Liao, GenevaD 230 [place] [address] Pharmacist Internal Medicine 04/06/23 02/02/25 Alissa Santillan MD [address] [place] [address] Rheumatology 11/09/24 Sharon Guardado [address] 3rd [place] [address] Cardiology 11/13/24 Cedric Lujan MD [address] [place] [address] Orthopaedic Surgery 11/23/24 Rory Angeles MD [address] [place] [address] Pain Medicine 02/06/25 Jairon Crawford OD [facility] [address] [place] [address] Optometry 03/07/25 Laura Velarde MD Rheumatology 03/28/25 documented as of this encounter
--- OUTSIDE RECORDS SUMMARY | 2025-07-13 09:58 | XMS_ITS | Encounter Summary ---
Author Organization [employer] Address [address] [facility] 7t [place] [address] Care Team Providers Care Lpn Or Medical Assistant Name Role Phone Daisha Crane MD Primary Care Provider +1- [phone] Lisa Liao PharmD Unavailable Alissa Santillan MD Unavailable Sharon Guardado Unavailable Cedric Lujan MD Unavailable Rory Angeles MD Unavailable Jairon Crawford OD Unavailable Encounter Details Date Type Department Care Team (Late st Contact Info) Description 10/28/2022 Telephone [facility] MEDICINE [address] [place] [address] [phone] Daisha Crane MD 230 [place], [place] [phone] Social History Tobacco Use Types Packs/Day Years [...] Clinical Support [facility] MEDICINE 230 [place], [place] [phone] Loyda Banda, RN 505 [place] [address] documented as of this encounter Visit Diagnoses Not on filedocumented in this encounter Care Teams Lpn Or Medical Assistant Relationship Specialty Start Date End Date Daisha Crane MD 230 [place] [address] PCP - General Family Medicine 11/01/18 Lisa Liao, GenevaD 230 [place] [address] Pharmacist Internal Medicine 04/06/23 02/02/25 Alissa Santillan MD [address] [place] [address] Rheumatology 11/09/24 Sharon Guardado [address]rd [place] [address] Cardiology 11/13/24 Cedric Lujan MD [address] [place] [address] Orthopaedic Surgery 11/23/24 Rory Angeles MD [address] [place] [address] Pain Medicine 02/06/25 Jairon Crawford OD [facility] [address] [place] [address] Optometry 03/07/25 Laura Velarde MD Rheumatology 03/28/25 documented as of this encounter
--- OUTSIDE RECORDS SUMMARY | 2025-07-13 09:58 | XMS_ITS | Encounter Summary ---
Author Organization [employer] Address [address] [facility] 7t [place] [address] Care Team Providers Care Parts Consultant Name Role Phone Daisha Crane MD Primary Care Provider +1- [phone] Lisa Liao PharmD Unavailable Alissa Santillan MD Unavailable Sharon Guardado Unavailable Cedric Lujan MD Unavailable Rory Angeles MD Unavailable Jairon Crawford OD Unavailable Reason for Visit * Reason Comments Med Refill Encounter Details Date Type Department Care Team (Late st Contact Info) Description 09/03/2023 Refill [facility] MEDICINE 230 [place], [place] [phone] Key Gregory MD [address] [place], [place] [phone] Tinea versicolor Social History Tobacco Use Types [...] 07/20/2025 9:00 AM EDT Clinical Support [facility] MED[facility]INE 230 [place] [address] Loyda Banda RN 505 [place] [address] documented as of this encounter Goals Goal [...] documented as of this encounter Care Teams Parts Consultant Relationship Specialty Start Date End Date Daisha Crane MD [address] [place] [address] PCP - General Family Medicine 11/01/18 Lisa Liao, Nidia [address] [place] [address] Pharmacist Internal Medicine 04/06/23 02/02/25 Alissa Santillan MD [address] [place] [address] Rheumatology 11/09/24 Sharon Guardado [address]rd [place] [address] Cardiology 11/13/24 Cedric Lujan MD [address] [place] [address] Orthopaedic Surgery 11/23/24 Rory Angeles MD [address] [place] [address] Pain Medicine 02/06/25 Jairon Crawford OD [facility] [address] [place] [address] Optometry 03/07/25 Laura Velarde MD Rheumatology 03/28/25 documented as of this encounter
--- OUTSIDE RECORDS SUMMARY | 2025-07-13 09:58 | XMS_ITS | Encounter Summary ---
Author Organization [employer] Address [address] [facility] 7t [place] [address] Care Team Providers Care On Call Pharmacy Technician Name Role Phone Daisha Crane MD Primary Care Provider +1- [phone] Lisa Liao PharmD Unavailable Alissa Santillan MD Unavailable Sharon Guardado Unavailable Cedric Lujan MD Unavailable Rory Angeles MD Unavailable Jairon Crawford OD Unavailable Reason for Visit * Reason Comments Med Refill Encounter Details Date Type Department Care Team (Late st Contact Info) Description 02/07/2024 Refill [facility] MEDICINE 230 [place], [place] [phone] Tanika Arenas ANP 230 [place], [place] [phone] Dyslipidemia Social History Tobacco Use Types Packs/Day [...] Description 07/20/2025 9:00 AM EDT Clinical Support [facility] MEDICINE 230 [place] [address] Loyda Banda RN 505 [place] [address] documented as of this encounter Goals Goal [...] documented as of this encounter Care Teams On Call Pharmacy Technician Relationship Specialty Start Date End Date Daisha Crane MD 230 [place] [address] PCP - General Family Medicine 11/01/18 Lisa Liao, PharmD 230 [place] [address] Pharmacist Internal Medicine 04/06/23 02/02/25 Alissa Santillan MD [address] [place] [address] Rheumatology 11/09/24 Sharon Guardado [address] [place] [address] Cardiology 11/13/24 Cedric Lujan MD [address] [place] [address] Orthopaedic Surgery 11/23/24 Rory Angeles MD [address] [place] [address] Pain Medicine 02/06/25 Jairon Crawfodr OD [facility] [address] [place] [address] Optometry 03/07/25 Laura Velarde MD Rheumatology 03/28/25 documented as of this encounter
--- OUTSIDE RECORDS SUMMARY | 2025-07-13 09:58 | XMS_ITS | Encounter Summary ---
Author Organization [employer] Address 75 [facility] 7t [place] [address] Care Team Providers Care Programmer Analyst Consultant Name Role Phone Daisha Crane MD Primary Care Provider +1- [phone] Lisa Liao PharmD Unavailable Alissa Santillan MD Unavailable Sharon Guardado Unavailable Cedric Lujan MD Unavailable Rory Angeles MD Unavailable Jairon Crawford OD Unavailable Reason for Visit * Reason Onset Date Comments Med Refill 11/24/2023 Encounter Details Date Type Department Care Team (Late st Contact Info) Description 11/24/2023 Telephone [facility] MEDICINE 230 [place], [place] [phone] Daisha Crane MD 230 [place], [place] [phone] Med Refill Social History Tobacco Use Types [...] immediate release tablet To be sent to: [facility] - [place], [place] - [address] [place] [address] documented in this encounter Plan of Treatment Upcoming Encounters Date Type Department Care Team ([facility] st Contact Info) Description 07/20/2025 9:00 AM EDT Clinical Support [facility] MEDICINE [address] [place] [address] Loyda Banda, SO 505 [place] [address] documented as of this encounter Goals Goal [...] documented as of this encounter Care Teams Programmer Analyst Consultant Relationship Specialty Start Date End Date Daisha Crane MD 230 [place] [address] PCP - General Family Medicine 11/01/18 Lisa Liao, GenevaD 230 [place] [address] Pharmacist Internal Medicine 04/06/23 02/02/25 Alissa Santillan MD [address] [place] [address] Rheumatology 11/09/24 Sharon Guardado [address] [place] [address] Cardiology 11/13/24 Cedric Lujan MD [address] [place] [address] Orthopaedic Surgery 11/23/24 Rory Angeles MD [address] [place] [address] Pain Medicine 02/06/25 Jairon Crawford OD [facility] [address] [place] [address] Optometry 03/07/25 Laura Velarde MD Rheumatology 03/28/25 documented as of this encounter
--- OUTSIDE RECORDS SUMMARY | 2025-07-13 09:58 | XMS_ITS | Encounter Summary ---
Author Organization [employer] Address [address] [facility] 7t [place] [address] Care Team Providers Care Billing Specialist Name Role Phone Daisha Crane MD Primary Care Provider +1- [phone] Alissa Santillan MD Unavailable Sharon Guardado Unavailable Cedric Lujan MD Unavailable Rory Angeles MD Unavailable Jairon Crawford OD Unavailable Reason for Visit * Reason Onset Date Comments Med Refill 03/23/2025 Encounter Details Date Type Department Care Team (Late st Contact Info) Description 03/23/2025 Telephone [facility] MEDICINE 230 [place], [place] [phone] Diasha Crane MD 230 [place], [place] [phone] Med Refill Social History Tobacco Use Types [...] immediate release tablet To be sent to: [facility] - [place], [place] - [address] [facility] documented in this encounter Plan of Treatment Upcoming Encounters Date Type Department Care Team (Late st Contact Info) Description 07/20/2025 9:00 AM EDT Clinical Support [facility] MEDICINE 230 [place] [address] Loyda Banda, SO 505 [place] [address] documented as of this encounter Goals Goal [...] documented as of this encounter Care Teams Billing Specialist Relationship Specialty Start Date End Date Daisha Crane MD [address] [place] [address] PCP - General Family Medicine 11/01/18 Alissa Santillan MD [address] [place] [address] Rheumatology 11/09/24 Sharon Guardado [address] 3rd [place] [address] Cardiology 11/13/24 Cedric Lujan MD [address] [place] [address] Orthopaedic Surgery 11/23/24 Rory Angeles MD [address] [place] [address] Pain Medicine 02/06/25 Jairon Crawford OD [facility] [address] [place] [address] Optometry 03/07/25 Laura Velarde MD Rheumatology 03/28/25 documented as of this encounter
--- OUTSIDE RECORDS SUMMARY | 2025-07-13 09:58 | XMS_ITS | Encounter Summary ---
Author Organization [employer] Address [address] [facility] 7t [place] [address] Care Team Providers Care Soda Room Operator Name Role Phone Daisha Crane MD Primary Care Provider +1- [phone] Lisa Liao PharmD Unavailable Alissa Santillan MD Unavailable Sharon Guardado Unavailable Cedric Lujan MD Unavailable Rory Angeles MD Unavailable Jairon Crawford OD Unavailable Encounter Details Date Type Department Care Team (Late st Contact Info) Description 11/18/2023 Telephone [facility] MEDICINE 230 [place], [place] [phone] Daisha Crane MD 230 [place], [place] [phone] Social History Tobacco Use Types Packs/Day Years [...] 9:00 AM EDT Clinical Support [facility] MEDICINE 230 [place] [address] Loyda Banda RN 505 [place] [address] documented as of this encounter Goals Goal [...] documented as of this encounter Care Teams Soda Room Operator Relationship Specialty Start Date End Date Daisha Crane MD [address] [place] [address] PCP - General Family Medicine 11/01/18 Lisa Liao, PharmD 230 [place] [address] Pharmacist Internal Medicine 04/06/23 02/02/25 Alissa Santillan MD [address] [place] [address] Rheumatology 11/09/24 Sharon Guardado [address] [place] [address] Cardiology 11/13/24 Cedric Lujan MD [address] [place] [address] Orthopaedic Surgery 11/23/24 Rory Angeles MD [address] [place] [address] Pain Medicine 02/06/25 Jairon Crawford OD [facility] [address] [place] [address] Optometry 03/07/25 Laura Velarde MD Rheumatology 03/28/25 documented as of this encounter
--- OUTSIDE RECORDS SUMMARY | 2025-07-13 09:58 | XMS_ITS | Clinical Summary ---
Author Organization [employer] Address [address] [facility] 7[address] [place] [address] Care Team Providers Care Group Fitness Department Head Name Role Phone Daisha Crane MD Primary Care Provider [phone] Alissa Santillan MD Unavailable Sharon Guardado Unavailable [...] 2 diabetes mellitus without complication, unspecified whether detention insulin use (CMS/HCC) TEST BLOOD SUGAR TWICE [...] complication, without long-term current use of insulin ([facility]) USE DIRECTED TO TEST BLOOD SUGAR TWICE DAILY 100 each 11 025 Active docusate sodium (Colace) 100 MG capsuleIndicati ons:Constipatio n, unspecified constipation type TAKE 1 CAPSULE BY MOUTH TWICE DAILY IN THE MORNING AND IN THE EVENING 180 capsule Active senna (Senokot) 8.6 MG tabletIndicatio ns:Constipation , unspecified constipation type TAKE 2 TABLETS BY MOUTH EVERY DAY IN THE EVENING NEEDED FOR CONSTIPATION 180 tablet Active Arnuity Ellipta 200 MCG/ACT inhalerIndicati ons:Chronic [...] AFTER USING 30 each 5 025 Active hydroCHLOROthia zide 12.5 MG tabletIndicatio ns:Hypertension , unspecified type TAKE 1 TABLET BY MOUTH EVERY MORNING 90 tablet 3 025 Active oxyCODONE (Roxicodone) 5 MG immediate release tabletIndicatio ns:Pain Take 1 tablet (5 mg) by mouth every 8 (eight) hours if needed for severe pain. 56 tablet 025 Active cholecalciferol (Vitamin D-3) 25 MCG tabletIndicatio ns:Vitamin D deficiency TAKE 1 TABLET BY MOUTH EVERY MORNING 90 tablet 025 Active hydroCHLOROthia zide 12.5 MG tabletIndicatio ns:Hypertension , unspecified type Take 1 tablet by mouth once daily in the morning 90 tablet 3 024 2024 Discontinued cholecalciferol (Vitamin D-3) 25 MCG tabletIndicatio ns:Vitamin D deficiency Take 1 tablet (25 mcg) by mouth in the morning. 90 tablet 025 2024 Discontinued oxyCODONE (Roxicodone) 5 MG immediate release tabletIndicatio ns:Pain Take 1 tablet (5 mg) by mouth every 8 (eight) hours if needed for severe pain. 56 tablet 025 2024 Discontinued(R eorder (will not trigger notification to Pharmacy)) Active Problems Patient Care Coordination No te Formatting of this note migh t be different from the original. Enrolled in [facility] DM and HTN clinic with Lisa Liao PharmD, [facility] [place] Help Desk Consultant: Denise, member services number [phone] Customer Sales Consultant Agency: [employer] [facility] Problem Noted Date Diagnosed Date Transaminitis 09/04/2024 Overview (03/07/2025): Lab Results Component Value Date TOTALBILIRUB 0.9 10/09/2024 AST 33 10/09/2024 ALT 33 10/09/2024 ALT 30 03/25/2021 ALP 48 10/09/2024 HEPCAB Nonreactive 11/11/2023 HEPAIGM Nonreactive 11/11/2023 HEPBSURFAB NONREACTIVE 11/11/2023 HEPBCOREAB Nonreactive 11/11/2023 HEPBSURFACAG Negative 11/11/2023 FERRITIN 18 (L) 10/09/2024 Assessment & Plan (09/04/2024 5:00 PM EST): -ordered labs 09/04/24 skilled nursing (current) use of opiate analgesic 08/03 Neuropathic [...] with visit. He would like referral to [facility] , new referral placed 09/04/24 -Saw Podiatry 11/07/24 Assessment & Plan (09/04/2024 4:56 PM EST): -referral placed to Podiatry 04/06/[address] Daniels, he was not happy with with visit. He would like referral to [facility] , new referral placed 09/04/24 Assessment & Plan (04/06/2024 9:55 AM EDT): -referral placed to Podiatry 04/06/2024 Other specified health status 06/03/2023 Overview (03/07/2025): -next physical exam due after 09/04/2025 -eye care facilitated by [facility] -dental home is [facility] in [place]. -healthcare Proxy completed and filed 04/06/2024. Assessment & Plan (09/04/2024 5:02 PM EST): -next physical exam due after 09/04/2025 -eye care facilitated by [facility] -dental home is [facility] in [place]. -healthcare Proxy completed and filed 04/06/2024. Assessment & Plan (04/06/2024 9:51 AM EDT): -next physical exam due after 06/04/2024. -eye care facilitated by [facility]. -d[facility] home is [facility] [place]. -healthcare Proxy completed and filed 04/06/2024. Assessment & Plan (06/04/2023 9:45 AM EDT): -next physical exam due after 06/04/2024. -eye care facilitated by [facility]. -dental home is [facility] in [place]. 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 Seen 01/14/25. -Hx of dilated [...] EST): Followed by Sharon Guardado NP-C for [facility]. Seen 05/30/24 -Hx of dilated [...] Overview (03/07/2025): -Followed by Sharon AREVALOC for [facility]. -Known hx of Bicuspid aortic valve without stenosis or regurgitation. Followed by echocardiograms. Last echo 08/25/2023 shows mild calcification of the aortic valve, no regurgitation or stenosis. Repeat echo ordered 2023. -Sharon Guardado NP-C for [facility] 11/2024 Prior notes indicate a [...] Overview (05/31/2024): Followed by Sharon LEWIS for [facility] 05/30/24. History of leg edema [...] September 2024. GERD (gastroesophageal reflux disease) 3 skilled nursing systemic steroid user 04/06/2023 Osteoporosis 04/06/2023 Overview [...] as pharmacomtherapy, [facility] smoking cessation group, and [facility] pharmacy smoking cessation clinic Discussed USPSTF [...] as pharmacomtherapy, [facility] smoking cessation group, and [facility] pharmacy smoking cessation clinic Discussed USPSTF [...] as pharmacomtherapy, [facility] smoking cessation group, and [facility] pharmacy smoking cessation clinic Discussed USPSTF [...] rheumatoid factor 11/20/2022 Overview (03/28/2025): Seen by assistant professor of business Dr. Minnie Santillan 05/23/24 -On Actemra 162 [...] Plan (09/04/2024 5:00 PM EST): Seen by assistant professor of business Dr. Minnie Santillan 05/23/24 -On Actemra 162 [...] Plan (04/06/2024 9:51 AM EDT): Followed by assistant professor of business. Per note 11/18/23:On Actemra 162 mg every [...] the right ECU swelling does not improve Photo Booth Operator would like to restart hydroxychloroquine, will refer patient to Ophthalmology for a baseline hydroxychloroquine screening. If patient is cleared. Will start hydroxychloroquine Continue Rasuvo 25 mg weekly + Actemra every other week. Chest CTA 10/2022 showed no evidence of ILD T-spot and Hepatitis panel -ve 11/2023,. Labs before next visit in 3 months via rheumatology Seen by assistant professor of business Dr. Minnie Santillan 02/23/24 -On Actemra 162 [...] Plan (06/04/2023 9:39 AM EDT): -Followed by assistant professor of business Dr. Fisher. -Currently on prednisone 2 mg daily -med rec to make sure we have correct meds on file -Continue Oxycodone 5mg BID as needed for pain -Did not tolerate Methotrexate, then Leflunomide 20mg daily but then d/c due to rash Assessment & Plan (11/20/2022 10:23 AM EST): -Followed by assistant professor of business Dr. Fisher. -Currently on prednisone 2 mg [...] dilatation measuring 4cm and ascending aorta 4.3cm -Front Desk Representative Nanette Leonard seen in April 2022. - Now followed by Sharon LEWIS for [facility] -History of leg edema with higher dose amlodipine use. He did have improvement in his swelling when his amlodipine was reduced to 5 mg daily and then discontinued. -echo does show a normal EF, impaired relaxation. He is on hydrochlorothiazide. He is on prednisone which can contribute to some mild edema. -given compression stockings 05/30/24 -Sharon Guardado NP-C for [facility] 11/2024 Hx of dilated ascending [...] dilatation measuring 4cm and ascending aorta 4.3cm Front Desk Representative Nanette Leonard seen in April 2022. Followed by Sharon LEWIS for [facility] 05/30/24. History of leg edema [...] dilatation measuring 4cm and ascending aorta 4.3cm Front Desk Representative Nanette Leonard seen in April 2022. [...] dilatation measuring 4cm and ascending aorta 4.3cm Front Desk Representative Nanette Leonard seen in April 2022. [...] dilatation measuring 4cm and ascending aorta 4.3cm Front Desk Representative Nanette Leonard seen in April 2022. [...] -Vascepa 2 grams twice daily started by [facility] 05/22/24 Assessment & Plan (04/06/2024 9:52 AM [...] agreeable with plan to be transported to [facility] via ambulance . Case discussed with provider at [facility] ER Cutaneous skin tags 05/18/2023 03/30/20 24 [...] Encounters Date Type Department Care Team Description 07/11/2025 Refill [facility] MEDICINE [address] [place] [address] Daisha Crane MD Vitamin D deficiency 07/10/2025 Refill C MEDICINE [address] [place] [address] Daisha Crane MD Pain 07/08/2025 Refill C MEDICINE [address] [place] [address] Lisa Liao, PharmD Hypertension, unspecified type 07/04/2025 Orders Only GENERIC EXTERNAL DATA DEPARTMENT Provider, Generic External Data 06/12/2025 Refill [facility] [address] [place] [address] Loyda Banda RN Pain 06/12/2025 Telephone [facility] [address] [place] [address] Daisha Crane MD Med Refill 05/15/2025 Refill [facility] [address] [place] [address] Daisha Crane MD Pain 05/15/2025 Refill [facility]ED[facility] [address] [place] [address] Loyda Banda RN Pain 05/14/2025 11:00 AM EDT Telemedicine [facility]ED[facility] [address] [place] [address] Loyda Banda, [place] ferry terminal supervisor (current) use of opiate analgesic 05/14/2025 Telephone [facility] [address] [place] [address] Loyda Banda RN 05/14/2025 Travel 05/09/2025 Refill [facility] MEDICINE [address] [place] [address] Daisha rCane MD Constipation, unspecified constipation type; Chronic obstructive pulmonary disease, unspecified COPD type ([facility]); Primary insomnia; Simple chronic bronchitis ([facility]) 04/17/2025 Refill [facility] PEDS [address] [place] [address] Daisha Crane MD Pain 04/16/2025 Refill [facility] MEDICINE [address] [place] [address] Daisha Crane MD Type 2 diabetes mellitus without complication, without long-term current use of insulin ([facility]); Vitamin D deficiency 04/16/2025 Refill [facility] MEDICINE [address] [place] [address] [facility] Vitamin D deficiency from Last 3 Months Immunizations Immunization Administration [...] Support [facility] MEDICINE [address] [place] [address] Loyda Banda RN [address] [place], [place] [phone] Health Maintenance Due Date Last Done Comments [...] 09/15/2024, 06/17/2023 Depression Screening 03/07/2026 03/07/2025, 03/07/20 Diabetes: Foot Exam 03/07/2026 03/07/2025, 03/07/2025, 03/07/2025, [...] hyperglycemia, without long-term current use of insulin ([facility]/HCC) ALBUMIN, RANDOM URINE W/CREATININE Routine 09/15/2024 8:03 AM EST Type 2 diabetes mellitus without complication, unspecified whether detention insulin use ([facility]) HEPATITIS PANEL, GENERAL Routine 11/11/2023 10:39 AM EST COLONOSCOPY Routine 12/21/2020 from Last 3 Months or Most Recently Relevant to Health Maintenance Results * (ABNORMAL) CBC auto differential (07/04/2025 9:18 AM EDT) White Blood Count 9.5 4.8 - 10.8 X10*3/uL [facility] Red Blood Count 3.94(L) 4.60 - 5.80 X10*6/uL [facility] Hemoglobin 9.4(L) 14.0 - 18.0 g/dl [facility] Hematocrit 32.0(L) 42.0 - 52.0 % [facility] Mean Corpuscular Volume 81.2 80.0 - 98.0 fL [facility] Mean Corpuscular Hemoglobin 23.9(L) 27.0 - 33.0 pg [facility] Mean Corpuscular HGB Conc 29.4(L) 31.0 - 36.0 g/dl [facility] Red Cell Distribution Width 20.6(H) 11.0 - 16.0 % [facility] Platelet Count 219 160 - 400 X10*3/uL [facility] Mean Platelet Volume 10.1 9.4 - 12.4 fL [facility] Neutrophils Percent Auto 55.5 45 - 73 % [facility] Imm Gran Pct Auto 0.4 0.0 - 0.4 % [facility] Lymphocytes Percent Auto 29.0 20 - 40 % [facility] Monocytes Percent Auto 12.8(H) 2 - 11 % [facility] Eosinophils Percent Auto 1.7 0 - 4 % [facility] Basophils Percent Auto 0.6 0 - 2 % [facility] NRBC Pct Auto 0.0 0.0 - 0.2 /100WBC [facility] Neutrophils Absolute Auto 5.2 2.0 - 8.3 x10*3/uL [facility] Imm Gran Abs Auto 0.04(H) 0.00 - 0.03 X10*3/uL [facility] Lymphocytes Absolute Auto 2.7 1.2 - 4.9 X10*3/uL [facility] Monocytes Absolute Auto 1.2 0.1 - 1.2 X10*3/uL [facility] Eosinophils Absolute Auto 0.2 0.0 - 0.4 X10*3/uL [facility] Basophils Absolute Auto 0.1 0.0 - 0.2 X10*3/uL [facility] NRBC Abs Auto 0.000 0.0 - 0.012 X10*3/uL [facility] 07/04/2025 9:18 AM EDT 07/04/2025 9:18 AM EDT Generic External Data Provider LAB BLOOD ORDERAB LES Final Result Performing Organization Address [facility] de Phone Number [facility] [address] [place] [phone] * Sed Rate by Modified Medardoren (07/04/2025 9:18 AM EDT) Erythrocyte Sedimentation Rate 2 0 - 15 MM/HR [facility] Comment:Patients with polycy themia and many hemoglobin abnormalitiesmay have depressed sed rates whereas patients with anemiamay have elevated sed rates. 07/04/2025 9:18 AM EDT 07/04/2025 9:18 AM EDT Generic External Data Provider LAB BLOOD ORDERAB LES Final Result Performing Organization Address [facility] Co de Phone Number [facility] [address] [place] [phone] * C-reactive Protein (07/04/2025 9:18 AM EDT) C Reactive Protein <0.04 < or = 0.50 mg/dL [facility] 07/04/2025 9:18 AM EDT 07/04/2025 9:18 AM EDT Generic External Data Provider LAB BLOOD ORDERAB LES Final Result Performing Organization Address [facility] Co de Phone Number [facility] [address] [place] [phone] * (ABNORMAL) Lipid Panel, Standard (07/04/2025 9:18 AM EDT) Triglycerides 130 <150 mg/dL [facility] Comment:Desirable Triglyceri de: less than 150 mg/dLBorderline High Triglyceride 150-199 mg/dLHigh Triglyceride: 200-499 mg/dLVery High Triglyceride: greater than or equal to 5OO mg/dL Cholesterol 97 <200 mg/dL [facility] Comment:Desirable Cholestero l: less than 200 mg/dLBorderline High Cholesterol: 200-239 mg/dLHigh Cholesterol: greater than 239 mg/dL LDL Cholesterol Calculated 36 <100 mg/dL [facility] Comment:Desirable LDL: less than 100 mg/dLNear Optimal/Above Optimal LDL: 110- 129 mg/dLBorderline High LDL: 130-159 mg/dLHigh LDL: 160-189 mg/dLVery High LDL: greater than or equal to 190 mg/dL HDL Cholesterol 35(L) >40 mg/dL [facility] Comment:Desirable HDL: great er than 40 mg/dL Note: This HDL assay may give artificially low results in patients with liver disease. 07/04/2025 9:18 AM EDT 07/04/2025 9:18 AM EDT Generic External Data Provider LAB BLOOD ORDERAB LES Final Result Performing Organization Address [facility]/ZIP Co de Phone Number [facility] [address] [place] [phone] * (ABNORMAL) Comprehensive Metabolic Panel (07/04/2025 9:18 AM EDT) Sodium 138 135 - 145 mmol/L [facility] Potassium 3.6 3.3 - 5.1 mmol/L [facility] Comment:Slight Hemolysis.Int erpret result with caution. Chloride 104 96 - 108 mmol/L [facility] Carbon Dioxide 24 22 - 29 mmol/L [facility] Anion Gap 14 12 - 20 [facility] Urea Nitrogen (BUN) 12 9 - 16 mg/dL [facility] Creatinine, Serum 0.74 0.5 - 1.4 mg/dL [facility] Estimated Glomerular Filt Rate >60 [facility] Comment:Chronic Kidney Disea se: Estimated GFR < 60 mL/min/1.16q1Cngpxn Kidney Disease: Estimated GFR < 15 mL/min/1.73m2 Glucose 94 60 - 115 mg/dL [facility] Calcium 9.6 8.4 - 10.2 mg/dL [facility] Bilirubin, Total 0.8 0.0 - 1.0 mg/dL [facility] Aspartate Amino Transferase 38(H) 5 - 37 U/L [facility] Comment:Slight Hemolysis.Int erpret result with caution. Alanine Aminotransferase 25 0 - 40 U/L [facility] Total Protein 6.6 6.5 - 8.0 g/dL [facility] Albumin Level 4.5 3.5 - 5.0 g/dL [facility] Alkaline Phosphatase 54 39 - 117 U/L [facility] 07/04/2025 9:18 AM EDT 07/04/2025 9:18 AM EDT us Generic External Data Provider LAB BLOOD ORDERAB LES Final Result [facility] [address] [place] [phone] * (ABNORMAL) POCT glycosylated hemoglobin (Hgb A1c) (03/07/2025 10:40 AM EDT) Hemoglobin A1C 6.4(A) 4.0 - 6.0 % QC Media Lot # [id number] Lot# Expiration Date Blood Capillary blood specimen / Unknown 03/07/2025 10:40 AM EDT Daisha Crane MD POINT OF CARE TEST ENTER/E DIT ORDERABLES Final Result * Albumin, Random Urine W/Creatinine (09/15/2024 8:03 AM EST) Creatinine, Urine 107.16 mg/dL [facility] Microalbumin Urine 20.0 mg/L [facility] Microalbum Creatinine Ratio Ur 18.6 <30 ug/mg cr [facility] Comment:Albumin/Creatinine R atio Reference Ranges: Normal: < 30 ug/mg creatinine Microalbuminuria: 30 - 300 ug/mg creatinineClinical Albuminuria: > 300 ug/mg creatinine Urine 09/15/2024 8:03 AM EST 09/15/2024 11:09 AM EST Daisha Crane MD LAB URINE ORDERABLES Final Result Performing Organization Address [facility] de Phone Number [facility] [address] [place] [phone] * Hepatitis Panel, General (11/11/2023 10:39 [...] ORDERAB LES Final Result Performing Organization Address [facility] Co de Phone Number [facility] [address] [place] [phone] * Colonoscopy (12/21/2020) Colonoscopy tubular adenoma with Dr. Rodríguez us Historical Provider HEALTH MAINTENANCE Final Result from Last 3 Months or Most Recently Relevant to Health Maintenance Insurance [employer] 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 Advance Directives and Living Will 04/06/2024 Health Care Proxy 04/06/24 Care Teams Group Fitness Department Head Relationship Specialty Start Date End Date Daisha Crane MD [address] [place] [address] PCP - General Family Medicine 11/01/18 Alissa Santillan MD [address] [place] [address] Rheumatology 11/09/24 Sharon Guardado [address] [place] [address] Cardiology 11/13/24 Cedric Lujan MD [address] [place] [address] Orthopaedic Surgery 11/23/24 Rory Angeles MD [address] [place] [address] Pain Medicine 02/06/25 Jairon Crawford OD [facility] [address] [place] [address] Optometry 03/07/25 Laura Velarde MD Rheumatology 03/28/25
--- OUTSIDE RECORDS SUMMARY | 2025-07-13 09:58 | XMS_ITS | Encounter Summary ---
Author Organization [employer] Address [address] [facility] [address]t [place] [address] Care Team Providers Care Box Annealer Name Role Phone Daisha Crane MD Primary Care Provider [phone] Lisa Liao PharmD Unavailable Alissa Santillan MD Unavailable Sharon Guardado Unavailable Cedric Lujan MD Unavailable Rory Angeles MD Unavailable Jairon Crawford OD Unavailable Reason for Visit * Reason Onset Date Comments Med Refill 07/04/2024 Encounter Details Date Type Department Care Team (Late st Contact Info) Description 07/04/2024 Telephone [facility] MEDICINE [address] [place], [place] [phone] Daisha Crane MD [address] [place], [place] [phone] Med Refill Social History Tobacco Use Types [...] To be sent to: [facility] - [place], [place] - [address] [place] [address] documented in this encounter Plan of Treatment Upcoming Encounters Date Type Department Care Team (Late st Contact Info) Description 07/20/2025 9:00 AM EDT Clinical Support [facility] MEDICINE [address] [place] [address] Loyda Banda RN [address] [place], [place] [phone] documented as of this encounter Goals Goal [...] documented as of this encounter Care Teams Box Annealer Relationship Specialty Start Date End Date Daisha Crane MD [address] [place] [address] PCP - General Family Medicine 11/01/18 Lisa Liao, PharmD [address] [place] [phone] Pharmacist Internal Medicine 04/06/23 02/02/25 Alissa Santillan MD [address] [place] [address] Rheumatology 11/09/24 Sharon Guardado [address] [place] [address] Cardiology 11/13/24 Cedric Lujan MD [address] [place] [address] Orthopaedic Surgery 11/23/24 Rory Angeles MD [address] [place] [address] Pain Medicine 02/06/25 Jairon Crawford OD [facility] [address] [place] [address] Optometry 03/07/25 Laura Velarde MD Rheumatology 03/28/25 documented as of this encounter
--- OUTSIDE RECORDS SUMMARY | 2025-07-13 09:58 | XMS_ITS | Encounter Summary ---
Author Organization [employer] Address 75 [facility] 7t [place] [address] Care Team Providers Care Rat Culturist Name Role Phone Daisha Crane MD Primary Care Provider +1- [phone] Alissa Santillan MD Unavailable Sharon Guardado Unavailable Cedric Lujan MD Unavailable Rory Angeles MD Unavailable Jairon Crawford OD Unavailable Reason for Visit * Reason Comments Med Refill Encounter Details Date Type Department Care Team (Late st Contact Info) Description 05/15/2025 Refill [facility] [address] [place], [place] [phone] Daisha Crane MD 230 [place], [place] [phone] Pain Social History Tobacco Use Types Packs/Day [...] 07/20/2025 9:00 AM EDT Clinical Support [facility] [address] [place] [address] Loyda Banda RN 505 [place] [address] documented as of this encounter Goals Goal [...] documented as of this encounter Care Teams Rat Culturist Relationship Specialty Start Date End Date Daisha Crane MD 230 [place] [address] PCP - General Family Medicine 11/01/18 Alissa Santillan MD [address] [place] [address] Rheumatology 11/09/24 Sharon Guardado [address] 3rd [place] [address] Cardiology 11/13/24 Cedric Lujan MD [address] [place] [address] Orthopaedic Surgery 11/23/24 Rory Angeles MD [address] [place] [address] Pain Medicine 02/06/25 Jairon Crawford OD [facility] [address] [place] [address] Optometry 03/07/25 Laura Velarde MD Rheumatology 03/28/25 documented as of this encounter
--- OUTSIDE RECORDS SUMMARY | 2025-07-13 09:58 | XMS_ITS | Encounter Summary ---
Author Organization [employer] Address [address] [place] [address] 7t [place] [address] Care Team Providers Care Hogshead Builder Name Role Phone Daisha Crane MD Primary Care Provider +1- [phone] Lisa Liao PharmD Unavailable Alissa Santillan MD Unavailable Sharon Guardado Unavailable Cedric Lujan MD Unavailable Rory Angeles MD Unavailable Jairon Crawford OD Unavailable Reason for Visit * Reason Onset Date Comments Med Refill 06/07/2023 Encounter Details Date Type Department Care Team (Late st Contact Info) Description 06/07/2023 Telephone [facility] MED[facility]INE 230 [place], [place] [phone] Hiram Palma MD 230 [place], [place] [phone] Med Refill Social History Tobacco Use Types [...] MG immediate release tablet Please sent to [facility] - [place], [place] - [address] [place] [address] documented in this encounter Plan of Treatment Upcoming Encounters Date Type Department Care Team (Late st Contact Info) Description 07/20/2025 9:00 AM EDT Clinical Support [facility] 230 [place] [address] Loyda Banda RN 505 [place] [address] documented as of this encounter Goals Goal [...] as of this encounter Care Teams Hogshead Builder Relationship Specialty Start Date End Date Daisha Crane MD 230 [place] [address] PCP - General Family Medicine 11/01/18 Lisa Liao, PharmD 230 [place] [address] Pharmacist Internal Medicine 04/06/23 02/02/25 Alissa Santillan MD [address] [place] [address] Rheumatology 11/09/24 Sharon Guardado [address] 3rd [place] [address] Cardiology 11/13/24 Cedric Lujan MD [address] [place] [address] Orthopaedic Surgery 11/23/24 Rory Angeles MD [address] [place] [address] Pain Medicine 02/06/25 Jairon Crawford OD [facility] [address] [place] [address] Optometry 03/07/25 Laura Velarde MD Rheumatology 03/28/25 documented as of this encounter
--- OUTSIDE RECORDS SUMMARY | 2025-07-13 09:58 | XMS_ITS | Encounter Summary ---
Author Organization [employer] Address 75 [facility] 7t [place] [address] Care Team Providers Care Granite Polisher Name Role Phone Daisha Crane MD Primary Care Provider +1- [phone] Alissa Santillan MD Unavailable Sharon Guardado Unavailable Cedric Lujan MD Unavailable Rory Angeles MD Unavailable Jairon Crawford OD Unavailable Reason for Visit * Reason Comments Med Refill Encounter Details Date Type Department Care Team (Late st Contact Info) Description 07/08/2025 Refill [facility] 230 [place], [place] [phone] Lisa Liao, PharmD 230 [place], [place] [phone] Hypertension, unspecified type Social History Tobacco Use [...] Clinical Support [facility] 230 [place] [address] Loyda Banda RN 505 [place] [address] documented as of this encounter Goals Goal [...] documented as of this encounter Care Teams Granite Polisher Relationship Specialty Start Date End Date Daisha Crane MD 230 [place] [address] PCP - General Family Medicine 11/01/18 Alissa Santillan MD [address] [place] [address] Rheumatology 11/09/24 Sharon Guardado [address] 3rd [place] [address] Cardiology 11/13/24 Cedric Lujan MD [address] [place] [address] Orthopaedic Surgery 11/23/24 Rory Angeles MD [address] [place] [address] Pain Medicine 02/06/25 Jairon Crawford OD [facility] [address] [address] Optometry 03/07/25 Laura Velarde MD Rheumatology 03/28/25 documented as of this encounter
--- OUTSIDE RECORDS SUMMARY | 2025-07-13 09:58 | XMS_ITS | Encounter Summary ---
Author Organization [employer] Address [address] [facility] 7t [place] [address] Care Team Providers Care Telephone Clerk Telegraph Office Name Role Phone Daisha Crane MD Primary Care Provider +1- [phone] Lisa Liao PharmD Unavailable Alissa Santillan MD Unavailable Sharon Guardado Unavailable Cedric Lujan MD Unavailable Rory Angeles MD Unavailable Jairon Crawford OD Unavailable Encounter Details Date Type Department Care Team (Late st Contact Info) Description 10/30/2024 Telephone [facility] PEDS [address] [place], [place] [phone] Daisha Crane MD 230 [place], [place] [phone] Social History Tobacco Use Types Packs/Day Years [...] the past 12 months, has t he [employer] gas, oil or [employer] threatened to shut off services in your [...] Description 07/20/2025 9:00 AM EDT Clinical Support [facility] 230 [place] [address] Loyda Banda RN 505 [place] [address] documented as of this encounter Goals Goal [...] documented as of this encounter Care Teams Telephone Clerk Telegraph Office Relationship Specialty Start Date End Date Daisha Crane MD 230 [place] [address] PCP - General Family Medicine 11/01/18 Lisa Liao, Nidia 230 [place] [address] Pharmacist Internal Medicine 04/06/23 02/02/25 Alissa Santillan MD [address] [place] [address] Rheumatology 11/09/24 Sharon Guardado [address] 3rd [place] [address] Cardiology 11/13/24 Cedric Lujan MD [address] [place] [address] Orthopaedic Surgery 11/23/24 Rory Angeles MD [address] [place] [address] Pain Medicine 02/06/25 Jairon Crawford OD [facility] [address] [place] [address] Optometry 03/07/25 Laura Velarde MD Rheumatology 03/28/25 documented as of this encounter
--- OUTSIDE RECORDS SUMMARY | 2025-07-13 09:58 | XMS_ITS | Encounter Summary ---
Author Organization [employer] Address [address] [place] [address] 7t [place] [address] Care Team Providers Care Outreach Manager Name Role Phone Daisha Crane MD Primary Care Provider +1- [phone] Lisa Liao PharmD Unavailable Alissa Santillan MD Unavailable Sharon Guardaod Unavailable Cedric Lujan MD Unavailable Rory Angeles MD Unavailable Jairon Crawford OD Unavailable Reason for Visit * Reason Onset Date Comments Med Refill 07/07/2023 Encounter Details Date Type Department Care Team (Late st Contact Info) Description 07/07/2023 Telephone [facility] 230 [place], [place] [phone] Daisha Crane MD 230 [place], [place] [phone] Med Refill Social History Tobacco Use Types [...] to [facility] - [place], [place] - [address] [place] [address] documented in this encounter Plan of Treatment Upcoming Encounters Date Type Department Care Team (Late st Contact Info) Description 07/20/2025 9:00 AM EDT Clinical Support [facility] 230 [place] [address] Loyda Banda RN 505 [place] [address] documented as of this encounter Goals Goal [...] documented as of this encounter Care Teams Outreach Manager Relationship Specialty Start Date End Date Daisha Crane MD [address] [place] [address] PCP - General Family Medicine 11/01/18 Lisa Liao PharmD [address] [place] [address] Pharmacist Internal Medicine 04/06/23 02/02/25 Alissa Santillan MD [address] [place] [address] Rheumatology 11/09/24 Sharon Guardado [address]rd [place] [address] Cardiology 11/13/24 Cedric Lujan MD [address] [place] [address] Orthopaedic Surgery 11/23/24 Rory Angeles MD [address] [place] [address] Pain Medicine 02/06/25 Jairon Crawford OD [facility] [address] [place] [address] Optometry 03/07/25 Laura Velarde MD Rheumatology 03/28/25 documented as of this encounter
--- OUTSIDE RECORDS SUMMARY | 2025-07-13 09:58 | XMS_ITS | Encounter Summary ---
Author Organization [employer] Address 75 [facility] 7t [place] [address] Care Team Providers Care Cooperage Shop Supervisor Name Role Phone Daisha Crane MD Primary Care Provider + [phone] Lisa Liao PharmD Unavailable [phone] Alissa Santillan MD Unavailable Sharon Guardado Unavailable Cedric Lujan MD Unavailable Rory Angeles MD Unavailable Jairon Crawford OD Unavailable Encounter Details Date Type Department Care Team (Late st Contact Info) Description 11/19/2022 Orders Only [facility] MEDICINE [address] [place] [phone] Radha Johnson LPN Social History Tobacco Use [...] Clinical Support [facility] [address] [place] [address] Loyda Banda, RN 505 [place] [address] documented as of this encounter Visit Diagnoses Not on filedocumented in this encounter Care Teams Cooperage Shop Supervisor Relationship Specialty Start Date End Date Daisha Crane MD 230 [place] [address] PCP - General Family Medicine 11/01/18 Lisa Liao, PharmD 230 [place] [address] Pharmacist Internal Medicine 04/06/23 02/02/25 Alissa Santillan MD [address] [place] [address] Rheumatology 11/09/24 Sharon Guardado [address] 3rd [place] [address] Cardiology 11/13/24 Cedric Lujan MD [address] [place] [address] Orthopaedic Surgery 11/23/24 Rory Angeles MD [address] [place] [address] Pain Medicine 02/06/25 Jairon Crawford OD [facility] [address] [place] [address] Optometry 03/07/25 Laura Velarde MD Rheumatology 03/28/25 documented as of this encounter
--- OUTSIDE RECORDS SUMMARY | 2025-07-13 09:58 | XMS_ITS | Encounter Summary ---
Author Organization [employer] Address 75 [facility] 7t [place] [address] Care Team Providers Care Rocket Scientist Name Role Phone Daisha Crane MD Primary Care Provider + [phone] Lisa Liao PharmD Unavailable Alissa Santillan MD Unavailable Sharon Guardado Unavailable Cedric Lujan MD Unavailable Rory Angeles MD Unavailable Jairon Crawford OD Unavailable Encounter Details Date Type Department Care Team (Late st Contact Info) Description 10/22/2022 Orders Only [facility] 230 [place], [place] [phone] Radha Johnson LPN Social History Tobacco Use [...] Description 07/20/2025 9:00 AM EDT Clinical Support [facility] MEDICINE 230 [place], [place] [phone] Loyda Banda RN 505 [place], [place] [phone] documented as of this encounter Visit Diagnoses Not on filedocumented in this encounter Care Teams Rocket Scientist Relationship Specialty Start Date End Date Daisha Crane MD [address] [place] [address] PCP - General Family Medicine 11/01/18 Lisa Liao, GenevaD [address] [place] [address] Pharmacist Internal Medicine 04/06/23 02/02/25 Alissa Santillan MD [address] [place] [address] Rheumatology 11/09/24 Sharon Guardado [address] 3rd [place] [address] Cardiology 11/13/24 Cedric Lujan MD [address] [place] [address] Orthopaedic Surgery 11/23/24 Rory Angeles MD [address] [place] [address] Pain Medicine 02/06/25 Jairon Crawford OD [facility] [address] [place] [address] Optometry 03/07/25 Laura Velarde MD Rheumatology 03/28/25 documented as of this encounter
--- OUTSIDE RECORDS SUMMARY | 2025-07-13 09:58 | XMS_ITS | Encounter Summary ---
Author Organization [employer] Address 75 [facility] 7t [place] [address] Care Team Providers Care Production Sound Mixer Name Role Phone Daisha Crane MD Primary Care Provider +1- [phone] Lisa Liao PharmD Unavailable Alissa Santillan MD Unavailable Sharon Guardado Unavailable Cedric Lujan MD Unavailable Rory Angeles MD Unavailable Jairon Crawford OD Unavailable Reason for Visit * Reason Onset Date Comments Med Refill 06/05/2024 Encounter Details Date Type Department Care Team (Late st Contact Info) Description 06/05/2024 Telephone [facility] 230 [place], [place] [phone] Daisha Crane MD 230 [place], [place] [phone] Med Refill Social History Tobacco Use Types [...] be sent to: [facility] - [place], [place] - [address] [place] [address] documented in this encounter Plan of Treatment Upcoming Encounters Date Type Department Care Team (Late st Contact Info) Description 07/20/2025 9:00 AM EDT Clinical Support [facility] 230 [place] [address] Loyda Banda RN 505 [place], [place] [phone] documented as of this encounter Goals Goal [...] documented as of this encounter Care Teams Production Sound Mixer Relationship Specialty Start Date End Date Daisha Crane MD 230 [place] [address] PCP - General Family Medicine 11/01/18 Lisa Liao, PharmD [address] [place] [address] Pharmacist Internal Medicine 04/06/23 02/02/25 Alissa Santillan MD [address] [place] [address] Rheumatology 11/09/24 Sharon Guardado [address] 3rd [place] [address] Cardiology 11/13/24 Cedric Lujan MD [address] [place] [address] Orthopaedic Surgery 11/23/24 Rory Angeles MD [address] [place] [address] Pain Medicine 02/06/25 Jairon Crawford OD [facility] [address] [place] [address] Optometry 03/07/25 Laura Velarde MD Rheumatology 03/28/25 documented as of this encounter
--- OUTSIDE RECORDS SUMMARY | 2025-07-13 09:58 | XMS_ITS | Encounter Summary ---
Author Organization [employer] Address [address] [facility] 7t [place] [address] Care Team Providers Care Slubber Operator Name Role Phone Daisha Crane MD Primary Care Provider +1- [phone] Alissa Santillan MD Unavailable Sharon Guardado Unavailable Cedric Lujan MD Unavailable Rory Angeles MD Unavailable Jairon Crawford OD Unavailable Reason for Visit * Reason Onset Date Comments Med Refill 06/12/2025 Encounter Details Date Type Department Care Team (Late st Contact Info) Description 06/12/2025 Telephone [facility] 230 [place], [place] [phone] Daisha Crane MD 230 [place], [place] [phone] Med Refill Social History Tobacco Use Types [...] immediate release tablet To be sent to: [facility] - [place], [place] - [address] [facility] documented in this encounter Plan of Treatment Upcoming Encounters Date Type Department Care Team (Late st Contact Info) Description 07/20/2025 9:00 AM EDT Clinical Support [facility] MED[facility]INE 230 [place] [address] Loyda Banda, SO 505 [place] [address] documented as of this encounter Goals Goal [...] documented as of this encounter Care Teams Slubber Operator Relationship Specialty Start Date End Date Daisha Crane MD [address] [place] [address] PCP - General Family Medicine 11/01/18 Alissa Santillan MD [address] [place] [address] Rheumatology 11/09/24 Sharon Guardado [address] 3rd [place] [address] Cardiology 11/13/24 Cedric Lujan MD [address] [place] [address] Orthopaedic Surgery 11/23/24 Rory Angeles MD [address] [place] [address] Pain Medicine 02/06/25 Jairon Crawford OD [facility] [address] [place] [address] Optometry 03/07/25 Laura Velarde MD Rheumatology 03/28/25 documented as of this encounter
--- OUTSIDE RECORDS SUMMARY | 2025-07-13 09:58 | XMS_ITS | Encounter Summary ---
Author Organization [employer] Address [address] [facility] 7t [place] [address] Care Team Providers Care Cribber Name Role Phone Daisha Crane MD Primary Care Provider +1- [phone] Alissa Santillan MD Unavailable Sharon Guardado Unavailable Cedric Lujan MD Unavailable Rory Angeles MD Unavailable Jairon Crawford OD Unavailable Reason for Visit * Reason Onset Date Comments Med Refill 07/10/2025 Encounter Details Date Type Department Care Team (Late st Contact Info) Description 07/10/2025 Refill [facility] 230 [place], [place] [phone] Daisha Crane MD 230 [place], [place] [phone] Pain Social History Tobacco Use Types Packs/Day [...] encounter Miscellaneous Notes * Telephone Encounter - Bryce Jenkins - 07/10/2025 1:58 PM EDT Tc from pt requesting medication refill for oxyCODONE (Roxicodone) 5 MG immediate release tablet documented in this encounter Plan of Treatment Upcoming Encounters Date Type Department Care Team (Late st Contact Info) Description 07/20/2025 9:00 AM EDT Clinical Support [facility] 230 [place] [address] Loyda Banda RN 505 [place], [place] [phone] documented as of this encounter Goals Goal Patient Goal Type Associated Problems Recent Progress Patient-Stated? Author Blood Pressure < 140/90 Blood Pressure 129/69(2024 10:12 AM EDT) No Lisa Anguiano PharmD Hemoglobin A1c < 8 Result Component 6.4(05/07/202 5 10:40 AM EDT) Lisa Cadet PharmD documented as of this encounter Visit Diagnoses Diagnosis Pain Generalized pain documented in this encounter Additional Health Concerns Assessment Noted Time PHQ-9 Depression Total Score: 7 03/07/20 25 10:43 AM EDT documented as of this encounter Care Teams Cribber Relationship Specialty Start Date End Date Daisha Crane MD 230 [place] [address] PCP - General Family Medicine 11/01/18 Alissa Santillan MD [address] [place] [address] Rheumatology 11/09/24 Sharon Guardado [address] 3rd [place] [address] Cardiology 11/13/24 Cedric Lujan MD [address] [place] [address] Orthopaedic Surgery 11/23/24 Rory Angeles MD [address] [place] [address] Pain Medicine 02/06/25 Jairon Crawford OD [facility] [address] [place] [address] Optometry 03/07/25 Laura Velarde MD Rheumatology 03/28/25 documented as of this encounter
--- OUTSIDE RECORDS SUMMARY | 2025-07-13 09:58 | XMS_ITS | Encounter Summary ---
Author Organization [employer] Address 75 [facility] 7t [place] [address] Care Team Providers Care Finishing Technician Name Role Phone Daisha Crane MD Primary Care Provider +1- [phone] Lisa Liao PharmD Unavailable +[phone] Alissa Santillan MD Unavailable Sharon Guardado Unavailable Cedric Lujan MD Unavailable Rory Angeles MD Unavailable Jairon Crawford OD Unavailable Encounter Details Date Type Department Care Team (Late st Contact Info) Description 12/08/[address] [facility] MEDICINE 230 [place], [place] [phone] Daisha Crane MD 230 [place], [place] [phone] Social History Tobacco Use Types Packs/Day Years [...] Clinical Support [facility] 230 [place] [address] Loyda Banda, RN 505 [place] [address] documented as of this encounter Procedures Procedure [...] documented as of this encounter Care Teams Finishing Technician Relationship Specialty Start Date End Date Daisha Crane MD 230 [place] [address] PCP - General Family Medicine 11/01/18 Lisa Liao PharmD [address] [place] [address] Pharmacist Internal Medicine 04/06/23 02/02/25 Alissa Santillan MD [address] [place] [address] Rheumatology 11/09/24 Sharon Guardado [address] 3rd [place] [address] Cardiology 11/13/24 Cedric Lujan MD [address] [place] [address] Orthopaedic Surgery 11/23/24 Rory Angeles MD [address] [place] [address] Pain Medicine 02/06/25 Jairon Crawford OD [facility] [address] [place] [address] Optometry 03/07/25 Laura Velarde MD Rheumatology 03/28/25 documented as of this encounter
--- OUTSIDE RECORDS SUMMARY | 2025-07-13 09:58 | XMS_ITS | Encounter Summary ---
Author Organization [employer] Address 75 [facility] 7t [place] [address] Care Team Providers Care New Car Inspector Name Role Phone Daisha Crane MD Primary Care Provider +1- [phone] Lisa Liao PharmD Unavailable Alissa Santillan MD Unavailable Sharon Guardado Unavailable Cedric Lujan MD Unavailable Rory Angeles MD Unavailable Jairon Crawford OD Unavailable Encounter Details Date Type Department Care Team (Late st Contact Info) Description 10/14/2022 [facility] Only [facility] 230 [place], [place] [phone] Daisha Crane MD 230 [place], [place] [phone] Social History Tobacco Use Types Packs/Day Years [...] 07/20/2025 9:00 AM EDT Clinical Support [facility] MEDICINE 230 [place], [place] [phone] Loyda Banda, RN 505 [place] [address] documented as of this encounter Visit Diagnoses Not on filedocumented in this encounter Care Teams New Car Inspector Relationship Specialty Start Date End Date Daisha Crane MD 230 [place] [address] PCP - General Family Medicine 11/01/18 Lisa Liao, GenevaD 230 [place] [address] Pharmacist Internal Medicine 04/06/23 02/02/25 Alissa Santillan MD [address] [place] [address] Rheumatology 11/09/24 Sharon Guardado [address] 3rd [place] [address] Cardiology 11/13/24 Cedric Lujan MD [address] [place] [address] Orthopaedic Surgery 11/23/24 Rory Angeles MD [address] [place] [address] Pain Medicine 02/06/25 Jairon Crawford OD [facility] [address] [place] [address] Optometry 03/07/25 Laura Velarde MD Rheumatology 03/28/25 documented as of this encounter
--- OUTSIDE RECORDS SUMMARY | 2025-07-13 09:58 | XMS_ITS | Encounter Summary ---
Author Organization [employer] Address [address] [place] [address] 7t [place] [address] Care Team Providers Care Hob Mill Operator Name Role Phone Daisha Crane MD Primary Care Provider +1- [phone] Lisa Liao PharmD Unavailable Alissa Santillan MD Unavailable Sharon Guardado Unavailable Cedric Lujan MD Unavailable Rory Angeles MD Unavailable Jairon Crawford OD Unavailable Encounter Details Date Type Department Care Team (Late st Contact Info) Description 06/01/2023 Abstract [facility] 230 [place], [place] [phone] Daisha Crane MD 230 [place], [place] [phone] Social History Tobacco Use Types Packs/Day Years [...] 9:00 AM EDT Clinical Support [facility] 230 [place] [address] Loyda Banda RN [address] [place] [address] documented as of this encounter Goals Goal [...] documented as of this encounter Care Teams Hob Mill Operator Relationship Specialty Start Date End Date Daisha Crane MD 230 [place] [address] PCP - General Family Medicine 11/01/18 Lisa Liao, PharmD 230 [place] [address] Pharmacist Internal Medicine 04/06/23 02/02/25 Alissa Santillan MD [address] [place] [address] Rheumatology 11/09/24 Sharon Guardado [address] 3rd [place] [address] Cardiology 11/13/24 Cedric Lujan MD [address] [place] [address] Orthopaedic Surgery 11/23/24 Rory Angeles MD [address] [place] [address] Pain Medicine 02/06/25 Jairon Crawford, [facility] [address] [place] [address] Optometry 03/07/25 Laura Velarde MD Rheumatology 03/28/25 documented as of this encounter
--- OUTSIDE RECORDS SUMMARY | 2025-07-13 09:58 | XMS_ITS | Encounter Summary ---
Author Organization [employer] Address 75 [facility] 7t [place] [address] Care Team Providers Care Cold Saw Operator Name Role Phone Daisha Crane MD Primary Care Provider +1- [phone] Lisa Liao PharmD Unavailable Alissa Santillan MD Unavailable Sharon Guardado Unavailable Cedric Lujan MD Unavailable Rory Angeles MD Unavailable Jairon Crawford OD Unavailable Reason for Visit * Reason Comments Med Refill Encounter Details Date Type Department Care Team (Late st Contact Info) Description 07/21/2023 Refill [facility] 230 [place], [place] [phone] Daisha Crane MD 230 [place], [place] [phone] Pulmonary emphysema, unspecified emphysema type (CMS/HCC) (Primary [...] 9:00 AM EDT Clinical Support [facility] 230 [facility] [place] [address] Loyda Banda RN 505 [place] [address] documented as of this encounter Goals Goal [...] documented as of this encounter Care Teams Cold Saw Operator Relationship Specialty Start Date End Date Daisha Crane MD 230 [place] [address] PCP - General Family Medicine 11/01/18 Lisa Liao, PharmD 230 [place] [address] Pharmacist Internal Medicine 04/06/23 02/02/25 Alissa Santillan MD [address] [place] [address] Rheumatology 11/09/24 Sharon Guardado [address] 3rd [place] [address] Cardiology 11/13/24 Cedric Lujan MD [address] [place] [address] Orthopaedic Surgery 11/23/24 Rory Angeles MD [address] [place] [address] Pain Medicine 02/06/25 Jairon Crawford OD [facility] [address] [place] [address] Optometry 03/07/25 Laura Velarde MD Rheumatology 03/28/25 documented as of this encounter
--- OUTSIDE RECORDS SUMMARY | 2025-07-13 09:58 | XMS_ITS | Encounter Summary ---
Author Organization [employer] Address [address] [place] [address] 7t [place] [address] Care Team Providers Care Recenterer Name Role Phone Daisha Crane MD Primary Care Provider +1- [phone] Lisa Liao PharmD Unavailable [phone] Alissa Santillan MD Unavailable Sharon Guardado Unavailable Cedric Lujan MD Unavailable Rory Angeles MD Unavailable Jairon Crawford OD Unavailable Reason for Visit * Reason Onset Date Comments Med Refill 03/15/2023 Encounter Details Date Type Department Care Team (Late st Contact Info) Description 03/15/2023 Telephone [facility] MEDICINE 230 [place], [place] [phone] Daisha Crane MD 230 [place], [place] [phone] Med Refill Social History Tobacco Use Types [...] Description 07/20/2025 9:00 AM EDT Clinical Support [facility] 230 [place] [address] Loyda Banda RN 505 [place] [address] documented as of this encounter Visit Diagnoses Not on filedocumented in this encounter Additional Health Concerns Assessment Noted Time PHQ-9 Depression Total Score: 0 11/23/19 10:39 AM EST documented as of this encounter Care Teams Recenterer Relationship Specialty Start Date End Date Daisha Crane MD 230 [place] [address] PCP - General Family Medicine 11/01/18 Lisa Liao, GenevaD 230 [place] [address] Pharmacist Internal Medicine 04/06/23 02/02/25 Alissa Santillan MD [address] [place] [address] Rheumatology 11/09/24 Sharon Guardado [address] 3rd [place] [address] Cardiology 11/13/24 Cedric Lujan MD [address] [place] [address] Orthopaedic Surgery 11/23/24 Rory Angeles MD [address] [place] [address] Pain Medicine 02/06/25 Jairon Crawford OD [facility] [address] [place] [address] Optometry 03/07/25 Laura Velarde MD Rheumatology 03/28/25 documented as of this encounter
--- OUTSIDE RECORDS SUMMARY | 2025-07-13 09:58 | XMS_ITS | Encounter Summary ---
Author Organization [employer] Address [address] [facility] 7t [place] [address] Care Team Providers Care Burrer Marker Axle Name Role Phone Daisha Crane MD Primary Care Provider +1- [phone] Lisa Liao PharmD Unavailable [phone] Alissa Santillan MD Unavailable Sharon Guardado Unavailable Cedric Lujan MD Unavailable Rory Angeles MD Unavailable Jairon Crawford OD Unavailable Reason for Visit * Reason Comments Med Refill Encounter Details Date Type Department Care Team (Late st Contact Info) Description 08/31/2023 Refill [facility] 230 [place], [place] [phone] Key Gregory MD 230 [place], [place] [phone] Tinea versicolor Social History Tobacco Use Types [...] 9:00 AM EDT Clinical Support [facility] 230 [place] [address] Loyda Banda RN 505 [place] [address] documented as of this encounter Goals Goal [...] documented as of this encounter Care Teams Burrer Marker Axle Relationship Specialty Start Date End Date Daisha Crane MD 230 [place] [address] PCP - General Family Medicine 11/01/18 Lisa Liao, Nidia 230 [place] [address] Pharmacist Internal Medicine 04/06/23 02/02/25 Alissa Santillan MD [address] [place] [address] Rheumatology 11/09/24 Sharon Guardado [address] 3rd [place] [address] Cardiology 11/13/24 Cedric Lujan MD [address] [place] [address] Orthopaedic Surgery 11/23/24 Rory Angeles MD [address] [place] [address] Pain Medicine 02/06/25 Jairon Crawford OD [facility] [address] [place] [address] Optometry 03/07/25 Laura Velarde MD Rheumatology 03/28/25 documented as of this encounter
--- OUTSIDE RECORDS SUMMARY | 2025-07-13 09:58 | XMS_ITS | Encounter Summary ---
Author Organization [employer] Address 75 [facility] 7t [place] [address] Care Team Providers Care Documentation Writer Name Role Phone Daisha Crane MD Primary Care Provider + [phone] Lisa Liao PharmD Unavailable Alissa Santillan MD Unavailable Sharon Guardado Unavailable Cedric Lujan MD Unavailable Rory Angeles MD Unavailable Jairon Crawford OD Unavailable Encounter Details Date Type Department Care Team (Late st Contact Info) Description 03/05/2023 Orders Only [facility] MEDICINE [address] [place] [phone] Radha Johnson LPN Social History Tobacco Use [...] Support [facility] MEDICINE [address] [place] [address] Lyoda Banda, RN 505 [place] [address] documented as of this encounter Visit Diagnoses Not on filedocumented in this encounter Additional Health Concerns Assessment Noted Time PHQ-9 Depression Total Score: 0 11/23/19 10:39 AM EST documented as of this encounter Care Teams Documentation Writer Relationship Specialty Start Date End Date Daisha Crane MD 230 [place] [address] PCP - General Family Medicine 11/01/18 Lisa Liao, GenevaD 230 [place] [address] Pharmacist Internal Medicine 04/06/23 02/02/25 Alissa Santillan MD [address] [place] [address] Rheumatology 11/09/24 Sharon Guardado [address] 3rd [place] [address] Cardiology 11/13/24 Cedric Lujan MD [address] [place] [address] Orthopaedic Surgery 11/23/24 Rory Angeles MD [address] [place] [address] Pain Medicine 02/06/25 Jairon Crawford OD [facility] [address] [place] [address] Optometry 03/07/25 Laura Velarde MD Rheumatology 03/28/25 documented as of this encounter
--- OUTSIDE RECORDS SUMMARY | 2025-07-13 09:58 | XMS_ITS | Encounter Summary ---
Author Organization [employer] Address 75 [facility] 7t [place] [address] Care Team Providers Care Wheel Polisher Name Role Phone Daisha Crane MD Primary Care Provider +1- [phone] Alissa Santillan MD Unavailable Sharon Guardado Unavailable Cedric Lujan MD Unavailable Rory Angeles MD Unavailable Jairon Crawford OD Unavailable Reason for Visit * Reason Comments Med Refill Encounter Details Date Type Department Care Team (Late st Contact Info) Description 07/11/2025 Refill [facility] 230 [place], [place] [phone] Daisha Crane MD 230 [place], [place] [phone] Vitamin D deficiency Social History Tobacco Use Types Packs/Day Years [...] 07/20/2025 9:00 AM EDT Clinical Support [facility] [address] [place] [address] Loyda Banda RN 505 [place] [address] documented as of this encounter Goals Goal Patient Goal Type Associated Problems Recent Progress Patient-Stated? Author Blood Pressure < 140/90 Blood Pressure 129/69(2024 10:12 AM EDT) No Piers-Gambl saurav, Lisa, PharmD Hemoglobin A1c < 8 Result Component 6.4( 10:40 AM EDT) No Piers-Gambl e, Lisa, PharmD documented as of this encounter Visit Diagnoses Diagnosis Vitamin D deficiency documented in this encounter Additional Health Concerns Assessment Noted Time PHQ-9 Depression Total Score: 7 03/07/20 25 10:43 AM EDT documented as of this encounter Care Teams Wheel Polisher Relationship Specialty Start Date End Date Daisha Crane MD 230 [place] [address] PCP - General Family Medicine 11/01/18 Alissa Santillan MD [address] [place] [address] Rheumatology 11/09/24 Sharon Guardado [address] 3rd [place] [address] Cardiology 11/13/24 Cedric Lujan MD [address] [place] [address] Orthopaedic Surgery 11/23/24 Rroy Angeles MD [address] [place] [address] Pain Medicine 02/06/25 Jairon Crawford OD [facility] [address] [place] [address] Optometry 03/07/25 Laura Velarde MD Rheumatology 03/28/25 documented as of this encounter
--- OUTSIDE RECORDS SUMMARY | 2025-07-13 09:58 | XMS_ITS | Encounter Summary ---
Author Organization [employer] Address 75 [facility] 7t [place] [address] Care Team Providers Care Industrial Relations Analyst Name Role Phone Daisha Crane MD Primary Care Provider +1- [phone] Lisa Liao PharmD Unavailable Alissa Santillan MD Unavailable Sharon Guardado Unavailable Cedric Lujan MD Unavailable Rory Angeles MD Unavailable Jairon Crawford OD Unavailable Encounter Details Date Type Department Care Team (Late st Contact Info) Description 12/16/2022 Orders Only [facility] & PEDS [address] [place], [place] [phone] Jenn Polk LPN Social History Tobacco Use [...] EDT Clinical Support [facility]INE 230 [place] [address] Loyda Banda, RN [address] [place] [address] documented as of this encounter Visit Diagnoses Not on filedocumented in this encounter Additional Health Concerns Assessment Noted Time PHQ-9 Depression Total Score: 0 11/23/19 10:39 AM EST documented as of this encounter Care Teams Industrial Relations Analyst Relationship Specialty Start Date End Date Daisha Crane MD 230 [place] [address] PCP - General Family Medicine 11/01/18 Lisa Liao PharmD 230 [place] [address] Pharmacist Internal Medicine 04/06/23 02/02/25 Alissa Santillan MD [address] [place] [address] Rheumatology 11/09/24 Sharon Guardado [address] 3rd [place] [address] Cardiology 11/13/24 Cedric Lujan MD [address] [place] [address] Orthopaedic Surgery 11/23/24 Rory Angeles MD [address] [place] [address] Pain Medicine 02/06/25 Jairon Crawford OD [facility] [address] [place] [address] Optometry 03/07/25 Laura Velarde MD Rheumatology 03/28/25 documented as of this encounter
--- OUTSIDE RECORDS SUMMARY | 2025-07-13 09:58 | XMS_ITS | Encounter Summary ---
Author Organization [employer] Address 75 [facility] 7t [place] [address] Care Team Providers Care Steam Turbine Operator Name Role Phone Daisha Crane MD Primary Care Provider + [phone] Lisa Liao PharmD Unavailable Alissa Santillan MD Unavailable Sharon Guardado Unavailable Cedric Lujan MD Unavailable Rory Angeles MD Unavailable Jairon Crawford OD Unavailable Encounter Details Date Type Department Care Team (Latest Contact Info) Description 03/10/2019 Abstract [facility] CONVERSIONS Dental, Provider, DDS Social History [...] Description 07/20/2025 9:00 AM EDT Clinical Support [facility] MEDICINE 230 [place], [place] [phone] Loyda Banda RN 505 [place], [place] [phone] documented as of this encounter Visit Diagnoses Not on filedocumented in this encounter Care Teams Steam Turbine Operator Relationship Specialty Start Date End Date Daisha Crane MD 230 [place] [address] PCP - General Family Medicine 11/01/18 Lisa Liao, Nidia 230 [place] [address] Pharmacist Internal Medicine 04/06/23 02/02/25 Alissa Santillan MD [address] [place] [address] Rheumatology 11/09/24 Sharon Guardado [address] 3rd [place] [address] Cardiology 11/13/24 Cedric Lujan MD [address] [place] [address] Orthopaedic Surgery 11/23/24 Rory Angeles MD [address] [place] [address] Pain Medicine 02/06/25 Jairon Crawford OD [facility] [address] [place] [address] Optometry 03/07/25 Laura Velarde MD Rheumatology 03/28/25 documented as of this encounter
--- OUTSIDE RECORDS SUMMARY | 2025-07-13 09:58 | XMS_ITS | Encounter Summary ---
Author Organization [employer] Address [address] [facility] 7t [place] [address] Care Team Providers Care Fruit Preserver Name Role Phone Daisha Crane MD Primary Care Provider + [phone] Lisa Liao PharmD Unavailable Alissa Santillan MD Unavailable Sharon Guardado Unavailable Cedric Lujan MD Unavailable Rory Angeles MD Unavailable Jairon Crawford OD Unavailable Encounter Details Date Type Department Care Team (Late st Contact Info) Description 03/15/2023 Orders Only [facility] MED & PEDS 505 [place], [place] [phone] Jenn Polk LPN Social History Tobacco Use [...] Clinical Support [facility] MEDICINE 230 [place] [address] Loyda Banda, SO 505 [place] [address] documented as of this encounter Visit Diagnoses Not on filedocumented in this encounter Additional Health Concerns Assessment Noted Time PHQ-9 Depression Total Score: 0 11/23/19 10:39 AM EST documented as of this encounter Care Teams Fruit Preserver Relationship Specialty Start Date End Date Daisha Crane MD 230 [place] [address] PCP - General Family Medicine 11/01/18 Lisa Liao, GenevaD [address] [place] [address] Pharmacist Internal Medicine 04/06/23 02/02/25 Alissa Santillan MD [address] [place] [address] Rheumatology 11/09/24 Sharon Guardado [address] 3rd [place] [address] Cardiology 11/13/24 Cedric Lujan MD [address] [place] [address] Orthopaedic Surgery 11/23/24 Rory Angeles MD [address] [place] [address] Pain Medicine 02/06/25 Jairon Crawford OD [facility] [address] [place] [address] Optometry 03/07/25 Laura Velarde MD Rheumatology 03/28/25 documented as of this encounter
== END 2025-07-13 09:41 | disposition home or self-care (01) ==
PROVIDERS: PCP Family Medicine; Visit Provider Registered Nurse Emergency
DX: M25.511 Pain in right shoulder (principal); G89.29 Other chronic pain; M75.101 Unspecified rotator cuff tear or rupture of right shoulder, not specified as traumatic; M12.811 Other specific arthropathies, not elsewhere classified, right shoulder
CPT/HCPCS: 99213; G2211

== ENCOUNTER → 2025-07-13 09:06 | Outpatient (BNVA) | payer OTHER, SELFPAY | PROVIDERS: PCP Family Medicine; Visit Provider Registered Nurse Emergency | DX: M25.511 Pain in right shoulder (principal); M75.101 Unspecified rotator cuff tear or rupture of right shoulder, not specified as traumatic; M12.811 Other specific arthropathies, not elsewhere classified, right shoulder; G89.29 Other chronic pain | CPT/HCPCS: 99212 ==

== ENCOUNTER 2025-09-07 08:41 | Outpatient (AMB) | payer OTHER, SELFPAY ==
--- OUTSIDE RECORDS SUMMARY | 2025-09-04 09:00 | XMS_ITS | Encounter Summary ---
Author Organization [employer] Address [address] [facility] 7t [place] [address] Care Team Providers Care Record Clerk Salesperson Name Role Phone Daisha Crane MD Primary Care Provider +1- [phone] Alissa Santillan MD Unavailable Sharon Guardado Unavailable Cedric Lujan MD Unavailable Rory Angeles MD Unavailable Jairon Crawford OD Unavailable Reason for Visit * Reason Comments Cough Encounter Details Date Type Department Care Team (Late st Contact Info) Description 09/04/2025 9:00 AM EST Office Visit [facility] [address] [place], [place] [phone] Ruslan Salmon MD [address] [place], [place] [phone] COPD exacerbation (CMS/HCC) ([facility]) (Primary Dx) Social History Tobacco Use Types [...] AM EDT documented as of this encounter Last Filed Vital Signs Vital Sign Reading Time Taken Comments Blood Pressure 116/75 09/04/2025 9:05 AM EST Pulse 62 09/04/2025 9:05 AM EST Temperature 36.7 C (98 F) 09/04/2025 9:05 AM EST Respiratory Rate 20 09/04/2025 9:05 AM EST Oxygen Saturation 98% 09/04/2025 9:05 AM EST Inhaled Oxygen Concentration - - Weight 68 kg (150 lb) 09/04/2025 9:05 AM EST Height 167.6 cm (5' 6 ) 09/04/2025 9:05 AM EST Body Mass Index 24.21 09/04/2025 9:05 AM EST documented in this encounter Progress Notes * Ruslan Salmon MD - 09/04/2025 9:00 AM EST Subjective Patient ID: Patrice Vieyra is a 79 y.o. male. HPI Patrice has 2 week h/o cough productive of green sputum, occasional SOB. No fever, chills, n/v/d, chest pain, or wheezing. Using albuterol HFA 1-2x/day, Incruse Ellipta, Arnuity Ellipta, prednisone 5 mg/day for COPD. Lives alone. 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 Smokes 1/3 PPD. Declines NRT. 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[facility]/HCC) 04/06/2023 Bicuspid aortic valve 04/06/2023 Leg edema 04/06/2023 GERD (gastroesophageal reflux disease) 04/06/2023 residential systemic steroid user 04/06/2023 Osteoporosis 04/06/2023 Heart murmur 10/13/2022 T2DM (type 2 diabetes mellitus) ([facility]) 10/13/2022 Secondary hyperparathyroidism ([facility]) 02/05/2022 Backache 08/03/2013 Tubular adenoma of colon 08/03/2013 HTN (hypertension) 05/05/2012 Chronic obstructive lung disease (HCC) 05/05/2012 Dyslipidemia 05/05/2012 History of prostate cancer 05/05/2012 Other specified health status 06/03/2023 Anemia 11/20/2022 Tobacco dependence 11/20/2022 Rheumatoid arthritis involving multiple sites with positive rheumatoid factor ([facility]) ([facility]) 11/20/2022 The following portions of the chart were reviewed this encounter and updated as appropriate: Review of Systems Constitutional: Negative for fever. Respiratory: Positive for cough and shortness of breath. Cardiovascular: Negative for chest pain. Gastrointestinal: Negative for abdominal pain. Skin: Negative for rash. Neurological: Negative for headaches. Objective Physical Exam Constitutional: Appearance: Normal appearance. HENT: Right Ear: Tympanic membrane, ear canal and external ear normal. Left Ear: Tympanic membrane, ear canal and external ear normal. Nose: Nose normal. Mouth/Throat: Mouth: Mucous membranes are moist. Pharynx: Oropharynx is clear. Eyes: Conjunctiva/sclera: Conjunctivae normal. Pupils: Pupils are equal, round, and reactive to light. Cardiovascular: Rate and Rhythm: Normal rate and regular rhythm. Heart sounds: No murmur heard. Pulmonary: Effort: Pulmonary effort is normal. Breath sounds: Rhonchi (rare diffuse scattered) present. Musculoskeletal: General: Normal range of motion. Cervical back: No tenderness. Skin: Findings: No rash. Neurological: Mental Status: He is alert. Gait: Gait is intact. Psychiatric: Mood and Affect: Mood normal. Behavior: Behavior normal. Procedures Assessment/Plan Diagnoses and all orders for this visit: COPD exacerbation ([facility]) ([facility]) Negative rapid Covid and Influenza tests. Presumptive COPD exacerbation. Advised may use albuterol every 4 hours as needed. Prescribed prednisone (advised to monitor home BG levels), and Augmentin. Return to clinic if not improving - Influenza B (ID NOW Rapid Molecular) - Influenza A (ID NOW Rapid Molecular) - POCT COVID-19 Ag [place] ID NOW Other orders - amoxicillin-clavulanate (Augmentin) 875-125 MG tablet; Take 1 tablet by mouth 2 times daily for 5days. - predniSONE (Deltasone) 20 MG tablet; Take 2 tablets (40 mg) by mouth Once per day for 5 days. documented in this encounter Plan of Treatment Upcoming Encounters Date Type Department Care Team (Late st Contact Info) Description 10/08/2025 2:30 PM EST Telemedicine [facility] [address] [place] [address] Loyda Banda, RN [address] [place] [address] 10/17/2025 9:30 AM EST Office Visit [facility] [address] [place] [address] Daisha Crane MD [address] [place] [address] documented as of this encounter Goals Goal Patient Goal Type Associated Problems Recent Progress Patient-Stated? Author Blood Pressure < 140/90 Blood Pressure 116/75(2024 9:05 AM EST) No Lisa Anguiano PharmD Hemoglobin A1c < 8 Result Component 6.4( 10:40 AM EDT) No Lisa Anguiano, Nidia documented as of this encounter Procedures Procedure Name Priority Date/Time Associated Diagnosis Comments POCT INFLUENZA B (ID NOW RAPID MOLECULAR) Routine 09/04/2025 9:33 AM EST COPD exacerbation (CMS/HCC) (HCC) POCT INFLUENZA A (ID NOW RAPID MOLECULAR) Routine 09/04/2025 9:33 AM EST COPD exacerbation (CMS/HCC) (HCC) POCT COVID-19 AG [place] ID NOW Routine 09/04/2025 9:33 AM EST COPD exacerbation (CMS/HCC) (HCC) documented in this encounter Results * POCT COVID-19 Ag [place] ID NOW (09/04/2025 9:33 AM EST) [facility] Coronavirus Antigen PCR Negative Negative, Indeterminate, None Detected, Invalid, Specimen unsatisfactory for evaluation, Weakly Positive, 2+ Swab 09/04/2025 9:33 AM EST us Ruslan Salmon MD POINT OF CARE TEST ENTER/EDIT OR DERABLES Final Result * Influenza A (ID NOW Rapid Molecular) (09/04/2025 9:33 AM EST) [facility] Influenza A Negative Negative, Indeterminate [facility] Swab 09/04/2025 9:33 AM EST us Ruslan Salmon MD POINT OF CARE TEST ENTER/EDIT OR DERABLES Final Result [facility] [address] [place] [address] [phone] * Influenza B (ID NOW Rapid Molecular) (09/04/2025 9:33 AM EST) [facility] Influenza B Negative Negative, Indeterminate [facility] Swab 09/04/2025 9:33 AM EST us Ruslan Salmon MD POINT OF CARE TEST ENTER/EDIT OR DERABLES Final Result [facility] [address] [place] [address] [phone] documented in this encounter Visit Diagnoses Diagnosis COPD exacerbation (CMS/HCC) (HCC)- Primary Obstructive chronic bronchitis with exacerbation documented in this encounter Additional Health Concerns Assessment Noted Time PHQ-9 Depression Total Score: 7 03/07/20 10:43 AM EDT documented as of this encounter Care Teams Record Clerk Salesperson Relationship Specialty Start Date End Date Daisha Crane MD [address] [place] [address] PCP - General Family Medicine 11/01/18 Alissa Santillan MD [address] [place] [address] Rheumatology 11/09/24 Sharon Guardado [address] 3rd [place] [address] Cardiology 11/13/24 Cedric Lujan MD [address] [place] [address] Orthopaedic Surgery 11/23/24 Rory Angeles MD [address] [place] [address] Pain Medicine 02/06/25 Jairon Crawford OD [facility] [address] [place] [address] Optometry 03/07/25 Laura Velarde MD Rheumatology 03/28/25 documented as of this encounter
--- NOTE | 2025-09-07 08:45 | A.OFFVIS_ITS ---
Vital Signs 09/07/25 08:53 Height 5 ft 6 in Weight 151 lb BMI 24.4 BP 141/64 H Blood Pressure Location Lt brachial Position Sitting Respiration 16 Pulse 70 Pulse Source Pulse Oximeter Pulse Oximetry (%) 97 Oxygen Delivery Method Room Air Intake Visit Reasons: Chronic pain right arm [employer] Required: Yes [employer] Char[employer] Burner Name: Chele [id number] Accompanied by: Daughter Allergies lisinopril (LISINOPRIL) Allergy (Severe, Verified 09/07/25 08:45) Angioedema LAITH Inhibitors Adverse Reaction (Severe, Verified 09/07/25 08:45) Angioedema HPI Comments Details: Visit completed with Verification Clerk Joe [id number] The patient is a 79-year-old male presenting with bruising on the arm and chronic right shoulder pain. The bruising on the arm appeared 1 month ago spontaneously without any known trauma or fall. The patient denies any recent blood pressure checks or use of blood thinners, NSAIDS, Aspirin, Alcohol. The bruising has resolved, and there is no current pain associated with it. The shoulder pain is chronic and has been previously evaluated by orthopedics. The patient is considering shoulder replacement surgery and is seeking a second opinion from another orthopedic surgeon. - Shoulder pain: Chronic, previously evaluated by orthopedics, considering shoulder replacement surgery. Past visit: The patient is a 79-year-old male presenting with right shoulder pain three days status post right diagnostic interscalene nerve block. Prior to intervention, the shoulder pain was severe, consistently rated at 9/10 out of 10. Three days ago, a right diagnostic interscalene nerve block was performed, yielding significant temporary relief, with pain dropping to 3 out of 10. However, as anticipated, the relief was short-lived and lasted only a few hours before returning to its previous severity levels. A stimulator device is being considered for longer-term relief in light of the positive response to the nerve block. - Onset: Chronic - Timing: Present prior to intervention; temporary relief post-block - Quality and Character: Severe - Primary Location: Right shoulder - Exacerbating Factors: Natural course post-medication - Relieving Factors: Interscalene nerve block brought temporary relief - Activities/Functions Interfered: Not detailed but implied impact - Affect: Not explicitly discussed - Analgesia: Pain decreased from 9-10/10 to 3/10 post-interscalene nerve block; considering stimulator for longer-term relief - Adverse Effects: None reported - Activities of Daily Living: Pain impacts daily function despite temporary relief - Aberrant Drug Related Behaviors: None noted COUNT INCLUDES THE [facility] Medical History Abscess, umbilical Ascending aorta dilation Epidermal inclusion cyst Abscess skilled nursing systemic steroid user Osteoporosis Seropositive rheumatoid arthritis History of prostate cancer Arthritis GERD (gastroesophageal reflux disease) COPD (chronic obstructive pulmonary disease) Asthma HTN (hypertension) Surgical History History of open reduction and internal fixation (ORIF) procedure Hx of umbilical hernia repair Hx of eye surgery History of back surgery History of colonoscopy History of removal of cyst History of tonsillectomy and adenoidectomy History of arthroscopy of left shoulder History of prostate surgery Family History Mother History of breast cancer, Onset Age: 87 Father History of asthma Social History Alcohol intake: never Patient Tobacco Use Status: Current everyday Tobacco user Tobacco use type: Cigarette Cigarettes Per Day: 7 Years Smoked: 60 +/- e-Cigarette/Vaping Use: Never Used Current occupational status: retired Current occupation: [employer] Gender identity: Male Review of Systems Const All systems reviewed & are unremarkable except as noted in HPI and below Physical Exam Exam Exam: General: awake, alert, oriented. Answers questions appropriately. Fully engaged in examination. Skin: warm, dry, intact HEENT: Normocephalic. Hearing intact. Cardiac: External chest normal in appearance. Respiratory: No cough, audible wheezing or stridor. Abdomen: without gross distension. MS: No obvious swelling or deformities. No bruising noted at this time. Neurological: Oriented to person, place, time and situation. Thought process intact. No gait abnormalities appreciated. Psychiatric: Appropriate mood and affect. Good judgment and insight. Vital Signs: Last Vital Signs Pulse 70 09/07/25 08:53 Resp 16 09/07/25 08:53 BP 141/64 H 09/07/25 08:53 Pulse Ox 97 09/07/25 08:53 Oxygen Delivery Method Room Air 09/07/25 08:53 BMI result Body Mass Index 24.4 Results Reviewed Results Reviewed: 9/23/24 MR/MR shoulder RT wo con IMPRESSION: 1. Completely torn and retracted supraspinatus tendon with moderate muscle atrophy and mild fatty infiltration. 2. Complete or near-complete tear of the subscapularis tendon with moderate muscle atrophy and mild fatty infiltration. 3. Completely torn and retracted biceps tendon. 4. Superior subluxation of the humeral head with chronic remodeling of the undersurface of the acromion. 5. Mild acromioclavicular and glenohumeral osteoarthritis. Assessment & Plan Assessment & Plan (1) Chronic right shoulder pain: Code(s): M25.511 - Pain in right shoulder; G89.29 - Other chronic pain Category: Medical (2) Rotator cuff tear arthropathy of right shoulder: Code(s): M75.101 - Unspecified rotator cuff tear or rupture of right shoulder, not specified as traumatic; M12.811 - Other specific arthropathies, not elsewhere classified, right shoulder Category: Medical Plan The patient will be referred to [facility] for a second opinion regarding shoulder replacement surgery per their request. It is recommended to bring a copy of the MRI on a disc to the appointment for review by the orthopedic surgeon. If further bruising occurs, the patient should see the primary care physician for blood work to rule out any bleeding disorders. Patient was informed and verbally consented to the use of an ambient scribe for clinic note documentation during this visit. Orders: Referrals Orthopedics Referral G89.29 - Other chronic pain, M12.811 - Other specific arthropathies, not elsewhere classified, right shoulder, M25.511 - Pain in right shoulder, M75.101 - Unspecified rotator cuff tear or rupture of right shoulder, not specified as traumatic Patient Instructions: - Schedule an appointment with [facility] for a second opinion on shoulder surgery. - Bring a copy of the MRI on a disc to the orthopedic appointment. - If further bruising occurs, see your primary care physician for evaluation. Coding Level of Care Code Est Pt Level 3 (67615) Complex EM visit Add On G2211 Diagnoses Chronic right shoulder pain M25.511; G89.29 Rotator cuff tear arthropathy of right shoulder M75.101; M12.811
[2025-09-07 08:53] VITALS: BP 141/64; PULSE 70; RESP 16; O2SAT 97; BMI 24.4
--- OUTSIDE RECORDS SUMMARY | 2025-09-07 09:17 | XMS_ITS | Encounter Summary ---
Author Organization [employer] Address [address] [facility] 7t [place] [address] Care Team Providers Care Master Fire Control Technician Name Role Phone Daisha Crane MD Primary Care Provider +1- [phone] Lisa Liao PharmD Unavailable Alissa Santillan MD Unavailable Sharon Guardado Unavailable Cedric Lujan MD Unavailable Rory Angeles MD Unavailable Jairon Crawford OD Unavailable Reason for Visit * Reason Onset Date Comments Med Refill 06/05/2024 Encounter Details Date Type Department Care Team (Late st Contact Info) Description 06/05/2024 Telephone [facility] [address] [place], [place] [phone] Daisha Crane MD [address] [place], [place] [phone] Med Refill Social History Tobacco Use Types [...] sent to: [facility] - [place], [place] - [address] [place] [address] documented in this encounter Plan of Treatment Upcoming Encounters Date Type Department Care Team (Late st Contact Info) Description 10/08/2025 2:30 PM EST Telemedicine [facility] [address] [place] [address] Loyda Banda, SO [address] [place] [address] 10/17/2025 9:30 AM EST Office Visit [facility] [address] [place] [address] Daisha Crane MD [address] [place], [place] [phone] documented as of this encounter Goals Goal [...] documented as of this encounter Care Teams Master Fire Control Technician Relationship Specialty Start Date End Date Daisha Crane MD [address] [place] [address] PCP - General Family Medicine 11/01/18 Lisa Liao PharmD [address] [place] [address] Pharmacist Internal Medicine 04/06/23 02/02/25 Alissa Santillan MD [address] [place] [address] Rheumatology 11/09/24 Sharon Guardado [address] 3rd [place] [address] Cardiology 11/13/24 Cedric Lujan MD [address] [place] [address] Orthopaedic Surgery 11/23/24 Rory Angeles MD [address] [place] [address] Pain Medicine 02/06/25 Jairon Crawford OD [facility] [address] [place] [address] Optometry 5/7/25 Laura Velarde MD Rheumatology 03/28/25 documented as of this encounter
--- OUTSIDE RECORDS SUMMARY | 2025-09-07 09:17 | XMS_ITS | Encounter Summary ---
Author Organization [employer] Address [address] [place] [address] 7t [place] [address] Care Team Providers Care Information Assurance Manager Name Role Phone Daisha Crane MD Primary Care Provider +1- [phone] Lisa Liao PharmD Unavailable Alissa Santillan MD Unavailable Sharon Guardado Unavailable Cedric Lujan MD Unavailable Rory Angeles MD Unavailable Jairon Crawford OD Unavailable Reason for Visit * Reason Onset Date Comments Med Refill 07/07/2023 Encounter Details Date Type Department Care Team (Late st Contact Info) Description 07/07/2023 Telephone [facility] [address] [place], [place] [phone] Daisha Crane MD [address] [place], [place] [phone] Med Refill Social History Tobacco Use Types [...] MG immediate release tablet Please sent to [facility] - [place], [place] - [address] [place] [address] documented in this encounter Plan of Treatment Upcoming Encounters Date Type Department Care Team (Late st Contact Info) Description 10/08/2025 2:30 PM EST Telemedicine [facility] [address] [place] [address] Loyda Banda RN [address] [place] [address] 10/17/2025 9:30 AM EST Office Visit [facility] [address] [place] [address] Daisha Crane MD [address] [place] [address] documented as of this encounter Goals Goal Patient Goal Type Associated Problems Recent Progress Patient-Stated? Author Blood Pressure < 140/90 Blood Pressure 116/75(2024 9:05 AM EST) No Daveys-Idalmis Donaldsonsa, PharmD Hemoglobin A1c < 8 Result Component 6.4( 10:40 AM EDT) No DaveysLisa Diaz, PharmD documented as of this encounter Visit Diagnoses Not on filedocumented in this encounter Additional Health Concerns Assessment Noted Time PHQ-9 Depression Total Score: 0 11/23/19 23 10:39 AM EST documented as of this encounter Care Teams Information Assurance Manager Relationship Specialty Start Date End Date Daisha Crane MD [address] [place] [address] PCP - General Family Medicine 11/01/18 Lisa Liao, PharmD [address] [place] [address] Pharmacist Internal Medicine 04/06/23 02/02/25 Alissa Santillan MD [address] [place] [address] Rheumatology 11/09/24 Sharon Guardado [address] 3rd [place] [address] Cardiology 11/13/24 Cedric Lujan MD [address] [place] [address] Orthopaedic Surgery 11/23/24 Rory Angeles MD [address] [place] [address] Pain Medicine 02/06/25 Jairon Crawford OD [facility] [address] [place] [address] Optometry 03/07/25 Laura Velarde MD Rheumatology 03/28/25 documented as of this encounter
--- OUTSIDE RECORDS SUMMARY | 2025-09-07 09:17 | XMS_ITS | Encounter Summary ---
Author Organization [employer] Address [address] [facility] 7t [place] [address] Care Team Providers Care Flow Specialist Name Role Phone Daisha Crane MD Primary Care Provider +1- [phone] Lisa Liao PharmD Unavailable Alissa Santillan MD Unavailable Sharon Guardado Unavailable Cedric Lujan MD Unavailable Rory Angeles MD Unavailable Jairon Crawford OD Unavailable Encounter Details Date Type Department Care Team (Late st Contact Info) Description 10/28/2022 Telephone [facility] [address] [place], [place] [phone] Daisha Crane MD [address] [place], [place] [phone] Social History Tobacco Use Types [...] Info) Description 10/08/2025 2:30 PM EST Telemedicine [facility] [address] [place], [place] [phone] Loyda Banda, RN [address] [place] [address] 10/17/2025 9:30 AM EST Office Visit [facility] [address] [place] [address] Daisha Crane MD [address] [place] [address] documented as of this encounter Visit Diagnoses Not on filedocumented in this encounter Care Teams Flow Specialist Relationship Specialty Start Date End Date Daisha Crane MD [address] [place] [address] PCP - General Family Medicine 11/01/18 Lisa Liao PharmD [address] [place] [address] Pharmacist Internal Medicine 04/06/23 02/02/25 Alissa Santillan MD [address] [place] [address] Rheumatology 11/09/24 Sharon Guardado [address] 3rd [place] [address] Cardiology 11/13/24 Cedric Lujan MD [address] [place] [address] Orthopaedic Surgery 11/23/24 Rory Angeles MD [address] [place] [address] Pain Medicine 02/06/25 Jairon Crawford OD [facility] [address] [place] [address] Optometry 03/07/25 Laura Velarde MD Rheumatology 03/28/25 documented as of this encounter
--- OUTSIDE RECORDS SUMMARY | 2025-09-07 09:17 | XMS_ITS | Encounter Summary ---
Author Organization [employer] Address [address] [facility] [facility] [address] [place] [address] Care Team Providers Care Bulk Delivery Driver Name Role Phone Daisha Crane MD Primary Care Provider [phone]- [phone] Lisa Liao PharmD Unavailable Alissa Santillan MD Unavailable Sharon Guardado Unavailable Cedric Lujan MD Unavailable Rory Angeles MD Unavailable Jairon Crawford OD Unavailable Reason for Visit * Reason Comments Med Refill Encounter Details Date Type Department Care Team (Late st Contact Info) Description 11/21/2024 Refill [facility] [address] [place], [place] [id number] Cara Whitfield MD [address] [place], [place] [phone] Pain Social History Tobacco Use Types Packs/Day [...] Info) Description 10/08/2025 2:30 PM EST Telemedicine [facility] [address] [place] [address] Loyda Banda, SO [address] [place] [address] 10/17/2025 9:30 AM EST Office Visit [facility] MEDIC[facility] [address] [place] [address] Daisha Crane MD [address] [place] [address] documented as of this encounter Goals Goal Patient Goal Type Associated Problems Recent Progress Patient-Stated? Author Blood Pressure < 140/90 Blood Pressure 116/75(2024 9:05 AM EST) No Lisa Anguiano, PharmD Hemoglobin A1c < 8 Result Component 6.4( 10:40 AM EDT) No Lisa Anguiano PharmD documented as of this encounter Visit Diagnoses Diagnosis Pain Generalized pain documented in this encounter Additional Health Concerns Assessment Noted Time PHQ-9 Depression Total Score: 0 04/06/20 24 9:11 AM EDT documented as of this encounter Care Teams Bulk Delivery Driver Relationship Specialty Start Date End Date Daisha Crane MD [address] [place] [address] PCP - General Family Medicine 11/01/18 Lisa Liao, GenevaD [address] [place] [address] Pharmacist Internal Medicine 04/06/23 02/02/25 Alissa Santillan MD [address] [place] [address] Rheumatology 11/09/24 Sharon Guardado [address] [place] [address] Cardiology 11/13/24 Cedric Lujan MD [address] [place] [address] Orthopaedic Surgery 11/23/24 Rory Angeles MD [address] [place] [address] Pain Medicine 02/06/25 Jairon Crawford OD [facility] [address] [place] [address] Optometry 03/07/25 Laura Velarde MD Rheumatology 03/28/25 documented as of this encounter
--- OUTSIDE RECORDS SUMMARY | 2025-09-07 09:17 | XMS_ITS | Clinical Summary ---
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 90 tablet 3 024 Active Icosapent Ethyl (Vascepa) 1 g capsuleIndicati ons:Dyslipidemi a Take 2 capsules (2 g) by mouth with breakfast and with evening meal. 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 Active Methotrexate, PF, (Rasuvo) 25 MG/0.5ML solution auto-injectorIn dications:Rheum atoid arthritis involving multiple sites with positive rheumatoid factor (CMS/HCC) (HCC) Inject under the skin. Active carvedilol (Coreg) 6.25 MG tabletIndicatio ns:Hypertension , unspecified type Take by mouth with breakfast and with evening meal. 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 SPRAY 0.1mL IN ONE NOSTRIL. REPEAT IN ALTERNATE NOSTRIL 2-3 MINUTES IF NEEDED. SEEK MEDICAL ATTENTION IMMEDIATELY EVEN IF PATIENT RESPONDS. 2 each 025 Active metFORMIN XR (Glucophage-XR) 500 MG 24 hr tabletIndicatio ns:Type 2 diabetes mellitus without complication, without long-term current use of insulin (HCC) TAKE 1 TABLET BY MOUTH TWICE DAILY IN THE MORNING AND IN THE EVENING DO NOT BREAK, CRUSH, DISSOLVE OR CHEW 180 tablet 3 025 Active TRUEplus Lancets 33G miscIndications :Type 2 diabetes mellitus without complication, without long-term current use of insulin (HCC) USE DIRECTED TO TEST BLOOD SUGAR TWICE DAILY 100 each 11 06/18/2 025 Active docusate sodium (Colace) 100 MG [...] obstructive pulmonary disease, unspecified COPD type (CMS/HCC) ([facility]) INHALE 1 PUFF BY MOUTH EVERY DAY AT THE SAME TIME. RINSE MOUTH AFTER USING. 30 each Active melatonin 3 MG tabletIndicatio ns:Primary insomnia TAKE 1 TABLET BY MOUTH AT BEDTIME NEEDED FOR SLEEP 30 tablet Active Incruse Ellipta 62.5 MCG/ACT aerosol powderIndicatio ns:Simple chronic bronchitis (CMS/HCC) ([facility]) INHALE 1 PUFF BY MOUTH EVERY DAY AT THE SAME TIME RINSE MOUTH AFTER USING 30 each 5 025 Active hydroCHLOROthia zide 12.5 MG tabletIndicatio ns:Hypertension , unspecified type TAKE 1 TABLET BY MOUTH EVERY MORNING 90 tablet 3 Active cholecalciferol (Vitamin D-3) 25 MCG tabletIndicatio ns:Vitamin D deficiency TAKE 1 TABLET BY MOUTH EVERY MORNING 90 tablet Active oxyCODONE (Roxicodone) 5 MG immediate release tabletIndicatio ns:Pain Take 1 tablet (5 mg) by mouth every 8 (eight) hours if needed for severe pain. 56 tablet Active amoxicillin-cla vulanate (Augmentin) 875-125 MG tablet Take 1 tablet by mouth 2 times daily for 5 days. 10 tablet 2024 Active predniSONE (Deltasone) 20 MG tablet Take 2 tablets (40 mg) by mouth Once per day for 5 days. 10 tablet 2024 Active oxyCODONE (Roxicodone) 5 MG immediate release tabletIndicatio ns:Pain Take 1 tablet (5 mg) by mouth every 8 (eight) hours if needed for severe pain. 56 tablet 025 2024 Discontinued(R eorder (will not trigger notification to Pharmacy)) Active Problems Patient Care Coordination No te Formatting of this note migh t be different from the original. Enrolled in [facility] DM and HTN clinic with Lisa Liao PharmD, [facility] [employer] Operator: Denise, member services number [phone] Licensing Worker Agency: [employer] [facility] Problem Noted Date Diagnosed Date Transaminitis 09/04/2024 Overview (03/07/2025): Lab Results Component Value Date TOTALBILIRUB 0.9 10/09/2024 AST 33 10/09/2024 ALT 33 10/09/2024 ALT 30 03/25/2021 ALP 48 10/09/2024 HEPCAB Nonreactive 11/11/2023 HEPAIGM Nonreactive 11/11/2023 HEPBSURFAB NONREACTIVE 11/11/2023 HEPBCOREAB Nonreactive 11/11/2023 HEPBSURFACAG Negative 11/11/2023 FERRITIN 18 (L) 10/09/2024 Assessment & Plan (09/04/2024 5:00 PM EST): -ordered labs 09/04/24 penitentiary (current) use of opiate analgesic 08/03 Neuropathic [...] with visit. He would like referral to [facility] , new referral placed 09/04/24 -[facility] 11/07/24 Assessment & Plan (09/04/2024 4:56 PM EST): -referral placed to Podiatry 04/06/[address] Daniels, he was not happy with with visit. He would like referral to [facility] , new referral placed 09/04/24 Assessment & Plan (04/06/2024 9:55 AM EDT): -referral placed to Podiatry 04/06/2024 Other specified health status 06/03/2023 Overview (03/07/2025): -next physical exam due after 09/04/2025 -eye care facilitated by [facility] -dental home is [facility] in [place]. -healthcare Proxy completed and filed 04/06/2024. Assessment & Plan (09/04/2024 5:02 PM EST): -next physical exam due after 09/04/2025 -eye care facilitated by [facility] -dental home is [facility] in [place]. -healthcare Proxy completed and filed 04/06/2024. Assessment & Plan (04/06/2024 9:51 AM EDT): -next physical exam due after 06/04/2024. -eye care facilitated by [facility]. -dental home is [facility] [place]. -healthcare Proxy completed and filed 04/06/2024. Assessment & Plan (06/04/2023 9:45 AM EDT): -next physical exam due after 06/04/2024. -eye care facilitated by [facility]. -dental home is [facility] [place]. 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 Seen 01/14/25. -Hx of dilated [...] Overview (03/07/2025): -Followed by Sharon AREVALOC for [facility]. -Known hx of Bicuspid aortic valve without stenosis or regurgitation. Followed by echocardiograms. Last echo 08/25/2023 shows mild calcification of the aortic valve, no regurgitation or stenosis. Repeat echo ordered 2023. -Sharon Guardado NP-C for [facility] [...] Overview (05/31/2024): [facility] [...] for September 2024. GERD (gastroesophageal reflux disease) continuous churn buttermaker systemic steroid user 04/06/2023 Osteoporosis 04/06/2023 Overview [...] [facility] smoking cessation group, and [facility] pharmacy smoking cessation clinic Discussed USPSTF [...] [facility] smoking cessation group, and [facility] pharmacy smoking cessation clinic Discussed USPSTF [...] [facility] smoking cessation group, and [facility] pharmacy smoking cessation clinic Discussed USPSTF [...] ng multiple sites with positive rheumatoid factor ([facility]) 11/20/2022 Overview (03/28/2025): Seen by facilities specialist Dr. Minnie Santillan 05/23/24 -On Actemra [...] Plan (09/04/2024 5:00 PM EST): Seen by facilities specialist Dr. Minnie Santillan 05/23/24 -On Actemra [...] Plan (04/06/2024 9:51 AM EDT): Followed by facilities specialist. Per note 11/18/23:On Actemra 162 mg [...] the right ECU swelling does not improve Assistant Facility Manager would like to restart hydroxychloroquine, will refer patient to Ophthalmology for a baseline hydroxychloroquine screening. If patient is cleared. Will start hydroxychloroquine Continue Rasuvo 25 mg weekly + Actemra every other week. Chest CTA 10/2022 showed no evidence of ILD T-spot and Hepatitis panel -ve 11/2023,. Labs before next visit in 3 months via rheumatology Seen by facilities specialist Dr. Minnie Santillan 02/23/24 -On Actemra [...] Plan (06/04/2023 9:39 AM EDT): -Followed by facilities specialist Dr. Fisher. -Currently on prednisone 2 mg daily -med rec to make sure we have correct meds on file -Continue Oxycodone 5mg BID as needed for pain -Did not tolerate Methotrexate, then Leflunomide 20mg daily but then d/c due to rash Assessment & Plan (11/20/2022 10:23 AM EST): -Followed by facilities specialist Dr. Fisher. -Currently on prednisone 2 [...] dilatation measuring 4cm and ascending aorta 4.3cm -Supervisor [employer] Nanette Leonard seen in April 2022. - Now followed by Sharon LEWIS for [facility] -History of leg edema with higher dose amlodipine use. He did have improvement in his swelling when his amlodipine was reduced to 5 mg daily and then discontinued. -echo does show a normal EF, impaired relaxation. He is on hydrochlorothiazide. He is on prednisone which can contribute to some mild edema. -given compression stockings 05/30/24 -Sharon AREVALOC for [facility] 11/2024 Hx of dilated ascending [...] dilatation measuring 4cm and ascending aorta 4.3cm Supervisor [employer] Nanette Leonard seen in April 2022. Followed [...] dilatation measuring 4cm and ascending aorta 4.3cm Supervisor [employer] Nanette Leonard seen in April 2022. Assessment [...] dilatation measuring 4cm and ascending aorta 4.3cm Supervisor [employer] Nanette Leonard seen in April 2022. Assessment [...] dilatation measuring 4cm and ascending aorta 4.3cm Supervisor [employer] Nanette Leonard seen in April 2022. Currently on Rasuvo 25mg weekly, Humeria. Prednisone 2mg daily. -decreased it to 1 mg daily. Type 2 diabetes mellitus wit hout complication, without long-term current use of insulin 10/13/2022 Overview (03/07/2025): Diabetes is controlled. Lab [...] -Vascepa 2 grams twice daily started by [facility] 05/22/24 Assessment & Plan (09/04/2024 5:03 PM EST): Lab Results Component Value Date CHOL 115 02/16/2024 CHOL 155 06/17/2023 CHOL 177 11/16/2022 TRIG 205 (H) 02/16/2024 TRIG 166 06/17/2023 TRIG 168 11/16/2022 HDL 41 02/16/2024 HDL 55 06/17/2023 HDL 69 11/16/2022 LDLCHOLCAL 33 02/16/2024 LDLCHOLCAL 67 06/17/2023 LDLCHOLCAL 75 11/16/2022 -continue lifestyle modification -Vascepa 2 grams twice daily started by [facility] 05/22/24 Assessment & Plan (04/06/2024 9:52 AM [...] Encounters Date Type Department Care Team Description 09/04/2025 9:00 AM EST Office Visit [facility] [address] [place] [phone] Ruslan Salmon MD COPD exacerbation (CMS/HCC) (HCC) (Primary Dx) 09/04/2025 Travel 08/28/2025 Refill [facility] [address] [place] [address] Loyda Banda RN Pain 08/28/2025 Telephone [facility] [address] [place] [phone] Daisha Crane MD Med Refill 08/24/2025 Telephone [facility] [address] [place] [phone] Daisha Crane MD October Recalls 08/24/2025 Travel 08/06/2025 Refill [facility] [address] [place] [address] Loyda Banda RN Pain 08/06/2025 Telephone [facility] [address] [place] [address] Daisha Crane MD Med Refill 07/20/2025 9:00 AM EDT Clinical Support [facility] [address] [place] [address] Loyda Banda, mobile solutions architect right shoulder pain (Primary Dx) 07/20/2025 Travel 07/11/2025 Refill [facility] [address] [place] [address] Daisha Crane MD Vitamin D deficiency 07/10/2025 Refill [facility] [address] [place] [address] Daisha Crane MD Pain 07/08/2025 Refill [facility] [address] [place] [address] Lisa Liao, PharmD Hypertension, unspecified type 07/04/2025 Orders Only GENERIC EXTERNAL DATA DEPARTMENT Provider, Generic External Data 06/12/2025 Refill [facility] [address] [place] [address] Loyda Banda RN Pain 06/12/2025 Telephone [facility] [address] [place] [address] Daisha Crane MD Med Refill from Last 3 Months Immunizations Immunization Administration [...] Mass Index 24.21 09/04/2025 9:05 AM EST Plan of Treatment Upcoming Encounters Date Type Department Care Team (Late st Contact Info) Description 10/08/2025 2:30 PM EST Telemedicine [facility] [address] [place] [address] Loyda Banda, SO [address] [place] [address] 10/17/2025 9:30 AM EST Office Visit [facility] [address] [place] [address] Daisha Crane MD [address] [place] [address] Health Maintenance Due Date Last Done Comments Alcohol/Substance Use Screening 1957 Eye Exam 05/13/2025 05/13/2023, 05/01, 05/13/2023, Additional history exists COVID-19 Vaccine ( season) 2025 09/04/2024, 06/04/2023, 05/18/2022, Additional history exists Influenza Vaccine (#1) 2025 , 08/17/2023, 09/28/2022, Additional history exists Diabetes: Hemoglobin A1C 09/07/2025 025, 09/04/2024, 04/06/2024, Additional history exists Diabetes: Urine Protein Screening 09/15/2025 09/15/2024, 06/17/2023 Depression Screening 03/07/2026 03/07/2025, 03/07/20 Diabetes: Foot Exam 03/07/2026 03/07/2025, 03/07/2025, 03/07/2025, Additional history exists SDOH Screening 03/07/2026 03/07/2025 Lipid Panel 07/04/2026 07/04/2025, 12/0 07/2024, 02/16/2024, Additional history exists Tobacco Screening 09/04/2026 09/04/2025 DTaP/Tdap/Td Vaccines (3 - Td or Tdap) [...] Name Priority Date/Time Associated Diagnosis Comments POCT COVID-19 AG BLACK[place]OD ID NOW Routine 09/04/2025 9:33 AM EST COPD exacerbation (CMS/HCC) (HCC) POCT INFLUENZA A (ID NOW RAPID MOLECULAR) Routine 09/04/2025 9:33 AM EST COPD exacerbation (CMS/HCC) (HCC) POCT INFLUENZA B (ID NOW RAPID MOLECULAR) Routine 09/04/2025 9:33 AM EST COPD exacerbation (CMS/HCC) (HCC) POCT SAUNDRA-14 URINE DRUG SCREEN Routine 07/20/2025 9:46 AM EDT Chronic right shoulder pain SED RATE BY MODIFIED WESTERGREN Routine 07/04/2025 [...] 2 diabetes mellitus without complication, unspecified whether chcf insulin use (CMS/HCC) HEPATITIS PANEL, GENERAL Routine 11/11/2023 10:39 AM EST HM COLONOSCOPY Routine 12/21/2020 from Last 3 Months or Most Recently Relevant to Health Maintenance Results * Influenza B (ID NOW Rapid Molecular) (09/04/2025 9:33 AM EST) Influenza B Negative Negative, Indeterminate [facility] Swab 09/04/2025 9:33 AM EST us Ruslan Salmon MD POINT OF CARE TEST ENTER/EDIT OR DERABLES Final Result Performing Organization Address [facility]/ZIP Co de Phone Number [facility] [address] [place] [phone] * Influenza A (ID NOW Rapid Molecular) (09/04/2025 9:33 AM EST) Influenza A Negative Negative, Indeterminate [facility] Swab 09/04/2025 9:33 AM EST us Ruslan Salmon MD POINT OF CARE TEST ENTER/EDIT OR DERABLES Final Result Performing Organization Address [facility]/ZIP Co de Phone Number [facility] [address] [place] [phone] * POCT COVID-19 Ag Blackwood ID NOW (09/04/2025 9:33 AM EST) Pathologist [facility] Coronavirus Antigen PCR Negative Negative, Indeterminate, None Detected, Invalid, Specimen unsatisfactory for evaluation, Weakly Positive, 2+ Swab 09/04/2025 9:33 AM EST Ruslan Salmon MD POINT OF CARE TEST ENTER/EDIT OR DERABLES Final Result * (ABNORMAL) POCT SAUNDRA-14 Urine Drug Screen (07/20/2025 9:46 AM EDT) Pathologist [facility] THC Negative Negative Cocaine Screen, Urine Negative Negative Opiate Screen, Urine Negative Negative Methamphetamine Screen Urine Negative Negative Amphetamine Screen, Urine Negative Negative Benzodiazepines Screen, Urine Negative Negative Barbiturate Screen, Urine Negative Negative Methadone Screen, Urine Negative Negative Buprenophine Screen, Urine Negative Negative TCA, Urine Negative Negative MDMA Urine Negative Negative ng/mL Oxycodone Screen, Urine Positive(A) Negative Phencyclidine (PCP), Urine Negative Negative Propoxyphene, Urine Negative Negative Fentanyl, Urine Negative Negative Urine Urine specimen obtained by clean catch procedure / Unknown 07/20/2025 9:46 AM EDT Narrative Loyda Banda RN - 07/20/2025 9:46 AM EDT .UTOX cup Lot#[id number] Exp. 08/07/26 Internal Pass Control Daisha Crane MD POINT OF CARE TEST ENTER/E DIT ORDERABLES Final Result * (ABNORMAL) CBC auto differential (07/04/2025 9:18 AM EDT) Pathologist [facility] White Blood Count 9.5 4.8 - 10.8 X10*3/uL [facility] Red Blood Count 3.94(L) 4.60 - 5.80 X10*6/uL [facility] Hemoglobin 9.4(L) 14.0 - 18.0 g/dl [facility] Hematocrit 32.0(L) 42.0 - 52.0 % [facility] Mean Corpuscular Volume 81.2 80.0 - 98.0 fL [facility] Mean Corpuscular Hemoglobin 23.9(L) 27.0 - 33.0 pg [facility] Mean Corpuscular HGB Conc 29.4(L) 31.0 - 36.0 g/dl [facility] Red Cell Distribution Width 20.6(H) 11.0 - 16.0 % [facility] Platelet Count 219 160 - 400 X10*3/uL [facility] Mean Platelet Volume 10.1 9.4 - 12.4 fL [facility] Neutrophils Percent Auto 55.5 45 - 73 % [facility] Imm Gran Pct Auto 0.4 0.0 - 0.4 % [facility] Lymphocytes Percent Auto 29.0 20 - 40 % [facility] Monocytes Percent Auto 12.8(H) 2 - 11 % [facility] Eosinophils Percent Auto 1.7 0 - 4 % [facility] Basophils Percent Auto 0.6 0 - 2 % [facility] NRBC Pct Auto 0.0 0.0 - 0.2 /100WBC [facility] Neutrophils Absolute Auto 5.2 2.0 - 8.3 x10*3/uL [facility] Imm Gran Abs Auto 0.04(H) 0.00 - 0.03 X10*3/uL [facility] Lymphocytes Absolute Auto 2.7 1.2 - 4.9 X10*3/uL [facility] Monocytes Absolute Auto 1.2 0.1 - 1.2 X10*3/uL [facility] Eosinophils Absolute Auto 0.2 0.0 - 0.4 X10*3/uL [facility] Basophils Absolute Auto 0.1 0.0 - 0.2 X10*3/uL [facility] NRBC Abs Auto 0.000 0.0 - 0.012 X10*3/uL [facility] 07/04/2025 9:18 AM EDT 07/04/2025 9:18 AM EDT us Generic External Data Provider LAB BLOOD ORDERAB LES Final Result Performing Organization Address [facility] Co de Phone Number [facility] [address] [place] [phone] * Sed Rate by Modified Medardoren (07/04/2025 9:18 AM EDT) Erythrocyte Sedimentation Rate 2 0 - 15 MM/HR [facility] Comment:Patients with polycy themia and many hemoglobin abnormalitiesmay have depressed sed rates whereas patients with anemiamay have elevated sed rates. 07/04/2025 9:18 AM EDT 07/04/2025 9:18 AM EDT Generic External Data Provider LAB BLOOD ORDERAB LES Final Result Performing Organization Address [facility] Co de Phone Number [facility] [address] [place] [phone] * C-reactive Protein (07/04/2025 9:18 AM EDT) C Reactive Protein <0.04 < or = 0.50 mg/dL [facility] 07/04/2025 9:18 AM EDT 07/04/2025 9:18 AM EDT Generic External Data Provider LAB BLOOD ORDERAB LES Final Result Performing Organization Address [facility] de Phone Number [facility] [address] [place] [phone] * (ABNORMAL) Lipid Panel, Standard (07/04/2025 9:18 AM EDT) Triglycerides 130 <150 mg/dL [facility] Comment:Desirable Triglyceri de: less than 150 mg/dLBorderline High Triglyceride 150-199 mg/dLHigh Triglyceride: 200-499 mg/dLVery High Triglyceride: greater than or equal to 5OO mg/dL Cholesterol 97 <200 mg/dL [facility] Comment:Desirable Cholestero l: less than 200 mg/dLBorderline High Cholesterol: 200-239 mg/dLHigh Cholesterol: greater than 239 mg/dL LDL Cholesterol Calculated 36 <100 mg/dL [facility] Comment:Desirable LDL: less than 100 mg/dLNear Optimal/Above Optimal LDL: 110- 129 mg/dLBorderline High LDL: 130-159 mg/dLHigh LDL: 160-189 mg/dLVery High LDL: greater than or equal to 190 mg/dL HDL Cholesterol 35(L) >40 mg/dL [facility] Comment:Desirable HDL: great er than 40 mg/dL Note: This HDL assay may give artificially low results in patients with liver disease. 07/04/2025 9:18 AM EDT 07/04/2025 9:18 AM EDT us Generic External Data Provider LAB BLOOD ORDERAB LES Final Result [facility] [address] [place] [phone] * (ABNORMAL) Comprehensive Metabolic Panel (07/04/2025 9:18 AM EDT) Sodium 138 135 - 145 mmol/L [facility] Potassium 3.6 3.3 - 5.1 mmol/L [facility] Comment:Slight Hemolysis.Int erpret result with caution. Chloride 104 96 - 108 mmol/L [facility] Carbon Dioxide 24 22 - 29 mmol/L [facility] Anion Gap 14 12 - 20 [facility] Urea Nitrogen (BUN) 12 9 - 16 mg/dL [facility] Creatinine, Serum 0.74 0.5 - 1.4 mg/dL [facility] Estimated Glomerular Filt Rate >60 [facility] Comment:Chronic Kidney Disea se: Estimated GFR < 60 mL/min/[id number] Kidney Disease: Estimated GFR < 15 mL/min/1.73m2 Glucose 94 60 - 115 mg/dL [facility] Calcium 9.6 8.4 - 10.2 mg/dL [facility] Bilirubin, Total 0.8 0.0 - 1.0 mg/dL [facility] Aspartate Amino Transferase 38(H) 5 - 37 U/L [facility] Comment:Slight Hemolysis.Int erpret result with caution. Alanine Aminotransferase 25 0 - 40 U/L [facility] Total Protein 6.6 6.5 - 8.0 g/dL [facility] Albumin Level 4.5 3.5 - 5.0 g/dL [facility] Alkaline Phosphatase 54 39 - 117 U/L [facility] 07/04/2025 9:18 AM EDT 07/04/2025 9:18 AM EDT us Generic External Data Provider LAB BLOOD ORDERAB LES Final Result [facility] [address] [place] [phone] * (ABNORMAL) POCT glycosylated hemoglobin (Hgb A1c) (03/07/2025 10:40 AM EDT) Hemoglobin A1C 6.4(A) 4.0 - 6.0 % QC Media Lot # [id number] Lot# Expiration Date Blood Capillary blood specimen / Unknown 03/07/2025 10:40 AM EDT Daisha Crane MD POINT OF CARE TEST ENTER/E DIT ORDERABLES Final Result * Albumin, Random Urine W/Creatinine (09/15/2024 8:03 AM EST) Creatinine, Urine 107.16 mg/dL [facility] Microalbumin Urine 20.0 mg/L [facility] Microalbum Creatinine Ratio Ur 18.6 <30 ug/mg cr [facility] Comment:Albumin/Creatinine R atio Reference Ranges: Normal: < 30 ug/mg creatinine Microalbuminuria: 30 - 300 ug/mg creatinineClinical Albuminuria: > 300 ug/mg creatinine Urine 09/15/2024 8:03 AM EST 09/15/2024 11:09 AM EST Daisha Crane MD LAB URINE ORDERABLES Final Result Performing Organization Address City/[facility]/ZIP Co de Phone Number [facility] [address] [place] [address] [phone] * Hepatitis Panel, General (11/11/2023 10:39 AM EST) Hepatitis A IgM Nonreactive Nonreactive [facility] Comment:IgM antibodies to WAGONER V not detected; does not exclude earlyacute or recovered HAV infection. ~Hepatitis B Surface Antibody NONREACTIVE Nonreactive [facility] Comment:Nonreactive: < 8.00 mIU/mL Hepatitis B Core Antibody Nonreactive Nonreactive [facility] Hepatitis C Antibody Nonreactive Nonreactive [facility] Comment:Antibodies to HCV no t detected; does not exclude early acuteHCV infection. Hepatitis B Surface Ag Negative Negative [facility] 11/11/2023 10:3 9 AM EST 11/11/2023 10:39 AM EST us Generic External Data Provider LAB BLOOD ORDERAB LES Final Result Performing Organization Address City/[facility]/ZIP Co de Phone Number [facility] [address] [place] [address] [phone] * Colonoscopy (12/21/2020) Colonoscopy tubular adenoma with Dr. Rodríguez Historical Provider HEALTH MAINTENANCE Final Result from Last 3 Months or Most Recently Relevant to Health Maintenance Insurance [facility] [facility] OPTIONS (HMO D-SNP) [facility] STANDARD Advance Directives Documents on File Type Date Recorded Patient [employer] Principal Expl anation Advance Directives and Living Will 04/06/2024 Health Care Proxy 04/06/24 Care Teams Employee Relations Specialist Relationship Specialty Start Date End Date Meigs, MD Daisha [address] [place] [address] PCP - General Family Medicine 11/01/18 Alissa Santillan MD [address] [place] [address] Rheumatology 11/09/24 Sharon Guardado [address] 3rd [place] [address] Cardiology 11/13/24 Cedric Lujan MD [address] [place] [address] Orthopaedic Surgery 11/23/24 Rory Angeles MD [address] [place] [address] Pain Medicine 02/06/25 Jairon Crawford OD [facility] [address] [place] [address] Optometry 03/07/25 Laura Velarde MD Rheumatology 03/28/25
--- OUTSIDE RECORDS SUMMARY | 2025-09-07 09:17 | XMS_ITS | Encounter Summary ---
Author Organization [employer] Address 75 [facility] 7t [place] [address] Care Team Providers Care Pattern Developer Name Role Phone Daisha Crane MD Primary Care Provider +1- [phone] Lisa Liao PharmD Unavailable Alissa Santillan MD Unavailable Sharon Guardado Unavailable Cedric Lujan MD Unavailable Rory Angeles MD Unavailable Jairon Crawford OD Unavailable Encounter Details Date Type Department Care Team (Latest Contact Info) Description 03/10/2019 Abstract [facility] CONVERSIONS Dental, Provider, DDS Social History Tobacco [...] Info) Description 10/08/2025 2:30 PM EST Telemedicine [facility] MED & PEDS [address] [place] [address] Loyda Banda, SO 505 [place] [address] 10/17/2025 9:30 AM EST Office Visit [facility] MEDICINE [address] [place] [address] Daisha Crane MD [address] [place] [address] documented as of this encounter Visit Diagnoses Not on filedocumented in this encounter Care Teams Pattern Developer Relationship Specialty Start Date End Date Daisha Crane MD [address] [place] [address] PCP - General Family Medicine 11/01/18 Lisa Liao, GenevaD [address] [place] [address] Pharmacist Internal Medicine 04/06/23 02/02/25 Alissa Santillan MD [address] [place] [address] Rheumatology 11/09/24 Sharon Guardado [address] 3rd [place] [address] Cardiology 11/13/24 Cedric Lujan MD [address] [place] [address] Orthopaedic Surgery 11/23/24 Rory Angeles MD [address] [place] [address] Pain Medicine 02/06/25 Jairon Crawford OD [facility] [address] [place] [address] Optometry 03/07/25 Laura Velarde MD Rheumatology 03/28/25 documented as of this encounter
--- OUTSIDE RECORDS SUMMARY | 2025-09-07 09:17 | XMS_ITS | Encounter Summary ---
Author Organization [employer] Address 75 [facility] 7t [place] [address] Care Team Providers Care Slitting Machine Feeder Name Role Phone Daisha Crane MD Primary Care Provider +1- [phone] Alissa Santillan MD Unavailable Sharon Guardado Unavailable Cedric Lujan MD Unavailable Rory Angeles MD Unavailable Jairon Crawford OD Unavailable Reason for Visit * Reason Onset Date Comments Med Refill 08/06/2025 Encounter Details Date Type Department Care Team (Late st Contact Info) Description 08/06/2025 Telephone [facility] MEDICINE [address] [place], [place] [phone] Daisha Crane MD 230 [place], [place] [phone] Med Refill Social History Tobacco Use Types [...] encounter Miscellaneous Notes * Telephone Encounter - Sky Willams - 08/06/2025 10:17 AM EDT TC from pt requesting medication refill. Medications needing refill: oxyCODONE (Roxicodone) 5 MG immediate release tablet To be sent to: [facility] - [place], [place] - [address] [place] [address] documented in this encounter Plan of Treatment Upcoming Encounters Date Type Department Care Team ([facility] st Contact Info) Description 10/08/2025 2:30 PM EST Telemedicine [facility] CH[facility] MED & PEDS [address] [place] [address] Loyda Banda RN 505 [place] [address] 10/17/2025 9:30 AM EST Office Visit [facility] MEDICINE 230 [place] [address] Daisha Crane MD 230 [place] [address] documented as of this encounter Goals Goal [...] documented as of this encounter Care Teams Slitting Machine Feeder Relationship Specialty Start Date End Date Daisha Crane MD [address] [place] [address] PCP - General Family Medicine 11/01/18 Alissa Santillan MD [address] [place] [address] Rheumatology 11/09/24 Sharon Guardado [address] 3rd [place] [address] Cardiology 11/13/24 Cedric Lujan MD [address] [place] [address] Orthopaedic Surgery 11/23/24 Rory Angeles MD [address] [place] [address] Pain Medicine 02/06/25 Jairon Crawford OD [facility] [address] [place] [address] Optometry 03/07/25 Laura Velarde MD Rheumatology 03/28/25 documented as of this encounter
--- OUTSIDE RECORDS SUMMARY | 2025-09-07 09:17 | XMS_ITS | Encounter Summary ---
Author Organization [employer] Address 75 [facility] 7t [place] [address] Care Team Providers Care Manager Continuous Improvement Name Role Phone Daisha Crane MD Primary Care Provider +1- [phone] Lisa Liao PharmD Unavailable Alissa Santillan MD Unavailable Sharon Guardado Unavailable Cedric Lujan MD Unavailable Rory Angeles MD Unavailable Jairon Crawford OD Unavailable Reason for Visit * Reason Comments Med Refill Encounter Details Date Type Department Care Team (Late st Contact Info) Description 07/21/2023 Refill [facility] MEDICINE [address] [place], [place] [phone] Daisha Crane MD [address] [place], [place] [phone] Pulmonary emphysema, unspecified emphysema type (CMS/HCC) (Primary [...] Info) Description 10/08/2025 2:30 PM EST Telemedicine [facility] MED & PEDS [address] [place] [address] Loyda Banda, RN [address] [place] [address] 10/17/2025 9:30 AM EST Office Visit [facility] MEDICINE [address] [place] [address] Daisha Crane MD [address] [place] [address] documented as of this encounter Goals Goal Patient Goal Type Associated Problems Recent Progress Patient-Stated? Author Blood Pressure < 140/90 Blood Pressure 116/75(2024 9:05 AM EST) No Lisa Anguiano, PharmD Hemoglobin A1c < 8 Result Component 6.4( 10:40 AM EDT) No Lisa Anguiano, PharmD documented as of this encounter Visit Diagnoses Diagnosis Pulmonary emphysema, unspecified emphysema type- Primary documented in this encounter Additional Health Concerns Assessment Noted Time PHQ-9 Depression Total Score: 0 11/23/19 23 10:39 AM EST documented as of this encounter Care Teams Manager Continuous Improvement Relationship Specialty Start Date End Date Daisha Crane MD [address] [place] [address] PCP - General Family Medicine 11/01/18 Lisa Liao, PharmD [address] [place] [address] Pharmacist Internal Medicine 04/06/23 02/02/25 Alissa Santillan MD [address] [place] [address] Rheumatology 11/09/24 Sharon Guardado [address] 3rd [place] [address] Cardiology 11/13/24 Cedric Lujan MD [address] [place] [address] Orthopaedic Surgery 11/23/24 Rory Angeles MD [address] [place] [address] Pain Medicine 02/06/25 Jairon Crawford OD [facility] [address] [place] [address] Optometry 03/07/25 Laura Velarde MD Rheumatology 03/28/25 documented as of this encounter
--- OUTSIDE RECORDS SUMMARY | 2025-09-07 09:17 | XMS_ITS | Encounter Summary ---
Author Organization [employer] Address 75 [facility] 7t [place] [address] Care Team Providers Care Manager Advertising Name Role Phone Daisha Crane MD Primary Care Provider +1- [phone] Lisa Liao PharmD Unavailable Alissa Santillan MD Unavailable Sharon Guardado Unavailable Cedric Lujan MD Unavailable Rory Angeles MD Unavailable Jairon Crawford OD Unavailable Encounter Details Date Type Department Care Team (Late st Contact Info) Description 10/30/2024 Telephone [facility] CHC MED & PEDS [address] [place], [place] [phone] Daisha Crane MD [address] [place], [place] [phone] Social History Tobacco Use Types Packs/Day Years [...] the past 12 months, has t he [employer] gas, oil or water [employer] threatened to shut off services in your [...] Info) Description 10/08/2025 2:30 PM EST Telemedicine [facility] CH[facility] MED & PEDS 505 [place] [address] Loyda Banda, SO [address] [place] [address] 10/17/2025 9:30 AM EST Office Visit [facility] MEDICINE [address] [place] [address] Daisha Crane MD [address] [place] [address] documented as of this encounter Goals Goal [...] as of this encounter Care Teams Manager Advertising Relationship Specialty Start Date End Date Daisha Crane MD [address] [place] [address] PCP - General Family Medicine 11/01/18 Lisa Liao, GenevaD [address] [place] [address] Pharmacist Internal Medicine 04/06/23 02/02/25 Alissa Santillan MD [address] [place] [address] Rheumatology 11/09/24 Sharon Guardado [address] 3rd [place] [address] Cardiology 11/13/24 Cedric Lujan MD [address] [place] [address] Orthopaedic Surgery 11/23/24 Rory Angeles MD [address] [place] [address] Pain Medicine 02/06/25 Jairon Crawford OD [facility] [address] [place] [address] Optometry 03/07/25 Laura Velarde MD Rheumatology 03/28/25 documented as of this encounter
--- OUTSIDE RECORDS SUMMARY | 2025-09-07 09:17 | XMS_ITS | Encounter Summary ---
Author Organization [employer] Address 75 [facility] 7t [place] [address] Care Team Providers Care Preforms Laminator Name Role Phone Daisha Crane MD Primary Care Provider +1- [phone] Lisa Liao PharmD Unavailable +[phone] Alissa Santillan MD Unavailable Sharon Guardado Unavailable Cedric Lujan MD Unavailable Rory Angeles MD Unavailable Jairon Crawford OD Unavailable Reason for Visit * Reason Onset Date Comments Med Refill 07/04/2024 Encounter Details Date Type Department Care Team (Late st Contact Info) Description 07/04/2024 Telephone [facility] MEDICINE 230 [place], [place] [phone] Daisha Crane MD [address] [place], [place] [phone] Med Refill Social History Tobacco Use Types [...] immediate release tablet To be sent to: [facility] - [place], [place] - [address] [place] [address] documented in this encounter Plan of Treatment Upcoming Encounters Date Type Department Care Team (Late st Contact Info) Description 10/08/2025 2:30 PM EST Telemedicine [facility] MED & PEDS 505 [place] [address] Loyda Banda, SO [address] [place] [address] 10/17/2025 9:30 AM EST Office Visit [facility] MEDICINE [address] [place] [address] Daisha Crane MD [address] [place], [place] [phone] documented as of this encounter Goals Goal [...] documented as of this encounter Care Teams Preforms Laminator Relationship Specialty Start Date End Date Daisha Crane MD [address] [place] [address] PCP - General Family Medicine 11/01/18 Lisa Liao PharmD [address] [place] [address] Pharmacist Internal Medicine 04/06/23 02/02/25 Alissa Santillan MD [address] [place] [address] Rheumatology 11/09/24 Sharon Guardado [address] 3rd [place] [address] Cardiology 11/13/24 Cedric Lujan MD [address] [place] [address] Orthopaedic Surgery 11/23/24 Rory Angeles MD [address] [place] [address] Pain Medicine 02/06/25 Jairon Crawford OD [facility] [address] [address] Optometry 5/7/25 Laura Velarde MD Rheumatology 03/28/25 documented as of this encounter
--- OUTSIDE RECORDS SUMMARY | 2025-09-07 09:18 | XMS_ITS | Encounter Summary ---
Author Organization [employer] Address 75 [facility] 7t [place] [address] Care Team Providers Care Granulator Machine Operator Name Role Phone Daisha Crane MD Primary Care Provider +1- [phone] Lisa Liao PharmD Unavailable Alissa Santillan MD Unavailable Sharon Guardado Unavailable Cedric Lujan MD Unavailable Rory Angeles MD Unavailable Jairon Crawford OD Unavailable Reason for Visit * Reason Comments Med Refill Encounter Details Date Type Department Care Team (Late st Contact Info) Description 02/06/2024 Refill [facility] MEDICINE 230 [place], [place] [phone] Lisa Liao, PharmD 230 [place], [place] [phone] Social History Tobacco Use Types Packs/Day Years [...] Info) Description 10/08/2025 2:30 PM EST Telemedicine [facility] CH[facility] MED & PEDS 505 [place] [address] Loyda Banda, SO 505 [place] [address] 10/17/2025 9:30 AM EST Office Visit [facility] MEDICINE [address] [place] [address] Daisha Crane MD [address] [place], [place] [phone] documented as of this encounter Goals Goal Patient Goal Type Associated Problems Recent Progress Patient-Stated? Author Blood Pressure < 140/90 Blood Pressure 116/75(2024 9:05 AM EST) No Piers-Gambl e, Lisa, PharmD Hemoglobin A1c < 8 Result Component 6.4( 5 10:40 AM EDT) No Lisa Anguiano, GenevaD documented as of this encounter Visit Diagnoses Not on filedocumented in this encounter Additional Health Concerns Assessment Noted Time PHQ-9 Depression Total Score: 0 11/23/19 10:39 AM EST documented as of this encounter Care Teams Granulator Machine Operator Relationship Specialty Start Date End Date Daisha Crane MD [address] [place] [address] PCP - General Family Medicine 11/01/18 Lisa Liao, PharmD [address] [place] [address] Pharmacist Internal Medicine 04/06/23 02/02/25 Alissa Santillan MD [address] [place] [address] Rheumatology 11/09/24 Sharon Guardado [address] 3rd [place] [address] Cardiology 11/13/24 Cedric Lujan MD [address] [place] [address] Orthopaedic Surgery 11/23/24 Rory Angeles MD [address] [place] [address] Pain Medicine 02/06/25 Jairon Crawford OD [facility] [address] [place] [address] Optometry 03/07/25 Laura Velarde MD Rheumatology 03/28/25 documented as of this encounter
--- OUTSIDE RECORDS SUMMARY | 2025-09-07 09:18 | XMS_ITS | Encounter Summary ---
Author Organization [employer] Address 75 [facility] 7t [place] [address] Care Team Providers Care Typewriter Aligner Name Role Phone Daisha Crane MD Primary Care Provider +1- [phone] Lisa Liao PharmD Unavailable Alissa Santillan MD Unavailable Sharon Guardado Unavailable Cedric Lujan MD Unavailable Rory Angeles MD Unavailable Jairon Crawford OD Unavailable Reason for Visit * Reason Comments Med Refill Encounter Details Date Type Department Care Team (Late st Contact Info) Description 08/31/2023 Refill [facility] MEDICINE 230 [place], [place] [phone] Key Gregory MD [address] [place], [place] [phone] Tinea versicolor Social History Tobacco Use Types [...] Info) Description 10/08/2025 2:30 PM EST Telemedicine [facility] CHC MED & PEDS 505 [place] [address] Loyda Banda, SO [address] [place] [address] 10/17/2025 9:30 AM EST Office Visit [facility] MEDICINE 230 [place] [address] Daisha Crane MD [address] [place] [address] documented as of this encounter Goals Goal Patient Goal Type Associated Problems Recent Progress Patient-Stated? Author Blood Pressure < 140/90 Blood Pressure 116/75(2024 9:05 AM EST) No Daveys-GambLisa kruse, PharmD Hemoglobin A1c < 8 Result Component 6.4( 10:40 AM EDT) No Daveys-Gambl Lisa mg, PharmD documented as of this encounter Visit Diagnoses Diagnosis Tinea versicolor Pityriasis versicolor documented in this encounter Additional Health Concerns Assessment Noted Time PHQ-9 Depression Total Score: 0 11/23/19 10:39 AM EST documented as of this encounter Care Teams Typewriter Aligner Relationship Specialty Start Date End Date Daisha Crane MD [address] [place] [address] PCP - General Family Medicine 11/01/18 Lisa Liao, Nidia [address] [place] [address] Pharmacist Internal Medicine 04/06/23 02/02/25 Alissa Santillan MD [address] [place] [address] Rheumatology 11/09/24 Sharon Guardado [address] 3rd [place] [address] Cardiology 11/13/24 Cedric Lujan MD [address] [place] [address] Orthopaedic Surgery 11/23/24 Rory Angeles MD [address] [place] [address] Pain Medicine 02/06/25 Jairon Crawford OD [facility] [address] [place] [address] Optometry 03/07/25 Laura Velarde MD Rheumatology 03/28/25 documented as of this encounter
--- OUTSIDE RECORDS SUMMARY | 2025-09-07 09:18 | XMS_ITS | Encounter Summary ---
Author Organization [employer] Address 75 [facility] 7t [place] [address] Care Team Providers Care Ticket Clerk Name Role Phone Daisha Crane MD Primary Care Provider +1- [phone] Alissa Santillan MD Unavailable Sharon Guardado Unavailable Cedric Lujan MD Unavailable Rory Angeles MD Unavailable Jairon Crawford OD Unavailable Reason for Visit * Reason Onset Date Comments Med Refill 06/12/2025 Encounter Details Date Type Department Care Team (Late st Contact Info) Description 06/12/2025 Telephone [facility] MEDICINE 230 [place], [place] [phone] Daisha Crane MD 230 [place], [place] [phone] Med Refill Social History Tobacco Use Types [...] immediate release tablet To be sent to: [facility] - [place], [place] - [address] [place] [address] documented in this encounter Plan of Treatment Upcoming Encounters Date Type Department Care Team (Late st Contact Info) Description 10/08/2025 2:30 PM EST Telemedicine [facility] CHC MED & PEDS 505 [place] [address] Loyda Banda, SO [address] [place] [address] 10/17/2025 9:30 AM EST Office Visit [facility] MEDICINE 230 [place] [address] Daisha Crane MD 230 [place] [address] documented as of this encounter Goals Goal [...] documented as of this encounter Care Teams Ticket Clerk Relationship Specialty Start Date End Date Daisha Crane MD 230 [place] [address] PCP - General Family Medicine 11/01/18 Alissa Santillan MD [address] [place] [address] Rheumatology 11/09/24 Sharon Guardado [address] 3rd [place] [address] Cardiology 11/13/24 Cedric Lujan MD [address] [place] [address] Orthopaedic Surgery 11/23/24 Rory Angeles MD [address] [place] [address] Pain Medicine 02/06/25 Jairon Crawford OD [facility] [address] [place] [address] Optometry 03/07/25 Laura Velarde MD Rheumatology 03/28/25 documented as of this encounter
--- OUTSIDE RECORDS SUMMARY | 2025-09-07 09:18 | XMS_ITS | Encounter Summary ---
Author Organization [employer] Address 75 [facility] 7t [place] [address] Care Team Providers Care Flower Stripper Name Role Phone Daisha Crane MD Primary Care Provider +1- [phone] Alissa Santillan MD Unavailable Sharon Guardado Unavailable Cedric Lujan MD Unavailable Rory Angeles MD Unavailable Jairon Crawford OD Unavailable Reason for Visit * Reason Onset Date Comments Med Refill 08/28/2025 Encounter Details Date Type Department Care Team (Late st Contact Info) Description 08/28/2025 Telephone [facility] MEDICINE 230 [place], [place] [phone] Daisha Crane MD 230 [place], [place] [phone] Med Refill Social History Tobacco Use Types [...] * Telephone Encounter - Shamar Calixto - 08/28/2025 10:46 AM EDT TC from pt requesting medication refill. Medications needing refill : oxyCODONE (Roxicodone) 5 MG immediate release tablet To be sent to: [facility] documented in this encounter Plan of Treatment Upcoming Encounters Date Type Department Care Team (Late st Contact Info) Description 10/08/2025 2:30 PM EST Telemedicine [facility] CHC MED & PEDS [address] [place] [address] Loyda Banda RN 505 [place] [address] 10/17/2025 9:30 AM EST Office Visit [facility] MEDICINE [address] [place], [place] [phone] Daisha Crane MD 230 [place] [address] documented as of this encounter Goals Goal [...] documented as of this encounter Care Teams Flower Stripper Relationship Specialty Start Date End Date Daisha Crane MD [address] [place] [address] PCP - General Family Medicine 11/01/18 Alissa Santillan MD [address] [place] [address] Rheumatology 11/09/24 Sharon Guardado [address] 3rd [place] [address] Cardiology 11/13/24 Cedric Lujan MD [address] [place] [address] Orthopaedic Surgery 11/23/24 Rory Angeles MD [address] [place] [address] Pain Medicine 02/06/25 Jairon Crawford OD [facility] [address] [place] [address] Optometry 03/07/25 Laura Velarde MD Rheumatology 03/28/25 documented as of this encounter
--- OUTSIDE RECORDS SUMMARY | 2025-09-07 09:18 | XMS_ITS | Encounter Summary ---
Author Organization [employer] Address [address] [facility] 7t [place] [address] Care Team Providers Care Build And Deployment Engineer Name Role Phone Daisha Crane MD Primary Care Provider Lisa Liao PharmD Unavailable Alissa Santillan MD Unavailable Sharon Guardado Unavailable Cedric Lujan MD Unavailable Rory Angeles MD Unavailable Jairon Crawford OD Unavailable Encounter Details Date Type Department Care Team (Late st Contact Info) Description 11/19/2022 Orders Only [facility] MEDICINE [address] [place], [place] [phone] Radha Johnson LPN Social History Tobacco Use [...] Info) Description 10/08/2025 2:30 PM EST Telemedicine [facility] MED & PEDS 505 [place], [place] [phone] Loyda Banda, RN 505 [place] [address] 10/17/2025 9:30 AM EST Office Visit [facility] MEDICINE 230 [place] [address] Daisha Crane MD 230 [place] [address] documented as of this encounter Visit Diagnoses Not on filedocumented in this encounter Care Teams Build And Deployment Engineer Relationship Specialty Start Date End Date Daisha Crane MD 230 [place] [address] PCP - General Family Medicine 11/01/18 Lisa Liao PharmD 230 [place] [address] Pharmacist Internal Medicine 04/06/23 02/02/25 Alissa Santillan MD [address] [place] [address] Rheumatology 11/09/24 Sharon Guardado [address] 3rd [place] [address] Cardiology 11/13/24 Cedric Lujan MD [address] [place] [address] Orthopaedic Surgery 11/23/24 Rory Angeles MD [address] [place] [address] Pain Medicine 02/06/25 Jairon Crawford OD [facility] [address] [place] [address] Optometry 03/07/25 Laura Velarde MD Rheumatology 03/28/25 documented as of this encounter
--- OUTSIDE RECORDS SUMMARY | 2025-09-07 09:18 | XMS_ITS | Encounter Summary ---
Author Organization [employer] Address [address] [facility] 7t [place] [address] Care Team Providers Care Credit Risk Officer Name Role Phone Daisha Crane MD Primary Care Provider +- [phone] Lisa Liao PharmD Unavailable Alissa Santillan MD Unavailable Sharon Guardado Unavailable Cedric Lujan MD Unavailable Rory Angeles MD Unavailable Jairon Crawford OD Unavailable Encounter Details Date Type Department Care Team (Late st Contact Info) Description 11/18/2023 Telephone [facility] MEDICINE 230 [place], [place] [phone] Daisha Crane MD 230 [place], [place] [phone] Social History Tobacco Use Types Packs/Day Years [...] Info) Description 10/08/2025 2:30 PM EST Telemedicine [facility] MED & PEDS 505 [place] [address] Loyda Banda, SO 505 [place] [address] 10/17/2025 9:30 AM EST Office Visit [facility] MEDICINE 230 [place] [address] Daisha Crane MD 230 [place] [address] documented as of this encounter Goals Goal [...] as of this encounter Care Teams Credit Risk Officer Relationship Specialty Start Date End Date Daisha Crane MD 230 [place] [address] PCP - General Family Medicine 11/01/18 Lisa Liao, Nidia 230 [place] [address] Pharmacist Internal Medicine 04/06/23 02/02/25 Alissa Santillan MD [address] [place] [address] Rheumatology 11/09/24 Sharon Guardado [address] 3rd [place] [address] Cardiology 11/13/24 Cedric Lujan MD [address] [place] [address] Orthopaedic Surgery 11/23/24 Rory Angeles MD [address] [place] [address] Pain Medicine 02/06/25 Jairon Crawford OD [facility] [address] [place] [address] Optometry 03/07/25 Laura Velarde MD Rheumatology 03/28/25 documented as of this encounter
--- OUTSIDE RECORDS SUMMARY | 2025-09-07 09:18 | XMS_ITS | Encounter Summary ---
Author Organization [employer] Address [address] [place] [address] 7t [place] [address] Care Team Providers Care Cotton Bag Sewer Name Role Phone Daisha Crane MD Primary Care Provider +1- [phone] Lisa Liao PharmD Unavailable Alissa Santillan MD Unavailable Sharon Guardado Unavailable Cedric Lujan MD Unavailable Rory Angeles MD Unavailable Jairon Crawford OD Unavailable Reason for Visit * Reason Onset Date Comments Med Refill 06/07/2023 Encounter Details Date Type Department Care Team (Late st Contact Info) Description 06/07/2023 Telephone [facility] MEDICINE 230 [place], [place] [phone] Hiram Palma MD 230 [place], [place] [phone] Med Refill Social History Tobacco Use Types [...] MG immediate release tablet Please sent to [facility] - [place], [place] - [address] [place] [address] documented in this encounter Plan of Treatment Upcoming Encounters Date Type Department Care Team (Late st Contact Info) Description 10/08/2025 2:30 PM EST Telemedicine [facility] MED & PEDS 505 [place], [place] [phone] Loyda Banda RN 505 [place] [address] 10/17/2025 9:30 AM EST Office Visit [facility] MEDICINE 230 [place] [address] Daisha Crane MD 230 [place] [address] documented as of this encounter Goals Goal Patient Goal Type Associated Problems Recent Progress Patient-Stated? Author Blood Pressure < 140/90 Blood Pressure 116/75( 025 9:05 AM EST) No Lisa Anguiano PharmD documented as of this encounter Visit Diagnoses Not on filedocumented in this encounter Additional Health Concerns Assessment Noted Time PHQ-9 Depression Total Score: 0 11/23/19 23 10:39 AM EST documented as of this encounter Care Teams Cotton Bag Sewer Relationship Specialty Start Date End Date Daisha Crane MD [address] [place] [address] PCP - General Family Medicine 11/01/18 Lisa Liao, PharmD [address] [place] [address] Pharmacist Internal Medicine 04/06/23 02/02/25 Alissa Santillan MD [address] [place] [address] Rheumatology 11/09/24 Sharon Guardado [address] 3rd [place] [address] Cardiology 11/13/24 Cedric Lujan MD [address] [place] [address] Orthopaedic Surgery 11/23/24 Rory Angeles MD [address] [place] [address] Pain Medicine 02/06/25 Jairon Crawford OD [facility] [address] [place] [address] Optometry 03/07/25 Laura Velarde MD Rheumatology 03/28/25 documented as of this encounter
--- OUTSIDE RECORDS SUMMARY | 2025-09-07 09:18 | XMS_ITS | Encounter Summary ---
Author Organization [employer] Address [address] [facility] 7t [place] [address] Care Team Providers Care Sales Administrator Name Role Phone Daisha Crane MD Primary Care Provider +1- [phone] Lisa Liao PharmD Unavailable Alissa Santillan MD Unavailable Sharon Guardado Unavailable Cedric Lujan MD Unavailable Rory Angeles MD Unavailable Jairon Crawford OD Unavailable Reason for Visit * Reason Comments Med Refill Encounter Details Date Type Department Care Team (Late st Contact Info) Description 09/03/2023 Refill [facility] MEDICINE 230 [place], [place] [phone] Key Gregory MD 230 [place], [place] [phone] Tinea versicolor Social History Tobacco Use Types [...] Info) Description 10/08/2025 2:30 PM EST Telemedicine [facility] CHC MED & PEDS 505 [place] [address] Loyda Banda, SO 505 [place] [address] 10/17/2025 9:30 AM EST Office Visit [facility] MEDICINE 230 [place] [address] Daisha Crane MD 230 [place] [address] documented as of this encounter Goals Goal [...] documented as of this encounter Care Teams Sales Administrator Relationship Specialty Start Date End Date Daisha Crane MD 230 [place] [address] PCP - General Family Medicine 11/01/18 Lisa Liao, Nidia 230 [place] [address] Pharmacist Internal Medicine 04/06/23 02/02/25 Alissa Santillan MD [address] [place] [address] Rheumatology 11/09/24 Sharon Guardado [address] 3rd [place] [address] Cardiology 11/13/24 Cedric Lujan MD [address] [place] [address] Orthopaedic Surgery 11/23/24 Rory Angeles MD [address] [place] [address] Pain Medicine 02/06/25 Jairon Crawford OD [facility] [address] [place] [address] Optometry 03/07/25 Laura Velarde MD Rheumatology 03/28/25 documented as of this encounter
--- OUTSIDE RECORDS SUMMARY | 2025-09-07 09:18 | XMS_ITS | Encounter Summary ---
Author Organization [employer] Address 75 [facility] 7t [place] [address] Care Team Providers Care Bookmobile Librarian Name Role Phone Daisha Crane MD Primary Care Provider +1- [phone] Lisa Liao PharmD Unavailable Alissa Santillan MD Unavailable Sharon Guardado Unavailable Cedric Lujan MD Unavailable Rory Angeles MD Unavailable Jairon Crawford OD Unavailable Encounter Details Date Type Department Care Team (Late st Contact Info) Description 10/14/2022 [facility] Only [facility] 230 [place], [place] [phone] Daisha Crane MD 230 [place], [place] [phone] Social History Tobacco Use Types Packs/Day Years [...] Description 10/08/2025 2:30 PM EST Telemedicine [facility] MED & PEDS 505 [place], [place] [phone] Loyda Banda, RN 505 [place] [address] 10/17/2025 9:30 AM EST Office Visit [facility] MEDICINE 230 [place] [address] Daisha Crane MD 230 [place] [address] documented as of this encounter Visit Diagnoses Not on filedocumented in this encounter Care Teams Bookmobile Librarian Relationship Specialty Start Date End Date Daisha Crane MD 230 [place] [address] PCP - General Family Medicine 11/01/18 Lisa Liao, GenevaD [address] [place] [address] Pharmacist Internal Medicine 04/06/23 02/02/25 Alissa Santillan MD [address] [place] [address] Rheumatology 11/09/24 Sharon Guardado [address] 3rd [place] [address] Cardiology 11/13/24 Cedric Lujan MD [address] [place] [address] Orthopaedic Surgery 11/23/24 Rory Angeles MD [address] [place] [address] Pain Medicine 02/06/25 Jairon Crawford OD [facility] [address] [place] [address] Optometry 03/07/25 Laura Velarde MD Rheumatology 03/28/25 documented as of this encounter
--- OUTSIDE RECORDS SUMMARY | 2025-09-07 09:18 | XMS_ITS | Encounter Summary ---
Author Organization [employer] Address [address] [facility] 7t [place] [address] Care Team Providers Care Manager It Security Name Role Phone Daisha Crane MD Primary Care Provider +1- [phone] Alissa Santillan MD Unavailable Sharon Guardado Unavailable Cedric Lujan MD Unavailable Rory Angeles MD Unavailable Jairon Crawford OD Unavailable Encounter Details Date Type Department Care Team (Latest Contact Info) Description 09/04/2025 Travel Social History Tobacco Use Types Packs/Day [...] Info) Description 10/08/2025 2:30 PM EST Telemedicine [facility] CHC MED & PEDS 505 [place] [address] Loyda Banda, SO 505 [place] [address] 10/17/2025 9:30 AM EST Office Visit [facility] MEDICINE 230 [place] [address] Daisha Crane MD 230 [place] [address] documented as of this encounter Goals Goal [...] as of this encounter Care Teams Manager It Security Relationship Specialty Start Date End Date Daisha Crane MD 230 [place] [address] PCP - General Family Medicine 11/01/18 Alissa Santillan MD [address] [place] [address] Rheumatology 11/09/24 Sharon Guardado [address] 3rd [place] [address] Cardiology 11/13/24 Cedric Lujan MD [address] [place] [address] Orthopaedic Surgery 11/23/24 Rory Angeles MD [address] [place] [address] Pain Medicine 02/06/25 Jairon Crawford OD [facility] [address] [place] [address] Optometry 03/07/25 Laura Velarde MD Rheumatology 03/28/25 documented as of this encounter
--- OUTSIDE RECORDS SUMMARY | 2025-09-07 09:18 | XMS_ITS | Encounter Summary ---
Author Organization [employer] Address [address] [facility] 7t [place] [address] Care Team Providers Care Bridge Toll Collector Name Role Phone Daisha Crane MD Primary Care Provider +1- [phone] Lisa Liao PharmD Unavailable [phone] Alissa Santillan MD Unavailable Sharon Guardado Unavailable Cedric Lujan MD Unavailable Rory Angeles MD Unavailable Jairon Crawford OD Unavailable Reason for Visit * Reason Comments Med Refill Encounter Details Date Type Department Care Team (Late st Contact Info) Description 02/07/2024 Refill [facility] MEDICINE 230 [place], [place] [phone] Tanika Arenas ANP 230 [place], [place] [phone] Dyslipidemia Social History Tobacco Use Types Packs/Day [...] Info) Description 10/08/2025 2:30 PM EST Telemedicine [facility] CHC MED & PEDS 505 [place] [address] Loyda Banda, SO 505 [place] [address] 10/17/2025 9:30 AM EST Office Visit [facility] MEDICINE 230 [place] [address] Daisha Craen MD 230 [place], [place] [phone] documented as of this encounter Goals Goal [...] documented as of this encounter Care Teams Bridge Toll Collector Relationship Specialty Start Date End Date Daisha Crane MD 230 [place] [address] PCP - General Family Medicine 11/01/18 Lisa Liao PharmD 230 [place] [address] Pharmacist Internal Medicine 04/06/23 02/02/25 Alissa Santillan MD [address] [place] [address] Rheumatology 11/09/24 Sharon Guardado [address] 3rd [place] [address] Cardiology 11/13/24 Cedric Lujan MD [address] [place] [address] Orthopaedic Surgery 11/23/24 Rory Angeles MD [address] [place] [address] Pain Medicine 02/06/25 Jairon Crawford OD [facility] [address] [place] [address] Optometry 03/07/25 Laura Velarde MD Rheumatology 03/28/25 documented as of this encounter
--- OUTSIDE RECORDS SUMMARY | 2025-09-07 09:18 | XMS_ITS | Encounter Summary ---
Author Organization [employer] Address [address] [facility] 7t [place] [address] Care Team Providers Care Prefitter Doors Name Role Phone Daisha Crane MD Primary Care Provider +1- [phone] Alissa Santillan MD Unavailable Sharon Guardado Unavailable Cedric Lujan MD Unavailable Rory Angeles MD Unavailable Jairon Crawford OD Unavailable Reason for Visit * Reason Comments Med Refill Encounter Details Date Type Department Care Team (Late st Contact Info) Description 05/15/2025 Refill [facility] CHC MED & PEDS [address] [place], [place] [phone] Daisha Crane MD 230 [place], [place] [phone] Pain Social History Tobacco Use Types Packs/Day [...] Info) Description 10/08/2025 2:30 PM EST Telemedicine [facility] CHC MED & PEDS 505 [place] [address] Loyda Banda, SO 505 [place] [address] 10/17/2025 9:30 AM EST Office Visit [facility] MEDICINE 230 [place] [address] Daisha Crane MD 230 [place] [address] documented as of this encounter Goals Goal [...] documented as of this encounter Care Teams Prefitter Doors Relationship Specialty Start Date End Date Daisha Crane MD 230 [place] [address] PCP - General Family Medicine 11/01/18 Alissa Santillan MD [address] [place] [address] Rheumatology 11/09/24 Sharon Guardado [address] 3rd [place] [address] Cardiology 11/13/24 Cedric Lujan MD [address] [place] [address] Orthopaedic Surgery 11/23/24 Rory Angeles MD [address] [place] [address] Pain Medicine 02/06/25 Jairon Crawford OD [facility] [address] [place] [address] Optometry 03/07/25 Laura Velarde MD Rheumatology 03/28/25 documented as of this encounter
--- OUTSIDE RECORDS SUMMARY | 2025-09-07 09:18 | XMS_ITS | Encounter Summary ---
Author Organization [employer] Address [address] [facility] 7t [place] [address] Care Team Providers Care Rn Faculty Name Role Phone Daisha Crane MD Primary Care Provider + [phone] Lisa Liao PharmD Unavailable Alissa Santillan MD Unavailable Sharon Guardado Unavailable Cedric Lujan MD Unavailable Rory Angeles MD Unavailable Jairon Crawford OD Unavailable Encounter Details Date Type Department Care Team (Late st Contact Info) Description 10/22/2022 Orders Only [facility] 230 [place], [place] [phone] Radha Johnson LPN Social History Tobacco Use [...] Info) Description 10/08/2025 2:30 PM EST Telemedicine [facility] CH[facility] MED & PEDS 505 [place], [place] [phone] Loyda Banda, RN 505 [place], [place] [phone] 10/17/2025 9:30 AM EST Office Visit [facility] MEDICINE 230 [place] [address] Daisha Crane MD 230 [place] [address] documented as of this encounter Visit Diagnoses Not on filedocumented in this encounter Care Teams Rn Faculty Relationship Specialty Start Date End Date Daisha Crane MD 230 [place] [address] PCP - General Family Medicine 11/01/18 Lisa Liao, GenevaD 230 [place] [address] Pharmacist Internal Medicine 04/06/23 02/02/25 Alissa Santillan MD [address] [place] [address] Rheumatology 11/09/24 Sharon Guardado [address] 3rd [place] [address] Cardiology 11/13/24 Cedric Lujan MD [address] [place] [address] Orthopaedic Surgery 11/23/24 Rory Angeles MD [address] [place] [address] Pain Medicine 02/06/25 Jairon Crawford OD [facility] [address] [place] [address] Optometry 03/07/25 Laura Velarde MD Rheumatology 03/28/25 documented as of this encounter
--- OUTSIDE RECORDS SUMMARY | 2025-09-07 09:18 | XMS_ITS | Encounter Summary ---
Author Organization [employer] Address [address] [place] [address] 7t [place] [address] Care Team Providers Care Truer Pinion And Wheel Name Role Phone Daisha Crane MD Primary Care Provider +1- [phone] Lisa Liao PharmD Unavailable Alissa Santillan MD Unavailable Sharon Guardado Unavailable Cedric Lujan MD Unavailable Rory Angeles MD Unavailable Jairon Crawford OD Unavailable Encounter Details Date Type Department Care Team (Late st Contact Info) Description 06/01/2023 Abstract [facility] MEDICINE 230 [place], [place] [phone] Daisha Crane MD 230 [place], [place] [phone] Social History Tobacco Use Types Packs/Day Years [...] [facility] [address] [place] [address] Loyda Banda, SO [address] [place] [address] 10/17/2025 9:30 AM EST Office Visit [facility] MEDICINE 230 [place] [address] Daisha Crane MD 230 [place] [address] documented as of this encounter Goals Goal Patient Goal Type Associated Problems Recent Progress Patient-Stated? Author Blood Pressure < 140/90 Blood Pressure 116/75( 025 9:05 AM EST) No Lisa Anguiano, Nidia documented as of this encounter Visit Diagnoses Not on filedocumented in this encounter Additional Health Concerns Assessment Noted Time PHQ-9 Depression Total Score: 0 11/23/19 10:39 AM EST documented as of this encounter Care Teams Truer Pinion And Wheel Relationship Specialty Start Date End Date Daisha Crane MD 230 [place] [address] PCP - General Family Medicine 11/01/18 Lisa Liao, PharmD 230 [place] [address] Pharmacist Internal Medicine 04/06/23 02/02/25 Alissa Santillan MD [address] [place] [address] Rheumatology 11/09/24 Sharon Guardado [address] 3rd [place] [address] Cardiology 11/13/24 Cedric Lujan MD [address] [place] [address] Orthopaedic Surgery 11/23/24 Rory Angeles MD [address] [place] [address] Pain Medicine 02/06/25 Jairon Crawford OD [facility] [address] [place] [address] Optometry 03/07/25 Laura Velarde MD Rheumatology 03/28/25 documented as of this encounter
--- OUTSIDE RECORDS SUMMARY | 2025-09-07 09:18 | XMS_ITS | Encounter Summary ---
Author Organization [employer] Address [address] [facility] 7t [place] [address] Care Team Providers Care Power Shovel Operator Name Role Phone Daisha Crane MD Primary Care Provider +1- [phone] Lisa Liao PharmD Unavailable +[phone] Alissa Santillan MD Unavailable Sharon Guardado Unavailable Cedric Lujan MD Unavailable oRry Angeles MD Unavailable Jairon Crawford OD Unavailable Encounter Details Date Type Department Care Team (Late st Contact Info) Description 12/16/2022 Orders Only [facility] CH[facility] MED & PEDS [address] [place], [place] [phone] Jenn Polk LPN Social History Tobacco Use [...] [facility] 505 [place] [address] Loyda Banda, RN 505 [place] [address] 10/17/2025 9:30 AM EST Office Visit [facility] MEDICINE 230 [place] [address] Daisha Crane MD 230 [place] [address] documented as of this encounter Visit Diagnoses Not on filedocumented in this encounter Additional Health Concerns Assessment Noted Time PHQ-9 Depression Total Score: 0 11/23/19 10:39 AM EST documented as of this encounter Care Teams Power Shovel Operator Relationship Specialty Start Date End Date Daisha Crane MD [address] [place] [address] PCP - General Family Medicine 11/01/18 Lisa Liao, PharmD [address] [place] [address] Pharmacist Internal Medicine 04/06/23 02/02/25 Alissa Santillan MD [address] [place] [address] Rheumatology 11/09/24 Sharon Guardado [address] 3rd [place] [address] Cardiology 11/13/24 Cedric Lujan MD [address] [place] [address] Orthopaedic Surgery 11/23/24 Rory Angeles MD [address] [place] [address] Pain Medicine 02/06/25 Jairon Crawford, [facility] [address] [place] [address] Optometry 03/07/25 Laura Velarde MD Rheumatology 03/28/25 documented as of this encounter
--- OUTSIDE RECORDS SUMMARY | 2025-09-07 09:18 | XMS_ITS | Encounter Summary ---
Author Organization [employer] Address [address] [facility] 7t [place] [address] Care Team Providers Care Roper Operator Name Role Phone Daisha Crane MD Primary Care Provider +1- [phone] Alissa Santillan MD Unavailable Sharon Guardado Unavailable Cedric Lujan MD Unavailable Rory Angeles MD Unavailable Jairon Crawfrod OD Unavailable Reason for Visit * Reason Onset Date Comments Med Refill 03/23/2025 Encounter Details Date Type Department Care Team (Late st Contact Info) Description 03/23/2025 Telephone [facility] MEDICINE 230 [place], [place] [phone] Daisha Crane MD 230 [place], [place] [phone] Med Refill Social History Tobacco Use Types [...] immediate release tablet To be sent to: [facility] - [place], [place] - [address] [place] [address] documented in this encounter Plan of Treatment Upcoming Encounters Date Type Department Care Team (Late st Contact Info) Description 10/08/2025 2:30 PM EST Telemedicine [facility] MED & PEDS 505 [place] [address] Loyda Banda, SO 505 [place] [address] 10/17/2025 9:30 AM EST Office Visit [facility] MEDICINE 230 [place] [address] Daisha Crane MD 230 [place] [address] documented as of this encounter Goals Goal [...] documented as of this encounter Care Teams Roper Operator Relationship Specialty Start Date End Date Daisha Crane MD 230 [place] [address] PCP - General Family Medicine 11/01/18 Alissa Santillan MD [address] [place] [address] Rheumatology 11/09/24 Sharon Guardado [address] 3rd [place] [address] Cardiology 11/13/24 Cedric Lujan MD [address] [place] [address] Orthopaedic Surgery 11/23/24 Rory Angeles MD [address] [place] [address] Pain Medicine 02/06/25 Jairon Crawford OD [facility] [address] [place] [address] Optometry 03/07/25 Laura Velarde MD Rheumatology 03/28/25 documented as of this encounter
--- OUTSIDE RECORDS SUMMARY | 2025-09-07 09:18 | XMS_ITS | Encounter Summary ---
Author Organization [employer] Address [address] [facility] 7t [place] [address] Care Team Providers Care Char Belt Operator Name Role Phone Daisha Crane MD Primary Care Provider +1- [phone] Lisa Liao PharmD Unavailable Alissa Santillan MD Unavailable Sharon Guardado Unavailable Cedric Lujan MD Unavailable Rory Angeles MD Unavailable Jairon Crawford OD Unavailable Encounter Details Date Type Department Care Team (Late st Contact Info) Description 12/08/2022 Abstract [facility] MEDICINE [address] [place], [place] [phone] Daisha Crane MD [address] [place], [place] [phone] Social History Tobacco Use Types Packs/Day Years [...] Info) Description 10/08/2025 2:30 PM EST Telemedicine [facility]C MED & PEDS 505 [place] [address] Loyda Banda, RN 505 [place] [address] 10/17/2025 9:30 AM EST Office Visit [facility] MEDICINE 230 [place] [address] Daisha Crane MD [address] [place] [address] documented as of this encounter Procedures Procedure [...] documented as of this encounter Care Teams Char Belt Operator Relationship Specialty Start Date End Date Daisha Crane MD 230 [place] [address] PCP - General Family Medicine 11/01/18 Lisa Liao PharmD [address] [place] [address] Pharmacist Internal Medicine 04/06/23 02/02/25 Alissa Santillan MD [address] [place] [address] Rheumatology 11/09/24 Sharon Guardado [address] 3rd [place] [address] Cardiology 11/13/24 Cedric Lujan MD [address] [place] [address] Orthopaedic Surgery 11/23/24 Rory Angeles MD [address] [place] [address] Pain Medicine 02/06/25 Jairon Crawford OD [facility] [address] [place] [address] Optometry 03/07/25 Laura Velarde MD Rheumatology 03/28/25 documented as of this encounter
--- OUTSIDE RECORDS SUMMARY | 2025-09-07 09:18 | XMS_ITS | Encounter Summary ---
Author Organization [employer] Address [address] [facility] 7t [place] [address] Care Team Providers Care Environmental Journalist Name Role Phone Daisha Crane MD Primary Care Provider + [phone] Lisa Liao PharmD Unavailable Alissa Santillan MD Unavailable Sharon Guardado Unavailable Cedric Lujan MD Unavailable Rory Angeles MD Unavailable Jairon Crawford OD Unavailable Encounter Details Date Type Department Care Team (Late st Contact Info) Description 03/05/2023 Orders Only [facility] MEDICINE 230 [place], [place] [phone] Radha Johnson LPN Social History Tobacco Use [...] Info) Description 10/08/2025 2:30 PM EST Telemedicine [facility] MED & PEDS 505 [place] [address] Loyda Banda, SO 505 [place] [address] 10/17/2025 9:30 AM EST Office Visit [facility] MED[facility]INE [address] [place] [address] Daisha Crane MD 230 [place] [address] documented as of this encounter Visit Diagnoses Not on filedocumented in this encounter Additional Health Concerns Assessment Noted Time PHQ-9 Depression Total Score: 0 11/23/19 10:39 AM EST documented as of this encounter Care Teams Environmental Journalist Relationship Specialty Start Date End Date Daisha Crane MD [address] [place] [address] PCP - General Family Medicine 11/01/18 Lisa Liao, GenevaD [address] [place] [address] Pharmacist Internal Medicine 04/06/23 02/02/25 Alissa Santillan MD [address] [place] [address] Rheumatology 11/09/24 Sharon Guardado [address] 3rd [place] [address] Cardiology 11/13/24 Cedric Lujan MD [address] [place] [address] Orthopaedic Surgery 11/23/24 Rory Angeles MD [address] [place] [address] Pain Medicine 02/06/25 Jairon Crawford OD [facility] [address] [place] [address] Optometry 03/07/25 Laura Velarde MD Rheumatology 03/28/25 documented as of this encounter
--- OUTSIDE RECORDS SUMMARY | 2025-09-07 09:19 | XMS_ITS | Encounter Summary ---
Author Organization [employer] Address [address] [facility] 7t [place] [address] Care Team Providers Care Hospital Chief Executive Officer Name Role Phone Daisha Crane MD Primary Care Provider + [phone] Lisa Liao PharmD Unavailable Alissa Santillan MD Unavailable Sharon Guardado Unavailable Cedric Lujan MD Unavailable Rory Angeles MD Unavailable Jairon Crawford OD Unavailable Encounter Details Date Type Department Care Team (Late st Contact Info) Description 03/15/2023 Orders Only [facility] MED & PEDS 505 [place] [address] Jenn Polk LPN Social History Tobacco Use [...] Info) Description 10/08/2025 2:30 PM EST Telemedicine [facility] MED & PEDS 505 [place] [address] Loyda Banda, SO 505 [place] [address] 10/17/2025 9:30 AM EST Office Visit [facility] MEDICINE 230 [place] [address] Daisha Crane MD [address] [place] [address] documented as of this encounter Visit Diagnoses Not on filedocumented in this encounter Additional Health Concerns Assessment Noted Time PHQ-9 Depression Total Score: 0 11/23/19 10:39 AM EST documented as of this encounter Care Teams Hospital Chief Executive Officer Relationship Specialty Start Date End Date Daisha Crane MD [address] [place] [address] PCP - General Family Medicine 11/01/18 Lisa Liao, GenevaD [address] [place] [address] Pharmacist Internal Medicine 04/06/23 02/02/25 Alissa Santillan MD [address] [place] [address] Rheumatology 11/09/24 Sharon Guardado [address] 3rd [place] [address] Cardiology 11/13/24 Cedric Lujan MD [address] [place] [address] Orthopaedic Surgery 11/23/24 Rory Angeles MD [address] [place] [address] Pain Medicine 02/06/25 Jairon Crawford OD [facility] [address] [place] [address] Optometry 03/07/25 Laura Velarde MD Rheumatology 03/28/25 documented as of this encounter
--- OUTSIDE RECORDS SUMMARY | 2025-09-07 09:19 | XMS_ITS | Encounter Summary ---
Author Organization [employer] Address [address] [place] [address] 7t [place] [address] Care Team Providers Care Tetryl Nitrator Operator Name Role Phone Daisha Crane MD Primary Care Provider +1- [phone] Lisa Liao PharmD Unavailable [phone] Alissa Santillan MD Unavailable Sharon Guardado Unavailable Cedric Lujan MD Unavailable Rory Angeles MD Unavailable Jairon Crawford OD Unavailable Reason for Visit * Reason Onset Date Comments Med Refill 03/15/2023 Encounter Details Date Type Department Care Team (Late st Contact Info) Description 03/15/2023 Telephone [facility] MEDICINE 230 [place], [place] [phone] Daisha Crane MD 230 [place], [place] [phone] Med Refill Social History Tobacco Use Types [...] Info) Description 10/08/2025 2:30 PM EST Telemedicine [facility] CH[facility] MED & PEDS 505 [place] [address] Loyda Banda RN 505 [place], [place] [phone] 10/17/2025 9:30 AM EST Office Visit [facility] MEDICINE 230 [place] [address] Daihsa Crane MD 230 [place] [address] documented as of this encounter Visit Diagnoses Not on filedocumented in this encounter Additional Health Concerns Assessment Noted Time PHQ-9 Depression Total Score: 0 11/23/19 23 10:39 AM EST documented as of this encounter Care Teams Tetryl Nitrator Operator Relationship Specialty Start Date End Date Daisha Crane MD [address] [place] [address] PCP - General Family Medicine 11/01/18 Lisa Liao, PharmD [address] [place] [address] Pharmacist Internal Medicine 04/06/23 02/02/25 Alissa Santillan MD [address] [place] [address] Rheumatology 11/09/24 Sharon Guardado [address] 3rd [place] [address] Cardiology 11/13/24 Cedric Lujan MD [address] [place] [address] Orthopaedic Surgery 11/23/24 Rory Angeles MD [address] [place] [address] Pain Medicine 02/06/25 Jairon Crawford OD [facility] [address] [place] [address] Optometry 03/07/25 Laura Velarde MD Rheumatology 03/28/25 documented as of this encounter
--- OUTSIDE RECORDS SUMMARY | 2025-09-07 09:19 | XMS_ITS | Encounter Summary ---
Author Organization [employer] Address [address] [facility] 7t [place] [address] Care Team Providers Care Php Developer Name Role Phone Daisha Crane MD Primary Care Provider +1- [phone] Lisa Liao PharmD Unavailable Alissa Santillan MD Unavailable Sharon Guardado Unavailable Cedric Lujan MD Unavailable Rory Angeles MD Unavailable Jairon Crawford OD Unavailable Reason for Visit * Reason Onset Date Comments Med Refill 11/24/2023 Encounter Details Date Type Department Care Team (Late st Contact Info) Description 11/24/2023 Telephone [facility] MEDICINE [address] [place], [place] [phone] Daisha Crane MD 230 [place], [place] [phone] Med Refill Social History Tobacco Use Types [...] release tablet To be sent to: [facility] - [place], [place] - [address] [place] [address] documented in this encounter Plan of Treatment Upcoming Encounters Date Type Department Care Team ([facility] st Contact Info) Description 10/08/2025 2:30 PM EST Telemedicine [facility] CH[facility] MED & PEDS 505 [place] [address] Loyda Banda RN 505 [place] [address] 10/17/2025 9:30 AM EST Office Visit [facility] MEDICINE [address] [place] [address] Daisha Crane MD 230 [place] [address] documented as of this encounter Goals Goal [...] documented as of this encounter Care Teams Php Developer Relationship Specialty Start Date End Date Daisha Crane MD 230 [place] [address] PCP - General Family Medicine 11/01/18 Lisa Liao PharmD 230 [place] [address] Pharmacist Internal Medicine 04/06/23 02/02/25 Alissa Santillan MD [address] [place] [address] Rheumatology 11/09/24 Sharon Guardado [address] 3rd [place] [address] Cardiology 11/13/24 Cedric Lujan MD [address] [place] [address] Orthopaedic Surgery 11/23/24 Rory Angeles MD [address] [place] [address] Pain Medicine 02/06/25 Jairon Crawford OD [facility] [address] [place] [address] Optometry 03/07/25 Laura Velarde MD Rheumatology 03/28/25 documented as of this encounter
== END 2025-09-07 09:22 | disposition home or self-care (01) ==
PROVIDERS: PCP Family Medicine; Visit Provider Registered Nurse Emergency
DX: M25.511 Pain in right shoulder (principal); G89.29 Other chronic pain; M75.101 Unspecified rotator cuff tear or rupture of right shoulder, not specified as traumatic; M12.811 Other specific arthropathies, not elsewhere classified, right shoulder
CPT/HCPCS: 99213; G2211

== ENCOUNTER → 2025-09-07 08:41 | Outpatient (BNVA) | payer OTHER, SELFPAY | PROVIDERS: PCP Family Medicine; Visit Provider Registered Nurse Emergency | DX: M25.511 Pain in right shoulder (principal); G89.29 Other chronic pain; M75.101 Unspecified rotator cuff tear or rupture of right shoulder, not specified as traumatic; M12.811 Other specific arthropathies, not elsewhere classified, right shoulder | CPT/HCPCS: 99212 ==

== ENCOUNTER 2025-10-17 10:17 | Outpatient (REF) | payer OTHER, SELFPAY ==
--- OUTSIDE RECORDS SUMMARY | 2025-10-17 09:30 | XMS_ITS | Encounter Summary ---
Author Organization [employer] Address [address] [place] [address] [address] [place] [address] Care Team Providers Care Shirt Folder Name Role Phone Daisha Crane MD Primary Care Provider [phone] Alissa Santillan MD Unavailable Sharon Guardado Unavailable Cedric Lujan MD Unavailable Rory Angeles MD Unavailable Jairon Crawford OD Unavailable Reason for Referral * Consultation (STAT) - Closed Specialty Diagnoses / Procedures Referred By Contac t Referred To Contact Gastroenterology Diagnoses Unintentional weight loss Anemia, unspecified type Daisha Crane MD [address] [place] [address] Phone: tel: fax: Og Rodríguez MD [address] [place] [id number] Phone: tel: fax: Referral ID Status Reason Start Date Expiration Date V isits Requested Visits Authorized [id number] Closed Specialty Services Required 10/17/2025 10/17/2026 1 1 Reason for Visit * Reason Comments Annual Exam Encounter Details Date Type Department Care Team (Latest Contact Info) Description 10/17/2025 9:30 AM EST Office Visit [facility] [address], [place] [phone] Daisha Crane MD [address] [place] [phone] Unintentional weight loss (Primary Dx); Type 2 diabetes mellitus without complication, without long-term current use of insulin (HCC); Hypertension, unspecified type; 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); Tobacco dependence; Chronic obstructive pulmonary disease with emphysema, unspecified emphysema type (HCC); Dyslipidemia; Anemia, unspecified type; Ascending aorta dilation (CMS/HCC); Other specified health status; Encounter for immunization; History of prostate cancer; Tubular adenoma of colon Social History Tobacco Use Types Packs/Day Years [...] Sign Reading Time Taken Comments Blood Pressure 100/62 10/17/2025 9:38 AM EST Pulse 63 10/17/2025 9:38 AM EST Temperature 37.2 C (98.9 F) 10/17/2025 9:38 AM EST Respiratory Rate 20 10/17/2025 9:38 AM EST Oxygen Saturation 98% 10/17/2025 9:38 AM EST Inhaled Oxygen Concentration - - Weight 67 kg (147 lb 9.6 oz) 10/17/2025 9:38 AM EST Height 167.6 cm (5' 6 ) 10/17/2025 9:38 AM EST Body Mass Index 23.82 10/17/2025 9:38 AM EST documented in this encounter Progress Notes * Daisha Crane MD - 10/17/2025 9:30 AM EST Cindy Ibrahim is a 80 y.o. male with PMHx of rheumatoid arthritis, hypertension, hyperlipidemia, COPD, heart murmur, and gout who presents to the office today here for chronic medical conditions and comprehensive annual evaluation. Interim history: Last PCP visit 03/07/2025 for chornic conditions Current concerns: Unintentional weight loss. Poor appetite. Denies nausea, vomiting, BRBPR, dark or tarry stools. Denies depression. No changes in medications. He is smoking 7 cig per day and agrees to try to decreaseto 2-3 today Agrees to Covid and flu vaccine. As well as lung cancer screening. Social History Tobacco: approximately one half pack per day Drugs: none Alcohol: No Sexuality: Denies current sexual activity Suicide/Depression: The patient denies any present symptoms of depression or anxiety. Review of Systems Constitutional: Negative for fatigue, fever and unexpected weight change. Respiratory: Negative for cough. Cardiovascular: Negative for chest pain. Gastrointestinal: Negative for abdominal pain. Genitourinary: Negative for difficulty urinating. Current Outpatient Medications: Adalimumab (HUMIRA PEN SC), Inject under the skin., Disp: , Rfl: albuterol (Ventolin HFA) 108 (90 Base) MCG/ACT inhaler, INHALE 2 PUFFS BY MOUTH EVERY 4 HOURS NEEDED FOR WHEEZING OR SHORTNESS OF BREATH, Disp: 18 g, Rfl: 0 Arnuity Ellipta 200 MCG/ACT inhaler, INHALE 1 PUFF BY MOUTH EVERY DAY AT THE SAME TIME. RINSE MOUTHAFTER USING., Disp: 30 each, Rfl: 11 atorvastatin (Lipitor) 40 MG tablet, TAKE 1 TABLET BY MOUTH AT BEDTIME, Disp: 90 tablet, Rfl: 3 carvedilol (Coreg) 6.25 MG tablet, Take by mouth with breakfast and with evening meal., Disp: , Rfl: cholecalciferol (Vitamin D-3) 25 MCG tablet, Take 1 tablet (25 mcg) by mouth in the morning., Disp:90 tablet, Rfl: 0 docusate sodium (Colace) 100 MG capsule, TAKE 1 CAPSULE BY MOUTH TWICE DAILY IN THE MORNING AND IN THE EVENING, Disp: 180 capsule, Rfl: 1 folic acid (Folvite) 1 MG tablet, Take 1 tablet (1,000 mcg) by mouth in the morning., Disp: 90 tablet, Rfl: 3 FREESTYLE LITE test strip, TEST BLOOD SUGAR TWICE DAILY, Disp: 50 strip, Rfl: 11 hydroCHLOROthiazide 12.5 MG tablet, TAKE 1 TABLET BY MOUTH EVERY MORNING, Disp: 90 tablet, Rfl: 3 hydroxychloroquine (Plaquenil) 200 MG tablet, TAKE 1 TABLET BY MOUTH TWICE DAILY ON ON WEDNESDAY THROUGH WEDNESDAY OF EACH WEEK AND TAKE 1 TABLET BY MOUTH EVERY DAY ON WEDNESDAY AND WEDNESDAY, Disp: , Rfl: Icosapent Ethyl (Vascepa) 1 g capsule, Take 2 capsules (2 g) by mouth with breakfast and with evening meal., Disp: 360 capsule, Rfl: 3 Incruse Ellipta 62.5 MCG/ACT aerosol powder , INHALE 1 PUFF BY MOUTH EVERY DAY AT THE SAME TIME RINSE MOUTH AFTER USING, Disp: 30 each, Rfl: 5 melatonin 3 MG tablet, TAKE 1 TABLET BY MOUTH AT BEDTIME NEEDED FOR SLEEP, Disp: 30 tablet, Rfl:11 metFORMIN XR (Glucophage-XR) 500 MG 24 hr tablet, TAKE 1 TABLET BY MOUTH TWICE DAILY IN THE MORNINGAND IN THE EVENING DO NOT BREAK, CRUSH, DISSOLVE OR CHEW, Disp: 180 tablet, Rfl: 3 Methotrexate, PF, (Rasuvo) 25 MG/0.5ML solution auto-injector, Inject under the skin., Disp: , Rfl: naloxone (Narcan) 4 mg/0.1 mL nasal spray, FOR SUSPECTED OPIOID OVERDOSE. SPRAY 0.1mL IN ONE NOSTRIL. REPEAT IN ALTERNATE NOSTRIL 2-3 MINUTES IF NEEDED. SEEK MEDICAL ATTENTION IMMEDIATELY EVEN IF PATIENT RESPONDS., Disp: 2 each, Rfl: 0 omeprazole (PriLOSEC) [address] capsule, TAKE 1 CAPSULE BY MOUTH EVERY MORNING BEFORE A MEAL, Disp: 90 capsule, Rfl: 3 oxyCODONE (Roxicodone) 5 MG immediate release tablet, Take 1 tablet (5 mg) by mouth every 8 (eight)hours if needed for severe pain., Disp: 56 tablet, Rfl: 0 predniSONE (Deltasone) 10 MG tablet, Take 10 mg by mouth Once per day., Disp: , Rfl: senna (Senokot) 8.6 MG tablet, TAKE 2 TABLETS BY MOUTH EVERY DAY IN THE EVENING NEEDED FOR CONSTIPATION, Disp: 180 tablet, Rfl: 1 TRUEplus Lancets 33G misc, USE DIRECTED TO TEST BLOOD SUGAR TWICE DAILY, Disp: 100 each, Rfl: 11 Allergies Allergen Reactions Marlo Inhibitors Angioedema and Swelling Lisinopril Swelling Past Medical History: Diagnosis Date Abscess 03/15/2019 Umbilical hernia in 09/2020 S/P I&D with surgery no evidence of infection - Serous drainage. -Seen in ER on 05/18/22 and referred to general surgery due to concern that he may have a fistula. Abscess of umbilicus 05/18/2023 Anemia 11/20/2022 Ferritin was 12 on 03/2021. Increase iron rich foods. Hgb was nml at 13.6 Candidiasis 11/20/2022 Treated 05/18/22 with fluconazole 1 tab, and clotrimazole cream. -Has not had labs done with me yet. Chest pain 04/06/2023 Chronic obstructive lung disease (HCC) 05/05/2012 - PFTS 2009 revealed moderate severe obstructive airway disorder with no significant change with bronchodilator therapy. - Continue Incruse Ellipta Flovent and albuterol prn. - tobacco cessation encouraged Cutaneous skin tags 05/18/2023 Dyslipidemia 05/05/2012 Lab Results Component Value Date CHOL 115 02/16/2024 CHOL 155 06/17/2023 CHOL 177 11/16/2022 TRIG 205 (H) 02/16/2024 TRIG 166 06/17/2023 TRIG 168 11/16/2022 HDL 41 02/16/2024 HDL 55 06/17/2023 HDL 69 11/16/2022 LDLCHOLCAL 33 01/30 Edema of both ankles 04/06/2023 Elevated aspartate aminotransferase level 08/09/2015 Epidermal inclusion cyst 04/06/2023 Fracture of right distal radius 04/06/2023 History of prostate cancer 05/05/2012 Hypertension 05/05/2012 Amlodipine 5mg discontinued by CDTM 05/22/24 due to noted edema Continue hydrochlorothiazide 12.5mg once daily and carvedilol 6.25mg Was seen by cardiology 05/30/24 and plan above noted to continue Work on lifestyle modifications, especially smoking cessation Iron deficiency 04/06/2023 Leg swelling 11/20/2022 Likely fromalmlodipine, not noticed on exam. No evidence of hypervolemia. Leukocytosis 11/20/2022 White count was 12.7 then 14 Possibly due to prednisone in setting of tobacco use. - Re-check 05/22. Osteoporosis 04/06/2023 DEXA from November 2019 with osteopenia but high FRAX score. Patient started on Fosamax in November 2019, tolerating medications. His repeat DEXA scan in 2021 shows mild insignificant improvement.? Alendronate was stopped sometime 2021 in preparation for his dental implants. Patient already has his dental implants. Fosamax restarted 09/2022. Discontinue 11/2023 due to GI upset.. DEXA sca Pain in right shoulder 04/06/2023 Personal history of colonic polyps 06/04/2023 Rheumatoid arthritis involving multiple sites with positive rheumatoid factor (CMS/HCC) ([facility]) 11/20/2022 Followed by pathology laboratory director Dr. Santillan. Per note 11/18/23:On Actemra 162 mg every other week, Rasuvo 25 mg subcutaneously once weekly. Once prednisone was lowered to 5 mg daily he started having bilateral wrist swelling. Left wrist swelling improved with increasing prednisone to 10 mg daily but he continues to have significant right ECU tenosynovitis. Increase prednisone to 30 mg daily for 5 Secondary hyperparathyroidism (CMS/HCC) 02/05/2022 Labs on 03/2021 had a PTH of 66 and Vitamin D of 26. Continue Vitamin D supplementation. Tenosynovitis of right wrist 04/06/2023 Tobacco dependence 11/20/2022 -Cigg/day: 7 -Age started: 15 -Total years smokin -Pack year history: 19 Encouraged smoking cessation resources such as pharmacomtherapy, [facility] smoking cessation group, and [facility] pharmacy smoking cessation clinic Discussed USPSTF recommends annual lung cancer screening with low dose CT in people who meet the following criteria: -ages 50 to 80 years. -have a 20 pack-year smoking histor Tubular adenoma of colon 08/03/2013 Hx tubular adenoma on colonoscopies 02/03/13 and 01/[address] Rodríguez. Repeat Dec 21 2020, next due in 5 years, 12/2025 Type 2 diabetes mellitus without complication 10/13/2022 Diabetes is controlled. Lab Results Component Value Date HGBA1C 7.1 (A) 02/08/2024 HGBA1C 8.0 (A) 07/16/2023 HGBA1C 7.6 (H) 04/21/2023 - Lab Results Component Value Date CREATININE 0.77 02/16/2024 EGFR >60 02/16/2024 MICROALBCREU 17.0 06/17/2023 LDLCHO Umbilical hernia 04/06/2023 Past Surgical History: Procedure Laterality Date CATARACT EXTRACTION Bilateral CTA CHEST W AND WO CONTRAST 01/02/2025 CTA CHEST W AND WO CONTRAST Family History Problem Relation Name Age of Onset Breast cancer Mother Objective Visit Vitals BP 100/62 (BP Location: Left arm, Patient Position: Sitting, BP Cuff Size: Adult) Pulse 63 Temp 98.9 ??F (37.2 ??C) (Oral) Resp 20 Ht 5' 6 (1.676 m) Wt 147 lb 9.6 oz (67 kg) SpO2 98% BMI 23.82 kg/m?? Smoking Status Every Day BSA 1.77 m?? Physical Exam Constitutional: Appearance: Normal appearance. HENT: Right Ear: Tympanic membrane normal. Left Ear: Tympanic membrane normal. Nose: Nose normal. Mouth/Throat: Pharynx: Oropharynx is clear. Eyes: Extraocular Movements: Extraocular movements intact. Pupils: Pupils are equal, round, and reactive to light. Cardiovascular: Rate and Rhythm: Normal rate and regular rhythm. Heart sounds: Murmur heard. Pulmonary: Effort: Pulmonary effort is normal. Breath sounds: Normal breath sounds. No wheezing. Abdominal: General: Abdomen is flat. Palpations: Abdomen is soft. Tenderness: There is no abdominal tenderness. Musculoskeletal: Right shoulder: Decreased range of motion (due to pain). Skin: General: Skin is warm and dry. Neurological: General: No focal deficit present. Mental Status: He is alert. Psychiatric: Mood and Affect: Mood normal. Behavior: Behavior normal. 80 y.o. male annual evaluation. Assessment & Plan Unintentional weight loss BMI Readings from Last 3 Encounters: 10/17/25 23.82 kg/m?? 09/04/25 24.21 kg/m?? 03/07/25 25.50 kg/m?? Wt Readings from Last 3 Encounters: 10/17/25 147 lb 9.6 oz (67 kg) 09/04/25 150 lb (68 kg) 03/07/25 158 lb (71.7 kg) Intendtional weight loss of 11 lbs in 7 months. Check TSH, HIV, PSA, CBC Hx tubular adenoma on colonoscopies 02/03/13 and 01/[address] Rodríguez. Repeat Dec 21 2020, next due in 5 years, 12/2025 -referred back for lung cancer screening 10/17/25 -referred back to GI due to worsening iron deficient anemia and unintentional weight loss Orders: Hepatic Function Panel; Future Basic Metabolic Panel; Future CBC auto differential; Future Ferritin; Future TSH with Reflex to Free T4; Future Iron And Total Iron Binding Capacity; Future Vitamin B12 (Cobalamin) and Folate Panel, Serum; Future HIV-1/2 Antigen and Antibodies, Fourth Generation, with Reflexes; Future Referral to Gastroenterology; Future Type 2 diabetes mellitus without complication, without long-term current use of insulin (HCC) Diabetes is controlled. Lab Results Component Value Date HGBA1C 6.1 (A) 10/17/2025 HGBA1C 6.4 (A) 03/07/2025 HGBA1C 6.9 (A) 09/04/2024 Lab Results Component Value Date CREATININE 0.74 07/04/2025 EGFR >60 07/04/2025 MICROALBCREU 18.6 09/15/2024 MICROALBCREU 17.0 06/17/2023 LDLCHOLCAL 36 07/04/2025 -Marlo/Arb: none ALLERGY TO MARLO -Statin therapy: atorvastatin 40mg -Diabetic eye exam: Had appt Dec 2024 -Diabetic foot exam: Saw Podiatry 11/07/24, foot exam with me 03/07/25 -Continue lifestyle modifications Orders: POCT glucose manually resulted POCT glycosylated hemoglobin (Hgb A1c) Albumin, Random Urine W/Creatinine; Future Hypertension, unspecified type Amlodipine 5mg discontinued by CDTM 05/22/24 due to noted edema Continue hydrochlorothiazide 12.5mg once daily and carvedilol 6.25mg Was seen by cardiology 05/30/24 and plan above noted to continue Work on lifestyle modifications, especially smoking cessation 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) Followed by rheumatology -Chest CTA 10/2022 showed no evidence of ILD -T-spot and Hepatitis panel -vl 11/2023,. Dr. Shah note 03/27/25 - s/p steroid injection to right wrist - Decrease prednisone to 7.5mg daily - Methotrexate 25mg SC - Folic acid 1mg daily - Actemra 162mg SC - Hydroxychloroquine 300mg daily - RTC 3 months Tobacco dependence -Cigg/day: 7 -Age started: 15 -Total years smokin -Pack year history: 21 Encouraged smoking cessation resources such as pharmacomtherapy, [facility] smoking cessation group, and [facility] pharmacy smoking cessation clinic Discussed USPSTF recommends annual lung cancer screening with low dose CT in people who meet the following criteria: -ages 50 to 80 years. -have a 20 pack-year smoking history. -currently smoke cigarettes or quit within the past 15 years. -LDCT: Referring to program for cancer screening for lungs 04/06/2024, rereferred 09/04/24 Chronic obstructive pulmonary disease with emphysema, unspecified emphysema type (HCC) - PFTS 2009 revealed moderate severe obstructive airway disorder with no significant change with bronchodilator therapy. -Chest CTA 10/2022 showed no evidence of ILD - Continue LAMA: Incruse Ellipta, ICS: Flovent and NAHEED: albuterol prn. - tobacco cessation encouraged Dyslipidemia Lab Results Component Value Date CHOL 97 07/04/2025 CHOL 104 10/09/2024 CHOL 115 02/16/2024 TRIG 130 07/04/2025 TRIG 122 10/09/2024 TRIG 205 (H) 02/16/2024 HDL 35 (L) 07/04/2025 HDL 37 (L) 10/09/2024 HDL 41 02/16/2024 LDLCHOLCAL 36 07/04/2025 LDLCHOLCAL 43 10/09/2024 LDLCHOLCAL 33 02/16/2024 -continue lifestyle modification -Vascepa 2 grams twice daily started by CDTM 05/22/24 Anemia, unspecified type Orders: Referral to Gastroenterology; Future Ascending aorta dilation (CMS/HCC) Followed by Sharon LEWIS for [facility]. Seen 01/14/25. -Hx of dilated [...] cm ectasia, ascending thoracic aorta. Overall stable. Other specified health status -next physical exam due after 10/17/26 -eye care facilitated by [facility] -dental home is [facility] in [place]. -healthcare Proxy completed and filed 04/06/2024. Encounter for immunization Orders: FLU VACCINE TRIVALENT HIGH DOSE [id number] (Fluzone) 65 yrs + COVID-19 VACCINE [id number] (Comirnaty) 19 yrs + History of prostate cancer Orders: PSA,Total; Future Tubular adenoma of colon Hx tubular adenoma on colonoscopies 02/03/13 and 01/[address] Rodríguez. Repeat Dec 21 2020, next due in 5 years, 12/2025 -referred back to GI due to worsening iron deficient anemia and unintentional weight loss 10/17/25 Annual Evaluation -Normal growth and development. -Anticipatory guidance discussed. -Preventative care / harm reduction discussed. Follow up in about 2 months (around 12/18/2025) for unintentional weigh tloss follow. This note was drafted using Ambient (AI) technology. The patient/patient's guardian has been informed and has consented to the use of this technology: Yes documented in this encounter Miscellaneous Notes * Assessment & Plan Note - Daisha Crane MD - 10/17/2025 9:30 AM EST Associated Problem(s): Anemia Orders: Referral to Gastroenterology; Future * Assessment & Plan Note - Daisha Crane MD - 10/17/2025 9:30 AM EST Associated Problem(s): 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) Followed by rheumatology -Chest CTA 10/2022 showed no evidence of ILD -T-spot and Hepatitis panel -vl 11/2023,. Dr. Shah note 03/27/25 - s/p steroid injection to right wrist - Decrease prednisone to 7.5mg daily - Methotrexate 25mg SC - Folic acid 1mg daily - Actemra 162mg SC - Hydroxychloroquine 300mg daily - RTC 3 months * Assessment & Plan Note - Daisha Crane MD - 10/17/2025 9:30 AM EST Associated Problem(s): Tobacco dependence -Cigg/day: 7 -Age started: 15 -Total years smokin -Pack year history: 21 Encouraged smoking cessation resources such as pharmacomtherapy, [facility] smoking cessation group, and [facility] pharmacy smoking cessation clinic Discussed USPSTF recommends annual lung cancer screening with low dose CT in people who meet the following criteria: -ages 50 to 80 years. -have a 20 pack-year smoking history. -currently smoke cigarettes or quit within the past 15 years. -LDCT: Referring to program for cancer screening for lungs 04/06/2024, rereferred 09/04/24 * Assessment & Plan Note - Daisha Crane MD - 10/17/2025 9:30 AM EST Associated Problem(s): Ascending aorta dilation (CMS/HCC) Followed by Sharon LEWIS for [facility]. Seen 01/14/25. -Hx of dilated [...] cm ectasia, ascending thoracic aorta. Overall stable. * Assessment & Plan Note - Daisha Crane MD - 10/17/2025 9:30 AM EST Associated Problem(s): Chronic obstructive lung disease (HCC) - PFTS 2010 revealed moderate severe obstructive airway disorder with no significant change with bronchodilator therapy. -Chest CTA 10/2022 showed no evidence of ILD - Continue LAMA: Incruse Ellipta, ICS: Flovent and NAHEED: albuterol prn. - tobacco cessation encouraged * Assessment & Plan Note - Daisha Crane MD - 10/17/2025 9:30 AM EST Associated Problem(s): Dyslipidemia Lab Results Component Value Date CHOL 97 07/04/2025 CHOL 104 10/09/2024 CHOL 115 02/16/2024 TRIG 130 07/04/2025 TRIG 122 10/09/2024 TRIG 205 (H) 02/16/2024 HDL 35 (L) 07/04/2025 HDL 37 (L) 10/09/2024 HDL 41 02/16/2024 LDLCHOLCAL 36 07/04/2025 LDLCHOLCAL 43 10/09/2024 LDLCHOLCAL 33 02/16/2024 -continue lifestyle modification -Vascepa 2 grams twice daily started by CDTM 05/22/24 * Assessment & Plan Note - Daisha Crane MD - 10/17/2025 9:30 AM EST Associated Problem(s): HTN (hypertension) Amlodipine 5mg discontinued by CDTM 05/22/24 due to noted edema Continue hydrochlorothiazide 12.5mg once daily and carvedilol 6.25mg Was seen by cardiology 05/30/24 and plan above noted to continue Work on lifestyle modifications, especially smoking cessation * Assessment & Plan Note - Daisha Crane MD - 10/17/2025 9:30 AM EST Associated Problem(s): Other specified health status -next physical exam due after 10/17/26 -eye care facilitated by [facility] -dental home is [facility] in [place]. -healthcare Proxy completed and filed 04/06/2024. * Assessment & Plan Note - Daisha Crane MD - 10/17/2025 9:30 AM EST Associated Problem(s): Type 2 diabetes mellitus without complication, without long-term current useof insulin (HCC) Diabetes is controlled. Lab Results Component Value Date HGBA1C 6.1 (A) 10/17/2025 HGBA1C 6.4 (A) 03/07/2025 HGBA1C 6.9 (A) 09/04/2024 Lab Results Component Value Date CREATININE 0.74 07/04/2025 EGFR >60 07/04/2025 MICROALBCREU 18.6 09/15/2024 MICROALBCREU 17.0 06/17/2023 LDLCHOLCAL 36 07/04/2025 -Marlo/Arb: none ALLERGY TO MARLO -Statin therapy: atorvastatin 40mg -Diabetic eye exam: Had appt Dec 2024 -Diabetic foot exam: Saw Podiatry 11/07/24, foot exam with me 03/07/25 -Continue lifestyle modifications Orders: POCT glucose manually resulted POCT glycosylated hemoglobin (Hgb A1c) Albumin, Random Urine W/Creatinine; Future * Assessment & Plan Note - Daisha Crane MD - 10/17/2025 9:30 AM EST Associated Problem(s): Unintentional weight loss BMI Readings from Last 3 Encounters: 10/17/25 23.82 kg/m?? 09/04/25 24.21 kg/m?? 03/07/25 25.50 kg/m?? Wt Readings from Last 3 Encounters: 10/17/25 147 lb 9.6 oz (67 kg) 09/04/25 150 lb (68 kg) 03/07/25 158 lb (71.7 kg) Intendtional weight loss of 11 lbs in 7 months. Check TSH, HIV, PSA, CBC Hx tubular adenoma on colonoscopies 02/03/13 and 01/[address] Rodríguez. Repeat Dec 21 2020, next due in 5 years, 12/2025 -referred back for lung cancer screening 10/17/25 -referred back to GI due to worsening iron deficient anemia and unintentional weight loss Orders: Hepatic Function Panel; Future Basic Metabolic Panel; Future CBC auto differential; Future Ferritin; Future TSH with Reflex to Free T4; Future Iron And Total Iron Binding Capacity; Future Vitamin B12 (Cobalamin) and Folate Panel, Serum; Future HIV-1/2 Antigen and Antibodies, Fourth Generation, with Reflexes; Future Referral to Gastroenterology; Future * Assessment & Plan Note - Daisha Crane MD - 10/17/2025 9:30 AM EST Associated Problem(s): History of prostate cancer Orders: PSA,Total; Future * Assessment & Plan Note - Daisha Crane MD - 10/17/2025 9:30 AM EST Associated Problem(s): Tubular adenoma of colon Hx tubular adenoma on colonoscopies 02/03/13 and 01/[address] Rodríguez. Repeat Dec 21 2020, next due in 5 years, 12/2025 -referred back to GI due to worsening iron deficient anemia and unintentional weight loss 10/17/25 documented in this encounter Plan of Treatment Upcoming Encounters Date Type Department Care Team (Late st Contact Info) Description 12/26/2025 9:30 AM EST Office Visit [facility] [address] [place] [phone] Daisha Crane MD [address] [place] [address] 01/07/2026 1:30 PM EDT Telemedicine [facility] [address] [place] [address] Loyda Banda, RN [address] [place] [address] Scheduled Orders Name Type Priority Associated Diagnoses Orde r Schedule Hepatic Function Panel Lab Routine Unintentional weight loss Expected: 10/17/2025 (Approximate), Expires: 10/17/2026 Basic Metabolic Panel Lab Routine Unintentional weight loss Expected: 10/17/2025 (Approximate), Expires: 10/17/2026 Ferritin Lab Routine Unintentional weight loss Expected: 10/17/2025, Expires: 10/17/2026 TSH with Reflex to Free T4 Lab Routine Unintentional weight loss Expected: 10/17/2025 (Approximate), Expires: 10/17/2026 Iron And Total Iron Binding Capacity Lab Routine Unintentional weight loss Expected: 10/17/2025, Expires: 10/17/2026 Vitamin B12 (Cobalamin) and Folate Panel, Serum Lab Routine Unintentional weight loss Expected: 10/17/2025, Expires: 10/17/2026 HIV-1/2 Antigen and Antibodies, Fourth Generation, with Reflexes Lab Routine Unintentional weight loss Expected: 10/17/2025 (Approximate), Expires: 10/17/2026 PSA,Total Lab Routine History of prostate cancer Expected: 10/17/2025, Expires: 10/17/2026 Scheduled Referrals Name Type Priority Associated Diagnoses Order Schedule Referral to Gastroenterology Outpatient Referral STAT Unintentional weight loss Anemia, unspecified type Expected: 10/17/2025 (Approximate), Expires: 10/17/2026 documented as of this encounter Goals Goal Patient Goal Type Associated Problems Recent Progress Patient-Stated? Author Blood Pressure < 140/90 Blood Pressure 100/62(2024 9:38 AM EST) No Lisa Liao, Nidia Hemoglobin A1c < 8 Result Component 6.1( 9:50 AM EST) No Lisa Liao, Nidia Help patients manage their type 2 diabetes Care Plan Help patients manage their type 2 diabetes No Sky Willams Weekly blood pressure task Care Plan Weekly blood pressure task No Sky Willams Help patients manage their type 2 diabetes Care Plan Help patients manage their type 2 diabetes No Sky Willams Patient has chronic kidney disease Care Plan Patient has chronic kidney disease No Sky Willams Weekly blood pressure task Care Plan Weekly blood pressure task No Sky Willams Patient has chronic kidney disease Care Plan Patient has chronic kidney disease No Sky Willams Weekly blood pressure task Care Plan Weekly blood pressure task No Loyda Banda RN Weekly blood pressure task Care Plan Weekly blood pressure task No Loyda Banda RN Patient has chronic kidney disease Care Plan Patient has chronic kidney disease No Loyda Banda, SO Patient has chronic kidney disease Care Plan Patient has chronic kidney disease No Loyda Banda RN Weekly blood pressure task Care Plan Weekly blood pressure task No Jenn Coburn PharmD Weekly blood pressure task Care Plan Weekly blood pressure task No Jenn Coburn PharmD Patient has chronic kidney disease Care Plan Patient has chronic kidney disease No Jenn Coburn PharmD Patient has chronic kidney disease Care Plan Patient has chronic kidney disease No Jenn Coburn PharmD Weekly blood pressure task Care Plan Weekly blood pressure task No Loyda Banda RN Weekly blood pressure task Care Plan Weekly blood pressure task No Loyda Banda RN Patient has chronic kidney disease Care Plan Patient has chronic kidney disease No Loyda Banda RN Patient has chronic kidney disease Care Plan Patient has chronic kidney disease No Loyda Banda RN Weekly blood pressure task Care Plan Weekly blood pressure task No Coretta [place] MA Weekly blood pressure task Care Plan Weekly blood pressure task No Coretta [place] Patient has chronic kidney disease Care Plan Patient has chronic kidney disease No Coretta [place] Patient has chronic kidney disease Care Plan Patient has chronic kidney disease No Coretta [place] MA Weekly blood pressure task Care Plan Weekly blood pressure task No Coretta [place] MA Weekly blood pressure task Care Plan Weekly blood pressure task No Coretta [place] MA Patient has chronic kidney disease Care Plan Patient has chronic kidney disease No Coretta [place] Patient has chronic kidney disease Care Plan Patient has chronic kidney disease No Coretta [place] MA Weekly blood pressure task Care Plan Weekly blood pressure task No Antionette Sanders Weekly blood pressure task Care Plan Weekly blood pressure task No Antionette Sanders Patient has chronic kidney disease Care Plan Patient has chronic kidney disease No Antionette Sanders Patient has chronic kidney disease Care Plan Patient has chronic kidney disease No Antionette Sanders Weekly blood pressure task Care Plan Weekly blood pressure task No Vaughn Dacosta Weekly blood pressure task Care Plan Weekly blood pressure task No Vaughn Dacosta Patient has chronic kidney disease Care Plan Patient has chronic kidney disease No Vaughn Dacosta Patient has chronic kidney disease Care Plan Patient has chronic kidney disease No Vaughn Dacosta documented as of this encounter Procedures Procedure Name Priority Date/Time Associated Diagnosis Comments ALBUMIN, RANDOM URINE W/CREATININE Routine 10/17/2025 10:24 AM EST Type 2 diabetes mellitus without complication, without long-term current use of insulin (HCC) CBC WITH AUTO DIFFERENTIAL Routine 10/17/2025 10:24 AM EST Unintentional weight loss POCT GLUCOSE Routine 10/17/2025 9:51 AM EST Type 2 diabetes mellitus without complication, without long-term current use of insulin (HCC) POCT GLYCOSYLATED HEMOGLOBIN (HGB A1C) Routine 10/17/2025 9:50 AM EST Type 2 diabetes mellitus without complication, without long-term current use of insulin (HCC) documented in this encounter Results * (ABNORMAL) CBC auto differential (10/17/2025 10:24 AM EST) White Blood Count 6.8 4.8 - 10.8 X10*3/uL [facility] Red Blood Count 3.90(L) 4.60 - 5.80 X10*6/uL [facility] Hemoglobin 9.6(L) 14.0 - 18.0 g/dl [facility] Hematocrit 32.2(L) 42.0 - 52.0 % [facility] Mean Corpuscular Volume 82.6 80.0 - 98.0 fL [facility] Mean Corpuscular Hemoglobin 24.6(L) 27.0 - 33.0 pg [facility] Mean Corpuscular HGB Conc 29.8(L) 31.0 - 36.0 g/dl [facility] Red Cell Distribution Width 22.6(H) 11.0 - 16.0 % [facility] Platelet Count 161 160 - 400 X10*3/uL [facility] Mean Platelet Volume 9.6 9.4 - 12.4 fL [facility] Neutrophils Percent Auto 75.9(H) 45 - 73 % [facility] Imm Gran Pct Auto 0.7(H) 0.0 - 0.4 % [facility] Lymphocytes Percent Auto 15.3(L) 20 - 40 % [facility] Monocytes Percent Auto 6.0 2 - 11 % [facility] Eosinophils Percent Auto 1.8 0 - 4 % [facility] Basophils Percent Auto 0.3 0 - 2 % [facility] NRBC Pct Auto 0.0 0.0 - 0.2 /100WBC [facility] Neutrophils Absolute Auto 5.2 2.0 - 8.3 x10*3/uL [facility] Imm Gran Abs Auto 0.05(H) 0.00 - 0.03 X10*3/uL [facility] Lymphocytes Absolute Auto 1.0(L) 1.2 - 4.9 X10*3/uL [facility] Monocytes Absolute Auto 0.4 0.1 - 1.2 X10*3/uL [facility] Eosinophils Absolute Auto 0.1 0.0 - 0.4 X10*3/uL [facility] Basophils Absolute Auto 0.0 0.0 - 0.2 X10*3/uL [facility] NRBC Abs Auto 0.000 0.0 - 0.012 X10*3/uL [facility] Blood Venous blood specimen / Unknown 10/17/2025 10:24 AM EST 10/17/2025 11:28 AM EST us Daisha Crane MD LAB BLOOD ORDERABLES Final Result Performing Organization Address City/State/[facility] Co de Phone Number [facility] [address] [place] [phone] * (ABNORMAL) Albumin, Random Urine W/Creatinine (10/17/2025 10:24 AM EST) Creatinine, Urine 107.35 mg/dL [facility] Microalbumin Urine 48.0 mg/L H [facility] Microalbum Creatinine Ratio Ur 44.7(H) <30 ug/mg cr [facility] Comment:Albumin/Creatinine R atio Reference Ranges: Normal: < 30 ug/mg creatinine Microalbuminuria: 30 - 300 ug/mg creatinineClinical Albuminuria: > 300 ug/mg creatinine Urine 10/17/2025 10:2 4 AM EST 10/17/2025 11:11 AM EST us Daisha Crane MD LAB URINE ORDERABLES Final Result [facility] [address] [place] [address] [phone] * POCT glucose manually resulted (10/17/2025 9:51 AM EST) Glucose Blood, POC 154 60 - 200 mg/dL QC Media Lot # [id number] Lot# Expiration Date ,026 Blood Capillary blood specimen / Unknown 10/17/2025 9:51 AM EST Daisha Crane MD POINT OF CARE TEST ENTER/E DIT ORDERABLES Final Result * (ABNORMAL) POCT glycosylated hemoglobin (Hgb A1c) (10/17/2025 9:50 AM EST) Hemoglobin A1C 6.1(A) 4.0 - 5.7 % QC Media Lot # [id number] Lot# Expiration Date 6,027 Blood Capillary blood specimen / Unknown 10/17/2025 9:50 AM EST Daisha Crane MD POINT OF CARE TEST ENTER/E DIT ORDERABLES Final Result documented in this encounter Visit Diagnoses Diagnosis Unintentional weight loss- Primary Loss of weight Type 2 diabetes mellitus without complication, without long-term current use of insulin (HCC) Hypertension, unspecified type 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) Tobacco dependence Tobacco use disorder Chronic obstructive pulmonary disease with emphysema, unspecified emphysema type (HCC) Dyslipidemia Other and unspecified hyperlipidemia Anemia, unspecified type Ascending aorta dilation (CMS/HCC) Thoracic aneurysm without mention of rupture Other specified health status Encounter for immunization History of prostate cancer Personal history of malignant neoplasm of prostate Tubular adenoma of colon Benign neoplasm of colon documented in this encounter Additional Health Concerns Active Problems Noted Date Diagnosed Date Help patients manage their type 2 diabetes 09/24 Weekly blood pressure task 09/24/2025 Help patients manage their type 2 diabetes 09/24 Patient has chronic kidney disease 09/24/2025 Weekly blood pressure task 09/24/2025 Patient has chronic kidney disease 09/24/2025 Weekly blood pressure task 09/24/2025 Weekly blood pressure task 09/24/2025 Patient has chronic kidney disease 09/24/2025 Patient has chronic kidney disease 09/24/2025 Weekly blood pressure task 10/01/2025 Weekly blood pressure task 10/01/2025 Patient has chronic kidney disease 10/01/2025 Patient has chronic kidney disease 10/01/2025 Weekly blood pressure task 10/08/2025 Weekly blood pressure task 10/08/2025 Patient has chronic kidney disease 10/08/2025 Patient has chronic kidney disease 10/08/2025 Weekly blood pressure task 10/16/2025 Weekly blood pressure task 10/16/2025 Patient has chronic kidney disease 10/16/2025 Patient has chronic kidney disease 10/16/2025 Weekly blood pressure task 10/16/2025 Weekly blood pressure task 10/16/2025 Patient has chronic kidney disease 10/16/2025 Patient has chronic kidney disease 10/16/2025 Weekly blood pressure task 10/17/2025 Weekly blood pressure task 10/17/2025 Patient has chronic kidney disease 10/17/2025 Patient has chronic kidney disease 10/17/2025 Weekly blood pressure task 10/17/2025 Weekly blood pressure task 10/17/2025 Patient has chronic kidney disease 10/17/2025 Patient has chronic kidney disease 10/17/2025 Assessment Noted Time PHQ-9 Depression Total Score: 7 03/07/20 25 10:43 AM EDT documented as of this encounter Care Teams Shirt Folder Relationship Specialty Start Date End Date Daisha Crane MD [address] [place] [address] PCP - General Family Medicine 11/01/18 Alissa Santillan MD [address] [place] [address] Rheumatology 11/09/24 Sharon Guardado [address] 3rd [place] [address] Cardiology 11/13/24 Cedric Lujan MD [address] [place] [address] Orthopaedic Surgery 11/23/24 Rory Angeles MD [address] [place] [address] Pain Medicine 02/06/25 Jairon Crawford OD [facility] [address] [place] [address] Optometry 03/07/25 Laura Velarde MD Rheumatology 03/28/25 documented as of this encounter
[2025-10-17 11:31] LABS: MANUAL DIFF FLAG NO
[2025-10-17 11:39] LABS: Hematocrit 32.2 % (42.0-52.0); Hemoglobin 9.6 g/dl (14.0-18.0); Imm Gran Abs Auto 0.05 X10*3/uL (0.00-0.03); Imm Gran Pct Auto 0.7 % (0.0-0.4); Lymphocytes Absolute Auto 1.0 X10*3/uL (1.2-4.9); Mean Corpuscular HGB Conc 29.8 g/dl (31.0-36.0); Mean Corpuscular Hemoglobin 24.6 pg (27.0-33.0); Mean Corpuscular Volume 82.6 fL (80.0-98.0); NRBC Abs Auto 0.000 X10*3/uL (0.0-0.012); NRBC Pct Auto 0.0 /100WBC (0.0-0.2); Platelet Count 161 X10*3/uL (160-400); Red Blood Count 3.90 X10*6/uL (4.60-5.80); White Blood Count 6.8 X10*3/uL (4.8-10.8)
[2025-10-17 12:07] LABS: Microalbum/Creatinine Ratio Ur 44.7 ug/mg cr (<30)
--- OUTSIDE RECORDS SUMMARY | 2025-10-17 12:37 | XMS_ITS | Encounter Summary ---
Author Organization [employer] Address [address] [place] [address] 7t [place] [address] Care Team Providers Care Hair Clipper Power Name Role Phone Daisha Crane MD Primary Care Provider [phone]- [phone] Lisa Liao PharmD Unavailable Alissa Santillan MD Unavailable Sharon Guardado Unavailable Cedric Lujan MD Unavailable Rory Angeles MD Unavailable Jairno Crawford OD Unavailable Reason for Visit * Reason Comments Med Refill Encounter Details Date Type Department Care Team (Late st Contact Info) Description 07/21/2023 Refill [facility] [address] [place], [place] [phone] Daisha Crane MD [address] [place], [place] [phone] Pulmonary emphysema, unspecified emphysema type (CMS/HCC) (Primary [...] Description 12/26/2025 9:30 AM EST Office Visit [facility] [address] [place] [address] Daisha Crane MD [address] [place] [address] 01/07/2026 1:30 PM EDT Telemedicine [facility] [address] [place] [address] Loyda Banda RN 505 [place] [address] documented as of this encounter Goals Goal Patient Goal Type Associated Problems Recent Progress Patient-Stated? Author Blood Pressure < 140/90 Blood Pressure 100/62(2024 9:38 AM EST) No Lisa Anguiano, PharmD Hemoglobin A1c < 8 Result Component 6.1( 9:50 AM EST) No Lisa Anguiano, PharmD documented as of this encounter Visit Diagnoses Diagnosis Pulmonary emphysema, unspecified emphysema type- Primary documented in this encounter Additional Health Concerns Assessment Noted Time PHQ-9 Depression Total Score: 0 11/23/19 23 10:39 AM EST documented as of this encounter Care Teams Hair Clipper Power Relationship Specialty Start Date End Date Daisha Crane MD [address] [place] [address] PCP - General Family Medicine 11/01/18 Lisa Liao, PharmD [address] [place] [address] Pharmacist Internal Medicine 04/06/23 02/02/25 Alissa Santillan MD [address] [place] [address] Rheumatology 11/09/24 Sharon Guardado [address] 3rd [place] [address] Cardiology 11/13/24 Cedric Lujan MD [address] [place] [address] Orthopaedic Surgery 11/23/24 Rory Angeles MD [address] [place] [address] Pain Medicine 02/06/25 Jairon Crawford OD [facility] [address] [place] [address] Optometry 03/07/25 Laura Velarde MD Rheumatology 03/28/25 documented as of this encounter
--- OUTSIDE RECORDS SUMMARY | 2025-10-17 12:37 | XMS_ITS | Encounter Summary ---
Author Organization [employer] Address [address] [facility] 7t [place] [address] Care Team Providers Care Asset Management Lead Name Role Phone Daisha Crane MD Primary Care Provider [phone]- [phone] Lisa Liao PharmD Unavailable Alissa Santillan MD Unavailable Sharon Guardado Unavailable Cedric Lujan MD Unavailable Rory Angeles MD Unavailable Jairon Crawford OD Unavailable Reason for Visit * Reason Onset Date Comments Med Refill 06/05/2024 Encounter Details Date Type Department Care Team (Late st Contact Info) Description 06/05/2024 Telephone [facility] [address] [place], [place] [phone] Daisha Crane MD [address] [place], [place] [phone] Med Refill Social History Tobacco Use Types [...] immediate release tablet To be sent to: [facility] - [place], [place] - [address] [place] [address] documented in this encounter Plan of Treatment Upcoming Encounters Date Type Department Care Team (Late st Contact Info) Description 12/26/2025 9:30 AM EST Office Visit [facility] [address] [place] [address] Daisha Crane MD 230 [place] [address] 01/07/2026 1:30 PM EDT Telemedicine [facility] [address] [place] [address] Loyda Banda RN 505 [place] [address] documented as of this encounter Goals Goal Patient Goal Type Associated Problems Recent Progress Patient-Stated? Author Blood Pressure < 140/90 Blood Pressure 100/62(2024 9:38 AM EST) No Lisa Anguiano PharmD Hemoglobin A1c < 8 Result Component 6.1( 9:50 AM EST) No Lisa Anguiano PharmD documented as of this encounter Visit Diagnoses Not on filedocumented in this encounter Additional Health Concerns Assessment Noted Time PHQ-9 Depression Total Score: 0 04/06/20 24 9:11 AM EDT documented as of this encounter Care Teams Asset Management Lead Relationship Specialty Start Date End Date Daisha Crane MD 230 [place] [address] PCP - General Family Medicine 11/01/18 Lisa Liao PharmD [address] [place] [address] Pharmacist Internal Medicine 04/06/23 02/02/25 Alissa Santillan MD [address] [place] [address] Rheumatology 11/09/24 Sharon Guardado [address] 3rd [place] [address] Cardiology 11/13/24 Cedric Lujan MD [address] [place] [address] Orthopaedic Surgery 11/23/24 Rory Angeles MD [address] [place] [address] Pain Medicine 02/06/25 Jairon Crawford OD [facility] [address] [place] [address] Optometry 5/7/25 Laura Velarde MD Rheumatology 03/28/25 documented as of this encounter
--- OUTSIDE RECORDS SUMMARY | 2025-10-17 12:37 | XMS_ITS | Encounter Summary ---
Author Organization [employer] Address [address] [place] [address] 7t [place] [address] Care Team Providers Care Make Up Artist Name Role Phone Daisha rCane MD Primary Care Provider [phone]- [phone] Lisa Liao PharmD Unavailable [phone] Alissa Santillan MD Unavailable Sharon Guardado Unavailable Cedric Lujan MD Unavailable Rory Angeles MD Unavailable Jairon Crawford OD Unavailable Reason for Visit * Reason Onset Date Comments Med Refill 07/07/2023 Encounter Details Date Type Department Care Team (Late st Contact Info) Description 07/07/2023 Telephone [facility] [address] [place], [place] [phone] Daisha Crane MD [address] [place], [place] [phone] Med Refill Social History Tobacco Use Types [...] MG immediate release tablet Please sent to [facility] - [place], [place] - [address] [place] [address] documented in this encounter Plan of Treatment Upcoming Encounters Date Type Department Care Team (Late st Contact Info) Description 12/26/2025 9:30 AM EST Office Visit [facility] [address] [place] [address] Daisha Crane MD 230 [place] [address] 01/07/2026 1:30 PM EDT Telemedicine [facility] 505 [place] [address] Loyda Banda, RN 505 [place] [address] documented as of this encounter Goals Goal Patient Goal Type Associated Problems Recent Progress Patient-Stated? Author Blood Pressure < 140/90 Blood Pressure 100/62(2024 9:38 AM EST) No Piers-Gambroxana e, Lisa, PharmD Hemoglobin A1c < 8 Result Component 6.1( 9:50 AM EST) No Daveys-Gambl e, Lisa, PharmD documented as of this encounter Visit Diagnoses Not on filedocumented in this encounter Additional Health Concerns Assessment Noted Time PHQ-9 Depression Total Score: 0 11/23/19 23 10:39 AM EST documented as of this encounter Care Teams Make Up Artist Relationship Specialty Start Date End Date Daisha Crane MD 230 [place] [address] PCP - General Family Medicine 11/01/18 Lisa Liao, PharmD [address] [place] [address] Pharmacist Internal Medicine 04/06/23 02/02/25 Alissa Santillan MD [address] [place] [address] Rheumatology 11/09/24 Sharon Guardado [address] 3rd [place] [address] Cardiology 11/13/24 Cedric Lujan MD [address] [place] [address] Orthopaedic Surgery 11/23/24 Rory Angeles MD [address] [place] [address] Pain Medicine 02/06/25 Jairon Crawford OD [facility] [address] [place] [address] Optometry 03/07/25 Laura Velarde MD Rheumatology 03/28/25 documented as of this encounter
--- OUTSIDE RECORDS SUMMARY | 2025-10-17 12:37 | XMS_ITS | Encounter Summary ---
Author Organization [employer] Address [address] [facility] 7t [place] [address] Care Team Providers Care Food Sales Clerk Name Role Phone Daisha Crane MD Primary Care Provider [phone]- [phone] Lisa Liao PharmD Unavailable [phone] Alissa Santillan MD Unavailable Sharon Guardado Unavailable Cedric Lujan MD Unavailable Rory Angeles MD Unavailable Jairon Crawford OD Unavailable Reason for Visit * Reason Comments Med Refill Encounter Details Date Type Department Care Team (Late st Contact Info) Description 11/21/2024 Refill [facility] [address] [place], [place] [phone] Cara Whitfield MD [address] [place], [place] [phone] Pain Social History Tobacco Use Types Packs/Day [...] Description 12/26/2025 9:30 AM EST Office Visit [facility] 230 [place] [address] Daisha Crane MD [address] [place] [address] 01/07/2026 1:30 PM EDT Telemedicine [facility] 505 [place] [address] Loyda Banda RN 505 [place] [address] documented as of this encounter Goals Goal Patient Goal Type Associated Problems Recent Progress Patient-Stated? Author Blood Pressure < 140/90 Blood Pressure 100/62(2024 9:38 AM EST) No Daveys-GambIdalmis krusesa, PharmD Hemoglobin A1c < 8 Result Component 6.1( 9:50 AM EST) No Daveys-GambLisa kruse, PharmD documented as of this encounter Visit Diagnoses Diagnosis Pain Generalized pain documented in this encounter Additional Health Concerns Assessment Noted Time PHQ-9 Depression Total Score: 0 04/06/20 24 9:11 AM EDT documented as of this encounter Care Teams Food Sales Clerk Relationship Specialty Start Date End Date Daisha Crane MD [address] [place] [address] PCP - General Family Medicine 11/01/18 Lisa Liao, GenevaD [address] [place] [address] Pharmacist Internal Medicine 04/06/23 02/02/25 Alissa Santillan MD [address] [place] [address] Rheumatology 11/09/24 Sharon Guardado [address] 3rd [place] [address] Cardiology 11/13/24 Cedric Lujan MD [address] [place] [address] Orthopaedic Surgery 11/23/24 Rory Angeles MD [address] [place] [address] Pain Medicine 02/06/25 Jairon Crawford OD [facility] [address] [place] [address] Optometry 03/07/25 Laura Velarde MD Rheumatology 03/28/25 documented as of this encounter
--- OUTSIDE RECORDS SUMMARY | 2025-10-17 12:37 | XMS_ITS | Encounter Summary ---
Author Organization [employer] Address [address] [facility] 7t [place] [address] Care Team Providers Care Tobacco Drummer Name Role Phone Daisha Crane MD Primary Care Provider [phone]- [phone] Lisa Liao PharmD Unavailable Alissa Santillan MD Unavailable Sharon Guardado Unavailable Cedric Lujan MD Unavailable Rory Angeles MD Unavailable Jairon Crawford OD Unavailable Reason for Visit * Reason Onset Date Comments Med Refill 07/04/2024 Encounter Details Date Type Department Care Team (Late st Contact Info) Description 07/04/2024 Telephone [facility] [address] [place], [place] [phone] Daisha Crane MD [address] [place], [place] [phone] Med Refill Social History Tobacco Use Types [...] immediate release tablet To be sent to: [facility] - [place], [place] - [address] [place] [address] documented in this encounter Plan of Treatment Upcoming Encounters Date Type Department Care Team (Late st Contact Info) Description 12/26/2025 9:30 AM EST Office Visit [facility] [address] [place] [address] Daisha Crane MD [address] [place] [address] 01/07/2026 1:30 PM EDT Telemedicine [facility] [address] [place] [address] Loyda Banda RN 505 [place] [address] documented as of this encounter Goals Goal [...] documented as of this encounter Care Teams Tobacco Drummer Relationship Specialty Start Date End Date Daisha Crane MD 230 [place] [address] PCP - General Family Medicine 11/01/18 Lisa Liao PharmD [address] [place] [address] Pharmacist Internal Medicine 04/06/23 02/02/25 Alissa Santillan MD [address] [place] [address] Rheumatology 11/09/24 Sharon Guardado [address] 3rd [place] [address] Cardiology 11/13/24 Cedric Lujan MD [address] [place] [address] Orthopaedic Surgery 11/23/24 Rory Angeles MD [address] [place] [address] Pain Medicine 02/06/25 Jairon Crawford OD [facility] [address] [place] [address] Optometry 5/7/25 Laura Velarde MD Rheumatology 03/28/25 documented as of this encounter
--- OUTSIDE RECORDS SUMMARY | 2025-10-17 12:38 | XMS_ITS | Encounter Summary ---
Author Organization [employer] Address 75 [facility] 7t [place] [address] Care Team Providers Care Application Technician Name Role Phone Daisha Crane MD Primary Care Provider +1- [phone] Alissa Santillan MD Unavailable Sharon Guardado Unavailable Cedric Lujan MD Unavailable Rory Angeles MD Unavailable Jairon Crawford OD Unavailable Encounter Details Date Type Department Care Team (Late st Contact Info) Description 10/16/2025 Telephone [facility] [address] [place] [address] Coretta [place] Social History Tobacco Use Types Packs/Day Years [...] encounter Miscellaneous Notes * Telephone Encounter - Coretta [place] MA - 10/16/2025 10:31 AM EST Chart Prep Labs: done Images: done Referrals: not applicable Vaccines due: Covid and Flu Screenings: eye exam Overdue care gaps: SBIRT documented in this encounter Plan of Treatment Upcoming Encounters Date Type Department Care Team ([facility] st Contact Info) Description 12/26/2025 9:30 AM EST Office Visit [facility] [address] [place] [address] Daisha Crane MD [address] [place] [address] 01/07/2026 1:30 PM EDT Telemedicine [facility] [address] [place] [address] Loyda Banda, SO [address] [place] [address] documented as of this encounter Goals Goal Patient Goal Type Associated Problems Recent Progress Patient-Stated? Author Blood Pressure < 140/90 Blood Pressure 100/62(12/17/ 2025 9:38 AM EST) No Lisa Anguiano PharmD Hemoglobin A1c < 8 Result Component 6.1( 5 9:50 AM EST) No Lisa Anguiano PharmD Help patients manage their type 2 diabetes [...] chronic kidney disease No Coretta [place] documented as of this encounter Visit Diagnoses Not on filedocumented in this encounter Additional Health Concerns Active [...] 10/16/2025 Patient has chronic kidney disease 10/16/2025 Assessment Noted Time PHQ-9 Depression Total Score: 7 03/07/20 25 10:43 AM EDT documented as of this encounter Care Teams Application Technician Relationship Specialty Start Date End Date Daisha Crane MD [address] [place] [address] PCP - General Family Medicine 11/01/18 Alissa Santillan MD [address] [place] [address] [address] Rheumatology 11/09/24 Sharon Guardado [address] 3rd [place] [address] Cardiology 11/13/24 Cedric Lujan MD [address] [place] [address] Orthopaedic Surgery 11/23/24 Rory Angeles MD [address] [place] [address] Pain Medicine 02/06/25 Jairon Crawford OD [facility] [address] [place] [address] Optometry 03/07/25 Laura Velarde MD Rheumatology 03/28/25 documented as of this encounter
--- OUTSIDE RECORDS SUMMARY | 2025-10-17 12:38 | XMS_ITS | Encounter Summary ---
Author Organization [employer] Address 75 [facility] 7t [place] [address] Care Team Providers Care Crime Laboratory Analyst Name Role Phone Daisha Crane MD Primary Care Provider +1- [phone] Alissa Santillan MD Unavailable Sharon Guardado Unavailable Cedric Lujan MD Unavailable Rory Angeles MD Unavailable Jairon Crawford OD Unavailable Reason for Visit * Reason Onset Date Comments Med Refill 08/06/2025 Encounter Details Date Type Department Care Team (Late st Contact Info) Description 08/06/2025 Telephone [facility] [address] [place], [place] [phone] Daisha Crane MD 230 [place], [place] [phone] Med Refill Social History Tobacco Use Types [...] immediate release tablet To be sent to: [facility] - [place], [place] - [address] [place] [address] documented in this encounter Plan of Treatment Upcoming Encounters Date Type Department Care Team ([facility] st Contact Info) Description 12/26/2025 9:30 AM EST Office Visit [facility] [address] [place] [address] Daisha Crane MD [address] [place] [address] 01/07/2026 1:30 PM EDT Telemedicine [facility] 505 [place] [address] Loyda Banda, SO 505 [place] [address] documented as of this encounter Goals Goal [...] documented as of this encounter Care Teams Crime Laboratory Analyst Relationship Specialty Start Date End Date Daisha Crane MD [address] [place] [address] PCP - General Family Medicine 11/01/18 Alissa Santillan MD [address] [place] [address] Rheumatology 11/09/24 Sharon Guardado [address] 3rd [place] [address] Cardiology 11/13/24 Cedric Lujan MD [address] [place] [address] Orthopaedic Surgery 11/23/24 Rory Angeles MD [address] [place] [address] Pain Medicine 02/06/25 Jairon Crawford OD [facility] [address] [place] [address] Optometry 03/07/25 Laura Velarde MD Rheumatology 03/28/25 documented as of this encounter
--- OUTSIDE RECORDS SUMMARY | 2025-10-17 12:38 | XMS_ITS | Encounter Summary ---
Author Organization [employer] Address 75 [facility] 7t [place] [address] Care Team Providers Care Landscape Technician Name Role Phone Daisha Crane MD Primary Care Provider +1- [phone] Alissa Santillan MD Unavailable Sharon Guardado Unavailable Cedric Lujan MD Unavailable Rory Angeles MD Unavailable Jairon Crawford OD Unavailable Encounter Details Date Type Department Care Team (Latest Contact Info) Description 10/17/2025 Travel Social History Tobacco Use Types Packs/Day [...] Description 12/26/2025 9:30 AM EST Office Visit [facility] [address] [place] [address] Daisha Crane MD 230 [place] [address] 01/07/2026 1:30 PM EDT Telemedicine [facility] [address] [place] [address] Loyda Banda RN 505 [place] [address] documented as of this encounter Goals Goal Patient Goal Type Associated Problems Recent Progress Patient-Stated? Author Blood Pressure < 140/90 Blood Pressure 100/62(2024 9:38 AM EST) No Lisa Liao, PharmD Hemoglobin A1c < 8 Result Component 6.1( 9:50 AM EST) No Lisa Liao, PharmAj Help patients manage their type 2 diabetes Care Plan Help patients manage their type 2 diabetes Sky Sequeira Weekly blood pressure task Care Plan Weekly [...] Vaughn Dacosta documented as of this encounter Visit Diagnoses [...] documented as of this encounter Care Teams Landscape Technician Relationship Specialty Start Date End Date Daisha Crane MD [address] [place] [address] PCP - General Family Medicine 11/01/18 Alissa Santillan MD [address] [place] [address] Rheumatology 11/09/24 Sharon Guardado [address] 3rd [place] [address] Cardiology 11/13/24 Cedric Luajn MD [address] [place] [address] Orthopaedic Surgery 11/23/24 Rory Angeles MD [address] [place] [address] Pain Medicine 02/06/25 Jairon Crawford OD [facility] [address] [place] [address] Optometry 03/07/25 Laura Velarde MD Rheumatology 03/28/25 documented as of this encounter
--- OUTSIDE RECORDS SUMMARY | 2025-10-17 12:38 | XMS_ITS | Encounter Summary ---
Author Organization [employer] Address 75 [facility] 7t [place] [address] Care Team Providers Care Viscera Washer Name Role Phone Daisha Crane MD Primary Care Provider +1- [phone] Lisa Liao PharmD Unavailable Alissa Santillan MD Unavailable Sharon Guardado Unavailable Cedric Lujan MD Unavailable Rory Angeles MD Unavailable Jairon Crawford OD Unavailable Encounter Details Date Type Department Care Team (Late st Contact Info) Description 10/30/2024 Telephone [facility] [address] [place], [place] [phone] Daisha Crane MD [address] [place], [place] [phone] Social History Tobacco Use Types Packs/Day Years [...] the past 12 months, has t he [employer], gas, oil or water [employer] threatened to shut off services in your [...] Description 12/26/2025 9:30 AM EST Office Visit [facility] [address] [place] [address] Daisha Crane MD [address] [place] [address] 01/07/2026 1:30 PM EDT Telemedicine [facility] [address] [place] [address] Loyda Banda, SO 505 [place] [address] documented as of this encounter Goals Goal Patient Goal Type Associated Problems Recent Progress Patient-Stated? Author Blood Pressure < 140/90 Blood Pressure 100/62(2024 9:38 AM EST) No Piers-Gambl e, Lisa, PharmD Hemoglobin A1c < 8 Result Component 6.1( 9:50 AM EST) No Piers-Gambl eIdalmissa, PharmD documented as of this encounter Visit Diagnoses Not on filedocumented in this encounter Additional Health Concerns Assessment Noted Time PHQ-9 Depression Total Score: 0 06/06/20 24 9:11 AM EDT documented as of this encounter Care Teams Viscera Washer Relationship Specialty Start Date End Date Daisha Crane MD [address] [place] [address] PCP - General Family Medicine 11/01/18 Lisa Liao, GenevaD [address] [place] [address] Pharmacist Internal Medicine 04/06/23 02/02/25 Alissa Santillan MD [address] [place] [address] Rheumatology 11/09/24 Sharon Guardado [address]rd [place] [address] Cardiology 11/13/24 Cedric Lujan MD [address] [place] [address] Orthopaedic Surgery 11/23/24 Rory Angeles MD [address] [place] [address] Pain Medicine 02/06/25 Jairon Crawford OD [facility] [address] [place] [address] Optometry 03/07/25 Laura Velarde MD Rheumatology 03/28/25 documented as of this encounter
--- OUTSIDE RECORDS SUMMARY | 2025-10-17 12:38 | XMS_ITS | Encounter Summary ---
Author Organization [employer] Address 75 [facility] 7t [place] [address] Care Team Providers Care Building Construction Inspector Name Role Phone Daisha Crane MD Primary Care Provider +1- [phone] Alissa Santillan MD Unavailable Sharon Guardado Unavailable Cedric Lujan MD Unavailable Rory Angeles MD Unavailable Jairon Crawford OD Unavailable Reason for Visit * Reason Onset Date Comments Medication Question 09/24/2025 Encounter Details Date Type Department Care Team (Late st Contact Info) Description 09/24/2025 Telephone [facility] [address] [place], [place] [phone] Daisha Crane MD [address] [place], [place] [phone] Medication Question Social History Tobacco Use Types Packs/Day Years [...] * Telephone Encounter - Sky Willams - 09/24/2025 3:44 PM EST TC from pt requesting medication refill. Medications needing refill: oxyCODONE (Roxicodone) 5 MG immediate release tablet To be sent to: [facility] - [place], [place] - [address] [place] [address] documented in this encounter Plan of Treatment Upcoming Encounters Date Type Department Care Team ([facility] st Contact Info) Description 12/26/2025 9:30 AM EST Office Visit [facility] [address] [place] [address] Daisha Crane MD [address] [place] [address] 01/07/2026 1:30 PM EDT Telemedicine [facility] 505 [place] [address] Loyda BandaSO [address] [place] [address] documented as of this encounter Goals Goal Patient Goal Type Associated Problems Recent Progress Patient-Stated? Author Blood Pressure < 140/90 Blood Pressure 100/62(2024 9:38 AM EST) No Lisa Anguiano, PharmD Hemoglobin A1c < 8 Result Component 6.1( 9:50 AM EST) No Lisa Anguiano PharmAj Help patients manage their type 2 [...] chronic kidney disease No Loyda Banda RN documented as of this encounter Visit Diagnoses [...] 09/24/2025 Patient has chronic kidney disease 09/24/2025 Assessment Noted Time PHQ-9 Depression Total Score: 7 03/07/20 25 10:43 AM EDT documented as of this encounter Care Teams Building Construction Inspector Relationship Specialty Start Date End Date Daisha Crane MD [address] [place] [address] PCP - General Family Medicine 11/01/18 Alissa Santillan MD [address] [place] [address] Rheumatology 11/09/24 Sharon Guardado [address] 3rd [place] [address] Cardiology 11/13/24 Cedric Lujan MD [address] [place] [address] Orthopaedic Surgery 11/23/24 Rory Angeles MD [address] [place] [address] Pain Medicine 02/06/25 Jairon Crawford OD [facility] [address] [place] [address] Optometry 03/07/25 Laura Velarde MD Rheumatology 03/28/25 documented as of this encounter
--- OUTSIDE RECORDS SUMMARY | 2025-10-17 12:38 | XMS_ITS | Encounter Summary ---
Author Organization [employer] Address 75 [facility] 7t [place] [address] Care Team Providers Care Rn Placement Name Role Phone Daisha Crane MD Primary Care Provider +1- [phone] Alissa Santillan MD Unavailable Sharon Guardado Unavailable Cedric Lujan MD Unavailable Rory Angeles MD Unavailable Jairon Crawford OD Unavailable Reason for Visit * Reason Onset Date Comments DME 10/17/2025 Encounter Details Date Type Department Care Team (Late st Contact Info) Description 10/17/2025 Telephone [facility] [address] [place], [place] [phone] Daisha Crane MD 230 [place], [place] [phone] DME Social History Tobacco Use Types Packs/Day [...] encounter Miscellaneous Notes * Telephone Encounter - Vaughn Howard - 10/17/2025 10:58 AM EST Tc from pt Daughter requesting a DME order for bed pads and diapers One Size (Patient states the box does not specifies the size of the Diapers) Contact pt at [phone] documented in this encounter Plan of Treatment Upcoming Encounters Date Type Department Care Team (Late st Contact Info) Description 12/26/2025 9:30 AM EST Office Visit [facility] [address] [place] [address] Daisha Crane MD 230 [place] [address] 01/07/2026 1:30 PM EDT Telemedicine [facility] 505 [place], [place] [phone] Loyda Banda RN [address] [place] [address] documented as of this encounter Goals Goal Patient Goal Type Associated Problems Recent Progress Patient-Stated? Author Blood Pressure < 140/90 Blood Pressure 100/62(2024 9:38 AM EST) No Lisa Liao PharmD Hemoglobin A1c < 8 Result Component 6.1( 9:50 AM EST) No Lisa Liao PharmD Help patients manage their type 2 [...] documented as of this encounter Care Teams Rn Placement Relationship Specialty Start Date End Date Daisha Crane MD [address] [place] [address] PCP - General Family Medicine 11/01/18 Alissa Santillan MD [address] [place] [address] Rheumatology 11/09/24 Sharon Guardado [address] 3rd [place] [address] Cardiology 11/13/24 Cedric Lujan MD [address] [place] [address] Orthopaedic Surgery 11/23/24 Rory Angeles MD [address] [place] [address] Pain Medicine 02/06/25 Jairon Crawford OD [facility] [address] [place] [address] Optometry 03/07/25 Laura Velarde MD Rheumatology 03/28/25 documented as of this encounter
--- OUTSIDE RECORDS SUMMARY | 2025-10-17 12:38 | XMS_ITS | Clinical Summary ---
Author Organization [employer] Address [address] [facility] [address] [place] [address] Care Team Providers Care Pen Or Pencil Assembly Machine Operator Name Role Phone Daisha Crane MD Primary Care Provider [phone] Alissa Santillan MD Unavailable Sharon Guardado Unavailable [...] 2 diabetes mellitus without complication, unspecified whether bed bug exterminator insulin use TEST BLOOD SUGAR TWICE DAILY [...] CRUSH, DISSOLVE OR CHEW 180 tablet 3 5 10:39 AM EST 025 Active TRUEplus Lancets 33G miscIndications :Type 2 diabetes mellitus without complication, without long-term current use of insulin (HCC) USE DIRECTED TO TEST BLOOD SUGAR TWICE DAILY 100 each 11 5 10:39 AM EST 025 Active docusate sodium (Colace) 100 MG capsuleIndicati ons:Constipatio n, unspecified constipation type TAKE 1 CAPSULE BY MOUTH TWICE DAILY IN THE MORNING AND IN THE EVENING 180 capsule 1 025 Active senna (Senokot) 8.6 MG tabletIndicatio ns:Constipation , unspecified constipation type TAKE 2 TABLETS BY MOUTH EVERY DAY IN THE EVENING NEEDED FOR CONSTIPATION 180 tablet 1 025 Active Arnuity Ellipta 200 MCG/ACT inhalerIndicati ons:Chronic obstructive pulmonary disease, unspecified COPD type (CMS/HCC) ([facility]) INHALE 1 PUFF BY MOUTH EVERY DAY AT THE SAME TIME. RINSE MOUTH AFTER USING. 30 each 11 5 10:39 AM EST 025 Active melatonin 3 MG tabletIndicatio ns:Primary insomnia TAKE 1 TABLET BY MOUTH AT BEDTIME NEEDED FOR SLEEP 30 tablet 11 5 10:39 AM EST 025 Active Incruse Ellipta 62.5 MCG/ACT aerosol powderIndicatio ns:Simple chronic bronchitis (CMS/HCC) ([facility]) INHALE 1 PUFF BY MOUTH EVERY DAY AT THE SAME TIME RINSE MOUTH AFTER USING 30 each 5 5 10:39 AM EST 025 Active hydroCHLOROthia zide 12.5 MG tabletIndicatio ns:Hypertension , unspecified type TAKE 1 TABLET BY MOUTH EVERY MORNING 90 tablet 3 5 10:39 AM EST 025 Active oxyCODONE (Roxicodone) 5 MG immediate release tabletIndicatio ns:Pain Take 1 tablet (5 mg) by mouth every 8 (eight) hours if needed for severe pain. 56 tablet 5 10:42 AM EST 025 Active cholecalciferol (Vitamin D-3) 25 MCG tabletIndicatio ns:Vitamin D deficiency Take 1 tablet (25 mcg) by mouth in the morning. 90 tablet 5 10:39 AM EST 025 Active cholecalciferol (Vitamin D-3) 25 MCG tabletIndicatio ns:Vitamin D deficiency TAKE 1 TABLET BY MOUTH EVERY MORNING 90 tablet 025 2024 Discontinued(R eorder (will not [...] be different from the original. Enrolled in [facility] DM and HTN clinic with Lisa Liao, GenevaD, [facility] [employer] Hand Solderer: Denise, member services number [phone] Senior Backup Administrator Agency: [employer] Problem Noted Date Diagnosed Date Unintentional weight loss 10/17/2025 Overview (10/17/2025): BMI Readings from Last 3 Encounters: 10/17/25 23.82 kg/m 09/04/25 24.21 kg/m 03/07/25 25.50 kg/m Wt Readings from Last 3 Encounters: 10/17/25 [...] iron deficient anemia and unintentional weight loss -referred back for lung cancer screening 10/17/25 Assessment & Plan (10/17/2025 10:08 AM EST): BMI Readings from Last 3 Encounters: 10/17/25 23.82 kg/m 09/04/25 24.21 kg/m 03/07/25 25.50 kg/m Wt Readings from Last 3 Encounters: 10/17/25 [...] with Reflexes; Future Referral to Gastroenterology; Future Transaminitis 09/04/2024 Overview (03/07/2025): Lab Results Component Value Date TOTALBILIRUB 0.9 10/09/2024 AST 33 10/09/2024 ALT 33 10/09/2024 ALT 30 03/25/2021 ALP 48 10/09/2024 HEPCAB Nonreactive 11/11/2023 HEPAIGM Nonreactive 11/11/2023 HEPBSURFAB NONREACTIVE 11/11/2023 HEPBCOREAB Nonreactive 11/11/2023 HEPBSURFACAG Negative 11/11/2023 FERRITIN 18 (L) 10/09/2024 Assessment & Plan (09/04/2024 5:00 PM EST): -ordered labs 09/04/24 terminal system operator (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 Jones of rheumatology [...] shot -seen by Dr. Cedric Lujan 11/23/24 and note from 09/07/25 The patient will be referred to [facility] for a second opinion regarding shoulder replacement surgery per their request. Assessment & Plan (09/04/2024 4:57 PM EST): [...] with visit. He would like referral to [facility] , new referral placed 09/04/24 -[facility] 11/07/24 Assessment & Plan (09/04/2024 4:56 PM EST): -referral placed to Podiatry 04/06/[address] Daniels, he was not happy with with visit. He would like referral to [facility] , new referral placed 09/04/24 Assessment & Plan (04/06/2024 9:55 AM EDT): -referral placed to Podiatry 04/06/2024 Other specified health status 06/03/2023 Overview (10/17/2025): -next physical exam due after 10/17/26 -eye care facilitated by [facility] -dental home is [facility] [place]. -healthcare Proxy completed and filed 04/06/2024. Assessment & Plan (10/17/2025 10:08 AM EST): -next physical exam due after 10/17/26 -eye care facilitated by [facility] -dental home is [facility] in [place]. -healthcare Proxy completed and filed 04/06/2024. Assessment & Plan (09/04/2024 5:02 PM EST): -next physical exam due after 09/04/2025 -eye care facilitated by [facility] -dental home is [facility] [place]. -healthcare Proxy completed and filed 04/06/2024. Assessment & Plan (04/06/2024 9:51 AM EDT): -next physical exam due after 06/04/2024. -eye care facilitated by [facility]. -dental home is [facility] [place]. -healthcare Proxy completed and filed 04/06/2024. Assessment & Plan (06/04/2023 9:45 AM EDT): -next physical exam due after 06/04/2024. -eye care facilitated by [facility]. -dental home is [facility] [place]. 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 Seen 01/14/25. -Hx of dilated [...] thoracic aorta. Overall stable. Assessment & Plan (10/17/2025 10:08 AM EST): Followed by Sharon Guardado GAS TRANSFER OPERATOR-C for [facility]. Seen 01/14/25. -Hx of dilated [...] EST): Followed by Sharon Guardado NP-C for [facility]. Seen 05/30/24 -Hx of dilated [...] Overview (03/07/2025): -Followed by Sharon AREVALOC for [facility]. -Known hx of Bicuspid aortic valve without stenosis or regurgitation. Followed by echocardiograms. Last echo 08/25/2023 shows mild calcification of the aortic valve, no regurgitation or stenosis. Repeat echo ordered 2023. -Sharon Guaraddo NP-C for [facility] 11/2024 Prior notes indicate a [...] edema 04/06/2023 Overview (05/31/2024): Followed by Sharon AREVALOC for [facility] 05/30/24. History of leg edema [...] for September 2024. GERD (gastroesophageal reflux disease) terminal system operator systemic steroid user 04/06/2023 Osteoporosis 04/06/2023 Overview [...] World Health Organization criteria. Anemia 11/20/2022 Overview (10/16/2025): Lab Results Component Value Date FERRITIN 18 (L) 10/09/2024 FERRITIN 18 (L) 06/17/2023 HGB 9.4 (L) 07/04/2025 HGB 10.7 (L) 11/03/2024 HGB 13.6 03/25/2021 HEMATOCRIT 41.2 03/25/2021 Assessment & Plan (10/17/2025 10:08 AM EST): Orders: Referral to Gastroenterology; Future Assessment & Plan (09/04/2024 4:59 PM EST): [...] as pharmacomtherapy, [facility] smoking cessation group, and [facility] pharmacy smoking cessation clinic Discussed USPSTF recommends annual lung cancer screening with low dose CT in people who meet the following criteria: -ages 50 to 80 years. -have a 20 pack-year smoking history. -currently smoke cigarettes or quit within the past 15 years. -LDCT: Referring to program for cancer screening for lungs 04/06/2024, rereferred 09/04/24 Assessment & Plan (10/17/2025 10:08 AM EST): -Cigg/day: 7 -Age started: 15 -Total years smokin -Pack year history: 21 Encouraged smoking cessation resources such as pharmacomtherapy, [facility] smoking cessation group, and [facility] pharmacy smoking cessation clinic [...] as pharmacomtherapy, [facility] smoking cessation group, and [facility] pharmacy smoking cessation clinic [...] as pharmacomtherapy, [facility] smoking cessation group, and [facility] pharmacy smoking cessation clinic [...] 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 Dr. Shah note 03/27/25 - s/p steroid injection to right wrist - Decrease prednisone to 7.5mg daily - Methotrexate 25mg SC - Folic acid 1mg daily - Actemra 162mg SC - Hydroxychloroquine 300mg daily - RTC 3 months Assessment & Plan (10/17/2025 10:08 AM EST): Followed by rheumatology -Chest CTA 10/2022 showed no evidence of ILD -T-spot and Hepatitis panel -vl 11/2023,. Dr. Shah note 03/27/25 - s/p steroid injection to right wrist - Decrease prednisone to 7.5mg daily - Methotrexate 25mg SC - Folic acid 1mg daily - Actemra 162mg SC - Hydroxychloroquine 300mg daily - RTC 3 months Assessment & Plan (09/04/2024 5:00 PM EST): Seen by tower erector Dr. Minnie Santillan 05/23/24 -On Actemra 162 [...] Plan (04/06/2024 9:51 AM EDT): Followed by tower erector. Per note 11/18/23:On Actemra 162 mg every [...] the right ECU swelling does not improve Registered Pharmacist would like to restart hydroxychloroquine, will refer patient to Ophthalmology for a baseline hydroxychloroquine screening. If patient is cleared. Will start hydroxychloroquine Continue Rasuvo 25 mg weekly + Actemra every other week. Chest CTA 10/2022 showed no evidence of ILD T-spot and Hepatitis panel -ve 11/2023,. Labs before next visit in 3 months via rheumatology Seen by tower erector Dr. Minnie Santillan 02/23/24 -On Actemra 162 [...] Plan (06/04/2023 9:39 AM EDT): -Followed by tower erector Dr. Fisher. -Currently on prednisone 2 mg daily -med rec to make sure we have correct meds on file -Continue Oxycodone 5mg BID as needed for pain -Did not tolerate Methotrexate, then Leflunomide 20mg daily but then d/c due to rash Assessment & Plan (11/20/2022 10:23 AM EST): -Followed by tower erector Dr. Fisher. -Currently on prednisone 2 mg [...] dilatation measuring 4cm and ascending aorta 4.3cm -Welt Treater Nanette Leonard seen in April 2022. - Now followed by Sharon Guardado NP-C for [facility] -History of leg edema with higher dose amlodipine use. He did have improvement in his swelling when his amlodipine was reduced to 5 mg daily and then discontinued. -echo does show a normal EF, impaired relaxation. He is on hydrochlorothiazide. He is on prednisone which can contribute to some mild edema. -given compression stockings 05/30/24 -Sharon Guardado GAS TRANSFER OPERATOR-C for [facility] 11/2024 Hx of dilated ascending [...] dilatation measuring 4cm and ascending aorta 4.3cm Welt Treater Nanette Leonard seen in April 2022. Followed by Sharon LEWIS for [facility] 05/30/24. History of leg edema [...] dilatation measuring 4cm and ascending aorta 4.3cm Welt Treater Nanette Leonard seen in April 2022. Assessment [...] dilatation measuring 4cm and ascending aorta 4.3cm Welt Treater Nanette Leonard seen in April 2022. Assessment [...] dilatation measuring 4cm and ascending aorta 4.3cm Welt Treater Nanette Leonard seen in April 2022. Currently on Rasuvo 25mg weekly, Humeria. Prednisone 2mg daily. -decreased it to 1 mg daily. Type 2 diabetes mellitus wit hout complication, without long-term current use of insulin 10/13/2022 Overview (10/17/2025): Diabetes is controlled. Lab Results Component Value [...] 03/07/25 -Continue lifestyle modifications Assessment & Plan (10/17/2025 10:08 AM EST): Diabetes is controlled. Lab Results Component Value [...] (Hgb A1c) Albumin, Random Urine W/Creatinine; Future Assessment & Plan (03/07/2025 1:37 PM EDT): [...] 08/03/2013 Tubular adenoma of colon 08/03/2013 Overview (10/17/2025): Hx tubular adenoma on colonoscopies 02/03/13 and 01/[address] Rodríguez. Repeat Dec 21 2020, next due in 5 years, 12/2025 -referred back to GI due to worsening iron deficient anemia and unintentional weight loss 10/17/25 Assessment & Plan (10/17/2025 10:08 AM EST): Hx tubular adenoma on colonoscopies 02/03/13 and 01/[address] Rodríguez. Repeat Dec 21 2020, next due in 5 years, 12/2025 -referred back to GI due to worsening iron deficient anemia and unintentional weight loss 10/17/25 Assessment & Plan (04/06/2024 9:53 AM EDT): [...] modifications, especially smoking cessation Assessment & Plan (10/17/2025 10:08 AM EST): Amlodipine 5mg discontinued by CDTM 05/22/24 [...] cessation Chronic obstructive lung disease 05/05/2012 Overview (10/16/2025): - PFTS 2009 revealed moderate severe obstructive airway disorder with no significant change with bronchodilator therapy. -Chest CTA 10/2022 showed no evidence of ILD - Continue LAMA: Incruse Ellipta, ICS: Flovent and NAHEED: albuterol prn. - tobacco cessation encouraged Assessment & Plan (10/17/2025 10:08 AM EST): - PFTS 2009 revealed moderate severe obstructive airway disorder with no significant change with bronchodilator therapy. -Chest CTA 10/2022 showed no evidence of ILD - Continue LAMA: Incruse Ellipta, ICS: Flovent and NAHEED: albuterol prn. - tobacco cessation encouraged Assessment [...] - tobacco cessation encouraged Dyslipidemia 05/05/2012 Overview (10/16/2025): Lab Results Component Value Date CHOL 97 07/04/2025 CHOL 104 10/09/2024 CHOL 115 02/16/2024 TRIG 130 07/04/2025 TRIG 122 10/09/2024 TRIG 205 (H) 02/16/2024 HDL 35 (L) 07/04/2025 HDL 37 (L) 10/09/2024 HDL 41 02/16/2024 LDLCHOLCAL 36 07/04/2025 LDLCHOLCAL 43 10/09/2024 LDLCHOLCAL 33 02/16/2024 -continue lifestyle modification -Vascepa 2 grams twice daily started by CDTM 05/22/24 Assessment & Plan (10/17/2025 10:08 AM EST): Lab Results Component Value Date CHOL 97 [...] lifestyle modifications History of prostate cancer 05/05/2012 Assessment & Plan (10/17/2025 10:08 AM EST): Orders: PSA,Total; Future Resolved Problems Problem Noted Date Diagnosed Date [...] agreeable with plan to be transported to [facility] via ambulance . Case discussed with provider at [facility] ER Cutaneous skin tags 05/18/2023 03/30/20 24 [...] Encounters Date Type Department Care Team Description 10/17/2025 9:30 AM EST Office Visit [facility] [address] [place] [phone] Daisha Crane MD Unintentional weight loss (Primary Dx); Type 2 [...] of prostate cancer; Tubular adenoma of colon 10/17/2025 Telephone [facility] [address] [place] [phone] Daisha Crane MD DME 10/17/2025 Travel 10/16/2025 Telephone [facility] [address] [place] [phone] Coretta Houston MA 10/08/2025 2:30 PM EST Telemedicine [facility] [address] [place] [address] Loyda Banda RN half-way (current) use of opiate analgesic 10/08/2025 Travel 10/01/2025 Refill [facility] [address] [place] [phone] Daisha Crane MD Vitamin D deficiency 09/24/2025 Refill [facility] [address] [place] [address] Loyda Banda RN Pain 09/24/2025 Telephone [facility] [address] [place] [phone] Daisha Crane MD Medication Question 09/04/2025 9:00 AM EST Office Visit [facility] [address] [phone] Ruslan Salmon MD COPD exacerbation (CMS/HCC) (HCC) (Primary Dx) 09/04/2025 Travel 08/28/2025 Refill [facility] [address] [place] [address] Loyda Banda RN Pain 08/28/2025 Telephone [facility] [address] [place] [phone] Daisha Crane MD Med Refill 08/24/2025 Telephone [facility] [address] [place] [phone] Daisha Crane MD Gurjit Recalls 08/24/2025 Travel 08/06/2025 Refill [facility] [address] [place] [address] Loyda Banda RN Pain 08/06/2025 Telephone [facility] [address] [place] [phone] Daisha Crane MD Med Refill 07/20/2025 9:00 AM EDT Clinical Support [address] [address] Loyda Banda RN Chronic right shoulder pain (Primary Dx) 07/20/2025 Travel from Last 3 Months Immunizations Immunization Administration [...] Mass Index 23.82 10/17/2025 9:38 AM EST Plan of Treatment Upcoming Encounters Date Type Department Care Team (Late st Contact Info) Description 12/26/2025 9:30 AM EST Office Visit [facility] [address], [place] [phone] Daisha Crane MD [address] [place], [place] [phone] 01/07/2026 1:30 PM EDT Telemedicine [facility] [address] [place], [place] [phone] Loyda Banda, SO [address] [place], [place] [phone] Health Maintenance Due Date Last Done Comments Eye Exam 05/13/2025 05/13/2023, 05/01, 05/13/2023, Additional history exists COVID-19 Vaccine ( season) 2025 09/04/2024, 06/04/2023, 05/18/2022, Additional history exists Influenza Vaccine (#1) 2025 , 08/17/2023, 09/28/2022, Additional history exists Diabetes: Urine Protein Screening 09/15/2025 10/17/2025, 09/15/2024, 06/17/2023 Depression Screening 03/07/2026 03/07/2025, 03/07/20 25 Diabetes: Foot Exam 03/07/2026 03/07/2025, 03/07/2025, 03/07/2025, Additional history exists SDOH Screening 03/07/2026 03/07/2025 Diabetes: Hemoglobin A1C 04/17/2026 025, 03/07/2025, 09/04/2024, Additional history exists Lipid Panel 07/04/2026 07/04/2025, 07/2024, 02/16/2024, Additional history exists Alcohol/Substance Use Screening 10/17/2026 10/17/2025 Tobacco Screening 10/17/2026 10/17/2025 DTaP/Tdap/Td Vaccines (3 - Td or Tdap) [...] 100/62(2024 9:38 AM EST) No Lisa Liao, GenevaD Hemoglobin A1c < 8 Result Component 6.1( 5 9:50 AM EST) No Lisa Liao, Nidia [...] Plan Weekly blood pressure task No Vaughn aDcosta Patient has chronic kidney disease Care Plan Patient has chronic kidney disease No Vaughn Dacosta Patient has chronic kidney disease Care Plan Patient has chronic kidney disease No Vaughn Dacosta Procedures Procedure Name Priority Date/Time Associated Diagnosis Comments CBC WITH AUTO DIFFERENTIAL Routine 10/17/2025 10:24 AM EST Unintentional weight loss ALBUMIN, RANDOM URINE W/CREATININE Routine 10/17/2025 10:24 AM EST Type 2 diabetes mellitus without complication, without long-term current use of insulin (HCC) POCT GLUCOSE Routine 10/17/2025 9:51 AM EST Type 2 diabetes mellitus without complication, without long-term current use of insulin (HCC) POCT GLYCOSYLATED HEMOGLOBIN (HGB A1C) Routine 10/17/2025 9:50 AM EST Type 2 diabetes mellitus without complication, without long-term current use of insulin (HCC) POCT COVID-19 AG [place] ID NOW Routine 09/04/2025 9:33 AM EST COPD exacerbation (CMS/HCC) (HCC) POCT INFLUENZA A (ID NOW RAPID MOLECULAR) Routine 09/04/2025 9:33 AM EST COPD exacerbation (CMS/HCC) (HCC) POCT INFLUENZA B (ID NOW RAPID MOLECULAR) Routine 09/04/2025 9:33 AM EST COPD exacerbation (CMS/HCC) (HCC) POCT SAUNDRA-14 URINE DRUG SCREEN Routine 07/20/2025 9:46 AM EDT Chronic right shoulder pain LIPID PANEL, STANDARD Routine 07/04/2025 9:18 AM EDT HEPATITIS PANEL, GENERAL Routine 11/11/2023 10:39 AM EST HM COLONOSCOPY Routine 12/21/2020 from Last 3 Months or Most Recently Relevant to Health Maintenance Results * (ABNORMAL) Albumin, Random Urine W/Creatinine (10/17/2025 10:24 AM EST) Creatinine, Urine 107.35 mg/dL [facility] Microalbumin Urine 48.0 mg/L [facility] Microalbum Creatinine Ratio Ur 44.7(H) <30 ug/mg cr [facility] Comment:Albumin/Creatinine R atio Reference Ranges: Normal: < 30 ug/mg creatinine Microalbuminuria: 30 - 300 ug/mg creatinineClinical Albuminuria: > 300 ug/mg creatinine Urine 10/17/2025 10:2 4 AM EST 10/17/2025 11:11 AM EST us Daisha Crane MD LAB URINE ORDERABLES Final Result [facility] [address] [place] [phone] * (ABNORMAL) CBC auto differential (10/17/2025 10:24 AM EST) White Blood Count 6.8 4.8 - 10.8 X10*3/uL [facility] Red Blood Count 3.90(L) 4.60 - 5.80 X10*6/uL [facility] Hemoglobin 9.6(L) 14.0 - 18.0 g/dl [facility] Hematocrit 32.2(L) 42.0 - 52.0 % [facility] Mean Corpuscular Volume 82.6 80.0 - 98.0 fL [facility] Mean Corpuscular Hemoglobin 24.6(L) 27.0 - 33.0 pg [facility] Mean Corpuscular HGB Conc 29.8(L) 31.0 - 36.0 g/dl [facility] Red Cell Distribution Width 22.6(H) 11.0 - 16.0 % [facility] Platelet Count 161 160 - 400 X10*3/uL [facility] Mean Platelet Volume 9.6 9.4 - 12.4 fL [facility] Neutrophils Percent Auto 75.9(H) 45 - 73 % [facility] Imm Gran Pct Auto 0.7(H) 0.0 - 0.4 % [facility] Lymphocytes Percent Auto 15.3(L) 20 - 40 % [facility] Monocytes Percent Auto 6.0 2 - 11 % [facility] Eosinophils Percent Auto 1.8 0 - 4 % [facility] Basophils Percent Auto 0.3 0 - 2 % [facility] NRBC Pct Auto 0.0 0.0 - 0.2 /100WBC [facility] Neutrophils Absolute Auto 5.2 2.0 - 8.3 x10*3/uL [facility] Imm Gran Abs Auto 0.05(H) 0.00 - 0.03 X10*3/uL [facility] Lymphocytes Absolute Auto 1.0(L) 1.2 - 4.9 X10*3/uL [facility] Monocytes Absolute Auto 0.4 0.1 - 1.2 X10*3/uL [facility] Eosinophils Absolute Auto 0.1 0.0 - 0.4 X10*3/uL [facility] Basophils Absolute Auto 0.0 0.0 - 0.2 X10*3/uL [facility] NRBC Abs Auto 0.000 0.0 - 0.012 X10*3/uL [facility] Blood Venous blood specimen / Unknown 10/17/2025 10:24 AM EST 10/17/2025 11:28 AM EST us Daisha Crane MD LAB BLOOD ORDERABLES Final Result [facility] [address] [place] [address] [phone] * POCT glucose manually resulted (10/17/2025 9:51 AM EST) Glucose Blood, POC 154 60 - 200 mg/dL QC Media Lot # [id number] Lot# Expiration Date Blood Capillary blood specimen / Unknown 10/17/2025 9:51 AM EST Daisha Crane MD POINT OF CARE TEST ENTER/E DIT ORDERABLES Final Result * (ABNORMAL) POCT glycosylated hemoglobin (Hgb A1c) (10/17/2025 9:50 AM EST) Pathologist [facility] Hemoglobin A1C 6.1(A) 4.0 - 5.7 % QC Media Lot # [id number] Lot# Expiration Date Blood Capillary blood specimen / Unknown 10/17/2025 9:50 AM EST Daisha Crane MD POINT OF CARE TEST ENTER/E DIT ORDERABLES Final Result * Influenza B (ID NOW Rapid Molecular) (09/04/2025 9:33 AM EST) Pathologist [facility] Influenza B Negative Negative, Indeterminate [facility] Swab 09/04/2025 9:33 AM EST Ruslan Salmon MD POINT OF CARE TEST ENTER/EDIT OR DERABLES Final Result [facility] [address] [place] [phone] * Influenza A (ID NOW Rapid Molecular) (09/04/2025 9:33 AM EST) [facility] Influenza A Negative Negative, Indeterminate [facility] Swab 09/04/2025 9:33 AM EST Ruslan Salmon MD POINT OF CARE TEST ENTER/EDIT OR DERABLES Final Result [facility] [address] [place] [phone] * POCT COVID-19 Ag [place] ID NOW (09/04/2025 9:33 AM EST) Coronavirus Antigen PCR Negative Negative, Indeterminate, None Detected, Invalid, Specimen unsatisfactory for evaluation, Weakly Positive, 2+ Swab 09/04/2025 9:33 AM EST Ruslan Salmon MD POINT OF CARE TEST ENTER/EDIT OR DERABLES Final Result * (ABNORMAL) POCT SAUNDRA-14 Urine Drug Screen (07/20/2025 9:46 AM EDT) THC Negative Negative Cocaine Screen, Urine Negative [...] - 07/20/2025 9:46 AM EDT .UTOX cup Lot#[id number] Exp. 08/07/26 Internal Pass Control Daisha Crane MD POINT OF CARE TEST ENTER/E DIT ORDERABLES Final Result * (ABNORMAL) Lipid Panel, Standard (07/04/2025 9:18 AM EDT) Triglycerides 130 <150 mg/dL [facility] Comment:Desirable Triglyceri de: less than 150 mg/dLBorderline High Triglyceride 150-199 mg/dLHigh Triglyceride: 200-499 mg/dLVery High Triglyceride: greater than or equal to 5OO mg/dL Cholesterol 97 <200 mg/dL [facility] Comment:Desirable Cholestero l: less than 200 mg/dLBorderline High Cholesterol: 200-239 mg/dLHigh Cholesterol: greater than 239 mg/dL LDL Cholesterol Calculated 36 <100 mg/dL [facility] Comment:Desirable LDL: less than 100 mg/dLNear Optimal/Above Optimal LDL: 110- 129 mg/dLBorderline High LDL: 130-159 mg/dLHigh LDL: 160-189 mg/dLVery High LDL: greater than or equal to 190 mg/dL HDL Cholesterol 35(L) >40 mg/dL [facility] Comment:Desirable HDL: great er than 40 mg/dL Note: This HDL assay may give artificially low results in patients with liver disease. 07/04/2025 9:18 AM EDT 07/04/2025 9:18 AM EDT us Generic External Data Provider LAB BLOOD ORDERAB LES Final Result [facility] [address] [place] [phone] * Hepatitis Panel, General (11/11/2023 10:39 AM EST) Hepatitis A IgM Nonreactive Nonreactive [facility] Comment:IgM antibodies to WAGONER V not detected; does not exclude earlyacute or recovered HAV infection. ~Hepatitis B Surface Antibody NONREACTIVE Nonreactive [facility] Comment:Nonreactive: < 8.00 mIU/mL Hepatitis B Core Antibody Nonreactive Nonreactive [facility] Hepatitis C Antibody Nonreactive Nonreactive [facility] Comment:Antibodies to HCV no t detected; does not exclude early acuteHCV infection. Hepatitis B Surface Ag Negative Negative [facility] 11/11/2023 10:3 9 AM EST 11/11/2023 10:39 AM EST us Generic External Data Provider LAB BLOOD ORDERAB LES Final Result [facility] [address] [place], [place] [phone] * Hm Colonoscopy (12/21/2020) Colonoscopy tubular adenoma with Dr. Rodríguez Historical Provider HEALTH MAINTENANCE Final Result from Last 3 Months or Most Recently Relevant to Health Maintenance Additional Health Concerns Active Problems Noted Date [...] 10/17/2025 Patient has chronic kidney disease 10/17/2025 Insurance 72 [facility] PR [facility] HALFWAY OPTIONS (HMO D-SNP) [facility] Advance Directives Documents on File Type Date Recorded Patient Operations Developer Expl anation Advance Directives and Living Will 04/06/2024 Health Care Proxy 04/06/24 Care Teams Pen Or Pencil Assembly Machine Operator Relationship Specialty Start Date End Date Royce, MD Daisha [address] [place] [address] PCP - General Family Medicine 11/01/18 Alissa Santillan MD [address] [place] [address] Rheumatology 11/09/24 Sharon Guardado [address] 3rd [place] [address] Cardiology 11/13/24 Cedric Lujan MD [address] [place] [address] Orthopaedic Surgery 11/23/24 Rory Angeles MD [address] [place] [address] Pain Medicine 02/06/25 Jairon Crawford OD [facility] [address] [place] [address] Optometry 03/07/25 Laura Velarde MD Rheumatology 03/28/25
--- OUTSIDE RECORDS SUMMARY | 2025-10-17 12:39 | XMS_ITS | Encounter Summary ---
Author Organization [employer] Address 75 [facility] 7t [place] [address] Care Team Providers Care Display Director Name Role Phone Daisha Crane MD Primary Care Provider +1- [phone] Lisa Liao PharmD Unavailable Alissa Santillan MD Unavailable Sharon Guardado Unavailable Cedric Lujan MD Unavailable Rory Angeles MD Unavailable Jairon Crawford OD Unavailable Encounter Details Date Type Department Care Team (Late st Contact Info) Description 10/14/2022 [facility] Health Information Management [address] [place], [place] [phone] Daisha Crane MD [address] [place], [place] [phone] Social History Tobacco Use Types Packs/Day Years [...] Description 12/26/2025 9:30 AM EST Office Visit [facility] 230 [place], [place] [phone] Daisha Crane MD 230 [place] [address] 01/07/2026 1:30 PM EDT Telemedicine [facility] 505 [place] [address] Loyda Banda, RN 505 [place] [address] documented as of this encounter Visit Diagnoses Not on filedocumented in this encounter Care Teams Display Director Relationship Specialty Start Date End Date Daisha Crane MD [address] [place] [address] PCP - General Family Medicine 11/01/18 Lisa Liao, GenevaD [address] [place] [address] Pharmacist Internal Medicine 04/06/23 02/02/25 Alissa Santillan MD [address] [place] [address] Rheumatology 11/09/24 Sharon Guardado [address] 3rd [place] [address] Cardiology 11/13/24 Cedric Lujan MD [address] [place] [address] Orthopaedic Surgery 11/23/24 Rory Angeles MD [address] [place] [address] Pain Medicine 02/06/25 Jairon Crawford OD [facility] [address] [place] [address] Optometry 03/07/25 Laura Velarde MD Rheumatology 03/28/25 documented as of this encounter
--- OUTSIDE RECORDS SUMMARY | 2025-10-17 12:39 | XMS_ITS | Encounter Summary ---
Author Organization [employer] Address [address] [place] [address] 7t [place] [address] Care Team Providers Care Technical Account Manager Name Role Phone Daisha Crane MD Primary Care Provider +1- [phone] Lisa Liao PharmD Unavailable Alissa Santillan MD Unavailable Sharon Guardado Unavailable Cedric Lujan MD Unavailable Rory Angeles MD Unavailable Jairon Crawford OD Unavailable Encounter Details Date Type Department Care Team (Late st Contact Info) Description 10/28/2022 Telephone [facility] [address] [place] [address] [phone] Daisha Crane MD [address] [place] [address] [phone] Social History Tobacco Use Types Packs/Day Years [...] Description 12/26/2025 9:30 AM EST Office Visit [facility] [address] [place] [address] [phone] Daisha Crane MD 230 [place] [address] 01/07/2026 1:30 PM EDT Telemedicine [facility] 505 [place] [address] Loyda Banda, RN 505 [place] [address] documented as of this encounter Visit Diagnoses Not on filedocumented in this encounter Care Teams Technical Account Manager Relationship Specialty Start Date End Date Daisha Crane MD 230 [place] [address] PCP - General Family Medicine 11/01/18 Lisa Liao PharmD [address] [place] [address] Pharmacist Internal Medicine 04/06/23 02/02/25 Alissa Santillan MD [address] [place] [address] Rheumatology 11/09/24 Sharon Guardado [address] 3rd [place] [address] Cardiology 11/13/24 Cedric Lujan MD [address] [place] [address] Orthopaedic Surgery 11/23/24 Rory Angeles MD [address] [place] [address] Pain Medicine 02/06/25 Jairon Crawford OD [facility] [address] [place] [address] Optometry 03/07/25 Laura Velarde MD Rheumatology 03/28/25 documented as of this encounter
--- OUTSIDE RECORDS SUMMARY | 2025-10-17 12:39 | XMS_ITS | Encounter Summary ---
Author Organization [employer] Address [address] [place] [address] 7t [place] [address] Care Team Providers Care Volunteer Services Manager Name Role Phone Daisha Crane MD Primary Care Provider +1- [phone] Lisa Liao PharmD Unavailable Alissa Santillan MD Unavailable Sharon Guardado Unavailable Cedric Lujan MD Unavailable Rory Angeles MD Unavailable Jairon Crawford OD Unavailable Reason for Visit * Reason Onset Date Comments Med Refill 06/07/2023 Encounter Details Date Type Department Care Team (Late st Contact Info) Description 06/07/2023 Telephone [facility] MED[facility]INE 230 [place], [place] [phone] Hiram Palma MD 230 [place], [place] [phone] Med Refill Social History Tobacco Use Types [...] Telephone Encounter - Richa Mendozales Landin - 06/07/2023 9:38 AM EDT Tc from pt requesting med refill on oxyCODONE (Roxicodone) 5 MG immediate release tablet Please sent to [facility] - [place], [place] - [address] [place] [address] documented in this encounter Plan of Treatment Upcoming Encounters Date Type Department Care Team ([facility] st Contact Info) Description 12/26/2025 9:30 AM EST Office Visit [facility] MED[facility]INE [address] [place] [address] Daisha Crane MD [address] [place] [address] 01/07/2026 1:30 PM EDT Telemedicine [facility] 505 [place] [address] Loyda Banda, RN 505 [place] [address] documented as of this encounter Goals Goal Patient Goal Type Associated Problems Recent Progress Patient-Stated? Author Blood Pressure < 140/90 Blood Pressure 100/62( 025 9:38 AM EST) No Lisa Anguiano PharmD documented as of this encounter Visit Diagnoses Not on filedocumented in this encounter Additional Health Concerns Assessment Noted Time PHQ-9 Depression Total Score: 0 11/23/19 23 10:39 AM EST documented as of this encounter Care Teams Volunteer Services Manager Relationship Specialty Start Date End Date Daisha Crane MD [address] [place] [address] PCP - General Family Medicine 11/01/18 Lisa Liao, PharmD [address] [place] [address] Pharmacist Internal Medicine 04/06/23 02/02/25 Alissa Santillan MD [address] [place] [address] Rheumatology 11/09/24 Sharon Guardado [address] 3rd [place] [address] Cardiology 11/13/24 Cedric Lujan MD [address] [place] [address] Orthopaedic Surgery 11/23/24 Rory Angeles MD [address] [place] [address] Pain Medicine 02/06/25 Jairon Crawford OD [facility] [address] [place] [address] Optometry 03/07/25 Laura Velarde MD Rheumatology 03/28/25 documented as of this encounter
--- OUTSIDE RECORDS SUMMARY | 2025-10-17 12:39 | XMS_ITS | Encounter Summary ---
Author Organization [employer] Address [address] [place] [address] 7t [place] [address] Care Team Providers Care Maintenance Planner Name Role Phone Daisha Crane MD Primary Care Provider +- [phone] Lisa Liao PharmD Unavailable Alissa Santillan MD [...] Description 12/26/2025 9:30 AM EST Office Visit [facility] MED[facility] 230 [place], [place] [phone] Daisha Crane MD 230 [place], [place] [phone] 01/07/2026 1:30 PM EDT Telemedicine [facility]ED[facility] [address] [place] [address] Loyda Banda, RN [address] [place] [address] documented as of this encounter Visit Diagnoses Not on filedocumented in this encounter Care Teams Maintenance Planner Relationship Specialty Start Date End Date Daisha Crane MD 230 [place] [address] PCP - General Family Medicine 11/01/18 Lisa Liao, GenevaD 230 [place] [address] Pharmacist Internal Medicine 04/06/23 02/02/25 Alissa Santillan MD [address] [place] [address] Rheumatology 11/09/24 Sharon Guardado [address] 3rd [place] [address] Cardiology 11/13/24 Cedric Lujan MD [address] [place] [address] Orthopaedic Surgery 11/23/24 Rory Angeles MD [address] [place] [address] Pain Medicine 02/06/25 Jairon Crawford OD [facility] [address] [place] [address] Optometry 03/07/25 Laura Velarde MD Rheumatology 03/28/25 documented as of this encounter
--- OUTSIDE RECORDS SUMMARY | 2025-10-17 12:39 | XMS_ITS | Encounter Summary ---
Author Organization [employer] Address [address] [facility] 7t [place] [address] Care Team Providers Care Private Branch Exchange Service Advisor Name Role Phone Daisha Crane MD Primary Care Provider +1- [phone] Lisa Liao PharmD Unavailable Alissa Santillan MD Unavailable Sharon Guardado Unavailable Cedric Lujan MD Unavailable Rory Angeles MD Unavailable Jairon Crawford OD Unavailable Reason for Visit * Reason Comments Med Refill Encounter Details Date Type Department Care Team (Late st Contact Info) Description 02/06/2024 Refill [facility] MED[facility]INE 230 [place], [place] [phone] Lisa Liao, PharmD [address] [place], [place] [phone] Social History Tobacco Use Types Packs/Day Years [...] Description 12/26/2025 9:30 AM EST Office Visit [facility] MED[facility] 230 [place] [address] Daisha Crane MD [address] [place] [address] 01/07/2026 1:30 PM EDT Telemedicine [facility] 505 [place] [address] Loyda Banda RN 505 [place] [address] documented as of this encounter Goals Goal Patient Goal Type Associated Problems Recent Progress Patient-Stated? Author Blood Pressure < 140/90 Blood Pressure 100/62(2024 9:38 AM EST) Lisa Cadet PharmD Hemoglobin A1c < 8 Result Component 6.1( 5 9:50 AM EST) No Lisa Anguiano PharmD documented as of this encounter Visit Diagnoses Not on filedocumented in this encounter Additional Health Concerns Assessment Noted Time PHQ-9 Depression Total Score: 0 11/23/19 10:39 AM EST documented as of this encounter Care Teams Private Branch Exchange Service Advisor Relationship Specialty Start Date End Date Daisha Crane MD 230 [place] [address] PCP - General Family Medicine 11/01/18 Lisa Liao, Nidia [address] [place] [address] Pharmacist Internal Medicine 04/06/23 02/02/25 Alissa Santillan MD [address] [place] [address] Rheumatology 11/09/24 Sharon Guardado [address] 3rd [place] [address] Cardiology 11/13/24 Cedric Lujan MD [address] [place] [address] Orthopaedic Surgery 11/23/24 Rory Angeles MD [address] [place] [address] Pain Medicine 02/06/25 Jairon Crawford OD [facility] [address] [place] [address] Optometry 03/07/25 Laura Velarde MD Rheumatology 03/28/25 documented as of this encounter
--- OUTSIDE RECORDS SUMMARY | 2025-10-17 12:39 | XMS_ITS | Encounter Summary ---
Author Organization [employer] Address [address] [facility] 7t [place] [address] Care Team Providers Care Footwear Stitcher Name Role Phone Daisha Crane MD Primary Care Provider +1- [phone] Lisa Liao PharmD Unavailable Alissa Santillan MD Unavailable Sharon Guardado Unavailable Cedric Lujan MD Unavailable Rory Angeles MD Unavailable Jairon Crawford OD Unavailable Reason for Visit * Reason Comments Med Refill Encounter Details Date Type Department Care Team (Late st Contact Info) Description 02/07/2024 Refill [facility] 230 [place], [place] [phone] Tanika Arenas ANP 230 [place], [place] [phone] Dyslipidemia Social History Tobacco Use Types Packs/Day [...] 12/26/2025 9:30 AM EST Office Visit [facility] 230 [place] [address] Daisha Crane MD 230 [place] [address] 01/07/2026 1:30 PM EDT Telemedicine [facility] 505 [place] [address] Loyda Banda, SO 505 [place] [address] documented as of this encounter Goals Goal Patient Goal Type Associated Problems Recent Progress Patient-Stated? Author Blood Pressure < 140/90 Blood Pressure 100/62(2024 9:38 AM EST) No Piers-Gambl e, Lisa, PharmD Hemoglobin A1c < 8 Result Component 6.1( 9:50 AM EST) No Piers-Gambl e, Lisa, PharmD documented as of this encounter Visit Diagnoses Diagnosis Dyslipidemia Other and unspecified hyperlipidemia documented in this encounter Additional Health Concerns Assessment Noted Time PHQ-9 Depression Total Score: 0 11/23/19 10:39 AM EST documented as of this encounter Care Teams Footwear Stitcher Relationship Specialty Start Date End Date Daisha Crane MD [address] [place] [address] PCP - General Family Medicine 11/01/18 Lisa Liao PharmD 230 [place] [address] Pharmacist Internal Medicine 04/06/23 02/02/25 Alissa Santillan MD [address] [place] [address] Rheumatology 11/09/24 Sharon Guardado [address] 3rd [place] [address] Cardiology 11/13/24 Cedric Lujan MD [address] [place] [address] Orthopaedic Surgery 11/23/24 Rory Angeles MD [address] [place] [address] Pain Medicine 02/06/25 Jairon Crawford OD [facility] [address] [place] [address] Optometry 03/07/25 Laura Velarde MD Rheumatology 03/28/25 documented as of this encounter
--- OUTSIDE RECORDS SUMMARY | 2025-10-17 12:39 | XMS_ITS | Encounter Summary ---
Author Organization [employer] Address [address] [facility] 7t [place] [address] Care Team Providers Care Vegetable Tier Name Role Phone Daisha Crane MD Primary Care Provider +1- [phone] Lisa Liao PharmD Unavailable +[phone] Alissa Santillan MD Unavailable Sharon Guardado Unavailable Cedric Lujan MD Unavailable Rory Angeles MD Unavailable Jairon Crawford OD Unavailable Encounter Details Date Type Department Care Team (Late st Contact Info) Description 12/16/2022 Orders Only [facility] [address] [place], [place] [phone] Jenn Polk LPN Social History Tobacco Use [...] 9:30 AM EST Office Visit [facility] 230 [place] [address] Daisha Crane MD 230 [place] [address] 01/07/2026 1:30 PM EDT Telemedicine [facility] 505 [place] [address] Loyda Banda, SO 505 [place] [address] documented as of this encounter Visit Diagnoses Not on filedocumented in this encounter Additional Health Concerns Assessment Noted Time PHQ-9 Depression Total Score: 0 11/23/19 10:39 AM EST documented as of this encounter Care Teams Vegetable Tier Relationship Specialty Start Date End Date Daisha Crane MD 230 [place] [address] PCP - General Family Medicine 11/01/18 Lisa Liao, PharmD [address] [place] [address] Pharmacist Internal Medicine 04/06/23 02/02/25 Alissa Santillan MD [address] [place] [address] Rheumatology 11/09/24 Sharon Guardado [address] 3rd [place] [address] Cardiology 11/13/24 Cedric Lujan MD [address] [place] [address] Orthopaedic Surgery 11/23/24 Rory Angeles MD [address] [place] [address] Pain Medicine 02/06/25 Jairon Crawford, [facility] [address] [place] [address] Optometry 03/07/25 Laura Velarde MD Rheumatology 03/28/25 documented as of this encounter
--- OUTSIDE RECORDS SUMMARY | 2025-10-17 12:39 | XMS_ITS | Encounter Summary ---
Author Organization [employer] Address 75 [facility] 7t [place] [address] Care Team Providers Care [employer] Crew Boss Name Role Phone Daisha Crane MD Primary Care Provider +1- [phone] Alissa Santillan MD Unavailable Sharon Guardado Unavailable Cedric Lujan MD Unavailable Rory Angeles MD Unavailable Jairon Crawford OD Unavailable Reason for Visit * Reason Onset Date Comments Med Refill 03/23/2025 Encounter Details Date Type Department Care Team (Late st Contact Info) Description 03/23/2025 Telephone [facility] MED[facility] 230 [place], [place] [phone] Daisha Crane MD 230 [place], [place] [phone] Med Refill Social History Tobacco Use Types [...] immediate release tablet To be sent to: [facility] - [place], [place] - [address] [place] [address] documented in this encounter Plan of Treatment Upcoming Encounters Date Type Department Care Team (Late st Contact Info) Description 12/26/2025 9:30 AM EST Office Visit [facility] 230 [place] [address] Daisha Crane MD 230 [place] [address] 01/07/2026 1:30 PM EDT Telemedicine [facility] 505 [place] [address] Loyda Banda, SO [address] [place] [address] documented as of this encounter Goals Goal [...] documented as of this encounter Care Teams [employer] Crew Boss Relationship Specialty Start Date End Date Daisha Crane MD 230 [place] [address] PCP - General Family Medicine 11/01/18 Alissa Santillan MD [address] [place] [address] Rheumatology 11/09/24 Sharon Guardado [address] 3rd [place] [address] Cardiology 11/13/24 Cedric Lujan MD [address] [place] [address] Orthopaedic Surgery 11/23/24 Rory Angeles MD [address] [place] [address] Pain Medicine 02/06/25 Jairon Crawford OD [facility] [address] [place] [address] Optometry 03/07/25 Laura Velarde MD Rheumatology 03/28/25 documented as of this encounter
--- OUTSIDE RECORDS SUMMARY | 2025-10-17 12:39 | XMS_ITS | Encounter Summary ---
Author Organization [email or web address] Address [address] [place] [address] 7t [place] [address] Care Team Providers Care Screenplay Writer Name Role Phone Daisha Crane MD Primary Care Provider +1- [phone] Lisa Liao PharmD Unavailable Alissa Santillan MD Unavailable Sharon Guardado Unavailable Cedric Lujan MD Unavailable Rory Angeles MD Unavailable Jairon Crawford OD Unavailable Encounter Details Date Type Department Care Team (Late st Contact Info) Description 06/01/2023 Abstract [facility] MEDICINE 230 [place], [place] [phone] Daisha Crane MD 230 [place], [place] [phone] Social History Tobacco Use Types Packs/Day Years [...] Description 12/26/2025 9:30 AM EST Office Visit [facility] 230 [facility] [place] [address] Daisha Crane MD 230 [place] [address] 01/07/2026 1:30 PM EDT Telemedicine [facility] 505 [place], [place] [phone] Loyda Banda, SO 505 [place] [address] documented as of this encounter Goals Goal Patient Goal Type Associated Problems Recent Progress Patient-Stated? Author Blood Pressure < 140/90 Blood Pressure 100/62( 025 9:38 AM EST) No Lisa Anguiano, PharmD documented as of this encounter Visit Diagnoses Not on filedocumented in this encounter Additional Health Concerns Assessment Noted Time PHQ-9 Depression Total Score: 0 11/23/19 10:39 AM EST documented as of this encounter Care Teams Screenplay Writer Relationship Specialty Start Date End Date Daisha Crane MD 230 [place] [address] PCP - General Family Medicine 11/01/18 Lisa Liao, PharmD 230 [place] [address] Pharmacist Internal Medicine 04/06/23 02/02/25 Alissa Santillan MD [address] [place] [address] Rheumatology 11/09/24 Sharon Guardado [address] 3rd [place] [address] Cardiology 11/13/24 Cedric Lujan MD [address] [place] [address] Orthopaedic Surgery 11/23/24 Rory Angeles MD [address] [place] [address] Pain Medicine 02/06/25 Jairon Crawford OD [facility] [address] [place] [address] Optometry 03/07/25 Laura Velarde MD Rheumatology 03/28/25 documented as of this encounter
--- OUTSIDE RECORDS SUMMARY | 2025-10-17 12:39 | XMS_ITS | Encounter Summary ---
Author Organization [employer] Address 75 [facility] 7t [place] [address] Care Team Providers Care Plasma Processing Centrifuge Operator Name Role Phone Daisha Crane MD Primary Care Provider +1- [phone] Alissa Santillan MD Unavailable Sharon Guardado Unavailable Cedric Lujan MD Unavailable Rory Angeles MD Unavailable Jairon Crawford OD Unavailable Reason for Visit * Reason Comments Med Refill Encounter Details Date Type Department Care Team (Late st Contact Info) Description 05/15/2025 Refill [facility] [address] [place], [place] [phone] Daisha Crane MD 230 [place], [place] [phone] Pain Social History Tobacco Use Types Packs/Day [...] 9:30 AM EST Office Visit [facility] MEDICINE 230 [place] [address] Daisha Crane MD 230 [place] [address] 01/07/2026 1:30 PM EDT Telemedicine [facility] 505 [place] [address] Loyda Banda, SO 505 [place] [address] documented as of this encounter Goals Goal Patient Goal Type Associated Problems Recent Progress Patient-Stated? Author Blood Pressure < 140/90 Blood Pressure 100/62(2024 9:38 AM EST) No Daveys-Idalmis Donaldsonsa, PharmD Hemoglobin A1c < 8 Result Component 6.1( 9:50 AM EST) No Daveys-Gambl Lisa mg, PharmD documented as of this encounter Visit Diagnoses Diagnosis Pain Generalized pain documented in this encounter Additional Health Concerns Assessment Noted Time PHQ-9 Depression Total Score: 7 03/07/20 25 10:43 AM EDT documented as of this encounter Care Teams Plasma Processing Centrifuge Operator Relationship Specialty Start Date End Date Daisha Crane MD 230 [place] [address] PCP - General Family Medicine 11/01/18 Alissa Santillan MD [address] [place] [address] Rheumatology 11/09/24 Sharon Guardado [address] 3rd [place] [address] Cardiology 11/13/24 Cedric Lujan MD [address] [place] [address] Orthopaedic Surgery 11/23/24 Rory Angeles MD [address] [place] [address] Pain Medicine 02/06/25 Jairon Crawford OD [facility] [address] [place] [address] Optometry 03/07/25 Laura Velarde MD Rheumatology 03/28/25 documented as of this encounter
--- OUTSIDE RECORDS SUMMARY | 2025-10-17 12:39 | XMS_ITS | Encounter Summary ---
Author Organization [employer] Address 75 [facility] 7t [place] [address] Care Team Providers Care Load Out Supervisor Name Role Phone Daisha Crane MD Primary Care Provider +1- [phone] Lisa Liao PharmD Unavailable Alissa Santillan MD Unavailable Sharon Guardado Unavailable Cedric Lujan MD Unavailable Rory Angeles MD Unavailable Jairon Crawford OD Unavailable Encounter Details Date Type Department Care Team (Late st Contact Info) Description 11/18/2023 Telephone [facility] MEDICINE 230 [place], [place] [phone] Daisha Crane MD 230 [place], [place] [phone] Social History Tobacco Use Types Packs/Day Years [...] 9:30 AM EST Office Visit [facility] MEDICINE 230 [place] [address] Daisha Crane MD 230 [place] [address] 01/07/2026 1:30 PM EDT Telemedicine [facility] 505 [place] [address] Loyda Banda, RN 505 [place] [address] documented as of this encounter Goals Goal [...] documented as of this encounter Care Teams Load Out Supervisor Relationship Specialty Start Date End Date Daisha Crane MD 230 [place] [address] PCP - General Family Medicine 11/01/18 Lisa Liao, Nidia 230 [place] [address] Pharmacist Internal Medicine 04/06/23 02/02/25 Alissa Santillan MD [address] [place] [address] Rheumatology 11/09/24 Sharon Guardado [address] 3rd [place] [address] Cardiology 11/13/24 Cedric Lujan MD [address] [place] [address] Orthopaedic Surgery 11/23/24 Rory Angeles MD [address] [place] [address] Pain Medicine 02/06/25 Jairon Crawford OD [facility] [address] [place] [address] Optometry 03/07/25 Laura Velarde MD Rheumatology 03/28/25 documented as of this encounter
--- OUTSIDE RECORDS SUMMARY | 2025-10-17 12:39 | XMS_ITS | Encounter Summary ---
Author Organization [employer] Address [address] [place] [address] 7t [place] [address] Care Team Providers Care Tank Farm Attendant Name Role Phone Daisha Crane MD Primary Care Provider +1- [phone] Lisa Liao PharmD Unavailable Alissa Santillan MD Unavailable Sharon Guardado Unavailable Cedric Lujan MD Unavailable Rory Angeles MD Unavailable Jairon Crawford OD Unavailable Reason for Visit * Reason Onset Date Comments Med Refill 03/15/2023 Encounter Details Date Type Department Care Team (Late st Contact Info) Description 03/15/2023 Telephone [facility] MEDICINE 230 [place], [place] [phone] Daisha Crane MD 230 [place], [place] [phone] Med Refill Social History Tobacco Use Types [...] Description 12/26/2025 9:30 AM EST Office Visit [facility] MEDICINE 230 [place] [address] Daisha Crane MD 230 [place] [address] 01/07/2026 1:30 PM EDT Telemedicine [facility] MED & PEDS 505 [place] [address] Loyda Banda, RN 505 [place] [address] documented as of this encounter Visit Diagnoses Not on filedocumented in this encounter Additional Health Concerns Assessment Noted Time PHQ-9 Depression Total Score: 0 11/23/19 10:39 AM EST documented as of this encounter Care Teams Tank Farm Attendant Relationship Specialty Start Date End Date Daisha Crane MD [address] [place] [address] PCP - General Family Medicine 11/01/18 Lisa Liao, GenevaD [address] [place] [address] Pharmacist Internal Medicine 04/06/23 02/02/25 Alissa Santillan MD [address] [place] [address] Rheumatology 11/09/24 Sharon Guardado [address] 3rd [place] [address] Cardiology 11/13/24 Cedric Lujan MD [address] [place] [address] Orthopaedic Surgery 11/23/24 Rory Angeles MD [address] [place] [address] Pain Medicine 02/06/25 Jairon Crawford OD [facility] [address] [place] [address] Optometry 03/07/25 Laura Velarde MD Rheumatology 03/28/25 documented as of this encounter
--- OUTSIDE RECORDS SUMMARY | 2025-10-17 12:39 | XMS_ITS | Encounter Summary ---
Author Organization [employer] Address 75 [facility] 7t [place] [address] Care Team Providers Care Catering Sous Chef Name Role Phone Daisha Crane MD Primary Care Provider + [phone] Lisa Liao PharmD Unavailable Alissa Santillan MD Unavailable Sharon Guardado Unavailable Cedric Lujan MD Unavailable Rory Angeles MD Unavailable Jairon Crawford OD Unavailable Encounter Details Date Type Department Care Team (Late st Contact Info) Description 03/15/2023 Orders Only [facility] MED & PEDS [address] [place], [place] [phone] Jenn Polk LPN Social History Tobacco Use [...] Description 12/26/2025 9:30 AM EST Office Visit [facility] MEDICINE [address] [place] [address] aDisha Crane MD 230 [place] [address] 01/07/2026 1:30 PM EDT Telemedicine [facility] MED [facility] PEDS 505 [place] [address] Loyda Banda, RN 505 [place] [address] documented as of this encounter Visit Diagnoses Not on filedocumented in this encounter Additional Health Concerns Assessment Noted Time PHQ-9 Depression Total Score: 0 11/23/19 10:39 AM EST documented as of this encounter Care Teams Catering Sous Chef Relationship Specialty Start Date End Date Daisha Crane MD [address] [place] [address] PCP - General Family Medicine 11/01/18 Lisa Liao, GenevaD [address] [place] [address] Pharmacist Internal Medicine 04/06/23 02/02/25 Alissa Santillan MD [address] [place] [address] Rheumatology 11/09/24 Sharon Guardado [address] 3rd [place] [address] Cardiology 11/13/24 Cedric Lujan MD [address] [place] [address] Orthopaedic Surgery 11/23/24 Rory Angeles MD [address] [place] [address] Pain Medicine 02/06/25 Jairon Crawford OD [facility] [address] [place] [address] Optometry 03/07/25 Laura Velarde MD Rheumatology 03/28/25 documented as of this encounter
--- OUTSIDE RECORDS SUMMARY | 2025-10-17 12:39 | XMS_ITS | Encounter Summary ---
Author Organization [employer] Address 75 [facility] 7t [place] [address] Care Team Providers Care Manager Coding Name Role Phone Daisha Crane MD Primary Care Provider +1- [phone] Lisa Liao PharmD Unavailable Alissa Santillan MD Unavailable Sharon Guardado Unavailable Cedric Lujan MD Unavailable Rory Angeles MD Unavailable Jairon Crawford OD Unavailable Reason for Visit * Reason Comments Med Refill Encounter Details Date Type Department Care Team (Late st Contact Info) Description 08/31/2023 Refill [facility] MEDICINE 230 [place], [place] [phone] Key Gregory MD 230 [place], [place] [phone] Tinea versicolor Social History Tobacco Use Types [...] Description 12/26/2025 9:30 AM EST Office Visit [facility] MEDICINE 230 [place] [address] Daisha Crane MD 230 [place] [address] 01/07/2026 1:30 PM EDT Telemedicine [facility] MED & PEDS 505 [place] [address] Loyda Banda, SO 505 [place] [address] documented as of this encounter Goals Goal [...] as of this encounter Care Teams Manager Coding Relationship Specialty Start Date End Date Daisha Crane MD 230 [place] [address] PCP - General Family Medicine 11/01/18 Lisa Liao, Nidia 230 [place] [address] Pharmacist Internal Medicine 04/06/23 02/02/25 Alissa Santillan MD [address] [place] [address] Rheumatology 11/09/24 Sharon Guardado [address] 3rd [place] [address] Cardiology 11/13/24 Cedric Lujan MD [address] [place] [address] Orthopaedic Surgery 11/23/24 Rory Angeles MD [address] [place] [address] Pain Medicine 02/06/25 Jairon Crawford OD [facility] [address] [place] [address] Optometry 03/07/25 Laura Velarde MD Rheumatology 03/28/25 documented as of this encounter
--- OUTSIDE RECORDS SUMMARY | 2025-10-17 12:39 | XMS_ITS | Encounter Summary ---
Author Organization [employer] Address 75 [facility] 7t [place] [address] Care Team Providers Care Lunch Wagon Operator Name Role Phone Daisha Crane MD Primary Care Provider +1- [phone] Lisa Liao PharmD Unavailable Alissa Santillan MD Unavailable Sharon Guardado Unavailable Cedric Lujan MD Unavailable Rory Angeles MD Unavailable Jairon Crawford OD Unavailable Reason for Visit * Reason Comments Med Refill Encounter Details Date Type Department Care Team (Late st Contact Info) Description 09/03/2023 Refill [facility] MEDICINE [address] [place], [place] [phone] Key Gregory MD 230 [place], [place] [phone] Tinea versicolor Social History Tobacco Use Types [...] 9:30 AM EST Office Visit [facility] MEDICINE [address] [place] [address] Daisha Crane MD 230 [place] [address] 01/07/2026 1:30 PM EDT Telemedicine [facility] MED & PEDS 505 [place] [address] Loyda Banda, SO 505 [place] [address] documented as of this encounter Goals Goal [...] documented as of this encounter Care Teams Lunch Wagon Operator Relationship Specialty Start Date End Date Daisha Crane MD 230 [place] [address] PCP - General Family Medicine 11/01/18 Lisa Liao, Nidia 230 [place] [address] Pharmacist Internal Medicine 04/06/23 02/02/25 Alissa Santillan MD [address] [place] [address] Rheumatology 11/09/24 Sharon Guardado [address] 3rd [place] [address] Cardiology 11/13/24 Cedric Lujan MD [address] [place] [address] Orthopaedic Surgery 11/23/24 Rory Angeles MD [address] [place] [address] Pain Medicine 02/06/25 Jairon Crawford OD [facility] [address] [place] [address] Optometry 03/07/25 Laura Velarde MD Rheumatology 03/28/25 documented as of this encounter
--- OUTSIDE RECORDS SUMMARY | 2025-10-17 12:39 | XMS_ITS | Encounter Summary ---
Author Organization [employer] Address 75 [facility] 7t [place] [address] Care Team Providers Care Python Django Developer Name Role Phone Daisha Crane MD Primary Care Provider +1- [phone] Lisa Liao PharmD Unavailable Alissa Santillan MD Unavailable Sharon Guardado Unavailable Cedric Lujan MD Unavailable Rory Angeles MD Unavailable Jairon Crawford OD Unavailable Reason for Visit * Reason Onset Date Comments Med Refill 11/24/2023 Encounter Details Date Type Department Care Team (Late st Contact Info) Description 11/24/2023 Telephone [facility] MEDICINE 230 [place], [place] [phone] Daisha Crane MD [address] [place], [place] [phone] Med Refill Social History Tobacco Use Types [...] immediate release tablet To be sent to: [facility] - [place], [place] - [address] [place] [address] documented in this encounter Plan of Treatment Upcoming Encounters Date Type Department Care Team ([facility] st Contact Info) Description 12/26/2025 9:30 AM EST Office Visit [facility] MEDICINE 230 [place] [address] Daisha Crane MD 230 [place] [address] 01/07/2026 1:30 PM EDT Telemedicine [facility] CH[facility] MED & PEDS 505 [place] [address] Loyda Banda, RN 505 [place] [address] documented as of this encounter Goals Goal [...] documented as of this encounter Care Teams Python Django Developer Relationship Specialty Start Date End Date Daisha Crane MD 230 [place] [address] PCP - General Family Medicine 11/01/18 Lisa Liao PharmD 230 [place] [address] Pharmacist Internal Medicine 04/06/23 02/02/25 Alissa Santillan MD [address] [place] [address] Rheumatology 11/09/24 Sharon Guardado [address] 3rd [place] [address] Cardiology 11/13/24 Cedric Lujan MD [address] [place] [address] Orthopaedic Surgery 11/23/24 Rory Angeles MD [address] [place] [address] Pain Medicine 02/06/25 Jairon Crawford OD [facility] [address] [place] [address] Optometry 03/07/25 Laura Velarde MD Rheumatology 03/28/25 documented as of this encounter
--- OUTSIDE RECORDS SUMMARY | 2025-10-17 12:39 | XMS_ITS | Encounter Summary ---
Author Organization [employer] Address [address] [place] [address] 7t [place] [address] Care Team Providers Care Associate Account Director Name Role Phone Daisha Crane MD Primary Care Provider +- [phone] Lisa Liao PharmD Unavailable Alissa Santillan MD Unavailable Sharon Guardado Unavailable Cedric Lujan MD Unavailable Rory Angeles MD Unavailable Jairon Crawford OD Unavailable Encounter Details Date Type Department Care Team (Late st Contact Info) Description 10/22/2022 Orders Only [facility] [address] [place], [place] [phone] Radha Johnson LPN Social History Tobacco Use [...] Description 12/26/2025 9:30 AM EST Office Visit [facility] MEDICINE [address] [place], [place] [phone] Daisha Crane MD 230 [place], [place] [phone] 01/07/2026 1:30 PM EDT Telemedicine [facility] MED & PEDS [address] [place] [address] Loyda Banda, SO [address] [place] [address] documented as of this encounter Visit Diagnoses Not on filedocumented in this encounter Care Teams Associate Account Director Relationship Specialty Start Date End Date Daisha Crane MD 230 [place] [address] PCP - General Family Medicine 11/01/18 Lisa Liao, GenevaD 230 [place] [address] Pharmacist Internal Medicine 04/06/23 02/02/25 Alissa Santillan MD [address] [place] [address] Rheumatology 11/09/24 Sharon Guardado [address] 3rd [place] [address] Cardiology 11/13/24 Cedric Lujan MD [address] [place] [address] Orthopaedic Surgery 11/23/24 Rory Angeles MD [address] [place] [address] Pain Medicine 02/06/25 Jairon Crawford OD [facility] [address] [place] [address] Optometry 03/07/25 Laura Velarde MD Rheumatology 03/28/25 documented as of this encounter
--- OUTSIDE RECORDS SUMMARY | 2025-10-17 12:39 | XMS_ITS | Encounter Summary ---
Author Organization [employer] Address 75 [facility] 7t [place] [address] Care Team Providers Care Return To Vendor Name Role Phone Daisha Crane MD Primary Care Provider + [phone] Lisa Liao PharmD Unavailable Alissa Santillan MD Unavailable Sharon Guardado Unavailable Cedric Lujan MD Unavailable Rory Angeles MD Unavailable Jairon Crawford OD Unavailable Encounter Details Date Type Department Care Team (Late st Contact Info) Description 03/05/2023 Orders Only [facility] MEDICINE [address] [place] [phone] Radha Johnson LPN Social History Tobacco Use [...] Description 12/26/2025 9:30 AM EST Office Visit [facility] MEDICINE [address] [place] [address] Diasha Crane MD 230 [place] [address] 01/07/2026 1:30 PM EDT Telemedicine [facility] MED & PEDS 505 [place] [address] Loyda Banda, RN 505 [place] [address] documented as of this encounter Visit Diagnoses Not on filedocumented in this encounter Additional Health Concerns Assessment Noted Time PHQ-9 Depression Total Score: 0 11/23/19 10:39 AM EST documented as of this encounter Care Teams Return To Vendor Relationship Specialty Start Date End Date Daisha Crane MD [address] [place] [address] PCP - General Family Medicine 11/01/18 Lisa Liao, GenevaD [address] [place] [address] Pharmacist Internal Medicine 04/06/23 02/02/25 Alissa Santillan MD [address] [place] [address] Rheumatology 11/09/24 Sharon Guardado [address] 3rd [place] [address] Cardiology 11/13/24 Cedric Lujan MD [address] [place] [address] Orthopaedic Surgery 11/23/24 Rory Angeles MD [address] [place] [address] Pain Medicine 02/06/25 Jairon Crawford OD [facility] [address] [place] [address] Optometry 5/7/25 Laura Velarde MD Rheumatology 03/28/25 documented as of this encounter
--- OUTSIDE RECORDS SUMMARY | 2025-10-17 12:39 | XMS_ITS | Encounter Summary ---
Author Organization [employer] Address 75 [facility] 7t [place] [address] Care Team Providers Care Lead Consultant Name Role Phone Daisha Crane MD Primary Care Provider Lisa Liao PharmD Unavailable Alissa Santillan MD Unavailable Sharon Guardado Unavailable Cedric Lujan MD Unavailable Rory Angeles MD Unavailable Jairon Crawford OD Unavailable Encounter Details Date Type Department Care Team (Late st Contact Info) Description 11/19/2022 Orders Only [facility] MEDICINE [address] [place] [phone] Radha Johnson LPN Social History Tobacco Use [...] EST Office Visit [facility] MEDICINE [address] [place] [address] Daisha Crane MD 230 [place] [address] 01/07/2026 1:30 PM EDT Telemedicine [facility] MED & PEDS 505 [place] [address] Loyda Banda, RN 505 [place] [address] documented as of this encounter Visit Diagnoses Not on filedocumented in this encounter Care Teams Lead Consultant Relationship Specialty Start Date End Date Daisha Crane MD 230 [place] [address] PCP - General Family Medicine 11/01/18 Lisa Liao, GenevaD 230 [place] [address] Pharmacist Internal Medicine 04/06/23 02/02/25 Alissa Santillan MD [address] [place] [address] Rheumatology 11/09/24 Sharon Guardado [address] 3rd [place] [address] Cardiology 11/13/24 Cedric Lujan MD [address] [place] [address] Orthopaedic Surgery 11/23/24 Rory Angeles MD [address] [place] [address] Pain Medicine 02/06/25 Jairon Crawford OD [facility] [address] [place] [address] Optometry 03/07/25 Laura Velarde MD Rheumatology 03/28/25 documented as of this encounter
--- OUTSIDE RECORDS SUMMARY | 2025-10-17 12:39 | XMS_ITS | Encounter Summary ---
Author Organization [employer] Address 75 [facility] 7t [place] [address] Care Team Providers Care Personal Support Worker Name Role Phone Daisha Crane MD Primary Care Provider +1- [phone] Lisa Liao PharmD Unavailable [phone] Alissa Santillan MD Unavailable Sharon Guardado Unavailable Cedric Lujan MD Unavailable Rory Angeles MD Unavailable Jairon Crawford OD Unavailable Encounter Details Date Type Department Care Team (Late st Contact Info) Description 12/08/2022 Abstract [facility] MEDICINE 230 [place], [place] [phone] Daisha Crane MD 230 [place], [place] [phone] Social History Tobacco Use Types Packs/Day Years [...] Description 12/26/2025 9:30 AM EST Office Visit [facility] 230 [facility] [place] [address] Daisha Crane MD 230 [place] [address] 01/07/2026 1:30 PM EDT Telemedicine [facility] 505 [place], [place] [phone] Loyda Banda, SO 505 [place], [place] [phone] documented as of this encounter Procedures Procedure [...] documented as of this encounter Care Teams Personal Support Worker Relationship Specialty Start Date End Date Daisha rCane MD 230 [place] [address] PCP - General Family Medicine 11/01/18 Lisa Liao PharmD 230 [place] [address] Pharmacist Internal Medicine 04/06/23 02/02/25 Alissa Santillan MD [address] [place] [address] Rheumatology 11/09/24 Sharon Guardado [address] 3rd [place] [address] Cardiology 11/13/24 Cedric Lujan MD [address] [place] [address] Orthopaedic Surgery 11/23/24 Rory Angeles MD [address] [place] [address] Pain Medicine 02/06/25 Jairon Crawford OD [facility] [address] [place] [address] Optometry 03/07/25 Laura Velarde MD Rheumatology 03/28/25 documented as of this encounter
[2025-10-17 14:57] LABS: Alanine Aminotransferase 20 U/L (0-40); Albumin Level 4.5 g/dL (3.5-5.0); Alkaline Phosphatase 48 U/L (39-117); Anion Gap 13 (12-20); Aspartate Amino Transferase 31 U/L (5-37); Blood Urea Nitrogen 8 mg/dL (9-16); Calcium 9.5 mg/dL (8.4-10.2); Carbon Dioxide 27 mmol/L (22-29); Chloride 101 mmol/L (96-108); Estimated Glomerular Filt Rate > 60; Iron 33 mcg/dL (45-160); Percent Iron Saturation 11 % (15-50); Potassium 3.9 mmol/L (3.3-5.1); Sodium 137 mmol/L (135-145); Total Iron Binding Capacity 313 mcg/dL (228-428); Total Protein 6.4 g/dL (6.5-8.0); Unsaturated Iron Binding 280 ug/dL
[2025-10-17 15:15] LABS: Ferritin 21 ng/mL (20-250)
[2025-10-17 16:23] LABS: Folate > 20.0 ng/mL (> or = 4.0); Prostate Specific Antigen < 0.10 ng/mL (<0.05-4.0); Vitamin B12 434 pg/mL (200-900)
[2025-10-18 04:19] LABS: HIV Num 1 0.06 S/CO (0.00-0.99)
== END 2025-10-17 10:18 | disposition home or self-care (01) ==
LOC: HO.HHCL 10:17
PROVIDERS: PCP Family Medicine; Visit Provider Family Medicine
DX: Z11.4 Encounter for screening for human immunodeficiency virus [HIV] (principal); E11.9 Type 2 diabetes mellitus without complications; I10 Essential (primary) hypertension; R63.4 Abnormal weight loss; Z12.5 Encounter for screening for malignant neoplasm of prostate; Z85.46 Personal history of malignant neoplasm of prostate
CPT/HCPCS: 36415; 80048; 80076; 82043; 82570; 82607; 82728; 82746; 83540; 84153; 84443; 85025; 87389